=== PATIENT | female | born 1945 | race Caucasian/White ===

== ENCOUNTER → 2016-11-05 | Outpatient (REF) | payer MEDICARE, OTHER ==
[~2016-11-05] MED LIST: ALBU17IN INH; B COTAB8 PO; HYPROMELLOSE OU; LEVO88TA2 PO; LOMOTA PO; MUCI100L2 PO; MUCI600T34 PO; NEPH1CAP4 PO; NEUR100C OR; NEUR300C PO; OMEG100011 PO; POLYOPD OU; RENA800T OR; RENA800T7 PO; RENAGEL 800 MG OR; REST0.05 OU; SODIUM BICARBONATE OR; TETR250C3 PO; TYLE325T5 PO; VITACAP31 PO; [UNRECOGNIZED DRUG - CODE] IV; [UNRECOGNIZED DRUG - CODE] PO
[2016-11-05 21:05] LABS: IMMUNOGLOBULIN G 669 MG/DL (681-1648); IMMUNOGLOBULIN M 25.8 MG/DL (40-230); TOTAL PROTEIN 6.9 GM/DL (6.4-8.2)
[2016-11-07 14:00] LABS: ALBUMIN 4.28 GM/DL (3.29-5.55); ALBUMIN % 62.1 % (55.8-66.1); GAMMA GLOBULIN % 10.5 % (11.1-18.8)
[2016-11-08 00:06] LABS: BETA 2 MICROGLOBULIN 11.2 mg/L (0.6-2.4); FREE KAPPA LIGHT CHAINS SERUM 349.55 mg/L (3.30-19.40); FREE LAMBDA LIGHT CHAINS SERUM 51.8 mg/L (5.71-26.30); KAPPA/LAMBDA RATIO SERUM 6.75 (0.26-1.65)
== END ==
LOC: M LAB REF 16:54
PROVIDERS: ATTEND Internal Medicine Medical Oncology
DX: C90.01 Multiple myeloma in remission (principal)

== ENCOUNTER 2016-11-23 08:38 | Inpatient (IN) | payer MEDICARE, OTHER ==
[~2016-11-23] VITALS: Ht 162.6 cm; Wt 52.9 kg
[2016-11-23 10:36] LABS: BASO % 0.1 % (0.0-1.0); EOS # 0.1 K/mm3 (0.0-0.50); EOS % 1.9 % (0.0-3.0); LARGE UNSTAINED CELL # 0.1 K/mm3 (0.0-0.4); LARGE UNSTAINED CELL % 1.2 % (0.0-4.0); LYMPH # 0.4 K/mm3 (1.5-4.5); LYMPH % 8.7 % (24.0-44.0); MEAN CORPUSCULAR HEMOGLOBIN 35.1 pg (27.0-33.0); MEAN CORPUSCULAR HGB CONC 35.2 g/dl (32.0-36.5); MEAN CORPUSCULAR VOLUME 99.5 fl (80.0-96.0); MONO # 0.2 K/mm3 (0.0-0.8); MONO % 4.5 % (0.0-5.0); NEUTROPHILS # 3.4 K/mm3 (1.8-7.7); NEUTROPHILS % 83.7 % (36.0-66.0); PLATELET COUNT, AUTOMATED 140 k/mm3 (150-450); RED CELL DISTRIBUTION WIDTH 14.3 % (11.5-14.5); WHITE BLOOD COUNT 4.1 K/mm3 (4.0-10.0)
[2016-11-23 10:58] LABS: CALCIUM LEVEL 8.2 MG/DL (8.8-10.2); CREATININE FOR GFR 6.21 MG/DL (0.55-1.02); GLOMERULAR FILTRATION RATE 7.1 (>45); POTASSIUM SERUM 3.7 MEQ/L (3.5-5.1)
[2016-11-23] MEDS ORDERED: VITA200038 PO (12:38)
[2016-11-23] MEDS ORDERED: LEVO75TA4 PO (12:38)
[2016-11-23] MEDS ORDERED: KION15SU PO (12:38)
[2016-11-23] MEDS ORDERED: NORC5TAB PO (12:38)
[2016-11-23] MEDS ORDERED: RENV2TAB PO (12:38)
[2016-11-23] MEDS ORDERED: REST0.05 OU (12:38)
[2016-11-23] MEDS ORDERED: SOD POLYSTYRENE SULFONATE SUSP 15 GM/60 ML UD PO PRN (13:00)
[2016-11-23] MEDS ORDERED: ACETAMINOPHEN 325 MG TAB As Ordered ONE (13:39)
--- NOTE | 2016-11-23 13:43 | EDDOCDS ---
Nurse's Notes [facility] Name: Yoana Escobedo Age: 71 yrs Sex: Female : 1945 Arrival Date: 11/23/2016 Time: 08:38 Bed 7 Private MD: Diagnosis: End stage renal disease;Influenza due to other identified influenza virus;Weakness Presentation: 11/23 08:42 Presenting complaint: Patient states: weakness since Friday. skipped dialysis pml yesterday, wasn't feeling well - when pt called off of dialysis was told she should be seen in ED - pt refused. Suicide/Homicide risk assessment- the patient denies having any suicidal and/or homicidal ideations and does not present with any other emotional, behavioral or mental health complaints. Transition of care: patient was not received from another setting of care. 08:42 Acuity: LUIGI Level 3 pml 08:42 Method Of Arrival: Ambulance pml 08:49 Adult Sepsis Screening: The patient does not have new or worsening altered mentation. pml Patient's respiratory rate is less than 22. Systolic blood pressure is greater than 100. Patient has a qSOFA score of 0- Negative Sepsis Screen. 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 Triage Assessment: 08:51 General: Appears in no apparent distress, Behavior is appropriate for age, cooperative. pml Pain: Location: chest Pain currently is 5 out of 10 on a pain scale. The patient is triaged at the bedside. See Assessment in Nurses Notes section of ED record. Neurological: Level of Consciousness is awake, alert, Oriented to person, place, time. Cardiovascular: Capillary refill < 3 seconds Rhythm is sinus rhythm No ectopy. Respiratory: Airway is patent Respiratory effort is even, unlabored, Breath sounds are coarse Breath sounds with rhonchi in right posterior lower lobe Reports cough that is non-productive, hacking, persistent. GI: Abdomen is non- distended Ileostomy site is clean and dry. Ostomy appliance is intact. Derm: Skin is pink, warm & dry. Historical: - Allergies: Vancomycin; - Home Meds: 1. Renvela 800 mg oral tab 4 tabs 3 times per day 2. [place] 5-325 mg Oral tab 1 tab every 6 hours 3. levothyroxine 50 mcg Oral tab 1 tab once daily 4. Vitamin D3 2,000 unit oral tab daily ran out 5. Restasis 0.05 % ophthalmic dpet 1 drop 2 times per day - PMHx: Crohn's; ESRD; Hypothyroidism; Melanoma Rigth Arm; Multiple Myeloma; Rotator cuff injury; - PSHx: Colon Resection; Appendectomy; Ileostomy Construction; Dialysis Graft Construction, Arm; stem cell transplant; - Social history: Smoking status: Patient states former smoker of tobacco. No barriers to communication noted, The patient speaks fluent Maltese, Speaks appropriately for age. - Family history: Not pertinent. - : The pt / caregiver states he / she is not on anticoagulants. Home medication list is obtained from the patient. - Exposure Risk Screening:: None identified. Screenin:54 Screening information is obtained from the patient. Fall risk: No risks identified. pml Assistance ADL's: requires no assistance with activities of daily living. Abuse/DV Screen: The patient / caregiver reports he/she is: not in a situation that causes fear, pain or injury. Nutritional screening: No deficits noted. Advance Directives: Currently, there is no health care proxy. home support is adequate. Assessment: 10:29 General: Appears in no apparent distress, comfortable, Behavior is appropriate for age, pml cooperative. Pain: Location: chest Pain currently is 5 out of 10 on a pain scale. Neurological: Level of Consciousness is awake, alert, Oriented to person, place, time. Cardiovascular: Capillary refill < 3 seconds. Cardiovascular: Rhythm is sinus rhythm No ectopy. Respiratory: Airway is patent Respiratory effort is even, unlabored. Respiratory: Reports cough that is non-productive. GI: Abdomen is non- distended. Derm: Skin is pink, warm & dry. 11:46 Adult Sepsis Screening: The patient does not have new or worsening altered mentation. pml Patient's respiratory rate is less than 22. Systolic blood pressure is greater than 100. Patient has a qSOFA score of 0- Negative Sepsis Screen. General: resting on stretcher, eyes closed, resps easy and unlabored, skin p/w/d. sinus rhythm without ectopy. . 12:30 General: resting on stretcher resps easy and unlabored, skin p/w/d sinus rhythm on pml monitor without ectopy. voices no complaints. IVF infusing as ordered. 13:34 General: Appears in no apparent distress, comfortable, Behavior is appropriate for age, pml cooperative. Pain: Location: chest Pain currently is 5 out of 10 on a pain scale. Neurological: Level of Consciousness is awake, alert, Oriented to person, place, time. Cardiovascular: Capillary refill < 3 seconds. Respiratory: Airway is patent Respiratory effort is even, unlabored. GI: Abdomen is non- distended. Derm: Skin is pink, warm & dry. Vital Signs: 08:47 BP 130 / 61 (auto/); pml 08:49 Pulse 86 MON; Pulse Ox 98% ; pml 08:51 BP 130 / 61; Pulse 82; Resp 20; Temp 98.6(O); Pulse Ox 100% on R/A; Weight 53.98 kg pml (R); Height 5 ft. 4 in. (162.56 cm); Pain 5/10; 09:17 Pulse 76 MON; Pulse Ox 94% ; pml 09:17 BP 108 / 53 (auto/); pml 09:32 BP 104 / 55 (auto/); pml 09:33 Pulse 76 MON; Pulse Ox 96% ; pml 10:53 BP 112 / 54 Supine; Pulse 79; pml 10:53 BP 117 / 56 Sitting; Pulse 84; pml 10:53 BP 113 / 56 Standing; Pulse 89; pml 11:07 Pulse 76 MON; Pulse Ox 93% ; pml 11:07 BP 119 / 57 (auto/); pml 11:22 Pulse 86 MON; Pulse Ox 94% ; pml 11:22 BP 120 / 60 (auto/); pml 11:37 Pulse 78 MON; Pulse Ox 92% ; pml 11:37 BP 110 / 54 (auto/); pml 11:52 BP 113 / 56 (auto/); pml 11:53 Pulse 78 MON; Pulse Ox 92% ; pml 12:07 BP 123 / 58 (auto/); pml 12:08 Pulse 84 MON; Pulse Ox 94% ; pml 12:22 Pulse 80 MON; Pulse Ox 96% ; pml 12:22 BP 112 / 53 (auto/); pml 12:37 BP 129 / 62 (auto/); jo3 12:37 Pulse 80 MON; Pulse Ox 97% ; jo3 12:52 BP 121 / 56 (auto/); jo3 12:52 Pulse 76 MON; Pulse Ox 94% ; jo3 13:07 BP 132 / 61 (auto/); jo3 13:07 Pulse 80 MON; Pulse Ox 96% ; jo3 13:22 BP 121 / 58 (auto/); jo3 13:22 Pulse 82 MON; Pulse Ox 94% ; jo3 13:34 Temp 101.4; pml 08:51 Body Mass Index 20.43 (53.98 kg, 162.56 cm) pml Vitals: 08:51 Log In Time N/A - ambulance arrival. pml ED Course: 08:39 Patient visited by Nidia Orosco PCA. ar3 08:39 Patient moved to Waiting ar3 08:39 Patient moved to 7 ar3 08:44 Triage Initiated pml 08:50 Daja Rivers DO is PHCP. jo4 08:50 Jann Hanna MD is Attending Physician. jo4 08:54 Patient visited by Jesusita Wong RN. pml 09:45 Patient visited by Daja Rivers DO. jo4 09:45 Patient visited by Daja Rivers DO. jo4 10:22 [facility] Payment Agreement was scanned into [employer] and attached to record. lg 10:30 Patient visited by Jesusita Wong RN. pml 10:30 Patient visited by Jann Hanna MD. br1 10:33 EKG done. (by ED staff). Reviewed by Daja Rivers DO. nb2 10:34 Patient visited by Abeba Petit. nb2 10:37 Patient visited by Micaela Weathers PCA. rs6 10:54 The patient / caregiver is instructed regarding the plan of care and ED course. Patient pml has correct armband on for positive identification. Placed in gown. Bed in low position. Call light in reach. Side rails up X2. 10:54 Inserted peripheral IV: 20gauge IV in right hand and blood collected. Patient tolerated pml the procedure well. 10:55 Patient visited by Jesusita Wong RN. pml 10:55 -Influenza A&B Rapid Antigen - Nose Sent. pml 11:47 Patient visited by Jesusita Wong RN. pml 12:23 Rahel Vu is Hospitalizing Provider. jo4 12:31 Patient visited by Jesusita Wong RN. pml 13:29 Patient visited by Jackie Dorsey RN. jo3 13:34 No procedures done that require assistance. pml Administered Medications: 12:29 Drug: NS 0.9% 500 ml [sodium chloride 0.9 % injection solution] Route: IV; Rate: bolus; pml Site: right hand; 13:36 Follow up: IV Status: Completed infusion; IV Intake: 500ml pml 13:40 Drug: Acetaminophen 650 mg [acetaminophen 325 mg tablet (2 tabs)] Route: PO; pml Intake: 13:36 IV: 500.00ml; Total: 500.00ml. pml Order Results: Lab Order: TSH w/o Free T4; SPEC'M 11/23/16 10:27 Test: THYROID STIMULATING HORMONE; Value: 0.672; Range: 0.358-3.740; Units: uIU/ML; Status: F Lab Order: CBC with Diff; SPEC'M 11/23/16 10: Test: WHITE BLOOD COUNT; Value: 4.1; Range: 4.0-10.0; Units: K/mm3; Status: F Test: RED BLOOD COUNT; Value: 2.86; Range: 4.00-5.40; Abnormal: Below low normal; Units: M/mm3; Status: F Test: HEMOGLOBIN; Value: 10.0; Range: 12.0-16.0; Abnormal: Below low normal; Units: g/dl; Status: F Test: HEMATOCRIT; Value: 28.5; Range: 36.0-47.0; Abnormal: Below low normal; Units: %; Status: F Test: MEAN CORPUSCULAR VOLUME; Value: 99.5; Range: 80.0-96.0; Abnormal: Above high normal; Units: fl; Status: F Test: MEAN CORPUSCULAR HEMOGLOBIN; Value: 35.1; Range: 27.0-33.0; Abnormal: Above high normal; Units: pg; Status: F Test: MEAN CORPUSCULAR HGB CONC; Value: 35.2; Range: 32.0-36.5; Units: g/dl; Status: F Test: RED CELL DISTRIBUTION WIDTH; Value: 14.3; Range: 11.5-14.5; Units: %; Status: F Test: PLATELET COUNT, AUTOMATED; Value: 140; Range: 150-450; Abnormal: Below low normal; Units: k/mm3; Status: F Test: NEUTROPHILS %; Value: 83.7; Range: 36.0-66.0; Abnormal: Above high normal; Units: %; Status: F Test: LYMPH %; Value: 8.7; Range: 24.0-44.0; Abnormal: Below low normal; Units: %; Status: F Test: MONO %; Value: 4.5; Range: 0.0-5.0; Units: %; Status: F Test: EOS %; Value: 1.9; Range: 0.0-3.0; Units: %; Status: F Test: BASO %; Value: 0.1; Range: 0.0-1.0; Units: %; Status: F Test: LARGE UNSTAINED CELL %; Value: 1.2; Range: 0.0-4.0; Units: %; Status: F Test: NEUTROPHILS #; Value: 3.4; Range: 1.8-7.7; Units: K/mm3; Status: F Test: LYMPH #; Value: 0.4; Range: 1.5-4.5; Abnormal: Below low normal; Units: K/mm3; Status: F Test: MONO #; Value: 0.2; Range: 0.0-0.8; Units: K/mm3; Status: F Test: EOS #; Value: 0.1; Range: 0.0-0.50; Units: K/mm3; Status: F Test: BASO #; Value: 0.0; Range: 0.0-0.2; Units: K/mm3; Status: F Test: LARGE UNSTAINED CELL #; Value: 0.1; Range: 0.0-0.4; Units: K/mm3; Status: F Lab Order: [facility]; SPEC'M 11/23/16 10:27 Test: GLUCOSE, FASTING; Value: 97; Range: 80-110; Units: MG/DL; Status: F Test: BLOOD UREA NITROGEN; Value: 33; Range: 7-18; Abnormal: Above high normal; Units: MG/DL; Status: F Test: CREATININE FOR GFR; Value: 6.21; Range: 0.55-1.02; Abnormal: Above high normal; Units: MG/DL; Status: F Test: GLOMERULAR FILTRATION RATE; Value: 7.1; Range: >45; Abnormal: Below low normal; Status: F Test: SODIUM LEVEL; Value: 136; Range: 136-145; Units: MEQ/L; Status: F Test: POTASSIUM SERUM; Value: 3.7; Range: 3.5-5.1; Units: MEQ/L; Status: F Test: CHLORIDE LEVEL; Value: 94; Range: 98-107; Abnormal: Below low normal; Units: MEQ/L; Status: F Test: CARBON DIOXIDE LEVEL; Value: 28; Range: 21-32; Units: MEQ/L; Status: F Test: ANION GAP; Value: 14; Range: 8-16; Units: MEQ/L; Status: F Test: CALCIUM LEVEL; Value: 8.2; Range: 8.8-10.2; Abnormal: Below low normal; Units: MG/DL; Status: F Test Note: ; Units are mL/min/1.73 m2 Chronic Kidney Disease Staging per NKF: Stage I & II GFR >=60 Normal to Mildly Decreased Stage III GFR 30-59 Moderately Decreased Stage IV GFR 15-29 Severely Decreased Stage V GFR <15 Very Little GFR Left ESRD GFR <15 on PRN PHYSICAL THERAPIST Lab Order: Magnesium Level; SPEC'M 11/23/16 10:27 Test: MAGNESIUM LEVEL; Value: 2.0; Range: 1.8-2.4; Units: MG/DL; Status: F Lab Order: Cardiac Marker Panel; SPEC'M 11/23/16 10:27 Test: CPK CREATINE PHOSPHOKINASE; Value: 106; Range: 26-192; Units: U/L; Status: F Test: CK-MB VALUE MASS; Value: 1.0; Range: 0.0-3.6; Units: NG/ML; Status: F Test: MB/CK RELATIVE INDEX; Value: 0.94; Range: < OR =4; Status: F Test: TROPONIN I; Value: < 0.02; Range: < 0.10; Units: NG/ML; Status: F Test Note: ; DIAGNOSIS CRITERIA MMB ng/ml Relative Index (RI) NON-AMI < or = 5 N/A CRUZ ZONE > 5 < or = 4 AMI > 5 > 4 Lab Order: -Influenza A&B Rapid Antigen - Nose; SPEC'M 11/23/16 10:50 Test: INFLUENZA A RAPID SCR by ICA; Value: INFLUENZA A RESULTS NEGATIVE; Status: F Test: INFLUENZA A RAPID SCR by ICA; Value: Comments:; Status: F Test: INFLUENZA B RAPID SCR by ICA; Value: INFLUENZA B RESULTS POSITIVE; Abnormal: Abnormal; Status: F Test Note: ; The Influenza test is a direct rapid immunoassay for the qualitative detection of Influenza viral antigen. Cell culture (Viral Culture) testing should be considered to confirm NEGATIVE results and to assist in detecting other viruses that can provide similar clinical symptoms. Please contact the lab within 24 hours ([phone]) if confirmatory testing is desired. Outcome: 12:23 Decision to Hospitalize by Provider. jo4 13:34 Discharge Assessment: Patient awake, alert and oriented x 3. No cognitive and/or pml functional deficits noted. Patient verbalized understanding of disposition instructions. patient administered narcotics - no. The following High Risk Discharge criteria are identified: None. Admitted to Med/Surg accompanied by tech, via stretcher, on monitor, with chart. Condition: good Condition: stable. No special radiology studies were completed. Property :Personal belongings accompany Pt. 13:42 Patient left the ED. pml Signatures: Doni Pelaez Reg Reg lg Helmerci, Jennifer, RN RN jo3 Jann Hanna MD MD br1 Nidia Orosco, PUMP HOUSE OPERATOR PUMP HOUSE OPERATOR ar3 Jesusita Wong RN RN pml Micaela Weathers, PUMP HOUSE OPERATOR PUMP HOUSE OPERATOR rs6 Daja Rivers DO DO jo4 Abeba Petit2 MTDD
--- NOTE | 2016-11-23 13:43 | EDDOCDS ---
Physician Documentation [facility] Name: Yoana Escobedo Age: 71 yrs Sex: Female : 1945 Arrival Date: 11/23/2016 Time: 08:38 Bed 7 Private MD: Disposition: 11/23 13:04 I have independently interviewed and examined the patient, and I agree with the br1 investigation, diagnosis and treatment plan as documented by the Resident. Disposition: 11/23/16 12:23 Hospitalization ordered by Rahel Vu for Inpatient Admission. Preliminary diagnosis are End stage renal disease, Influenza due to other identified influenza virus, Weakness. - Bed requested for 5 Telles. - Status is Inpatient Admission. pml - Condition is Stable. - Problem is an ongoing problem. - Symptoms are unchanged. Historical: - Allergies: Vancomycin; - Home Meds: 1. Renvela 800 mg oral tab 4 tabs 3 times per day 2. [place] 5-325 mg Oral tab 1 tab every 6 hours 3. levothyroxine 50 mcg Oral tab 1 tab once daily 4. Vitamin D3 2,000 unit oral tab daily ran out 5. Restasis 0.05 % ophthalmic dpet 1 drop 2 times per day - PMHx: Crohn's; ESRD; Hypothyroidism; Melanoma Rigth Arm; Multiple Myeloma; Rotator cuff injury; - PSHx: Colon Resection; Appendectomy; Ileostomy Construction; Dialysis Graft Construction, Arm; stem cell transplant; - Social history: Smoking status: Patient states former smoker of tobacco. No barriers to communication noted, The patient speaks fluent Bolivian, Speaks appropriately for age. - Family history: Not pertinent. - : The pt / caregiver states he / she is not on anticoagulants. Home medication list is obtained from the patient. - Exposure Risk Screening:: None identified. Vital Signs: 08:47 BP 130 / 61 (auto/); pml 08:49 Pulse 86 MON; Pulse Ox 98% ; pml 08:51 BP 130 / 61; Pulse 82; Resp 20; Temp 98.6(O); Pulse Ox 100% on R/A; Weight 53.98 kg / pml 119.01 lbs (R); Height 5 ft. 4 in. (162.56 cm); Pain 5/10; 09:17 Pulse 76 MON; Pulse Ox 94% ; pml 09:17 BP 108 / 53 (auto/); pml 09:32 BP 104 / 55 (auto/); pml 09:33 Pulse 76 MON; Pulse Ox 96% ; pml 10:53 BP 112 / 54 Supine; Pulse 79; pml 10:53 BP 117 / 56 Sitting; Pulse 84; pml 10:53 BP 113 / 56 Standing; Pulse 89; pml 11:07 Pulse 76 MON; Pulse Ox 93% ; pml 11:07 BP 119 / 57 (auto/); pml 11:22 Pulse 86 MON; Pulse Ox 94% ; pml 11:22 BP 120 / 60 (auto/); pml 11:37 Pulse 78 MON; Pulse Ox 92% ; pml 11:37 BP 110 / 54 (auto/); pml 11:52 BP 113 / 56 (auto/); pml 11:53 Pulse 78 MON; Pulse Ox 92% ; pml 12:07 BP 123 / 58 (auto/); pml 12:08 Pulse 84 MON; Pulse Ox 94% ; pml 12:22 Pulse 80 MON; Pulse Ox 96% ; pml 12:22 BP 112 / 53 (auto/); pml 12:37 BP 129 / 62 (auto/); jo3 12:37 Pulse 80 MON; Pulse Ox 97% ; jo3 12:52 BP 121 / 56 (auto/); jo3 12:52 Pulse 76 MON; Pulse Ox 94% ; jo3 13:07 BP 132 / 61 (auto/); jo3 13:07 Pulse 80 MON; Pulse Ox 96% ; jo3 13:22 BP 121 / 58 (auto/); jo3 13:22 Pulse 82 MON; Pulse Ox 94% ; jo3 13:34 Temp 101.4; pml 08:51 Body Mass Index 20.43 (53.98 kg, 162.56 cm) pml MDM: 10:14 Orthostatic VS ordered. jo4 10:15 TSH w/o Free T4 Ordered. EDMS 10:15 CBC with Diff Ordered. EDMS 10:15 BMP Ordered. EDMS 10:15 Magnesium Level Ordered. EDMS 10:19 IV Saline Lock ordered. br1 10:19 Financial registration complete. lg 10:22 Cardiac Marker Panel Ordered. EDMS 10:22 Chest, 2 View (pa\E\lat) Ordered. EDMS 10:22 ECG WITH READING ER PHYS+CARDIAG ordered. EDMS 10:22 [facility] Payment Agreement was scanned into [employer] and attached to record. lg 10:32 UA Ordered. EDMS 10:32 Urine Culture Ordered. EDMS 10:33 Obtain sample by nasopharyngeal swab ordered. jo4 10:34 -Influenza A&B Rapid Antigen - Nose Ordered. EDMS 11:13 Cardiac Marker Panel Reviewed. jo4 11:13 CBC with Diff Reviewed. jo4 11:14 BMP Reviewed. jo4 11:14 TSH w/o Free T4 Reviewed. jo4 11:14 Magnesium Level Reviewed. jo4 11:15 -Influenza A&B Rapid Antigen - Nose Reviewed. jo4 12:01 BED REQUEST+ADM ordered. EDMS 12:22 NS 0.9% 500 ml IV at bolus once ordered. jo4 13:13 PHYSICAL THERAPY EVAL & TREAT ordered. EDMS 13:13 Admission / Observation Status ordered. EDMS 13:40 Acetaminophen Tablet 650 mg PO once ordered. pml Administered Medications: 12:29 Drug: NS 0.9% 500 ml [sodium chloride 0.9 % injection solution] Route: IV; Rate: bolus; pml Site: right hand; 13:36 Follow up: IV Status: Completed infusion; IV Intake: 500ml pml 13:40 Drug: Acetaminophen 650 mg [acetaminophen 325 mg tablet (2 tabs)] Route: PO; pml Signatures: Dispatcher [employer] EDMS Doni Pelaez, Reg Reg lg Jann Hanna MD MD br1 Jackie Peters RN RN jc4 Jesusita Wong RN RN pml Daja Rivers DO DO jo4 The chart was reviewed and I authenticate all verbal orders and agree with the evaluation and treatment provided.Attachments: 10:22 [facility] Payment Agreement lg MTDD
--- NOTE | 2016-11-23 14:50 | CR.PDOC ---
[facility] Consultation Consultation DATE OF ADMISSION: 11/23/2016 DATE OF CONSULTATION: 11/23/2016 REQUESTING PROVIDER: Dr. Rahel Vu REASON FOR CONSULTATION/CHIEF COMPLAINT: Management of end-stage renal disease on hemodialysis HISTORY OF PRESENT ILLNESS: Ms. Escobedo is a 71 year old female with past medical history significant for end-stage renal disease on hemodialysis Friday, Friday and Friday, multiple myeloma status post stem cell transplant , history of malignant melanoma removed from right arm, Crohn's disease status post colectomy and ileostomy, osteoarthritis, secondary hyperparathyroidism, anemia of chronic renal disease, chronic metabolic acidosis due to high output ileostomy, hypothyroidism, vitamin D deficiency who presents to the emergency department with complaints of weakness. Patient reports that her symptoms started this past Friday. She reports that she feels weak, tired and has decreased appetite. At home, she had a temperature of 102.3 which spontaneously resolved on its own without any medication. She also admits to dry cough and chest discomfort secondary to her cough. She reports decreased oral intake. She reports that 2 of her grandchildren were sick and she missed hemodialysis on Friday due to feeling ill. She reports that she got a flu shot and received a pneumonia shot just last week. Patient was found to have influenza and is being admitted into the hospital. Nephrology consult was requested secondary to patient needing maintenance hemodialysis. PAST MEDICAL HISTORY: 1. End-stage renal disease on hemodialysis Friday, Friday and Friday 2. History of multiple myeloma status post stem cell transplant, follows with Dr. Saab every 8 weeks 3. History of malignant melanoma, status post removal from right upper extremity 4. History of Crohn's disease status post colectomy and ileostomy 5. Secondary hyperparathyroidism 6. Anemia and chronic renal disease 7. History of osteoarthritis 8. History of chronic metabolic acidosis due to high output ileostomy 9. Hypothyroidism 10. Vitamin D deficiency PAST SURGICAL HISTORY: 1. Left upper extremity graft, in 2007 2. History of PermCath placement and removal 3. Ileostomy in 1980 4. Appendectomy 5. Stem cell transplant 6. Melanoma removal of right arm ALLERGIES: Vancomycin HOME MEDICATIONS: Please see below. SOCIAL HISTORY: She is a former smoker, quit in 1980. She denies any alcohol use or illicit drug use. She lives with her daughter and son-in-law. REVIEW OF SYSTEMS: CONSTITUTIONAL: Positive for fever, chills, weakness and fatigue. HEENT: No headache, lightheadedness, dizziness. No acute changes to vision or hearing. CARDIOVASCULAR: Admits to chest pressure with cough. No shortness of breath with exertion. No chronic lower extremity edema. No paroxysmal nocturnal dyspnea or orthopnea. RESPIRATORY: Positive for dry cough. No shortness of breath. No hemoptysis. GENITOURINARY: Admits to decreased urinary output. No dysuria or hematuria. MUSCULOSKELETAL: Has history of osteoarthritis and multiple myeloma. No acute unusual muscle or joint pains. GASTROINTESTINAL: No nausea, vomiting, diarrhea, abdominal pain. No hematochezia or melena. SKIN: No unusual rashes or skin lesions. NEUROLOGICAL: No syncope. Paresthesias. No history of CVA. ENDOCRINE: No history of diabetes or thyroid disorder. HEMATOLOGIC/LYMPHATIC: Excessive bruising or bleeding disorder. PHYSICAL EXAMINATION: VITAL SIGNS: Temperature 98.6, pulse 78, pressure 113/56, oxygen saturation 92% on room air, weight 53.98 KG, height 5 feet 4 inches GENERAL APPEARANCE: Alert and oriented 3. In no acute distress. HEENT: Normocephalic, atraumatic. Extraocular muscles are intact. Pupils are equally round and reactive to light. No scleral icterus. Dry mucosa. NECK: Supple. Trachea is midline. Mildly distended jugular veins. HEART: Normal S1, S2. Regular rate and rhythm. I did not appreciate a murmur. LUNGS: Positive for faint crackles. No wheezing appreciated. ABDOMEN: Soft, nontender, nondistended. Bowel sounds are present. She has an ileostomy in the right quadrant without any stool present in the bag. EXTREMITIES: No cyanosis or lower extremity edema. Positive pedal pulses bilaterally. NEUROLOGIC: No focal deficits. Cranial nerves II through XII are grossly intact. Motor and sensation intact. PSYCHIATRIC: Normal mood and affect. LABORATORY DATA: 11/23/16 10:27 Red Blood Count 2.86 L, Mean Corpuscular Volume 99.5 H, Mean Corpuscular Hemoglobin 35.1 H, Mean Corpuscular Hemoglobin Concent 35.2, Red Cell Distribution Width 14.3, Anion Gap 14, Carbon Dioxide Level 28, Calcium Level 8.2L, Creatine Kinase MB 1.0, Creatine Kinase MB Relative Index 0.94, Glomerular Filtration Rate 7.1L, Magnesium Level 2.0, Thyroid Stimulating Hormone (TSH) 0.672, Total Creatine Kinase 106, Troponin I < 0.02 MICROBIOLOGY: Influenza B positive. IMAGING: Chest x-ray done on 11/23 shows hyperinflation compatible with COPD, small amount of fibrotic scarring in right lower lobe, surgical clips in right axilla, left axillary intravascular stent, diffuse osteopenia with old compression fractures ASSESSMENT/PLAN: 1. End-stage renal disease on hemodialysis Friday, Friday and Friday. Patient missed her Friday session due to being ill. She will be dialyzed today. She usually receives maintenance dialysis without significant fluid removal. She will be given a 500ml bolus in the emergency department. We will give her another liter during dialysis. Electrolytes are stable and volume status will be monitored. 2. Influenza B. Supportive care, being managed by primary team. 3. Anemia and chronic renal failure. Hemoglobin is currently 10, which is right at target. 4. History of chronic metabolic acidosis due to high output ileostomy. Her bicarbonate is stable at this time. 5. Secondary hyperparathyroidism. Patient is on Renvela 3 times daily. 6. History of Crohn disease status post ileostomy. Output should be monitored as she appears dry. She will be given fluids. 7. History of multiple myeloma status post stem cell transplant. She follows with Dr. Saab about every 8 weeks. 8. Vitamin D deficiency. Patient is on vitamin supplementation. Thank you for the consultation and allowing us to participate in the care of Ms. Escobedo. We will continue to follow along with you. Allergies Coded Allergies: Vancomycin (Verified Allergy, Severe, RASH/ITCHING, 10/17/13) Home Medications Scheduled (Restasis) 0.05 % Emu 1 DROP OU BID (Reported) Cholecalciferol (Vitamin D-3) 2,000 Unit Tab 2,000 UNIT PO DAILY (Reported) Levothyroxine Sodium (Synthroid) 75 Mcg Tab 75 MCG PO DAILY (Reported) Sevelamer Carbonate (Renvela) 800 Mg Tab 4 TABS PO TID (Reported) Scheduled PRN Acetaminophen/Hydrocodone ([place] 5-325 mg) 1 Tab Tab 1 TAB PO Q6H PRN PRN PAIN ( Reported) Sodium Polystyrene Sulfonate (Kionex) 15 Gm/60 Ml Teena 15 GM PO ASDIRECTED PRN PRN HIGH POTASSIUM (Reported) GME ATTESTATION GME ATTESTATION My preceptor for this patient encounter was physically present in the building during the encounter and was fully available. As needed, all aspects of the patient interview, examination, medical decision making process, and medical care plan development were reviewed and approved by the preceptor. Preceptor is aware and concurs with the plan as stated in the body of this note and will attest to such by his/her cosignature. RENE HUDSON DO Nov 23, 2016 14:50
[2016-11-23] MEDS: NORCO, ANEXSIA 5/325MG TABLET (HYDROcodone/ACETAMINOPHEN) PO PRN (17:57)
[2016-11-23 18:00] VITALS: BP 121/59
[2016-11-23] MEDS ORDERED: (RENVELA) SEVELAMER **CARBONate** 800 MG TAB PO SCH (18:00)
[2016-11-23] MEDS: (RENVELA) SEVELAMER **CARBONate** 800 MG TAB PO SCH (18:31)
--- NOTE | 2016-11-23 19:31 | HPE ---
DATE OF ADMISSION: 11/23/2016 PRIMARY CARE PROVIDER: The patient goes to the [facility] ([place]). The patient also sees Dr. Mckenzie, Dr. Palacios, Dr. Granger and Dr. Licona. REASON FOR ADMISSION: Generalized weakness. HISTORY OF PRESENT ILLNESS: The patient is a 71-year-old female who presented to the emergency room complaining of weakness that started last Friday. She stated she was in bed all day on Friday, went to dialysis on Friday, came back, was still feeling generalized fatigue, went back to bed all of , and yesterday she missed her dialysis. She was instructed by the dialysis center to present to the emergency room. However, she did not wish to do so. This morning she woke up feeling weak still so she presented to the emergency room. In the emergency room, the patient was found to have positive influenza B test; however, since her symptoms started on Friday, she was not given Tamiflu at this time. Dr. Nelson was contacted from the emergency room, and he agreed to see the patient and dialyze her today. The patient was admitted under hospitalist service. She stated she has been having a dry cough and feeling generalized weakness. Denied any fevers or chills. Denied any nausea, vomiting or diarrhea. Denied any chest pain or shortness of breath. REVIEW OF SYSTEMS: [id number] review of systems obtained all of which was negative except for those mentioned above. PAST MEDICAL HISTORY: Significant for 1. Crohn's. 2. End-stage renal disease on hemodialysis. 3. Hypothyroidism. 4. Right melanoma in the right arm. 5. Multiple myeloma. 6. Rotator cuff injury. PAST SURGICAL HISTORY: Significant for 1. Colon resection. 2. Appendectomy. 3. Ileostomy bag. 4. Dialysis graft. 5. Stem cell transplant. SOCIAL HISTORY: The patient lives with her daughter. She used to smoke but quit 36 years ago and denies alcohol use. ALLERGIES: VANCOMYCIN - reaction itching and rash. HOME MEDICATIONS: - Renvela 800 mg three times a day - [place] 5/325 one tablet every six hours as needed for pain - levothyroxine 50 mcg by mouth daily - vitamin D 2000 units daily - Restasis one drop two times a day in each eye FAMILY HISTORY: Noncontributory. PHYSICAL FINDINGS: VITAL SIGNS: Blood pressure 130/61, pulse 86, respiratory rate 20, temperature 98.6, pulse oximetry 98% on room air. HEENT: Pupils equal, round, reactive to light and accommodation. NECK: Supple. No jugular venous distention (JVD). LUNGS: Clear to auscultation bilaterally. ABDOMEN: Soft, nontender, nondistended. CARDIAC: Regular rate and rhythm. ABDOMEN: Soft, nontender, nondistended. Ileostomy bag in place. No erythema or skin breakdown around the ileostomy site. EXTREMITIES: No clubbing, cyanosis or edema. NEUROLOGIC: Cranial nerves II-XII grossly intact. No focal deficits. LABORATORY FINDINGS: WBC 4.1, hemoglobin 10, hematocrit 28.8, platelet count 140. Sodium 136, potassium 3.4, chloride 94, BUN 33, creatinine 6.21, fasting glucose 97, calcium 8.2, magnesium 2. Troponin less than 0.02. TSH 0.672. IMAGING: Chest x-ray was done in the emergency room which showed hyperinflation compatible with COPD. Small amount of fibrotic scarring seen in the right lower lobe. Diffuse osteopenia, old compression fracture and prior kyphosis and history of multiple myeloma. ASSESSMENT AND PLAN: 1. Generalized fatigue, likely secondary to influenza. The patient is positive for flu B; is currently out of the treatments window for Tamiflu. We will continue to monitor. 2. History of end-stage renal disease. The patient missed dialysis yesterday. Her schedule is Friday, Friday, Friday. She went to dialysis on Friday but did not go on Friday. Dr. Nelson agreed to see the patient and will dialyze her today. 3. Positive influenza B 4. Hypothyroidism. Continue the patient's home medication. 5. History of multiple myeloma diagnosed in 2007. She underwent stem cell transplant and has been in remission ever since. 6. History of Crohn's disease. The patient follows up with Dr. Licona about once a year. She has an ileostomy bag with no dysfunction at this time. 7. History of rotator cuff injury, currently stable. 8. Deep venous thrombosis (DVT) prophylaxis; sequential compression devices (SCDs) while in bed.
[2016-11-23 22:00] VITALS: BP 110/64
--- NOTE | 2016-11-23 22:51 | REP ---
PA and lateral chest 11/23/2016 Indication: Cough Comparison: PA and lateral chest 08/16/2015 Findings: Cardiac silhouette is of normal size. Atherosclerotic changes are noted in the aortic arch. There is mild hyperinflation and flattening of diaphragms consistent with COPD. Nipple shadows are projected over lower lung george bilaterally. Multiple surgical clips are present within the right axilla. Axillary vascular stent is noted without change. There is diffuse osteopenia. Patient has had previous kyphoplasties at approximately T11, T12, L1 Impression: Hyperinflation compatible with COPD. Small amount of fibrotic scarring is seen within the right lower lobe. Surgical clips in right axilla. Left axillary intravascular stent Diffuse osteopenia with old compression fractures and prior kyphoplasties as above. The patient has history of multiple myeloma. Signed by Radha Fournier MD 11/23/2016 10:43 P
[2016-11-24] MEDS: LEVOTHYROXINE 0.075 MG TAB (75 MCG) PO SCH (05:40)
[2016-11-24 06:00] VITALS: BP 108/54
[2016-11-24] MEDS: ACETAMINOPHEN TAB 650MG DOSE (2X325MG) PO PRN ×2 (06:45→14:32)
[2016-11-24 06:52] LABS: BASO % 0.2 % (0.0-1.0); EOS % 0.6 % (0.0-3.0); LARGE UNSTAINED CELL # 0.1 K/mm3 (0.0-0.4); LARGE UNSTAINED CELL % 1.4 % (0.0-4.0); LYMPH # 0.6 K/mm3 (1.5-4.5); LYMPH % 13.3 % (24.0-44.0); MEAN CORPUSCULAR HEMOGLOBIN 34.8 pg (27.0-33.0); MEAN CORPUSCULAR HGB CONC 34.8 g/dl (32.0-36.5); MONO # 0.1 K/mm3 (0.0-0.8); MONO % 3.3 % (0.0-5.0); NEUTROPHILS # 3.4 K/mm3 (1.8-7.7); NEUTROPHILS % 81.2 % (36.0-66.0); PLATELET COUNT, AUTOMATED 124 k/mm3 (150-450); RED CELL DISTRIBUTION WIDTH 14.7 % (11.5-14.5); WHITE BLOOD COUNT 4.2 K/mm3 (4.0-10.0)
[2016-11-24 06:55] LABS: ALBUMIN 3.2 GM/DL (3.2-5.2); ALBUMIN/GLOBULIN RATIO 0.97 (1.00-1.93); BILIRUBIN,TOTAL 1.1 MG/DL (0.2-1.0); CALCIUM LEVEL 8.6 MG/DL (8.8-10.2); CREATININE FOR GFR 4.16 MG/DL (0.55-1.02); GLOMERULAR FILTRATION RATE 11.3 (>45); MAGNESIUM LEVEL 1.8 MG/DL (1.8-2.4); TOTAL PROTEIN 6.5 GM/DL (6.4-8.2)
[2016-11-24] MEDS ORDERED: OSELTAMIVIR 6 MG/ML 60ML SUSP PO SCH ×2 (07:30→09:15)
[2016-11-24] MEDS ORDERED: guaiFENesin SYRUP 200 MG/10 ML UDC PO PRN (08:00)
[2016-11-24] MEDS: guaiFENesin ER 600 MG TAB PO SCH ×2 (08:28→21:12)
[2016-11-24] MEDS: (RENVELA) SEVELAMER **CARBONate** 800 MG TAB PO SCH ×3 (08:28→18:04)
[2016-11-24] MEDS: AZITHROMYCIN INJ 500 MG, VIAL MATE ADAPTER 1 EACH in D5W 250 ML IV SCH (08:28)
[2016-11-24] MEDS: VITAMIN D 1,000 INTERNATIONAL UNITS TABLET PO SCH (08:28)
[2016-11-24] MEDS: HEPARIN SOD (PORCINE) 5000 UNITS/ML VIAL SQ SCH ×2 (08:29→21:12)
[2016-11-24] MEDS ORDERED: OSELTAMIVIR 6 MG/ML 60ML SUSP PO ONE (09:00)
[2016-11-24] MEDS: cefTRIAXone SOD 1 GM in D5W MINI-BAG PLUS 50 ML IV SCH (10:08)
--- NOTE | 2016-11-24 13:00 | ECGEPIP ---
Stationary ECG Study [facility] - ED Test Date: 2016-11-23 Pat Name: AD JOHNSTON Department: Room: - Gender: F Multigrapher: aldo : 1945 Requested By: EUGENIO ANDREW Order Number: [id number] Reading MD: Peyton Vickers Measurements Intervals [place] Rate: 72 P: 48 WA: 120 QRS: 63 QRSD: 89 T: 60 QT: 410 QTc: 451 Interpretive Statements SINUS RHYTHM NSTTW ABNORMALITY INCREASED RATE 06/24/16 Electronically Signed On 11-24-2016 13:00:21 EST by Peyton Vickers
--- NOTE | 2016-11-24 13:46 | IPN ---
DATE OF SERVICE: 11/24/2016 SUBJECTIVE: The patient was seen and examined at the bedside today in the morning. She continues to have a cough with some shortness of breath. She was just started on antibiotics this morning. The patient got the hemodialysis done yesterday; and because of her volume depletion and dehydration, because of sickness and history of high-output ileostomy, she was given 1 liter of intravenous (IV) fluid during the hemodialysis procedure. Hemodialysis just done for clearance. Last 24 hour urines were noted. The patient continues to have fever spikes at this time, as well. REVIEW OF SYSTEMS: The patient continues to complain of fever with chills and rigors. She continues to have cough with phlegm and some shortness of breath. She denies any chest pain. She denies any pain abdomen. She denies any ileostomy diarrhea. She does report some muscle aches and pains. The rest of review of systems is negative. OBJECTIVE: Vital signs: Temperature is 102.2 degree Fahrenheit, blood pressure is 108/54, pulse is 94, respiratory rate of 18, saturating 91% on room air. Intake and output: Urine output recorded as 150 mL yesterday, and her stool output was 300 mL today. Her weight in the bed scale is 54.8 kg. PHYSICAL EXAMINATION: General: The patient is awake, alert, oriented times three, lying in bed, in mild respiratory distress. Head and neck examination: Extraocular muscles intact. Pupils equally round and reactive to light. Mucous membranes are moist. Neck is supple. There is no jugular venous distention (JVD). Cardiovascular: S1, S2, regular rate. No murmur, rub, and gallop. Respiratory: The patient has mild inspiratory crackles at the bases. Otherwise, no significant rales or rhonchi. Bilateral equal air entry. Abdomen: Soft, positive bowel sounds, nontender. She has a right lower quadrant ileostomy and some liquid stools are present in the ileostomy at this time. Extremities: No clubbing or cyanosis. No edema of the bilateral lower extremities. Pulses are 2+. Central nervous system (NEW[employer]ENDOR): Power is 5/5 in all extremities at this time. There is no focal neurological deficit. Psychiatric: Normal mood and affect. LABORATORY REVIEW: CBC showed a WBC of 4.2, hemoglobin 9.4, platelets are 124. BMP showed a sodium of 136, potassium 4, chloride 97, bicarbonate 29, BUN 17, creatinine 4.1, albumin is 3.2. MICROBIOLOGY: Blood culture is pending. Urine culture is negative. Nasopharynx rapid flu test came back positive for influenza B. CURRENT MEDICATIONS: The patient's medications include: - intravenous (IV) azithromycin - IV Rocephin - Tylenol as needed - Mucinex as needed - heparin subcutaneous - levothyroxine 75 mcg by mouth daily - Tamiflu 30 mg by mouth once and then 30 mg by mouth with each dialysis - Renvela 3.2 grams by mouth with meals - vitamin D 2000 units by mouth daily ASSESSMENT: Ms. Escobedo is a 71-year-old female with past medical history of end-stage renal disease on hemodialysis every Friday, Friday, Friday, who was admitted yesterday because of pneumonia secondary to influenza B. Nephrology service following the patient for management of end-stage renal disease. PLAN: 1. Influenza B pneumonia. The patient is still having fever spikes and severe cough. She was started on Tamiflu 30 mg by mouth. One dose was given. She has also been empirically started on Rocephin and azithromycin for coverage of bacterial infection. Continue the current dose at this time. 2. End-stage renal disease, on hemodialysis. The patient's regular hemodialysis days are Friday, Friday, and Friday. She missed the Friday dialysis. She got her dialysis done yesterday. Next hemodialysis session will be tomorrow. 3. Anemia in end-stage renal disease. The patient's hemoglobin is 9.4 at this time. She will get a dose of Aranesp with hemodialysis tomorrow. 4. Chronic kidney disease, mineral bone disease. Continue current dose of Renvela three times a day with meals for hyperphosphatemia. 5. History of Crohn disease, status post ileostomy. The patient does not have any ileostomy diarrhea or higher output from the ileostomy at this time. She was dehydrated and volume depleted. She was given intravenous (IV) fluids hydration yesterday, and her stool output is normal at this time.
[2016-11-24 14:00] VITALS: BP 78/30
[2016-11-24 14:37] VITALS: BP 110/42
[2016-11-24] MEDS: [UNRECOGNIZED DRUG - REMARK] XX SCH (15:29)
--- NOTE | 2016-11-24 20:51 | IPN ---
DATE: 11/24/2016 Patient is seen and examined. Febrile overnight. Continues to have significant cough productive of phlegm, white and yellow, with fevers. Denies any chest pain, pressure, or discomfort. Denies any nausea or vomiting. VITAL SIGNS: Maximum temperature (T-max) 102.9, current temperature (T-current) 99.7, pulse 80, respirations 16, blood pressure 110/42, pulse oximetry 95% on room air. LABORATORY DATA: WBC 12.2, hemoglobin and hematocrit 9.4/26.9, platelets 124. Sodium 136, potassium 4, bicarbonate 29, chloride 97, BUN 17, creatinine 4.16. Influenza B positive. PHYSICAL EXAMINATION: GENERAL: Patient comfortable with cough productive of mucus, yellow and milky, in no acute distress. HEENT: Normocephalic, atraumatic. Pupils equal, round, and reactive. NECK: Supple. PULMONARY: Bilateral rhonchi. CARDIAC: Regular rate and rhythm. Normal S1, S2. ABDOMEN: Soft, nontender, nondistended. Ileostomy bag in place. No erythema or skin breakdown. EXTREMITIES: No edema bilateral lower extremities. ASSESSMENT AND PLAN: This is a 71-year-old female patient with underlying medical history of Crohn's disease, end-stage renal disease on hemodialysis, hypothyroidism, melanoma of right arm, multiple myeloma, rotator cuff injury, with colostomy, admitted for influenza with possible overlying superimposed community-acquired bacterial pneumonia. 1. Influenza with possible overlying superimposed community-acquired bacterial pneumonia. Tamiflu. Case discussed with Dr. Nelson, service advisor. Given patient's condition quite severe, will still treat with Tamiflu even though patient was outside the window. Empirically started Rocephin and azithromycin. Methicillin-resistant Staphylococcus aureus (MRSA) screening. Continue to follow C-reactive protein. 2. End-stage renal disease. Patient missed dialysis. Had dialysis on Friday. Will resume Friday, Friday, Friday dialysis schedule. Nephrology consulted. 3. Hypothyroidism. Continue home medication. 4. History of multiple myeloma 2007. As per patient, underwent stem cell transplant and has been in remission ever since. Will continue to follow. 5. Crohn's disease. Patient follows with Dr. Licona. Has an ileostomy bag with no dysfunction at this time. Outpatient followup. 6. History of rotator cuff injury. Currently stable. 7. Deep venous thrombosis (DVT) prophylaxis. Heparin subcutaneous. DISPOSITION PLANNING: Pending clinical improvement, physical therapy.
[2016-11-24] MEDS: NORCO, ANEXSIA 5/325MG TABLET (HYDROcodone/ACETAMINOPHEN) PO PRN (21:13)
[2016-11-24 22:00] VITALS: BP 104/52
[2016-11-25] MEDS: LEVOTHYROXINE 0.075 MG TAB (75 MCG) PO SCH (05:36)
[2016-11-25 06:00] VITALS: BP 92/48
[2016-11-25 06:43] LABS: BASO % 0.1 % (0.0-1.0); EOS % 0.9 % (0.0-3.0); LARGE UNSTAINED CELL # 0.1 K/mm3 (0.0-0.4); LARGE UNSTAINED CELL % 2.1 % (0.0-4.0); LYMPH % 20.5 % (24.0-44.0); MEAN CORPUSCULAR HEMOGLOBIN 34.8 pg (27.0-33.0); MEAN CORPUSCULAR HGB CONC 34.8 g/dl (32.0-36.5); MEAN CORPUSCULAR VOLUME 100.1 fl (80.0-96.0); MONO # 0.2 K/mm3 (0.0-0.8); MONO % 3.1 % (0.0-5.0); NEUTROPHILS # 3.6 K/mm3 (1.8-7.7); NEUTROPHILS % 73.3 % (36.0-66.0); PLATELET COUNT, AUTOMATED 136 k/mm3 (150-450); RED CELL DISTRIBUTION WIDTH 14.8 % (11.5-14.5); WHITE BLOOD COUNT 4.8 K/mm3 (4.0-10.0)
[2016-11-25 07:11] LABS: ALBUMIN 3.3 GM/DL (3.2-5.2); ALBUMIN/GLOBULIN RATIO 1.14 (1.00-1.93); BILIRUBIN,TOTAL 0.8 MG/DL (0.2-1.0); CALCIUM LEVEL 8.2 MG/DL (8.8-10.2); CREATININE FOR GFR 5.51 MG/DL (0.55-1.02); GLOMERULAR FILTRATION RATE 8.2 (>45); MAGNESIUM LEVEL 2.1 MG/DL (1.8-2.4); POTASSIUM SERUM 3.6 MEQ/L (3.5-5.1); TOTAL PROTEIN 6.2 GM/DL (6.4-8.2)
[2016-11-25] MEDS ORDERED: DARBEPOETIN 100 MCG/0.5 ML *DIALYSIS* SYRINGE (J0882) IV SCH (08:00)
[2016-11-25] MEDS: guaiFENesin ER 600 MG TAB PO SCH ×2 (08:09→20:15)
[2016-11-25] MEDS: (RENVELA) SEVELAMER **CARBONate** 800 MG TAB PO SCH ×3 (08:09→17:24)
[2016-11-25] MEDS: HEPARIN SOD (PORCINE) 5000 UNITS/ML VIAL SQ SCH ×2 (08:09→20:14)
[2016-11-25] MEDS: AZITHROMYCIN INJ 500 MG, VIAL MATE ADAPTER 1 EACH in D5W 250 ML IV SCH (08:09)
[2016-11-25] MEDS: cefTRIAXone SOD 1 GM in D5W MINI-BAG PLUS 50 ML IV SCH (08:10)
[2016-11-25] MEDS: TUSSICAPS ER 10/8MG CAPSULE PO SCH ×2 (08:10→20:15)
[2016-11-25] MEDS: VITAMIN D 1,000 INTERNATIONAL UNITS TABLET PO SCH (08:10)
[2016-11-25] MEDS ORDERED: HEPARIN 1,000 UNITS/ML 10ML VIAL (FOR RADIOLOGY& DIALYSIS ONLY) XX ONE (11:15)
--- NOTE | 2016-11-25 13:51 | IPN ---
DATE OF SERVICE: 11/25/2016 Mrs. Turner is seen this morning during hemodialysis. She was admitted with shortness of breath and cough and is currently being treated for influenza. She continues to have persistent cough and feels short of breath. She is also very weak and has not been eating well. She reports slight improvement in her appetite. She denies any vomiting or diarrhea. She has no fever or chills. On physical exam today, her temperature is 99.9 degrees Fahrenheit. Heart rate 70 per minute and respiratory rate 18 per minute. Blood pressure 92/48 mmHg and oxygen saturation 95%. She looks quite weak and exhausted. Head is atraumatic. Ears, nose and throat are unremarkable. Lungs have bilateral rhonchi. Heart sounds are regular. Abdomen soft and nontender and without palpable organomegaly. Bowel sounds are normal. Extremities have no cyanosis or clubbing. Skin has no rash or ulcers. Neurologically, she is awake, alert and oriented times three. She has no focal neurological deficit. Today's labs show WBC count 4.8, hemoglobin 10.0 and hematocrit 28.7. Platelets 136. Sodium is 135 and potassium 3.6. BUN 29 and creatinine 5.5. C-reactive protein is 7.0. Total protein 6.2 and albumin 3.3. Problems: 1. End-stage renal disease. Patient is currently being dialyzed. Her volume status is usually well compensated. Only minimal amount of fluid to be moved. Today, we are not removing any fluid due to hypotension. She is tolerating her dialysis treatment well. 2. Influenza with possible superimposed community-acquired pneumonia. Patient is currently being treated with Tamiflu and intravenous Rocephin. She has only low grade fever and we will continue to monitor her closely. 3. History of Crohn disease. Patient has an ileostomy and is functioning well. At present, she is at about her baseline. 4. History of multiple myeloma. Her multiple myeloma has been in remission. She is currently being monitored without any active treatment. 5. Hypothyroidism. The patient will continue with her chronic Synthroid replacement. 6. Anemia. Patient receives Aranesp 100 mcg once a week during dialysis. Her anemia is stable at present.
[2016-11-25 14:00] VITALS: BP 92/55
--- NOTE | 2016-11-25 14:43 | EDDOCDS ---
Nurse's Notes [facility] Name: Yoana Escobedo Age: 71 yrs Sex: Female : 1945 Arrival Date: 11/23/2016 Time: 08:38 Bed 7 Private MD: Diagnosis: End stage renal disease;Influenza due to other identified influenza virus;Weakness Presentation: 11/23 08:42 Presenting complaint: Patient states: weakness since Friday. skipped dialysis pml yesterday, wasn't feeling well - when pt called off of dialysis was told she should be seen in ED - pt refused. Suicide/Homicide risk assessment- the patient denies having any suicidal and/or homicidal ideations and does not present with any other emotional, behavioral or mental health complaints. Transition of care: patient was not received from another setting of care. 08:42 Acuity: LUIGI Level 3 pml 08:42 Method Of Arrival: Ambulance pml 08:49 Adult Sepsis Screening: The patient does not have new or worsening altered mentation. pml Patient's respiratory rate is less than 22. Systolic blood pressure is greater than 100. Patient has a qSOFA score of 0- Negative Sepsis Screen. Status: Patient is not a service advocate contact or dependent. Triage Assessment: 08:51 General: Appears in no apparent distress, Behavior is appropriate for age, cooperative. pml Pain: Location: chest Pain currently is 5 out of 10 on a pain scale. The patient is triaged at the bedside. See Assessment in Nurses Notes section of ED record. Neurological: Level of Consciousness is awake, alert, Oriented to person, place, time. Cardiovascular: Capillary refill < 3 seconds Rhythm is sinus rhythm No ectopy. Respiratory: Airway is patent Respiratory effort is even, unlabored, Breath sounds are coarse Breath sounds with rhonchi in right posterior lower lobe Reports cough that is non-productive, hacking, persistent. GI: Abdomen is non- distended Ileostomy site is clean and dry. Ostomy appliance is intact. Derm: Skin is pink, warm & dry. Historical: - Allergies: Vancomycin; - Home Meds: 1. Renvela 800 mg oral tab 4 tabs 3 times per day 2. [place] 5-325 mg Oral tab 1 tab every 6 hours 3. levothyroxine 50 mcg Oral tab 1 tab once daily 4. Vitamin D3 2,000 unit oral tab daily ran out 5. Restasis 0.05 % ophthalmic dpet 1 drop 2 times per day - PMHx: Crohn's; ESRD; Hypothyroidism; Melanoma Rigth Arm; Multiple Myeloma; Rotator cuff injury; - PSHx: Colon Resection; Appendectomy; Ileostomy Construction; Dialysis Graft Construction, Arm; stem cell transplant; - Social history: Smoking status: Patient states former smoker of tobacco. No barriers to communication noted, The patient speaks fluent [place] Citizen, Speaks appropriately for age. - Family history: Not pertinent. - : The pt / caregiver states he / she is not on anticoagulants. Home medication list is obtained from the patient. - Exposure Risk Screening:: None identified. Screenin:54 Screening information is obtained from the patient. Fall risk: No risks identified. pml Assistance ADL's: requires no assistance with activities of daily living. Abuse/DV Screen: The patient / caregiver reports he/she is: not in a situation that causes fear, pain or injury. Nutritional screening: No deficits noted. Advance Directives: Currently, there is no health care proxy. home support is adequate. Assessment: 10:29 General: Appears in no apparent distress, comfortable, Behavior is appropriate for age, pml cooperative. Pain: Location: chest Pain currently is 5 out of 10 on a pain scale. Neurological: Level of Consciousness is awake, alert, Oriented to person, place, time. Cardiovascular: Capillary refill < 3 seconds. Cardiovascular: Rhythm is sinus rhythm No ectopy. Respiratory: Airway is patent Respiratory effort is even, unlabored. Respiratory: Reports cough that is non-productive. GI: Abdomen is non- distended. Derm: Skin is pink, warm & dry. 11:46 Adult Sepsis Screening: The patient does not have new or worsening altered mentation. pml Patient's respiratory rate is less than 22. Systolic blood pressure is greater than 100. Patient has a qSOFA score of 0- Negative Sepsis Screen. General: resting on stretcher, eyes closed, resps easy and unlabored, skin p/w/d. sinus rhythm without ectopy. . 12:30 General: resting on stretcher resps easy and unlabored, skin p/w/d sinus rhythm on pml monitor without ectopy. voices no complaints. IVF infusing as ordered. 13:34 General: Appears in no apparent distress, comfortable, Behavior is appropriate for age, pml cooperative. Pain: Location: chest Pain currently is 5 out of 10 on a pain scale. Neurological: Level of Consciousness is awake, alert, Oriented to person, place, time. Cardiovascular: Capillary refill < 3 seconds. Respiratory: Airway is patent Respiratory effort is even, unlabored. GI: Abdomen is non- distended. Derm: Skin is pink, warm & dry. Vital Signs: 08:47 BP 130 / 61 (auto/); pml 08:49 Pulse 86 MON; Pulse Ox 98% ; pml 08:51 BP 130 / 61; Pulse 82; Resp 20; Temp 98.6(O); Pulse Ox 100% on R/A; Weight 53.98 kg pml (R); Height 5 ft. 4 in. (162.56 cm); Pain 5/10; 09:17 Pulse 76 MON; Pulse Ox 94% ; pml 09:17 BP 108 / 53 (auto/); pml 09:32 BP 104 / 55 (auto/); pml 09:33 Pulse 76 MON; Pulse Ox 96% ; pml 10:53 BP 112 / 54 Supine; Pulse 79; pml 10:53 BP 117 / 56 Sitting; Pulse 84; pml 10:53 BP 113 / 56 Standing; Pulse 89; pml 11:07 Pulse 76 MON; Pulse Ox 93% ; pml 11:07 BP 119 / 57 (auto/); pml 11:22 Pulse 86 MON; Pulse Ox 94% ; pml 11:22 BP 120 / 60 (auto/); pml 11:37 Pulse 78 MON; Pulse Ox 92% ; pml 11:37 BP 110 / 54 (auto/); pml 11:52 BP 113 / 56 (auto/); pml 11:53 Pulse 78 MON; Pulse Ox 92% ; pml 12:07 BP 123 / 58 (auto/); pml 12:08 Pulse 84 MON; Pulse Ox 94% ; pml 12:22 Pulse 80 MON; Pulse Ox 96% ; pml 12:22 BP 112 / 53 (auto/); pml 12:37 BP 129 / 62 (auto/); jo3 12:37 Pulse 80 MON; Pulse Ox 97% ; jo3 12:52 BP 121 / 56 (auto/); jo3 12:52 Pulse 76 MON; Pulse Ox 94% ; jo3 13:07 BP 132 / 61 (auto/); jo3 13:07 Pulse 80 MON; Pulse Ox 96% ; jo3 13:22 BP 121 / 58 (auto/); jo3 13:22 Pulse 82 MON; Pulse Ox 94% ; jo3 13:34 Temp 101.4; pml 08:51 Body Mass Index 20.43 (53.98 kg, 162.56 cm) pml Vitals: 08:51 Log In Time N/A - ambulance arrival. pml ED Course: 08:39 Patient visited by Nidia Orosco PCA. ar3 08:39 Patient moved to Waiting ar3 08:39 Patient moved to 7 ar3 08:44 Triage Initiated pml 08:50 Daja Rivers DO is PHCP. jo4 08:50 Jann Hanna MD is Attending Physician. jo4 08:54 Patient visited by Jesusita Wong RN. pml 09:45 Patient visited by Daja Rivers DO. jo4 09:45 Patient visited by Daja Rivers DO. jo4 10:22 [facility] [place] into [employer] and attached to record. lg 10:30 Patient visited by Jesusita Wong RN. pml 10:30 Patient visited by Jann Hanna MD. br1 10:33 EKG done. (by ED staff). Reviewed by Daja Rivers DO. nb2 10:34 Patient visited by Abeba Petit. nb2 10:37 Patient visited by Micaela Weathers PCA. rs6 10:54 The patient / caregiver is instructed regarding the plan of care and ED course. Patient pml has correct armband on for positive identification. Placed in gown. Bed in low position. Call light in reach. Side rails up X2. 10:54 Inserted peripheral IV: 20gauge IV in right hand and blood collected. Patient tolerated pml the procedure well. 10:55 Patient visited by Jesusita Wong RN. pml 10:55 -Influenza A&B Rapid Antigen - Nose Sent. pml 11:47 Patient visited by Jesusita Wong RN. pml 12:23 Rahel Vu is Hospitalizing Provider. jo4 12:31 Patient visited by Jesusita Wong,STACEY. pml 13:29 Patient visited by Jackie Dorsey RN. jo3 13:34 No procedures done that require assistance. pml 14:27 T-Sheet-- Draft Copy was scanned into [employer] and attached to record. gb 14:27 ECG/EKG was scanned into [employer] and attached to record. gb 14:27 Radiology Report was scanned into [employer] and attached to record. gb Administered Medications: 12:29 Drug: NS 0.9% 500 ml [sodium chloride 0.9 % injection solution] Route: IV; Rate: bolus; pml Site: right hand; 13:36 Follow up: IV Status: Completed infusion; IV Intake: 500ml pml 13:40 Drug: Acetaminophen 650 mg [acetaminophen 325 mg tablet (2 tabs)] Route: PO; pml Intake: 13:36 IV: 500.00ml; Total: 500.00ml. pml Order Results: Lab Order: TSH w/o Free T4; SPEC'M 11/23/16 10:27 Test: THYROID STIMULATING HORMONE; Value: 0.672; Range: 0.358-3.740; Units: uIU/ML; Status: F Lab Order: CBC with Diff; SPEC'M 11/23/16 10:27 Test: WHITE BLOOD COUNT; Value: 4.1; Range: 4.0-10.0; Units: K/mm3; Status: F Test: RED BLOOD COUNT; Value: 2.86; Range: 4.00-5.40; Abnormal: Below low normal; Units: M/mm3; Status: F Test: HEMOGLOBIN; Value: 10.0; Range: 12.0-16.0; Abnormal: Below low normal; Units: g/dl; Status: F Test: HEMATOCRIT; Value: 28.5; Range: 36.0-47.0; Abnormal: Below low normal; Units: %; Status: F Test: MEAN CORPUSCULAR VOLUME; Value: 99.5; Range: 80.0-96.0; Abnormal: Above high normal; Units: fl; Status: F Test: MEAN CORPUSCULAR HEMOGLOBIN; Value: 35.1; Range: 27.0-33.0; Abnormal: Above high normal; Units: pg; Status: F Test: MEAN CORPUSCULAR HGB CONC; Value: 35.2; Range: 32.0-36.5; Units: g/dl; Status: F Test: RED CELL DISTRIBUTION WIDTH; Value: 14.3; Range: 11.5-14.5; Units: %; Status: F Test: PLATELET COUNT, AUTOMATED; Value: 140; Range: 150-450; Abnormal: Below low normal; Units: k/mm3; Status: F Test: NEUTROPHILS %; Value: 83.7; Range: 36.0-66.0; Abnormal: Above high normal; Units: %; Status: F Test: LYMPH %; Value: 8.7; Range: 24.0-44.0; Abnormal: Below low normal; Units: %; Status: F Test: MONO %; Value: 4.5; Range: 0.0-5.0; Units: %; Status: F Test: EOS %; Value: 1.9; Range: 0.0-3.0; Units: %; Status: F Test: BASO %; Value: 0.1; Range: 0.0-1.0; Units: %; Status: F Test: LARGE UNSTAINED CELL %; Value: 1.2; Range: 0.0-4.0; Units: %; Status: F Test: NEUTROPHILS #; Value: 3.4; Range: 1.8-7.7; Units: K/mm3; Status: F Test: LYMPH #; Value: 0.4; Range: 1.5-4.5; Abnormal: Below low normal; Units: K/mm3; Status: F Test: MONO #; Value: 0.2; Range: 0.0-0.8; Units: K/mm3; Status: F Test: EOS #; Value: 0.1; Range: 0.0-0.50; Units: K/mm3; Status: F Test: BASO #; Value: 0.0; Range: 0.0-0.2; Units: K/mm3; Status: F Test: LARGE UNSTAINED CELL #; Value: 0.1; Range: 0.0-0.4; Units: K/mm3; Status: F Lab Order: [facility]; SPEC'M 11/23/16 10:27 Test: GLUCOSE, FASTING; Value: 97; Range: 80-110; Units: MG/DL; Status: F Test: BLOOD UREA NITROGEN; Value: 33; Range: 7-18; Abnormal: Above high normal; Units: MG/DL; Status: F Test: CREATININE FOR GFR; Value: 6.21; Range: 0.55-1.02; Abnormal: Above high normal; Units: MG/DL; Status: F Test: GLOMERULAR FILTRATION RATE; Value: 7.1; Range: >45; Abnormal: Below low normal; Status: F Test: SODIUM LEVEL; Value: 136; Range: 136-145; Units: MEQ/L; Status: F Test: POTASSIUM SERUM; Value: 3.7; Range: 3.5-5.1; Units: MEQ/L; Status: F Test: CHLORIDE LEVEL; Value: 94; Range: 98-107; Abnormal: Below low normal; Units: MEQ/L; Status: F Test: CARBON DIOXIDE LEVEL; Value: 28; Range: 21-32; Units: MEQ/L; Status: F Test: ANION GAP; Value: 14; Range: 8-16; Units: MEQ/L; Status: F Test: CALCIUM LEVEL; Value: 8.2; Range: 8.8-10.2; Abnormal: Below low normal; Units: MG/DL; Status: F Test Note: ; Units are mL/min/1.73 m2 Chronic Kidney Disease Staging per NKF: Stage I & II GFR >=60 Normal to Mildly Decreased Stage III GFR 30-59 Moderately Decreased Stage IV GFR 15-29 Severely Decreased Stage V GFR <15 Very Little GFR Left ESRD GFR <15 on GENERATOR REPAIRER Lab Order: Magnesium Level; SPEC'M 11/23/16 10:27 Test: MAGNESIUM LEVEL; Value: 2.0; Range: 1.8-2.4; Units: MG/DL; Status: F Lab Order: Cardiac Marker Panel; SPEC'M 11/23/16 10:27 Test: CPK CREATINE PHOSPHOKINASE; Value: 106; Range: 26-192; Units: U/L; Status: F Test: CK-MB VALUE MASS; Value: 1.0; Range: 0.0-3.6; Units: NG/ML; Status: F Test: MB/CK RELATIVE INDEX; Value: 0.94; Range: < OR =4; Status: F Test: TROPONIN I; Value: < 0.02; Range: < 0.10; Units: NG/ML; Status: F Test Note: ; DIAGNOSIS CRITERIA MMB ng/ml Relative Index (RI) NON-AMI < or = 5 N/A CRUZ ZONE > 5 < or = 4 AMI > 5 > 4 Lab Order: -Influenza A&B Rapid Antigen - Nose; SPEC'M 11/23/16 10:50 Test: INFLUENZA A RAPID SCR by ICA; Value: INFLUENZA A RESULTS NEGATIVE; Status: F Test: INFLUENZA A RAPID SCR by ICA; Value: Comments:; Status: F Test: INFLUENZA B RAPID SCR by ICA; Value: INFLUENZA B RESULTS POSITIVE; Abnormal: Abnormal; Status: F Test Note: ; The Influenza test is a direct rapid immunoassay for the qualitative detection of Influenza viral antigen. Cell culture (Viral Culture) testing should be considered to confirm NEGATIVE results and to assist in detecting other viruses that can provide similar clinical symptoms. Please contact the lab within 24 hours ([phone]) if confirmatory testing is desired. Outcome: 12:23 Decision to Hospitalize by Provider. jo4 13:34 Discharge Assessment: Patient awake, alert and oriented x 3. No cognitive and/or pml functional deficits noted. Patient verbalized understanding of disposition instructions. patient administered narcotics - no. The following High Risk Discharge criteria are identified: None. Admitted to Med/Surg accompanied by tech, via stretcher, on monitor, with chart. Condition: good Condition: stable. No special radiology studies were completed. Property :Personal belongings accompany Pt. 13:42 Patient left the ED. pml Signatures: Aditi Chang, Reg Reg gb Doni Pelaez, Reg Reg lg Jackie Dorsey RN RN jo3 Jann Hanna MD MD br1 Nidia Orosco, PROGRAM SERVICES ASSISTANT PROGRAM SERVICES ASSISTANT ar3 Jesusita Wong RN RN pml Schmitt, Rebecca, PROGRAM SERVICES ASSISTANT PROGRAM SERVICES ASSISTANT rs6 Daja Rivers DO DO jo4 Abeba Petit Chart Complete MTDD
--- NOTE | 2016-11-25 14:43 | EDDOCDS ---
Physician Documentation [facility] Name: Yoana Escobedo Age: 71 yrs Sex: Female : 1945 Arrival Date: 11/23/2016 Time: 08:38 Bed 7 Private MD: Disposition: 11/23 13:04 I have independently interviewed and examined the patient, and I agree with the br1 investigation, diagnosis and treatment plan as documented by the Resident. Disposition: 11/23/16 12:23 Hospitalization ordered by Rahel Vu for Inpatient Admission. Preliminary diagnosis are End stage renal disease, Influenza due to other identified influenza virus, Weakness. - Bed requested for 5 Telles. - Status is Inpatient Admission. pml - Condition is Stable. - Problem is an ongoing problem. - Symptoms are unchanged. Historical: - Allergies: Vancomycin; - Home Meds: 1. Renvela 800 mg oral tab 4 tabs 3 times per day 2. [place] 5-325 mg Oral tab 1 tab every 6 hours 3. levothyroxine 50 mcg Oral tab 1 tab once daily 4. Vitamin D3 2,000 unit oral tab daily ran out 5. Restasis 0.05 % ophthalmic dpet 1 drop 2 times per day - PMHx: Crohn's; ESRD; Hypothyroidism; Melanoma Rigth Arm; Multiple Myeloma; Rotator cuff injury; - PSHx: Colon Resection; Appendectomy; Ileostomy Construction; Dialysis Graft Construction, Arm; stem cell transplant; - Social history: Smoking status: Patient states former smoker of tobacco. No barriers to communication noted, The patient speaks fluent [place], Speaks appropriately for age. - Family history: Not pertinent. - : The pt / caregiver states he / she is not on anticoagulants. Home medication list is obtained from the patient. - Exposure Risk Screening:: None identified. Vital Signs: 08:47 BP 130 / 61 (auto/); pml 08:49 Pulse 86 MON; Pulse Ox 98% ; pml 08:51 BP 130 / 61; Pulse 82; Resp 20; Temp 98.6(O); Pulse Ox 100% on R/A; Weight 53.98 kg / pml 119.01 lbs (R); Height 5 ft. 4 in. (162.56 cm); Pain 5/10; 09:17 Pulse 76 MON; Pulse Ox 94% ; pml 09:17 BP 108 / 53 (auto/); pml 09:32 BP 104 / 55 (auto/); pml 09:33 Pulse 76 MON; Pulse Ox 96% ; pml 10:53 BP 112 / 54 Supine; Pulse 79; pml 10:53 BP 117 / 56 Sitting; Pulse 84; pml 10:53 BP 113 / 56 Standing; Pulse 89; pml 11:07 Pulse 76 MON; Pulse Ox 93% ; pml 11:07 BP 119 / 57 (auto/); pml 11:22 Pulse 86 MON; Pulse Ox 94% ; pml 11:22 BP 120 / 60 (auto/); pml 11:37 Pulse 78 MON; Pulse Ox 92% ; pml 11:37 BP 110 / 54 (auto/); pml 11:52 BP 113 / 56 (auto/); pml 11:53 Pulse 78 MON; Pulse Ox 92% ; pml 12:07 BP 123 / 58 (auto/); pml 12:08 Pulse 84 MON; Pulse Ox 94% ; pml 12:22 Pulse 80 MON; Pulse Ox 96% ; pml 12:22 BP 112 / 53 (auto/); pml 12:37 BP 129 / 62 (auto/); jo3 12:37 Pulse 80 MON; Pulse Ox 97% ; jo3 12:52 BP 121 / 56 (auto/); jo3 12:52 Pulse 76 MON; Pulse Ox 94% ; jo3 13:07 BP 132 / 61 (auto/); jo3 13:07 Pulse 80 MON; Pulse Ox 96% ; jo3 13:22 BP 121 / 58 (auto/); jo3 13:22 Pulse 82 MON; Pulse Ox 94% ; jo3 13:34 Temp 101.4; pml 08:51 Body Mass Index 20.43 (53.98 kg, 162.56 cm) pml MDM: 10:14 Orthostatic VS ordered. jo4 10:15 TSH w/o Free T4 Ordered. EDMS 10:15 CBC with Diff Ordered. EDMS 10:15 BMP Ordered. EDMS 10:15 Magnesium Level Ordered. EDMS 10:19 IV Saline Lock ordered. br1 10:19 Financial registration complete. lg 10:22 Cardiac Marker Panel Ordered. EDMS 10:22 Chest, 2 View (pa\E\lat) Ordered. EDMS 10:22 ECG WITH READING ER PHYS+CARDIAG ordered. EDMS 10:22 [facility] Payment Agreement was scanned into [employer] and attached to record. lg 10:32 UA Ordered. EDMS 10:32 Urine Culture Ordered. EDMS 10:33 Obtain sample by nasopharyngeal swab ordered. jo4 10:34 -Influenza A&B Rapid Antigen - Nose Ordered. EDMS 11:13 Cardiac Marker Panel Reviewed. jo4 11:13 CBC with Diff Reviewed. jo4 11:14 BMP Reviewed. jo4 11:14 TSH w/o Free T4 Reviewed. jo4 11:14 Magnesium Level Reviewed. jo4 11:15 -Influenza A&B Rapid Antigen - Nose Reviewed. jo4 12:01 BED REQUEST+ADM ordered. EDMS 12:22 NS 0.9% 500 ml IV at bolus once ordered. jo4 13:13 PHYSICAL THERAPY EVAL & TREAT ordered. EDMS 13:13 Admission / Observation Status ordered. EDMS 13:40 Acetaminophen Tablet 650 mg PO once ordered. pml 14:27 T-Sheet-- Draft Copy was scanned into [employer] and attached to record. gb 14:27 ECG/EKG was scanned into [employer] and attached to record. gb 14:27 Radiology Report was scanned into [employer] and attached to record. gb Administered Medications: 12:29 Drug: NS 0.9% 500 ml [sodium chloride 0.9 % injection solution] Route: IV; Rate: bolus; pml Site: right hand; 13:36 Follow up: IV Status: Completed infusion; IV Intake: 500ml pml 13:40 Drug: Acetaminophen 650 mg [acetaminophen 325 mg tablet (2 tabs)] Route: PO; pml Signatures: Dispatcher [employer] EDMS Aditi Chang, Reg Reg gb Doni Pelaez, Reg Reg lg Jann Hanna MD MD br1 Jackie Peters RN RN jc4 Jesusita Wong RN RN pml Daja Rivers DO DO jo4 The chart was reviewed and I authenticate all verbal orders and agree with the evaluation and treatment provided.Attachments: 10:22 [facility] [place] Payment Agreement lg 14:27 T-Sheet-- Draft Copy gb 14:27 ECG/EKG gb Chart Complete MTDD
--- NOTE | 2016-11-25 14:43 | EDDOCDS ---
Physician Documentation [facility] Name: Yoana Escobedo Age: 71 yrs Sex: Female : 1945 Arrival Date: 11/23/2016 Time: 08:38 Bed 7 Private MD: Disposition: 11/23 13:04 I have independently interviewed and examined the patient, and I agree with the br1 investigation, diagnosis and treatment plan as documented by the Resident. Disposition: 11/23/16 12:23 Hospitalization ordered by Rahel Vu for Inpatient Admission. Preliminary diagnosis are End stage renal disease, Influenza due to other identified influenza virus, Weakness. - Bed requested for 5 Telles. - Status is Inpatient Admission. pml - Condition is Stable. - Problem is an ongoing problem. - Symptoms are unchanged. Historical: - Allergies: Vancomycin; - Home Meds: 1. Renvela 800 mg oral tab 4 tabs 3 times per day 2. [place] 5-325 mg Oral tab 1 tab every 6 hours 3. levothyroxine 50 mcg Oral tab 1 tab once daily 4. Vitamin D3 2,000 unit oral tab daily ran out 5. Restasis 0.05 % ophthalmic dpet 1 drop 2 times per day - PMHx: Crohn's; ESRD; Hypothyroidism; Melanoma Rigth Arm; Multiple Myeloma; Rotator cuff injury; - PSHx: Colon Resection; Appendectomy; Ileostomy Construction; Dialysis Graft Construction, Arm; stem cell transplant; - Social history: Smoking status: Patient states former smoker of tobacco. No barriers to communication noted, The patient speaks fluent [place], Speaks appropriately for age. - Family history: Not pertinent. - : The pt / caregiver states he / she is not on anticoagulants. Home medication list is obtained from the patient. - Exposure Risk Screening:: None identified. Vital Signs: 08:47 BP 130 / 61 (auto/); pml 08:49 Pulse 86 MON; Pulse Ox 98% ; pml 08:51 BP 130 / 61; Pulse 82; Resp 20; Temp 98.6(O); Pulse Ox 100% on R/A; Weight 53.98 kg / pml 119.01 lbs (R); Height 5 ft. 4 in. (162.56 cm); Pain 5/10; 09:17 Pulse 76 MON; Pulse Ox 94% ; pml 09:17 BP 108 / 53 (auto/); pml 09:32 BP 104 / 55 (auto/); pml 09:33 Pulse 76 MON; Pulse Ox 96% ; pml 10:53 BP 112 / 54 Supine; Pulse 79; pml 10:53 BP 117 / 56 Sitting; Pulse 84; pml 10:53 BP 113 / 56 Standing; Pulse 89; pml 11:07 Pulse 76 MON; Pulse Ox 93% ; pml 11:07 BP 119 / 57 (auto/); pml 11:22 Pulse 86 MON; Pulse Ox 94% ; pml 11:22 BP 120 / 60 (auto/); pml 11:37 Pulse 78 MON; Pulse Ox 92% ; pml 11:37 BP 110 / 54 (auto/); pml 11:52 BP 113 / 56 (auto/); pml 11:53 Pulse 78 MON; Pulse Ox 92% ; pml 12:07 BP 123 / 58 (auto/); pml 12:08 Pulse 84 MON; Pulse Ox 94% ; pml 12:22 Pulse 80 MON; Pulse Ox 96% ; pml 12:22 BP 112 / 53 (auto/); pml 12:37 BP 129 / 62 (auto/); jo3 12:37 Pulse 80 MON; Pulse Ox 97% ; jo3 12:52 BP 121 / 56 (auto/); jo3 12:52 Pulse 76 MON; Pulse Ox 94% ; jo3 13:07 BP 132 / 61 (auto/); jo3 13:07 Pulse 80 MON; Pulse Ox 96% ; jo3 13:22 BP 121 / 58 (auto/); jo3 13:22 Pulse 82 MON; Pulse Ox 94% ; jo3 13:34 Temp 101.4; pml 08:51 Body Mass Index 20.43 (53.98 kg, 162.56 cm) pml MDM: 10:14 Orthostatic VS ordered. jo4 10:15 TSH w/o Free T4 Ordered. EDMS 10:15 CBC with Diff Ordered. EDMS 10:15 BMP Ordered. EDMS 10:15 Magnesium Level Ordered. EDMS 10:19 IV Saline Lock ordered. br1 10:19 Financial registration complete. lg 10:22 Cardiac Marker Panel Ordered. EDMS 10:22 Chest, 2 View (pa\E\lat) Ordered. EDMS 10:22 ECG WITH READING ER PHYS+CARDIAG ordered. EDMS 10:22 [facility] Payment Agreement was scanned into [employer] and attached to record. lg 10:32 UA Ordered. EDMS 10:32 Urine Culture Ordered. EDMS 10:33 Obtain sample by nasopharyngeal swab ordered. jo4 10:34 -Influenza A&B Rapid Antigen - Nose Ordered. EDMS 11:13 Cardiac Marker Panel Reviewed. jo4 11:13 CBC with Diff Reviewed. jo4 11:14 BMP Reviewed. jo4 11:14 TSH w/o Free T4 Reviewed. jo4 11:14 Magnesium Level Reviewed. jo4 11:15 -Influenza A&B Rapid Antigen - Nose Reviewed. jo4 12:01 BED REQUEST+ADM ordered. EDMS 12:22 NS 0.9% 500 ml IV at bolus once ordered. jo4 13:13 PHYSICAL THERAPY EVAL & TREAT ordered. EDMS 13:13 Admission / Observation Status ordered. EDMS 13:40 Acetaminophen Tablet 650 mg PO once ordered. pml 14:27 T-Sheet-- Draft Copy was scanned into [employer] and attached to record. gb 14:27 ECG/EKG was scanned into [employer] and attached to record. gb 14:27 Radiology Report was scanned into [employer] and attached to record. gb Administered Medications: 12:29 Drug: NS 0.9% 500 ml [sodium chloride 0.9 % injection solution] Route: IV; Rate: bolus; pml Site: right hand; 13:36 Follow up: IV Status: Completed infusion; IV Intake: 500ml pml 13:40 Drug: Acetaminophen 650 mg [acetaminophen 325 mg tablet (2 tabs)] Route: PO; pml Signatures: Dispatcher [employer] EDMS Aditi Chang, Reg Reg gb Doni Pelaez, Reg Reg lg Jann Hanna MD MD br1 Jackie Peters RN RN jc4 Jesusita Wong RN RN pml Daja Rivers DO DO jo4 The chart was reviewed and I authenticate all verbal orders and agree with the evaluation and treatment provided.Attachments: 10:22 [facility] [place] Payment Agreement lg 14:27 T-Sheet-- Draft Copy gb 14:27 ECG/EKG gb Chart Complete MTDD
--- NOTE | 2016-11-25 15:26 | IPN ---
DATE: 11/25/2016 Patient is seen and examined. Last fever was yesterday afternoon at 2:00 o'clock, 102.9. Overnight, maximum temperature (T-max) of 99.9. Continued to report significant cough, nonproductive. Denies any fevers or chills. Denies any chest pain, pressure or discomfort. Denies any chest pain but continues to feel very weak. VITAL SIGNS: Temperature 99.9, pulse 71, respirations 18, blood pressure 92/48, pulse oximetry 95% on room air. LABORATORY DATA: WBC 4.8, hemoglobin and hematocrit 10/28.7, platelets 136. Chemistry: Sodium 135, potassium 3.6, chloride 94, BUN 29, creatinine 5.51, bicarbonate 30. Influenza positive. PHYSICAL EXAMINATION: GENERAL: Patient with significant cough, in no acute distress. HEENT: Normocephalic, atraumatic. Pupils are equal, round, and reactive. NECK: Supple. PULMONARY: Bilateral rhonchi. No significant wheeze. CARDIAC: Regular rate and rhythm with normal S1, S2. ABDOMEN: Soft, nontender, nondistended. Ileostomy bag in place. No erythema or skin breakdown. EXTREMITIES: No edema of bilateral lower extremities. ASSESSMENT AND PLAN: This is a 71-year-old female patient with underlying medical history of Crohn's disease, end-stage renal disease on hemodialysis, hypothyroidism, melanoma of the right arm, multiple myeloma, rotator cuff injury, also has a colostomy secondary to Crohn's, admitted for influenza, possibly superimposed community-acquired bacterial pneumonia. 1. Influenza with possible superimposed community-acquired bacterial pneumonia. Tamiflu. Case discussed with Dr. Nelson, food mixer assembler. Patient is outside of the window, but given the patient's symptoms are still quite severe , we will still treat with Tamiflu. Empirically started Rocephin and azithromycin for superimposed infection. Followup methicillin-resistant Staphylococcus aureus (MRSA) screening. Continue to follow C-reactive protein. Antitussive medication. 2. End-stage renal disease. Patient missed dialysis and had dialysis Friday. We will resume Friday, Friday and Friday schedule. Nephrology consulted. 3. Hypothyroidism. Continue home medication. 4. History of multiple myeloma, diagnosed 2007. As per patient, underwent stem cell transplant and has been in remission ever since. We will continue to follow. 5. Crohn's disease. Patient follows with Dr. Licona, has an ileostomy bag with no dysfunction, outpatient followup. 6. History of rotator cuff injury, currently stable. 7. Deep venous thrombosis (DVT) prophylaxis. Heparin subcutaneous. 8. Hypothyroidism. Continue Synthroid. DISPOSITION PLANNING: Pending clinical improvement and physical therapy.
[2016-11-25] MEDS: [UNRECOGNIZED DRUG - REMARK] XX SCH (16:03)
[2016-11-25] MEDS: NORCO, ANEXSIA 5/325MG TABLET (HYDROcodone/ACETAMINOPHEN) PO PRN (20:15)
[2016-11-25 22:00] VITALS: BP 77/40
[2016-11-26 06:00] VITALS: BP 89/45
[2016-11-26] MEDS: LEVOTHYROXINE 0.075 MG TAB (75 MCG) PO SCH (06:20)
[2016-11-26 07:13] LABS: BASO % 0.2 % (0.0-1.0); EOS # 0.1 K/mm3 (0.0-0.50); EOS % 1.8 % (0.0-3.0); LARGE UNSTAINED CELL # 0.1 K/mm3 (0.0-0.4); LARGE UNSTAINED CELL % 2.7 % (0.0-4.0); LYMPH # 0.9 K/mm3 (1.5-4.5); LYMPH % 28.3 % (24.0-44.0); MEAN CORPUSCULAR HEMOGLOBIN 33.5 pg (27.0-33.0); MEAN CORPUSCULAR HGB CONC 33.7 g/dl (32.0-36.5); MEAN CORPUSCULAR VOLUME 99.3 fl (80.0-96.0); MONO # 0.2 K/mm3 (0.0-0.8); MONO % 7.2 % (0.0-5.0); NEUTROPHILS # 1.9 K/mm3 (1.8-7.7); NEUTROPHILS % 59.8 % (36.0-66.0); PLATELET COUNT, AUTOMATED 159 k/mm3 (150-450); RED CELL DISTRIBUTION WIDTH 14.6 % (11.5-14.5); WHITE BLOOD COUNT 3.2 K/mm3 (4.0-10.0)
[2016-11-26 07:38] LABS: ALBUMIN 3.3 GM/DL (3.2-5.2); ALBUMIN/GLOBULIN RATIO 0.92 (1.00-1.93); BILIRUBIN,TOTAL 0.7 MG/DL (0.2-1.0); CALCIUM LEVEL 8.9 MG/DL (8.8-10.2); CREATININE FOR GFR 4.1 MG/DL (0.55-1.02); GLOMERULAR FILTRATION RATE 11.5 (>45); MAGNESIUM LEVEL 2.1 MG/DL (1.8-2.4); POTASSIUM SERUM 3.9 MEQ/L (3.5-5.1); TOTAL PROTEIN 6.9 GM/DL (6.4-8.2)
[2016-11-26] MEDS: VITAMIN D 1,000 INTERNATIONAL UNITS TABLET PO SCH (08:03)
[2016-11-26] MEDS: (RENVELA) SEVELAMER **CARBONate** 800 MG TAB PO SCH ×3 (08:03→17:42)
[2016-11-26] MEDS: HEPARIN SOD (PORCINE) 5000 UNITS/ML VIAL SQ SCH ×2 (08:04→20:13)
[2016-11-26] MEDS: TUSSICAPS ER 10/8MG CAPSULE PO SCH ×2 (08:04→20:13)
[2016-11-26] MEDS: guaiFENesin ER 600 MG TAB PO SCH ×2 (08:04→20:13)
[2016-11-26] MEDS: cefTRIAXone SOD 1 GM in D5W MINI-BAG PLUS 50 ML IV SCH (08:05)
[2016-11-26] MEDS: AZITHROMYCIN INJ 500 MG, VIAL MATE ADAPTER 1 EACH in D5W 250 ML IV SCH (08:05)
--- NOTE | 2016-11-26 09:46 | IPNPDOC ---
Date/Time Seen The patient was seen on 11/26/16 at 09:36. Progress Note DATE OF ENCOUNTER: 11/26/2016 SUBJECTIVE: Ms. Escobedo was seen this morning at bedside. She reports that she got some medicine to help her sleep and that this was the first good night of rest in a week. She continues to have a dry cough, but reports that it is improved. Has intermittent SOB after stem cell transplant, which has been chronic. Weakness is getting better. She had dialysis yesterday which she tolerated without any symptoms. Review of systems negative for chest pain or pressure, nausea, vomiting, abdominal pain, diarrhea, headache, dizziness, fever, chills. She is afebrile. OBJECTIVE: Vital Signs Date Time Temp Pulse Resp B/P Pulse Ox O2 Delivery O2 Flow Rate FiO2 11/26/16 06:00 97.5 57 14 89/45 96 Room Air I&O- Last 24 Hours up to 6 AM 11/26/16 06:00 Intake Total 1140 ml Output Total 500 ml Balance 640 ml PHYSICAL EXAMINATION: GENERAL APPEARANCE: Alert and oriented 3. In no acute distress. HEENT: Normocephalic, atraumatic. Extraocular muscles are intact. Moist mucosa. NECK: Supple. Trachea is midline. Mildly distended jugular veins. HEART: Normal S1, S2. Regular rate and rhythm. LUNGS: Positive for rhonchi. No wheezing or rales appreciated. ABDOMEN: Soft, nontender, nondistended. Bowel sounds are present. She has an empty ileostomy bag in the right quadrant. EXTREMITIES: No cyanosis or lower extremity edema. Positive pedal pulses bilaterally. NEUROLOGIC: No focal deficits. LABORATORY DATA: 11/26/16 06:55 MICROBIOLOGY: Influenza B positive. Blood cultures show no growth thus far. IMAGING: Chest x-ray done on 11/23 shows hyperinflation compatible with COPD, small amount of fibrotic scarring in right lower lobe, surgical clips in right axilla, left axillary intravascular stent, diffuse osteopenia with old compression fractures ASSESSMENT/PLAN: 1. End-stage renal disease on hemodialysis Friday, Friday and Friday. She was dialyzed yesterday, 500ml was removed. Electrolytes and volume status are stable. Next session will be tomorrow 11/27. 2. Influenza B with superimposed bacterial pneumonia. She is on Tamiflu with HD , ceftriaxone and azithromycin. Being managed by primary team. 3. Anemia in chronic renal failure. Hemoglobin is currently stable. Received Aranesp as needed with HD. 4. Secondary hyperparathyroidism. Patient is on Renvela with meals. 5. History of Crohn disease status post ileostomy. Continue to monitor output. 6. History of multiple myeloma status post stem cell transplant, in remission. She follows with Dr. Saab. GME ATTESTATION GME ATTESTATION My preceptor for this patient encounter was physically present in the building during the encounter and was fully available. As needed, all aspects of the patient interview, examination, medical decision making process, and medical care plan development were reviewed and approved by the preceptor. Preceptor is aware and concurs with the plan as stated in the body of this note and will attest to such by his/her cosignature. RENE HUDSON DO Nov 26, 2016 09:46 RENE HUDSON DO Nov 26, 2016 09:46
[2016-11-26 14:00] VITALS: BP 110/58
[2016-11-26] MEDS: [UNRECOGNIZED DRUG - REMARK] XX SCH (14:49)
--- NOTE | 2016-11-26 18:06 | IPNPDOC ---
Assessment/Plan Date Seen The patient was seen on 11/26/16. Plan / VTE VTE Prophylaxis Ordered?: Yes Plan Plan Text 1. Influenza with possible superimposed community-acquired bacterial pneumonia. Continue on Tamiflu Continue Rocephin and azithromycin-we will switch this over to by mouth as tolerated Cultures unrevealing thus far Patient's respiratory status appears to be improving We will continue to monitor her 2. End-stage renal disease. On hemodialysis Friday, Friday and Friday schedule Nephrology on board 3. Hypothyroidism. Continue levothyroxine. 4. History of multiple myeloma, diagnosed 2007. As per patient, underwent stem cell transplant and has been in remission ever since. We will continue to follow. 5. Crohn's disease. Patient follows with Dr. Licona, has an ileostomy bag with no dysfunction, outpatient followup. 6. History of rotator cuff injury, currently stable. 7. Deep venous thrombosis (DVT) prophylaxis. Heparin subcutaneous. 8. Hypothyroidism. Continue Synthroid. DISPOSITION PLANNING: Pending clinical improvement Subjective Review of Systems CC/HPI The patient is a 71-year-old female admitted with a reason for visit of Generalized Weakness. General: Denies: Chills, Night Sweats Constitutional: Denies: Chills, Fever ENT: Denies: Ear Pain, Head Aches Skin: Denies: Lesions, Rash Pulmonary: Reports: Cough, Dyspnea Cardiovascular: Denies: Chest Pain, Palpitations Gastrointestinal: Denies: Abdominal Pain, Nausea, Vomiting Hematologic: Denies: Bleeding Excessively, Bruising Objective Physical Examination General Exam: Positive: Alert, Cooperative, No Acute Distress ENT Exam: Positive: Atraumatic, Mucous membr. moist/pink Neck Exam: Negative: JVD Chest Exam: Positive: Diminished Heart Exam: Positive: Normal S1, Normal S2, Rate Normal Abdomen Exam: Positive: Other ( ostomy out in the right lower quadrant), Soft, Negative: Tenderness Extremity Exam: Negative: Edema, Tenderness Vital Signs/I&O Vital Signs Date Time Temp Pulse Resp B/P Pulse Ox O2 Delivery O2 Flow Rate FiO2 11/26/16 17:31 Room Air 11/26/16 14:00 97.8 62 18 110/58 99 I&O- Last 24 Hours up to 6 AM 11/26/16 05:59 Intake Total 1260 ml Output Total 500 ml Balance 760 ml Laboratory Data Labs 24H Laboratory Tests 2 11/26/16 06:55: Blood Urea Nitrogen 26H, Creatinine 4.10H, Sodium Level 139, Potassium Level 3.9 , Chloride Level 97L, Carbon Dioxide Level 32, Calcium Level 8.9, Aspartate Amino Transf (AST/SGOT) 34, Alanine Aminotransferase (ALT/SGPT) 34, Alkaline Phosphatase 54, Total Bilirubin 0.7, Total Protein 6.9, Albumin 3.3, Albumin/ Globulin Ratio 0.92L, Anion Gap 10, White Blood Count 3.2L, Red Blood Count 3.07L, Hemoglobin 10.3L, Hematocrit 30.5L, Mean Corpuscular Volume 99.3H, Mean Corpuscular Hemoglobin 33.5H, Mean Corpuscular Hemoglobin Concent 33.7, Red Cell Distribution Width 14.6H, Platelet Count 159, Neutrophils (%) (Auto) 59.8, Lymphocytes (%) (Auto) 28.3, Monocytes (%) (Auto) 7.2H, Eosinophils (%) (Auto) 1.8, Basophils (%) (Auto) 0.2, Neutrophils # (Auto) 1.9, Lymphocytes # (Auto) 0.9L, Monocytes # (Auto) 0.2, Eosinophils # (Auto) 0.1, Basophils # (Auto) 0.0, C-Reactive Protein, Quantitative 3.28H, Glomerular Filtration Rate 11.5L, Large Unclassified Cells # 0.1, Large Unclassified Cells % 2.7, Magnesium Level 2.1 CBC/BMP Laboratory Tests 11/26/16 06:55 Calcium Level 8.9, Aspartate Amino Transf (AST/SGOT) 34, Alanine Aminotransferase (ALT/SGPT) 34, Alkaline Phosphatase 54, Total Bilirubin 0.7, Total Protein 6.9, Albumin 3.3, Red Blood Count 3.07 L, Mean Corpuscular Volume 99.3 H, Mean Corpuscular Hemoglobin 33.5 H, Mean Corpuscular Hemoglobin Concent 33.7, Red Cell Distribution Width 14.6 H, Neutrophils (%) (Auto) 59.8, Lymphocytes (%) (Auto) 28.3, Monocytes (%) (Auto) 7.2 H, Eosinophils (%) (Auto) 1.8, Basophils (%) (Auto) 0.2, Neutrophils # (Auto) 1.9, Lymphocytes # (Auto) 0.9 L, Monocytes # (Auto) 0.2, Eosinophils # (Auto) 0.1, Basophils # (Auto) 0.0 Microbiology Microbiology 11/23/16 Blood Culture - Preliminary, Resulted No Growth after 48 hours. All Specime... 11/23/16 Blood Culture - Preliminary, Resulted No Growth after 48 hours. All Specime... 11/23/16 Influenza Virus Type A Antigen - Final, Complete 11/23/16 Influenza Virus Type B Antigen - Final, Complete 11/23/16 Urine Culture - Final, Complete RUMA PELAYO MD Nov 26, 2016 18:06
[2016-11-26 22:00] VITALS: BP 114/57
[2016-11-27] MEDS: LEVOTHYROXINE 0.075 MG TAB (75 MCG) PO SCH (05:54)
[2016-11-27 06:00] VITALS: BP 100/51
[2016-11-27] MEDS: TUSSICAPS ER 10/8MG CAPSULE PO SCH (06:43)
[2016-11-27] MEDS: VITAMIN D 1,000 INTERNATIONAL UNITS TABLET PO SCH (06:44)
[2016-11-27] MEDS: guaiFENesin ER 600 MG TAB PO SCH (06:44)
[2016-11-27 07:20] LABS: BASO % 0.3 % (0.0-1.0); EOS # 0.1 K/mm3 (0.0-0.50); EOS % 3.1 % (0.0-3.0); LARGE UNSTAINED CELL # 0.1 K/mm3 (0.0-0.4); LARGE UNSTAINED CELL % 3.4 % (0.0-4.0); LYMPH # 1.3 K/mm3 (1.5-4.5); LYMPH % 40.4 % (24.0-44.0); MEAN CORPUSCULAR HEMOGLOBIN 34.1 pg (27.0-33.0); MEAN CORPUSCULAR HGB CONC 34.5 g/dl (32.0-36.5); MEAN CORPUSCULAR VOLUME 98.7 fl (80.0-96.0); MONO # 0.2 K/mm3 (0.0-0.8); MONO % 6.4 % (0.0-5.0); NEUTROPHILS # 1.5 K/mm3 (1.8-7.7); NEUTROPHILS % 46.3 % (36.0-66.0); PLATELET COUNT, AUTOMATED 141 k/mm3 (150-450); RED CELL DISTRIBUTION WIDTH 14.6 % (11.5-14.5); WHITE BLOOD COUNT 3.1 K/mm3 (4.0-10.0)
[2016-11-27] MEDS: cefTRIAXone SOD 1 GM in D5W MINI-BAG PLUS 50 ML IV SCH ×2 (07:38→07:58)
[2016-11-27] MEDS: HEPARIN SOD (PORCINE) 5000 UNITS/ML VIAL SQ SCH (07:38)
[2016-11-27] MEDS: (RENVELA) SEVELAMER **CARBONate** 800 MG TAB PO SCH (07:38)
[2016-11-27 07:45] LABS: ALBUMIN 3.1 GM/DL (3.2-5.2); ALBUMIN/GLOBULIN RATIO 0.91 (1.00-1.93); BILIRUBIN,TOTAL 0.6 MG/DL (0.2-1.0); CALCIUM LEVEL 8.5 MG/DL (8.8-10.2); CREATININE FOR GFR 5.05 MG/DL (0.55-1.02); MAGNESIUM LEVEL 1.9 MG/DL (1.8-2.4); POTASSIUM SERUM 3.9 MEQ/L (3.5-5.1); TOTAL PROTEIN 6.5 GM/DL (6.4-8.2)
[2016-11-27] MEDS ORDERED: DOXY-278 PO (07:59)
[2016-11-27] MEDS ORDERED: AZITHROMYCIN 250 MG TAB PO SCH (09:00)
--- NOTE | 2016-11-27 11:22 | IPNPDOC ---
Date/Time Seen The patient was seen on 11/27/16 at 11:13. Progress Note DATE OF ENCOUNTER: 11/27/2016 SUBJECTIVE: Ms. Escobedo was seen this morning at bedside. She reports that she had a good nights rest. Her nonproductive cough and weakness are improved. She has intermittent SOB after stem cell transplant, which has been chronic. No increased shortness of breath this morning. Weakness is getting better. She denies chest pain, nausea, vomiting, abdominal pain, diarrhea, headache, dizziness, fever, chills. She is afebrile. She is due for hemodialysis today and will be discharge to have outpatient hemodialysis. OBJECTIVE: Vital Signs Date Time Temp Pulse Resp B/P Pulse Ox O2 Delivery O2 Flow Rate FiO2 11/27/16 09:00 Room Air 11/27/16 06:00 97.8 51 17 100/51 95 I&O- Last 24 Hours up to 6 AM 11/27/16 06:00 Intake Total 1860 ml Balance 1860 ml GENERAL APPEARANCE: Alert and oriented 3. In no acute distress. HEENT: Normocephalic, atraumatic. Extraocular muscles are intact. Moist mucosa. NECK: Supple. Trachea is midline. Jugular veins are not elevated. HEART: Normal S1, S2. Regular rate and rhythm. LUNGS: Good air movement bilaterally. No wheezing or rales appreciated. ABDOMEN: Soft, nontender, nondistended. Bowel sounds are present. She has an ileostomy bag in the right quadrant. EXTREMITIES: No cyanosis or lower extremity edema. Positive pedal pulses bilaterally. NEUROLOGIC: No focal deficits. LABORATORY DATA: 11/27/16 06:40 Calcium Level 8.5 L, Aspartate Amino Transf (AST/SGOT) 26, Alanine Aminotransferase (ALT/SGPT) 31, Alkaline Phosphatase 51, Total Bilirubin 0.6, Total Protein 6.5, Albumin 3.1 L, Red Blood Count 2.91 L, Mean Corpuscular Volume 98.7 H, Mean Corpuscular Hemoglobin 34.1 H, Mean Corpuscular Hemoglobin Concentration 34.5, Red Cell Distribution Width 14.6 H ASSESSMENT/PLAN: 1. End-stage renal disease on hemodialysis Friday, Friday and Friday. She is feeling better and will be discharged today to have outpatient dialysis. Electrolytes and volume status are stable. 2. Influenza B with superimposed bacterial pneumonia, improved. She has received Tamiflu. She will likely be changed to oral antibiotics on discharge. Being managed by primary team. 3. Anemia in chronic renal failure. Hemoglobin is stable. She receives Aranesp as needed during dialysis. 4. Secondary hyperparathyroidism. Patient is on Renvela with meals. 5. History of Crohn disease status post ileostomy. Output has been stable. 6. History of multiple myeloma status post stem cell transplant, in remission. She follows with Dr. Saab. DISPOSITION: She is being discharged today per primary team and will have hemodialysis as outpatient. Continue normal schedule of maintenance dialysis. GME ATTESTATION GME ATTESTATION My preceptor for this patient encounter was physically present in the building during the encounter and was fully available. As needed, all aspects of the patient interview, examination, medical decision making process, and medical care plan development were reviewed and approved by the preceptor. Preceptor is aware and concurs with the plan as stated in the body of this note and will attest to such by his/her cosignature. RENE HUDSON DO Nov 27, 2016 11:22
--- NOTE | 2016-11-27 14:29 | DS.PDOC ---
Discharge Summary General Date of Admission Nov 23, 2016 at 12:48 Date of Discharge Nov 27, 2016 at 10:05 Specialist/Consultants Involve Dr. Mckenzie of nephrology Discharge Summary PROCEDURES PERFORMED DURING STAY: None. COMPLICATIONS/CHIEF COMPLAINT: Generalized Weakness ADMISSION DIAGNOSES: 1. . Viral upper respiratory infection 2. . 3. . DISCHARGE DIAGNOSES: 1. INFLUENZA,END STAGE RENAL DISEASE,WEAKNESS. 2. . 3. . HISTORY OF PRESENT ILLNESS: 71-year-old female with past medical history of Crohn's disease, end-stage renal disease on hemodialysis, hypothyroidism, and multiple myeloma presented to the ER with a chief complaint of generalized fatigue, muscle aches, pains, and subjective fevers/chills. The patient was found to be positive for influenza B test in the ER. The hospitalist service was called to admit the patient given her generalized weakness and her presentation. During the patient' s stay in hospital she was started on Tamiflu even though she was out of the 48 hour window. During the patient's stay in the hospital she received Tamiflu and supportive treatment supportive treatment. Nephrology was consulted and the patient did receive her dialysis while she was here. At this time, the patient states that she is feeling much better and is without any acute complaints. Physical therapy did see the patient and cleared the patient home for discharge. DISCHARGE MEDICATIONS: Please see below. ALLERGIES: Please see below. PHYSICAL EXAMINATION ON DISCHARGE: VITAL SIGNS: Please see below. General Exam: Positive: Alert, Cooperative, No Acute Distress ENT Exam: Positive: Atraumatic, Mucous membr. moist/pink Neck Exam: Negative: JVD Chest Exam: Positive: Diminished Heart Exam: Positive: Normal S1, Normal S2, Rate Normal Abdomen Exam: Positive: Other ( ostomy out in the right lower quadrant), Soft, Negative: Tenderness Extremity Exam: Negative: Edema, Tenderness LABORATORY DATA: Please see below. IMAGING: PA and lateral chest 11/23/2016 Indication: Cough Comparison: PA and lateral chest 08/16/2015 Findings: Cardiac silhouette is of normal size. Atherosclerotic changes are noted in the aortic arch. There is mild hyperinflation and flattening of diaphragms consistent with COPD. Nipple shadows are projected over lower lung george bilaterally. Multiple surgical clips are present within the right axilla. Axillary vascular stent is noted without change. There is diffuse osteopenia. Patient has had previous kyphoplasties at approximately T11, T12, L1 Impression: Hyperinflation compatible with COPD. Small amount of fibrotic scarring is seen within the right lower lobe. Surgical clips in right axilla. Left axillary intravascular stent Diffuse osteopenia with old compression fractures and prior kyphoplasties as above. The patient has history of multiple myeloma. VTE Prophylaxis ordered?: DISCHARGE CONDITION: Medically stable DISPOSITION: 01 Home, Self-Care ACTIVITY: As tolerated DIET: 2 g low sodium diet ITEMS TO FOLLOWUP ON OUTPATIENT: 1. . Follow-up with primary care physician within one to 2 weeks TIME SPENT ON DISCHARGE: Greater than 30 minutes. Vital Signs/I&Os Vital Signs Date Time Temp Pulse Resp B/P Pulse Ox O2 Delivery O2 Flow Rate FiO2 11/27/16 09:00 Room Air 11/27/16 06:00 97.8 51 17 100/51 95 I&O- Last 24 Hours up to 6 AM 11/27/16 06:00 Intake Total 1860 ml Balance 1860 ml Laboratory Data Labs 24H Laboratory Tests 2 11/27/16 06:40: Blood Urea Nitrogen 43#H, Creatinine 5.05H, Sodium Level 136, Potassium Level 3.9, Chloride Level 96L, Carbon Dioxide Level 31, Calcium Level 8.5L, Aspartate Amino Transf (AST/SGOT) 26, Alanine Aminotransferase (ALT/SGPT) 31, Alkaline Phosphatase 51, Total Bilirubin 0.6, Total Protein 6.5, Albumin 3.1L, Albumin/ Globulin Ratio 0.91L, Anion Gap 9, White Blood Count 3.1L, Red Blood Count 2.91L , Hemoglobin 9.9L, Hematocrit 28.7L, Mean Corpuscular Volume 98.7H, Mean Corpuscular Hemoglobin 34.1H, Mean Corpuscular Hemoglobin Concent 34.5, Red Cell Distribution Width 14.6H, Platelet Count 141L, Neutrophils (%) (Auto) 46.3 , Lymphocytes (%) (Auto) 40.4, Monocytes (%) (Auto) 6.4H, Eosinophils (%) (Auto ) 3.1H, Basophils (%) (Auto) 0.3, Neutrophils # (Auto) 1.5L, Lymphocytes # (Auto ) 1.3L, Monocytes # (Auto) 0.2, Eosinophils # (Auto) 0.1, Basophils # (Auto) 0.0 , C-Reactive Protein, Quantitative 1.54H, Glomerular Filtration Rate 9.0L, Large Unclassified Cells # 0.1, Large Unclassified Cells % 3.4, Magnesium Level 1.9 CBC/BMP Laboratory Tests 11/27/16 06:40 Calcium Level 8.5 L, Aspartate Amino Transf (AST/SGOT) 26, Alanine Aminotransferase (ALT/SGPT) 31, Alkaline Phosphatase 51, Total Bilirubin 0.6, Total Protein 6.5, Albumin 3.1 L, Red Blood Count 2.91 L, Mean Corpuscular Volume 98.7 H, Mean Corpuscular Hemoglobin 34.1 H, Mean Corpuscular Hemoglobin Concent 34.5, Red Cell Distribution Width 14.6 H, Neutrophils (%) (Auto) 46.3, Lymphocytes (%) (Auto) 40.4, Monocytes (%) (Auto) 6.4 H, Eosinophils (%) (Auto) 3.1 H, Basophils (%) (Auto) 0.3, Neutrophils # (Auto) 1.5 L, Lymphocytes # (Auto ) 1.3 L, Monocytes # (Auto) 0.2, Eosinophils # (Auto) 0.1, Basophils # (Auto) 0.0 Microbiology Microbiology 11/23/16 Blood Culture - Preliminary, Resulted No Growth after 72 hours. All specime... 11/23/16 Blood Culture - Preliminary, Resulted No Growth after 72 hours. All specime... 11/23/16 Influenza Virus Type A Antigen - Final, Complete 11/23/16 Influenza Virus Type B Antigen - Final, Complete 11/23/16 Urine Culture - Final, Complete Medications Scheduled (Restasis) 0.05 % Emu 1 DROP OU BID (Doxycycline) 100 Mg Cap 100 MG PO BID Cholecalciferol (Vitamin D-3) 2,000 Unit Tab 2,000 UNIT PO DAILY Levothyroxine Sodium (Synthroid) 75 Mcg Tab 75 MCG PO DAILY Sevelamer Carbonate (Renvela) 800 Mg Tab 3,200 MG PO TID Scheduled PRN Acetaminophen/Hydrocodone ([place] 5-325 mg) 1 Tab Tab 1 TAB PO Q6H PRN PRN PAIN Sodium Polystyrene Sulfonate (Kionex) 15 Gm/60 Ml Teena 15 GM PO ASDIRECTED PRN PRN HIGH POTASSIUM Allergies Coded Allergies: Vancomycin (Verified Allergy, Severe, RASH/ITCHING, 10/17/13) RUMA PELAYO MD Nov 27, 2016 14:29
== END 2016-11-27 10:05 | disposition home or self-care (01) | DRG 193 ==
LOC: M ED 08:38 → M ED INP 12:47 → M MS5PR 15:05
PROVIDERS: ADMIT Internal Medicine; ATTEND Hospitalist
PROC: 5A1D60Z (ICD-10-PCS; principal; 2016-11-23)
DX: J11.08 Influenza due to unidentified influenza virus with specified pneumonia (principal); N18.6 End stage renal disease; C90.01 Multiple myeloma in remission; Z94.84 Stem cells transplant status; K50.90 Crohn's disease, unspecified, without complications; J15.9 Unspecified bacterial pneumonia; E03.9 Hypothyroidism, unspecified; D63.1 Anemia in chronic kidney disease; E86.0 Dehydration; Z85.820 Personal history of malignant melanoma of skin; Z99.2 Dependence on renal dialysis; Z90.49 Acquired absence of other specified parts of digestive tract; Z93.2 Ileostomy status; Z87.891 Personal history of nicotine dependence; Z79.899 Other long term (current) drug therapy

== ENCOUNTER → 2017-01-02 | Outpatient (REF) | payer MEDICARE, OTHER ==
[~2017-01-02] MED LIST changes: +DOXY-278 PO; +KION15SU PO; +LEVO75TA4 PO; +NORC5TAB PO; +RENV2TAB PO; +VITA200038 PO
[2017-01-02 13:37] LABS: IMMUNOGLOBULIN G 738 MG/DL (681-1648); IMMUNOGLOBULIN M 22.8 MG/DL (40-230); TOTAL PROTEIN 6.6 GM/DL (6.4-8.2)
[2017-01-03 14:17] LABS: BETA 2 MICROGLOBULIN 11.6 mg/L (0.6-2.4)
[2017-01-04 00:15] LABS: FREE KAPPA LIGHT CHAINS SERUM 408.37 mg/L (3.30-19.40); FREE LAMBDA LIGHT CHAINS SERUM 55.13 mg/L (5.71-26.30); KAPPA/LAMBDA RATIO SERUM 7.41 (0.26-1.65)
[2017-01-06 12:32] LABS: ALBUMIN 4.09 GM/DL (3.29-5.55)
== END ==
LOC: M LAB REF 12:34
PROVIDERS: ATTEND Internal Medicine Medical Oncology
DX: C90.00 Multiple myeloma not having achieved remission (principal)

== ENCOUNTER → 2017-03-11 | Outpatient (REF) | payer MEDICARE, OTHER ==
[~2017-03-11] MED LIST changes: +NORC1TAB4 PO; -NORC5TAB PO
[2017-03-11 16:40] LABS: IMMUNOGLOBULIN G 681 MG/DL (681-1648); IMMUNOGLOBULIN M 22.2 MG/DL (40-230); TOTAL PROTEIN 6.5 GM/DL (6.4-8.2)
[2017-03-12 08:54] LABS: ALBUMIN % 61.3 % (55.8-66.1); GAMMA GLOBULIN % 10.6 % (11.1-18.8)
[2017-03-12 08:55] LABS: ALBUMIN 3.98 GM/DL (3.29-5.55)
[2017-03-15 00:06] LABS: FREE KAPPA LIGHT CHAINS SERUM 371.46 mg/L (3.30-19.40); FREE LAMBDA LIGHT CHAINS SERUM 46.43 mg/L (5.71-26.30)
== END ==
LOC: M LAB REF 12:55
PROVIDERS: ATTEND Internal Medicine Medical Oncology
DX: C90.01 Multiple myeloma in remission (principal)

== ENCOUNTER → 2017-03-26 | Outpatient (CLI) | payer MEDICARE, OTHER ==
--- NOTE | 2017-03-27 11:20 | REP ---
PET/CT: HISTORY: Rising paraprotein. Question recurrence multiple myeloma. COMPARISONS: Prior PET/CT is reportedly done in 2016 at another facility. This is not available. Comparison skeletal survey August 29, 2016. TECHNIQUE: 57 minutes following the intravenous injection of a 9.3 mCi dose of F-18 FDG, three-dimensional PET scintigraphy is acquired from the skull base to the proximal thighs. Triplanar noncontrast CT scanning is acquired through the same anatomic range for attenuation correction, and image registration with scan parameters optimized to minimize radiation exposure to the patient. PET scintigraphy and CT datasets were fused and displayed on a workstation with multiplanar and projection display capability. PET/CT FINDINGS: The patient is on hemodialysis and is status post colectomy and right lower quadrant ileostomy. There is no abnormal hypermetabolic uptake in the head and neck, thorax, abdomen or pelvis or proximal thighs. The patient is status post three-level vertebroplasty. No abnormal skeletal hypermetabolic uptake is seen. IMPRESSION: Negative PET scintigraphy. Signed by Dejon Daniel MD 03/27/2017 12:40 P
== END ==
LOC: M PLARAD 10:02
PROVIDERS: ATTEND Internal Medicine Medical Oncology
DX: C90.02 Multiple myeloma in relapse (principal); C79.89 Secondary malignant neoplasm of other specified sites
CPT/HCPCS: 78815; A9552

== ENCOUNTER → 2017-05-12 | Outpatient (REF) | payer MEDICARE, OTHER ==
[~2017-05-12] MED LIST changes: -MUCI600T34 PO; +MUCI600T37 PO; +RENA1TAB PO; -RENA800T7 PO; +TETR1CAP PO; -TETR250C3 PO
[2017-05-12 14:29] LABS: IMMUNOGLOBULIN G 716 MG/DL (681-1648); IMMUNOGLOBULIN M 23.4 MG/DL (40-230); TOTAL PROTEIN 7.3 GM/DL (6.4-8.2)
[2017-05-14 00:06] LABS: BETA 2 MICROGLOBULIN 5.2 mg/L (0.6-2.4); FREE KAPPA LIGHT CHAINS SERUM 265.6 mg/L (3.3-19.4); FREE LAMBDA LIGHT CHAINS SERUM 43.6 mg/L (5.7-26.3); KAPPA/LAMBDA RATIO SERUM 6.09 (0.26-1.65)
[2017-05-15 11:17] LABS: ALBUMIN % 61.8 % (55.8-66.1)
[2017-05-15 11:18] LABS: ALBUMIN 4.51 GM/DL (3.29-5.55); GAMMA GLOBULIN % 10.7 % (11.1-18.8)
== END ==
LOC: M LAB REF 13:31
PROVIDERS: ATTEND Internal Medicine Medical Oncology
DX: C90.00 Multiple myeloma not having achieved remission (principal)

== ENCOUNTER → 2017-07-08 | Outpatient (REF) | payer MEDICARE, OTHER ==
[2017-07-08 13:58] LABS: IMMUNOGLOBULIN G 687 MG/DL (681-1648); IMMUNOGLOBULIN M 21.3 MG/DL (40-230); TOTAL PROTEIN 6.8 GM/DL (6.4-8.2)
[2017-07-10 14:24] LABS: ALBUMIN 4.12 GM/DL (3.29-5.55); ALBUMIN % 60.6 % (55.8-66.1); GAMMA GLOBULIN % 10.1 % (11.1-18.8)
[2017-07-11 00:06] LABS: FREE KAPPA LIGHT CHAINS SERUM 351.1 mg/L (3.3-19.4); FREE LAMBDA LIGHT CHAINS SERUM 49.9 mg/L (5.7-26.3); KAPPA/LAMBDA RATIO SERUM 7.04 (0.26-1.65)
== END ==
LOC: M LAB REF 08:12
PROVIDERS: ATTEND Internal Medicine Medical Oncology
DX: C90.00 Multiple myeloma not having achieved remission (principal)

== ENCOUNTER → 2017-07-22 | Outpatient (CLI) | payer MEDICARE, OTHER ==
[~2017-07-22] MED LIST changes: +ISOVUE-300 61% 50ML VIAL (Q9967) As Ordered ONE; +MIDAZOLAM INJ 2 MG/2 ML VIAL (J2250) As Ordered ONE; +fentaNYL 100 MCG/2 ML INJECTION (J3010) As Ordered ONE
--- NOTE | 2017-08-13 13:02 | REPKIM ---
DATE OF PROCEDURE: 07/22/2017 PREPROCEDURE DIAGNOSES: End stage renal disease. Dysfunctional left brachial artery to axillary vein arterial venous graft. POSTPROCEDURE DIAGNOSES: End stage renal disease. Dysfunctional left brachial artery to axillary vein arterial venous graft. PROCEDURE: Left brachial artery axillary vein arterial venous graft fistulogram. Left innominate vein angioplasty with 12 x 8 balloon. Left subclavian vein angioplasty with 12 x 8 balloon. Retrograde left brachial artery angiogram. Left axillary vein angioplasty with 8 x 4 balloon. Left graft to axillary vein anastomosis angioplasty with 8 x 4 balloon. SURGEON: Dr. Scout Thomas. BEDSPREAD CUTTER: ANESTHESIA: Local with sedation with 1 mg of Versed, 50 mcg of Fentanyl and 2 mL of 2% lidocaine. ESTIMATED BLOOD LOSS: SEDATION TIME: 1425 p.m. to 1445 p.m. Sedation was administered by myself, the cardiopulmonary monitoring was performed by the nurse in the room. The procedure was performed under my direct supervision and direction and I was present for and directed the entire case. FLUORO TIME: 2.9 minutes. CONTRAST: 15 mL. HEPARIN: None. COMPLICATIONS: None. DRAINS: None. SPECIMENS: None. IMPLANTS: None. INDICATION: The patient is a 72-year-old female with end stage renal disease who underwent creation of a left brachial artery to axillary vein arteriovenous graft and now has pulsatility with excessive bleeding in the graft. Patient will undergo a fistulogram with possible angioplasty and/or stent. Risks, benefits and alternative treatment options were discussed with the patient. PROCEDURE: The patient was taken to the angiography suite and placed supine on the angiography room table and then prepped and draped in a standard surgical fashion. The left brachial artery to axillary vein arterial venous graft was cannulated with a micropuncture needle after anesthetizing the overlying skin with 1% lidocaine. The micropuncture wire was advanced through the micropuncture needle which was upsized to a micropuncture sheath. A fistulogram was performed through a micropuncture sheath showing an approximate 80% stenosis at the graft to axillary vein anastomosis, and at the junction of superior vena cava and innominate vein, there was an approximate 70% stenosis. The left innominate vein and superior vena cava were then angioplastied with a 12 x 8 balloon. The left axillary vein and graft were angioplastied with an 8 x 4 balloon. A completion fistulogram showed resolution of the stenoses with good flow through the graft. A retrograde brachial artery angiogram was performed showing no intervention required and the remainder of the graft to be patent to the brachial artery with no stenosis at the brachial artery anastomosis. Catheters and wires were removed. The sheath was removed and a #2-0 Prolene suture placed at the puncture site for hemostasis. Dressings were then applied. Patient tolerated the procedure well. All instrument, sponge and needle counts were correct at the end of the case. There were no complications. Dr. Thomas was present for and directed the entire case. Patient was transferred to the holding area and subsequently discharged once the #2-0 Prolene suture was removed and good hemostasis was noted. RADIOLOGICAL SUPERVISION INTERPRETATION: The fistulogram showed stenosis at the graft to axillary vein anastomosis as well as the innominate vein/superior vena cava junction. The innominate vein/superior vena cava junction was angioplastied with a 12 x 8 balloon. The axillary vein graft anastomosis was angioplastied with an 8 x 4 balloon. A completion fistulogram showed resolution of the stenoses. Retrograde brachial artery angiogram showed the graft to be widely patent with no intervention required. The fistula which was pulsatile prior to the intervention had a strong thrill palpable at the completion of the intervention.
== END | disposition home or self-care (01) ==
LOC: M IRPRO 12:14
PROVIDERS: ATTEND Surgery Vascular Surgery
DX: T82.590A Other mechanical complication of surgically created arteriovenous fistula, initial encounter (principal); N18.6 End stage renal disease; Z99.2 Dependence on renal dialysis
CPT/HCPCS: 36902; 36907; 99152; 99153; C1725; C1769; C1894; J2250; J3010; Q9967

== ENCOUNTER → 2017-07-25 | Outpatient (CLI) | payer MEDICARE, OTHER ==
[~2017-07-25] MED LIST changes: -ISOVUE-300 61% 50ML VIAL (Q9967) As Ordered ONE; -MIDAZOLAM INJ 2 MG/2 ML VIAL (J2250) As Ordered ONE; -fentaNYL 100 MCG/2 ML INJECTION (J3010) As Ordered ONE
--- NOTE | 2017-07-25 11:49 | REPMRS ---
Patient History The patient states she has not had a clinical breast exam in over a year. Patient is postmenopausal and has history of other cancer at age 64. No known family history of cancer. Taking unspecified hormones for 7 years. Digital Mammo Screening Bilat: July 25, 2017 - Exam #: [id number] Bilateral CC and MLO view(s) were taken. Technologist: Jackie Whitaker, Technologist Prior study comparison: 2016, digital bilateral screening mammo, performed at [facility]. FINDINGS: There are scattered fibroglandular densities. There has been no change in the appearance of the mammogram from the prior studies. There is a mild amount of residual fibroglandular tissue which is fairly symmetric. There is no interval development of dominant mass, architectural distortion, or clustered microcalcification suggestive of malignancy. ASSESSMENT: BI-RADS/ACR category 1 mammogram. Negative. Recommendation Routine screening mammogram in 1 year (for women over age 40). This mammogram was interpreted with the aid of an FDA-approved computer-aided dectection system. Electronically Signed By: Justin Ugalde MD 07/25/17 [id number]
== END ==
LOC: M RAD 10:42
PROVIDERS: ATTEND Registered Nurse
DX: Z12.31 Encounter for screening mammogram for malignant neoplasm of breast (principal); Z85.00 Personal history of malignant neoplasm of unspecified digestive organ

== ENCOUNTER → 2017-09-19 | Outpatient (CLI) | payer MEDICARE, OTHER ==
--- NOTE | 2017-09-19 11:31 | REP ---
Clinical: Shoulder pain. Post transplant. Technique: Axial and AP views of the right clavicle. Findings: Age-related osteopenia and degenerative changes are appreciated involving the clavicle and visualized right shoulder. These findings remain stable when compared to chest x-ray dated 11/23/2016. No obvious acute fracture / dislocation. No obvious osseous lesion. Sternoclavicular and acromioclavicular joints appear stable. Impression: Age-related osteopenia and degenerative changes. Findings are essentially unchanged when compared to x-ray dated 11/23/2016. No obvious focal clavicular abnormality identified. Signed by Celestino López MD 09/19/2017 11:24 A
== END ==
LOC: M RAD 11:10
PROVIDERS: ATTEND Internal Medicine Medical Oncology
DX: C90.01 Multiple myeloma in remission (principal); M85.80 Other specified disorders of bone density and structure, unspecified site

== ENCOUNTER → 2017-11-25 | Outpatient (CLI) | payer MEDICARE, OTHER ==
[~2017-11-25] MED LIST changes: -ALBU17IN INH; -B COTAB8 PO; -DOXY-278 PO; -HYPROMELLOSE OU; +ISOVUE-300 61% 50ML VIAL (Q9967) As Ordered; -KION15SU PO; -LEVO75TA4 PO; -LEVO88TA2 PO; -LOMOTA PO; +MIDAZOLAM INJ 2 MG/2 ML VIAL (J2250) As Ordered; -MUCI100L2 PO; -MUCI600T37 PO; -NEPH1CAP4 PO; -NEUR100C OR; -NEUR300C PO; -NORC1TAB4 PO; -OMEG100011 PO; -POLYOPD OU; -RENA1TAB PO; -RENA800T OR; -RENAGEL 800 MG OR; -RENV2TAB PO; -REST0.05 OU; -SODIUM BICARBONATE OR; -TETR1CAP PO; -TYLE325T5 PO; -VITA200038 PO; -VITACAP31 PO; -[UNRECOGNIZED DRUG - CODE] IV; -[UNRECOGNIZED DRUG - CODE] PO; +fentaNYL 100 MCG/2 ML INJECTION (J3010) As Ordered
== END | disposition home or self-care (01) ==
LOC: M IRPRO 06:56
DX: T82.858A Stenosis of other vascular prosthetic devices, implants and grafts, initial encounter (principal); T82.838A Hemorrhage due to vascular prosthetic devices, implants and grafts, initial encounter; N18.6 End stage renal disease; Z99.2 Dependence on renal dialysis
CPT/HCPCS: 36902

== ENCOUNTER → 2018-01-06 | Outpatient (REF) | payer MEDICARE, OTHER ==
[2018-01-06 14:12] LABS: TOTAL PROTEIN 6.7 GM/DL (6.4-8.2)
[2018-01-06 14:29] LABS: URINE TOTAL PROTEIN 170.7 MG/DL (0-12)
[2018-01-07 14:00] LABS: ALBUMIN % 62.7 % (55.8-66.1); ALPHA-1-GLOBULIN % 4.4 % (2.9-4.9); ALPHA-1-GLOBULINS 0.29 GM/DL (0.17-0.41); ALPHA-2-GLOBULINS % 11.5 % (7.1-11.8); BETA-1-GLOBULINS % 6.7 % (4.7-7.2); BETA-2-GLOBULINS % 4.7 % (3.2-6.5)
[2018-01-07 14:01] LABS: ALPHA-2-GLOBULINS 0.77 GM/DL (0.42-0.99); BETA-1-GLOBULINS 0.45 GM/DL (0.28-0.60); BETA-2-GLOBULINS 0.31 GM/DL (0.19-0.55); GAMMA GLOBULINS 0.67 GM/DL (0.65-1.58)
[2018-01-08 12:55] LABS: UPEP INTERPRETATION M-SPIKE IN BETA; URINE VOLUME RANDOM ML
[2018-01-09 00:06] LABS: FREE KAPPA LIGHT CHAINS SERUM 467.9 mg/L (3.3-19.4); FREE LAMBDA LIGHT CHAINS SERUM 45.5 mg/L (5.7-26.3); KAPPA/LAMBDA RATIO SERUM 10.28 (0.26-1.65)
[2018-01-09 00:06] LABS: BETA 2 MICROGLOBULIN 11.4 mg/L (0.6-2.4)
== END ==
LOC: M LAB REF 12:59
DX: C90.00 Multiple myeloma not having achieved remission (principal)
CPT/HCPCS: 84165

== ENCOUNTER → 2018-02-17 | Outpatient (CLI) | payer MEDICARE, OTHER | END | disposition home or self-care (01) | LOC: M IRPRO 10:34 | DX: T82.590A Other mechanical complication of surgically created arteriovenous fistula, initial encounter (principal); N18.6 End stage renal disease | CPT/HCPCS: 36901 ==

== ENCOUNTER → 2018-03-10 | Outpatient (REF) | payer MEDICARE, OTHER ==
[2018-03-10 14:12] LABS: TOTAL PROTEIN 7.5 GM/DL (6.4-8.2)
[2018-03-11 11:24] LABS: ALBUMIN 4.63 GM/DL (3.29-5.55); ALBUMIN % 61.7 % (55.8-66.1); ALPHA-1-GLOBULIN % 4.5 % (2.9-4.9); ALPHA-1-GLOBULINS 0.34 GM/DL (0.17-0.41); BETA-1-GLOBULINS 0.52 GM/DL (0.28-0.60); BETA-1-GLOBULINS % 6.9 % (4.7-7.2); BETA-2-GLOBULINS 0.37 GM/DL (0.19-0.55); BETA-2-GLOBULINS % 4.9 % (3.2-6.5); GAMMA GLOBULINS 0.75 GM/DL (0.65-1.58)
[2018-03-12 00:07] LABS: BETA 2 MICROGLOBULIN 13.3 mg/L (0.6-2.4)
[2018-03-12 00:07] LABS: FREE KAPPA LIGHT CHAINS SERUM 554.1 mg/L (3.3-19.4); FREE LAMBDA LIGHT CHAINS SERUM 45.9 mg/L (5.7-26.3); KAPPA/LAMBDA RATIO SERUM 12.07 (0.26-1.65)
== END ==
LOC: M LAB REF 13:09
DX: C90.00 Multiple myeloma not having achieved remission (principal)
CPT/HCPCS: 84165

== ENCOUNTER → 2018-03-17 | Outpatient (CLI) | payer MEDICARE, OTHER | LOC: M RAD 14:15 | DX: C90.01 Multiple myeloma in remission (principal) | CPT/HCPCS: 77075 ==

== ENCOUNTER → 2018-04-02 | Outpatient (REF) | payer MEDICARE, OTHER | LOC: M LAB REF 12:47 | DX: C90.01 Multiple myeloma in remission (principal) | CPT/HCPCS: 88300 ==

== ENCOUNTER → 2018-05-04 | Outpatient (CLI) | payer MEDICARE, OTHER ==
[2018-05-04 13:27] LABS: BASO % 0.3 % (0.0-1.0); EOS % 0.7 % (0.0-3.0); HEMATOCRIT 33.2 % (36.0-47.0); HEMOGLOBIN 11.3 g/dl (12.0-15.5); IMMATURE GRANULOCYTE % 0.3 % (0-3.0); LYMPH # 1.7 10^3/uL (1.5-4.5); LYMPH % 28.6 % (24.0-44.0); MEAN CORPUSCULAR HEMOGLOBIN 33.5 pg (27.0-33.0); MEAN CORPUSCULAR VOLUME 98.5 fl (80.0-96.0); MONO # 0.5 10^3/uL (0.0-0.8); MONO % 8.5 % (0.0-5.0); NEUTROPHILS # 3.5 10^3/uL (1.8-7.7); NEUTROPHILS % 61.6 % (36.0-66.0); PLATELET COUNT, AUTOMATED 218 10^3/uL (150-450); RED BLOOD COUNT 3.37 10^6/uL (4.00-5.40); RED CELL DISTRIBUTION WIDTH 13.1 % (11.5-14.5); WHITE BLOOD COUNT 5.8 10^3/uL (4.0-10.0)
[2018-05-04 14:13] LABS: ALKALINE PHOSPHATASE 78 U/L (45-117); ALT/SGPT 22 U/L (12-78); AST/SGOT 22 U/L (7-37); BILIRUBIN,TOTAL 1.8 MG/DL (0.2-1.0); BLOOD UREA NITROGEN 12 MG/DL (7-18); CARBON DIOXIDE LEVEL 35 MEQ/L (21-32); CHLORIDE LEVEL 98 MEQ/L (98-107); CREATININE FOR GFR 2.32 MG/DL (0.55-1.30); GLUCOSE, FASTING 92 MG/DL (70-100); IMMUNOGLOBULIN G 652 MG/DL (681-1648); POTASSIUM SERUM 3.7 MEQ/L (3.5-5.1); TOTAL PROTEIN 7.4 GM/DL (6.4-8.2)
[2018-05-06 00:09] LABS: FREE KAPPA LIGHT CHAINS SERUM 681.1 mg/L (3.3-19.4); FREE LAMBDA LIGHT CHAINS SERUM 41.6 mg/L (5.7-26.3); KAPPA/LAMBDA RATIO SERUM 16.37 (0.26-1.65)
[2018-05-07 11:51] LABS: ALBUMIN 4.52 GM/DL (3.29-5.55); ALBUMIN % 61.1 % (55.8-66.1); ALPHA-1-GLOBULIN % 4.9 % (2.9-4.9); ALPHA-1-GLOBULINS 0.36 GM/DL (0.17-0.41); ALPHA-2-GLOBULINS 0.93 GM/DL (0.42-0.99); ALPHA-2-GLOBULINS % 12.6 % (7.1-11.8); BETA-1-GLOBULINS 0.52 GM/DL (0.28-0.60); BETA-2-GLOBULINS 0.37 GM/DL (0.19-0.55); GAMMA GLOBULIN % 9.4 % (11.1-18.8)
[2018-05-07 21:18] LABS: ANION GAP 8 MEQ/L (8-16); SODIUM LEVEL 141 MEQ/L (136-145)
[2018-05-07 21:19] LABS: ALBUMIN 4.1 GM/DL (3.2-5.2); ALBUMIN/GLOBULIN RATIO 1.24 (1.00-1.93)
== END ==
LOC: M SMT 09:39
DX: C90.01 Multiple myeloma in remission (principal)
CPT/HCPCS: 84165

== ENCOUNTER → 2018-06-29 | Outpatient (REF) | payer MEDICARE, OTHER ==
[2018-06-29 19:34] LABS: IMMUNOGLOBULIN G 528 MG/DL (681-1648); IMMUNOGLOBULIN M 25.8 MG/DL (40-230); TOTAL PROTEIN 6.9 GM/DL (6.4-8.2)
[2018-06-30 11:20] LABS: ALBUMIN 4.13 GM/DL (3.29-5.55); ALBUMIN % 59.8 % (55.8-66.1); ALPHA-1-GLOBULIN % 5.8 % (2.9-4.9); ALPHA-1-GLOBULINS 0.44 GM/DL (0.17-0.41); ALPHA-2-GLOBULINS 0.96 GM/DL (0.42-0.99); ALPHA-2-GLOBULINS % 13.9 % (7.1-11.8); BETA-1-GLOBULINS 0.49 GM/DL (0.28-0.60); BETA-1-GLOBULINS % 7.1 % (4.7-7.2); BETA-2-GLOBULINS 0.33 GM/DL (0.19-0.55); BETA-2-GLOBULINS % 4.8 % (3.2-6.5); GAMMA GLOBULINS 0.59 GM/DL (0.65-1.58)
[2018-06-30 11:21] LABS: GAMMA GLOBULIN % 8.5 % (11.1-18.8)
[2018-07-02 00:10] LABS: FREE KAPPA LIGHT CHAINS SERUM 115.8 mg/L (3.3-19.4); FREE LAMBDA LIGHT CHAINS SERUM 53.2 mg/L (5.7-26.3); KAPPA/LAMBDA RATIO SERUM 2.18 (0.26-1.65)
== END ==
LOC: M LAB REF 18:03
DX: C90.01 Multiple myeloma in remission (principal)
CPT/HCPCS: 84165

== ENCOUNTER 2018-07-15 11:17 | Inpatient (IN) | payer MEDICARE, OTHER ==
[2018-07-15 12:37] LABS: EOS # 0.1 10^3/uL (0.0-0.50); EOS % 3.1 % (0.0-3.0); HEMATOCRIT 25.2 % (36.0-47.0); HEMOGLOBIN 8.6 g/dl (12.0-15.5); IMMATURE GRANULOCYTE % 0.7 % (0-3.0); LYMPH # 0.5 10^3/uL (1.5-4.5); LYMPH % 17.1 % (24.0-44.0); MEAN CORPUSCULAR HEMOGLOBIN 35.5 pg (27.0-33.0); MEAN CORPUSCULAR HGB CONC 34.1 g/dl (32.0-36.5); MEAN CORPUSCULAR VOLUME 104.1 fl (80.0-96.0); MONO # 0.3 10^3/uL (0.0-0.8); MONO % 10.6 % (0.0-5.0); NEUTROPHILS % 68.5 % (36.0-66.0); RED BLOOD COUNT 2.42 10^6/uL (4.00-5.40); RED CELL DISTRIBUTION WIDTH 15.9 % (11.5-14.5); WHITE BLOOD COUNT 2.9 10^3/uL (4.0-10.0)
[2018-07-15 13:45] LABS: ANION GAP 8 MEQ/L (8-16); BLOOD UREA NITROGEN 10 MG/DL (7-18); CALCIUM LEVEL 9.1 MG/DL (8.8-10.2); CARBON DIOXIDE LEVEL 37 MEQ/L (21-32); CHLORIDE LEVEL 96 MEQ/L (98-107); CK-MB VALUE MASS < 1.0 NG/ML (<3.6); CPK CREATINE PHOSPHOKINASE 43 U/L (26-192); CREATININE FOR GFR 2.92 MG/DL (0.55-1.30); GLOMERULAR FILTRATION RATE 16.9 (>39); GLUCOSE, FASTING 111 MG/DL (70-100); MB/CK RELATIVE INDEX 2.33 (< OR =4); NT-PRO BNP 740 PG/ML (<125); POTASSIUM SERUM 3.7 MEQ/L (3.5-5.1); SODIUM LEVEL 141 MEQ/L (136-145); TROPONIN I < 0.02 NG/ML (< 0.10)
[2018-07-15 13:51] LABS: ABG BASE EXCESS 11.7 (-2.0-2.0); ABG HCO3 31.6 MEQ/L (22.0-26.0); ABG O2 SATURATION 98.7 % (95.0-99.0); ABG PARTIAL PRESSURE CO2 25.4 mmHg (35.0-45.0); ABG PARTIAL PRESSURE O2 105.7 mmHg (75.0-100.0); ABG STANDARD HCO3 35.4 MEQ/L (22.0-26.0); ABG TOTAL CO2 32.4 MEQ/L (23.0-31.0)
[2018-07-15 13:55] LABS: ABG pH (ARTERIAL) 7.713 UNITS (7.350-7.450)
[2018-07-15 14:28] LABS: D-DIMER QUANT 2548.5 ng/ml (<500)
[2018-07-15] MEDS ORDERED: ISOVUE-370 76% 100ML VIAL (Q9967) As Ordered (15:11)
[2018-07-15 15:17] LABS: REASON FOR REVIEW PLATELET MORPHOLOGY; SLIDE REVIEW Report; SOURCE PERIPHERAL SMEAR
[2018-07-15] MEDS ORDERED: ACETAMINOPHEN TAB 650MG DOSE (2X325MG) PO (17:45)
[2018-07-15] MEDS ORDERED: SOD POLYSTYRENE SULFONATE SUSP 15 GM/60 ML UD PO (17:45)
[2018-07-15] MEDS ORDERED: ONDANSETRON 4 MG TAB (S0181) PO (17:45)
[2018-07-15 18:05] LABS: ABG BASE EXCESS 10.7 (-2.0-2.0); ABG HCO3 33.2 MEQ/L (22.0-26.0); ABG PARTIAL PRESSURE CO2 35.7 mmHg (35.0-45.0); ABG PARTIAL PRESSURE O2 84.4 mmHg (75.0-100.0); ABG STANDARD HCO3 34.4 MEQ/L (22.0-26.0); ABG TOTAL CO2 34.3 MEQ/L (23.0-31.0); ABG pH (ARTERIAL) 7.586 UNITS (7.350-7.450)
[2018-07-15 19:51] LABS: RETIC HEMOGLOBIN EQUIVALENT 38.9 pg (24-36); RETICULOCYTE # 43.9 10^9/L (17-77); RETICULOCYTE % 1.8 % (0.5-1.5)
[2018-07-15 19:53] LABS: LDH LACTATE DEHYDROGENASE 156 U/L (84-246)
[2018-07-15] MEDS ORDERED: GASTROGRAFIN SOLUTION 30ML PO (19:55)
[2018-07-15] MEDS: GASTROGRAFIN SOLUTION 30ML PO ×2 (21:29→21:30)
[2018-07-15 22:22] LABS: HEMATOCRIT 26.1 % (36.0-47.0); HEMOGLOBIN 8.7 g/dl (12.0-15.5); MEAN CORPUSCULAR HEMOGLOBIN 35.1 pg (27.0-33.0); MEAN CORPUSCULAR HGB CONC 33.3 g/dl (32.0-36.5); MEAN CORPUSCULAR VOLUME 105.2 fl (80.0-96.0); RED BLOOD COUNT 2.48 10^6/uL (4.00-5.40); RED CELL DISTRIBUTION WIDTH 16.1 % (11.5-14.5); WHITE BLOOD COUNT 3.3 10^3/uL (4.0-10.0)
[2018-07-15 23:03] LABS: IMMATURE PLATELET FRACTION % 17.1 % (0.0-9.6); PLATELET COUNT, AUTOMATED 76 10^3/uL (150-450)
[2018-07-15 23:10] LABS: IMMEDIATE SPIN CROSSMATCH 1 1
[2018-07-15] MEDS: NORCO, ANEXSIA 5/325MG TABLET (HYDROcodone/ACETAMINOPHEN) PO (23:43)
[2018-07-16 00:15] LABS: FERRITIN 3420 NG/ML (8-252); IRON (FE) 69 UG/DL (50-170); TOTAL IRON BINDING CAPACITY 277 UG/DL (250-450)
[2018-07-16 00:16] LABS: PERCENT SATURATION 24.9 % (13.2-45.0)
[2018-07-16 04:30] LABS: KETONE, URINE AUTO RFX NEGATIVE (NEGATIVE); LEUKOCYTE ESTERASE UR AUTO RFX TRACE (NEGATIVE); MUCUS, URINE RFX SMALL (NEGATIVE); NITRITE, URINE AUTO RFX NEGATIVE (NEGATIVE); RBC, URINE AUTO RFX 1 /HPF (0-3); SPECIFIC GRAVITY UR AUTO RFX 1.029 (1.002-1.035); SQUAM EPITHELIAL CELL UR AURFX 6 /HPF (0-6)
[2018-07-16 04:31] LABS: WBC, URINE AUTO RFX 16 /HPF (0-3)
[2018-07-16] MEDS: LEVOTHYROXINE 50MCG TABLET (0.05MG) PO (06:33)
[2018-07-16] MEDS: VITAMIN D 1,000 INTERNATIONAL UNITS TABLET PO (08:28)
[2018-07-16] MEDS: (RENVELA) SEVELAMER **CARBONate** 800 MG TAB PO ×4 (08:29→20:24)
[2018-07-16 08:36] LABS: BASO % 0.3 % (0.0-1.0); EOS # 0.6 10^3/uL (0.0-0.50); EOS % 18.8 % (0.0-3.0); HEMATOCRIT 27.7 % (36.0-47.0); HEMOGLOBIN 9.2 g/dl (12.0-15.5); IMMATURE GRANULOCYTE % 0.9 % (0-3.0); LYMPH # 0.9 10^3/uL (1.5-4.5); MEAN CORPUSCULAR HEMOGLOBIN 33.8 pg (27.0-33.0); MEAN CORPUSCULAR HGB CONC 33.2 g/dl (32.0-36.5); MEAN CORPUSCULAR VOLUME 101.8 fl (80.0-96.0); MONO # 0.2 10^3/uL (0.0-0.8); MONO % 6.9 % (0.0-5.0); NEUTROPHILS # 1.6 10^3/uL (1.8-7.7); NEUTROPHILS % 47.1 % (36.0-66.0); RED BLOOD COUNT 2.72 10^6/uL (4.00-5.40); RED CELL DISTRIBUTION WIDTH 17.8 % (11.5-14.5); WHITE BLOOD COUNT 3.4 10^3/uL (4.0-10.0)
[2018-07-16] MEDS ORDERED: ENOXAPARIN 30 MG/0.3 ML SYR (J1650) SC (09:00)
[2018-07-16 09:38] LABS: PLATELET COUNT, AUTOMATED 72 10^3/uL (150-450)
[2018-07-16 10:37] LABS: ALBUMIN 2.9 GM/DL (3.2-5.2); ALKALINE PHOSPHATASE 79 U/L (45-117); ALT/SGPT 29 U/L (12-78); ANION GAP 11 MEQ/L (8-16); AST/SGOT 18 U/L (7-37); BLOOD UREA NITROGEN 18 MG/DL (7-18); CALCIUM LEVEL 8.3 MG/DL (8.8-10.2); CARBON DIOXIDE LEVEL 33 MEQ/L (21-32); CHLORIDE LEVEL 90 MEQ/L (98-107); CREATININE FOR GFR 4.35 MG/DL (0.55-1.30); FREE THYROXINE INDEX 5.6 % (1.3-4.8); GLOMERULAR FILTRATION RATE 10.7 (>39); GLUCOSE, FASTING 76 MG/DL (70-100); POTASSIUM SERUM 3.6 MEQ/L (3.5-5.1); PREALBUMIN 27.3 MG/DL (20.0-40.0); SODIUM LEVEL 134 MEQ/L (136-145); T UPTAKE 38 % (30-39); THYROXINE (T4) 14.7 UG/DL (4.5-12.0); TOTAL PROTEIN 5.8 GM/DL (6.4-8.2)
[2018-07-16 14:03] LABS: IMMEDIATE SPIN CROSSMATCH 1 1
[2018-07-16 16:48] LABS: FOLATE 7.4 NG/ML (>5.4)
[2018-07-16 17:10] LABS: HEMATOCRIT 33.1 % (36.0-47.0); HEMOGLOBIN 11.5 g/dl (12.0-15.5); MEAN CORPUSCULAR HEMOGLOBIN 33.6 pg (27.0-33.0); MEAN CORPUSCULAR HGB CONC 34.7 g/dl (32.0-36.5); MEAN CORPUSCULAR VOLUME 96.8 fl (80.0-96.0); RED BLOOD COUNT 3.42 10^6/uL (4.00-5.40); RED CELL DISTRIBUTION WIDTH 18.3 % (11.5-14.5); WHITE BLOOD COUNT 3.9 10^3/uL (4.0-10.0)
[2018-07-16 17:13] LABS: PLATELET COUNT, AUTOMATED 69 10^3/uL (150-450)
[2018-07-17] MEDS: LEVOTHYROXINE 50MCG TABLET (0.05MG) PO (06:26)
[2018-07-17] MEDS: (RENVELA) SEVELAMER **CARBONate** 800 MG TAB PO (06:26)
[2018-07-17] MEDS: VITAMIN D 1,000 INTERNATIONAL UNITS TABLET PO (06:26)
[2018-07-17 08:06] LABS: HAPTOGLOBIN 271 mg/dL (34-200)
[2018-07-17] MEDS ORDERED: diphenhydrAMINE 25 MG CAP PO (09:00)
[2018-07-17 10:53] LABS: CORTISOL AM 21.7 UG/DL (4.3-22.4)
== END 2018-07-17 11:32 | disposition home or self-care (01) | DRG 811 ==
LOC: M ED 11:17 → M MSPAV 07-16 13:27 → M ED INP 19:35
PROC: 30233N1 Transfusion of Nonautologous Red Blood Cells into Peripheral Vein, Percutaneous Approach (ICD-10-PCS; principal; 2018-07-15)
DX: D64.81 Anemia due to antineoplastic chemotherapy (principal); N18.6 End stage renal disease; C90.00 Multiple myeloma not having achieved remission; E03.9 Hypothyroidism, unspecified; Z85.828 Personal history of other malignant neoplasm of skin; D63.1 Anemia in chronic kidney disease; D72.819 Decreased white blood cell count, unspecified; N25.0 Renal osteodystrophy; D61.818 Other pancytopenia; Z87.891 Personal history of nicotine dependence; Z90.49 Acquired absence of other specified parts of digestive tract; Z79.899 Other long term (current) drug therapy; Z88.1 Allergy status to other antibiotic agents; Z99.2 Dependence on renal dialysis; Z93.2 Ileostomy status

== ENCOUNTER → 2018-07-28 | Outpatient (CLI) | payer MEDICARE, OTHER | LOC: M RAD 09:14 | DX: Z12.31 Encounter for screening mammogram for malignant neoplasm of breast (principal); Z92.29 Personal history of other drug therapy ==

== ENCOUNTER → 2018-07-28 | Outpatient (CLI) | payer MEDICARE, OTHER ==
[~2018-07-28] MED LIST changes: -ISOVUE-300 61% 50ML VIAL (Q9967) As Ordered; +ISOVUE-370 76% 100ML VIAL (Q9967) As Ordered; -MIDAZOLAM INJ 2 MG/2 ML VIAL (J2250) As Ordered; -fentaNYL 100 MCG/2 ML INJECTION (J3010) As Ordered
== END ==
LOC: M RAD 16:50
DX: Z12.31 Encounter for screening mammogram for malignant neoplasm of breast (principal); C90.01 Multiple myeloma in remission; N28.1 Cyst of kidney, acquired; I70.0 Atherosclerosis of aorta; R06.02 Shortness of breath
CPT/HCPCS: Q9967

== ENCOUNTER → 2018-07-28 | Outpatient (REF) | payer MEDICARE, OTHER ==
[2018-07-28 19:43] LABS: IMMUNOGLOBULIN G 722 MG/DL (681-1648); IMMUNOGLOBULIN M 59 MG/DL (40-230); TOTAL PROTEIN 7.2 GM/DL (6.4-8.2)
[2018-07-30 11:20] LABS: ALBUMIN % 54.1 % (55.8-66.1); ALPHA-1-GLOBULIN % 6.7 % (2.9-4.9); ALPHA-1-GLOBULINS 0.48 GM/DL (0.17-0.41); ALPHA-2-GLOBULINS % 16.7 % (7.1-11.8); BETA-1-GLOBULINS 0.53 GM/DL (0.28-0.60); BETA-1-GLOBULINS % 7.3 % (4.7-7.2); BETA-2-GLOBULINS 0.38 GM/DL (0.19-0.55); BETA-2-GLOBULINS % 5.3 % (3.2-6.5); GAMMA GLOBULINS 0.71 GM/DL (0.65-1.58)
[2018-07-30 11:21] LABS: GAMMA GLOBULIN % 9.9 % (11.1-18.8)
[2018-07-31 00:06] LABS: KAPPA/LAMBDA RATIO SERUM 1.56 (0.26-1.65)
== END ==
LOC: M LAB REF 17:55
DX: C90.01 Multiple myeloma in remission (principal)

== ENCOUNTER → 2018-08-06 | Outpatient (CLI) | payer MEDICARE, OTHER ==
[~2018-08-06] MED LIST changes: +ISOVUE-300 61% 50ML VIAL (Q9967) As Ordered; -ISOVUE-370 76% 100ML VIAL (Q9967) As Ordered; +LIDOCAINE 2% MDV 20 ML VIAL As Ordered; +MIDAZOLAM INJ 2 MG/2 ML VIAL (J2250) As Ordered; +fentaNYL 100 MCG/2 ML INJECTION (J3010) As Ordered
== END | disposition home or self-care (01) ==
LOC: M IRPRO 06:19
DX: T82.868A Thrombosis due to vascular prosthetic devices, implants and grafts, initial encounter (principal); I87.1 Compression of vein; N18.6 End stage renal disease; Z99.2 Dependence on renal dialysis
CPT/HCPCS: 36905

== ENCOUNTER → 2018-08-14 | Outpatient (CLI) | payer MEDICARE, OTHER ==
[~2018-08-14] MED LIST changes: +ALTEPLASE 2 MG/2 ML VIAL (J2997 PER 1MG) As Ordered; +HEPARIN 1,000 UNITS/ML 10ML VIAL (FOR RADIOLOGY& DIALYSIS ONLY) As Ordered
== END | disposition home or self-care (01) ==
LOC: M IRPRO 08:28
DX: T82.868A Thrombosis due to vascular prosthetic devices, implants and grafts, initial encounter (principal); I87.1 Compression of vein; N18.6 End stage renal disease; Z99.2 Dependence on renal dialysis
CPT/HCPCS: 36905

== ENCOUNTER 2018-08-26 09:42 | Outpatient (RCR) | payer MEDICARE, OTHER | END 2018-09-02 | LOC: M PT 09:42 | DX: G72.0 Drug-induced myopathy (principal) | CPT/HCPCS: 97110 ==

== ENCOUNTER 2018-08-27 10:59 | Outpatient (CLI) | payer MEDICARE, OTHER ==
[2018-08-27 12:50] LABS: IMMEDIATE SPIN CROSSMATCH 1 2
[2018-08-27] MEDS ORDERED: ACETAMINOPHEN TAB 650MG DOSE (2X325MG) As Ordered ×2 (12:51)
[2018-08-27] MEDS ORDERED: diphenhydrAMINE 25 MG CAP As Ordered ×2 (12:52)
[2018-08-27] MEDS: diphenhydrAMINE 25 MG CAP PO ×2 (12:53)
[2018-08-27] MEDS: ACETAMINOPHEN TAB 650MG DOSE (2X325MG) PO ×2 (12:54)
== END 2018-08-27 17:00 | disposition home or self-care (01) ==
LOC: M INFU 10:59
DX: D64.9 Anemia, unspecified (principal); C90.00 Multiple myeloma not having achieved remission; G72.0 Drug-induced myopathy; N18.6 End stage renal disease; Z99.2 Dependence on renal dialysis; Z92.29 Personal history of other drug therapy; Z79.899 Other long term (current) drug therapy; Z88.0 Allergy status to penicillin
CPT/HCPCS: 36430

== ENCOUNTER → 2018-09-29 | Outpatient (CLI) | payer MEDICARE, OTHER ==
[~2018-09-29] MED LIST changes: -ALTEPLASE 2 MG/2 ML VIAL (J2997 PER 1MG) As Ordered; +E-Z-GAS II EFFERVESCENT PACKET (SODIUM BICARB./CITRIC ACID/SIMETHICONE) As Ordered; +E-Z-HD 98% w/w 340GM SUSP BTL As Ordered; +E-Z-PAQUE 96% w/w SUSP 176GM BTL As Ordered; -HEPARIN 1,000 UNITS/ML 10ML VIAL (FOR RADIOLOGY& DIALYSIS ONLY) As Ordered; -ISOVUE-300 61% 50ML VIAL (Q9967) As Ordered; -LIDOCAINE 2% MDV 20 ML VIAL As Ordered; -MIDAZOLAM INJ 2 MG/2 ML VIAL (J2250) As Ordered; -fentaNYL 100 MCG/2 ML INJECTION (J3010) As Ordered
== END ==
LOC: M RAD 09:22
DX: R13.10 Dysphagia, unspecified (principal); K21.9 Gastro-esophageal reflux disease without esophagitis
CPT/HCPCS: 74220

== ENCOUNTER 2018-09-30 15:19 | Outpatient (CLI) | payer MEDICARE, OTHER ==
[2018-09-30 17:37] LABS: IMMEDIATE SPIN CROSSMATCH 1 1
[2018-09-30] MEDS: ACETAMINOPHEN 325 MG TAB PO (17:37)
== END 2018-09-30 20:55 | disposition home or self-care (01) ==
LOC: M OPCLI5PR 15:19 → M MS5PR 15:33 → M OPCLI5PR 20:55
DX: N18.6 End stage renal disease (principal); D63.1 Anemia in chronic kidney disease; Z92.25 Personal history of immunosuppression therapy; Z88.1 Allergy status to other antibiotic agents
CPT/HCPCS: 36430

== ENCOUNTER → 2018-10-02 | Outpatient (RCR) | payer MEDICARE, OTHER ==
[~2018-10-02] MED LIST changes: +ACYC200C8 PO; +ALBU17IN INH; +B COTAB8 PO; +BENA25CA4 PO; +DEXA4TA PO; +DOXY-350 PO; -E-Z-GAS II EFFERVESCENT PACKET (SODIUM BICARB./CITRIC ACID/SIMETHICONE) As Ordered; -E-Z-HD 98% w/w 340GM SUSP BTL As Ordered; -E-Z-PAQUE 96% w/w SUSP 176GM BTL As Ordered; +HYPROMELLOSE OU; +KION15SU PO; +LEVO75TA4 PO; +LEVO88TA2 PO; +LOMOTA PO; +MIDO2.5T PO; +MUCI100L2 PO; +MUCI600T37 PO; +NEPH1CAP4 PO; +NEUR100C OR; +NEUR300C PO; +NORC1TAB4 PO; +OMEG100011 PO; +POLYOPD OU; +RENA1TAB PO; +RENA800T OR; +RENAGEL 800 MG OR; +RENV2TAB PO; +REST0.05 OU; +REVL5CAP2 PO; +SODIUM BICARBONATE OR; +TETR1CAP PO; +TYLE325T5 PO; +VITA200038 PO; +VITACAP31 PO; +ZOVI5OIN8 TOP; +[UNRECOGNIZED DRUG - CODE] IV; +[UNRECOGNIZED DRUG - CODE] PO; +[UNRECOGNIZED DRUG - CODE] PO; +[UNRECOGNIZED DRUG - CODE] PO
== END ==
LOC: M PT 09-03 13:13 → M ST 09-08 14:12 → M PT 09-17 07:09
PROVIDERS: ATTEND Internal Medicine Medical Oncology
DX: G72.0 Drug-induced myopathy (principal); R49.0 Dysphonia
CPT/HCPCS: 92507; 92524; 97110; 97116; G9171; G9172; G9173

== ENCOUNTER → 2018-10-09 | Outpatient (CLI) | payer MEDICARE, OTHER ==
[~2018-10-09] MED LIST changes: +ISOVUE-300 61% 50ML VIAL (Q9967) As Ordered ONE; +LIDOCAINE 2% MDV 20 ML VIAL As Ordered ONE; +MIDAZOLAM INJ 2 MG/2 ML VIAL (J2250) As Ordered ONE; +fentaNYL 100 MCG/2 ML INJECTION (J3010) As Ordered ONE
[2018-10-09 11:53] LABS: HEMATOCRIT 29.8 % (36.0-47.0); MEAN CORPUSCULAR HEMOGLOBIN 34.5 pg (27.0-33.0); MEAN CORPUSCULAR HGB CONC 33.6 g/dl (32.0-36.5); MEAN CORPUSCULAR VOLUME 102.8 fl (80.0-96.0); PLATELET COUNT, AUTOMATED 206 10^3/uL (150-450); WHITE BLOOD COUNT 6.2 10^3/uL (4.0-10.0)
--- NOTE | 2018-10-22 08:24 | REPIR ---
DATE OF PROCEDURE: 10/09/2018 ATTENDING SURGEON: Dr. Breonna Thomas CREDIT ADVISOR: Judith Ocasio and Anuradha Rivera PREOPERATIVE DIAGNOSIS: End-stage renal disease, dysfunctional left brachial artery to axillary arteriovenous graft thrombosis. POSTOPERATIVE DIAGNOSIS: End-stage renal disease, dysfunctional left brachial artery to axillary arteriovenous graft thrombosis. PROCEDURE: Left brachial artery axillary vein arteriovenous graft fistulogram, left innominate vein angioplasty with 12 x 8 balloon, left subclavian vein angioplasty with 12 x 8 balloon, left axillary vein angioplasty with 8 x 200 balloon, left subclavian vein angioplasty with 8 x 200 balloon, left brachial artery to axillary vein arteriovenous graft angioplasty with 8 x 200 balloon. INDICATION: The patient is a 73-year-old female with end-stage renal disease and a left brachial artery to axillary vein arteriovenous graft which has had multiple episodes of thrombosis in the past and has undergone thrombolysis as well as stenting. The patient will undergo a fistulogram with possible angioplasty stent and/or atherectomy. Risks, benefits and alternative treatment options were discussed with the patient. ANESTHESIA: Local with sedation with 2 mg Versed. 0 mcg of fentanyl and 2 mL of 2% lidocaine. FLUORO TIME: 1.3 minutes. CONTRAST: 4 mL. SEDATION TIME: 11:45 a.m. to 12:11 p.m. for a total 26 minute. Sedation was administered by myself through the access in the arteriovenous fistula. Cardiopulmonary monitoring was performed by the nurse in the room under my direct supervision. I was present for and directed the entire case. DESCRIPTION OF PROCEDURE: The patient was taken to the angiography suite, placed supine on the angiography table and the left upper extremity was prepped and draped in a standard surgical fashion. The fistula was cannulated and a sheath placed. A fistulogram showed stenosis in the axillary vein, subclavian and innominate vein. These were angioplastied with an 8 x 200 and 12 x 8 balloon with followup fistulogram showing no residual stenosis. The sheath was removed and a 2-0 Prolene suture placed at the puncture site for hemostasis. Dressings were then applied. The patient tolerated the procedure well. All instrument, sponge and needle counts were correct at the end the case. There were no complications. Dr. Thomas was present for and directed the entire case. The patient was transferred to the holding area and subsequently discharged in stable condition.
== END ==
LOC: M IRPRO 09:06
PROVIDERS: ATTEND Surgery Vascular Surgery
DX: T82.858A Stenosis of other vascular prosthetic devices, implants and grafts, initial encounter (principal); T82.868A Thrombosis due to vascular prosthetic devices, implants and grafts, initial encounter; N18.6 End stage renal disease; Z99.2 Dependence on renal dialysis
CPT/HCPCS: 36902; 36907; 85027; 99152; 99153; C1725; C1769; C1894; J2250; J3010; Q9967

== ENCOUNTER → 2018-10-14 | Outpatient (CLI) | payer MEDICARE, OTHER ==
[~2018-10-14] MED LIST changes: +ALTEPLASE 2 MG/2 ML VIAL (J2997 PER 1MG) As Ordered ONE; +HEPARIN SOD (PORCINE) 5000 UNITS/ML VIAL As Ordered ONE
--- NOTE | 2018-10-22 08:45 | REPIR ---
DATE OF PROCEDURE: 10/14/2018 ATTENDING PHYSICIAN: Dr. Breonna Thomas ROUTE SALES REPRESENTATIVE: Judith Ocasio and Nisha Givens PREOPERATIVE DIAGNOSIS: End-stage renal disease, thrombosed left brachial artery to axillary vein arteriovenous graft. POSTOPERATIVE DIAGNOSIS: End-stage renal disease, thrombosed left brachial artery to axillary vein arteriovenous graft. PROCEDURE: Insulation of thrombolytic with 6 mg of TPA and 5000 units heparin left brachial artery to axillary vein arteriovenous graft fistulogram and thrombectomy left axillary vein subclavian vein innominate vein angioplasty with 8 x 200 mm balloon, left subclavian vein innominate vein angioplasty with 12 x 8 balloon. INDICATION: The patient is a 73-year-old female with end-stage renal disease who dialyzes through a left brachial artery to axillary vein arteriovenous graft which has thrombosed. The patient undergo a fistulogram with thrombolysis. Risks, benefits, and alternative options were discussed with the patient. ANESTHESIA: Was 2 mg of Versed, 0 mcg of fentanyl and 2 mL of 2% lidocaine. FLUORO TIME: 3.7 minutes. CONTRAST: 2 mL of Isovue-300. SEDATION TIME: Was from 10:40 a.m. to 11:10 a.m. for a total of 30 minutes with the sedation being administered by myself through the access in the graft and the cardiopulmonary monitoring performed by the nurse the room, both under my direct supervision. I was present for and directed the entire case. PROCEDURE: The patient was taken to the angiography suite, placed supine on the angiography room table and then prepped and draped in a standard surgical fashion. The left brachial artery to axillary vein arteriovenous graft was cannulated, two sheaths were placed in crossing fashion, thrombolysis was then performed with 8 and 12 mm balloons. The left innominate vein and subclavian vein underwent angioplasty with a 12 x 8 balloon. The left graft axillary vein, subclavian vein and innominate vein underwent angioplasty with a 8 x 200 balloon. Completion fistulogram showed resolution of the stenosis and thrombosis with excellent flow through the graft which had a strong thrill. Sheaths were removed and 2-0 Prolene sutures placed at the puncture site for hemostasis. Dressings were then applied. The patient tolerated the procedure well. All instrument, sponge, and needle counts were correct at the end of the case. There were no complications. Dr. Thomas was present for and directed the entire case. The patient was transferred to the holding area and subsequent discharged in stable condition.
--- NOTE | 2018-10-22 09:18 | RO ---
DATE OF PROCEDURE: 10/16/2018 ATTENDING SURGEON: Dr. Breonna Thomas O AND M SUPERVISOR: None. PREOPERATIVE DIAGNOSES: End-stage renal disease, thrombosed left brachial artery to axillary vein arteriovenous graft. POSTOPERATIVE DIAGNOSES: End-stage renal disease, thrombosed left brachial artery to axillary vein arteriovenous graft. PROCEDURE: Left brachial artery to axillary vein arteriovenous graft, open thromboembolectomy with 4 and 5 mm Ladonna balloons. INDICATION: The patient is a 73-year-old female with multiple episodes of thrombosis of her left brachial artery to axillary arteriovenous graft with continued thrombosis and chronic thrombus noted on fistulogram. The patient will undergo an open thrombectomy with possible angioplasty, stent and/or atherectomy. Risks, benefits, alternative treatment options were discussed with the patient. ANESTHESIA: Local MAC. ESTIMATED BLOOD LOSS: 150 mL IV FLUIDS: 300 mL HEPARIN: None. COMPLICATIONS: None. DRAINS: None. SPECIMENS: None. IMPLANTS: None. PROCEDURE The patient was taken to the operating room, placed supine on the operating room table, left upper extremity was prepped and draped in a standard surgical fashion. An incision was made overlying the graft at the antecubital fossa after anesthetizing the overlying skin with 1% lidocaine mixed with 0.5% Marcaine. The incision was carried down to the graft, which was dissected free sharply and then encircled circumferentially with vessel loops. A small opening was made in the graft and mechanical thrombectomy of the graft was performed with 4 and 5-Telugu Ladonna with good inflow noted after a mechanical thrombectomy and good backbleeding noted, after which the arteriotomy in the graft was closed using #6-0 Prolene suture. There was a good thrill in the graft at the completion of the thrombectomy. Skin was closed using mara. Dressings were then applied. The patient tolerated the procedure well. All instrument, sponge, needle counts were correct at the end the case. There were no complications. Dr. Thomas was present for and directed the entire case. The patient was transferred to the recovery room awake, alert, extubated and in stable condition.
== END | disposition home or self-care (01) ==
LOC: M IRPRO 06:52
PROVIDERS: ATTEND Surgery Vascular Surgery
DX: T82.858A Stenosis of other vascular prosthetic devices, implants and grafts, initial encounter (principal); N18.6 End stage renal disease; Z99.2 Dependence on renal dialysis
CPT/HCPCS: 36905; 36907; 99152; 99153; C1725; C1769; C1894; J2250; J2997; J3010; Q9967

== ENCOUNTER 2018-10-16 20:15 | Inpatient (IN) | payer MEDICARE, OTHER ==
[2018-10-16] MEDS: ceFAZolin 2 GM/D5W 50 ML IV BAG (J0690 PER 500MG) As Ordered (16:10)
[2018-10-16] MEDS: BUPIVACAINE HCL 0.5% 10 ML VIAL As Ordered ×2 (16:40→16:44)
[2018-10-16] MEDS: HEPARIN SOD (PORCINE) 5000 UNITS/ML VIAL As Ordered (16:43)
[2018-10-16] MEDS: LIDOCAINE 1% MDV 20ML VIAL As Ordered (16:44)
[~2018-10-16 20:15] MED LIST changes: -ACYC200C8 PO; -ALBU17IN INH; +ALTEPLASE 2 MG/2 ML VIAL (J2997 PER 1MG) As Ordered; -ALTEPLASE 2 MG/2 ML VIAL (J2997 PER 1MG) As Ordered ONE; -B COTAB8 PO; -BENA25CA4 PO; -DEXA4TA PO; -DOXY-350 PO; +HEPARIN 1,000 UNITS/ML 10ML VIAL (FOR RADIOLOGY& DIALYSIS ONLY) As Ordered; +HEPARIN SOD (PORCINE) 5000 UNITS/ML VIAL As Ordered; -HEPARIN SOD (PORCINE) 5000 UNITS/ML VIAL As Ordered ONE; -HYPROMELLOSE OU; +ISOVUE-300 61% 50ML VIAL (Q9967) As Ordered; -ISOVUE-300 61% 50ML VIAL (Q9967) As Ordered ONE; -KION15SU PO; -LEVO75TA4 PO; -LEVO88TA2 PO; +LIDOCAINE 2% INJ 100 MG/5 ML SDV (FOR ANES.) As Ordered; +LIDOCAINE 2% MDV 20 ML VIAL As Ordered; -LIDOCAINE 2% MDV 20 ML VIAL As Ordered ONE; -LOMOTA PO; +LR 1,000 ML IV; +MIDAZOLAM INJ 2 MG/2 ML VIAL (J2250) As Ordered; -MIDAZOLAM INJ 2 MG/2 ML VIAL (J2250) As Ordered ONE; -MIDO2.5T PO; -MUCI100L2 PO; -MUCI600T37 PO; -NEPH1CAP4 PO; -NEUR100C OR; -NEUR300C PO; -NORC1TAB4 PO; -OMEG100011 PO; +ONDANSETRON 4MG/2ML VIAL (J2405) IV; +PERCOCET 5MG/325MG TAB PO; +PHENYLEPHRINE HCL INJ 10 MG in D5W 100 ML IV; +PHENYLephrine HCL 500 MCG/5 ML (100MCG/ML) SYRINGE (J2370) As Ordered; -POLYOPD OU; +PROPOFOL 200 MG/20 ML VIAL As Ordered; -RENA1TAB PO; -RENA800T OR; -RENAGEL 800 MG OR; -RENV2TAB PO; -REST0.05 OU; -REVL5CAP2 PO; -SODIUM BICARBONATE OR; -TETR1CAP PO; -TYLE325T5 PO; -VITA200038 PO; -VITACAP31 PO; -ZOVI5OIN8 TOP; -[UNRECOGNIZED DRUG - CODE] IV; -[UNRECOGNIZED DRUG - CODE] PO; -[UNRECOGNIZED DRUG - CODE] PO; -[UNRECOGNIZED DRUG - CODE] PO; +fentaNYL 100 MCG/2 ML INJECTION (J3010) As Ordered; -fentaNYL 100 MCG/2 ML INJECTION (J3010) As Ordered ONE
[2018-10-17] MEDS: LEVOTHYROXINE 50MCG TABLET (0.05MG) PO (06:00)
[2018-10-17 12:01] LABS: HEMATOCRIT 23.2 % (36.0-47.0); HEMOGLOBIN 8.2 g/dl (12.0-15.5); MEAN CORPUSCULAR HEMOGLOBIN 36.1 pg (27.0-33.0); MEAN CORPUSCULAR HGB CONC 35.3 g/dl (32.0-36.5); MEAN CORPUSCULAR VOLUME 102.2 fl (80.0-96.0); PLATELET COUNT, AUTOMATED 122 10^3/uL (150-450); RED BLOOD COUNT 2.27 10^6/uL (4.00-5.40); RED CELL DISTRIBUTION WIDTH 19.4 % (11.5-14.5); WHITE BLOOD COUNT 6.1 10^3/uL (4.0-10.0)
[2018-10-17 12:20] LABS: ANION GAP 13 MEQ/L (8-16); BLOOD UREA NITROGEN 47 MG/DL (7-18); CALCIUM LEVEL 8.5 MG/DL (8.8-10.2); CARBON DIOXIDE LEVEL 23 MEQ/L (21-32); CHLORIDE LEVEL 98 MEQ/L (98-107); CREATININE FOR GFR 6.42 MG/DL (0.55-1.30); GLOMERULAR FILTRATION RATE 6.8 (>39); GLUCOSE, FASTING 100 MG/DL (70-100); PHOSPHORUS LEVEL 3.3 MG/DL (2.5-4.9); POTASSIUM SERUM 3.9 MEQ/L (3.5-5.1); SODIUM LEVEL 134 MEQ/L (136-145)
[2018-10-17] MEDS ORDERED: HEPARIN 1,000 UNITS/ML 10ML VIAL (FOR RADIOLOGY& DIALYSIS ONLY) IV (13:15)
[2018-10-17 15:25] LABS: IMMEDIATE SPIN CROSSMATCH 1 2
[2018-10-18] MEDS: LEVOTHYROXINE 50MCG TABLET (0.05MG) PO (05:18)
== END 2018-10-18 18:32 | disposition home or self-care (01) | DRG 252 ==
LOC: M MSPAV 20:15
PROC: 05C83ZZ Extirpation of Matter from Left Axillary Vein, Percutaneous Approach (ICD-10-PCS; principal; 2018-10-16 14:00)
PROC: 05CF3ZZ Extirpation of Matter from Left Cephalic Vein, Percutaneous Approach (ICD-10-PCS; 2018-10-16 14:00)
PROC: 05CA3ZZ Extirpation of Matter from Left Brachial Vein, Percutaneous Approach (ICD-10-PCS; 2018-10-16 14:00)
PROC: 05CY3ZZ Extirpation of Matter from Upper Vein, Percutaneous Approach (ICD-10-PCS; 2018-10-16 14:00)
PROC: 3E03317 Introduction of Other Thrombolytic into Peripheral Vein, Percutaneous Approach (ICD-10-PCS; 2018-10-16 14:00)
PROC: 30233N1 Transfusion of Nonautologous Red Blood Cells into Peripheral Vein, Percutaneous Approach (ICD-10-PCS; 2018-10-16 16:01)
DX: T82.868A Thrombosis due to vascular prosthetic devices, implants and grafts, initial encounter (principal); N18.6 End stage renal disease; C90.00 Multiple myeloma not having achieved remission; Y83.1 Surgical operation with implant of artificial internal device as the cause of abnormal reaction of the patient, or of later complication, without mention of misadventure at the time of the procedure; Z90.49 Acquired absence of other specified parts of digestive tract; E03.9 Hypothyroidism, unspecified; D63.1 Anemia in chronic kidney disease; D64.81 Anemia due to antineoplastic chemotherapy; Z99.2 Dependence on renal dialysis; Z85.828 Personal history of other malignant neoplasm of skin; Z79.899 Other long term (current) drug therapy

== ENCOUNTER 2018-10-20 07:48 | Outpatient (RCR) | payer MEDICARE, OTHER ==
[~2018-10-20 07:48] MED LIST changes: +ALBU17IN INH; -ALTEPLASE 2 MG/2 ML VIAL (J2997 PER 1MG) As Ordered; +B COTAB8 PO; +BENA25CA4 PO; +DEXA4TA PO; +DOXY-350 PO; -HEPARIN 1,000 UNITS/ML 10ML VIAL (FOR RADIOLOGY& DIALYSIS ONLY) As Ordered; -HEPARIN SOD (PORCINE) 5000 UNITS/ML VIAL As Ordered; +HYPROMELLOSE OU; -ISOVUE-300 61% 50ML VIAL (Q9967) As Ordered; +KION15SU PO; +LEVO75TA4 PO; +LEVO88TA2 PO; -LIDOCAINE 2% INJ 100 MG/5 ML SDV (FOR ANES.) As Ordered; -LIDOCAINE 2% MDV 20 ML VIAL As Ordered; +LOMOTA PO; -LR 1,000 ML IV; -MIDAZOLAM INJ 2 MG/2 ML VIAL (J2250) As Ordered; +MUCI100L2 PO; +MUCI600T37 PO; +NEPH1CAP4 PO; +NEUR100C OR; +NEUR300C PO; +NORC1TAB4 PO; +OMEG100011 PO; -ONDANSETRON 4MG/2ML VIAL (J2405) IV; -PERCOCET 5MG/325MG TAB PO; -PHENYLEPHRINE HCL INJ 10 MG in D5W 100 ML IV; -PHENYLephrine HCL 500 MCG/5 ML (100MCG/ML) SYRINGE (J2370) As Ordered; +POLYOPD OU; -PROPOFOL 200 MG/20 ML VIAL As Ordered; +RENA1TAB PO; +RENA800T OR; +RENAGEL 800 MG OR; +RENV2TAB PO; +REST0.05 OU; +REVL5CAP2 PO; +SODIUM BICARBONATE OR; +TETR1CAP PO; +TYLE325T5 PO; +VITA200038 PO; +VITACAP31 PO; +[UNRECOGNIZED DRUG - CODE] IV; +[UNRECOGNIZED DRUG - CODE] PO; +[UNRECOGNIZED DRUG - CODE] PO; +[UNRECOGNIZED DRUG - CODE] PO; -fentaNYL 100 MCG/2 ML INJECTION (J3010) As Ordered
[2018-10-28] MEDS ORDERED: KION15SU PO (09:48)
[2018-10-28] MEDS ORDERED: [UNRECOGNIZED DRUG - CODE] PO (09:48)
[2018-11-04] MEDS ORDERED: MIDO2.5T PO (10:21)
[2018-11-04] MEDS ORDERED: ACYC200C8 PO (11:21)
[2018-11-04] MEDS ORDERED: ZOVI5OIN8 TOP (11:21)
== END 2018-11-02 ==
LOC: M PT 07:48
PROVIDERS: ATTEND Otolaryngology
DX: G72.0 Drug-induced myopathy (principal); R13.10 Dysphagia, unspecified
CPT/HCPCS: 92507; 97110; 97112; G8978; G8979; G9171; G9172

== ENCOUNTER 2018-10-22 09:48 | Inpatient (IN) | payer MEDICARE, OTHER ==
[~2018-10-22] VITALS: Ht 162.6 cm; Wt 47.7 kg
[2018-10-22] MEDS ORDERED: HEPARIN 1,000 UNITS/ML 10ML VIAL (FOR RADIOLOGY& DIALYSIS ONLY) As Ordered ONE (11:09)
[2018-10-22] MEDS ORDERED: LIDOCAINE 2% MDV 20 ML VIAL As Ordered ONE (11:09)
[2018-10-22] MEDS ORDERED: ACETAMINOPHEN TAB 650MG DOSE (2X325MG) PO PRN (13:45)
[2018-10-22] MEDS ORDERED: ONDANSETRON 4MG/2ML VIAL (J2405) IV PRN (13:45)
--- NOTE | 2018-10-22 14:06 | HPEPDOC ---
[facility] Medical History & Physical Date of Admission Oct 22, 2018 Attending Physician: KINDRA PALACIO MD History and Physical CHIEF COMPLAINT: Generalized mildly 1 day, missed hemodialysis 1 day. HISTORY OF PRESENT ILLNESS: Patient is 73-year-old woman with medical history significant for Crohn's disease with chronic urostomy multiple myeloma, currently on chemotherapy for multiple myeloma relapse end-stage kidney disease with treatment days, Mondays, Wednesdays and Fridays. Patient was recently evaluated for declot surgery of her access on Friday and was discharged on Friday. However, she is here again after having missed her dialysis scheduled for yesterday on account of failed AV graft. Patient complains of generalized weakness, which is of a days' duration. She is status post permacath placement done today with possibility of the review of her AV graft in about 2 weeks. She denies any nausea, vomiting, no chills, no fevers. She denies any chest pain or palpitations. No cough, no shortness of breath. She denies any change in her bowel or urinary habits. PAST MEDICAL HISTORY: As per [facility] PAST SURGICAL HISTORY: 1. AV fistula placement. 2. AV graft. 3. Permacath placement. SOCIAL HISTORY: Denies smoking, alcohol or use of illicit drugs. FAMILY HISTORY: Denies kidney disease in the family. No significant ischemic heart disease. ALLERGIES: Please see below. REVIEW OF SYSTEMS: 12 point review of systems negative other than that described in the body of HPI. HOME MEDICATIONS: Please see below. PHYSICAL EXAMINATION: VITAL SIGNS: Temperature 97.8, pulse 85, respiratory rate 22, blood pressure 132/78, pulse oximetry 97% on room air. GENERAL APPEARANCE: Elderly WOman, lying calmly in bed, not in any apparent distress. She is not pale, anicteric and afebrile HEENT: Atraumatic. Neck: Supple. LUNGS: Clear to auscultation bilaterally. CARDIOVASCULAR: S1 and 2 heard, no murmurs, rubs or gallops. ABDOMEN: Obese, soft, not tender, not distended. Bowel sounds normoactive, ileostomy bag in situ. MUSCULOSKELETAL: Apparently within normal limits EXTREMITIES: No pedal edema, 2+ bilateral pedal pulses noted. NEUROLOGICAL: Awake, alert, oriented 3. PSYCHIATRIC: Normal affect LABORATORY DATA: See below. IMAGING: MICROBIOLOGY: Please see below. ASSESSMENT: 73-year-old female with above-mentioned comorbid history comes in wi th 2 days' presentation of generalized weakness and with missed hemodialysis on account of failed AV graft. Patient had permacath placed today and will be getting dialysis today. She takes chemotherapy every Friday for multiple myeloma relapse. DIAGNOSES: 1. Generalized weakness 2. Missed hemodialysis . PLAN: 1. We'll admit to medical floors under care off. Dr. Palacio. 2. Renal consult placed to Dr. Mckenzie for dialysis today. 3. PT, OT. 4. Will resume outpatient medication as soon as reconciled. 5. BMP and CBC postdialysis. Follow blood culture. 6. DVT prophylaxis, TEDs. 7. Further management will be per patient's clinical course Home Medications Scheduled (Restasis) 0.05 % Emu, 1 DROP OU BID Cholecalciferol (Vitamin D-3) 2,000 Unit Tab, 2,000 UNIT PO DAILY Dexamethasone (Dexamethasone) 4 Mg Tab, 12 MG PO 1XWK TO TAKE THURSDAY 07/19 Diphenhydramine HCl (Benadryl Allergy) 25 Mg Cap, 25 MG PO ASDIRECTED TAKES PRIOR TO DIALYSIS M,W,F Ixazomib Citrate (Ninlaro) 3 Mg Cap, 3 MG PO Q7D SUNDAYS Lenalidomide (Revlimid) 5 Mg Cap, 5 MG PO DAILY Levothyroxine Sodium (Unithroid Direct) 50 Mcg Tab, 50 MCG PO DAILY Sevelamer Carbonate (Renvela) 800 Mg Tab, 1,600 MG PO WM Allergies Coded Allergies: Vancomycin (Verified Allergy, Severe, RASH/ITCHING, 10/17/13) UTE MENDOZA MD Oct 22, 2018 14:06
[2018-10-22 14:14] LABS: CALCIUM LEVEL 8.4 MG/DL (8.8-10.2); CREATININE FOR GFR 6.33 MG/DL (0.55-1.30); GLOMERULAR FILTRATION RATE 6.9 (>39); POTASSIUM SERUM 4.4 MEQ/L (3.5-5.1)
[2018-10-22 14:18] LABS: BASO % 0.2 % (0.0-1.0); HEMATOCRIT 34.9 % (36.0-47.0); HEMOGLOBIN 11.8 g/dl (12.0-15.5); LYMPH # 0.9 10^3/uL (1.5-4.5); LYMPH % 21.3 % (24.0-44.0); MEAN CORPUSCULAR HEMOGLOBIN 33.4 pg (27.0-33.0); MEAN CORPUSCULAR HGB CONC 33.8 g/dl (32.0-36.5); MEAN CORPUSCULAR VOLUME 98.9 fl (80.0-96.0); MONO # 0.6 10^3/uL (0.0-0.8); MONO % 15.3 % (0.0-5.0); NEUTROPHILS # 2.5 10^3/uL (1.8-7.7); NEUTROPHILS % 61.7 % (36.0-66.0); PLATELET COUNT, AUTOMATED 163 10^3/uL (150-450); RED BLOOD COUNT 3.53 10^6/uL (4.00-5.40)
[2018-10-22] MEDS: NORCO, ANEXSIA 5/325MG TABLET (HYDROcodone/ACETAMINOPHEN) PO PRN ×2 (14:49→21:34)
[2018-10-22 21:00] VITALS: BP 88/44
[2018-10-23 06:00] VITALS: BP 107/64
[2018-10-23] MEDS ORDERED: LEVOTHYROXINE 50MCG TABLET (0.05MG) PO SCH (06:00)
[2018-10-23 07:58] LABS: BASO % 0.2 % (0.0-1.0); EOS # 0.1 10^3/uL (0.0-0.50); EOS % 1.8 % (0.0-3.0); HEMATOCRIT 32.9 % (36.0-47.0); LYMPH # 0.6 10^3/uL (1.5-4.5); LYMPH % 10.5 % (24.0-44.0); MEAN CORPUSCULAR HEMOGLOBIN 34.1 pg (27.0-33.0); MEAN CORPUSCULAR HGB CONC 33.4 g/dl (32.0-36.5); MEAN CORPUSCULAR VOLUME 101.9 fl (80.0-96.0); MONO # 0.7 10^3/uL (0.0-0.8); MONO % 11.7 % (0.0-5.0); NEUTROPHILS # 4.6 10^3/uL (1.8-7.7); NEUTROPHILS % 75.3 % (36.0-66.0); PLATELET COUNT, AUTOMATED 109 10^3/uL (150-450); RED BLOOD COUNT 3.23 10^6/uL (4.00-5.40); WHITE BLOOD COUNT 6.1 10^3/uL (4.0-10.0)
[2018-10-23 08:40] LABS: ALBUMIN 3.2 GM/DL (3.2-5.2); CALCIUM LEVEL 9.1 MG/DL (8.8-10.2); CREATININE FOR GFR 4.79 MG/DL (0.55-1.30); GLOMERULAR FILTRATION RATE 9.5 (>39); MAGNESIUM LEVEL 2.1 MG/DL (1.8-2.4); POTASSIUM SERUM 5.1 MEQ/L (3.5-5.1); TOTAL PROTEIN 6.9 GM/DL (6.4-8.2)
--- NOTE | 2018-10-23 09:04 | IPNPDOC ---
Text Note Date of Service The patient was seen on 10/23/18. NOTE CHIEF COMPLAINT: Presented to [facility] [place] after she missed HD because of a clot in her L arm AVF. Subjective: Patient was examined at bedside. She had dialysis yesterday using her permacath and reports no complaints today. She denies any pain and had no events over night. She was afebrile overnight SOCIAL HISTORY: Denies smoking, alcohol or use of illicit drugs. PHYSICAL EXAMINATION: VITAL SIGNS: See below GENERAL APPEARANCE: Pleasant, no acute distress. HEENT: Neck is supple, No JVD, throat is moist LUNGS:CTAB, no wheezing, no rhonchi CARDIOVASCULAR: S1 and 2 heard, no murmurs, rubs or gallops. ABDOMEN: ileostomy bag in situ, soft, no organomegaly MUSCULOSKELETAL: Apparently within normal limits EXTREMITIES: No pedal edema, 2+ bilateral pedal pulses noted. AV fistula left arm NEUROLOGICAL: Awake and orientated MICROBIOLOGY: Please see below. ASSESSMENT: 73-year-old female admitted for 2 days of weakness, due to missed dialysis, because of a failed AV graft , resulting from a clot. Dr. Thomas placed permacath on day of admission and patient underwent dialysis. Her regular schedule is dialysis Friday, Friday and Friday. She takes chemotherapy every Friday for multiple myeloma relapse. PLAN: 1. End-stage kidney disease with treatment days, Mondays, Wednesdays and Friday: She missed her Friday dialysis due to a failed AV report. Dr. Thomas placed pe rmacath on and patient underwent dialysis. She'll resume her regular dialysis schedule Friday, and undergo dialysis on Friday due to the holidays before resuming her regular schedule of Friday, Friday and Friday. Nephrology has been consulted. PT and OT is also on board. BUN is currently 34, creatinine of 4.79, higher than her baseline 2. Multiple myeloma relapse. Patient receives chemotherapy every Friday. Multiple myeloma. Follows Dr. Jessy Saab as an outpatient. 3. Anemia. Secondary to chronic renal failure, secondary to multiple myeloma. Current hemoglobin hemo-crit are stable at 11 and 32.9 respectively. We'll continue to monitor 4. DVT prophylaxis, TEDs. VS,Fishbone, I+O VS, Fishbone, I+O Laboratory Tests 10/22/18 13:38 Red Blood Count 3.53 L, Mean Corpuscular Volume 98.9 H, Mean Corpuscular Hemoglobin 33.4 H, Mean Corpuscular Hemoglobin Concent 33.8, Red Cell Distribution Width 18.7 H, Neutrophils (%) (Auto) 61.7, Lymphocytes (%) (Auto) 21.3 L, Monocytes (%) (Auto) 15.3 H, Eosinophils (%) (Auto) 1.0, Basophils (%) (Auto) 0.2, Neutrophils # (Auto) 2.5, Lymphocytes # (Auto) 0.9 L, Monocytes # (Auto) 0.6, Eosinophils # (Auto) 0.0, Basophils # (Auto) 0.0, Calcium Level 8.4 L 10/23/18 07:33 Red Blood Count 3.23 L, Mean Corpuscular Volume 101.9 H, Mean Corpuscular Hemoglobin 34.1 H, Mean Corpuscular Hemoglobin Concent 33.4, Red Cell Distribution Width 19.4 H, Neutrophils (%) (Auto) 75.3 H, Lymphocytes (%) (Auto) 10.5 L, Monocytes (%) (Auto) 11.7 H, Eosinophils (%) (Auto) 1.8, Basophils (%) (Auto) 0.2, Neutrophils # (Auto) 4.6, Lymphocytes # (Auto) 0.6 L, Monocytes # (Auto) 0.7, Eosinophils # (Auto) 0.1, Basophils # (Auto) 0.0, Calcium Level 9.1, Aspartate Amino Transf (AST/SGOT) 18, Alanine Aminotransferase (ALT/SGPT) 14, Alkaline Phosphatase 78, Total Bilirubin 1.0, Total Protein 6.9, Albumin 3.2 Vital Signs Date Time Temp Pulse Resp B/P (MAP) Pulse Ox O2 Delivery O2 Flow Rate FiO2 10/23/18 06:00 98.0 76 18 107/64 (78) 95 I&O- Last 24 Hours up to 6 AM 10/23/18 05:59 Intake Total 360 ml Output Total 800 ml Balance -440 ml GME ATTESTATION GME ATTESTATION My faculty preceptor for this patient encounter was physically present during the encounter and was fully available. All aspects of the patient interview, examination, medical decision making process, and medical care plan development were reviewed and approved by the faculty preceptor. The faculty preceptor is aware and concurs with the plan as stated in the body of this note and will attest to such by his/her cosignature. LUANNE VALENZUELA DO Oct 23, 2018 09:04 KINDRA PALACIO MD Oct 23, 2018 11:50
[2018-10-23] MEDS ORDERED: NS 1,000 ML IV SCH (11:15)
--- NOTE | 2018-10-23 13:51 | DS.PDOC ---
Discharge Summary General Date of Admission Oct 22, 2018 at 13:52 Date of Discharge 10/23/2018 Primary Care Physician: Karina Kay MD Attending Physician: CARY DILLON MD Specialist/Consultants Involve: KB MCKENZIE DO Discharge Summary PROCEDURES PERFORMED DURING STAY: Dialysis Chief complaint: Missed HD on Friday after having dysfunction of her left arm AVF ADMITTING / DISCHARGE DIAGNOSES: Dysfunctional AV fistula Missed HD End-stage kidney disease Crohn's disease with ileostomy bag Anemia. Multiple myeloma COMPLICATIONS/CHIEF COMPLAINT: Weakness and tightness HISTORY OF PRESENT ILLNESS/ HOSPITAL COURSE: Patient is a 73-year-old female who was admitted after she missed dialysis because of dysfunction of her left arm AV fistula. It was found to be clotted. Dr. Thomas placed a PermCath on day of admission and patient underwent dialysis on same day. Patient's usual dialysis schedule is Friday, Friday and Friday. She missed Friday appointment due to the clot in her AV fistula, she subsequently received dialysis on . Following dialysis, patient reported that she feels fine. She had no acute comp laints. She was discharged in stable condition with instructions to have dialysis on Friday and return to her regular schedule for HD on Friday. She's been advised to follow-up with Dr. Thomas and Dr. Mckenzie (Nephrology). DISCHARGE MEDICATIONS: Please see below. ALLERGIES: Please see below. PHYSICAL EXAMINATION ON DISCHARGE: VITAL SIGNS: Please see below. VITAL SIGNS: See below GENERAL APPEARANCE: Pleasant, no acute distress. HEENT: Neck is supple, No JVD, throat is moist LUNGS:CTAB, no wheezing, no rhonchi CARDIOVASCULAR: S1 and 2 heard, no murmurs, rubs or gallops. ABDOMEN: ileostomy bag in situ, soft, no organomegaly MUSCULOSKELETAL: Apparently within normal limits EXTREMITIES: No pedal edema, 2+ bilateral pedal pulses noted. AV fistula left arm NEUROLOGICAL: Awake and orientated LABORATORY DATA: Please see below. IMAGING: PROGNOSIS: Stable ACTIVITY: As tolerated. DIET: Renal Diet DISCHARGE PLAN: Home DISPOSITION: , Self-Care. DISCHARGE INSTRUCTIONS: Follow-up Dr. Thomas and Dr. Mckenzie within 7 days Remain compliant with treatment plan and medications Return to the ER if you experience any problems. ITEMS TO FOLLOWUP ON ON OUTPATIENT: 1. Clot in her left arm AV fistula 2. Dialysis at regular schedule. DISCHARGE CONDITION: Stable. TIME SPENT ON DISCHARGE: Greater than 25 minutes. Vital Signs/I&Os Vital Signs Date Time Temp Pulse Resp B/P (MAP) Pulse Ox O2 Delivery O2 Flow Rate FiO2 10/23/18 06:00 98.0 76 18 107/64 (78) 95 I&O- Last 24 Hours up to 6 AM 10/23/18 06:00 Intake Total 510 ml Output Total 800 ml Balance -290 ml Laboratory Data Labs 24H Laboratory Tests 2 10/23/18 07:33: Immature Granulocyte % (Auto) 0.5, White Blood Count 6.1, Red Blood Count 3.23L, Hemoglobin 11.0L, Hematocrit 32.9L, Mean Corpuscular Volume 101.9H, Mean Corpuscular Hemoglobin 34.1H, Mean Corpuscular Hemoglobin Concent 33.4, Red Cell Distribution Width 19.4H, Platelet Count 109L, Neutrophils (%) (Auto) 75.3H, Lymphocytes (%) (Auto) 10.5L, Monocytes (%) (Auto) 11.7H, Eosinophils (%) (Auto) 1.8, Basophils (%) (Auto) 0.2, Neutrophils # (Auto) 4.6, Lymphocytes # (Auto) 0.6L, Monocytes # (Auto) 0.7, Eosinophils # (Auto) 0.1, Basophils # (Auto) 0.0, Nucleated Red Blood Cells % (auto) 0.0, Anion Gap 9, Glomerular Filtration Rate 9.5L, Blood Urea Nitrogen 34H, Creatinine 4.79H, Sodium Level 134L, Potassium Level 5.1, Chloride Level 99, Carbon Dioxide Level 26, Calcium Level 9.1, Aspartate Amino Transf (AST/SGOT) 18, Alanine Aminotransferase (ALT/SGPT) 14, Alkaline Phosphatase 78, Total Bilirubin 1.0, Total Protein 6.9, Albumin 3.2, Magnesium Level 2.1, Albumin/Globulin Ratio 0.86L CBC/BMP Laboratory Tests 10/23/18 07:33 Red Blood Count 3.23 L, Mean Corpuscular Volume 101.9 H, Mean Corpuscular Hemoglobin 34.1 H, Mean Corpuscular Hemoglobin Concent 33.4, Red Cell Distribution Width 19.4 H, Neutrophils (%) (Auto) 75.3 H, Lymphocytes (%) (Auto) 10.5 L, Monocytes (%) (Auto) 11.7 H, Eosinophils (%) (Auto) 1.8, Basophils (%) (Auto) 0.2, Neutrophils # (Auto) 4.6, Lymphocytes # (Auto) 0.6 L, Monocytes # (Auto) 0.7, Eosinophils # (Auto) 0.1, Basophils # (Auto) 0.0, Calcium Level 9.1, Aspartate Amino Transf (AST/SGOT) 18, Alanine Aminotransferase (ALT/SGPT) 14, Alkaline Phosphatase 78, Total Bilirubin 1.0, Total Protein 6.9, Albumin 3.2 Microbiology Microbiology 10/22/18 Blood Culture, Received Pending Discharge Medications Scheduled (Restasis) 0.05 % Emu, 1 DROP OU BID, (Reported) Cholecalciferol (Vitamin D-3) 2,000 Unit Tab, 2,000 UNIT PO DAILY, (Reported) Dexamethasone (Dexamethasone) 4 Mg Tab, 12 MG PO 1XWK, (Reported) TO TAKE THURSDAY 07/19 Diphenhydramine HCl (Benadryl Allergy) 25 Mg Cap, 25 MG PO ASDIRECTED, (Reported) TAKES PRIOR TO DIALYSIS M,W,F Ixazomib Citrate (Ninlaro) 3 Mg Cap, 3 MG PO Q7D, (Reported) SUNDAYS Lenalidomide (Revlimid) 5 Mg Cap, 5 MG PO DAILY, (Reported) Levothyroxine Sodium (Unithroid Direct) 50 Mcg Tab, 50 MCG PO DAILY, (Reported) Sevelamer Carbonate (Renvela) 800 Mg Tab, 1,600 MG PO WM, (Reported) Allergies Coded Allergies: Vancomycin (Verified Allergy, Severe, RASH/ITCHING, 10/17/13) GME ATTESTATION GME ATTESTATION My faculty preceptor for this patient encounter was physically present during the encounter and was fully available. All aspects of the patient interview, examination, medical decision making process, and medical care plan development were reviewed and approved by the faculty preceptor. The faculty preceptor is aware and concurs with the plan as stated in the body of this note and will attest to such by his/her cosignature. ATTENDING NOTE I, Cary Dillon, have both independently examined this patient as well as reviewed the documentation. I have discussed in detail with the resident the findings and plan of treatment as documented in the residents documentation. I will continue to follow the patient and offer further guidance to the patients care as necessary during this hospital stay. LAUNNE VALENZUELA DO Oct 23, 2018 13:51 CARY DILLON MD Oct 23, 2018 14:01
--- NOTE | 2018-10-23 14:01 | CR ---
DATE OF CONSULTATION: 10/22/2018 REQUESTING PHYSICIAN: Dr. Amaro REASON FOR CONSULTATION: Management of end stage renal disease on hemodialysis in this patient with a missed dialysis treatment. HISTORY OF PRESENT ILLNESS: Yoana is a 73-year-old female well known to me with a past medical history of end stage renal disease on hemodialysis every Friday, Friday and Friday via a left upper extremity AV graft, history of recurrent clotting of the AV graft, status post recent declot procedures by vascular surgery. Also history of multiple myeloma in the past with relapse of myeloma and currently undergoing chemotherapy and also has a history of Crohn's disease status post colectomy and ileostomy and other comorbid conditions mentioned below. The patient was last dialyzed on Friday. She could not have her dialysis treatment yesterday because of clotting of the AV graft. Subsequently she had a PermaCath placed this morning in interventional radiology and she is pending surgical revision of the graft by vascular surgery next week. The patient is seen in [facility] area and is significantly fatigued. Reports she missed dialysis treatment times one and nephrology evaluation is subsequently requested. She also has a history of recurrent anemia recently due to her chronic renal failure, her chemotherapy and her myeloma and she has been requiring frequent packed red blood cell transfusions. Most recently just had two units transfused within the past week. PAST MEDICAL HISTORY: 1. End stage renal disease on hemodialysis. 2. History of multiple myeloma in the past, presently with relapse and currently on chemotherapy. 3. Hypothyroidism. 4. Anemia of end stage renal disease, recently worsened likely due to myeloma and chemotherapy. 5. History of Crohn's disease. 6. Status post colectomy and ileostomy. PAST SURGICAL HISTORY: 1. Status post stem cell transplant in 2006 for multiple myeloma. 2. History of appendectomy in the past. 3. History of skin cancer removal. 4. Status post colectomy and ileostomy. 5. Status post left upper extremity AV graft. 6. Status post PermaCath. ALLERGIES: - VANCOMYCIN FAMILY HISTORY: No significant family history of end stage renal disease requiring dialysis. SOCIAL HISTORY: She lives at home. No smoking or illicit drug use or alcohol abuse. REVIEW OF SYSTEMS: Constitutional: She reports feeling fatigued and weak, but no fevers or chills. Eyes: Denies blurry vision or double vision. ENT: Denies dysphagia or odynophagia. Cardiovascular: Denies chest pain, palpitations. Has some soreness where the PermaCath was recently placed. Respiratory: Denies cough and denies shortness of breath. GI: Denies abdominal pain. She has an ileostomy. : She makes very small amount of urine. Denies any dysuria. Musculoskeletal: Denies any new myalgias or arthralgias. Hematologic: Reports relapse of multiple myeloma and undergoing chemotherapy and reports recurrent anemia requiring blood transfusions. Central Nervous System: Denies stroke or seizures. Psychiatric: Denies depression or anxiety. All other review of systems is negative. PHYSICAL EXAMINATION: Temperature 98.3, pulse 70, blood pressure 130/75, saturating 95% on room air, respiratory rate 18. Intake and Output: Not fully recorded. General: Patient seen in IR holding area. Appears fatigued, but in no acute distress. Easily arousable. Awake, alert, oriented times four, interactive. Extraocular muscles are intact. Tongue is dry. Neck shows recently placed right sided PermaCath. Cardiac: S1, S2. Regular rate and rhythm. Lungs show clear to auscultation bilaterally. No crackles or rales. Abdomen: Soft. Nontender. There is an ileostomy present. Extremities: Negative for clubbing, cyanosis or edema. The left upper extremity AV graft is nonfunctional. Neurologic: She is oriented, a baseline mentation. LABS: White count 4.0, hemoglobin 11.8, platelets 163. Sodium 137, potassium 4.4. INPATIENT MEDICATIONS: - Tylenol as needed - Synthroid 50 mcg by mouth daily - Zofran as needed PROBLEMS: 1. End stage renal disease on hemodialysis on Friday, Friday, Friday maintenance schedule with recent recurrent clotting of her AV graft. Status post multiple recent declot procedures with vascular surgery. She missed her Friday dialysis treatment. She now had a PermaCath placed this morning and she will need a surgical revision of her AV graft next week with vascular surgery. She will be dialyzed this afternoon. Her electrolytes are acceptable and she is usually dialyzed for clearance only. No change is being made to the chronic prescription. 2. Recurrent anemia. Patient has recently been requiring frequent packed red blood cell transfusions. Her anemia is felt to be multifactorial and secondary to chronic renal failure, relapse of myeloma and chemotherapy. CBC today shows acceptable hemoglobin and she was just recently transfused within the past week. 3. Relapse of myeloma. Patient follows with hematology as an outpatient and continues on oral chemotherapy. Given her nonspecific complaint of fatigue in an immunocompromised patient I see the primary team has sent blood cultures which are pending. There is otherwise no significant leukocytosis or fever spikes. Thank you for involving me in the care of Ms Fan. I will be happy to follow her along with you.
--- NOTE | 2018-10-24 11:57 | IPN ---
DATE: 10/23/2018 SUBJECTIVE: The patient seen and examined this morning at the bedside. She reports she feels much better, has been up and ambulating without any issues. Denies shortness of breath or dyspnea on exertion. Reports she had a good breakfast. No lightheadedness or dizziness. She is anxious to go home. She was dialyzed yesterday via the newly placed PermaCath without any issues reported. Temperature 98.0, pulse 76, respiratory rate 18, blood pressure 107/64, saturating 95% on room air. Intake yesterday was 640. Urine output was 560. Stool output was 650. Weight on the bed scale today is not recorded. GENERAL: The patient is seen lying in bed, awake, alert, smiling. in no distress. Extraocular muscles are intact. Tongue is moist. Neck is supple. Right IJ PermaCath with dressing. CARDIAC: S1, S2. Regular rate and rhythm. No rubs or murmurs. LUNGS: Clear to auscultation bilaterally. ABDOMEN: Soft and nontender. There is an ileostomy bag in place. MUSCULOSKELETAL: Moves all four extremities without any issues. EXTREMITIES: Negative for clubbing, cyanosis or edema. The left upper extremity graft is nonfunctional. NEUROLOGICAL: She is awake, alert, oriented times three. PSYCHIATRIC: Appropriate mood and affect. LABS Sodium 134, potassium 5.1, bicarbonate 26. Hemoglobin 11.0. INPATIENT MEDICATIONS Reviewed and no change from prior. PROBLEMS 1. End-stage renal disease, on hemodialysis on a Friday, Friday, Friday schedule. Patient missed dialysis on Friday due to clotting of the AV graft, which has been a recurrent issue. She is now being dialyzed by a newly placed PermaCath. She had a treatment yesterday. She will see Dr. Thomas next week for surgical revision of the AV graft. Her next dialysis will be Friday morning, 6:40 a.m. Thereafter, she will be dialyzed on Friday 6:40 a.m., and then she will be back on her usual Friday, Friday, Friday schedule. This is discussed with the patient and with the dialysis unit. Electrolytes and volume status are acceptable and PermaCath is in use. 2. Anemia. Recently recurrent symptomatic anemia requiring packed red blood cell transfusion. Hemoglobin is presently at goal and she was most recently transfused just within the past week. She will continue with erythropoietin stimulating agent with dialysis and continues on weekly hemoglobin and hematocrit monitoring. 3. Multiple myeloma with relapse. Patient follows closely with hematology, oncology as an outpatient and continues on her oral chemotherapy regimen which she takes on Sundays. 4. DISPOSITION: Patient is acceptable for discharge from nephrology point of view. Next dialysis treatment will be Friday morning 6:40 a.m. and then Friday morning 6:40 a.m. and thereafter she will be on her usual chronic schedule. Has been discussed with the patient.
[2018-11-04] MEDS ORDERED: MIDO2.5T PO (10:21)
[2018-11-04] MEDS ORDERED: ZOVI5OIN8 TOP (11:21)
[2018-11-04] MEDS ORDERED: ACYC200C8 PO (11:21)
--- NOTE | 2018-11-25 07:27 | REPIR ---
DATE OF PROCEDURE: 10/22/2018 PREOPERATIVE DIAGNOSIS: End-stage renal disease, thrombosed left brachial artery to axillary vein arteriovenous graft. POSTOPERATIVE DIAGNOSIS: End-stage renal disease, thrombosed left brachial artery to axillary vein arteriovenous graft. PROCEDURE PERFORMED: Ultrasound-guided right internal jugular vein cannulation. Fluoroscopic guided right internal jugular vein 19 cm tip-to-cuff tunneled central venous catheter with use of an [employer] [place] catheter. SURGEON: Dr. Breonna Thomas. VETERINARY MANAGER: Anuradha Nicole. ANESTHESIA: Local with 20 mL of 2% lidocaine. FLUORO TIME: 0.1 minutes. CONTRAST: None. COMPLICATIONS: None. DRAINS: None. SPECIMENS: None. IMPLANTS: Right internal jugular vein 19 cm tip-to-cuff tunneled central venous catheter placement. INDICATION: The patient is a 73-year-old female with end-stage renal disease who dialyzes through a left brachial artery to axillary vein arteriovenous graft, which has had recurrent thrombosis and will now require surgical revision due to multiple attempts to maintain patency with continued thrombosis of the graft. The patient will require a tunneled central venous catheter for hemodialysis access. Risks, benefits and alternative options were discussed with the patient. The procedure was described and explained to the patient in detail including drawing of pictures demonstrated procedure and the pertinent anatomy. Alternative options included but were not limited to no intervention. Risks included but were not limited to infection, bleeding, pneumothorax, hemothorax, possibly need for open surgical intervention, cerebrovascular accident, myocardial infarction, pulmonary embolus, deep venous thrombosis (DVT), loss of limb, loss of life, poor outcome and/or results. Benefits included but were not limited to access for continued renal replacement therapy via hemodialysis. The patient's questions were answered. The patient voices understanding and agreement with the risks, benefits and alternative options and consents to proceed with a tunneled central venous catheter placement for hemodialysis access. DESCRIPTION OF PROCEDURE: The patient was taken to the angiography suite, placed supine on the angiography room table and then prepped and draped in a standard surgical fashion. The ultrasound was used evaluate right internal jugular vein which was noted to be easily compressible, widely patent and free of thrombus. Ultrasound was used to guide cannulation of the right internal jugular vein with real-time concurrent visualization of the entry of the needle into the right internal jugular vein with a hard copy image preserved. The micropuncture wire was advanced through the micropuncture needle, which was upsized to a micropuncture sheath. A Bentson wire was advanced to the micropuncture sheath which was used to sequentially dilate the right internal jugular vein under fluoroscopic guidance and an introducer sheath was positioned. The catheter had been tunneled from a puncture wound in the right chest to the puncture wound at the right internal jugular vein entry site prior to dilating the right internal jugular vein after anesthetizing overlying skin with 2% lidocaine. Catheter was advanced through the introducer sheath which was peeled away and removed after the tip of the catheter was placed in the superior cava right atrial junction under fluoroscopic guidance. Both ports of the catheter were aspirated and noted to aspirate easily and then flushed with heparinized saline. The catheter was secured to the anterior chest wall using #2-0 Prolene suture. The puncture wound in the right neck was closed using #3-0 Monocryl inverted interrupted fashion. Steri-Strips and dressings were applied. The patient tolerated the procedure well. All instrument, sponge, needle counts were correct at the end the case. There were no complications. Dr. Thmoas was present for and directed the entire case. The patient was transferred to the holding area and then discharged in stable condition. The right internal jugular vein tunneled central venous catheter is stable for use for hemodialysis access. RADIOLOGY SUPERVISION INTERPRETATION: The ultrasound showed the right internal jugular vein to be widely patent, easily compressible and free of thrombus. Ultrasound was used to guide cannulation with real-time concurrent visualization of the entry needle into the right internal jugular vein with a hard copy image preserved. The right internal jugular vein was dilated under fluoroscopic guidance. The catheter placed under fluoroscopic guidance with the final fluoroscopic image showing the catheter to be in good position and good alignment of the tip in the superior vena cava right atrial junction with no pneumothorax or hemothorax noted. The catheter is stable for use for hemodialysis access.
== END 2018-10-23 12:37 | disposition home or self-care (01) | DRG 314 ==
LOC: M IRPRO 09:48 → M MSPAV 13:52
PROVIDERS: ADMIT Surgery Vascular Surgery; ATTEND Surgery Vascular Surgery
PROC: 02HV33Z Insertion of Infusion Device into Superior Vena Cava, Percutaneous Approach (ICD-10-PCS; principal; 2018-10-22)
PROC: 0JH63XZ Insertion of Tunneled Vascular Access Device into Chest Subcutaneous Tissue and Fascia, Percutaneous Approach (ICD-10-PCS; 2018-10-22)
PROC: 5A1D70Z Performance of Urinary Filtration, Intermittent, Less than 6 Hours Per Day (ICD-10-PCS; 2018-10-22)
DX: T82.838A Hemorrhage due to vascular prosthetic devices, implants and grafts, initial encounter (principal); N18.6 End stage renal disease; C90.02 Multiple myeloma in relapse; T82.898A Other specified complication of vascular prosthetic devices, implants and grafts, initial encounter; R53.1 Weakness; Z99.2 Dependence on renal dialysis; Z88.1 Allergy status to other antibiotic agents; Z79.899 Other long term (current) drug therapy; Z93.2 Ileostomy status; D63.1 Anemia in chronic kidney disease; D64.81 Anemia due to antineoplastic chemotherapy; Z90.49 Acquired absence of other specified parts of digestive tract; Z85.828 Personal history of other malignant neoplasm of skin; Y83.1 Surgical operation with implant of artificial internal device as the cause of abnormal reaction of the patient, or of later complication, without mention of misadventure at the time of the procedure

== ENCOUNTER 2018-10-28 06:19 | Observation (INO) | payer MEDICARE, OTHER ==
[2018-10-28 07:01] LABS: BASO % 0.2 % (0.0-1.0); EOS # 0.1 10^3/uL (0.0-0.50); EOS % 1.4 % (0.0-3.0); HEMATOCRIT 36.4 % (36.0-47.0); HEMOGLOBIN 12.2 g/dl (12.0-15.5); LYMPH # 0.9 10^3/uL (1.5-4.5); MEAN CORPUSCULAR HGB CONC 33.5 g/dl (32.0-36.5); MEAN CORPUSCULAR VOLUME 101.4 fl (80.0-96.0); MONO # 0.8 10^3/uL (0.0-0.8); MONO % 18.8 % (0.0-5.0); NEUTROPHILS # 2.6 10^3/uL (1.8-7.7); NEUTROPHILS % 58.9 % (36.0-66.0); PLATELET COUNT, AUTOMATED 158 10^3/uL (150-450); RED BLOOD COUNT 3.59 10^6/uL (4.00-5.40); WHITE BLOOD COUNT 4.4 10^3/uL (4.0-10.0)
[2018-10-28 07:02] LABS: VENOUS BASE EXCESS -2.5 (-2.0-2.0); VENOUS HCO3 22.3 MEQ/L (23.0-27.0); VENOUS O2 SATURATION 67.8 % (60.0-80.0); VENOUS PARTIAL PRESSURE CO2 38.5 mmHg (38.0-50.0); VENOUS PARTIAL PRESSURE O2 38.4 mmHg (30.0-50.0); VENOUS STANDARD HCO3 21.7 MEQ/L; VENOUS TOTAL CO2 23.4 MEQ/L (24.0-28.0)
[2018-10-28 07:10] LABS: BLOOD UREA NITROGEN 58 MG/DL (7-18); CALCIUM LEVEL 9.3 MG/DL (8.8-10.2); CARBON DIOXIDE LEVEL 23 MEQ/L (21-32); CHLORIDE LEVEL 97 MEQ/L (98-107); CREATININE FOR GFR 6.01 MG/DL (0.55-1.30); GLOMERULAR FILTRATION RATE 7.3 (>39); GLUCOSE, FASTING 104 MG/DL (70-100); POTASSIUM SERUM 4.2 MEQ/L (3.5-5.1); SODIUM LEVEL 135 MEQ/L (136-145)
[2018-10-28 07:15] LABS: INR 0.86; PROTHROMBIN TIME 11.8 SECONDS (12.1-14.4)
[2018-10-28 07:16] LABS: PARTIAL THROMBOPLASTIN TIME 27.4 SECONDS (25.4-37.6)
--- NOTE | 2018-10-28 07:38 | REP ---
Clinical: Dyspnea. Comparison: 07/15/2018. Findings: Mediastinum and cardiac silhouette are stable. Double-lumen dialysis catheter with tip in the SVC. Lung george demonstrate chronic interstitial changes and emphysematous disease. No focal consolidation, effusion, or pneumothorax. Right axillary node dissection. Impression: No acute cardiopulmonary process or focal consolidation. Electronically Signed by Celestino López MD 10/28/2018 07:29 A
[2018-10-28 08:06] LABS: ABG BASE EXCESS 1.5 (-2.0-2.0); ABG HCO3 24.7 MEQ/L (22.0-26.0); ABG PARTIAL PRESSURE CO2 34.4 mmHg (35.0-45.0); ABG STANDARD HCO3 25.7 MEQ/L (22.0-26.0); ABG TOTAL CO2 25.8 MEQ/L (23.0-31.0); ABG pH (ARTERIAL) 7.474 UNITS (7.350-7.450)
[2018-10-28 08:34] VITALS: O2SAT 84
[2018-10-28] MEDS ORDERED: ISOVUE-370 76% 100ML VIAL (Q9967) As Ordered ONE (08:38)
--- NOTE | 2018-10-28 09:05 | REP ---
Clinical: Hypoxia and tachypnea. Technique: Axial contrast enhanced images from the thoracic inlet to the upper abdomen using 100 ml Isovue 370 intravenous contrast material with coronal and sagittal re-formations. Findings: There is a minuscule right apical pneumothorax. Satisfactory enhancement of the pulmonary vasculature is achieved and no filling defects are identified to suggest pulmonary embolus. The lung george are clear and without acute consolidation, or effusion. Chronic age-related interstitial changes and mild bronchiectasis noted. Atherosclerotic changes to the thoracic aorta and coronary arteries noted without aortic aneurysm. No cardiomegaly or pericardial effusion. Double-lumen dialysis catheter extends into the SVC. Impression: Minuscule right apical pneumothorax. No evidence for pulmonary embolus. No acute pleuroparenchymal or mediastinal process. Electronically Signed by Celestino López MD 10/28/2018 08:56 A
[2018-10-28 09:07] LABS: CK-MB VALUE MASS < 1.0 NG/ML (<3.6); CPK CREATINE PHOSPHOKINASE 40 U/L (26-192); TROPONIN I < 0.02 NG/ML (< 0.10)
[2018-10-28] MEDS ORDERED: KION15SU PO (09:48)
[2018-10-28] MEDS ORDERED: [UNRECOGNIZED DRUG - CODE] PO (09:48)
[2018-10-28] MEDS ORDERED: diphenhydrAMINE 25 MG CAP PO PRN (12:15)
[2018-10-28] MEDS ORDERED: HEPARIN 1,000 UNITS/ML 10ML VIAL (FOR RADIOLOGY& DIALYSIS ONLY) XX ONE (13:45)
[2018-10-28] MEDS ORDERED: HEPARIN 1,000 UNITS/ML 10ML VIAL (FOR RADIOLOGY& DIALYSIS ONLY) IV ONE (13:45)
--- NOTE | 2018-10-28 14:26 | HPE ---
DATE OF ADMISSION: 10/28/2018 PRIMARY CARE PROVIDER: Isma Herrera MD HANDBAG DESIGNER: [facility]/Dr. Nelson. CHIEF COMPLAINT: Shortness of breath. HISTORY: Yoana Escobedo is a 73-year-old with end-stage renal disease on maintenance dialysis who had a PermCath placed recently. She has thrombosis of her AV graft, subsequently had a PermCath placed in interventional radiology, I believe on 10/22/2018. She says she has been short of breath since then. She is fine at rest but gets dyspnea with exertion. She came to the emergency room. Chest x-ray and CT scan showed minuscule pneumothorax on the right side. The hospitalists were called to admit. PAST MEDICAL HISTORY: Shows end-stage renal disease, history of multiple myeloma, on maintenance chemotherapy, hypothyroidism, end-stage renal disease leading to anemia, history of Crohn disease, history of colectomy and ileostomy. ALLERGIES: VANCOMYCIN. FAMILY HISTORY: Noncontributory. SOCIAL HISTORY: No smoking. MEDICATIONS: See list. REVIEW OF SYSTEMS: No fever or chills. No cough, hemoptysis, sputum production. No lower extremity edema. PHYSICAL EXAMINATION: Vital signs per flow sheet. She was seen while receiving her dialysis. Alert and conversant. No distress. Respirations were easy. HEENT: Unremarkable. No jugular venous distention (JVD). Lungs: Clear breath sounds to the apices. Heart: Regular rate and rhythm. Abdomen: Soft, nontender. Right upper chest PermCath. No peripheral edema. LABORATORIES: Were reviewed. Nothing remarkable. IMPRESSION: Dyspnea. It is unlikely this is a pneumothorax. It is very tiny. CT angiogram showed no pulmonary embolism. Her lactic acid level was elevated, as would be expected, in someone with end-stage renal disease who is waiting for dialysis. So, I am not sure what we gain from that. Arterial blood gas (ABG) looked unremarkable. She will be admitted to observation bed. She is receiving dialysis at this time. Dr. Thomas has agreed to see her, and I have ordered a repeat chest x-ray for tomorrow morning.
--- NOTE | 2018-10-28 14:57 | ECGEPIP ---
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
[2018-10-28 15:00] VITALS: BP 130/67
[2018-10-28] MEDS ORDERED: SLF 3 ML SYR IV PRN (15:00)
[2018-10-28] MEDS: (RENVELA) SEVELAMER **CARBONate** 800 MG TAB PO SCH (17:47)
--- NOTE | 2018-10-28 17:47 | CR ---
DATE OF CONSULTATION: 10/28/2018 REQUESTING PHYSICIAN: Dr. Guillermo in the emergency room. CONSULTING PHYSICIAN: Dr. Nelson. REASON FOR CONSULTATION: Management of end-stage renal disease on hemodialysis. CHIEF COMPLAINT: Patient presented to the hospital with progressive shortness of breath. HISTORY OF PRESENT ILLNESS: Yoana Escobedo is a 73-year-old female with a past medical history of end-stage renal disease on hemodialysis every Friday, Friday, Friday, history of multiple myeloma currently on chemotherapy. She recently clotted an atrioventricular (AV) fistula and got a PermCath placed about a week ago, and ever since she got the PermCath placed, she reports that she was short of breath. She presented to the outpatient dialysis center today morning with severe shortness of breath. Her pulse oximetry on room air was less than 85%. Apparently, there was no evidence of fluid overload, so dialysis staff sent her to the emergency room. When patient arrived in the emergency room, on walking without oxygen, she was desaturating in the low 80s. She got the CAT scan of the chest done with intravenous (IV) contrast to rule out pulmonary embolism; however, she was found to have a right-sided small pneumothorax. The patient is being admitted under the hospitalist service. Nephrology service was called for further help in the management of this patient with end-stage renal disease and arrangement of hemodialysis. I saw the patient today morning at the bedside in the emergency room. She was in mild respiratory distress, wearing nasal cannula. She denies any fevers or chills. She denies any cough or phlegm. PAST MEDICAL HISTORY: 1. End-stage renal disease on hemodialysis every Friday, Friday, Friday. 2. History of multiple myeloma, currently on chemotherapy, not having achieved remission. 3. Hypothyroidism. 4. 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 5. History of Crohn's disease status post colectomy. PAST SURGICAL HISTORY: 1. Status post colectomy and ileostomy in the past. 2. Status post atrioventricular (AV) fistula placement. 3. Status post right internal jugular (IJ) tunnel hemodialysis catheter placement. ALLERGIES: Patient is allergic to VANCOMYCIN. FAMILY HISTORY: No significant family history of end-stage renal disease requiring hemodialysis. SOCIAL HISTORY: Patient denies any illicit drug abuse, alcohol or smoking. REVIEW OF SYSTEMS: CONSTITUTIONAL: Patient reports weakness and fatigue. EYES: She denies any blurry vision, double vision. ENT: She denies any dysphagia, odynophagia, ear discharge. CARDIOVASCULAR: She denies any palpitations. She does report chest pressure. RESPIRATORY: She reports shortness of breath on mild exertion. GASTROINTESTINAL (GI): She denies any nausea or vomiting. She has right lower quadrant ileostomy. GENITOURINARY: She denies any dysuria, hematuria. MUSCULOSKELETAL: She denies any muscle aches or pains. SKIN: She denies any rashes or ulcers. HEMATOLOGICAL/ONCOLOGIC: She denies any easy bleeding or bruising. ENDOCRINE: She reports history of secondary hyperparathyroidism. All other review of systems are negative. PHYSICAL EXAMINATION: GENERAL: Patient is awake, alert, oriented times three, laying in bed, moderate respiratory distress. VITAL SIGNS: Temperature 98 degrees Fahrenheit, blood pressure 113/67, pulse 84, respiratory rate 20, saturating 99% on room air. HEAD AND NECK EXAMINATION: Extraocular muscles intact. Pupils equally round and reactive to light. Mucous membranes are moist. Positive conjunctival pallor. There is no jugular venous distention (JVD). CARDIOVASCULAR: Regular S1, S2. Tachycardia. No edema of the bilateral lower extremities. RESPIRATORY: Mildly decreased breath sounds at the bases. Otherwise no active rales or rhonchi. ABDOMEN: Soft. Positive bowel sounds. Nontender. Right lower quadrant ileostomy was noted. GENITOURINARY: Bladder was nonpalpable. No hernia noted. MUSCULOSKELETAL: No clubbing or cyanosis. Pulses are 2+. AV ACCESS: Patient has a right internal jugular (IJ) tunneled hemodialysis catheter. CENTRAL NERVOUS SYSTEM: No focal deficit. Power is 5/5 in all extremities. SKIN: No rashes or ulcers. LABORATORY REVIEW: Complete blood count (CBC) showed a WBC 4.4, hemoglobin 12.2, platelets 158. INR 0.86. Arterial blood gas (ABG) showed a pH of 7.47, pCO2 of 34, pO2 of 79, oxygen saturation 96%. Basic metabolic panel (BMP) showed sodium 135, potassium 4.2, chloride 97, bicarbonate 23, BUN 58, creatinine 6, lactic acid 3.7. Troponin less than 0.02. MICROBIOLOGY: Blood cultures are pending. IMAGING: A CT angiogram of the chest was done for shortness of breath, which showed a miniscule right apical pneumothorax. No evidence of pulmonary embolism. No acute pleural, parenchymal or mediastinal process. HOME MEDICATIONS: Patient's home medications include: - vitamin D 2000 units daily - dexamethasone 12 mg on chemotherapy days - Benadryl as needed - Ninlaro 3 mg chemotherapy regimen - levothyroxine 50 mcg daily - Renvela 1600 mg by mouth with meals - Revlimid has been stopped CURRENT INPATIENT MEDICATIONS: Patient's medications have all been reviewed by me. She was given one dose of dexamethasone. She is on: - levothyroxine 50 mcg by mouth daily - Renvela 1600 mg by mouth with meals - vitamin D 2000 units by mouth daily ASSESSMENT: A 73-year-old female with past medical history of end-stage renal disease on hemodialysis Friday, Friday, Friday, history of multiple myeloma currently undergoing chemotherapy, history of Crohn's disease status post colectomy and ileostomy, admitted this time with shortness of breath secondary to right-sided pneumothorax. PLAN: 1. End-stage renal disease on hemodialysis. Today is patient's regular day of dialysis. She missed outpatient dialysis because of shortness of breath. She will be dialyzed today inpatient. There is no evidence of fluid overload. She will be maintained during dialysis. 2. Shortness of breath secondary to right-sided pneumothorax and lactic acidosis. Lactic acid is mildly elevated. There is no signs of sepsis at this point. She will dialyzed. Continue the lactic acid monitoring for now. Patient does not get any fluid removal during dialysis. Her pneumothorax will be monitored for now because it is small in size. 3. Hypothyroidism. Continue current dose of levothyroxine 50 mcg by mouth daily. 4. Chronic kidney disease, mineral bone disease. Continue current dose of Renvela 1600 mg by mouth three times a day with meals. 5. 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 Hemoglobin is 12.2, which is optimal. No need of Aranesp administration at this point. 6. Multiple myeloma, not having achieved remission. Patient gets Ninlaro 3 mg on day 1, 8 and 15 of 22 day cycle and she takes dexamethasone 12 mg on 1, 8 and 15 and 22 of cycle. Continue current dose. The rest of the management is as per hematology/oncology. 7. Ileostomy status. Patient's volume status is optimal. She gets minimal ultrafiltration during hemodialysis. Volume status is optimal. Thank you for involving me in care of this patient. I shall be happy to follow the patient along with you. Plan of care was discussed with emergency room (ER) physician, Dr. Guillermo and emergency inpatient hemodialysis was arranged.
[2018-10-28 19:40] VITALS: BP 62/46
[2018-10-28 19:44] VITALS: BP 80/42
[2018-10-28] MEDS: SLF 3 ML SYR IV SCH (22:00)
[2018-10-29] VITALS: BP 84/56
[2018-10-29 04:00] VITALS: BP 88/50
[2018-10-29] MEDS: LEVOTHYROXINE 50MCG TABLET (0.05MG) PO SCH (05:46)
[2018-10-29] MEDS: SLF 3 ML SYR IV SCH ×3 (05:47→21:23)
[2018-10-29 05:57] LABS: HEMATOCRIT 32.2 % (36.0-47.0); HEMOGLOBIN 10.9 g/dl (12.0-15.5); MEAN CORPUSCULAR HEMOGLOBIN 33.9 pg (27.0-33.0); MEAN CORPUSCULAR HGB CONC 33.9 g/dl (32.0-36.5); PLATELET COUNT, AUTOMATED 134 10^3/uL (150-450); RED BLOOD COUNT 3.22 10^6/uL (4.00-5.40); WHITE BLOOD COUNT 2.9 10^3/uL (4.0-10.0)
[2018-10-29 06:27] LABS: ALBUMIN 3.1 GM/DL (3.2-5.2); CALCIUM LEVEL 8.5 MG/DL (8.8-10.2); CREATININE FOR GFR 4.21 MG/DL (0.55-1.30); GLOMERULAR FILTRATION RATE 11.1 (>39); PHOSPHORUS LEVEL 4.6 MG/DL (2.5-4.9); POTASSIUM SERUM 4.7 MEQ/L (3.5-5.1)
[2018-10-29 08:00] VITALS: BP 90/60
--- NOTE | 2018-10-29 08:32 | REP ---
Clinical: Pneumothorax. Technique: PA and lateral. Comparison: 10 28 18. Findings: The previously identified minuscule right apical pneumothorax appears to be decreased and near completely resolved. Double-lumen dialysis catheter with tip in the SVC. The cardiac silhouette is normal. Lung george demonstrate chronic interstitial changes. No effusion. Left axillary stent along with bilateral axillary node dissection noted. Skeletal structures demonstrate osteopenia and degenerative changes including thoracolumbar vertebral plasty. Impression: 1. Right pneumothorax is near completely resolved. 2. No new acute process identified. Electronically Signed by Celestino López MD 10/29/2018 08:24 A
[2018-10-29] MEDS: (RENVELA) SEVELAMER **CARBONate** 800 MG TAB PO SCH ×3 (08:54→18:36)
[2018-10-29] MEDS: VITAMIN D 1,000 INTERNATIONAL UNITS TABLET PO SCH (08:54)
--- NOTE | 2018-10-29 10:17 | IPN ---
DATE: 10/29/2018 Yoana was admitted with shortness of breath. She had a tiny pneumothorax which did not seem large enough to be causing any dyspnea and, in deed, this has resolved radiographically. She still feels dyspneic and weak as she was when she was admitted. She says that when she tried to get on the stretcher to have a chest x-ray done today, she felt very weak and shortness of breath and had to lie down. No chest pain. PHYSICAL EXAMINATION: Blood pressure has been low at 62/46, at one point 90/60 on another. GENERAL APPEARANCE: Frail elderly, lying in bed. HEENT: Unremarkable. LUNGS: Decreased breath sounds both bases. HEART: Regular rate and rhythm. ABDOMEN: Soft, nontender. There is no peripheral edema. IMPRESSION: 1. Shortness of breath. Etiology is unknown. I expect this is related to her lactic acidosis secondary to end-stage renal disease and missed dialysis sessions. However, this has not improved after her dialysis yesterday. Pneumothorax is not contributing to the shortness of breath; it was tiny to begin with and has since resolved and her symptoms are unchanged. 2. Hypothyroidism: Continue with levothyroxine 50 mcg daily. 3. Multiple myeloma: Getting chemotherapy including dexamethasone. 4. 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 Will follow this with daily lab testing. 5. Hypotension: She is on no antihypertensives. Volume status is determined through her dialysis sessions. The case will be discussed with her tire bagger, Dr. Leslie dobson.
[2018-10-29 12:00] VITALS: BP 92/52
[2018-10-29 16:50] VITALS: BP 114/70
[2018-10-29 22:00] VITALS: BP 100/60
[2018-10-30 06:00] VITALS: BP 91/58
[2018-10-30 06:09] LABS: HEMATOCRIT 34.2 % (36.0-47.0); HEMOGLOBIN 11.4 g/dl (12.0-15.5); MEAN CORPUSCULAR HEMOGLOBIN 33.7 pg (27.0-33.0); MEAN CORPUSCULAR HGB CONC 33.3 g/dl (32.0-36.5); MEAN CORPUSCULAR VOLUME 101.2 fl (80.0-96.0); PLATELET COUNT, AUTOMATED 154 10^3/uL (150-450); RED BLOOD COUNT 3.38 10^6/uL (4.00-5.40); WHITE BLOOD COUNT 4.3 10^3/uL (4.0-10.0)
[2018-10-30] MEDS: LEVOTHYROXINE 50MCG TABLET (0.05MG) PO SCH (06:26)
[2018-10-30] MEDS: VITAMIN D 1,000 INTERNATIONAL UNITS TABLET PO SCH (06:27)
[2018-10-30] MEDS: SLF 3 ML SYR IV SCH (06:27)
[2018-10-30 06:30] LABS: ALBUMIN 3.4 GM/DL (3.2-5.2); CALCIUM LEVEL 9.2 MG/DL (8.8-10.2); CREATININE FOR GFR 5.94 MG/DL (0.55-1.30); GLOMERULAR FILTRATION RATE 7.4 (>39); PHOSPHORUS LEVEL 5.8 MG/DL (2.5-4.9); POTASSIUM SERUM 4.6 MEQ/L (3.5-5.1)
[2018-10-30] MEDS: (RENVELA) SEVELAMER **CARBONate** 800 MG TAB PO SCH ×2 (07:51→12:36)
--- NOTE | 2018-10-30 12:49 | DSES ---
DATE OF ADMISSION: 10/28/2018 DATE OF DISCHARGE: 10/30/2018 PRINCIPAL DIAGNOSIS: Shortness of breath with small right pneumothorax. SECONDARY DIAGNOSES: Lactic acidosis. End-stage renal disease, on maintenance dialysis. Hypothyroidism. Multiple myeloma, receiving chemotherapy. 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 Hypotension. HISTORY: Yoana Escobedo was admitted for shortness of breath. Details are in history and physical from admission. HOSPITAL COURSE: Patient admitted to progressive care unit (PCU) bed. She had a tiny pneumothorax from recent placement of a PermaCath in interventional radiology done on 10/22/2018. This was not felt to be the cause of shortness of breath and, indeed, it resolved on followup radiographs with no change in her chronic mild shortness of breath. I think her shortness of breath is probably multifactorial, probably related to constitutional problems such as her age, end-stage renal disease, mild anemia, and the lactic acidosis. Patient was evaluated by Dr. Thomas; waiting for his notes, but we communicated and he agreed that the pneumothorax was tiny and unlikely to cause any symptoms. On day of discharge, she is resting comfortably, feels able to go home. Her blood pressure is around 90-100 systolic. Heart rate 75. She is afebrile. Lungs clear. Heart regular rhythm. Abdomen soft, nontender. PermaCath site looks good. No peripheral edema. Labs were reviewed today. Potassium was normal. Hemoglobin was 11.4. DISPOSITION: Is discharge home. She can followup with Dr. Herrera. Workup the history of shortness of breath, which again is chronic and mild. As an outpatient, she will take the same medicines she was taking prior to admission. - vitamin D 2000 units daily - dexamethasone 12 mg as directed related to dosing of her chemotherapy - Benadryl 25 mg three times a week - Ninlaro 3 mg as directed - levothyroxine 50 mcg daily - Renvela 1600 mg with meals - Kayexalate as needed for hyperkalemia Activity as tolerated. 2-gram sodium diet recommended. Followup with primary care provider in a week. Followup with dialysis per current schedule. Edited: [facility] 10/31/2018 [id number]
[2018-10-30] MEDS ORDERED: HEPARIN 1,000 UNITS/ML 10ML VIAL (FOR RADIOLOGY& DIALYSIS ONLY) IV ONE (13:30)
[2018-10-30] MEDS ORDERED: HEPARIN 1,000 UNITS/ML 10ML VIAL (FOR RADIOLOGY& DIALYSIS ONLY) XX ONE (13:30)
--- NOTE | 2018-10-30 15:24 | IPN ---
DATE OF SERVICE: 10/29/2018 SUBJECTIVE: Patient was seen and examined at the bedside today morning. She is afebrile, hemodynamically stable. Last 24 hour events were noted. Patient was having low blood pressures overnight, but patient reports that she is asymptomatic. She reports that usually her blood pressures run in 80s and 90s. She was dialyzed yesterday. She tolerated the hemodialysis procedure well. OBJECTIVE: VITAL SIGNS: Temperature is 97.3 degrees Fahrenheit. Blood pressure 90/60. Pulse is 86. Respiratory rate of 18. Saturating 97% on room air. INTAKE AND OUTPUT: Urine output recorded as 300 mL. Ultrafiltration with hemodialysis was 900 mL. Weight on the bed scale is 43 kg. PHYSICAL EXAM: GENERAL: Patient is awake, alert, oriented times three, laying in bed, no apparent distress. HEAD AND NECK EXAM: Extraocular muscles intact. Pupils equally round and reactive to light. Mucous membranes are moist. Neck is supple. There is no jugular venous distention (JVD). CARDIOVASCULAR: S1, S2. Regular rate. No edema of the bilateral lower extremities. RESPIRATORY: Chest is clear to auscultation bilaterally. Bilateral equal air entry. No rales or rhonchi. ABDOMEN: Soft. Positive bowel sounds. Nontender. No organomegaly. MUSCULOSKELETAL: No clubbing or cyanosis. Pulses are 2+. ARTERIOVENOUS (AV) ACCESS: Patient has a right internal jugular (IJ) tunneled hemodialysis catheter and left upper arm AV fistula. There is no thrill and bruit, and there are mara on the distal portion of the fistula. CENTRAL NERVOUS SYSTEM (HOST): No focal deficit. Power is 5/5 in all extremities. LAB REVIEW: CBC showed a WBC of 2.9, hemoglobin 10.9, platelets of 134. BMP showed sodium 132, potassium 4.7, chloride 98, bicarbonate 25, BUN 33, creatinine is 4.2, calcium 8.5, phosphorous 4.6, albumin is 3.1. MICROBIOLOGY: Blood cultures are negative so far. IMAGING: A repeat chest x-ray was done today, which showed right pneumothorax is near completely resolved. No acute process. CURRENT INPATIENT MEDICATIONS: Inpatient medications were all reviewed by me. She was given a dose of dexamethasone for tomorrow. No other change in her medications as compared with yesterday. ASSESSMENT AND PLAN: 1. End-stage renal disease on hemodialysis. Patient was dialyzed yesterday. She tolerated hemodialysis procedure well. Volume status is optimized. 2. Shortness of breath with right-sided pneumothorax. Her pneumothorax showed improvement on the repeat chest x-ray. Shortness of breath is improving. She is comfortable on the room air at this point. 3. Anemia secondary to end-stage renal disease. Hemoglobin is 10.9, which is optimal. Rest of the anemia management will be done as outpatient. 4. Multiple myeloma, not having achieved remission. Patient gets Ninlaro and dexamethasone. Continue current dose as per outpatient schedule. 5. Chronic kidney disease, mineral bone disease. Continue current dose of Renvela with meals. 6. Hypotension. Patient is chronically hypotensive. Her blood pressures stay in the 80s and 90s. She is asymptomatic. Minimal amount of ultrafiltration is done with hemodialysis.
--- NOTE | 2018-10-31 11:35 | IPN ---
DATE: 10/30/2018 SUBJECTIVE: The patient was seen and examined on the bedside this morning during hemodialysis procedure. The patient is tolerating her hemodialysis procedure well. She is afebrile and hemodynamically stable. OBJECTIVE: VITAL SIGNS: Temperature 97.1 degrees Fahrenheit. Blood pressure 91/58, pulse 75, respiratory rate of 18, saturating 96% on room air. Intake and output: Urine output is not recorded. Weight on the bed scale was 43 kg yesterday. PHYSICAL EXAMINATION: GENERAL: The patient is awake, alert, oriented times three. Lying in bed getting hemodialysis done. HEAD AND NECK: Extraocular muscles are intact. Pupils are equal, round and reactive to light. Mucous membranes are moist. Neck is supple. There is no jugular venous distention (JVD). CARDIOVASCULAR: S1, S2. Regular rate. No edema of the bilateral lower extremities. RESPIRATORY: Chest is clear to auscultation bilaterally. Bilateral equal air entry. No rales or rhonchi. ABDOMEN: Soft. Positive bowel sounds. Nontender. No organomegaly. MUSCULOSKELETAL: No clubbing or cyanosis. Pulses are 2+. AV ACCESS: The patient has a left upper arm AV graft, which has mara on it and is not working at this point. She has a right IJ tunneled hemodialysis catheter, which is being used for dialysis. CENTRAL NERVOUS SYSTEM (PRODUCT DEVELOPMENT DIRECTOR): No focal deficits. Power is 5/5 in all extremities. LABORATORY REVIEW: CBC showed a WBC 4.3, hemoglobin 11.4, platelets 154. BMP showed sodium 135, potassium 4.6, chloride 96, bicarbonate 24, BUN 56, creatinine 5.9, calcium is 9.2, phosphorous is 5.8. CURRENT INPATIENT MEDICATIONS: The patient's medications were all reviewed by me. There is no change in the medications today as compared to yesterday. ASSESSMENT AND PLAN: 1. End stage renal disease on hemodialysis. The patient is being dialyzed today according to regular schedule. She gets minimal ultrafiltration due to hemodialysis. 2. Shortness of breath and right sided pneumothorax. Her pneumothorax has resolved on both repeat x-rays. She reports her shortness of breath is significantly better. 3. Anemia secondary to end stage renal disease. Hemoglobin is optimal. The rest of the anemia management will be done as an outpatient. 4. Multiple myeloma. In remission. The patient will get home dose of chemotherapy and dexamethasone after discharge. 5. 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 Continue current dose of Renvela. DISPOSITION: The patient is stable and will be discharged over the next 24 hours. MTDD
[2018-11-04] MEDS ORDERED: MIDO2.5T PO (10:21)
[2018-11-04] MEDS ORDERED: ACYC200C8 PO (11:21)
[2018-11-04] MEDS ORDERED: ZOVI5OIN8 TOP (11:21)
== END 2018-10-30 14:47 | disposition home or self-care (01) ==
LOC: M ED 06:19 → M ED INP 12:13 → M PCU 15:00 → M MSPAV 10-29 16:43 → OBSVTOIN 10-30 09:52 → INTOOBSV 10-30 09:52
PROVIDERS: ADMIT Family Medicine; ATTEND Family Medicine
DX: R06.02 Shortness of breath (principal); J93.9 Pneumothorax, unspecified; E87.2 Acidosis; N18.6 End stage renal disease; E03.9 Hypothyroidism, unspecified; C90.00 Multiple myeloma not having achieved remission; D63.1 Anemia in chronic kidney disease; I95.9 Hypotension, unspecified; Z79.899 Other long term (current) drug therapy
CPT/HCPCS: 36415; 36600; 71045; 71046; 71275; 80048; 80069; 82550; 82553; 82803; 83605; 84484; 85025; 85027; 85610; 85730; 86850; 86900; 86901; 87040; 93005; 99285; G0257; G0378; Q9967

== ENCOUNTER 2018-11-10 12:08 | Day surgery (SDC) | payer MEDICARE, OTHER ==
[~2018-11-10] VITALS: Ht 162.6 cm; Wt 44.9 kg
[~2018-11-10 12:08] MED LIST changes: +ACYC200C8 PO; +MIDO2.5T PO; +ZOVI5OIN8 TOP
[2018-11-10] MEDS ORDERED: NS 1,000 ML IV ONE (12:30)
[2018-11-10] MEDS ORDERED: PROPOFOL 200 MG/20 ML VIAL As Ordered ONE ×2 (13:22→15:14)
[2018-11-10] MEDS ORDERED: MIDAZOLAM INJ 2 MG/2 ML VIAL (J2250) As Ordered ONE (13:22)
[2018-11-10] MEDS ORDERED: fentaNYL 100 MCG/2 ML INJECTION (J3010) As Ordered ONE (13:22)
[2018-11-10] MEDS ORDERED: LIDOCAINE 2% INJ 100 MG/5 ML SDV (FOR ANES.) As Ordered ONE ×2 (13:22→15:14)
[2018-11-10] MEDS ORDERED: CLINDAMYCIN 600 MG/50 ML PREMIX BAG As Ordered ONE (13:44)
[2018-11-10] MEDS ORDERED: LIDOCAINE 1% SDV INJ 30 ML VIAL As Ordered ONE (13:44)
[2018-11-10] MEDS ORDERED: BUPIVACAINE HCL 0.5% 30 ML VIAL As Ordered ONE (13:44)
[2018-11-10] MEDS ORDERED: HEPARIN SOD (PORCINE) 5000 UNITS/ML VIAL As Ordered ONE ×3 (13:44→15:33)
[2018-11-10] MEDS ORDERED: PHENYLephrine HCL 500 MCG/5 ML (100MCG/ML) SYRINGE (J2370) As Ordered ONE ×3 (14:26→15:56)
[2018-11-10] MEDS ORDERED: THROMBIN SOLN 20,000 UNITS KIT As Ordered ONE (14:52)
[2018-11-10] MEDS ORDERED: ePHEDrine SULFATE 25 MG/5 ML(5MG/ML) SYRINGE As Ordered ONE (14:55)
[2018-11-10] MEDS ORDERED: ISOVUE-300 61% 50ML VIAL (Q9967) As Ordered ONE (15:39)
[2018-11-10] MEDS ORDERED: PERCOCET 5MG/325MG TAB PO PRN (17:00)
[2018-11-10] MEDS ORDERED: fentaNYL 100 MCG/2 ML INJECTION (J3010) IV PRN (17:00)
[2018-11-10] MEDS ORDERED: LR 1,000 ML IV SCH (17:00)
[2018-11-10] MEDS ORDERED: ONDANSETRON 4MG/2ML VIAL (J2405) IV PRN (17:00)
[2018-11-10 17:10] VITALS: BP 93/52
--- NOTE | 2018-11-30 08:44 | RO ---
DATE OF PROCEDURE: 11/10/2018 ATTENDING SURGEON: Dr. Breonna Thomas LOPPER: Niraj Ireland PA-C PREOPERATIVE DIAGNOSES: End-stage renal disease status post placement of a right internal jugular vein tunneled central venous catheter for hemodialysis access. Thrombosed left brachial artery to axillary vein arteriovenous graft. POSTOPERATIVE DIAGNOSES: End-stage renal disease status post placement of a right internal jugular vein tunneled central venous catheter for hemodialysis access. Thrombosed left brachial artery to axillary vein arteriovenous graft. PROCEDURE: Open surgical thrombectomy of thrombosed left brachial artery to axillary vein arteriovenous graft, patch angioplasty of the left brachial artery to arteriovenous graft anastomosis with a XenoSure biologic patch, left axillary vein angioplasty with 10 x 80 mm balloon, left subclavian vein angioplasty with 12 x 80 mm balloon, left innominate vein angioplasty with 12 x 80 mm balloon. INDICATION: The patient is a 73-year-old female with end-stage renal disease, who dialyzes through a left brachial artery to axillary vein arteriovenous graft, which the patient has had for approximately 9 years. The patient has required stenting of the graft to axillary vein anastomosis as well as recurrent angioplasty of the stented region and the innominate subclavian vein junction to the recurrent stenosis. The patient has now undergone multiple interventions for thrombosis of the graft with thrombolysis and the patient has undergone open surgical intervention but continues to have thrombosis of the graft. The patient will undergo an extensive open surgical thrombectomy with possible angioplasty stenting and/or atherectomy in order to maintain patency of the left brachial artery to axillary vein arteriovenous graft. The procedure was described and explained to the patient in detail, including drawing of pictures demonstrating the procedure and the anatomy. Risks, benefits and alternative treatment options were discussed with the patient. Alternative options included but were not limited to no intervention. Benefits included but were not limited to scientology of patency to the arteriovenous graft, which would be usable for hemodialysis access and ability to remove the tunneled central venous catheter in the right internal jugular vein. Risks included but were not limited to infection, bleeding, possible need for further open surgical intervention, adverse reaction to the prepping and draping materials, adverse reaction to the IV contrast, adverse reaction to the anesthetic and/or local anesthetic, cerebrovascular accident, myocardial infarction, pulmonary embolus, loss of limb loss, loss of access, loss of life, poor outcome, poor results and poor satisfaction. The patient's questions were answered. The risks of not performing the procedure included but were not limited to continued use of the right internal jugular vein tunneled central venous catheter for access with need for creation of a new access elsewhere. The patient voices understanding and acceptance of these risks, benefits and alternative treatment options and consents to proceed. No guarantees or promises were made to the patient regarding the procedure results and/or outcome. ANESTHESIA. Local monitored anesthesia care (MAC). ESTIMATED BLOOD LOSS: 150 mL. IV FLUIDS: 700 mL. HEPARIN: 7000 units followed by an additional 3000 unit bolus. FLUOROSCOPY TIME: 5 minutes 15 seconds. CONTRAST 12 mL of Isovue-300 COMPLICATIONS: None. DRAINS: None. SPECIMENS: None. IMPLANTS: XenoSure biologic patch used to perform a patch angioplasty of the brachial artery to arteriovenous graft anastomosis. DESCRIPTION OF PROCEDURE: The patient was taken to the operating room, placed on the operating room table and the left upper extremity was prepped and draped in a standard surgical fashion. A time-out was conducted by myself and the team members in the room confirming the correct patient, procedure and laterality. The previous incision made to perform the open surgical thrombectomy was reopened after removal of the mara and elongated along the course of the graft in the upper arm. The graft was dissected free proximally and distally as well as the brachial artery being dissected proximal and distal. The graft and the brachial artery were encircled with vessel loops. The patient was given 7000 units of heparin, after which, the brachial artery was clamped proximal distal to the graft to brachial artery anastomosis and the graft was clamped in the upper arm. The graft was then opened with an 11-blade used to make a graftotomy and this was elongated with Corbin scissors down to the arterial to graft anastomosis and up through the aneurysmal areas of graft in the left upper arm. There was thrombus in the graft, which was removed. There was intimal hyperplasia at the graft to brachial artery anastomosis, which was removed, after which, the graft to brachial artery anastomosis underwent patch angioplasty with #6-0 Prolene suture and XenoSure biologic patch in a running continuous fashion. The brachial artery was retrograde and antegrade flushed. A clamp was placed on the graft just after the arterial to graft anastomosis and flow was reestablished through the brachial artery into the arm. The remainder of the graft underwent thrombectomy with removal of thrombus from the graft axillary vein, subclavian and innominate vein. There was suboptimal backbleeding noted through the graft. A venogram was then performed, which showed stenosis within the previously placed stent as well as in the subclavian vein, innominate vein junction. The graft to axillary vein was angioplastied with a 10 mm x 80 mm balloon. The subclavian vein and innominate vein were angioplastied with a 12 x 80 mm balloon. There was improved back bleeding noted after the angioplasty and no residual thrombus on followup fistulogram. The remainder of the graftotomy was closed using a XenoSure biologic patch and #6-0 Prolene suture in running continuous fashion. Prior to closing the graftotomy, the graft was flushed antegrade and retrograde, after which, the graft artery closure was completed and flow was reestablished through the graft into the central venous system. There was a thrill palpable in the graft at the completion of the repair. There was good flow noted in the brachial artery distal and proximal to the graft to brachial artery anastomosis, which underwent patch angioplasty. Hemostasis was then obtained, after which, the wound was closed using #2-0 Vicryl to approximate the deeper layers and mara to approximate the skin. There was a strong thrill palpable in the graft at the completion of the surgery. Dressings were applied. The patient tolerated procedure well. All instrument, sponge and needle counts were correct at the end the case. There were no complications. Dr. Thomas was present for directed the entire case. The patient was transferred to the recovery room. The procedure results and findings were discussed with the patient in the recovery room with all of her questions answered. RADIOLOGIC SUPERVISION INTERPRETATION: The graft underwent open surgical thrombectomy with poor backbleeding noted from the venous outflow tract and a fistulogram was performed showing stenosis within the previously graft stented portion of axillary vein and graft as well as at the subclavian vein, innominate vein junction. The graft and axillary vein underwent angioplasty with a 10 mm x 80 mm balloon. The left subclavian vein and innominate vein underwent angioplasty with a 12 mm x 80 mm balloon. A completion fistulogram showed resolution of the stenosis with excellent flow through the graft into the axillary vein, subclavian, innominate vein essentially with no residual stenosis remaining. CONCLUSION: The patient underwent successful patch angioplasty of the graft to brachial artery anastomosis, removal of the aneurysmal portion of graft with patch angioplasty of the graft and angioplasty of the graft to axillary vein anastomosis, which had previously been stented, as well as the innominate vein, subclavian vein junction due to recurrent stenosis. At the completion of the procedure, there was a strongly palpable thrill in the graft, which was noted to be widely patent. MTDD
== END 2018-11-10 17:39 | disposition home or self-care (01) ==
LOC: M SDC 12:08
PROVIDERS: ATTEND Surgery Vascular Surgery
DX: T82.868A Thrombosis due to vascular prosthetic devices, implants and grafts, initial encounter (principal); T82.858A Stenosis of other vascular prosthetic devices, implants and grafts, initial encounter; N18.6 End stage renal disease; Z99.2 Dependence on renal dialysis

== ENCOUNTER 2018-11-12 13:31 | Inpatient (IN) | payer MEDICARE, OTHER ==
[~2018-11-12] VITALS: Ht 162.6 cm; Wt 48.0 kg
[2018-11-12 14:06] LABS: BASO % 0.1 % (0.0-1.0); HEMATOCRIT 24.5 % (36.0-47.0); HEMOGLOBIN 8.3 g/dl (12.0-15.5); LYMPH # 1.2 10^3/uL (1.5-4.5); LYMPH % 5.3 % (24.0-44.0); MEAN CORPUSCULAR HEMOGLOBIN 34.2 pg (27.0-33.0); MEAN CORPUSCULAR HGB CONC 33.9 g/dl (32.0-36.5); MEAN CORPUSCULAR VOLUME 100.8 fl (80.0-96.0); MONO % 4.3 % (0.0-5.0); NEUTROPHILS # 20.9 10^3/uL (1.8-7.7); NEUTROPHILS % 88.9 % (36.0-66.0); PLATELET COUNT, AUTOMATED 146 10^3/uL (150-450); RED BLOOD COUNT 2.43 10^6/uL (4.00-5.40); WHITE BLOOD COUNT 23.5 10^3/uL (4.0-10.0)
[2018-11-12] MEDS ORDERED: NORC1TAB4 PO (14:13)
[2018-11-12 14:14] LABS: INR 0.95; PROTHROMBIN TIME 12.7 SECONDS (12.1-14.4)
[2018-11-12 14:33] LABS: ALBUMIN 3.1 GM/DL (3.2-5.2); ALT/SGPT 12 U/L (12-78); BILIRUBIN,DIRECT 0.3 MG/DL (0.0-0.2); BILIRUBIN,TOTAL 1.2 MG/DL (0.2-1.0); BLOOD UREA NITROGEN 63 MG/DL (7-18); CALCIUM LEVEL 8.9 MG/DL (8.8-10.2); CARBON DIOXIDE LEVEL 24 MEQ/L (21-32); CHLORIDE LEVEL 95 MEQ/L (98-107); CPK CREATINE PHOSPHOKINASE 138 U/L (26-192); CREATININE FOR GFR 8.08 MG/DL (0.55-1.30); GLOMERULAR FILTRATION RATE 5.2 (>39); GLUCOSE, FASTING 111 MG/DL (70-100); MB/CK RELATIVE INDEX 1.88 (< OR =4); NT-PRO BNP 763 PG/ML (<125); POTASSIUM SERUM 4.1 MEQ/L (3.5-5.1); SODIUM LEVEL 132 MEQ/L (136-145); TOTAL PROTEIN 6.6 GM/DL (6.4-8.2); TROPONIN I < 0.02 NG/ML (< 0.10)
--- NOTE | 2018-11-12 14:41 | REP ---
Chest two views HISTORY: Cough Comparison: 11/04/2018 The lungs are clear. The heart is normal in size. The pulmonary vasculature is normal in appearance. The patient is status post T11-L1 kyphoplasty. An [id number] catheter is present. IMPRESSION: No acute disease. Electronically Signed by Russell Dixon MD 11/12/2018 02:34 P
[2018-11-12] MEDS ORDERED: MIDODRINE 2.5 MG TAB PO ONE ×2 (15:30→19:30)
--- NOTE | 2018-11-12 15:40 | REP ---
Left upper extremity duplex arterial and venous ultrasound: History: Recent thrombectomy, longstanding left upper extremity fistula. Question venous thrombosis. Findings: A bandage is precluded scanning over the distal arm and antecubital fossa region from recent surgery. There is no evidence of venous thrombosis in the visualized upper extremity veins including internal jugular, subclavian, axillary, cephalic, basilic and mid and upper brachial veins. Flow is observed in the patient's fistula in the upper arm. Impression: No evidence of venous thrombosis. Patent fistula. Electronically Signed by Dejon Daniel MD 11/12/2018 03:32 P
[2018-11-12] MEDS ORDERED: KION15SU PO (16:45)
[2018-11-12] MEDS ORDERED: ENSULIQ10 PO (16:47)
[2018-11-12] MEDS ORDERED: TYLE1TAB5 PO (16:50)
[2018-11-12] MEDS ORDERED: APAP325T4 PO (16:50)
[2018-11-12] MEDS ORDERED: LR 1,000 ML IV SCH (17:17)
--- NOTE | 2018-11-12 17:26 | HPEPDOC ---
General Date of Admission Attending Physician: Scout Thomas MD Chief Complaint The patient is a 73-year-old female admitted with a reason for visit of Short Of Breath/Bleeding Fistula. Home Medications Scheduled (Restasis) 0.05 % Emu, 1 DROP OU BID, (Reported) (Ensure) 1 Liq Liq, 1 DOSE PO TID, (Reported) TAKES IN BETWEEN MEALS. Cholecalciferol (Vitamin D-3) 2,000 Unit Tab, 2,000 UNIT PO DAILY, (Reported) Dexamethasone (Dexamethasone) 4 Mg Tab, 12 MG PO ASDIRECTED, (Reported) TAKES ON DAYS 1,8,15,22 OF CYCLE. LAST DOSE WAS ON DAY 1 OF CYCLE. Diphenhydramine HCl (Benadryl Allergy) 25 Mg Cap, 25 MG PO 3XW, (Reported) TAKES PRIOR TO DIALYSIS M,W,F Ixazomib Citrate (Ninlaro) 3 Mg Cap, 3 MG PO ASDIRECTED, (Reported) TAKES ON DAY 1,8,15 OF 22 DAY CYCLE. LAST DOSE WAS DAY 1 OF CYCLE Levothyroxine Sodium (Unithroid Direct) 50 Mcg Tab, 50 MCG PO DAILY, (Reported) Midodrine (Midodrine HCl) 2.5 Mg Tab, 2.5 MG PO TID, (Reported) Sevelamer Carbonate (Renvela) 800 Mg Tab, 1,600 MG PO WM, (Reported) Sodium Polystyrene Sulfonate (Kionex) 15 Gm/60 Ml Teena, 60 ML PO ASDIRECTED, (Re ported) PATIENT ONLY TAKES IF DIRECTED BY DOCTOR. Scheduled PRN (Tylenol Pm Extra Strength 500-25 mg) 1 Tab Tab, 2 TAB PO QHS PRN for PAIN, (Reported) Acetaminophen (Apap) 325 Mg Tab, 650 MG PO Q6H PRN for PAIN, (Reported) Acetaminophen/Hydrocodone (Ephrata 5-325 mg) 1 Tab Tab, 2 TAB PO Q4H PRN for PAIN, (Reported) Allergies Coded Allergies: Vancomycin (Verified Allergy, Intermediate, RASH/ITCHING, 11/10/18) Vital Signs Vital Signs Date Time Temp Pulse Resp B/P (MAP) Pulse Ox O2 Delivery O2 Flow Rate FiO2 11/12/18 16:55 75 16 100 11/12/18 16:54 92/50 (64) 11/12/18 15:16 Room Air 11/12/18 14:11 15.0 11/12/18 13:46 96.2 Laboratory Data Labs 24H Laboratory Tests 2 11/12/18 13:49: Immature Granulocyte % (Auto) 1.4, White Blood Count 23.5H, Red Blood Count 2.43L, Hemoglobin 8.3L, Hematocrit 24.5L, Mean Corpuscular Volume 100.8H, Mean Corpuscular Hemoglobin 34.2H, Mean Corpuscular Hemoglobin Concent 33.9, Red Cell Distribution Width 18.9H, Platelet Count 146L, Neutrophils (%) (Auto) 88.9H, Lymphocytes (%) (Auto) 5.3L, Monocytes (%) (Auto) 4.3, Eosinophils (%) (Auto) 0.0, Basophils (%) (Auto) 0.1, Neutrophils # (Auto) 20.9H, Lymphocytes # (Auto) 1.2L, Monocytes # (Auto) 1.0H, Eosinophils # (Auto) 0.0, Basophils # (Auto) 0.0, Nucleated Red Blood Cells % (auto) 0.0, Prothrombin Time 12.7, Prothromb Time In ternational Ratio 0.95, Anion Gap 13, Glomerular Filtration Rate 5.2L, Calcium Level 8.9, Aspartate Amino Transf (AST/SGOT) 11, Alanine Aminotransferase (ALT/SGPT) 12, Alkaline Phosphatase 82, Total Bilirubin 1.2H, Direct Bilirubin 0.3H, Total Creatine Kinase 138, Creatine Kinase MB 3.0, Creatine Kinase MB Relative Index 1.88, Troponin I < 0.02, [id number] Natriuretic Peptide 763H, Total Protein 6.6, Albumin 3.1L, Albumin/Globulin Ratio 0.89L, Thyroid Stimulating Hormone (TSH) 2.530 CBC/BMP Laboratory Tests 11/12/18 13:49 Red Blood Count 2.43 L, Mean Corpuscular Volume 100.8 H, Mean Corpuscular Hemoglobin 34.2 H, Mean Corpuscular Hemoglobin Concent 33.9, Red Cell Dis tribution Width 18.9 H, Neutrophils (%) (Auto) 88.9 H, Lymphocytes (%) (Auto) 5.3 L, Monocytes (%) (Auto) 4.3, Eosinophils (%) (Auto) 0.0, Basophils (%) (Auto) 0.1, Neutrophils # (Auto) 20.9 H, Lymphocytes # (Auto) 1.2 L, Monocytes # (Auto) 1.0 H, Eosinophils # (Auto) 0.0, Basophils # (Auto) 0.0 JASON SUN PA-C Nov 12, 2018 17:26
[2018-11-12] MEDS ORDERED: ONDANSETRON 4MG/2ML VIAL (J2405) IV PRN (17:30)
--- NOTE | 2018-11-12 20:25 | HPEPDOC ---
[facility] Medical History & Physical Date of Admission Nov 12, 2018 Attending Physician: Scout Thomas MD History and Physical CHIEF COMPLAINT: SOB and Lt arm AV fistula bleed with hematoma HISTORY OF PRESENT ILLNESS: The patient is a 73-year-old female with end-stage renal disease who has had multiple episodes of thrombosis of her left brachial artery to axillary artery arteriovenous graft and has undergone thrombolysis. The patient has undergone repeat thrombosis and had thrombolysis recently. Two days ago on 11/10/18, patient underwent the Lt arm B-A graft thrombectomy and revision. She was discharged home on the same day of the surgery. Patient developed pain and bleed from the site of the AVF graft since yesterday. Her Lt upper arm was swollen. Thus, she missed the HD yesterday. Patient has baseline dyspnea since stem cell transplant 04/11. She was found to have minuscule Rt apical PTx on CTA 10/28/18. patient stated her SOB got worsened today, but denies chest pain. Patient was brought by EMS to ER for evaluation. Her vitals are stable except BP 80s/50s, Lab H&H 06/05/24.5, BUN 63, Cr 8.9, CXR with no acute disease, Venous Doppler US LUE with no evidence for DVT. Vascular surgery was consulted for evaluation. Patient was admitted to hospital for LUE hematoma evacuation. PAST MEDICAL HISTORY: Cancer - MELANOMA; MULTIPLE MYELOMA Thyroid Disease Kidney Disease Rt apical PTx 10/28/18 PAST SURGICAL HISTORY: Appendectomy, Ileostomy, Lt arm AV fistula creation, revision, thrombectomy Skin Graft - LEFT UPPER ARM Removal Of Melanoma Right Upper Arm, Stem Cell Transplant SOCIAL HISTORY: Tobacco use: Former smoker ETOH: Denies Illicit drug use: Denies FAMILY HISTORY: DM, HTN, CAD. ALLERGIES: Please see below. REVIEW OF SYSTEMS: 14 systems reviewed and were negative except those listed in HPI. HOME MEDICATIONS: Please see below. PHYSICAL EXAMINATION: VITAL SIGNS: Temperature, pulse 79, respiratory rate 18, blood pressure 85/51, pulse oximetry 99% on room air. GENERAL APPEARANCE: AAO x3, in mild distress with mild dyspnea HEENT: NCAD, TERRELL, EOMI CARDIOVASCULAR: RRR, No G/M/R, PP: 2+ b/l LUNGS: CTAB, no R/R/W ABDOMEN: BS nl, soft, NT/ND, no palpable mass EXTREMITIES: No C/C/E in BLE, LUE: recently revision of Lt AVF with a large hematoma and tenderness, distal radial pulse weak, ulnar pulse not palpable wit delayed cap refill, Lt fingers cold. no significant paresthesia NEUROLOGICAL: CN2-12, motor and sensation intact no focal deficits PSYCHIATRIC: Appropriate mood and affect LABORATORY DATA: See below. IMAGIN. CXR: No acute disease. 2. Venous Doppler LUE: No evidence of venous thrombosis. Patent fistula. MICROBIOLOGY: Please see below. ASSESSMENT: 1. LUE hematoma secondary to AVF revision, POD #2 s/p revision and thrombectomy of Lt AV fistula The patient is a 73-year-old female with ESRD on HD was admitted with a large hematoma of LUE AVF graft secondary to recent revision and thrombectomy of Lt B- A AVF graft 2 days ago. Pt has had multiple episodes of thrombosis of her left brachial artery to axillary artery arteriovenous graft. The patient has undergone repeat thrombosis and had thrombolysis recently. Patient missed the dialysis yesterday. She was brought ER with worsening dyspnea of unclear reason, likely multifactorial. CXR w/o finding of acute disease, Venous Doppler of LUE w/o evidence of DVT. Patient will require hematoma evacuation. 2. ESRD on HD via Permcath, missing HD yesterday 3. Dyspnea 4. Hypotension SBP 80s/50s PLAN: 1. LR 75 cc/hr x 1000 ml 2. Schedule LUE hematoma evacuation tomorrow. 3. NPO after midnight 4. Nephrology consult for HD Vital Signs Vital Signs Date Time Temp Pulse Resp B/P (MAP) Pulse Ox O2 Delivery O2 Flow Rate FiO2 11/12/18 18:55 79 16 99 11/12/18 18:45 85/51 (62) 11/12/18 15:16 Room Air 11/12/18 14:11 15.0 11/12/18 13:46 96.2 Laboratory Data Labs 24H Laboratory Tests 2 11/12/18 13:49: Immature Granulocyte % (Auto) 1.4, White Blood Count 23.5H, Red Blood Count 2.43L, Hemoglobin 8.3L, Hematocrit 24.5L, Mean Corpuscular Volume 100.8H, Mean Corpuscular Hemoglobin 34.2H, Mean Corpuscular Hemoglobin Concent 33.9, Red Cell Distribution Width 18.9H, Platelet Count 146L, Neutrophils (%) (Auto) 88.9H, Lymphocytes (%) (Auto) 5.3L, Monocytes (%) (Auto) 4.3, Eosinophils (%) (Auto) 0.0, Basophils (%) (Auto) 0.1, Neutrophils # (Auto) 20.9H, Lymphocytes # (Auto) 1.2L, Monocytes # (Auto) 1.0H, Eosinophils # (Auto) 0.0, Basophils # (Auto) 0.0, Nucleated Red Blood Cells % (auto) 0.0, Prothrombin Time 12.7, Prothromb Time International Ratio 0.95, Anion Gap 13, Glomerular Filtration Rate 5.2L, Calcium Level 8.9, Aspartate Amino Transf (AST/SGOT) 11, Alanine Aminotransferase (ALT/SGPT) 12, Alkaline Phosphatase 82, Total Bilirubin 1.2H, Direct Bilirubin 0.3H, Total Creatine Kinase 138, Creatine Kinase MB 3.0, Creatine Kinase MB Relative Index 1.88, Troponin I < 0.02, VY-Wob-Q-Type Natriuretic Peptide 763H, Total Protein 6.6, Albumin 3.1L, Albumin/Globulin Ratio 0.89L, Thyroid Stimulating Hormone (TSH) 2.530 CBC/BMP Laboratory Tests 11/12/18 13:49 Red Blood Count 2.43 L, Mean Corpuscular Volume 100.8 H, Mean Corpuscular Hemoglobin 34.2 H, Mean Corpuscular Hemoglobin Concent 33.9, Red Cell Distribution Width 18.9 H, Neutrophils (%) (Auto) 88.9 H, Lymphocytes (%) (Auto) 5.3 L, Monocytes (%) (Auto) 4.3, Eosinophils (%) (Auto) 0.0, Basophils (%) (Auto) 0.1, Neutrophils # (Auto) 20.9 H, Lymphocytes # (Auto) 1.2 L, Monocytes # (Auto) 1.0 H, Eosinophils # (Auto) 0.0, Basophils # (Auto) 0.0 Home Medications Scheduled (Restasis) 0.05 % Emu, 1 DROP OU BID (Ensure) 1 Liq Liq, 1 DOSE PO TID TAKES IN BETWEEN MEALS. Cholecalciferol (Vitamin D-3) 2,000 Unit Tab, 2,000 UNIT PO DAILY Dexamethasone (Dexamethasone) 4 Mg Tab, 12 MG PO ASDIRECTED TAKES ON DAYS 1,8,15,22 OF CYCLE. LAST DOSE WAS ON DAY 1 OF CYCLE. Diphenhydramine HCl (Benadryl Allergy) 25 Mg Cap, 25 MG PO 3XW TAKES PRIOR TO DIALYSIS M,W,F Ixazomib Citrate (Ninlaro) 3 Mg Cap, 3 MG PO ASDIRECTED TAKES ON DAY 1,8,15 OF 22 DAY CYCLE. LAST DOSE WAS DAY 1 OF CYCLE Levothyroxine Sodium (Unithroid Direct) 50 Mcg Tab, 50 MCG PO DAILY Midodrine (Midodrine HCl) 2.5 Mg Tab, 2.5 MG PO TID Sevelamer Carbonate (Renvela) 800 Mg Tab, 1,600 MG PO WM Sodium Polystyrene Sulfonate (Kionex) 15 Gm/60 Ml Teena, 60 ML PO ASDIRECTED PATIENT ONLY TAKES IF DIRECTED BY DOCTOR. Scheduled PRN (Tylenol Pm Extra Strength 500-25 mg) 1 Tab Tab, 2 TAB PO QHS PRN for PAIN Acetaminophen (Apap) 325 Mg Tab, 650 MG PO Q6H PRN for PAIN Acetaminophen/Hydrocodone (Titus 5-325 mg) 1 Tab Tab, 2 TAB PO Q4H PRN for PAIN Allergies Coded Allergies: Vancomycin (Verified Allergy, Intermediate, RASH/ITCHING, 11/10/18) JASON SUN PA-C Nov 12, 2018 20:08
[2018-11-12] MEDS: DOCUSATE SODIUM 100 MG CAP PO SCH (20:48)
[2018-11-12 22:00] VITALS: BP 96/52
[2018-11-12] MEDS: ACETAMINOPHEN TAB 650MG DOSE (2X325MG) PO PRN (22:06)
[2018-11-13] VITALS (9 sets, daily range): BP systolic 80–119; BP diastolic 40–55
[2018-11-13] MEDS: DOCUSATE SODIUM 100 MG CAP PO SCH ×2 (05:16→21:00)
[2018-11-13] MEDS: ACETAMINOPHEN TAB 650MG DOSE (2X325MG) PO PRN ×2 (05:17→13:57)
[2018-11-13] MEDS: diphenhydrAMINE 25 MG CAP PO SCH (09:00)
[2018-11-13] MEDS: VITAMIN D 1,000 INTERNATIONAL UNITS TABLET PO SCH (09:00)
[2018-11-13 09:10] LABS: BASO % 0.1 % (0.0-1.0); EOS # 0.1 10^3/uL (0.0-0.50); EOS % 0.4 % (0.0-3.0); HEMATOCRIT 21.9 % (36.0-47.0); HEMOGLOBIN 7.3 g/dl (12.0-15.5); LYMPH # 0.8 10^3/uL (1.5-4.5); LYMPH % 5.4 % (24.0-44.0); MEAN CORPUSCULAR HEMOGLOBIN 34.6 pg (27.0-33.0); MEAN CORPUSCULAR HGB CONC 33.3 g/dl (32.0-36.5); MEAN CORPUSCULAR VOLUME 103.8 fl (80.0-96.0); MONO # 0.6 10^3/uL (0.0-0.8); MONO % 4.1 % (0.0-5.0); NEUTROPHILS % 88.8 % (36.0-66.0); PLATELET COUNT, AUTOMATED 117 10^3/uL (150-450); RED BLOOD COUNT 2.11 10^6/uL (4.00-5.40); WHITE BLOOD COUNT 14.7 10^3/uL (4.0-10.0)
[2018-11-13 09:56] LABS: ALBUMIN 2.7 GM/DL (3.2-5.2); CALCIUM LEVEL 8.9 MG/DL (8.8-10.2); CREATININE FOR GFR 8.2 MG/DL (0.55-1.30); GLOMERULAR FILTRATION RATE 5.1 (>39); PERCENT SATURATION 15.4 % (13.2-45.0); PHOSPHORUS LEVEL 6.3 MG/DL (2.5-4.9); POTASSIUM SERUM 4.1 MEQ/L (3.5-5.1)
[2018-11-13] MEDS ORDERED: HEPARIN 1,000 UNITS/ML 10ML VIAL (FOR RADIOLOGY& DIALYSIS ONLY) XX ONE (11:00)
--- NOTE | 2018-11-13 11:29 | IPNPDOC ---
Subjective Date Seen The patient was seen on 11/13/18. Subjective Chief Complaint/HPI Pt was seen with Dr Thomas in Dialysis room. C/o constant numbness/tingling, coldness in Lt hand and distal forearm, Received PRBCs x2 for worsening H&H 7.3/21.9 vs 8.3/24.5 per HD RN. Objective Physical Examination General Exam: Positive: Alert, Mild Distress Eye Exam: Positive: PERRLA, Conjunctiva & lids normal, EOMI ENT Exam: Positive: Atraumatic Neck Exam: Positive: Supple, +2 carotid pulse wo bruit Chest Exam: Positive: Clear to auscultation, Normal air movement; Negative: Rales, Rhonchi, Wheezing, Diminished, Other Heart Exam: Positive: Rate Normal, Regular Rhythm, Normal S1, Normal S2; Negative: Gallops, Murmurs, Rubs, Other Abdomen Exam: Positive: Normal bowel sounds, Soft; Negative: Tenderness, Mass, Hernia, Other Extremity Exam: Positive: Tenderness (LUE upper arm); Negative: Clubbing, Cyanosis, Edema, Normal pulses (LUE: radial and ulnar barely palpable cap refill >5 sec), Swelling, Other Neuro Exam: Positive: Normal Speech, Strength at 5/5 X4 ext, Cranial Nerves 3- 12 NL Psych Exam: Positive: Mental status NL, Mood NL, Oriented x 3 Assessment /Plan Assessment 1. LUE hematoma s/p revision and thrombectomy of B-A AVF. 2. Acute blood loss on chronic anemia, H&H 7.3/21.9 vs 8.3/24.5 3. ESRD on HD, HD this am 4. Hypotension BP low 80s/40s Plan/VTE VTE Prophylaxis Ordered?: Yes Plan 1. Continue supportive management 2. Have HD now per nephrology 3. Keep NPO 4. Plan to AVF exploration and hematoma evacuation this afternoon. VS, I&O, 24H, Fishbone Vital Signs/I&O Vital Signs Date Time Temp Pulse Resp B/P (MAP) Pulse Ox O2 Delivery O2 Flow Rate FiO2 11/13/18 06:00 98.7 66 18 80/47 (58) 99 Room Air 11/12/18 14:11 15.0 I&O- Last 24 Hours up to 6 AM 11/13/18 05:59 Intake Total 0 ml Output Total 100 ml Balance -100 ml Laboratory Data 24H LABS Laboratory Tests 2 11/12/18 13:49: Immature Granulocyte % (Auto) 1.4, White Blood Count 23.5H, Red Blood Count 2.43L, Hemoglobin 8.3L, Hematocrit 24.5L, Mean Corpuscular Volume 100.8H, Mean Corpuscular Hemoglobin 34.2H, Mean Corpuscular Hemoglobin Concent 33.9, Red Cell Distribution Width 18.9H, Platelet Count 146L, Neutrophils (%) (Auto) 88.9H, Lymphocytes (%) (Auto) 5.3L, Monocytes (%) (Auto) 4.3, Eosinophils (%) (Auto) 0.0, Basophils (%) (Auto) 0.1, Neutrophils # (Auto) 20.9H, Lymphocytes # (Auto) 1.2L, Monocytes # (Auto) 1.0H, Eosinophils # (Auto) 0.0, Basophils # (Auto) 0.0, Nucleated Red Blood Cells % (auto) 0.0, Prothrombin Time 12.7, Prothromb Time International Ratio 0.95, Anion Gap 13, Glomerular Filtration Rate 5.2L, Calcium Level 8.9, Aspartate Amino Transf (AST/SGOT) 11, Alanine Aminotransferase (ALT/SGPT) 12, Alkaline Phosphatase 82, Total Bilirubin 1.2H, Direct Bilirubin 0.3H, Total Creatine Kinase 138, Creatine Kinase MB 3.0, Creatine Kinase MB Relative Index 1.88, Troponin I < 0.02, UE-Dty-V-Type Natriuretic Peptide 763H, Total Protein 6.6, Albumin 3.1L, Albumin/Globulin Ratio 0.89L, Thyroid Stimulating Hormone (TSH) 2.530 11/13/18 08:09: Immature Granulocyte % (Auto) 1.2, White Blood Count 14.7H, Red Blood Count 2.11L, Hemoglobin 7.3L, Hematocrit 21.9L, Mean Corpuscular Volume 103.8H, Mean Corpuscular Hemoglobin 34.6H, Mean Corpuscular Hemoglobin Concent 33.3, Red Cell Distribution Width 18.9H, Platelet Count 117L, Neutrophils (%) (Auto) 88.8H, Lymphocytes (%) (Auto) 5.4L, Monocytes (%) (Auto) 4.1, Eosinophils (%) (Auto) 0.4, Basophils (%) (Auto) 0.1, Neutrophils # (Auto) 13.0H, Lymphocytes # (Auto) 0.8L, Monocytes # (Auto) 0.6, Eosinophils # (Auto) 0.1, Basophils # (Auto) 0.0, Nucleated Red Blood Cells % (auto) 0.0, Anion Gap 12, Glomerular Filtration Rate 5.1L, Calcium Level 8.9, Albumin 2.7L, Blood Urea Nitrogen 72H, Creatinine 8.20*H, Sodium Level 131L, Potassium Level 4.1, Chloride Level 96L, Carbon Dioxide Level 23, Phosphorus Level 6.3H, Iron Level 38L, Total Iron Binding Capacity 246L, Transferrin % Saturation 15.4, Ferritin 3971H CBC/BMP Laboratory Tests 11/12/18 13:49 Red Blood Count 2.43 L, Mean Corpuscular Volume 100.8 H, Mean Corpuscular Hemoglobin 34.2 H, Mean Corpuscular Hemoglobin Concent 33.9, Red Cell Distribution Width 18.9 H, Neutrophils (%) (Auto) 88.9 H, Lymphocytes (%) (Auto) 5.3 L, Monocytes (%) (Auto) 4.3, Eosinophils (%) (Auto) 0.0, Basophils (%) (Auto) 0.1, Neutrophils # (Auto) 20.9 H, Lymphocytes # (Auto) 1.2 L, Monocytes # (Auto) 1.0 H, Eosinophils # (Auto) 0.0, Basophils # (Auto) 0.0 11/13/18 08:09 Red Blood Count 2.11 L, Mean Corpuscular Volume 103.8 H, Mean Corpuscular Hemoglobin 34.6 H, Mean Corpuscular Hemoglobin Concent 33.3, Red Cell Distribution Width 18.9 H, Neutrophils (%) (Auto) 88.8 H, Lymphocytes (%) (Auto) 5.4 L, Monocytes (%) (Auto) 4.1, Eosinophils (%) (Auto) 0.4, Basophils (%) (Au to) 0.1, Neutrophils # (Auto) 13.0 H, Lymphocytes # (Auto) 0.8 L, Monocytes # (Auto) 0.6, Eosinophils # (Auto) 0.1, Basophils # (Auto) 0.0, Anion Gap 12 JASON SUN PA-C Nov 13, 2018 11:29
[2018-11-13] MEDS ORDERED: ACETAMINOPHEN 325 MG TAB PO PRN (11:30)
[2018-11-13] MEDS: (RENVELA) SEVELAMER **CARBONate** 800 MG TAB PO SCH ×2 (12:30→18:00)
--- NOTE | 2018-11-13 13:52 | CR ---
DATE OF CONSULTATION: 11/13/2018 REQUESTING PHYSICIAN: Dr. Scout Thomas CONSULTING PHYSICIAN: Dr. Nelson REASON FOR CONSULTATION: Management of end stage renal disease and hemodialysis. CHIEF COMPLAINT: Pain and bleeding at the left upper arm AV fistula site. HISTORY OF PRESENT ILLNESS: Yoana Escobedo is a 73-year-old female with past medical history of end stage renal disease on hemodialysis every Friday, Friday, Friday. Multiple other comorbidities as mentioned below. She is having recurrent thrombosis of the left upper arm AV fistula. She currently has a right IJ tunneled hemodialysis catheter which is being used for dialysis. She got a thrombolysis of the left upper arm AV fistula done by vascular surgery on 11/10/2018. She was sent home after the outpatient procedure, however, because of severe pain and swelling and hematoma at the left upper arm AV fistula site she could not go for dialysis on Friday so she presented to the hospital yesterday with severe pain and shortness of breath. She was admitted under the vascular surgery. Nephrology service was called for further evaluation and management of end stage renal disease. I saw and evaluated the patient today morning. Her dialysis had already been arranged. She is being dialyzed at this point. She is still complaining of some shortness of breath. Her hemoglobin was noted to be less than 8. I have arranged two units of PRBC transfusion as well. The patient is nothing by mouth at this point. She is going to the OR in the evening for evacuation of the left arm hematoma. PAST MEDICAL HISTORY: 1. End stage renal disease on hemodialysis. 2. History of multiple myeloma. 3. Status post stem cell transplant in 2006, currently in relapse and getting chemotherapy. 4. Recurrent anemia requiring blood transfusion. 5. Hypothyroidism. 6. History of Crohn disease. 7. Status post colectomy and ileostomy. 8. Chronic hypotension. 9. Hypothyroidism. PAST SURGICAL HISTORY: 1. Status post stem cell transplant in 2006 for multiple myeloma. 2. Status post appendectomy. 3. History of skin cancer removal. 4. Status post colectomy and ileostomy. 5. Status post upper arm AV fistula graft and thrombectomy. 6. Status post PermaCath placement. ALLERGIES: - VANCOMYCIN FAMILY HISTORY: No significant family history of end stage renal disease requiring hemodialysis. SOCIAL HISTORY: She lives at home. She denies any illicit drug abuse, smoking or alcohol abuse. REVIEW OF SYSTEMS: Constitutional: The patient reports feeling weak and tired. Eyes: She denies any blurry vision or double vision. ENT: She denies any dysphagia, odynophagia, ear discharge. Cardiovascular: She denies any chest pain or palpitations. Respiratory: She does report shortness of breath. She denies any cough or phlegm. GI: She denies any nausea, vomiting or abdominal pain. She has history of ileostomy. Genitourinary: She denies any dysuria, hematuria. Musculoskeletal: She reports feeling weak and tired. Otherwise she denies any muscle aches and pains. Hematological: She is currently having a relapse of multiple myeloma requiring multiple transfusions. PROFESSOR OF BIBLICAL STUDIES: She denies any strokes or seizures. Psych: She denies any depression or anxiety. All other review of systems is negative. PHYSICAL EXAMINATION: General: The patient is awake, alert and oriented times three, laying in bed, getting hemodialysis done. Vital Signs: Temperature is 98.7 degrees Fahrenheit. Blood pressure 80/47. Pulse 66. Respiratory rate 18. Saturating 99% on room air. Intake and Output: Urine output recorded as only 50 mL. Head and Neck Exam: Extraocular muscles intact. Pupils equally round and reactive to light. Tongue and conjunctival pallor was noted. Neck: Supple. There is no jugular venous distention. She has a right IJ tunneled hemodialysis catheter. Cardiovascular: S1, S2, regular rate. No murmur, rub or gallop. Respiratory: Chest is clear to auscultation bilaterally. Bilateral equal air entry. No rales or rhonchi. Abdomen: Soft. Positive bowel sounds. Right lower quadrant ileostomy was noted. Genitourinary: Bladder is nonpalpable. Musculoskeletal: No clubbing or cyanosis. Pulses are 2+. No edema of the bilateral lower extremities. PROFESSOR OF BIBLICAL STUDIES: No focal deficit. Power is 5/5 in all extremities. Psych: Normal mood and affect. Skin: No rashes or ulcers. LAB REVIEW: CBC showed a WBC of 14.7, hemoglobin 7.3, platelets 117. BMP showed sodium 131, potassium 4.1, chloride 96, bicarbonate 23, BUN 72, creatinine 8.2, calcium 8.9, phosphorus 6.3, transferrin saturation 15.4, ferritin 3971, albumin 2.7. IMAGING: Vascular ultrasound of the left upper extremity was done which showed no evidence of venous thrombosis and a patent fistula. HOME MEDICATIONS: - Tylenol as needed - Charlotte 2 tablets every 4 hours as needed - Vitamin D 2000 units daily - dexamethasone 4 mg tablet on day 1, 8, 15 and 22 of cycle - Benadryl 25 mg three times a week before dialysis - Ensure one can by mouth three times a day - NINLARO 3 mg on day 1, 8, 15 and 22 of the cycle - levothyroxine 50 mcg by mouth daily - midodrine 2.5 mg by mouth three times a day - Renvela 1.6 grams by mouth with meals CURRENT INPATIENT MEDICATIONS: Patient's medications were all reviewed by me. Her home medications have been restarted. No other change in the medications today as compared with yesterday. ASSESSMENT: 73-year-old female with end stage renal disease on hemodialysis every Friday, Friday, Friday, multiple myeloma in relapse, admitted at this time with pain and hematoma at the left upper arm AV fistula site. PLAN: 1. End stage renal disease on hemodialysis. The patient's regular dialysis days are Friday, Friday and Friday. She missed her dialysis on Friday because of pain. She is being dialyzed today according to her regular schedule. 500 mL of fluid will be removed because patient is getting blood. 2. Anemia secondary to end stage renal disease and multiple myeloma. The patient's hemoglobin has dropped to 7.3. Part of it is secondary to hematoma at the fistula site. She is going to get 2 units of packed red blood cell (PRBC) transfusions. 3. Hematoma at the left upper arm AV fistula site. The patient just got the thrombolysis done two days ago. She is admitted under vascular surgery. She is going for the procedure after dialysis today. 4. Chronic kidney disease mineral bone disease. Continue home dose of Renvela 1.6 grams with meals after patient starts eating. 5. Multiple myeloma in relapse. Continue home dose of NINLARO and dexamethasone as per her schedule. She is due for her next dose on Friday. 6. Hypothyroidism. Continue home dose of levothyroxine 50 mcg by mouth daily. 7. Chronic hypotension. Continue current dose of midodrine 2.5 mg by mouth three times a day and we do not remove any fluid with dialysis. She is usually maintained during hemodialysis. 8. Protein calorie malnutrition. Her albumin is low. Patient gets Nepro cans three times a day. When she starts eating, I shall restart her on Nepro. Thank you for involving me in the care of this patient. I shall be happy to follow the patient along with you tomorrow morning.
[2018-11-13] MEDS: MIDODRINE 2.5 MG TAB PO SCH ×2 (13:53→22:32)
[2018-11-13] MEDS: LEVOTHYROXINE 50MCG TABLET (0.05MG) PO SCH (13:53)
--- NOTE | 2018-11-13 13:55 | ECGEPIP ---
Stationary ECG Study [facility] - ED Test Date: 2018-11-12 Pat Name: AD JOHNSTON Department: Room: - Gender: F Entry Manager: ct : 1945 Requested By: KYLE Aquino Order Number: [id number] Reading MD: Peyton Vickers Measurements Intervals [place] Rate: 84 P: 73 KS: 124 QRS: 72 QRSD: 91 T: 75 QT: 388 QTc: 460 Interpretive Statements SINUS RHYTHM MODERATE ST DEPRESSION DECREASED RATE 10/28/18 Electronically Signed On 11-13-2018 13:55:22 EST by Peyton Vickers
[2018-11-13] MEDS: PANTOPRAZOLE 40MG INJ (PROTONIX) (C9113) IV SCH (13:56)
[2018-11-13] MEDS ORDERED: BUPIVACAINE HCL 0.5% 30 ML VIAL As Ordered ONE (18:59)
[2018-11-13] MEDS ORDERED: LIDOCAINE 1% SDV INJ 30 ML VIAL As Ordered ONE (18:59)
[2018-11-13] MEDS ORDERED: NORCO, ANEXSIA 5/325MG TABLET (HYDROcodone/ACETAMINOPHEN) PO PRN (20:00)
[2018-11-13] MEDS ORDERED: NS 1,000 ML IV SCH (20:00)
[2018-11-13] MEDS ORDERED: ONDANSETRON 4MG/2ML VIAL (J2405) IV PRN (20:00)
[2018-11-13] MEDS ORDERED: NORCO, ANEXSIA 5/325MG TABLET (HYDROcodone/ACETAMINOPHEN) As Ordered ONE (20:09)
[2018-11-13] MEDS ORDERED: fentaNYL 100 MCG/2 ML INJECTION (J3010) As Ordered ONE ×2 (20:09→21:00)
[2018-11-13] MEDS ORDERED: ONDANSETRON 4MG/2ML VIAL (J2405) As Ordered ONE ×2 (20:09→21:00)
[2018-11-13] MEDS: fentaNYL 100 MCG/2 ML INJECTION (J3010) IV PRN ×3 (20:16→20:30)
[2018-11-13] MEDS ORDERED: LIDOCAINE 2% INJ 100 MG/5 ML SDV (FOR ANES.) As Ordered ONE (21:00)
[2018-11-13] MEDS ORDERED: PROPOFOL 200 MG/20 ML VIAL As Ordered ONE (21:00)
[2018-11-13] MEDS ORDERED: MIDAZOLAM INJ 2 MG/2 ML VIAL (J2250) As Ordered ONE (21:00)
[2018-11-13] MEDS ORDERED: NS 500 ML IV ONE (22:45)
[2018-11-14] VITALS (9 sets, daily range): BP systolic 78–115; BP diastolic 38–58
[2018-11-14] MEDS: LEVOTHYROXINE 50MCG TABLET (0.05MG) PO SCH (05:36)
[2018-11-14] MEDS: NORCO, ANEXSIA 5/325MG TABLET (HYDROcodone/ACETAMINOPHEN) PO PRN ×3 (05:36→19:17)
[2018-11-14] MEDS: (RENVELA) SEVELAMER **CARBONate** 800 MG TAB PO SCH ×3 (08:49→17:02)
[2018-11-14] MEDS: PANTOPRAZOLE 40MG INJ (PROTONIX) (C9113) IV SCH (08:49)
[2018-11-14] MEDS: DOCUSATE SODIUM 100 MG CAP PO SCH ×3 (08:49→19:17)
[2018-11-14] MEDS: MIDODRINE 2.5 MG TAB PO SCH ×3 (08:49→17:02)
[2018-11-14] MEDS: VITAMIN D 1,000 INTERNATIONAL UNITS TABLET PO SCH (08:49)
[2018-11-14 09:47] LABS: BASO % 0.2 % (0.0-1.0); EOS # 0.1 10^3/uL (0.0-0.50); EOS % 0.5 % (0.0-3.0); LYMPH # 0.6 10^3/uL (1.5-4.5); LYMPH % 5.3 % (24.0-44.0); MEAN CORPUSCULAR HEMOGLOBIN 33.9 pg (27.0-33.0); MEAN CORPUSCULAR HGB CONC 34.3 g/dl (32.0-36.5); MEAN CORPUSCULAR VOLUME 98.7 fl (80.0-96.0); MONO # 0.4 10^3/uL (0.0-0.8); MONO % 4.2 % (0.0-5.0); NEUTROPHILS # 9.2 10^3/uL (1.8-7.7); NEUTROPHILS % 88.8 % (36.0-66.0); RED BLOOD COUNT 3.04 10^6/uL (4.00-5.40); WHITE BLOOD COUNT 10.4 10^3/uL (4.0-10.0)
[2018-11-14 09:48] LABS: HEMOGLOBIN 10.3 g/dl (12.0-15.5); PLATELET COUNT, AUTOMATED 99 10^3/uL (150-450)
[2018-11-14 09:59] LABS: ALBUMIN 2.5 GM/DL (3.2-5.2); CALCIUM LEVEL 8.3 MG/DL (8.8-10.2); CREATININE FOR GFR 4.5 MG/DL (0.55-1.30); GLOMERULAR FILTRATION RATE 10.3 (>39); PHOSPHORUS LEVEL 4.2 MG/DL (2.5-4.9); POTASSIUM SERUM 3.6 MEQ/L (3.5-5.1)
--- NOTE | 2018-11-14 15:53 | IPN ---
DATE: 11/14/2018 SUBJECTIVE: Patient was seen and examined at the bedside today morning. She is afebrile, hemodynamically stable. She got the left upper arm arteriovenous (AV) fistula evacuation of the hematoma done yesterday. She tolerated the hemodialysis procedure well. She reports mild pain in the AV fistula site. Otherwise, she denies any active complaints. OBJECTIVE: VITAL SIGNS: Temperature 97.7 degrees Fahrenheit, blood pressure 78/38, pulse 65, respiratory rate 16, saturating 98% on room air. Intake and output: Ultrafiltration with hemodialysis was 500 mL, blood loss was also 500 mL. Weight in the bed scale is 51.2 kg. PHYSICAL EXAMINATION: GENERAL: Patient is awake, alert, oriented times three, laying in bed, no apparent distress. HEAD and NECK: Extraocular muscles intact. Pupils equally round and reactive to light. Mucous membranes are moist. Neck is supple. She has a right internal jugular (IJ) tunneled hemodialysis catheter. CARDIOVASCULAR: S1, S2, regular rate. No murmur, rub, or gallop. RESPIRATORY: Chest is clear to auscultation bilaterally. Bilateral equal air entry. No rales or rhonchi. ABDOMEN: Soft, positive bowel sounds. Right lower quadrant ileostomy was noted. MUSCULOSKELETAL: No clubbing or cyanosis. Left upper arm fistula site is covered with a dressing, however I can hear the bruit through the dressing. CENTRAL NERVOUS SYSTEM (PHLEBOTOMY MANAGER): No focal deficit. Power is 5/5 in all extremities. LABORATORY REVIEW: CBC showed WBC 10.4, hemoglobin 10.3, platelets 99. BMP showed sodium 134, potassium 3.6, chloride 97, bicarbonate 26, BUN 30, creatinine 4.5. CURRENT INPATIENT MEDICATIONS: Patient's medications were all reviewed by me. There is no change in the medications today as compared with yesterday. She was given normal saline bolus 500 mL overnight. ASSESSMENT AND PLAN: 1. End-stage renal disease on hemodialysis. Patient was dialyzed yesterday. She tolerated the hemodialysis procedure well. Next hemodialysis session will be on Friday. 2. Anemia secondary to end-stage renal disease, acute blood loss, and multiple myeloma. Hemoglobin is 10.3 which is optimal. Patient was given two units of packed red blood cell (PRBC) transfusion yesterday during hemodialysis. Continue to monitor for now. 3. Status post evacuation of hematoma at the left upper arm arteriovenous (AV) fistula site. It is covered with dressing and she has a drain at the surgical wound site as well. Rest of the management is as per surgical service. Pain is optimized. 4. Multiple myeloma in relapse. Continue current dose of dexamethasone and NINLARO as per schedule. She is due for dose tomorrow. 5. Chronic hypotension. Blood pressure is optimal. Continue current dose of midodrine 2.5 mg by mouth three times a day. 6. Protein calorie malnutrition. I am going to start the patient on Nepro one can three times a day.
[2018-11-15] MEDS: NORCO, ANEXSIA 5/325MG TABLET (HYDROcodone/ACETAMINOPHEN) PO PRN ×2 (05:37→20:41)
[2018-11-15] MEDS: LEVOTHYROXINE 50MCG TABLET (0.05MG) PO SCH (05:37)
[2018-11-15 06:00] VITALS: BP 119/55
[2018-11-15 07:30] VITALS: BP 124/62
[2018-11-15] MEDS: PANTOPRAZOLE 40MG INJ (PROTONIX) (C9113) IV SCH (08:27)
[2018-11-15] MEDS: VITAMIN D 1,000 INTERNATIONAL UNITS TABLET PO SCH (08:27)
[2018-11-15] MEDS: MIDODRINE 2.5 MG TAB PO SCH ×3 (08:27→17:12)
[2018-11-15] MEDS: (RENVELA) SEVELAMER **CARBONate** 800 MG TAB PO SCH ×3 (08:27→17:12)
[2018-11-15] MEDS: DOCUSATE SODIUM 100 MG CAP PO SCH ×2 (08:27→20:17)
[2018-11-15 14:00] VITALS: BP 104/55
[2018-11-15 18:00] VITALS: BP 133/63
[2018-11-15 22:00] VITALS: BP 99/54
[2018-11-16] VITALS (11 sets, daily range): BP systolic 85–123; BP diastolic 48–54
[2018-11-16] MEDS: PANTOPRAZOLE 40MG INJ (PROTONIX) (C9113) IV SCH (05:51)
[2018-11-16] MEDS: LEVOTHYROXINE 50MCG TABLET (0.05MG) PO SCH (05:52)
[2018-11-16] MEDS: MIDODRINE 2.5 MG TAB PO SCH ×3 (05:52→16:03)
[2018-11-16] MEDS: diphenhydrAMINE 25 MG CAP PO SCH (05:52)
[2018-11-16] MEDS: VITAMIN D 1,000 INTERNATIONAL UNITS TABLET PO SCH (05:52)
[2018-11-16] MEDS: (RENVELA) SEVELAMER **CARBONate** 800 MG TAB PO SCH ×3 (05:54→17:37)
[2018-11-16] MEDS: DOCUSATE SODIUM 100 MG CAP PO SCH ×2 (05:58→21:00)
[2018-11-16 06:17] LABS: BASO % 0.1 % (0.0-1.0); HEMATOCRIT 29.1 % (36.0-47.0); HEMOGLOBIN 9.9 g/dl (12.0-15.5); LYMPH # 0.5 10^3/uL (1.5-4.5); LYMPH % 4.5 % (24.0-44.0); MEAN CORPUSCULAR HEMOGLOBIN 33.2 pg (27.0-33.0); MEAN CORPUSCULAR VOLUME 97.7 fl (80.0-96.0); MONO # 0.4 10^3/uL (0.0-0.8); MONO % 3.2 % (0.0-5.0); NEUTROPHILS # 10.7 10^3/uL (1.8-7.7); NEUTROPHILS % 90.4 % (36.0-66.0); PLATELET COUNT, AUTOMATED 114 10^3/uL (150-450); RED BLOOD COUNT 2.98 10^6/uL (4.00-5.40); WHITE BLOOD COUNT 11.9 10^3/uL (4.0-10.0)
[2018-11-16 06:41] LABS: ALBUMIN 2.3 GM/DL (3.2-5.2); CREATININE FOR GFR 5.86 MG/DL (0.55-1.30); GLOMERULAR FILTRATION RATE 7.6 (>39); PHOSPHORUS LEVEL 4.7 MG/DL (2.5-4.9); POTASSIUM SERUM 4.6 MEQ/L (3.5-5.1)
--- NOTE | 2018-11-16 09:21 | IPN ---
DATE: 11/15/2018 SUBJECTIVE: Patient was seen and examined at the bedside this morning. Patient reports pain and swelling in the left elbow and left arm. Otherwise, shed denies any active complaints. She is hemodynamically stable and she denies any fevers or chills. OBJECTIVE: VITAL SIGNS: Temperature is 98.4 degrees Fahrenheit, blood pressure 124/62, pulse 75, respiratory rate of 16 saturating 98% in room air. Intake and output: Urine output is not recorded. Weight on the bed scale was 51.2 kg yesterday. PHYSICAL EXAMINATION: GENERAL: Patient is awake, alert, oriented times three laying in bed. Mild painful distress. HEAD/NECK EXAM: Extraocular muscles intact. Pupils equal and reactive to light. Mucous membranes are moist. Neck is supple. A right internal jugular (IJ) tunnel hemodialysis catheter was noted. CARDIOVASCULAR: S1, S2, regular rate. No murmur, rub or gallop. RESPIRATORY: Chest is clear to auscultation bilaterally. Bilaterally good air entry. No rales or rhonchi. ABDOMEN: Soft, positive bowel sounds. Right lower quadrant ileostomy was noted. MUSCULOSKELETAL: No clubbing or cyanosis. Left upper arm arteriovenous fistula site is covered with a dressing. Left forearm has swelling and tenderness and decrease range of motion at the left elbow. NOTE TAKER: No focal deficit. Power is 5/5 in all extremities. LAB REVIEW: CBC showed a WBC of 10.4, hemoglobin 10.3 from yesterday's labs. There is no BMP available today. CURRENT INPATIENT MEDICATIONS: Patient's medications are all reviewed by me. There is no change in the medications today as compared with yesterday. ASSESSMENT/PLAN: 1. End-stage renal disease on hemodialysis: Patient regular dialysis days are Friday, Friday and Fridays. She will be dialyzed tomorrow as per her regular schedule. 2. Anemia secondary to end-stage renal disease and blood loss and multiple myeloma. Hemoglobin 10.3, which is optimal. CBC will be checked tomorrow. If hemoglobin is 8 or below, then she will be given another unit of packed red blood cells transfusion (PRBC). 3. Multiple myeloma in relapse: Patient gets dexamethasone and NINLARO. She is going to get the dose today. The rest of the management as per hematology as outpatient. 4. Chronic hypotension: Blood pressure is optimal. Continue current dose of midodrine 2.5 mg by mouth three times a day. 5. Status pos evacuation of hematoma, left upper arm arteriovenous fistula site. Patient is complaining of pain the left elbow. She was advised to keep her elbow mobile. The rest of the management is per surgical service.
[2018-11-16] MEDS ORDERED: HEPARIN 1,000 UNITS/ML 10ML VIAL (FOR RADIOLOGY& DIALYSIS ONLY) XX ONE (11:00)
[2018-11-16] MEDS: PIPERACILLIN/TAZOBACTAM SOD 2.25 GM in D5W MINI-BAG PLUS 50 ML IV SCH (12:37)
--- NOTE | 2018-11-16 14:29 | IPN ---
DATE OF SERVICE: 11/16/2018 SUBJECTIVE: The patient was seen and examined at the bedside today morning. She is afebrile and hemodynamically stable. She is being dialyzed at this point and she is tolerating the hemodialysis procedure well. OBJECTIVE: Vital Signs: Temperature 96.5 degrees Fahrenheit. Blood pressure 133/51. Pulse 67. Respiratory rate 18. Saturating 97% on room air. Intake and Output: Urine output recorded as 200 mL. Weight on the bed scale is 49.1 kg. PHYSICAL EXAM: General: Patient is awake, alert and oriented times three, laying in bed getting hemodialysis done, in no apparent distress. Head and Neck Exam: Extraocular muscles intact. Pupils equally round and reactive to light. Mucous membranes are moist. Neck is supple. She has a right internal jugular (IJ) tunneled hemodialysis catheter which is being used for dialysis. Cardiovascular: S1 and S2. Regular rate. No murmur, rub or gallop. Respiratory: Chest is clear to auscultation bilaterally. Bilateral equal air entry. No rales or rhonchi. Abdomen: Soft. Positive bowel sounds. Right lower quadrant ileostomy was noted. Musculoskeletal: No clubbing or cyanosis. Left upper AV fistula site is covered with a dressing with 1+ edema of the left upper arm. Central Nervous System: No focal deficit. Power is 5/5 in all extremities. LAB REVIEW: CBC showed a WBC of 11.9, hemoglobin 9.9, and platelets are 114. BMP showed sodium 131, potassium 4.6, chloride 95, bicarbonate 22, BUN 49, creatinine 1.8, albumin 2.3. MICROBIOLOGY: Wound culture is growing Clostridium perfringens. CURRENT INPATIENT MEDICATIONS: Patient's medications were all reviewed by me. She is currently not on any antibiotics at this point. ASSESSMENT AND PLAN: 1. End stage renal disease on hemodialysis. Patient's regular dialysis days are Friday, Friday, Friday. She is being dialyzed according to her regular schedule. Ultrafiltration goal will be 1 liter as tolerated by blood pressure. 2. Anemia secondary to end stage renal disease, blood loss and multiple myeloma. I am going to start her on Aranesp 100 mcg daily. She was also given blood transfusion. Hemoglobin is optimal at this point. 3. Chronic hypotension. Continue current dose of midodrine 2.5 mg by mouth three times a day. 4. Left upper arm AV fistula hematoma and infection. Cultures are growing Clostridium perfringens, which is an anaerobic organism. I am going to start the patient on Zosyn. The rest of the management is as per vascular surgery. 5. Multiple myeloma in relapse. Continue home dose of NINLARO and dexamethasone. The rest of the management as per hematology/oncology as outpatient.
[2018-11-16] MEDS ORDERED: MIDAZOLAM INJ 2 MG/2 ML VIAL (J2250) As Ordered ONE (18:25)
[2018-11-16] MEDS ORDERED: fentaNYL 100 MCG/2 ML INJECTION (J3010) As Ordered ONE (18:25)
[2018-11-16] MEDS ORDERED: LIDOCAINE 2% INJ 100 MG/5 ML SDV (FOR ANES.) As Ordered ONE (18:26)
[2018-11-16] MEDS ORDERED: PROPOFOL 200 MG/20 ML VIAL As Ordered ONE (18:26)
[2018-11-16] MEDS ORDERED: ROCURONIUM BROMIDE 50 MG/5 ML VIAL As Ordered ONE (18:26)
[2018-11-16] MEDS ORDERED: SUCCINYLCHOLINE 100 MG/5 ML SYRINGE (J0330) As Ordered ONE (18:26)
[2018-11-16] MEDS ORDERED: PHENYLephrine HCL 500 MCG/5 ML (100MCG/ML) SYRINGE (J2370) As Ordered ONE (18:42)
[2018-11-16] MEDS ORDERED: ePHEDrine SULFATE 25 MG/5 ML(5MG/ML) SYRINGE As Ordered ONE (18:42)
--- NOTE | 2018-11-16 19:12 | IPNPDOC ---
Subjective Date Seen The patient was seen on 11/16/18. Subjective Chief Complaint/HPI C/o LUE swelling and numbness /tingling in Lt hand, Lt facial swelling this morning and was self limited. Objective Physical Examination General Exam: Positive: Alert, Mild Distress Eye Exam: Positive: PERRLA, Conjunctiva & lids normal, EOMI; Negative: Ptosis, Other Eye Symptoms ENT Exam: Positive: Atraumatic Neck Exam: Positive: Supple, +2 carotid pulse wo bruit Chest Exam: Positive: Clear to auscultation, Normal air movement; Negative: Rales, Rhonchi, Wheezing, Diminished, Other Heart Exam: Positive: Rate Normal, Regular Rhythm, Normal S1, Normal S2; Negative: Gallops, Murmurs, Rubs, Other Abdomen Exam: Positive: Normal bowel sounds, Soft; Negative: Tenderness, Mass, Hernia, Other Extremity Exam: Positive: Edema (2+ pitting edema in LUE below dressing. dressing seemed dry from appearance.), Normal pulses (LUE: radial and ulnar barely palpable cap refill >5 sec), Tenderness (LUE upper arm); Negative: Clubbing, Cyanosis, Swelling, Other Neuro Exam: Positive: Normal Speech, Strength at 5/5 X4 ext, Cranial Nerves 3- 12 NL Psych Exam: Positive: Mental status NL, Mood NL, Oriented x 3 Assessment /Plan Assessment 1. POD #3 s/p AVF hematoma evacuation and wound irrigation. Wound Cx positive for Clostridium Perfringens on Zosyn 2.25g IV q12 hrs 2. ESRD on HD. 3. Chronic anemia Plan/VTE VTE Prophylaxis Ordered?: Yes Plan Continue current management. Keep dressing in place, DO NOT change. Will check the wound with Dr Thomas this pm. VS, I&O, 24H, Braydenbone Vital Signs/I&O Vital Signs Date Time Temp Pulse Resp B/P (MAP) Pulse Ox O2 Delivery O2 Flow Rate FiO2 11/16/18 14:00 97.6 70 18 107/53 (71) 96 Room Air 11/12/18 14:11 15.0 I&O- Last 24 Hours up to 6 AM 11/16/18 05:59 Intake Total 1800 ml Output Total 1440 ml Balance 360 ml Laboratory Data 24H LABS Laboratory Tests 2 11/16/18 05:29: Immature Granulocyte % (Auto) 1.8, White Blood Count 11.9H, Red Blood Count 2.98L, Hemoglobin 9.9L, Hematocrit 29.1L, Mean Corpuscular Volume 97.7H, Mean Corpuscular Hemoglobin 33.2H, Mean Corpuscular Hemoglobin Concent 34.0, Red Cell Distribution Width 17.7H, Platelet Count 114L, Neutrophils (%) (Auto) 90.4H, Lymphocytes (%) (Auto) 4.5L, Monocytes (%) (Auto) 3.2, Eosinophils (%) (Auto) 0.0, Basophils (%) (Auto) 0.1, Neutrophils # (Auto) 10.7H, Lymphocytes # (Auto) 0.5L, Monocytes # (Auto) 0.4, Eosinophils # (Auto) 0.0, Basophils # (Auto) 0.0, Nucleated Red Blood Cells % (auto) 0.0, Blood Urea Nitrogen 49#H, Creatinine 5.86H, Sodium Level 131L, Potassium Level 4.6#, Chloride Level 95L, Carbon Dioxide Level 22, Anion Gap 14, Glomerular Filtration Rate 7.6L, Calcium Level 9.0, Phosphorus Level 4.7, Albumin 2.3L CBC/BMP Laboratory Tests 11/16/18 05:29 Red Blood Count 2.98 L, Mean Corpuscular Volume 97.7 H, Mean Corpuscular Hemoglobin 33.2 H, Mean Corpuscular Hemoglobin Concent 34.0, Red Cell Distribution Width 17.7 H, Neutrophils (%) (Auto) 90.4 H, Lymphocytes (%) (Auto) 4.5 L, Monocytes (%) (Auto) 3.2, Eosinophils (%) (Auto) 0.0, Basophils (%) (Auto) 0.1, Neutrophils # (Auto) 10.7 H, Lymphocytes # (Auto) 0.5 L, Monocytes # (Auto) 0.4, Eosinophils # (Auto) 0.0, Basophils # (Auto) 0.0, Anion Gap 14 Microbiology Microbiology 11/13/18 Gram Stain - Final, Complete 11/13/18 Wound Culture - Final, Complete 11/13/18 Anaerobic Culture - Final, Complete Clostridium Perfringens JASON SUN PA-C Nov 16, 2018 19:12
[2018-11-16] MEDS ORDERED: fentaNYL 100 MCG/2 ML INJECTION (J3010) IV PRN (19:30)
[2018-11-16] MEDS ORDERED: ONDANSETRON 4MG/2ML VIAL (J2405) IV PRN (19:30)
[2018-11-16] MEDS ORDERED: NS 1,000 ML IV SCH (19:30)
[2018-11-16] MEDS ORDERED: PHENYLephrine HCL 500 MCG/5 ML (100MCG/ML) SYRINGE (J2370) IV SCH (19:30)
[2018-11-16] MEDS: NORCO, ANEXSIA 5/325MG TABLET (HYDROcodone/ACETAMINOPHEN) PO PRN (22:04)
[2018-11-17] VITALS (10 sets, daily range): BP systolic 90–151; BP diastolic 43–69
[2018-11-17] MEDS: PIPERACILLIN/TAZOBACTAM SOD 2.25 GM in D5W MINI-BAG PLUS 50 ML IV SCH ×2 (00:17→13:09)
[2018-11-17] MEDS: LEVOTHYROXINE 50MCG TABLET (0.05MG) PO SCH (04:38)
[2018-11-17] MEDS: ACETAMINOPHEN TAB 650MG DOSE (2X325MG) PO PRN ×2 (04:39→20:10)
[2018-11-17] MEDS ORDERED: PHENYLEPHRINE INJ 10MG/ML VIAL (J2370) ONE (05:20)
[2018-11-17 06:35] LABS: HEMATOCRIT 26.5 % (36.0-47.0); MEAN CORPUSCULAR HEMOGLOBIN 32.5 pg (27.0-33.0); MEAN CORPUSCULAR VOLUME 95.7 fl (80.0-96.0); RED BLOOD COUNT 2.77 10^6/uL (4.00-5.40); WHITE BLOOD COUNT 8.5 10^3/uL (4.0-10.0)
[2018-11-17 06:41] LABS: PLATELET COUNT, AUTOMATED 80 10^3/uL (150-450)
[2018-11-17] MEDS: (RENVELA) SEVELAMER **CARBONate** 800 MG TAB PO SCH ×3 (08:11→17:49)
[2018-11-17] MEDS: PANTOPRAZOLE 40MG INJ (PROTONIX) (C9113) IV SCH (08:11)
[2018-11-17] MEDS: MIDODRINE 2.5 MG TAB PO SCH ×3 (08:12→15:19)
[2018-11-17] MEDS: DOCUSATE SODIUM 100 MG CAP PO SCH ×2 (08:12→20:10)
[2018-11-17] MEDS: VITAMIN D 1,000 INTERNATIONAL UNITS TABLET PO SCH (08:12)
[2018-11-17 09:27] LABS: ABG BASE EXCESS 0.3 (-2.0-2.0); ABG O2 SATURATION 99.1 % (95.0-99.0); ABG PARTIAL PRESSURE O2 136.4 mmHg (75.0-100.0); ABG STANDARD HCO3 24.8 MEQ/L (22.0-26.0); ABG TOTAL CO2 20.6 MEQ/L (23.0-31.0)
[2018-11-17 09:30] LABS: ABG pH (ARTERIAL) 7.626 UNITS (7.350-7.450)
[2018-11-17 09:31] LABS: ABG PARTIAL PRESSURE CO2 19.6 mmHg (35.0-45.0)
--- NOTE | 2018-11-17 09:36 | REP ---
Portable chest x-ray: Single view. History: Shortness of breath. Comparison chest x-ray November 12, 2018. Findings: There is a right-sided, tunneled central venous catheter. Right axillary clips are noted. There is a vascular graft visible in the left axilla and surgical skin mara are seen in the left lower forearm. The patient is status post vertebroplasty in the lower thoracic and upper lumbar spine. The lungs are well inflated and remain clear. Pleural angles are sharp. Heart size is normal. Impression: No acute cardiopulmonary disease. Electronically Signed by Dejon Daniel MD 11/17/2018 10:46 A
[2018-11-17] MEDS ORDERED: ALPRAZolam 0.25 MG TAB PO ONE (09:45)
[2018-11-17 10:05] LABS: HEMATOCRIT 30.1 % (36.0-47.0); HEMOGLOBIN 10.1 g/dl (12.0-15.5)
[2018-11-17 10:27] LABS: BLOOD UREA NITROGEN 38 MG/DL (7-18); CALCIUM LEVEL 8.3 MG/DL (8.8-10.2); CARBON DIOXIDE LEVEL 22 MEQ/L (21-32); CHLORIDE LEVEL 102 MEQ/L (98-107); CK-MB VALUE MASS < 1.0 NG/ML (<3.6); CPK CREATINE PHOSPHOKINASE 30 U/L (26-192); CREATININE FOR GFR 4.03 MG/DL (0.55-1.30); GLOMERULAR FILTRATION RATE 11.6 (>39); GLUCOSE, FASTING 102 MG/DL (70-100); MB/CK RELATIVE INDEX 3.33 (< OR =4); POTASSIUM SERUM 3.8 MEQ/L (3.5-5.1); SODIUM LEVEL 136 MEQ/L (136-145); TROPONIN I < 0.02 NG/ML (< 0.10)
[2018-11-17] MEDS ORDERED: NS 500 ML IV ONE (11:00)
[2018-11-17] MEDS ORDERED: ISOVUE-370 76% 100ML VIAL (Q9967) As Ordered ONE (11:18)
--- NOTE | 2018-11-17 12:06 | REP ---
CT CHEST WITH IV CONTRAST: HISTORY: Sudden shortness of breath. Comparison chest x-ray November 12, 2018. Comparison chest CT study October 28, 2018. CT CONTRAST DOSE: 75 mL of intravenous Isovue 370. CT FINDINGS: There is good opacification of the pulmonary arterial tree and there is no CT evidence of pulmonary embolism. Thoracic aorta enhances homogeneously without evidence of dissection. There is no evidence of aortic aneurysm. No hilar or mediastinal mass or adenopathy is observed. No adrenal lesion is seen. The patient's kidneys are markedly atrophic. No pleural effusion is seen. No pericardial effusion is noted. Lung window settings show no evidence of infiltrate. There is a very small sliver of pleural fluid bilaterally, left more so than right. No bony destructive lesion is seen. There is diffuse osteoporosis. The patient is status post vertebroplasty in the lower thoracic upper lumbar spine. Incidental note is made of what appears to be thrombotic occlusion of the subclavian vein on the right with collateral veins including intercostal collateral veins opacified by contrast injection. A tunneled catheter is seen in place via the right internal jugular vein. The SVC and internal jugular vein appear patent. 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 Right IJ tunnel catheter. SVC patent. No CT evidence of pulmonary embolus. No infiltrate is seen. Tiny bilateral pleural effusions. Electronically Signed by Dejon Daniel MD 11/17/2018 06:03 P
[2018-11-17] MEDS: LINEZOLID 600 MG in APPROPRIATE DILUENT 1 EA IV SCH ×2 (13:08→23:12)
--- NOTE | 2018-11-17 20:53 | IPNPDOC ---
Subjective Date Seen The patient was seen on 11/17/18. Subjective Chief Complaint/HPI C/o SOB, denies chest pain, fever, chills, LUE edema resolved after emergent AVF exploration for acute bleeding last night. Objective Physical Examination General Exam: Positive: Alert, Mild Distress Eye Exam: Positive: PERRLA, Conjunctiva & lids normal, EOMI ENT Exam: Positive: Atraumatic Neck Exam: Positive: Supple, +2 carotid pulse wo bruit Chest Exam: Positive: Clear to auscultation, Normal air movement; Negative: Rales, Rhonchi, Wheezing, Diminished, Other Heart Exam: Positive: Rate Normal, Regular Rhythm, Normal S1, Normal S2; Negative: Gallops, Murmurs, Rubs, Other Abdomen Exam: Positive: Normal bowel sounds, Soft; Negative: Tenderness, Mass, Hernia, Other Extremity Exam: Positive: Other (previous edema d/t pressure dressing resolved, no paresthesia, cap refill wnl.); Negative: Clubbing, Cyanosis Neuro Exam: Positive: Normal Speech, Strength at 5/5 X4 ext, Cranial Nerves 3- 12 NL Psych Exam: Positive: Mental status NL, Mood NL, Oriented x 3 Assessment /Plan Assessment 1. POD #1 s/p Lt AVF revision bleed /hematoma evacuation, graft angioplasty and wound irrigation. LUE edema resolved, distal pulse palpable PANTERA drain 30 cc serosanguineous since after surgery 2. 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 Right IJ tunnel catheter. SVC patent. No CT evidence of pulmonary embolus. No infiltrate is seen. 3. 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 4. ESRD on HD MWF 5. Acute on chronic anemia d/t ESRD, multiple myeloma Plan/VTE VTE Prophylaxis Ordered?: Yes Plan 1. Continue current management per medicine. 2. Continue Midodrine 2.5 mg tid for chronic hypotension per medicine 3. Continue Zosyn 2.25g IV q12 hrs per medicine. 4. Continue monitoring VS and SOB. 5. Keep LUE dressing unchanged. VS, I&O, 24H, Fishbone Vital Signs/I&O Vital Signs Date Time Temp Pulse Resp B/P (MAP) Pulse Ox O2 Delivery O2 Flow Rate FiO2 11/17/18 18:35 2.0 11/17/18 18:00 98.7 73 20 105/46 (65) 100 Nasal Cannula I&O- Last 24 Hours up to 6 AM 11/17/18 06:00 Intake Total 2777 ml Output Total 1665 ml Balance 1112 ml Laboratory Data 24H LABS Laboratory Tests 2 11/17/18 06:13: Nucleated Red Blood Cells % (auto) 0.0, Immature Platelet Fraction 5.5 11/17/18 09:08: Blood Gas Bicarbonate Standard 24.8, Arterial Blood pH 7.626*H, Arterial Blood Partial Pressure CO2 19.6*L, Arterial Blood Partial Pressure O2 136.4H, Arterial Blood Total CO2 20.6L, Arterial Blood HCO3 20.0L, Arterial Blood Base Excess 0.3, Arterial Blood Oxygen Saturation 99.1H 11/17/18 09:43: D-Dimer, Quantitative 2782.19H, Anion Gap 12, Glomerular Filtration Rate 11.6L, Lactic Acid Level 4.1*H, Blood Urea Nitrogen 38H, Creatinine 4.03H, Sodium Level 136, Potassium Level 3.8, Chloride Level 102, Carbon Dioxide Level 22, Calcium Level 8.3L, Total Creatine Kinase 30, Creatine Kinase MB < 1.0, Creatine Kinase MB Relative Index 3.33, Troponin I < 0.02 11/17/18 14:21: Lactic Acid Followup at 4 Hours 2.4*H CBC/BMP Laboratory Tests 11/17/18 06:13 Red Blood Count 2.77 L, Mean Corpuscular Volume 95.7, Mean Corpuscular Hemoglobin 32.5, Mean Corpuscular Hemoglobin Concent 34.0, Red Cell Distribution Width 18.3 H 11/17/18 09:43 Calcium Level 8.3 L, Total Creatine Kinase 30 11/17/18 09:49 Microbiology Microbiology 11/17/18 Blood Culture, Received Pending 11/17/18 Blood Culture, Received Pending 11/13/18 Gram Stain - Final, Complete 11/13/18 Wound Culture - Final, Complete 11/13/18 Anaerobic Culture - Final, Complete Clostridium Perfringens JASON SUN PA-C Nov 17, 2018 20:53
[2018-11-18] MEDS: PIPERACILLIN/TAZOBACTAM SOD 2.25 GM in D5W MINI-BAG PLUS 50 ML IV SCH ×2 (01:10→16:26)
[2018-11-18] MEDS: VITAMIN D 1,000 INTERNATIONAL UNITS TABLET PO SCH (05:49)
[2018-11-18] MEDS: PANTOPRAZOLE 40MG INJ (PROTONIX) (C9113) IV SCH (05:49)
[2018-11-18] MEDS: LEVOTHYROXINE 50MCG TABLET (0.05MG) PO SCH (05:49)
[2018-11-18] MEDS: MIDODRINE 2.5 MG TAB PO SCH ×3 (05:49→16:26)
[2018-11-18] MEDS: diphenhydrAMINE 25 MG CAP PO SCH (05:50)
[2018-11-18] MEDS: DOCUSATE SODIUM 100 MG CAP PO SCH ×2 (05:50→21:00)
[2018-11-18] MEDS: (RENVELA) SEVELAMER **CARBONate** 800 MG TAB PO SCH ×3 (05:50→17:42)
[2018-11-18 06:00] VITALS: BP 113/56
--- NOTE | 2018-11-18 08:27 | ECGEPIP ---
Stationary ECG Study [facility] Test Date: 2018-11-17 Pat Name: AD JOHNSTON Department: Room: [place] [address] Gender: F Clinical Coder: KEEGAN : 1945 Requested By: Scout Vera Order Number: [id number] Reading MD: Tony Fritz Measurements Intervals [place] Rate: 57 P: -82 [place]: 98 QRS: 79 QRSD: 83 T: 65 QT: 433 QTc: 422 Interpretive Statements JUNCTIONAL BRADYCARDIA Rhythm and rate change from tracing done 11-12-18 Electronically Signed On 11-18-2018 8:27:43 EST by Tony Fritz
[2018-11-18 08:55] LABS: HEMATOCRIT 26.4 % (36.0-47.0); HEMOGLOBIN 8.7 g/dl (12.0-15.5); MEAN CORPUSCULAR HEMOGLOBIN 32.5 pg (27.0-33.0); MEAN CORPUSCULAR VOLUME 98.5 fl (80.0-96.0); RED BLOOD COUNT 2.68 10^6/uL (4.00-5.40); WHITE BLOOD COUNT 7.9 10^3/uL (4.0-10.0)
[2018-11-18 08:56] LABS: PLATELET COUNT, AUTOMATED 97 10^3/uL (150-450)
[2018-11-18 09:25] LABS: ALBUMIN 2.1 GM/DL (3.2-5.2); CALCIUM LEVEL 8.6 MG/DL (8.8-10.2); CREATININE FOR GFR 2.82 MG/DL (0.55-1.30); GLOMERULAR FILTRATION RATE 17.6 (>39); PHOSPHORUS LEVEL 2.2 MG/DL (2.5-4.9); POTASSIUM SERUM 3.8 MEQ/L (3.5-5.1)
--- NOTE | 2018-11-18 10:16 | IPN ---
DATE: 11/17/2018 SUBJECTIVE: The patient was seen and examined at the bedside today morning. Last 24 hour events were noted. The patient reports that when her drain from the left arm was removed that she started profusely bleeding. She had to be taken emergently back to the operating room and surgical correction was done. She required 2 units of packed red blood cell transfusion. This morning, the patient was in respiratory distress. She was actually quite tachypenic. Stat ABG was done, which showed respiratory alkolosis, lactic acid level was done, which was 4. The patient was given 500 mL of normal saline bolus, and she was also started on Zyvox for gram positive coverage. Vascular surgery also ordered a CT angiogram of the chest as well. OBJECTIVE: Vital Signs: Temperature 96.9 degrees Fahrenheit. Blood pressure 96/43. Pulse 76. Respiratory rate 24. Saturating 100% on nasal cannula at 2 liters. Intake and Output: Urine output recorded as 200 mL. Ultrafiltration with hemodialysis was 1 liter. Weight on the bed scale is 48 kg. PHYSICAL EXAM: GENERAL: Patient is awake, alert and oriented times three, laying in bed, in no apparent distress at this point. Head and Neck Exam: Extraocular muscles intact. Pupils equally round and reactive to light. Mucous membranes are moist. Neck is supple. Right internal jugular (IJ) tunneled hemodialysis catheter. Cardiovascular: S1 and S2. Regular rate. No edema of the lower extremities. Respiratory: Chest is clear to auscultation bilaterally. Bilateral equal air entry. No rales or rhonchi. Abdomen: Soft. Positive bowel sounds. Right lower quadrant ileostomy was noted. Musculoskeletal: No clubbing or cyanosis. Left upper AV fistula site is covered with a dressing now, I can still hear the bruit through the dressing. Central Nervous System: No focal deficit. Power is 5/5 in all extremities. LAB REVIEW: CBC showed a WBC of 8.5, hemoglobin 9, and platelets are 80. D-dimer 2782. ABG done this morning showed a pH of 7.6, PCO2 of 19, PO2 of 136, bicarbonate is 20. BMP showed sodium 136, potassium 3.8, chloride 102, bicarbonate 22, BUN 38, creatinine 4.3. Initial lactic acid was 4.1. Repeat lactate was 2.4 after IV fluid hydration. MICROBIOLOGY: Stat blood cultures were sent today, results are pending. Imaging: CAT scan of the chest with IV contrast was done today and it showed thrombotic occlusion in the right subclavian vein. CURRENT INPATIENT MEDICATIONS: Patient's medications were all reviewed by me. She has been started on Zyvox 600 mg IV every 12 hours. She continues to be on IV Zosyn. No other change in the medications today as compared with yesterday. ASSESSMENT AND PLAN: 1. End stage renal disease on hemodialysis. Patient's regular dialysis days are Friday, Friday, Friday. She was dialyzed yesterday. Next hemodialysis session will be tomorrow. 2. Lactic acidosis, etiology is unclear. Possibility of sepsis from the left upper arm AV fistula site infection. She is already covered for gram negative. I have started her on Zyvox for gram positive coverage. Blood cultures were already sent. The patient was given 500 mL of normal saline bolus as well. 3. Anemia secondary to end stage renal disease, blood loss and multiple myeloma. The patient was given 2 units of packed red blood cell transfusion yesterday when she was taken to the operating room emergently. Hemoglobin is optimal at this point. 4. Left upper arm AV fistula infection and bleeding. Bleeding management is as per vascular surgery. She is currently on Zosyn for Clostridium perfringens in the wound culture. 5. Multiple myeloma in relapse. Continue current dose of NINLARO and dexamethasone.
[2018-11-18] MEDS ORDERED: LIDOCAINE 1% SDV 5 ML VIAL SQ ONE (12:00)
[2018-11-18] MEDS ORDERED: HEPARIN 1,000 UNITS/ML 10ML VIAL (FOR RADIOLOGY& DIALYSIS ONLY) XX ONE (12:00)
--- NOTE | 2018-11-18 13:09 | IPNPDOC ---
Text Note Date of Service The patient was seen on 11/18/18. NOTE C/o: SOB improved, no chest pain,arm pain. Lt arm AZAM band loosened by moving. PE: VSS, SBPs: 100s-110s Lungs: CTAB Heart: RRR, PP 2+ b/l Abd: BS nl, NT/ND Ext: no C/C/E, LUE: AZAM band loose, PANTERA drain in place with 25 cc serosanguineous fluid. Wound C/D/I, Lt arm swollen, nontender. proximal AVF with thrills and pulse, radial and ulnar pulse weak to palpate. A/p: 1. POD #2 S/p Lt AVF revision bleed /hematoma evacuation, graft angioplasty and wound irrigation. Continue IV Abx DC PANTERA drain Encourage arm exercise as tolerated tid. 2. Acute on chronic anemia, H&H 8.7/26.4 vs 10.1/30.1 per medicine 3. SOB of unclear cause, improved with IVF and vasopressor support per medicine. 4. ESRD on HD MWF per nephrology 5. 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 6. Multiple myeloma in relapse per oncology. VS,Fishbone, I+O VS, Fishbone, I+O Laboratory Tests 11/18/18 08:38 Red Blood Count 2.68 L, Mean Corpuscular Volume 98.5 H, Mean Corpuscular Hemoglobin 32.5, Mean Corpuscular Hemoglobin Concent 33.0, Red Cell Distribution Width 18.6 H, Anion Gap 9 Vital Signs Date Time Temp Pulse Resp B/P (MAP) Pulse Ox O2 Delivery O2 Flow Rate FiO2 11/18/18 06:00 97.1 69 18 113/56 (75) 99 Room Air 11/17/18 22:00 2.0 I&O- Last 24 Hours up to 6 AM 11/18/18 06:00 Intake Total 2200 ml Output Total 820 ml Balance 1380 ml JASON SUN PA-C Nov 18, 2018 13:09
[2018-11-18] MEDS: LINEZOLID 600 MG in APPROPRIATE DILUENT 1 EA IV SCH (13:14)
[2018-11-18 14:00] VITALS: BP 136/63
[2018-11-18] MEDS: NORCO, ANEXSIA 5/325MG TABLET (HYDROcodone/ACETAMINOPHEN) PO PRN (19:00)
[2018-11-18 22:00] VITALS: BP 114/56
[2018-11-19] MEDS: LINEZOLID 600 MG in APPROPRIATE DILUENT 1 EA IV SCH ×3 (00:27→22:58)
[2018-11-19] MEDS: PIPERACILLIN/TAZOBACTAM SOD 2.25 GM in D5W MINI-BAG PLUS 50 ML IV SCH ×2 (01:00→14:59)
[2018-11-19 02:00] VITALS: BP 99/50
[2018-11-19 03:00] VITALS: BP 112/53
[2018-11-19 06:00] VITALS: BP 131/60
[2018-11-19] MEDS: LEVOTHYROXINE 50MCG TABLET (0.05MG) PO SCH (06:45)
[2018-11-19] MEDS: DOCUSATE SODIUM 100 MG CAP PO SCH ×2 (08:27→20:22)
[2018-11-19] MEDS: PANTOPRAZOLE 40MG INJ (PROTONIX) (C9113) IV SCH (08:27)
[2018-11-19] MEDS: VITAMIN D 1,000 INTERNATIONAL UNITS TABLET PO SCH (08:27)
[2018-11-19] MEDS: MIDODRINE 2.5 MG TAB PO SCH ×3 (08:27→16:10)
[2018-11-19 08:51] LABS: HEMATOCRIT 30.9 % (36.0-47.0); HEMOGLOBIN 9.8 g/dl (12.0-15.5); MEAN CORPUSCULAR HEMOGLOBIN 32.5 pg (27.0-33.0); MEAN CORPUSCULAR HGB CONC 31.7 g/dl (32.0-36.5); MEAN CORPUSCULAR VOLUME 102.3 fl (80.0-96.0); PLATELET COUNT, AUTOMATED 108 10^3/uL (150-450); RED BLOOD COUNT 3.02 10^6/uL (4.00-5.40); WHITE BLOOD COUNT 9.7 10^3/uL (4.0-10.0)
[2018-11-19 09:10] LABS: CALCIUM LEVEL 8.9 MG/DL (8.8-10.2); CREATININE FOR GFR 3.58 MG/DL (0.55-1.30); GLOMERULAR FILTRATION RATE 13.4 (>39); POTASSIUM SERUM 4.2 MEQ/L (3.5-5.1)
--- NOTE | 2018-11-19 09:32 | IPN ---
DATE OF SERVICE: 11/18/2018 SUBJECTIVE: Patient was seen and examined at the bedside today morning during hemodialysis procedure. She is tolerating the hemodialysis procedure well. She reports that she is feeling better today as compared with yesterday. There is a drop in her hemoglobin today. Otherwise, she denies any active complaints. OBJECTIVE: Vital Signs: Temperature 97.1 degrees Fahrenheit. Blood pressure 113/56. Pulse 69. Respiratory rate 18. Saturating 99% on room air. Intake and Output: Urine output recorded as 300 mL. Weight on the bed scale is 48.8 kg. PHYSICAL EXAMINATION: General: The patient is awake, alert and oriented times three laying in bed getting hemodialysis done in no apparent distress. Head and Neck Exam: Extraocular muscles intact. Pupils equally round and reactive to light. There is positive conjunctival pallor. Mucous membranes are moist. Neck is supple. She has a right IJ tunneled hemodialysis catheter. Cardiovascular: S1, S2, regular rate. No edema of the bilateral lower extremities. Respiratory: Chest is clear to auscultation bilaterally. Bilateral equal air entry. No rales or rhonchi. Abdomen: Soft. Positive bowel sounds. Right lower quadrant ileostomy was noted. Musculoskeletal: No clubbing or cyanosis. Left upper arm AV fistula site is covered with a dressing. Central Nervous System: No focal deficit. Power is 5/5 in all extremities. LAB REVIEW: CBC showed a WBC of 7.9, hemoglobin 8.7, platelets 97. BMP showed sodium 140, potassium 3.8, chloride 110, bicarbonate 21, BUN 23, creatinine 2.8. Calcium 8.6. Phosphorus 2.2. MICROBIOLOGY: Blood cultures are negative so far. CURRENT INPATIENT MEDICATIONS: Patient's medications were all reviewed by me. She was started on Zyvox yesterday in addition to Zosyn. There is no other change in the medications today as compared with yesterday. ASSESSMENT AND PLAN: 1. End stage renal disease on hemodialysis. Patient is being dialyzed today according to her regular Friday, Friday, Friday schedule. No fluid removal during dialysis because she has an ileostomy. 2. Lactic acidosis. The patient was wallace cultured yesterday. Zyvox was added in addition to Zosyn. She was also given 500 mL of fluid. She is feeling better today. No fluid removal with dialysis today. Continue current antibiotics. She is clinically feeling better. 3. Anemia secondary to end stage renal disease and multiple myeloma and recent blood loss. Patient has received 3 units of packed red blood cell transfusion so far during this hospitalization. Hemoglobin is 8.7, which is still suboptimal. If hemoglobin drops to 8 or below, then she will be given packed red blood cell transfusion again. 4. Left upper arm AV fistula site bleeding and infection. It is being managed by vascular surgery. Continue Zosyn for Clostridium perfringens in the wound cultures. 5. Multiple myeloma in relapse. Continue current dose of NINLARO and dexamethasone. 6. Chronic kidney disease mineral bone disease. The patient is on Renvela for hyperphosphatemia, however, her phosphorus level today morning is low. I have stopped the Renvela at this point.
[2018-11-19] MEDS: ACETAMINOPHEN TAB 650MG DOSE (2X325MG) PO PRN (11:21)
[2018-11-19 14:00] VITALS: BP 113/56
--- NOTE | 2018-11-19 16:44 | IPNPDOC ---
Text Note Date of Service The patient was seen on 11/19/18. NOTE SUBJECTIVE: Patient was examined at bedside today. She had not acute complaints, she was afebrile over night. She stated that she feeling well today. OBJECTIVE: See Below PHYSICAL EXAMINATION: General: Alert, awake, pleasant, no acute distress Head and Neck Exam: Head is atraumatic, neck is supple, no JVD, no thyromegaly Cardiovascular: S1, S2, regular rate., No murmurs, rubs or gallops Respiratory: Chest is clear to auscultation bilaterally. Bilateral equal air entry. No rales or rhonchi. No use of accessory muscles Abdomen:Right lower quadrant ileostomy in placed Musculoskeletal: Left upper arm AV fistula in place, covered, no bleeding Central Nervous System: No focal deficit. Power is 5/5 in all extremities. LAB REVIEW: See below MICROBIOLOGY: Negative ASSESSMENT AND PLAN: 1. End stage renal disease on hemodialysis. Patient has dialysis regularly on Friday, Friday and Friday, she is scheduled for dialysis tomorrow. No fluid was removed and her last dialysis section. 2. Lactic acidosis. Currently on Zyvox and Zosyn. Blood cultures negative after 48 hours, WBC within normal range, patient feels fine. She was afebrile 3. Anemia secondary to end stage renal disease and multiple myeloma and recent blood loss. Current hemoglobin is 9.8, she is status post 3 Blood transfusions. She is stable for now. Continue monitor. Will consider transfusion if patient's hemoglobin drops to 8 4. Left upper arm AV fistula site bleeding and infection. Has had revision by vascular surgery. Continue antibiotic therapy. 5. Multiple myeloma in relapse. Continue current dose of NINLARO and dexamethasone. 6. Chronic kidney disease mineral bone disease. Low phosphorus levels, measured at 2.2 Continue to hold Renvela VS,Fishbone, I+O VS, Fishbone, I+O Laboratory Tests 11/19/18 08:39 Red Blood Count 3.02 L, Mean Corpuscular Volume 102.3 H, Mean Corpuscular Hemoglobin 32.5, Mean Corpuscular Hemoglobin Concent 31.7 L, Red Cell Distribution Width 18.4 H, Calcium Level 8.9 Vital Signs Date Time Temp Pulse Resp B/P (MAP) Pulse Ox O2 Delivery O2 Flow Rate FiO2 1/17/19 14:00 98.9 67 17 113/56 (75) 96 Room Air 11/18/18 20:15 2.0 I&O- Last 24 Hours up to 6 AM 11/19/18 05:59 Intake Total 1080 ml Output Total 1150 ml Balance -70 ml GME ATTESTATION GME ATTESTATION My faculty preceptor for this patient encounter was physically present during the encounter and was fully available. All aspects of the patient interview, examination, medical decision making process, and medical care plan development were reviewed and approved by the faculty preceptor. The faculty preceptor is aware and concurs with the plan as stated in the body of this note and will attest to such by his/her cosignature. LUANNE VALENZUELA DO Nov 19, 2018 16:44
[2018-11-19 22:00] VITALS: BP 111/53
[2018-11-19] MEDS: NORCO, ANEXSIA 5/325MG TABLET (HYDROcodone/ACETAMINOPHEN) PO PRN (22:52)
[2018-11-20] VITALS (10 sets, daily range): BP systolic 74–107; BP diastolic 41–58
[2018-11-20] MEDS: PIPERACILLIN/TAZOBACTAM SOD 2.25 GM in D5W MINI-BAG PLUS 50 ML IV SCH ×2 (01:21→14:34)
[2018-11-20] MEDS: DOCUSATE SODIUM 100 MG CAP PO SCH ×2 (05:42→21:00)
[2018-11-20] MEDS: MIDODRINE 2.5 MG TAB PO SCH ×2 (05:47→12:00)
[2018-11-20] MEDS: LEVOTHYROXINE 50MCG TABLET (0.05MG) PO SCH (05:47)
[2018-11-20] MEDS: VITAMIN D 1,000 INTERNATIONAL UNITS TABLET PO SCH (05:47)
[2018-11-20] MEDS: diphenhydrAMINE 25 MG CAP PO SCH (08:00)
[2018-11-20] MEDS: PANTOPRAZOLE 40MG INJ (PROTONIX) (C9113) IV SCH (08:01)
[2018-11-20 10:16] LABS: BASO % 0.2 % (0.0-1.0); EOS # 0.2 10^3/uL (0.0-0.50); EOS % 4.2 % (0.0-3.0); HEMOGLOBIN 8.5 g/dl (12.0-15.5); LYMPH # 0.8 10^3/uL (1.5-4.5); LYMPH % 13.6 % (24.0-44.0); MEAN CORPUSCULAR HEMOGLOBIN 32.6 pg (27.0-33.0); MEAN CORPUSCULAR HGB CONC 32.7 g/dl (32.0-36.5); MEAN CORPUSCULAR VOLUME 99.6 fl (80.0-96.0); MONO # 0.4 10^3/uL (0.0-0.8); MONO % 6.4 % (0.0-5.0); NEUTROPHILS # 3.9 10^3/uL (1.8-7.7); NEUTROPHILS % 71.6 % (36.0-66.0); PLATELET COUNT, AUTOMATED 123 10^3/uL (150-450); RED BLOOD COUNT 2.61 10^6/uL (4.00-5.40); WHITE BLOOD COUNT 5.5 10^3/uL (4.0-10.0)
[2018-11-20 10:39] LABS: ALBUMIN 2.1 GM/DL (3.2-5.2); CALCIUM LEVEL 8.2 MG/DL (8.8-10.2); CREATININE FOR GFR 4.57 MG/DL (0.55-1.30); GLOMERULAR FILTRATION RATE 10.1 (>39); PHOSPHORUS LEVEL 2.8 MG/DL (2.5-4.9)
[2018-11-20] MEDS ORDERED: LIDOCAINE 1% SDV INJ 30 ML VIAL As Ordered ONE (10:56)
[2018-11-20] MEDS ORDERED: BUPIVACAINE HCL 0.5% 30 ML VIAL As Ordered ONE (10:57)
--- NOTE | 2018-11-20 10:59 | IPNPDOC ---
Subjective Date Seen The patient was seen on 11/20/18. Subjective Chief Complaint/HPI C/o LUE and facial swelling and oozing from the fistula at 6:00am while lying in bed. Objective Physical Examination General Exam: Positive: Alert, Mild Distress Eye Exam: Positive: PERRLA, Conjunctiva & lids normal, EOMI ENT Exam: Positive: Atraumatic Neck Exam: Positive: Supple, +2 carotid pulse wo bruit Chest Exam: Positive: Clear to auscultation, Normal air movement; Negative: Rales, Rhonchi, Wheezing, Diminished, Other Heart Exam: Positive: Rate Normal, Regular Rhythm, Normal S1, Normal S2; Negative: Gallops, Murmurs, Rubs, Other Abdomen Exam: Positive: Normal bowel sounds, Soft; Negative: Tenderness, Mass, Hernia, Other Extremity Exam: Positive: Other (previous edema d/t pressure dressing resolved, no paresthesia, cap refill wnl.); Negative: Clubbing, Cyanosis Neuro Exam: Positive: Normal Speech, Strength at 5/5 X4 ext, Cranial Nerves 3- 12 NL Psych Exam: Positive: Mental status NL, Mood NL, Oriented x 3 Assessment /Plan Assessment 1. LUE AVG fistula infection and rebleed On IV Zosyn and Linezolid, afebrile, WBC 8.5 2. Acute on chronic anemia, H&H 8.5/26.0 vs 9.8/30.9 3.. ESRD on HD today 4. 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 5. Multiple myeloma in relapse per oncology. Plan/VTE VTE Prophylaxis Ordered?: Yes Plan 1. Continue current management 2. Plan for removal of LUE AVG fistula today 3. NPO (no breakfast) VS, I&O, 24H, Fishbone Vital Signs/I&O Vital Signs Date Time Temp Pulse Resp B/P (MAP) Pulse Ox O2 Delivery O2 Flow Rate FiO2 11/20/18 06:00 98.7 61 18 99/55 (70) 98 Room Air 11/18/18 20:15 2.0 I&O- Last 24 Hours up to 6 AM 11/20/18 06:00 Intake Total 2150 ml Output Total 950 ml Balance 1200 ml Laboratory Data 24H LABS Laboratory Tests 2 11/20/18 08:02: Immature Granulocyte % (Auto) 4.0H, White Blood Count 5.5, Red Blood Count 2.61L, Hemoglobin 8.5L, Hematocrit 26.0L, Mean Corpuscular Volume 99.6H, Mean Corpuscular Hemoglobin 32.6, Mean Corpuscular Hemoglobin Concent 32.7, Red Cell Distribution Width 18.1H, Platelet Count 123L, Neutrophils (%) (Auto) 71.6H, Lymphocytes (%) (Auto) 13.6L, Monocytes (%) (Auto) 6.4H, Eosinophils (%) (Auto) 4.2H, Basophils (%) (Auto) 0.2, Neutrophils # (Auto) 3.9, Lymphocytes # (Auto) 0.8L, Monocytes # (Auto) 0.4, Eosinophils # (Auto) 0.2, Basophils # (Auto) 0.0, Nucleated Red Blood Cells % (auto) 0.0, Blood Urea Nitrogen 29H, Creatinine 4.57H, Sodium Level 138, Potassium Level 4.0, Chloride Level 108H, Carbon Dioxide Level 18L, Anion Gap 12, Glomerular Filtration Rate 10.1L, Calcium Level 8.2L, Phosphorus Level 2.8#, Albumin 2.1L CBC/BMP Laboratory Tests 11/20/18 08:02 Red Blood Count 2.61 L, Mean Corpuscular Volume 99.6 H, Mean Corpuscular Hemoglo bin 32.6, Mean Corpuscular Hemoglobin Concent 32.7, Red Cell Distribution Width 18.1 H, Neutrophils (%) (Auto) 71.6 H, Lymphocytes (%) (Auto) 13.6 L, Monocytes (%) (Auto) 6.4 H, Eosinophils (%) (Auto) 4.2 H, Basophils (%) (Auto) 0.2, Neutrophils # (Auto) 3.9, Lymphocytes # (Auto) 0.8 L, Monocytes # (Auto) 0.4, Eosinophils # (Auto) 0.2, Basophils # (Auto) 0.0, Anion Gap 12 Microbiology Microbiology 11/17/18 Blood Culture - Preliminary, Resulted No Growth after 72 hours. All specime... 11/17/18 Blood Culture - Preliminary, Resulted No Growth after 72 hours. All specime... 11/13/18 Gram Stain - Final, Complete 11/13/18 Wound Culture - Final, Complete 11/13/18 Anaerobic Culture - Final, Complete Clostridium Perfringens JASON SUN PA-C Nov 20, 2018 10:59
[2018-11-20] MEDS ORDERED: HEPARIN 1,000 UNITS/ML 10ML VIAL (FOR RADIOLOGY& DIALYSIS ONLY) XX ONE (11:00)
[2018-11-20] MEDS ORDERED: fentaNYL 100 MCG/2 ML INJECTION (J3010) As Ordered ONE ×2 (12:45→17:31)
[2018-11-20] MEDS ORDERED: HEPARIN SOD (PORCINE) 5000 UNITS/ML VIAL As Ordered ONE (12:54)
[2018-11-20] MEDS ORDERED: fentaNYL 100 MCG/2 ML INJECTION (J3010) IV PRN (14:00)
[2018-11-20] MEDS ORDERED: NS 1,000 ML IV SCH (14:00)
[2018-11-20] MEDS ORDERED: ONDANSETRON 4MG/2ML VIAL (J2405) IV PRN (14:00)
[2018-11-20] MEDS ORDERED: ZOSYN 3.375 GM VIAL (J2543) As Ordered ONE (14:16)
[2018-11-20] MEDS ORDERED: ZOSYN 2.25 GM VIAL (J2543) As Ordered ONE (14:24)
[2018-11-20] MEDS ORDERED: MIDAZOLAM INJ 2 MG/2 ML VIAL (J2250) As Ordered ONE ×2 (14:41→17:31)
[2018-11-20] MEDS ORDERED: PROPOFOL 200 MG/20 ML VIAL As Ordered ONE ×2 (14:41→17:30)
[2018-11-20] MEDS ORDERED: LIDOCAINE 2% INJ 100 MG/5 ML SDV (FOR ANES.) As Ordered ONE ×2 (14:41→17:30)
[2018-11-20 16:45] LABS: HEMOGLOBIN 7.2 g/dl (12.0-15.5)
[2018-11-20] MEDS ORDERED: ONDANSETRON 4MG/2ML VIAL (J2405) As Ordered ONE (17:30)
[2018-11-20] MEDS ORDERED: dexameTHASONE 4 MG/ML 1ML VIAL (J1100) As Ordered ONE (17:30)
[2018-11-20] MEDS ORDERED: (RENVELA) SEVELAMER **CARBONate** 800 MG TAB PO SCH (18:00)
[2018-11-20] MEDS: NORCO, ANEXSIA 5/325MG TABLET (HYDROcodone/ACETAMINOPHEN) PO PRN (21:46)
[2018-11-20] MEDS: LINEZOLID 600 MG in APPROPRIATE DILUENT 1 EA IV SCH ×3 (23:42)
[2018-11-21] VITALS: BP 113/57
[2018-11-21] MEDS: PIPERACILLIN/TAZOBACTAM SOD 2.25 GM in D5W MINI-BAG PLUS 50 ML IV SCH ×2 (01:55→15:31)
[2018-11-21 04:00] VITALS: BP 116/55
[2018-11-21] MEDS: LEVOTHYROXINE 50MCG TABLET (0.05MG) PO SCH (06:19)
[2018-11-21] MEDS: LINEZOLID 600 MG in APPROPRIATE DILUENT 1 EA IV SCH ×4 (06:41→11:59)
[2018-11-21] MEDS: MIDODRINE 2.5 MG TAB PO SCH ×4 (06:44→15:34)
[2018-11-21 08:17] VITALS: BP 100/56
[2018-11-21] MEDS: (RENVELA) SEVELAMER **CARBONate** 800 MG TAB PO SCH ×3 (08:20→18:42)
[2018-11-21] MEDS: VITAMIN D 1,000 INTERNATIONAL UNITS TABLET PO SCH (08:21)
[2018-11-21] MEDS: DOCUSATE SODIUM 100 MG CAP PO SCH ×2 (08:21→21:00)
[2018-11-21] MEDS: PANTOPRAZOLE 40MG INJ (PROTONIX) (C9113) IV SCH (08:21)
[2018-11-21 09:12] LABS: BASO % 0.5 % (0.0-1.0); EOS # 0.1 10^3/uL (0.0-0.50); EOS % 0.9 % (0.0-3.0); HEMATOCRIT 33.4 % (36.0-47.0); LYMPH # 0.7 10^3/uL (1.5-4.5); LYMPH % 8.4 % (24.0-44.0); MEAN CORPUSCULAR HEMOGLOBIN 31.7 pg (27.0-33.0); MEAN CORPUSCULAR HGB CONC 33.5 g/dl (32.0-36.5); MEAN CORPUSCULAR VOLUME 94.6 fl (80.0-96.0); MONO # 0.3 10^3/uL (0.0-0.8); MONO % 3.7 % (0.0-5.0); NEUTROPHILS # 6.9 10^3/uL (1.8-7.7); NEUTROPHILS % 84.2 % (36.0-66.0); PLATELET COUNT, AUTOMATED 117 10^3/uL (150-450); RED BLOOD COUNT 3.53 10^6/uL (4.00-5.40); WHITE BLOOD COUNT 8.2 10^3/uL (4.0-10.0)
[2018-11-21 09:24] LABS: HEMOGLOBIN 11.2 g/dl (12.0-15.5)
[2018-11-21 09:31] LABS: CALCIUM LEVEL 7.9 MG/DL (8.8-10.2); CREATININE FOR GFR 3.54 MG/DL (0.55-1.30); GLOMERULAR FILTRATION RATE 13.5 (>39); POTASSIUM SERUM 4.8 MEQ/L (3.5-5.1)
--- NOTE | 2018-11-21 10:39 | IPN ---
DATE OF SERVICE: 11/20/2018 SUBJECTIVE: Patient was seen and examined at the bedside today morning during hemodialysis procedure. She is tolerating the hemodialysis procedure well. She told me that her left arm AV graft is not healing and there is a plan to have the graft removed by vascular surgery today after the hemodialysis procedure. She reports that the AV graft site is still having slow oozing of blood. OBJECTIVE: Vital Signs: Temperature 98.2 degrees Fahrenheit. Blood pressure 95/55. Pulse 84. Respiratory rate 18. Saturating 100% on nasal cannula at 2 liters. Intake and Output: Urine output recorded as 250 mL. Weight on the bed scale is 48.5 kg. PHYSICAL EXAMINATION: General: The patient is awake, alert and oriented times three laying in bed getting hemodialysis done. Head and Neck Exam: Extraocular muscles intact. Pupils equally round and reactive to light. Mucous membranes are moist. Neck is supple. She has a right IJ tunneled hemodialysis catheter. Cardiovascular: S1, S2, regular rate. No edema of the bilateral lower extremities. Respiratory: Chest is clear to auscultation bilaterally. Bilateral equal air entry. No rales or rhonchi. Abdomen: Soft. Positive bowel sounds. Right lower quadrant ileostomy. Musculoskeletal: No clubbing or cyanosis. Left upper arm AV graft site is covered with a dressing. Central Nervous System: No focal deficit. Power is 5/5 in all extremities. LAB REVIEW: CBC showed a WBC of 5.5, hemoglobin 8.5, platelets 123. BMP showed sodium 138, potassium 4, chloride 108, bicarbonate 18, BUN 29, creatinine 1.5. Calcium 8.2. Phosphorus 2.8. CURRENT INPATIENT MEDICATIONS: Patient's inpatient medications were all reviewed by me. She continues to be on IV Zyvox and Zosyn. There is no other change in the medications today as compared with yesterday. ASSESSMENT AND PLAN: 1. End stage renal disease on hemodialysis. Patient is being dialyzed today according to her Friday, Friday, Friday schedule. No fluid removal because of ileostomy. 2. Infected left upper arm AV graft. Patient is going to have the AV graft removed by vascular surgery in the afternoon. Continue current antibiotic Zosyn and Zyvox. 3. Anemia secondary to end stage renal disease and multiple myeloma. Hemoglobin is optimal. Transfuse as needed for hemoglobin below 8. 4. Multiple myeloma in relapse. Continue current dose of NINLARO and dexamethasone once a week on Friday. 5. Chronic kidney disease mineral bone disease. Her phosphorus levels are low. I have decreased the Renvela dose to 800 mg by mouth with meals three times a day.
[2018-11-21] MEDS: ACETAMINOPHEN TAB 650MG DOSE (2X325MG) PO PRN (11:59)
[2018-11-21 12:08] VITALS: BP 106/53
[2018-11-21 16:08] VITALS: BP 107/57
[2018-11-21 20:00] VITALS: BP 116/56
[2018-11-21] MEDS: NORCO, ANEXSIA 5/325MG TABLET (HYDROcodone/ACETAMINOPHEN) PO PRN (21:41)
[2018-11-22] VITALS (7 sets, daily range): BP systolic 103–137; BP diastolic 53–61
[2018-11-22] MEDS: LINEZOLID 600 MG in APPROPRIATE DILUENT 1 EA IV SCH ×2 (00:09→12:46)
[2018-11-22] MEDS: PIPERACILLIN/TAZOBACTAM SOD 2.25 GM in D5W MINI-BAG PLUS 50 ML IV SCH ×2 (01:51→14:57)
[2018-11-22] MEDS: LEVOTHYROXINE 50MCG TABLET (0.05MG) PO SCH (05:44)
[2018-11-22 06:09] LABS: BASO % 0.6 % (0.0-1.0); EOS # 0.2 10^3/uL (0.0-0.50); HEMATOCRIT 30.1 % (36.0-47.0); HEMOGLOBIN 9.9 g/dl (12.0-15.5); MEAN CORPUSCULAR HEMOGLOBIN 31.7 pg (27.0-33.0); MEAN CORPUSCULAR HGB CONC 32.9 g/dl (32.0-36.5); MEAN CORPUSCULAR VOLUME 96.5 fl (80.0-96.0); MONO # 0.4 10^3/uL (0.0-0.8); MONO % 8.1 % (0.0-5.0); NEUTROPHILS # 3.6 10^3/uL (1.8-7.7); NEUTROPHILS % 67.1 % (36.0-66.0); PLATELET COUNT, AUTOMATED 108 10^3/uL (150-450); RED BLOOD COUNT 3.12 10^6/uL (4.00-5.40); WHITE BLOOD COUNT 5.3 10^3/uL (4.0-10.0)
[2018-11-22 06:41] LABS: CALCIUM LEVEL 7.9 MG/DL (8.8-10.2); CREATININE FOR GFR 4.42 MG/DL (0.55-1.30); GLOMERULAR FILTRATION RATE 10.5 (>39); POTASSIUM SERUM 5.1 MEQ/L (3.5-5.1)
[2018-11-22] MEDS: (RENVELA) SEVELAMER **CARBONate** 800 MG TAB PO SCH ×4 (08:00→17:01)
[2018-11-22] MEDS: DOCUSATE SODIUM 100 MG CAP PO SCH ×2 (08:14→21:00)
[2018-11-22] MEDS: MIDODRINE 2.5 MG TAB PO SCH ×3 (08:14→17:01)
[2018-11-22] MEDS: VITAMIN D 1,000 INTERNATIONAL UNITS TABLET PO SCH (08:14)
[2018-11-22] MEDS: PANTOPRAZOLE 40MG INJ (PROTONIX) (C9113) IV SCH (08:15)
[2018-11-22] MEDS ORDERED: BUPIVACAINE/EPIN 0.25% 30 ML VIAL As Ordered ONE (09:29)
[2018-11-22] MEDS ORDERED: PROPOFOL 200 MG/20 ML VIAL As Ordered ONE (09:38)
[2018-11-22] MEDS ORDERED: MIDAZOLAM INJ 2 MG/2 ML VIAL (J2250) As Ordered ONE (09:38)
[2018-11-22] MEDS ORDERED: ONDANSETRON 4MG/2ML VIAL (J2405) As Ordered ONE (09:38)
[2018-11-22] MEDS ORDERED: fentaNYL 100 MCG/2 ML INJECTION (J3010) As Ordered ONE (09:38)
[2018-11-22] MEDS ORDERED: NS 1,000 ML IV SCH (10:00)
[2018-11-22] MEDS ORDERED: NORCO, ANEXSIA 5/325MG TABLET (HYDROcodone/ACETAMINOPHEN) PO PRN (10:00)
[2018-11-22] MEDS ORDERED: ONDANSETRON 4MG/2ML VIAL (J2405) IV PRN (10:00)
[2018-11-22] MEDS: NORCO, ANEXSIA 5/325MG TABLET (HYDROcodone/ACETAMINOPHEN) PO PRN ×2 (12:55→21:42)
--- NOTE | 2018-11-22 13:07 | IPN ---
DATE OF SERVICE: 11/21/2018 SUBJECTIVE: Patient was seen and examined at the bedside today morning. She reports that she got left upper arm AV graft excised yesterday. She bled during the procedure. She needed three units of packed red blood cell (PRBC) transfusion since after the procedure. She was dialyzed yesterday. She tolerated the hemodialysis procedure well. OBJECTIVE: Vital Signs: Temperature 98.9 degrees Fahrenheit. Blood pressure 106/53. Pulse 68. Respiratory rate 19. Saturating 98% on room air. Intake and Output: Fluid removed during hemodialysis was 500 mL yesterday. Weight on the bed scale is not available. 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 PHYSICAL EXAMINATION: General: The patient is awake, alert and oriented times three laying in bed in no apparent distress. Head and Neck Exam: Extraocular muscles intact. Pupils equally round and reactive to light. Mucous membranes are moist. Neck is supple. She has a right IJ tunneled hemodialysis catheter. Cardiovascular: S1, S2, regular rate. No edema of the bilateral lower extremities. Respiratory: Chest is clear to auscultation bilaterally. Bilateral equal air entry. No rales or rhonchi. Abdomen: Soft. Positive bowel sounds. Right lower quadrant ileostomy was noted. Musculoskeletal: No clubbing or cyanosis. Left upper arm AV graft excision site is covered with a dressing. Central Nervous System: No focal deficit. Power is 5/5 in all extremities. LAB REVIEW: CBC showed a WBC of 8.2, hemoglobin 11.2, platelets 117. BMP showed sodium 141, potassium 4.8, chloride 109, bicarbonate 16, BUN 23, creatinine 3.5. Calcium 7.9. CURRENT INPATIENT MEDICATIONS: Patient's inpatient medications were all reviewed by me. She continues to be on Zosyn and linezolid No other change in the medications today as compared with yesterday. ASSESSMENT AND PLAN: 1. End stage renal disease on hemodialysis. Patient gets dialysis Friday, Friday, Friday. She was dialyzed according to her regular schedule yesterday. Next hemodialysis session will be on 11/23/2018. 2. Infected left upper arm AV graft. Status post excision. AV graft was excised by vascular surgery yesterday. She continues to be on IV antibiotics. Duration of antibiotics is as per vascular surgery. 3. Anemia secondary to end stage renal disease, blood loss and multiple myeloma. Patient got 3 units of PRBC transfusion since yesterday. Hemoglobin is optimal. 4. Multiple myeloma in relapse. Continue current dose of dexamethasone and NINLARO as per outpatient regimen.
[2018-11-23] VITALS (7 sets, daily range): BP systolic 96–129; BP diastolic 53–75
[2018-11-23] MEDS: PIPERACILLIN/TAZOBACTAM SOD 2.25 GM in D5W MINI-BAG PLUS 50 ML IV SCH (00:46)
[2018-11-23] MEDS: LINEZOLID 600 MG in APPROPRIATE DILUENT 1 EA IV SCH ×2 (00:46→13:00)
[2018-11-23 05:41] LABS: BASO % 0.1 % (0.0-1.0); HEMATOCRIT 29.3 % (36.0-47.0); HEMOGLOBIN 9.8 g/dl (12.0-15.5); LYMPH # 0.7 10^3/uL (1.5-4.5); LYMPH % 7.7 % (24.0-44.0); MEAN CORPUSCULAR HEMOGLOBIN 31.9 pg (27.0-33.0); MEAN CORPUSCULAR HGB CONC 33.4 g/dl (32.0-36.5); MEAN CORPUSCULAR VOLUME 95.4 fl (80.0-96.0); MONO # 0.3 10^3/uL (0.0-0.8); MONO % 2.9 % (0.0-5.0); NEUTROPHILS # 7.5 10^3/uL (1.8-7.7); NEUTROPHILS % 88.2 % (36.0-66.0); PLATELET COUNT, AUTOMATED 139 10^3/uL (150-450); RED BLOOD COUNT 3.07 10^6/uL (4.00-5.40); WHITE BLOOD COUNT 8.6 10^3/uL (4.0-10.0)
[2018-11-23] MEDS: LEVOTHYROXINE 50MCG TABLET (0.05MG) PO SCH (05:41)
[2018-11-23 05:43] LABS: CALCIUM LEVEL 8.2 MG/DL (8.8-10.2); CREATININE FOR GFR 5.6 MG/DL (0.55-1.30); POTASSIUM SERUM 5.1 MEQ/L (3.5-5.1)
[2018-11-23] MEDS: (RENVELA) SEVELAMER **CARBONate** 800 MG TAB PO SCH ×3 (07:05→17:36)
[2018-11-23] MEDS: MIDODRINE 2.5 MG TAB PO SCH ×3 (07:06→17:36)
[2018-11-23] MEDS: VITAMIN D 1,000 INTERNATIONAL UNITS TABLET PO SCH (07:06)
[2018-11-23] MEDS: diphenhydrAMINE 25 MG CAP PO SCH (07:06)
[2018-11-23] MEDS: PANTOPRAZOLE 40MG INJ (PROTONIX) (C9113) IV SCH (07:07)
[2018-11-23] MEDS: DOCUSATE SODIUM 100 MG CAP PO SCH ×2 (07:13→21:00)
[2018-11-23] MEDS ORDERED: HEPARIN 1,000 UNITS/ML 10ML VIAL (FOR RADIOLOGY& DIALYSIS ONLY) XX ONE (12:30)
[2018-11-23] MEDS ORDERED: HEPARIN 1,000 UNITS/ML 10ML VIAL (FOR RADIOLOGY& DIALYSIS ONLY) IV ONE (12:30)
--- NOTE | 2018-11-23 17:00 | REP ---
Right upper extremity duplex venous ultrasound: History: Right upper extremity edema. Comparison CT study November 17, 2018. The patient has a tunneled central venous catheter via the right side. Sonographic findings: There is circumferential narrowing of the internal jugular vein which carries the patients tunneled catheter. There is swirling somewhat bidirectional flow above this in the internal jugular vein consistent with some narrowing of the internal jugular vein. No internal jugular venous thrombosis. There is echogenic material associated with a valve in the right subclavian vein with lack of compressibility. This is consistent with nonocclusive venous thrombosis. Sluggish flow is seen throughout the upper arm veins but no other evidence of venous thrombosis is seen in the brachial, basilic, or cephalic veins. Impression: Nonocclusive thrombus associated with a valve in the subclavian vein. The internal jugular vein narrows around the tunneled central venous catheter. No evidence of internal jugular vein thrombus. Generally slow flow in the right upper extremity veins. Electronically Signed by Dejon Daniel MD 11/23/2018 06:15 P
[2018-11-23] MEDS: ACETAMINOPHEN TAB 650MG DOSE (2X325MG) PO PRN (17:39)
--- NOTE | 2018-11-23 20:40 | IPN ---
DATE: 11/23/2018 SUBJECTIVE: Yoana is seen and examined this morning at the bedside receiving her maintenance dialysis treatment from her PermCath. She denies any acute overnight events or issues. She complains of bilaterally upper extremity swelling. VITAL SIGNS: Temperature 98.4, pulse 77, respiratory rate 18, blood pressure 96/57, saturating 97% on room air. Intake yesterday was 985. Ostomy output yesterday was not recorded. Dialysis today removed 500 mL. GENERAL: The patient is seen awake, alert, oriented, comfortable in no acute distress on dialysis receiving her maintenance treatment from the internal jugular PermCath. Extraocular muscles are intact. Tongue is moist. Neck is supple. The bilateral upper extremities are swollen. There is a wound VAC present on the left upper extremity surgical site. There is peripheral IV present in the right upper extremity. CARDIAC: S1, S2, regular rate and rhythm. LUNGS: Clear to auscultation bilaterally. No crackle, rale or wheeze. ABDOMEN: Soft, nontender. There is an ostomy present. EXTREMITIES: The lower extremities are negative for edema. NEUROLOGIC: She is oriented. No focal deficits. PSYCHIATRIC: Appropriate mood and affect. LABORATORY: White count 8.6, hemoglobin 9.8, sodium 134, potassium 5.1, bicarbonate 18. IMAGING: Venous Duplex of the upper extremities done November 23 shows a nonocclusive thrombus associated with the valve in the subclavian vein and this is likely secondary to the tunneled dialysis catheter. INPATIENT MEDICATIONS: She continues on Zyvox and Zosyn. The remainder of medications are unchanged from prior. PROBLEMS: 1. End-stage renal disease on hemodialysis on Friday, Friday, Friday maintenance schedule. The patient is dialyzed today with 500 mL of fluid removed. She usually has a minimal to no fluid removal. Her electrolytes are acceptable and no change is being made to her chronic dialysis prescription. 2. Right upper extremity swelling. It is likely secondary to the nonocclusive venous thrombosis associated with the tunneled PermCath. This has been previously discussed with vascular surgeon and anticoagulation is not felt to be necessary at this time. 3. Infected left upper arm arteriovenous graft status post excision, now with wound VAC. She continues on Zyvox and Zosyn. A repeat culture of the left arm graft shows a few Streptococcus mitis. She continues on Zosyn and Zyvox and duration will be as per vascular surgery. 4. Anemia secondary to end-stage renal disease, blood loss, multiple myeloma. Her hemoglobin is acceptable at this time at 9.8 and we will continue with complete blood count (CBC) monitoring and transfusion as needed. 5. Hypotension. Blood pressures are acceptable on midodrine and she tolerates her dialysis treatments without significant hypotension at hemodialysis.
--- NOTE | 2018-11-23 22:43 | IPN ---
DATE: 11/22/2018 SUBJECTIVE: Yoana is seen and examined this morning at the bedside. She denies any acute overnight events or issues. She felt better after she had the blood transfusion. Denies shortness of breath. Dr. Thomas put a wound VAC in her surgical site today. VITAL SIGNS: Temperature 97.8, pulse 65, respiratory rate 18, blood pressure 127/61, saturating 95% on room air. Intake yesterday was 1550, ostomy output was 1100. Weight on the bed scale today is 51.2 kg. General: The patient is seen lying in bed, awake, alert, oriented, pleasant, in no acute distress. Extraocular muscles are intact. Tongue is moist. Mucous membranes are moist. Neck is supple. She has a right internal jugular (IJ) tunneled hemodialysis catheter. Cardiac: S1, S2, regular rate. No edema of the lower extremities. Respiratory: Chest is clear to auscultation bilaterally. No rales or rhonchi. Abdomen is soft and nontender. There is a right lower quadrant ostomy. Musculoskeletal: The left upper arm arteriovenous (AV) graft excision site is noted to now have a wound VAC in place. There is some mild edema of both her arms. On the left, it is likely related to the surgical site and on the right, it is probably related to the peripheral IV. Neurologic: She is oriented. No focal deficit. Skin: Normal temperature and turgor. LABORATORY: White count 5.3, hemoglobin 9.9. Sodium 136, potassium 5.1, bicarbonate 18. INPATIENT MEDICATIONS: Patient continues on Zyvox and Zosyn. Her pain medications were adjusted per the primary team. Remainder of medications are unchanged from prior. PROBLEMS: 1. End-stage renal disease, on hemodialysis on Friday, Friday, Friday maintenance schedule. She will be dialyzed tomorrow. Her PermCath is in good use. Her electrolytes are acceptable. She has some mild edema of both arms, which was new and likely related to the surgical site on the left arm and related to the peripheral IV access in the right arm and non-occlusive thrombosis. 2. Infected left upper arm AV graft, status post excision, now with wound VAC. Continues on Zyvox and Zosyn. The most recent cultures from the surgical site are pending. Prior culture on 11/13/2018 grew Clostridium perfringens. Duration of antibiotics is deferred to vascular surgery. There is no fever and no leukocytosis. 3. Anemia secondary to end-stage renal disease, blood loss and multiple myeloma and chemotherapy. Continue with CBC monitoring, and I would transfuse for a hemoglobin less than 9, patient becomes symptomatic and short of breath with anemia. Presently, hemoglobin is acceptable. 4. Multiple myeloma with relapse. She continues on dexamethasone and Ninlaro as per outpatient regimen. MTDD
[2018-11-24] MEDS: LINEZOLID 600 MG in APPROPRIATE DILUENT 1 EA IV SCH (00:28)
[2018-11-24 04:00] VITALS: BP 103/56
[2018-11-24 05:56] LABS: BASO % 0.1 % (0.0-1.0); EOS # 0.1 10^3/uL (0.0-0.50); HEMATOCRIT 26.4 % (36.0-47.0); LYMPH # 0.9 10^3/uL (1.5-4.5); LYMPH % 13.3 % (24.0-44.0); MEAN CORPUSCULAR HEMOGLOBIN 31.8 pg (27.0-33.0); MEAN CORPUSCULAR HGB CONC 34.1 g/dl (32.0-36.5); MEAN CORPUSCULAR VOLUME 93.3 fl (80.0-96.0); MONO # 0.5 10^3/uL (0.0-0.8); MONO % 7.2 % (0.0-5.0); NEUTROPHILS # 5.4 10^3/uL (1.8-7.7); NEUTROPHILS % 77.3 % (36.0-66.0); PLATELET COUNT, AUTOMATED 143 10^3/uL (150-450); RED BLOOD COUNT 2.83 10^6/uL (4.00-5.40)
[2018-11-24 05:58] LABS: CALCIUM LEVEL 7.6 MG/DL (8.8-10.2); CREATININE FOR GFR 3.76 MG/DL (0.55-1.30); GLOMERULAR FILTRATION RATE 12.6 (>39); PHOSPHORUS LEVEL 2.3 MG/DL (2.5-4.9); POTASSIUM SERUM 4.1 MEQ/L (3.5-5.1)
[2018-11-24] MEDS: LEVOTHYROXINE 50MCG TABLET (0.05MG) PO SCH (06:15)
[2018-11-24 08:00] VITALS: BP 115/55
[2018-11-24] MEDS: ACETAMINOPHEN TAB 650MG DOSE (2X325MG) PO PRN (08:45)
[2018-11-24] MEDS: DOCUSATE SODIUM 100 MG CAP PO SCH ×2 (08:45→20:26)
[2018-11-24] MEDS: (RENVELA) SEVELAMER **CARBONate** 800 MG TAB PO SCH (08:45)
[2018-11-24] MEDS: MIDODRINE 2.5 MG TAB PO SCH ×3 (08:45→17:13)
[2018-11-24] MEDS: VITAMIN D 1,000 INTERNATIONAL UNITS TABLET PO SCH (08:45)
[2018-11-24] MEDS: PANTOPRAZOLE 40MG INJ (PROTONIX) (C9113) IV SCH (08:46)
[2018-11-24 12:00] VITALS: BP 108/54
--- NOTE | 2018-11-24 15:59 | IPNPDOC ---
Subjective Date Seen The patient was seen on 11/24/18. Subjective Chief Complaint/HPI C/o LUE edema mildly improved, no longer has SOB after blood transfusion. Objective Physical Examination General Exam: Positive: Alert, Mild Distress Eye Exam: Positive: PERRLA, Conjunctiva & lids normal, EOMI ENT Exam: Positive: Atraumatic Neck Exam: Positive: Supple, +2 carotid pulse wo bruit Chest Exam: Positive: Clear to auscultation, Normal air movement; Negative: Rales, Rhonchi, Wheezing, Diminished, Other Heart Exam: Positive: Rate Normal, Regular Rhythm, Normal S1, Normal S2; Negative: Gallops, Murmurs, Rubs, Other Abdomen Exam: Positive: Normal bowel sounds, Soft; Negative: Tenderness, Mass, Hernia, Other Extremity Exam: Positive: Edema (LUE prox forearm dependent edema. distal hand: warm, no numbness/tingling or coldness, caprefill <3 sec), Normal pulses (radial and ulnar pulse palpable.); Negative: Clubbing, Cyanosis Neuro Exam: Positive: Normal Speech, Strength at 5/5 X4 ext, Cranial Nerves 3- 12 NL Psych Exam: Positive: Mental status NL, Mood NL, Oriented x 3 Assessment /Plan Assessment 1. POD #4, s/p infected LUE AVG removal now with wound vac. On Zyvox and Zosyn. Wound vac with minimal serosanguineous drainage. A repeat Cx of the left arm with a few Strept mitis. 2. Acute on chronic anemia, H&H 9.0/26.4 vs 9.8/29.3 ASx and no longer has SOB after PRBCs transfusion 3.. ESRD on HD 4. 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 5. Multiple myeloma in relapse per oncology. Plan/VTE VTE Prophylaxis Ordered?: Yes Plan Continue current management Continue IV Abx Activity as tolerated PT Eval & Tx Plan to DC home with wound vac tomorrow VS, I&O, 24H, Fishbone Vital Signs/I&O Vital Signs Date Time Temp Pulse Resp B/P (MAP) Pulse Ox O2 Delivery O2 Flow Rate FiO2 11/24/18 12:00 97.9 62 17 108/54 (72) 96 Room Air 11/23/18 13:10 97 11/21/18 04:00 2.0 I&O- Last 24 Hours up to 6 AM0 11/24/18 06:00 Intake Total 1320 ml Output Total 1100 ml Balance 220 ml Laboratory Data 24H LABS Laboratory Tests 2 11/24/18 05:06: Immature Granulocyte % (Auto) 1.1, White Blood Count 7.0, Red Blood Count 2.83L, Hemoglobin 9.0L, Hematocrit 26.4L, Mean Corpuscular Volume 93.3, Mean Corpuscular Hemoglobin 31.8, Mean Corpuscular Hemoglobin Concent 34.1, Red Cell Distribution Width 15.1H, Platelet Count 143L, Neutrophils (%) (Auto) 77.3H, Lymphocytes (%) (Auto) 13.3L, Monocytes (%) (Auto) 7.2H, Eosinophils (%) (Auto) 1.0, Basophils (%) (Auto) 0.1, Neutrophils # (Auto) 5.4, Lymphocytes # (Auto) 0.9L, Monocytes # (Auto) 0.5, Eosinophils # (Auto) 0.1, Basophils # (Auto) 0.0, Nucleated Red Blood Cells % (auto) 0.0, Anion Gap 10, Glomerular Filtration Rate 12.6L, Blood Urea Nitrogen 27H, Creatinine 3.76H, Sodium Level 137, Potassium Level 4.1, Chloride Level 104, Carbon Dioxide Level 23, Calcium Level 7.6L, Phosphorus Level 2.3L CBC/BMP Laboratory Tests 11/24/18 05:06 Red Blood Count 2.83 L, Mean Corpuscular Volume 93.3, Mean Corpuscular Hemoglobin 31.8, Mean Corpuscular Hemoglobin Concent 34.1, Red Cell Distribution Width 15.1 H, Neutrophils (%) (Auto) 77.3 H, Lymphocytes (%) (Auto) 13.3 L, Monocytes (%) (Auto) 7.2 H, Eosinophils (%) (Auto) 1.0, Basophils (%) (Auto) 0.1, Neutrophils # (Auto) 5.4, Lymphocytes # (Auto) 0.9 L, Monocytes # (Auto) 0.5, Eosinophils # (Auto) 0.1, Basophils # (Auto) 0.0, Calcium Level 7.6 L Microbiology Microbiology 11/17/18 Blood Culture - Final, Complete NO GROWTH AFTER 5 DAYS 11/17/18 Blood Culture - Final, Complete NO GROWTH AFTER 5 DAYS 11/20/18 Anaerobic Culture, Received Pending 11/20/18 Gram Stain - Final, Complete 11/20/18 Wound Culture - Final, Complete Streptococcus Mitis 11/20/18 Anaerobic Culture, Received Pending 11/20/18 Gram Stain - Final, Complete 11/20/18 Wound Culture - Final, Complete JASON SUN PA-C Nov 24, 2018 15:59
[2018-11-24 16:00] VITALS: BP 99/50
[2018-11-24 20:00] VITALS: BP 102/53
[2018-11-24] MEDS: NORCO, ANEXSIA 5/325MG TABLET (HYDROcodone/ACETAMINOPHEN) PO PRN (20:26)
--- NOTE | 2018-11-24 21:21 | IPN ---
DATE: 11/24/2018 SUBJECTIVE: Yoana is seen and examined this morning at the bedside. She denies any acute overnight events. She continues to have bilateral swelling of the upper extremities. She reports she also saw Dr. Thomas yesterday who felt that the right upper extremity swelling is due to the nonocclusive thrombus associated with the PermCath. She has not gotten out of bed in the past couple of days and so I am requesting physical therapy. VITAL SIGNS: Temperature 97.9, pulse 62, respiratory rate 17, blood pressure 108/54, saturating 96% on room air. Intake yesterday was 1020. Dialysis yesterday removed 500. Weight on the bed scale today is 51.4 kg. General: The patient is seen lying in bed, very pleasant and smiling, elderly female, in no acute distress. Extraocular muscles are intact. Tongue is moist. Mucous membranes are moist. There is some facial swelling. The neck is supple. There is a right internal jugular (IJ) tunneled hemodialysis catheter. There is right upper extremity edema. There is left upper extremity edema. There is a wound VAC in place in the surgical site. Cardiac: S1, S2, regular rate. No edema of the lower extremities. Respiratory: Lungs are clear to auscultation bilaterally. No rales or rhonchi. Abdomen is soft and nontender. There is a right lower quadrant ostomy. Musculoskeletal: The left upper extremity arteriovenous (AV) graft excision site has a wound VAC in place, and there is edema present in the left arm. There is also edema present in the right arm. Neurologic: She is oriented. No focal deficit. Skin: Normal temperature and turgor. LABORATORY: White count 7.0, hemoglobin 9.0, platelets 143. Sodium 137, potassium 4.1, phosphorus 2.3. INPATIENT MEDICATIONS: She continues on Zyvox and Zosyn, and I stopped her sevelamer. Remainder of medications are unchanged from prior. PROBLEMS: 1. End-stage renal disease, on hemodialysis on a Friday, Friday, Friday maintenance schedule. Next dialysis is tomorrow. Electrolytes are acceptable. Given her upper extremity swelling, we are removing some fluid on dialysis, although usually she does not have fluid removed. 2. Right upper extremity swelling. It is secondary to the nonocclusive venous thrombosis associated with the tunneled PermCath. It has been evaluated by vascular surgery who recommends conservative management without anticoagulation. She also has left upper extremity swelling, which is related to the surgical site and graft excision, and she has a wound VAC in place. 3. Infected left upper arm AV graft, status post excision, now with wound VAC. Continued on Zyvox and Zosyn. Repeat cultures showed a few Streptococcus mitis. Previous culture had grown Clostridium perfringens. She continues on Zosyn and Zyvox and duration is deferred to the vascular surgery team. 4. Anemia secondary to end-stage renal disease, blood loss, multiple myeloma. Hemoglobin is acceptable at 9, and she can be transfused as needed. 5. Hypotension. Blood pressures are acceptable on midodrine three times a day, and she tolerates her dialysis treatments without significant hypotension of hemodialysis.
[2018-11-24 23:59] VITALS: BP 107/52
[2018-11-25 04:00] VITALS: BP 122/60
[2018-11-25 05:40] LABS: BASO % 0.2 % (0.0-1.0); EOS # 0.1 10^3/uL (0.0-0.50); EOS % 1.9 % (0.0-3.0); HEMATOCRIT 27.7 % (36.0-47.0); HEMOGLOBIN 9.1 g/dl (12.0-15.5); LYMPH # 0.5 10^3/uL (1.5-4.5); LYMPH % 9.4 % (24.0-44.0); MEAN CORPUSCULAR HEMOGLOBIN 31.6 pg (27.0-33.0); MEAN CORPUSCULAR HGB CONC 32.9 g/dl (32.0-36.5); MEAN CORPUSCULAR VOLUME 96.2 fl (80.0-96.0); MONO # 0.4 10^3/uL (0.0-0.8); MONO % 8.2 % (0.0-5.0); NEUTROPHILS # 4.2 10^3/uL (1.8-7.7); NEUTROPHILS % 79.2 % (36.0-66.0); PLATELET COUNT, AUTOMATED 141 10^3/uL (150-450); RED BLOOD COUNT 2.88 10^6/uL (4.00-5.40); WHITE BLOOD COUNT 5.3 10^3/uL (4.0-10.0)
[2018-11-25 06:04] LABS: CREATININE FOR GFR 5.05 MG/DL (0.55-1.30)
[2018-11-25 06:05] LABS: CALCIUM LEVEL 8.2 MG/DL (8.8-10.2); POTASSIUM SERUM 4.4 MEQ/L (3.5-5.1)
[2018-11-25] MEDS: LEVOTHYROXINE 50MCG TABLET (0.05MG) PO SCH (06:12)
[2018-11-25] MEDS: MIDODRINE 2.5 MG TAB PO SCH ×3 (06:12→16:55)
[2018-11-25] MEDS: DOCUSATE SODIUM 100 MG CAP PO SCH ×3 (06:13→20:57)
[2018-11-25] MEDS: VITAMIN D 1,000 INTERNATIONAL UNITS TABLET PO SCH (06:13)
[2018-11-25] MEDS: PANTOPRAZOLE 40MG INJ (PROTONIX) (C9113) IV SCH (06:13)
[2018-11-25 08:00] VITALS: BP 138/60
[2018-11-25 12:00] VITALS: BP 138/66
[2018-11-25] MEDS: diphenhydrAMINE 25 MG CAP PO SCH (12:16)
[2018-11-25 16:00] VITALS: BP 118/56
--- NOTE | 2018-11-25 16:17 | IPNPDOC ---
Text Note Date of Service The patient was seen on 11/25/18. NOTE C/o: doing well, LUE swelling has improved. No other c/o. PE: VSS afebrile LUngs: CTAB Heart: RRR, Ext: LUE: wound vac in place, upper arm edema has improved but forearm remain unchanged, radial and ulnar pulses palpable, cap refill <3 sec A/p: Continue current management Pt will have HD today Plan to DC home with wound vac tomorrow VS,Fishbone, I+O VS, Fishbone, I+O Laboratory Tests 11/25/18 05:17 Red Blood Count 2.88 L, Mean Corpuscular Volume 96.2 H, Mean Corpuscular Hemoglobin 31.6, Mean Corpuscular Hemoglobin Concent 32.9, Red Cell Distribution Width 15.0 H, Neutrophils (%) (Auto) 79.2 H, Lymphocytes (%) (Auto) 9.4 L, Monocytes (%) (Auto) 8.2 H, Eosinophils (%) (Auto) 1.9, Basophils (%) (Auto) 0.2, Neutrophils # (Auto) 4.2, Lymphocytes # (Auto) 0.5 L, Monocytes # (Auto) 0.4, Eosinophils # (Auto) 0.1, Basophils # (Auto) 0.0, Calcium Level 8.2 L Vital Signs Date Time Temp Pulse Resp B/P (MAP) Pulse Ox O2 Delivery O2 Flow Rate FiO2 11/25/18 12:00 98.6 70 18 138/66 (90) 95 Room Air 11/23/18 13:10 97 11/21/18 04:00 2.0 I&O- Last 24 Hours up to 6 AM 11/25/18 06:00 Intake Total 1300 ml Output Total 350 ml Balance 950 ml JASON SUN PA-C Nov 25, 2018 16:16
[2018-11-25 20:00] VITALS: BP 120/59
--- NOTE | 2018-11-25 20:05 | IPNPDOC ---
Text Note Date of Service The patient was seen on 11/25/18. NOTE SUBJECTIVE: Ms. Escobedo was examined at bedside. She was pleasant, alert, conv ersant. She had no acute events overnight. She continues to be afebrile. Denies chest pain, denies nausea, denied vomiting. Denies shortness of breath, or difficulty breathing. She was evaluated by physical therapy yesterday, and noticed patient had mild decrease in bilateral lower extremity strength with transfers and ambulation. Physical therapy will continue working patient. She is scheduled for dialysis today. Subjective: VITAL SIGNS: See below General: Elderly female, pleasant female, lying comfortably in bed. ENT: Neck is supple, throat is moist, No JVD, There is a right internal jugular (IJ) tunneled hemodialysis catheter. Extremities: There is bilateral upper extremity edema, There is left upper extremity edema. There is a wound VAC in place in the surgical site on left upper e xtremity. Cardiac: S1, S2, regular rate. No edema of the lower extremities. Respiratory: Lungs are clear to auscultation bilaterally. No rales or rhonchi. Abdomen is soft and nontender. There is a right lower quadrant ostomy. Neurologic: She is oriented. No focal deficit. Skin: Normal temperature and turgor. PROBLEMS: 1. End-stage renal disease, on hemodialysis on a Friday, Friday, Friday maintenance schedule. She will be dialyzed today as part of her regular schedule. Predialysis laboratory values showed acceptable range electrolytes. She is euvolemic. 2. Right upper extremity swelling, secondary to the nonocclusive venous thrombosis associated with the tunneled PermCath. Followed by Dr. Thomas, who recommends conservative management without anticoagulation. She also has left upper extremity swelling, which is related to the surgical site and graft excision, and she has a wound VAC in place. 3. Infected left upper arm AV graft, status post excision, now with wound VAC. Zyvox and Zosyn on board for infection control. Repeat cultures showed a few Streptococcus mitis. Previous culture had grown Clostridium perfringens. Will defer further management to vascular surgery 4. Anemia secondary to end-stage renal disease, blood loss, multiple myeloma. Hemoglobin is acceptable at 9.1 with a hematocrit of 27.7. Will continue to monitor 5. Hypotension. Blood pressures are acceptable on midodrine three times a day, and she tolerates her dialysis treatments without significant hypotension of hemodialysis. She will be discharge tomorrow, and will follow up with vascular surgery VSRoxy, I+O VSRoxy, I+O Laboratory Tests 11/25/18 05:17 Red Blood Count 2.88 L, Mean Corpuscular Volume 96.2 H, Mean Corpuscular Hemoglobin 31.6, Mean Corpuscular Hemoglobin Concent 32.9, Red Cell Distribution Width 15.0 H, Neutrophils (%) (Auto) 79.2 H, Lymphocytes (%) (Auto) 9.4 L, Monocytes (%) (Auto) 8.2 H, Eosinophils (%) (Auto) 1.9, Basophils (%) (Auto) 0.2, Neutrophils # (Auto) 4.2, Lymphocytes # (Auto) 0.5 L, Monocytes # (Auto) 0.4, Eosinophils # (Auto) 0.1, Basophils # (Auto) 0.0, Calcium Level 8.2 L Vital Signs Date Time Temp Pulse Resp B/P (MAP) Pulse Ox O2 Delivery O2 Flow Rate FiO2 11/25/18 16:00 18 11/25/18 16:00 99.7 72 118/56 (76) 97 Room Air 11/23/18 13:10 97 11/21/18 04:00 2.0 I&O- Last 24 Hours up to 6 AM 11/25/18 06:00 Intake Total 1375 ml Output Total 350 ml Balance 1025 ml GME ATTESTATION GME ATTESTATION My faculty preceptor for this patient encounter was physically present during the encounter and was fully available. All aspects of the patient interview, examination, medical decision making process, and medical care plan development were reviewed and approved by the faculty preceptor. The faculty preceptor is aware and concurs with the plan as stated in the body of this note and will attest to such by his/her cosignature. LUANNE VALENZUELA DO Nov 25, 2018 20:05
[2018-11-25] MEDS: NORCO, ANEXSIA 5/325MG TABLET (HYDROcodone/ACETAMINOPHEN) PO PRN (20:56)
[2018-11-26] VITALS (7 sets, daily range): BP systolic 105–142; BP diastolic 52–71
[2018-11-26 05:15] LABS: EOS # 0.1 10^3/uL (0.0-0.50); EOS % 1.7 % (0.0-3.0); HEMATOCRIT 26.5 % (36.0-47.0); HEMOGLOBIN 8.8 g/dl (12.0-15.5); LYMPH # 0.4 10^3/uL (1.5-4.5); LYMPH % 12.3 % (24.0-44.0); MEAN CORPUSCULAR HEMOGLOBIN 31.9 pg (27.0-33.0); MEAN CORPUSCULAR HGB CONC 33.2 g/dl (32.0-36.5); MONO # 0.4 10^3/uL (0.0-0.8); MONO % 11.6 % (0.0-5.0); NEUTROPHILS # 2.2 10^3/uL (1.8-7.7); NEUTROPHILS % 73.7 % (36.0-66.0); PLATELET COUNT, AUTOMATED 130 10^3/uL (150-450); RED BLOOD COUNT 2.76 10^6/uL (4.00-5.40)
[2018-11-26 05:31] LABS: CALCIUM LEVEL 8.1 MG/DL (8.8-10.2); CREATININE FOR GFR 3.36 MG/DL (0.55-1.30); GLOMERULAR FILTRATION RATE 14.4 (>39); POTASSIUM SERUM 3.9 MEQ/L (3.5-5.1)
[2018-11-26] MEDS: LEVOTHYROXINE 50MCG TABLET (0.05MG) PO SCH (05:49)
[2018-11-26] MEDS: MIDODRINE 2.5 MG TAB PO SCH ×3 (08:42→16:00)
[2018-11-26] MEDS: VITAMIN D 1,000 INTERNATIONAL UNITS TABLET PO SCH (08:42)
[2018-11-26] MEDS: PANTOPRAZOLE 40MG INJ (PROTONIX) (C9113) IV SCH (08:44)
[2018-11-26] MEDS: DOCUSATE SODIUM 100 MG CAP PO SCH ×2 (09:00→21:00)
--- NOTE | 2018-11-26 14:55 | IPNPDOC ---
Text Note Date of Service The patient was seen on 11/26/18. NOTE C/o: doing well, LUE swelling has improved a lot. No other c/o. PE: VSS afebrile Lungs: CTAB Heart: RRR, PP: 2+ b/l Ext: LUE: wound vac in place with minimal serosanguineous drain, edema has mostly resolved, No Sx/S infection, radial and ulnar pulses palpable, cap refill <3 sec A/p: Continue current management Wound vac dressing changed today Wound vac set up Will have HD tomorrow Plan to DC home with wound vac Friday VS,Fishbone, I+O VS, Fishbone, I+O Laboratory Tests 11/26/18 04:52 Red Blood Count 2.76 L, Mean Corpuscular Volume 96.0, Mean Corpuscular Hemoglobin 31.9, Mean Corpuscular Hemoglobin Concent 33.2, Red Cell Distribution Width 14.6 H, Neutrophils (%) (Auto) 73.7 H, Lymphocytes (%) (Auto) 12.3 L, Monocytes (%) (Auto) 11.6 H, Eosinophils (%) (Auto) 1.7, Basophils (%) (Auto) 0.0, Neutrophils # (Auto) 2.2, Lymphocytes # (Auto) 0.4 L, Monocytes # (Auto) 0.4, Eosinophils # (Auto) 0.1, Basophils # (Auto) 0.0, Calcium Level 8.1 L Vital Signs Date Time Temp Pulse Resp B/P (MAP) Pulse Ox O2 Delivery O2 Flow Rate FiO2 11/26/18 08:00 99.2 67 18 130/66 (87) 96 Room Air 11/23/18 13:10 97 11/21/18 04:00 2.0 I&O- Last 24 Hours up to 6 AM 11/26/18 06:00 Intake Total 685 ml Output Total 1200 ml Balance -515 ml JASON SUN PA-C Nov 26, 2018 14:55
--- NOTE | 2018-11-26 16:58 | IPNPDOC ---
Text Note Date of Service The patient was seen on 11/26/18. NOTE SUBJECTIVE: Ms. Escobedo was examined at bedside. She continues to be as pleasant as ever. She had not acute complains, she remains afebrile.She continues to work with physical therapy, without any excess difficulties. She had dialysis yesterday and Subjective: VITAL SIGNS: See below General: Elderly female, pleasant, conversant, lying comfortably in bed, no acute complaints ENT: Neck is supple, No JVD, There is a right internal jugular (IJ) tunneled hemodialysis catheter. Extremities: Improved bilateral upper extremity edema, no tenderness to palpation, There is a wound VAC in place in the surgical site on left upper extremity. Cardiac: S1, S2, regular rate. Respiratory: Lungs are clear to auscultation bilaterally. No rales or rhonchi. Abdomen is soft and nontender. There is a right lower quadrant ostomy. Neurologic: She is oriented. No focal deficit. Skin: Normal temperature and turgor. PROBLEMS: 1. End-stage renal disease, on hemodialysis on a Friday, Friday, Friday maintenance schedule. Laboratory values are within normal limits. We'll continue to monitor. 2. Right upper extremity swelling, secondary to the nonocclusive venous thrombosis associated with the tunneled PermCath. Followed by Dr. Thomas, who recommends conservative management without anticoagulation. She also has left upper extremity swelling, which is related to the surgical site and graft excision, and she has a wound VAC in place. 3. Infected left upper arm AV graft, status post excision, now with wound VAC. She has completed Zyvox and Zosyn. She will be switched to by mouth Augmentin today. We'll defer management of antibiotic therapy to vascular surgery team 4. Anemia secondary to end-stage renal disease, blood loss, multiple myeloma. Hemoglobin is acceptable at 8.8 with a hematocrit of 26.5. Will continue to monitor. Patient gets symptomatic with hemoglobin lower than 8, consider transfusion at hemoglobin of 8. 5. Hypotension. Blood pressures are acceptable on midodrine three times a day, and she tolerates her dialysis treatments without significant hypotension of hemodialysis. VS,Fishbone, I+O VS, Fishbone, I+O Laboratory Tests 11/26/18 04:52 Red Blood Count 2.76 L, Mean Corpuscular Volume 96.0, Mean Corpuscular Hemoglobin 31.9, Mean Corpuscular Hemoglobin Concent 33.2, Red Cell Distribution Width 14.6 H, Neutrophils (%) (Auto) 73.7 H, Lymphocytes (%) (Auto) 12.3 L, Monocytes (%) (Auto) 11.6 H, Eosinophils (%) (Auto) 1.7, Basophils (%) (Auto) 0.0, Neutrophils # (Auto) 2.2, Lymphocytes # (Auto) 0.4 L, Monocytes # (Auto) 0.4, Eosinophils # (Auto) 0.1, Basophils # (Auto) 0.0, Calcium Level 8.1 L Vital Signs Date Time Temp Pulse Resp B/P (MAP) Pulse Ox O2 Delivery O2 Flow Rate FiO2 11/26/18 12:00 98.9 64 20 142/65 (90) 96 Room Air 11/23/18 13:10 97 11/21/18 04:00 2.0 I&O- Last 24 Hours up to 6 AM 11/26/18 06:00 Intake Total 685 ml Output Total 1200 ml Balance -515 ml GME ATTESTATION GME ATTESTATION My faculty preceptor for this patient encounter was physically present during the encounter and was fully available. All aspects of the patient interview, examination, medical decision making process, and medical care plan development were reviewed and approved by the faculty preceptor. The faculty preceptor is aware and concurs with the plan as stated in the body of this note and will attest to such by his/her cosignature. LUANNE VALENZUELA DO Nov 26, 2018 16:58
[2018-11-26] MEDS: NORCO, ANEXSIA 5/325MG TABLET (HYDROcodone/ACETAMINOPHEN) PO PRN (23:50)
[2018-11-27 03:56] VITALS: BP 115/53
[2018-11-27] MEDS: VITAMIN D 1,000 INTERNATIONAL UNITS TABLET PO SCH (05:35)
[2018-11-27] MEDS: LEVOTHYROXINE 50MCG TABLET (0.05MG) PO SCH (05:35)
[2018-11-27] MEDS: DOCUSATE SODIUM 100 MG CAP PO SCH ×2 (05:37→20:01)
[2018-11-27 05:40] LABS: BASO % 0.3 % (0.0-1.0); EOS # 0.1 10^3/uL (0.0-0.50); EOS % 1.9 % (0.0-3.0); HEMATOCRIT 25.6 % (36.0-47.0); HEMOGLOBIN 8.6 g/dl (12.0-15.5); LYMPH # 0.5 10^3/uL (1.5-4.5); LYMPH % 16.7 % (24.0-44.0); MEAN CORPUSCULAR HEMOGLOBIN 32.5 pg (27.0-33.0); MEAN CORPUSCULAR HGB CONC 33.6 g/dl (32.0-36.5); MEAN CORPUSCULAR VOLUME 96.6 fl (80.0-96.0); MONO # 0.4 10^3/uL (0.0-0.8); MONO % 12.2 % (0.0-5.0); NEUTROPHILS # 2.1 10^3/uL (1.8-7.7); NEUTROPHILS % 68.6 % (36.0-66.0); PLATELET COUNT, AUTOMATED 128 10^3/uL (150-450); RED BLOOD COUNT 2.65 10^6/uL (4.00-5.40); WHITE BLOOD COUNT 3.1 10^3/uL (4.0-10.0)
[2018-11-27 06:03] LABS: CALCIUM LEVEL 8.3 MG/DL (8.8-10.2); CREATININE FOR GFR 4.77 MG/DL (0.55-1.30); GLOMERULAR FILTRATION RATE 9.6 (>39); POTASSIUM SERUM 4.1 MEQ/L (3.5-5.1)
[2018-11-27] MEDS: diphenhydrAMINE 25 MG CAP PO SCH (07:59)
[2018-11-27] MEDS: MIDODRINE 2.5 MG TAB PO SCH ×3 (08:00→16:00)
[2018-11-27 12:00] VITALS: BP 130/66
[2018-11-27] MEDS ORDERED: HEPARIN 1,000 UNITS/ML 10ML VIAL (FOR RADIOLOGY& DIALYSIS ONLY) XX ONE (12:15)
[2018-11-27] MEDS ORDERED: HEPARIN 1,000 UNITS/ML 10ML VIAL (FOR RADIOLOGY& DIALYSIS ONLY) IV ONE (12:15)
[2018-11-27] MEDS: PANTOPRAZOLE 40MG INJ (PROTONIX) (C9113) IV SCH (14:00)
--- NOTE | 2018-11-27 15:46 | IPNPDOC ---
Text Note Date of Service The patient was seen on 11/27/18. NOTE Pt has no c/o. Has tep 101 last night, 97.5 this morning. Attempted to change the wound vac dressing yesterday w/o success since the black foam adhered to the bottom of the wound. wound was dressed sterilely. PE: VSS afebrile Lungs: CTAB Heart: RRR Ext: LUE: forearm near elbow swollen, wound edge mildly erythematous. the black foam was treated with NS but still stuck to the bottom of the wound. Lab: Leukocytopenia 3.1, H&H 8.6/25.6 stable. A/p: New wound vac placed over the wound. Augmentin 875-125 mg 1 tab bid Stay in hospital for weekend. VS,Fishbone, I+O VS, Fishbone, I+O Laboratory Tests 11/27/18 04:52 Red Blood Count 2.65 L, Mean Corpuscular Volume 96.6 H, Mean Corpuscular Hemoglobin 32.5, Mean Corpuscular Hemoglobin Concent 33.6, Red Cell Distribution Width 14.6 H, Neutrophils (%) (Auto) 68.6 H, Lymphocytes (%) (Auto) 16.7 L, Monocytes (%) (Auto) 12.2 H, Eosinophils (%) (Auto) 1.9, Basophils (%) (Auto) 0.3, Neutrophils # (Auto) 2.1, Lymphocytes # (Auto) 0.5 L, Monocytes # (Auto) 0.4, Eosinophils # (Auto) 0.1, Basophils # (Auto) 0.0, Calcium Level 8.3 L Vital Signs Date Time Temp Pulse Resp B/P (MAP) Pulse Ox O2 Delivery O2 Flow Rate FiO2 11/27/18 12:00 98.8 71 18 130/66 (87) 97 Room Air 11/23/18 13:10 97 11/21/18 04:00 2.0 I&O- Last 24 Hours up to 6 AM 11/27/18 06:00 Intake Total 1080 ml Output Total 1875 ml Balance -795 ml JASON SUN PA-C Nov 27, 2018 15:46
[2018-11-27 16:15] VITALS: BP 138/70
[2018-11-27] MEDS: NORCO, ANEXSIA 5/325MG TABLET (HYDROcodone/ACETAMINOPHEN) PO PRN (19:22)
[2018-11-27 20:00] VITALS: BP 139/60
[2018-11-27] MEDS: AUGMENTIN 500 MG TAB PO SCH (20:00)
[2018-11-28] VITALS (7 sets, daily range): BP systolic 111–144; BP diastolic 55–80
[2018-11-28] MEDS: NORCO, ANEXSIA 5/325MG TABLET (HYDROcodone/ACETAMINOPHEN) PO PRN (00:16)
[2018-11-28] MEDS: LEVOTHYROXINE 50MCG TABLET (0.05MG) PO SCH (06:28)
[2018-11-28] MEDS: MIDODRINE 2.5 MG TAB PO SCH ×2 (08:00→12:00)
[2018-11-28] MEDS: PANTOPRAZOLE 40MG INJ (PROTONIX) (C9113) IV SCH (08:36)
[2018-11-28] MEDS: VITAMIN D 1,000 INTERNATIONAL UNITS TABLET PO SCH (08:37)
[2018-11-28] MEDS: DOCUSATE SODIUM 100 MG CAP PO SCH ×2 (08:37→20:32)
[2018-11-28] MEDS ORDERED: MIDAZOLAM INJ 2 MG/2 ML VIAL (J2250) As Ordered ONE (11:32)
[2018-11-28] MEDS ORDERED: PROPOFOL 200 MG/20 ML VIAL As Ordered ONE ×2 (11:33→13:24)
[2018-11-28] MEDS ORDERED: fentaNYL 100 MCG/2 ML INJECTION (J3010) As Ordered ONE (11:33)
[2018-11-28] MEDS ORDERED: LIDOCAINE 2% INJ 100 MG/5 ML SDV (FOR ANES.) As Ordered ONE (11:33)
--- NOTE | 2018-11-28 12:48 | IPN ---
DATE: 11/27/2018 SUBJECTIVE: Patient seen and examined this morning in hemodialysis, receiving her maintenance treatment, no acute issues or events reported. She is for probable discharge home tomorrow after her wound VAC has been removed. VITAL SIGNS: Temperature 99.1, pulse 79, respiratory rate 18, blood pressure 139/60, saturating 97% on room air. Intake today was 1420, dialysis today removed 1000. Stool and urine output was 1000, net negative 580 mL. Weight on the bed scale today is 48.2 kg. General: The patient is seen in the hemodialysis unit, awake, alert, oriented, comfortable, in no acute distress. Extraocular muscles are intact. Tongue is moist Neck is supple. The right internal jugular (IJ) tunneled hemodialysis catheter is in use. Extremities: The left upper extremity edema is improved. The wound VAC is partially removed. The right upper extremity remains swollen. There is some facial puffiness as well. Cardiac: S1, S2, regular rate. Lungs are clear to auscultation bilaterally. No crackles, rales, or rhonchi. Abdomen is soft and nontender. There is a right lower quadrant ostomy. The lower extremities have no edema. Neurologic: She is oriented. No focal deficit. LABORATORY: White count 3.1, hemoglobin 8.6. Sodium 139, potassium 4.1. INPATIENT MEDICATIONS: Primary team has switched her antibiotic to Augmentin. Remainder of medications are unchanged from prior. PROBLEMS: 1. End-stage renal disease, on hemodialysis on a Friday, Friday, Friday maintenance schedule. Usually she is dialyzed for clearance without ultrafiltration. However, given her upper extremity edema, we are removing one liter with dialysis today. Her PermCath is in good use. Her electrolytes are acceptable, and she is tolerating her treatment without issue. 2. Right upper extremity swelling secondary to nonocclusive venous thrombosis associated with a tunneled PermCath. Discussed with vascular surgery who recommended conservative management without anticoagulation. There is also left upper extremity swelling, which is improving and which is related to the surgical site and graft excision. 3. Infection of the left upper arm arteriovenous (AV) graft, status post excision with prior cultures growing Streptococcus mitis and Clostridium perfringens. She received a week of Zyvox and Zosyn and now this has been switched to Augmentin per the vascular team. 4. Anemia secondary to end-stage renal disease, blood loss, multiple myeloma. Hemoglobin is 8.6 today. The patient usually does become symptomatic when her hemoglobin is in the 8s or lower; hence, I am transfusing her one unit of packed red blood cells today. 5. Hypotension. Blood pressures are acceptable, and she continues on her usual midodrine.
[2018-11-28] MEDS ORDERED: ONDANSETRON 4MG/2ML VIAL (J2405) As Ordered ONE (13:23)
[2018-11-28] MEDS ORDERED: dexameTHASONE 4 MG/ML 1ML VIAL (J1100) As Ordered ONE (13:43)
[2018-11-28] MEDS ORDERED: NORCO, ANEXSIA 5/325MG TABLET (HYDROcodone/ACETAMINOPHEN) PO PRN (14:30)
[2018-11-28] MEDS ORDERED: ONDANSETRON 4MG/2ML VIAL (J2405) IV PRN (14:30)
[2018-11-28] MEDS: AUGMENTIN 500 MG TAB PO SCH (20:25)
--- NOTE | 2018-11-28 20:36 | IPN ---
DATE: 11/28/2018 Mrs. Turner is seen this morning on her bedside. She is nothing by mouth and is anticipating going to the operating room this morning for left arm wound exploration and possible removal of a wound vacuum-assisted closure (VAC) dressing. She has some edema on her right arm but denies any dyspnea or chest pain. She has no fever or chills. She was dialyzed yesterday, which she tolerated well. PHYSICAL EXAMINATION: Temperature 98.0 degrees Fahrenheit, heart rate 92 per minute, respiratory rate 17 per minute., blood pressure 142/60 mm of mercury, and oxygen saturation 96% on room air. Her head is atraumatic. Face is mildly edematous and neck veins are moderately elevated. She has no oral thrush or ulcers. Heart sounds are regular, and lungs sound clear to auscultation. Abdomen is soft and nontender. Bowel sounds are normal. Extremities have no cyanosis or clubbing. On the left arm she has wound VAC dressing. There is mild edema of the right upper extremity. There is no edema on the lower extremities. Neurologically she is awake, alert, and oriented times three. She did not have any new labs done today. PROBLEMS: 1. End-stage renal disease. The patient was dialyzed and will be scheduled for next hemodialysis on Friday. At this point, there is no emergent indication for dialysis today. Her electrolytes were normal yesterday. 2. Anemia, related to ongoing infection and end-stage renal disease. Her complete blood count (CBC) was done yesterday, and anemia was stable. If she stays in the hospital, then we will recheck her labs tomorrow. At this point, there is no emergent indication for transfusion today. She was given 1 unit of packed red blood cells (RBC) yesterday during dialysis with a total transfusion of 7 units during this admission. 3. Left arm wound with wound VAC dressing. The patient is scheduled for operating room today for removal of sponge from her arm and removal of the wound VAC dressing. 4. Multiple myeloma. She has been on chemotherapy for relapse of multiple myeloma, which is currently on hold due to ongoing infection. She is still receiving dexamethasone 12 mg on Sundays. 5. Chronic hypotension. Her blood pressure is much better and, in fact, somewhat on the high side. I am going to hold her midodrine. MTDD
[2018-11-29 00:06] VITALS: BP 111/61
[2018-11-29] MEDS: NORCO, ANEXSIA 5/325MG TABLET (HYDROcodone/ACETAMINOPHEN) PO PRN ×2 (00:06→20:38)
[2018-11-29 04:00] VITALS: BP 116/57
[2018-11-29 05:41] LABS: HEMATOCRIT 29.7 % (36.0-47.0); HEMOGLOBIN 9.8 g/dl (12.0-15.5); MEAN CORPUSCULAR HEMOGLOBIN 31.6 pg (27.0-33.0); MEAN CORPUSCULAR VOLUME 95.8 fl (80.0-96.0); PLATELET COUNT, AUTOMATED 131 10^3/uL (150-450); WHITE BLOOD COUNT 4.9 10^3/uL (4.0-10.0)
[2018-11-29] MEDS: LEVOTHYROXINE 50MCG TABLET (0.05MG) PO SCH (05:46)
[2018-11-29 06:01] LABS: ALBUMIN 2.6 GM/DL (3.2-5.2); CALCIUM LEVEL 8.5 MG/DL (8.8-10.2); CREATININE FOR GFR 4.76 MG/DL (0.55-1.30); GLOMERULAR FILTRATION RATE 9.6 (>39); PHOSPHORUS LEVEL 2.9 MG/DL (2.5-4.9); POTASSIUM SERUM 4.3 MEQ/L (3.5-5.1)
[2018-11-29 08:00] VITALS: BP 149/68
[2018-11-29] MEDS: PANTOPRAZOLE 40MG INJ (PROTONIX) (C9113) IV SCH (08:44)
[2018-11-29] MEDS: VITAMIN D 1,000 INTERNATIONAL UNITS TABLET PO SCH (08:45)
[2018-11-29] MEDS: DOCUSATE SODIUM 100 MG CAP PO SCH ×2 (08:45→20:38)
[2018-11-29 11:53] VITALS: BP 139/63
[2018-11-29 16:00] VITALS: BP 130/52
[2018-11-29 20:00] VITALS: BP 138/74
[2018-11-29] MEDS: AUGMENTIN 500 MG TAB PO SCH (20:37)
[2018-11-30] VITALS (7 sets, daily range): BP systolic 127–141; BP diastolic 62–77
[2018-11-30] MEDS: DOCUSATE SODIUM 100 MG CAP PO SCH ×2 (01:20→20:11)
--- NOTE | 2018-11-30 05:41 | IPN ---
DATE OF VISIT: 11/29/2018 HISTORY OF PRESENT ILLNESS: Ms. Escobedo is seen this morning on her bedside. She is in good spirits and feels well. She underwent surgery for her left arm wound yesterday and still has a wound vacuum assisted closure (VAC) dressing. She denies any fever, chills, nausea or vomiting. She has known history of end-stage renal disease and multiple myeloma. She was dialyzed on Friday and will be scheduled for next hemodialysis tomorrow. PHYSICAL EXAMINATION: VITAL SIGNS: Temperature 98.3 degrees Fahrenheit, heart rate 70 per minute and respiratory rate 18 per minute. Blood pressure 139/63 mmHg and oxygen saturation 98% on room air. HEAD: Her head is atraumatic. NECK: Neck is supple and jugular venous distention (JVD) is moderately elevated. HEART: Heart sounds are regular. LUNGS: Clear to auscultation. ABDOMEN: Soft and nontender and bowel sounds are normal. EXTREMITIES: No cyanosis or clubbing. Left arm wound is covered with wound vac dressing which is leaking from the proximal hand. NEUROLOGIC: She is awake, alert and oriented times three. LABORATORY VALUES: Today's labs show WBC count 4.9, hemoglobin 9.8 and hematocrit 29.7. Sodium 138, potassium 4.3, CO2 17, BUN 34 and creatinine 4.76. PROBLEMS: 1. End-stage renal disease. The patient is regularly dialyzed on Friday, Friday and Friday schedule. She was last dialyzed on Friday and we will plan to dialyze her again tomorrow. 2. Metabolic acidosis. She does have mild metabolic acidosis related to her end-stage renal disease and multiple myeloma. No urgent intervention is indicated at this point and we will anticipate improvement with her next hemodialysis tomorrow. Her renal profile will be checked anyway tomorrow morning. 3. Anemia. Her anemia is multifactorial in the setting of multiple myeloma, end-stage renal disease and ongoing infection in her left arm. She was transfused during last dialysis and anemia has improved. 4. Multiple myeloma. The patient has been on chemotherapy which is currently on hold due to acute medical problems. We will resume it once she is out of the hospital.
[2018-11-30] MEDS: VITAMIN D 1,000 INTERNATIONAL UNITS TABLET PO SCH (05:54)
[2018-11-30] MEDS: PANTOPRAZOLE 40MG INJ (PROTONIX) (C9113) IV SCH (05:54)
[2018-11-30] MEDS: LEVOTHYROXINE 50MCG TABLET (0.05MG) PO SCH (05:54)
[2018-11-30] MEDS: diphenhydrAMINE 25 MG CAP PO SCH (07:58)
[2018-11-30 10:39] LABS: HEMATOCRIT 29.6 % (36.0-47.0); HEMOGLOBIN 9.9 g/dl (12.0-15.5); MEAN CORPUSCULAR HEMOGLOBIN 32.8 pg (27.0-33.0); MEAN CORPUSCULAR HGB CONC 33.4 g/dl (32.0-36.5); PLATELET COUNT, AUTOMATED 144 10^3/uL (150-450); RED BLOOD COUNT 3.02 10^6/uL (4.00-5.40); WHITE BLOOD COUNT 7.3 10^3/uL (4.0-10.0)
[2018-11-30 10:42] LABS: ALBUMIN 2.7 GM/DL (3.2-5.2); CALCIUM LEVEL 8.7 MG/DL (8.8-10.2); CREATININE FOR GFR 5.44 MG/DL (0.55-1.30); GLOMERULAR FILTRATION RATE 8.2 (>39); PHOSPHORUS LEVEL 2.8 MG/DL (2.5-4.9); POTASSIUM SERUM 4.3 MEQ/L (3.5-5.1)
--- NOTE | 2018-11-30 11:25 | IPN ---
DATE: 11/30/2018 Ms. Escobedo is seen this morning during hemodialysis. She is feeling better and denies any dyspnea, chest pain, nausea or vomiting. Her blood pressure has been stable even though she is not receiving midodrine anymore. I felt that she was somewhat volume overloaded so we are trying to remove about 1.5 liters of fluid today. Her left arm wound has a wound Vac dressing since surgery over the weekend. On physical examination, temperature 97.5 degrees Fahrenheit, heart rate 64 per minute and respiratory rate 16 per minute. Blood pressure 140/65 mmHg and oxygen saturation 97% on room air. Her head is atraumatic. Neck is supple and jugular venous distention (JVD) is mildly elevated. We are trying to remove about 1.5 liters fluid. Lungs sounds are clear to auscultation. Heart sounds are regular. Abdomen: Soft and nontender. Extremities without any cyanosis or clubbing. Today's labs show WBC count 7.3, hemoglobin 9.9 and hematocrit to 29.6. Platelets 144. Sodium 138, potassium 4.3, CO2 16, BUN 49 and creatinine 5.44. PROBLEMS: 1. End-stage renal disease. The patient is being dialyzed and she is tolerating dialysis treatment very well. 2. Metabolic acidosis. Her acidosis is related to end-stage renal disease and multiple myeloma. It is likely to correct with dialysis today. Would recheck her chemistry tomorrow. 3. Anemia. She was transfused last week and anemia has been stable since then. No other intervention is indicated. 4. Multiple myeloma. Currently her chemotherapy is on hold. She will follow up with oncology as an outpatient after discharge. 5. Left arm wound following removal of infected graft. The patient has a wound Vac dressing and is likely to go home with it. She is currently afebrile and does not need any antibiotics.
[2018-11-30] MEDS ORDERED: HEPARIN 1,000 UNITS/ML 10ML VIAL (FOR RADIOLOGY& DIALYSIS ONLY) XX ONE (11:45)
[2018-11-30] MEDS ORDERED: HEPARIN 1,000 UNITS/ML 10ML VIAL (FOR RADIOLOGY& DIALYSIS ONLY) IV ONE (11:45)
[2018-11-30] MEDS: NORCO, ANEXSIA 5/325MG TABLET (HYDROcodone/ACETAMINOPHEN) PO PRN (19:06)
[2018-11-30] MEDS: AUGMENTIN 500 MG TAB PO SCH (20:11)
[2018-12-01 00:35] VITALS: BP 100/51
[2018-12-01 04:13] VITALS: BP 117/57
[2018-12-01] MEDS: LEVOTHYROXINE 50MCG TABLET (0.05MG) PO SCH (05:51)
[2018-12-01 08:00] VITALS: BP 123/66
[2018-12-01] MEDS: PANTOPRAZOLE 40MG INJ (PROTONIX) (C9113) IV SCH (08:38)
[2018-12-01] MEDS: VITAMIN D 1,000 INTERNATIONAL UNITS TABLET PO SCH (08:38)
[2018-12-01] MEDS: DOCUSATE SODIUM 100 MG CAP PO SCH (08:38)
--- NOTE | 2018-12-01 11:46 | IPNPDOC ---
Text Note Date of Service The patient was seen on 12/01/18. NOTE Ms. Escobedo was examined at bedside. She has no acute complaints. She was afebrile overnight. She denies chest pain, no vomiting, no SOB. She was pleasant and resting comfortably in bed. She had dialysis yesterday and 1.5 liter of fluid was removed. She tolerated the procedure without an adverse events. Subjective Vitals: See below Her head is atraumatic. Neck is supple, without JVD), no thyromegaly Lungs: Clear to auscultate, no wheezing or rhonchi Heart sounds are regular. no murmurs Abdomen: Soft and nontender. Extremities without any cyanosis or clubbing. Vac vacuum on left upper extrimety Labs No new labs today Yesterday Labs show WBC count 7.3, hemoglobin 9.9 and hematocrit to 29.6. Platelets 144. Sodium 138, potassium 4.3, CO2 16, BUN 49 and creatinine 5.44. PROBLEMS: 1. End-stage renal disease. Regular Dialysis on Friday, friday and friday 2. Metabolic acidosis. Secondary to end-stage renal disease and multiple myeloma. Managed with dialysis 3. Anemia. Status post blood transfusion on 11/27/18. Last measure hemoglobin was 9.9 and hematocrit is 29.6. 4. Multiple myeloma. Currently her chemotherapy is on hold. She will follow up with oncology as an outpatient after discharge. 5. Left arm wound, following removal of an infected graft. Currently has a wound Vac dressing and is likely to go home with it. She is currently afebrile, continues on amoxicillin. Managed by Dr. Thomas VSRoxy, I+O VSRoxy, I+O Vital Signs Date Time Temp Pulse Resp B/P (MAP) Pulse Ox O2 Delivery O2 Flow Rate FiO2 12/01/18 08:00 98.2 70 18 123/66 (85) 96 Room Air l I&O- Last 24 Hours up to 6 AM 12/01/18 06:00 Intake Total 1800 ml Output Total 2250 ml Balance -450 ml GME ATTESTATION GME ATTESTATION My faculty preceptor for this patient encounter was physically present during the encounter and was fully available. All aspects of the patient interview, examination, medical decision making process, and medical care plan development were reviewed and approved by the faculty preceptor. The faculty preceptor is aware and concurs with the plan as stated in the body of this note and will attest to such by his/her cosignature. LUANNE VALENZUELA DO Dec 01, 2018 11:46
[2018-12-01 12:00] VITALS: BP 130/56
[2018-12-01] MEDS ORDERED: AMOX500T2 PO (14:10)
--- NOTE | 2018-12-01 14:15 | DS.PDOC ---
Discharge Summary General Date of Admission Nov 12, 2018 at 17:17 Date of Discharge 12/01/2018 Discharge Summary PROCEDURES PERFORMED DURING STAY: Left upper arm AV graft revision and removal. ADMITTING DIAGNOSES: 1. Infected left upper arm AV graft, end-stage renal disease. DISCHARGE DIAGNOSES: 1. Infected left upper arm AV graft, end-stage renal disease. COMPLICATIONS/CHIEF COMPLAINT: Short Of Breath/Bleeding Fistula. HISTORY OF PRESENT ILLNESS: Patient is a 73-year-old female with end-stage renal disease with a thrombosed graft which required revision multiple times and subsequent removal due to infection. HOSPITAL COURSE: She was admitted and underwent revision of her graft and subsequent removal of the graft with multiple wound dressing changes and subsequent VAC placement. Patient is now stable and will be discharged home with a VAC dressing in place. DISCHARGE MEDICATIONS: Please see below. ALLERGIES: Please see below. PHYSICAL EXAMINATION ON DISCHARGE: VITAL SIGNS: Please see below. GENERAL: No apparent distress HEENT: Normal NECK: Supple with no carotid bruits CARDIOVASCULAR EXAMINATION: Regular rate and rhythm RESPIRATORY EXAMINATION: Clear to auscultation ABDOMINAL EXAMINATION: Soft nontender nondistended EXTREMITIES: Warm and well-perfused. Left upper extremity wound is clean with a VAC dressing in place. SKIN: Warm and well-perfused NEUROLOGICAL EXAMINATION: No focal deficits PSYCHIATRIC EXAMINATION: Normal LABORATORY DATA: Please see below. IMAGING: None PROGNOSIS: Good ACTIVITY: As tolerated. DIET: Renal diet DISCHARGE PLAN: Discharged to home with VAC dressing changes Friday and Friday. DISPOSITION: . DISCHARGE INSTRUCTIONS: 1. Follow-up in the office in 7-10 days.. ITEMS TO FOLLOWUP ON ON OUTPATIENT: 1. New creation of access for hemodialysis. DISCHARGE CONDITION: Stable. TIME SPENT ON DISCHARGE: Greater than 45 minutes. Vital Signs/I&Os Vital Signs Date Time Temp Pulse Resp B/P (MAP) Pulse Ox O2 Delivery O2 Flow Rate FiO2 12/01/18 12:00 97.8 70 18 130/56 (80) 98 Room Air I&O- Last 24 Hours up to 6 AM 12/01/18 06:00 Intake Total 1800 ml Output Total 2250 ml Balance -450 ml Discharge Medications Scheduled (Restasis) 0.05 % Emu, 1 DROP OU BID, (Reported) (Ensure) 1 Liq Liq, 1 DOSE PO TID, (Reported) TAKES IN BETWEEN MEALS. Amoxicillin/Clavulanate Potas (Amoxicillin/Clavulanate P 500-125 mg) 1 Tab Tab, 500 MG PO Q24H Cholecalciferol (Vitamin D-3) 2,000 Unit Tab, 2,000 UNIT PO DAILY, (Reported) Dexamethasone (Dexamethasone) 4 Mg Tab, 12 MG PO ASDIRECTED, (Reported) TAKES ON DAYS 1,8,15,22 OF CYCLE. LAST DOSE WAS ON DAY 1 OF CYCLE. Diphenhydramine HCl (Benadryl Allergy) 25 Mg Cap, 25 MG PO 3XW, (Reported) TAKES PRIOR TO DIALYSIS M,W,F Ixazomib Citrate (Ninlaro) 3 Mg Cap, 3 MG PO ASDIRECTED, (Reported) TAKES ON DAY 1,8,15 OF 22 DAY CYCLE. LAST DOSE WAS DAY 1 OF CYCLE Levothyroxine Sodium (Unithroid Direct) 50 Mcg Tab, 50 MCG PO DAILY, (Reported) Midodrine (Midodrine HCl) 2.5 Mg Tab, 2.5 MG PO TID, (Reported) Sevelamer Carbonate (Renvela) 800 Mg Tab, 1,600 MG PO WM, (Reported) Sodium Polystyrene Sulfonate (Kionex) 15 Gm/60 Ml Teena, 60 ML PO ASDIRECTED, (Reported) PATIENT ONLY TAKES IF DIRECTED BY DOCTOR. Scheduled PRN (Tylenol Pm Extra Strength 500-25 mg) 1 Tab Tab, 2 TAB PO QHS PRN for PAIN, (Reported) Acetaminophen (Apap) 325 Mg Tab, 650 MG PO Q6H PRN for PAIN, (Reported) Acetaminophen/Hydrocodone ([place] 5-325 mg) 1 Tab Tab, 2 TAB PO Q4H PRN for PAIN, (Reported) Allergies Coded Allergies: Vancomycin (Verified Allergy, Intermediate, RASH/ITCHING, 11/10/18) Scout Thomas MD Dec 01, 2018 14:15
--- NOTE | 2018-12-30 17:25 | RO ---
DATE OF PROCEDURE: 11/13/2018 PREOPERATIVE DIAGNOSIS: Left upper extremity hematoma end-stage renal disease. POSTOPERATIVE DIAGNOSIS: Left upper extremity hematoma end-stage renal disease. PROCEDURE: Evacuation of left upper extremity hematoma. INDICATION: The patient is a 73-year-old female who underwent revision of her left upper arm arteriovenous graft now has hematoma and pain and swelling in the left upper extremity. The patient will undergo evacuation of hematoma. Risks, benefits and alternative options were discussed with the patient. ANESTHESIA: Local MAC. ATTENDING SURGEON: Dr. Breonna Thomas GOVERNMENT DOCUMENTS LIBRARIAN: JOHN Boykin ESTIMATED BLOOD LOSS: 25 mL IV FLUIDS: 100 mL HEPARIN: None. COMPLICATIONS: None. DRAINS: None. SPECIMENS: None. IMPLANTS: None. PROCEDURE: The patient was taken to the operating room, placed supine on the operating room table and prepped and then prepped and draped in a standard surgical fashion. The mara were removed and the hematoma was evacuated. There was good flow in the graft and no signs of bleeding noted. The wound was closed again with mara after irrigation was performed. Dressings were applied. The patient tolerated the procedure well. All instrument, sponge and needle counts were correct at the end the case. There were no complications. Dr. Thomas was present for and directed the entire case. The patient was transferred to recovery room in stable condition.
--- NOTE | 2018-12-30 17:29 | RO ---
DATE OF PROCEDURE: 11/16/2018 PREOPERATIVE DIAGNOSIS: End-stage renal disease, left upper arm hematoma. POSTOPERATIVE DIAGNOSIS: End-stage renal disease, left upper arm hematoma. PROCEDURE: Left upper arm hematoma evacuation. INDICATION: The patient is a 73-year-old female with revision of her left brachial artery to axillary vein arteriovenous graft who now has developed recurrent hematoma. The patient will undergo evacuation of hematoma. Risks, benefits, alternative treatment options were discussed with the patient. ANESTHESIA: Local MAC. ATTENDING SURGEON: Dr. Breonna Thomas ESTIMATED BLOOD LOSS: Minimal. IV FLUIDS: 150 mL. HEPARIN: None. COMPLICATIONS: None. DRAINS: None. SPECIMENS: None. IMPLANTS: None. PROCEDURE: The patient was taken to the operating room, placed supine on the operating room table. The left upper extremity was prepped and draped in a standard surgical fashion. The sutures were removed and the hematoma evacuated with minimal hematoma. There was no obvious bleeding noted and no areas of breakdown of the graft noted. The wound was then closed using mara to approximate the skin. Dressings were applied. The patient tolerated the procedure well. All instrument, sponge and needle counts were correct at the end the case were no complications. Dr. Thomas was present for directed the entire case. The patient was transferred to the recovery room awake, alert, extubated and in stable condition.
--- NOTE | 2018-12-30 17:32 | RO ---
DATE OF PROCEDURE: 11/20/2018 ATTENDING SURGEON: Dr. Breonna Thomas FEED HANDLER: JOHN Lagunas PREOPERATIVE DIAGNOSES: End-stage renal disease, infected left upper extremity arteriovenous graft with bleeding. POSTOPERATIVE DIAGNOSES: End-stage renal disease, infected left upper extremity arteriovenous graft with bleeding. OPERATIVE PROCEDURE: Exploration of left upper extremity arteriovenous graft with removal of the graft, patch angioplasty with XenoSure biologic patch of the left brachial artery, removal of the arteriovenous graft. INDICATION: The patient is a 73-year-old female who underwent revision of her graft, but now has continued bleeding and infection of the graft and will require removal of the graft. Risks, benefits and alternative treatment options were discussed with the patient. ANESTHESIA: Local monitored anesthesia care (MAC) ESTIMATED BLOOD LOSS: 350 mL IV FLUIDS: 200 mL SPECIMEN: Tissue and graft for culture and sensitivity. COMPLICATIONS: None. DRAINS: None. IMPLANTS: None. DESCRIPTION OF PROCEDURE The patient was taken to the operating room, placed supine on the operating room table and then prepped and draped in a standard surgical fashion. The mara from the previous revision were removed and the graft was removed after the brachial artery was clamped proximally and distally. The arteriotomy in the brachial artery was closed using a XenoSure biologic patch. The graft was dissected as high into the upper arm as possible, into the area where the graft was well incorporated. The graft was transected and oversewn using a #3-0 Prolene suture and then the wound was packed with wet-to-dry dressing. All instrument, sponge and needle counts were correct at the end of the case. There were no complications. Dr. Thomas was present for and directed the entire case. The patient was transferred to the recovery room awake, alert, extubated and in stable condition.
--- NOTE | 2018-12-30 18:09 | RO ---
DATE OF PROCEDURE: 11/22/2018 ATTENDING SURGEON: Dr. Breonna Thomas PAID SEARCH ANALYST: None. PREOPERATIVE DIAGNOSES: End-stage renal disease, removal of left upper extremity arteriovenous graft. POSTOPERATIVE DIAGNOSES: End-stage renal disease, removal of left upper extremity arteriovenous graft. OPERATIVE PROCEDURE: Left upper extremity wound dressing change. INDICATION The patient is a 73-year-old female who underwent removal of an infected graft in the left upper extremity and packing of the wound and will now undergo a wound evaluation with changing of the dressing. Risks, benefits, and alternative treatment options were discussed with the patient. ANESTHESIA: Monitored anesthesia care (MAC). ESTIMATED BLOOD LOSS: 5 mL IV FLUIDS: 50 mL HEPARIN: None. COMPLICATIONS: None. DRAINS: None. SPECIMENS: None IMPLANTS: None. DESCRIPTION OF PROCEDURE The patient was taken to the operating room, placed supine on the operating room table. The left upper extremity was prepped and draped in a standard surgical fashion. The wound was opened and explored and the dressing removed and there was good healthy tissue with no active bleeding or infection noted. The wound was repacked with dressings applied. The patient tolerated the procedure well. All instrument, sponge and needle counts were correct at the end the case. There were no complications. Dr. Thomas was present for and directed the entire case. The patient was transferred to the recovery room awake, alert, extubated and in stable condition.
--- NOTE | 2018-12-30 18:22 | RO ---
DATE OF PROCEDURE: 11/20/2018 PREOPERATIVE DIAGNOSES: End-stage renal disease, dysfunctional and infected left upper extremity arteriovenous graft, left upper arm hematoma. POSTOPERATIVE DIAGNOSES: End-stage renal disease, dysfunctional and infected left upper extremity arteriovenous graft, left upper arm hematoma. PROCEDURE: Left upper extremity hematoma evacuation. INDICATION: The patient is a 73-year-old female with end-stage renal disease who dialyzes through a left brachial artery to axillary vein arteriovenous graft which has been removed. The patient now has hematoma in the left upper extremity will undergo evacuation of hematoma and evaluation of the left upper extremity wound. Risks, benefits and alternative treatment options have been discussed with the patient. ANESTHESIA: MAC. ATTENDING SURGEON: Dr. Breonna Tohmas CLOTHES SEPARATOR: JOHN Judge ESTIMATED BLOOD LOSS: 100 mL IV FLUIDS: 50 mL plus 1 unit of packed red blood cells COMPLICATIONS: None. DRAINS: None. SPECIMENS: None. IMPLANTS: None. PROCEDURE: The patient was taken to the operating room, placed supine on the operating room table. The left upper extremity wound was opened and the packing removed. There was no obvious signs of bleeding and only minimal hematoma was noted. The wound was repacked and dressings applied. The patient tolerated the procedure well. All instrument, sponge and needle counts were correct at the end of the case. There were no complications. Dr. Thomas was present for directed the entire case. The patient was transferred to the recovery room awake, alert, extubated and in stable condition.
--- NOTE | 2018-12-30 18:54 | RO ---
DATE OF PROCEDURE: 11/28/2018 ATTENDING SURGEON: Dr. Breonna Thomas OVEN ATTENDANT: None. PREOPERATIVE DIAGNOSES: End-stage renal disease, infected left upper arm arteriovenous graft, status post removal. POSTOPERATIVE DIAGNOSES: End-stage renal disease, infected left upper arm arteriovenous graft, status post removal. PROCEDURE: Left upper extremity wound dressing change with placement of a vacuum. INDICATION The patient is a 73-year-old female with left upper extremity wound that has required continuous evaluation and changing due to an infected left upper extremity graft. The patient will undergo evaluation with possible vac placement. Risks, benefits and alternative options were discussed with the patient. ANESTHESIA: Monitored anesthesia care (MAC). ESTIMATED BLOOD LOSS: 5 mL IV FLUIDS: 100 mL SPECIMEN: None. COMPLICATIONS: None. DRAINS: None. IMPLANTS: None. DESCRIPTION OF PROCEDURE The patient was taken to the operating room, placed supine on the operating room table and then prepped and draped in a standard surgical fashion. The left upper extremity was prepped and draped. The packing was removed and the wound was noted to be clean with no evidence of bleeding or hematoma. There was no signs of infection. A vac dressing was then placed in the wound. The patient tolerated the procedure well. All instrument, sponge and needle counts were correct at the end of the case. There were no complications. Dr. Thomas was present for and directed the entire case. The patient was transferred to the recovery room awake, alert, extubated and in stable condition.
== END 2018-12-01 16:54 | disposition home health service (06) | DRG 252 ==
LOC: M ED 13:31 → M ED INP 17:17 → M MS5PR 21:45 → M PCU 11-20 17:55
PROVIDERS: ADMIT Surgery Vascular Surgery; ATTEND Surgery Vascular Surgery
PROC: 03C80ZZ Extirpation of Matter from Left Brachial Artery, Open Approach (ICD-10-PCS; 2018-11-10)
PROC: 05763ZZ Dilation of Left Subclavian Vein, Percutaneous Approach (ICD-10-PCS; 2018-11-10)
PROC: 05743ZZ Dilation of Left Innominate Vein, Percutaneous Approach (ICD-10-PCS; 2018-11-10)
PROC: 05783ZZ Dilation of Left Axillary Vein, Percutaneous Approach (ICD-10-PCS; 2018-11-10)
PROC: 03U Upper Arteries, Supplement (ICD-10-PCS; 2018-11-10)
PROC: 03C80ZZ Extirpation of Matter from Left Brachial Artery, Open Approach (ICD-10-PCS; 2018-11-13)
PROC: 30233N1 Transfusion of Nonautologous Red Blood Cells into Peripheral Vein, Percutaneous Approach (ICD-10-PCS; principal; 2018-11-13 16:00)
PROC: 5A1D70Z Performance of Urinary Filtration, Intermittent, Less than 6 Hours Per Day (ICD-10-PCS; 2018-11-16)
PROC: 03C80ZZ Extirpation of Matter from Left Brachial Artery, Open Approach (ICD-10-PCS; 2018-11-16)
PROC: 05PY03Z Removal of Infusion Device from Upper Vein, Open Approach (ICD-10-PCS; 2018-11-20)
PROC: 03U Upper Arteries, Supplement (ICD-10-PCS; 2018-11-20)
PROC: 03JYXZZ Inspection of Upper Artery, External Approach (ICD-10-PCS; 2018-11-22)
PROC: 03W Upper Arteries, Revision (ICD-10-PCS; 2018-11-28)
DX: T82.838A Hemorrhage due to vascular prosthetic devices, implants and grafts, initial encounter (principal); N18.6 End stage renal disease; C90.02 Multiple myeloma in relapse; E46 Unspecified protein-calorie malnutrition; D62 Acute posthemorrhagic anemia; E87.2 Acidosis; E03.9 Hypothyroidism, unspecified; I95.89 Other hypotension; D63.1 Anemia in chronic kidney disease; T82.868A Thrombosis due to vascular prosthetic devices, implants and grafts, initial encounter; T82.7XXA Infection and inflammatory reaction due to other cardiac and vascular devices, implants and grafts, initial encounter; D63.0 Anemia in neoplastic disease; B96.7 Clostridium perfringens [C. perfringens] as the cause of diseases classified elsewhere; R09.02 Hypoxemia; E83.39 Other disorders of phosphorus metabolism; Z98.84 Bariatric surgery status; Z99.2 Dependence on renal dialysis; Z90.49 Acquired absence of other specified parts of digestive tract; Z93.2 Ileostomy status; Z85.828 Personal history of other malignant neoplasm of skin; Z88.1 Allergy status to other antibiotic agents; Z79.891 Long term (current) use of opiate analgesic; Z79.899 Other long term (current) drug therapy; Y83.1 Surgical operation with implant of artificial internal device as the cause of abnormal reaction of the patient, or of later complication, without mention of misadventure at the time of the procedure

== ENCOUNTER 2019-01-13 06:33 | Inpatient (IN) | payer MEDICARE, OTHER ==
[~2019-01-13] VITALS: Ht 162.6 cm; Wt 47.5 kg
[~2019-01-13 06:33] MED LIST changes: +AMOX500T2 PO; +APAP325T4 PO; +ENSULIQ10 PO; +TYLE1TAB5 PO
[2019-01-13 07:17] LABS: BASO % 0.4 % (0.0-1.0); EOS % 0.4 % (0.0-3.0); HEMATOCRIT 42.1 % (36.0-47.0); HEMOGLOBIN 14.2 g/dl (12.0-15.5); LYMPH # 1.2 10^3/uL (1.5-4.5); LYMPH % 16.8 % (24.0-44.0); MEAN CORPUSCULAR HEMOGLOBIN 34.4 pg (27.0-33.0); MEAN CORPUSCULAR HGB CONC 33.7 g/dl (32.0-36.5); MEAN CORPUSCULAR VOLUME 101.9 fl (80.0-96.0); MONO # 0.8 10^3/uL (0.0-0.8); MONO % 10.7 % (0.0-5.0); NEUTROPHILS # 4.9 10^3/uL (1.8-7.7); NEUTROPHILS % 70.1 % (36.0-66.0); PLATELET COUNT, AUTOMATED 153 10^3/uL (150-450); RED BLOOD COUNT 4.13 10^6/uL (4.00-5.40)
[2019-01-13 07:53] LABS: ALBUMIN 3.4 GM/DL (3.2-5.2); ALT/SGPT 27 U/L (12-78); BILIRUBIN,DIRECT 0.2 MG/DL (0.0-0.2); BILIRUBIN,TOTAL 1.4 MG/DL (0.2-1.0); BLOOD UREA NITROGEN 65 MG/DL (7-18); CALCIUM LEVEL 7.9 MG/DL (8.8-10.2); CARBON DIOXIDE LEVEL 18 MEQ/L (21-32); CHLORIDE LEVEL 106 MEQ/L (98-107); CREATININE FOR GFR 4.92 MG/DL (0.55-1.30); GLOMERULAR FILTRATION RATE 9.3 (>39); GLUCOSE, FASTING 93 MG/DL (70-100); LIPASE 1366 U/L (73-393); POTASSIUM SERUM 4.5 MEQ/L (3.5-5.1); SODIUM LEVEL 139 MEQ/L (136-145); TOTAL PROTEIN 6.5 GM/DL (6.4-8.2)
[2019-01-13] MEDS ORDERED: ISOVUE-370 76% 100ML VIAL (Q9967) As Ordered ONE (08:14)
--- NOTE | 2019-01-13 09:17 | REP ---
CT ABDOMEN PELVIS WITH IV CONTRAST ONLY: 01/13/2019 COMPARISON: CT abdomen 07/15/2018, CT chest 11/17/2018. CLINICAL HISTORY: Abdominal pain. Epigastric pain with elevated lipase. Evaluate for pancreatitis or other. TECHNIQUE: A bolus of 100 mL Isovue 370 scanning through the abdomen and pelvis with coronal and sagittal reconstructions. FINDINGS: CT Chest: Lung bases show some minor basilar fibrotic change without nodules, effusion or infiltrate. Heart not enlarged. No pericardial thickening or effusion. No definite hiatal hernia. Liver and spleen are not enlarged and show no focal lesions. There is no biliary dilatation. I see no hepatic mass. Gallbladder shows no calcified stone. No ascites in the upper abdomen. Pancreas shows pancreatic duct in the body and proximal tail up to 3.5 mm. No filling defect. The duct is seen all the way to the ampulla in the range of 2-3 mm. A 3 mm duct is visible on the CT in July, not much change. No mass, stone, peripancreatic fluid or adenopathy. I do not see inflammatory changes to suggest pancreatitis. Adrenal glands are symmetric and unchanged. Kidneys are severely atrophic but show symmetric enhancement. There are multiple cysts. No hydronephrosis. The right kidney is 6.8 cm and the left is 6.7 cm in length. No stone disease. The aorta is with atherosclerotic calcification but no aneurysm or dissection. No periaortic, mesenteric or retroperitoneal lymphadenopathy. There has been colonic resection with ileostomy right abdomen about the level of the iliac crest. This is unchanged. There are surgical clips in the right and left upper quadrants from bowel resection. Small bowel loops are not abnormally dilated. There are a few air-fluid levels and some bowel loops show slight wall thickening in this patient with a past history of Crohn disease. No ventral hernia. Multiple surgical clips in the presacral space from colectomy. No inguinal hernia or adenopathy. There is no ascites, perforation or free air. Kyphoplasty cement seen at T12-L2. Bones demineralized and degenerative disc changes facet arthropathy lower lumbar spine. No acute bony finding or interval change from July. The pelvis, hips, sacrum, SI joints show demineralization and mild degenerative change without fracture or destructive lesion. IMPRESSION: 1. There is no CT evidence of pancreatitis, peripancreatic abscess or pseudocyst. No mass or stone. The pancreatic duct is up to 3.5 mm that has been previously seen and similar to this, unchanged. 2. Prior colectomy and ileostomy is now in the right abdomen. No gross obstruction. Nonspecific gas pattern with a few air-fluid levels in small bowel loops and no abnormal dilatation. 3. Spleen, gallbladder and stomach unremarkable. 4. Severe renal atrophy, 6.8 cm right and 6.7 cm left kidney length. 5. Osteoporosis and degenerative changes in the spine. There is kyphoplasty cement at T12-L2. No new or acute compression fracture. Electronically Signed by Mack Barragan MD 01/13/2019 09:45 P
--- NOTE | 2019-01-13 09:21 | REP ---
CT of the chest with IV contrast, CT pulmonary angiography protocol: Comparison is 10/28/2018. There is a right IJ Iurwoh-[id number]-Dnuc catheter, as previously with the tip at the confluence of the superior vena cava and right atrium in satisfactory location. The intravenous contrast is injected into t right upper extremity veins. There is intraluminal thrombus occluding the proximal superior vena cava at its junction with the right subclavian vein. There is collateral flow in the right chest wall through intercostal and internal mammary veins. This is unchanged from the prior study. The pulmonary arteries are adequately opacified. There is no thrombus in the pulmonary trunk or central pulmonary arteries. There is no thrombus in the pulmonary lobe or segment branches. There are no infiltrates. No pleural effusions. There are no masses or nodules. There is no mediastinal, hilar or axillary lymph node enlargement. The thoracic aorta is unremarkable. Cardiac size is normal. There is no pericardial effusion. The visualized upper abdominal contents are unremarkable and unchanged except for probable bilateral renal cortical atrophy and only the upper poles of the kidneys are included. Multilevel vertebroplasties are again identified in the lower thoracic and upper lumbar spine. Impression: There are no pulmonary emboli. There is intraluminal thrombus occluding the proximal superior vena cava at its junction with the right subclavian vein with collateral venous flow in the right chest wall. There are also veins and in the internal mammary veins, unchanged from the prior study. 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 Electronically Signed by Justin Solorio MD 01/13/2019 09:12 A
[2019-01-13] MEDS ORDERED: ONDANSETRON 4MG/2ML VIAL (J2405) IV ONE (11:15)
[2019-01-13] MEDS ORDERED: fentaNYL 100 MCG/2 ML INJECTION (J3010) IV PRN (11:15)
[2019-01-13] MEDS: NS 1,000 ML IV SCH (12:20)
[2019-01-13] MEDS ORDERED: ACETAMINOPHEN TAB 650MG DOSE (2X325MG) PO PRN (12:30)
[2019-01-13 12:50] LABS: CPK CREATINE PHOSPHOKINASE 61 U/L (26-192); TROPONIN I < 0.02 NG/ML (< 0.10)
[2019-01-13] MEDS: PANTOPRAZOLE 40MG INJ (PROTONIX) (C9113) IV SCH (13:00)
[2019-01-13 13:29] LABS: INR 0.92; PARTIAL THROMBOPLASTIN TIME 25.3 SECONDS (25.4-37.6); PROTHROMBIN TIME 12.5 SECONDS (12.1-14.4)
[2019-01-13 15:58] LABS: CK-MB VALUE MASS < 1.0 NG/ML (<3.6); CPK CREATINE PHOSPHOKINASE 28 U/L (26-192); MB/CK RELATIVE INDEX 3.57 (< OR =4); TROPONIN I < 0.02 NG/ML (< 0.10)
--- NOTE | 2019-01-13 18:32 | HPEPDOC ---
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 She presented to the ER with complaints of abdominal pain over last 2 weeks. She noted that the pain was mostly in her upper abdomen. Patient denied any alleviating or aggravating factors. She denied any significant nausea or vomiting. Patient has an ileostomy present; has noted increased output from the ostomy site; requiring change approximately 10 times a day (typically only 4-5x on a usual day). Patient notes that she denies any chest pain. Has some shortness of breath, but notes that it didnt essentially unchanged. Denies cough, fevers. Has noted some chills. Patient makes urine and denies any discomfort with urination. Patient has been on chemotherapy since May 2018 for her multiple myeloma. Patient has noted a 10 pound weight loss in about 2-3 weeks. In the emergency room, patient was found to have an elevated lipase. Hospitalist service was called for further evaluation and treatment. Home Medications Scheduled (Restasis) 0.05 % Emu, 1 DROP OU BID, (Reported) (Ensure) 1 Liq Liq, 1 DOSE PO TID, (Reported) TAKES IN BETWEEN MEALS. Cholecalciferol (Vitamin D-3) 2,000 Unit Tab, 2,000 UNIT PO DAILY, (Reported) Dexamethasone (Dexamethasone) 4 Mg Tab, 12 MG PO QWEEK, (Reported) TAKES ON SUNDAYS Diphenhydramine HCl (Benadryl Allergy) 25 Mg Cap, 25 MG PO 3XW, (Reported) TAKES PRIOR TO DIALYSIS ,, Ixazomib Citrate (Ninlaro) 3 Mg Cap, 3 MG PO ASDIRECTED, (Reported) TAKES ON DAY 1,8,15 OF 22 DAY CYCLE. LAST DOSE WAS DAY 8 OF CYCLE Levothyroxine Sodium (Unithroid Direct) 50 Mcg Tab, 50 MCG PO DAILY, (Reported) Sodium Polystyrene Sulfonate (Kionex) 15 Gm/60 Ml Teena, 60 ML PO ASDIRECTED, (Re ported) PATIENT ONLY TAKES IF DIRECTED BY DOCTOR. Scheduled PRN (Tylenol Pm Extra Strength 500-25 mg) 1 Tab Tab, 2 TAB PO QHS PRN for PAIN, (Reported) Acetaminophen (Apap) 325 Mg Tab, 650 MG PO Q6H PRN for PAIN, (Reported) Acetaminophen/Hydrocodone ([place] 5-325 mg) 1 Tab Tab, 2 TAB PO Q4H PRN for PAIN, (Reported) Allergies Coded Allergies: Vancomycin (Verified Allergy, Intermediate, RASH/ITCHING, 11/10/18) Past Medical History Medical History Multiple myeloma ESRD on HD (MWF); history of graft clotting requiring Fistula removal (03/2019) and PermaCath placement - As a result of complications from multiple myeloma Crohns disease status post ileostomy with colectomy Anemia 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 Hearing loss OA Left flank post-herpetic neuralgia Surgical History Fistula placement November 2008 Melanoma resection at right arm (2010) with negative LN biopsy Ileostomy Appendectomy at the age of 15 Kyphoplasty of T11-L1 in 2009 for myeloma lytic lesions Family History - Mother with history of diabetes, heart disease and stroke - Father unknown - No history of malignancies Social History - Denies the use of alcohol or illicit drugs; patient quit smoking 1979 with smoker for a couple of years - Denies recent travel or sick contacts - Lives alone - 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; 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 Review of Systems Other systems 10 point review systems complete, all negative otherwise stated in HPI Vital Signs - Vitals: BP 108/59, HR 81, RR 18, Sat 96%RA, Temp 97.1F - General: Lying in bed, No acute distress, Speaking in full sentences, AAOx3 - HEENT: NC, AT, PERRLA, EOMI - CVS: RRR, +S1S2, - Murmurs / rubs / gallops - Lungs: Fair air entry bilaterally, Clear to auscultation, No wheezing / rales / rhonchi - Abdomen: Soft, Non-distended, tenderness appreciated at epigastrium, - Extremities: No lower extremity edema, No calf tenderness - Neuro: No focal motor or sensory defecit - Skin: No visible rashes , permacath in place at R chest wall Laboratory Data Labs 24H Laboratory Tests 2 01/13/19 07:02: Anion Gap 15, Glomerular Filtration Rate 9.3L, Calcium Level 7.9L, Aspartate Amino Transf (AST/SGOT) 26, Alanine Aminotransferase (ALT/SGPT) 27, Alkaline Phosphatase 75, Total Bilirubin 1.4H, Direct Bilirubin 0.2, Total Creatine Kinase 61, Creatine Kinase MB 1.0, Creatine Kinase MB Relative Index 1.80, Troponin I < 0.02, Total Protein 6.5, Albumin 3.4, Albumin/Globulin Ratio 1.10, Lipase 1366H 01/13/19 07:10: Immature Granulocyte % (Auto) 1.6, White Blood Count 7.0, Red Blood Count 4.13, Hemoglobin 14.2, Hematocrit 42.1, Mean Corpuscular Volume 101.9H, Mean Corpuscular Hemoglobin 34.4H, Mean Corpuscular Hemoglobin Concent 33.7, Red Cell Distribution Width 15.4H, Platelet Count 153, Neutrophils (%) (Auto) 70.1H, Lymphocytes (%) (Auto) 16.8L, Monocytes (%) (Auto) 10.7H, Eosinophils (%) (Auto) 0.4, Basophils (%) (Auto) 0.4, Neutrophils # (Auto) 4.9, Lymphocytes # (Auto) 1.2L, Monocytes # (Auto) 0.8, Eosinophils # (Auto) 0.0, Basophils # (Auto) 0.0, Nucleated Red Blood Cells % (auto) 0.0 01/13/19 08:23: Lactic Acid Level 1.9 01/13/19 13:00: Total Creatine Kinase 28, Creatine Kinase MB < 1.0, Creatine Kinase MB Relative Index 3.57, Troponin I < 0.02 01/13/19 13:06: Prothrombin Time 12.5, Prothromb Time International Ratio 0.92, Activated Partial Thromboplast Time 25.3L CBC/BMP Laboratory Tests 01/13/19 07:02 01/13/19 07:10 Red Blood Count 4.13, Mean Corpuscular Volume 101.9 H, Mean Corpuscular Hemogl obin 34.4 H, Mean Corpuscular Hemoglobin Concent 33.7, Red Cell Distribution Width 15.4 H, Neutrophils (%) (Auto) 70.1 H, Lymphocytes (%) (Auto) 16.8 L, Monocytes (%) (Auto) 10.7 H, Eosinophils (%) (Auto) 0.4, Basophils (%) (Auto) 0.4, Neutrophils # (Auto) 4.9, Lymphocytes # (Auto) 1.2 L, Monocytes # (Auto) 0.8, Eosinophils # (Auto) 0.0, Basophils # (Auto) 0.0 Microbiology Microbiology 01/13/19 Blood Culture, Received Pending 01/13/19 Blood Culture, Received Pending Plan / VTE VTE Prophylaxis Ordered?: Yes Plan Plan Abdominal pain - likely 2/2 acute pancreatitis - Presented to the ER with complaints of abdominal pain worsening over last 2 weeks - Physical with epigastric tenderness - Lab work with elevated lipase; no elevation in liver enzymes other than mild elevation of bilirubin - CT ab/pel 01/13: 1. There is no CT evidence of pancreatitis, peripancreatic abscess or pseudocyst. No mass or tone. The pancreatic duct is up to 3.5 mm that has been previously seen and similar to this, unchanged. 2. Prior colectomy and ileostomy is now in the right abdomen. No gross obstruction. Nonspecific gas pattern with a few air-fluid levels in small bowel loops and no abnormal dilatation. 3. Spleen, gallbladder and stomach unremarkable. 4. Severe renal atrophy, 6.8 cm right and 6.7 cm left kidney length. 5. Osteoporosis and degenerative changes in the spine. There is kyphoplasty cement at T12-L2. No new or acute compression fracture. - Will order ultrasound of right upper quadrant to evaluate for cholelithiasis - Discussed with nephrology about fluid management; will fluid hydration with restriction - Nephrology on consultation Questionable shortness of breath - Currently patient has no complaints of shortness of breath, chest pain or palpitations - Saturating well on room air - CTA chest 01/13: There are no pulmonary emboli. There is intraluminal thrombus occluding the proximal superior vena cava at its junction with the right subclavian vein with collateral venous flow in the right chest wall. There re also veins and in the internal mammary veins, unchanged from the prior study. 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 - Case has been discussed with Dr. Thomas (vascular surgery); will be on consultation; well start anticoagulation with heparin drip Multiple myeloma - Patient receives dexamethasone once a week - Receives chemotherapy, follows with Dr. 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
[2019-01-13 19:38] LABS: CK-MB VALUE MASS < 1.0 NG/ML (<3.6); CPK CREATINE PHOSPHOKINASE 35 U/L (26-192); MB/CK RELATIVE INDEX 2.86 (< OR =4); TROPONIN I < 0.02 NG/ML (< 0.10)
[2019-01-13 21:15] VITALS: BP 98/58
[2019-01-13] MEDS ORDERED: HEPARIN SOD (PORCINE) 5000 UNITS/ML VIAL IV ONE (21:45)
--- NOTE | 2019-01-13 22:03 | CR ---
DATE OF CONSULTATION: 01/13/2019 REFERRING PHYSICIAN: Cary Dillon MD REASON FOR CONSULTATION: To assist in the management of end-stage renal disease. HISTORY OF PRESENT ILLNESS Mrs. Escobedo is a 73-year-old very pleasant female with multiple chronic medical problems including end-stage renal disease, history of Crohn disease, history of multiple myeloma, history of peripheral neuropathy. She is currently undergoing chemotherapy for recurrent multiple myeloma and has been sick quite frequently with nausea and back pain. She felt abdominal pain for several days which she felt was related to something that she ate. However, when she presented for regular dialysis treatment this morning she was quite short of breath and reported worsening abdominal pain. Her oxygen saturation was in the 80s and the patient was sent to the emergency room for evaluation. Here lab work revealed acute pancreatitis with elevated serum lipase level. She is being admitted and is due for dialysis today. Nephrology consultation was requested and the patient is seen in the emergency room. PAST MEDICAL AND SURGICAL HISTORY Significant for 1. History of multiple myeloma, currently in relapse and being treated. 2. History of Crohn disease, status post ileostomy and colectomy. 3. History of peripheral neuropathy. 4. End-stage renal disease. 5. History of anemia. 6. History of osteoarthritis. 7. History of herpetic neuralgia after shingles. 8. History of hearing loss. 9. History of melanoma resection from her right arm. 10. 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 PAST SURGICAL HISTORY Significant for AV fistula creation, melanoma resection from right arm, ileostomy and colectomy, appendectomy, kyphoplasty. MEDICATIONS Outpatient medications include vitamin D 2000 units daily, dexamethasone 12 mg once a week, diphenhydramine three times a week before dialysis, levothyroxine 50 mcg daily, Velcade once a week, Tylenol as needed and [place] 1-2 tablets as needed for severe pain. ALLERGIES: She has allergy to VANCOMYCIN. PERSONAL AND SOCIAL HISTORY The patient does not smoke or drink. She lives alone. FAMILY HISTORY: Negative for end-stage renal disease. Her mother did have history of diabetes and heart problems. REVIEW OF SYSTEMS The patient is generally feeling very poorly. She denies any fever or chills. She has some hearing loss. Denies any sore throat, nosebleed or sinus problems. Cardiovascular system is significant for shortness of breath on exertion. She denies any chest pain. Respiratory system is negative for cough or hemoptysis. GI system is significant for abdominal pain without any vomiting or diarrhea. system is negative for dysuria or hematuria. Endocrine system is significant for hypothyroidism and no history of diabetes. Psychosocial system is negative for anxiety and depression. Neurological system is significant for peripheral neuropathy. There is no stroke or TIA history. Skin is negative for rash or ulcers. She does have a history of melanoma removal from her arm several years ago. Musculoskeletal system is significant for history of multiple myeloma. She also has history of osteoporosis. PHYSICAL EXAMINATION Temperature 98 degrees Fahrenheit, heart rate 92 per minute and respiratory rate 20 per minute. Blood pressure about 108/70 mmHg and oxygen saturation 97% on room air. Head: Is atraumatic. Neck is supple and without JVD or thyroid enlargement. She has no oral thrush or ulcers. Heart: Sounds are regular and lungs sound clear to auscultation. Abdomen is soft with epigastric tenderness and bowel sounds are normal. Extremities have no cyanosis or clubbing. Skin has no rash or ulcers. Neurologically she is awake, alert and oriented times three. No focal deficit noted. LABORATORY DATA WBC count 7.0, hemoglobin 14.2 and hematocrit 42.1. Platelets 153. Sodium 139, potassium 4.5, CO2 18, BUN 65 and creatinine 4.92. Glucose 93, lactic acid 1.9 and calcium 7.9. Lipase level is 1366 and rest of her chemistry including LFTs are all within normal range. She had a CT scan of abdomen and pelvis done in the emergency room which did not show any evidence for any fluid collection or peripancreatic abscess or pseudocyst. She has prior colectomy and ileostomy. Severe renal atrophia and osteoporosis was noted. She also had a CT angiogram done due to her hypoxemia and shortness of breath. She was noticed to have no pulmonary emboli. She has an intraluminal thrombus in the superior vena cava at the junction with right subclavian vein. She already has collateral veins in the right chest wall. PROBLEMS: 1. End-stage renal disease. The patient is due for dialysis today. She could not be dialyzed this morning as she was acutely ill and hypoxic. Now she seems to be doing better at rest. However, she does get very short of breath on any exertion. Her volume status seems stable clinically and radiologically. She never gains any weight due to her ileostomy. We will dialyze her but not try to remove any fluid. 2. Acute pancreatitis. The patient is still in significant pain. I would recommend to use analgesics as needed. I would recommend only gentle hydration due to risk of hypervolemia. She should kept n.p.o. for now other than meds and clear liquids. 3. Metabolic acidosis. She has mild metabolic acidosis which should be corrected with dialysis. 4. Multiple myeloma. She has recurrent multiple myeloma and has been on chemotherapy for several months. We can probably put it on hold at least temporarily until her condition improves. Thank you for involving me in the care of Mrs. Escobedo. I will follow her along with you. JUANA
[2019-01-13] MEDS: HEPARIN DRIP 25,000 UNITS in APPROPRIATE DILUENT 1 EA IV SCH (22:36)
[2019-01-13] MEDS: HEPARIN SOD (PORCINE) 5000 UNITS/ML VIAL IV PRN (22:37)
[2019-01-13] MEDS: NORCO, ANEXSIA 5/325MG TABLET (HYDROcodone/ACETAMINOPHEN) PO PRN (22:47)
[2019-01-13 23:59] VITALS: BP 82/81
[2019-01-14 04:00] VITALS: BP 96/59
[2019-01-14 05:21] LABS: BASO % 0.5 % (0.0-1.0); EOS % 0.7 % (0.0-3.0); HEMATOCRIT 37.2 % (36.0-47.0); HEMOGLOBIN 12.8 g/dl (12.0-15.5); LYMPH # 1.2 10^3/uL (1.5-4.5); LYMPH % 27.3 % (24.0-44.0); MEAN CORPUSCULAR HEMOGLOBIN 35.2 pg (27.0-33.0); MEAN CORPUSCULAR HGB CONC 34.4 g/dl (32.0-36.5); MEAN CORPUSCULAR VOLUME 102.2 fl (80.0-96.0); MONO # 0.7 10^3/uL (0.0-0.8); MONO % 15.3 % (0.0-5.0); NEUTROPHILS # 2.4 10^3/uL (1.8-7.7); NEUTROPHILS % 55.3 % (36.0-66.0); PLATELET COUNT, AUTOMATED 139 10^3/uL (150-450); RED BLOOD COUNT 3.64 10^6/uL (4.00-5.40); WHITE BLOOD COUNT 4.3 10^3/uL (4.0-10.0)
[2019-01-14 05:53] LABS: ALBUMIN 3.3 GM/DL (3.2-5.2); BILIRUBIN,TOTAL 1.6 MG/DL (0.2-1.0); CALCIUM LEVEL 8.7 MG/DL (8.8-10.2); CHOLESTEROL RISK RATIO 2.232 (<5); GLOMERULAR FILTRATION RATE 11.8 (>39); MAGNESIUM LEVEL 2.1 MG/DL (1.8-2.4); POTASSIUM SERUM 4.5 MEQ/L (3.5-5.1); TOTAL PROTEIN 6.4 GM/DL (6.4-8.2)
[2019-01-14] MEDS: NORCO, ANEXSIA 5/325MG TABLET (HYDROcodone/ACETAMINOPHEN) PO PRN ×2 (06:45→14:35)
[2019-01-14] MEDS: LEVOTHYROXINE 50MCG TABLET (0.05MG) PO SCH (06:45)
[2019-01-14 08:00] VITALS: BP 124/63
--- NOTE | 2019-01-14 08:25 | REP ---
RIGHT UPPER QUADRANT ULTRASOUND: 01/14/2019. COMPARISON: CT 01/13/2019 CLINICAL HISTORY: Evaluate for stone disease. FINDINGS: Sonographic evaluation of the right upper quadrant shows the liver homogeneous in echotexture without discrete hepatic mass, hepatic biliary dilatation nor perihepatic ascites. Gallbladder well filled measuring 8.5 x 3.5 x 3.8 cm. Normal wall thickness and no stone, sludge or pericholecystic fluid. No sonographic Adam sign is described. Common duct is 3.7 mm without dilatation or stone. Pancreas is grossly unremarkable and without stone or visible mass. Mildly prominent pancreatic duct on CT is not visualized on this ultrasound. No peripancreatic fluid or mass about the pancreatic head. The right kidney severely atrophic with increased cortical echogenicity and multiple small cortical cysts ranging from 3-7 mm. There is a maximum length 7.2 x 3 x 2.5 cm. IMPRESSION: 1. No evidence of cholelithiasis, intrahepatic biliary dilatation, perihepatic ascites or, type dilatation/stone. The common duct is 3.7 mm. 2. Liver homogeneous, pancreas visualized without gross abnormality, the mildly prominent pancreatic duct on CT cannot be defined on this study. 3. Severe renal atrophy with cortical thinning and increased echogenicity consistent with chronic medical renal disease. Multiple cortical cysts ranging three 7 mm. No hydronephrosis. Electronically Signed by Mack Barragan MD 01/14/2019 07:36 P
[2019-01-14] MEDS: VITAMIN D 1,000 INTERNATIONAL UNITS TABLET PO SCH (09:11)
--- NOTE | 2019-01-14 11:16 | IPNPDOC ---
Text Note Date of Service The patient was seen on 01/14/19. NOTE SUBJECTIVE: Patient was interviewed and examined today at bedside in the PCU. She continues to complain of epigastric abdominal pain that began 2 weeks prior and has steadily increased in severity. She is currently utilizing Olden and Tylenol PRN for pain with good relief. Prior to medication, she rated her epigastric pain as 8/10. She also reports a 3 day history of watery stools via her colostomy bag and nausea of [address] ordered yesterday did not indicate any acute GI pathology. U/S of right upper quadrant did not show any cholelithiasis or choledocholithiasis. In regards to her intraluminal thrombus in the proximal superior vena cava, Dr. Thomas (vascular surgery) has been consulted and will be seeing the patient today. She has been started on a heparin drip for anticoagulation. She denies having shortness of breath at this time. She also denies chest pain/pressure, palpitations, or cough. VITALS: Please see below EXAMINATION GENERAL: Patient is alert and oriented to person, place and time, sitting upright in her hostpital bed, able to participate in her care HEENT: Normocephalic, atraumatic, EOMI, PERRL NECK: No lymphadenopathy, No JVD appreciated HEART: Regular rate and rhythm, no murmurs appreciated LUNGS: Clear to auscultation bilaterally, no wheezing rales or rhonchi. ABD: Epigastric, RUQ, LUQ tenderness to palpation. MSK: Moves all extremities equal and bilaterally EXTREMITIES: Peripheral pulses 2+ bilaterally via radial palpation SKIN: No new/changing lesions PSYCH: Mood and affect are appropriate LABS: Please see below MICROBIOLOGY: Please see below IMAGING: Angio CT: There are no pulmonary emboli. There is intraluminal thrombus occluding the proximal superior vena cava at its junction with the right subclavian vein with collateral venous flow in the right chest wall. There are also veins and in the internal mammary veins, unchanged from the prior study. 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 Abd/Pel CT: There is no CT evidence of pancreatitis, peripancreatic abscess or pseudocyst. No mass or stone. The pancreatic duct is up to 3.5 mm that has been previously seen and similar to this, unchanged. Prior colectomy and ileostomy is now in the right abdomen. No gross obstruction. Nonspecific gas pattern with a few air fluid levels in small bowel loops and no abnormal dilatation. Spleen, gallbladder and stomach unremarkable. Severe renal atrophy, 6.8 cm right and 6.7 cm left kidney length. Osteoporosis and degenerative changes in the spine. There is kyphoplasty cement at T12-L2. No new or acute compression fracture. Abd US: No evidence of cholelithiasis, intrahepatic biliary dilatation, perihepatic ascites or, type dilatation/stone. The common duct is 3.7 mm. Liver homogeneous, pancreas visualized without gross abnormality, the mildly prominent pancreatic duct on CT cannot be defined on this study. Severe renal atrophy with cortical thinning and increased echogenicity consistent with chronic medical renal disease. Multiple cortical cysts ranging three 7 mm. No hydronephrosis. Assessment and Plan: Patient is a 73-year-old female with PMHx of Multiple myeloma, ESRD on HD ([facility]), Chrons disease (s/p ileostomy & colectomy), Anemia, 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, Hearing loss, OA, Left flank post-herpetic neur algia, presented to the ED complaining of SOB and epigastric abd pain. She was found to have an elevated lipase. CTA imaging identified an intraluminal thrombus occluding the proximal superior vena cava, followed by Dr. Thomas. Acute Pancreatitis: - Initial laboratory investigation demonstrated a lipase of 1366. This morning it was measured at 2439. - Blood cultures negative after 24 hours of growth. - CT Abd and RUQ US did not identify pancreatitis, pseudocysts or biliary stones. - Dialysis ([facility]), Nephrology consulted for fluid management and we appreciate their input. Shortness of breath: - Patient continues to deny symptoms of SOB. - Exam remains negative. - Imaging does not indicate respiratory pathology. - Continue to monitor Thrombus of proximal SVC - History of PermCath placement s/p 1 month ago - L arm fistula removal s/p 9 years after clotting - Dr. Thomas consulted and we appreciate his input - Anticoagulation with heparin drip continued ESRD on HD ([facility]) - Secondary to multiple myeloma complications - Nephrology on consultation Multiple Myeloma - followed by Dr. Jessy Saab - Dexamethasone weekly Anemia - Hemoglobin 12.8 down from 14.2 yesterday - Continue with gentle IV hydration Hypothyroidism - Continue with levothyroxine at patient's home dose OA - Continue home medications for pain control Left flank post-herpetic neuralgia Gastrointestinal prophylaxis - Continue on Protonix Hearing loss 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 DVT prophylaxis - On full anticoagulation with Heparin drip VS,Fishbone, I+O VS, Fishbone, I+O Laboratory Tests 01/14/19 04:53 Red Blood Count 3.64 L, Mean Corpuscular Volume 102.2 H, Mean Corpuscular Hemoglobin 35.2 H, Mean Corpuscular Hemoglobin Concent 34.4, Red Cell Distribution Width 15.6 H, Neutrophils (%) (Auto) 55.3, Lymphocytes (%) (Auto) 27.3, Monocytes (%) (Auto) 15.3 H, Eosinophils (%) (Auto) 0.7, Basophils (%) (Auto) 0.5, Neutrophils # (Auto) 2.4, Lymphocytes # (Auto) 1.2 L, Monocytes # (Auto) 0.7, Eosinophils # (Auto) 0.0, Basophils # (Auto) 0.0, Calcium Level 8.7 L, Aspartate Amino Transf (AST/SGOT) 19, Alanine Aminotransferase (ALT/SGPT) 21, Alkaline Phosphatase 69, Total Bilirubin 1.6 H, Triglycerides Level 114, LDL Cholesterol 83, Total Protein 6.4, Albumin 3.3 Vital Signs Date Time Temp Pulse Resp B/P (MAP) Pulse Ox O2 Delivery O2 Flow Rate FiO2 01/14/19 08:00 96.3 81 18 124/63 (83) 97 01/13/19 06:41 Room Air I&O- Last 24 Hours up to 6 AM 01/14/19 06:00 Intake Total 1511.3 ml Output Total 350 ml Balance 1161.3 ml GME ATTESTATION GME ATTESTATION My faculty preceptor for this patient encounter was physically present during the encounter and was fully available. All aspects of the patient interview, examination, medical decision making process, and medical care plan development were reviewed and approved by the faculty preceptor. The faculty preceptor is aware and concurs with the plan as stated in the body of this note and will attest to such by his/her cosignature. ATTENDING NOTE I, Cary Dillon, have both independently examined this patient as well as reviewed the documentation. I have discussed in detail with the resident the findings and plan of treatment as documented in the residents documentation. I will continue to follow the patient and offer further guidance to the patients care as necessary during this hospital stay. TAHIRA PETERSON DO Jan 14, 2019 11:16 CARY DILLON MD Jan 14, 2019 13:47
[2019-01-14 12:00] VITALS: BP 104/57
--- NOTE | 2019-01-14 12:28 | IPN ---
DATE OF VISIT: 01/14/2019 Mrs. Turner is seen this morning on her bedside. She is feeling better and reports improved abdominal pain. She has no dyspnea or chest pain. No fever or chills reported. She was dialyzed yesterday, which she tolerated reasonably well. On physical exam, temperature 96.3 degrees Fahrenheit, heart rate 80 per minute and respiratory rate 18 per minute. Blood pressure 124/63 mmHg and oxygen saturation 97%. Head is atraumatic. Neck is supple and without jugular venous distention (JVD) or thyroid enlargement. Oral mucosa is dry but without any thrush or ulcers. Heart sounds are regular and lungs clear to auscultation. Abdomen is soft with minimal epigastric area tenderness and bowel sounds are normal. Extremities have no cyanosis or clubbing. Today's labs show WBC count 4.3, hemoglobin 12.8 and hematocrit 37.2. Platelets 139. Sodium 136, potassium 4.5, CO2 27, BUN 36 and creatinine 4.0. Lipase level is 2439 today. PROBLEMS: 1. End-stage renal disease. Patient was dialyzed yesterday. I will schedule her next dialysis tomorrow. Her electrolytes are within normal range and volume status is well-compensated. 2. Acute pancreatitis. Her lipase level increased further today, though her symptoms have improved. She has been nothing by mouth. I feel that she can be okay for clear liquid diet. She remains on IV fluids at 60 per mL/h, which is appropriate. 3. Recurrent multiple myeloma. She has recurrence of multiple myeloma and has been on chemotherapy as outpatient. Her chemo is currently on hold in view of acute pancreatitis.
[2019-01-14] MEDS: NS 1,000 ML IV SCH ×2 (12:48→21:40)
[2019-01-14] MEDS: PANTOPRAZOLE 40MG INJ (PROTONIX) (C9113) IV SCH (12:48)
[2019-01-14] MEDS: HEPARIN SOD (PORCINE) 5000 UNITS/ML VIAL IV PRN (14:26)
[2019-01-14 16:00] VITALS: BP 104/59
[2019-01-14 20:00] VITALS: BP 113/66
[2019-01-14] MEDS ORDERED: diphenhydrAMINE 25 MG CAP PO PRN (20:15)
[2019-01-14 23:00] VITALS: BP 128/60
[2019-01-15 04:00] VITALS: BP 130/67
[2019-01-15] MEDS: HEPARIN DRIP 25,000 UNITS in APPROPRIATE DILUENT 1 EA IV SCH (04:43)
[2019-01-15 05:30] LABS: EOS # 0.1 10^3/uL (0.0-0.50); EOS % 2.6 % (0.0-3.0); HEMATOCRIT 29.6 % (36.0-47.0); LYMPH # 0.6 10^3/uL (1.5-4.5); LYMPH % 26.2 % (24.0-44.0); MEAN CORPUSCULAR HEMOGLOBIN 33.9 pg (27.0-33.0); MEAN CORPUSCULAR HGB CONC 33.1 g/dl (32.0-36.5); MEAN CORPUSCULAR VOLUME 102.4 fl (80.0-96.0); MONO # 0.4 10^3/uL (0.0-0.8); MONO % 15.9 % (0.0-5.0); NEUTROPHILS # 1.3 10^3/uL (1.8-7.7); NEUTROPHILS % 54.9 % (36.0-66.0); PLATELET COUNT, AUTOMATED 101 10^3/uL (150-450); RED BLOOD COUNT 2.89 10^6/uL (4.00-5.40); WHITE BLOOD COUNT 2.3 10^3/uL (4.0-10.0)
[2019-01-15 05:34] LABS: HEMOGLOBIN 9.8 g/dl (12.0-15.5)
[2019-01-15 06:00] LABS: ALBUMIN 2.7 GM/DL (3.2-5.2); BILIRUBIN,TOTAL 0.8 MG/DL (0.2-1.0); CALCIUM LEVEL 7.1 MG/DL (8.8-10.2); CREATININE FOR GFR 4.67 MG/DL (0.55-1.30); GLOMERULAR FILTRATION RATE 9.8 (>39); POTASSIUM SERUM 3.9 MEQ/L (3.5-5.1)
[2019-01-15] MEDS: LEVOTHYROXINE 50MCG TABLET (0.05MG) PO SCH (06:23)
[2019-01-15] MEDS: VITAMIN D 1,000 INTERNATIONAL UNITS TABLET PO SCH (06:24)
[2019-01-15 08:08] LABS: BASO % 0.5 % (0.0-1.0); EOS % 1.5 % (0.0-3.0); HEMATOCRIT 29.7 % (36.0-47.0); LYMPH # 0.6 10^3/uL (1.5-4.5); LYMPH % 29.4 % (24.0-44.0); MEAN CORPUSCULAR HEMOGLOBIN 34.5 pg (27.0-33.0); MEAN CORPUSCULAR HGB CONC 33.7 g/dl (32.0-36.5); MEAN CORPUSCULAR VOLUME 102.4 fl (80.0-96.0); MONO # 0.2 10^3/uL (0.0-0.8); MONO % 10.3 % (0.0-5.0); NEUTROPHILS # 1.2 10^3/uL (1.8-7.7); NEUTROPHILS % 57.3 % (36.0-66.0)
[2019-01-15 09:00] LABS: PLATELET COUNT, AUTOMATED 96 10^3/uL (150-450)
[2019-01-15] MEDS ORDERED: HEPARIN 1,000 UNITS/ML 10ML VIAL (FOR RADIOLOGY& DIALYSIS ONLY) XX ONE (10:30)
[2019-01-15] MEDS ORDERED: HEPARIN 1,000 UNITS/ML 10ML VIAL (FOR RADIOLOGY& DIALYSIS ONLY) IV ONE (10:30)
[2019-01-15 11:00] VITALS: BP 109/55
[2019-01-15 12:14] LABS: HEMATOCRIT 31.3 % (36.0-47.0); HEMOGLOBIN 10.5 g/dl (12.0-15.5)
--- NOTE | 2019-01-15 12:40 | IPN ---
DATE: 01/15/2019 Mrs. Escobedo is seen this morning on her bedside. She is feeling much better and her abdominal pain has improved. She denies any nausea, vomiting, dyspnea or chest pain. She does get short of breath on exertion. However, at rest, she has no problems. She is tolerating liquid diet. PHYSICAL EXAMINATION: Temperature 98.1 degrees Fahrenheit, heart rate 77 per minute and respiratory rate 18 per minute. Blood pressure 130/67 mmHg and oxygen saturation 98% on room air. Head is atraumatic. Neck is supple and without jugular venous distention (JVD) or thyroid enlargement. Heart sounds are regular. Lungs clear to auscultation. Abdomen soft and nontender and bowel sounds are normal. Extremities have no cyanosis or clubbing. Today's labs show WBC count 2.3, hemoglobin 9.8 and hematocrit 29.6. Platelets 101. Sodium 138, potassium 3.9, CO2 21, BUN 39 and creatinine 4.67. AST went up to 88, ALT also 88 and alkaline phosphatase 75. PROBLEMS: 1. Acute pancreatitis. The patient is clinically feeling better. Her abdominal pain has improved and lipase has not been repeated today. Her transaminases did go up. She is tolerating liquid diet. 2. End-stage renal disease. The patient is being dialyzed and she is tolerating her dialysis treatment very well. 3. Pancytopenia. The patient has developed pancytopenia with worsening glucose cytopenia and thrombocytopenia. She is not on any new medications and will need to be watched closely. IV fluid has already been stopped.
[2019-01-15] MEDS: PANTOPRAZOLE 40MG INJ (PROTONIX) (C9113) IV SCH (13:45)
--- NOTE | 2019-01-15 14:29 | IPNPDOC ---
Text Note Date of Service The patient was seen on 01/15/19. 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 She presented to the ER with complaints of abdominal pain over last 2 weeks. In the ER, patient was found to have an elevated lipase and hospitalist service was called for further evaluation and treatment of acute pancreatitis. Imaging in the ER also revealed that the patient had thrombus in the superior vena cava. Dr. Thomas and Dr. Mckenzie were called on consultation. Patient was seen and examined at the bedside. Currently patient notes that her abdominal pain has resolved. She denies any nausea or vomiting. Denies any abdominal pain, constipation, diarrhea. Denies chest pain, shortness of breath or palpitations. Objective: Vitals (See below) General: Lying in bed, no acute distress, comfortable, AAOx3 HEENT: NC, AT CVS: RRR, +S1S2, + R IJ PermaCath Lungs: Fair air entry b/l, -w/r/r Abdomen: Soft, ND, NT Extremities: - Edema, - Calf tenderness Assessment and plan: s/p Abdominal pain - likely 2/2 acute pancreatitis - Presented to the ER with complaints of abdominal pain worsening over last 2 weeks - Physical with epigastric tenderness - Lab work with elevated lipase; no elevation in liver enzymes other than mild elevation of bilirubin - CT ab/pel 01/13: 1. There is no CT evidence of pancreatitis, peripancreatic abscess or pseudocyst. No mass or tone. The pancreatic duct is up to 3.5 mm that has been previously seen and similar to this, unchanged. 2. Prior colectomy and ileostomy is now in the right abdomen. No gross obstruction. Nonspecific gas pattern with a few air-fluid levels in small bowel loops and no abnormal dilatation. 3. Spleen, gallbladder and stomach unremarkable. 4. Severe renal atrophy, 6.8 cm right and 6.7 cm left kidney length. 5. Osteoporosis and degenerative changes in the spine. There is kyphoplasty cement at T12-L2. No new or acute compression fracture. - US Abdomen 01/13: 1. No evidence of cholelithiasis, intrahepatic biliary dilatation, perihepatic ascites or, type dilatation/stone. The common duct is 3.7 mm. 2. Liver homogeneous, pancreas visualized without gross abnormality, the mildly prominent pancreatic duct on CT cannot be defined on this study. 3. Severe renal atrophy with cortical thinning and increased echogenicity consistent with chronic medical renal disease. Multiple cortical cysts ranging three 7 mm. No hydronephrosis. - s/p IV fluids - Diet has been fully advanced SVC Thrombus - Currently patient has no complaints of shortness of breath, chest pain or palpitations - Saturating well on room air - CTA chest 01/13: There are no pulmonary emboli. There is intraluminal thrombus occluding the proximal superior vena cava at its junction with the right subclavian vein with collateral venous flow in the right chest wall. There re also veins and in the internal mammary veins, unchanged from the prior study. 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 - Case has been discussed with Dr. Thomas (vascular surgery); on consultation; will c/w Heparin drip - Bridge to Coumadin; will start with 5mg dose tonight Multiple myeloma - Patient receives dexamethasone once a week - Receives chemotherapy, follows with Dr. 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 Hypothyroidism - Continue with levothyroxine Hearing loss OA - Continue with pain control as per outpatient regimen Left flank post-herpetic neuralgia GI prophylaxis - c/w Protonix DVT prophylaxis - On full anticoagulation with Heparin drip - Bridge to Warfarin VS,Fishbone, I+O VS, Fishbone, I+O Laboratory Tests 01/15/19 04:25 Red Blood Count 2.89 L, Mean Corpuscular Volume 102.4 H, Mean Corpuscular Hemoglobin 33.9 H, Mean Corpuscular Hemoglobin Concent 33.1, Red Cell Distribution Width 15.1 H, Neutrophils (%) (Auto) 54.9, Lymphocytes (%) (Auto) 26.2, Monocytes (%) (Auto) 15.9 H, Eosinophils (%) (Auto) 2.6, Basophils (%) (Auto) 0.0, Neutrophils # (Auto) 1.3 L, Lymphocytes # (Auto) 0.6 L, Monocytes # (Auto) 0.4, Eosinophils # (Auto) 0.1, Basophils # (Auto) 0.0, Calcium Level 7.1 #L, Aspartate Amino Transf (AST/SGOT) 88 H, Alanine Aminotransferase (ALT/SGPT) 88 H, Alkaline Phosphatase 75, Total Bilirubin 0.8, Total Protein 5.0 #L, Albumin 2.7 L 01/15/19 07:48 Red Blood Count 2.90 L, Mean Corpuscular Volume 102.4 H, Mean Corpuscular Hemoglobin 34.5 H, Mean Corpuscular Hemoglobin Concent 33.7, Red Cell Distribution Width 15.1 H, Neutrophils (%) (Auto) 57.3, Lymphocytes (%) (Auto) 29.4, Monocytes (%) (Auto) 10.3 H, Eosinophils (%) (Auto) 1.5, Basophils (%) (Auto) 0.5, Neutrophils # (Auto) 1.2 L, Lymphocytes # (Auto) 0.6 L, Monocytes # (Auto) 0.2, Eosinophils # (Auto) 0.0, Basophils # (Auto) 0.0 01/15/19 11:53 Vital Signs Date Time Temp Pulse Resp B/P (MAP) Pulse Ox O2 Delivery O2 Flow Rate FiO2 01/15/19 11:00 97.5 76 18 109/55 (73) 97 01/13/19 06:41 Room Air I&O- Last 24 Hours up to 6 AM 01/15/19 05:59 Intake Total 2455 ml Output Total 475 ml Balance 1980 ml KINDRA PALACIO MD Jan 15, 2019 14:29
[2019-01-15 16:00] VITALS: BP 95/54
[2019-01-15 18:19] LABS: HEMATOCRIT 31.8 % (36.0-47.0); HEMOGLOBIN 10.8 g/dl (12.0-15.5)
[2019-01-15 18:46] LABS: INR 0.97
[2019-01-15] MEDS: WARFARIN SOD 5 MG TAB PO SCH (19:17)
[2019-01-15 20:00] VITALS: BP 104/58
[2019-01-15] MEDS ORDERED: SLF 3 ML SYR IV PRN (21:15)
[2019-01-15] MEDS: SLF 3 ML SYR IV SCH (22:00)
[2019-01-16] VITALS: BP 105/66
[2019-01-16 04:00] VITALS: BP 105/69
[2019-01-16 05:27] LABS: BASO % 0.4 % (0.0-1.0); EOS % 1.5 % (0.0-3.0); HEMATOCRIT 30.9 % (36.0-47.0); HEMOGLOBIN 10.3 g/dl (12.0-15.5); LYMPH # 0.7 10^3/uL (1.5-4.5); LYMPH % 25.6 % (24.0-44.0); MEAN CORPUSCULAR HEMOGLOBIN 33.9 pg (27.0-33.0); MEAN CORPUSCULAR HGB CONC 33.3 g/dl (32.0-36.5); MEAN CORPUSCULAR VOLUME 101.6 fl (80.0-96.0); MONO # 0.5 10^3/uL (0.0-0.8); MONO % 17.4 % (0.0-5.0); NEUTROPHILS # 1.5 10^3/uL (1.8-7.7); NEUTROPHILS % 54.4 % (36.0-66.0); RED BLOOD COUNT 3.04 10^6/uL (4.00-5.40); WHITE BLOOD COUNT 2.7 10^3/uL (4.0-10.0)
[2019-01-16 05:38] LABS: PLATELET COUNT, AUTOMATED 97 10^3/uL (150-450)
[2019-01-16 05:40] LABS: INR 0.92; PROTHROMBIN TIME 12.5 SECONDS (12.1-14.4)
[2019-01-16 05:59] LABS: BILIRUBIN,TOTAL 0.5 MG/DL (0.2-1.0); CALCIUM LEVEL 8.2 MG/DL (8.8-10.2); CREATININE FOR GFR 3.86 MG/DL (0.55-1.30); GLOMERULAR FILTRATION RATE 12.2 (>39); MAGNESIUM LEVEL 1.8 MG/DL (1.8-2.4); POTASSIUM SERUM 4.1 MEQ/L (3.5-5.1); TOTAL PROTEIN 5.9 GM/DL (6.4-8.2)
[2019-01-16] MEDS: LEVOTHYROXINE 50MCG TABLET (0.05MG) PO SCH (06:13)
[2019-01-16] MEDS: SLF 3 ML SYR IV SCH ×3 (06:13→21:19)
[2019-01-16 08:00] VITALS: BP 121/69
[2019-01-16] MEDS: VITAMIN D 1,000 INTERNATIONAL UNITS TABLET PO SCH (08:23)
[2019-01-16] MEDS: ENOXAPARIN 40 MG/0.4 ML SYRINGE (J1650) SC SCH (09:35)
--- NOTE | 2019-01-16 10:19 | IPNPDOC ---
Text Note Date of Service The patient was seen on 01/16/19. 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 She presented to the ER with complaints of abdominal pain over last 2 weeks. In the ER, patient was found to have an elevated lipase and hospitalist service was called for further evaluation and treatment of acute pancreatitis. Imaging in the ER also revealed that the patient had thrombus in the superior vena cava. Dr. Thomas and Dr. Mckenzie were called on consultation. Patient was interviewed and examined at bedside in the PCU. She appears in good spirits, denies any abdominal pain or discomfort since mid-morning of 01/14. No chest pain/discomfort, palpitations or difficulty breathing, cough or wheezing. No nausea or vomiting. Her ostomy output volume has normalized. She continues to have a small amount of urine production, which is normal for her. Patient is scheduled to have her chemotherapy medications tomorrow. Her daughter will be bringing in her medication today so that she may take them tomorrow and remain on schedule. OBJECTIVE: VITALS: (See below) GENERAL: Alert and oriented, in hospital gown, seated upright in bed, able to participate in her own care HEENT: Normocephalic, atraumatic HEART: Regular rate and rythmn, normal S1 and S2 CHEST: R IJ PermaCath LUNGS: Clear to auscultation bilaterally, no wheezing, rales or rhonchi. ABDOMEN: Soft, nontender to palpation, ostomy bag noted, no erythema, moderate output EXTREMITIES: No swelling in lower legs, radial and PT pulses 2+ and equal bilat erally Labs: Please see below Imaging: Chest CT (01/13): There are no pulmonary emboli. There is intraluminal thrombus occluding the proximal superior vena cava at its junction with the right subcl estefany vein with collateral venous flow in the right chest wall. There re also veins and in the internal mammary veins, unchanged from the prior study. 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 Abd/Pelvis CT (01/13): 1. No evidence of pancreatitis, peripancreatic abscess or pseudocyst. No mass or tone. The pancreatic duct is up to 3.5 mm that has been previously seen and similar to this, unchanged. Prior colectomy and ileostomy is now in the right abdomen. No gross obstruction. Nonspecific gas pattern with a few air-fluid levels in small bowel loops and no abnormal dilatation. Spleen, gallbladder and stomach unremarkable.Severe renal atrophy, 6.8 cm right and 6.7 cm left kidney length. Osteoporosis and degenerative changes in the spine. There is kyphoplasty cement at T12-L2. No new or acute compression fracture. Abd US (01/13): No evidence of cholelithiasis, intrahepatic biliary dilatation, perihepatic ascites or, type dilatation/stone. The common duct is 3.7 mm. 2. Liver homogeneous, pancreas visualized without gross abnormality, the mildly prominent pancreatic duct on CT cannot be defined on this study. 3. Severe renal atrophy with cortical thinning and increased echogenicity consistent with chronic medical renal disease. Multiple cortical cysts ranging three 7 mm. No hydronephrosis. Microbio: 1. Blood cultures negative after 72 hours 2. Stool Occult pending Assessment and plan: 1. S/P Abdominal pain - likely 2/2 acute pancreatitis - Presented to the ER with complaints of abdominal pain worsening over last 2 weeks - Epigastric tenderness on initial examination, No tenderness on today's exam. - Lab work with elevated lipase; no elevation in liver enzymes other than mild elevation of bilirubin - s/p IV fluids - Diet has been fully advanced 2. SVC Thrombus - Currently patient has no complaints of shortness of breath, chest pain or palpitations - Saturating well on room air - INR subtherapeutic; will continue with bridge; will provide renally dosed therapeutic Lovenox until target INR of 2-3 achieved - CTA chest 01/13: - Case has been discussed with Dr. Thomas (vascular surgery); Started on 5mg Coumadin last evening 3. Multiple myeloma - Patient receives dexamethasone once a week - Receives chemotherapy, follows with Dr. Jessy Saab - Patient's daughter will be bringing in her chemotherapy medication today - Scheduled to take medication tomorrow (01/17/19). 4. 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 Crohns disease status post ileostomy with colectomy 6. Anemia - Hemoglobin appears to be stable around 09/01 - D/C IV fluids 7. 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 Hypothyroidism - Continue with levothyroxine 9. GI prophylaxis - c/w Protonix 10. OA - Continue with pain control as per outpatient regimen 11. Left flank post-herpetic neuralgia 12. Hearing loss DVT prophylaxis - Lovenox 40mg (renally adjusted therapeutic dose) and Sequentials VS,Fishbone, I+O VS, Fishbone, I+O Laboratory Tests 01/15/19 11:53 01/15/19 17:53 01/16/19 01:00 01/16/19 05:03 Red Blood Count 3.04 L, Mean Corpuscular Volume 101.6 H, Mean Corpuscular Hemoglobin 33.9 H, Mean Corpuscular Hemoglobin Concent 33.3, Red Cell Distribution Width 15.1 H, Neutrophils (%) (Auto) 54.4, Lymphocytes (%) (Auto) 25.6, Monocytes (%) (Auto) 17.4 H, Eosinophils (%) (Auto) 1.5, Basophils (%) (Auto) 0.4, Neutrophils # (Auto) 1.5 L, Lymphocytes # (Auto) 0.7 L, Monocytes # (Auto) 0.5, Eosinophils # (Auto) 0.0, Basophils # (Auto) 0.0, Calcium Level 8.2 #L, Aspartate Amino Transf (AST/SGOT) 40 H, Alanine Aminotransferase (ALT/SGPT) 63, Alkaline Phosphatase 71, Total Bilirubin 0.5, Total Protein 5.9 L, Albumin 3.0 L Vital Signs Date Time Temp Pulse Resp B/P (MAP) Pulse Ox O2 Delivery O2 Flow Rate FiO2 01/16/19 08:00 98.1 72 16 121/69 (86) 98 01/13/19 06:41 Room Air I&O- Last 24 Hours up to 6 AM 01/16/19 06:00 Intake Total 960 ml Output Total 1400 ml Balance -440 ml GME ATTESTATION GME ATTESTATION My faculty preceptor for this patient encounter was physically present during the encounter and was fully available. All aspects of the patient interview, examination, medical decision making process, and medical care plan development were reviewed and approved by the faculty preceptor. The faculty preceptor is aware and concurs with the plan as stated in the body of this note and will attest to such by his/her cosignature. ATTENDING NOTE I, Cary Dillon, have both independently examined this patient as well as reviewed the documentation. I have discussed in detail with the resident the findings and plan of treatment as documented in the residents documentation. I will continue to follow the patient and offer further guidance to the patients care as necessary during this hospital stay. TAHIRA PETERSON DO Jan 16, 2019 10:19 CARY DILLON MD Jan 16, 2019 16:25
[2019-01-16 12:00] VITALS: BP 99/59
[2019-01-16] MEDS: PANTOPRAZOLE 40MG INJ (PROTONIX) (C9113) IV SCH (13:15)
[2019-01-16 16:00] VITALS: BP 101/60
[2019-01-16] MEDS: WARFARIN SOD 5 MG TAB PO SCH (17:07)
[2019-01-16 20:00] VITALS: BP 102/59
[2019-01-17] VITALS (7 sets, daily range): BP systolic 117–144; BP diastolic 61–76
[2019-01-17 05:36] LABS: BASO % 0.4 % (0.0-1.0); EOS % 1.6 % (0.0-3.0); HEMATOCRIT 29.4 % (36.0-47.0); LYMPH # 0.7 10^3/uL (1.5-4.5); MEAN CORPUSCULAR HEMOGLOBIN 34.6 pg (27.0-33.0); MEAN CORPUSCULAR VOLUME 101.7 fl (80.0-96.0); MONO # 0.4 10^3/uL (0.0-0.8); NEUTROPHILS # 1.3 10^3/uL (1.8-7.7); NEUTROPHILS % 52.2 % (36.0-66.0); RED BLOOD COUNT 2.89 10^6/uL (4.00-5.40); WHITE BLOOD COUNT 2.5 10^3/uL (4.0-10.0)
[2019-01-17 05:40] LABS: PLATELET COUNT, AUTOMATED 94 10^3/uL (150-450)
[2019-01-17 05:45] LABS: PROTHROMBIN TIME 13.3 SECONDS (12.1-14.4)
[2019-01-17 05:56] LABS: ALBUMIN 2.8 GM/DL (3.2-5.2); BILIRUBIN,TOTAL 0.4 MG/DL (0.2-1.0); CALCIUM LEVEL 7.9 MG/DL (8.8-10.2); CREATININE FOR GFR 4.73 MG/DL (0.55-1.30); GLOMERULAR FILTRATION RATE 9.7 (>39); MAGNESIUM LEVEL 1.8 MG/DL (1.8-2.4); POTASSIUM SERUM 4.2 MEQ/L (3.5-5.1); TOTAL PROTEIN 5.5 GM/DL (6.4-8.2)
[2019-01-17] MEDS: SLF 3 ML SYR IV SCH (06:07)
[2019-01-17] MEDS: LEVOTHYROXINE 50MCG TABLET (0.05MG) PO SCH (06:07)
[2019-01-17] MEDS: ENOXAPARIN 40 MG/0.4 ML SYRINGE (J1650) SC SCH (08:14)
[2019-01-17] MEDS: VITAMIN D 1,000 INTERNATIONAL UNITS TABLET PO SCH (08:14)
[2019-01-17] MEDS: PANTOPRAZOLE 40MG TAB (PROTONIX) PO SCH (08:14)
--- NOTE | 2019-01-17 13:47 | IPN ---
DATE OF SERVICE: 01/16/2019 SUBJECTIVE: The patient was seen and examined at the bedside today morning. She is afebrile, hemodynamically stable. She was dialyzed yesterday. 500 mL of fluid was removed. She denies any active complaints at this point. OBJECTIVE: Vital signs: Temperature is 97.8 degrees Fahrenheit, blood pressure 99/59, pulse is 69, respiratory rate of 18, saturating 98% on room air. Intake and output: Urine output is not recorded. Ultrafiltration with hemodialysis was 500 mL, 750 mL so far today since overnight. Weight in the bed scale is 47 kg. PHYSICAL EXAMINATION: General: The patient is awake, alert, oriented times three, lying in bed, no apparent distress. Head and neck examination: Extraocular muscles intact. Pupils equally round and reactive to light. Mucous membranes are moist. Neck is supple. There is no jugular venous distention (JVD). Cardiovascular: S1, S2, regular rate. No murmur, rub, and gallop. Respiratory: Chest is clear to auscultation bilaterally. Bilateral equal air entry. No rales or rhonchi. Abdomen: Is soft. Positive bowel sounds. Nontender. Musculoskeletal: No clubbing or cyanosis. Pulses are 2+. Central nervous system ([employer]): No focal deficit. Power is 5/5 in all extremities. LABORATORY REVIEW: Complete blood count (CBC) showed a WBC of 2.7, hemoglobin 10.3, platelets are 97. Basic metabolic profile (BMP) showed sodium 139, potassium 4.1, chloride 107, bicarbonate 24, BUN 29, creatinine is 3.8. CURRENT INPATIENT MEDICATIONS: The patient's medications were all reviewed by me. Intravenous (IV) Protonix has been stopped. The patient has been started on daily Protonix starting from tomorrow. No other change in the medications today as compared with yesterday. ASSESSMENT AND PLAN: 1. End-stage renal disease, on hemodialysis. The patient was dialyzed yesterday. She tolerated the hemodialysis procedure well. 2. Acute pancreatitis. She is clinically better. Her abdominal pain is better. She is tolerating the oral diet now. 3. Pancytopenia. The patient's white cell count and platelets are improving. Hemoglobin is stable at 10.3. 4. SVC thrombosis. The patient is currently on Coumadin. International normalized ratio (INR) is subtherapeutic. Management is as per primary team. 5. Multiple myeloma. The patient can get chemotherapy as outpatient. Hemoglobin is within the acceptable limit.
--- NOTE | 2019-01-17 14:07 | IPNPDOC ---
Text Note Date of Service The patient was seen on 01/17/19. 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 She presented to the ER with complaints of abdominal pain over last 2 weeks. In the ER, patient was found to have an elevated lipase and hospitalist service was called for further evaluation and treatment of acute pancreatitis. Imaging in the ER also revealed that the patient had thrombus in the superior vena cava. Dr. Thomas and Dr. Mckenzie were called on consultation. Patient was seen and examined at the bedside. Patient has no new complaints this morning. Advised her that her INR still not therapeutic. She denies any chest pain, shortness of breath or palpitations. Has not experienced abdominal pain, nausea, vomiting, diarrhea, constipation. Objective: Vitals (See below) General: Lying in bed, no acute distress, comfortable, AAOx3 HEENT: NC, AT CVS: RRR, +S1S2, + R IJ PermaCath Lungs: Fair air entry b/l, auscultation is without rhonchi, rales or wheezing Abdomen: Remains soft without distention or tenderness Extremities: No evidence of lower extremity edema, - Calf tenderness Assessment and plan: s/p Abdominal pain - likely 2/2 acute pancreatitis - Clinically has had full resolution of abdominal pain - Lab work with elevated lipase; no elevation in liver enzymes other than mild elevation of bilirubin - CT ab/pel 01/13: 1. There is no CT evidence of pancreatitis, peripancreatic abscess or pseudocyst. No mass or tone. The pancreatic duct is up to 3.5 mm that has been previously seen and similar to this, unchanged. 2. Prior colect nereida and ileostomy is now in the right abdomen. No gross obstruction. Nonspecific gas pattern with a few air-fluid levels in small bowel loops and no abnormal dilatation. 3. Spleen, gallbladder and stomach unremarkable. 4. Severe renal atrophy, 6.8 cm right and 6.7 cm left kidney length. 5. Ost eoporosis and degenerative changes in the spine. There is kyphoplasty cement at T12-L2. No new or acute compression fracture. - US Abdomen 01/13: 1. No evidence of cholelithiasis, intrahepatic biliary dilatation, perihepatic ascites or, type dilatation/stone. The common duct is 3.7 mm. 2. Liver homogeneous, pancreas visualized without gross abnormality, the mildly prominent pancreatic duct on CT cannot be defined on this study. 3. Severe renal atrophy with cortical thinning and increased echogenicity consistent with chronic medical renal disease. Multiple cortical cysts ranging three 7 mm. No hydronephrosis. - s/p IV fluids - Diet has been fully advanced SVC Thrombus - Currently patient has no complaints of shortness of breath, chest pain or palpitations - Saturating well on room air - INR remains sub-therapeutic - CTA chest 01/13: There are no pulmonary emboli. There is intraluminal thrombus occluding the proximal superior vena cava at its junction with the right subclavian vein with collateral venous flow in the right chest wall. There re also veins and in the internal mammary veins, unchanged from the prior study. 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 - Case has been discussed with Dr. Thomas (vascular surgery); on consultation; - Will continue with Lovenox therapeutic dosing and bridged with warfarin; will give 10 mg dose tonight - If patient's INR fails to become therapeutic by tomorrow, will discharge with Lovenox and Coumadin Multiple myeloma - Patient receives dexamethasone once a week - Receives chemotherapy, follows with Dr. 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 Hypothyroidism - Continue with levothyroxine Hearing loss OA - Continue with pain control as per outpatient regimen Left flank post-herpetic neuralgia GI prophylaxis - c/w Protonix DVT prophylaxis - On full anticoagulation with Heparin drip - Bridge to Warfarin VS,Fishbone, I+O VS, Fishbone, I+O Laboratory Tests 01/17/19 04:56 Red Blood Count 2.89 L, Mean Corpuscular Volume 101.7 H, Mean Corpuscular Hemogl obin 34.6 H, Mean Corpuscular Hemoglobin Concent 34.0, Red Cell Distribution Width 15.0 H, Neutrophils (%) (Auto) 52.2, Lymphocytes (%) (Auto) 30.0, Monocytes (%) (Auto) 15.0 H, Eosinophils (%) (Auto) 1.6, Basophils (%) (Auto) 0.4, Neutrophils # (Auto) 1.3 L, Lymphocytes # (Auto) 0.7 L, Monocytes # (Auto) 0.4, Eosinophils # (Auto) 0.0, Basophils # (Auto) 0.0, Calcium Level 7.9 L, Aspartate Amino Transf (AST/SGOT) 28, Alanine Aminotransferase (ALT/SGPT) 42, Alkaline Phosphatase 65, Total Bilirubin 0.4, Total Protein 5.5 L, Albumin 2.8 L Vital Signs Date Time Temp Pulse Resp B/P (MAP) Pulse Ox O2 Delivery O2 Flow Rate FiO2 01/17/19 12:00 98.3 76 18 124/67 (86) 98 01/13/19 06:41 Room Air I&O- Last 24 Hours up to 6 AM 01/17/19 06:00 Intake Total 520 ml Output Total 750 ml Balance -230 ml KINDRA PALACIO MD Jan 17, 2019 14:07
[2019-01-17] MEDS ORDERED: WARFARIN SOD 5 MG TAB PO ONE (17:00)
[2019-01-17] MEDS: WARFARIN SOD 5 MG TAB PO SCH (17:03)
[2019-01-18 04:00] VITALS: BP 144/73
[2019-01-18 05:14] LABS: BASO % 0.1 % (0.0-1.0); HEMATOCRIT 31.6 % (36.0-47.0); HEMOGLOBIN 10.6 g/dl (12.0-15.5); LYMPH % 9.4 % (24.0-44.0); MEAN CORPUSCULAR HEMOGLOBIN 34.5 pg (27.0-33.0); MEAN CORPUSCULAR HGB CONC 33.5 g/dl (32.0-36.5); MEAN CORPUSCULAR VOLUME 102.9 fl (80.0-96.0); MONO # 0.7 10^3/uL (0.0-0.8); MONO % 6.6 % (0.0-5.0); NEUTROPHILS % 83.5 % (36.0-66.0); PLATELET COUNT, AUTOMATED 116 10^3/uL (150-450); RED BLOOD COUNT 3.07 10^6/uL (4.00-5.40); WHITE BLOOD COUNT 10.7 10^3/uL (4.0-10.0)
[2019-01-18 05:26] LABS: INR 1.18; PROTHROMBIN TIME 15.2 SECONDS (12.1-14.4)
[2019-01-18 05:38] LABS: BILIRUBIN,TOTAL 0.4 MG/DL (0.2-1.0); CALCIUM LEVEL 8.7 MG/DL (8.8-10.2); CREATININE FOR GFR 5.48 MG/DL (0.55-1.30); GLOMERULAR FILTRATION RATE 8.2 (>39); MAGNESIUM LEVEL 1.9 MG/DL (1.8-2.4); POTASSIUM SERUM 4.5 MEQ/L (3.5-5.1); TOTAL PROTEIN 5.9 GM/DL (6.4-8.2)
[2019-01-18] MEDS: LEVOTHYROXINE 50MCG TABLET (0.05MG) PO SCH (06:41)
[2019-01-18 07:00] VITALS: BP 133/69
[2019-01-18] MEDS: VITAMIN D 1,000 INTERNATIONAL UNITS TABLET PO SCH (08:21)
[2019-01-18] MEDS: PANTOPRAZOLE 40MG TAB (PROTONIX) PO SCH (08:21)
[2019-01-18] MEDS: ENOXAPARIN 40 MG/0.4 ML SYRINGE (J1650) SC SCH (08:22)
[2019-01-18] MEDS ORDERED: OMEP40CA2 PO (09:47)
[2019-01-18] MEDS ORDERED: LOVE1INJ SC (09:47)
[2019-01-18] MEDS ORDERED: COUM1TAB17 PO (09:47)
--- NOTE | 2019-01-18 10:18 | IPN ---
DATE OF SERVICE: 01/17/2019 SUBJECTIVE: The patient was seen and examined at the bedside today morning. She is afebrile and hemodynamically stable. Her INR is still subtherapeutic. Otherwise she denies any active complaints at this point. OBJECTIVE: Vital Signs: Temperature 98.3 degrees Fahrenheit. Blood pressure 124/67. Pulse 76. Respiratory rate 18. Saturating 98% on room air. Intake and Output: Stool output recorded as 300 mL. There is no urine output recorded. Weight on the bed scale is 44.8 kg. PHYSICAL EXAMINATION: General: The patient is awake, alert, and oriented times three laying in bed in no apparent distress. Head and Neck Exam: Extraocular muscles intact. Pupils equally round and reactive to light. Mucous membranes are moist. Neck is supple. There is no jugular venous distention (JVD. Cardiovascular: S1 and S2, regular rate. No murmur, rub or gallop. No edema of the bilateral lower extremities. Respiratory: Chest is clear to auscultation bilaterally. Bilateral equal air entry. No rales or rhonchi. Abdomen soft. Positive bowel sounds. Nontender. No organomegaly. Musculoskeletal: No clubbing or cyanosis. Pulses are 2+. Central Nervous System: No focal deficit. Power is 5/5 in all extremities. LAB REVIEW: CBC showed a WBC of 2.5, hemoglobin 10, platelets 94. BMP showed sodium 139, potassium 4.2, chloride 109, bicarbonate 21, BUN 41, creatinine 4.7. INR is 1. CURRENT INPATIENT MEDICATIONS: Patient's medications were all reviewed by me. She is on Coumadin 5 mg starting from tonight which has been increased from 3 mg. No other change in medications today as compared with yesterday. ASSESSMENT AND PLAN: 1. End stage renal disease on hemodialysis. The patient's regular dialysis days are Friday, Friday, Friday. If patient is here by tomorrow, she will be dialyzed according to her regular schedule. 2. Pancytopenia. The patient is getting outpatient chemotherapy for multiple myeloma. Hemoglobin level is acceptable at this time. 3. Multiple myeloma. She is currently in relapse at this time and getting outpatient chemotherapy. She is scheduled to see hematology next week. 4. SVC thrombosis. INR is still subtherapeutic. Coumadin dose has been increased to 5 mg daily.
--- NOTE | 2019-01-18 13:50 | IPN ---
DATE OF SERVICE: 01/18/2019 SUBJECTIVE: The patient was seen and examined at the bedside today morning. She is afebrile and hemodynamically stable. She reports that she was seen by vascular surgery today and she needs to follow up with them as an outpatient. She is otherwise stable. She is going to go home on Coumadin. The dose will be monitored at the dialysis center. She denies any active complaints at this point. OBJECTIVE: Vital Signs: Temperature 97.7 degrees Fahrenheit. Blood pressure 133/69. Pulse 74. Respiratory rate 17. Saturating 97% on room air. Intake and Output: There is no urine output recorded. Stool output is 550 mL. Weight on the bed scale is 47.5 kg. PHYSICAL EXAMINATION: General: Patient is awake, alert and oriented times three sitting up in the bed in no apparent distress. Head and Neck Exam: Extraocular muscles intact. Pupils equally round and reactive to light. Mucous membranes are moist. Neck is supple. There is no jugular venous distention (JVD). Cardiovascular: S1 and S2. Regular rate. No murmur, rub or gallop. Respiratory: Chest is clear to auscultation bilaterally. Bilateral equal air entry. No rales or rhonchi. Abdomen: Soft. Positive bowel sounds. Nontender. Musculoskeletal: No clubbing or cyanosis. Pulses are 2+. Central Nervous System: No focal deficit. Power is 5/5 in all extremities. LAB REVIEW: CBC showed a WBC of 10.7, hemoglobin 10.6, platelets 116. BMP showed sodium 140, potassium 4.5, chloride 110, bicarbonate 20, BUN 56, creatinine 5.4. CURRENT INPATIENT MEDICATIONS: The patient's medications were all reviewed by me. Coumadin dose has been increased to 5 mg daily. No other change in the medications today as compared with yesterday. ASSESSMENT AND PLAN: 1. End stage renal disease on hemodialysis. The patient's regular dialysis days are Friday, Friday, Friday. She will be discharged today and she will be dialyzed today in the afternoon as an outpatient. 2. Multiple myeloma. The patient is going to see hematology as outpatient. She is currently on chemotherapy. 3. SVC thrombosis. INR is still subtherapeutic. Coumadin dose will be adjusted as outpatient at dialysis center. 4. Disposition. It is okay to discharge the patient from a nephrology standpoint. She has a 1:00 p.m. dialysis spot in the outpatient clinic.
--- NOTE | 2019-01-18 16:47 | DS.PDOC ---
Discharge Summary General Date of Admission Jan 13, 2019 at 13:33 Date of Discharge Jan 18, 2019 Attending Physician: KINDRA PALACIO MD Specialist/Consultants Involve Vascular Surgery, Nephrology Discharge Summary ADMITTING DIAGNOSES: 1. Acute pancreatitis 2. Proximal superior vena cava thrombus 3. Multiple myeloma 4. End-stage renal disease 5. Anemia 6. Crohn's disease s/p ileostomy with colectomy DISCHARGE DIAGNOSES: 1. Proximal superior vena cava thrombus 2. Multiple myeloma 3. End-stage renal disease 4. Anemia 5. 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 She presented to the ER with complaints of abdominal pain over last 2 weeks. She noted that the pain was mostly in her upper abdomen. Patient denied any alleviating or aggravating factors. She denied any significant nausea or vomiting. Patient has an ileostomy present; has noted increased output from the ostomy site; requiring change approximately 10 times a day (typically only 4-5x on a usual day). Patient notes that she denies any chest pain. Has some shortness of breath. Denies cough, fevers. Noted some chills. Patient makes urine and denies any discomfort with urination.Patient has been on chemotherapy since May 2018 for her multiple myeloma. Patient noted a 10 pound weight loss in about 2-3 weeks. In the emergency room, patient found to have an elevated lipase. Hospitalist service was called for further evaluation and treatment. HOSPITAL COURSE: Patient was admitted to the floor. Lavation's and a lipase are suspected to indicate acute pancreatitis. Other causes of abdominal pain were ruled out with an abdominal/pelvis CT and follow-up right upper quadrant ultrasound. Patient's pancreatitis was treated with IV fluids. Her diet was slowly advanced as tole rated. Given that the patient is on hemodialysis (MWF) secondary to her multiple myeloma, nephrology was consulted and their input greatly appreciated. During the patient's pancreatitis workup a proximal superior's vena cable thrombus was noted incidentally on imaging. It was believe this is secondary to the patient's relatively recent PermCath placement Vascular surgery was consulted and the patient was started on a heparin drip. The patient was bridged with warfarin and continued on Lovenox. Her INRs were followed. Patient was discharged home today and continued on 5 mg of warfarin. Patient will be scheduled for her hemodialysis later this afternoon. She has an appointment scheduled with Dr. Thomas (vascular surgery) on . Patient's INR will be assessed on a regular hemodialysis days. DISCHARGE MEDICATIONS: Please see below. ALLERGIES: Please see below. PHYSICAL EXAMINATION ON DISCHARGE: VITAL SIGNS: Please see below. GENERAL: Patient is awake, alert, oriented and in no acute distress. She is sitting upright in bed, anxious regarding her discharge. HEENT: Normocephalic, atraumatic, EOMI, PERRLA NECK: Supple, no lymphadenopathy, no tracheal deviation CARDIOVASCULAR EXAMINATION: Regular rate and rhythm, normal S1 and S2, no murmurs gallops or rubs RESPIRATORY EXAMINATION: Clear to auscultation bilaterally with good air movement ABDOMINAL EXAMINATION: Soft, nontender, no masses or hepatosplenomegaly appreciated EXTREMITIES: No lower extremity swelling or calf tenderness SKIN: No new or changing lesions NEUROLOGICAL EXAMINATION: No focal neurologic deficits PSYCHIATRIC EXAMINATION: Mood and affect are appropriate LABORATORY DATA: Please see below. IMAGING: Angio CT: There are no pulmonary emboli. There is intraluminal thrombus occluding the proximal superior vena cava at its junction with the right subclavian vein with collateral venous flow in the right chest wall. There are also veins and in the internal mammary veins, unchanged from the prior study. 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 Abd/Pel CT: There is no CT evidence of pancreatitis, peripancreatic abscess or pseudocyst. No mass or stone. The pancreatic duct is up to 3.5 mm that has been previously seen and similar to this, unchanged. Prior colectomy and ileostomy is now in the right abdomen. No gross obstruction. Nonspecific gas pattern with a few air fluid levels in small bowel loops and no abnormal dilatation. Spleen, gallbladder and stomach unremarkable. Severe renal atrophy, 6.8 cm right and 6.7 cm left kidney length. Osteoporosis and degenerative changes in the spine. There is kyphoplasty cement at T12-L2. No new or acute compression fracture. Abd US: No evidence of cholelithiasis, intrahepatic biliary dilatation, pe rihepatic ascites or, type dilatation/stone. The common duct is 3.7 mm. Liver homogeneous, pancreas visualized without gross abnormality, the mildly prominent pancreatic duct on CT cannot be defined on this study. Severe renal atrophy with cortical thinning and increased echogenicity consistent with chronic medical renal disease. Multiple cortical cysts ranging three 7 mm. No hydronephrosis. ACTIVITY: As tolerated DIET: As tolerated DISPOSITION: Home, Self-Care. DISCHARGE INSTRUCTIONS: 1. Continue with 5 mg of Coumadin Daily, dosage to be adjusted at outpatient dialysis center 2. HD this afternoon at 1300 as an outpatient, continue regular MWF schedule thereafter 3. Follow-up appointment with Dr. Thomas on 01/21/19 DISCHARGE CONDITION: Stable TIME SPENT ON DISCHARGE: Greater than 25 minutes. Vital Signs/I&Os Vital Signs Date Time Temp Pulse Resp B/P (MAP) Pulse Ox O2 Delivery O2 Flow Rate FiO2 01/18/19 07:00 97.7 74 17 133/69 (90) 97 01/13/19 06:41 Room Air I&O- Last 24 Hours up to 6 AM 01/18/19 06:00 Intake Total 2400 ml Output Total 1150 ml Balance 1250 ml Laboratory Data Labs 24H Laboratory Tests 2 01/18/19 04:57: Immature Granulocyte % (Auto) 0.4, White Blood Count 10.7H, Red Blood Count 3.07L, Hemoglobin 10.6L, Hematocrit 31.6L, Mean Corpuscular Volume 102.9H, Mean Corpuscular Hemoglobin 34.5H, Mean Corpuscular Hemoglobin Concent 33.5, Red Cell Distribution Width 15.3H, Platelet Count 116L, Neutrophils (%) (Auto) 83.5H, Lymphocytes (%) (Auto) 9.4L, Monocytes (%) (Auto) 6.6H, Eosinophils (%) (Auto) 0.0, Basophils (%) (Auto) 0.1, Neutrophils # (Auto) 9.0H, Lymphocytes # (Auto) 1.0L, Monocytes # (Auto) 0.7, Eosinophils # (Auto) 0.0, Basophils # (Auto) 0.0, Nucleated Red Blood Cells % (auto) 0.0, Prothrombin Time 15.2H, Prothromb Time International Ratio 1.18, Anion Gap 10, Glomerular Filtration Rate 8.2L, Blood Urea Nitrogen 56H, Creatinine 5.48H, Sodium Level 140, Potassium Level 4.5, Chloride Level 110H, Carbon Dioxide Level 20L, Calcium Level 8.7L, Aspartate Amino Transf (AST/SGOT) 20, Alanine Aminotransferase (ALT/SGPT) 43, Alkaline Phosphatase 70, Total Bilirubin 0.4, Total Protein 5.9L, Albumin 3.0L, Magnesium Level 1.9, Albumin/Globulin Ratio 1.03 CBC/BMP Laboratory Tests 01/18/19 04:57 Red Blood Count 3.07 L, Mean Corpuscular Volume 102.9 H, Mean Corpuscular Hem oglobin 34.5 H, Mean Corpuscular Hemoglobin Concent 33.5, Red Cell Distribution Width 15.3 H, Neutrophils (%) (Auto) 83.5 H, Lymphocytes (%) (Auto) 9.4 L, Monocytes (%) (Auto) 6.6 H, Eosinophils (%) (Auto) 0.0, Basophils (%) (Auto) 0.1, Neutrophils # (Auto) 9.0 H, Lymphocytes # (Auto) 1.0 L, Monocytes # (Auto) 0.7, Eosinophils # (Auto) 0.0, Basophils # (Auto) 0.0, Calcium Level 8.7 L, Aspartate Amino Transf (AST/SGOT) 20, Alanine Aminotransferase (ALT/SGPT) 43, Alkaline Phosphatase 70, Total Bilirubin 0.4, Total Protein 5.9 L, Albumin 3.0 L Microbiology Microbiology 01/13/19 Blood Culture - Final, Complete NO GROWTH AFTER 5 DAYS 01/13/19 Blood Culture - Final, Complete NO GROWTH AFTER 5 DAYS Discharge Medications Scheduled (Restasis) 0.05 % Emu, 1 DROP OU BID, (Reported) (Ensure) 1 Liq Liq, 1 DOSE PO TID, (Reported) TAKES IN BETWEEN MEALS. Cholecalciferol (Vitamin D-3) 2,000 Unit Tab, 2,000 UNIT PO DAILY, (Reported) Dexamethasone (Dexamethasone) 4 Mg Tab, 12 MG PO QWEEK, (Reported) TAKES ON SUNDAYS Diphenhydramine HCl (Benadryl Allergy) 25 Mg Cap, 25 MG PO 3XW, (Reported) TAKES PRIOR TO DIALYSIS M,W,F Enoxaparin Sodium (Lovenox) 40 Mg/0.4 Ml Inj, 40 MG SC Q24H 1 month supply with needles Ixazomib Citrate (Ninlaro) 3 Mg Cap, 3 MG PO ASDIRECTED, (Reported) TAKES ON DAY 1,8,15 OF 22 DAY CYCLE. LAST DOSE WAS DAY 8 OF CYCLE Levothyroxine Sodium (Unithroid Direct) 50 Mcg Tab, 50 MCG PO DAILY, (Reported) Omeprazole (Omeprazole) 40 Mg Cap, 1 CAP PO DAILY Sodium Polystyrene Sulfonate (Kionex) 15 Gm/60 Ml Teena, 60 ML PO ASDIRECTED, (Reported) PATIENT ONLY TAKES IF DIRECTED BY DOCTOR. Warfarin Sod (Coumadin) 5 Mg Tab, 5 MG PO DAILY@17 Scheduled PRN (Tylenol Pm Extra Strength 500-25 mg) 1 Tab Tab, 2 TAB PO QHS PRN for PAIN, (Reported) Acetaminophen (Apap) 325 Mg Tab, 650 MG PO Q6H PRN for PAIN, (Reported) Acetaminophen/Hydrocodone ([place] 5-325 mg) 1 Tab Tab, 2 TAB PO Q4H PRN for PAIN, (Reported) Allergies Coded Allergies: Vancomycin (Verified Allergy, Intermediate, RASH/ITCHING, 11/10/18) GME ATTESTATION GME ATTESTATION My faculty preceptor for this patient encounter was physically present during the encounter and was fully available. All aspects of the patient interview, examination, medical decision making process, and medical care plan development were reviewed and approved by the faculty preceptor. The faculty preceptor is aware and concurs with the plan as stated in the body of this note and will attest to such by his/her cosignature. TAHIRA PETERSON DO Jan 18, 2019 16:47
== END 2019-01-18 11:30 | disposition home or self-care (01) | DRG 438 ==
LOC: M ED 06:33 → M ED INP 13:33 → M PCU 21:05
PROVIDERS: ADMIT Internal Medicine; ATTEND Internal Medicine
PROC: 5A1D70Z Performance of Urinary Filtration, Intermittent, Less than 6 Hours Per Day (ICD-10-PCS; principal; 2019-01-13)
DX: K85.90 Acute pancreatitis without necrosis or infection, unspecified (principal); N18.6 End stage renal disease; B02.29 Other postherpetic nervous system involvement; C90.02 Multiple myeloma in relapse; E87.2 Acidosis; I82.210 Acute embolism and thrombosis of superior vena cava; D61.818 Other pancytopenia; D64.9 Anemia, unspecified; G62.0 Drug-induced polyneuropathy; H91.90 Unspecified hearing loss, unspecified ear; T45.1X5A Adverse effect of antineoplastic and immunosuppressive drugs, initial encounter; Z99.2 Dependence on renal dialysis; Z93.2 Ileostomy status; Z90.49 Acquired absence of other specified parts of digestive tract; Z79.899 Other long term (current) drug therapy; Z88.1 Allergy status to other antibiotic agents; Z85.820 Personal history of malignant melanoma of skin; Z87.891 Personal history of nicotine dependence

== ENCOUNTER → 2019-01-21 | Outpatient (CLI) | payer MEDICARE, OTHER ==
[~2019-01-21] MED LIST changes: +COUM1TAB17 PO; +ENSULIQ9 PO; +ISOVUE-300 61% 50ML VIAL (Q9967) As Ordered ONE; +LEVO50TA45 PO; +LIDOCAINE 2% MDV 20 ML VIAL As Ordered ONE; +LOVE1INJ SC; -NORC1TAB4 PO; +NORC1TAB7 PO; +OMEP40CA2 PO; +WARF-21 PO; +WARF-23 PO
[2019-01-21 10:50] LABS: INR 1.66; PROTHROMBIN TIME 19.9 SECONDS (12.1-14.4)
--- NOTE | 2019-02-03 11:59 | REPIR ---
DATE OF PROCEDURE: 01/21/2019 ATTENDING SURGEON: Dr. Breonna Thomas CARDIOVASCULAR SURGICAL TECH: Judith Ocasio and Anuradha Hart PREOPERATIVE DIAGNOSES: End-stage renal disease. Superior vena cava thrombus. Poor venous access for arteriovenous fistula creation. POSTOPERATIVE DIAGNOSES End-stage renal disease. Superior vena cava thrombus. Poor venous access for arteriovenous fistula creation. PROCEDURE: Right upper extremity venogram. Left upper extremity venogram. INDICATION: Patient is a 73-year-old female with end-stage renal disease who needs access for long-term hemodialysis access and will undergo a venogram to evaluate for AV fistula, possible AV graft creation. Risks, benefits and alternative treatment options were discussed with the patient. ANESTHESIA: None. ESTIMATED BLOOD LOSS: Minimal. FLUORO TIME: 0.8 minutes. CONTRAST: 35 mL. HEPARIN: None. COMPLICATIONS: None. DRAINS: None. SPECIMENS: None. IMPLANTS: None. PROCEDURE: Patient was taken to the angiography suite, placed supine on the angiography room table and then IVs were started in both upper extremities after which bilateral upper extremity venogram was performed. The IVs were then removed and dressings were applied. The patient tolerated the procedure well. All instrument, sponge and needle counts were correct at the end the case. There were no complications. Dr. Thomas was present for directed the entire case. The patient was transferred to the holding area and subsequently discharged in stable condition. RADIOLOGIC SUPERVISION INTERPRETATION: The right upper extremity venogram showed the cephalic and basilic veins to be patent with good flow into the central venous system. The left upper extremity venogram showed the cephalic and basilic veins be patent with good flow into the central venous system.
== END | disposition home or self-care (01) ==
LOC: M IRPRO 07:42
PROVIDERS: ATTEND Surgery Vascular Surgery
DX: N18.6 End stage renal disease (principal); I82.210 Acute embolism and thrombosis of superior vena cava

== ENCOUNTER → 2019-01-25 | Outpatient (CLI) | payer MEDICARE, OTHER ==
[~2019-01-25] MED LIST changes: -ENSULIQ9 PO; -ISOVUE-300 61% 50ML VIAL (Q9967) As Ordered ONE; -LEVO50TA45 PO; -LIDOCAINE 2% MDV 20 ML VIAL As Ordered ONE; +NORC1TAB4 PO; -NORC1TAB7 PO; -WARF-21 PO; -WARF-23 PO
[2019-01-25 13:53] LABS: INR 3.15
== END ==
LOC: M SMT 10:10
PROVIDERS: ATTEND Surgery Vascular Surgery
DX: Z79.01 Long term (current) use of anticoagulants (principal)

== ENCOUNTER → 2019-02-01 | Outpatient (CLI) | payer MEDICARE, OTHER ==
[~2019-02-01] MED LIST changes: +WARF-21 PO
[2019-02-01 13:16] LABS: INR 4.37; PROTHROMBIN TIME 42.9 SECONDS (12.1-14.4)
== END ==
LOC: M SMT 09:59
PROVIDERS: ATTEND Surgery Vascular Surgery
DX: T82.868A Thrombosis due to vascular prosthetic devices, implants and grafts, initial encounter (principal); Z79.01 Long term (current) use of anticoagulants

== ENCOUNTER → 2019-02-05 | Outpatient (REF) | payer MEDICARE, OTHER ==
[~2019-02-05] MED LIST changes: -NORC1TAB4 PO; +NORC1TAB7 PO
[2019-02-05 11:37] LABS: APPEARANCE, URINE HAZY (CLEAR); BACTERIA, URINE AUTO 1+ (NEGATIVE); BILIRUBIN, URINE AUTO NEGATIVE (NEGATIVE); BLOOD, URINE BLOOD NEGATIVE (NEGATIVE); COLOR, URINE YELLOW (YELLOW); GLUCOSE, URINE (UA) AUTO 1+ mg/dL (NEGATIVE); KETONE, URINE AUTO NEGATIVE (NEGATIVE); LEUKOCYTE ESTERASE, URINE AUTO 2+ (NEGATIVE); NITRITE, URINE AUTO NEGATIVE (NEGATIVE); PROTEIN, URINE AUTO 2+ mg/dL (NEGATIVE); RBC, URINE AUTO 1 /HPF (0-3); SPECIFIC GRAVITY URINE AUTO 1.014 (1.002-1.035); SQUAMOUS EPITHELIAL CELL UR AU 1 /HPF (0-6); UROBILINOGEN, URINE AUTO 0.2 mg/dL (0.0-2.0); WBC, URINE AUTO 91 /HPF (0-3)
== END ==
LOC: M LAB REF 11:16
PROVIDERS: ATTEND Internal Medicine Nephrology
DX: N39.0 Urinary tract infection, site not specified (principal)

== ENCOUNTER → 2019-02-08 | Outpatient (CLI) | payer MEDICARE, OTHER ==
[~2019-02-08] MED LIST changes: +ENSULIQ9 PO; +LEVO50TA45 PO; +WARF-23 PO
[2019-02-08 13:56] LABS: INR 4.57; PROTHROMBIN TIME 44.4 SECONDS (12.1-14.4)
== END ==
LOC: M SMT 10:14
PROVIDERS: ATTEND Surgery Vascular Surgery
DX: T82.868A Thrombosis due to vascular prosthetic devices, implants and grafts, initial encounter (principal)

== ENCOUNTER → 2019-02-15 | Outpatient (CLI) | payer MEDICARE, OTHER ==
[2019-02-15 13:44] LABS: PROTHROMBIN TIME 54.3 SECONDS (12.1-14.4)
[2019-02-15 14:42] LABS: INR 5.89
== END ==
LOC: M SMT 09:46
PROVIDERS: ATTEND Surgery Vascular Surgery
DX: T82.868A Thrombosis due to vascular prosthetic devices, implants and grafts, initial encounter (principal)

== ENCOUNTER → 2019-02-22 | Outpatient (CLI) | payer MEDICARE, OTHER ==
[2019-02-22 13:55] LABS: INR 1.5; PROTHROMBIN TIME 18.4 SECONDS (12.1-14.4)
== END ==
LOC: M SMT 09:35
PROVIDERS: ATTEND Surgery Vascular Surgery
DX: T82.868A Thrombosis due to vascular prosthetic devices, implants and grafts, initial encounter (principal)

== ENCOUNTER → 2019-03-01 | Outpatient (CLI) | payer MEDICARE, OTHER ==
[2019-03-01 13:20] LABS: INR 1.95; PROTHROMBIN TIME 22.6 SECONDS (12.1-14.4)
== END ==
LOC: M SMT 09:48
PROVIDERS: ATTEND Surgery Vascular Surgery
DX: T82.868A Thrombosis due to vascular prosthetic devices, implants and grafts, initial encounter (principal); Z79.01 Long term (current) use of anticoagulants

== ENCOUNTER → 2019-03-09 | Outpatient (CLI) | payer MEDICARE, OTHER ==
[2019-03-09 12:41] LABS: INR 2.13; PROTHROMBIN TIME 24.2 SECONDS (12.1-14.4)
== END ==
LOC: M SMT 10:18
PROVIDERS: ATTEND Surgery Vascular Surgery
DX: T82.868A Thrombosis due to vascular prosthetic devices, implants and grafts, initial encounter (principal); Z79.01 Long term (current) use of anticoagulants

== ENCOUNTER → 2019-03-11 | Outpatient (CLI) | payer MEDICARE, OTHER ==
--- NOTE | 2019-03-11 12:26 | REP ---
MRCP: MRCP is accomplished utilizing multiple heavily T2-weighted sequences in the axial and coronal planes. MIP reconstruction images are performed. Comparison is made with prior ultrasound and CT 02/15/2019. Gallbladder is mildly distended with no definite filling defect or wall edema. There is no intrahepatic or extrahepatic biliary dilatation. The common bile duct measure 4 mm maximally with no evidence of choledocholithiasis. There is no pancreatic duct dilatation. The main pancreatic duct drains directly into the duodenum via the minor patella consistent with pancreas divisum. Kidneys are atrophic and contain multiple cysts without hydronephrosis. I see no adenopathy or free fluid in the visualized abdomen. No other significant findings are seen. IMPRESSION: No evidence of cholelithiasis or choledocholithiasis. No biliary dilatation. 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 Renal atrophy bilaterally with multiple renal cysts. Electronically Signed by Justin Ugalde MD 03/11/2019 04:21 P
== END ==
LOC: M RAD 09:07
PROVIDERS: ATTEND Internal Medicine Gastroenterology
DX: Q45.3 Other congenital malformations of pancreas and pancreatic duct (principal); Q61.02 Congenital multiple renal cysts

== ENCOUNTER 2019-03-12 09:00 | Emergency (ER) | payer MEDICARE, OTHER ==
[~2019-03-12] VITALS: Ht 162.6 cm; Wt 47.3 kg
[2019-03-12 10:34] LABS: EOS % 0.5 % (0.0-3.0); HEMATOCRIT 32.6 % (36.0-47.0); HEMOGLOBIN 11.1 g/dl (12.0-15.5); LYMPH # 0.8 10^3/uL (1.5-4.5); LYMPH % 21.3 % (24.0-44.0); MEAN CORPUSCULAR HEMOGLOBIN 35.5 pg (27.0-33.0); MEAN CORPUSCULAR VOLUME 104.2 fl (80.0-96.0); MONO # 0.4 10^3/uL (0.0-0.8); MONO % 10.4 % (0.0-5.0); NEUTROPHILS # 2.5 10^3/uL (1.8-7.7); NEUTROPHILS % 67.3 % (36.0-66.0); PLATELET COUNT, AUTOMATED 161 10^3/uL (150-450); RED BLOOD COUNT 3.13 10^6/uL (4.00-5.40); WHITE BLOOD COUNT 3.8 10^3/uL (4.0-10.0)
[2019-03-12 10:43] LABS: INR 1.61; PROTHROMBIN TIME 19.4 SECONDS (12.1-14.4)
[2019-03-12 11:20] LABS: ALBUMIN 3.7 GM/DL (3.2-5.2); BILIRUBIN,DIRECT 0.3 MG/DL (0.0-0.2); BILIRUBIN,TOTAL 1.6 MG/DL (0.2-1.0); CALCIUM LEVEL 8.9 MG/DL (8.8-10.2); CREATININE FOR GFR 3.18 MG/DL (0.55-1.30); GLOMERULAR FILTRATION RATE 15.3 (>39); POTASSIUM SERUM 3.8 MEQ/L (3.5-5.1); TOTAL PROTEIN 6.4 GM/DL (6.4-8.2)
[2019-03-12 12:30] VITALS: BP 92/51
--- NOTE | 2019-03-12 19:21 | ECGEPIP ---
Stationary ECG Study [facility] - ED Test Date: 2019-03-12 Pat Name: AD JOHNSTON Department: Room: - Gender: F Director Of Business Applications: : 1945 Requested By: Peyton Vickers Order Number: [id number] Reading MD: Kings Guillermo Measurements Intervals [place] Rate: 72 P: 74 ND: 122 QRS: 60 QRSD: 89 T: 76 QT: 421 QTc: 461 Interpretive Statements SINUS RHYTHM RHYTHM CHANGE COMPARED TO 11/17/18 Electronically Signed On 03-12-2019 19:21:03 EDT by Kings Guillermo
== END 2019-03-12 13:34 | disposition home or self-care (01) ==
LOC: M ED 09:00 → EDBD 09:00 → M ED 13:34
DX: I95.3 Hypotension of hemodialysis (principal); N18.9 Chronic kidney disease, unspecified; Z99.2 Dependence on renal dialysis; C90.00 Multiple myeloma not having achieved remission; K50.00 Crohn's disease of small intestine without complications; K86.1 Other chronic pancreatitis; Z86.14 Personal history of Methicillin resistant Staphylococcus aureus infection; Z88.1 Allergy status to other antibiotic agents; Z79.01 Long term (current) use of anticoagulants; Z79.83 Long term (current) use of bisphosphonates; Z79.899 Other long term (current) drug therapy; Z94.84 Stem cells transplant status

== ENCOUNTER → 2019-03-22 | Outpatient (CLI) | payer MEDICARE, OTHER ==
[2019-03-22 10:50] LABS: INR 1.67
== END ==
LOC: M SMT 09:25
PROVIDERS: ATTEND Surgery Vascular Surgery
DX: T82.868A Thrombosis due to vascular prosthetic devices, implants and grafts, initial encounter (principal)

== ENCOUNTER → 2019-03-22 | Outpatient (CLI) | payer MEDICARE, OTHER ==
[~2019-03-22] MED LIST changes: +ASPI81CH33 PO; +FISH1000 PO; +LOVE0.4I2 SC
--- NOTE | 2019-04-02 15:53 | REP ---
BILATERAL RIBS, PA CHEST, FIVE VIEWS: HISTORY: Bilateral rib pain. COMPARISON: 11/17/2018. The lungs are hyperinflated. The lungs are clear. The heart is normal in size. The pulmonary vasculature is normal in appearance. The bony structure is intact. The patient is status post T12-L2 kyphoplasty. A catheter is present in the superior vena cava. A stent is present in the left axilla. IMPRESSION: No acute disease. Electronically Signed by Russell Dixon MD 03/22/2019 01:39 P
== END ==
LOC: M RAD 11:40
PROVIDERS: ATTEND Internal Medicine Medical Oncology
DX: R07.81 Pleurodynia (principal); T82.868A Thrombosis due to vascular prosthetic devices, implants and grafts, initial encounter

== ENCOUNTER 2019-03-26 07:35 | Inpatient (IN) | payer MEDICARE, OTHER ==
[~2019-03-26] VITALS: Ht 162.6 cm; Wt 48.8 kg
[~2019-03-26 07:35] MED LIST changes: -ASPI81CH33 PO; -FISH1000 PO; -LOVE0.4I2 SC
--- NOTE | 2019-03-26 08:12 | REP ---
Clinical: Acute cerebrovascular accident. Comparison: 06/24/2016 . Findings: Age-related atrophy and microvascular ischemic changes are appreciated. The ventricles and sulci are symmetric. Ugalde-white differentiation is maintained. There is no evidence for acute intracranial hemorrhage, mass/mass effect, pathology or infarction. No extra-axial fluid collection. Calvarium is intact. Paranasal sinuses and mastoid air cells are clear. Impression: Age related atrophy and microvascular ischemic changes. No acute intracranial hemorrhage, infarction, or mass/mass effect. Electronically Signed by Celestino López MD 03/26/2019 08:03 A
[2019-03-26 08:34] LABS: BASO % 0.2 % (0.0-1.0); HEMATOCRIT 29.4 % (36.0-47.0); HEMOGLOBIN 10.2 g/dl (12.0-15.5); LYMPH # 0.7 10^3/uL (1.5-4.5); LYMPH % 17.5 % (24.0-44.0); MEAN CORPUSCULAR HEMOGLOBIN 37.1 pg (27.0-33.0); MEAN CORPUSCULAR HGB CONC 34.7 g/dl (32.0-36.5); MEAN CORPUSCULAR VOLUME 106.9 fl (80.0-96.0); MONO # 0.4 10^3/uL (0.0-0.8); MONO % 9.8 % (0.0-5.0); PLATELET COUNT, AUTOMATED 137 10^3/uL (150-450); RED BLOOD COUNT 2.75 10^6/uL (4.00-5.40); WHITE BLOOD COUNT 4.2 10^3/uL (4.0-10.0)
--- NOTE | 2019-03-26 08:51 | REP ---
Clinical: Altered mental status. Comparison: 11/17/2018. Findings: The mediastinum and cardiac silhouette are stable and within normal limits for portable technique. Double lumen dialysis catheter with tip in the SVC. The lung george demonstrate chronic interstitial changes without acute consolidation, effusion, or pneumothorax. Skeletal structures are intact. Right axillary node dissection and left axillary stent. Evidence of prior vertebroplasty. Impression: No acute cardiopulmonary process appreciated. Electronically Signed by Celestino López MD 03/26/2019 08:42 A
[2019-03-26 09:00] LABS: BLOOD UREA NITROGEN 32 MG/DL (7-18); CALCIUM LEVEL 8.9 MG/DL (8.8-10.2); CARBON DIOXIDE LEVEL 26 MEQ/L (21-32); CHLORIDE LEVEL 104 MEQ/L (98-107); CK-MB VALUE MASS < 1.0 NG/ML (<3.6); CPK CREATINE PHOSPHOKINASE 44 U/L (26-192); CREATININE FOR GFR 3.68 MG/DL (0.55-1.30); GLOMERULAR FILTRATION RATE 12.9 (>39); GLUCOSE, FASTING 91 MG/DL (70-100); MB/CK RELATIVE INDEX 2.27 (< OR =4); POTASSIUM SERUM 3.9 MEQ/L (3.5-5.1); SODIUM LEVEL 140 MEQ/L (136-145); TROPONIN I < 0.02 NG/ML (< 0.10)
[2019-03-26] MEDS ORDERED: LOVE0.4I2 SC (09:02)
[2019-03-26] MEDS ORDERED: FISH1000 PO (09:02)
--- NOTE | 2019-03-26 11:33 | HPEPDOC ---
[facility] Medical History & Physical Date of Admission March 26, 2019 Date of Service: March 26, 2019 Attending Physician: YAMILA ARECHIGA MD History and Physical CHIEF COMPLAINT: L. sided weakness/Hypotension HISTORY OF PRESENT ILLNESS: Leti is a 73-year-old female past medical history of ESRD on HD, MM s/p stem cell transplant on treatment with Dr. Saab, Upper chest DVT? on Lovenox recently switched from Warfarin, Crohn's disease with prison ileostomy, Pancreatitis and hx skin melanoma/BCC s/p removal brought in from HD for reportedly hypotension and AMS. Patient noted to be have speech difficulty along with L. sided weakness, supposedly was altered but appeared completely alert and oriented in ER on my assessment. Symptoms started this morning apparently acutely. In ER, CT scan showed no acute pathology but INR was noted to be 3.8. ER physician had discussed with [facility] who does not recommend giving tPA given contraindications of elevated INR as well as rapid improvement in sym ptoms. She currently does not speak well but denies any complaints apart from weakness. Of note patient had been on warfarin and just switched to Lovenox last night after getting the first dose for possible procedure for her pancreatitis in [place]. PAST MEDICAL HISTORY: Refer to [facility] PAST SURGICAL HISTORY: ileostomy for Crohn's Appendectoomy Stem cell transplant hx melanoma and BCC SOCIAL HISTORY: Denies tobacco, alcohol or illicit drug use. FAMILY HISTORY: Mother CAD and DM Father Emphysema ALLERGIES: Please see below. REVIEW OF SYSTEMS: 10 point review of system negative except as stated in HPI HOME MEDICATIONS: Please see below. PHYSICAL EXAMINATION: General: No acute distress, Alert Eyes: Normal sclera, EOMI, TERRELL HENT: Atraumatic, neck supple, moist mucous membranes Cardiovascular: Normal rate, normal rhythm. No murmurs appreciated. Pulmonary: Clear to auscultation b/l, no wheezing GI: Soft, nontender, nondistended Skin: Warm and dry Neuro: Slight L. sided facial droop. Dysarthria+. L. sided weakness 2/5 in both upper and lower extremities. 5/5 in R. upper extremities. Psych: oriented x 3 LABORATORY DATA: See below. IMAGING: CT head- Impression: Age related atrophy and microvascular ischemic changes. No acute intracranial hemorrhage, infarction, or mass/mass effect. CXR- Impression: No acute cardiopulmonary process appreciated. MICROBIOLOGY: Please see below. ASSESSMENT AND PLAN: 1. Suspected CVA - L. sided deficit with dysarthria. - mental status back at baseline but weakness persistent. - Not a candidate for tPA given INR of 3.8 on presentation in addition to rapidly improving symptoms, discussed in ER with [facility]. - c/w neuro checks on floor. - PT/OT, speech evaluation or bedside swallow. - ASA, statin. - ECHO. - f/u MRI brain, MRA brain and carotids. 2. ESRD on HD - MWF, in the midst of getting HD today, unsure if completed. - Monitor electrolytes. - Nephrology consult. 3. MM - c/w treatment with Onc once stable. 4. DVT of upper chest? - Reportedly had clot where previous PICC was. - Normally on Warfarin but switched to Lovenox before this admission. - Hold AC for now given INR 3.8. - Monitor INR and resume Lovenox once subtherapeutic. 5. Crohn's disease - Appear stable. - Ileostomy in place. DVT ppx: SCD. Resume Lovenox once INR subtherapeutic. Code status: DNR Vital Signs Vital Signs Date Time Temp Pulse Resp B/P (MAP) Pulse Ox O2 Delivery O2 Flow Rate FiO2 03/26/19 09:05 72 99 03/26/19 09:00 16 125/68 (87) Room Air 03/26/19 08:10 96.5 Laboratory Data Labs 24H Laboratory Tests 2 03/26/19 07:40: Immature Granulocyte % (Auto) 0.5, White Blood Count 4.2, Red Blood Count 2.75L, Hemoglobin 10.2L, Hematocrit 29.4L, Mean Corpuscular Volume 106.9H, Mean Corpuscular Hemoglobin 37.1H, Mean Corpuscular Hemoglobin Concent 34.7, Red Cell Distribution Width 14.6H, Platelet Count 137L, Neutrophils (%) (Auto) 71.0H, Lymphocytes (%) (Auto) 17.5L, Monocytes (%) (Auto) 9.8H, Eosinophils (%) (Auto) 1.0, Basophils (%) (Auto) 0.2, Neutrophils # (Auto) 3.0, Lymphocytes # (Auto) 0.7L, Monocytes # (Auto) 0.4, Eosinophils # (Auto) 0.0, Basophils # (Auto) 0.0, Nucleated Red Blood Cells % (auto) 0.0, Anion Gap 10, Glomerular Filtration Rate 12.9L, Blood Urea Nitrogen 32H, Creatinine 3.68H, Sodium Level 140, Potassium Level 3.9, Chloride Level 104, Carbon Dioxide Level 26, Calcium Level 8.9, Total Creatine Kinase 44, Creatine Kinase MB < 1.0, Creatine Kinase MB Relative Index 2.27, Troponin I < 0.02 03/26/19 07:43: Bedside Glucose (Misc Panel) 90 03/26/19 08:03: Bedside Prothrombin Time INR 3.8, Prothrombin Time (MISC) 43.2H CBC/BMP Laboratory Tests 03/26/19 07:40 Red Blood Count 2.75 L, Mean Corpuscular Volume 106.9 H, Mean Corpuscular Hemoglobin 37.1 H, Mean Corpuscular Hemoglobin Concent 34.7, Red Cell Distribution Width 14.6 H, Neutrophils (%) (Auto) 71.0 H, Lymphocytes (%) (Auto) 17.5 L, Monocytes (%) (Auto) 9.8 H, Eosinophils (%) (Auto) 1.0, Basophils (%) (Auto) 0.2, Neutrophils # (Auto) 3.0, Lymphocytes # (Auto) 0.7 L, Monocytes # (Auto) 0.4, Eosinophils # (Auto) 0.0, Basophils # (Auto) 0.0, Calcium Level 8.9, Total Creatine Kinase 44 Home Medications Scheduled Cholecalciferol (Vitamin D3) (Vitamin D3) 2,000 Unit Tab, 2,000 UNIT PO DAILY Cyclosporine (Restasis) 0.05 % Emu, 1 DROP OU BID Dexamethasone (Dexamethasone) 4 Mg Tab, 12 MG PO ASDIRECTED TAKES DAYS 1,8,15,22 - LAST DOSE WAS DAY 22 OF CYCLE Diphenhydramine HCl (Benadryl) 25 Mg Cap, 25 MG PO 3XW TAKES PRIOR TO DIALYSIS M,W,F Enoxaparin Sodium (Lovenox) 60 Mg/0.6 Ml Syringe, 50 MG SC Q12H Ixazomib Citrate (Ninlaro) 3 Mg Cap, 3 MG PO ASDIRECTED TAKES ON DAY 1,8,15 OF 22 DAY CYCLE. LAST DOSE WAS DAY 15 OF CYCLE. DUE TO START DAY ONE ON 03/28/19 Lactose-Reduced Food (Ensure Plus) 237 Ml Liquid, 1 LIQ PO QHS Levothyroxine Sodium (Levoxyl) 50 Mcg Tablet, 50 MCG PO DAILY [place]-3 Fatty Acids/Fish Oil (Fish Oil 1,000 mg Capsule) 1 Each Capsule, 1,000 MG PO DAILY Sevelamer Carbonate (Renvela) 800 Mg Tab, 800 MG PO WM Allergies Coded Allergies: vancomycin (Verified Allergy, Intermediate, RASH/ITCHING, 03/26/19) A-FIB/CHADSVASC A-FIB History Current/History of A-Fib/PAF?: No YAMILA ARECHIGA MD March 26, 2019 11:33
[2019-03-26] MEDS ORDERED: NS 1,000 ML IV SCH (12:00)
--- NOTE | 2019-03-26 14:28 | REP ---
MRA BRAIN WITHOUT CONTRAST: HISTORY: Aphagia. 3D TOF MR angiography was performed at the level of the ak chin of [place]. There is no aneurysm or arteriovenous malformation. Mild atherosclerotic disease involves the cavernous internal carotid arteries. There is origin of the left posterior cerebral artery. Major intracranial vessels are patent. The left vertebral artery is dominant. IMPRESSION: 1. There is no aneurysm or arteriovenous malformation. 2. Atherosclerotic disease as described above. Electronically Signed by Russell Dixon MD 03/26/2019 02:46 P
--- NOTE | 2019-03-26 14:48 | REP ---
MRA CAROTIDS WITHOUT CONTRAST: HISTORY: Aphasia. Unenhanced 2D and 3D [id number] MR angiography were performed at the level of the carotid bifurcations. The distal common carotid arteries and origins of the external and internal carotid arteries are normal. The vertebral arteries are patent. The left vertebral artery is dominant. There are no atherosclerotic lesions. IMPRESSION: Normal MRA carotids. Electronically Signed by Russell Dixon MD 03/26/2019 02:50 P
--- NOTE | 2019-03-26 14:50 | REP ---
MR BRAIN WITHOUT CONTRAST: HISTORY: Aphagia. COMPARISON: CT 03/26/2019. Areas of increased signal intensity on T2-weighted images are present in the periventricular and subcortical white matter. This represents small vessel ischemic disease. There is no intraparenchymal hemorrhage, infarct, mass or midline shift. The ventricular system is normal in appearance. The cortical sulci are dilated consistent with minimal volume loss. There is no extracerebral collection. Minimal mucosal thickening is present in the mastoid air cells. The visualized sinuses are clear. IMPRESSION: 1. Small vessel ischemic disease. 2. Minimal volume loss. Electronically Signed by Russell Dixon MD 03/26/2019 02:50 P
[2019-03-26 16:00] VITALS: BP 114/56
--- NOTE | 2019-03-26 16:02 | NUR ---
Recommend pureed solids, thin liquids, medications whole in puree assist please. Compensatory strategies: upright, small bite/sip, alternate bite/sip, multiple effortful swallows. Dysphagia tx. Requesting MD referral for speech/language evaluation. Addendum: 03/26/[address] [facility] Amended: Links added.
--- NOTE | 2019-03-26 18:41 | CR ---
DATE OF CONSULTATION: 03/26/2019 REQUESTING PHYSICIAN: Dr. Pascual Melvin REASON FOR CONSULTATION: Management of end-stage renal disease on hemodialysis. HISTORY OF PRESENT ILLNESS: Yoana Escobedo is well known to me. She is a 73-year-old female with a past medical history of end-stage renal disease, on hemodialysis on a Friday, Friday, Friday schedule, history of multiple myeloma, status post stem cell transplant with relapse, currently on chemotherapy, history of Crohn's disease with ostomy, recent bouts of pancreatitis and other comorbid conditions mentioned below. 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 Apparently this was switched to Lovenox subcu by her vascular surgeon yesterday for a possible procedure planned in [place] related to her recent bouts of pancreatitis. The patient states she was in her usual state of health until this morning when she woke up with a "worst headache" and complained of terrible pressure in the head. She went to her hemodialysis treatment and after about 45 minutes of dialysis, she was noted to have dysarthria and left-sided weakness. Her treatment was subsequently terminated early, and the patient was sent to the emergency room. In the emergency room (ER), she had a CT scan that did not show any acute bleed and labs showed an elevated INR, and the patient is being admitted for further workup of the acute neurologic symptoms. Nephrology consultation was requested for management of her chronic renal failure. 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 History of recurrent clotting of arteriovenous (AV) graft and infection, status post removal of graft. PAST SURGICAL HISTORY: Ileostomy, appendectomy, stem cell transplant, history of melanoma and basal cell carcinoma, history of PermaCath placement, history of fistula/graft. SOCIAL HISTORY: Denies tobacco, alcohol or illicit drug use. FAMILY HISTORY: Emphysema for her father, coronary artery disease for her mother. ALLERGIES: VANCOMYCIN. REVIEW OF SYSTEMS: Constitutional: She feels weak and tired. Eyes: She denies visual changes or blurring. ENT: She denies tinnitus or odynophagia. Cardiac: She denies chest pain or palpitations. Respiratory: She denies cough or hemoptysis. Gastrointestinal: She has an ostomy. She denies nausea, vomiting. Genitourinary: Negative for dysuria or hematuria, though so she does have a history of urinary tract infections (UTIs). Musculoskeletal: Significant for left-sided weakness and history of osteoarthritis. She denies leg edema. Neurologic: Significant for complaint of headache, expressive aphasia and left-sided weakness. There is no history of seizure. Endocrine: Positive for secondary hyperparathyroidism and hypothyroidism. Hematologic: Positive for anticoagulation and anemia, and history of blood transfusions. Skin: Negative for any new rashes or ulcers. Remainder of review of systems is negative, as per history of the present illness. HOME MEDICATIONS: Include vitamin D, dexamethasone, levothyroxine, Renvela, Coumadin - recently switched to Lovenox, and Revlimid. PHYSICAL EXAMINATION: Vital signs: Temperature 96.5, pulse 74, respiratory rate 16, blood pressure 125/68, saturating 99% on room air. General: The patient is seen in the emergency room lying on the stretcher. Family members are present at the bedside. She is awake and alert, makes eye contact. Anicteric sclerae. Extraocular muscles are intact. Tongue is moist. Neck is supple. Jugular veins are not elevated. Cardiac: S1, S2, regular rate and rhythm. No edema in the extremities. Palpable radial pulse. Lungs are clear to auscultation bilaterally. No crackles, rales or wheeze. Abdomen is soft and nontender. There is a functional ostomy present. Skin is warm and dry. Normal temperature and turgor. Neurologic: There is dysarthria and left-sided weakness in the arm and leg, but she is oriented times three and able to slowly provide history. LABORATORY DATA: White count 4.2, hemoglobin 10.2, sodium 140, potassium 3.9, glucose 91. Troponin is negative. Platelet is 137. INR is 3.8. Head CT showed age-related atrophy and microvascular ischemic changes. No acute findings. Brain MRI showed small vessel ischemic disease. INPATIENT MEDICATIONS: The patient is receiving normal saline at 75 mL an hour, which I am decreasing. PROBLEMS: 1. End-stage renal disease, on hemodialysis on Friday, Friday, Friday schedule. Today's dialysis was terminated after about 45 minutes due to the patient having onset of left-sided weakness and dysarthria. When I saw the patient at the bedside in the emergency room, both the left-sided weakness and the dysarthria persists. CT scan of the brain and MRI, MRA are noted with no acute findings. Primary team has discussed with [facility], and the patient is being admitted for further evaluation. 2. End-stage renal disease, on hemodialysis on Friday, Friday, Friday schedule. Only received 45 minutes of her treatment this morning, which was subsequently terminated due to the acute neurologic issue. She will be evaluated for hemodialysis over the weekend. Her electrolytes and volume status are acceptable. I see she has a diet order in place, so I am cutting down her IV fluids. 3. Thrombus at the junction of the superior vena cava and subclavian vein. Prior CT angiography January 2019 noted. The patient was being anticoagulated as per vascular surgery, was on Coumdin. This was recently switched to Lovenox. All anticoagulation is presently held given the supratherapeutic international normalized ratio (INR). Thank you for involving me in the care of Ms Escobedo. I will be happy to follow her along with you.
[2019-03-26 20:00] VITALS: BP 102/59
--- NOTE | 2019-03-26 20:50 | ECGEPIP ---
[facility] - ED Test Date: 2019-03-26 Pat Name: AD JOHNSTON Department: Room: - Gender: Female Manager Surgical: : 1945 Requested By: Peyton Vickers Order Number: [id number] Reading MD: Peyton Vickers Measurements Intervals [place] Rate: 77 P: 67 [place]: 125 QRS: 56 QRSD: 83 T: 74 QT: 402 QTc: 457 Interpretive Statements SINUS RHYTHM SIMILAR 03/12/19 Electronically Signed on 03-26-2019 20:50:22 EDT by Peyton Vickers
[2019-03-27] VITALS (8 sets, daily range): BP systolic 93–121; BP diastolic 43–56
[2019-03-27 05:20] LABS: HEMATOCRIT 29.2 % (36.0-47.0); HEMOGLOBIN 9.8 g/dl (12.0-15.5); MEAN CORPUSCULAR HEMOGLOBIN 35.8 pg (27.0-33.0); MEAN CORPUSCULAR HGB CONC 33.6 g/dl (32.0-36.5); MEAN CORPUSCULAR VOLUME 106.6 fl (80.0-96.0); PLATELET COUNT, AUTOMATED 135 10^3/uL (150-450); RED BLOOD COUNT 2.74 10^6/uL (4.00-5.40)
[2019-03-27 05:27] LABS: CALCIUM LEVEL 8.5 MG/DL (8.8-10.2); CREATININE FOR GFR 4.76 MG/DL (0.55-1.30); GLOMERULAR FILTRATION RATE 9.6 (>39); POTASSIUM SERUM 4.1 MEQ/L (3.5-5.1)
[2019-03-27] MEDS: (RENVELA) SEVELAMER **CARBONate** 800 MG TAB PO SCH ×3 (08:00→18:13)
[2019-03-27 08:22] LABS: INR 1.36
[2019-03-27] MEDS: VITAMIN D 1,000 INTERNATIONAL UNITS TABLET PO SCH (12:37)
[2019-03-27] MEDS: LEVOTHYROXINE 50MCG TABLET (0.05MG) PO SCH (12:37)
[2019-03-27] MEDS ORDERED: HEPARIN 1,000 UNITS/ML 10ML VIAL (FOR RADIOLOGY& DIALYSIS ONLY) XX ONE (13:00)
[2019-03-27] MEDS ORDERED: HEPARIN 1,000 UNITS/ML 10ML VIAL (FOR RADIOLOGY& DIALYSIS ONLY) IV ONE (13:00)
--- NOTE | 2019-03-27 13:40 | ECHO ---
DATE OF PROCEDURE: 03/26/2019 REFERRING PHYSICIAN: Dr. Pascual Melvin REASON FOR ECHOCARDIOGRAM: Cerebrovascular accident (CVA). 2D MEASUREMENTS: IVS: 0.9 cm LV 3.3 cm LVPW 0.9 cm LA 2.5 cm Aorta 2.9 cm IVC 1.8 cm DOPPLER MEASUREMENT: Mitral E 0.91, mitral A 0.85 with a ratio of greater than 1.0 Maximum tricuspid valve velocity 2.0 m/s. Peak velocity across the aortic valve 1.0 m/s Peak velocity across the LVOT 0.8 m/s 2D COMMENTS: 1. Normal left ventricular size, wall thickness, and normal global left ventricular systolic function. The estimated left ventricular systolic ejection fraction is 60-65%. 2. Normal left atrium. Normal right atrium and left ventricle. 3. The atrial septum appeared to be normal without evidence of defect or shunt. 4. Normal aortic root. 5. A small pericardial effusion was noted, no evidence of cardiac tamponade. 6. Minimally calcified aortic valve with normal leaflet excursion. Mildly calcified mitral annulus with normal anterior mitral valve leaflet motion. Normal tricuspid valve. The pulmonic valve and proximal pulmonary artery branches were not well visualized. 7. The inferior vena cava was normal in size, central venous pressure is most likely normal. DOPPLER: It detects trace aortic radiation, mild mitral regurgitation, trace tricuspid regurgitation. The calculated pulmonary artery systolic pressure was normal. Abnormal relaxation pattern was noted across the mitral valve annulus consistent with a pseudopneomo pattern, left ventricular end-diastolic pressure might be elevated. IMPRESSION: 1. Normal global left ventricular systolic function. There is some features of left ventricular diastolic dysfunction as mentioned above. 2. Aortic valve sclerosis with trace aortic radiation but no aortic stenosis. 3. Mitral annulus calcification with mild mitral regurgitation. 4. Trace tricuspid radiation with a normal calculated pulmonary artery systolic pressure. 5. Small pericardial effusion was noted, no evidence of cardiac tamponade. [facility]
--- NOTE | 2019-03-27 17:01 | IPN ---
DATE: 03/27/2019 SUBJECTIVE: The patient was seen and examined at the bedside today morning during hemodialysis. She is tolerating the hemodialysis procedure well. No fluid removal is being done because of her recent stroke and low blood pressures. The patient is still having expressive aphasia; otherwise, she denies any active complaints. OBJECTIVE: Vital signs: Temperature is 99 degrees Fahrenheit, blood pressure 109/56, pulse is 67, respiratory of 18, saturating 98% on room air. Intake and output: Urine output recorded is 500 mL. Weight in the bed scale is 49.5 kg. PHYSICAL EXAMINATION: GENERAL: The patient is awake, alert, oriented times three, lying in bed getting hemodialysis done. HEAD AND NECK: Extraocular muscles intact. Pupils equally round and reactive to light. Mucous membranes are moist. Neck is supple. There is no jugular venous distention (JVD). She has a right internal jugular (IJ) tunneled hemodialysis catheter, which is being used for dialysis. CARDIOVASCULAR: S1, S2, regular rate. No edema of the bilateral lower extremities. RESPIRATORY: Chest is clear to auscultation bilaterally. Bilateral equal air entry. No rales or rhonchi. ABDOMEN: Soft. Positive bowel sounds. She has a right lower quadrant ileostomy. MUSCULOSKELETAL: No clubbing or cyanosis. Pulses are 2+. CENTRAL NERVOUS SYSTEM: The patient has an expressive aphasia; otherwise, she is moving all extremities. LABORATORY REVIEW: CBC showed WBC of 3, hemoglobin 9.8, platelets of 135. BMP showed sodium 136, potassium 4.1, chloride 103, bicarbonate 25, BUN 39, creatinine is 4.7, calcium 8.5. IMAGING: An MRI of the brain was done yesterday, which showed small-vessel ischemic changes and minimal volume loss. CURRENT INPATIENT MEDICATIONS: The patient's medications were all reviewed by me. Intravenous (IV) fluids were stopped. She is on levothyroxine 50 mcg by mouth daily, and she continues to be on Renvela 800 mg by mouth with meals and vitamin D 2000 units by mouth daily. No other change in the medications today. ASSESSMENT AND PLAN: 1. End-stage renal disease, on hemodialysis. The patient is being dialyzed today. She is tolerating the hemodialysis procedure well. Her regular dialysis days are Friday, Friday, Friday. No fluid removal is being done because of her neurological symptoms. 2. Expressive aphasia. The patient's anticoagulation is on hold. She was on Lovenox as outpatient. MRI was done, which did not show any acute pathology. Rest of the management is as per primary team and neurology. 3. Thrombus at the junction of superior vena cava (SVC) and subclavian vein. The patient is not on any anticoagulation at this point. She was not given tPA because of INR of 3.8 on arrival. The patient was already discussed with the [facility] ([facility]) neurology. 4. Multiple myeloma, not having achieved remission. The patient gets the chemotherapy as outpatient. 5. Anemia and end-stage renal disease. Hemoglobin is 9.8. I would start the patient on Aranesp with dialysis from next hemodialysis session.
--- NOTE | 2019-03-27 17:03 | IPNPDOC ---
Date Seen The patient was seen on 03/27/19. Progress Note SUBJECTIVE: Patient appeared much better today. States that her symptoms had improved significantly as far as strength in her left extremities. She still stutters significantly but otherwise appear more energetic. No acute events reported overnight. OBJECTIVE PHYSICAL EXAMINATION: VITAL SIGNS: Please see below. General: No acute distress, Alert Eyes: Normal sclera, EOMI, TERRELL HENT: Atraumatic, neck supple, moist mucous membranes Cardiovascular: Normal rate, normal rhythm. No murmurs appreciated. Pulmonary: Clear to auscultation b/l, no wheezing GI: Soft, nontender, nondistended Skin: Warm and dry Neuro: Slight L. sided facial droop. Dysarthria+. L. sided weakness 4/5 in both upper and lower extremities. 5/5 in R. upper extremities. Psych: oriented x 3 LABORATORY DATA, IMAGING STUDIES, MICROBIOLOGY: Please see below. ASSESSMENT AND PLAN: 1. TIA - L. sided deficit with dysarthria. - mental status back at baseline but weakness persistent. - Not a candidate for tPA given INR of 3.8 on presentation in addition to rapidly improving symptoms, discussed in ER with [facility] neurology. - c/w neuro checks on floor. - PT/OT, speech therapy and assessment. - Not on ASA or Statin as patient on HD. - ECHO noted. EF 60-65%, no ASD. - MRI brain, MRA brain and carotids showed no acute pathology. 2. ESRD on HD - MWF - Monitor electrolytes. - Nephrology following. 3. MM - c/w treatment with Onc once stable. 4. Thrombus at junction of SVC and Subclavian vein - Normally on Warfarin but switched to Lovenox before this admission for a procedure. - Lovenox resumed, renally dosed. 5. Crohn's disease - Appear stable. - Ileostomy in place. DVT ppx: SCD. Resume Lovenox once INR subtherapeutic. Code status: DNR Dispo: Home vs. Rehab/[facility]. for PT and CM clearance. VS, I&O, 24H, Fishbone Vital Signs/I&O Vital Signs Date Time Temp Pulse Resp B/P (MAP) Pulse Ox O2 Delivery O2 Flow Rate FiO2 03/27/19 16:14 96/50 (65) 03/27/19 15:45 99.1 79 18 98 03/26/19 16:00 2.0 03/26/19 11:30 Room Air I&O- Last 24 Hours up to 6 AM 03/27/19 06:00 Intake Total 1000 ml Output Total 650 ml Balance 350 ml Laboratory Data 24H LABS Laboratory Tests 2 03/27/19 04:48: Nucleated Red Blood Cells % (auto) 0.0, Anion Gap 8, Glomerular Filtration Rate 9.6L, Blood Urea Nitrogen 39H, Creatinine 4.76H, Sodium Level 136, Potassium Level 4.1, Chloride Level 103, Carbon Dioxide Level 25, Calcium Level 8.5L 03/27/19 07:57: Prothrombin Time 17.0H, Prothromb Time International Ratio 1.36 CBC/BMP Laboratory Tests 03/27/19 04:48 Red Blood Count 2.74 L, Mean Corpuscular Volume 106.6 H, Mean Corpuscular Hemoglobin 35.8 H, Mean Corpuscular Hemoglobin Concent 33.6, Red Cell Distribution Width 14.3, Calcium Level 8.5 L YAMILA ARECHIGA MD March 27, 2019 17:03
[2019-03-27] MEDS: ENOXAPARIN 60 MG/0.6 ML SYR (J1650) SC SCH (18:14)
[2019-03-28 04:00] VITALS: BP 109/57
[2019-03-28 05:52] LABS: HEMATOCRIT 28.9 % (36.0-47.0); HEMOGLOBIN 9.5 g/dl (12.0-15.5); MEAN CORPUSCULAR HEMOGLOBIN 34.5 pg (27.0-33.0); MEAN CORPUSCULAR HGB CONC 32.9 g/dl (32.0-36.5); MEAN CORPUSCULAR VOLUME 105.1 fl (80.0-96.0); PLATELET COUNT, AUTOMATED 144 10^3/uL (150-450); RED BLOOD COUNT 2.75 10^6/uL (4.00-5.40); WHITE BLOOD COUNT 2.9 10^3/uL (4.0-10.0)
[2019-03-28 06:09] LABS: INR 1.06; PROTHROMBIN TIME 13.9 SECONDS (12.1-14.4)
[2019-03-28 06:10] LABS: CALCIUM LEVEL 8.3 MG/DL (8.8-10.2); CREATININE FOR GFR 3.55 MG/DL (0.55-1.30); GLOMERULAR FILTRATION RATE 13.5 (>39); POTASSIUM SERUM 4.2 MEQ/L (3.5-5.1)
[2019-03-28] MEDS: LEVOTHYROXINE 50MCG TABLET (0.05MG) PO SCH (06:32)
[2019-03-28 07:46] VITALS: BP 106/59
[2019-03-28] MEDS: VITAMIN D 1,000 INTERNATIONAL UNITS TABLET PO SCH (08:31)
[2019-03-28] MEDS: (RENVELA) SEVELAMER **CARBONate** 800 MG TAB PO SCH ×3 (08:31→17:33)
[2019-03-28 11:39] VITALS: BP 104/53
--- NOTE | 2019-03-28 11:39 | IPNPDOC ---
Date Seen The patient was seen on 03/28/19. Progress Note SUBJECTIVE: Patient continues to rapidly improve in strength and speech. L. sided 4/5 today throughout. Speech is more comprehensible and faster. Denies any complaints. OBJECTIVE PHYSICAL EXAMINATION: VITAL SIGNS: Please see below. General: No acute distress, Alert Eyes: Normal sclera, EOMI, TERRELL HENT: Atraumatic, neck supple, moist mucous membranes Cardiovascular: Normal rate, normal rhythm. No murmurs appreciated. Pulmonary: Clear to auscultation b/l, no wheezing GI: Soft, nontender, nondistended Skin: Warm and dry Neuro: Slight L. sided facial droop. Dysarthria+ improving. L. sided weakness 4/5 in both upper and lower extremities. 5/5 in R. upper extremities. Psych: oriented x 3 LABORATORY DATA, IMAGING STUDIES, MICROBIOLOGY: Please see below. ASSESSMENT AND PLAN: 1. TIA - L. sided deficit with dysarthria. - mental status back at baseline but weakness persistent. - Not a candidate for tPA given INR of 3.8 on presentation in addition to rapidl y improving symptoms, discussed in ER with [facility]. - c/w neuro checks on floor. - PT/OT, speech therapy and assessment. - Not on ASA or Statin as patient on HD. - ECHO noted. EF 60-65%, no ASD. - MRI brain, MRA brain and carotids showed no acute pathology. 2. ESRD on HD - MWF - Monitor electrolytes. - Nephrology following. 3. MM - c/w treatment with Onc once stable. - Is on Ixazomib with Dexamethasone weekly, every friday. Except for one friday each month she only takes dexamethasone. - c/w dex for now. Instructed to hold Ixazomib temporarily but patient will likely be home next time the next dose is due anyway. - She took the doses on her own 03/28/19. 4. Thrombus at junction of SVC and Subclavian vein - Normally on Warfarin but switched to Lovenox before this admission for a procedure. - Lovenox resumed, renally dosed. 5. Crohn's disease - Appear stable. - Ileostomy in place. DVT ppx: SCD. Resume Lovenox once INR subtherapeutic. Code status: DNR Dispo: Home vs. Rehab/[facility]. for PT and CM clearance. VS, I&O, 24H, Fishbone Vital Signs/I&O Vital Signs Date Time Temp Pulse Resp B/P (MAP) Pulse Ox O2 Delivery O2 Flow Rate FiO2 03/28/19 07:46 98.1 66 18 106/59 (75) 98 03/26/19 16:00 2.0 03/26/19 11:30 Room Air I&O- Last 24 Hours up to 6 AM 03/28/19 06:00 Intake Total 360 ml Output Total 1300 ml Balance -940 ml Laboratory Data 24H LABS Laboratory Tests 2 03/28/19 05:34: Nucleated Red Blood Cells % (auto) 0.0, Prothrombin Time 13.9, Prothromb Time International Ratio 1.06, Anion Gap 7L, Glomerular Filtration Rate 13.5L, Blood Urea Nitrogen 22H, Creatinine 3.55H, Sodium Level 139, Potassium Level 4.2, Chloride Level 106, Carbon Dioxide Level 26, Calcium Level 8.3L, Cholesterol L evel 199 CBC/BMP Laboratory Tests 03/28/19 05:34 Red Blood Count 2.75 L, Mean Corpuscular Volume 105.1 H, Mean Corpuscular Hemoglobin 34.5 H, Mean Corpuscular Hemoglobin Concent 32.9, Red Cell Distribution Width 14.3, Calcium Level 8.3 L YAMILA ARECHIGA MD March 28, 2019 11:39
[2019-03-28 16:00] VITALS: BP 108/55
[2019-03-28] MEDS: ENOXAPARIN 60 MG/0.6 ML SYR (J1650) SC SCH (17:35)
[2019-03-28 20:00] VITALS: BP 111/55
[2019-03-28 23:59] VITALS: BP 119/58
[2019-03-29] VITALS (7 sets, daily range): BP systolic 86–127; BP diastolic 50–62
--- NOTE | 2019-03-29 02:42 | IPN ---
DATE OF SERVICE: 03/28/2019 SUBJECTIVE: The patient was seen and examined at the bedside today morning. She was dialyzed yesterday. She tolerated the hemodialysis procedure well. Dialysis was done for clearance only. No fluid was removed. Patient's expressive aphasia is significantly better. She is able to speak more words and speak in full sentences now. She was getting ready to do her physical therapy when I saw her today morning. OBJECTIVE: VITAL SIGNS: Temperature is 99 degrees Fahrenheit, blood pressure 104/53, pulse is 85, respiratory rate of 18, saturating 98% on room air. INTAKE AND OUTPUT: In the ostomy drain it is 700 mL. Hemodialysis was done for clearance. There is no fluid removed. Weight in the bed scale is 49.2 kg. PHYSICAL EXAMINATION: GENERAL: The patient is awake, alert, oriented x3, sitting up in the sofa in no apparent distress. HEAD AND NECK EXAM: Extraocular muscles intact. Pupils equally round and reactive to light. Mucous membranes are moist. Neck is supple. There is no jugular venous distention (JVD). CARDIOVASCULAR: S1, S2, regular rate. No edema of the bilateral lower extremities. She has a right internal jugular (IJ) tunneled hemodialysis catheter. RESPIRATORY: Chest is clear to auscultation bilaterally. Bilateral equal air entry. No rales or rhonchi. ABDOMEN: Soft. Positive bowel sounds. Right lower quadrant ileostomy bag was noted. MUSCULOSKELETAL: No clubbing or cyanosis. Pulses are 2+. CENTRAL NERVOUS SYSTEM (CUSTOMER SERVICE CORRESPONDENCE CLERK): Expressive aphasia is significantly better today. She is able to talk in full sentences. Power is 5/5 in all extremities. LABORATORY REVIEW: Complete blood count (CBC) showed a white blood cell (WBC) of 2.9, hemoglobin 9.5, platelets are 144. Basic metabolic panel (BMP) showed sodium 139, potassium 4.2, chloride 106, bicarbonate 26, BUN 22, creatinine is 3.5. CURRENT INPATIENT MEDICATIONS: The patient's medications were all reviewed by me. There is no change in the medication today as compared with yesterday. - Lovenox - She has been restarted on Lovenox 50 mg subcutaneous daily. - Decadron - She also got her weekly dose of Decadron 12.5 mg by mouth for multiple myeloma. ASSESSMENT/PLAN: 1. End-stage renal disease on hemodialysis. The patient was dialyzed yesterday according to her schedule. Her next hemodialysis will be next week according to her regular schedule Friday, Friday, Friday. 2. Expressive aphasia. The patient's symptoms are better now. Her anticoagulation has been restarted. 3. Deep vein thrombosis at the junction of the superior vena cava and the subclavian vein. The patient is currently on Lovenox 50 mg subcutaneous daily. 4. Multiple myeloma not having achieved remission. The patient had chemotherapy as outpatient. She got her Decadron dose today according to her schedule. 5. Anemia in end-stage renal disease. The patient is getting Aranesp over here. The rest of the anemia management will be done as outpatient.
[2019-03-29] MEDS: LEVOTHYROXINE 50MCG TABLET (0.05MG) PO SCH (05:56)
[2019-03-29 05:58] LABS: HEMATOCRIT 28.6 % (36.0-47.0); HEMOGLOBIN 9.4 g/dl (12.0-15.5); MEAN CORPUSCULAR HEMOGLOBIN 34.4 pg (27.0-33.0); MEAN CORPUSCULAR HGB CONC 32.9 g/dl (32.0-36.5); MEAN CORPUSCULAR VOLUME 104.8 fl (80.0-96.0); PLATELET COUNT, AUTOMATED 154 10^3/uL (150-450); RED BLOOD COUNT 2.73 10^6/uL (4.00-5.40); WHITE BLOOD COUNT 8.4 10^3/uL (4.0-10.0)
[2019-03-29 06:08] LABS: INR 0.92; PROTHROMBIN TIME 12.5 SECONDS (12.1-14.4)
[2019-03-29 06:30] LABS: CALCIUM LEVEL 8.5 MG/DL (8.8-10.2); CREATININE FOR GFR 4.81 MG/DL (0.55-1.30); GLOMERULAR FILTRATION RATE 9.5 (>39); POTASSIUM SERUM 4.6 MEQ/L (3.5-5.1)
[2019-03-29] MEDS: VITAMIN D 1,000 INTERNATIONAL UNITS TABLET PO SCH (07:27)
[2019-03-29] MEDS: (RENVELA) SEVELAMER **CARBONate** 800 MG TAB PO SCH ×3 (07:28→17:23)
[2019-03-29] MEDS ORDERED: DARBEPOETIN 100 MCG/0.5 ML *DIALYSIS* SYRINGE (J0882) IV SCH (08:00)
--- NOTE | 2019-03-29 10:04 | IPNPDOC ---
Date Seen The patient was seen on 03/29/19. Progress Note SUBJECTIVE: Patient continues to make progress in both speech and L sided strength. Patient reported R. arm soreness when she woke up this morning and unable to hold up her arm. Tender to palpation over the lateral aspect, thought that she slept on it. Strength however is not compromised 5/5 both upper and lower R. sided extremities. OBJECTIVE PHYSICAL EXAMINATION: VITAL SIGNS: Please see below. General: No acute distress, Alert Eyes: Normal sclera, EOMI, TERRELL HENT: Atraumatic, neck supple, moist mucous membranes Cardiovascular: Normal rate, normal rhythm. No murmurs appreciated. Pulmonary: Clear to auscultation b/l, no wheezing GI: Soft, nontender, nondistended Skin: Warm and dry Neuro: Slight L. sided facial droop. Dysarthria+ improving. L. sided weakness 4/5 in both upper and lower extremities. 5/5 in R. upper extremities. Psych: oriented x 3 LABORATORY DATA, IMAGING STUDIES, MICROBIOLOGY: Please see below. ASSESSMENT AND PLAN: 1. TIA - L. sided deficit with dysarthria. - mental status back at baseline but weakness persistent. - Not a candidate for tPA given INR of 3.8 on presentation in addition to rapidly improving symptoms, discussed in ER with [facility]. - c/w neuro checks on floor. - PT/OT, speech therapy and assessment. - Not on ASA or Statin as patient on HD. - ECHO noted. EF 60-65%, no ASD. - MRI brain, MRA brain and carotids showed no acute pathology. 2. ESRD on HD - MWF - Monitor electrolytes. - Nephrology following. 3. MM - c/w treatment with Onc once stable. - Is on Ixazomib with Dexamethasone weekly, every friday. Except for one friday each month she only takes dexamethasone. - c/w dex for now. Instructed to hold Ixazomib at this time. - She took the doses on her own 03/28/19. 4. Thrombus at junction of SVC and Subclavian vein - Normally on Warfarin but switched to Lovenox before this admission for a procedure. - Lovenox resumed, renally dosed. 5. Crohn's disease - Appear stable. - Ileostomy in place. DVT ppx: SCD. Lovenox. Code status: DNR Dispo: Home once PT and CM cleared. VS, I&O, 24H, Fishbone Vital Signs/I&O Vital Signs Date Time Temp Pulse Resp B/P (MAP) Pulse Ox O2 Delivery O2 Flow Rate FiO2 03/29/19 07:35 97.8 71 18 106/57 (73) 98 03/26/19 16:00 2.0 03/26/19 11:30 Room Air I&O- Last 24 Hours up to 6 AM 03/29/19 05:59 Intake Total 840 ml Output Total 1350 ml Balance -510 ml Laboratory Data 24H LABS Laboratory Tests 2 03/29/19 05:47: Nucleated Red Blood Cells % (auto) 0.0, Prothrombin Time 12.5, Prothromb Time International Ratio 0.92, Anion Gap 9, Glomerular Filtration Rate 9.5L, Blood Ur ea Nitrogen 42#H, Creatinine 4.81H, Sodium Level 136, Potassium Level 4.6, Chloride Level 104, Carbon Dioxide Level 23, Calcium Level 8.5L CBC/BMP Laboratory Tests 03/29/19 05:47 Red Blood Count 2.73 L, Mean Corpuscular Volume 104.8 H, Mean Corpuscular Hemoglobin 34.4 H, Mean Corpuscular Hemoglobin Concent 32.9, Red Cell Distribution Width 14.0, Calcium Level 8.5 L YAMILA ARECHIGA MD March 29, 2019 10:04
[2019-03-29] MEDS ORDERED: HEPARIN 1,000 UNITS/ML 10ML VIAL (FOR RADIOLOGY& DIALYSIS ONLY) XX ONE (11:30)
[2019-03-29] MEDS ORDERED: HEPARIN 1,000 UNITS/ML 10ML VIAL (FOR RADIOLOGY& DIALYSIS ONLY) IV ONE (11:30)
--- NOTE | 2019-03-29 17:00 | IPN ---
DATE: 03/29/2019 SUBJECTIVE: Patient was seen and examined at the bedside today morning during hemodialysis procedure. She is tolerating the hemodialysis procedure well. She reports that her speech is getting better. She was cleared by physical therapy. OBJECTIVE: VITAL SIGNS: Temperature is 98.8 degrees Fahrenheit, blood pressure 104/55, pulse is 73, respiratory of 18, saturating 97% on room air. INTAKE AND OUTPUT: Urine output recorded is zero. Weight in the bed scale is 50.9 kg. PHYSICAL EXAMINATION: GENERAL: The patient is awake, alert, oriented times three, laying in bed getting hemodialysis done. HEAD AND NECK EXAM: Extraocular muscles intact. Pupils equally round and reactive to light. Mucous membranes are moist. Neck is supple. There is no jugular venous distention (JVD). CARDIOVASCULAR: S1, S2. Regular rate. No edema of the bilateral lower extremities. She has a right internal jugular (IJ) tunneled dialysis catheter. RESPIRATORY: Chest is clear to auscultation bilaterally. Bilateral equal air entry. No rales or rhonchi. ABDOMEN: Soft. Positive bowel sounds. Right lower quadrant ileostomy bag was noted. MUSCULOSKELETAL: No clubbing or cyanosis. Pulses are 2+. CENTRAL NERVOUS SYSTEM (PURCHASING OFFICER): No focal deficit. Expressive aphasia is significantly better. Power is 5/5 in all extremities. LABORATORY REVIEW: Complete blood count (CBC) showed WBC of 8.4, hemoglobin 9.4, platelets of 154. Basic metabolic panel (BMP) showed sodium of 136, potassium 4.6, chloride 104, bicarbonate 23, BUN 42, creatinine is 4.8. CURRENT INPATIENT MEDICATIONS: Patient's medications were all reviewed by me. There is no change in the medications today as compared with yesterday. ASSESSMENT AND PLAN: 1. End-stage renal disease on hemodialysis. Patient is being dialyzed according to her Friday, Friday, Friday schedule. Ultrafiltration goal will be around 500 mL as tolerated by her blood pressure. 2. Expressive aphasia. Patient's symptoms are better. She is already anticoagulated with Lovenox. 3. Deep venous thrombosis (DVT) of the junction of superior vena cava and subclavian vein. Continue Lovenox 50 mg subcutaneous daily. 4. Multiple myeloma. Patient got chemotherapy as outpatient. She is getting weekly Decadron, which she received yesterday. 5. Anemia in end-stage renal disease. Patient will get a dose of Aranesp and the rest of the management will be done as outpatient.
[2019-03-29] MEDS: ENOXAPARIN 60 MG/0.6 ML SYR (J1650) SC SCH (17:24)
[2019-03-30] MEDS ORDERED: SODIUM CHLORIDE 0.9% 1000ML IV ONE (00:30)
[2019-03-30 04:00] VITALS: BP 104/58
[2019-03-30 05:32] LABS: INR 0.93; PROTHROMBIN TIME 12.6 SECONDS (12.1-14.4)
[2019-03-30 05:46] LABS: BILIRUBIN,TOTAL 1.2 MG/DL (0.2-1.0); CALCIUM LEVEL 7.9 MG/DL (8.8-10.2); CREATININE FOR GFR 3.67 MG/DL (0.55-1.30); POTASSIUM SERUM 4.6 MEQ/L (3.5-5.1); TOTAL PROTEIN 6.1 GM/DL (6.4-8.2)
[2019-03-30] MEDS: LEVOTHYROXINE 50MCG TABLET (0.05MG) PO SCH (06:29)
[2019-03-30 08:00] VITALS: BP 107/59
[2019-03-30] MEDS: (RENVELA) SEVELAMER **CARBONate** 800 MG TAB PO SCH ×4 (08:31→13:17)
[2019-03-30] MEDS: VITAMIN D 1,000 INTERNATIONAL UNITS TABLET PO SCH (08:32)
--- NOTE | 2019-03-30 11:42 | NUR ---
Recommend upgrade to level 2 solids, continue thin liquids. Recommend referral for outpatient dysphagia therapy services. Addendum: 03/30/19 at 1144 by JENNI BAIN [facility] Amended: Links added.
--- NOTE | 2019-03-30 11:48 | NUR ---
Pt w/ mild motor speech planning deficit characterized by sound substitutions in multisyllabic words of increasing length, decreased speed of SMR's, sound substitutions and poor sequencing w/ SMR's, poor breath support w/ decreased MDP (10 seconds), hoarse vocal quality, and characteristics of stuttering including sound blocks, prolongations, and repetitions. Although she reports a family hx of developmental stuttering, this is new for her w/ diagnosis of TIA. Recommending continued ST services for motor speech planning in the outpatient setting. Addendum: 03/30/19 at 1153 by JENNI BAIN [facility] Amended: Links added.
--- NOTE | 2019-03-30 11:56 | IPN ---
DATE OF SERVICE: 03/30/2019 SUBJECTIVE: Patient was seen and examined at the bedside today, morning. She is afebrile, hemodynamically stable. She reports that she was cleared by physical therapy. She is getting ready to be discharged today. She was dialyzed yesterday. She tolerated the hemodialysis procedure well. She reports that her blood pressure was low last night, so she was given an IV fluid bolus. OBJECTIVE: Vital signs: Temperature is 98.5 degrees Fahrenheit. Blood pressure 107/59, pulse is 71, respiratory rate of 20, saturating 98% on room air. Intake and output: There is no urine output recorded. Ultrafiltration with hemodialysis was 500 mL yesterday. Weight in the bed scale is 48.8 kg. PHYSICAL EXAMINATION: General: Patient is awake, alert, oriented times three, sitting up in the sofa, in no apparent distress. Head and neck exam: Extraocular muscles intact. Pupils equally round and reactive to light. Mucous membranes are moist. Neck is supple. There is no jugular venous distention (JVD). Cardiovascular: S1, S2, regular rate. No edema of the bilateral lower extremities. Right internal jugular (IJ) tunneled hemodialysis catheter. Respiratory: Chest is clear to auscultation bilaterally. Bilateral equal air entry. No rales or rhonchi. Abdomen is soft, Positive bowel sounds. Right lower quadrant ileostomy Musculoskeletal: No clubbing or cyanosis. Pulses are 2+. Central nervous system (TOP HAT BODY MAKER). No focal deficit. Power is 5/5 in all extremities. Mild expressive ectasia, which is improving clinically. LAB REVIEW: Complete blood count (CBC) showed a hemoglobin of 9.4 yesterday and basic metabolic panel (BMP) today morning showed sodium 139, potassium 4.6, chloride 105, bicarbonate 25, BUN 34, creatinine 3.6, albumin 3. CURRENT INPATIENT MEDICATIONS: Patient's medications were all reviewed by me. She was given 1 liter normal saline bolus last night. No other change in the medications today as compared with yesterday. ASSESSMENT AND PLAN: 1. End-stage renal disease on hemodialysis. Patient was dialyzed yesterday according to Friday, Friday, Friday schedule. She only got 500 mL fluid removed but her blood pressure dropped. Further dialysis will be without any ultrafiltration 2. Deep venous thrombosis (DVT) of her superior vena cava and subclavian vein junction. Continue Lovenox 50 mg subcu daily. 3. Anemia in end-stage renal disease. Patient is getting Aranesp and iron. Rest of the anemia management will be done as outpatient once she is discharged from the hospital. 4. Multiple myeloma. Patient is getting chemotherapy as per Hematology/Oncology recommendations. DISPOSITION: It is okay to discharge the patient from nephrology standpoint. She will be followed up by nephrology as outpatient at dialysis center.
[2019-03-30 12:00] VITALS: BP 101/57
[2019-03-30] MEDS ORDERED: ASPI81CH33 PO (13:08)
--- NOTE | 2019-03-30 14:41 | DS.PDOC ---
Discharge Summary General Date of Admission March 26, 2019 at 10:31 Date of Discharge 03/30/19 Attending Physician: YAMILA ARECHIGA MD Discharge Summary PROCEDURES PERFORMED DURING STAY: [None]. ADMITTING DIAGNOSES: 1. Suspected CVA 2. ESRD on HD 3. Multiple Myeloma 4. DVT SVC junction 5. Crohn's disease DISCHARGE DIAGNOSES: 1. Suspected CVA 2. ESRD on HD 3. Multiple Myeloma 4. DVT SVC junction 5. Crohn's disease COMPLICATIONS/CHIEF COMPLAINT: Cva,Elevated Inr,Hypotension. HISTORY OF PRESENT ILLNESS: Patient "is a 73-year-old female past medical history of ESRD on HD, MM s/p stem cell transplant on treatment with Dr. Saab, Upper chest DVT? on Lovenox recently switched from Warfarin, Crohn's disease with exterminator helper termite ileostomy, Pancreatitis and hx skin melanoma/BCC s/p removal brought in from HD for reportedly hypotension and AMS. Patient noted to be have speech difficulty along with L. sided weakness, supposedly was altered but appeared completely alert and oriented in ER on my assessment. Symptoms started this morning apparently acutely. In ER, CT scan showed no acute pathology but INR was noted to be 3.8. ER physician had discussed with [facility] neurology who does not recommend giving tPA given contraindications of elevated INR as well as rapid improvement in symptoms. She currently does not speak well but denies any complaints apart from weakness. Of note patient had been on warfarin and just switched to Lovenox last night after getting the first dose for possible procedure for her pancreatitis in [place]." HOSPITAL COURSE: Patient was admitted for CVA workup. F/u MRI brain and MRA brain and carotids were negative for any acute pathology. Symptoms quickly improve in both strength as well as her speech. She continued to get HD with nephrology while in patient and made significant progress quickly. She is a strong and very amicable patient. She has been cleared by PT. Will discharge her for f/u with PCP and get outpatient Physical therapy in addition to Speech Therapy. ASA is added to her home regimen. DISCHARGE MEDICATIONS: Please see below. ALLERGIES: Please see below. PHYSICAL EXAMINATION ON DISCHARGE: VITAL SIGNS: Please see below. General: No acute distress, Alert Eyes: Normal sclera, EOMI, TERRELL HENT: Atraumatic, neck supple, moist mucous membranes Cardiovascular: Normal rate, normal rhythm. No murmurs appreciated. Pulmonary: Clear to auscultation b/l, no wheezing GI: Soft, nontender, nondistended Skin: Warm and dry Neuro: Slight L. sided facial droop. Dysarthria+ improving. L. sided weakness 4/5 in both upper and lower extremities. 5/5 in R. upper extremities. Psych: oriented x 3 LABORATORY DATA: Please see below. IMAGING: Carotid MRA- Normal MRA Carotids MRA Brain w/o contrast- IMPRESSION: 1. There is no aneurysm or arteriovenous malformation. 2. Atherosclerotic disease as described above. MR Brain- IMPRESSION: 1. Small vessel ischemic disease. 2. Minimal volume loss. CT head- Impression: Age related atrophy and microvascular ischemic changes. No acute intracranial hemorrhage, infarction, or mass/mass effect. CXR- Impression: No acute cardiopulmonary process appreciated. ACTIVITY: [As tolerated]. DIET: Pureed diet DISCHARGE PLAN: Start taking ASA daily. f/u with PCP and nephrology within 1 week. c/w PT and Speech therapy. DISPOSITION: Home. DISCHARGE INSTRUCTIONS: Start taking ASA daily. f/u with PCP and nephrology within 1 week. c/w PT and Speech therapy. ITEMS TO FOLLOWUP ON ON OUTPATIENT: None DISCHARGE CONDITION: [Stable]. TIME SPENT ON DISCHARGE: 32 minutes. Vital Signs/I&Os Vital Signs Date Time Temp Pulse Resp B/P (MAP) Pulse Ox O2 Delivery O2 Flow Rate FiO2 03/30/19 12:00 98.0 85 18 101/57 (72) 100 03/26/19 16:00 2.0 03/26/19 11:30 Room Air I&O- Last 24 Hours up to 6 AM 03/30/19 05:59 Intake Total 1720 ml Output Total 950 ml Balance 770 ml Laboratory Data Labs 24H Laboratory Tests 2 03/30/19 04:44: Prothrombin Time 12.6, Prothromb Time International Ratio 0.93, Anion Gap 9, Glomerular Filtration Rate 13.0L, Blood Urea Nitrogen 34H, Creatinine 3.67H, Sodium Level 139, Potassium Level 4.6, Chloride Level 105, Carbon Dioxide Level 25, Calcium Level 7.9L, Aspartate Amino Transf (AST/SGOT) 21, Alanine Aminotransferase (ALT/SGPT) 27, Alkaline Phosphatase 55, Total Bilirubin 1.2H, Total Protein 6.1L, Albumin 3.0L, Albumin/Globulin Ratio 0.97L CBC/BMP Laboratory Tests 03/30/19 04:44 Calcium Level 7.9 L, Aspartate Amino Transf (AST/SGOT) 21, Alanine Aminotransferase (ALT/SGPT) 27, Alkaline Phosphatase 55, Total Bilirubin 1.2 H, Total Protein 6.1 L, Albumin 3.0 L Discharge Medications Scheduled Aspirin (Aspirin) 81 Mg Tab.chew, 81 MG PO DAILY for pain Cholecalciferol (Vitamin D3) (Vitamin D3) 2,000 Unit Tab, 2,000 UNIT PO DAILY, (Reported) Cyclosporine (Restasis) 0.05 % Emu, 1 DROP OU BID, (Reported) Dexamethasone (Dexamethasone) 4 Mg Tab, 12 MG PO ASDIRECTED, (Reported) TAKES DAYS 1,8,15,22 - LAST DOSE WAS DAY 22 OF CYCLE Diphenhydramine HCl (Benadryl) 25 Mg Cap, 25 MG PO 3XW, (Reported) TAKES PRIOR TO DIALYSIS M,W,F Enoxaparin Sodium (Lovenox) 60 Mg/0.6 Ml Syringe, 50 MG SC Q12H, (Reported) Ixazomib Citrate (Ninlaro) 3 Mg Cap, 3 MG PO ASDIRECTED, (Reported) TAKES ON DAY 1,8,15 OF 22 DAY CYCLE. LAST DOSE WAS DAY 15 OF CYCLE. DUE TO START DAY ONE ON 03/28/19 Lactose-Reduced Food (Ensure Plus) 237 Ml Liquid, 1 LIQ PO QHS, (Reported) Levothyroxine Sodium (Levoxyl) 50 Mcg Tablet, 50 MCG PO DAILY, (Reported) [place]-3 Fatty Acids/Fish Oil (Fish Oil 1,000 mg Capsule) 1 Each Capsule, 1,000 MG PO DAILY, (Reported) Sevelamer Carbonate (Renvela) 800 Mg Tab, 800 MG PO WM, (Reported) Allergies Coded Allergies: vancomycin (Verified Allergy, Intermediate, RASH/ITCHING, 03/26/19) YAMILA ARECHIGA MD March 30, 2019 14:41
== END 2019-03-30 14:57 | disposition home or self-care (01) | DRG 64 ==
LOC: EDBD 07:35 → M ED 07:35 → M ED INP 10:31 → M PCU 15:33
PROVIDERS: ADMIT Student in an Organized Health Care Education/Training Program; ATTEND Student in an Organized Health Care Education/Training Program
PROC: 5A1D70Z Performance of Urinary Filtration, Intermittent, Less than 6 Hours Per Day (ICD-10-PCS; principal; 2019-03-27)
DX: I63.9 Cerebral infarction, unspecified (principal); N18.6 End stage renal disease; C90.00 Multiple myeloma not having achieved remission; K50.90 Crohn's disease, unspecified, without complications; Z94.84 Stem cells transplant status; N25.81 Secondary hyperparathyroidism of renal origin; R47.01 Aphasia; D63.1 Anemia in chronic kidney disease; R29.810 Facial weakness; Z66 Do not resuscitate; Z93.2 Ileostomy status; Z99.2 Dependence on renal dialysis; Z85.820 Personal history of malignant melanoma of skin; Z85.828 Personal history of other malignant neoplasm of skin; Z79.899 Other long term (current) drug therapy; Z88.1 Allergy status to other antibiotic agents

== ENCOUNTER → 2019-04-05 | Outpatient (CLI) | payer MEDICARE, OTHER ==
[~2019-04-05] MED LIST changes: +ASPI81CH33 PO; +FISH1000 PO; +LOVE0.4I2 SC
== END ==
LOC: M SMT 09:33
PROVIDERS: ATTEND Surgery Vascular Surgery
DX: T82.868A Thrombosis due to vascular prosthetic devices, implants and grafts, initial encounter (principal); Z79.01 Long term (current) use of anticoagulants; Y82.8 Other medical devices associated with adverse incidents

== ENCOUNTER → 2019-04-08 | Outpatient (CLI) | payer MEDICARE, OTHER ==
[~2019-04-08] MED LIST changes: +OXYCO5TA PO
--- NOTE | 2019-04-08 14:10 | REP ---
REASON: History of stenosis. There is echogenic material seen along the carotid arterial causey some of which casts an acoustic shadow consistent with calcific deposition. RIGHT LEFT CCA systolic 122.0 cm/s 119.0 cm/s CCA diastolic 26.0 cm/s 29.0 cm/s ICA systolic 102.3 cm/s 111.7 cm/s ICA diastolic 32.9 cm/s 33.7 cm/s ICA/CCA ratio 0.84 0.96 Analysis of the spectral tracing shows no evidence of significant spectral broadening. There is antegrade flow seen in both vertebral arteries. IMPRESSION: There is less than 50% stenosis of the internal carotid artery bilaterally. This is according to the NASCET consensus criteria. Electronically Signed by Carmine Vaughn DO 04/08/2019 03:36 P
== END ==
LOC: M RAD 10:33
PROVIDERS: ATTEND Surgery Vascular Surgery
DX: I65.23 Occlusion and stenosis of bilateral carotid arteries (principal)

== ENCOUNTER 2019-04-09 02:08 | Inpatient (IN) | payer MEDICARE, OTHER ==
[~2019-04-09] VITALS: Ht 162.6 cm; Wt 49.1 kg
[~2019-04-09 02:08] MED LIST changes: -OXYCO5TA PO
[2019-04-09 02:58] LABS: HEMATOCRIT 29.7 % (36.0-47.0); LYMPH # 0.5 10^3/uL (1.5-4.5); LYMPH % 10.6 % (24.0-44.0); MEAN CORPUSCULAR HEMOGLOBIN 36.9 pg (27.0-33.0); MEAN CORPUSCULAR HGB CONC 33.7 g/dl (32.0-36.5); MEAN CORPUSCULAR VOLUME 109.6 fl (80.0-96.0); MONO # 0.3 10^3/uL (0.0-0.8); MONO % 5.3 % (0.0-5.0); NEUTROPHILS # 3.9 10^3/uL (1.8-7.7); NEUTROPHILS % 83.7 % (36.0-66.0); PLATELET COUNT, AUTOMATED 249 10^3/uL (150-450); RED BLOOD COUNT 2.71 10^6/uL (4.00-5.40); WHITE BLOOD COUNT 4.7 10^3/uL (4.0-10.0)
[2019-04-09 03:26] LABS: CALCIUM LEVEL 8.9 MG/DL (8.8-10.2); CREATININE FOR GFR 6.15 MG/DL (0.55-1.30); GLOMERULAR FILTRATION RATE 7.2 (>39); POTASSIUM SERUM 4.8 MEQ/L (3.5-5.1)
[2019-04-09] MEDS ORDERED: MORPHINE 4 MG/ML 1ML VIAL/SYRINGE (J2270) IV ONE ×2 (04:30→06:30)
--- NOTE | 2019-04-09 07:01 | REPVR ---
EXAM: US Duplex Left Lower Extremity Veins, Limited EXAM DATE/TIME: 04/09/2019 5:38 AM CLINICAL HISTORY: 73 years old, female; Pain; Leg, upper; Left; Additional info: Leg pain R/O dvt TECHNIQUE: Imaging protocol: Real-time Duplex ultrasound of the Left Lower Extremity with 2-D alexander scale, color Doppler flow and spectral waveform analysis. Limited exam focused on the left lower extremity veins. COMPARISON: US Duplex, Ext,LOWER veins,unilat 03/05/2014 2:20 PM FINDINGS: Left deep veins: The common femoral, femoral, proximal profunda femoral and popliteal veins are patent without thrombus. Normal Doppler waveforms. Normal compressibility and/or augmentation response. Left superficial veins: Saphenofemoral junction is patent without thrombus. Soft tissues: In the left buttocks region, area of pain, 7.5 x 4.0 cm fluid collection identified. No blood flow within this collection. Findings could represent an abscess versus organized hematoma. Please correlate with clinical evaluation. IMPRESSION: No evidence of deep venous thrombosis in the left common femoral to left popliteal veins. In the left buttocks region, area of pain, 7.5 x 4.0 cm fluid collection identified. No blood flow within this collection. Findings could represent an abscess versus organized hematoma. Please correlate with clinical evaluation. Electronically signed by: Celestino Barker On 04/09/2019 07:01:22 AM
[2019-04-09] MEDS ORDERED: WARF-21 PO (08:04)
[2019-04-09] MEDS ORDERED: WARF-23 PO (08:04)
--- NOTE | 2019-04-09 08:36 | HPEPDOC ---
General Date of Admission 04/09/19 Date of Service: Apr 09, 2019 Primary Care Physician: FEROZ FUNES MD [facility] Other Providers Dr Thomas (vasc), Dr Granger (onc), Dr Mckenzie (nephro), Dr Owen (Ortho) Attending Physician: SERGEY WATKINS DO Chief Complaint The patient is a 73-year-old female admitted with a reason for visit of Buttock Pain. Source: Patient Exam Limitations: No limitations Timing/Duration: Day(s) (started yesterday morning 04/08/19), Changing over time Severity: Severe Associated Symptoms: Other (pain with sitting, increasing size, no releif with bengay, ice, heat) History of Present Illness 73 yo female with ESRD, clot in dialysis port, on chronic warfarin/lovenox presented with left buttock pain and swelling. She states started yesterday AM suddenly and increasing in size. no relief with ice, heat or bengay. no recent trauma or falls. No fever, no changes in urination or bowel function (has ileostomy), no skin redness. no drainage at area. moderate relief with morphine given in ED. Saw ortho, Dr Owen, yesterday for cortisone injection in right rotator cuff but didn't mention left buttock pain. States yesterday AM warfarin dose was adjusted because of low INR. States is on lovenox 50mg BID and Warfarin 7.5mg ,,,Sat and 5.0 mg ,, Sun. Home Medications Scheduled Cholecalciferol (Vitamin D3) (Vitamin D3) 2,000 Unit Tab, 2,000 UNIT PO DAILY, (Reported) Cyclosporine (Restasis) 0.05 % Emu, 1 DROP OU BID, (Reported) Dexamethasone (Dexamethasone) 4 Mg Tab, 12 MG PO ASDIRECTED, (Reported) TAKES DAYS 1,8,15, - LAST DOSE WAS DAY 1 OF CYCLE Diphenhydramine HCl (Benadryl) 25 Mg Cap, 25 MG PO 3XW, (Reported) TAKES PRIOR TO DIALYSIS ,W, Enoxaparin Sodium (Lovenox) 60 Mg/0.6 Ml Syringe, 50 MG SC Q12H, (Reported) Ixazomib Citrate (Ninlaro) 3 Mg Cap, 3 MG PO ASDIRECTED, (Reported) TAKES ON DAY 1,8,15 OF 22 DAY CYCLE. LAST DOSE WAS DAY 1 OF CYCLE Lactose-Reduced Food (Ensure Plus) 237 Ml Liquid, 1 LIQ PO QHS, (Reported) Levothyroxine Sodium (Levoxyl) 50 Mcg Tablet, 50 MCG PO DAILY, (Reported) [place]-3 Fatty Acids/Fish Oil (Fish Oil 1,000 mg Capsule) 1 Each Capsule, 1,000 MG PO DAILY, (Reported) Sevelamer Carbonate (Renvela) 800 Mg Tab, 800 MG PO WM, (Reported) Warfarin Sodium (Warfarin Sodium) 5 Mg Tablet, 5 MG PO 3XW, (Reported) QPM: SUN, TUES, THURS Warfarin Sodium (Warfarin Sodium) 7.5 Mg Tablet, 7.5 MG PO 4XWK, (Reported) QPM: MON, WED, FRI, SAT Allergies Coded Allergies: vancomycin (Verified Allergy, Intermediate, RASH/ITCHING, 03/26/19) Past Medical History Medical History rotator cuff syndrome (right) ESRD on dialysis Multiple Myeloma Crohn disease with current ileostomy Hypothyroid Right arm melanoma (removed 2009) dry eyes clot in dialysis port Surgical History kyphoplasty 2010 left arm fistula (non functioning) right chest port for dialysis S/P APPY Stem cell transplant 2008 colon and rectal resection right arm melanoma removal 2009 Family History Significant Family History: Other father health history unknown; mother from bleeding stomach ulcer Social History * Smoker: former Smoker (quit 1980) Alcohol: Denies Drugs: denies A-FIB/CHADSVASC A-FIB History Current/History of A-Fib/PAF?: No Review of Systems Other systems 10 systems reviewed and negative except as per HPI Physical Examination General Exam: Positive: Alert, Cooperative, Moderate Distress Eye Exam: Positive: PERRLA, EOMI ENT Exam: Positive: Atraumatic, Mucous membr. moist/pink Neck Exam: Positive: Supple, +2 carotid pulse wo bruit Chest Exam: Positive: Clear to auscultation, Normal air movement; Negative: Rales, Rhonchi, Wheezing Heart Exam: Positive: Rate Normal, Regular Rhythm Telemetry: Positive: Sinus Abdomen Exam: Positive: Normal bowel sounds, Soft (NT ND; ileostomy functioning) Extremity Exam: Positive: Normal pulses, Other (Left buttock with large tender hematoma); Negative: Clubbing, Cyanosis, Edema Skin Exam: Positive: Nl turgor and temperature, Other skin issue (no erythema to left buttock; small bruises to left lower abdomen from lovenox injection) Neuro Exam: Positive: Normal Speech, Normal Tone, Sensation Intact Psych Exam: Positive: Mental status NL, Mood NL, Oriented x 3 Vital Signs Vital Signs Date Time Temp Pulse Resp B/P (MAP) Pulse Ox O2 Delivery O2 Flow Rate FiO2 04/09/19 06:47 18 04/09/19 06:15 97.6 81 156/69 (98) 98 Room Air Laboratory Data Labs 24H Laboratory Tests 2 04/09/19 02:52: Immature Granulocyte % (Auto) 0.4, White Blood Count 4.7, Red Blood Count 2.71L, Hemoglobin 10.0L, Hematocrit 29.7L, Mean Corpuscular Volume 109.6H, Mean Corpuscular Hemoglobin 36.9H, Mean Corpuscular Hemoglobin Concent 33.7, Red Cell Distribution Width 15.9H, Platelet Count 249, Neutrophils (%) (Auto) 83.7H, Lymphocytes (%) (Auto) 10.6L, Monocytes (%) (Auto) 5.3H, Eosinophils (%) (Auto) 0.0, Basophils (%) (Auto) 0.0, Neutrophils # (Auto) 3.9, Lymphocytes # (Auto) 0.5L, Monocytes # (Auto) 0.3, Eosinophils # (Auto) 0.0, Basophils # (Auto) 0.0, Nucleated Red Blood Cells % (auto) 0.0, Anion Gap 13, Glomerular Filtration Rate 7.2L, Blood Urea Nitrogen 45H, Creatinine 6.15H, Sodium Level 138, Potassium Level 4.8, Chloride Level 99, Carbon Dioxide Level 26, Calcium Level 8.9 CBC/BMP Laboratory Tests 04/09/19 02:52 Red Blood Count 2.71 L, Mean Corpuscular Volume 109.6 H, Mean Corpuscular Hemoglobin 36.9 H, Mean Corpuscular Hemoglobin Concent 33.7, Red Cell Distribution Width 15.9 H, Neutrophils (%) (Auto) 83.7 H, Lymphocytes (%) (Auto) 10.6 L, Monocytes (%) (Auto) 5.3 H, Eosinophils (%) (Auto) 0.0, Basophils (%) (Auto) 0.0, Neutrophils # (Auto) 3.9, Lymphocytes # (Auto) 0.5 L, Monocytes # (Auto) 0.3, Eosinophils # (Auto) 0.0, Basophils # (Auto) 0.0, Calcium Level 8.9 Assessment/Plan Observation status 1) left buttock hematoma seen on US. will check CT without contrast for better definition Dr Thomas consulted H/H q6 hours x3 (hemoglobin at baseline currently) oxycodone for pain control 2) ESRD - on dialysis - due today - consult nephrology 3) clot in dialysis port per patient - on warfarin/enoxaprin. INR subtherapeutic. continue current warfarin and lovenox dose. Dr Thomas consulted 4) Multiple myeloma - next chemotherapeutic drug dosing due on Friday per pateint. 5) hypothyroid - continue present dose CODE STATUS: DNR Surrogate decision maker on MOLST: Ivan Burrell Plan / VTE VTE Prophylaxis Ordered?: No SERGEY WATKINS DO Apr 09, 2019 08:36
[2019-04-09] MEDS ORDERED: MAALOX 30 ML SUSP *UDC PO PRN (08:45)
[2019-04-09] MEDS ORDERED: ACETAMINOPHEN TAB 650MG DOSE (2X325MG) PO PRN (08:45)
[2019-04-09] MEDS ORDERED: MOM 30ML SUSPENSION UDC PO PRN (08:45)
[2019-04-09] MEDS: DOCUSATE SODIUM 100 MG CAP PO SCH ×2 (09:00→20:43)
--- NOTE | 2019-04-09 09:29 | REP ---
PELVIS AND LEFT HIP: AP view of the pelvis and AP and frog leg views of the left hip are performed. There is no acute fracture or dislocation. There is mild degenerative change at both hip joints, with mild joint space narrowing and subchondral sclerosis and spurring. There is mild narrowing and sclerosis at the sacroiliac joints. Multiple clips are seen throughout the pelvis. IMPRESSION: No acute fracture or dislocation. Electronically Signed by Justin Ugalde MD 04/12/2019 05:02 P
[2019-04-09] MEDS ORDERED: ENOXAPARIN 60 MG/0.6 ML SYR (J1650) SC SCH ×2 (10:00→17:00)
[2019-04-09] MEDS: LEVOTHYROXINE 50MCG TABLET (0.05MG) PO SCH (10:21)
[2019-04-09] MEDS: VITAMIN D 1,000 INTERNATIONAL UNITS TABLET PO SCH (10:21)
--- NOTE | 2019-04-09 10:42 | REP ---
CT PELVIS WITH NO IV CONTRAST: CT pelvis performed without IV contrast. Sagittal and coronal reconstruction images are performed. There is a left gluteal hematoma just deep to the gluteus arvin muscle with the epicenter at the trochanteric level of the proximal left femur. The hematoma measures 7.9 x 4.2 x 6.4 cm. No significant osseous abnormality is seen. Multiple metallic clips are seen throughout the pelvis. An ostomy is again seen in the right lower quadrant. Pelvic structures are grossly unchanged compared to the prior CT of 02/15/2019. Electronically Signed by Justin Ugalde MD 04/13/2019 09:41 A
--- NOTE | 2019-04-09 11:01 | CR.PDOC ---
General Date of Consultation: Apr 09, [address] Thomas REASON FOR CONSULTATION: hematoma HPI: 73 yo female with ESRD, clot in dialysis port, on chronic warfarin. Recently on Lovenox related to subtherapeutic INR. Pt presented with left buttock pain and swelling. She states started 04/08/19 suddenly and increasing in size. no relief with ice, heat or bengay. no recent trauma or falls. No fever, no changes in urination or bowel function (has ileostomy), no skin redness. no drainage at area. Saw ortho, Dr Owen, yesterday for cortisone injection in right rotator cuff but didn't mention left buttock pain. Warfarin dose was adjusted related to INR 04/05/19 1.5. Continues on lovenox 50mg BID related to subtherapeutic INR. Current Warfarin dose 7.5mg ,,,Sat and 5.0 mg ,, Sun. Denies any fevers, chills, Headache, Chest Pain, Shortness of breath, cough, palpitations, abdominal pain, N/V/D or changes in bowel or bladder habits. Medical History DVT SVC junction. On chronic Coumadin. recently admitted [facility] with possible CVA. ESRD on dialysis as per Nephrology Multiple Myeloma Crohn disease with current ileostomy Hypothyroid Right arm melanoma (removed 2009) dry eyes rotator cuff syndrome (right) Surgical History kyphoplasty 2010 left arm fistula (non functioning) right chest port for dialysis Appendectomy Stem cell transplant 2008 colon and rectal resection right arm melanoma removal 2009 Family History father unknown mother from bleeding stomach ulcer Social History former Smoker (quit 1980) Alcohol: Denies Drugs: denies ROS: As noted in HPI, otherwise 11pt ROS of systems reviewed and unremarkable. PE: GEN: 73yoF, appears stated age. Well-nourished, well developed. No acute distress. Alert and oriented x 3. Pleasant, interactive. HEENT: Normocephalic, atraumatic. Pupils are equal, round, and reactive to light. Extraocular movements are intact. No nystagmus appreciated. Sclera are nonicteric. Conjunctiva without injection. Nose midline. No facial asymmetry. Moist mucous membranes. Neck supple, trachea midline. CHEST: Regular rate and rhythm, +S1, +S2 LUNGS: Clear to auscultation bilaterally. No wheezes, rales, or rhonchi. Breathing appears symmetric and easy. ABD: Round, soft, non-tender, non-distended. +Bowel sounds throughout. No rebound or guarding. EXT: Pulses 2+ bilaterally dorsalis pedis and radial. No lower extremity edema appreciated. SKIN: [place], dry, warm. Capillary refill <2sec. No rashes. There is a firm area noted left buttock area which is TTP, no erythema, fluctuance, warmth noted. NEURO: Alert and oriented x 3. Cranial nerves III-XII are intact. No focal deficits appreciated. Carotid US There is less than 50% stenosis of the internal carotid artery bilaterally. This is according to the NASCET consensus criteria. Electronically Signed by Carmine Vaughn DO 04/08/2019 03:36 P US LLE IMPRESSION: No evidence of deep venous thrombosis in the left common femoral to left popliteal veins. In the left buttocks region, area of pain, 7.5 x 4.0 cm fluid collection identified. No blood flow within this collection. Findings could represent an abscess versus organized hematoma. Please correlate with clinical evaluation. Electronically signed by: Celestino Barker On 04/09/2019 07:01:22 AM Lt Hip AP view of the pelvis and AP and frog leg views of the left hip are performed. There is no acute fracture or dislocation. There is mild degenerative change at both hip joints, with mild joint space narrowing and subchondral sclerosis and spurring. There is mild narrowing and sclerosis at the sacroiliac joints. Multiple clips are seen throughout the pelvis. IMPRESSION: No acute fracture or dislocation. Unreviewed DD: Justin Ugalde MD, MD 04/09/[address] hip Pending. A&P: 1. Possible Hematoma Lt buttock. US left buttocks region, area of pain, 7.5 x 4.0 cm fluid collection. Findings could represent an abscess versus organized hematoma. CT Left hip pending. Pt is afebrile. VSS. WBC 4.7. Hgb 10.0. Appears to be at baseline 9-10. Monitor. Pt is reviewed and discussed with Dr Thomas Conservative management recommended at this time. 2. DVT SVC junction. Pt is on chronic Coumadin AC. INR at PCP office 04/05/19 was 1.5. Pt has recently been on Lovenox SQ until INR is therapeutic. Continue with Lovenox 50mg Q24hrs (renally dosed). INR this AM 1.8. D/C Lovenox when INR therapeutic. DVT prophylaxis. Pt is on Coumadin/Lovenox. Thank you for your consultation. We will continue to follow along with you. Vital Signs/I&O Vital Signs Date Time Temp Pulse Resp B/P (MAP) Pulse Ox O2 Delivery O2 Flow Rate FiO2 04/09/19 06:47 18 04/09/19 06:15 97.6 81 156/69 (98) 98 Room Air Laboratory Data Labs 24H Laboratory Tests 2 04/09/19 02:52: Immature Granulocyte % (Auto) 0.4, White Blood Count 4.7, Red Blood Count 2.71L, Hemoglobin 10.0L, Hematocrit 29.7L, Mean Corpuscular Volume 109.6H, Mean Corpuscular Hemoglobin 36.9H, Mean Corpuscular Hemoglobin Concent 33.7, Red Cell Distribution Width 15.9H, Platelet Count 249, Neutrophils (%) (Auto) 83.7H, Lymphocytes (%) (Auto) 10.6L, Monocytes (%) (Auto) 5.3H, Eosinophils (%) (Auto) 0.0, Basophils (%) (Auto) 0.0, Neutrophils # (Auto) 3.9, Lymphocytes # (Auto) 0.5L, Monocytes # (Auto) 0.3, Eosinophils # (Auto) 0.0, Basophils # (Auto) 0.0, Nucleated Red Blood Cells % (auto) 0.0, Anion Gap 13, Glomerular Filtration Rate 7.2L, Blood Urea Nitrogen 45H, Creatinine 6.15H, Sodium Level 138, Potassium Level 4.8, Chloride Level 99, Carbon Dioxide Level 26, Calcium Level 8.9 04/09/19 08:56: Bedside Prothrombin Time INR 1.8, Prothrombin Time (MISC) 21.4H CBC/BMP Laboratory Tests 04/09/19 02:52 Red Blood Count 2.71 L, Mean Corpuscular Volume 109.6 H, Mean Corpuscular Hemoglobin 36.9 H, Mean Corpuscular Hemoglobin Concent 33.7, Red Cell Distribution Width 15.9 H, Neutrophils (%) (Auto) 83.7 H, Lymphocytes (%) (Auto) 10.6 L, Monocytes (%) (Auto) 5.3 H, Eosinophils (%) (Auto) 0.0, Basophils (%) (Auto) 0.0, Neutrophils # (Auto) 3.9, Lymphocytes # (Auto) 0.5 L, Monocytes # (Auto) 0.3, Eosinophils # (Auto) 0.0, Basophils # (Auto) 0.0, Calcium Level 8.9 Allergies Coded Allergies: vancomycin (Verified Allergy, Intermediate, RASH/ITCHING, 03/26/19) Home Medications Scheduled Cholecalciferol (Vitamin D3) (Vitamin D3) 2,000 Unit Tab, 2,000 UNIT PO DAILY, (Reported) Cyclosporine (Restasis) 0.05 % Emu, 1 DROP OU BID, (Reported) Dexamethasone (Dexamethasone) 4 Mg Tab, 12 MG PO ASDIRECTED, (Reported) TAKES DAYS 1,8,15,22 - LAST DOSE WAS DAY 1 OF CYCLE Diphenhydramine HCl (Benadryl) 25 Mg Cap, 25 MG PO 3XW, (Reported) TAKES PRIOR TO DIALYSIS M,W,F Enoxaparin Sodium (Lovenox) 60 Mg/0.6 Ml Syringe, 50 MG SC Q12H, (Reported) Ixazomib Citrate (Ninlaro) 3 Mg Cap, 3 MG PO ASDIRECTED, (Reported) TAKES ON DAY 1,8,15 OF 22 DAY CYCLE. LAST DOSE WAS DAY 1 OF CYCLE Lactose-Reduced Food (Ensure Plus) 237 Ml Liquid, 1 LIQ PO QHS, (Reported) Levothyroxine Sodium (Levoxyl) 50 Mcg Tablet, 50 MCG PO DAILY, (Reported) [place]-3 Fatty Acids/Fish Oil (Fish Oil 1,000 mg Capsule) 1 Each Capsule, 1,000 MG PO DAILY, (Reported) Sevelamer Carbonate (Renvela) 800 Mg Tab, 800 MG PO WM, (Reported) Warfarin Sodium (Warfarin Sodium) 5 Mg Tablet, 5 MG PO 3XW, (Reported) QPM: SUN, TUES, THURS Warfarin Sodium (Warfarin Sodium) 7.5 Mg Tablet, 7.5 MG PO 4XWK, (Reported) QPM: MON, WED, FRI, SAT Amanda Loya Apr 09, 2019 11:01
[2019-04-09 12:38] LABS: HEMATOCRIT 28.4 % (36.0-47.0); HEMOGLOBIN 9.5 g/dl (12.0-15.5)
[2019-04-09 12:39] LABS: INR 2.03; PROTHROMBIN TIME 23.3 SECONDS (12.1-14.4)
[2019-04-09] MEDS ORDERED: HEPARIN 1,000 UNITS/ML 10ML VIAL (FOR RADIOLOGY& DIALYSIS ONLY) XX ONE (12:45)
[2019-04-09] MEDS: oxyCODONE 5MG TAB PO PRN ×3 (13:21→23:55)
[2019-04-09] MEDS: (RENVELA) SEVELAMER **CARBONate** 800 MG TAB PO SCH ×2 (15:37→17:24)
[2019-04-09 16:30] VITALS: BP 96/55
[2019-04-09] MEDS: WARFARIN SOD 7.5 MG TAB PO SCH (17:24)
[2019-04-09 18:40] LABS: HEMATOCRIT 26.7 % (36.0-47.0); HEMOGLOBIN 8.6 g/dl (12.0-15.5)
[2019-04-09 22:00] VITALS: BP 82/42
[2019-04-10] VITALS (8 sets, daily range): BP systolic 70–107; BP diastolic 36–54
[2019-04-10 00:17] LABS: HEMATOCRIT 26.4 % (36.0-47.0); HEMOGLOBIN 8.5 g/dl (12.0-15.5)
[2019-04-10] MEDS: LEVOTHYROXINE 50MCG TABLET (0.05MG) PO SCH (05:24)
[2019-04-10] MEDS: oxyCODONE 5MG TAB PO PRN ×4 (05:25→20:15)
[2019-04-10 06:52] LABS: HEMATOCRIT 26.9 % (36.0-47.0); HEMOGLOBIN 8.6 g/dl (12.0-15.5); MEAN CORPUSCULAR HEMOGLOBIN 36.3 pg (27.0-33.0); MEAN CORPUSCULAR VOLUME 113.5 fl (80.0-96.0); PLATELET COUNT, AUTOMATED 248 10^3/uL (150-450); RED BLOOD COUNT 2.37 10^6/uL (4.00-5.40); WHITE BLOOD COUNT 10.4 10^3/uL (4.0-10.0)
[2019-04-10 07:07] LABS: CALCIUM LEVEL 8.7 MG/DL (8.8-10.2); CREATININE FOR GFR 4.66 MG/DL (0.55-1.30); GLOMERULAR FILTRATION RATE 9.9 (>39); POTASSIUM SERUM 4.3 MEQ/L (3.5-5.1)
[2019-04-10 07:44] LABS: INR 2.37; PROTHROMBIN TIME 26.4 SECONDS (12.1-14.4)
[2019-04-10] MEDS: (RENVELA) SEVELAMER **CARBONate** 800 MG TAB PO SCH ×3 (08:00→18:31)
[2019-04-10] MEDS ORDERED: NS 500 ML IV ONE (08:45)
[2019-04-10] MEDS: DOCUSATE SODIUM 100 MG CAP PO SCH ×2 (09:00→20:14)
[2019-04-10] MEDS: VITAMIN D 1,000 INTERNATIONAL UNITS TABLET PO SCH (09:25)
--- NOTE | 2019-04-10 12:38 | IPNPDOC ---
Text Note Date of Service The patient was seen on 04/10/19. NOTE S: patient being seen for left gluteal hematoma. She is now therapeutic 2 days on lovenox/warfarin. still with increased gluteal pain on left. no fever. no dizziness O: Vitals as below General: mild to moderate distress with movement -laying on right side Skin: left hip and buttock with black/blue hematoma, no increase in size HRRR LCTA Labs reviewed as below with drop in hgb. discussed with nephrology and transfuse. A/P: 1) left buttock hematoma - confirmed by CT Dr Thomas consulted - supportive care 2) anemia due to bleed/hematoma: transfuse 1 unit PRBC. repeat in AM. oxycodone for pain control 3) ESRD - on dialysis - performed yesterday - nephrology consulted 4) DVT/clot in dialysis port - on warfarin/enoxaprin. INR therapuetic yesterday and today. Will d/c lovenox and continue with warfarin. . 5) Multiple myeloma - next chemotherapeutic drug dosing due on Friday per pateint. 6) hypothyroid - continue present dose VS,Fishbone, I+O VS, Fishbone, I+O Laboratory Tests 04/09/19 18:04 04/10/19 00:01 04/10/19 06:29 Red Blood Count 2.37 L, Mean Corpuscular Volume 113.5 H, Mean Corpuscular Hemoglobin 36.3 H, Mean Corpuscular Hemoglobin Concent 32.0, Red Cell Distribution Width 16.1 H, Calcium Level 8.7 L Vital Signs Date Time Temp Pulse Resp B/P (MAP) Pulse Ox O2 Delivery O2 Flow Rate FiO2 04/10/19 10:20 16 04/10/19 06:00 98.6 83 102/49 (66) 98 04/09/19 06:15 Room Air I&O- Last 24 Hours up to 6 AM 04/10/19 06:00 Intake Total 310 ml Output Total 800 ml Balance -490 ml SERGEY WATKINS DO Apr 10, 2019 12:38
[2019-04-10 13:23] LABS: HEMATOCRIT 24.4 % (36.0-47.0); HEMOGLOBIN 7.9 g/dl (12.0-15.5)
[2019-04-10] MEDS ORDERED: diphenhydrAMINE 25 MG CAP PO ONE (15:45)
[2019-04-10] MEDS ORDERED: ACETAMINOPHEN TAB 650MG DOSE (2X325MG) PO ONE (16:00)
[2019-04-10] MEDS ORDERED: NS 1,000 ML IV ONE (16:00)
--- NOTE | 2019-04-10 16:06 | IPN ---
DATE: 04/10/2019 Mrs. Turner is seen this morning on her bedside. She has complained of cramps in her hands and is currently in tears due to severe cramps in her left hand. She denies any nausea, vomiting, dyspnea or chest pain. She has no fever or chills. She does have pain in her left buttock where she has a large hematoma. PHYSICAL EXAMINATION: Temperature 98.2 degrees Fahrenheit, heart rate 82 per minute and respiratory rate 16 per minute. Blood pressure 103/51 mmHg and oxygen saturation 97% on room air. Head is atraumatic. Neck is supple and without jugular venous distention (JVD) or thyroid enlargement. Perma-Cath is present on her right upper chest without any signs of infection. Heart sounds are regular. Lungs are clear to auscultation. Abdomen is soft and nontender and colostomy is functioning. Extremities have no cyanosis or clubbing. She has a severe cramp of her left hand. She has no peripheral edema. Neurologically, she is awake, alert and oriented times three. LABORATORY DATA: Today's laboratories show WBC count 10.4, hemoglobin 8.6 and hematocrit 26.9. Platelets 248. Sodium 138, potassium 4.3, CO2 of 25, BUN 36 and creatinine 4.66. Calcium level is 8.7. PROBLEMS: 1. End-stage renal disease. The patient was dialyzed yesterday and her next dialysis will be scheduled for Friday. Electrolytes are within normal range. 2. Severe muscle cramps. She has a history of severe muscle cramps with dehydration. She does have a high output ostomy and is always at risk for dehydration. I am going to give her a normal saline bolus of 500 mL and that is likely to relieve her cramps. 3. Anemia. She has acute blood loss anemia with large hematoma on her buttock. She did have a drop in her hemoglobin from 9.5 yesterday down to 8.5 and 8.6 range. I would suggest to transfuse her at least one unit of packed red blood cell (RBC) before considering to discharge her. Her complete blood count (CBC) should be repeated again tomorrow morning. 4. Anticoagulation for central venous thrombus. The patient has been anticoagulated and now her international normalized ratio (INR) is 2.37. Her Lovenox has already been stopped. Her anticoagulation will be monitored as an outpatient. DISPOSITION: The patient can be discharged home from a renal standpoint within the next 24 hours once her hematocrit improves and stabilizes.
[2019-04-10] MEDS: WARFARIN SOD 7.5 MG TAB PO SCH (16:21)
--- NOTE | 2019-04-10 16:21 | CR ---
DATE OF CONSULTATION: 04/09/2019 CONSULTATION REPORT FOR: Dr. Peyton Bills. REASON FOR CONSULTATION: Management of end-stage renal disease on hemodialysis. CHIEF COMPLAINT: Left buttock pain. HISTORY OF PRESENT ILLNESS: Yoana Escobedo is well known to me. She is a 73-year-old female with a past medical history of end-stage renal disease on hemodialysis on a Friday, Friday, Friday schedule, history of multiple myeloma with relapse on chemotherapy and a history of Crohn's disease with ileostomy, anemia, secondary hyperparathyroidism, hypothyroidism, and other comorbid conditions mentioned below. The patient has been on anticoagulation recently for a thrombus at the superior vena cava (SVC) junction. She came to the emergency room (ER) today with complaint of acute onset of left buttock pain. She was found to have a hematoma present therein and she was admitted for pain management and nephrology consultation was requested for help in the management of her hemodialysis treatment. PAST MEDICAL HISTORY: 1. End-stage renal disease on hemodialysis. 2. 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 3. Recent transient ischemic attack (TIA). 4. Multiple myeloma. 5. Crohn's diseases with ileostomy. 6. Hypothyroidism. 7. History of melanoma. 8. Hypothyroidism. 9. Secondary hyperparathyroidism of renal origin. 10. Anemia of chronic renal failure. PAST SURGICAL HISTORY: 1. Kyphoplasty. 2. History of fistula. 3. History of Perma-Cath/ 4. Appendectomy. 5. Stem cell transplant. 6. Colon and rectal resection. 7. Ileostomy. 8. Removal of right arm melanoma. FAMILY HISTORY: Gastrointestinal (GI) ulcers for mother. SOCIAL HISTORY: Ex-smoker. No alcohol or drug use. HOME MEDICATIONS: Vitamin D3, Lovenox, Coumadin, Ninlaro, levothyroxine, omega 3 fatty acids, sevelamer. ALLERGIES: VANCOMYCIN. REVIEW OF SYSTEMS: CONSTITUTIONAL: She denies fevers or chills. EYES: She denies visual changes or tearing. EARS, NOSE AND THROAT (ENT): She denies rhinorrhea or tinnitus. CARDIAC: She denies chest pain or palpitations. RESPIRATORY: She denies shortness of breath or hemoptysis. GASTROINTESTINAL: She has ileostomy and history of Crohn's. ENDOCRINE: She reports secondary hyperparathyroidism of renal origin. She denies diabetes. HEMATOLOGIC: She has a history of multiple myeloma and stem cell transplant. She is receiving chemotherapy. She has a history of anemia. MUSCULOSKELETAL: She reports acute onset left buttock pain. She denies any new myalgias. NEUROLOGIC: She had a recent transient ischemic attack (TIA). She denies seizures. SKIN: She denies any new rashes or ulcers. Remainder of review of systems is negative or as per history of present illness (HPI). PHYSICAL EXAMINATION: VITAL SIGNS: Temperature 97.6, pulse 81, respiratory rate 18, blood pressure 156/69, saturating 98% on room air. GENERAL: The patient is seen in the hemodialysis unit receiving her treatment, elderly and thin female, pleasant, smiling, oriented times three, and in no acute distress. Extraocular muscles are intact. Tongue is moist. NECK: Supple. Perma-Cath is presently in use. CARDIAC: S1, S2, regular rate and rhythm. LUNGS: Clear to auscultation bilaterally. No crackle, rale or wheeze. ABDOMEN: Soft and nontender. There are bowel sounds. There is a functioning ileostomy. EXTREMITIES: Negative for any clubbing, cyanosis or edema. Her left buttock is not examined. NEUROLOGIC: She is oriented times three. No focal deficits. PSYCHIATRIC: Appropriate mood and effect. SKIN: Normal temperature and turgor. LABORATORY DATA: White count 4.7, hemoglobin 10.0. Sodium 138, potassium 4.88, bicarbonate 26. IMAGING STUDIES: CT pelvis 04/09/2019: Left gluteal hematoma 7.9 cm x 6.4 cm. INPATIENT MEDICATIONS: - Tylenol as needed - docusate 100 mg by mouth twice a day - Coumadin 7.5 mg by mouth Friday, Friday, Friday, Friday and 5 mg by mouth Friday, Friday, - vitamin D 2000 units by mouth daily - Renvela 800 mg by mouth with meals - oxycodone as needed - Lovenox 15 mg subcutaneous once daily PROBLEMS: 1. End-stage renal disease on hemodialysis on Friday, Friday, Friday schedule. The patient is being dialyzed today as per her maintenance schedule. Her Perma-Cath is in good use. Her electrolytes and volume status are acceptable and she will have minimal fluid removed with dialysis which is her usual normal and she will receive heparin-free dialysis in view of systemic anticoagulation. 2. Left buttock hematoma. Pain management is as per primary team. Surgery is seeing her and have recommended conservative medical management. She will continue on hemoglobin monitoring. 3. Anticoagulation. The patient is being anticoagulated because of a deep vein thrombosis (DVT) at the junction of the superior vena cava. Her international normalized ratio (INR) subtherapeutic. She is on Coumadin. She is receiving Lovenox once daily and this should be discontinued as soon as her INR approaches 2. Thank you for involving me in the care of Ms. Escobedo. I will be happy to follow her along with you.
[2019-04-10] MEDS: NS 1,000 ML IV SCH ×2 (18:31→18:57)
[2019-04-11] MEDS: oxyCODONE 5MG TAB PO PRN ×3 (01:05→11:30)
[2019-04-11 06:00] LABS: HEMATOCRIT 25.9 % (36.0-47.0); HEMOGLOBIN 8.5 g/dl (12.0-15.5); MEAN CORPUSCULAR HEMOGLOBIN 35.3 pg (27.0-33.0); MEAN CORPUSCULAR HGB CONC 32.8 g/dl (32.0-36.5); MEAN CORPUSCULAR VOLUME 107.5 fl (80.0-96.0); PLATELET COUNT, AUTOMATED 165 10^3/uL (150-450); RED BLOOD COUNT 2.41 10^6/uL (4.00-5.40); WHITE BLOOD COUNT 5.8 10^3/uL (4.0-10.0)
[2019-04-11] MEDS: LEVOTHYROXINE 50MCG TABLET (0.05MG) PO SCH (06:11)
[2019-04-11 06:13] LABS: INR 2.72; PROTHROMBIN TIME 29.4 SECONDS (12.1-14.4)
[2019-04-11 06:32] VITALS: BP 110/52
[2019-04-11] MEDS: DOCUSATE SODIUM 100 MG CAP PO SCH ×2 (07:53→19:39)
[2019-04-11] MEDS: VITAMIN D 1,000 INTERNATIONAL UNITS TABLET PO SCH (07:53)
[2019-04-11] MEDS: (RENVELA) SEVELAMER **CARBONate** 800 MG TAB PO SCH ×3 (07:54→17:13)
[2019-04-11 10:42] VITALS: BP 99/48
[2019-04-11] MEDS ORDERED: NS 1,000 ML IV SCH (11:15)
[2019-04-11] MEDS ORDERED: diphenhydrAMINE 25 MG CAP PO ONE (11:15)
[2019-04-11] MEDS ORDERED: ACETAMINOPHEN TAB 650MG DOSE (2X325MG) PO ONE (11:15)
--- NOTE | 2019-04-11 11:47 | IPNPDOC ---
Text Note Date of Service The patient was seen on 04/11/19. NOTE S: patient state pain is bearable with oxycodone, however, she is unable to sit or climb stairs because of large buttock hematoma. Patient states will not be able to sit in car to go to outpatient dialysis and will not be able to sit in dialysis chair because of large hematoma. no N, no V, no CP, no SOB O:Vitals as below General: mild distress, AAOx3 HRRR LCTA Musculoskeletal 9cm ecchymotic hematoma - not increased in size from admission A/P: 1) left buttock hematoma - confirmed by CT Dr Thomas consulted - supportive care ice, pain control, PT consulted 2) anemia due to bleed/hematoma: transfuse 1 unit PRBC on 04/10/19 Will transfuse 2 unit pRBC today; repeat CBC 1 hour post transfusion patient states in past when starting chemo had to transfuse 2 unit to get from 8 to 10. 3) ESRD - on dialysis - nephrology consulted 4) DVT/clot in dialysis port - on warfarin- therapeutic; monitor daily to avoid toxicity (high decision making for drug monitoring) 5) Multiple myeloma - next chemotherapeutic drug dosing due on Wednesday 04/11 and 04/18. patient brought med from home (dexamethasone 12mg with meal, wait 2 hour then take Ninlaro 3mg 6) hypothyroid - continue present dose Change from obs to inpatient. consult ARU, PT/OT VS,Braydenbone, I+O VS, Fishbone, I+O Laboratory Tests 04/10/19 12:54 04/11/19 05:33 Red Blood Count 2.41 L, Mean Corpuscular Volume 107.5 H, Mean Corpuscular Hemoglobin 35.3 H, Mean Corpuscular Hemoglobin Concent 32.8, Red Cell Distribution Width 17.0 H Vital Signs Date Time Temp Pulse Resp B/P (MAP) Pulse Ox O2 Delivery O2 Flow Rate FiO2 04/11/19 06:42 15 04/11/19 06:32 98.4 71 110/52 (71) 96 04/09/19 06:15 Room Air I&O- Last 24 Hours up to 6 AM 04/11/19 06:00 Intake Total 1280 ml Output Total 350 ml Balance 930 ml SERGEY WATKINS DO Apr 11, 2019 11:22
[2019-04-11 12:07] VITALS: BP 113/54
[2019-04-11 14:00] VITALS: BP 104/51
[2019-04-11] MEDS ORDERED: WARFARIN SOD 5 MG TAB PO SCH (17:00)
[2019-04-11 19:30] LABS: HEMATOCRIT 31.3 % (36.0-47.0); HEMOGLOBIN 10.8 g/dl (12.0-15.5); MEAN CORPUSCULAR HEMOGLOBIN 35.4 pg (27.0-33.0); MEAN CORPUSCULAR HGB CONC 34.5 g/dl (32.0-36.5); MEAN CORPUSCULAR VOLUME 102.6 fl (80.0-96.0); PLATELET COUNT, AUTOMATED 167 10^3/uL (150-450); RED BLOOD COUNT 3.05 10^6/uL (4.00-5.40); WHITE BLOOD COUNT 5.9 10^3/uL (4.0-10.0)
[2019-04-11] MEDS ORDERED: NINLARO PO SCH (20:00)
[2019-04-11 22:00] VITALS: BP 134/76
[2019-04-12] MEDS: oxyCODONE 5MG TAB PO PRN ×3 (01:11→13:46)
[2019-04-12 02:00] VITALS: BP 106/50
[2019-04-12] MEDS: (RENVELA) SEVELAMER **CARBONate** 800 MG TAB PO SCH ×3 (05:50→17:08)
[2019-04-12] MEDS: LEVOTHYROXINE 50MCG TABLET (0.05MG) PO SCH (05:51)
[2019-04-12] MEDS: VITAMIN D 1,000 INTERNATIONAL UNITS TABLET PO SCH (05:51)
[2019-04-12 05:59] VITALS: BP 88/62
[2019-04-12 06:17] LABS: HEMATOCRIT 31.9 % (36.0-47.0); HEMOGLOBIN 10.8 g/dl (12.0-15.5); MEAN CORPUSCULAR HEMOGLOBIN 33.3 pg (27.0-33.0); MEAN CORPUSCULAR HGB CONC 33.9 g/dl (32.0-36.5); MEAN CORPUSCULAR VOLUME 98.5 fl (80.0-96.0); PLATELET COUNT, AUTOMATED 171 10^3/uL (150-450); RED BLOOD COUNT 3.24 10^6/uL (4.00-5.40); WHITE BLOOD COUNT 5.2 10^3/uL (4.0-10.0)
[2019-04-12 06:25] LABS: INR 2.54; PROTHROMBIN TIME 27.9 SECONDS (12.1-14.4)
[2019-04-12 06:48] LABS: CALCIUM LEVEL 8.1 MG/DL (8.8-10.2); CREATININE FOR GFR 5.92 MG/DL (0.55-1.30); GLOMERULAR FILTRATION RATE 7.5 (>39); POTASSIUM SERUM 4.7 MEQ/L (3.5-5.1)
--- NOTE | 2019-04-12 07:47 | IPNPDOC ---
Text Note Date of Service The patient was seen on 04/12/19. NOTE 73 yo ESRD on dialysis with recent DVT/clot in dialysis port on warfarin/lovenox bridge when she developed atraumatic left gluteal hematoma, non surgical and requiring 3 unit pRBC. S: patient states feels better but still with weakness when walking due to gluteal hematoma O: vitals as below HRRR LCTA Musculoskeletal: gluteal hematoma - stable A/P: 73 yo ESRD on dialysis with recent DVT/clot in dialysis port on warfarin/lovenox bridge when she developed atraumatic left gluteal hematoma, non surgical and requiring 3 unit pRBC. 1) left buttock hematoma - confirmed by CT Dr Thomas consulted - supportive care ice, pain control, PT consulted 2) anemia due to bleed/hematoma: transfuse 1 unit PRBC on 04/10/19 transfuse 2 unit pRBC on 04/11/19 3) ESRD - on dialysis - nephrology consulted 4) DVT/clot in dialysis port - on warfarin- therapeutic; monitor daily to avoid toxicity (high decision making for drug monitoring) 5) Multiple myeloma - chemotherapeutic drug dosing due on Wednesday 04/18. patient brought med from home (dexamethasone 12mg with meal, wait 2 hour then take Ninlaro 3mg) 6) hypothyroid - continue present dose ARU consult pending for discharge VS,Roxy, I+O VS, [place], I+O Laboratory Tests 04/11/19 19:12 Red Blood Count 3.05 L, Mean Corpuscular Volume 102.6 H, Mean Corpuscular Hemoglobin 35.4 H, Mean Corpuscular Hemoglobin Concent 34.5, Red Cell Distribution Width 18.5 H 04/12/19 05:57 Red Blood Count 3.24 L, Mean Corpuscular Volume 98.5 H, Mean Corpuscular Hemoglobin 33.3 H, Mean Corpuscular Hemoglobin Concent 33.9, Red Cell Distribution Width 18.2 H, Calcium Level 8.1 L Vital Signs Date Time Temp Pulse Resp B/P (MAP) Pulse Ox O2 Delivery O2 Flow Rate FiO2 04/12/19 06:22 16 04/12/19 05:59 98.8 72 88/62 (71) 96 04/09/19 06:15 Room Air I&O- Last 24 Hours up to 6 AM 04/12/19 05:59 Intake Total 1465 ml Output Total 1975 ml Balance -510 ml SERGEY WATKINS DO Apr 12, 2019 07:47
[2019-04-12] MEDS: DOCUSATE SODIUM 100 MG CAP PO SCH (09:00)
--- NOTE | 2019-04-12 09:27 | IPN ---
DATE OF VISIT: 04/11/2019 Mrs. Escobedo is seen this morning on her bedside. She continues to have pain in her left buttock area where she has a large hematoma. She has difficulty getting up and walking. She also finds difficulty sitting in the chair. She is currently receiving blood transfusion. She denies any nausea, vomiting, dyspnea or chest pain. Her muscle cramps have resolved since she was given normal saline bolus yesterday. On physical exam, temperature 98.6 degrees Fahrenheit, heart rate 80 per minute and respiratory rate 16 per minute. Blood pressure 99/48 mmHg and oxygen saturation 95% on room air. Head is atraumatic. Neck is supple and without jugular venous distention (JVD) or thyroid enlargement. She has no oral thrush or ulcers. Right internal jugular vein Perm-A-Cath is in place without any signs of infection. Heart sounds are regular and lungs sound clear to auscultation. Abdomen is soft and nontender and without palpable organomegaly. Her colostomy is functioning. Extremities have no cyanosis or clubbing. Large hematoma on the left buttock area is essentially unchanged. Neurologically, she is awake, alert and oriented times three. Today's labs show WBC count 5.8, hemoglobin 8.5 and hematocrit 25.9. Platelets 165. She did not have any chemistry today. PROBLEMS: 1. End stage renal disease. Patient is regularly dialyzed on Friday, Friday and Friday schedule. He is going to be dialyzed tomorrow morning. There is no emergent need for dialysis today. 2. Muscle cramps. She had muscle cramps yesterday probably due to dehydration. She has a high output ostomy and we usually maintain her weight during dialysis. She was given normal saline bolus 500 mL yesterday which did help to resolve her muscle cramps and she is feeling much better today. 3. Acute blood loss anemia related to left buttock area large hematoma where she has lost blood. She is receiving packed RBCs right now and her anemia has already improved compared to yesterday with one urine given yesterday. 4. Pain and difficulty ambulating. Patient finds significant pain when she tries to ambulate or sit. She is likely to require rehabilitation for a few days prior to discharge. She will not be able to climb stairs or ride in the vehicle for dialysis treatment as outpatient. 5. SVC thrombus and anticoagulation. Her INR is now 2.72. Will need to monitor and probably adjust her Coumadin dose. Her INR is still increasing and we may have to cut down the dose of her Coumadin.
[2019-04-12] MEDS ORDERED: HEPARIN 1,000 UNITS/ML 10ML VIAL (FOR RADIOLOGY& DIALYSIS ONLY) XX ONE (10:30)
--- NOTE | 2019-04-12 10:51 | IPN ---
DATE: 04/12/2019 Mrs. Escobedo is seen this morning during hemodialysis. She had two more units of packed RBCs transfused yesterday and she is feeling much better. She denies any more cramps, dyspnea or chest pain. She does have pain in her left buttock and leg when she walks. She reports that she did sit up for an hour. She denies any nausea, vomiting, dyspnea or chest pain. On physical examination, temperature is 98.8 degrees Fahrenheit, heart rate 72 per minute and respiratory rate 16 per minute. Blood pressure about 100/60 mmHg and oxygen saturation 96% on room air. Head is atraumatic. Neck is supple and without jugular venous distention (JVD) or thyroid enlargement. Heart sounds are regular and lungs clear to auscultation. Abdomen: Soft and nontender. Her colostomy is functioning. Bowel sounds are normal. Extremities have no cyanosis or clubbing. Neurologically, she is awake, alert and oriented times three. She has a Perma-Cath in right upper chest without any signs of infection or bleeding. Today's labs show WBC count 5.2, hemoglobin 10.8 and hematocrit 31.9. Platelets 171. Sodium 139, potassium 4.7, CO2 22, BUN 63 and creatinine 5.92. Calcium level is 8.1. PROBLEMS: 1. End-stage renal disease. The patient is being dialyzed today and she is tolerating dialysis treatment well. We will not remove any fluid as her volume status is usually well compensated because of high output ostomy. Her electrolytes are within normal range. 2. Anemia. She had blood loss anemia due to left buttock area hematoma. Her anemia has now improved after transfusion of 3 units of packed RBCs. I do not feel that she has any active bleeding at this point and we will continue to watch her. 3. Left buttock area hematoma and pain. She is still unable to ambulate. She will need acute rehabilitation. At this point, she has difficulty even getting out of bed. 4. Multiple myeloma. She does have history of multiple myeloma for which she has been on chemo previously. Chemo is on hold currently due to acute problems. She is receiving dexamethasone 12 mg daily for now. 5. 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 She has been on Coumadin and her INR is 2.54 today which is appropriate. Will continue with the same. MTDD
[2019-04-12 14:00] VITALS: BP 91/53
[2019-04-12] MEDS ORDERED: OXYCO5TA PO (15:02)
--- NOTE | 2019-04-12 15:19 | IPNPDOC ---
Date Seen The patient was seen on 04/12/19. Progress Note Vascular Surgery Dr Thomas HPI: 73 yo female with ESRD, clot in dialysis port, on chronic warfarin, admitted with hematoma Left buttock. Denies any fevers, chills, Headache, Chest Pain, Shortness of breath, cough, palpitations, abdominal pain, N/V/D or changes in bowel or bladder habits. Medical History DVT SVC junction. On chronic Coumadin. recently admitted [facility] with possible CVA. ESRD on dialysis as per Nephrology Multiple Myeloma Crohn disease with current ileostomy Hypothyroid Right arm melanoma (removed 2009) dry eyes rotator cuff syndrome (right) Surgical History kyphoplasty 2010 left arm fistula (non functioning) right chest port for dialysis Appendectomy Stem cell transplant 2008 colon and rectal resection right arm melanoma removal 2009 PE: GEN: 73yoF, appears stated age. Alert and oriented x 3. Pleasant, interactive. HEENT: Normocephalic, atraumatic. Sclera are nonicteric. Conjunctiva without injection. Moist mucous membranes. CHEST: Regular rate and rhythm, +S1, +S2 LUNGS: Clear to auscultation bilaterally. No wheezes, rales, or rhonchi. ABD: Round, soft, non-tender, non-distended. +Bowel sounds throughout. EXT: No lower extremity edema appreciated. SKIN: White, dry, warm. Capillary refill <2sec. No rashes. lLeft buttock area ecchymosis, mild TTP, no erythema, fluctuance, warmth noted. NEURO: Alert and oriented x 3. Cranial nerves III-XII are intact. No focal deficits appreciated. Carotid US There is less than 50% stenosis of the internal carotid artery bilaterally. This is according to the NASCET consensus criteria. Electronically Signed by Carmine Vaughn DO 04/08/2019 03:36 P US LLE IMPRESSION: No evidence of deep venous thrombosis in the left common femoral to left popliteal veins. In the left buttocks region, area of pain, 7.5 x 4.0 cm fluid collection identified. No blood flow within this collection. Findings could represent an abscess versus organized hematoma. Please correlate with clinical evaluation. Electronically signed by: Celestino Barker On 04/09/2019 07:01:22 AM Lt Hip AP view of the pelvis and AP and frog leg views of the left hip are performed. There is no acute fracture or dislocation. There is mild degenerative change at both hip joints, with mild joint space narrowing and subchondral sclerosis and spurring. There is mild narrowing and sclerosis at the sacroiliac joints. Multiple clips are seen throughout the pelvis. IMPRESSION: No acute fracture or dislocation. Unreviewed DD: Justin Ugalde MD, MD 04/09/[address] pelvis performed without IV contrast. Sagittal and coronal reconstruction images are performed. There is a left gluteal hematoma just deep to the glutitis arvin muscle with the epicenter at the trochanteric level of the proximal left femur. The hematoma measures 7.9 x 4.2 x 6.4 cm. No significant osseous abnormality is seen. Multiple metallic clips are seen throughout the pelvis. An ostomy is again seen in the right lower quadrant. Pelvic structures are grossly unchanged compared to the prior CT of 02/15/2019. A&P: 1. Possible Hematoma Lt buttock. Pt is reviewed and discussed with Dr Thomas Conservative management recommended at this time. 2. DVT SVC junction. Pt is on chronic Coumadin AC. INR 2.54. DVT prophylaxis. Pt is on Coumadin. Thank you for your consultation. We will continue to follow along with you. VS, I&O, 24H, Fishbone Vital Signs/I&O Vital Signs Date Time Temp Pulse Resp B/P (MAP) Pulse Ox O2 Delivery O2 Flow Rate FiO2 04/12/19 14:16 16 04/12/19 05:59 98.8 72 88/62 (71) 96 04/09/19 06:15 Room Air I&O- Last 24 Hours up to 6 AM 04/12/19 06:00 Intake Total 925 ml Output Total 2275 ml Balance -1350 ml Laboratory Data 24H LABS Laboratory Tests 2 04/11/19 19:12: Nucleated Red Blood Cells % (auto) 0.0 04/12/19 05:57: Nucleated Red Blood Cells % (auto) 0.0, Prothrombin Time 27.9H, Prothromb Time International Ratio 2.54, Anion Gap 12, Glomerular Filtration Rate 7.5L, Blood Urea Nitrogen 63#H, Creatinine 5.92H, Sodium Level 139, Potassium Level 4.7, Chloride Level 105, Carbon Dioxide Level 22, Calcium Level 8.1L CBC/BMP Laboratory Tests 04/11/19 19:12 Red Blood Count 3.05 L, Mean Corpuscular Volume 102.6 H, Mean Corpuscular Hemoglobin 35.4 H, Mean Corpuscular Hemoglobin Concent 34.5, Red Cell Distribution Width 18.5 H 04/12/19 05:57 Red Blood Count 3.24 L, Mean Corpuscular Volume 98.5 H, Mean Corpuscular Hemoglobin 33.3 H, Mean Corpuscular Hemoglobin Concent 33.9, Red Cell Distribution Width 18.2 H, Calcium Level 8.1 L Amanda Loya Apr 12, 2019 15:19
[2019-04-12] MEDS: WARFARIN SOD 7.5 MG TAB PO SCH (17:08)
--- NOTE | 2019-04-12 18:04 | DS.PDOC ---
Discharge Summary General Date of Admission Apr 11, 2019 at 11:15 Date of Discharge 04/12/19 Primary Care Physician: FEROZ FUNES MD [facility] Attending Physician: SERGEY WATKINS DO Specialist/Consultants Involve: KB PHAM DO Specialist/Consultants Involve Dr Thomas Discharge Summary PROCEDURES PERFORMED DURING STAY: -transfuse 1 unit PRBC on 04/10/19 -transfuse 2 unit pRBC on 04/11/19 -Dialysis 04/12/19 ADMITTING DIAGNOSES: 1) left buttock hematoma 2) ESRD - on dialysis - due today - consult nephrology 3) clot in dialysis port 4) Multiple myeloma 5) hypothyroid DISCHARGE DIAGNOSES: 1) left buttock hematoma 2) anemia due to bleed/hematoma: 3) ESRD - on dialysis 4) DVT/clot in dialysis port 5) Multiple myeloma 6) hypothyroid COMPLICATIONS/CHIEF COMPLAINT: Acute Buttock Pain. HISTORY OF PRESENT ILLNESS: 73 yo ESRD on dialysis with recent DVT/clot in dialysis port on warfarin/lovenox bridge when she developed atraumatic, non surg ical left gluteal hematoma. see H&P for details HOSPITAL COURSE: Patient placed under observation, symptomatic care with ice, heat, pain medication provided. Serial H/H followed and patient required total 3 unit pRBC transfused. Her INR were monitored, warfarin adjusted and lovenox stopped. CT Scan confirmed left gluteal hematoma and surgery consulted - stated non surgical intervention. Patient had difficulty sitting in chair and walking because of hematoma and pain. She is being transferred to ARU for further treatment. Patient received dialysis during hospitalization. She did receive her friday dose of chemotherapeutic oral drug and this will need to be repeated in 1 week. DISCHARGE MEDICATIONS: Please see below. ALLERGIES: Please see below. PHYSICAL EXAMINATION ON DISCHARGE: VITAL SIGNS: Please see below. General: pleasant, NAD, AAOx3 HRRR no murmur LCTA no W/R/R Ext: no ankle edema Musculoskeletal: left gluteal hematoma approx 9 cm and stable/improving LABORATORY DATA: Please see below. PROGNOSIS:Good ACTIVITY: as tolerated DIET: as tolerated DISPOSITION: Discharge to ARU DISCHARGE INSTRUCTIONS: 1. monitor INR for therapeutic levels of warfarin 2. monitor H/H for further anemia (goal of Hgb with ESRD = 10) 3. dialysis M,W,F 4. chemotherapeutic drug on Friday04/18/19:dexamethasone 12mg with dinner meal, wait 2 hour then take Ninlaro 3mg . DISCHARGE CONDITION: stable TIME SPENT ON DISCHARGE: 35 minutes. Vital Signs/I&Os Vital Signs Date Time Temp Pulse Resp B/P (MAP) Pulse Ox O2 Delivery O2 Flow Rate FiO2 04/12/19 14:16 16 04/12/19 05:59 98.8 72 88/62 (71) 96 04/09/19 06:15 Room Air I&O- Last 24 Hours up to 6 AM 04/12/19 06:00 Intake Total 925 ml Output Total 2275 ml Balance -1350 ml Laboratory Data Labs 24H Laboratory Tests 2 04/11/19 19:12: Nucleated Red Blood Cells % (auto) 0.0 04/12/19 05:57: Nucleated Red Blood Cells % (auto) 0.0, Prothrombin Time 27.9H, Prothromb Time International Ratio 2.54, Anion Gap 12, Glomerular Filtration Rate 7.5L, Blood Urea Nitrogen 63#H, Creatinine 5.92H, Sodium Level 139, Potassium Level 4.7, Chloride Level 105, Carbon Dioxide Level 22, Calcium Level 8.1L CBC/BMP Laboratory Tests 04/11/19 19:12 Red Blood Count 3.05 L, Mean Corpuscular Volume 102.6 H, Mean Corpuscular Hemoglobin 35.4 H, Mean Corpuscular Hemoglobin Concent 34.5, Red Cell Distribution Width 18.5 H 04/12/19 05:57 Red Blood Count 3.24 L, Mean Corpuscular Volume 98.5 H, Mean Corpuscular Hemoglobin 33.3 H, Mean Corpuscular Hemoglobin Concent 33.9, Red Cell Distribution Width 18.2 H, Calcium Level 8.1 L Discharge Medications Scheduled Cholecalciferol (Vitamin D3) (Vitamin D3) 2,000 Unit Tab, 2,000 UNIT PO DAILY, (Reported) Cyclosporine (Restasis) 0.05 % Emu, 1 DROP OU BID, (Reported) Dexamethasone (Dexamethasone) 4 Mg Tab, 12 MG PO ASDIRECTED, (Reported) TAKES DAYS 1,8,15, - LAST DOSE WAS DAY 1 OF CYCLE Diphenhydramine HCl (Benadryl) 25 Mg Cap, 25 MG PO 3XW, (Reported) TAKES PRIOR TO DIALYSIS M,W,F Ixazomib Citrate (Ninlaro) 3 Mg Cap, 3 MG PO ASDIRECTED, (Reported) TAKES ON DAY 1,8,15 OF 22 DAY CYCLE. LAST DOSE WAS DAY 1 OF CYCLE Lactose-Reduced Food (Ensure Plus) 237 Ml Liquid, 1 LIQ PO QHS, (Reported) Levothyroxine Sodium (Levoxyl) 50 Mcg Tablet, 50 MCG PO DAILY, (Reported) [place]-3 Fatty Acids/Fish Oil (Fish Oil 1,000 mg Capsule) 1 Each Capsule, 1,000 MG PO DAILY, (Reported) Sevelamer Carbonate (Renvela) 800 Mg Tab, 800 MG PO WM, (Reported) Warfarin Sodium (Warfarin Sodium) 5 Mg Tablet, 5 MG PO 3XW, (Reported) QPM: SUN, TU, THURS Warfarin Sodium (Warfarin Sodium) 7.5 Mg Tablet, 7.5 MG PO 4XWK, (Reported) QPM: MON, WED, FRI, SAT Scheduled PRN Oxycodone HCl (Oxycodone HCl) 5 Mg Tablet, 5 MG PO Q4HP PRN for PAIN Allergies Coded Allergies: vancomycin (Verified Allergy, Intermediate, RASH/ITCHING, 03/26/19) SERGEY WATKINS DO Apr 12, 2019 15:04
== END 2019-04-12 17:25 | DRG 555 ==
LOC: M ED 02:08 → M ED INP 08:31 → M MS5PR 11:55 → OBSVTOIN 04-11 11:15
PROVIDERS: ADMIT Family Medicine; ATTEND Family Medicine
PROC: 30233N1 Transfusion of Nonautologous Red Blood Cells into Peripheral Vein, Percutaneous Approach (ICD-10-PCS; 2019-04-11)
PROC: 5A1D70Z Performance of Urinary Filtration, Intermittent, Less than 6 Hours Per Day (ICD-10-PCS; principal; 2019-04-12)
DX: M79.81 Nontraumatic hematoma of soft tissue (principal); N18.6 End stage renal disease; C90.00 Multiple myeloma not having achieved remission; K50.90 Crohn's disease, unspecified, without complications; D62 Acute posthemorrhagic anemia; N25.81 Secondary hyperparathyroidism of renal origin; Z94.84 Stem cells transplant status; E03.9 Hypothyroidism, unspecified; H04.123 Dry eye syndrome of bilateral lacrimal glands; M75.101 Unspecified rotator cuff tear or rupture of right shoulder, not specified as traumatic; Z93.2 Ileostomy status; Z99.2 Dependence on renal dialysis; Z85.820 Personal history of malignant melanoma of skin; Z87.891 Personal history of nicotine dependence; Z79.01 Long term (current) use of anticoagulants; Z79.899 Other long term (current) drug therapy; I65.23 Occlusion and stenosis of bilateral carotid arteries; Z86.718 Personal history of other venous thrombosis and embolism; Z86.73 Personal history of transient ischemic attack (TIA), and cerebral infarction without residual deficits; D63.1 Anemia in chronic kidney disease; Z90.49 Acquired absence of other specified parts of digestive tract; R25.2 Cramp and spasm; E86.0 Dehydration

== ENCOUNTER 2019-04-12 16:10 | Inpatient (IN) | payer MEDICARE, OTHER ==
[~2019-04-12] VITALS: Ht 162.6 cm; Wt 49.1 kg
[~2019-04-12 16:10] MED LIST changes: +OXYCO5TA PO
--- NOTE | 2019-04-12 17:24 | HPEPDOC ---
Microwave Supervisor Note DATE OF ADMISSION: SOURCE OF ADMISSION INFORMATION: [facility] records and patient CHIEF COMPLAINT: left buttock hematoma with foot drop HISTORY OF PRESENT ILLNESS: 73F pmh ESRD on HD, on Coumadin for a SVC thrombus, Crohns with ileostomy, and multiple myeloma who presented to [facility] on 04/09/19 complaining of left buttock pain and difficulty ambulating. US revealed, In the left buttocks region, area of pain, 7.5 x 4.0 cm fluid collection identified. No blood flow within this collection. Findings could represent an abscess versus organized hematoma. Hip and pelvis imaging was negative for fracture. She was found to be anemic and required multiple blood transfusions. Vascular surgery was consulted who recommended conservative management. She had high volume output from her ostomy requiring IVF. She was evaluated by therapy and found to be well below her prior level of function only able to ambulate 5 feet and needing considerable assistance with dressing due to fatigue and buttock pain. She was deemed medically appropriate for discharge o ARU on 04/12/19 with goals to improve her endurance and return to being able to comfortably ambulate household distances at a modified independent level. REVIEW OF SYSTEMS: The following is a completed review of systems and has been reviewed. Review of systems otherwise unremarkable. PAIN: Patient self reports left buttock pain EYES: Negative for recent vision changes EARS, NOSE, & THROAT: reports mild dysphagia with solids, no throat pain CARDIOVASCULAR: denies chest pain or palpitations PULMONARY: Negative. chronic shortness of breath on exertion GASTROINTESTINAL: +ileostomy GENITOURINARY: Negative for dysuria MUSCULOSKELETAL: left leg weakness and foot drop NEUROLOGICAL:no tremor, +peripheral neuropathy HEMATOLOGICAL:+multiple myeloma and anemia SKIN: no rashes PSYCHIATRIC: Unremarkable All other review of systems found to be negative. PAST MEDICAL HISTORY: SVC thrombus on coumain, ESRD, multiple myeloma, Crohn's disease with ileostomy, hypothyroid, melanoma PAST SURGICAL HISTORY: right chest port (HD), appendectomy, stem cell transplant, colon-rectal resection, melanoma removal ALLERGIES: Please see below. MEDICATIONS: Please see below. SOCIAL HISTORY: DIET: renal PHYSICAL EXAMINATION: VITAL SIGNS: Please see below. GENERAL: Pleasant and cooperative. No acute distress. HEENT: PERRL. Extraocular movements intact. Clear conjunctiva CARDIOVASCULAR: Regular rate and rhythm. No murmurs, rubs, or gallops LUNGS: Clear to auscultation bilaterally. No wheezes. No rhonchi ABDOMEN: Soft, nontender, nondistended. Positive bowel sounds. Normal active bowel sounds, +ileostomy NEUROLOGICAL: Alert and oriented times three. Cranial nerves II through XII grossly intact. Sensation grossly intact in all 4 limbs except mildly diminished bilateral feet EXTREMITIES: 5\5 strength bilateral upper extremities. 5\5 strength right lower extremity. 4/5 left hip flexion and knee extension (pain limited), 3+/5 ankle DF and EHL, 4/5 ankle PF SKIN: left buttock with swelling and ecchymosis IMAGING: Imaging documentation personally reviewed by record FUNCTIONAL STATUS: Premorbid: Modified Independent with all activities of daily life as well as mobility with RW On Admission: Able to ambulate 5 feet with RW contact guard, Mod-assist for lower body dressing, CG-stand-by assist for functional transfers GOALS: Mod-I with RW household distances, stairs, Mod-I for bathing, toileting, dressing, fall recovery, medical optimization, pain management, caregiver training, assess for DMEs ASSESSMENT:73-year-old F with past medical history of who presents status post left gluteal hematoma with inability to walk PLAN: 1. Rehab: PT, OT, and [facility]ER for self-reported dysphagia, goal is to strengthen left leg especially ankle dorsiflexors, improve dynamic balance and work on safety performing ADLs 2. Neuro: left buttock hematoma causing left ankle foot drop likely due to irritation/compression of the sciatic nerve, consider bracing and will refer to outpatient neuro for possible NCS/EMG -avoid deliriogenic meds 3. Cardiac/Vascular: patient with SVC thrombus, was on Lovenox and coumadin at home, now just on coumadin, will consult medicine to follow and manage INR -will need outpatient f/u with Dr. Thomas 4. 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 Heme/Onc: will monitor patient's Hgb/Hct in setting of buttock hematoma, s/p multiple blood transfusions on inpatient stay, due for chemotherapy Friday, will coordinate with Dr. Granger 6. GI: Protonix for ppx and, ileostomy care per patient for pmh Crohn's 7. : monitor PVRs, patient reports oliguria 8. Renal: ESRD on HD, HD , will consult Dr. Mckenzie 9. DNR 10. Dispo: TBD POST ADMISSION PHYSICIAN EVALUATION: Medical and functional status: Description of medical status, medical assessment: As above. Rehabilitation diagnosis and current and prior cold morbid medical conditions as above. Risk of complications and plans to mitigate them as above. Description of functional status current status is as above. Prior status as above. Status compared to preadmission: There are no clinically significant differences between the patient's current status and the information described on the preadmission screening document. Treatment plan anticipated: Treatment plan is as described above. Required disciplines including physical therapy, occupational therapy, others as noted above. Intensity of services: 3 hours a day, 6 days a week. Special considerations: There are no specific special or safety considerations that would likely preclude immediate implementation of an intensive rehabilitation program or subsequently influence the plan of care ATTESTATION: Considering all the information above, it is my best judgment that this patient requires intensive rehabilitation therapy as described above and an inpatient hospital environment due to the complexity of nursing, medical, and rehabilitation needs required by the patient. Furthermore, this patient can reasonably be expected to participate in an benefit from an inpatient hugo abilitation stay with an interdisciplinary team approach to the delivery of rehabilitation care under the direction and supervision of rehabilitation physician. PROGNOSIS: Excellent ESTIMATED LENGTH OF STAY:10-12 days. PROJECTED DISCHARGE DESTINATION: Home with family support and any durable medical equipment required to increase functional safety and mobility TIME SPENT COUNSELING AND COORDINATING INITIAL CARE: Greater than 70 minutes. Vital Signs Vital Signs Date Time Temp Pulse Resp B/P (MAP) Pulse Ox O2 Delivery O2 Flow Rate FiO2 04/12/19 17:30 98.0 76 17 123/61 (81) 94 Home Medications Scheduled Cholecalciferol (Vitamin D3) (Vitamin D3) 2,000 Unit Tab, 2,000 UNIT PO DAILY, (Reported) Cyclosporine (Restasis) 0.05 % Emu, 1 DROP OU BID, (Reported) Dexamethasone (Dexamethasone) 4 Mg Tab, 12 MG PO ASDIRECTED, (Reported) TAKES DAYS 1,8,15,22 - LAST DOSE WAS DAY 1 OF CYCLE Diphenhydramine HCl (Benadryl) 25 Mg Cap, 25 MG PO 3XW, (Reported) TAKES PRIOR TO DIALYSIS M,W,F Ixazomib Citrate (Ninlaro) 3 Mg Cap, 3 MG PO ASDIRECTED, (Reported) TAKES ON DAY 1,8,15 OF 22 DAY CYCLE. LAST DOSE WAS DAY 1 OF CYCLE Lactose-Reduced Food (Ensure Plus) 237 Ml Liquid, 1 LIQ PO QHS, (Reported) Levothyroxine Sodium (Levoxyl) 50 Mcg Tablet, 50 MCG PO DAILY, (Reported) [place]-3 Fatty Acids/Fish Oil (Fish Oil 1,000 mg Capsule) 1 Each Capsule, 1,000 MG PO DAILY, (Reported) Sevelamer Carbonate (Renvela) 800 Mg Tab, 800 MG PO WM, (Reported) Warfarin Sodium (Warfarin Sodium) 5 Mg Tablet, 5 MG PO 3XW, (Reported) QPM: SUN, TUES, THURS Warfarin Sodium (Warfarin Sodium) 7.5 Mg Tablet, 7.5 MG PO 4XWK, (Reported) QPM: MON, WED, FRI, SAT Scheduled PRN Oxycodone HCl (Oxycodone HCl) 5 Mg Tablet, 5 MG PO Q4HP PRN for PAIN Allergies Coded Allergies: vancomycin (Verified Allergy, Intermediate, RASH/ITCHING, 03/26/19) A-FIB/CHADSVASC A-FIB History Current/History of A-Fib/PAF?: No MICKI LIEBERMAN MD Apr 12, 2019 17:23
[2019-04-12 17:30] VITALS: BP 123/61
[2019-04-12] MEDS ORDERED: oxyCODONE 5MG TAB PO PRN (17:30)
[2019-04-12 20:00] VITALS: BP 102/54
[2019-04-12] MEDS ORDERED: ENTER DRUG NAME HERE (PATIENT'S OWN MED) OU SCH (21:00)
[2019-04-12] MEDS: ACETAMINOPHEN TAB 650MG DOSE (2X325MG) PO PRN (22:37)
[2019-04-13] MEDS: ACETAMINOPHEN TAB 650MG DOSE (2X325MG) PO PRN ×3 (02:55→21:36)
[2019-04-13 05:26] VITALS: BP 136/66
[2019-04-13] MEDS: LEVOTHYROXINE 50MCG TABLET (0.05MG) PO SCH (06:01)
[2019-04-13 07:06] LABS: EOS % 0.3 % (0.0-3.0); HEMATOCRIT 32.2 % (36.0-47.0); HEMOGLOBIN 10.5 g/dl (12.0-15.5); LYMPH # 0.7 10^3/uL (1.5-4.5); LYMPH % 11.9 % (24.0-44.0); MEAN CORPUSCULAR HEMOGLOBIN 33.4 pg (27.0-33.0); MEAN CORPUSCULAR HGB CONC 32.6 g/dl (32.0-36.5); MEAN CORPUSCULAR VOLUME 102.5 fl (80.0-96.0); MONO # 0.5 10^3/uL (0.0-0.8); MONO % 9.2 % (0.0-5.0); NEUTROPHILS # 4.5 10^3/uL (1.8-7.7); NEUTROPHILS % 78.1 % (36.0-66.0); PLATELET COUNT, AUTOMATED 147 10^3/uL (150-450); RED BLOOD COUNT 3.14 10^6/uL (4.00-5.40); WHITE BLOOD COUNT 5.7 10^3/uL (4.0-10.0)
[2019-04-13 07:20] LABS: INR 3.23; PROTHROMBIN TIME 33.7 SECONDS (12.1-14.4)
[2019-04-13 07:37] LABS: ALBUMIN 2.7 GM/DL (3.2-5.2); BILIRUBIN,TOTAL 1.5 MG/DL (0.2-1.0); CALCIUM LEVEL 8.4 MG/DL (8.8-10.2); CREATININE FOR GFR 3.9 MG/DL (0.55-1.30); GLOMERULAR FILTRATION RATE 12.1 (>39); POTASSIUM SERUM 3.9 MEQ/L (3.5-5.1); TOTAL PROTEIN 5.8 GM/DL (6.4-8.2)
[2019-04-13] MEDS: VITAMIN D 1,000 INTERNATIONAL UNITS TABLET PO SCH (08:43)
[2019-04-13] MEDS: OMEGA-3 1000MG CAPSULE PO SCH (08:43)
[2019-04-13] MEDS: PANTOPRAZOLE 40MG TAB (PROTONIX) PO SCH (08:43)
[2019-04-13] MEDS: (RENVELA) SEVELAMER **CARBONate** 800 MG TAB PO SCH ×3 (08:43→17:47)
--- NOTE | 2019-04-13 11:25 | IPNPDOC ---
Subjective Date Seen The patient was seen on 04/13/19. Subjective Chief Complaint/HPI As per patient, swelling and hematoma is resolving. No new complaints General: Denies: ROS Unobtainable, Chills, Night Sweats, Fatigue, Malaise, Normal Appetite, Other Symptoms Constitutional: Denies: Chills, Fever, Malaise, Night Sweats, Weakness, Fatigue, Weight Loss, Lethargy, Other ENT: Denies: Head Aches, Ear Pain, Dysphagia, Sinus Congestion, Post Nasal Drip, Sore Throat, Epistaxis, Other Symptoms Skin: Denies: Rash, Lesions, Jaundice, Bruising, Itching, Dry, Breakdown, Nail Changes, Other Pulmonary: Denies: Dyspnea, Cough, Pleuritic Chest Pain, Other Symptoms Cardiovascular: Denies: Chest Pain, Palpitations, Orthopnea, Paroxysmal Noc. Dyspnea, Edema, Lt Headedness, Other Symptoms Gastrointestinal: Denies: Nausea, Vomiting, Abdominal Pain, Diarrhea, Constipation, Melena, Hematochezia, Other Symptoms Musculoskeletal: Denies: Neck Pain, Back Pain, Shoulder Pain, Arm Pain, Hand Pain, Leg Pain, Foot Pain, Joint Pain, Muscle Pain, Spasms, Other Symptoms Psych: Denies: Mood Normal, Anxiety, Depression, Memory Issues, Thoughts of Se lf Harm, Anger, Thoughts of Harming Other, Other Psych Objective Physical Examination General Exam: Positive: Alert, Cooperative Eye Exam: Positive: PERRLA, Conjunctiva & lids normal ENT Exam: Positive: Atraumatic, Mucous membr. moist/pink Neck Exam: Positive: Supple Chest Exam: Positive: Clear to auscultation, Normal air movement Heart Exam: Positive: Rate Normal, Normal S1, Normal S2 Abdomen Exam: Positive: Normal bowel sounds Extremity Exam: Positive: Normal pulses Skin Exam: Positive: Nl turgor and temperature Neuro Exam: Positive: Normal Gait, Normal Speech Psych Exam: Positive: Mental status NL Assessment /Plan Problems (1) Gluteal pain Status: Acute Problem Text: Secondary to large left gluteal hematoma occurred during warfar in. Lovenox transition Patient seen by surgery, but no surgical intervention recommended Patient is receiving physical therapy in acute rehabilitation unit Pain management as per orders End-stage renal disease on dialysis Also on warfarin for DVT and dialysis port Monitor, chloride Plan/VTE VTE Prophylaxis Ordered?: Yes VS, I&O, 24H, Fishbone Vital Signs/I&O Vital Signs Date Time Temp Pulse Resp B/P (MAP) Pulse Ox O2 Delivery O2 Flow Rate FiO2 04/13/19 05:26 97.9 63 18 136/66 (89) 96 I&O- Last 24 Hours up to 6 AM 04/13/19 06:00 Intake Total 600 ml Output Total 300 ml Balance 300 ml Laboratory Data 24H LABS Laboratory Tests 2 04/13/19 06:54: Immature Granulocyte % (Auto) 0.5, White Blood Count 5.7, Red Blood Count 3.14L, Hemoglobin 10.5L, Hematocrit 32.2L, Mean Corpuscular Volume 102.5H, Mean Corpuscular Hemoglobin 33.4H, Mean Corpuscular Hemoglobin Concent 32.6, Red Cell Distribution Width 18.3H, Platelet Count 147L, Neutrophils (%) (Auto) 78.1H, Lymphocytes (%) (Auto) 11.9L, Monocytes (%) (Auto) 9.2H, Eosinophils (%) (Auto) 0.3, Basophils (%) (Auto) 0.0, Neutrophils # (Auto) 4.5, Lymphocytes # (Auto) 0.7L, Monocytes # (Auto) 0.5, Eosinophils # (Auto) 0.0, Basophils # (Auto) 0.0, Nucleated Red Blood Cells % (auto) 0.0, Prothrombin Time 33.7H, Prothromb Time International Ratio 3.23, Anion Gap 9, Glomerular Filtration Rate 12.1L, Blood Urea Nitrogen 42H, Creatinine 3.90H, Sodium Level 140, Potassium Level 3.9, Chloride Level 107, Carbon Dioxide Level 24, Calcium Level 8.4L, Aspartate Amino Transf (AST/SGOT) 28, Alanine Aminotransferase (ALT/SGPT) 27, Alkaline Phospha tase 52, Total Bilirubin 1.5H, Total Protein 5.8L, Albumin 2.7L, Albumin/Globulin Ratio 0.87L CBC/BMP Laboratory Tests 04/13/19 06:54 Red Blood Count 3.14 L, Mean Corpuscular Volume 102.5 H, Mean Corpuscular Hemoglobin 33.4 H, Mean Corpuscular Hemoglobin Concent 32.6, Red Cell Distribution Width 18.3 H, Neutrophils (%) (Auto) 78.1 H, Lymphocytes (%) (Auto) 11.9 L, Monocytes (%) (Auto) 9.2 H, Eosinophils (%) (Auto) 0.3, Basophils (%) (Auto) 0.0, Neutrophils # (Auto) 4.5, Lymphocytes # (Auto) 0.7 L, Monocytes # (Auto) 0.5, Eosinophils # (Auto) 0.0, Basophils # (Auto) 0.0, Calcium Level 8.4 L, Aspartate Amino Transf (AST/SGOT) 28, Alanine Aminotransferase (ALT/SGPT) 27, Alkaline Phosphatase 52, Total Bilirubin 1.5 H, Total Protein 5.8 L, Albumin 2.7 L FLORENCIA EUCEDA MD Apr 13, 2019 11:25
[2019-04-13 12:37] LABS: INR 3.3; PROTHROMBIN TIME 34.3 SECONDS (12.1-14.4)
[2019-04-13 14:00] VITALS: BP 110/52
[2019-04-13] MEDS ORDERED: IPRATROPIUM 0.5MG/ALBUTEROL 2.5MG INH SOL UD 3ML (DUONEB)(J7620) NEB SCH (14:00)
--- NOTE | 2019-04-13 15:05 | IPNPDOC ---
PM&R Progress Note DATE OF SERVICE: Apr 13, 2019 Quilting Supervisor Progress Note Subjective: Patient reports she feels her left ankle strength is improving and she would like to be on a regular diet. She believes the Duoneb treatments make her exer tional dyspnea worse. REVIEW OF SYSTEMS: The following is a completed review of systems and has been reviewed. Review of systems otherwise unremarkable. PAIN: Patient self reports left buttock pain EYES: Negative for recent vision changes EARS, NOSE, & THROAT: reports mild dysphagia with solids, no throat pain CARDIOVASCULAR: denies chest pain or palpitations PULMONARY: Negative. chronic shortness of breath on exertion GASTROINTESTINAL: +ileostomy GENITOURINARY: Negative for dysuria MUSCULOSKELETAL: left leg weakness and foot drop NEUROLOGICAL:no tremor, +peripheral neuropathy HEMATOLOGICAL:+multiple myeloma and anemia SKIN: no rashes PSYCHIATRIC: Unremarkable All other review of systems found to be negative. PHYSICAL EXAMINATION: VITAL SIGNS: Please see below. GENERAL: Pleasant and cooperative. No acute distress. HEENT: PERRL. Extraocular movements intact. Clear conjunctiva CARDIOVASCULAR: Regular rate and rhythm. No murmurs, rubs, or gallops LUNGS: Clear to auscultation bilaterally. No wheezes. No rhonchi ABDOMEN: Soft, nontender, nondistended. Positive bowel sounds. Normal active bowel sounds, +ileostomy NEUROLOGICAL: Alert and oriented times three. Cranial nerves II through XII grossly intact. Sensation grossly intact in all 4 limbs except mildly diminished bilateral feet EXTREMITIES: 5\5 strength bilateral upper extremities. 5\5 strength right lower extremity. 4/5 left hip flexion and knee extension (pain limited), 4/5 ankle DF and EHL, 5/5 ankle PF SKIN: left buttock with swelling and ecchymosis, medial left thigh with ecchymosis ASSESSMENT:73-year-old F with past medical history of who presents status post left gluteal hematoma with inability to walk PLAN: 1. Rehab: PT, OT, and INSTRUMENT SPECIALIST for self-reported dysphagia, goal is to strengthen left leg especially ankle dorsiflexors, improve dynamic balance and work on safety performing ADLs -ambulating well in PT with RW 2. Neuro: left buttock hematoma causing left ankle foot drop likely due to irritation/compression of the sciatic nerve, consider bracing and will refer to outpatient neuro for possible NCS/EMG -avoid deliriogenic meds 3. Cardiac/Vascular: patient with SVC thrombus, was on Lovenox and Coumadin at home, now just on Coumadin, will consult medicine to follow and manage INR -will need outpatient f/u with Dr. Thomas 4. 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 Heme/Onc: will monitor patient's Hgb/Hct in setting of buttock hematoma, s/p multiple blood transfusions on inpatient stay, due for chemotherapy Friday, will coordinate with Dr. Granger 6. GI: Protonix for ppx and, ileostomy care per patient for pmh Crohn's 7. : monitor PVRs, patient reports oliguria 8. Renal: ESRD on HD, HD , Dr. Mckenzie consulted, recs appreciated 9. DNR 10. Dispo: 04/20/19 to home, progressing towards goals Allergies Coded Allergies: vancomycin (Verified Allergy, Intermediate, RASH/ITCHING, 03/26/19) Vital Signs Vital Signs Date Time Temp Pulse Resp B/P (MAP) Pulse Ox O2 Delivery O2 Flow Rate FiO2 04/13/19 05:26 97.9 63 18 136/66 (89) 96 Laboratory Data CBC/BMP Laboratory Tests 04/13/19 06:54 Red Blood Count 3.14 L, Mean Corpuscular Volume 102.5 H, Mean Corpuscular Hemoglobin 33.4 H, Mean Corpuscular Hemoglobin Concent 32.6, Red Cell Distribution Width 18.3 H, Neutrophils (%) (Auto) 78.1 H, Lymphocytes (%) (Auto) 11.9 L, Monocytes (%) (Auto) 9.2 H, Eosinophils (%) (Auto) 0.3, Basophils (%) (Auto) 0.0, Neutrophils # (Auto) 4.5, Lymphocytes # (Auto) 0.7 L, Monocytes # (Auto) 0.5, Eosinophils # (Auto) 0.0, Basophils # (Auto) 0.0, Calcium Level 8.4 L, Aspartate Amino Transf (AST/SGOT) 28, Alanine Aminotransferase (ALT/SGPT) 27, Alkaline Phosphatase 52, Total Bilirubin 1.5 H, Total Protein 5.8 L, Albumin 2.7 L Labs 24H Laboratory Tests 2 04/13/19 06:54: Immature Granulocyte % (Auto) 0.5, White Blood Count 5.7, Red Blood Count 3.14L, Hemoglobin 10.5L, Hematocrit 32.2L, Mean Corpuscular Volume 102.5H, Mean Corpuscular Hemoglobin 33.4H, Mean Corpuscular Hemoglobin Concent 32.6, Red Cell Distribution Width 18.3H, Platelet Count 147L, Neutrophils (%) (Auto) 78.1H, Lymphocytes (%) (Auto) 11.9L, Monocytes (%) (Auto) 9.2H, Eosinophils (%) (Auto) 0.3, Basophils (%) (Auto) 0.0, Neutrophils # (Auto) 4.5, Lymphocytes # (Auto) 0.7L, Monocytes # (Auto) 0.5, Eosinophils # (Auto) 0.0, Basophils # (Auto) 0.0, Nucleated Red Blood Cells % (auto) 0.0, Prothrombin Time 33.7H, Prothromb Time International Ratio 3.23, Anion Gap 9, Glomerular Filtration Rate 12.1L, Blood Urea Nitrogen 42H, Creatinine 3.90H, Sodium Level 140, Potassium Level 3.9, Chloride Level 107, Carbon Dioxide Level 24, Calcium Level 8.4L, Aspartate Amino Transf (AST/SGOT) 28, Alanine Aminotransferase (ALT/SGPT) 27, Alkaline Phosphatase 52, Total Bilirubin 1.5H, Total Protein 5.8L, Albumin 2.7L, Albumin/Globulin Ratio 0.87L 04/13/19 12:14: Prothrombin Time 34.3H, Prothromb Time International Ratio 3.30 Current Medications Current Medications Current Medications Acetaminophen (Tylenol Tab) 650 mg Q4HP PRN PO MILD PAIN (PS 1-4) Last admi nistered on 04/13/19 13:03; Start 04/12/19 at 17:30 Albuterol/ Ipratropium (Duoneb (Ipr 0.5mg/Alb 2.5mg)) 3 ml RTID NEB Last administered on 04/13/19 13:45; Start 04/13/19 at 14:00 Fish Oil ([place]-3 (1000mg)) 1 cap DAILY PO Last administered on 04/13/19 08:43; Start 04/13/19 at 09:00 Fluticasone Propionate (Flonase 0.05% Nasal [place]) 1 spray BID NARES ; Start 04/13/19 at 09:00 Levothyroxine Sodium (Synthroid) 50 mcg DAILY@06 PO Last administered on 04/13/19at 06:01; Start 04/13/19 at 06:00 Miscellaneous (Unresolved Patient Own Med Order) SEE LABEL COMMENTS DAILY XX ; Start 04/12/19 at 09:00 Miscellaneous (Unresolved Patient Own Med Order) SEE LABEL COMMENTS DAILY XX ; Start 04/12/19 at 09:00 Oxycodone HCl (Roxicodone, Oxyir) 5 mg Q4HP PRN PO PAIN; Start 04/12/19 at 17:30 Pantoprazole Sodium (Protonix) 40 mg DAILY PO Last administered on 04/13/19at 08:43; Start 04/13/19 at 09:00 Patient Own Medication (Patient'S Own Med) restasis/ cyclosporine 0.05% OU BID BID OU ; Start 04/12/19 at 21:00; Status UNV Sevelamer Carbonate (Renvela) 800 mg WM PO Last administered on 04/13/19at 13: 02; Start 04/13/19 at 08:00 Vitamin D (Vitamin D) 2,000 units DAILY PO Last administered on 04/13/19at 08:43; Start 04/13/19 at 09:00 Warfarin Sodium (Coumadin) 5 mg SuTuTh@1700 PO ; Start 04/13/19 at 17:00; Status Future hold Warfarin Sodium (Coumadin) 7.5 mg MoWeFrSa@1700 PO ; Start 04/14/19 at 17:00 MICKI LIEBERMAN MD Apr 13, 2019 15:05
[2019-04-13] MEDS ORDERED: WARFARIN SOD 5 MG TAB PO SCH (17:00)
[2019-04-13 20:00] VITALS: BP 104/62
[2019-04-13] MEDS: IPRATROPIUM HFA INHALER 12.9 GRAMS (ATROVENT HFA) INH SCH (20:18)
[2019-04-13] MEDS: FLUTICASONE PROP 0.05% NASAL SPRAY 16 GM (FLONASE) NARES SCH ×2 (21:35→21:43)
--- NOTE | 2019-04-13 21:37 | IPN ---
DATE: 04/13/2019 Mrs. Escobedo is seen this morning on her bedside in acute rehab floor. She is sitting in the chair at the time of my visit. She reports that she had a shower and feels really good today. She is in good spirits and has started to walk in the hallway with the help of a walker and physical therapist. She denies any dyspnea, chest pain, nausea or vomiting. PHYSICAL EXAMINATION: Temperature 97.9 degrees Fahrenheit, heart rate 64 per minute and respiratory rate 18 per minute. Blood pressure 136/66 mmHg and oxygen saturation 96%. Head is atraumatic. Neck is supple and without jugular venous distention (JVD) or thyroid enlargement. Heart sounds regular and lungs clear to auscultation. Abdomen: Soft and nontender. Bowel sounds are normal and colostomy is functioning. Extremities: Without any cyanosis or clubbing. Neurologically she is awake, alert and oriented times three. Today's labs show WBC count 5.7, hemoglobin 10.5 and hematocrit 32.2. INR is 3.23 from this morning. Chemistry showed sodium 140, potassium 3.9, CO2 of 24, BUN 42 and creatinine 3.90. Total protein 5.8 and albumin 2.7. PROBLEMS: 1. End-stage renal disease. The patient is regularly dialyzed on Friday, Friday and Friday schedule. She was dialyzed yesterday and will be scheduled for next dialysis tomorrow. 2. Anemia. Her anemia is stable since she was transfused. She did have large hematoma on her left buttock with acute blood loss. Since transfusion, she has been doing well. 3. Multiple myeloma. She is stable at present and continues with her chronic therapy. 4. Left buttock hematoma and difficulty with ambulation. The patient had a large hematoma on her left buttock; however, she is now able to sit with some discomfort and has started to ambulate with the help of physical therapist.
[2019-04-14] MEDS: ACETAMINOPHEN TAB 650MG DOSE (2X325MG) PO PRN ×3 (04:14→20:24)
[2019-04-14 05:42] LABS: BASO % 0.2 % (0.0-1.0); EOS # 0.1 10^3/uL (0.0-0.50); EOS % 1.6 % (0.0-3.0); HEMATOCRIT 32.7 % (36.0-47.0); HEMOGLOBIN 10.8 g/dl (12.0-15.5); LYMPH # 0.5 10^3/uL (1.5-4.5); LYMPH % 12.2 % (24.0-44.0); MEAN CORPUSCULAR HEMOGLOBIN 34.5 pg (27.0-33.0); MEAN CORPUSCULAR VOLUME 104.5 fl (80.0-96.0); MONO # 0.4 10^3/uL (0.0-0.8); MONO % 9.9 % (0.0-5.0); NEUTROPHILS # 3.3 10^3/uL (1.8-7.7); NEUTROPHILS % 75.4 % (36.0-66.0); PLATELET COUNT, AUTOMATED 142 10^3/uL (150-450); RED BLOOD COUNT 3.13 10^6/uL (4.00-5.40); WHITE BLOOD COUNT 4.3 10^3/uL (4.0-10.0)
[2019-04-14 05:53] LABS: INR 3.28; PROTHROMBIN TIME 34.1 SECONDS (12.1-14.4)
[2019-04-14 06:00] VITALS: BP 113/56
[2019-04-14 06:08] LABS: CREATININE FOR GFR 4.5 MG/DL (0.55-1.30); GLOMERULAR FILTRATION RATE 10.3 (>39); POTASSIUM SERUM 4.2 MEQ/L (3.5-5.1)
[2019-04-14] MEDS: LEVOTHYROXINE 50MCG TABLET (0.05MG) PO SCH (06:21)
[2019-04-14] MEDS: (RENVELA) SEVELAMER **CARBONate** 800 MG TAB PO SCH ×3 (08:00→18:21)
[2019-04-14] MEDS: IPRATROPIUM HFA INHALER 12.9 GRAMS (ATROVENT HFA) INH SCH ×2 (08:03→20:13)
[2019-04-14] MEDS: OMEGA-3 1000MG CAPSULE PO SCH (08:57)
[2019-04-14] MEDS: PANTOPRAZOLE 40MG TAB (PROTONIX) PO SCH (08:57)
[2019-04-14] MEDS: VITAMIN D 1,000 INTERNATIONAL UNITS TABLET PO SCH (08:57)
[2019-04-14] MEDS: FLUTICASONE PROP 0.05% NASAL SPRAY 16 GM (FLONASE) NARES SCH ×2 (08:58→20:12)
--- NOTE | 2019-04-14 10:36 | NUR ---
Recommend continue regular solids, thin liquids. No s/sx aspiration noted on exam. Pt tolerates regular solids & thin liquids w/ no oropharyngeal phase dysphagia noted. Pt c/o intermittent globus sensation during meals for the past 2 years. Recommend esophagram barium swallow to assess for possible reflux. F/u dysphagia tx x1 for behavioral GERD management strategies. Addendum: 04/14/[address] [facility] Amended: Links added.
--- NOTE | 2019-04-14 10:41 | NUR ---
Pt scores wnl on cognitive assessment. on MMSE & informal assessments are accurate. Pt denies difficulties w/ memory, attn, word-finding or other cognitive functions. Cognitive tx is not recommended at this time. Addendum: 04/14/19 at [address] [facility] Amended: Links added.
--- NOTE | 2019-04-14 11:25 | IPNPDOC ---
PM&R Progress Note DATE OF SERVICE: Apr 14, 2019 Clam Digger Progress Note Subjective: Patient seen in room today after speech therapy stating she feels even stronger and that she is open to trying an antacid for her occasional feeling of globus. REVIEW OF SYSTEMS: The following is a completed review of systems and has been reviewed. Review of systems otherwise unremarkable. PAIN: Patient self reports left buttock pain EYES: Negative for recent vision changes EARS, NOSE, & THROAT: reports mild dysphagia with solids, no throat pain CARDIOVASCULAR: denies chest pain or palpitations PULMONARY: Negative. chronic shortness of breath on exertion GASTROINTESTINAL: +ileostomy GENITOURINARY: Negative for dysuria MUSCULOSKELETAL: left leg weakness and foot drop NEUROLOGICAL:no tremor, +peripheral neuropathy HEMATOLOGICAL:+multiple myeloma and anemia SKIN: no rashes PSYCHIATRIC: Unremarkable All other review of systems found to be negative. PHYSICAL EXAMINATION: VITAL SIGNS: Please see below. GENERAL: Pleasant and cooperative. No acute distress. HEENT: PERRL. Extraocular movements intact. Clear conjunctiva CARDIOVASCULAR: Regular rate and rhythm. No murmurs, rubs, or gallops LUNGS: Clear to auscultation bilaterally. No wheezes. No rhonchi ABDOMEN: Soft, nontender, nondistended. Positive bowel sounds. Normal active bowel sounds, +ileostomy NEUROLOGICAL: Alert and oriented times three. Cranial nerves II through XII grossly intact. Sensation grossly intact in all 4 limbs except mildly diminished bilateral feet EXTREMITIES: 5\5 strength bilateral upper extremities. 5\5 strength right lower extremity. 4/5 left hip flexion and knee extension (pain limited), 4/5 ankle DF and EHL, 5/5 ankle PF SKIN: left buttock with swelling and ecchymosis, medial left thigh with ecchymosis ASSESSMENT:73-year-old F with past medical history of who presents status post left gluteal hematoma with inability to walk PLAN: 1. Rehab: PT, OT, and RAILROAD COOK for self-reported dysphagia, goal is to strengthen left leg especially ankle dorsiflexors, improve dynamic balance and work on safety performing ADLs -ambulating well in PT with RW 2. Neuro: left buttock hematoma causing left ankle foot drop likely due to irritation/compression of the sciatic nerve, consider bracing and will refer to outpatient neuro for possible NCS/EMG -avoid deliriogenic meds 3. Cardiac/Vascular: patient with SVC thrombus, was on Lovenox and Coumadin at home, now just on Coumadin, will consult medicine to follow and manage INR -will need outpatient f/u with Dr. Thomas 4. 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 Heme/Onc: will monitor patient's Hgb/Hct in setting of buttock hematoma, s/p multiple blood transfusions on inpatient stay, due for chemotherapy Friday, will coordinate with Dr. Granger 6. GI: Protonix for ppx and, ileostomy care per patient for pmh Crohn's 7. : monitor PVRs, patient reports oliguria 8. Renal: ESRD on HD, HD , Dr. Mckenzie consulted, recs appreciated 9. DNR 10. Dispo: 04/20/19 to home, progressing towards goals Allergies Coded Allergies: vancomycin (Verified Allergy, Intermediate, RASH/ITCHING, 03/26/19) Vital Signs Vital Signs Date Time Temp Pulse Resp B/P (MAP) Pulse Ox O2 Delivery O2 Flow Rate FiO2 04/14/19 06:00 98.3 61 18 113/56 (75) 98 Laboratory Data CBC/BMP Laboratory Tests 04/14/19 05:32 Red Blood Count 3.13 L, Mean Corpuscular Volume 104.5 H, Mean Corpuscular Hemoglobin 34.5 H, Mean Corpuscular Hemoglobin Concent 33.0, Red Cell Distribution Width 17.5 H, Neutrophils (%) (Auto) 75.4 H, Lymphocytes (%) (Auto) 12.2 L, Monocytes (%) (Auto) 9.9 H, Eosinophils (%) (Auto) 1.6, Basophils (%) (Auto) 0.2, Neutrophils # (Auto) 3.3, Lymphocytes # (Auto) 0.5 L, Monocytes # (Auto) 0.4, Eosinophils # (Auto) 0.1, Basophils # (Auto) 0.0, Calcium Level 8.0 L Labs 24H Laboratory Tests 2 04/13/19 12:14: Prothrombin Time 34.3H, Prothromb Time International Ratio 3.30 04/14/19 05:32: Prothrombin Time 34.1H, Prothromb Time International Ratio 3.28, Immature Granulocyte % (Auto) 0.7, White Blood Count 4.3, Red Blood Count 3.13L, Hemoglobin 10.8L, Hematocrit 32.7L, Mean Corpuscular Volume 104.5H, Mean Corpuscular Hemoglobin 34.5H, Mean Corpuscular Hemoglobin Concent 33.0, Red Cell Distribution Width 17.5H, Platelet Count 142L, Neutrophils (%) (Auto) 75.4H, Lymphocytes (%) (Auto) 12.2L, Monocytes (%) (Auto) 9.9H, Eosinophils (%) (Auto) 1.6, Basophils (%) (Auto) 0.2, Neutrophils # (Auto) 3.3, Lymphocytes # (Auto) 0.5L, Monocytes # (Auto) 0.4, Eosinophils # (Auto) 0.1, Basophils # (Auto) 0.0, Nucleated Red Blood Cells % (auto) 0.0, Anion Gap 8, Glomerular Filtration Rate 10.3L, Blood Urea Nitrogen 54H, Creatinine 4.50H, Sodium Level 141, Potassium Level 4.2, Chloride Level 109H, Carbon Dioxide Level 24, Calcium Level 8.0L Current Medications Current Medications Current Medications Acetaminophen (Tylenol Tab) 650 mg Q4HP PRN PO MILD PAIN (PS 1-4) Last administered on 04/14/19 08:59; Start 04/12/19 at 17:30 Albuterol/ Ipratropium (Duoneb (Ipr 0.5mg/Alb 2.5mg)) 3 ml RTID NEB Last administered on 04/13/19 13:45; Start 04/13/19 at 14:00; Stop 04/13/19 at 18:46; Status DC Fish Oil ([place]-3 (1000mg)) 1 cap DAILY PO Last administered on 04/14/19 08:57; Start 04/13/19 at 09:00 Fluticasone Propionate (Flonase 0.05% Nasal [place]) 1 spray BID NARES Last administered on 04/14/19 08:58; Start 04/13/19 at 09:00 Ipratropium [place] (Atrovent Hfa) 2 puff BID INH Last administered on 04/14/19 08:03; Start 04/13/19 at 21:00 Levothyroxine Sodium (Synthroid) 50 mcg DAILY@06 PO Last administered on 6/12/19at 06:21; Start 04/13/19 at 06:00 Miscellaneous (Unresolved Patient Own Med Order) SEE LABEL COMMENTS DAILY XX ; Start 04/12/19 at 09:00; Stop 04/14/19 at 10:07; Status DC Miscellaneous (Unresolved Patient Own Med Order) SEE LABEL COMMENTS DAILY XX ; Start 04/12/19 at 09:00; Stop 04/14/19 at 10:07; Status DC Oxycodone HCl (Roxicodone, Oxyir) 5 mg Q4HP PRN PO PAIN; Start 04/12/19 at 17:30 Pantoprazole Sodium (Protonix) 40 mg DAILY PO Last administered on 04/14/19at 08:57; Start 04/13/19 at 09:00 Pantoprazole Sodium (Protonix) 40 mg DAILY PO ; Start 04/15/19 at 09:00; Stop 04/15/19 at 09:00; Status DC Patient Own Medication (Patient'S Own Med) restasis/ cyclosporine 0.05% OU BID BID OU ; Start 04/12/19 at 21:00; Stop 04/13/19 at 15:06; Status DC Sevelamer Carbonate (Renvela) 800 mg WM PO Last administered on 04/13/19at 17:47; Start 04/13/19 at 08:00 Vitamin D (Vitamin D) 2,000 units DAILY PO Last administered on 04/14/19at 08:57; Start 04/13/19 at 09:00 Warfarin Sodium (Coumadin) 5 mg SuTuTh@1700 PO ; Start 04/13/19 at 17:00; Status Future hold Warfarin Sodium (Coumadin) 7.5 mg MoWeFrSa@1700 PO ; Start 04/14/19 at 17:00; Status Future hold MICKI LIEBERMAN MD Apr 14, 2019 11:25
[2019-04-14] MEDS: SUCRALFATE 1 GM TAB PO SCH ×2 (12:12→18:21)
--- NOTE | 2019-04-14 12:40 | IPN ---
DATE OF VISIT: 04/14/2019 Mrs. Turner is seen this morning on her bedside. She is participating with speech therapy at this present time. She has been doing physical therapy on acute rehabilitation floor and had started ambulating. She was dialyzed on Friday and is due for dialysis again this afternoon. The patient denies any dyspnea, chest pain, nausea, or vomiting. On physical examination, temperature 98.3 degrees Fahrenheit, heart rate 62 per minute, respiratory rate 18 per minute. Blood pressure 103/56 mmHg and oxygen saturation 98%. Head is atraumatic. Neck is supple and without jugular venous distention (JVD) or thyroid enlargement. Heart sounds are regular and lungs clear to auscultation. Abdomen: Soft and nontender. Bowel sounds are present. Her colostomy is functioning. Extremities have no cyanosis or clubbing. Her left buttock hematoma is decreasing in size. She has significant ecchymosis on her thigh and buttock area. Neurologically, she is awake, alert, and at her baseline mentation. Today's laboratories show WBC count 4.3, hemoglobin 10.8, and hematocrit 32.7. Sodium 141, potassium 4.2, BUN 54, and creatinine 4.5. PROBLEMS: 1. End-stage renal disease. The patient is due for dialysis and will be dialyzed this afternoon. Her volume status has been well compensated, and electrolytes are within normal range. 2. Anemia. She had acute blood loss anemia, which improved following transfusion of 3 units of packed red blood cells (RBCs). At this point, will continue to monitor, and no further intervention is indicated. 3. Hypotension. Her blood pressure is chronically low, and she is not on any medications. We do not remove any fluid with dialysis. 4. Left buttock hematoma. Her hematoma is gradually spreading, and size is decreasing. Her pain has improved, and she has started to ambulate. 5. Multiple myeloma. The patient remains on her chronic therapy and tolerating it well.
[2019-04-14] MEDS ORDERED: WARFARIN SOD 7.5 MG TAB PO SCH (17:00)
[2019-04-14 18:00] VITALS: BP 140/72
[2019-04-14 20:00] VITALS: BP 109/53
[2019-04-15 06:00] VITALS: BP 123/84
[2019-04-15] MEDS: LEVOTHYROXINE 50MCG TABLET (0.05MG) PO SCH (06:22)
[2019-04-15 06:36] LABS: INR 1.65; PROTHROMBIN TIME 19.8 SECONDS (12.1-14.4)
[2019-04-15] MEDS: SUCRALFATE 1 GM TAB PO SCH ×2 (08:00→12:20)
[2019-04-15] MEDS: (RENVELA) SEVELAMER **CARBONate** 800 MG TAB PO SCH ×3 (08:00→17:35)
[2019-04-15] MEDS: IPRATROPIUM HFA INHALER 12.9 GRAMS (ATROVENT HFA) INH SCH ×2 (08:07→19:48)
[2019-04-15] MEDS: FLUTICASONE PROP 0.05% NASAL SPRAY 16 GM (FLONASE) NARES SCH ×2 (09:00→21:00)
[2019-04-15] MEDS ORDERED: PANTOPRAZOLE 40MG TAB (PROTONIX) PO SCH (09:00)
[2019-04-15] MEDS: PANTOPRAZOLE 40MG TAB (PROTONIX) PO SCH (09:00)
[2019-04-15] MEDS: VITAMIN D 1,000 INTERNATIONAL UNITS TABLET PO SCH (09:03)
[2019-04-15] MEDS: OMEGA-3 1000MG CAPSULE PO SCH (09:03)
--- NOTE | 2019-04-15 10:09 | IPNPDOC ---
PM&R Progress Note DATE OF SERVICE: Apr 15, 2019 [employer] Progress Note Subjective: Patient seen in her room concerned about abdominal bruising, states she did not recall bumping into anything. REVIEW OF SYSTEMS: The following is a completed review of systems and has been reviewed. Review of systems otherwise unremarkable. PAIN: Patient self reports left buttock pain EYES: Negative for recent vision changes EARS, NOSE, & THROAT: reports mild dysphagia with solids, no throat pain CARDIOVASCULAR: denies chest pain or palpitations PULMONARY: Negative. chronic shortness of breath on exertion GASTROINTESTINAL: +ileostomy GENITOURINARY: Negative for dysuria MUSCULOSKELETAL: left leg weakness and foot drop NEUROLOGICAL:no tremor, +peripheral neuropathy HEMATOLOGICAL:+multiple myeloma and anemia SKIN: no rashes, scattered ecchymosis, eft leg and bilateral truncal ecchymosis PSYCHIATRIC: Unremarkable All other review of systems found to be negative. PHYSICAL EXAMINATION: VITAL SIGNS: Please see below. GENERAL: Pleasant and cooperative. No acute distress. HEENT: PERRL. Extraocular movements intact. Clear conjunctiva CARDIOVASCULAR: Regular rate and rhythm. No murmurs, rubs, or gallops LUNGS: Clear to auscultation bilaterally. No wheezes. No rhonchi ABDOMEN: Soft, nontender, nondistended. Positive bowel sounds. Normal active bowel sounds, +ileostomy NEUROLOGICAL: Alert and oriented times three. Cranial nerves II through XII grossly intact. Sensation grossly intact in all 4 limbs except mildly diminished bilateral feet EXTREMITIES: 5\5 strength bilateral upper extremities. 5\5 strength right lower extremity. 4/5 left hip flexion and knee extension (pain limited), 5-/5 ankle DF and EHL, 5/5 ankle PF SKIN: left buttock with swelling and ecchymosis, medial left thigh with ecchymosis, bilateral truncal ecchymosis ASSESSMENT:73-year-old F with past medical history of who presents status post left gluteal hematoma with inability to walk PLAN: 1. Rehab: PT, OT, and KAIAWHINA for self-reported dysphagia, goal is to strengthen left leg especially ankle dorsiflexors, improve dynamic balance and work on safety performing ADLs -ambulating well in PT with RW 2. Neuro: left buttock hematoma causing left ankle foot drop likely due to irritation/compression of the sciatic nerve, consider bracing and will refer to outpatient neuro for possible NCS/EMG- clinically improving -avoid deliriogenic meds 3. Cardiac/Vascular: patient with SVC thrombus, was on Lovenox and Coumadin at home, now just on Coumadin, will consult medicine to follow and manage INR -will need outpatient f/u with Dr. Thomas 4. 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 Heme/Onc: will monitor patient's Hgb/Hct in setting of buttock hematoma, s/p multiple blood transfusions on inpatient stay, due for chemotherapy Friday, will coordinate with Dr. Granger -ecchymosis likely dependent from buttock hematoma and patient with borderline low-normal platelet count on Coumadin more susceptible to bruising hgb stable, will monitor 6. GI: Protonix for ppx and, ileostomy care per patient for pmh Crohn's, patient declining sucralfate 7. : monitor PVRs, patient reports oliguria 8. Renal: ESRD on HD, HD , Dr. Mckenzie consulted, recs appreciated 9. DNR 10. Dispo: 04/18/19 to home, progressing quickly towards goals Allergies Coded Allergies: vancomycin (Verified Allergy, Intermediate, RASH/ITCHING, 03/26/19) Vital Signs Vital Signs Date Time Temp Pulse Resp B/P (MAP) Pulse Ox O2 Delivery O2 Flow Rate FiO2 04/15/19 06:00 97.8 60 18 123/84 (97) 97 Laboratory Data Labs 24H Laboratory Tests 2 04/15/19 05:59: Prothrombin Time 19.8H, Prothromb Time International Ratio 1.65 Current Medications Current Medications Current Medications Acetaminophen (Tylenol Tab) 650 mg Q4HP PRN PO MILD PAIN (PS 1-4) Last administered on 04/14/19at 20:24; Start 04/12/19 at 17:30 Albuterol/ Ipratropium (Duoneb (Ipr 0.5mg/Alb 2.5mg)) 3 ml RTID NEB Last administered on 04/13/19at 13:45; Start 04/13/19 at 14:00; Stop 04/13/19 at 18:46; Status DC Fish Oil ([place]-3 (1000mg)) 1 cap DAILY PO Last administered on 04/15/19at 09:03; Start 04/13/19 at 09:00 Fluticasone Propionate (Flonase 0.05% Nasal [place]) 1 spray BID NARES Last administered on 04/14/19at 20:12; Start 04/13/19 at 09:00 Ipratropium [place] (Atrovent Hfa) 2 puff BID INH Last administered on 04/14/19at 20:13; Start 04/13/19 at 21:00 Levothyroxine Sodium (Synthroid) 50 mcg DAILY@06 PO Last administered on 04/15/19at 06:22; Start 04/13/19 at 06:00 Miscellaneous (Unresolved Patient Own Med Order) SEE LABEL COMMENTS DAILY XX ; Start 04/12/19 at 09:00; Stop 04/14/19 at 10:07; Status DC Miscellaneous (Unresolved Patient Own Med Order) SEE LABEL COMMENTS DAILY XX ; Start 04/12/19 at 09:00; Stop 04/14/19 at 10:07; Status DC Oxycodone HCl (Roxicodone, Oxyir) 5 mg Q4HP PRN PO PAIN; Start 04/12/19 at 17:30 Pantoprazole Sodium (Protonix) 40 mg DAILY PO Last administered on 04/14/19at 08:57; Start 04/13/19 at 09:00 Pantoprazole Sodium (Protonix) 40 mg DAILY PO ; Start 04/15/19 at 09:00; Stop 04/15/19 at 09:00; Status DC Patient Own Medication (Patient'S Own Med) restasis/ cyclosporine 0.05% OU BID BID OU ; Start 04/12/19 at 21:00; Stop 04/13/19 at 15:06; Status DC Sevelamer Carbonate (Renvela) 800 mg WM PO Last administered on 04/14/19at 18:21; Start 04/13/19 at 08:00 Sucralfate (Carafate) 1 gm WM PO Last administered on 04/14/19at 18:21; Start 04/14/19 at 12:30 Vitamin D (Vitamin D) 2,000 units DAILY PO Last administered on 04/15/19at 09:03; Start 04/13/19 at 09:00 Warfarin Sodium (Coumadin) 5 mg SuTuTh@1700 PO ; Start 04/13/19 at 17:00; Status Future hold Warfarin Sodium (Coumadin) 7.5 mg MoWeFrSa@1700 PO ; Start 04/14/19 at 17:00; Status Future hold MICKI LIEBERMAN MD Apr 15, 2019 10:09
[2019-04-15 14:00] VITALS: BP 120/58
--- NOTE | 2019-04-15 16:45 | IPNPDOC ---
Subjective Date Seen The patient was seen on 04/15/19. Subjective Chief Complaint/HPI 73-year-old female, past medical history significant for ESRD on hemodialysis, SVC, trunk abuse, diagnosed November 2018 on anticoagulation therapy, Crohns disease with ileostomy, multiple myeloma, presenting to the hospital on account of left buttock pain and found to have left buttock. hematoma. Due to significant pain and difficulty with ambulation she was discharged to inpatient rehabilitation unit for closer monitoring, mobilization and strengthening. Events since last encounter Denies pain or discomfort. Reports generalized worsening bruising to right trunk. Denies contusion Objective Physical Examination General Exam: Positive: Alert, Cooperative, No Acute Distress Eye Exam: Positive: PERRLA, Conjunctiva & lids normal, EOMI ENT Exam: Positive: Atraumatic, Mucous membr. moist/pink Neck Exam: Positive: Supple Chest Exam: Positive: Clear to auscultation, Normal air movement Heart Exam: Positive: Rate Normal, Regular Rhythm, Normal S1, Normal S2 Abdomen Exam: Positive: Normal bowel sounds Extremity Exam: Positive: Normal pulses Skin Exam: Positive: Nl turgor and temperature, Other skin issue (the prescription ecchymosis to right trunk) Neuro Exam: Positive: Normal Gait, Normal Speech, Strength at 5/5 X4 ext Psych Exam: Positive: Mental status NL Assessment /Plan Assessment Left buttock hematoma -Likely due to supratherapeutic INR SVC thrombus -Continue Coumadin with target range of 2-3 ESRD -On hemodialysis Friday, Friday, Friday -Nephrology on board, managing, Multiple myeloma. -Followed by hematology oncology, currently on chemotherapy. DVT prophylaxis -Fully anticoagulated Plan/VTE VTE Prophylaxis Ordered?: Yes VS, I&O, 24H, [facility] Vital Signs/I&O Vital Signs Date Time Temp Pulse Resp B/P (MAP) Pulse Ox O2 Delivery O2 Flow Rate FiO2 04/15/19 14:00 97.4 74 18 120/58 (78) 97 I&O- Last 24 Hours up to 6 AM 04/15/19 05:59 Intake Total 1500 ml Output Total 1000 ml Balance 500 ml Laboratory Data 24H LABS Laboratory Tests 2 04/15/19 05:59: Prothrombin Time 19.8H, Prothromb Time International Ratio 1.65 FREDY LOCKWOODP Apr 15, 2019 16:45
[2019-04-15 20:00] VITALS: BP 138/78
[2019-04-15] MEDS: GASTROGRAFIN SOLUTION 30ML PO SCH ×2 (21:07→21:38)
[2019-04-15] MEDS: ACETAMINOPHEN TAB 650MG DOSE (2X325MG) PO PRN (22:43)
--- NOTE | 2019-04-15 23:19 | REPVR ---
EXAM: CT Abdomen and Pelvis Without Contrast EXAM DATE/TIME: 04/15/2019 10:33 PM CLINICAL HISTORY: 73 years old, female; Signs and symptoms; Other: Ileostomy issues; Prior surgery; Surgery date: 6+ months; Additional info: No output from ileostomy, R/O obstruction TECHNIQUE: Imaging protocol: Axial computed tomography images of the abdomen and pelvis without contrast. Coronal and sagittal reformatted images were created and reviewed. Radiation optimization: All CT scans at this facility use at least one of these dose optimization techniques: automated exposure control; mA and/or kV adjustment per patient size (includes targeted exams where dose is matched to clinical indication); or iterative reconstruction. COMPARISON: No relevant prior studies available. FINDINGS: Lungs: Slight bibasilar interstitial prominence. Pleural space: Trace bilateral pleural effusions. ABDOMEN: Liver: Normal. No mass. Gallbladder and bile ducts: Normal. No calcified stones. No ductal dilation. Pancreas: Normal. No ductal dilation. Spleen: Normal. No splenomegaly. Adrenals: Normal. No mass. Kidneys and ureters: Bilateral renal atrophy. There is a left renal cyst measuring up to 2.1 cm. Stomach and bowel: Scattered surgical clips and colonic gas consistent with colectomy. Borderline to mild distention of small bowel segments which extend to the cutaneous opening of the ileostomy site in the anterior right pelvis. There is some telescoping of the distal ileum into an ostomy hernia. The distal small bowel segments demonstrates stool like material. Appendix: The appendix is absent. PELVIS: Bladder: Unremarkable as visualized. Reproductive: Status post hysterectomy. ABDOMEN and PELVIS: Intraperitoneal space: Trace fluid about the abdomen and pelvis. Bones/joints: Slight compression of T12-L2 with prior vertebroplasty. Soft tissues: Unremarkable. Vasculature: There is mild calcification of the abdominal aorta with extension into the iliac arteries. Lymph nodes: Normal. No enlarged lymph nodes. IMPRESSION: 1. Status post colectomy with right anterior pelvic ileostomy. There is a mild ostomy hernia with some extension of distal small bowel into the subcutaneous tissues. 2. Borderline to mild small bowel distention to the cutaneous ostomy opening with some stool like material within the lumen of the preceding small bowel. 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 3. Trace bilateral pleural effusions and trace peritoneal ascites. 4. Bilateral renal atrophy. 5. Status post hysterectomy. Electronically signed by: Michael Garcia On 04/15/2019 23:19:42 PM
[2019-04-15] MEDS ORDERED: NS 1,000 ML IV SCH (23:20)
[2019-04-15] MEDS ORDERED: ONDANSETRON 4MG/2ML VIAL (J2405) IV PRN (23:30)
--- NOTE | 2019-04-16 00:13 | IPNPDOC ---
Date Seen 66 F female, history of colectomy and ostomy, admitted for hematoma in buttock. Nurse called and states patient has abdominal pain and no output from her ostomy bag I saw her and examined her personally she had stat abdominal CT which showed possible bowel obstruction. I discussed the case with Dr Kuo who is telephone information clerk for surgery. Dr Kuo thought it is mybe ileus recommended NPO, NG tube sunction, pain control and gentle hydrate her; Dr Kuo will consult her AM. VS, I&O, 24H, Fishbone Vital Signs/I&O Vital Signs Date Time Temp Pulse Resp B/P (MAP) Pulse Ox O2 Delivery O2 Flow Rate FiO2 04/15/19 14:00 97.4 74 18 120/58 (78) 97 I&O- Last 24 Hours up to 6 AM 04/16/19 06:00 Intake Total 920 ml Balance 920 ml Laboratory Data 24H LABS Laboratory Tests 2 04/15/19 05:59: Prothrombin Time 19.8H, Prothromb Time International Ratio 1.65 LEXII PEREZ MD Apr 16, 2019 00:13
[2019-04-16] MEDS: HYDROMORPHONE HCL 0.5 MG/ 0.5 ML SYRINGE (J1170 PER 1) IV PRN ×2 (02:08→07:43)
[2019-04-16 05:00] VITALS: BP 122/58
[2019-04-16] MEDS: LEVOTHYROXINE 50MCG TABLET (0.05MG) PO SCH (06:00)
[2019-04-16 06:20] LABS: INR 1.16
[2019-04-16] MEDS: (RENVELA) SEVELAMER **CARBONate** 800 MG TAB PO SCH ×2 (08:00→10:49)
[2019-04-16] MEDS: OMEGA-3 1000MG CAPSULE PO SCH (09:00)
[2019-04-16] MEDS: IPRATROPIUM HFA INHALER 12.9 GRAMS (ATROVENT HFA) INH SCH (09:00)
[2019-04-16] MEDS: PANTOPRAZOLE 40MG TAB (PROTONIX) PO SCH (09:00)
[2019-04-16] MEDS: VITAMIN D 1,000 INTERNATIONAL UNITS TABLET PO SCH (09:00)
[2019-04-16] MEDS: FLUTICASONE PROP 0.05% NASAL SPRAY 16 GM (FLONASE) NARES SCH (09:00)
[2019-04-16 10:30] VITALS: BP 128/69
[2019-04-16] MEDS ORDERED: HEPARIN 1,000 UNITS/ML 10ML VIAL (FOR RADIOLOGY& DIALYSIS ONLY) XX ONE (11:15)
[2019-04-16 11:31] LABS: HEMATOCRIT 31.1 % (36.0-47.0); HEMOGLOBIN 9.9 g/dl (12.0-15.5); MEAN CORPUSCULAR HEMOGLOBIN 33.9 pg (27.0-33.0); MEAN CORPUSCULAR HGB CONC 31.8 g/dl (32.0-36.5); MEAN CORPUSCULAR VOLUME 106.5 fl (80.0-96.0); PLATELET COUNT, AUTOMATED 153 10^3/uL (150-450); RED BLOOD COUNT 2.92 10^6/uL (4.00-5.40); WHITE BLOOD COUNT 6.7 10^3/uL (4.0-10.0)
[2019-04-16 11:51] LABS: ALBUMIN 2.4 GM/DL (3.2-5.2); CALCIUM LEVEL 7.5 MG/DL (8.8-10.2); CREATININE FOR GFR 3.66 MG/DL (0.55-1.30); PHOSPHORUS LEVEL 3.3 MG/DL (2.5-4.9); POTASSIUM SERUM 4.3 MEQ/L (3.5-5.1)
[2019-04-16] MEDS ORDERED: ENOXAPARIN 40 MG/0.4 ML SYRINGE (J1650) SC SCH (13:00)
--- NOTE | 2019-04-16 13:50 | IPN ---
DATE OF VISIT: 04/16/2019 Ms. Escobedo is seen this morning on her bedside. She developed abdominal distention yesterday and no output from her colostomy. She was seen by surgery and felt to have small bowel obstruction. She currently has a nasogastric tube in place which is hooked to suction. She feels that her abdominal bloating is improving and she already has some output from her colostomy. She denies any dyspnea or chest pain. She is receiving IV fluid at 50 mL per hour. On physical examination, temperature 97.8 degrees Fahrenheit, heart rate 78 per minute and respiratory rate 18 per minute. Blood pressure 128/69 mmHg and oxygen saturation 94% on room air. Head is atraumatic. Neck is supple and without jugular venous distention (JVD) or thyroid enlargement. Heart sounds regular and lungs clear to auscultation. Abdomen is soft on the left side. She has some tenderness around her colostomy along with some fullness. She probably has some dilated bowel loops. Minimal output in the colostomy bag noted. Extremities have no cyanosis or clubbing. Neurologically she is at her baseline mentation. On review of labs, WBC count is 6.7, hemoglobin 9.9 and hematocrit 31.1. Platelets 153. Sodium 142, potassium 4.3, CO2 26, BUN 45 and creatinine 3.66. PROBLEMS: 1. End-stage renal disease. The patient is regularly dialyzed on Friday, Friday and Friday schedule. She can be dialyzed this afternoon or she can also wait until tomorrow due to her ongoing GI problems. We will see how she feels about dialysis. There is no emergent need for dialysis today and she can wait without any problem until tomorrow. 2. Small bowel obstruction. The patient currently has a nasogastric tube in place which is hooked to suction. She is n.p.o. and receiving IV fluid 50 mL per hour which is appropriate. 3. Anemia. Her anemia is stable and we will continue to monitor without any intervention. 4. Left buttock hematoma and SVC thrombus. The patient has been anticoagulated and her hematoma is improving. She continues with rehab.
[2019-04-16 14:00] VITALS: BP 125/59
[2019-04-16] MEDS ORDERED: ENOXAPARIN 60 MG/0.6 ML SYR (J1650) SC SCH (14:00)
[2019-04-18] MEDS ORDERED: NINLARO PO ONE (20:00)
--- NOTE | 2019-04-27 08:38 | PMRDS ---
DATE OF ADMISSION: 04/12/2019 DATE OF DISCHARGE: 04/16/2019 CHIEF COMPLAINT/DISCHARGE DIAGNOSIS: Left buttock hematoma with foot drop. HISTORY OF PRESENT ILLNESS: 73-year-old female with a past medical history of end-stage renal disease on dialysis, Coumadin for SVC thormbus, Crohn's with ileostomy and multiple myeloma who presented to [facility] on 04/09/2019 complaining of left buttock pain and difficulty ambulating. Ultrasound revealed "in the left buttocks region area of pain, 7.5 x 4.0 cm fluid collection identified. No blood flow within this collection. Findings could represent an abscess versus organized hematoma". Imaging was negative for fracture. She was found to be anemic and required multiple blood transfusions. Vascular surgery was consulted who recommended conservative management. She had high volume output from her ostomy requiring IVS. She was evaluated by therapy and found to be well below her prior level function only to ambulate 5 feet and needing considerable assistance with dressing due to fatigue and buttock pain. She was deemed medically appropriate for discharge to ARU on 04/12/2019 with goals to improve her endurance and returns being able to comfortably ambulate household distances on a modified independent level. PAST MEDICAL HISTORY: As per history of present illness. HOSPITAL COURSE: The patient was admitted and enrolled in a comprehensive physical therapy (PT), occupational therapy (OT), speech language pathology program. She received 24-hour nursing supervision and weekly team meetings were held to discuss her progress. The patient has also reported dysphagia when it came to eating solids. She was evaluated by speech language pathology and found to have no deficits. Her left buttock pain gradually improved and she was found to have irritation or compression of the sciatic nerve resulting in partial foot drop on the left side. She was maintained on Coumadin for her SVC thrombus and her chronic exertional dyspnea was treated with breathing treatments after a period of time patient declined. On 04/16/2019 the patient reported no output from her ostomy and was found to have abdominal pain and distension and she was transferred off the unit for possible surgical intervention. Thank you for this referral.
== END 2019-04-16 15:10 | disposition short-term general hospital (02) | DRG 564 ==
LOC: M PM&R 17:20
PROVIDERS: ADMIT Physical Medicine & Rehabilitation; ATTEND Physical Medicine & Rehabilitation
PROC: 5A1D70Z Performance of Urinary Filtration, Intermittent, Less than 6 Hours Per Day (ICD-10-PCS; principal; 2019-04-14)
DX: M21.372 Foot drop, left foot (principal); N18.6 End stage renal disease; C90.00 Multiple myeloma not having achieved remission; K50.90 Crohn's disease, unspecified, without complications; Z94.84 Stem cells transplant status; D68.32 Hemorrhagic disorder due to extrinsic circulating anticoagulants; K56.7 Ileus, unspecified; K94.09 Other complications of colostomy; R53.83 Other fatigue; M79.81 Nontraumatic hematoma of soft tissue; E03.9 Hypothyroidism, unspecified; R13.10 Dysphagia, unspecified; G62.9 Polyneuropathy, unspecified; R14.0 Abdominal distension (gaseous); R06.09 Other forms of dyspnea; Z66 Do not resuscitate; I95.89 Other hypotension; R26.2 Difficulty in walking, not elsewhere classified; Z99.2 Dependence on renal dialysis; Z79.01 Long term (current) use of anticoagulants; Z86.718 Personal history of other venous thrombosis and embolism; Z85.820 Personal history of malignant melanoma of skin; Z90.49 Acquired absence of other specified parts of digestive tract; Z79.899 Other long term (current) drug therapy; Z88.1 Allergy status to other antibiotic agents

== ENCOUNTER 2019-04-16 12:38 | Inpatient (IN) | payer MEDICARE, OTHER ==
--- NOTE | 2019-04-16 14:18 | HPEPDOC ---
[facility] Medical History & Physical Date of Admission Apr 16, 2019 Date of Service: Apr 16, 2019 Primary Care Physician: FEROZ FUNES MD [facility] History and Physical CHIEF COMPLAINT: nausea, vomiting, abdominal pain and distention x 1 day. HISTORY OF PRESENTING ILLNESS: 73-year-old DNR female with a past medical history of end-stage renal disease, on hemodialysis on a Friday, Friday, Friday schedule, multiple myeloma, status post stem cell transplant with relapse, currently on chemotherapy, history of Crohn's disease with ostomy, pancreatitis, suspected CVA in 03/2019 with left sided weakness and expressive aphasia which resolved, melanoma and basal cell carcinoma follows with Dr. 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 While at ARU, pt ate an apple at 6am yesterday, "didn't come through, until 9:30 pm " last night, with increasing crampy epigastric and right lower quadrant abdominal pain and distention, nausea and vomiting clear emesis, requiring NG tube placement. Pain was 10/10 and was not relieved by changing positions, but slightly improved by pain meds and NG tube suctioning. 04/15/19 CT abd/pelvis showed. Status post colectomy with right anterior pelvic ileostomy. There is a mild ostomy hernia with some extension of distal small bowel into the subcutaneous tissues. Borderline to mild small bowel distention to the cutaneous ostomy opening with some stool like material within the lumen of the preceding small bowel. 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 Trace bilateral pleural effusions and trace peritoneal ascites. Bilateral renal atrophy. Status post hysterectomy. Pt has not passed flatus. Surgery was consulted,Dr. Chamorro, who recommended conservative management for now. Pt denies any fever, chills, or recurrent vomiting since last night. Hospitalist was asked to admit. Nephrology consulted for fluid management. 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 History of recurrent clotting of arteriovenous (AV) graft and infection, status post removal of graft. right pneumothorax PAST SURGICAL HISTORY: Ileostomy, appendectomy, stem cell transplant, melanoma and basal cell carcinoma resection PermaCath placement, fistula/graft. CURRENT MEDICATIONS: PLS SEE BELOW SOCIAL HISTORY: DNR, DNI Denies current tobacco use, quit in 1980, previously smoked 1ppd , no alcohol or illicit drug use. 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 REVIEW OF SYSTEMS: Constitutional: She feels weak and tired. Eyes: She denies visual changes or blurring. ENT: She denies tinnitus or odynophagia. Cardiac: She denies chest pain or palpitations. Respiratory: She denies cough or hemoptysis. Gastrointestinal: She has an ostomy. crampy epigastric and right lower quadrant abdominal pain and distention, nausea and vomiting clear emesis, requiring NG tube placement. Pain was 10/10 and was not relieved by changing positions, but slightly improved by pain meds and NG tube suctioning. Genitourinary: Negative for dysuria or hematuria, though so she does have a history of urinary tract infections (UTIs).multiple myeloma esrd on hd mwf Musculoskeletal: Significant for left-sided weakness and history of osteoarthritis. She denies leg edema. Neurologic: Significant for complaint of headache, history of suspected cva with expressive aphasia and left-sided weakness 03/2019. There is no history of seizure. Endocrine: Positive for secondary hyperparathyroidism and hypothyroidism. Hematologic: Positive for anticoagulation and anemia, and history of blood, left buttock hematoma transfusions.svc thrombus Skin: Negative for any new rashes or ulcers. Remainder of review of systems is negative, as per history of the present illness. PHYSICAL EXAMINATION: Vital signs:pls see below General: NG tube with dark bilious drainage. She is awake and alert x 3 able to provide the history. Anicteric sclerae. Extraocular muscles are intact. Tongue is moist. no use of respiratory muscles no jaundice. Neck is supple. Jugular veins are not elevated. Cardiac: S1, S2, regular rate and rhythm. No edema in the extremities. Palpable radial pulse. Lungs are clear to auscultation bilaterally. No crackles, rales or wheeze. Abdomen is soft slightly distended in the right lower quadrant with some tenderness along the epigastric and RLQ area. There is a functional ostomy present. Skin is warm and dry. Normal temperature and turgor.well healed left upper arm AV graft scar left buttock with swelling and ecchymosis, medial left thigh with ecchymosis Neurologic:AAOx3 answering questions appropriately, speech is fluent, face symmetric, no pronator drift, tongue midline, 5/5/ motor b/l UE> no sensory disturbance 4/5 left hip flexion and knee extension (pain limited), 4/5 ankle DF and EHL, 5/5 ankle PF LABORATORY DATA, IMAGING STUDIES, MICRIOBIOLOGY: reviewed, pls see below ASSESSMENT AND PLAN: 73-year-old DNR female with a past medical history of end-stage renal disease, on hemodialysis on a Friday, Friday, Friday schedule, multiple myeloma, status post stem cell transplant with relapse, currently on chemot herapy, history of Crohn's disease with ostomy, pancreatitis, suspected CVA in 03/2019 with left sided weakness and expressive aphasia which resolved, melanoma and basal cell carcinoma follows with Dr. 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 While at ARU, pt ate an apple at 6am yesterday, "didn't come through, until 9:30 pm " last night, with increasing crampy epigastric and right lower quadrant abdominal pain and distention, nausea and vomiting clear emesis, requiring NG tube placement. Pain was 10/10 and was not relieved by changing positions, but slightly improved by pain meds and NG tube suctioning. 04/15/19 CT abd/pelvis showed. Status post colectomy with right anterior pelvic ileostomy. There is a mild ostomy hernia with some extension of distal small bowel into the subcutaneous tissues. Borderline to mild small bowel distention to the cutaneous ostomy opening with some stool like material within the lumen of the preceding small bowel. 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 Trace bilateral pleural effusions and trace peritoneal ascites. Bilateral renal atrophy. Status post hysterectomy. Pt has not passed flatus. Surgery was consulted,Dr. Chamorro, who recommended conservative management for now. Pt denies any fever, chills, or recurrent vomiting since last night. Hospitalist was asked to admit. Nephrology consulted for fluid management. Small Bowel Obstruction -pt was discharged from the acute rehab unit, and admitted to PCU with telemetry -she has been kept npo, with nasogastric tube to low intermittent suction, ivfluids per nephrology to be kept at 50-60ml/hr due to risk of volume overload -General Surgery, Dr. Chamorro, has recommended conservative management for now. 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 Jessy Saab edoncology - on hemodialysis on Friday, Friday, Friday managed by nephrology -renally dosed medications Thrombus at the junction of the superior vena cava and subclavian vein. Prior CT angiography January 2019 noted. --held coumadin in case of surgical intervention for SBO - kept on renally dosed lovenox for her SVC thrombus multiple myeloma status post transplant with current relapse, on chemotherapy, -follows with Dr. Jessy Saab, medical oncology as outpt Crohn's disease,status post ostomy, -fluid management per nephrology recent pancreatitis 01/2019 -referred by Dr. Licona to [facility] for ERCP, but needed interruption of chronic anticoagulation with warfarin prior to proceeding. -pt was found to have subtherapeutic INR, and was placed on bridge therapy lovenox and coumadin by Vascular surgery Dr. adams when the patient was admitted to ARU for a left Buttock Hematoma. history of skin melanoma, -followed by Dr. Saab secondary hyperparathyroidism of renal origin -managed by Nephrology anemia related to chronic renal failure and myeloma, -no acute indication for RBC transfusion hypothyroidism. 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 -well healed on exam, no signs of infection DVT prophylaxis: on lovenox renally dosed for SVC thrombus Diet: NPO due to SBO Code status: DNR Home Medications Scheduled Cholecalciferol (Vitamin D3) (Vitamin D3) 2,000 Unit Tab, 2,000 UNIT PO DAILY Cyclosporine (Restasis) 0.05 % Emu, 1 DROP OU BID Dexamethasone (Dexamethasone) 4 Mg Tab, 12 MG PO ASDIRECTED TAKES DAYS 1,8,15,22 - LAST DOSE WAS DAY 1 OF CYCLE Diphenhydramine HCl (Benadryl) 25 Mg Cap, 25 MG PO 3XW TAKES PRIOR TO DIALYSIS M,W,F Ixazomib Citrate (Ninlaro) 3 Mg Cap, 3 MG PO ASDIRECTED TAKES ON DAY 1,8,15 OF 22 DAY CYCLE. LAST DOSE WAS DAY 1 OF CYCLE Lactose-Reduced Food (Ensure Plus) 237 Ml Liquid, 1 LIQ PO QHS Levothyroxine Sodium (Levoxyl) 50 Mcg Tablet, 50 MCG PO DAILY [place]-3 Fatty Acids/Fish Oil (Fish Oil 1,000 mg Capsule) 1 Each Capsule, 1,000 MG PO DAILY Sevelamer Carbonate (Renvela) 800 Mg Tab, 800 MG PO WM Warfarin Sodium (Warfarin Sodium) 5 Mg Tablet, 5 MG PO 3XW QPM: SUN, TUES, THURS Warfarin Sodium (Warfarin Sodium) 7.5 Mg Tablet, 7.5 MG PO 4XWK QPM: MON, WED, FRI, SAT Scheduled PRN Oxycodone HCl (Oxycodone HCl) 5 Mg Tablet, 5 MG PO Q4HP PRN for PAIN Allergies Coded Allergies: vancomycin (Verified Allergy, Intermediate, RASH/ITCHING, 03/26/19) A-FIB/CHADSVASC A-FIB History Current/History of A-Fib/PAF?: No Current PO Anticoag Therapy: AMERICA Ash MD Apr 16, 2019 13:35
[2019-04-16] MEDS ORDERED: HYDROMORPHONE HCL 0.5 MG/ 0.5 ML SYRINGE (J1170 PER 1) IV PRN (14:30)
[2019-04-16 15:14] VITALS: BP 141/63
[2019-04-16 15:51] LABS: BASO % 0.1 % (0.0-1.0); EOS % 0.6 % (0.0-3.0); HEMATOCRIT 33.2 % (36.0-47.0); HEMOGLOBIN 10.8 g/dl (12.0-15.5); LYMPH # 0.5 10^3/uL (1.5-4.5); LYMPH % 7.4 % (24.0-44.0); MEAN CORPUSCULAR HEMOGLOBIN 34.5 pg (27.0-33.0); MEAN CORPUSCULAR HGB CONC 32.5 g/dl (32.0-36.5); MEAN CORPUSCULAR VOLUME 106.1 fl (80.0-96.0); MONO # 0.4 10^3/uL (0.0-0.8); NEUTROPHILS % 85.5 % (36.0-66.0); PLATELET COUNT, AUTOMATED 167 10^3/uL (150-450); RED BLOOD COUNT 3.13 10^6/uL (4.00-5.40)
[2019-04-16 15:52] LABS: IONIZED CALCIUM 4.1 MG/DL (4.5-5.3)
[2019-04-16] MEDS: D5W/0.45% SODIUM CHLORIDE 1,000 ML IV SCH (15:52)
[2019-04-16 16:01] LABS: INR 1.29; PROTHROMBIN TIME 16.3 SECONDS (12.1-14.4)
[2019-04-16 16:02] LABS: PARTIAL THROMBOPLASTIN TIME 33.5 SECONDS (25.4-37.6)
[2019-04-16 16:11] LABS: ERYTHROCYTE SEDIMENTATION RATE 51 mm/hr (0-30)
--- NOTE | 2019-04-16 16:14 | CR ---
DATE OF CONSULTATION: 04/16/2019 BRIEF HISTORY OF PRESENT ILLNESS: The patient is a 73-year-old female with a previous total colectomy for Crohn's disease in the remote past and essentially has been seeing Dr. Licona for her Crohn's disease, but has not required any medications per se, has not had any Crohn's exacerbation for a very long time. And essentially is now presenting with a hospitalization in the rehab unit that she has just about completed, and this was her last day of the rehabilitation segment, but started not having any significant ostomy output for over 24 hours and then developed some crampy abdominal pain and distension. When she developed this distension and pain, she developed some nausea, vomiting last night, had a nasogastric (NG) tube placed and a CT scan was performed. The CT scan revealed evidence of dilated small bowel throughout. There was a question of a stenosis at the ostomy "skin level" but otherwise no other significant abnormality was appreciated, and the bowel was distended throughout suggesting much more of an ileus pattern than a true obstruction. But in any case, the patient presents for continued treatment, and I was asked for my surgical recommendations. Her past medical history is significant for a history of renal failure with dialysis, history of multiple myeloma, history of Crohn's disease, pancreatitis, CVA, melanoma, basal cell cancer, chronic anticoagulation for an occluded superior vena cava, foot drop, status post total colectomy with ileostomy, history of a parastomal hernia, history of hyperparathyroidism, history of anemia, history of hypothyroidism, history of recurrent arteriovenous (AV) fistula of clots, thrombosis and infections, history of stem-cell implant. PHYSICAL EXAM: Reveals a frail 73-year-old who looks stated age. HEENT is unremarkable. Lungs are clear anteriorly. Heart is regular with multiple irregular beats. Abdomen is softly distended throughout but with some mild tenderness in the periostomy area, but this does easily reduce, otherwise really no guarding, no rebound, no peritoneal signs are appreciated. I did probe the ostomy, and I was able to get my fifth finger down that without significant difficulty. There was some minimal spasm but obviously no true obstruction. IMPRESSION AND PLAN: The patient has evidence of possible ileus/small bowel obstruction, partial obstruction given that her ostomy is still putting out. At this point, I do feel that given her high NG tube output, I would recommend that she continue with this overnight. However, tomorrow it may be reasonable to clamp the tube and check residuals every 4 hours depending on her ostomy output. From a parastomal hernia repair, she has had this quite awhile, and it really has been relatively asymptomatic. If she does not resolve her obstructive-looking pattern, this would be the most likely area to pursue and to proceed with operative intervention for. This possibly could be done through a spinal anesthetic instead of general given her high morbidity and comorbidities and medical issues. Otherwise, at this point, I do feel nonoperative treatment is reasonable at this time and will need to see how she does over the weekend. Dr. Marmolejo will be covering me for the weekend.
[2019-04-16 16:23] LABS: CK-MB VALUE MASS 1.3 NG/ML (<3.6); CPK CREATINE PHOSPHOKINASE 157 U/L (26-192); MB/CK RELATIVE INDEX 0.83 (< OR =4); TROPONIN I < 0.02 NG/ML (< 0.10)
[2019-04-16 16:55] LABS: ALBUMIN 2.7 GM/DL (3.2-5.2); C REACTIVE PROTEIN QUANTITATIV 2.48 MG/DL (0.00-0.30); CALCIUM LEVEL 8.2 MG/DL (8.8-10.2); CREATININE FOR GFR 4.19 MG/DL (0.55-1.30); GLOMERULAR FILTRATION RATE 11.1 (>39); MAGNESIUM LEVEL 2.1 MG/DL (1.8-2.4); POTASSIUM SERUM 4.4 MEQ/L (3.5-5.1); TOTAL PROTEIN 5.7 GM/DL (6.4-8.2)
--- NOTE | 2019-04-16 16:58 | REP ---
Acute abdominal series: Three views. History: Small bowel obstruction. Comparison is made with images from CT study April 15, 2019. The patient is status post colectomy. Findings: Upright chest radiograph shows no evidence of infiltrate or free subdiaphragmatic air. A right-sided tunnel catheter is seen terminating in the expected location of the superior vena cava. There are surgical clips in right axilla. There are clips and a vascular stent in the left axillary soft tissues. A nasogastric tube is seen entering the left upper quadrant of the abdomen the lungs are clear. Heart is not enlarged. Supine and erect views of the abdomen demonstrate that the patient is status post vertebroplasty at T12, L1, and L2. There are scattered surgical clips in the upper abdomen and pelvis. The bowel gas pattern is significantly improved and essentially normal. Psoas margins and flank stripes are intact. No free air is seen. Impression: Bowel gas pattern improved. NG tube in the left upper quadrant. Electronically Signed by Dejon Daniel MD 04/19/2019 08:28 A
[2019-04-16 18:51] VITALS: O2SAT 95
[2019-04-16 22:00] VITALS: BP 126/64
[2019-04-17 06:00] VITALS: BP 132/70
[2019-04-17 07:03] LABS: BASO % 0.2 % (0.0-1.0); EOS # 0.1 10^3/uL (0.0-0.50); EOS % 1.2 % (0.0-3.0); HEMATOCRIT 31.9 % (36.0-47.0); HEMOGLOBIN 10.4 g/dl (12.0-15.5); LYMPH # 0.6 10^3/uL (1.5-4.5); LYMPH % 12.1 % (24.0-44.0); MEAN CORPUSCULAR HEMOGLOBIN 34.6 pg (27.0-33.0); MEAN CORPUSCULAR HGB CONC 32.6 g/dl (32.0-36.5); MONO # 0.4 10^3/uL (0.0-0.8); MONO % 7.5 % (0.0-5.0); NEUTROPHILS # 3.9 10^3/uL (1.8-7.7); NEUTROPHILS % 78.2 % (36.0-66.0); PLATELET COUNT, AUTOMATED 165 10^3/uL (150-450); RED BLOOD COUNT 3.01 10^6/uL (4.00-5.40); WHITE BLOOD COUNT 4.9 10^3/uL (4.0-10.0)
[2019-04-17 07:26] LABS: CALCIUM LEVEL 8.5 MG/DL (8.8-10.2); CREATININE FOR GFR 4.75 MG/DL (0.55-1.30); FREE THYROXINE INDEX 3.2 % (1.3-4.8); GLOMERULAR FILTRATION RATE 9.6 (>39); MAGNESIUM LEVEL 2.1 MG/DL (1.8-2.4); POTASSIUM SERUM 4.1 MEQ/L (3.5-5.1); THYROID STIMULATING HORMONE 5.25 uIU/ML (0.358-3.740); THYROXINE (T4) 9.5 UG/DL (4.5-12.0)
[2019-04-17] MEDS: D5W/0.45% SODIUM CHLORIDE 1,000 ML IV SCH (07:43)
[2019-04-17] MEDS ORDERED: LEVOTHYROXINE 100 MCG (0.1MG) VIAL IV SCH (09:00)
--- NOTE | 2019-04-17 09:39 | REP ---
KUB ABDOMEN AND PELVIS: KUB film of abdomen and pelvis is performed. Bowel gas pattern has not significantly changed. Air is seen in two slightly prominent small bowel loops which are only minimally dilated, in the left upper quadrant. Nasogastric tube is seen with the sideport at the level of the left hemidiaphragm. Multiple metallic clips are seen throughout the abdomen and pelvis. There is evidence of kyphoplasty at T12-L2. IMPRESSION: No significant change. Electronically Signed by Justin Ugalde MD 04/17/2019 07:19 P
--- NOTE | 2019-04-17 09:40 | IPNPDOC ---
Date Seen The patient was seen on 04/17/19. Progress Note SUBJECTIVE: c/o sore throat from NG tube. not passing flatus. Some improvement overnight with NG tube. KUB: improved bowel gas pattern. She feels weak and tired. Still c/o crampy epigastric and right lower quadrant abdominal pain 4/10 but slightly improved by pain meds and NG tube to low int ermittent suctioning.denies dysuria or hematuria and distention. denies any nausea and vomiting. OBJECTIVE: PHYSICAL EXAMINATION: Vital signs:pls see below General: NG tube with dark bilious drainage. She is awake and alert x 3 able to provide the history. Anicteric sclerae. Extraocular muscles are intact. Tongue is moist. no use of respiratory muscles no jaundice. Neck is supple. Jugular veins are not elevated. Cardiac: S1, S2, regular rate and rhythm. No edema in the extremities. Palpable radial pulse. Lungs are clear to auscultation bilaterally. No crackles, rales or wheeze. Abdomen is soft slightly distended in the right lower quadrant with some tenderness along the epigastric and RLQ area. There is a functional ostomy present. Skin is warm and dry. Normal temperature and turgor.well healed left upper arm AV graft scar left buttock with swelling and ecchymosis, medial left thigh with ecchymosis Neurologic:AAOx3 answering questions appropriately, speech is fluent, face symmetric, no pronator drift, tongue midline, 5/5/ motor b/l UE> no sensory disturbance 4/5 left hip flexion and knee extension (pain limited), 4/5 ankle DF and EHL, 5/5 ankle PF LABORATORY DATA, IMAGING STUDIES, MICRIOBIOLOGY: reviewed, pls see below ASSESSMENT AND PLAN: 73-year-old DNR female with a past medical history of end-stage renal disease, on hemodialysis on a Friday, Friday, Friday schedule, multiple myeloma, status post stem cell transplant with relapse, currently on chemotherapy, history of Crohn's disease with ostomy, pancreatitis, suspected CVA in 03/2019 with left sided weakness and expressive aphasia which resolved, melanoma and basal cell carcinoma follows with Dr. 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 While at ARU, pt ate an apple at 6am yesterday, "didn't come through, until 9:30 pm " last night, with increasing crampy epigastric and right lower quadrant abdominal pain and distention, nausea and vomiting clear emesis, requiring NG tube placement. Pain was 10/10 and was not relieved by changing positions, but slightly improved by pain meds and NG tube suctioning. 04/15/19 CT abd/pelvis showed. Status post colectomy with right anterior pelvic ileostomy. There is a mild ostomy hernia with some extension of distal small bowel into the subcutaneous tissues. Borderline to mild small mireille l distention to the cutaneous ostomy opening with some stool like material within the lumen of the preceding small bowel. 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 Trace bilateral pleural effusions and trace peritoneal ascites. Bilateral renal atrophy. Status post hysterectomy. Pt has not passed flatus. Surgery was consulted,Dr. Chamorro, who recommended conservative management for now. Pt denies any fever, chills, or recurrent vomiting since last night. Hospitalist was asked to admit. Nephrology consulted for fluid management. Small Bowel Obstruction -pt was discharged from the acute rehab unit, and admitted to PCU with telemetry -she has been kept npo, with nasogastric tube to low intermittent suction, ivfluids per nephrology to be kept at 50-60ml/hr due to risk of volume overload -General Surgery, Dr. Chamorro, has recommended conservative management for now. 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 Jessy Saab medoncology - on hemodialysis on Friday, Friday, Friday managed by nephrology -renally dosed medications Thrombus at the junction of the superior vena cava and subclavian vein. Prior CT angiography January 2019 noted. --held coumadin in case of surgical intervention for SBO - kept on renally dosed lovenox for her SVC thrombus multiple myeloma status post transplant with current relapse, on chemotherapy, -follows with Dr. Jessy Saab, medical oncology as outpt Crohn's disease,status post ostomy, -fluid management per nephrology recent pancreatitis 01/2019 -referred by Dr. Licona to [facility] for ERCP, but needed interruption of chronic anticoagulation with warfarin prior to proceeding. -pt was found to have subtherapeutic INR, and was placed on bridge therapy lovenox and coumadin by Vascular surgery Dr. adams when the patient was admitted to ARU for a left Buttock Hematoma. history of skin melanoma, -followed by Dr. Saab secondary hyperparathyroidism of renal origin -managed by Nephrology anemia related to chronic renal failure and myeloma, -no acute indication for RBC transfusion hypothyroidism. 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 -well healed on exam, no signs of infection sore throat due to ng tube prn chloraseptic spray DVT prophylaxis: on lovenox renally dosed for SVC thrombus Diet: NPO due to SBO Code status: DNR VS, I&O, 24H, Fishbone Vital Signs/I&O Vital Signs Date Time Temp Pulse Resp B/P (MAP) Pulse Ox O2 Delivery O2 Flow Rate FiO2 04/17/19 06:00 98.1 73 20 132/70 (90) 95 04/16/19 18:51 Room Air I&O- Last 24 Hours up to 6 AM 04/17/19 06:00 Intake Total 450 ml Output Total 1100 ml Balance -650 ml Laboratory Data 24H LABS Laboratory Tests 2 04/16/19 15:39: Immature Granulocyte % (Auto) 0.4, White Blood Count 7.0, Red Blood Count 3.13L, Hemoglobin 10.8L, Hematocrit 33.2L, Mean Corpuscular Volume 106.1H, Mean Corpuscular Hemoglobin 34.5H, Mean Corpuscular Hemoglobin Concent 32.5, Red Cell Distribution Width 16.6H, Platelet Count 167, Neutrophils (%) (Auto) 85.5H, Ly mphocytes (%) (Auto) 7.4L, Monocytes (%) (Auto) 6.0H, Eosinophils (%) (Auto) 0.6, Basophils (%) (Auto) 0.1, Neutrophils # (Auto) 6.0, Lymphocytes # (Auto) 0.5L, Monocytes # (Auto) 0.4, Eosinophils # (Auto) 0.0, Basophils # (Auto) 0.0, Nucleated Red Blood Cells % (auto) 0.0, Erythrocyte Sedimentation Rate 51H, Prothrombin Time 16.3H, Prothromb Time International Ratio 1.29, Activated Partial Thromboplast Time 33.5, Anion Gap 5L, Glomerular Filtration Rate 11.1L, Lactic Acid Level 1.1, Blood Urea Nitrogen 49H, Creatinine 4.19H, Sodium Level 140, Potassium Level 4.4, Chloride Level 109H, Carbon Dioxide Level 26, Calcium Level 8.2L, Aspartate Amino Transf (AST/SGOT) 24, Alanine Aminotransferase (ALT/SGPT) 19, Alkaline Phosphatase 63, Total Bilirubin 3.0H, Total Protein 5.7L, Albumin 2.7L, Whole Blood Ionized Calcium 4.1L, Magnesium Level 2.1, Total Creatine Kinase 157, Creatine Kinase MB 1.3, Creatine Kinase MB Relative Index 0.83, Troponin I < 0.02, C-Reactive Protein, Quantitative 2.48H, Albumin/Globulin Ratio 0.90L, Thyroid Stimulating Hormone (TSH) 5.210H 04/17/19 06:15: Immature Granulocyte % (Auto) 0.8, White Blood Count 4.9, Red Blood Count 3.01L, Hemoglobin 10.4L, Hematocrit 31.9L, Mean Corpuscular Volume 106.0H, Mean Corpuscular Hemoglobin 34.6H, Mean Corpuscular Hemoglobin Concent 32.6, Red Cell Distribution Width 16.3H, Platelet Count 165, Neutrophils (%) (Auto) 78.2H, Lymphocytes (%) (Auto) 12.1L, Monocytes (%) (Auto) 7.5H, Eosinophils (%) (Auto) 1.2, Basophils (%) (Auto) 0.2, Neutrophils # (Auto) 3.9, Lymphocytes # (Auto) 0.6L, Monocytes # (Auto) 0.4, Eosinophils # (Auto) 0.1, Basophils # (Auto) 0.0, Nucleated Red Blood Cells % (auto) 0.0, Anion Gap 8, Glomerular Filtration Rate 9.6L, Blood Urea Nitrogen 51H, Creatinine 4.75H, Sodium Level 139, Potassium Level 4.1, Chloride Level 107, Carbon Dioxide Level 24, Calcium Level 8.5L, Magnesium Level 2.1, Thyroid Stimulating Hormone (TSH) 5.250H, Free Thyroxine Index 3.2, Thyroxine (T4) 9.5, Triiodothyronine (T3) Uptake 34 CBC/BMP Laboratory Tests 04/16/19 15:39 Red Blood Count 3.13 L, Mean Corpuscular Volume 106.1 H, Mean Corpuscular Hemoglobin 34.5 H, Mean Corpuscular Hemoglobin Concent 32.5, Red Cell Distribution Width 16.6 H, Neutrophils (%) (Auto) 85.5 H, Lymphocytes (%) (Auto) 7.4 L, Monocytes (%) (Auto) 6.0 H, Eosinophils (%) (Auto) 0.6, Basophils (%) (Auto) 0.1, Neutrophils # (Auto) 6.0, Lymphocytes # (Auto) 0.5 L, Monocytes # (Auto) 0.4, Eosinophils # (Auto) 0.0, Basophils # (Auto) 0.0, Calcium Level 8.2 L, Aspartate Amino Transf (AST/SGOT) 24, Alanine Aminotransferase (ALT/SGPT) 19, Alkaline Phosphatase 63, Total Bilirubin 3.0 H, Total Protein 5.7 L, Albumin 2.7 L 04/17/19 06:15 Red Blood Count 3.01 L, Mean Corpuscular Volume 106.0 H, Mean Corpuscular Hemoglobin 34.6 H, Mean Corpuscular Hemoglobin Concent 32.6, Red Cell Distribution Width 16.3 H, Neutrophils (%) (Auto) 78.2 H, Lymphocytes (%) (Auto) 12.1 L, Monocytes (%) (Auto) 7.5 H, Eosinophils (%) (Auto) 1.2, Basophils (%) (Auto) 0.2, Neutrophils # (Auto) 3.9, Lymphocytes # (Auto) 0.6 L, Monocytes # (Auto) 0.4, Eosinophils # (Auto) 0.1, Basophils # (Auto) 0.0, Calcium Level 8.5 L AMERICA RAMÍREZ MD Apr 17, 2019 07:47
[2019-04-17] MEDS ORDERED: CHLORASEPTIC SPRAY MT PRN (09:45)
[2019-04-17 14:00] VITALS: BP 134/67
[2019-04-17] MEDS: ENOXAPARIN 60 MG/0.6 ML SYR (J1650) SC SCH (15:27)
[2019-04-17 22:00] VITALS: BP 122/59
[2019-04-17 23:02] VITALS: O2SAT 96
[2019-04-18 06:00] VITALS: BP 133/72
[2019-04-18 06:09] LABS: BASO % 0.4 % (0.0-1.0); EOS # 0.1 10^3/uL (0.0-0.50); EOS % 0.9 % (0.0-3.0); HEMATOCRIT 31.3 % (36.0-47.0); HEMOGLOBIN 10.1 g/dl (12.0-15.5); LYMPH # 0.7 10^3/uL (1.5-4.5); LYMPH % 12.8 % (24.0-44.0); MEAN CORPUSCULAR HGB CONC 32.3 g/dl (32.0-36.5); MEAN CORPUSCULAR VOLUME 105.4 fl (80.0-96.0); MONO # 0.5 10^3/uL (0.0-0.8); MONO % 8.9 % (0.0-5.0); NEUTROPHILS % 76.2 % (36.0-66.0); PLATELET COUNT, AUTOMATED 164 10^3/uL (150-450); RED BLOOD COUNT 2.97 10^6/uL (4.00-5.40); WHITE BLOOD COUNT 5.3 10^3/uL (4.0-10.0)
[2019-04-18 06:30] LABS: CALCIUM LEVEL 8.9 MG/DL (8.8-10.2); CREATININE FOR GFR 3.78 MG/DL (0.55-1.30); GLOMERULAR FILTRATION RATE 12.5 (>39); MAGNESIUM LEVEL 2.2 MG/DL (1.8-2.4); POTASSIUM SERUM 4.3 MEQ/L (3.5-5.1)
[2019-04-18] MEDS: D5W/0.45% SODIUM CHLORIDE 1,000 ML IV SCH (07:45)
[2019-04-18] MEDS: LEVOTHYROXINE 50MCG TABLET (0.05MG) PO SCH (08:47)
[2019-04-18] MEDS ORDERED: LEVOTHYROXINE 100 MCG (0.1MG) VIAL IV SCH (09:00)
--- NOTE | 2019-04-18 10:17 | IPNPDOC ---
Date Seen The patient was seen on 04/18/19. Progress Note SUBJECTIVE: s/p dialysis 04/17/19Friday. pt lost her iv site on 04/17/19, and ivfluids were held. Surgery advanced pt to a po diet this morning, and no need for line placement. pt has no c/o nausea, vomiting, but still w slight abd discomfort before she passes flatus, no significant abdominal distention. no fever or chills. OBJECTIVE: PHYSICAL EXAMINATION: Vital signs:pls see below General: NG tube with dark bilious drainage. She is awake and alert x 3 able to provide the history. Anicteric sclerae. Extraocular muscles are intact. Tongue is moist. no use of respiratory muscles no jaundice. Neck is supple. Jugular veins are not elevated. Cardiac: S1, S2, regular rate and rhythm. No edema in the extremities. Palpable radial pulse. Lungs are clear to auscultation bilaterally. No crackles, rales or wheeze. Abdomen is soft slightly distended in the right lower quadrant with some tenderness along the epigastric and RLQ area. There is a functional ostomy present. Skin is warm and dry. Normal temperature and turgor.well healed left upper arm AV graft scar left buttock with swelling and ecchymosis, medial left thigh with ecchymosis Neurologic:AAOx3 answering questions appropriately, speech is fluent, face symmetric, no pronator drift, tongue midline, 5/5/ motor b/l UE> no sensory disturbance 4/5 left hip flexion and knee extension (pain limited), 4/5 ankle DF and EHL, 5/5 ankle PF LABORATORY DATA, IMAGING STUDIES, MICRIOBIOLOGY: reviewed, pls see below ASSESSMENT AND PLAN: 73-year-old DNR female with a past medical history of end-stage renal disease, on hemodialysis on a Friday, Friday, Friday schedule, multiple myeloma, status post stem cell transplant with relapse, currently on chemotherapy, history of Crohn's disease with ostomy, pancreatitis, suspected CVA in 03/2019 with left sided weakness and expressive aphasia which resolved, melanoma and basal cell carcinoma follows with Dr. 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 While at ARU, pt ate an apple at 6am yesterday, "didn't come through, until 9:30 pm " last night, with increasing crampy epigastric and right lower quadrant abdominal pain and distention, nausea and vomiting clear emesis, requiring NG tube placement. Pain was 10/10 and was not relieved by changing positions, but slightly improved by pain meds and NG tube suctioning. 04/15/19 CT abd/pelvis showed. Status post colectomy with right anterior pelvic ileostomy. There is a mild ostomy hernia with some extension of distal small bowel into the subcutaneous tissues. Borderline to mild small bowel distention to the cutaneous ostomy opening with some stool like material within the lumen of the preceding small bowel. 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 Trace bilateral pleural effusions and trace peritoneal ascites. Bilateral renal atrophy. Status post hysterectomy. Pt has not passed flatus. Surgery was consulted,Dr. hCamorro, who recommended conservative management for now. Pt denies any fever, chills, or recurrent vomiting since last night. Hospitalist was asked to admit. Nephrology consulted for fluid management. Small Bowel Obstruction -pt was discharged from the acute rehab unit, and admitted to PCU with telemetry -s/p npo, with nasogastric tube to low intermittent suction, ivfluids per nephrology kept at 50-60ml/hr due to risk of volume overload -General Surgery, Dr. Chamorro, has recommended conservative management for now. -held coumadin, and kept on renally dosed lovenox for her SVC thrombus -pt lost her iv site on 04/17/19, and ivfluids were held. Surgery advanced pt to a po diet this morning, and no need for line placement. pt has no c/o nausea, vomiting, but still w slight abd discomfort before she passes flatus, no significant abdominal distention. no fever or chills. No iv access 04/17/19 -pt lost her iv site on 04/17/19, and ivfluids were held. Surgery advanced pt to a po diet this morning, and no need for line placement. pt has no c/o nausea, vomiting, but still w slight abd discomfort before she passes flatus, no significant abdominal distention. no fever or chills. End-stage renal disease -with history of multiple myeloma with recurrence , follows with Dr. Jessy Saab medoncology - on hemodialysis on Friday, Friday, Friday managed by nephrology -renally dosed medications Thrombus at the junction of the superior vena cava and subclavian vein. Prior CT angiography January 2019 noted. --held coumadin in case of surgical intervention for SBO - kept on renally dosed lovenox for her SVC thrombus multiple myeloma status post transplant with current relapse, on chemotherapy, -follows with Dr. Jessy Saab, medical oncology as outpt -resume chemo meds Crohn's disease,status post ostomy, -fluid management per nephrology recent pancreatitis 01/2019 -referred by Dr. Licona to [facility] for ERCP, but needed interruption of chronic anticoagulation with warfarin prior to proceeding. -pt was found to have subtherapeutic INR, and was placed on bridge therapy lovenox and coumadin by Vascular surgery Dr. adams when the patient was admitted to ARU for a left Buttock Hematoma. history of skin melanoma, -followed by Dr. Saab secondary hyperparathyroidism of renal origin -managed by Nephrology anemia related to chronic renal failure and myeloma, -no acute indication for RBC transfusion hypothyroidism. 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 -well healed on exam, no signs of infection sore throat due to ng tube prn chloraseptic spray DVT prophylaxis: on lovenox renally dosed for SVC thrombus Diet: advanced to po diet by surgery Code status: DNR VS, I&O, 24H, Roxy Vital Signs/I&O Vital Signs Date Time Temp Pulse Resp B/P (MAP) Pulse Ox O2 Delivery O2 Flow Rate FiO2 04/17/19 23:02 96 Room Air 04/17/19 22:00 98.6 74 21 122/59 (80) I&O- Last 24 Hours up to 6 AM 04/18/19 06:00 Intake Total 350 ml Output Total 2050 ml Balance -1700 ml Laboratory Data 24H LABS Laboratory Tests 2 04/18/19 05:51: Immature Granulocyte % (Auto) 0.8, White Blood Count 5.3, Red Blood Count 2.97L, Hemoglobin 10.1L, Hematocrit 31.3L, Mean Corpuscular Volume 105.4H, Mean Corpuscular Hemoglobin 34.0H, Mean Corpuscular Hemoglobin Concent 32.3, Red Cell Distribution Width 15.7H, Platelet Count 164, Neutrophils (%) (Auto) 76.2H, Lymphocytes (%) (Auto) 12.8L, Monocytes (%) (Auto) 8.9H, Eosinophils (%) (Auto) 0.9, Basophils (%) (Auto) 0.4, Neutrophils # (Auto) 4.0, Lymphocytes # (Auto) 0.7L, Monocytes # (Auto) 0.5, Eosinophils # (Auto) 0.1, Basophils # (Auto) 0.0, Nucleated Red Blood Cells % (auto) 0.0, Anion Gap 12, Glomerular Filtration Rate 12.5L, Blood Urea Nitrogen 38H, Creatinine 3.78H, Sodium Level 141, Potassium Level 4.3, Chloride Level 106, Carbon Dioxide Level 23, Calcium Level 8.9, Magnesium Level 2.2 CBC/BMP Laboratory Tests 04/18/19 05:51 Red Blood Count 2.97 L, Mean Corpuscular Volume 105.4 H, Mean Corpuscular Hemoglobin 34.0 H, Mean Corpuscular Hemoglobin Concent 32.3, Red Cell Distribution Width 15.7 H, Neutrophils (%) (Auto) 76.2 H, Lymphocytes (%) (Auto) 12.8 L, Monocytes (%) (Auto) 8.9 H, Eosinophils (%) (Auto) 0.9, Basophils (%) ( Auto) 0.4, Neutrophils # (Auto) 4.0, Lymphocytes # (Auto) 0.7 L, Monocytes # (Auto) 0.5, Eosinophils # (Auto) 0.1, Basophils # (Auto) 0.0, Calcium Level 8.9 AMERICA RAMÍREZ MD Apr 18, 2019 06:40
[2019-04-18 14:00] VITALS: BP 105/57
[2019-04-18] MEDS: ENOXAPARIN 60 MG/0.6 ML SYR (J1650) SC SCH (14:46)
--- NOTE | 2019-04-18 17:56 | IPN ---
DATE: 04/17/2019 SUBJECTIVE: Patient was seen and examined at the bedside today morning during hemodialysis today. She is tolerating the hemodialysis procedure well. She reports that the ileostomy output is slightly improving. She continues to be on gentle intravenous (IV) fluid hydration. She reports trace facial edema and she w3ants some fluid removed during dialysis today. OBJECTIVE: VITAL SIGNS: Temperature is 98.1 degrees Fahrenheit, blood pressure 132/70, pulse is 73, respiratory rate of 20, saturating 95% on room air. INTAKE AND OUTPUT: Urine output recorded is 200 mL yesterday, 1150 mL so far today since overnight. Weight in the bed scale is not available. PHYSICAL EXAMINATION GENERAL: Patient is patient is awake, alert, oriented times three, laying in bed getting hemodialysis done, in no apparent distress. HEAD AND NECK EXAM: Extraocular muscles intact. Patient has an nasogastric tube (NGT), which is attached to suction. Mucous membranes are moist. Neck is supple. There is no jugular venous distention (JVD). CARDIOVASCULAR: S1, S2. Regular rate. Trace edema of the bilateral lower extremities. RESPIRATORY: Chest is clear to auscultation bilaterally. Bilateral equal air entry. No rales or rhonchi. ABDOMEN: Soft. Positive bowel sounds. Right lower quadrant ileostomy with small amount of liquid stools in the bag. MUSCULOSKELETAL: No clubbing or cyanosis. Pulses are 2+. CENTRAL NERVOUS SYSTEM (PARKING LOT MANAGER): No focal deficit. Power is 5/5 in all extremities. LABORATORY REVIEW: Complete blood count (CBC) showed a WBC 4.9, hemoglobin 10.4, platelets of 165. Basic metabolic panel (BMP) showed sodium 139, potassium 4.1, chloride 107, bicarbonate 24, BUN 51, creatinine is 4.7. IMAGING STUDIES: An x-ray of the abdomen was done today morning which showed no significant improvement in bowel pattern. CURRENT INPATIENT MEDICATIONS: The patient's medications were all reviewed by me. Patient has been started on higher dose of levothyroxine 37.5 mcg IV daily. She continues to be on subcutaneous Levaquin. She is on gentle IV fluid hydration D5 half-normal saline at 50 mL an hour. ASSESSMENT/PLAN: 1. End-stage renal disease on hemodialysis. Patient is being dialyzed according to her schedule. Because of IV fluid hydration, I would remove 500 mL of fluid during dialysis today. 2. Anemia in end-stage renal disease. Hemoglobin is 10.4, which is optimal. No need of Aranesp administration at this point. 3. Hypothyroidism. TSH levels are still slightly high. Levothyroxine dose has been increased. She is currently getting IV levothyroxine because she is nothing by mouth. 4. Small-bowel obstruction. Patient is nothing by mouth. Nasogastric tube attached to suctioning. She continues to be on IV fluid. Surgical service is also already on board. 5. Thrombose at the junction of the superior vena cava and subclavian vein. Coumadin is on hold. Patient is currently getting Lovenox. 6. Multiple myeloma not having achieved remission. Patient gets chemotherapy as outpatient. She is usually due for her dexamethasone on Sundays.
[2019-04-18] MEDS ORDERED: NINLARO PO ONE (20:00)
[2019-04-18 22:00] VITALS: BP 111/52
[2019-04-19] MEDS: LEVOTHYROXINE 50MCG TABLET (0.05MG) PO SCH (05:35)
[2019-04-19 06:00] VITALS: BP 114/57
[2019-04-19 06:03] LABS: HEMOGLOBIN 11.3 g/dl (12.0-15.5); LYMPH # 0.6 10^3/uL (1.5-4.5); LYMPH % 15.5 % (24.0-44.0); MEAN CORPUSCULAR HEMOGLOBIN 34.5 pg (27.0-33.0); MEAN CORPUSCULAR HGB CONC 33.2 g/dl (32.0-36.5); MEAN CORPUSCULAR VOLUME 103.7 fl (80.0-96.0); MONO # 0.1 10^3/uL (0.0-0.8); MONO % 1.4 % (0.0-5.0); NEUTROPHILS # 2.9 10^3/uL (1.8-7.7); NEUTROPHILS % 82.5 % (36.0-66.0); PLATELET COUNT, AUTOMATED 184 10^3/uL (150-450); RED BLOOD COUNT 3.28 10^6/uL (4.00-5.40); WHITE BLOOD COUNT 3.6 10^3/uL (4.0-10.0)
[2019-04-19 06:29] LABS: CALCIUM LEVEL 8.9 MG/DL (8.8-10.2); CREATININE FOR GFR 4.71 MG/DL (0.55-1.30); GLOMERULAR FILTRATION RATE 9.7 (>39); MAGNESIUM LEVEL 2.2 MG/DL (1.8-2.4); POTASSIUM SERUM 4.5 MEQ/L (3.5-5.1)
--- NOTE | 2019-04-19 06:34 | IPN ---
DATE: 04/17/2019 HISTORY: The patient is a 73-year-old woman who was seen in consultation by Dr. Chamorro yesterday. She has a history of a previous total proctocolectomy with ileostomy greater than 30 years ago. She was admitted recently with a hematoma of the buttock and then transferred to the acute rehabilitation unit for strengthening. She developed some abdominal pain with a suggestion of a bowel obstruction on or about the evening of the and a nasogastric tube was placed. She was moved back to an acute floor for management and Dr. Chamorro saw her yesterday. She has her ileostomy in the right lower quadrant. She reports that she has now been having some gas as well as some liquid stool from her ostomy today. Her NG tube has not had much out and she has generally been feeling pretty good, though she occasionally gets some abdominal cramping. Vital signs show that she has been afebrile with stable vitals over the last 24 hours. Her pulse is in the 70s. Intake and output show that yesterday she had 450 mL recorded in, which was IV fluid. She had 200 of urine output yesterday. Today she had 500 mL out with hemodialysis and has 1100 of urine recorded. She has 200 of stool recorded as well as some output from her NG tube. PHYSICAL EXAMINATION: The patient is alert and appears fairly comfortable. Skin is warm and dry. Heart exam shows a regular rhythm. Her hemodialysis access is in the right upper chest. The abdomen is flat. She has an ileostomy appliance in the right lower quadrant. There is some slight prominence around her ileostomy. She has bowel sounds present. The abdomen is soft and without any significant tenderness except directly at the ostomy. LABORATORY STUDIES: Today showed a white count of 5, hemoglobin of 10, hematocrit of 32 and a platelet count of 165,000. Differential count shows 78% neutrophils, 12% lymphocytes and 8% monocytes. Chemistry profile showed a sodium of 139, potassium 4.1, chloride 107, CO2 of 24, BUN of 51, creatinine 4.75 and a glucose of 88. IMPRESSION: The patient is now having some bowel function with flatus and some liquid stool from her ileostomy. The abdomen is soft and without significant tenderness. Her NG tube has very little out. PLAN: I will clamp the patient's NG tube overnight. I advised her that if she develops nausea or vomiting or increasing abdominal pain that she should have the nurse reconnect the NG to low intermittent suction. If she tolerates the tube clamped well overnight then we will remove it in the morning and start her on some food.
--- NOTE | 2019-04-19 08:42 | IPNPDOC ---
Date Seen The patient was seen on 04/19/19. Progress Note SUBJECTIVE: Per RN no issues overnight. pt denies nausea, vomiting, but still w slight abd discomfort 2/10 pain scale before she passes flatus, no significant abdominal distention. no fever or chills. pt lost her iv site on 04/17/19, and ivfluids were held. Surgery advanced pt to a po diet 04/18/19, and no need for line placement. Tolerating her diet well. Passed HSE, with recommendations for home care at hospital discharge. Since she is receiving dialysis today, ok to [facility] with home care tomorrow. OBJECTIVE: PHYSICAL EXAMINATION: Vital signs:pls see below General: NG tube with dark bilious drainage. She is awake and alert x 3 able to provide the history. Anicteric sclerae. Extraocular muscles are intact. Tongue is moist. no use of respiratory muscles no jaundice. Neck is supple. Jugular veins are not elevated. Cardiac: S1, S2, regular rate and rhythm. No edema in the extremities. Palpable radial pulse. Lungs are clear to auscultation bilaterally. No crackles, rales or wheeze. Abdomen is soft right lower quadrant with some tenderness along the epigastric and RLQ area. There is a functional ostomy present. Skin is warm and dry. Normal temperature and turgor.well healed left upper arm AV graft scar left buttock with swelling and ecchymosis, medial left thigh with ecchymosis Neurologic:AAOx3 answering questions appropriately, speech is fluent, face symmetric, no pronator drift, tongue midline, 5/5/ motor b/l UE> no sensory disturbance 4/5 left hip flexion and knee extension (pain limited), 4/5 ankle DF and EHL, 5/5 ankle PF LABORATORY DATA, IMAGING STUDIES, MICRIOBIOLOGY: reviewed, pls see below ASSESSMENT AND PLAN: 73-year-old DNR female with a past medical history of end-stage renal disease, on hemodialysis on a Friday, Friday, Friday schedule, multiple myeloma, status post stem cell transplant with relapse, currently on chemothera py, history of Crohn's disease with ostomy, pancreatitis, suspected CVA in 03/2019 with left sided weakness and expressive aphasia which resolved, melanoma and basal cell carcinoma follows with Dr. 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 While at ARU, pt ate an apple at 6am yesterday, "didn't come through, until 9:30 pm " last night, with increasing crampy epigastric and right lower quadrant abdominal pain and distention, nausea and vomiting clear emesis, requiring NG tube placement. Pain was 10/10 and was not relieved by changing positions, but slightly improved by pain meds and NG tube suctioning. 04/15/19 CT abd/pelvis showed. Status post colectomy with right anterior pelvic ileostomy. There is a mild ostomy hernia with some extension of distal small bowel into the subcutaneous tissues. Borderline to mild small bowel distention to the cutaneous ostomy opening with some stool like material within the lumen of the preceding small bowel. 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 Trace bilateral pleural effusions and trace peritoneal ascites. Bilateral renal atrophy. Status post hysterectomy. Pt has not passed flatus. Surgery was consulted,Dr. Chamorro, who recommended conservative management for now. Pt denies any fever, chills, or recurrent vomiting since last night. Hospitalist was asked to admit. Nephrology consulted for fluid management. Small Bowel Obstruction -pt was discharged from the acute rehab unit, and admitted to PCU with telemetry -s/p npo, with nasogastric tube to low intermittent suction, ivfluids per nephrology kept at 50-60ml/hr due to risk of volume overload -General Surgery, Dr. Chamorro, has recommended conservative management for now. -held coumadin, and kept on renally dosed lovenox for her SVC thrombus -pt lost her iv site on 04/17/19, and ivfluids were held. Surgery advanced pt to a po diet this morning, and no need for line placement. pt has no c/o nausea, vomiting, but still w slight abd discomfort before she passes flatus, no significant abdominal distention. no fever or chills. No iv access 04/17/19 -pt lost her iv site on 04/17/19, and ivfluids were held. Surgery advanced pt to a po diet this morning, and no need for line placement. pt has no c/o nausea, vomiting, but still w slight abd discomfort before she passes flatus, no signif icant abdominal distention. no fever or chills. End-stage renal disease -with history of multiple myeloma with recurrence , follows with Dr. Jessy Saab medoncology - on hemodialysis on Friday, Friday, Friday managed by nephrology -renally dosed medications Thrombus at the junction of the superior vena cava and subclavian vein. Prior CT angiography January 2019 noted. --held coumadin in case of surgical intervention for SBO - kept on renally dosed lovenox for her SVC thrombus multiple myeloma status post transplant with current relapse, on chemotherapy, -follows with Dr. Jessy Saab, medical oncology as outpt -resume chemo meds Crohn's disease,status post ostomy, -fluid management per nephrology recent pancreatitis 01/2019 -referred by Dr. Licona to [facility] for ERCP, but needed interruption of chronic anticoagulation with warfarin prior to proceeding. -pt was found to have subtherapeutic INR, and was placed on bridge therapy lovenox and coumadin by Vascular surgery Dr. adams when the patient was admitted to ARU for a left Buttock Hematoma. history of skin melanoma, -followed by Dr. Saab secondary hyperparathyroidism of renal origin -managed by Nephrology anemia related to chronic renal failure and myeloma, -no acute indication for RBC transfusion hypothyroidism. 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 -well healed on exam, no signs of infection sore throat due to ng tube prn chloraseptic spray DVT prophylaxis: on lovenox renally dosed for SVC thrombus Diet: advanced to po diet by surgery Code status: DNR disposition: dc plans Friday if no issues overnight. passed HSE. VS, I&O, 24H, Fishbone Vital Signs/I&O Vital Signs Date Time Temp Pulse Resp B/P (MAP) Pulse Ox O2 Delivery O2 Flow Rate FiO2 04/19/19 06:00 97.5 68 20 114/57 (76) 97 04/17/19 23:02 Room Air I&O- Last 24 Hours up to 6 AM 04/19/19 06:00 Intake Total 2490 ml Output Total 2150 ml Balance 340 ml Laboratory Data 24H LABS Laboratory Tests 2 04/19/19 05:44: Immature Granulocyte % (Auto) 0.6, White Blood Count 3.6L, Red Blood Count 3.28L, Hemoglobin 11.3L, Hematocrit 34.0L, Mean Corpuscular Volume 103.7H, Mean Corpuscular Hemoglobin 34.5H, Mean Corpuscular Hemoglobin Concent 33.2, Red Cell Distribution Width 15.4H, Platelet Count 184, Neutrophils (%) (Auto) 82.5H, Lymphocytes (%) (Auto) 15.5L, Monocytes (%) (Auto) 1.4, Eosinophils (%) (Auto) 0.0, Basophils (%) (Auto) 0.0, Neutrophils # (Auto) 2.9, Lymphocytes # (Auto) 0.6L, Monocytes # (Auto) 0.1, Eosinophils # (Auto) 0.0, Basophils # (Auto) 0.0, Nucleated Red Blood Cells % (auto) 0.0, Anion Gap 8, Glomerular Filtration Rate 9.7L, Blood Urea Nitrogen 52H, Creatinine 4.71H, Sodium Level 138, Potassium Level 4.5, Chloride Level 109H, Carbon Dioxide Level 21, Calcium Level 8.9, Magnesium Level 2.2 CBC/BMP Laboratory Tests 04/19/19 05:44 Red Blood Count 3.28 L, Mean Corpuscular Volume 103.7 H, Mean Corpuscular Hemoglobin 34.5 H, Mean Corpuscular Hemoglobin Concent 33.2, Red Cell Distribution Width 15.4 H, Neutrophils (%) (Auto) 82.5 H, Lymphocytes (%) (Auto) 15.5 L, Monocytes (%) (Auto) 1.4, Eosinophils (%) (Auto) 0.0, Basophils (%) (Auto) 0.0, Neutrophils # (Auto) 2.9, Lymphocytes # (Auto) 0.6 L, Monocytes # (Auto) 0.1, Eosinophils # (Auto) 0.0, Basophils # (Auto) 0.0, Calcium Level 8.9 AMERICA RAMÍREZ MD Apr 19, 2019 08:42
--- NOTE | 2019-04-19 10:03 | IPN ---
DATE OF SERVICE: 04/18/2019 HISTORY: The patient was transferred from the acute rehabilitation unit to inpatient status with evidence of a bowel obstruction 2 days ago. Her nasogastric (NG) tube was clamped overnight, and she continued to have output from her ileostomy including air with no increase in her abdominal pain. I ordered removal of the NG tube this morning, and she was started on some clear liquids. Vital signs show that she has been afebrile. Her pulse is in the 70s to low 80s. Her blood pressure is good. Intake and output shows that the yesterday she had an excellent urine output with 1300 out. She has had 350 of stool recorded out of the ileostomy this morning. Physical examination shows that she is lying quietly on the hospital bed looking quite comfortable. The abdomen is flat and soft. She does have some bowel sounds present. Laboratory studies show that her white count is 5 with a hemoglobin of 10, hematocrit of 31, and a platelet count of 164,000. Her differential count shows 76 neutrophils, 13 lymphocytes, and 9 monocytes. Chemistries show normal electrolytes with a BUN of 38, creatinine 3.8, and a glucose of 64. IMPRESSION: The patient is so far tolerating her clear liquids without any difficulty. Her ileostomy function appears to have returned normally. PLAN: The patient will be allowed to advance her diet when she has tolerated adequate clear liquids. She is interested in resuming her chemotherapy, which is taken orally, and I see no reason this could not proceed, and I note that Dr. Reagan has already ordered the medications.
[2019-04-19] MEDS ORDERED: HEPARIN 1,000 UNITS/ML 10ML VIAL (FOR RADIOLOGY& DIALYSIS ONLY) XX ONE (10:15)
--- NOTE | 2019-04-19 10:48 | IPN ---
DATE OF SERVICE: 04/18/2019 SUBJECTIVE: The patient was seen and examined at the bedside. She is afebrile, hemodynamically stable. She was dialyzed yesterday and 500 mL of fluid was removed. The patient is feeling much better. Her NG tube was removed today. IV fluids are on hold. She reported that she tolerated a clear liquid diet and she has ordered a regular lunch. Ileostomy output is improving now. OBJECTIVE: Vital Signs: Temperature is 98.7 degrees Fahrenheit, blood pressure 105/57, pulse is 81, respiratory rate of 18, saturating 96% on room air. Intake and Output: Urine output recorded as 525 mL. Stool output from ileostomy is 1175 mL so far. Weight in the bed scale is 48.4 kg. PHYSICAL EXAMINATION: General: The patient is awake, alert, oriented times three, laying in bed, in no apparent distress. Head and Neck Exam: Extraocular muscles intact. Pupils equally round and reactive to light. Mucous membranes are moist. Neck is supple. There is no jugular venous distention (JVD). Cardiovascular: S1 and S2, regular rate. No edema of the bilateral lower extremities. Respiratory: Chest is clear to auscultation bilaterally. Bilateral equal air entry. No rales or rhonchi. Abdomen: Soft. Positive bowel sounds. Right lower quadrant ileostomy with the liquid stools in the bag. Musculoskeletal: No clubbing or cyanosis. Pulses are 2+. PROJECT HIRE: No focal deficit. Power is 5/5 in all extremities. LAB REVIEW: CBC showed a WBC of 5.3, hemoglobin 10.1, platelets of 164. BMP showed sodium 141, potassium 4.3, chloride 106, bicarb 23, BUN 38, creatinine 3.7, calcium 8.9, and magnesium is 2.2. CURRENT INPATIENT MEDICATIONS: The patient's medications were all reviewed by me. IV fluids have been stopped now. The patient is going to get a dose of dexamethasone today as per her weekly chemo regimen. The patient is also going to get NINLARO 3 mg capsule today as per her schedule. No other change in the medications today as compared with yesterday. ASSESSMENT/PLAN: 1. End-stage renal disease on hemodialysis. The patient was dialyzed yesterday according to her schedule, next hemodialysis will be on Friday. 2. Anemia in end-stage renal disease. Hemoglobin is 10.1,which is optimal. She is not receiving Aranesp at this point. 3. Small bowel obstruction. The patient's NG tube has been removed. She is tolerating the liquid and diet is being advanced by surgical service. 4. Thrombose at the junction of superior vena cava and subclavian vein. The patient is currently on Lovenox. 5. Multiple myeloma, not having achieved remission. The patient is going to get her dose of dexamethasone and NINLARO today according to her schedule.
[2019-04-19] MEDS: ENOXAPARIN 60 MG/0.6 ML SYR (J1650) SC SCH (12:44)
[2019-04-19] MEDS: (RENVELA) SEVELAMER **CARBONate** 800 MG TAB PO SCH ×2 (12:44→18:09)
[2019-04-19 14:00] VITALS: BP 115/54
[2019-04-19] MEDS ORDERED: WARFARIN SOD 5 MG TAB PO ONE (17:00)
--- NOTE | 2019-04-19 21:32 | IPN ---
DATE: 04/19/2019 SUBJECTIVE: The patient was seen and examined at the bedside today, morning, during hemodialysis. She is tolerating the hemodialysis procedure well. She denies any active complaints at this point. OBJECTIVE: VITAL SIGNS: Temperature is 97.5 degrees Fahrenheit, blood pressure 114/57, pulse is 68, respiratory rate of 20, saturating 97% on room air. INTAKE/OUTPUT: Urine output recorded as 675 mL yesterday, 250 mL so far today. Weight on the bed scale is 47.5 kg. PHYSICAL EXAMINATION: GENERAL: The patient is awake, alert, oriented times three, laying in bed, getting hemodialysis done, in no apparent distress. HEAD AND NECK EXAM: Extraocular muscles intact. Pupils equally round and reactive to light. Mucous membranes are moist. Neck is supple. There is no jugular venous distention (JVD). CARDIOVASCULAR: S1, S2, regular rate. No edema of the bilateral lower extremities. RESPIRATORY: Chest is clear to auscultation bilaterally. Bilateral equal air entry. No rales or rhonchi. ABDOMEN: Abdomen is soft. Positive bowel sounds. Right lower quadrant ileostomy. MUSCULOSKELETAL: No clubbing or cyanosis. Pulses are 2+. CENTRAL NERVOUS SYSTEM (ROAD CLEANER): No focal deficit. Power is 5/5 in all extremities. LAB REVIEW: CBC showed a WBC of 3.6, hemoglobin 11.3, platelets are 184. BMP showed sodium 138, potassium 4.5, chloride 109, bicarbonate 21, BUN 52, creatinine is 4.7. CURRENT INPATIENT MEDICATIONS: The patient's medications were all reviewed by me. Patient got a dose of NINLARO and dexamethasone yesterday. ASSESSMENT AND PLAN: 1. End-stage renal disease, on hemodialysis. Patient is being dialyzed today according to her schedule. About 500 mL of fluid will be removed because she has ileostomy status and ileostomy is putting out more fluid now. 2. Small bowel obstruction. Obstruction is relieved now. Patient is tolerating a regular diet. Nasogastric tube was removed yesterday. 3. Anemia in end-stage renal disease. Hemoglobin is 11.3. Patient does not need any Aranesp at this point. 4. Multiple myeloma, not having achieved remission. The patient got a dose of dexamethasone and NINLARO yesterday. The rest of the management is as outpatient. 5. Thrombosis at superior junction of superior vena cava and subclavian vein. The patient is currently on Lovenox.
[2019-04-19 22:00] VITALS: BP 101/52
[2019-04-20] MEDS: LEVOTHYROXINE 50MCG TABLET (0.05MG) PO SCH (05:58)
[2019-04-20 06:00] VITALS: BP 127/70
[2019-04-20 06:21] LABS: BASO % 0.2 % (0.0-1.0); EOS # 0.1 10^3/uL (0.0-0.50); EOS % 0.8 % (0.0-3.0); HEMATOCRIT 34.4 % (36.0-47.0); HEMOGLOBIN 11.4 g/dl (12.0-15.5); LYMPH # 0.8 10^3/uL (1.5-4.5); LYMPH % 11.8 % (24.0-44.0); MEAN CORPUSCULAR HEMOGLOBIN 33.2 pg (27.0-33.0); MEAN CORPUSCULAR HGB CONC 33.1 g/dl (32.0-36.5); MEAN CORPUSCULAR VOLUME 100.3 fl (80.0-96.0); MONO # 0.6 10^3/uL (0.0-0.8); MONO % 9.1 % (0.0-5.0); NEUTROPHILS # 5.1 10^3/uL (1.8-7.7); NEUTROPHILS % 77.3 % (36.0-66.0); PLATELET COUNT, AUTOMATED 190 10^3/uL (150-450); RED BLOOD COUNT 3.43 10^6/uL (4.00-5.40); WHITE BLOOD COUNT 6.6 10^3/uL (4.0-10.0)
[2019-04-20 06:27] LABS: INR 1.23; PROTHROMBIN TIME 15.6 SECONDS (12.1-14.4)
[2019-04-20 06:39] LABS: CALCIUM LEVEL 9.3 MG/DL (8.8-10.2); CREATININE FOR GFR 3.59 MG/DL (0.55-1.30); GLOMERULAR FILTRATION RATE 13.3 (>39); MAGNESIUM LEVEL 2.1 MG/DL (1.8-2.4); POTASSIUM SERUM 3.8 MEQ/L (3.5-5.1)
[2019-04-20] MEDS: (RENVELA) SEVELAMER **CARBONate** 800 MG TAB PO SCH ×2 (08:10→12:25)
[2019-04-20] MEDS: ENOXAPARIN 60 MG/0.6 ML SYR (J1650) SC SCH (12:26)
[2019-04-20] MEDS ORDERED: LOVE0.4I2 SC (13:08)
--- NOTE | 2019-04-20 19:21 | DS.PDOC ---
Discharge Summary General Date of Admission Apr 16, 2019 at 15:14 Date of Discharge 04/20/2019 Discharge Summary HPI: 73-year-old DNR female with a past medical history of end-stage renal disease, on hemodialysis on a Friday, Friday, Friday schedule, multiple myeloma, status post stem cell transplant with relapse, currently on chemotherapy, history of Crohn's disease with ostomy, pancreatitis, suspected CVA in 03/2019 with left sided weakness and expressive aphasia which resolved, melanoma and basal cell carcinoma follows with Dr. 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 While at ARU, pt ate an apple at 6am yesterday, "didn't come through, until 9:30 pm " last night, with increasing crampy epigastric and right lower quadrant abdominal pain and distention, nausea and vomiting clear emesis, requiring NG tube placement. Pain was 10/10 and was not relieved by changing positions, but slightly improved by pain meds and NG tube suctioning. 04/15/19 CT abd/pelvis showed. Status post colectomy with right anterior pelvic ileostomy. There is a mild ostomy hernia with some extension of distal small bowel into the subcutaneous tissues. Borderline to mild small bowel distention to the cutaneous ostomy opening with some stool like material within the lumen of the preceding small bowel. 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 Trace bilateral pleural effusions and trace peritoneal ascites. Bilateral renal atrophy. Status post hysterectomy. Pt has not passed flatus. Surgery was consulted,Dr. Chamorro, who recommended conservative management for now. Pt denies any fever, chills, or recurrent vomit ing since last night. Hospitalist was asked to admit. Nephrology consulted for fluid management. Hospital course For small Bowel Obstruction, pt was discharged from the acute rehab unit, and admitted to PCU with telemetry. s/p npo, with nasogastric tube to low intermittent suction, ivfluids per nephrology kept at 50-60ml/hr due to risk of volume overload. General Surgery, Dr. Chamorro, has recommended conservative management. Held coumadin, and kept on renally dosed lovenox for her SVC thrombus. Later, coumadin home dose was started, and lovenox was continued with a goal of INR 2-3. SBO has resolved on conservative measurement. For End-stage renal disease, with history of multiple myeloma with recurrence, follows with Dr. Jessy Saab medoncologdorian. She is on hemodialysis on Friday, Friday, Friday managed by nephrology. Renally dosed medications. For Thrombus at the junction of the superior vena cava and subclavian vein. Prior CT angiography January 2019 noted. Coumadin was held in case of surgical intervention for SBO, but resumed with bridging lovenox. The patient will continue home dose coumadin and continue lovenox. She will have lab check INR per primary care, and follow. The patient is medically stable to be discharged. She will continue lovenox and coumadin at the same time and check INR on Friday. Vital Signs/I&Os Vital Signs Date Time Temp Pulse Resp B/P (MAP) Pulse Ox O2 Delivery O2 Flow Rate FiO2 04/20/19 06:00 97.5 69 18 127/70 (89) 96 04/17/19 23:02 Room Air I&O- Last 24 Hours up to 6 AM 04/20/19 06:00 Intake Total 1380 ml Output Total 2075 ml Balance -695 ml Laboratory Data Labs 24H Laboratory Tests 2 04/20/19 05:47: Immature Granulocyte % (Auto) 0.8, White Blood Count 6.6, Red Blood Count 3.43L, Hemoglobin 11.4L, Hematocrit 34.4L, Mean Corpuscular Volume 100.3H, Mean Corpuscular Hemoglobin 33.2H, Mean Corpuscular Hemoglobin Concent 33.1, Red Cell Distribution Width 15.2H, Platelet Count 190, Neutrophils (%) (Auto) 77.3H, Lymphocytes (%) (Auto) 11.8L, Monocytes (%) (Auto) 9.1H, Eosinophils (%) (Auto) 0.8, Basophils (%) (Auto) 0.2, Neutrophils # (Auto) 5.1, Lymphocytes # (Auto) 0.8L, Monocytes # (Auto) 0.6, Eosinophils # (Auto) 0.1, Basophils # (Auto) 0.0, Nucleated Red Blood Cells % (auto) 0.0, Prothrombin Time 15.6H, Prothromb Time International Ratio 1.23, Anion Gap 7L, Glomerular Filtration Rate 13.3L, Blood Urea Nitrogen 37H, Creatinine 3.59H, Sodium Level 138, Potassium Level 3.8, Chloride Level 105, Carbon Dioxide Level 26, Calcium Level 9.3, Magnesium Level 2.1 CBC/BMP Laboratory Tests 04/20/19 05:47 Red Blood Count 3.43 L, Mean Corpuscular Volume 100.3 H, Mean Corpuscular Hemoglobin 33.2 H, Mean Corpuscular Hemoglobin Concent 33.1, Red Cell Distri bution Width 15.2 H, Neutrophils (%) (Auto) 77.3 H, Lymphocytes (%) (Auto) 11.8 L, Monocytes (%) (Auto) 9.1 H, Eosinophils (%) (Auto) 0.8, Basophils (%) (Auto) 0.2, Neutrophils # (Auto) 5.1, Lymphocytes # (Auto) 0.8 L, Monocytes # (Auto) 0.6, Eosinophils # (Auto) 0.1, Basophils # (Auto) 0.0, Calcium Level 9.3 Discharge Medications Scheduled Cholecalciferol (Vitamin D3) (Vitamin D3) 2,000 Unit Tab, 2,000 UNIT PO DAILY, (Reported) Cyclosporine (Restasis) 0.05 % Emu, 1 DROP OU BID, (Reported) Dexamethasone (Dexamethasone) 4 Mg Tab, 12 MG PO ASDIRECTED, (Reported) TAKES DAYS 1,8,15,22 - LAST DOSE WAS DAY 1 OF CYCLE Diphenhydramine HCl (Benadryl) 25 Mg Cap, 25 MG PO 3XW, (Reported) TAKES PRIOR TO DIALYSIS M,W,F Enoxaparin Sodium (Lovenox) 60 Mg/0.6 Ml Syringe, 50 MG SC Q24H take until instructed to stop by your doctor following INr (coumadin level) Ixazomib Citrate (Ninlaro) 3 Mg Cap, 3 MG PO ASDIRECTED, (Reported) TAKES ON DAY 1,8,15 OF 22 DAY CYCLE. LAST DOSE WAS DAY 1 OF CYCLE Lactose-Reduced Food (Ensure Plus) 237 Ml Liquid, 1 LIQ PO QHS, (Reported) Levothyroxine Sodium (Levoxyl) 50 Mcg Tablet, 50 MCG PO DAILY, (Reported) Shirley-3 Fatty Acids/Fish Oil (Fish Oil 1,000 mg Capsule) 1 Each Capsule, 1,000 MG PO DAILY, (Reported) Sevelamer Carbonate (Renvela) 800 Mg Tab, 800 MG PO WM, (Reported) Warfarin Sodium (Warfarin Sodium) 5 Mg Tablet, 5 MG PO 3XW, (Reported) QPM: SUN, TUES, THURS Warfarin Sodium (Warfarin Sodium) 7.5 Mg Tablet, 7.5 MG PO 4XWK, (Reported) QPM: MON, WED, FRI, SAT Scheduled PRN Oxycodone HCl (Oxycodone HCl) 5 Mg Tablet, 5 MG PO Q4HP PRN for PAIN Allergies Coded Allergies: vancomycin (Verified Allergy, Intermediate, RASH/ITCHING, 03/26/19) MELISSA BREWSTER MD Apr 20, 2019 19:21
--- NOTE | 2019-04-20 21:02 | IPN ---
DATE: 04/20/2019 SUBJECTIVE: The patient was seen and examined the bedside today morning. She is afebrile, hemodynamically stable. She was dialyzed yesterday. She tolerated the hemodialysis procedure. There was 500 mL of fluid removed. She is feeling much better. She reports that she is getting ready to be discharged home today. OBJECTIVE: Vital signs: Temperature is 97.5 degrees Fahrenheit, blood pressure 127/70, pulse is 69, respiratory rate of 18, saturating 96% on room air. Intake and output: Urine output recorded was 600 mL yesterday. There was 500 mL of fluid removed with dialysis yesterday. Weight in the bed scale was 47.5 kg yesterday. PHYSICAL EXAMINATION: GENERAL: The patient is awake, alert, oriented times three, lying in bed in no apparent distress. HEAD AND NECK: Extraocular muscles intact. Pupils equally round and reactive to light. Mucous membranes are moist. Neck is supple. There is no jugular venous distention (JVD). CARDIOVASCULAR: S1, S2, regular rate. No edema of the bilateral lower extremities. RESPIRATORY: Chest is clear to auscultation bilaterally. Bilateral equal air entry. No rales or rhonchi. ABDOMEN: Soft. Positive bowel sounds. Right lower quadrant ileostomy. CENTRAL NERVOUS SYSTEM: No focal deficit. Power is 5/5 in all extremities. LABORATORY REVIEW: CBC showed a WBC 6.6, hemoglobin 11.4. BMP showed sodium 138, potassium 3.8, chloride 105, bicarbonate 26, BUN 37, creatinine 3.5. CURRENT INPATIENT MEDICATIONS: The patient's medications were all reviewed by me. No change in the medications today as compared with yesterday. ASSESSMENT AND PLAN: 1. End-stage renal disease, on hemodialysis. The patient was dialyzed yesterday. Next hemodialysis session will be tomorrow as outpatient. 2. Multiple myeloma, not having achieved remission. The patient gets Ninlaro and dexamethasone once a week. Rest of the management is as per outpatient. 3. Thrombosis at the junction of her superior vena cava and subclavian vein. The patient is being discharged on Lovenox. She will followup with vascular as outpatient. 4. Chronic kidney disease, mineral bone disease. Continue home dose of Renvela 800 mg by mouth three times a day DISPOSITION: It is okay to discharge the patient from nephrology standpoint. She will be followed up tomorrow at dialysis center.
== END 2019-04-20 13:45 | disposition home or self-care (01) | DRG 388 ==
LOC: M MSPAV 15:14
PROVIDERS: ADMIT General Practice; ATTEND Internal Medicine
PROC: 5A1D70Z Performance of Urinary Filtration, Intermittent, Less than 6 Hours Per Day (ICD-10-PCS; principal; 2019-04-17)
DX: K56.600 Partial intestinal obstruction, unspecified as to cause (principal); N18.6 End stage renal disease; C90.02 Multiple myeloma in relapse; I82.210 Acute embolism and thrombosis of superior vena cava; N25.81 Secondary hyperparathyroidism of renal origin; K43.5 Parastomal hernia without obstruction or gangrene; D63.1 Anemia in chronic kidney disease; E03.9 Hypothyroidism, unspecified; Z99.2 Dependence on renal dialysis; Z66 Do not resuscitate; Z98.84 Bariatric surgery status; Z85.828 Personal history of other malignant neoplasm of skin; Z85.820 Personal history of malignant melanoma of skin; Z79.01 Long term (current) use of anticoagulants; Z93.2 Ileostomy status; Z87.891 Personal history of nicotine dependence; Z79.899 Other long term (current) drug therapy

== ENCOUNTER → 2019-04-23 | Outpatient (CLI) | payer MEDICARE, OTHER ==
[2019-04-23 13:56] LABS: INR 2.04; PROTHROMBIN TIME 22.8 SECONDS (11.8-14.0)
== END ==
LOC: M SMT 09:25
PROVIDERS: ATTEND Physician Assistant
DX: T82.868A Thrombosis due to vascular prosthetic devices, implants and grafts, initial encounter (principal); Z79.01 Long term (current) use of anticoagulants

== ENCOUNTER → 2019-04-29 | Outpatient (CLI) | payer MEDICARE, OTHER ==
[~2019-04-29] MED LIST changes: +MACR100C43 PO; +PERC5TAB12 PO; +ZOFR4TAB16 PO
[2019-04-29 10:16] LABS: HEMATOCRIT 37.8 % (36.0-47.0); HEMOGLOBIN 12.9 g/dl (12.0-15.5); MEAN CORPUSCULAR HEMOGLOBIN 34.6 pg (27.0-33.0); MEAN CORPUSCULAR HGB CONC 34.1 g/dl (32.0-36.5); MEAN CORPUSCULAR VOLUME 101.3 fl (80.0-96.0); PLATELET COUNT, AUTOMATED 270 10^3/uL (150-450); RED BLOOD COUNT 3.73 10^6/uL (4.00-5.40); WHITE BLOOD COUNT 7.6 10^3/uL (4.0-10.0)
== END ==
LOC: M LAB 09:28
PROVIDERS: ATTEND Internal Medicine Gastroenterology
DX: R58 Hemorrhage, not elsewhere classified (principal)

== ENCOUNTER → 2019-04-30 | Outpatient (CLI) | payer MEDICARE, OTHER ==
[2019-04-30 13:42] LABS: PROTHROMBIN TIME 46.9 SECONDS (11.8-14.0)
[2019-04-30 13:46] LABS: INR 5.02
== END ==
LOC: M SMT 09:26
PROVIDERS: ATTEND Physician Assistant
DX: T82.868A Thrombosis due to vascular prosthetic devices, implants and grafts, initial encounter (principal); Z79.01 Long term (current) use of anticoagulants

== ENCOUNTER → 2019-05-07 | Outpatient (CLI) | payer MEDICARE, OTHER ==
[2019-05-07 12:34] LABS: INR 2.46; PROTHROMBIN TIME 26.5 SECONDS (11.8-14.0)
== END ==
LOC: M SMT 09:24
PROVIDERS: ATTEND Physician Assistant
DX: T82.868A Thrombosis due to vascular prosthetic devices, implants and grafts, initial encounter (principal)

== ENCOUNTER → 2019-05-17 | Outpatient (CLI) | payer MEDICARE, OTHER ==
[2019-05-17 18:15] LABS: INR 1.53; PROTHROMBIN TIME 18.1 SECONDS (11.8-14.0)
== END ==
LOC: M SMT 13:36
PROVIDERS: ATTEND Physician Assistant
DX: T82.868A Thrombosis due to vascular prosthetic devices, implants and grafts, initial encounter (principal); Y92.9 Unspecified place or not applicable; Y93.9 Activity, unspecified; Z79.01 Long term (current) use of anticoagulants

== ENCOUNTER → 2019-05-20 | Outpatient (REF) | payer MEDICARE, OTHER | LOC: M LAB REF 10:42 | PROVIDERS: ATTEND Internal Medicine Gastroenterology | DX: K86.1 Other chronic pancreatitis (principal) ==

== ENCOUNTER → 2019-05-31 | Outpatient (CLI) | payer MEDICARE, OTHER ==
[2019-05-31 13:37] LABS: PROTHROMBIN TIME 31.1 SECONDS (11.8-14.0)
== END ==
LOC: M SMT 09:08
PROVIDERS: ATTEND Surgery Vascular Surgery
DX: T82.868A Thrombosis due to vascular prosthetic devices, implants and grafts, initial encounter (principal); Z79.01 Long term (current) use of anticoagulants

== ENCOUNTER → 2019-06-07 | Outpatient (CLI) | payer MEDICARE, OTHER ==
[2019-06-07 10:36] LABS: INR 2.12; PROTHROMBIN TIME 23.5 SECONDS (11.8-14.0)
== END ==
LOC: M SMT 09:01
PROVIDERS: ATTEND Surgery Vascular Surgery
DX: T82.868A Thrombosis due to vascular prosthetic devices, implants and grafts, initial encounter (principal); Z79.01 Long term (current) use of anticoagulants

== ENCOUNTER 2019-06-08 10:08 | Emergency (ER) | payer MEDICARE, OTHER ==
[~2019-06-08] VITALS: Ht 162.6 cm; Wt 47.3 kg
[~2019-06-08 10:08] MED LIST changes: -OMEP40CA2 PO; +OMEP40CA97 PO
[2019-06-08 11:00] LABS: BASO % 0.3 % (0.0-1.0); EOS % 0.4 % (0.0-3.0); HEMATOCRIT 33.8 % (36.0-47.0); HEMOGLOBIN 11.4 g/dl (12.0-15.5); LYMPH # 0.6 10^3/uL (1.5-4.5); LYMPH % 8.3 % (24.0-44.0); MEAN CORPUSCULAR HEMOGLOBIN 35.5 pg (27.0-33.0); MEAN CORPUSCULAR HGB CONC 33.7 g/dl (32.0-36.5); MEAN CORPUSCULAR VOLUME 105.3 fl (80.0-96.0); MONO # 0.6 10^3/uL (0.0-0.8); NEUTROPHILS # 5.7 10^3/uL (1.8-7.7); NEUTROPHILS % 80.9 % (36.0-66.0); PLATELET COUNT, AUTOMATED 180 10^3/uL (150-450); RED BLOOD COUNT 3.21 10^6/uL (4.00-5.40)
--- NOTE | 2019-06-08 11:01 | REP ---
CHEST, TWO VIEWS: HISTORY: Cough. COMPARISON: 05/11/2019. The lungs are hyperinflated. A small ill defined parenchymal density is present in the left lower lobe. The right lung is clear. The heart is normal in size. The pulmonary vasculature is normal in appearance. An Awwqac-X-Xbcl catheter is present. A stent is present in the left axilla. Surgical clips are present in the right axilla. IMPRESSION: No acute disease. There is a small ill defined parenchymal density in the left lower lobe. CT chest may be helpful for further evaluation. Electronically Signed by Russell Dixon MD 06/08/2019 11:26 A
[2019-06-08 11:04] LABS: VENOUS O2 SATURATION 63.5 % (60.0-80.0); VENOUS PARTIAL PRESSURE O2 33.2 mmHg (30.0-50.0); VENOUS PH 7.385 UNITS (7.330-7.430); VENOUS TOTAL CO2 25.2 MEQ/L (24.0-28.0)
[2019-06-08 11:22] LABS: INR 1.9; PROTHROMBIN TIME 21.6 SECONDS (11.8-14.0)
[2019-06-08 11:39] LABS: ALBUMIN 3.6 GM/DL (3.2-5.2); ALT/SGPT 36 U/L (12-78); BILIRUBIN,DIRECT 0.2 MG/DL (0.0-0.2); BILIRUBIN,TOTAL 0.8 MG/DL (0.2-1.0); BLOOD UREA NITROGEN 35 MG/DL (7-18); CALCIUM LEVEL 9.4 MG/DL (8.8-10.2); CARBON DIOXIDE LEVEL 24 MEQ/L (21-32); CHLORIDE LEVEL 104 MEQ/L (98-107); CK-MB VALUE MASS 1.1 NG/ML (<3.6); CPK CREATINE PHOSPHOKINASE 41 U/L (26-192); GLUCOSE, FASTING 98 MG/DL (70-100); MB/CK RELATIVE INDEX 2.68 (< OR =4); NT-PRO BNP 605 PG/ML (<125); SODIUM LEVEL 139 MEQ/L (136-145); TOTAL PROTEIN 6.6 GM/DL (6.4-8.2); TROPONIN I < 0.02 NG/ML (< 0.10)
--- NOTE | 2019-06-08 13:26 | REP ---
REASON FOR EXAM: Dyspnea. Prior plain film examination 06/08/2019 showed a left lower lobe opacity. All prior CT examinations of the chest have been reviewed, the latest of which is dated 01/13/2019. There is no evidence of mediastinal or hilar adenopathy. There are no pleural or pericardial effusions. The imaged upper abdomen is unchanged from the abdominal and pelvic CT of 04/15/2019. The imaged osseous structures show multilevel previous vertebroplasty with bony demineralization and chronic degenerative changes. There is a Mediport in place the tip of which is in the superior vena cava status quo. Evaluation of the lung george shows cylindrical bronchiectasis status quo. There are no new abnormal nodules, masses, or opacities. IMPRESSION: There is cylindrical bronchiectasis status quo from 01/13/2019. There are no abnormal nodules or masses. Findings as described above. Electronically Signed by Carmine Vaughn DO 06/08/2019 04:13 P
[2019-06-08 14:40] VITALS: BP 96/59
--- NOTE | 2019-06-08 19:52 | ECGEPIP ---
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
[2019-07-20] MEDS ORDERED: CREO3600 PO (09:45)
[2019-07-28] MEDS ORDERED: ACET-840 PO (14:39)
[2019-08-12] MEDS ORDERED: ONDA8TAB10 PO (16:38)
[2019-08-19] MEDS ORDERED: ACYC1CAP20 PO (10:15)
[2019-08-26] MEDS ORDERED: COUM1TAB17 PO (08:47)
[2019-09-07] MEDS ORDERED: HYDR-3713 PO (09:23)
[2019-10-06] MEDS ORDERED: LEVO750T13 PO (08:40)
== END 2019-06-08 14:43 | disposition home or self-care (01) ==
LOC: M ED 10:08
DX: R06.00 Dyspnea, unspecified (principal); G89.29 Other chronic pain; R10.9 Unspecified abdominal pain; N18.6 End stage renal disease; Z99.2 Dependence on renal dialysis; C90.00 Multiple myeloma not having achieved remission; K50.90 Crohn's disease, unspecified, without complications; E07.9 Disorder of thyroid, unspecified; Z86.73 Personal history of transient ischemic attack (TIA), and cerebral infarction without residual deficits; Z88.1 Allergy status to other antibiotic agents; Z87.891 Personal history of nicotine dependence; Z79.899 Other long term (current) drug therapy; Z79.890 Hormone replacement therapy; Z79.01 Long term (current) use of anticoagulants
CPT/HCPCS: 36415; 71046; 71250; 80048; 80076; 82550; 82553; 82803; 83880; 84443; 84484; 85025; 85610; 87040; 93005; 93041; 99285; G0463

== ENCOUNTER → 2019-06-14 | Outpatient (CLI) | payer MEDICARE, OTHER ==
[~2019-06-14] MED LIST changes: +ACET-840 PO; +ACYC1CAP20 PO; +COUM7.5T PO; +CREO3600 PO; +D 202000 PO; +ENOX60IN3 SC; +HYDR-3713 PO; +LEVA750T7 PO; +LEVO750T13 PO; +ONDA8TAB10 PO; +PROV108A INH; +RANI15TA PO; +VITA500038 PO
[2019-06-14 18:57] LABS: INR 1.69; PROTHROMBIN TIME 19.6 SECONDS (11.8-14.0)
== END ==
LOC: M SMT 13:26
PROVIDERS: ATTEND Surgery Vascular Surgery
DX: T82.868A Thrombosis due to vascular prosthetic devices, implants and grafts, initial encounter (principal); Z79.01 Long term (current) use of anticoagulants

== ENCOUNTER → 2019-06-21 | Outpatient (CLI) | payer MEDICARE, OTHER ==
[~2019-06-21] MED LIST changes: -ACET-840 PO; -ACYC1CAP20 PO; -COUM7.5T PO; -CREO3600 PO; -D 202000 PO; -ENOX60IN3 SC; -HYDR-3713 PO; -LEVA750T7 PO; -LEVO750T13 PO; +OMEP40CA2 PO; -OMEP40CA97 PO; -ONDA8TAB10 PO; -PROV108A INH; -RANI15TA PO; -VITA500038 PO
[2019-06-21 13:59] LABS: INR 2.17
== END ==
LOC: M SMT 09:11
PROVIDERS: ATTEND Physician Assistant
DX: Z79.01 Long term (current) use of anticoagulants (principal); T82.868A Thrombosis due to vascular prosthetic devices, implants and grafts, initial encounter

== ENCOUNTER → 2019-06-26 | Outpatient (CLI) | payer MEDICARE, OTHER ==
--- NOTE | 2019-06-26 09:37 | REPVR ---
EXAM: MR Thoracic Spine Without Contrast EXAM DATE/TIME: 06/26/2019 8:58 AM CLINICAL HISTORY: 73 years old, female; Other: Pain HX of multiple myeloma TECHNIQUE: Imaging protocol: Multiplanar magnetic resonance images of the thoracic spine without intravenous contrast. COMPARISON: SR - CT Chest without contrast 06/08/2019 12:18:37 PM FINDINGS: Note assuming 7 cervical vertebral bodies and 12 thoracic vertebral bodies, there appear to be 4 lumbar-type vertebral bodies. There is mild height loss of the T11, T12 and L1 vertebral bodies, all with prior kyphoplasty. There is also mild chronic appearing anterior compression of the T4 vertebral body. Vertebral body heights are otherwise intact. The upper thoracic kyphosis is mildly exaggerated. Alignment is otherwise maintained. The spinal cord appears normal in signal. There are varying degrees of disc desiccation indicating intervertebral disc degeneration. No focal osseous lesion is evident. The visualized mediastinal structures appear unremarkable. A 1.5 cm high T2 signal lesion in the right upper quadrant, partially imaged, corresponds to a renal cyst on the CT. The visualized abdominal structures appear otherwise unremarkable. C6-7: Partially included on the sagittal sequences only, there appears to be a disc osteophyte complex with at least mild right and moderate left neural foraminal narrowing. C7-T1: Small osteophytic ridge leading to very mild bilateral neural foraminal narrowing without significant spinal stenosis. T1-2: Small osteophytic ridge combining with facet arthrosis to lead to very mild left neural foraminal narrowing without significant spinal stenosis. T2-3: Very small broad-based left paracentral protrusion without significant neural foraminal narrowing or spinal stenosis. T3-4: Very small focal right paracentral protrusion without significant neural foraminal narrowing or spinal stenosis. T4-5: Minimal bulge without significant neural foraminal narrowing or spinal stenosis. T5-6: No significant disc displacement. T6-7: Minimal bulge without significant neural foraminal narrowing or spinal stenosis. T7-8: Minimal bulge without significant neural foraminal narrowing or spinal stenosis. T8-9: Minimal bulge without significant neural foraminal narrowing or spinal stenosis. T9-10: Small osteophytic ridge leading to very mild right neural foraminal narrowing without significant spinal stenosis. T10-11: Disc osteophyte complex combining with facet arthrosis to lead to very mild right and mild to moderate left neural foraminal narrowing without significant spinal stenosis. T11-12: Disc osteophyte complex combining with facet arthrosis to lead to very mild right and mild left neural foraminal narrowing without significant spinal stenosis. T12-L1: Disc osteophyte complex combining with facet arthrosis to lead to mild bilateral neural foraminal narrowing without significant spinal stenosis. T12-L1: Included on the sagittal sequences only, there appears to be a disc osteophyte complex leading to mild to moderate right and mild left neural foraminal narrowing. If surgery is considered, recommend level confirmation. IMPRESSION: 1. Multilevel disc desiccation indicating intervertebral disk degeneration with disc displacements as described. 2. Mild chronic loss of the T4, T11, T12 and L1 vertebral bodies, with prior kyphoplasty at T11, T12 and L1. 3. No focal osseous lesion evident. Electronically signed by: Ramiro Robison On 06/26/2019 09:37:24 AM
== END ==
LOC: M RAD 08:06
PROVIDERS: ATTEND Internal Medicine Medical Oncology
DX: M51.35 Other intervertebral disc degeneration, thoracolumbar region (principal)

== ENCOUNTER → 2019-06-28 | Outpatient (CLI) | payer MEDICARE, OTHER ==
[2019-06-28 11:06] LABS: INR 2.94; PROTHROMBIN TIME 30.6 SECONDS (11.8-14.0)
== END ==
LOC: M SMT 09:21
PROVIDERS: ATTEND Physician Assistant
DX: T82.868A Thrombosis due to vascular prosthetic devices, implants and grafts, initial encounter (principal); Z79.01 Long term (current) use of anticoagulants

== ENCOUNTER → 2019-07-06 | Outpatient (CLI) | payer MEDICARE, OTHER ==
[2019-07-06 14:24] LABS: INR 1.32; PROTHROMBIN TIME 16.1 SECONDS (11.8-14.0)
== END ==
LOC: M SMT 09:03
PROVIDERS: ATTEND Physician Assistant
DX: T82.868A Thrombosis due to vascular prosthetic devices, implants and grafts, initial encounter (principal); Z79.01 Long term (current) use of anticoagulants; Y83.1 Surgical operation with implant of artificial internal device as the cause of abnormal reaction of the patient, or of later complication, without mention of misadventure at the time of the procedure

== ENCOUNTER → 2019-07-12 | Outpatient (CLI) | payer MEDICARE, OTHER ==
[~2019-07-12] MED LIST changes: +CREO3600 PO; +VITA500038 PO
[2019-07-12 14:19] LABS: INR 1.55; PROTHROMBIN TIME 18.3 SECONDS (11.8-14.0)
== END ==
LOC: M SMT 09:26
PROVIDERS: ATTEND Physician Assistant
DX: T82.868A Thrombosis due to vascular prosthetic devices, implants and grafts, initial encounter (principal); Z79.01 Long term (current) use of anticoagulants

== ENCOUNTER → 2019-07-19 | Outpatient (CLI) | payer MEDICARE, OTHER ==
[~2019-07-19] MED LIST changes: +ACET-840 PO; +ACYC1CAP20 PO; +COUM7.5T PO; +D 202000 PO; +ENOX60IN3 SC; +HYDR-3713 PO; +LEVA750T7 PO; +LEVO750T13 PO; -OMEP40CA2 PO; +OMEP40CA97 PO; +ONDA8TAB10 PO; +PROV108A INH; +RANI15TA PO
[2019-07-19 11:37] LABS: INR 2.63
== END ==
LOC: M SMT 09:03
PROVIDERS: ATTEND Physician Assistant
DX: T82.868A Thrombosis due to vascular prosthetic devices, implants and grafts, initial encounter (principal); Z79.01 Long term (current) use of anticoagulants

== ENCOUNTER 2019-07-20 10:28 | Observation (INO) | payer MEDICARE, OTHER ==
[~2019-07-20] VITALS: Ht 162.6 cm; Wt 48.8 kg
[~2019-07-20 10:28] MED LIST changes: -ACET-840 PO; -ACYC1CAP20 PO; -COUM7.5T PO; -D 202000 PO; -ENOX60IN3 SC; -HYDR-3713 PO; -LEVA750T7 PO; -LEVO750T13 PO; +OMEP40CA2 PO; -OMEP40CA97 PO; -ONDA8TAB10 PO; -PROV108A INH; -RANI15TA PO; -VITA500038 PO
[2019-07-20] MEDS ORDERED: NS 1,000 ML IV SCH (10:48)
[2019-07-20] MEDS ORDERED: NALOXONE INJ 2 MG/2 ML SYRINGE (J2310) As Ordered ONE (11:33)
[2019-07-20 11:41] LABS: BASO % 0.2 % (0.0-1.0); EOS % 0.1 % (0.0-3.0); HEMOGLOBIN 12.8 g/dl (12.0-15.5); LYMPH # 0.8 10^3/uL (1.5-5.0); LYMPH % 8.4 % (24.0-44.0); MEAN CORPUSCULAR HEMOGLOBIN 36.2 pg (27.0-33.0); MEAN CORPUSCULAR HGB CONC 33.7 g/dl (32.0-36.5); MEAN CORPUSCULAR VOLUME 107.3 fl (80.0-96.0); MONO # 0.6 10^3/uL (0.0-0.8); NEUTROPHILS # 7.6 10^3/uL (1.5-8.5); NEUTROPHILS % 83.9 % (36.0-66.0); PLATELET COUNT, AUTOMATED 272 10^3/uL (150-450); RED BLOOD COUNT 3.54 10^6/uL (4.00-5.40)
[2019-07-20 11:52] LABS: INR 2.82; PROTHROMBIN TIME 29.6 SECONDS (11.8-14.0)
[2019-07-20 12:11] LABS: ALT/SGPT 36 U/L (12-78); BILIRUBIN,DIRECT 0.2 MG/DL (0.0-0.2); BILIRUBIN,TOTAL 0.8 MG/DL (0.2-1.0); CPK CREATINE PHOSPHOKINASE 65 U/L (26-192); LIPASE 835 U/L (73-393); MB/CK RELATIVE INDEX 1.54 (< OR =4); TOTAL PROTEIN 7.1 GM/DL (6.4-8.2); TROPONIN I < 0.02 NG/ML (< 0.10)
--- NOTE | 2019-07-20 12:32 | ECGEPIP ---
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
[2019-07-20] MEDS: MORPHINE 2 MG/ML 1ML SYRINGE (J2270) IV PRN ×2 (13:12→16:39)
[2019-07-20] MEDS ORDERED: ONDANSETRON 4MG/2ML VIAL (J2405) IV ONE (13:15)
[2019-07-20] MEDS ORDERED: VITA500038 PO (14:00)
[2019-07-20] MEDS ORDERED: ONDANSETRON 4MG/2ML VIAL (J2405) IV PRN (14:00)
[2019-07-20] MEDS ORDERED: LEVO50TA45 PO (14:00)
[2019-07-20] MEDS ORDERED: HEPARIN SOD (PORCINE) 5000 UNITS/ML VIAL SC SCH (14:00)
[2019-07-20] MEDS ORDERED: WARF-23 PO ×2 (14:00)
[2019-07-20] MEDS ORDERED: FISH1000 PO (14:00)
[2019-07-20] MEDS ORDERED: BENA25CA4 PO (14:00)
[2019-07-20] MEDS ORDERED: RENV2TAB PO (14:00)
[2019-07-20] MEDS ORDERED: REST0.05 OU (14:00)
--- NOTE | 2019-07-20 14:41 | HPEPDOC ---
General Date of Admission 07/20/19 Date of Service: Jul 20, 2019 Primary Care Physician: FEROZ FUNES MD [facility] Attending Physician: FLORENCIA EUCEDA MD Chief Complaint The patient is a 74-year-old female admitted with a reason for visit of General Illness. 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 Patient compla ining of abdominal pain since last evening, which is epigastric and location, nonradiating, persistent colicky in nature, associated with nausea not resolving with any food or medication and not exacerbated by food or medication, no fever, shortness of breath or chest pain Home Medications Scheduled Cholecalciferol (Vitamin D3) (Vitamin D3) 5,000 Unit Tablet, 5,000 UNIT PO QHS, (Reported) Cyclosporine (Restasis) 0.05% Droperette, 1 DROP OU BID, (Reported) Dexamethasone (Dexamethasone) 4 Mg Tab, 12 MG PO ASDIRECTED TAKES DAYS 1,8,15,22 - LAST DOSE WAS DAY 1 OF CYCLE Diphenhydramine HCl (Benadryl) 25 Mg Capsule, 25 MG PO 2XW, (Reported) TAKE PRIOR TO DIALYSIS ON ,, Ixazomib Citrate (Ninlaro) 3 Mg Cap, 3 MG PO ASDIRECTED TAKES ON DAY 1,8,15 OF 22 DAY CYCLE. LAST DOSE WAS DAY 1 OF CYCLE Levothyroxine Sodium (Levoxyl) 50 Mcg Tablet, 50 MCG PO DAILY, (Reported) Lipase/Protease/Amylase (Creon Dr 36,000 Units Capsule) 1 Each Capsule.dr, 2 CAP PO WM, (Reported) [place]-3 Fatty Acids/Fish Oil (Fish Oil 1,000 mg Capsule) 1 Each Capsule, 1,000 MG PO QHS, (Reported) Sevelamer Carbonate (Renvela) 800 Mg Tablet, 800 MG PO WM, (Reported) Warfarin Sodium (Warfarin Sodium) 5 Mg Tablet, 7.5 MG PO 4XWK, (Reported) QPM: MON, WED, FRI, SAT Warfarin Sodium (Warfarin Sodium) 5 Mg Tablet, 5 MG PO 3XW, (Reported) QPM: TUES, THURS, SUN Allergies Coded Allergies: vancomycin (Verified Allergy, Intermediate, RASH/ITCHING, 03/26/19) Past Medical History Medical History End-stage renal disease on dialysis, multiple myeloma thrombus. 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 Crohn's disease, pancreatitis, melanoma hyperparathyroidism, basal cell carcinoma. Anemia secondary to chronic renal failure, history of recurrent clotting of AV graft and infection status post removal of graft right pneumothorax Surgical History Ileostomy, appendectomy, stem cell transplant, melanoma and basal cell carcinoma resection. Permacath placement and fistula/graft Family History Significant Family History: Other (father had emphysema and mother had CAD, diabetes and CVA) Social History * Smoker: Denies Alcohol: Denies Drugs: denies A-FIB/CHADSVASC A-FIB History Current/History of A-Fib/PAF?: No Current PO Anticoag Therapy: Yes Review of Systems Constitutional: Denies: Chills, Fever, Malaise, Night Sweats, Weakness, Fatigue, Weight Loss, Lethargy, Other Eyes: Denies: Pain, Vision change, Conjunctivae inflammation, Eyelid inflammation, Redness, Other ENT: Denies: Head Aches, Ear Pain, Dysphagia, Sinus Congestion, Post Nasal Drip, Sore Throat, Epistaxis, Other Symptoms Skin: Denies: Rash, Lesions, Jaundice, Bruising, Itching, Dry, Breakdown, Nail Changes, Other Pulmonary: Denies: Dyspnea, Cough, Pleuritic Chest Pain, Other Symptoms Cardiovascular: Denies: Chest Pain, Palpitations, Orthopnea, Paroxysmal Noc. Dyspnea, Edema, Lt Headedness, Other Symptoms Gastrointestinal: Reports: Abdominal Pain Genitourinary: Denies: Dysuria, Frequency, Incontinence, Hematuria, Retention, Other Symptoms Hematologic: Denies: Bruising, Bleeding Excessively, Petecchia, Purpura, Enlarged Lymph Nodes, Other Hematologic Endocrine: Denies: Polydipsia, Polyphagia, Polyuria, Heat Intolerance, Cold Intolerance, Other Endocrine Sx Musculoskeletal: Denies: Neck Pain, Back Pain, Shoulder Pain, Arm Pain, Hand Pain, Leg Pain, Foot Pain, Joint Pain, Muscle Pain, Spasms, Other Symptoms Neurological: Denies: Weakness, Numbness, Incoordination, Change in speech, Confusion, Seizures, Other Symptoms Psych: Denies: Mood Normal, Anxiety, Depression, Memory Issues, Thoughts of Self Harm, Anger, Thoughts of Harming Other, Other Psych Physical Examination General Exam: Positive: Alert Eye Exam: Positive: PERRLA, Conjunctiva & lids normal ENT Exam: Positive: Atraumatic Neck Exam: Positive: Supple Chest Exam: Positive: Clear to auscultation, Normal air movement Heart Exam: Positive: Rate Normal, Normal S1 Abdomen Exam: Positive: Normal bowel sounds, Soft Extremity Exam: Positive: Normal pulses Skin Exam: Positive: Nl turgor and temperature Neuro Exam: Positive: Strength at 5/5 X4 ext, Sensation Intact Psych Exam: Positive: Mental status NL, Mood NL Vital Signs Vital Signs Date Time Temp Pulse Resp B/P (MAP) Pulse Ox O2 Delivery O2 Flow Rate FiO2 07/20/19 13:55 18 07/20/19 13:30 74 88/51 (63) 97 Room Air 07/20/19 10:37 97.7 Laboratory Data Labs 24H Laboratory Tests 2 07/20/19 11:22: Immature Granulocyte % (Auto) 0.4, White Blood Count 9.0, Red Blood Count 3.54L, Hemoglobin 12.8, Hematocrit 38.0, Mean Corpuscular Volume 107.3H, Mean Corpuscular Hemoglobin 36.2H, Mean Corpuscular Hemoglobin Concent 33.7, Red Cell Distribution Width 15.6H, Platelet Count 272, Neutrophils (%) (Auto) 83.9H, Lymphocytes (%) (Auto) 8.4L, Monocytes (%) (Auto) 7.0H, Eosinophils (%) (Auto) 0.1, Basophils (%) (Auto) 0.2, Neutrophils # (Auto) 7.6, Lymphocytes # (Auto) 0.8L, Monocytes # (Auto) 0.6, Eosinophils # (Auto) 0.0, Basophils # (Auto) 0.0, Nucleated Red Blood Cells % (auto) 0.0, Prothrombin Time 29.6H, Prothromb Time International Ratio 2.82, Lactic Acid Level 3.2*H, Aspartate Amino Transf (AST/SGOT) 31, Alanine Aminotransferase (ALT/SGPT) 36, Alkaline Phosphatase 76, Total Bilirubin 0.8, Direct Bilirubin 0.2, Total Creatine Kinase 65, Creatine Kinase MB 1.0, Creatine Kinase MB Relative Index 1.54, Troponin I < 0.02, Total Protein 7.1, Albumin 4.0, Albumin/Globulin Ratio 1.29, Lipase 835H 07/20/19 11:27: POC Glucose (Misc Panel) 88, POC Sodium (Misc Panel) 132L, POC Potassium (Misc Panel) 4.4, POC Chloride (Misc Panel) 97L, POC Total CO2 (Misc Panel) 25.0, POC Blood Urea Nitrogen (Misc Panel 47H, POC Ionized Calcium (Misc Panel) 4.2L, POC Creatinine (Misc Panel) 6.8H, POC Hematocrit (Misc Panel) 37.0L CBC/BMP Laboratory Tests 07/20/19 11:22 Red Blood Count 3.54 L, Mean Corpuscular Volume 107.3 H, Mean Corpuscular Hemoglobin 36.2 H, Mean Corpuscular Hemoglobin Concent 33.7, Red Cell Distribution Width 15.6 H, Neutrophils (%) (Auto) 83.9 H, Lymphocytes (%) (Auto) 8.4 L, Monocytes (%) (Auto) 7.0 H, Eosinophils (%) (Auto) 0.1, Basophils (%) (Auto) 0.2, Neutrophils # (Auto) 7.6, Lymphocytes # (Auto) 0.8 L, Monocytes # (Auto) 0.6, Eosinophils # (Auto) 0.0, Basophils # (Auto) 0.0 Microbiology Microbiology 07/20/19 Blood Culture, Received Pending 07/20/19 Blood Culture, Received Pending 07/20/19 Gastrointestinal Tract Panel (PCR) - Final, Complete Problems (1) Acute pancreatitis Status: Acute Problem Text: DC IV fluids secondary to patient on hemodialysis Clear liquid diet Morphine sulfate 2 mg IV every 3 hours when necessary for pain Zofran 4 mg IV every 4 hours when necessary for pain Repeat lipase in a.m. 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 Granger. Once she is discharged (5) ESRD (end stage renal disease) on dialysis Status: Chronic Problem Text: End-stage renal disease on hemodialysis Friday, Friday, Friday Will request nephrology consultation for hemodialysis to be continued Further recommendations as per nephrology Plan / VTE VTE Prophylaxis Ordered?: Yes FLORENCIA EUCEDA MD Jul 20, 2019 14:41
[2019-07-20 17:00] VITALS: BP 109/58
[2019-07-20] MEDS ORDERED: WARFARIN SOD 5 MG TAB PO SCH (17:00)
[2019-07-20] MEDS: PANTOPRAZOLE 40MG INJ (PROTONIX) (C9113) IV SCH (17:51)
[2019-07-20] MEDS: ACETAMINOPHEN TAB 650MG DOSE (2X325MG) PO PRN (21:13)
[2019-07-21 05:33] VITALS: BP 109/58
[2019-07-21] MEDS: LEVOTHYROXINE 50MCG TABLET (0.05MG) PO SCH (05:33)
[2019-07-21] MEDS: ACETAMINOPHEN TAB 650MG DOSE (2X325MG) PO PRN ×4 (05:33→21:45)
[2019-07-21 06:51] LABS: HEMATOCRIT 34.3 % (36.0-47.0); HEMOGLOBIN 11.4 g/dl (12.0-15.5); MEAN CORPUSCULAR HEMOGLOBIN 35.4 pg (27.0-33.0); MEAN CORPUSCULAR HGB CONC 33.2 g/dl (32.0-36.5); MEAN CORPUSCULAR VOLUME 106.5 fl (80.0-96.0); PLATELET COUNT, AUTOMATED 237 10^3/uL (150-450); RED BLOOD COUNT 3.22 10^6/uL (4.00-5.40); WHITE BLOOD COUNT 4.8 10^3/uL (4.0-10.0)
[2019-07-21 07:02] LABS: INR 3.31; PROTHROMBIN TIME 33.6 SECONDS (11.8-14.0)
[2019-07-21 07:12] LABS: ALBUMIN 3.2 GM/DL (3.2-5.2); BILIRUBIN,TOTAL 0.9 MG/DL (0.2-1.0); CALCIUM LEVEL 8.9 MG/DL (8.8-10.2); CREATININE FOR GFR 6.98 MG/DL (0.55-1.30); GLOMERULAR FILTRATION RATE 6.2 (>39); POTASSIUM SERUM 4.5 MEQ/L (3.5-5.1); TOTAL PROTEIN 6.2 GM/DL (6.4-8.2)
[2019-07-21] MEDS: PANTOPRAZOLE 40MG INJ (PROTONIX) (C9113) IV SCH (08:21)
[2019-07-21] MEDS: MORPHINE 4 MG/ML 1ML VIAL/SYRINGE (J2270) IV PRN (08:23)
[2019-07-21] MEDS ORDERED: diphenhydrAMINE 25 MG CAP PO SCH (09:00)
--- NOTE | 2019-07-21 11:01 | IPNPDOC ---
Subjective Date Seen The patient was seen on 07/21/19. Subjective Chief Complaint/HPI Patient is still in some abdominal pain, with some nausea but no vomiting General: Denies: ROS Unobtainable, Chills, Night Sweats, Fatigue, Malaise, Normal Appetite, Other Symptoms Constitutional: Denies: Chills, Fever, Malaise, Night Sweats, Weakness, Fatigue, Weight Loss, Lethargy, Other Skin: Denies: Rash, Lesions, Jaundice, Bruising, Itching, Dry, Breakdown, Nail Changes, Other Pulmonary: Denies: Dyspnea, Cough, Pleuritic Chest Pain, Other Symptoms Cardiovascular: Denies: Chest Pain, Palpitations, Orthopnea, Paroxysmal Noc. D yspnea, Edema, Lt Headedness, Other Symptoms Gastrointestinal: Reports: Nausea, Abdominal Pain; Denies: Vomiting, Diarrhea, Constipation, Melena, Hematochezia, Other Symptoms Musculoskeletal: Denies: Neck Pain, Back Pain, Shoulder Pain, Arm Pain, Hand Pa in, Leg Pain, Foot Pain, Joint Pain, Muscle Pain, Spasms, Other Symptoms Neurological: Denies: Weakness, Numbness, Incoordination, Change in speech, Confusion, Seizures, Other Symptoms Objective Physical Examination ENT Exam: Positive: Atraumatic Neck Exam: Positive: Supple Chest Exam: Positive: Clear to auscultation, Normal air movement Heart Exam: Positive: Rate Normal, Normal S1 Abdomen Exam: Positive: Normal bowel sounds, Soft Extremity Exam: Positive: Normal pulses Skin Exam: Positive: Nl turgor and temperature Neuro Exam: Positive: Strength at 5/5 X4 ext, Sensation Intact Psych Exam: Positive: Mental status NL, Mood NL Assessment /Plan Problems (1) Acute pancreatitis Status: Acute Problem Text: DC IV fluids secondary to patient on hemodialysis Clear liquid diet Morphine sulfate 2 mg IV every 3 hours when necessary for pain Zofran 4 mg IV every 4 hours when necessary for pain Lipase is still elevated. We will continue monitoring and repeat lipase in a.m. VT prophylaxis, patient is already on Coumadin with therapeutic INR Activity as tolerated (2) Lactic acidosis Status: Resolved Problem Text: Most likely secondary to acute pancreatitis as well as history of end-stage renal disease on hemodialysis Lactic acidosis is resolved with serum lactic acid level of 1.4. 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 Granger. Once she is discharged (5) ESRD (end stage renal disease) on dialysis Status: Chronic Problem Text: End-stage renal disease on hemodialysis Friday, Friday, Friday Will request nephrology consultation for hemodialysis to be continued Further recommendations as per nephrology Plan/VTE VTE Prophylaxis Ordered?: Yes VS, I&O, 24H, Fishbone Vital Signs/I&O Vital Signs Date Time Temp Pulse Resp B/P (MAP) Pulse Ox O2 Delivery O2 Flow Rate FiO2 07/21/19 08:23 18 07/21/19 05:33 97.7 68 109/58 (75) 97 07/20/19 16:30 Room Air I&O- Last 24 Hours up to 6 AM 07/21/19 06:00 Intake Total 900 ml Output Total 225 ml Balance 675 ml Laboratory Data 24H LABS Laboratory Tests 2 07/20/19 11:22: Immature Granulocyte % (Auto) 0.4, White Blood Count 9.0, Red Blood Count 3.54L, Hemoglobin 12.8, Hematocrit 38.0, Mean Corpuscular Volume 107.3H, Mean Corpuscular Hemoglobin 36.2H, Mean Corpuscular Hemoglobin Concent 33.7, Red Cell Distribution Width 15.6H, Platelet Count 272, Neutrophils (%) (Auto) 83.9H, Lymphocytes (%) (Auto) 8.4L, Monocytes (%) (Auto) 7.0H, Eosinophils (%) (Auto) 0.1, Basophils (%) (Auto) 0.2, Neutrophils # (Auto) 7.6, Lymphocytes # (Auto) 0.8L, Monocytes # (Auto) 0.6, Eosinophils # (Auto) 0.0, Basophils # (Auto) 0.0, Nucleated Red Blood Cells % (auto) 0.0, Prothrombin Time 29.6H, Prothromb Time International Ratio 2.82, Lactic Acid Level 3.2*H, Aspartate Amino Transf (AST/SGOT) 31, Alanine Aminotransferase (ALT/SGPT) 36, Alkaline Phosphatase 76, Total Bilirubin 0.8, Direct Bilirubin 0.2, Total Creatine Kinase 65, Creatine Kinase MB 1.0, Creatine Kinase MB Relative Index 1.54, Troponin I < 0.02, Total Protein 7.1, Albumin 4.0, Albumin/Globulin Ratio 1.29, Lipase 835H 07/20/19 11:27: POC Glucose (Misc Panel) 88, POC Sodium (Misc Panel) 132L, POC Potassium (Misc Panel) 4.4, POC Chloride (Misc Panel) 97L, POC Total CO2 (Misc Panel) 25.0, POC Blood Urea Nitrogen (Misc Panel 47H, POC Ionized Calcium (Misc Panel) 4.2L, POC Creatinine (Misc Panel) 6.8H, POC Hematocrit (Misc Panel) 37.0L 07/20/19 15:53: Lactic Acid Followup at 4 Hours 2.1*H 07/21/19 06:33: Nucleated Red Blood Cells % (auto) 0.0, Prothrombin Time 33.6H, Prothromb Time International Ratio 3.31, Lactic Acid Level 1.4, Aspartate Amino Transf (AST/SGOT) 22, Alanine Aminotransferase (ALT/SGPT) 26, Alkaline Phosphatase 67, Total Bilirubin 0.9, Total Protein 6.2L, Albumin 3.2, Albumin/Globulin Ratio 1.07, Lipase 829H, Anion Gap 11, Glomerular Filtration Rate 6.2L, Blood Urea Nitrogen 49H, Creatinine 6.98H, Sodium Level 132L, Potassium Level 4.5, Chloride Level 98, Carbon Dioxide Level 23, Calcium Level 8.9, Magnesium Level 2.0 CBC/BMP Laboratory Tests 07/20/19 11:22 Red Blood Count 3.54 L, Mean Corpuscular Volume 107.3 H, Mean Corpuscular Hemoglobin 36.2 H, Mean Corpuscular Hemoglobin Concent 33.7, Red Cell Distribution Width 15.6 H, Neutrophils (%) (Auto) 83.9 H, Lymphocytes (%) (Auto) 8.4 L, Monocytes (%) (Auto) 7.0 H, Eosinophils (%) (Auto) 0.1, Basophils (%) (Auto) 0.2, Neutrophils # (Auto) 7.6, Lymphocytes # (Auto) 0.8 L, Monocytes # (Auto) 0.6, Eosinophils # (Auto) 0.0, Basophils # (Auto) 0.0 07/21/19 06:33 Red Blood Count 3.22 L, Mean Corpuscular Volume 106.5 H, Mean Corpuscular Hemoglobin 35.4 H, Mean Corpuscular Hemoglobin Concent 33.2, Red Cell Distribution Width 15.7 H, Calcium Level 8.9, Aspartate Amino Transf (AST/SGOT) 22, Alanine Aminotransferase (ALT/SGPT) 26, Alkaline Phosphatase 67, Total Bilirubin 0.9, Total Protein 6.2 L, Albumin 3.2 Microbiology Microbiology 07/20/19 Blood Culture, Received Pending 07/20/19 Blood Culture, Received Pending 07/20/19 Gastrointestinal Tract Panel (PCR) - Final, Complete FLORENCIA EUCEDA MD Jul 21, 2019 11:01
[2019-07-21] MEDS ORDERED: HEPARIN 1,000 UNITS/ML 10ML VIAL (FOR RADIOLOGY& DIALYSIS ONLY) IV ONE (12:00)
[2019-07-21] MEDS ORDERED: HEPARIN 1,000 UNITS/ML 10ML VIAL (FOR RADIOLOGY& DIALYSIS ONLY) XX ONE (12:00)
[2019-07-21] MEDS: CREON-24 CAPSULE PO SCH ×2 (13:02→17:25)
[2019-07-21 14:00] VITALS: BP 86/48
[2019-07-21] MEDS ORDERED: WARFARIN SOD 7.5 MG TAB PO SCH (17:00)
--- NOTE | 2019-07-21 18:39 | CR ---
DATE OF CONSULTATION: 07/20/2019 REQUESTING PHYSICIAN: Dr. Chintan Patten CONSULTING PHYSICIAN: Dr. Nelson REASON FOR CONSULTATION: Management of end-stage renal disease, on hemodialysis. CHIEF COMPLAINT: The patient presented to the hospital yesterday with abdominal pain and nausea. HISTORY OF PRESENT ILLNESS: Maggie Escobedo is a 74-year-old female with past medical history of end-stage renal disease, on hemodialysis every Friday, Friday, Friday, history of multiple myeloma, in relapse, currently undergoing chemotherapy, history of Crohn's disease and ileostomy status, multiple other comorbidities as mentioned below. She presented to the hospital yesterday with epigastric pain, which was almost a 9/10 in intensity, constant, associated with nausea, decreased appetite. Pain was radiating to the back. Nothing was helping. She presented to the emergency room, and further evaluation, including CT scan and lipase level, showed that the patient had acute pancreatitis. She was admitted under the hospitalist service. She was started on intravenous (IV) fluids because her lactate level was high on admission, and after IV fluid hydration her lactate levels got better. Today is the patient's regular day of dialysis. Nephrology service consult was requested for help in management of end-stage renal disease and arrangement of hemodialysis. I saw and evaluated the patient today morning during hemodialysis. I had already arranged her hemodialysis, and she was tolerating the hemodialysis procedure well. She reported her pain in abdomen is getting better today as compared with yesterday. She is getting IV pain medications, and she is tolerating the liquid diet now. PAST MEDICAL HISTORY: 1. End-stage renal disease, on hemodialysis every Friday, Friday, Friday. 2. History of multiple myeloma, in relapse, currently on chemotherapy. 3. 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 4. Crohn's disease. 5. History of pancreatitis in the past. 6. History of malignant melanoma. 7. Secondary hyperparathyroidism. 8. 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 9. History of stem cell transplant in the past because of multiple myeloma. PAST SURGICAL HISTORY: 1. Status post colectomy and ileostomy for Crohn's disease. 2. Status post appendectomy. 3. History of melanoma and basal cell carcinoma resections from the skin. 4. Status post right IJ tunneled hemodialysis catheter placement. 5. Status post resection of the AV graft in the left upper arm. ALLERGIES: She is allergic to VANCOMYCIN. FAMILY HISTORY: No significant family history of end-stage renal disease requiring hemodialysis. SOCIAL HISTORY: She lives at home. Denies any smoking, illicit drug abuse, or alcohol abuse. REVIEW OF SYSTEMS: CONSTITUTIONAL: She denies any fevers or chills. EYES: She denies any blurry vision or double vision. ENT: She denies any dysphagia, odynophagia, ear discharge. CARDIOVASCULAR: She denies any chest pain or palpitation. RESPIRATORY: She denies any cough or shortness of breath. GASTROINTESTINAL: She reports abdominal pain, which is getting better. She denies any diarrhea. GENITOURINARY: She denies any dysuria or hematuria. MUSCULOSKELETAL: She denies any easy bleeding or bruising. HEMATOLOGIC/ONCOLOGIC: She reports multiple myeloma, currently undergoing chemotherapy. ENDOCRINE: She reports secondary hyperparathyroidism. SKIN: She denies any rashes or ulcers. CENTRAL NERVOUS SYSTEM: She denies any strokes, seizures, or confusion. PSYCHIATRIC: She denies any depression or anxiety at this time. All other review of systems is negative. PHYSICAL EXAMINATION: GENERAL: The patient is awake, alert, oriented times three, lying in bed. VITAL SIGNS: Temperature is 97.7 degrees Fahrenheit, blood pressure 109/58, pulse is 68, respiratory rate of 18, saturating 97% on room air. HEAD AND NECK: Extraocular muscles intact. Pupils equally round and reactive to light. Mucous membranes are moist. Neck is supple. There is no jugular venous distention (JVD). She is a right internal jugular (IJ) tunneled hemodialysis catheter. CARDIOVASCULAR: S1, S2, regular rate. No edema of the bilateral lower extremities. RESPIRATORY: Chest is clear to auscultation bilaterally. Bilateral equal air entry. No rales or rhonchi. ABDOMEN: Soft. Positive bowel sounds. Ileostomy was noted. MUSCULOSKELETAL: No clubbing or cyanosis. Pulses are 2+. She has a left upper arm scar from the previous AV graft. CENTRAL NERVOUS SYSTEM: No focal deficit. Power is 5/5 in all extremities. PSYCHIATRIC: Normal mood and affect. LABORATORY REVIEW: CBC showed WBC of 4.8, hemoglobin 11.4, platelets of 237. INR is 3.3. BMP showed sodium 132, potassium 4.5, chloride 98, bicarbonate 23, BUN 49, creatinine is 6.9, lactic acid was 3.2 on arrival; it is 1.4 right now. Calcium 8.9. Lipase level was 835 yesterday, 829 today. Microbiology: Blood cultures are pending. Gastrointestinal (GI) panel is negative. CURRENT INPATIENT MEDICATIONS: The patient's medications were all reviewed by me. She was getting IV fluids last night, which have been stopped now. She is on Tylenol as needed, Benadryl as needed, levothyroxine 50 mcg by mouth daily, morphine 2 mg IV every 3 hours as needed for pain, Zofran as needed, pancreatic enzymes 24,000 units with each meal, Protonix 20 mg IV daily, warfarin 7.5 mg by mouth Friday, Friday, Friday and 5 mg on Friday, , Friday. ASSESSMENT: A 74-year-old female with history of end-stage renal disease, on hemodialysis, multiple myeloma, in relapse, Ileostomy status, history of pancreatitis in the past, admitted at this time with acute pancreatitis. PLAN: 1. End-stage renal disease, on hemodialysis. Today is the patient's regular day of dialysis. She is getting dialysis according to her regular regimen. No ultrafiltration will be done because of acute pancreatitis and ileostomy status. 2. Multiple myeloma, relapse. The patient gets and Ninlaro and dexamethasone on the weekends. She can resume the chemotherapy once she is discharged from the hospital. 3. Acute pancreatitis. The patient got IV fluids yesterday. She is tolerating the liquid diet. Pain is being optimized with morphine. Advance diet as tolerated. 4. Hypothyroidism. Continue home dose of levothyroxine 50 mcg by mouth daily. 5. Chronic kidney disease, mineral bone disease. Patient takes Renvela 800 mg by mouth tablets with meals. Continue to hold the Renvela for now while she is nauseated and has pain in abdomen. 6. Thrombosis at the junction of subclavian vein and superior vena cava. The patient continues to be on Coumadin. INR is supratherapeutic. Adjustment of dose is as per primary team. 7. Anemia and end-stage renal disease. Hemoglobin is 11.4, which is optimal. No need of Aranesp at this time. Thank you for involving me in the care of this patient. I shall be happy to follow the patient along with you tomorrow morning.
[2019-07-21 21:26] VITALS: BP 82/58
[2019-07-22] MEDS: MORPHINE 4 MG/ML 1ML VIAL/SYRINGE (J2270) IV PRN (01:33)
[2019-07-22] MEDS: LEVOTHYROXINE 50MCG TABLET (0.05MG) PO SCH (06:43)
[2019-07-22] MEDS: ACETAMINOPHEN TAB 650MG DOSE (2X325MG) PO PRN (06:44)
[2019-07-22 07:05] VITALS: BP 94/41
[2019-07-22 07:17] LABS: BASO % 0.2 % (0.0-1.0); EOS # 0.1 10^3/uL (0.0-0.5); EOS % 0.8 % (0.0-3.0); HEMATOCRIT 35.2 % (36.0-47.0); HEMOGLOBIN 11.5 g/dl (12.0-15.5); LYMPH % 15.4 % (24.0-44.0); MEAN CORPUSCULAR HEMOGLOBIN 36.1 pg (27.0-33.0); MEAN CORPUSCULAR HGB CONC 32.7 g/dl (32.0-36.5); MEAN CORPUSCULAR VOLUME 110.3 fl (80.0-96.0); MONO # 0.4 10^3/uL (0.0-0.8); MONO % 6.5 % (0.0-5.0); NEUTROPHILS # 5.1 10^3/uL (1.5-8.5); NEUTROPHILS % 76.5 % (36.0-66.0); PLATELET COUNT, AUTOMATED 269 10^3/uL (150-450); RED BLOOD COUNT 3.19 10^6/uL (4.00-5.40); WHITE BLOOD COUNT 6.6 10^3/uL (4.0-10.0)
[2019-07-22 07:27] LABS: INR 4.15; PROTHROMBIN TIME 40.2 SECONDS (11.8-14.0)
[2019-07-22 07:49] LABS: ALBUMIN 3.2 GM/DL (3.2-5.2); BILIRUBIN,TOTAL 0.9 MG/DL (0.2-1.0); CALCIUM LEVEL 8.5 MG/DL (8.8-10.2); CREATININE FOR GFR 4.92 MG/DL (0.55-1.30); GLOMERULAR FILTRATION RATE 9.2 (>39); POTASSIUM SERUM 3.9 MEQ/L (3.5-5.1); TOTAL PROTEIN 6.3 GM/DL (6.4-8.2)
[2019-07-22] MEDS: CREON-24 CAPSULE PO SCH (08:06)
[2019-07-22] MEDS: PANTOPRAZOLE 40MG INJ (PROTONIX) (C9113) IV SCH (08:06)
--- NOTE | 2019-07-22 13:18 | DS.PDOC ---
Discharge Summary General Date of Admission Jul 20, 2019 at 10:29 Date of Discharge 07/22/19 Attending Physician: FLORENCIA EUCEDA MD Discharge Summary PROCEDURES PERFORMED DURING STAY: None. ADMITTING DIAGNOSES: 1. Acute pancreatitis. DISCHARGE DIAGNOSES: 1. Acute pancreatitis, lactic acidosis, end-stage renal disease on dialysis, multiple myeloma, Crohn's disease]. COMPLICATIONS/CHIEF COMPLAINT: Abdominal Pain Pancreatitis. 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 Patient complaining of abdominal pain since last evening, which is epigastric and location, nonradiating, persistent colicky in nature, associated with nausea not resolving with any food or medication and not exacerbated by food or medication, no fever, shortness of breath or chest pain. HOSPITAL COURSE: Initially patient was admitted, was given some IV fluids with which were later DC'd as patient is a dialysis patient and wanted to avoid fluid overload. Patient was started on clear liquid diets bowel rest was initiated. Patient received morphine 2 mg IV every 3 hours and Zofran 4 mg IV every 4 hours for pain and nausea, vomiting Progressively patient felt better and just started tolerating oral feeding. Yesterday, patient lipase today is essentially within normal limits. Patient is asymptomatic. No abdominal pain, nausea, vomiting, eating her food without any problems and she can be discharged home and follow with her PCP and nephrology in one week. Patient did receive her dialysis while she was admitted as inpatient . DISCHARGE MEDICATIONS: Please see below. ALLERGIES: Please see below. PHYSICAL EXAMINATION ON DISCHARGE: VITAL SIGNS: Please see below. GENERAL: Within normal limits HEENT: PERRLA, extraocular muscles intact NECK: Supple CARDIOVASCULAR EXAMINATION: S1, S2, regular RESPIRATORY EXAMINATION: Clear to A&P ABDOMINAL EXAMINATION: , Soft, nontender, bowel sounds present EXTREMITIES: No clubbing, cyanosis, edema SKIN: Normal NEUROLOGICAL EXAMINATION: . No focal motor sensory deficit PSYCHIATRIC EXAMINATION: No depression, anxiety LABORATORY DATA: Please see below. IMAGING: None PROGNOSIS: Good ACTIVITY: As tolerated. DIET: As tolerated DISCHARGE PLAN: Follow with PCP and nephrology in one week DISPOSITION: 01 Home, Self-Care. DISCHARGE INSTRUCTIONS: 1. . As per discharge instructions ITEMS TO FOLLOWUP ON ON OUTPATIENT: 1. . Follow with PCP and nephrology in one week DISCHARGE CONDITION: Stable. TIME SPENT ON DISCHARGE: 36 minutes. Vital Signs/I&Os Vital Signs Date Time Temp Pulse Resp B/P (MAP) Pulse Ox O2 Delivery O2 Flow Rate FiO2 07/22/19 07:05 97.5 94 18 94/41 (58) 96 07/20/19 16:30 Room Air I&O- Last 24 Hours up to 6 AM 07/22/19 06:00 Intake Total 2100 ml Output Total 1250 ml Balance 850 ml Laboratory Data Labs 24H Laboratory Tests 2 07/22/19 06:34: Immature Granulocyte % (Auto) 0.6, White Blood Count 6.6, Red Blood Count 3.19L, Hemoglobin 11.5L, Hematocrit 35.2L, Mean Corpuscular Volume 110.3H, Mean Corpuscular Hemoglobin 36.1H, Mean Corpuscular Hemoglobin Concent 32.7, Red Cell Distribution Width 15.5H, Platelet Count 269, Neutrophils (%) (Auto) 76.5H, Lymphocytes (%) (Auto) 15.4L, Monocytes (%) (Auto) 6.5H, Eosinophils (%) (Auto) 0.8, Basophils (%) (Auto) 0.2, Neutrophils # (Auto) 5.1, Lymphocytes # (Auto) 1.0L, Monocytes # (Auto) 0.4, Eosinophils # (Auto) 0.1, Basophils # (Auto) 0.0, Nucleated Red Blood Cells % (auto) 0.0, Prothrombin Time 40.2H, Prothromb Time International Ratio 4.15, Anion Gap 11, Glomerular Filtration Rate 9.2L, Blood Urea Nitrogen 26H, Creatinine 4.92H, Sodium Level 134L, Potassium Level 3.9, Chloride Level 99, Carbon Dioxide Level 24, Calcium Level 8.5L, Aspartate Amino Transf (AST/SGOT) 301H, Alanine Aminotransferase (ALT/SGPT) 119H, Alkaline Phosphatase 82, Total Bilirubin 0.9, Total Protein 6.3L, Albumin 3.2, Albumin/Globulin Ratio 1.03, Lipase 378 CBC/BMP Laboratory Tests 07/22/19 06:34 Red Blood Count 3.19 L, Mean Corpuscular Volume 110.3 H, Mean Corpuscular Hem oglobin 36.1 H, Mean Corpuscular Hemoglobin Concent 32.7, Red Cell Distribution Width 15.5 H, Neutrophils (%) (Auto) 76.5 H, Lymphocytes (%) (Auto) 15.4 L, Monocytes (%) (Auto) 6.5 H, Eosinophils (%) (Auto) 0.8, Basophils (%) (Auto) 0.2, Neutrophils # (Auto) 5.1, Lymphocytes # (Auto) 1.0 L, Monocytes # (Auto) 0.4, Eosinophils # (Auto) 0.1, Basophils # (Auto) 0.0, Calcium Level 8.5 L, Aspartate Amino Transf (AST/SGOT) 301 H, Alanine Aminotransferase (ALT/SGPT) 119 H, Alkaline Phosphatase 82, Total Bilirubin 0.9, Total Protein 6.3 L, Albumin 3.2 Microbiology Microbiology 07/20/19 Blood Culture - Preliminary, Resulted No Growth after 48 hours. All Specime... 07/20/19 Blood Culture - Preliminary, Resulted No Growth after 48 hours. All Specime... 07/20/19 Gastrointestinal Tract Panel (PCR) - Final, Complete Discharge Medications Scheduled Cholecalciferol (Vitamin D3) (Vitamin D3) 5,000 Unit Tablet, 5,000 UNIT PO QHS, (Reported) Cyclosporine (Restasis) 0.05% Droperette, 1 DROP OU BID, (Reported) Dexamethasone (Dexamethasone) 4 Mg Tab, 12 MG PO ASDIRECTED TAKES DAYS 1,8,15,22 - LAST DOSE WAS DAY 1 OF CYCLE Diphenhydramine HCl (Benadryl) 25 Mg Capsule, 25 MG PO 2XW, (Reported) TAKE PRIOR TO DIALYSIS ON M,W,F Ixazomib Citrate (Ninlaro) 3 Mg Cap, 3 MG PO ASDIRECTED TAKES ON DAY 1,8,15 OF 22 DAY CYCLE. LAST DOSE WAS DAY 1 OF CYCLE Levothyroxine Sodium (Levoxyl) 50 Mcg Tablet, 50 MCG PO DAILY, (Reported) Lipase/Protease/Amylase (Creon Dr 36,000 Units Capsule) 1 Each Capsule.dr, 2 CAP PO WM, (Reported) Clare-3 Fatty Acids/Fish Oil (Fish Oil 1,000 mg Capsule) 1 Each Capsule, 1,000 MG PO QHS, (Reported) Sevelamer Carbonate (Renvela) 800 Mg Tablet, 800 MG PO WM, (Reported) Warfarin Sodium (Warfarin Sodium) 5 Mg Tablet, 7.5 MG PO 4XWK, (Reported) QPM: MON, WED, FRI, SAT Warfarin Sodium (Warfarin Sodium) 5 Mg Tablet, 5 MG PO 3XW, (Reported) QPM: TUES, THURS, SUN Allergies Coded Allergies: vancomycin (Verified Allergy, Intermediate, RASH/ITCHING, 03/26/19) FLORENCIA EUCEDA MD Jul 22, 2019 13:18
[2019-08-12] MEDS ORDERED: ONDA8TAB7 PO (16:38)
== END 2019-07-22 08:50 | disposition home or self-care (01) ==
LOC: M ED 10:28 → M ED INP 10:29 → M MS5PR 16:50
PROVIDERS: ADMIT Internal Medicine; ATTEND Internal Medicine
DX: K85.90 Acute pancreatitis without necrosis or infection, unspecified (principal); E87.2 Acidosis; N18.6 End stage renal disease; Z79.899 Other long term (current) drug therapy; C90.02 Multiple myeloma in relapse; K50.90 Crohn's disease, unspecified, without complications; E21.3 Hyperparathyroidism, unspecified; D63.1 Anemia in chronic kidney disease; I82.210 Acute embolism and thrombosis of superior vena cava; Z79.01 Long term (current) use of anticoagulants; Z86.73 Personal history of transient ischemic attack (TIA), and cerebral infarction without residual deficits; Z99.2 Dependence on renal dialysis
CPT/HCPCS: 36415; 80047; 80053; 82550; 82553; 83605; 83615; 83690; 83735; 83883; 84165; 84484; 85025; 85027; 85610; 87040; 87507; 93005; 93041; 96374; 96375; 96376; 99285; C9113; G0257; G0378; G0463; J2270

== ENCOUNTER → 2019-07-26 | Outpatient (CLI) | payer MEDICARE, OTHER ==
[~2019-07-26] MED LIST changes: +ACET-840; +VITA500038 PO
[2019-07-26 13:45] LABS: INR 3.52; PROTHROMBIN TIME 35.3 SECONDS (11.8-14.0)
== END ==
LOC: M SMT 09:20
PROVIDERS: ATTEND Physician Assistant
DX: T82.868A Thrombosis due to vascular prosthetic devices, implants and grafts, initial encounter (principal); Z79.01 Long term (current) use of anticoagulants

== ENCOUNTER 2019-07-28 14:16 | Emergency (ER) | payer MEDICARE, OTHER ==
[~2019-07-28] VITALS: Ht 162.6 cm; Wt 46.3 kg
[~2019-07-28 14:16] MED LIST changes: -ACET-840
[2019-07-28] MEDS ORDERED: COUM1TAB17 PO (14:39)
[2019-07-28] MEDS ORDERED: ACET-840 (14:39)
[2019-07-28] MEDS ORDERED: IPRATROPIUM 0.5MG/ALBUTEROL 2.5MG INH SOL UD 3ML (DUONEB)(J7620) NEB ONE (14:45)
[2019-07-28 15:16] LABS: ABG BASE EXCESS 5.2 (-2.0-2.0); ABG HCO3 27.8 MEQ/L (22.0-26.0); ABG O2 SATURATION 96.4 % (95.0-99.0); ABG PARTIAL PRESSURE CO2 34.2 mmHg (35.0-45.0); ABG PARTIAL PRESSURE O2 78.7 mmHg (75.0-100.0); ABG STANDARD HCO3 29.1 MEQ/L (22.0-26.0); ABG TOTAL CO2 28.9 MEQ/L (23.0-31.0); ABG pH (ARTERIAL) 7.528 UNITS (7.350-7.450)
[2019-07-28 15:18] LABS: BASO % 0.1 % (0.0-1.0); EOS % 0.3 % (0.0-3.0); HEMATOCRIT 37.1 % (36.0-47.0); HEMOGLOBIN 12.6 g/dl (12.0-15.5); LYMPH # 0.7 10^3/uL (1.5-5.0); LYMPH % 9.6 % (24.0-44.0); MEAN CORPUSCULAR HEMOGLOBIN 36.4 pg (27.0-33.0); MEAN CORPUSCULAR VOLUME 107.2 fl (80.0-96.0); MONO # 0.8 10^3/uL (0.0-0.8); MONO % 11.5 % (0.0-5.0); NEUTROPHILS # 5.7 10^3/uL (1.5-8.5); NEUTROPHILS % 78.1 % (36.0-66.0); PLATELET COUNT, AUTOMATED 229 10^3/uL (150-450); RED BLOOD COUNT 3.46 10^6/uL (4.00-5.40); WHITE BLOOD COUNT 7.3 10^3/uL (4.0-10.0)
[2019-07-28 15:25] LABS: INFLUENZA A AMPLIFICATION NEGATIVE (NEGATIVE); INFLUENZA B AMPLIFICATION NEGATIVE (NEGATIVE)
[2019-07-28] MEDS ORDERED: ISOVUE-370 76% 100ML VIAL (Q9967) As Ordered ONE (15:31)
[2019-07-28 15:42] LABS: ALBUMIN 3.4 GM/DL (3.2-5.2); BILIRUBIN,DIRECT 0.2 MG/DL (0.0-0.2); BILIRUBIN,TOTAL 1.5 MG/DL (0.2-1.0); CALCIUM LEVEL 9.1 MG/DL (8.8-10.2); CREATININE FOR GFR 4.52 MG/DL (0.55-1.30); GLOMERULAR FILTRATION RATE 10.2 (>39); POTASSIUM SERUM 4.4 MEQ/L (3.5-5.1)
--- NOTE | 2019-07-28 16:25 | REP ---
CT ANGIOGRAM CHEST: TECHNIQUE: Axial contrast enhanced images from the thoracic inlet to the upper abdomen using 100 mL Isovue 370 intravenous contrast material with multiplanar reformations. There is no CT evidence of pulmonary embolism. There is atherosclerotic calcification of the thoracic aorta without aneurysm. The heart is normal in size. There is no pleural or pericardial effusion. There is no mediastinal, hilar or chest wall lymphadenopathy. No infiltrates are seen. Multiple collateral venous structures are seen in the right chest wall. In the visualized upper abdomen, small kidneys are seen with small cysts. IMPRESSION: No CT evidence of pulmonary embolism or aortic dissection. No acute infiltrate or pleural effusion. Electronically Signed by Justin Ugalde MD 07/29/2019 09:00 A
[2019-07-28 16:45] VITALS: BP 100/57
--- NOTE | 2019-07-28 20:47 | ECGEPIP ---
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
[2019-08-12] MEDS ORDERED: ONDA8TAB7 PO (16:38)
== END 2019-07-28 17:08 | disposition home or self-care (01) ==
LOC: M ED 14:16
DX: R06.02 Shortness of breath (principal); C90.00 Multiple myeloma not having achieved remission; Z79.899 Other long term (current) drug therapy; Z88.1 Allergy status to other antibiotic agents; M51.34 Other intervertebral disc degeneration, thoracic region; M85.88 Other specified disorders of bone density and structure, other site; R06.00 Dyspnea, unspecified; Z87.891 Personal history of nicotine dependence
CPT/HCPCS: 36415; 71046; 71275; 80048; 80076; 82803; 83880; 85025; 87040; 87502; 93005; 93041; 94640; 99285; Q9967

== ENCOUNTER → 2019-07-28 | Outpatient (CLI) | payer MEDICARE, OTHER ==
--- NOTE | 2019-07-28 10:22 | REP ---
CHEST X-RAY: Two views. HISTORY: Dyspnea. COMPARISON CHEST X-RAY: June 08, 2019. FINDINGS: A right sided tunneled central venous catheter is noted in place with its tip in the expected location of the superior vena cava. There is a vascular stent in the left axillary soft tissues and there are surgical clips in the right axillary soft tissues. The patient is status post vertebroplasty in the lower thoracic and upper lumbar spine segments at three adjacent levels at the bottom of the imaging field of view. Thoracic vertebral body heights are otherwise preserved. There is degenerative disc disease in the thoracic spine. The aorta is slightly calcific. There is diffuse osteopenia. The heart is not enlarged. Lung george are clear. Pleural angles are sharp. IMPRESSION: No active disease. Central venous line and postsurgical changes as above. Electronically Signed by Dejon Daniel MD 07/28/2019 11:13 A
== END ==
LOC: M SMT 09:50
PROVIDERS: ATTEND Nurse Practitioner Family
DX: M51.34 Other intervertebral disc degeneration, thoracic region (principal); M85.88 Other specified disorders of bone density and structure, other site; R06.00 Dyspnea, unspecified

== ENCOUNTER → 2019-08-02 | Outpatient (CLI) | payer MEDICARE, OTHER ==
[~2019-08-02] MED LIST changes: +ACET-840
[2019-08-02 11:30] LABS: INR 2.29
== END ==
LOC: M SMT 08:51
PROVIDERS: ATTEND Physician Assistant
DX: T82.868A Thrombosis due to vascular prosthetic devices, implants and grafts, initial encounter (principal)

== ENCOUNTER 2019-08-07 21:38 | Emergency (ER) | payer MEDICARE, OTHER ==
[~2019-08-07] VITALS: Ht 162.6 cm; Wt 46.8 kg
[2019-08-07] MEDS ORDERED: ENOX60IN3 SC (21:55)
--- NOTE | 2019-08-07 23:15 | REPVR ---
PROCEDURE INFORMATION: Exam: US Left Non-Vascular Joint or Other Extremity Structure, Limited Upper Extremity Exam date and time: 08/07/2019 10:22 PM Clinical history: 74 years old, female; Pain; Upper arm; Left; Prior surgery; Surgery date: 1-6 months; Surgery type: Patient had graft in arm removed medial to area scanned; Additional info: Left upper arm swelling TECHNIQUE: Imaging protocol: Left US Non-Vascular Joint or Other Extremity Structure. Limited exam of the upper extremity. COMPARISON: No relevant prior studies available. FINDINGS: Soft tissues: Ultrasound of the palpable abnormality in the left upper extremity was performed. A heterogeneously hypoechoic fluid collection with a layering fluid level measuring 2.2 x 0.8 x 0.4 cm was seen at the area of concern. No internal Doppler flow. IMPRESSION: Small heterogeneous fluid collection with layering fluid gradients within the palpable area of concern in the left upper extremity. Findings most suggestive of a small hematoma although sterility is not definitive on ultrasound and a small abscess is not excluded. Electronically signed by: Vincent Zhang On 08/07/2019 23:15:26 PM
[2019-08-07 23:19] LABS: HEMATOCRIT 33.6 % (36.0-47.0); HEMOGLOBIN 11.4 g/dl (12.0-15.5); MEAN CORPUSCULAR HEMOGLOBIN 36.8 pg (27.0-33.0); MEAN CORPUSCULAR HGB CONC 33.9 g/dl (32.0-36.5); MEAN CORPUSCULAR VOLUME 108.4 fl (80.0-96.0); PLATELET COUNT, AUTOMATED 147 10^3/uL (150-450); WHITE BLOOD COUNT 3.9 10^3/uL (4.0-10.0)
[2019-08-07 23:29] LABS: INR 1.4; PROTHROMBIN TIME 16.9 SECONDS (11.8-14.0)
[2019-08-07 23:30] LABS: PARTIAL THROMBOPLASTIN TIME 44.3 SECONDS (25.0-38.4)
[2019-08-08 00:32] LABS: CALCIUM LEVEL 8.2 MG/DL (8.8-10.2); CREATININE FOR GFR 6.42 MG/DL (0.55-1.30); GLOMERULAR FILTRATION RATE 6.8 (>39); POTASSIUM SERUM 3.8 MEQ/L (3.5-5.1)
[2019-08-08 01:11] VITALS: BP 99/60
[2019-08-12] MEDS ORDERED: ONDA8TAB7 PO (16:38)
[2019-08-19] MEDS ORDERED: ACYC1CAP20 PO (10:15)
== END 2019-08-08 01:13 | disposition home or self-care (01) ==
LOC: M ED 21:38
DX: M79.81 Nontraumatic hematoma of soft tissue (principal); M79.602 Pain in left arm; Z86.73 Personal history of transient ischemic attack (TIA), and cerebral infarction without residual deficits; N18.6 End stage renal disease; K50.90 Crohn's disease, unspecified, without complications; C90.00 Multiple myeloma not having achieved remission; Z99.2 Dependence on renal dialysis; Z94.84 Stem cells transplant status; Z88.1 Allergy status to other antibiotic agents

== ENCOUNTER → 2019-08-09 | Outpatient (CLI) | payer MEDICARE, OTHER ==
[~2019-08-09] MED LIST changes: +ENOX60IN3 SC; +ISOVUE-300 61% 50ML VIAL (Q9967) As Ordered ONE; +LIDOCAINE 1% MDV 20ML VIAL As Ordered ONE; +MIDAZOLAM INJ 2 MG/2 ML VIAL (J2250) As Ordered ONE; +ONDA8TAB7 PO; +ceFAZolin 1GM INJ (J0690 PER 500MG) As Ordered ONE; +diphenhydrAMINE INJ 50MG/ML VIAL (J1200) As Ordered ONE; +fentaNYL 100 MCG/2 ML INJECTION (J3010) As Ordered ONE
[2019-08-09 10:19] LABS: INR 1.04; PROTHROMBIN TIME 13.4 SECONDS (11.8-14.0)
--- NOTE | 2019-08-09 10:39 | IRHP ---
[facility] IR Pre-Procedure H & P General Date of Service: Aug 09, 2019 Procedure: Same Day Surgery Interval History and Physical I have seen the patient and reviewed last H & P performed within 30 days. There is no significant interval change. History of Present Illness Chief Complaint The patient is a 74-year-old female admitted with a reason for visit of CHEMO. PRE-PROCEDURE DIAGNOSIS: multiple myeloma HEART: normal rate. LUNGS: normal breathing at rest. ASA Classification ASA Classification: III-Severe systemic dis. Mallampati Score: I NPO: Yes Problems with prior sedation: No Obstructive Sleep Apnea: No Plan moderate sedation Allergies Coded Allergies: vancomycin (Verified Allergy, Intermediate, RASH/ITCHING, 03/26/19) Home Medications Scheduled Cholecalciferol (Vitamin D3) (Vitamin D3), 5,000 UNIT PO QHS, (Reported) Cyclosporine (Restasis), 1 DROP OU BID, (Reported) Dexamethasone (Dexamethasone), 12 MG PO ASDIRECTED Diphenhydramine HCl (Benadryl), 25 MG PO 2XW, (Reported) Enoxaparin Sodium (Enoxaparin Sodium), 50 MG SC BID, (Reported) Ixazomib Citrate (Ninlaro), 3 MG PO ASDIRECTED Levothyroxine Sodium (Levoxyl), 50 MCG PO DAILY, (Reported) Lipase/Protease/Amylase (Creon Dr 36,000 Units Capsule), 2 CAP PO WM, (Reported) Benton-3 Fatty Acids/Fish Oil (Fish Oil 1,000 mg Capsule), 1,000 MG PO QHS, (Reported) Sevelamer Carbonate (Renvela), 800 MG PO WM, (Reported) Miscellaneous Medications Acetaminophen (Acetaminophen), (Reported) Discontinued Medications Warfarin Sodium (Coumadin), 1 TAB PO DAILY, (Reported) Discontinued Reason: Pt states not taking VS, I&O, 24H, Fishbone Vital Signs/I&O Vital Signs Date Time Temp Pulse Resp B/P (MAP) Pulse Ox O2 Delivery O2 Flow Rate FiO2 08/09/19 10:10 97.9 80 18 94 Laboratory Data 24H LABS Laboratory Tests 2 08/09/19 09:45: Prothrombin Time 13.4, Prothromb Time International Ratio 1.04 KAREN BROWN MD Aug 09, 2019 10:39
--- NOTE | 2019-08-09 13:16 | POST-OPPD ---
Postoperative Procedure Note Date Of Procedure: Aug 09, 2019 Time Of Procedure: 12:54 PREOPERATIVE DIAGNOSIS: multiple myeloma POSTOPERATIVE DIAGNOSIS: multiple myeloma FINDINGS: occluded SVC. right femoral early placed for chemotherapy PROCEDURE: right femoral early placed for chemotherapy. ready to use SURGEON: kushal ANESTHESIA: mod sed ESTIMATED BLOOD LOSS: < 5 ml COMPLICATIONS: none POSTOPERATIVE CONDITION: stable KAREN BROWN MD Aug 09, 2019 13:15
[2019-08-09 14:39] VITALS: BP 107/57
--- NOTE | 2019-08-09 14:59 | REP ---
IR Gresham catheter insertion under fluoroscopy and ultrasound guidance. IR left internal jugular vein access under ultrasound guidance. IR brachiocephalic venogram. IR Ultrasound of the left neck. IR ultrasound right groin. IR moderate sedation. Clinical information: Multiple myeloma. Needs port for chemotherapy. Physician: Dr. Brush. Procedure: The patient was advised of the benefits, risks and alternatives of the procedure and informed consent was obtained. The time-out was performed with verification of the patient's name, MRN, site of procedure and type of procedure to be performed. The patient was positioned in the supine position on the angiographic table. The site was prepped and draped in the usual sterile fashion. Moderate sedation was performed by the physician including the presence of an independent trained observer that assisted in monitoring the patient's level of consciousness and physiologic status. Following the administration of Versed and Fentanyl, the physician spent 60 minutes of continuous face to face time with the patient. Ultrasound of the left neck reveals a patent and compressible left internal jugular vein. A marble worker radiograph reveals a right sided PermCath, tip at the cavoatrial junction. The neck and anterior chest wall were anesthetized with lidocaine. The left internal jugular vein was accessed using a micro introducer needle under ultrasound guidance, via a lateral approach. The 018 cope wire was advanced into the brachiocephalic vein under fluoroscopy guidance but would not advance further. The needle was removed and a micro introducer sheath was placed. A glide wire was advanced through the micro sheath in order to try to get down to the SVC but failed. Therefore the micro sheath was removed over the wire and a 6-Ghanaian short vascular sheath was advanced over the wire. A venogram was performed from the left brachiocephalic vein and this demonstrates complete occlusion of the superior vena cava and filling of collaterals and the azygos system. A 4-Ghanaian glide cath in conjunction with a Glidewire was inserted through the vascular sheath in an attempt to recanalize the superior vena cava but this was not possible. Therefore, the decision was made to place a right thigh Gresham catheter for chemotherapy. Ultrasound of the right thigh reveals a patent and compressible right femoral vein. A marble worker radiograph reveals surgical clips in the pelvis. The right femoral vein was accessed under ultrasound guidance using a micropuncture kit. An 018 wire was advanced into the inferior vena cava. The needle was removed over the wire and exchanged for a micro sheath. An 035 wire was advanced through the micro sheath into the inferior vena cava and right heart. Incision at the femoral vein access site and right thigh were made using a scalpel. A dual-lumen Rgesham catheter was inserted through the subcutaneous tissues of the right thigh with a tunneling device. The micro introducer sheath was removed and femoral vein puncture site was upsized with dilator. A peel-away sheath was placed over the wire and into the inferior vena cava. The wire and stiffener were removed. The catheter was passed through the femoral vein via the sheath. The peel-away sheath was then removed. The catheter tip was positioned in the inferior vena cava . The puncture site was closed. The catheter was secured in place using 2-0 Prolene. Both sites were cleansed and sterile dressing was applied. At the conclusion of the procedure, the ports of the catheter aspirate and flush freely. The patient tolerated the procedure well and was returned to [facility] in stable condition. EBL: Less than 5 ml. Complications: None. Conclusion: 1. Left internal jugular vein access and brachiocephalic venogram demonstrates complete occlusion of the superior vena cava and filling of collaterals and drainage via the azygos system. 2. Successful placement of right thigh Gresham catheter for chemotherapy. The catheter is ready for immediate use. Thank you this referral. Electronically Signed by Malorie Brush MD 08/09/2019 02:56 P
== END ==
LOC: M IRPRO 09:11
PROVIDERS: ATTEND Internal Medicine Medical Oncology
DX: C90.00 Multiple myeloma not having achieved remission (principal); I82.221 Chronic embolism and thrombosis of inferior vena cava; Z88.1 Allergy status to other antibiotic agents; Z79.899 Other long term (current) drug therapy
CPT/HCPCS: 36011; 36558; 75827; 85610; 99152; 99153; C1750; C1769; C1887; C1894; J0690; J1200; J2250; J3010; Q9967

== ENCOUNTER → 2019-08-16 | Outpatient (CLI) | payer MEDICARE, OTHER ==
[~2019-08-16] MED LIST changes: +ACYC1CAP20 PO; -ISOVUE-300 61% 50ML VIAL (Q9967) As Ordered ONE; -LIDOCAINE 1% MDV 20ML VIAL As Ordered ONE; -MIDAZOLAM INJ 2 MG/2 ML VIAL (J2250) As Ordered ONE; -OMEP40CA2 PO; +OMEP40CA97 PO; -ceFAZolin 1GM INJ (J0690 PER 500MG) As Ordered ONE; -diphenhydrAMINE INJ 50MG/ML VIAL (J1200) As Ordered ONE; -fentaNYL 100 MCG/2 ML INJECTION (J3010) As Ordered ONE
[2019-08-16 11:04] LABS: INR 1.2; PROTHROMBIN TIME 14.9 SECONDS (11.8-14.0)
== END ==
LOC: M SMT 09:09
PROVIDERS: ATTEND Family Medicine
DX: Z79.01 Long term (current) use of anticoagulants (principal)

== ENCOUNTER → 2019-08-20 | Outpatient (CLI) | payer MEDICARE, OTHER ==
--- NOTE | 2019-08-20 14:02 | REP ---
REASON: History of multiple myeloma. Multiple abnormal lucencies are seen throughout the right and left humerus with multiple abnormal lucencies seen involving all of the imaged right and left shoulder girdle, including ribs. There is no acute fracture. IMPRESSION: Lytic lesions, consistent with the patient's known multiple myeloma. Electronically Signed by Carmine Vaughn DO 08/20/2019 04:17 P
--- NOTE | 2019-08-20 14:18 | REP ---
REASON: Multiple myeloma. The glenohumeral and acromioclavicular relationships are within limits bilaterally. Multiple abnormal lucencies are seen throughout all components of the shoulder girdle bilaterally with evidence of tiny lucencies seen involving the imaged ribs bilaterally. There is no evidence of an acute fracture, dislocation, or subluxation. IMPRESSION: Lytic lesions consistent with the patient's known multiple myeloma. Electronically Signed by Carmine Vaughn DO 08/20/2019 04:17 P
== END ==
LOC: M RAD 09:45
PROVIDERS: ATTEND Internal Medicine Medical Oncology
DX: C90.01 Multiple myeloma in remission (principal)

== ENCOUNTER → 2019-08-23 | Outpatient (CLI) | payer MEDICARE, OTHER ==
[2019-08-23 14:23] LABS: INR 2.66; PROTHROMBIN TIME 28.2 SECONDS (11.8-14.0)
== END ==
LOC: M SMT 09:12
PROVIDERS: ATTEND Family Medicine
DX: Z79.01 Long term (current) use of anticoagulants (principal)

== ENCOUNTER → 2019-08-30 | Outpatient (CLI) | payer OTHER ==
[~2019-08-30] MED LIST changes: +HYDR-3713 PO
[2019-08-30 13:55] LABS: INR 2.89; PROTHROMBIN TIME 30.1 SECONDS (11.8-14.0)
== END ==
LOC: M SMT 09:11
PROVIDERS: ATTEND Family Medicine
DX: Z79.01 Long term (current) use of anticoagulants (principal)

== ENCOUNTER → 2019-08-31 | Outpatient (CLI) | payer OTHER ==
--- NOTE | 2019-08-31 11:30 | REP ---
BILATERAL MAMMOGRAM WITH 3D TOMOSYNTHESIS: No family history of breast cancer. Tyrer-zi lifetime risk of breast cancer 2.9%. Comparison 04/27/2018 as well as other prior exams. Patient has a right chest dialysis port and is very tender on that side. She could not tolerate right MLO mammogram today. Right CC was performed, in addition to left MLO and CC views with 3D tomosynthesis. Comparison made with prior studies, most recent of which is 07/28/2018. Breast parenchyma is mildly dense and unchanged. No mass or clustered microcalcifications are seen bilaterally. IMPRESSION: BIRADS 0: BI-RADS/ACR category 0 mammogram, Incomplete: Need additional imaging evaluation and/or prior mammograms for comparison. Right MLO view refused by the patient due to right chest tenderness. Other views show no evidence of a mass or clustered microcalcifications. When the patient's symptoms resolve and she can tolerate right breast compression, I would recommend the patient return so that the right MLO image may be obtained. This mammogram was interpreted with the aid of an FDA-approved computer-aided detection system. The patient states she has not had a clinical breast exam in over a year. The patient letter being requested is M0. Electronically Signed by Justin Ugalde MD 08/31/2019 02:02 P
== END ==
LOC: M RAD 09:57
PROVIDERS: ATTEND Nurse Practitioner Family
DX: R92.2 Inconclusive mammogram (principal)

== ENCOUNTER → 2019-09-06 | Outpatient (CLI) | payer OTHER ==
[2019-09-06 12:13] LABS: INR 1.41
== END ==
LOC: M SMT 09:16
PROVIDERS: ATTEND Family Medicine
DX: Z79.01 Long term (current) use of anticoagulants (principal)

== ENCOUNTER → 2019-09-07 | Outpatient (CLI) | payer OTHER ==
--- NOTE | 2019-09-07 11:15 | RADONC ---
RADIATION ONCOLOGY NEW PATIENT CONSULTATION DATE: 09/07/2019 CHART IDENTIFICATION NUMBER: [id number] DIAGNOSIS: The patient has a diagnosis of IgA kappa multiple myeloma in relapse following a prolonged remission after an autotransplant in 2006. The new relapse was noted in May of 2018 with a new 17P deletion. She now has progressed through ixazomib based treatment and is starting daratumumab. She is referred for evaluation of palliative radiation therapy because of painful disease in her humerus and upper humerus/distal clavicular area. STAGE: Progression. ICD-10 CODE: C90.02 ECOG PERFORMANCE STATUS: 0-1. HISTORY OF THE PRESENT ILLNESS: The patient is a 72-year-old female, who developed rib pain in 2005 (the patient claims that it was in November of 2008 however). She was diagnosed however with an IgA kappa multiple myeloma and underwent an autotransplant in 2006. She did well and did not relapse until May of 2018 with a rising free kappa and a new 17P deletion of the bone marrow biopsy. She has had multiple medical issues including pancreatitis, hematoma, TIA, and complications of dialysis due to vascular access. The patient claims that she had a graft in her left forearm area, which has recently clotted and is going to be reconstructed in the future. Nonetheless, the patient is doing relatively well at the current time and most recently has been placed on daratumumab/dexamethasone on 08/12/2019. Her dexamethasone dose is 12 mg weekly. The patient is also on montelukast, methylprednisone, prior to each daratumumab treatment. She has most recently noted pain in the right humerus but also significant pain, which she actually feels is the most severe in the left very proximal humerus versus the distal clavicle. The x-rays have revealed multiple lytic lesions consistent with myeloma. They are actually noted within each humerus. According to the patient, she is scheduled for graft reconstruction secondary to clot formation involving the left arm and will be seeing the interventional radiologist in the future. There appear to be some clots present in that area and ecchymoses secondary to perhaps palpation. She is in relatively good health otherwise and has been referred for evaluation of palliative local regional radiotherapy to the humerus (right). However, the proximal humorous according to the patient is the area in which she feels the most pain and the most limitation of movement. PAST MEDICAL HEALTH: 2006 she was diagnosed as having an IgA kappa A multiple myeloma with normal cytogenetics and she underwent induction therapy with bortezomib/thalidomide [id number]. 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 She was MARJORIE until 2018 when 3-5% myeloma cells were present on the bone marrow biopsy with a new 17P deletion and the lytic lesions present in the skeletal system. She began ixazomib/lenalidomide/dexamethasone with frequent holds in her therapy secondary to anemia from 07/30/2019 and this was stopped secondary to progressive disease with a rising free kappa light chain and light chain ratio. In addition, she has end-stage renal disease and is on hemodialysis, chronic intermittent pancreatitis, TIAs, suspected coronary artery disease, chronic intermittent shortness of breath since her stem cell transplant. 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 She had a right arm melanoma, which was resected in 2010, chronic peripheral neuropathy in her lower extremities, hearing loss (she wears bilateral hearing aids) and left nayeli flank postherpetic neuralgia. She also has had vascular access complications leading to closure of a left AV fistula requiring a new AV fistula in the right chest. She has vascular access via the right thigh since 2019. MARITAL HISTORY: She is and has been twice and has given two live births. She has a male and female child. She worked in the [employer] and then in [employer] after her . Since this time, she has been on disability secondary to her multiple diseases. Family history of cancer denied. SOCIAL HISTORY: She was a smoker for approximately 1 year one pack per day. Drinking history is denied. ALLERGIES: VANCOMYCIN. MEDICATIONS: - hydrocodone 1 or 2 tablets as needed for pain - warfarin 5 mg 1 tablet daily - dexamethasone 3 mg 3 tablets each 4 mg per week - Restasis drops in each eye every 12 hours - vitamin D3 - Benadryl prior to dialysis - levothyroxine 50 mg 1 hour before meals - Renvela 800 mg 1 tablet before meal SYSTEM REVIEW: Respiratory: The patient has difficulty breathing since her bone marrow transplant with occasional coughing, dyspnea with exertion. Denies hemoptysis, hiccups, pleuritic chest pain, but does note some wheezing. Psychiatric: Denies delusions, hallucinations, mood changes, depression, euphoria or mood swings. Neurologic: Denies disorientation, dizziness, changes in gait, headaches, insomnia, memory loss, neuropathy, motor changes, paralysis, seizure activity, sensory problems or stroke. Neck: Denies masses, muscle weakness, pain, difficulty with range of motion or swelling. Musculoskeletal: She has a history of arthritis and bone pain in both humeri. The left is greater than the right and located in the most proximal portion of the humerus. She also has joint pain, most prominent on the left but also present in the right. She has muscle weakness in the lower extremities bilaterally and decreased range of motion in the left upper extremity. Integumentary: Denies alopecia, blisters, bruising, dry skin, facial burning, nail issues, photosensitivity, pruritus, rashes or urticaria. Hematologic: She has history of multiple myeloma and she does have easy bruising. Genitourinary: The patient is on dialysis secondary to her multiple myeloma presumed. Gastrointestinal: She has Crohn disease and has had a bowel resection. Eyes: She denies blurred vision, double vision, lacrimation, night blindness, photophobia. ENT: Denies ear pain, epistaxis, esophagitis. She does have bilateral hearing loss. Denies mouth dryness, oral bleeding, otitis, sinusitis, sputum production, stomatitis, alteration of taste or tinnitus. Endocrine: Denies diabetes, hot flashes, menstrual irregularities (the patient is postmenopausal). Constitutional: She does have some loss of appetite, fatigue. Denies fevers. She does note some lethargy. Denies malaise, night sweats, rigors, chills or weight change. Cardiovascular: She probably has coronary artery disease but denies arrhythmias, occasional minor chest pain. She does have some dyspnea. Denies edema, orthopnea or palpitations. Breasts: Denies breast masses, nipple discharge, nipple inversion or pain. Allergy: Denies allergies with the exception of vancomycin. Vital signs: O2 saturation 96% on room air, diastolic 63, systolic 109, respiration 18, pulse 89, temperature 98.4, weight 107.8, height 64 inches. HEENT: The patient has bilateral hearing aids secondary to difficulty with hearing. EOMs intact. PERRLA. Fundi benign. Lymphatics: No palpable peripheral lymphadenopathy is appreciated. Lungs are clear bilaterally. Heart: Regular without murmurs. Abdomen: Without evidence of hepatomegaly, masses, deep abdominal tenderness. Extremities: She has a former graft noted in the left biceps area, which is clotted in two places with lumps palpable in the veins. There are also ecchymoses around this area. She has a port in the right chest region, which she has used for hemodialysis, and then she has a port in the right thigh with two access areas, which is used for chemotherapy. Neurologic examination: She has some peripheral neuropathy most prominent in the lower extremities. IMPRESSION: Multiple myeloma, IgA kappa multiple myeloma with first relapse treated after a prolonged remission following an autotransplant in 2006. The patient also has been treated with ixazomib/lenalidomide/dexamethasone with frequent holds secondary to intolerance and anemia continued through 07/30/2019. She is now, because of progressive disease, being treated with daratumumab/dexamethasone and appears to be tolerating that therapy pretty well. She does have disease involvement throughout the skeletal system, which manifests itself with pain involving the right humerus and proximal left humerus versus distal left clavicle. PLAN OF RADIOTHERAPY: Palliative local regional radiotherapy to the two areas of the humeri, which are quite symptomatic to her. We may have to reserve radiation portals involving the left upper extremity secondary to graft placement in that location. Prior to treatment delivery localization will be accomplished upon our CT simulator and treatment portals defined by the use of multiple leaf collimators. A 3-D conformal radiotherapy technique will be applied for treatment delivery. The indications, possible side effects as well as alternatives to radiotherapy have been explained to the patient in detail. She understands and is willing to proceed as outlined. Thank you for allowing us the opportunity of participation in the management of this very rebeka patient most sincerely. JUANA
== END ==
LOC: M ONCR 07:59
PROVIDERS: ATTEND Radiology Radiation Oncology
DX: C90.00 Multiple myeloma not having achieved remission (principal)

== ENCOUNTER → 2019-09-15 | Outpatient (CLI) | payer MEDICARE, OTHER ==
[2019-09-15 14:28] LABS: INR 2.73; PROTHROMBIN TIME 28.8 SECONDS (11.8-14.0)
== END ==
LOC: M SMT 09:23
PROVIDERS: ATTEND Family Medicine
DX: Z79.01 Long term (current) use of anticoagulants (principal)

== ENCOUNTER 2019-09-20 13:57 | Inpatient (IN) | payer MEDICARE, OTHER ==
[~2019-09-20] VITALS: Ht 162.6 cm; Wt 49.2 kg
[~2019-09-20 13:57] MED LIST changes: -RANI15TA PO
[2019-09-20 14:50] LABS: VENOUS BASE EXCESS 4.1 (-2.0-2.0); VENOUS HCO3 27.8 MEQ/L (23.0-27.0); VENOUS PARTIAL PRESSURE CO2 38.5 mmHg (38.0-50.0); VENOUS PH 7.477 UNITS (7.330-7.430); VENOUS STANDARD HCO3 27.3 MEQ/L
[2019-09-20 14:59] LABS: BASO % 0.1 % (0.0-1.0); HEMATOCRIT 33.7 % (36.0-47.0); HEMOGLOBIN 11.5 g/dl (12.0-15.5); LYMPH # 0.7 10^3/uL (1.5-5.0); LYMPH % 9.5 % (24.0-44.0); MEAN CORPUSCULAR HEMOGLOBIN 35.4 pg (27.0-33.0); MEAN CORPUSCULAR HGB CONC 34.1 g/dl (32.0-36.5); MEAN CORPUSCULAR VOLUME 103.7 fl (80.0-96.0); MONO # 0.5 10^3/uL (0.0-0.8); MONO % 7.1 % (0.0-5.0); NEUTROPHILS # 5.8 10^3/uL (1.5-8.5); PLATELET COUNT, AUTOMATED 235 10^3/uL (150-450); RED BLOOD COUNT 3.25 10^6/uL (4.00-5.40)
[2019-09-20 15:10] LABS: INR 2.97; PROTHROMBIN TIME 30.8 SECONDS (11.8-14.0)
--- NOTE | 2019-09-20 15:22 | REP ---
Single view chest: 09/20/2019. Indication: Dyspnea. Comparison: 07/28/2019. Findings: The lungs are clear. There is no pleural effusion or pneumothorax. Right-sided tunneled catheter is noted centrally. The cardiac and mediastinal silhouettes are unremarkable. Bilateral axillary and thoracolumbar postoperative sequelae are present. Impression: Clear lungs. Electronically Signed by Johann Montoya DO 09/20/2019 03:13 P
[2019-09-20 15:29] LABS: ALBUMIN 3.5 GM/DL (3.2-5.2); ALT/SGPT 30 U/L (12-78); BILIRUBIN,DIRECT 0.1 MG/DL (0.0-0.2); BILIRUBIN,TOTAL 0.9 MG/DL (0.2-1.0); BLOOD UREA NITROGEN 32 MG/DL (7-18); CARBON DIOXIDE LEVEL 30 MEQ/L (21-32); CHLORIDE LEVEL 98 MEQ/L (98-107); CK-MB VALUE MASS 1.2 NG/ML (<3.6); CPK CREATINE PHOSPHOKINASE 63 U/L (26-192); GLOMERULAR FILTRATION RATE 12.1 (>39); GLUCOSE, FASTING 104 MG/DL (70-100); NT-PRO BNP 525 PG/ML (<125); POTASSIUM SERUM 4.3 MEQ/L (3.5-5.1); SODIUM LEVEL 140 MEQ/L (136-145); TOTAL PROTEIN 6.6 GM/DL (6.4-8.2); TROPONIN I < 0.02 NG/ML (< 0.10)
[2019-09-20] MEDS: WARFARIN SOD 7.5 MG TAB PO SCH (17:00)
--- NOTE | 2019-09-20 18:22 | REP ---
CT chest with without IV contrast: History: Shortness of breath. The patient gives a history of multiple myeloma. Comparison is made with today's chest x-ray. Comparison chest CT study July 28, 2019. Findings: Digital preliminary cover making machine operator radiograph demonstrates a right-sided central venous tunnel catheter in the expected location of the superior vena cava. There are right axillary surgical clips. The lungs are somewhat hyperinflated. On CT images: The central line is seen in the superior vena cava. There is another venous line ascending from the inferior vena cava through the intrahepatic segment and terminating at the junction of the IVC and the right atrium. No hilar or mediastinal mass or adenopathy is observed. There is no evidence of pleural or pericardial effusion. No infiltrate is seen in the lung george. No pulmonary mass or significant nodule is appreciated. Bone window settings show no bony destructive lesion. The patient is status post vertebroplasty at three adjacent lower thoracic upper lumbar levels. No focal lytic lesion is seen. Impression: Internal jugular central venous tunnel catheter. There is a venous catheter in the inferior vena cava terminating at its junction with the right atrium. The lungs are hyperinflated but clear. Otherwise no acute disease. Electronically Signed by Dejon Daniel MD 09/21/2019 08:21 A
[2019-09-20] MEDS ORDERED: CREO3600 PO (18:26)
[2019-09-20] MEDS ORDERED: WARF-21 PO (18:26)
[2019-09-20] MEDS ORDERED: RANI15TA PO (18:27)
--- NOTE | 2019-09-20 18:45 | ECGEPIP ---
[facility] - ED Test Date: 2019-09-20 Pat Name: AD JOHNSTON Department: Room: - Gender: Female Parer: JEANE : 1945 Requested By: AZEB Ravi Order Number: [id number] Reading MD: Peyton Vickers Measurements Intervals [place] Rate: 86 P: 77 DE: 117 QRS: 71 QRSD: 73 T: 78 QT: 381 QTc: 457 Interpretive Statements SINUS RHYTHM WITH SHORT DE INTERVAL NSTTW abnormalities DECREASED RATE 07/28/19 Electronically Signed on 09-20-2019 18:45:35 EST by Peyton Vickers
--- NOTE | 2019-09-20 19:10 | HPEPDOC ---
[facility] Medical History & Physical Date of Admission Sep 20, 2019 Date of Service: Sep 20, 2019 Primary Care Physician: FEROZ FUNES MD [facility] Attending Physician: MARKO DOE MD History and Physical TIME OF SERVICE: 7:58 PM CHIEF COMPLAINT: Shortness of breath HISTORY OF PRESENT ILLNESS: This is a 74-year-old female who presents with complaints of worsening of her chronic shortness of breath. She noticed acute worsening last night while trying to walk to the bathroom because she stop rest and catch her breath prior to completing the trip. Later during the day while trying to walk towards her walker she fell down onto her knees. Symptoms associated with the episodes of dyspnea include chills, chest pressure, and lightheadedness. She denied having dizziness, coughing, nausea, vomiting, diarrhea, fevers, chills, or headache. Today she was unable to receive radiation because of the shortness of breath. REVIEW OF SYSTEMS: 12 point review of systems negative except as listed in HPI PAST MEDICAL/ SURGICAL HISTORY: IgG kappa Multiple myeloma initially diagnosed in 2008 with a relapse in 2018. Status post hematopoietic stem cell transplant in 2008, currently receiving chemotherapy every and radiation. Peripheral neuropathy affecting the lower extremities ESRD (MWF). Status post left AV fistula placement which developed clots and was subsequently removed. 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 Postherpetic neuralgia affecting the left flank. Crohn's disease status post colectomy and ostomy TIA. Hypothyroidism Status post appendectomy. Status post resection of basal cell carcinoma. Status post resection of right arm melanoma SOCIAL HISTORY: She quit smoking the 80s. She was in the [employer] FAMILY HISTORY: CAD Diabetes ALLERGIES: Please see below. HOME MEDICATIONS: Please see below. PHYSICAL EXAMINATION: VITAL SIGNS: Please see below. GENERAL APPEARANCE: Slim built, well-developed, not in apparent distress HEENT: Normocephalic, atraumatic, mucous membranes moist and pink CARDIOVASCULAR:, Regular rate and rhythm. No murmurs, rubs or gallops LUNGS: Clear to auscultation bilaterally on room air ABDOMEN: Soft and nontender on palpation MUSCULOSKELETAL: She has a dialysis catheter at the right upper chest and a port at the right lower leg for chemotherapy. Her AV fistula at the left upper arm has been removed, but she has some hardware still present at the left upper arm. She does not have lower extremity edema. She does not have lower extremity edema INTEGUMENT: She is not pale or jaundice. Her skin is not flushed NEUROLOGICAL: Cranial nerves II to 12 are grossly intact. Speech is not dysarthric PSYCHIATRIC: Alert and oriented to person, place and time, able to understand and follow commands LABORATORY DATA: See below. IMAGING: Chest x-ray unremarkable CT of the chest without contrast " Impression: Internal jugular central venous tunnel catheter. There is a venous catheter in the inferior vena cava te rminating at its junction with the right atrium. The lungs are hyperinflated but clear. Otherwise no acute disease" MICROBIOLOGY: Please see below. ASSESSMENT: Ms. Turner is a 74-year-old female with a PMH of multiple myeloma, ESRD, hypothyroidism, superior vena cava thrombus, Crohn's disease, and TIA who will be admitted for evaluation of dyspnea who's causes is to be determined. PLAN: 1. Dyspnea differential diagnosis includes: CHF vs COPD vs restrictive lung dx vs OK vs valvular obstruction, vs arrhythmia vs hypercapnia O2 sats within normal limits on room air but per ER provider the patient became short of breath with exertion Chest imaging, respiratory panel and troponin are unrevealing BNP is elevated Plan: admit to medical floor/ follow-up ABG, serial trops, echocardiogram, FEV1 PFTs & home O2 qualifying test 2. IgA [place] MM Plan: f/u w Oncologist & radiologist as scheduled 3. ESRD, Had dialysis today. Plan: Follow-up with dialysis unit likely on Fri / continue with sevelamer 4. 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 5. Hypothyroidism Plan: Continue with levothyroxine 6. Low BMI BMI 18.5kg/m2 Plan: Regular diet because she has lost a lot of weight recently DVT prophylaxis not needed as the patient is chronically on warfarin. Disposition: Likely home after more than 2 midnight stay Vital Signs Vital Signs Date Time Temp Pulse Resp B/P (MAP) Pulse Ox O2 Delivery O2 Flow Rate FiO2 09/20/19 18:45 92 18 100 09/20/19 18:00 98/55 (69) 09/20/19 15:14 Room Air 09/20/19 13:58 98.0 Laboratory Data Labs 24H Laboratory Tests 2 09/20/19 14:34: Immature Granulocyte % (Auto) 0.3, Neutrophils (%) (Auto) 83.0H, Lymphocytes (%) (Auto) 9.5L, Monocytes (%) (Auto) 7.1H, Eosinophils (%) (Auto) 0.0, Basophils (%) (Auto) 0.1, Neutrophils # (Auto) 5.8, Lymphocytes # (Auto) 0.7L, Monocytes # (Auto) 0.5, Eosinophils # (Auto) 0.0, Basophils # (Auto) 0.0, Nucleated Red Blood Cells % (auto) 0.0, Prothrombin Time 30.8H, Prothromb Time International Ratio 2.97, Blood Gas Bicarbonate Standard 27.3, Venous Blood pH 7.477H, Venous Blood Partial Pressure CO2 38.5, Venous Blood Partial Pressure O2 32.0, Venous Blood Total Carbon Dioxide 29.0H, Venous Blood HCO3 27.8H, Venous Blood Oxygen Saturation 60.0, Venous Blood Base Excess 4.1H, Anion Gap 12, Glomerular Filtration Rate 12.1L, Lactic Acid Level 2.8*H, Calcium Level 9.0, Total Bilirubin 0.9, Direct Bilirubin 0.1, Aspartate Amino Transf (AST/SGOT) 20, Alanine Aminotransferase (ALT/SGPT) 30, Alkaline Phosphatase 87, Total Creatine Kinase 63, Creatine Kinase MB 1.2, Creatine Kinase MB Relative Index 1.90, Troponin I < 0.02, RK-Gxl-G-Type Natriuretic Peptide 525H, Total Protein 6.6, Albumin 3.5, Albumin/Globulin Ratio 1.13, Thyroid Stimulating Hormone (TSH) 5.590H 09/20/19 19:00: CBC/BMP Laboratory Tests 09/20/19 14:34 Microbiology Microbiology 09/20/19 Blood Culture, Received Pending 09/20/19 Respiratory Virus Panel (PCR) (AIDEE) - Final, Complete 09/20/19 Blood Culture, Received Pending Home Medications Scheduled Cholecalciferol (Vitamin D3) (Vitamin D3) 5,000 Unit Tablet, 5,000 UNIT PO QHS Cyclosporine (Restasis) 0.05% Droperette, 1 DROP OU BID Dexamethasone (Dexamethasone) 4 Mg Tab, 12 MG PO ASDIRECTED TAKES DAYS 1,8,15,22 - LAST DOSE WAS DAY 1 OF CYCLE Diphenhydramine HCl (Benadryl) 25 Mg Capsule, 25 MG PO 3XW TAKE PRIOR TO DIALYSIS ON ,W,F Levothyroxine Sodium (Levoxyl) 50 Mcg Tablet, 50 MCG PO DAILY Lipase/Protease/Amylase (Creon Dr 36,000 Units Capsule) 1 Each Capsule.dr, 2 CAP PO WM [place]-3 Fatty Acids/Fish Oil (Fish Oil 1,000 mg Capsule) 1 Each Capsule, 1,000 MG PO QHS Ranitidine Hcl (Ranitidine HCl) 150 Mg Tablet, 2 TAB PO BID ON CHEMO DAYS (FRIDAY) Sevelamer Carbonate (Renvela) 800 Mg Tablet, 800 MG PO WM Warfarin Sodium (Coumadin) 5 Mg Tablet, 5 MG PO 2XW FRIDAY, FRIDAY Warfarin Sodium (Warfarin Sodium) 7.5 Mg Tablet, 7.5 MG PO 5XW FRIDAY, FRIDAY, FRIDAY, FRIDAY, FRIDAY Scheduled PRN Acetaminophen (Acetaminophen) 500 Mg Tablet, 500 MG PO Q4H PRN for PAIN / FEVER Ondansetron HCl (Ondansetron HCl) 8 Mg Tablet, 8 MG PO Q6H PRN for NAUSEA OR VOMITING TAKE ONE TABLET EVERY 6 HOURS NEEDED FOR NAUSEA. Allergies Coded Allergies: vancomycin (Verified Allergy, Intermediate, RASH/ITCHING, 03/26/19) A-FIB/CHADSVASC A-FIB History Current/History of A-Fib/PAF?: No Current PO Anticoag Therapy: MARKO Jackson MD Sep 20, 2019 19:10
[2019-09-20] MEDS ORDERED: ONDANSETRON 4 MG TAB (S0181) PO PRN (21:45)
[2019-09-20 22:00] VITALS: BP 115/88
[2019-09-21 04:16] LABS: HEMATOCRIT 31.7 % (36.0-47.0); HEMOGLOBIN 10.6 g/dl (12.0-15.5); MEAN CORPUSCULAR HEMOGLOBIN 34.6 pg (27.0-33.0); MEAN CORPUSCULAR HGB CONC 33.4 g/dl (32.0-36.5); MEAN CORPUSCULAR VOLUME 103.6 fl (80.0-96.0); PLATELET COUNT, AUTOMATED 208 10^3/uL (150-450); RED BLOOD COUNT 3.06 10^6/uL (4.00-5.40)
[2019-09-21 04:48] LABS: BLOOD UREA NITROGEN 44 MG/DL (7-18); CALCIUM LEVEL 8.5 MG/DL (8.8-10.2); CARBON DIOXIDE LEVEL 27 MEQ/L (21-32); CHLORIDE LEVEL 98 MEQ/L (98-107); CREATININE FOR GFR 5.04 MG/DL (0.55-1.30); GLUCOSE, FASTING 101 MG/DL (70-100); POTASSIUM SERUM 4.3 MEQ/L (3.5-5.1); SODIUM LEVEL 138 MEQ/L (136-145); TROPONIN I < 0.02 NG/ML (< 0.10)
[2019-09-21 06:00] VITALS: BP 104/68
[2019-09-21] MEDS: LEVOTHYROXINE 50MCG TABLET (0.05MG) PO SCH (06:25)
[2019-09-21] MEDS: (RENVELA) SEVELAMER **CARBONate** 800 MG TAB PO SCH ×3 (08:14→17:47)
[2019-09-21] MEDS ORDERED: FAMOTIDINE 20 MG TAB PO SCH (09:00)
[2019-09-21 10:25] VITALS: BP 104/52
[2019-09-21 14:00] VITALS: BP 102/53
[2019-09-21] MEDS: ACETAMINOPHEN 500 MG TAB PO PRN (14:23)
[2019-09-21] MEDS ORDERED: WARFARIN SOD 5 MG TAB PO SCH (17:00)
[2019-09-21 22:00] VITALS: BP 101/54
[2019-09-22] MEDS: LEVOTHYROXINE 50MCG TABLET (0.05MG) PO SCH (05:34)
[2019-09-22 06:00] VITALS: BP 106/56
[2019-09-22] MEDS: (RENVELA) SEVELAMER **CARBONate** 800 MG TAB PO SCH ×3 (06:51→17:54)
--- NOTE | 2019-09-22 07:30 | ECHO ---
DATE OF PROCEDURE: 09/20/2019 REFERRING PHYSICIAN: Radha Garcia. INDICATIONS: Dyspnea. HEIGHT: 163 cm WEIGHT: 49 kg. DIMENSIONS: IVS: 1.0 LV: 3.5 LVPW: 1.9 LA: 2.0 Aorta 2.9 IVC: 0.6 Kanika E wave velocity 61, A-wave 82 E prime septal 5.6 E prime lateral 7.4 FINDINGS: The study is of fair technical quality with somewhat limited visualization. The patient is in sinus rhythm. Normal LV size and low normal ejection fraction. There appears to be subtle septal wall abnormality. I estimate overall EF around 50-55%. Right ventricle appears normal. Both atria appear normal. There are minimal degenerative abnormalities of aortic and mitral valve with some thickening of leaflets but preserved mobility. Tricuspid valve appears normal. Pulmonic valve was not seen. No pericardial effusion is present. Inferior vena cava is relatively small caliber. Aortic root is normal. Aortic arch was not seen. Abdominal aorta appears normal. Doppler interrogation reveals no significant aortic valvular disease. There is trace mitral and trace tricuspid insufficiency. Calculated pulmonary artery pressure is within normal limits. Mitral inflow pattern and tissue Doppler imaging of mitral annulus reveal grade 1 diastolic dysfunction. CONCLUSIONS: 1. Study is of fair technical quality. 2. Normal LV size with low normal LV systolic function and grade 1 diastolic dysfunction, questionable subtle septal wall motion abnormality. 3. No significant valvular disease. 4. Normal central venous pressure and normal pulmonary artery pressure. COMMENT: SBE prophylaxis is not recommended. The study is not supportive of diagnosis of acute congestive heart failure.
[2019-09-22 09:25] LABS: HEMATOCRIT 35.8 % (36.0-47.0); HEMOGLOBIN 11.8 g/dl (12.0-15.5); MEAN CORPUSCULAR HEMOGLOBIN 35.3 pg (27.0-33.0); MEAN CORPUSCULAR VOLUME 107.2 fl (80.0-96.0); PLATELET COUNT, AUTOMATED 236 10^3/uL (150-450); RED BLOOD COUNT 3.34 10^6/uL (4.00-5.40); WHITE BLOOD COUNT 5.7 10^3/uL (4.0-10.0)
[2019-09-22 09:50] VITALS: BP 76/44
[2019-09-22 09:52] LABS: ALBUMIN 3.4 GM/DL (3.2-5.2); CALCIUM LEVEL 8.9 MG/DL (8.8-10.2); CREATININE FOR GFR 6.27 MG/DL (0.55-1.30); PHOSPHORUS LEVEL 4.6 MG/DL (2.5-4.9); POTASSIUM SERUM 4.1 MEQ/L (3.5-5.1)
[2019-09-22 10:43] VITALS: BP 76/44
[2019-09-22 11:24] VITALS: BP 76/44
[2019-09-22 11:26] VITALS: BP 76/44
[2019-09-22 13:40] VITALS: BP 106/58
[2019-09-22] MEDS: ACETAMINOPHEN 500 MG TAB PO PRN (16:47)
[2019-09-22] MEDS: WARFARIN SOD 7.5 MG TAB PO SCH (17:54)
[2019-09-22] MEDS ORDERED: CREON-24 CAPSULE PO SCH (18:00)
--- NOTE | 2019-09-22 20:41 | CR ---
DATE OF CONSULTATION: 09/22/2019 REFERRING PHYSICIAN: Nadege Orona MD REASON FOR CONSULTATION: To assist in the management of end-stage renal disease. HISTORY OF PRESENT ILLNESS Mrs. Escobedo is a 74-year-old very pleasant lady with multiple chronic medical problems including relapse of multiple myeloma following stem-cell transplant in 2008, history of end-stage renal disease requiring maintenance hemodialysis and associated problems, history of ileostomy following a total colectomy for Crohn disease and history of recurrent shortness of breath. She was admitted to [facility] on Friday following dialysis when she went for her radiation therapy. She was so short of breath that her radiation therapy was cancelled and she was sent to the emergency room. Imaging was negative and she never any history of volume overload due to her high output ostomy. In any event, she was admitted and is due for dialysis today. I was not called for a consult until today. PAST MEDICAL AND SURGICAL HISTORY Significant for 1. History of melanoma resection from her extremity. 2. History of IgG kappa multiple myeloma diagnosed in 2008, status post stem cell transplant and now with recurrence and relapse requiring chemotherapy and radiation. 3. History of peripheral neuropathy. 4. History of end-stage renal disease requiring maintenance hemodialysis. 5. History of secondary hyperparathyroidism. 6. Anemia. 7. History of post herpetic neuralgia. 8. History of Crohn disease, status post colectomy and ileostomy. 9. History of hypothyroidism. 10. History of transient ischemic attack (TIA). 11. History of clotting and bleeding from her AV fistula requiring ligation and removal, status post appendectomy, status post basal cell carcinoma removal/ 12. Status post right arm melanoma removal. PERSONAL AND SOCIAL HISTORY The patient lives by herself. She quit smoking in the 80s. There is no history of alcohol or drug use. FAMILY HISTORY: Negative and unremarkable. No family history for end-stage renal disease. REVIEW OF SYSTEMS The patient denies any fever or chills. She has been short of breath for last few months. She gets episodes where she cannot even catch her breath. She has had extensive workup previously including CT angiogram, CT scans and x-rays. She never has any history of volume overload due to her ileostomy with high output. She has mild hearing deficit now but denies any sore throat or nosebleed. Cardiovascular system is negative for chest pain or leg edema. She does have shortness of breath on minimal exertion. Respiratory system negative for cough or hemoptysis. GI system is significant for prior history of colostomy and ileostomy. She denies any vomiting or abdominal pain. system is significant for end-stage renal disease. Psychosocial system is negative for depression or anxiety. Neurological system is significant for prior TIA but denies any loss of consciousness or dizziness. She has severe peripheral neuropathy. Hematological system is significant for anemia and multiple myeloma. PHYSICAL EXAMINATION The patient is sitting in the chair at the time of my visit. She is at her baseline mentation and without any acute distress. Temperature 97.6 degrees Fahrenheit, heart rate 76 per minute and respiratory rate 18 per minute. Blood pressure 76/44 mmHg, which is usual for her. Oxygen saturation is 97% on room air. Head is atraumatic. Neck is supple and JVD not abnormally elevated. She has a Perma-Cath in her right upper chest. There is no oral thrush or ulcers. Nose and throat are unremarkable. Heart exam reveals regular S1 and S2. There is no gallop or murmur. Lungs: Clear to auscultation bilaterally. Abdomen: Soft and nontender and ileostomy is functioning. Extremities: Without any cyanosis or clubbing. Neurologically she is awake, alert and oriented times three. LABS: Today's labs show WBC count 5.7, hemoglobin 11.8 and hematocrit 35.8. Platelets 236. Sodium 136, potassium 4.1, CO2 25, BUN 64 and creatinine 6.27. Calcium is 8.9 and phosphorus 4.6. MEDICATIONS: Her medications in the hospital include Tylenol as needed, Benadryl 25 mg as needed, levothyroxine 25 mcg daily, Zofran 8 mg as needed for nausea, pancreatic enzymes 3 capsules with meals, Renvela 800 mg with meals, Coumadin 5 mg on Friday and while 7.5 mg daily the rest of the week. ALLERGIES: She has allergy to VANCOMYCIN. PROBLEMS: 1. End-stage renal disease. The patient was last dialyzed on Friday and she is due for dialysis today. We will schedule her for dialysis this afternoon. Electrolytes are all stable. 2. Shortness of breath. Etiology remains uncertain. All her workup has been negative, which has included a CT angiogram recently and imaging during this admission also did not reveal any evidence for volume overload or infection. Her chest CT scan was also done during this emergency room visit and did not show any acute infiltrate or effusion. The dialysis catheter is in place and PICC line in her inferior vena cava through her femoral vein. 3. Anemia. Her anemia is very mild and stable and does not need any intervention. 4. Multiple myeloma with relapse. The patient is currently receiving chemo and radiation. 5. Hypothyroidism. She has been stable on chronic dose of her levothyroxine. Thank you for involving me in the care of Mrs. Escobedo. Nephrology service will follow her along with you.
--- NOTE | 2019-09-23 15:28 | IPNPDOC ---
Text Note Date of Service The patient was seen on 09/21/19. NOTE SUBJECTIVE: Continu;es to have SOB on minor exertion. No other complaints. Due to RT today. PHYSICAL EXAMINATION: VITAL SIGNS: Please see below. GENERAL APPEARANCE: Slim built, well-developed, not in apparent distress HEENT: Normocephalic, atraumatic, mucous membranes moist and pink CARDIOVASCULAR:, Regular rate and rhythm. No murmurs, rubs or gallops LUNGS: Clear to auscultation bilaterally on room air ABDOMEN: Soft and nontender on palpation MUSCULOSKELETAL: She has a dialysis catheter at the right upper chest and a port at the right lower leg for chemotherapy. Her AV fistula at the left upper arm has been removed, but she has some hardware still present at the left upper arm. She does not have lower extremity edema. She does not have lower extremity edema INTEGUMENT: She is not pale or jaundice. Her skin is not flushed NEUROLOGICAL: Cranial nerves II to 12 are grossly intact. Speech is not dysarthric PSYCHIATRIC: Alert and oriented to person, place and time, able to understand and follow commands Labs and Radiology : Reviewed as below Assessment and plan: 74-year-old female with PMHx of IgA Multiple myeloma with relapse with mets to both the humerus getting RT, ESRD on HD (MWF), Crohns disease (s/p ileostomy & colectomy), Anemia, 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, Hearing loss, OA, Left flank post-herpetic neuralgia presented to the ED with progressive SOB SOB CHF vs COPD vs restrictive lung dx O2 sats within normal limits on room air but per ER provider the patient became short of breath with exertion Chest imaging, respiratory panel and troponin are unrevealing echo reviewed form may , diastolic dysfunction, normal EF. echo ordered. IgA kappa Multiple myeloma initially diagnosed in 2008 with a relapse in 2018 with mets to right and left humerus . Status post hematopoietic stem cell transplant in 2008, currently receiving chemotherapy every and radiation therapy for bone mets. Peripheral neuropathy affecting the lower extremities ESRD (MWF). left AV fistula developed clots and infection and was subsequently removed. 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 on coumadin INR therapeutic. Postherpetic neuralgia affecting the left flank. Crohn's disease status post colectomy and ostomy TIA. Hypothyroidism cotninue home meds. Hyperinflation in CT chest. will need PFT as outpatint for evaluation for obstructive lung disease. Vertebroplasty of thoracic vertebra. history of skin melanoma and basal cell cancer -followed by Dr. Sykes secondary hyperparathyroidism of renal origin -managed by Nephrology anemia related to chronic renal failure and myeloma, -no acute indication for RBC transfusion DVT prophylaxis on coumadin. VS,Fishbone, I+O VS, Fishbone, I+O Laboratory Tests 09/20/19 14:34 09/21/19 03:52 Vital Signs Date Time Temp Pulse Resp B/P (MAP) Pulse Ox O2 Delivery O2 Flow Rate FiO2 09/21/19 06:00 97.9 83 16 104/68 (80) 97 09/20/19 22:00 Room Air I&O- Last 24 Hours up to 6 AM 09/21/19 06:00 Intake Total 600 ml Balance 600 ml KUSHAL DENG MD Sep 21, 2019 11:06
--- NOTE | 2019-09-23 15:39 | DS.PDOC ---
Discharge Summary General Date of Admission Sep 20, 2019 at 19:09 Date of Discharge 09/22/19 Discharge Summary PROCEDURES PERFORMED DURING STAY: [None]. DISCHARGE DIAGNOSES: SOB etiology remains undetermined. SECONDARY DIAGNOSIS: IgA [place] Multiple myeloma with relapse with mets to both the humerus getting RT, H/O stem cell transplant for MM, ESRD on HD (MWF), Crohns disease (s/p ileostomy & colectomy), Chronic Anemia, 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, Hearing loss, OA, Left flank post-herpetic neuralgia , h/o TIA, secondary hyper parathyroidism, SVC thrombosis, Skin cancer, hypothyroid, h/o vertebroplasty COMPLICATIONS/CHIEF COMPLAINT: Dyspena, Unspecified. HISTORY OF PRESENT ILLNESS: See history and physical HOSPITAL COURSE: 74-year-old female with PMHx of IgA Multiple myeloma with relapse with mets to both the humerus getting RT, ESRD on HD (MWF), Crohns disease (s/p ileostomy & colectomy), Anemia, 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, Hearing loss, OA, Left flank post-herpetic neuralgia presented to the ED with progressive SOB SOB etiology remains undetermined. O2 sats within normal limits on room air but per ER provider the patient became short of breath with exertion Chest imaging, respiratory panel and troponin are unrevealing, CT angio recently negative, No signs of fluid overload, or infection or pneumonia or heart failure. echo this admission showed grade 1 diastolic dys and EF of 50% to 55%. No pulmonary hypertension. CT chest hyperinflation will need work up for obstructive lung disease. IgA kappa Multiple myeloma initially diagnosed in 2008 with a relapse in 2018 with mets to right and left humerus . Status post hematopoietic stem cell transplant in 2008, currently receiving chemotherapy every and radiation therapy for bone mets. Peripheral neuropathy affecting the lower extremities ESRD (MWF). left AV fistula developed clots and infection and was subsequently removed. 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 on coumadin INR therapeutic. Postherpetic neuralgia affecting the left flank. Crohn's disease status post colectomy and ostomy TIA. Hypothyroidism cotninue home meds. Hyperinflation in CT chest. will need PFT as outpatient for evaluation for obstructive lung disease. Vertebroplasty of thoracic vertebra. history of skin melanoma and basal cell cancer -followed by Dr. Sykes secondary hyperparathyroidism of renal origin -managed by Nephrology anemia related to chronic renal failure and myeloma, -no acute indication for RBC transfusion DISCHARGE MEDICATIONS: Please see below. ALLERGIES: Please see below. PHYSICAL EXAMINATION ON DISCHARGE: VITAL SIGNS: Please see below. GENERAL APPEARANCE: Slim built, well-developed, not in apparent distress HEENT: Normocephalic, atraumatic, mucous membranes moist and pink CARDIOVASCULAR:, Regular rate and rhythm. No murmurs, rubs or gallops LUNGS: Clear to auscultation bilaterally on room air ABDOMEN: Soft and nontender on palpation MUSCULOSKELETAL: She has a dialysis catheter at the right upper chest and a port at the right lower leg for chemotherapy. Her AV fistula at the left upper arm has been removed, but she has some hardware still present at the left upper arm. She does not have lower extremity edema. She does not have lower extremity edema INTEGUMENT: She is not pale or jaundice. Her skin is not flushed NEUROLOGICAL: Cranial nerves II to 12 are grossly intact. Speech is not dysarthric PSYCHIATRIC: Alert and oriented to person, place and time, able to understand and follow commands LABORATORY DATA: Please see below. ACTIVITY: [As tolerated]. DIET: As tolerated DISPOSITION: 01 Home, Self-Care. DISCHARGE INSTRUCTIONS: Follow up with oncology follow up at radiation oncology DISCHARGE CONDITION: [Stable]. TIME SPENT ON DISCHARGE: 35 minutes. Vital Signs/I&Os Vital Signs Date Time Temp Pulse Resp B/P (MAP) Pulse Ox O2 Delivery O2 Flow Rate FiO2 09/22/19 13:40 97.7 80 14 106/58 (74) 97 Room Air I&O- Last 24 Hours up to 6 AM 09/23/19 06:00 Intake Total 480 ml Output Total 300 ml Balance 180 ml Laboratory Data CBC/BMP Item Value Date Time White Blood Count 5.7 10^3/uL 09/22/19911 Red Blood Count 3.34 10^6/uL L 09/22/19911 Hemoglobin 11.8 g/dl L 09/22/19911 Hematocrit 35.8 % L 09/22/19911 Mean Corpuscular Volume 107.2 fl H 09/22/19911 Mean Corpuscular Hemoglobin 35.3 pg H 09/22/19911 Mean Corpuscular Hemoglobin Concent 33.0 g/dl 09/22/19 0912 Red Cell Distribution Width 14.8 % H 09/22/19 09 Platelet Count 236 10^3/uL 09/22/19 09 Sodium Level 137 MEQ/L 09/22/19 0912 Potassium Level 4.1 MEQ/L 09/22/19 09 Chloride Level 100 MEQ/L 09/22/19 0912 Carbon Dioxide Level 25 MEQ/L 09/22/19 09 Anion Gap 12 MEQ/L 09/22/19 09 Blood Urea Nitrogen 64 MG/DL H 09/22/19 0912 Creatinine 6.27 MG/DL H 09/22/19 0912 Glomerular Filtration Rate 7.0 L 09/22/19 0912 Fasting Glucose 83 MG/DL 09/22/19 0912 Calcium Level 8.9 MG/DL 09/22/19 0912 Phosphorus Level 4.6 MG/DL 09/22/19 0912 Albumin 3.4 GM/DL 09/22/19 09 Microbiology Microbiology 09/20/19 Blood Culture - Preliminary, Resulted No Growth after 72 hours. All specime... 09/20/19 Respiratory Virus Panel (PCR) ([facility]) - Final, Complete 09/20/19 Blood Culture - Preliminary, Resulted No Growth after 72 hours. All specime... Discharge Medications Scheduled Cholecalciferol (Vitamin D3) (Vitamin D3) 5,000 Unit Tablet, 5,000 UNIT PO QHS, (Reported) Cyclosporine (Restasis) 0.05% Droperette, 1 DROP OU BID, (Reported) Dexamethasone (Dexamethasone) 4 Mg Tab, 12 MG PO ASDIRECTED TAKES DAYS 1,8,15, - LAST DOSE WAS DAY 1 OF CYCLE Diphenhydramine HCl (Benadryl) 25 Mg Capsule, 25 MG PO 3XW, (Reported) TAKE PRIOR TO DIALYSIS ON M,W,F Levothyroxine Sodium (Levoxyl) 50 Mcg Tablet, 50 MCG PO DAILY, (Reported) Lipase/Protease/Amylase (Creon Dr 36,000 Units Capsule) 1 Each Capsule.dr, 2 CAP PO WM, (Reported) [place]-3 Fatty Acids/Fish Oil (Fish Oil 1,000 mg Capsule) 1 Each Capsule, 1,000 MG PO QHS, (Reported) Ranitidine Hcl (Ranitidine HCl) 150 Mg Tablet, 2 TAB PO BID, (Reported) ON CHEMO DAYS (FRIDAY) Sevelamer Carbonate (Renvela) 800 Mg Tablet, 800 MG PO WM, (Reported) Warfarin Sodium (Coumadin) 5 Mg Tablet, 5 MG PO 2XW, (Reported) FRIDAY, FRIDAY Warfarin Sodium (Warfarin Sodium) 7.5 Mg Tablet, 7.5 MG PO 5XW, (Reported) FRIDAY, FRIDAY, FRIDAY, FRIDAY, FRIDAY Scheduled PRN Acetaminophen (Acetaminophen) 500 Mg Tablet, 500 MG PO Q4H PRN for PAIN / FEVER, (Reported) Ondansetron HCl (Ondansetron HCl) 8 Mg Tablet, 8 MG PO Q6H PRN for NAUSEA OR VOMITING TAKE ONE TABLET EVERY 6 HOURS NEEDED FOR NAUSEA. Allergies Coded Allergies: vancomycin (Verified Allergy, Intermediate, RASH/ITCHING, 03/26/19) KUSHAL DENG MD Sep 23, 2019 15:39
[2019-09-24] MEDS ORDERED: diphenhydrAMINE 25 MG CAP PO SCH (08:00)
== END 2019-09-22 18:16 | disposition home or self-care (01) | DRG 204 ==
LOC: M ED 13:57 → M ED INP 19:09 → M MSPAV 21:56
PROVIDERS: ADMIT Internal Medicine; ATTEND Internal Medicine Nephrology
DX: R06.02 Shortness of breath (principal); N18.6 End stage renal disease; C79.51 Secondary malignant neoplasm of bone; Z94.84 Stem cells transplant status; C90.00 Multiple myeloma not having achieved remission; N25.81 Secondary hyperparathyroidism of renal origin; B02.29 Other postherpetic nervous system involvement; Z68.1 Body mass index [BMI] 19.9 or less, adult; G62.9 Polyneuropathy, unspecified; Z79.01 Long term (current) use of anticoagulants; M19.90 Unspecified osteoarthritis, unspecified site; Z86.73 Personal history of transient ischemic attack (TIA), and cerebral infarction without residual deficits; E03.9 Hypothyroidism, unspecified; D63.1 Anemia in chronic kidney disease; Z85.828 Personal history of other malignant neoplasm of skin; Z79.899 Other long term (current) drug therapy; Z88.1 Allergy status to other antibiotic agents; Z93.2 Ileostomy status; K52.9 Noninfective gastroenteritis and colitis, unspecified

== ENCOUNTER → 2019-09-20 | Outpatient (CLI) | payer MEDICARE, OTHER ==
[~2019-09-20] MED LIST changes: -ACET-840; +ACET-840 PO; +RANI15TA PO
[2019-09-20 14:07] LABS: INR 3.61
== END ==
LOC: M SMT 09:11
PROVIDERS: ATTEND Family Medicine
DX: Z79.01 Long term (current) use of anticoagulants (principal)

== ENCOUNTER 2019-09-27 13:15 | Outpatient (RCR) | payer MEDICARE, OTHER ==
--- NOTE | 2019-09-11 06:34 | RADONC ---
RADIATION ONCOLOGY SIMULATION NOTE DATE: 09/10/2019 CHART NUMBER: [id number] DIAGNOSIS: The patient is a diagnosis of IgA kappa multiple myeloma in relapse following a prolonged remission and now with evidence of painful metastatic disease in her right humerus and even more severe in the left very proximal portion of the humerus versus distal clavicular area. SIMULATION NOTE: The patient was brought into the simulation room and placed in a supine position and an immobilization device was constructed to secure the patient and provide stability in order to achieve accurate day-to-day treatments. She tolerated the immobilization device which positioned the patient properly very well and she had no significant untoward events during that procedure. Thereafter [address] images were captured throughout the involved area for future contouring. The entire simulation process was tolerated quite well with no untoward side effects or events. I was there during the entire simulation process. We will now after appropriate contouring of the areas to be treated as well as the areas to be avoided the patient will have a treatment plan formulated and treatments will begin thereafter.
--- NOTE | 2019-09-21 11:08 | RADONC ---
RADIATION ONCOLOGY PROGRESS NOTE DATE OF SERVICE: 09/20/2019 CHART NUMBER: [id number] Ms. Turner is thus far at a dose of 600 cGy to both her right and left humeral george. The patient presented today for her third fraction of radiation but reported that she was extremely short of breath. She could not walk and reported that she was unable to make it to a chair this morning. We cancelled today's treatment and sent the patient to our emergency department for evaluation. The patient reports that she has been like that since her bone marrow transplant and these episodes would come and go. Her blood oxygen levels appeared to be above 96%. Once again, with improvement, we plan on be reinitiating treatment tomorrow.
[~2019-09-27 13:15] MED LIST changes: +RANI15TA PO
--- NOTE | 2019-09-29 09:13 | RADONC ---
RADIATION ONCOLOGY TREATMENT NOTE DATE OF SERVICE: 09/27/2019 CHART NUMBER: [id number] DIAGNOSIS: Multiple myeloma. ECOG PERFORMANCE STATUS: 0. TREATMENT SUMMARY: Ms. Escobedo is a delightful 72-year-old white female with the diagnosis of multiple myeloma who presented to us for consideration of palliative radiation therapy to both her right and left humerus and shoulder george. We treated the patient to both her right and left humeral george for a dose of 2100 cGy each delivered in 7 fractions of 300 cGy over 11 elapsed days from 09/16/2019 through 09/27/2019. The patient's right and left humeral george were treated on a linear accelerator utilizing a 6 MV photon beam via anterior posterior parallel opposed george. Ms. Escobedo tolerated her treatments quite well and was able complete therapy as prescribed. I have scheduled the patient to see me again in 1 month for further followup. She will also continue to be followed by her other physicians as well. Thank you for allowing us to participate in the care of this very pleasant woman. If I can be of any further assistance, please free to contact me anytime. As always, warm regards, Justin Jewell MD
== END 2019-10-02 ==
LOC: M ONCR 13:15
PROVIDERS: ATTEND Radiology Radiation Oncology
DX: C90.02 Multiple myeloma in relapse (principal)

== ENCOUNTER → 2019-09-29 | Outpatient (CLI) | payer MEDICARE, OTHER ==
[~2019-09-29] MED LIST changes: +COUM7.5T PO; +D 202000 PO; +LEVA750T7 PO; +LEVO750T13 PO; +PROV108A INH
== END ==
LOC: M IRPRO 07:58
PROVIDERS: ATTEND Radiology Diagnostic Radiology
DX: T82.898A Other specified complication of vascular prosthetic devices, implants and grafts, initial encounter (principal); X58.XXXA Exposure to other specified factors, initial encounter

== ENCOUNTER → 2019-10-04 | Outpatient (CLI) | payer MEDICARE, OTHER ==
[~2019-10-04] MED LIST changes: -COUM7.5T PO; -D 202000 PO; -LEVA750T7 PO; -PROV108A INH
[2019-10-04 13:50] LABS: INR 3.69; PROTHROMBIN TIME 36.7 SECONDS (11.8-14.0)
== END ==
LOC: M PLALAB 09:17
PROVIDERS: ATTEND Family Medicine
DX: Z51.81 Encounter for therapeutic drug level monitoring (principal); Z79.01 Long term (current) use of anticoagulants

== ENCOUNTER → 2019-10-08 | Outpatient (CLI) | payer MEDICARE, OTHER ==
--- NOTE | 2019-10-08 15:20 | REP ---
ULTRASOUND LEFT UPPER ARM SOFT TISSUES: Real-time sonographic evaluation of the left upper arm soft tissues performed. Reportedly, there is bruising in the mid aspect of the left upper arm. In the soft tissues, a thrombosed arteriovenous fistula is seen. According to the patient, this is chronic. Otherwise, no significant fluid collection or hematoma is seen in this region. Mild superficial soft tissue edema is present. There is no significant fluid collection. Electronically Signed by Justin Ugalde MD 10/08/2019 03:57 P
== END ==
LOC: M RAD 14:10
PROVIDERS: ATTEND Internal Medicine Medical Oncology
DX: R31.9 Hematuria, unspecified (principal); M79.601 Pain in right arm

== ENCOUNTER → 2019-10-11 | Outpatient (CLI) | payer MEDICARE, OTHER ==
[2019-10-11 14:25] LABS: INR 2.51
== END ==
LOC: M PLALAB 09:21
PROVIDERS: ATTEND Family Medicine
DX: Z79.01 Long term (current) use of anticoagulants (principal)

== ENCOUNTER 2019-10-13 09:28 | Observation (INO) | payer MEDICARE, OTHER ==
[~2019-10-13] VITALS: Ht 162.6 cm; Wt 53.3 kg
[2019-10-13 10:30] LABS: HEMATOCRIT 31.1 % (36.0-47.0); HEMOGLOBIN 10.3 g/dl (12.0-15.5); LYMPH # 0.6 10^3/uL (1.5-5.0); MEAN CORPUSCULAR HEMOGLOBIN 34.6 pg (27.0-33.0); MEAN CORPUSCULAR HGB CONC 33.1 g/dl (32.0-36.5); MEAN CORPUSCULAR VOLUME 104.4 fl (80.0-96.0); MONO # 0.4 10^3/uL (0.0-0.8); NEUTROPHILS # 7.2 10^3/uL (1.5-8.5); NEUTROPHILS % 87.5 % (36.0-66.0); PLATELET COUNT, AUTOMATED 196 10^3/uL (150-450); RED BLOOD COUNT 2.98 10^6/uL (4.00-5.40); WHITE BLOOD COUNT 8.2 10^3/uL (4.0-10.0)
[2019-10-13] MEDS ORDERED: SODIUM CHLORIDE 0.9% INJ 10 ML SYR IV PRN (10:30)
[2019-10-13] MEDS ORDERED: ALBUTEROL SULFATE 2.5 MG/0.5 ML INH NEB SOLN INH ONE (10:30)
--- NOTE | 2019-10-13 10:48 | REP ---
PORTABLE CHEST X-RAY: Two views. HISTORY: Chest pain. COMPARISON STUDY: September 20, 2019. FINDINGS: Monitoring electrodes are seen. The lungs are hyperinflated but free of infiltrate. Interstitial markings are mildly prominent as before. Heart is not enlarged. Oxygen delivery tubing is seen. There are surgical clips in the right axilla and left axilla. In the left axillary soft tissues, there is also a vascular stent. A central venous tunnel catheter is noted in the mediastinum via the right internal jugular vein region. There is a venous catheter in the inferior vena cava as well with its tip projecting in the region of the right atrium. This is unchanged. The patient is status post lower thoracic and upper lumbar vertebroplasty. There is diffuse osteoporosis. IMPRESSION: Hyperinflation. Mild diffuse interstitial fibrosis pattern. No acute infiltrate. Central venous catheter is noted in the superior and inferior vena cava. Electronically Signed by Dejon Daniel MD 10/13/2019 05:38 P
[2019-10-13 10:55] LABS: INR 3.28; PROTHROMBIN TIME 33.4 SECONDS (11.8-14.0)
[2019-10-13] MEDS: NS 1,000 ML IV SCH ×2 (11:12→20:43)
[2019-10-13] MEDS ORDERED: D 202000 PO (11:19)
[2019-10-13] MEDS ORDERED: COUM1TAB17 PO (11:19)
[2019-10-13] MEDS ORDERED: HYDR-3713 PO (11:19)
[2019-10-13] MEDS ORDERED: COUM7.5T PO (11:19)
[2019-10-13 11:25] LABS: BLOOD UREA NITROGEN 24 MG/DL (7-18); CALCIUM LEVEL 9.3 MG/DL (8.8-10.2); CARBON DIOXIDE LEVEL 31 MEQ/L (21-32); CHLORIDE LEVEL 99 MEQ/L (98-107); CK-MB VALUE MASS < 1.0 NG/ML (<3.6); CPK CREATINE PHOSPHOKINASE 73 U/L (26-192); CREATININE FOR GFR 3.61 MG/DL (0.55-1.30); GLOMERULAR FILTRATION RATE 13.2 (>39); GLUCOSE, FASTING 99 MG/DL (70-100); MB/CK RELATIVE INDEX 1.37 (< OR =4); NT-PRO BNP 620 PG/ML (<125); POTASSIUM SERUM 3.8 MEQ/L (3.5-5.1); SODIUM LEVEL 140 MEQ/L (136-145); TROPONIN I < 0.02 NG/ML (< 0.10)
[2019-10-13] MEDS ORDERED: CREO3600 PO (13:46)
[2019-10-13] MEDS: IPRATROPIUM 0.5MG/ALBUTEROL 2.5MG INH SOL UD 3ML (DUONEB)(J7620) NEB SCH ×2 (14:00→20:16)
[2019-10-13] MEDS ORDERED: NORCO, ANEXSIA 5/325MG TABLET (HYDROcodone/ACETAMINOPHEN) PO PRN (14:45)
[2019-10-13] MEDS ORDERED: guaiFENesin DM LIQ 10ML UD PO PRN (14:45)
[2019-10-13] MEDS ORDERED: ONDANSETRON 4 MG TAB (S0181) PO PRN (14:45)
[2019-10-13] MEDS ORDERED: ACETAMINOPHEN TAB 650MG DOSE (2X325MG) PO PRN (14:45)
[2019-10-13] MEDS ORDERED: IPRATROPIUM 0.5MG/ALBUTEROL 2.5MG INH SOL UD 3ML (DUONEB)(J7620) NEB PRN (14:45)
--- NOTE | 2019-10-13 15:03 | HPEPDOC ---
General Date of Admission 10/13/19 Date of Service: Oct 13, 2019 Attending Physician: FLORENCIA EUCEDA MD Chief Complaint The patient is a 74-year-old female admitted with a reason for visit of Difficu lty Breathing. 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 There for neuropathy, secondary hyperparathyroidism, end-stage renal disease on hemodialysis, anemia. Postoperative neuralgia Crohn's disease, TIA, hypothyroidism, went to dialysis today, she complained of right-sided chest pain along with shortness of breath. She had recently finished a course of Levaquin for URI. Patient finished her dialysis and was referred to emergency room for further workup. According to patient, chest pain is sharp, intermittent, nonradiating, worsening with inspiration and coughing, not relieved with any meds. Associated with shortness of breath since this morning. No fever, no nausea, vomiting, diarrhea, delusion altered mental status, etc. Home Medications Scheduled Cholecalciferol (Vitamin D3) (Vitamin D3) 2,000 Unit Tablet, 2,000 UNIT PO DAILY, (Reported) Cyclosporine (Restasis) 0.05% Droperette, 1 DROP OU BID, (Reported) Dexamethasone (Dexamethasone) 4 Mg Tab, 12 MG PO ASDIRECTED TAKES DAYS 1,8,15,22 - LAST DOSE WAS DAY 1 OF CYCLE Diphenhydramine HCl (Benadryl) 25 Mg Capsule, 25 MG PO 3XW, (Reported) TAKE PRIOR TO DIALYSIS ON M,W,F Levothyroxine Sodium (Levoxyl) 50 Mcg Tablet, 50 MCG PO DAILY, (Reported) Lipase/Protease/Amylase (Pratibha Pandey 36,000 Units Capsule) 1 Each Capsule.dr, 2 CAP PO WM, (Reported) Lipase/Protease/Amylase (Pratibha Pandey 36,000 Units Capsule) 1 Each Capsule.dr, 1 CAP PO ASDIRECTED, (Reported) WITH SNACKS [place]-3 Fatty Acids/Fish Oil (Fish Oil 1,000 mg Capsule) 1 Each Capsule, 1,000 MG PO QHS, (Reported) Sevelamer Carbonate (Renvela) 800 Mg Tablet, 800 MG PO WM, (Reported) Warfarin Sodium (Coumadin) 5 Mg Tablet, 5 MG PO 3XW, (Reported) MON/WED/FRI AT 1500 Warfarin Sodium (Coumadin) 7.5 Mg Tablet, 7.5 MG PO 4XWK, (Reported) E//SAT/SUN AT 1500 Scheduled PRN Hydrocodone/Acetaminophen (Hydrocodone-Acetamin 5-325 mg) 1 Each Tablet, 1 TAB PO Q6H PRN for PAIN, (Reported) Ondansetron HCl (Ondansetron HCl) 8 Mg Tablet, 8 MG PO Q6H PRN for NAUSEA OR VOMITING TAKE ONE TABLET EVERY 6 HOURS NEEDED FOR NAUSEA. Allergies Coded Allergies: vancomycin (Verified Allergy, Intermediate, RASH/ITCHING, 03/26/19) Past Medical History Medical History Multiple myeloma, hemopoietic stem cell transplant, peripheral neuropathy, end- stage renal disease on dialysis, hyperparathyroidism, anemia, thrombosis, postherpetic neuralgia, Crohn's disease, TIA, hypothyroidism Surgical History Resection, basal cell carcinoma, resection right arm melanoma, status post colectomy and O's ostomy, status post left AV fistula which developed clot and was subsequently removed Family History Significant Family History: Other (. CAD and diabetes) Social History * Smoker: former Smoker Alcohol: Denies Drugs: denies A-FIB/CHADSVASC A-FIB History Current/History of A-Fib/PAF?: No Review of Systems Constitutional: Denies: Chills, Fever, Malaise, Night Sweats, Weakness, Fatigue, Weight Loss, Lethargy, Other Eyes: Denies: Pain, Vision change, Conjunctivae inflammation, Eyelid inflammation, Redness, Other ENT: Denies: Head Aches, Ear Pain, Dysphagia, Sinus Congestion, Post Nasal Drip, Sore Throat, Epistaxis, Other Symptoms Skin: Denies: Rash, Lesions, Jaundice, Bruising, Itching, Dry, Breakdown, Nail Changes, Other Pulmonary: Reports: Dyspnea; Denies: Cough, Pleuritic Chest Pain, Other Symptoms Cardiovascular: Reports: Chest Pain (, right-sided chest pain) Gastrointestinal: Denies: Nausea, Vomiting, Abdominal Pain, Diarrhea, Constipation, Melena, Hematochezia, Other Symptoms Genitourinary: Denies: Dysuria, Frequency, Incontinence, Hematuria, Retention, Other Symptoms Hematologic: Denies: Bruising, Bleeding Excessively, Petecchia, Purpura, Enlarged Lymph Nodes, Other Hematologic Endocrine: Denies: Polydipsia, Polyphagia, Polyuria, Heat Intolerance, Cold Intolerance, Other Endocrine Sx Musculoskeletal: Denies: Neck Pain, Back Pain, Shoulder Pain, Arm Pain, Hand Pain, Leg Pain, Foot Pain, Joint Pain, Muscle Pain, Spasms, Other Symptoms Neurological: Denies: Weakness, Numbness, Incoordination, Change in speech, Confusion, Seizures, Other Symptoms Psych: Denies: Mood Normal, Anxiety, Depression, Memory Issues, Thoughts of Self Harm, Anger, Thoughts of Harming Other, Other Psych Physical Examination General Exam: Positive: Alert, Cooperative Eye Exam: Positive: PERRLA, Conjunctiva & lids normal ENT Exam: Positive: Atraumatic, Mucous membr. moist/pink Neck Exam: Positive: Supple Chest Exam: Positive: Other (. Bilateral week. He is wheezing and rhonchi is audible on both sides of the lungs) Heart Exam: Positive: Rate Normal, Normal S1, Normal S2 Abdomen Exam: Positive: Normal bowel sounds, Soft, Tenderness Extremity Exam: Positive: Normal pulses Skin Exam: Positive: Nl turgor and temperature Neuro Exam: Positive: Strength at 5/5 X4 ext, Normal Tone, Cranial Nerves 3-12 NL Psych Exam: Positive: Anxiety, Oriented x 3 Vital Signs Vital Signs Date Time Temp Pulse Resp B/P (MAP) Pulse Ox O2 Delivery O2 Flow Rate FiO2 10/13/19 13:31 84 98 10/13/19 13:30 107/59 (75) 10/13/19 12:46 18 Room Air 10/13/19 09:44 98.8 Laboratory Data Labs 24H Laboratory Tests 2 10/13/19 10:12: Immature Granulocyte % (Auto) 0.5, Neutrophils (%) (Auto) 87.5H, Lymphocytes (%) (Auto) 7.0L, Monocytes (%) (Auto) 5.0, Eosinophils (%) (Auto) 0.0, Basophils (%) (Auto) 0.0, Neutrophils # (Auto) 7.2, Lymphocytes # (Auto) 0.6L, Monocytes # (Auto) 0.4, Eosinophils # (Auto) 0.0, Basophils # (Auto) 0.0, Nucleated Red Blood Cells % (auto) 0.0, Prothrombin Time 33.4H, Prothromb Time International Ratio 3.28, Anion Gap 10, Glomerular Filtration Rate 13.2L, Lactic Acid Level 1.7, Calcium Level 9.3, Total Creatine Kinase 73, Creatine Kinase MB < 1.0, Creatine Kinase MB Relative Index 1.37, Troponin I < 0.02, FB-Apl-J-Type Natriuretic Peptide 620H CBC/BMP Laboratory Tests 10/13/19 10:12 Microbiology Microbiology 10/13/19 Respiratory Virus Panel (PCR) (AIDEE) - Final, Complete Parainfluenza 1 (Piv1) 10/13/19 Blood Culture, Received Pending 10/13/19 Blood Culture, Received Pending Problems (1) Parainfluenza virus bronchitis Status: Acute Problem Text: 74 years old white female, ex-smoker with past medical history of multiple medical problems including multiple myeloma have antibiotics Cell transplant on chemotherapy, peripheral neuropathy affecting lower extremities, end-stage renal disease on hemodialysis 3 times a week is status post left AV fistula placement, which was subsequently removed secondary to clots. 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 Crohn's disease status post c olectomy and ostomy TIA, hypothyroidism, status post appendectomy, status post resection of basal cell carcinoma, status post right arm melanoma resection was transferred from a hemodialysis unit when patient complained of right-sided chest pain and shortness of breath after getting the dialysis. Patient had a chest x-ray done which showed mild diffuse interstitial fibrosis but no infiltrate, Lactic acid 1.7. BNP 620, BUN 24, creatinine 3.61. CBC is within normal range. On examination, patient is a bilateral wheezing and scattered rhonchi and basal crackles. Patient is being admitted with parainfluenza virus induced viral bronchitis with bronchospasm. Admit patient to MedSurg floor DuoNeb every 6 hours and every 2 hours when necessary Continue home dexamethasone Probably doesn't DM when necessary Conservative medical management No evidence of any acute bacterial infection. 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 INR is 3.2H, we will restart Coumadin from tomorrow with a skip the dose today Plan / VTE VTE Prophylaxis Ordered?: Yes FLORENCIA EUCEDA MD Oct 13, 2019 15:03
[2019-10-13] MEDS: (RENVELA) SEVELAMER **CARBONate** 800 MG TAB PO SCH (17:52)
[2019-10-13 20:54] VITALS: BP 112/61
[2019-10-14] MEDS ORDERED: SODIUM CHLORIDE 0.9% INJ 10 ML SYR IV PRN (02:15)
[2019-10-14] MEDS: IPRATROPIUM 0.5MG/ALBUTEROL 2.5MG INH SOL UD 3ML (DUONEB)(J7620) NEB SCH ×5 (02:49→23:27)
[2019-10-14 05:13] VITALS: BP 104/57
[2019-10-14] MEDS: LEVOTHYROXINE 50MCG TABLET (0.05MG) PO SCH (05:13)
[2019-10-14] MEDS: NS 1,000 ML IV SCH (05:13)
[2019-10-14 06:26] LABS: HEMATOCRIT 24.8 % (36.0-47.0); MEAN CORPUSCULAR HEMOGLOBIN 34.6 pg (27.0-33.0); MEAN CORPUSCULAR HGB CONC 32.7 g/dl (32.0-36.5); PLATELET COUNT, AUTOMATED 146 10^3/uL (150-450); RED BLOOD COUNT 2.34 10^6/uL (4.00-5.40); WHITE BLOOD COUNT 6.2 10^3/uL (4.0-10.0)
[2019-10-14 06:31] LABS: HEMOGLOBIN 8.1 g/dl (12.0-15.5)
[2019-10-14 06:47] LABS: INR 3.99
[2019-10-14 06:49] LABS: ALBUMIN 2.6 GM/DL (3.2-5.2); BILIRUBIN,TOTAL 0.7 MG/DL (0.2-1.0); CALCIUM LEVEL 7.7 MG/DL (8.8-10.2); CREATININE FOR GFR 5.01 MG/DL (0.55-1.30); POTASSIUM SERUM 3.5 MEQ/L (3.5-5.1)
--- NOTE | 2019-10-14 07:04 | CR ---
DATE OF CONSULTATION: 10/13/2019 CONSULTATION FOR: Dr. Chintan Patten REASON FOR CONSULTATION: To assist in the management of end-stage renal disease and shortness of breath. HISTORY OF PRESENT ILLNESS: Mrs. Turner is a 74-year-old female who has multiple chronic medical problems including a history of multiple myeloma which was in remission for awhile. However, she had a relapse and is currently receiving chemotherapy. She also has end-stage renal disease requiring maintenance hemodialysis. Since she started chemo for her multiple myeloma, she has had several problems and has been quite short of breath. She has known history of Crohn disease, status post colectomy and ileostomy, hypothyroidism, and a prior history of transient ischemic attack (TIA). She came for her regular dialysis treatment today and did not feel well even after dialysis. She was quite short of breath. She could hardly walk a few steps. She was sent to the emergency room due to possibility of pneumonia with her severe immunocompromised status and is admitted with acute bronchitis and shortness of breath. Nephrology consultation was requested as the patient is in need for maintenance hemodialysis. She did complete her dialysis treatment today. PAST MEDICAL AND SURGICAL HISTORY (Significant for): 1. History of melanoma removal from her extremity. 2. History of recurrent multiple myeloma. 3. History of severe peripheral neuropathy. 4. History of Crohn disease. 5. History of hypothyroidism. 6. End-stage renal disease. 7. Secondary hyperparathyroidism. 8. Anemia. 9. Prior history of TIA. MEDICATIONS: Her home medications include vitamin D 2000 units daily, cyclosporin eye drops 0.05% both eyes b.i.d., dexamethasone 12 mg on day 1, 8, 15 and 22 of each cycle, Benadryl 25 mg three times a week before dialysis, levothyroxine 50 mcg daily, Creon 1 capsule b.i.d., Coumadin 7.5 mg four times a week and 5 mg three times a week, Renvela 800 mg with meals, omega 3 fatty acids 1 capsule at bedtime. She also takes hydrocodone 5 mg every 6 hours as needed for pain and Zofran as needed for nausea. ALLERGIES: She has allergy to VANCOMYCIN. PERSONAL AND SOCIAL HISTORY: The patient does not smoke or drink. She lives with her family. FAMILY HISTORY: Negative and unremarkable. REVIEW OF SYSTEMS: She has no fever or chills. She is just quite short of breath and also has cough. Nose and throat are unremarkable. She denies any headache. Cardiovascular system negative for leg edema or chest pain. Respiratory system per history of present illness. GI system is significant for prior colectomy and ileostomy. She denies any vomiting or abdominal pain. system is negative for dysuria or hematuria. Endocrine system is significant for hypothyroidism and secondary hyperparathyroidism. Neurological system significant for prior TIA and severe peripheral neuropathy. Musculoskeletal system is significant for difficulty in ambulation, hip pain and back pain. Hematological system is significant for multiple myeloma and anemia. PHYSICAL EXAMINATION: Temperature 97.7 degrees Fahrenheit, heart rate 78 per minute and respiratory rate 20 per minute. Blood pressure 104/55 mmHg and oxygen saturation 97% on 2 liters oxygen. Head is atraumatic. Neck is supple and without jugular venous distention (JVD) or thyroid enlargement. Hemodialysis Perma-Cath is present on right upper chest without any signs of infection. Heart sounds are regular and lungs have scattered rhonchi. Abdomen: Soft and nontender and ileostomy is functioning. Extremities: Without any cyanosis or clubbing. Left arm old surgical scars from her AV fistula surgery are well healed. Neurologically, she is awake, alert and at her baseline mentation. LABORATORY DATA: WBC count 8.2, hemoglobin 10.3, hematocrit 31, platelets 196. Sodium 140, potassium 3.8, CO2 31, BUN 24 and creatinine 3.61. A pro-BNP level is 620 and troponin is less than 0.02. INR 3.28. Chest x-ray done in the emergency room showed mild and diffuse interstitial fibrosis and no acute infiltrate. Dialysis catheter noticed in superior vena cava (SVC). PROBLEMS: 1. End-stage renal disease. The patient is regularly dialyzed on Friday, Friday and Friday schedule. She did complete her dialysis treatment today prior to admission. We will plan to dialyze her again on Friday. There is no emergent indication for dialysis today. 2. Shortness of breath most likely related to pulmonary fibrosis and ongoing chemo. She does not have any evidence of volume overload. 3. Anemia related to end-stage renal disease and multiple myeloma with chemo. Her anemia is stable at present and does not need any urgent intervention. 4. Chronic back pain. 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 She remains on hydrocodone as needed. She is not a suitable candidate for nonsteroidal anti-inflammatory drug (NSAID). Thank you for involving me in the care of Mrs. Escobedo. I will follow her along with you. JUANA
[2019-10-14] MEDS: (RENVELA) SEVELAMER **CARBONate** 800 MG TAB PO SCH ×3 (09:10→16:52)
[2019-10-14] MEDS: VITAMIN D 1,000 INTERNATIONAL UNITS TABLET PO SCH (09:10)
[2019-10-14] MEDS: SODIUM CHLORIDE 0.9% INJ 10 ML SYR IV SCH (09:11)
--- NOTE | 2019-10-14 11:19 | IPNPDOC ---
Subjective Date Seen The patient was seen on 10/14/19. Subjective Chief Complaint/HPI Patient feeling slightly better but still has a lot of cough General: Denies: ROS Unobtainable, Chills, Night Sweats, Fatigue, Malaise, Normal Appetite, Other Symptoms Constitutional: Denies: Chills, Fever, Malaise, Night Sweats, Weakness, Fatigue, Weight Loss, Lethargy, Other Eyes: Denies: Pain, Vision change, Conjunctivae inflammation, Eyelid inflammation, Redness, Other ENT: Denies: Head Aches, Ear Pain, Dysphagia, Sinus Congestion, Post Nasal Drip, Sore Throat, Epistaxis, Other Symptoms Pulmonary: Reports: Cough; Denies: Dyspnea, Pleuritic Chest Pain, Other Symptoms Cardiovascular: Denies: Chest Pain, Palpitations, Orthopnea, Paroxysmal Noc. Dyspnea, Edema, Lt Headedness, Other Symptoms Gastrointestinal: Denies: Nausea, Vomiting, Abdominal Pain, Diarrhea, Constipation, Melena, Hematochezia, Other Symptoms Musculoskeletal: Denies: Neck Pain, Back Pain, Shoulder Pain, Arm Pain, Hand Pain, Leg Pain, Foot Pain, Joint Pain, Muscle Pain, Spasms, Other Symptoms Neurological: Denies: Weakness, Numbness, Incoordination, Change in speech, Confusion, Seizures, Other Symptoms Objective Physical Examination General Exam: Positive: Alert, Cooperative Eye Exam: Positive: PERRLA, Conjunctiva & lids normal ENT Exam: Positive: Atraumatic, Mucous membr. moist/pink Neck Exam: Positive: Supple Chest Exam: Positive: Other (. Bilateral week. He is wheezing and rhonchi is audible on both sides of the lungs) Heart Exam: Positive: Rate Normal, Normal S1, Normal S2 Abdomen Exam: Positive: Normal bowel sounds, Soft, Tenderness Extremity Exam: Positive: Normal pulses Skin Exam: Positive: Nl turgor and temperature Neuro Exam: Positive: Strength at 5/5 X4 ext, Normal Tone, Cranial Nerves 3-12 NL Psych Exam: Positive: Anxiety, Oriented x 3 Assessment /Plan Problems (1) Parainfluenza virus bronchitis Status: Acute Problem Text: Continue DuoNeb Oxygen support Improving is status And is awaiting medical management (2) Pulmonary interstitial fibrosis Status: Chronic Problem Text: Continue home meds (3) Multiple myeloma, failed remission Status: Chronic Problem Text: Continue home meds (4) 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 Problem Text: Continue anticoagulation with Coumadin All INR (5) ESRD (end stage renal disease) Status: Chronic Problem Text: Nephrology consult appreciated HDS per nephrology (6) Bronchitis with bronchospasm Status: Acute Problem Text: Improving status Continue conservative medical management Plan/VTE VTE Prophylaxis Ordered?: Yes VS, I&O, 24H, Fishbone Vital Signs/I&O Vital Signs Date Time Temp Pulse Resp B/P (MAP) Pulse Ox O2 Delivery O2 Flow Rate FiO2 10/14/19 09:30 2.0 10/14/19 05:13 97.7 79 20 104/57 (73) 98 Room Air I&O- Last 24 Hours up to 6 AM 10/14/19 06:00 Intake Total 2952 ml Output Total 725 ml Balance 2227 ml Laboratory Data 24H LABS Laboratory Tests 2 10/14/19 05:57: Nucleated Red Blood Cells % (auto) 0.0, Prothrombin Time 39.0H, Prothromb Time International Ratio 3.99, Anion Gap 9, Glomerular Filtration Rate 9.0L, Calcium Level 7.7#L, Total Bilirubin 0.7, Aspartate Amino Transf (AST/SGOT) 15, Alanine Aminotransferase (ALT/SGPT) 20, Alkaline Phosphatase 64, Total Protein 6.0L, Albumin 2.6L, Albumin/Globulin Ratio 0.76L CBC/BMP Laboratory Tests 10/14/19 05:57 Microbiology Microbiology 10/13/19 Respiratory Virus Panel (PCR) (AIDEE) - Final, Complete Parainfluenza 1 (Piv1) 10/13/19 Blood Culture - Preliminary, Resulted No growth after 24 hours . All specim... 10/13/19 Blood Culture - Preliminary, Resulted No growth after 24 hours . All specim... FLORENCIA EUCEDA MD Oct 14, 2019 11:19
[2019-10-14] MEDS: guaiFENesin DM LIQ 10ML UD PO SCH ×3 (12:28→21:26)
[2019-10-14 14:00] VITALS: BP 114/80
--- NOTE | 2019-10-14 14:21 | IPN ---
DATE: 10/14/2019 Mrs. Turner is seen this morning on her bedside. Her sister and son-in-law are visiting. The patient is feeling better, however, still has cough and shortness of breath when she ambulates. She denies any nausea or vomiting. She has no fever or chills. On physical examination, temperature 97.6 degrees Fahrenheit, heart rate 80 per minute and respiratory rate 20 per minute. Blood pressure 104/57 mmHg and oxygen saturation 98% on 2 liters oxygen. Head is atraumatic. Neck is supple and without jugular venous distention (JVD) or thyroid enlargement. Hemodialysis catheter is intact on right upper chest. Heart sounds are regular and lungs with scattered rhonchi bilaterally. Abdomen: Soft and nontender and colostomy is functioning. Extremities: Without any cyanosis or clubbing. Neurologically, she is awake, alert and oriented times three. Today's labs show WBC count 6.2, hemoglobin 8.1 and hematocrit 24.8. Platelets 146. Sodium 138, potassium 3.5, CO2 26, BUN 32 and creatinine 5.01. Total protein 6.0 and albumin 2.6. PROBLEMS: 1. End-stage renal disease. The patient was dialyzed yesterday and will be scheduled for next hemodialysis tomorrow. At present, there is no emergent indication for dialysis today. 2. Cough and shortness of breath. She probably has pulmonary fibrosis and bronchitis. She is being treated as a bronchitis with antibiotics and nebulizers. I will also give her cough syrup three times a day to see if that will help with her cough. 3. Anemia. Her anemia did get worse without any evidence of blood loss. We will check her CBC again tomorrow and consider transfusing her 1 unit during dialysis if needed.
[2019-10-14] MEDS ORDERED: WARFARIN SOD 5 MG TAB PO SCH (17:00)
[2019-10-14] MEDS ORDERED: WARFARIN SOD 7.5 MG TAB PO SCH (17:00)
--- NOTE | 2019-10-14 17:45 | ECGEPIP ---
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
[2019-10-14 20:41] VITALS: BP 103/48
[2019-10-15 05:08] VITALS: BP 119/55
[2019-10-15 06:19] LABS: BASO % 0.2 % (0.0-1.0); EOS % 0.3 % (0.0-3.0); HEMATOCRIT 24.2 % (36.0-47.0); HEMOGLOBIN 7.9 g/dl (12.0-15.5); LYMPH # 0.4 10^3/uL (1.5-5.0); LYMPH % 6.1 % (24.0-44.0); MEAN CORPUSCULAR HEMOGLOBIN 34.6 pg (27.0-33.0); MEAN CORPUSCULAR HGB CONC 32.6 g/dl (32.0-36.5); MEAN CORPUSCULAR VOLUME 106.1 fl (80.0-96.0); MONO # 0.4 10^3/uL (0.0-0.8); MONO % 5.5 % (0.0-5.0); NEUTROPHILS # 5.6 10^3/uL (1.5-8.5); NEUTROPHILS % 87.1 % (36.0-66.0); PLATELET COUNT, AUTOMATED 153 10^3/uL (150-450); RED BLOOD COUNT 2.28 10^6/uL (4.00-5.40); WHITE BLOOD COUNT 6.4 10^3/uL (4.0-10.0)
[2019-10-15] MEDS: guaiFENesin DM LIQ 10ML UD PO SCH ×3 (06:20→21:00)
[2019-10-15] MEDS: VITAMIN D 1,000 INTERNATIONAL UNITS TABLET PO SCH (06:20)
[2019-10-15] MEDS: (RENVELA) SEVELAMER **CARBONate** 800 MG TAB PO SCH ×3 (06:21→17:16)
[2019-10-15] MEDS: LEVOTHYROXINE 50MCG TABLET (0.05MG) PO SCH (06:21)
[2019-10-15] MEDS: SODIUM CHLORIDE 0.9% INJ 10 ML SYR IV SCH (06:22)
[2019-10-15 06:30] LABS: INR 3.47; PROTHROMBIN TIME 34.9 SECONDS (11.8-14.0)
[2019-10-15 06:43] LABS: ALBUMIN 2.5 GM/DL (3.2-5.2); BILIRUBIN,TOTAL 0.7 MG/DL (0.2-1.0); CREATININE FOR GFR 5.78 MG/DL (0.55-1.30); GLOMERULAR FILTRATION RATE 7.7 (>39); POTASSIUM SERUM 3.4 MEQ/L (3.5-5.1); TOTAL PROTEIN 6.1 GM/DL (6.4-8.2)
[2019-10-15] MEDS: IPRATROPIUM 0.5MG/ALBUTEROL 2.5MG INH SOL UD 3ML (DUONEB)(J7620) NEB SCH ×3 (07:46→20:00)
[2019-10-15] MEDS ORDERED: diphenhydrAMINE 25 MG CAP PO SCH (08:00)
[2019-10-15] MEDS ORDERED: POTASSIUM CHLORIDE 10 MEQ SR TABLET PO ONE (11:15)
--- NOTE | 2019-10-15 11:56 | IPNPDOC ---
Subjective Date Seen The patient was seen on 10/15/19. Subjective Chief Complaint/HPI Tania is comfortable offers no new complaints. Scheduled for HD today General: Denies: ROS Unobtainable, Chills, Night Sweats, Fatigue, Malaise, Normal Appetite, Other Symptoms Skin: Denies: Rash, Lesions, Jaundice, Bruising, Itching, Dry, Breakdown, Nail Changes, Other Pulmonary: Denies: Dyspnea, Cough, Pleuritic Chest Pain, Other Symptoms Cardiovascular: Denies: Chest Pain, Palpitations, Orthopnea, Paroxysmal Noc. Dyspnea, Edema, Lt Headedness, Other Symptoms Gastrointestinal: Denies: Nausea, Vomiting, Abdominal Pain, Diarrhea, Constipation, Melena, Hematochezia, Other Symptoms Musculoskeletal: Denies: Neck Pain, Back Pain, Shoulder Pain, Arm Pain, Hand Pain, Leg Pain, Foot Pain, Joint Pain, Muscle Pain, Spasms, Other Symptoms Neurological: Denies: Weakness, Numbness, Incoordination, Change in speech, Confusion, Seizures, Other Symptoms Objective Physical Examination General Exam: Positive: Alert, Cooperative Eye Exam: Positive: PERRLA, Conjunctiva & lids normal ENT Exam: Positive: Atraumatic, Mucous membr. moist/pink Neck Exam: Positive: Supple Chest Exam: Positive: Other (. Bilateral week. He is wheezing and rhonchi is audible on both sides of the lungs) Heart Exam: Positive: Rate Normal, Normal S1, Normal S2 Abdomen Exam: Positive: Normal bowel sounds, Soft, Tenderness Extremity Exam: Positive: Normal pulses Skin Exam: Positive: Nl turgor and temperature Neuro Exam: Positive: Strength at 5/5 X4 ext, Normal Tone, Cranial Nerves 3-12 NL Psych Exam: Positive: Anxiety, Oriented x 3 Assessment /Plan Problems (1) Parainfluenza virus bronchitis Status: Acute Problem Text: Continue DuoNeb Oxygen support Patient's clinical status is improving Most likely will be discharged tomorrow if she continues her progress (2) Pulmonary interstitial fibrosis Status: Chronic Problem Text: Continue home meds (3) Multiple myeloma, failed remission Status: Chronic Problem Text: Continue home meds (4) 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 Problem Text: Continue anticoagulation with Coumadin All INR (5) ESRD (end stage renal disease) Status: Chronic Problem Text: Nephrology consult appreciated HDS per nephrology (6) Bronchitis with bronchospasm Status: Acute Problem Text: Improving status Continue conservative medical management Plan/VTE VTE Prophylaxis Ordered?: Yes VS, I&O, 24H, Fishbone Vital Signs/I&O Vital Signs Date Time Temp Pulse Resp B/P (MAP) Pulse Ox O2 Delivery O2 Flow Rate FiO2 10/15/19 05:08 98.6 76 17 119/55 (76) 99 Room Air 10/14/19 09:30 2.0 I&O- Last 24 Hours up to 6 AM 10/15/19 06:00 Intake Total 2480 ml Output Total 1200 ml Balance 1280 ml Laboratory Data 24H LABS Laboratory Tests 2 10/15/19 05:42: Immature Granulocyte % (Auto) 0.8, Neutrophils (%) (Auto) 87.1H, Lymphocytes (%) (Auto) 6.1L, Monocytes (%) (Auto) 5.5H, Eosinophils (%) (Auto) 0.3, Basophils (%) (Auto) 0.2, Neutrophils # (Auto) 5.6, Lymphocytes # (Auto) 0.4L, Monocytes # (Auto) 0.4, Eosinophils # (Auto) 0.0, Basophils # (Auto) 0.0, Nucleated Red Blo od Cells % (auto) 0.0, Prothrombin Time 34.9H, Prothromb Time International Ratio 3.47, Anion Gap 10, Glomerular Filtration Rate 7.7L, Calcium Level 8.0L, Total Bilirubin 0.7, Aspartate Amino Transf (AST/SGOT) 16, Alanine Aminotransferase (ALT/SGPT) 19, Alkaline Phosphatase 64, Total Protein 6.1L, A lbumin 2.5L, Albumin/Globulin Ratio 0.69L CBC/BMP Laboratory Tests 10/15/19 05:42 Microbiology Microbiology 10/13/19 Respiratory Virus Panel (PCR) (AIDEE) - Final, Complete Parainfluenza 1 (Piv1) 10/13/19 Blood Culture - Preliminary, Resulted No Growth after 48 hours. All Specime... 10/13/19 Blood Culture - Preliminary, Resulted No Growth after 48 hours. All Specime... FLORENCIA EUCEDA MD Oct 15, 2019 11:56
--- NOTE | 2019-10-15 12:18 | IPN ---
DATE OF VISIT: 10/15/2019 Mrs. Turner is seen this morning on her bedside during hemodialysis. She has worsening cough and shortness of breath. She was admitted on Friday after dialysis due to shortness of breath and cough. No infiltrate was noticed on her chest CT scan. She is being treated for possible bronchitis. Her cough seems to be worsening and she is more short of breath as she was given some IV fluids on admission day. She denies any nausea or vomiting and her colostomy is functioning. On physical examination, temperature 98.6 degrees Fahrenheit, heart rate 76 per minute and respiratory rate 20 per minute. Blood pressure 109/55 mmHg and oxygen saturation 99% on room air. She has persistent cough and not feeling comfortable during dialysis. Her head is atraumatic. Neck is supple and jugular venous distention (JVD) mildly elevated. Heart sounds are regular and lungs have bilateral rhonchi. Abdomen: Soft and nontender. Bowel sounds are present. Extremities have no cyanosis or clubbing. Neurologically, she is awake, alert and oriented times three. Her respiratory culture came back positive for parainfluenza. Her WBC count is 6.7, hemoglobin 7.9 and hematocrit 24.2. Platelets 153. Sodium 137, potassium 3.4, CO2 24, BUN 38 and creatinine 5.78. Total protein 6.1 and albumin 2.5. PROBLEMS: 1. End-stage renal disease. The patient is due for dialysis and being dialyzed today. She will complete her treatment. 2. Cough and shortness of breath, most likely this is related to parainfluenza. She is also somewhat volume overloaded as she was given IV fluid on day of admission. We are trying to remove about 1.8 liters of fluid today and we will see how she tolerates. 2. Hypokalemia related to poor oral intake. We will give her potassium chloride 20 mEq one dose today. Electrolytes will be checked again tomorrow morning. 3. Anemia. Her anemia did get worse without any active bleeding. This is most likely related to her multiple myeloma chemotherapy and end-stage renal disease. We will monitor her closely and transfuse her if needed.
[2019-10-15] MEDS ORDERED: HEPARIN 1,000 UNITS/ML 10ML VIAL (FOR RADIOLOGY& DIALYSIS ONLY) IV ONE (12:45)
[2019-10-15] MEDS ORDERED: HEPARIN 1,000 UNITS/ML 10ML VIAL (FOR RADIOLOGY& DIALYSIS ONLY) XX ONE (12:45)
[2019-10-15 14:14] VITALS: BP 94/54
[2019-10-15] MEDS ORDERED: WARFARIN SOD 5 MG TAB PO SCH (17:00)
[2019-10-15 22:00] VITALS: BP 94/52
[2019-10-16] MEDS: IPRATROPIUM 0.5MG/ALBUTEROL 2.5MG INH SOL UD 3ML (DUONEB)(J7620) NEB SCH ×2 (02:00→08:10)
[2019-10-16] MEDS: LEVOTHYROXINE 50MCG TABLET (0.05MG) PO SCH (05:33)
[2019-10-16 06:00] VITALS: BP 114/56
[2019-10-16 07:06] LABS: BASO % 0.2 % (0.0-1.0); EOS % 0.7 % (0.0-3.0); HEMATOCRIT 26.2 % (36.0-47.0); HEMOGLOBIN 8.3 g/dl (12.0-15.5); LYMPH # 0.4 10^3/uL (1.5-5.0); LYMPH % 7.7 % (24.0-44.0); MEAN CORPUSCULAR HGB CONC 31.7 g/dl (32.0-36.5); MEAN CORPUSCULAR VOLUME 107.4 fl (80.0-96.0); MONO # 0.4 10^3/uL (0.0-0.8); MONO % 6.4 % (0.0-5.0); NEUTROPHILS # 4.6 10^3/uL (1.5-8.5); NEUTROPHILS % 83.9 % (36.0-66.0); PLATELET COUNT, AUTOMATED 178 10^3/uL (150-450); RED BLOOD COUNT 2.44 10^6/uL (4.00-5.40); WHITE BLOOD COUNT 5.5 10^3/uL (4.0-10.0)
[2019-10-16 07:20] LABS: PROTHROMBIN TIME 22.4 SECONDS (11.8-14.0)
[2019-10-16 07:44] LABS: ALBUMIN 2.5 GM/DL (3.2-5.2); BILIRUBIN,TOTAL 1.5 MG/DL (0.2-1.0); CREATININE FOR GFR 4.39 MG/DL (0.55-1.30); GLOMERULAR FILTRATION RATE 10.5 (>39); POTASSIUM SERUM 3.9 MEQ/L (3.5-5.1); TOTAL PROTEIN 6.1 GM/DL (6.4-8.2)
[2019-10-16] MEDS: (RENVELA) SEVELAMER **CARBONate** 800 MG TAB PO SCH (08:00)
[2019-10-16] MEDS: guaiFENesin DM LIQ 10ML UD PO SCH (09:00)
[2019-10-16] MEDS: SODIUM CHLORIDE 0.9% INJ 10 ML SYR IV SCH (09:36)
[2019-10-16] MEDS: VITAMIN D 1,000 INTERNATIONAL UNITS TABLET PO SCH (09:36)
[2019-10-16] MEDS ORDERED: PROV108A INH (10:11)
--- NOTE | 2019-10-16 12:42 | DS.PDOC ---
Discharge Summary General Date of Admission Oct 13, 2019 at 09:29 Date of Discharge 10/13/19 Discharge Summary PROCEDURES PERFORMED DURING STAY: None. ADMITTING DIAGNOSES: 1. Acute bronchitis with bronchospasm. DISCHARGE DIAGNOSES: 1. Acute viral bronchitis with bronchospasm, multiple myeloma, peripheral neuropathy, secondary hyperparathyroidism, end-stage renal disease on hemodialysis, anemia of chronic disease and iron deficiency anemia, hypothyroidism. COMPLICATIONS/CHIEF COMPLAINT: Bronchitis With Bronchospasm. HISTORY OF PRESENT ILLNESS: This is 74 years old female with past medical history of IgG multiple myeloma. Peripheral neuropathy , secondary hyperparathyroidism, end-stage renal disease on hemodialysis, anemia. Postoperative neuralgia Crohn's disease, TIA, hypothyroidism, went to dialysis today, she complained of right-sided chest pain along with shortness of breath. She had recently finished a course of Levaquin for URI. Patient finished her dialysis and was referred to emergency room for further workup. According to patient, chest pain is sharp, intermittent, nonradiating, worsening with inspiration and coughing, not relieved with any meds. Associated with shortness of breath since this morning. No fever, no nausea, vomiting, diarrhea, delusion altered mental status, etc.. HOSPITAL COURSE: 74 years old white female, ex-smoker with past medical history of multiple medical problems including multiple myeloma have antibiotics Cell transplant on chemotherapy, peripheral neuropathy affecting lower extremities, end-stage renal disease on hemodialysis 3 times a week is status post left AV fistula placement, which was subsequently removed secondary to clots. 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 Crohn's disease status post colectomy and ostomy TIA, hypothyroidism, status post appendectomy, status post resection of basal cell carcinoma, status post right arm melanoma resection was transferred from a hemodialysis unit when patient complained of right-sided chest pain and shortness of breath after getting the dialysis. Patient had a chest x-ray done which showed mild diffuse interstitial fibrosis but no infiltrate, Lactic acid 1.7. BNP 620, BUN 24, creatinine 3.61. CBC is within normal range. On examination, patient is a bilateral wheezing and scattered rhonchi and basal crackles. Patient is being admitted with parainfluenza virus induced viral bronchitis with bronchospasm. Patient was initially admitted to [facility] and is started on DuoNeb every 6 hours and every 2 hours when necessary Dexamethasone was continued and conservative medical management was continued She was seen by Dr. Mckenzie from nephrology and received her scheduled dialysis as well Patient is to do is asymptomatic, comfortable discuss with Dr. Mckenzie patient can be discharged home. Her CBC, CMP essentially within normal range and her INR is also 2.0 and will continue the home dose of Coumadin and follow with Dr. Mckenzie as per schedule. . DISCHARGE MEDICATIONS: Please see below. ALLERGIES: Please see below. PHYSICAL EXAMINATION ON DISCHARGE: VITAL SIGNS: Please see below. GENERAL: Within normal limits HEENT: PERRLA. Extraocular muscles intact NECK: Supple CARDIOVASCULAR EXAMINATION: S1, S2, regular RESPIRATORY EXAMINATION: Clear to A&P ABDOMINAL EXAMINATION: , Soft, nontender, bowel sounds present EXTREMITIES: No clubbing, cyanosis, edema SKIN: Within normal limits NEUROLOGICAL EXAMINATION: . No focal motor sensory deficit PSYCHIATRIC EXAMINATION: Normal LABORATORY DATA: Please see below. IMAGING: Rest x-ray:Hyperinflation. Mild diffuse interstitial fibrosis pattern. No acute infiltrate. Central venous catheter is noted in the superior and inferior vena cava PROGNOSIS: Good ACTIVITY: As tolerated. DIET: As tolerated DISCHARGE PLAN: Follow with Dr. Mckenzie as a scheduled DISPOSITION: 01 Home, Self-Care. DISCHARGE INSTRUCTIONS: 1. As per discharge instructions. ITEMS TO FOLLOWUP ON ON OUTPATIENT: 1. Follow with Dr. Mckenzie as per schedule. DISCHARGE CONDITION: Stable. TIME SPENT ON DISCHARGE: 46 minutes. Vital Signs/I&Os Vital Signs Date Time Temp Pulse Resp B/P (MAP) Pulse Ox O2 Delivery O2 Flow Rate FiO2 10/16/19 06:00 98.2 80 18 114/56 (75) 96 Room Air 10/14/19 09:30 2.0 I&O- Last 24 Hours up to 6 AM 10/16/19 06:00 Intake Total 1010 ml Output Total 1300 ml Balance -290 ml Laboratory Data Labs 24H Laboratory Tests 2 10/16/19 06:46: Immature Granulocyte % (Auto) 1.1, Neutrophils (%) (Auto) 83.9H, Lymphocytes (%) (Auto) 7.7L, Monocytes (%) (Auto) 6.4H, Eosinophils (%) (Auto) 0.7, Basophils (%) (Auto) 0.2, Neutrophils # (Auto) 4.6, Lymphocytes # (Auto) 0.4L, Monocytes # (Auto) 0.4, Eosinophils # (Auto) 0.0, Basophils # (Auto) 0.0, Nucleated Red Blood Cells % (auto) 0.0, Prothrombin Time 22.4H, Prothromb Time International Ratio 2.00, Anion Gap 11, Glomerular Filtration Rate 10.5L, Calcium Level 9.0, Total Bilirubin 1.5#H, Aspartate Amino Transf (AST/SGOT) 16, Alanine Aminotransferase (ALT/SGPT) 15, Alkaline Phosphatase 63, Total Protein 6.1L, Albumin 2.5L, Albumin/Globulin Ratio 0.69L CBC/BMP Laboratory Tests 10/16/19 06:46 Microbiology Microbiology 10/13/19 Respiratory Virus Panel (PCR) (AIDEE) - Final, Complete Parainfluenza 1 (Piv1) 10/13/19 Blood Culture - Preliminary, Resulted No Growth after 72 hours. All specime... 10/13/19 Blood Culture - Preliminary, Resulted No Growth after 72 hours. All specime... Discharge Medications Scheduled Albuterol Sulfate (Proventil Hfa) 6.7 Gm Hfa.aer.ad, 2 PUFF INH Q4H for wheezing Cholecalciferol (Vitamin D3) (Vitamin D3) 2,000 Unit Tablet, 2,000 UNIT PO DAILY, (Reported) Cyclosporine (Restasis) 0.05% Droperette, 1 DROP OU BID, (Reported) Dexamethasone (Dexamethasone) 4 Mg Tab, 12 MG PO ASDIRECTED TAKES DAYS 1,8,15,22 - LAST DOSE WAS DAY 1 OF CYCLE Diphenhydramine HCl (Benadryl) 25 Mg Capsule, 25 MG PO 3XW, (Reported) TAKE PRIOR TO DIALYSIS ON M,W,F Levothyroxine Sodium (Levoxyl) 50 Mcg Tablet, 50 MCG PO DAILY, (Reported) Lipase/Protease/Amylase (Mate[place] Dr 36,000 Units Capsule) 1 Each Capsule.dr, 2 CAP PO WM, (Reported) Lipase/Protease/Amylase (Pratibha Dr 36,000 Units Capsule) 1 Each Capsule.dr, 1 CAP PO ASDIRECTED, (Reported) WITH SNACKS [place]-3 Fatty Acids/Fish Oil (Fish Oil 1,000 mg Capsule) 1 Each Capsule, 1,000 MG PO QHS, (Reported) Sevelamer Carbonate (Renvela) 800 Mg Tablet, 800 MG PO WM, (Reported) Warfarin Sodium (Coumadin) 5 Mg Tablet, 5 MG PO 3XW, (Reported) MON/WED/FRI AT 1500 Warfarin Sodium (Coumadin) 7.5 Mg Tablet, 7.5 MG PO 4XWK, (Reported) TUE/THURS/SAT/SUN AT 1500 Scheduled PRN Hydrocodone/Acetaminophen (Hydrocodone-Acetamin 5-325 mg) 1 Each Tablet, 1 TAB PO Q6H PRN for PAIN, (Reported) Ondansetron HCl (Ondansetron HCl) 8 Mg Tablet, 8 MG PO Q6H PRN for NAUSEA OR VOMITING TAKE ONE TABLET EVERY 6 HOURS NEEDED FOR NAUSEA. Allergies Coded Allergies: vancomycin (Verified Allergy, Intermediate, RASH/ITCHING, 03/26/19) FLORENCIA EUCEDA MD Oct 16, 2019 12:42
--- NOTE | 2019-10-16 13:07 | IPN ---
DATE: 10/16/2019 SUBJECTIVE: Patient is a 74-year-old female who was seen laying in her bed in the gym on [address]. Patient says she is feeling much better and is asking if she is able to go home. Patient says she does not have shortness of breath at rest but does get shortness of breath and coughing spells when she is active. Patient received hemodialysis yesterday, where 1300 mL of fluid was removed and patient is feeling much better. PHYSICAL EXAMINATION: Vitals: Temperature 98.2, pulse 80, respiratory rate 18, blood pressure 114/56, pulse oximetry 96% on room air. General: Patient is an alert and oriented female who is laying in her hospital bed. Patient was in no acute distress. HEENT was Normocephalic, atraumatic, with anicteric sclerae. Neck was supple with no jugular venous distention (JVD). Cardiovascular was regular rate and rhythm with no murmurs. Lungs were clear to auscultation bilaterally. Abdomen was soft and nontender. Extremities showed no cyanosis. LABORATORY: White blood cells 5.5, hemoglobin 8.3, hematocrit 26.2, platelet count 178. Sodium 135, potassium 3.9, chloride 100, carbon dioxide 24, BUN 24, creatinine 4.39, glucose 104, calcium 9.0, total bilirubin 1.5, AST 16, ALT 15, alkaline phosphatase 63, total protein 6.1, albumin 2.5. ASSESSMENT AND PLAN: 1. End-stage renal disease. Patient received dialysis yesterday, and she regularly receives dialysis on a Friday, Friday, Friday schedule. 2. Cough, shortness of breath. Most likely this is related to parainfluenza virus. She was somewhat volume overloaded. She was given IV fluids on the day of admission. Patient had 1.3 liters of fluid removed yesterday, and she is tolerating it well. 3. Hypokalemia secondary to poor oral intake. She was given potassium chloride and her potassium is normal today. 4. Anemia. Her anemia is getting slightly better today. DISPOSITION: Patient is doing well and can be discharged home today. [facility]
== END 2019-10-16 11:50 | disposition home or self-care (01) ==
LOC: M ED 09:28 → M ED INP 09:29 → M MS5PR 15:35
PROVIDERS: ADMIT Internal Medicine; ATTEND Internal Medicine
DX: J20.8 Acute bronchitis due to other specified organisms (principal); J12.2 Parainfluenza virus pneumonia; E87.6 Hypokalemia; D63.1 Anemia in chronic kidney disease; C90.00 Multiple myeloma not having achieved remission; G62.9 Polyneuropathy, unspecified; N25.81 Secondary hyperparathyroidism of renal origin; N18.6 End stage renal disease; Z99.2 Dependence on renal dialysis; D50.9 Iron deficiency anemia, unspecified; B02.29 Other postherpetic nervous system involvement; E03.9 Hypothyroidism, unspecified; K50.90 Crohn's disease, unspecified, without complications; J84.10 Pulmonary fibrosis, unspecified; R07.9 Chest pain, unspecified; R06.02 Shortness of breath; Z86.73 Personal history of transient ischemic attack (TIA), and cerebral infarction without residual deficits; Z87.891 Personal history of nicotine dependence; Z79.899 Other long term (current) drug therapy; Z79.01 Long term (current) use of anticoagulants; Z88.1 Allergy status to other antibiotic agents; Z86.718 Personal history of other venous thrombosis and embolism
CPT/HCPCS: 36415; 71045; 80048; 80053; 82550; 82553; 83605; 83880; 84484; 85025; 85027; 85610; 87040; 87486; 87581; 87633; 87798; 93005; 93041; 94640; 94760; 96360; 96361; 99285; G0257; G0378

== ENCOUNTER → 2019-10-18 | Outpatient (CLI) | payer MEDICARE, OTHER ==
[~2019-10-18] MED LIST changes: +COUM7.5T PO; +D 202000 PO; +PROV108A INH
[2019-10-18 13:54] LABS: INR 1.28; PROTHROMBIN TIME 15.7 SECONDS (11.8-14.0)
== END ==
LOC: M PLALAB 09:29
PROVIDERS: ATTEND Family Medicine
DX: Z79.01 Long term (current) use of anticoagulants (principal)

== ENCOUNTER 2019-10-21 10:12 | Inpatient (IN) | payer MEDICARE, OTHER ==
[~2019-10-21] VITALS: Ht 162.6 cm; Wt 53.2 kg
[2019-10-21] MEDS ORDERED: ALBUTEROL SULFATE 2.5 MG/0.5 ML INH NEB SOLN INH ONE (10:45)
[2019-10-21] MEDS ORDERED: IPRATROPIUM 0.5MG/ALBUTEROL 2.5MG INH SOL UD 3ML (DUONEB)(J7620) NEB ONE (10:45)
[2019-10-21] MEDS ORDERED: dexameTHASONE 20 MG/5 ML VIAL (J1100) IV ONE (10:45)
[2019-10-21 11:16] LABS: VENOUS BASE EXCESS 5.3 (-2.0-2.0); VENOUS HCO3 28.4 MEQ/L (23.0-27.0); VENOUS O2 SATURATION 79.3 % (60.0-80.0); VENOUS PARTIAL PRESSURE CO2 35.8 mmHg (38.0-50.0); VENOUS PH 7.517 UNITS (7.330-7.430); VENOUS STANDARD HCO3 28.9 MEQ/L; VENOUS TOTAL CO2 29.5 MEQ/L (24.0-28.0)
[2019-10-21 11:19] LABS: BASO % 0.1 % (0.0-1.0); EOS % 0.3 % (0.0-3.0); HEMATOCRIT 28.2 % (36.0-47.0); HEMOGLOBIN 9.1 g/dl (12.0-15.5); LYMPH # 0.6 10^3/uL (1.5-5.0); MEAN CORPUSCULAR HEMOGLOBIN 34.5 pg (27.0-33.0); MEAN CORPUSCULAR HGB CONC 32.3 g/dl (32.0-36.5); MEAN CORPUSCULAR VOLUME 106.8 fl (80.0-96.0); MONO # 0.5 10^3/uL (0.0-0.8); MONO % 4.1 % (0.0-5.0); NEUTROPHILS # 11.5 10^3/uL (1.5-8.5); PLATELET COUNT, AUTOMATED 238 10^3/uL (150-450); RED BLOOD COUNT 2.64 10^6/uL (4.00-5.40); WHITE BLOOD COUNT 12.8 10^3/uL (4.0-10.0)
[2019-10-21] MEDS: SODIUM CHLORIDE 0.9% INJ 10 ML SYR IV PRN (11:23)
--- NOTE | 2019-10-21 11:29 | REP ---
CHEST, SINGLE VIEW: Single view of the chest is performed and compared to a prior study of 10/13/2019. There is mild bilateral interstitial fibrotic change which is stable. There is no acute infiltrate. Left costophrenic angle is not visualized. Heart is normal in size. There is a calcification of the thoracic aorta. The mediastinal silhouette is unchanged. Right central venous catheter is again noted. Tip is in the superior vena cava. Metallic clips are seen in the bilateral axillary regions. There is a stent in the left axillary region. IMPRESSION: Stable exam. No acute infiltrate. Electronically Signed by Justin Ugalde MD 10/21/2019 01:45 P
[2019-10-21 11:30] LABS: INR 2.17
[2019-10-21 12:11] LABS: ALT/SGPT 16 U/L (12-78); BILIRUBIN,DIRECT 0.2 MG/DL (0.0-0.2); BILIRUBIN,TOTAL 0.9 MG/DL (0.2-1.0); BLOOD UREA NITROGEN 40 MG/DL (7-18); CALCIUM LEVEL 8.9 MG/DL (8.8-10.2); CARBON DIOXIDE LEVEL 30 MEQ/L (21-32); CHLORIDE LEVEL 98 MEQ/L (98-107); CK-MB VALUE MASS < 1.0 NG/ML (<3.6); CPK CREATINE PHOSPHOKINASE 49 U/L (26-192); CREATININE FOR GFR 6.47 MG/DL (0.55-1.30); GLOMERULAR FILTRATION RATE 6.7 (>39); GLUCOSE, FASTING 138 MG/DL (70-100); MB/CK RELATIVE INDEX 2.04 (< OR =4); NT-PRO BNP 807 PG/ML (<125); POTASSIUM SERUM 3.7 MEQ/L (3.5-5.1); SODIUM LEVEL 138 MEQ/L (136-145); THYROXINE (T4) 12.7 UG/DL (4.5-12.0); TOTAL PROTEIN 6.9 GM/DL (6.4-8.2); TROPONIN I < 0.02 NG/ML (< 0.10)
[2019-10-21] MEDS ORDERED: NS 500 ML IV ONE (12:30)
[2019-10-21] MEDS ORDERED: PROV108A INH (13:13)
--- NOTE | 2019-10-21 14:30 | REP ---
CT CHEST WITHOUT IV CONTRAST: CT chest performed without IV contrast and compared to prior study of 09/20/2019. There is minimal scattered fibrotic change in the lungs. There is acute interstitial infiltrate inferiorly and posteriorly in the right lower lobe. No other acute abnormalities are seen. Heart is normal in size. There is no pleural or pericardial effusion. No axillary or mediastinal adenopathy is seen. There is again a right central venous catheter unchanged in position. There is a catheter in the inferior vena cava terminating just above the level of the diaphragms, unchanged. There is mild calcification of the thoracic aorta with no aneurysm. There are degenerative changes of the spine. There is evidence of prior vertebroplasty of T11, T12, and L1. There is bilateral renal atrophy with small cysts of the kidneys. IMPRESSION: Minimal scattered fibrotic changes in the lungs. There is mild acute interstitial infiltrate in the right lower lobe. Electronically Signed by Justin Ugalde MD 10/21/2019 05:14 P
[2019-10-21] MEDS ORDERED: NORCO, ANEXSIA 5/325MG TABLET (HYDROcodone/ACETAMINOPHEN) PO PRN (15:00)
[2019-10-21] MEDS ORDERED: ONDANSETRON 4 MG TAB (S0181) PO PRN (15:00)
[2019-10-21 15:30] VITALS: BP 90/50
--- NOTE | 2019-10-21 17:12 | HPEPDOC ---
[facility] Medical History & Physical Date of Admission Oct 21, 2019 Date of Service: Oct 21, 2019 Attending Physician: DEVIN PEREZ MD History and Physical CHIEF COMPLAINT: SOB HISTORY OF PRESENT ILLNESS: 74 y.o female w/ PMH of Multiple Myeloma, Crohn's disease s/p Colectomy & ileostomy, hypothyroidism, TIA & ESRD on HD MWF presents from home with worsening dyspnea. She was recently admitted for viral URI, discharged on 10/16, reports worsening of dyspnea & hypoxemia since discharge. She went to HD yesterday, was noted to be hypoxemic & home O2 was arranged for the patient, which she received last night. She remained on O2 overnight, reports persistent worsening of dyspnea, especially with exertion so she decided to return to the hospital. She denies any associated symptoms, including fever, joint pain, worsening cough or change in sputum production. She also denies any CP, nausea, vomiting, abdominal pain or diarrhea. She has no additional complaints at this time. She was found to have elevated lactate & soft BP, received 500 ml bolus in the ED. She underwent HD yesterday which was cut short due to her dyspnea & hypoxemia, only tolerated ~2 hours. 10 point review of system is negative except for above. PAST MEDICAL HISTORY: 1. Multiple Myeloma 2. Crohn's disease 3. Hypothyroidism 4. TIA 5. ESRD PAST SURGICAL HISTORY: 1. Colectomy 2. Permacath 3. AV fistula SOCIAL HISTORY: never smoker denies alcohol use denies drug use FAMILY HISTORY: Mother had heart disease ALLERGIES: Please see below. HOME MEDICATIONS: Please see below. PHYSICAL EXAMINATION: VITAL SIGNS: See below GENERAL APPEARANCE: No distress HEENT: Normocephalic, atraumatic, moist mucus membranes CARDIOVASCULAR: S1, S2 LUNGS: basilar rhonchi ABDOMEN: soft, non-tender, non-distended, ileostomy w/ stool noted EXTREMITIES: ROM intact NEUROLOGICAL: no focal deficits PSYCHIATRIC: calm & cooperative LABORATORY DATA: See below. IMAGING: CT chest with mild acute interstitial infiltrate in RLL MICROBIOLOGY: Please see below. ASSESSMENT: 74 y.o female w/ PMH of Multiple Myeloma (on chemotherapy), ESRD on HD MWF, Crohn's disease s/p colectomy & ileostomy, Hypothyroidism & TIA returns with worsening dyspnea & hypoxemia after recent admission for viral URI. PLAN: 1. Dyspnea & hypoxemia - likely viral URI but given patient's immunosuppression & worsening of symptoms along with development of acute RLL interstitial infiltrate, will start Zyvox/Cefepime empirically, Procal & blood cultures pending, will discontinue antibiotics if low suspicion for superimposed bacterial infection, repeat res piratory viral panel is positive for Parainfluenza, which is the likely cause of patient's symptoms. Supplemental oxygen to maintain O2 sats 88-92%. 2. Multiple Myeloma - relapsed in 2018, currently on 3rd line treatment, will follow outpatient for further management. 3. ESRD - HD MWF, last HD yesterday (tolerated ~2 hours), appears volume depleted due to poor oral intake over the past 48 hours, received 500 ml NS in the ED, will monitor w/o further IV fluids for now. Nephrology consulted for further HD, continue Renvela. 4. DVT - continue coumadin, INR therapeutic, trend daily. 5. Hypothyroidism - continue Levothyroxine 6. Crohn's disease - s/p colectomy & ileostomy, stable. DVT Prophylaxis - Coumadin GI Prophylaxis - none Vital Signs Vital Signs Date Time Temp Pulse Resp B/P (MAP) Pulse Ox O2 Delivery O2 Flow Rate FiO2 10/21/19 14:45 99.2 79 20 112/54 (73) 99 Nasal Cannula 2.0 Laboratory Data Labs 24H Laboratory Tests 2 10/21/19 10:55: Immature Granulocyte % (Auto) 0.5, Neutrophils (%) (Auto) 90.0H, Lymphocytes (%) (Auto) 5.0L, Monocytes (%) (Auto) 4.1, Eosinophils (%) (Auto) 0.3, Basophils (%) (Auto) 0.1, Neutrophils # (Auto) 11.5H, Lymphocytes # (Auto) 0.6L, Monocytes # (Auto) 0.5, Eosinophils # (Auto) 0.0, Basophils # (Auto) 0.0, Nucleated Red Blood Cells % (auto) 0.0, Prothrombin Time 24.0H, Prothromb Time International Ratio 2.17, Blood Gas Bicarbonate Standard 28.9, Venous Blood pH 7.517H, Venous Blood Partial Pressure CO2 35.8L, Venous Blood Partial Pressure O2 41.0, Venous Blood Total Carbon Dioxide 29.5H, Venous Blood HCO3 28.4H, Venous Blood Oxygen Saturation 79.3, Venous Blood Base Excess 5.3H, Anion Gap 10, Glomerular Filtration Rate 6.7L, Lactic Acid Level 3.7*H, Calcium Level 8.9, Total Bilirubin 0.9, Direct Bilirubin 0.2, Aspartate Amino Transf (AST/SGOT) 14, Alanine Aminotransferase (ALT/SGPT) 16, Alkaline Phosphatase 81, Total Creatine Kinase 49, Creatine Kinase MB < 1.0, Creatine Kinase MB Relative Index 2.04, Troponin I < 0.02, DT-Ikj-F-Type Natriuretic Peptide 807H, Total Protein 6.9, Albumin 3.0L, Albumin/Globulin Ratio 0.77L, Thyroid Stimulating Hormone (TSH) 2.090, Thyroxine (T4) 12.7H 10/21/19 15:24: Lactic Acid Followup at 4 Hours 2.4*H CBC/BMP Laboratory Tests 10/21/19 10:55 Microbiology Microbiology 10/21/19 Respiratory Virus Panel (PCR) (AIDEE) - Final, Complete Parainfluenza 1 (Piv1) 10/21/19 Blood Culture, Received Pending 10/21/19 Blood Culture, Received Pending Home Medications Scheduled Cholecalciferol (Vitamin D3) (Vitamin D3) 2,000 Unit Tablet, 2,000 UNIT PO DAILY Cyclosporine (Restasis) 0.05% Droperette, 1 DROP OU BID Dexamethasone (Dexamethasone) 4 Mg Tab, 12 MG PO ASDIRECTED TAKES DAYS 1,8,15,22 - LAST DOSE WAS DAY 1 OF CYCLE Diphenhydramine HCl (Benadryl) 25 Mg Capsule, 25 MG PO 3XW TAKE PRIOR TO DIALYSIS ON M,W,F Levothyroxine Sodium (Levoxyl) 50 Mcg Tablet, 50 MCG PO DAILY Lipase/Protease/Amylase (Pratibha Pandey 36,000 Units Capsule) 1 Each Capsule., 2 CAP PO WM Lipase/Protease/Amylase (Pratibha Pandey 36,000 Units Capsule) 1 Each Capsule.dr, 1 CAP PO ASDIRECTED WITH SNACKS [place]-3 Fatty Acids/Fish Oil (Fish Oil 1,000 mg Capsule) 1 Each Capsule, 1,000 MG PO QHS Sevelamer Carbonate (Renvela) 800 Mg Tablet, 800 MG PO WM Warfarin Sodium (Coumadin) 5 Mg Tablet, 5 MG PO 2XW MON, WED Warfarin Sodium (Coumadin) 7.5 Mg Tablet, 7.5 MG PO 5XW SUN, TUES, THURS, SAT, SUN Scheduled PRN Albuterol Sulfate (Proventil Hfa) 6.7 Gm Hfa.aer.ad, 2 PUFF INH QID PRN for SHORTNESS OF BREATH Hydrocodone/Acetaminophen (Hydrocodone-Acetamin 5-325 mg) 1 Each Tablet, 1 TAB PO Q6H PRN for PAIN Ondansetron HCl (Ondansetron HCl) 8 Mg Tablet, 8 MG PO Q6H PRN for NAUSEA OR VOMITING TAKE ONE TABLET EVERY 6 HOURS NEEDED FOR NAUSEA. Allergies Coded Allergies: vancomycin (Verified Allergy, Intermediate, RASH/ITCHING, 03/26/19) A-FIB/CHADSVASC A-FIB History Current/History of A-Fib/PAF?: No DEVIN PEREZ MD Oct 21, 2019 17:12
[2019-10-21] MEDS ORDERED: CEFEPIME HCL 1 GM in D5W MINI-BAG PLUS 50 ML IV ONE (17:15)
[2019-10-21] MEDS: (RENVELA) SEVELAMER **CARBONate** 800 MG TAB PO SCH (17:25)
[2019-10-21] MEDS: WARFARIN SOD 7.5 MG TAB PO SCH (17:25)
[2019-10-21] MEDS ORDERED: NS 250 ML IV ONE (18:00)
[2019-10-21] MEDS: LINEZOLID 600MG TABLET (ZYVOX) PO SCH (20:40)
[2019-10-21 20:49] VITALS: BP 86/48
[2019-10-21] MEDS ORDERED: HYDROCORTISONE 100 MG/2 ML VIAL (J1720 PER 1) IV ONE (21:45)
[2019-10-21] MEDS ORDERED: SODIUM CHLORIDE 0.9% 1000ML IV ONE (21:45)
[2019-10-22 01:01] VITALS: BP 102/56
[2019-10-22] MEDS: LEVOTHYROXINE 50MCG TABLET (0.05MG) PO SCH (05:33)
[2019-10-22 05:42] VITALS: BP 108/59
[2019-10-22 06:40] LABS: HEMATOCRIT 25.8 % (36.0-47.0); HEMOGLOBIN 8.2 g/dl (12.0-15.5); MEAN CORPUSCULAR HEMOGLOBIN 33.9 pg (27.0-33.0); MEAN CORPUSCULAR HGB CONC 31.8 g/dl (32.0-36.5); MEAN CORPUSCULAR VOLUME 106.6 fl (80.0-96.0); PLATELET COUNT, AUTOMATED 220 10^3/uL (150-450); RED BLOOD COUNT 2.42 10^6/uL (4.00-5.40); WHITE BLOOD COUNT 10.6 10^3/uL (4.0-10.0)
[2019-10-22 06:49] LABS: INR 3.03; PROTHROMBIN TIME 31.3 SECONDS (11.8-14.0)
[2019-10-22] MEDS: (RENVELA) SEVELAMER **CARBONate** 800 MG TAB PO SCH ×3 (06:53→17:53)
[2019-10-22 07:11] LABS: ALBUMIN 2.7 GM/DL (3.2-5.2); BILIRUBIN,TOTAL 0.5 MG/DL (0.2-1.0); CALCIUM LEVEL 8.6 MG/DL (8.8-10.2); CREATININE FOR GFR 6.98 MG/DL (0.55-1.30); GLOMERULAR FILTRATION RATE 6.2 (>39); POTASSIUM SERUM 4.1 MEQ/L (3.5-5.1); TOTAL PROTEIN 6.5 GM/DL (6.4-8.2)
[2019-10-22] MEDS: LINEZOLID 600MG TABLET (ZYVOX) PO SCH ×2 (08:39→20:14)
[2019-10-22] MEDS: diphenhydrAMINE 25 MG CAP PO PRN (11:18)
--- NOTE | 2019-10-22 12:19 | CR ---
DATE OF CONSULTATION: 10/22/2019 REQUESTING PHYSICIAN: Dr. Iwona Love CONSULTING PHYSICIAN: Dr. Nelson REASON FOR CONSULTATION: Management of end-stage renal disease on hemodialysis. CHIEF COMPLAINT: Patient presented to the hospital yesterday with shortness of breath. HISTORY OF PRESENT ILLNESS: Yoana Escobedo is a 74-year-old female with past medical history of end-stage renal disease on hemodialysis every Friday/Friday/Friday, history of multiple myeloma currently in relapse, Crohn disease, hypothyroidism, multiple other comorbidities as mentioned below. She presented to the hospital yesterday with worsening dyspnea. She recently had a viral upper respiratory tract infection and she was discharged from the hospital about 6 days ago. Her symptoms got worse, so she was admitted yesterday under the hospitalist service. She was dialyzed as per her regular schedule on Friday, but she reports that even dialysis did not help with her shortness of breath. Nephrology service was called for further help in the management of end-stage renal disease and management of her hemodialysis. I saw and evaluated the patient today morning at the bedside during hemodialysis. I had already arranged her dialysis to be done today morning. Patient denies any active complaints. She is anemic today, and I have arranged 1 unit of packed red blood cells (PRBC) transfusion to be given with dialysis as well. PAST MEDICAL HISTORY: Past medical history of end-stage renal disease on hemodialysis every Friday/ Friday/Friday, multiple myeloma currently getting chemotherapy, Crohn disease, history of colectomy, ileostomy status, hypothyroidism, history of transient ischemic attacks (TIAs) in the past. PAST SURGICAL HISTORY: Status post colectomy in the past, status post tunneled dialysis catheter, status post arteriovenous (AV) fistula placement in the past. ALLERGIES: She is allergic to VANCOMYCIN. FAMILY HISTORY: No significant family history of end-stage renal disease requiring hemodialysis. SOCIAL HISTORY: She denies any smoking, illicit drug abuse or alcohol abuse. REVIEW OF SYSTEMS: Constitutional: She denies any fevers or chills. Eyes: She denies any blurry vision, double vision. ENT: She denies any dysphagia, odynophagia. Cardiovascular: She denies any chest pain or palpitation. Respiratory: She reports shortness of breath. Gastrointestinal (GI): She denies any nausea or vomiting. Genitourinary: She denies any dysuria or hematuria. Musculoskeletal: She denies any muscle aches and pains. Central nervous system (MANAGER FOREIGN): She denies any weakness. Skin: She denies any rashes or ulcers. Hematology/Oncology. She reports history of multiple myeloma. Otherwise, she denies any easy bleeding or bruising. All other review of systems is negative. PHYSICAL EXAMINATION General: The patient is awake, alert, oriented times three, laying in bed, in no apparent distress. Head and Neck Exam: Extraocular muscles intact. Pupils equally round and reactive to light. Mucous membranes are moist. Neck is supple. There is no jugular venous distention (JVD). She has a right internal jugular (IJ) tunneled hemodialysis catheter, which is being used for dialysis. Cardiovascular: S1, S2, regular rate. No edema of the bilateral lower extremities. Respiratory: Chest is clear to auscultation bilaterally at the upper lung zones, mild expiratory rhonchi at the bases on deep inspiration and expiration. Abdomen: Soft. Positive bowel sounds. Musculoskeletal: No clubbing or cyanosis. Pulses are 2+. MANAGER FOREIGN: No focal deficit. Power is 5/5 in all extremities. LAB REVIEW: CBC showed WBC 10.6, hemoglobin 8.2, platelets 220. INR is 3. ABG showed a pH of 7.5 yesterday. BMP showed sodium 136, potassium 4.1, chloride 96, bicarbonate 26, BUN 49, creatinine is 6.9. Lactic acid was 2.4. Calcium 8.6. Magnesium is 2. Albumin 2.7. MICROBIOLOGY: Parainfluenza 1 is positive in respiratory viral panel. CT scan of the chest was done yesterday, which showed minimally scattered fibrotic changes in the lungs, mild acute interstitial infiltrates in the right lower lobe. CURRENT INPATIENT MEDICATIONS: The patient's medications include: - cefepime 1 gram initially and then 0.5 grams IV daily - She was given normal saline bolus yesterday. - She is on Benadryl as needed before dialysis. - hydrocortisone 1 injection 25 mg was given yesterday - levothyroxine 50 mcg by mouth daily - Zyvox 600 mg by mouth twice a day - Zofran as needed - Renvela 800 mg by mouth with meals - warfarin 7.5 mg by mouth four times a week and 5 mg by mouth twice a week ASSESSMENT AND PLAN: 1. End-stage renal disease. Patient is dialysis dependent Friday/Friday/Friday. She is being dialyzed according to her regular schedule. Minimal fluid is removed because of ileostomy status. 2. Dyspnea and hypoxemia. Patient has a parainfluenza type 1 infection. Currently on IV cefepime and Zyvox to cover for suppurative bacterial infection. Continue the nebulizations and supplemental oxygen. 3. Multiple myeloma. Currently in relapse. Patient is on third line chemotherapy. She follows up with Hem/Onc as outpatient. 4. 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 Patient is going to get 1 unit of PRBC transfusion today. 5. Lactic acidosis. It is secondary to combination of respiratory infection and dehydration. She is empirically being covered with antibiotics and was given IV fluids. 6. Chronic kidney disease, mineral bone disease. Continue current dose of Renvela 810 mg by mouth with meals. Thank you for involving me in the care of this patient. I shall be happy to follow the patient along with you tomorrow morning.
[2019-10-22 14:00] VITALS: BP 84/30
[2019-10-22] MEDS ORDERED: HEPARIN 1,000 UNITS/ML 10ML VIAL (FOR RADIOLOGY& DIALYSIS ONLY) XX ONE (15:15)
[2019-10-22] MEDS ORDERED: NS 250 ML IV ONE (16:15)
[2019-10-22] MEDS: CEFEPIME HCL 0.5 GM in D5W 50 ML IV SCH (17:53)
[2019-10-22] MEDS: WARFARIN SOD 7.5 MG TAB PO SCH (17:53)
[2019-10-22] MEDS ORDERED: CEFEPIME HCL 0.5 GM in D5W 50 ML IV SCH (18:00)
[2019-10-22 18:37] VITALS: BP 90/52
[2019-10-22 19:58] VITALS: BP 88/46
--- NOTE | 2019-10-22 20:30 | IPNPDOC ---
Date Seen The patient was seen on 10/22/19. Progress Note HISTORY OF PRESENT ILLNESS: 74 y.o female w/ PMH of Multiple Myeloma, Crohn's disease s/p Colectomy & ileostomy, hypothyroidism, TIA & ESRD on HD MWF presents from home with worsening dyspnea. She was recently admitted for viral URI, discharged on 10/16, reports worsening of dyspnea & hypoxemia since discharge. She went to HD yesterday, was noted to be hypoxemic & home O2 was arranged for the patient, which she received last night. She remained on O2 overnight, reports persistent worsening of dyspnea, especially with exertion so she decided to return to the hospital. She denies any associated symptoms, including fever, joint pain, worsening cough or change in sputum production. She also denies any CP, nausea, vomiting, abdominal pain or diarrhea. She has no additional complaints at this time. She was found to have elevated lactate & soft BP, received 500 ml bolus in the ED. She underwent HD yesterday which was cut short due to her dyspnea & hypoxemia, only tolerated ~2 hours. 10/22/2019 Patient seen during dialysis, continues to have cough and dyspnea, no new complaints. She denies any chest pain, nausea, vomiting, abdominal pain or diarrhea. 10 point review of system is negative except for above. PHYSICAL EXAMINATION: VITAL SIGNS: See below GENERAL APPEARANCE: No distress HEENT: Normocephalic, atraumatic, moist mucus membranes CARDIOVASCULAR: S1, S2 LUNGS: basilar rhonchi ABDOMEN: soft, non-tender, non-distended, ileostomy w/ stool noted EXTREMITIES: ROM intact NEUROLOGICAL: no focal deficits PSYCHIATRIC: calm & cooperative LABORATORY DATA: See below. IMAGING: CT chest with mild acute interstitial infiltrate in RLL MICROBIOLOGY: Please see below. ASSESSMENT: 74 y.o female w/ PMH of Multiple Myeloma (on chemotherapy), ESRD on HD MWF, Crohn's disease s/p colectomy & ileostomy, Hypothyroidism & TIA returns with worsening dyspnea & hypoxemia after recent admission for viral URI. PLAN: 1. Viral respiratory tract infection with possible superimposed bacterial pneumonia - Pro calcitonin elevated to 0.86, patient significantly immunosuppressed due to chemotherapy and ESRD/hemodialysis, continue Zyvox/Cefepime empirically, blood cultures pending, respiratory viral panel is positive for Parainfluenza, supplemental oxygen to maintain O2 sats 88-92% on continue physical therapy. 2. Multiple Myeloma - relapsed in 2018, currently on 3rd line treatment, will follow outpatient for further management. 3. ESRD - HD MWF, received 1 unit of packed red blood cells today, continue Renvela, nephrology following. 4. DVT - On Coumadin, INR therapeutic, check daily. 5. Hypothyroidism - continue Levothyroxine 6. Crohn's disease - s/p colectomy & ileostomy, stable. DVT Prophylaxis -supratherapeutic INR GI Prophylaxis - none VS, I&O, 24H, Fishbone Vital Signs/I&O Vital Signs Date Time Temp Pulse Resp B/P (MAP) Pulse Ox O2 Delivery O2 Flow Rate FiO2 10/22/19 19:59 2.5 10/22/19 19:58 88/46 (60) 10/22/19 14:00 97.9 81 18 100 Nasal Cannula I&O- Last 24 Hours up to 6 AM 10/22/19 06:00 Intake Total 1330 ml Output Total 0 ml Balance 1330 ml Laboratory Data 24H LABS Laboratory Tests 2 10/22/19 06:25: Nucleated Red Blood Cells % (auto) 0.0 10/22/19 06:26: Prothrombin Time 31.3H, Prothromb Time International Ratio 3.03, Anion Gap 14, Glomerular Filtration Rate 6.2L, Calcium Level 8.6L, Magnesium Level 2.0, Total Bilirubin 0.5, Aspartate Amino Transf (AST/SGOT) 13, Alanine Aminotransferase (ALT/SGPT) 14, Alkaline Phosphatase 73, Total Protein 6.5, Albumin 2.7L, Albumin/Globulin Ratio 0.71L CBC/BMP Laboratory Tests 10/22/19 06:25 10/22/19 06:26 Microbiology Microbiology 10/21/19 Respiratory Virus Panel (PCR) ([facility]) - Final, Complete Parainfluenza 1 (Piv1) 10/21/19 Blood Culture - Preliminary, Resulted No growth after 24 hours . All specim... 10/21/19 Blood Culture - Preliminary, Resulted No growth after 24 hours . All specim... DEVIN PEREZ MD Oct 22, 2019 20:30
[2019-10-22 22:00] VITALS: BP 88/46
--- NOTE | 2019-10-22 22:15 | ECGEPIP ---
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
[2019-10-23] VITALS (13 sets, daily range): BP systolic 91–109; BP diastolic 43–58
[2019-10-23] MEDS: SODIUM CHLORIDE 0.9% INJ 10 ML SYR IV PRN (04:03)
[2019-10-23] MEDS: LEVOTHYROXINE 50MCG TABLET (0.05MG) PO SCH (05:25)
[2019-10-23 05:56] LABS: HEMATOCRIT 28.5 % (36.0-47.0); HEMOGLOBIN 9.5 g/dl (12.0-15.5); MEAN CORPUSCULAR HEMOGLOBIN 33.6 pg (27.0-33.0); MEAN CORPUSCULAR HGB CONC 33.3 g/dl (32.0-36.5); MEAN CORPUSCULAR VOLUME 100.7 fl (80.0-96.0); PLATELET COUNT, AUTOMATED 179 10^3/uL (150-450); RED BLOOD COUNT 2.83 10^6/uL (4.00-5.40); WHITE BLOOD COUNT 7.5 10^3/uL (4.0-10.0)
[2019-10-23 06:07] LABS: INR 3.87; PROTHROMBIN TIME 38.1 SECONDS (11.8-14.0)
[2019-10-23 06:29] LABS: CALCIUM LEVEL 8.2 MG/DL (8.8-10.2); CREATININE FOR GFR 4.08 MG/DL (0.55-1.30); GLOMERULAR FILTRATION RATE 11.5 (>39); MAGNESIUM LEVEL 1.8 MG/DL (1.8-2.4); PHOSPHORUS LEVEL 2.9 MG/DL (2.5-4.9); POTASSIUM SERUM 4.4 MEQ/L (3.5-5.1)
[2019-10-23] MEDS: (RENVELA) SEVELAMER **CARBONate** 800 MG TAB PO SCH ×3 (08:00→17:08)
[2019-10-23] MEDS: LINEZOLID 600MG TABLET (ZYVOX) PO SCH ×2 (08:22→19:52)
[2019-10-23] MEDS: CEFEPIME HCL 0.5 GM in D5W 50 ML IV SCH (17:08)
--- NOTE | 2019-10-23 19:19 | IPNPDOC ---
Date Seen The patient was seen on 10/23/19. Progress Note HISTORY OF PRESENT ILLNESS: 74 y.o female w/ PMH of Multiple Myeloma, Crohn's disease s/p Colectomy & ileostomy, hypothyroidism, TIA & ESRD on HD MWF presents from home with worsening dyspnea. She was recently admitted for viral URI, discharged on 10/16, reports worsening of dyspnea & hypoxemia since discharge. She went to HD yesterday, was noted to be hypoxemic & home O2 was arranged for the patient, which she received last night. She remained on O2 overnight, reports persistent worsening of dyspnea, especially with exertion so she decided to return to the hospital. She denies any associated symptoms, including fever, joint pain, worsening cough or change in sputum production. She also denies any CP, nausea, vomiting, abdominal pain or diarrhea. She has no additional complaints at this time. She was found to have elevated lactate & soft BP, received 500 ml bolus in the ED. She underwent HD yesterday which was cut short due to her dyspnea & hypoxemia, only tolerated ~2 hours. 10/22/2019 Patient seen during dialysis, continues to have cough and dyspnea, no new complaints. She denies any chest pain, nausea, vomiting, abdominal pain or diarrhea. 10/23/19 Patient comfortable in chair, mild improvement in CARRIZALES, slight improvement in physical activity today, no new complaints. 10 point review of system is negative except for above. PHYSICAL EXAMINATION: VITAL SIGNS: See below GENERAL APPEARANCE: No distress HEENT: Normocephalic, atraumatic, moist mucus membranes CARDIOVASCULAR: S1, S2 LUNGS: basilar rhonchi ABDOMEN: soft, non-tender, non-distended, ileostomy w/ stool noted EXTREMITIES: ROM intact NEUROLOGICAL: no focal deficits PSYCHIATRIC: calm & cooperative LABORATORY DATA: See below. IMAGING: CT chest with mild acute interstitial infiltrate in RLL MICROBIOLOGY: Please see below. ASSESSMENT: 74 y.o female w/ PMH of Multiple Myeloma (on chemotherapy), ESRD on HD MWF, Crohn's disease s/p colectomy & ileostomy, Hypothyroidism & TIA returns with worsening dyspnea & hypoxemia after recent admission for viral URI. PLAN: 1. Viral respiratory tract infection with possible superimposed bacterial pneumonia - Pro calcitonin elevated to 0.86, patient significantly immunosuppressed due to chemotherapy and ESRD/hemodialysis, continue Zyvox/Cefepime, blood cultures negative to date, respiratory viral panel is positive for Parainfluenza, supplemental oxygen to maintain O2 sats 88-92%, continue physical therapy. 2. Multiple Myeloma - relapsed in 2018, currently on 3rd line treatment, will follow outpatient for further management. 3. ESRD - HD MWF, received 1 unit of packed red blood cells yesterday, continue Renvela, nephrology following. 4. DVT - On Coumadin, INR supratherapeutic, hold coumadin for today, daily INR checks. 5. Hypothyroidism - continue Levothyroxine 6. Crohn's disease - s/p colectomy & ileostomy, stable. DVT Prophylaxis -supratherapeutic INR GI Prophylaxis - none VS, I&O, 24H, Fishbone Vital Signs/I&O Vital Signs Date Time Temp Pulse Resp B/P (MAP) Pulse Ox O2 Delivery O2 Flow Rate FiO2 10/23/19 14:00 98.3 80 20 102/58 (73) 97 Nasal Cannula 2.5 I&O- Last 24 Hours up to 6 AM 10/23/19 06:00 Intake Total 2120 ml Output Total 400 ml Balance 1720 ml Laboratory Data 24H LABS Laboratory Tests 2 10/23/19 05:44: Nucleated Red Blood Cells % (auto) 0.0, Prothrombin Time 38.1H, Prothromb Time International Ratio 3.87, Anion Gap 11, Glomerular Filtration Rate 11.5L, Calcium Level 8.2L, Phosphorus Level 2.9, Magnesium Level 1.8 CBC/BMP Laboratory Tests 10/23/19 05:44 Microbiology Microbiology 10/21/19 Respiratory Virus Panel (PCR) ([facility]) - Final, Complete Parainfluenza 1 (Piv1) 10/21/19 Blood Culture - Preliminary, Resulted No Growth after 48 hours. All Specime... 10/21/19 Blood Culture - Preliminary, Resulted No Growth after 48 hours. All Specime... DEVIN PEREZ MD Oct 23, 2019 19:19
[2019-10-23] MEDS: rOPINIRole 0.25 MG TAB(REQUIP) PO SCH (21:49)
[2019-10-24] MEDS: LEVOTHYROXINE 50MCG TABLET (0.05MG) PO SCH (05:22)
[2019-10-24] MEDS: LINEZOLID 600MG TABLET (ZYVOX) PO SCH ×2 (05:22→21:13)
[2019-10-24] MEDS: SODIUM CHLORIDE 0.9% INJ 10 ML SYR IV SCH ×2 (05:23→17:11)
[2019-10-24 05:48] VITALS: BP 110/58
[2019-10-24 06:03] LABS: HEMATOCRIT 30.4 % (36.0-47.0); MEAN CORPUSCULAR HEMOGLOBIN 33.3 pg (27.0-33.0); MEAN CORPUSCULAR HGB CONC 32.9 g/dl (32.0-36.5); MEAN CORPUSCULAR VOLUME 101.3 fl (80.0-96.0); PLATELET COUNT, AUTOMATED 193 10^3/uL (150-450); WHITE BLOOD COUNT 4.3 10^3/uL (4.0-10.0)
[2019-10-24 06:18] LABS: INR 3.43; PROTHROMBIN TIME 34.6 SECONDS (11.8-14.0)
[2019-10-24 06:32] LABS: CALCIUM LEVEL 8.8 MG/DL (8.8-10.2); CREATININE FOR GFR 5.41 MG/DL (0.55-1.30); GLOMERULAR FILTRATION RATE 8.3 (>39)
[2019-10-24] MEDS: (RENVELA) SEVELAMER **CARBONate** 800 MG TAB PO SCH ×3 (07:09→17:11)
[2019-10-24] MEDS: diphenhydrAMINE 25 MG CAP PO PRN (07:48)
[2019-10-24] MEDS ORDERED: CEFEPIME HCL 0.5 GM in D5W 50 ML IV ONE (09:00)
--- NOTE | 2019-10-24 09:13 | IPN ---
DATE OF SERVICE: 10/23/2019 SUBJECTIVE: The patient was seen and examined at the bedside today morning. She is afebrile and hemodynamically stable. She denies any active complaints at this time. OBJECTIVE: Vital Signs: Temperature is 98.3 degrees Fahrenheit, blood pressure 102/58, pulse is 80, respiratory rate of 20, saturating 97% on nasal cannula 2.5 liters. Intake and output: There is no urine output recorded. Weight in the bed scale is 54.4 kg. PHYSICAL EXAMINATION: General: The patient is awake, alert, oriented time three, laying in bed in no apparent distress. Head and Neck Exam: Extraocular muscles intact. Pupils equally round and reactive to light. Mucous membranes are moist. Neck is supple. There is no jugular venous distention (JVD). Cardiovascular: S1, S2. Regular rate. No edema of the bilateral lower extremities. Respiratory: Chest is clear to auscultation bilaterally. Bilateral equal air entry. No rales or rhonchi. Abdomen: Soft. Positive bowel sounds. Nontender. No organomegaly. Musculoskeletal: No clubbing or cyanosis. Pulses are 2+. MUD GRINDER: No focal deficit. Power is 5/5 in all extremities. Psych: Normal mood and affect. LAB REVIEW: CBC showed a WBC 7.5, hemoglobin 9.5, platelets of 179. BMP showed a sodium of 136, potassium 4.4, chloride 102, bicarb 23, BUN 29, creatinine 4, calcium 8.2phosphorus 2.9, and magnesium 1.8. CURRENT INPATIENT MEDICATIONS: The patient's medications were all reviewed by me. There is no change in the medications today as compared with yesterday. ASSESSMENT: 1. End-stage renal disease on hemodialysis. The patient's regular dialysis days are Friday, Friday, Friday. The patient was dialyzed yesterday. She tolerated the hemodialysis procedure well. Next hemodialysis will be on Friday. 2. Dyspnea and hypoxemia. The patient is feeling better. Clinically, she was comfortable in room air when I saw her in the morning. 3. Multiple myeloma. She gets chemotherapy as outpatient. Anemia was worse. She was given 1 unit of packed red blood cell (PRBC) transfusion. 4. Chronic kidney disease mineral bone disease. Continue current dose of Renvela.
[2019-10-24] MEDS ORDERED: HEPARIN 1,000 UNITS/ML 10ML VIAL (FOR RADIOLOGY& DIALYSIS ONLY) IV ONE (11:15)
[2019-10-24 14:00] VITALS: BP 94/48
[2019-10-24] MEDS: CEFEPIME HCL 0.5 GM in D5W 50 ML IV SCH (17:11)
[2019-10-24] MEDS: SODIUM CHLORIDE 0.9% INJ 10 ML SYR IV PRN (17:11)
[2019-10-24] MEDS: rOPINIRole 0.25 MG TAB(REQUIP) PO SCH (21:13)
[2019-10-24 22:00] VITALS: BP 79/47
--- NOTE | 2019-10-24 23:44 | IPNPDOC ---
Date Seen The patient was seen on 10/24/19. Progress Note HISTORY OF PRESENT ILLNESS: 74 y.o female w/ PMH of Multiple Myeloma, Crohn's disease s/p Colectomy & ileostomy, hypothyroidism, TIA & ESRD on HD MWF presents from home with worsening dyspnea. She was recently admitted for viral URI, discharged on 10/16, reports worsening of dyspnea & hypoxemia since discharge. She went to HD yesterday, was noted to be hypoxemic & home O2 was arranged for the patient, which she received last night. She remained on O2 overnight, reports persistent worsening of dyspnea, especially with exertion so she decided to return to the hospital. She denies any associated symptoms, including fever, joint pain, worsening cough or change in sputum production. She also denies any CP, nausea, vomiting, abdominal pain or diarrhea. She has no additional complaints at this time. She was found to have elevated lactate & soft BP, received 500 ml bolus in the ED. She underwent HD yesterday which was cut short due to her dyspnea & hypoxemia, only tolerated ~2 hours. 10/22/2019 Patient seen during dialysis, continues to have cough and dyspnea, no new complaints. She denies any chest pain, nausea, vomiting, abdominal pain or diarrhea. 10/23/19 Patient comfortable in chair, mild improvement in CARRIZALES, slight improvement in physical activity today, no new complaints. 10/24/19 Patient seen during dialysis, comfortable, slight improvement in cough and dyspnea at rest, continues to have significant dyspnea on exertion, slight improvement in physical activity. 10 point review of system is negative except for above. PHYSICAL EXAMINATION: VITAL SIGNS: See below GENERAL APPEARANCE: No distress HEENT: Normocephalic, atraumatic, moist mucus membranes CARDIOVASCULAR: S1, S2 LUNGS: basilar rhonchi ABDOMEN: soft, non-tender, non-distended, ileostomy w/ stool noted EXTREMITIES: ROM intact NEUROLOGICAL: no focal deficits PSYCHIATRIC: calm & cooperative LABORATORY DATA: See below. IMAGING: CT chest with mild acute interstitial infiltrate in RLL MICROBIOLOGY: Please see below. ASSESSMENT: 74 y.o female w/ PMH of Multiple Myeloma (on chemotherapy), ESRD on HD MWF, Crohn's disease s/p colectomy & ileostomy, Hypothyroidism & TIA returns with worsening dyspnea & hypoxemia after recent admission for viral URI. PLAN: 1. Viral respiratory tract infection with possible superimposed bacterial pneumonia - Pro calcitonin elevated to 0.86, patient significantly immunosuppressed due to chemotherapy and ESRD/hemodialysis, continue Zyvox/Cefepime, blood cultures negative, respiratory viral panel is positive for Parainfluenza, supplemental oxygen to maintain O2 sats 88-92%, continue physical therapy, will downgrade antibiotics and discharged home if cleared by physical therapy tomorrow. 2. Multiple Myeloma - relapsed in 2018, currently on 3rd line treatment, will follow outpatient for further management. 3. ESRD - HD MWF, received 1 unit of packed red blood cells yesterday, continue Renvela, nephrology following. 4. DVT - On Coumadin, INR supratherapeutic, hold coumadin for today, daily INR checks. 5. Hypothyroidism - continue Levothyroxine 6. Crohn's disease - s/p colectomy & ileostomy, stable. DVT Prophylaxis -supratherapeutic INR GI Prophylaxis - none VS, I&O, 24H, Fishbone Vital Signs/I&O Vital Signs Date Time Temp Pulse Resp B/P (MAP) Pulse Ox O2 Delivery O2 Flow Rate FiO2 10/24/19 22:00 98.1 77 18 79/47 (58) 97 Room Air 10/24/19 07:30 2.5 I&O- Last 24 Hours up to 6 AM 10/24/19 06:00 Intake Total 1350 ml Output Total 1375 ml Balance -25 ml Laboratory Data 24H LABS Laboratory Tests 2 10/24/19 05:54: Nucleated Red Blood Cells % (auto) 0.0, Prothrombin Time 34.6H, Prothromb Time International Ratio 3.43, Anion Gap 11, Glomerular Filtration Rate 8.3L, Calcium Level 8.8 CBC/BMP Laboratory Tests 10/24/19 05:54 Microbiology Microbiology 10/21/19 Respiratory Virus Panel (PCR) ([facility]) - Final, Complete Parainfluenza 1 (Piv1) 10/21/19 Blood Culture - Preliminary, Resulted No Growth after 72 hours. All specime... 10/21/19 Blood Culture - Preliminary, Resulted No Growth after 72 hours. All specime... DEVIN PEREZ MD Oct 24, 2019 23:44
[2019-10-25] MEDS: LEVOTHYROXINE 50MCG TABLET (0.05MG) PO SCH (05:45)
[2019-10-25] MEDS: SODIUM CHLORIDE 0.9% INJ 10 ML SYR IV SCH (05:46)
[2019-10-25 05:54] LABS: HEMATOCRIT 28.9 % (36.0-47.0); HEMOGLOBIN 9.7 g/dl (12.0-15.5); MEAN CORPUSCULAR HEMOGLOBIN 33.6 pg (27.0-33.0); MEAN CORPUSCULAR HGB CONC 33.6 g/dl (32.0-36.5); PLATELET COUNT, AUTOMATED 199 10^3/uL (150-450); RED BLOOD COUNT 2.89 10^6/uL (4.00-5.40); WHITE BLOOD COUNT 5.6 10^3/uL (4.0-10.0)
[2019-10-25 06:00] VITALS: BP 120/68
[2019-10-25 06:08] LABS: INR 3.38; PROTHROMBIN TIME 34.1 SECONDS (11.8-14.0)
[2019-10-25 06:20] LABS: CALCIUM LEVEL 8.2 MG/DL (8.8-10.2); CREATININE FOR GFR 4.04 MG/DL (0.55-1.30); GLOMERULAR FILTRATION RATE 11.6 (>39); POTASSIUM SERUM 3.7 MEQ/L (3.5-5.1)
[2019-10-25] MEDS: (RENVELA) SEVELAMER **CARBONate** 800 MG TAB PO SCH ×2 (07:12→11:56)
[2019-10-25] MEDS: LINEZOLID 600MG TABLET (ZYVOX) PO SCH (08:03)
[2019-10-25] MEDS ORDERED: LEVA750T7 PO (10:48)
[2019-10-25] MEDS ORDERED: CEFEPIME HCL 0.5 GM in D5W 50 ML IV ONE (12:00)
[2019-10-25] MEDS: SODIUM CHLORIDE 0.9% INJ 10 ML SYR IV PRN (12:34)
[2019-10-25] MEDS ORDERED: WARFARIN SOD 5 MG TAB PO SCH (17:00)
--- NOTE | 2019-10-25 22:29 | DS.PDOC ---
Discharge Summary General Date of Admission Oct 21, 2019 at 13:35 Date of Discharge 10/25/19 Attending Physician: DEVIN PEREZ MD Discharge Summary PROCEDURES PERFORMED DURING STAY: None ADMITTING DIAGNOSES: 1. Viral URI, superimposed bacterial Pneumonia DISCHARGE DIAGNOSES: 1. Viral URI, superimposed bacterial Pneumonia COMPLICATIONS/CHIEF COMPLAINT: Bronchitis W/Bronchospasm,Esrd,Hpoxia,Multiple Mye. HISTORY OF PRESENT ILLNESS: 74 y.o female w/ PMH of MM, ESRD on HD was recently admitted for viral URI, continued having persistent symptoms after discharge and was readmitted for possible superimposed bacterial pneumonia. She was treated w/ Zyvox/Cefepime for presumed superimposed bacterial pneumonia on the underlying viral infection (Respiratory viral panel positive for Parainfluenza). She has improved clinically, blood cultures negative and blood work has also remained appropriate. She was evaluated and cleared by PT for discharge home. She is clinically and hemodynamically stable for discharge home with outpatient follow up. HOSPITAL COURSE: As above DISCHARGE MEDICATIONS: Please see below. ALLERGIES: Please see below. PHYSICAL EXAMINATION: VITAL SIGNS: See below GENERAL APPEARANCE: No distress HEENT: Normocephalic, atraumatic, moist mucus membranes CARDIOVASCULAR: S1, S2 LUNGS: basilar rhonchi ABDOMEN: soft, non-tender, non-distended, ileostomy w/ stool noted EXTREMITIES: ROM intact NEUROLOGICAL: no focal deficits PSYCHIATRIC: calm & cooperative LABORATORY DATA: Please see below. PROGNOSIS: Fair ACTIVITY: As tolerated DIET: Dash DISCHARGE PLAN: f/u with PCP, [facility] [employer] Designer & Oncologist in 1-2 weeks DISPOSITION: 01 Home, Self-Care. DISCHARGE INSTRUCTIONS: 1. As above DISCHARGE CONDITION: Stable TIME SPENT ON DISCHARGE: Greater than 25 minutes. Vital Signs/I&Os Vital Signs Date Time Temp Pulse Resp B/P (MAP) Pulse Ox O2 Delivery O2 Flow Rate FiO2 10/25/19 08:33 18 Room Air 10/25/19 06:00 98.3 68 120/68 (85) 18 10/24/19 07:30 2.5 I&O- Last 24 Hours up to 6 AM 10/25/19 06:00 Intake Total 2470 ml Output Total 500 ml Balance 1970 ml Laboratory Data Labs 24H Laboratory Tests 2 10/25/19 05:26: Nucleated Red Blood Cells % (auto) 0.0, Prothrombin Time 34.1H, Prothromb Time International Ratio 3.38, Anion Gap 12, Glomerular Filtration Rate 11.6L, Calcium Level 8.2L CBC/BMP Laboratory Tests 10/25/19 05:26 Microbiology Microbiology 10/21/19 Respiratory Virus Panel (PCR) (AIDEE) - Final, Complete Parainfluenza 1 (Piv1) 10/21/19 Blood Culture - Preliminary, Resulted No Growth after 72 hours. All specime... 10/21/19 Blood Culture - Preliminary, Resulted No Growth after 72 hours. All specime... Discharge Medications Scheduled Cholecalciferol (Vitamin D3) (Vitamin D3) 2,000 Unit Tablet, 2,000 UNIT PO DAILY, (Reported) Cyclosporine (Restasis) 0.05% Droperette, 1 DROP OU BID, (Reported) Dexamethasone (Dexamethasone) 4 Mg Tab, 12 MG PO ASDIRECTED TAKES DAYS 1,8,15, - LAST DOSE WAS DAY 1 OF CYCLE Diphenhydramine HCl (Benadryl) 25 Mg Capsule, 25 MG PO 3XW, (Reported) TAKE PRIOR TO DIALYSIS ON ,, Levofloxacin (Levaquin) 750 Mg Tablet, 1 TAB PO ONCE Take on 10/26 Levothyroxine Sodium (Levoxyl) 50 Mcg Tablet, 50 MCG PO DAILY, (Reported) Lipase/Protease/Amylase (Pratibha Pandey 36,000 Units Capsule) 1 Each Capsule.dr, 2 CAP PO WM, (Reported) Lipase/Protease/Amylase (Mateoon Dr 36,000 Units Capsule) 1 Each Capsule.dr, 1 CAP PO ASDIRECTED, (Reported) WITH SNACKS [place]-3 Fatty Acids/Fish Oil (Fish Oil 1,000 mg Capsule) 1 Each Capsule, 1,000 MG PO QHS, (Reported) Sevelamer Carbonate (Renvela) 800 Mg Tablet, 800 MG PO WM, (Reported) Warfarin Sodium (Coumadin) 5 Mg Tablet, 5 MG PO 2XW, (Reported) FRI, FRI Warfarin Sodium (Coumadin) 7.5 Mg Tablet, 7.5 MG PO 5XW, (Reported) SUN, TUES, THURS, SAT, SUN Scheduled PRN Albuterol Sulfate (Proventil Hfa) 6.7 Gm Hfa.aer.ad, 2 PUFF INH QID PRN for SHORTNESS OF BREATH, (Reported) Hydrocodone/Acetaminophen (Hydrocodone-Acetamin 5-325 mg) 1 Each Tablet, 1 TAB PO Q6H PRN for PAIN, (Reported) Ondansetron HCl (Ondansetron HCl) 8 Mg Tablet, 8 MG PO Q6H PRN for NAUSEA OR VOMITING TAKE ONE TABLET EVERY 6 HOURS NEEDED FOR NAUSEA. Allergies Coded Allergies: vancomycin (Verified Allergy, Intermediate, RASH/ITCHING, 03/26/19) DEVIN PEREZ MD Oct 25, 2019 22:29
--- NOTE | 2019-10-26 10:04 | IPN ---
DATE: 10/24/2019 SUBJECTIVE: The patient was seen and examined at the bedside today morning during hemodialysis procedure. She is tolerating the hemodialysis procedure well. She denies any active complaints. She is afebrile and hemodynamically stable. OBJECTIVE: VITAL SIGNS: Temperature is 98 degrees Fahrenheit, blood pressure 110/58, pulse is 64, respiratory rate of 16, saturating 100% on room air. INTAKE AND OUTPUT: Urine output recorded is 800 mL, weight in the bed scale was 54.4 kg yesterday. PHYSICAL EXAMINATION: GENERAL: The patient is awake, alert, oriented times three, laying in bed, in no apparent distress. HEAD AND NECK: Extraocular muscles intact. Pupils equally round and reactive to light. Mucous membranes are moist. Neck is supple. There is no jugular venous distention (JVD). CARDIOVASCULAR: S1, S2, regular rate. No edema of the bilateral lower extremities. RESPIRATORY: Chest is clear to auscultation bilaterally. Bilateral equal air entry. No rales or rhonchi. ABDOMEN: Soft, positive bowel sounds. Right lower quadrant ileostomy was noted. MUSCULOSKELETAL: No clubbing or cyanosis. Pulses are 2+. CENTRAL NERVOUS SYSTEM (PROTOTYPE MACHINIST): No focal deficit. Power is 5/5 in all extremities. LABORATORY REVIEW: CBC showed a WBC of 4.3, hemoglobin 10, platelets are 193. BMP showed sodium 135, potassium 5, chloride 105, bicarbonate 19, BUN 44, creatinine is 5.4. CURRENT INPATIENT MEDICATIONS: The patient's medications were all reviewed by me. There is no change in the medications today as compared with yesterday. She continues to be on IV antibiotics. ASSESSMENT AND PLAN: 1. End-stage renal disease. The patient is hemodialysis dependent. Regular dialysis days are Friday, Friday, Friday. Because of the holiday schedule, Friday, Friday, Friday patients are being done on Friday. She is tolerating her hemodialysis today. 2. Multiple myeloma, currently in relapse. The patient is currently on third-line chemotherapy. She follows up with hematology/oncology as outpatient. 3. Dyspnea and hypoxemia. The patient is currently on antibiotics, steroids, and breathing is significantly better. Volume status is optimized.
--- NOTE | 2019-10-26 12:11 | IPN ---
DATE: 10/25/2019 SUBJECTIVE: Yoana is seen, examined this morning at the bedside. She reports no new complaints or issues reports that her dyspnea on exertion has been improved ever since she received to the blood transfusion. She is on room air and discharge pending. Her next dialysis will be tomorrow as an outpatient. Vital signs: Temperature 98.3, pulse 68, respiratory rate 18, blood pressure 120/68, saturating 97% on room air. Intake yesterday was 2320 dialysis yesterday removed 500 urine output 800, weight in the bed scale today is 53.2 kg. General: The patient is seen awake, alert, oriented, comfortable, interactive. No acute distress. Extraocular muscles are intact. Oral mucosa is moist. Thin female in no distress. Cardiac S1, S2 regular rate. No edema in the lower extremities. Neck is supple. There is no jugular venous distension. Chest clear to auscultation bilaterally. No rale or rhonchi. Abdomen is soft and nontender. There is an ostomy. Musculoskeletal: No edema, clubbing or cyanosis. Neurologic: No focal deficits. Power is 5/5 in all extremities. Psychiatric normal mood and effect. He more than Skin: Normal turgor and turgor and temperature. LABS: Hemoglobin 9.7, platelet 199, INR 3.3, sodium 141, potassium 3.7. INPATIENT MEDICATIONS: Inpatient medications reviewed by myself and no change from prior. PROBLEMS: 1. End-stage renal disease on hemodialysis on a Friday, Friday, Friday schedule. This week dialysis at [facility] are adjusted to account for the holiday. The patient will be dialyzed on October 26 as an outpatient. Her volume status and electrolytes are acceptable. 2. Multiple myeloma of relapse and recurrent. Follows up with hematology for third line treatment and her myeloma has been complicated by recurrent anemia as well. 3. 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 She received a 1 unit packed red blood cell on this admission. Hemoglobin has come up a 9.7 and she continues on erythropoietin after the hemodialysis unit. 4. History of DVT INR is supratherapeutic today Coumadin is held INR is monitored in the outpatient setting. 5. Chronic kidney disease mineral bone osteodystrophy. Her phosphorus levels have been acceptable on current dose of Renvela.
== END 2019-10-25 12:57 | disposition home or self-care (01) | DRG 193 ==
LOC: M ED 10:12 → M ED INP 13:35 → M MS5PR 15:05
PROVIDERS: ADMIT Internal Medicine; ATTEND Internal Medicine
DX: J12.2 Parainfluenza virus pneumonia (principal); N18.6 End stage renal disease; C90.02 Multiple myeloma in relapse; E87.2 Acidosis; Z79.899 Other long term (current) drug therapy; Z88.1 Allergy status to other antibiotic agents; E03.9 Hypothyroidism, unspecified; Z86.73 Personal history of transient ischemic attack (TIA), and cerebral infarction without residual deficits; D63.1 Anemia in chronic kidney disease; D64.81 Anemia due to antineoplastic chemotherapy; Z86.718 Personal history of other venous thrombosis and embolism; N18.9 Chronic kidney disease, unspecified

== ENCOUNTER → 2019-10-26 | Outpatient (CLI) | payer MEDICARE, OTHER ==
[~2019-10-26] MED LIST changes: +LEVA750T7 PO
[2019-10-26 14:20] LABS: INR 2.37; PROTHROMBIN TIME 25.7 SECONDS (11.8-14.0)
== END ==
LOC: M PLALAB 09:14
PROVIDERS: ATTEND Family Medicine
DX: Z51.81 Encounter for therapeutic drug level monitoring (principal); Z79.01 Long term (current) use of anticoagulants

== ENCOUNTER → 2019-11-04 | Outpatient (CLI) | payer MEDICARE, OTHER ==
[2019-11-04 14:23] LABS: INR 2.66; PROTHROMBIN TIME 28.2 SECONDS (11.8-14.0)
== END ==
LOC: M PLALAB 10:30
PROVIDERS: ATTEND Family Medicine
DX: Z79.01 Long term (current) use of anticoagulants (principal)

== ENCOUNTER → 2019-11-10 | Outpatient (CLI) | payer MEDICARE, OTHER ==
--- NOTE | 2019-11-12 06:49 | RADONC ---
RADIATION ONCOLOGY FOLLOWUP NOTE DATE: 11/10/2019 CHART NUMBER: [id number] DIAGNOSIS: Multiple myeloma. ECOG PERFORMANCE STATUS: 0 FOLLOWUP NOTE: Ms. Turner is a 74-year-old white female with the diagnosis of multiple myeloma who is presenting to us today for routine followup visit 1 month post completion of palliative radiation therapy to her bilateral humeral regions. The patient presents today reporting that her right humerus is free of pain, but she continues to have pain in her left shoulder area and humeral region. She also is reporting some bruising over her left arm. In addition, she is complaining of pain over her coccyx and sacral region, which she says developed after a coughing episode. REVIEW OF SYSTEMS: The patient's review of systems is positive for sacral pain as well as continued residual left humeral pain, but is otherwise noncontributory. She denies nausea, vomiting, fevers, chills, night sweats, diplopia, headaches, anxiety or depression, anorexia, weight loss, visual disturbances, chest pain, urinary or bowel difficulties, bone pain, or neurological problems. PHYSICAL EXAMINATION: The patient is an elderly frail white female in no acute distress. HEENT: Exam is normocephalic, atraumatic. Extraocular movements are intact. There is no palpable cervical, supraclavicular, infraclavicular or axillary lymphadenopathy present. Lungs: Clear to auscultation and percussion. Heart has regular rate and rhythm. Examination of the patient's right skin and humerus reveals no evidence of radiation skin change. Her left arm shows multiple bruises present not consistent with radiation change at all, but with some type of light trauma. The remainder of her physical examination is within normal limits. ASSESSMENT: I had a lengthy discussion with this patient. She is scheduled see her medical oncologist next week to discuss her systemic therapy. I made clear to her that we can of course treat any bone for pain control and with multiple myeloma usually we are quite successful. In addition, the doses are quite low and I would expect minimal difficulties with tolerance. I prefer not to treat large areas of bone marrow however since this may compromise her ability to tolerate her systemic treatments which is her primary treatment modality. In light of this, I will defer to the medical oncologist and the patient. She will be seeing Dr. Saab next week and discuss this with her. If Dr. Saab wishes us to consider radiation to the sacrum, we would be more than glad to do so and can initiate treatment without delay. The patient has been instructed to contact our office following her visit with Dr. Saab and therefore has not been given a followup here except on a p.r.n. basis. The patient has my cell phone number and office number if we could be of any assistance to her in the meantime. cc: MD Jessy Prather MD
== END ==
LOC: M ONCR 12:54
PROVIDERS: ATTEND Radiology Radiation Oncology
DX: C90.02 Multiple myeloma in relapse (principal)

== ENCOUNTER → 2019-11-12 | Outpatient (CLI) | payer MEDICARE, OTHER ==
[2019-11-12 10:53] LABS: INR 4.28; PROTHROMBIN TIME 41.2 SECONDS (11.8-14.0)
== END ==
LOC: M PLALAB 09:30
PROVIDERS: ATTEND Family Medicine
DX: Z79.01 Long term (current) use of anticoagulants (principal)

== ENCOUNTER → 2019-11-17 | Outpatient (CLI) | payer MEDICARE, OTHER ==
[~2019-11-17] MED LIST changes: +ONDA8TAB10 PO; -ONDA8TAB7 PO
[2019-11-17 13:49] LABS: INR 4.53; PROTHROMBIN TIME 43.2 SECONDS (11.8-14.0)
== END ==
LOC: M PLALAB 09:28
PROVIDERS: ATTEND Family Medicine
DX: Z79.01 Long term (current) use of anticoagulants (principal)

== ENCOUNTER → 2019-11-22 | Outpatient (CLI) | payer MEDICARE, OTHER ==
[~2019-11-22] MED LIST changes: +ANTI2TAB16 PO; +DOXY100T PO; +HYDR-4513 PO; +LEVA1TAB2 PO; +VITA1CHW7 PO; +VITA50005 PO
--- NOTE | 2019-11-22 11:13 | REP ---
Bilateral upper extremity arterial and venous Doppler ultrasound: History: End-stage renal disease. Vein mapping study. Findings: Noninvolved functioning left axillary fistula graft seen. There is no evidence of venous thrombosis. Biphasic arterial wave forms are noted throughout both upper extremities. No evidence of significant stenosis or occlusion. Right upper extremity vein diameter chart: Upper humerus basilic 3.5 mm, cephalic 1.4 mm Lower humerus basilic 2.3 mm, cephalic 1.5 mm Upper forearm basilic 0.9 mm, cephalic 1.1 mm Lower forearm basilic not seen, cephalic 0.8 mm Median cubital 1.1 mm Left upper extremity vein diameter chart: Upper humerus basilic 4.0 mm, cephalic 1.5 mm Lower humerus basilic 2.4 mm, cephalic 0.7 mm The upper forearm basilic 1.0 mm, cephalic 1.0 mm Lower forearm basilic 0.3 mm, cephalic 0.4 mm Median cubital not seen. Right upper extremity arterial Doppler velocity and size diameter chart: Axillary artery 82 cm/S, 5.4 mm Brachial artery 75 cm/S, 4.1 mm Radial artery 53 cm/S, 1.1 mm Ulnar artery 27 cm/S, 1.5 mm Left upper extremity arterial Doppler velocity and size diameter chart: Axillary artery 17 2 cm/S, 5.4 mm Brachial artery 57 cm/S, 5.2 mm Radial artery 66 cm/S, 1.2 mm Ulnar artery 50 cm/S, 1.3 mm Electronically Signed by Dejon Daniel MD 11/22/2019 11:04 A
== END ==
LOC: M RAD 08:44
PROVIDERS: ATTEND Physician Assistant
DX: Z01.818 Encounter for other preprocedural examination (principal); N18.6 End stage renal disease; Z79.01 Long term (current) use of anticoagulants

== ENCOUNTER → 2019-11-22 | Outpatient (CLI) | payer MEDICARE, OTHER ==
[~2019-11-22] MED LIST changes: -ANTI2TAB16 PO; -DOXY100T PO; -HYDR-4513 PO; -LEVA1TAB2 PO; -VITA1CHW7 PO; -VITA50005 PO
[2019-11-22 14:30] LABS: INR 1.84
== END ==
LOC: M PLALAB 11:48
PROVIDERS: ATTEND Family Medicine
DX: Z79.01 Long term (current) use of anticoagulants (principal)

== ENCOUNTER 2019-11-25 07:50 | Inpatient (IN) | payer MEDICARE, OTHER ==
[~2019-11-25] VITALS: Ht 162.6 cm; Wt 47.6 kg
--- NOTE | 2019-11-25 08:47 | REP ---
Portable chest, 08:27 a.m., single AP view with the patient sitting: Comparison is 10/21/2019. Lung george are clear. Cardiac size is normal. The jennifer, mediastinum, skeletal structures are. There are no acute cardiopulmonary findings. There is a right IJ dual lumen central venous catheter with the tips in the superior vena cava, unchanged. There are surgical clips in the right axilla, unchanged. Impression: No acute cardiopulmonary findings. Electronically Signed by Justin Solorio MD 11/25/2019 08:39 A
[2019-11-25] MEDS: SODIUM CHLORIDE 0.9% INJ 10 ML SYR IV PRN (08:48)
[2019-11-25 08:54] LABS: ABG BASE EXCESS -0.1 (-2.0-2.0); ABG HCO3 21.1 MEQ/L (22.0-26.0); ABG O2 SATURATION 98.9 % (95.0-99.0); ABG PARTIAL PRESSURE CO2 24.7 mmHg (35.0-45.0); ABG PARTIAL PRESSURE O2 121.6 mmHg (75.0-100.0); ABG STANDARD HCO3 24.4 MEQ/L (22.0-26.0); ABG TOTAL CO2 21.8 MEQ/L (23.0-31.0); ABG pH (ARTERIAL) 7.549 UNITS (7.350-7.450)
[2019-11-25 09:03] LABS: BASO % 0.1 % (0.0-1.0); EOS % 0.3 % (0.0-3.0); HEMATOCRIT 31.9 % (36.0-47.0); HEMOGLOBIN 10.5 g/dl (12.0-15.5); LYMPH # 0.7 10^3/uL (1.5-5.0); LYMPH % 9.2 % (24.0-44.0); MEAN CORPUSCULAR HEMOGLOBIN 33.3 pg (27.0-33.0); MEAN CORPUSCULAR HGB CONC 32.9 g/dl (32.0-36.5); MEAN CORPUSCULAR VOLUME 101.3 fl (80.0-96.0); MONO # 0.4 10^3/uL (0.0-0.8); MONO % 5.9 % (0.0-5.0); NEUTROPHILS # 6.1 10^3/uL (1.5-8.5); NEUTROPHILS % 84.1 % (36.0-66.0); PLATELET COUNT, AUTOMATED 281 10^3/uL (150-450); RED BLOOD COUNT 3.15 10^6/uL (4.00-5.40); WHITE BLOOD COUNT 7.3 10^3/uL (4.0-10.0)
[2019-11-25 09:34] LABS: BLOOD UREA NITROGEN 37 MG/DL (7-18); CALCIUM LEVEL 8.7 MG/DL (8.8-10.2); CARBON DIOXIDE LEVEL 26 MEQ/L (21-32); CHLORIDE LEVEL 102 MEQ/L (98-107); CK-MB VALUE MASS < 1.0 NG/ML (<3.6); CPK CREATINE PHOSPHOKINASE 29 U/L (26-192); CREATININE FOR GFR 5.43 MG/DL (0.55-1.30); GLOMERULAR FILTRATION RATE 8.2 (>39); GLUCOSE, FASTING 115 MG/DL (70-100); MB/CK RELATIVE INDEX 3.45 (< OR =4); POTASSIUM SERUM 4.6 MEQ/L (3.5-5.1); SODIUM LEVEL 138 MEQ/L (136-145); TROPONIN I < 0.02 NG/ML (< 0.10)
[2019-11-25 11:08] VITALS: O2SAT 81
[2019-11-25] MEDS ORDERED: ISOVUE-370 76% 100ML VIAL (Q9967) As Ordered ONE (12:32)
--- NOTE | 2019-11-25 13:27 | REP ---
CT of the chest with IV contrast, pulmonary artery angiography protocol: Comparison is 10/21/2019. The patient is hypoxic and has additional clinical history of multiple myeloma. There are no emboli in the pulmonary trunk or central pulmonary arteries. There are no emboli in the pulmonary lobe or segment branches. There are no infiltrates. There are no pleural effusions. There are no lung masses or nodules. There is no mediastinal, hilar or axillary lymph node enlargement. The thoracic aorta is unremarkable except for calcified atheroma. The cardiac size is normal. There is no pericardial effusion. There is demineralization. There are grade 1 vertebral body compression deformities with vertebraplasties at the T12, L1 and L2 vertebral bodies. This is unchanged. There is a right IJ central venous catheter with the tip in the superior vena cava. The contrast injection is into the right upper extremity. There is reflux of the contrast into the right axillary and brachial veins, right internal mammary vein and right intercostal veins. There is collateral flow from the right intercostal veins to the azygos vein. These findings suggest stenosis and possible occlusion of the superior vena . Impression: There are no pulmonary emboli. There are no infiltrates or effusions. There are no masses, nodules or adenopathy. Reflux and collateralization of the intravenous contrast suggestive of stenosis and possibly occlusion of the superior vena cava. There is a right IJ central venous catheter. Demineralization. Compression deformities of the D 12, L1 and L to vertebral bodies with vertebroplasties. Electronically Signed by Justin Solorio MD 11/25/2019 01:19 P
[2019-11-25] MEDS ORDERED: NS 500 ML IV ONE ×2 (15:15→18:45)
[2019-11-25] MEDS ORDERED: VITA50005 PO (15:49)
[2019-11-25] MEDS ORDERED: ONDANSETRON 4 MG TAB (S0181) PO PRN (17:45)
[2019-11-25] MEDS ORDERED: POLYVINYL ALCOHOL OPHTH SOLN 15 ML(LIQUITEARS) OU PRN (18:00)
[2019-11-25] MEDS ORDERED: SODIUM CHLORIDE NASAL 0.65% SPRAY BTL (OCEAN) PRN (18:00)
--- NOTE | 2019-11-25 18:26 | CR.PDOC ---
General Date of Consultation: Nov 25, 2019 Consultation CHIEF COMPLAINT: Fatigue and shortness of breath HISTORY OF PRESENT ILLNESS: This is a very pleasant 74-year-old patient known to the vascular service secondary to end-stage renal disease requiring access for hemodialysis. She was seen in October with a failed left upper extremity bra chial axillary graft placed by Dr. Thomas, and a functioning right IJ PermCath which she had been using for dialysis for a year. At that time, we recommended a vein mapping to see if she had any options for autologous fistula or graft placement possibly in the contralateral arm. Her vein mapping suggests no option for autologous fistula creation, but she does have an option for a right brachial axillary Artegraft placement. 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 She also has significant collaterals noted on CT of the chest, which could also provide enough extra outflow to make the graft successful. The alternative is to continue dialyzing with a PermCath, but with the central veins stenosis I am not sure how successful this will be for long-term access. Once her new accesses placed, we could also consider a fistulogram through the graft with central venogram and potential intervention to see if angioplasty might improve flow through the central veins if needed. There is no urgency at this time to place a new access, and we would like to follow up with Dr Granger and see what her prognosis is, and let her recover from this episode of hypoxia. We will see her outpatient and discuss. ALLERGIES: Please see below. HOME MEDICATIONS: Please see below. PAST MEDICAL HISTORY: Multiple myeloma, h/o melanoma, thyroid disease, kidney disease, arthritis PAST SURGICAL HISTORY: Appendectomy, Ileostomy, STSG LUE, Removal of melanoma, Stem Cell Transplant FAMILY HISTORY: No bleeding or clotting disorders. Diabetes, Heart Disease, Hypertension. SH: . Former smoker. Denies tob/ETOH/illicit drug use. REVIEW OF SYSTEMS: CONSTITUTIONAL: +fatigue, malaise HEENT: denies vision changes. CARDIOVASCULAR: denies CP. RESPIRATORY: +SOB. GENITOURINARY: denies dysuria. MUSCULOSKELETAL: denies claudication. GASTROINTESTINAL: denies n/v/d/c SKIN: +h/o skin cancer NEUROLOGICAL: +TSANG, denies sz or CVA PSYCHIATRIC: denies anxiety/depression ENDOCRINE: denies DM, +thyroid disease HEMATOLOGIC/IMMUNOLOGIC: +multiple myeloma PHYSICAL EXAMINATION: VITAL SIGNS: Please see below. Const: Medically stable. NAD Head/Face: NC. ENMT:TMI. vision stable. Neck: Supple, no carotid bruits present Resp: No wheezing. Clear to auscultation bilaterally. diminished breath sounds bibasilar. CV: RRR Abdomen: Soft, NT, ND, +BS Lymph: No palpable or visible regional lymphadenopathy. Musculo: Gait steady. Healed surgical scars left upper extremity. Ecchymosis of left upper extremity resolved. PermCath right chest. Skin: No rashes or lesions Neuro: Alert and oriented x3, moves all extremities equally, no focal neurologic deficits noted. Psych: Pleasant and cooperative LABORATORY DATA: Please see below. ASSESSMENT/PLAN: Very pleasant 74-year-old female with end-stage renal disease on hemodialysis and failure of multiple left upper extremity accesses. 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 1. Plan for right brachial axillary Artegraft placement. We'll consider attempting intervention to improve flow through the central veins after graft placement, using it as a conduit for central venogram, if needed to improve outflow. This will be done electively outpatient after discussing with Dr Granger re: prognosis and best timing for procedure. We appreciate the opportunity to participate in the care of this patient. Vital Signs/I&O Vital Signs Date Time Temp Pulse Resp B/P (MAP) Pulse Ox O2 Delivery O2 Flow Rate FiO2 11/25/19 17:15 88 89/57 (68) 99 Nasal Cannula 2.0 11/25/19 14:15 20 11/25/19 08:01 97.4 Laboratory Data Labs 24H Laboratory Tests 2 11/25/19 08:19: Immature Granulocyte % (Auto) 0.4, Neutrophils (%) (Auto) 84.1H, Lymphocytes (%) (Auto) 9.2L, Monocytes (%) (Auto) 5.9H, Eosinophils (%) (Auto) 0.3, Basophils (%) (Auto) 0.1, Neutrophils # (Auto) 6.1, Lymphocytes # (Auto) 0.7L, Monocytes # (Auto) 0.4, Eosinophils # (Auto) 0.0, Basophils # (Auto) 0.0, Nucleated Red Blood Cells % (auto) 0.0, Anion Gap 10, Glomerular Filtration Rate 8.2L, Lactic Acid Level 2.3*H, Calcium Level 8.7L, Total Creatine Kinase 29, Creatine Kinase MB < 1.0, Creatine Kinase MB Relative Index 3.45, Troponin I < 0.02, Thyroid Stimulating Hormone (TSH) 2.740 11/25/19 08:35: Blood Gas Bicarbonate Standard 24.4, Arterial Blood pH 7.549H, Arterial Blood Partial Pressure CO2 24.7L, Arterial Blood Partial Pressure O2 121.6H, Arterial Blood Total CO2 21.8L, Arterial Blood HCO3 21.1L, Arterial Blood Base Excess - 0.1, Arterial Blood Oxygen Saturation 98.9 11/25/19 13:04: Lactic Acid Followup at 4 Hours 1.7 CBC/BMP Laboratory Tests 11/25/19 08:19 Microbiology Microbiology 11/25/19 Blood Culture, Received Pending 11/25/19 Respiratory Virus Panel (PCR) (AIDEE) - Final, Complete 11/25/19 Blood Culture, Received Pending Allergies Coded Allergies: vancomycin (Verified Allergy, Intermediate, RASH/ITCHING, 03/26/19) Home Medications Scheduled Cholecalciferol (Vitamin D3) (Vitamin D3) 2,000 Unit Tablet, 2,000 UNIT PO DAILY, (Reported) Cyclosporine (Restasis) 0.05% Droperette, 1 DROP OU BID, (Reported) Dexamethasone (Dexamethasone) 4 Mg Tab, 12 MG PO ASDIRECTED for 28 Days, #12 TAKES DAYS 1,8,15,22 - LAST DOSE WAS DAY 1 OF CYCLE Diphenhydramine HCl (Benadryl) 25 Mg Capsule, 25 MG PO 3XW, (Reported) TAKE PRIOR TO DIALYSIS ON ,, Ergocalciferol (Vitamin D2) (Vitamin D2) 50,000 Units Cap, 50,000 UNITS PO QWEEK, (Reported) FRIDAYS Levothyroxine Sodium (Levoxyl) 50 Mcg Tablet, 50 MCG PO DAILY, (Reported) Lipase/Protease/Amylase (Pratibha Pandey 36,000 Units Capsule) 1 Each Capsule.dr, 2 CAP PO WM, (Reported) Lipase/Protease/Amylase (Pratibha Pandey 36,000 Units Capsule) 1 Each Capsule.dr, 1 CAP PO ASDIRECTED, (Reported) WITH SNACKS [place]-3 Fatty Acids/Fish Oil (Fish Oil 1,000 mg Capsule) 1 Each Capsule, 1,000 MG PO DAILY, (Reported) Sevelamer Carbonate (Renvela) 800 Mg Tablet, 800 MG PO WM, (Reported) Warfarin Sodium (Coumadin) 7.5 Mg Tablet, 5 MG PO QPM, (Reported) NEXT LABS TO BE DRAWN ON 11/29/19 Scheduled PRN Hydrocodone/Acetaminophen (Hydrocodone-Acetamin 5-325 mg) 1 Each Tablet, 1 TAB PO Q6H PRN for PAIN, (Reported) Ondansetron HCl (Ondansetron HCl) 8 Mg Tablet, 8 MG PO Q6H PRN for NAUSEA OR VOMITING, #30 TAKE ONE TABLET EVERY 6 HOURS NEEDED FOR NAUSEA. MAXIMILIANO BARRERA MD Nov 25, 2019 18:26
[2019-11-25] MEDS ORDERED: CREON-12 CAPSULE PO PRN (18:45)
[2019-11-25 19:13] LABS: INR 3.05; PROTHROMBIN TIME 31.5 SECONDS (11.8-14.0)
--- NOTE | 2019-11-25 19:14 | HPE ---
DATE OF ADMISSION: 11/25/2019 CHIEF COMPLAINT: Shortness of breath. HISTORY OF PRESENT ILLNESS: 74-year-old female with history of multiple myeloma, IgG kappa diagnosed 2008, status post stem cell transplant, now with recurrence and relapse, on chemotherapy and chronic prednisone. Receiving radiation. 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 The patient underwent hemodialysis per her usual schedule, Friday, Friday, Friday yesterday and felt very drained and tired. She finished at 9:30 p.m. and slept until 6:30 a.m. this morning. She woke up in the middle of the night feeling shortness of breath and dizzy when she went to the bathroom using her walker, despite 2-1/2 liters of chronic home oxygen, patient still felt dyspneic and had to sit down for a few minutes to catch her breath. She otherwise denies any chest pain, pressure, tightness, lightheadedness. She did complain of some dizziness which abated after sitting down. No fever, chills or cough. She had had a recent sick contact with her granddaughter who has nausea, vomiting and diarrhea and stomach pain. She has not exhibited any diarrhea, nausea or vomiting. She did note a little bit of epistaxis which abated on its own which is usual for her when her nose gets dry. She otherwise denies any chills, upper or lower extremity weakness. She has had no dysuria, urgency or frequency. In the ER when standing, patient was found to be hypoxic, dropping into 84% on 2 liters nasal cannula. Pressure is chronically low with mean arterial pressure about 65 to 70 and systolic pressure of 84 to 91. She was afebrile. Hospitalist was asked to admit. CT chest had no acute findings. No pulmonary embolism, infiltrate, effusions or lung masses. She has chronic SVC occlusion which per Dr. Granger is often seen due to scarring from previous vascular access attempts. Per Dr. Jessy Saab, despite being due for chemotherapy tomorrow, Friday, patient should be continued on dexamethasone and chemotherapy can be rescheduled. Patient says that she had pulmonary function tests done by Dr. Obregon years ago and did not feel that she had any lung disease and was not placed on any inhalers or any followup needed. She says that her daughter was arranging for a pulmonary reevaluation in [place]. PAST MEDICAL HISTORY: AV fistula, clotting and bleeding requiring ligation, removal. Appendectomy. Basal cell carcinoma removal. Right arm melanoma removal. Melanoma resection from her extremity. IgG kappa multiple myeloma diagnosed 2008, status post stem cell transplant, now with recurrence and relapse requiring chemotherapy and radiation. Peripheral neuropathy. End-stage renal disease, on maintenance dialysis. Secondary hyperparathyroidism. Anemia of chronic disease due to renal failure. Postherpetic neuralgia. Crohn disease, status post colectomy and ileostomy. History of hypothyroidism. Transient ischemic attack. ALLERGIES: VANCOMYCIN. FAMILY HISTORY: Patient lives at home, quit smoking in the 80s. Denies alcohol or any recreational drug use. PAST SURGICAL HISTORY: Colectomy. PermaCath. AV fistula. Vertebroplasty lumbar spine. FAMILY HISTORY: Mother had heart disease. HOME MEDICATIONS: - dexamethasone 12 mg as directed - hydrocodone acetaminophen 1 tablet every 6 as needed - Synthroid 50 mcg daily - Zofran 8 mg every 6 as needed - sevelamer 100 with meals - warfarin 7.5 tablet, 5 mg every p.m. - vitamin D 2000 units daily - Restasis 1 drop OU twice a day - Creon 1 capsule as directed, 2 capsules with meals - omega 3 fish oil 1 gram daily REVIEW OF SYSTEMS: Per HPI. 12-point system otherwise negative. PHYSICAL EXAMINATION: Temperature 97.4, pulse 88, respiratory rate 20, blood pressure 89/57, 99% on 2 liters nasal cannula. GENERAL: Awake, alert, oriented to person, place and times. Answering questions appropriately. No use of respiratory accessory muscles. No cyanosis, no tracheal deviation. Patient is able to speak in full sentences. Whispering, but no conversational dyspnea. No jugular venous distention (JVD). No thyromegaly or cervical lymphadenopathy. LUNGS: Air entry is equal bilaterally. Clear to auscultation. HEART: S1, S2, sinus rhythm. ABDOMEN: Soft, nontender, nondistended. Positive bowel sounds. Colectomy. EXTREMITIES: No cyanosis or clubbing. LABORATORY DATA: White count 7.3, hemoglobin 10, hematocrit 31, platelet count 281. Sodium 138, potassium 4.6, chloride 102, bicarbonate 26, BUN 37, creatinine 5.43. Glucose of 115. Lactic acid of 2.3, B lactic acid is 1.7. Calcium 8.7. Troponin less than 0.02. TSH of 2.740. Respiratory panel is negative. Two sets of blood cultures obtained. CT chest shows no pulmonary emboli, infiltrate or effusion. No mass, nodule or adenopathy. Reflux, collateralization of IV contrast suggests stenosis, possible occlusion of the superior vena cava. There is a right IJ central venous catheter. Demineralization, compression deformities of L1 vertebral bodies with vertebroplasties. ASSESSMENT AND PLAN: This is a 74-year-old female with history of multiple myeloma, Crohn's disease, hyperthyroidism, TIA, end-stage renal disease on maintenance dialysis with SVC occlusion, colectomy presents to the emergency room with 2 day history of worsening shortness of breath which started after hemodialysis. CT chest shows no pulmonary edema, infiltrates, afebrile. Hypoxic to 88% when she tries to ambulate. ACUTE ISSUES: 1. Acute on chronic hypoxic respiratory failure, on chronic 2 liters of oxygen. Titrate oxygen to greater than 90%. Patient currently has no acute infiltrate, pulmonary edema. No empiric antibiotics. Will check a total blood gas, cycle cardiac markers and 2D echocardiogram to rule out pulmonary hypertension. No wheezing on examination. No prior history of any smoking in the past. Clinically appears to be euvolemic. 2. End-stage renal disease, on maintenance dialysis. Clinically appears to be euvolemic. 3. End-stage renal disease, on maintenance dialysis. Dr. Nelson has been consulted. Strict Intake and output (I and O), renal diet. 4. Multiple melanoma with relapse and recurrence requiring chemotherapy and radiation per Dr. Jessy Saab, oncologist. Patient may be continued on her dexamethasone which she has taken for several years. Her chemotherapy can be postponed while she is admitted to the hospital. The goal for her is to keep the myeloma quiet without expectation for cure. 5. Secondary hyperparathyroidism. Resume home medications. 6. Anemia of chronic disease due to myeloma and renal failure. Hemoglobin and hematocrit appears to be stable. No indication for RBC transfusion. 7. History of Crohn disease, status post colectomy and ileostomy. Appears to be stable. No changes in output according to the patient. Monitor for electrolyte changes. 8. Hyperthyroidism. Resume on her home dose Synthroid. 9. History TIA. On chronic warfarin. 10. History of blood clots. On chronic warfarin. Check daily INR. MTDD
[2019-11-25 20:04] LABS: CK-MB VALUE MASS < 1.0 NG/ML (<3.6); CPK CREATINE PHOSPHOKINASE 29 U/L (26-192); MB/CK RELATIVE INDEX 3.45 (< OR =4); TROPONIN I < 0.02 NG/ML (< 0.10)
[2019-11-25 23:52] VITALS: BP 112/56
[2019-11-26 01:12] LABS: CK-MB VALUE MASS < 1.0 NG/ML (<3.6); CPK CREATINE PHOSPHOKINASE 34 U/L (26-192); MB/CK RELATIVE INDEX 2.94 (< OR =4); TROPONIN I < 0.02 NG/ML (< 0.10)
[2019-11-26 04:00] VITALS: BP 85/52
[2019-11-26] MEDS: LEVOTHYROXINE 50MCG TABLET (0.05MG) PO SCH (05:39)
[2019-11-26 05:44] LABS: CK-MB VALUE MASS < 1.0 NG/ML (<3.6); CPK CREATINE PHOSPHOKINASE 33 U/L (26-192); MB/CK RELATIVE INDEX 3.03 (< OR =4); TROPONIN I < 0.02 NG/ML (< 0.10)
[2019-11-26 08:00] VITALS: BP 80/47
[2019-11-26] MEDS: (RENVELA) SEVELAMER **CARBONate** 800 MG TAB PO SCH ×3 (08:00→18:23)
[2019-11-26] MEDS: CREON-24 CAPSULE PO SCH ×3 (08:00→18:23)
[2019-11-26] MEDS: VITAMIN D 1,000 INTERNATIONAL UNITS TABLET PO SCH (08:14)
[2019-11-26] MEDS ORDERED: NS 500 ML IV ONE ×2 (09:15→16:00)
[2019-11-26 09:40] LABS: BASO % 0.1 % (0.0-1.0); EOS # 0.2 10^3/uL (0.0-0.5); EOS % 2.1 % (0.0-3.0); HEMATOCRIT 32.9 % (36.0-47.0); HEMOGLOBIN 10.6 g/dl (12.0-15.5); LYMPH % 13.2 % (24.0-44.0); MEAN CORPUSCULAR HEMOGLOBIN 32.7 pg (27.0-33.0); MEAN CORPUSCULAR HGB CONC 32.2 g/dl (32.0-36.5); MEAN CORPUSCULAR VOLUME 101.5 fl (80.0-96.0); MONO # 0.6 10^3/uL (0.0-0.8); MONO % 7.7 % (0.0-5.0); NEUTROPHILS # 5.5 10^3/uL (1.5-8.5); NEUTROPHILS % 76.5 % (36.0-66.0); PLATELET COUNT, AUTOMATED 277 10^3/uL (150-450); RED BLOOD COUNT 3.24 10^6/uL (4.00-5.40); WHITE BLOOD COUNT 7.2 10^3/uL (4.0-10.0)
[2019-11-26 09:56] LABS: ERYTHROCYTE SEDIMENTATION RATE 77 mm/hr (0-30)
--- NOTE | 2019-11-26 10:02 | REP ---
Chest x-ray: Two views. History: Shortness of breath. Javed chest x-ray: November 25, 2019. Findings: A central venous tunnel catheter is noted in place with its tip in the expected location of the superior vena cava. There is a catheter overlying the right heart consistent with a inferior vena cava catheter perhaps a femoral vein aligned. Nipple silhouettes project at the bases. There is a vascular stent in the left axillary soft tissues and there are clips in the right axillary soft tissues. Advanced diffuse osteoporosis is noted and there are vertebroplasty densities in three adjacent lower thoracic vertebrae. There is no evidence of infiltrate. Pleural angles are sharp. Pulmonary vasculature is not increased. Impression: No active cardiopulmonary disease. Electronically Signed by Dejon Daniel MD 11/26/2019 09:54 A
[2019-11-26 10:11] LABS: BLOOD UREA NITROGEN 46 MG/DL (7-18); C REACTIVE PROTEIN QUANTITATIV 1.24 MG/DL (0.00-0.30); CALCIUM LEVEL 8.3 MG/DL (8.8-10.2); CARBON DIOXIDE LEVEL 24 MEQ/L (21-32); CHLORIDE LEVEL 98 MEQ/L (98-107); CREATININE FOR GFR 7.47 MG/DL (0.55-1.30); GLOMERULAR FILTRATION RATE 5.7 (>39); GLUCOSE, FASTING 107 MG/DL (70-100); NT-PRO BNP 1053 PG/ML (<125); POTASSIUM SERUM 4.1 MEQ/L (3.5-5.1); SODIUM LEVEL 133 MEQ/L (136-145)
[2019-11-26] MEDS: SODIUM CHLORIDE 0.9% INJ 10 ML SYR IV PRN (10:46)
[2019-11-26 12:00] VITALS: BP 87/55
[2019-11-26 12:11] LABS: MONO REFLEX EBV COMP NEGATIVE (NEGATIVE)
[2019-11-26 16:00] VITALS: BP 72/42
--- NOTE | 2019-11-26 16:21 | IPNPDOC ---
Date Seen The patient was seen on 11/26/19. Progress Note SUBJECTIVE: Patient is a -year-old [RACE] [GENDER] with OBJECTIVE PHYSICAL EXAMINATION: VITAL SIGNS: Please see below. GENERAL: HEENT: CARDIOVASCULAR: . RESPIRATORY: . ABDOMINAL: EXTREMITIES: NEUROLOGICAL: PSYCHOLOGICAL: LABORATORY DATA, IMAGING STUDIES, MICROBIOLOGY: Please see below. Echocardiogram: . DVT prophylaxis ordered?: ASSESSMENT AND PLAN: This is a -year-old [RACE] [GENDER] with . PROBLEMS: 1. : . 2. : . 3. : . DISPOSITION: . VS, I&O, 24H, Fishbone Vital Signs/I&O severe protein calorie malnutrition in the setting of recurrent multiple myeloma and esrd. Vital Signs Date Time Temp Pulse Resp B/P (MAP) Pulse Ox O2 Delivery O2 Flow Rate FiO2 11/26/19 12:00 2.0 11/26/19 08:00 98.2 86 18 80/47 (58) 97 Room Air I&O- Last 24 Hours up to 6 AM 11/26/19 06:00 Intake Total 500 ml Output Total 375 ml Balance 125 ml Laboratory Data 24H LABS Laboratory Tests 2 11/25/19 18:24: Erythrocyte Sedimentation Rate 83H, Prothrombin Time 31.5H, Prothromb Time International Ratio 3.05, Lactic Acid Level 1.6, Total Creatine Kinase 29, Creatine Kinase MB < 1.0, Creatine Kinase MB Relative Index 3.45, Troponin I < 0.02, C-Reactive Protein, Quantitative 1.87H 11/26/19 00:15: Total Creatine Kinase 34, Creatine Kinase MB < 1.0, Creatine Kinase MB Relative Index 2.94, Troponin I < 0.02 11/26/19 04:52: Total Creatine Kinase 33, Creatine Kinase MB < 1.0, Creatine Kinase MB Relative Index 3.03, Troponin I < 0.02 11/26/19 09:23: Erythrocyte Sedimentation Rate 77H, Lactic Acid Level 2.5*H, C-Reactive Protein, Quantitative 1.24H, Immature Granulocyte % (Auto) 0.4, Neutrophils (%) (Auto) 76.5H, Lymphocytes (%) (Auto) 13.2L, Monocytes (%) (Auto) 7.7H, Eosinophils (%) (Auto) 2.1, Basophils (%) (Auto) 0.1, Neutrophils # (Auto) 5.5, Lymphocytes # (Auto) 1.0L, Monocytes # (Auto) 0.6, Eosinophils # (Auto) 0.2, Basophils # (Auto) 0.0, Nucleated Red Blood Cells % (auto) 0.0, Anion Gap 11, Glomerular Filtration Rate 5.7L, Calcium Level 8.3L, HS-Tsm-E-Type Natriuretic Peptide 1053H, Monoscreen NEGATIVE 11/26/19 14:02: Lactic Acid Followup at 4 Hours 2.6*H CBC/BMP Laboratory Tests 11/26/19 09:23 Microbiology Microbiology 11/25/19 Blood Culture - Preliminary, Resulted No growth after 24 hours . All specim... 11/25/19 Respiratory Virus Panel (PCR) ([facility]) - Final, Complete 11/25/19 Blood Culture - Preliminary, Resulted No growth after 24 hours . All specim... AMERICA RAMÍREZ MD Nov 26, 2019 16:21
[2019-11-26] MEDS: NS 1,000 ML IV SCH (16:50)
[2019-11-26 16:57] VITALS: BP 108/55
[2019-11-26] MEDS: WARFARIN SOD 5 MG TAB PO SCH (17:21)
[2019-11-26 20:00] VITALS: BP 84/51
--- NOTE | 2019-11-26 20:13 | ECGEPIP ---
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
--- NOTE | 2019-11-26 20:58 | IPN ---
DATE: 11/26/2019 Overnight, the patient remained afebrile. She continues to complain of shortness of breath but CT of the chest showed no edema, infiltrate, pleural effusion, or pulmonary embolism. She has no cough. No nausea or vomiting. No epigastric pain. Complains of feeling thirsty this morning. She remains hypotensive with no other source of infection. She is responding to IV fluids with systolic pressure increasing from 76 systolic to 112 systolic with intravenous fluids. The patient's urine output was 375 overnight and after midnight it was 2.1 liters. The patient otherwise denies any dysuria, urgency, frequency, fever, chills, or flank pain. No other issues per nursing overnight. The family reports that the patient has been exposed to her great grandson who was recently diagnosed with mononucleosis. PHYSICAL EXAMINATION: VITAL SIGNS: Temperature 98.2, pulse 86, respiratory rate 18, blood pressure 80/47, 97% on room air. GENERAL: The patient is awake, alert, oriented to person, place and time. Answering questions appropriately. Anicteric sclerae. No jaundice. Able to speak in full sentences. No conversational dyspnea. No jugular venous distention (JVD), thyromegaly or cervical lymphadenopathy. Dry mucous membranes. LUNGS: Clear to auscultation. No wheezing, rales or rhonchi. Air entry is equal bilaterally. No use of respiratory accessory muscles. Able to speak in full sentences. HEART: S1, S2. Sinus rhythm. ABDOMEN: Soft, nontender, nondistended. Positive bowel sounds. EXTREMITIES: No cyanosis, clubbing or any pitting edema. LABORATORY DATA: White count 7.2, hemoglobin 10, hematocrit 32, platelet count 277, 76% neutrophils, sed rate is 77. Sodium 133, potassium 4.1, chloride 98, bicarbonate 24, BUN 46, creatinine 7.47, glucose 107, lactic acid 2.6, calcium 8.3, C-reactive protein 1.24, BNP is 1053, procalcitonin is pending. Blood culture with no growth. Respiratory panel is negative. IMAGING STUDIES: CT of the abdomen and pelvis with no pulmonary emboli and no infiltrates or effusion. No masses, nodules or adenopathy. Reflux in collateralization of the intravenous contrast suggestive of stenosis and possibly occlusion of the superior vena cava. There is a right IJ central venous catheter. Demineralization, compression deformities of the T12-L1 vertebral bodies with vertebroplasties. ASSESSMENT AND PLAN: This is a 74-year-old female with a history of multiple myeloma diagnosed in 2008, IgG kappa, status post stem cell transplant and now with recurrent relapse on chemotherapy, chronic prednisone, receiving radiation, peripheral neuropathy, end stage renal disease on maintenance dialysis on a Friday, Friday and Friday schedule, secondary hyperparathyroidism, Crohn's disease, status post colectomy, ileostomy, TIA, history of clots on chronic warfarin, who presented to the emergency room with a 2 day history of worsening shortness of breath after hemodialysis on Friday. The patient felt drained and tired with increased sleepiness. Despite 2.5 liters of chronic home oxygen, the patient felt hypoxic. She was recently exposed to her grandchild who has mononucleosis. THe patient was found to be 84% on 2 liters nasal cannula. In the emergency room, hospitalist was asked to admit, the patient was found to have a systolic pressure of [address] of the chest showed no acute findings. The hospitalist was called to admit for further evaluation of the patient's dyspnea. Per the patient, she has had prior pulmonary function tests done by Dr. Obregon in the past, which were negative, did not feel that she had any lung disease. Per her oncologist Dr. Jessy Saab, patient's symptoms are entirely unrelated to her multiple myeloma relapse or chemotherapy, but generally has poor prognosis due to recurrence with no intent for cure but only for palliative treatments. The patient has the following issues: 1. Acute on chronic hypoxic respiratory failure on chronic 2 liters of oxygen. The patient currently is saturating well. CT of the chest showed no pulmonary embolism, edema, infiltrate or pleural effusion. She is clinically dry and currently receiving intravenous fluids. Respiratory panel, blood cultures are all negative. We will check urinalysis. No empiric antibiotic at this time as there appears to be no source of infection at this time. 2. End stage renal disease on maintenance dialysis on Friday, Friday and Friday. Defer to nephrology for any dialysis needs. At this time, she appears to be hypovolemic due to decrease in oral intake. Therefore, we will continue with gentle hydration. 3. Multiple myeloma with relapse and recurrence. Requiring chemotherapy and radiation. The patient has poor overall prognosis with no plans of recovery. She is currently undergoing palliative treatment, but will keep her myeloma quiet without any expectation of curing it. 4. Secondary hyperparathyroidism. Resume her home medications. 5. Anemia of chronic disease due to myeloma and renal failure. Hemoglobin and hematocrit appear to be stable and not contributing to her symptoms of dyspnea. 6. Hypothyroidism. Continue on her home dose of Synthroid. 7. History of transient ischemic attack and chronic blood clots. On chronic warfarin, which is therapeutic. 8. History of superior vena cava scarring due to multiple vascular accesses. Defer to Dr. Granger for access. [facility]
[2019-11-26] MEDS ORDERED: HYDROCORTISONE 100 MG/2 ML VIAL (J1720 PER 1) IV ONE (22:00)
--- NOTE | 2019-11-26 22:44 | CR ---
DATE OF CONSULTATION: 11/26/2019 REQUESTING PHYSICIAN: Dr. Romi Reagan CONSULTING PHYSICIAN: Dr. J Carlos Nelson REASON FOR CONSULTATION: Management of end-stage renal disease and hemodialysis. CHIEF COMPLAINT: The patient was sent to the emergency room yesterday because of progressive shortness of breath and low blood pressures. HISTORY OF PRESENT ILLNESS: Yoana Escobedo is a 74-year-old female with past medical history of end-stage renal disease, on hemodialysis every Friday, Friday, Friday. History of multiple myeloma, failed stem cell transplant. The patient is currently in relapse, currently getting chemotherapy and recently received radiation therapy in the left shoulder as well. Multiple other comorbidities as mentioned below. Her last hemodialysis was done last Friday. The patient is due for her chemotherapy; however, she is so weak and tired with low blood pressures, she has progressive shortness of breath. She presented to the emergency room. In the emergency room (ER), when she walks around, her oxygen saturation dropped to 84%. She was admitted under the hospitalist service last night. Nephrology service was called for further help in the management of end-stage renal disease. I saw and evaluated the patient today morning at the bedside. She had lactic acidosis on admission. The patient was hypotensive in the morning. She was given 500 mL of normal saline bolus when I saw her. Although today is the patient's regular dialysis day, because of her low blood pressures dialysis has been postponed today. PAST MEDICAL HISTORY: Past medical history of end-stage renal disease, on hemodialysis, history of multiple myeloma, history of stem cell transplant in the past, which has failed and now she is currently in relapse of multiple myeloma, peripheral neuropathy, secondary hyperparathyroidism, anemia in end-stage renal disease and secondary to malignancy, Crohn's disease, status post colectomy and ileostomy status, hypothyroidism, transient ischemic attacks (TIAs) in the past. PAST SURGICAL HISTORY: Status post colectomy, status post Perma-Cath placement, history of arteriovenous (AV) fistula placement, which has failed now, vertebroplasty. ALLERGIES: The patient is allergic to VANCOMYCIN. FAMILY HISTORY: No significant family history of end-stage renal disease requiring hemodialysis. SOCIAL HISTORY: The patient lives at home. She denies any smoking, illicit drug abuse or alcohol abuse. REVIEW OF SYSTEMS: Constitutional: Patient reports feeling very weak and tired. Eyes: She denies any blurry vision, double vision. Ears, Nose, and Throat (ENT): She denies any dysphagia, odynophagia. Cardiovascular: She denies any chest pain or palpitations. Respiratory: She does report progressive shortness of breath. Gastrointestinal (GI): She denies any nausea or vomiting. Genitourinary: She reports decreased urine output. Musculoskeletal: She reports muscle weakness. [employer] MECH[employer]IC: She reports a history of TIAs in the past. Skin: She denies any rashes or ulcers. Psychiatric: She denies any depression or anxiety. Hematology/Oncology: She reports multiple myeloma and relapse. All other review of systems is negative. PHYSICAL EXAMINATION: General: The patient is awake, alert, oriented times three, weak and cachectic, laying in bed. Vital signs: Temperature is 98.3 degrees Fahrenheit, blood pressure was 80/47 in the morning, pulse is 86, respiratory rate of 18, saturating 97% on room air. Head and neck exam: Extraocular muscles intact. Pupils equally round and reactive to light. Mucous membranes are moist. Neck is supple. There is no jugular venous distention (JVD). She has a right interna jugular (IJ) tunneled hemodialysis catheter. Cardiovascular: S1, S2, regular rate. No edema of the bilateral lower extremities. Respiratory: Chest is clear to auscultation bilaterally. Bilateral equal air entry. No rales or rhonchi. Abdomen: Soft, positive bowel sounds. Right lower quadrant ileostomy was noted. Musculoskeletal: No clubbing or cyanosis. The patient has a port in the right groin, which is being used for IV fluid. [employer]: No focal deficit. Power is 5/5 in bilateral upper extremities. Skin: No rashes or ulcers, but she does have decreased skin turgor. LAB REVIEW: CBC showed a WBC of 7.2, hemoglobin 10.6, platelets are 277, INR is 3. Urinalysis done showed it was cloudy with 3+ leukocyte esterase. BMP showed sodium 133, potassium 4.1, chloride 98, bicarbonate 24, BUN 46, creatinine 7.4, calcium 8.3, C-reactive protein is 1.24. Microbiology: Blood cultures are negative so far. Respiratory viral panel is negative. IMAGING: A CT angiogram of the chest was done, which was negative for pulmonary embolism (PE). A chest x-ray was done today morning, which showed no cardiopulmonary process. CURRENT INPATIENT MEDICATIONS: The patient's medications were all reviewed by myself. She was given normal saline boluses and then she was started on normal saline at 75 mL an hour. She is also on dexamethasone 12 mg by mouth every 7 days. She is on levothyroxine 50 mcg by mouth daily, Zofran as needed, pancreatic enzymes 24,000 units with each meal, Renvela 800 mg by mouth with meals, vitamin D 2000 units by mouth daily and warfarin 5 mg by mouth every evening ASSESSMENT: 74-year-old female with end-stage renal disease, on hemodialysis every Friday, Friday, Friday, history of multiple myeloma in relapse, admitted at this time with hypotension, lactic acidosis, progressive shortness of breath. PLAN: 1. Hypotension and lactic acidosis. The patient was getting IV fluid bolus when I saw her. Cultures are still pending. X-ray did not show any infiltrate. She has a history of steroid use every weekend. I am going to give her a stress dose of hydrocortisone 100 mg IV tonight. 2. End-stage renal disease, on hemodialysis. The patient's regular dialysis days are Friday, Friday, Friday. Because of hypotension, dialysis has been postponed until tomorrow when she is clinically feeling better. 3. Multiple myeloma in relapse. The patient cannot get chemotherapy at this time because of her clinical condition. She recently got radiation therapy to the left shoulder. Hematology/Oncology wants to keep her on steroids. The patient will get her steroid dose over the weekend. 4. 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 Hemoglobin level is within the acceptable range. She will be given Aranesp as needed during dialysis. 5. Chronic superior vena cava (SVC) occlusion. The patient is currently on warfarin. She is not a surgical candidate at this time for arteriovenous (AV) fistula placement because of her clinical condition. 6. Chronic kidney disease mineral bone disease. Continue current dose of Renvela 800 mg by mouth with meals. 7. Hypothyroidism. Continue current dose of levothyroxine 50 mcg by mouth daily. Thank you for involving me in the care of this patient. I shall be happy to follow the patient along with you tomorrow morning.
[2019-11-27] VITALS: BP 91/58
[2019-11-27 04:00] VITALS: BP 95/52
[2019-11-27] MEDS: NS 1,000 ML IV SCH (05:06)
[2019-11-27 05:19] LABS: BASO % 0.2 % (0.0-1.0); EOS % 0.3 % (0.0-3.0); HEMATOCRIT 31.2 % (36.0-47.0); LYMPH # 0.8 10^3/uL (1.5-5.0); MEAN CORPUSCULAR HEMOGLOBIN 32.7 pg (27.0-33.0); MEAN CORPUSCULAR HGB CONC 32.1 g/dl (32.0-36.5); MONO # 0.2 10^3/uL (0.0-0.8); NEUTROPHILS # 5.4 10^3/uL (1.5-8.5); PLATELET COUNT, AUTOMATED 262 10^3/uL (150-450); RED BLOOD COUNT 3.06 10^6/uL (4.00-5.40); WHITE BLOOD COUNT 6.4 10^3/uL (4.0-10.0)
[2019-11-27 05:35] LABS: INR 3.7; PROTHROMBIN TIME 36.7 SECONDS (11.8-14.0)
[2019-11-27 05:59] LABS: CALCIUM LEVEL 7.5 MG/DL (8.8-10.2); CREATININE FOR GFR 8.24 MG/DL (0.55-1.30); GLOMERULAR FILTRATION RATE 5.1 (>39); POTASSIUM SERUM 4.1 MEQ/L (3.5-5.1)
[2019-11-27] MEDS: LEVOTHYROXINE 50MCG TABLET (0.05MG) PO SCH (06:09)
[2019-11-27 07:34] VITALS: BP 100/56
[2019-11-27] MEDS: cefTRIAXone SOD 1 GM in D5W MINI-BAG PLUS 50 ML IV SCH (07:46)
[2019-11-27] MEDS: VITAMIN D 1,000 INTERNATIONAL UNITS TABLET PO SCH (07:46)
[2019-11-27] MEDS: (RENVELA) SEVELAMER **CARBONate** 800 MG TAB PO SCH ×3 (07:47→17:40)
[2019-11-27] MEDS: CREON-24 CAPSULE PO SCH ×3 (07:47→17:41)
--- NOTE | 2019-11-27 08:15 | ECHO ---
DATE OF PROCEDURE: 11/26/2019 REFERRING PHYSICIAN: Dr. Romi Reagan. PATIENT LOCATION: Room 3219 REASON FOR STUDY: Shortness of breath. 2D MEASUREMENT: LVS - 0.8 cm LV - 3.1 cm LVPW - 0.9 cm LA - 1.8 cm Aorta - 2.6 cm Aortic root - 2.6 cm Ascending aorta - 2.8 cm IVC - 1.1 cm DOPPLER MEASUREMENTS: Peak velocity across the aortic valve - 0.88 m/s Peak velocity across the LVOT - 0.76 m/s Mitral E - 0.59, mitral A - 0.68 with a ratio of - 0.9 Maximum tricuspid valve velocity - 2.1 m/s 2D COMMENTS: 1. Normal left ventricular size, wall thickness but with a mildly depressed global left ventricular systolic function. The anteroseptum appeared to be mildly hypokinetic. The estimated ventricular systolic ejection fraction is 45%. 2. Normal left atrium. Normal right atrium and right ventricle. 3. The atrial septum appeared to be normal without evidence of defect or shunt. 4. Normal aortic root. 5. No pericardial effusion seen. 6. Mildly calcified aortic valve with normal leaflet excursion. Mildly calcified mitral annulus with normal anterior mitral valve leaflet motion. Normal tricuspid valve and pulmonic valve. The proximal pulmonary artery branches were not well visualized. 7. The inferior vena cava was normal in size at 1.1 cm. Central venous pressure is most likely normal. Doppler: No significant valvular abnormalities detected but trace to mild tricuspid regurgitation as well as trace pulmonic regurgitation. The calculated pulmonary artery systolic pressure was normal, less than 30 mmHg. Abnormal relaxation pattern was noted across the mitral valve leaflets as well as the mitral valve annulus consistent with features of grade 1 left ventricular diastolic dysfunction. IMPRESSION: 1. Mild global left ventricular systolic dysfunction with regional wall motion abnormalities. This was compared with prior echocardiogram on 03/26/2019 and it seems that left ventricular systolic function is now lower. 2. Aortic valve sclerosis without stenosis or aortic radiation. 3. Isolated mitral annulus calcification. No evidence of mitral regurgitation or mitral stenosis. 4. Trace to mild tricuspid radiation with a normal calculated pulmonary artery systolic pressure. 5. Trace pulmonic regurgitation.
--- NOTE | 2019-11-27 08:40 | REP ---
AP PORTABLE CHEST: 11/27/2019. COMPARISON: Chest x-ray 11/26/2019, portable chest 11/25/2019, CT angio 11/25/2019. CLINICAL HISTORY: Dyspnea. FINDINGS: Indwelling right jugular dialysis catheter with tip in SVC. Axillary surgical clips on the right and clips in the right upper arm region. Vascular stent in the left axillary region. There is a catheter overlying the IVC. This extends to the atrium. The lung george are well inflated. There is no effusion or infiltrate. Some underlying interstitial fibrotic changes are noted. No effusion, lateral pleural thickening apical scarring or pneumothorax. No dense consolidation, atelectasis or mass. The heart is not enlarged. The aorta is tortuous but unchanged and normal for age. Airway intact. The bones are demineralized. Scattered lucencies in the shaft of the humerus on each side consistent with a known myeloma. IMPRESSION: 1. The lines and tubes as described, are stable. 2. Some postsurgical changes in the axilla. 3. Lung george well inflated and clear. Heart, mediastinal and hilar contours normal. Electronically Signed by Mack Barragan MD 11/27/2019 07:50 P
[2019-11-27] MEDS: HYDROCORTISONE 10 MG TAB PO SCH ×2 (12:45→20:04)
--- NOTE | 2019-11-27 12:53 | IPNPDOC ---
Date Seen The patient was seen on 11/27/19. Progress Note Patient seen and examined, and family is at the bedside today. We had another long talk about options for dialysis access, and the limitations of all of her options. Unfortunately, the patient is in an extremely challenging vascular access situation. She initially went for access placement for her chemotherapy for multiple myeloma, and they were unable to give her a jugular access from the left and she ended up with a right femoral access. Obviously this is not ideal, but this is the type of end-stage vascular access we are dealing with, and it was the best option available. Regarding a new access in her left upper extremity, I'm not sure that she has enough outflow to maintain patency of a brachial axillary graft. Her previous graft likely failed due to outflow limitations. On the right upper extremity, she has a huge incision over the shoulder from cancer surgery, and also had lymph nodes removed from the right axilla. This makes a right brachial axillary graft also a bit of a challenge and possibly unsuccessful. 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 We could also possibly try to angioplasty through her jugular access by exchanging the catheter for sheath, but without removing the PermCath, the vein will just restenosed down over the catheter. Unfortunately, after a year with a PermCath in place, the central veins stenosis is likely going to be resistant to angioplasty and may be permanent. She does still have some flow through the central veins, but not much. I'm just not sure if he either upper extremity is suitable for new graft placement. We had a long talk about this today, and I feel the best option is still for us to discuss her long-term prognosis with Dr. Granger, and ferny lightly for now. She says she is feeling better, definitely less short of breath, and less fatigued. She said when she came in the hospital she was severely dehydrated due to her ileostomy, but she thinks that is also improved. We will plan to see her outpatient clinic and discuss options further. I did impress upon her today that I would continue to try to come up with a good option for her but it may be to the point where we need to send her to see her cues for options if she truly wants an alternative to the PermCath. She is agreeable to our plan and we will have further conversations in clinic. VS, I&O, 24H, Fishbone Vital Signs/I&O Vital Signs Date Time Temp Pulse Resp B/P (MAP) Pulse Ox O2 Delivery O2 Flow Rate FiO2 11/27/19 07:34 97.6 82 18 100/56 (71) 99 Room Air 11/26/19 12:00 2.0 I&O- Last 24 Hours up to 6 AM 11/27/19 06:00 Intake Total 2415 ml Output Total 3750 ml Balance -1335 ml Laboratory Data 24H LABS Laboratory Tests 2 11/26/19 14:02: Lactic Acid Followup at 4 Hours 2.6*H 11/26/19 17:07: Urine Color YELLOW, Urine Appearance CLOUDYH, Urine pH 6.0, Urine Specific Hancock 1.039, Urine Protein 1+H, Urine Glucose (UA) NEGATIVE, Urine Ketones NEGATIVE, Urine Blood 1+H, Urine Nitrite NEGATIVE, Urine Bilirubin NEGATIVE, Urine Urobilinogen 0.2, Urine Leukocyte Esterase 3+H, Urine WBC (Auto) 50H, Urine RBC (Auto) 10H, Urine Hyaline Casts (Auto) 0, Urine Bacteria (Auto) 1+H, Urine Squamous Epithelial Cells 27, Urine Renal Epithelial Cells 1, Urine Sperm (Auto) 11/27/19 05:08: Immature Granulocyte % (Auto) 0.5, Neutrophils (%) (Auto) 83.0H, Lymphocytes (%) (Auto) 13.0L, Monocytes (%) (Auto) 3.0, Eosinophils (%) (Auto) 0.3, Basophils (%) (Auto) 0.2, Neutrophils # (Auto) 5.4, Lymphocytes # (Auto) 0.8L, Monocytes # (Auto) 0.2, Eosinophils # (Auto) 0.0, Basophils # (Auto) 0.0, Nucleated Red Blood Cells % (auto) 0.0, Prothrombin Time 36.7H, Prothromb Time International Ratio 3.70, Anion Gap 12, Glomerular Filtration Rate 5.1L, Calcium Level 7.5L CBC/BMP Laboratory Tests 11/27/19 05:08 Microbiology Microbiology 11/26/19 Urine Culture, Received Pending 11/25/19 Blood Culture - Preliminary, Resulted No Growth after 48 hours. All Specime... 11/25/19 Respiratory Virus Panel (PCR) ([facility]) - Final, Complete 11/25/19 Blood Culture - Preliminary, Resulted No Growth after 48 hours. All Specime... MAXIMILIANO BARRERA MD Nov 27, 2019 12:53
[2019-11-27] MEDS ORDERED: HEPARIN 1,000 UNITS/ML 10ML VIAL (FOR RADIOLOGY& DIALYSIS ONLY)(J1644-10) IV ONE (13:45)
[2019-11-27] MEDS ORDERED: HEPARIN 1,000 UNITS/ML 10ML VIAL (FOR RADIOLOGY& DIALYSIS ONLY)(J1644-10) XX ONE (13:45)
[2019-11-27] MEDS: NORCO, ANEXSIA 5/325MG TABLET (HYDROcodone/ACETAMINOPHEN) PO PRN (16:09)
--- NOTE | 2019-11-27 19:44 | IPN ---
DATE: 11/27/2019 Patient is afebrile. No chills. Has a slight cough. No sputum production. No shortness of breath. Complains of generalized fatigue as she ambulates around the room and outside. Patient says that she has a very concentrated urine this morning despite drinking liquids. Appetite is still not back to baseline. She did tolerate her oatmeal this morning. Temperature 97.6, pulse 82, respiratory rate 18, blood pressure 100/56, 99% on room air. GENERAL: Patient is cachectic appearing. Bitemporal wasting. Able to speak in full sentences. No conversational dyspnea. No use of respiratory accessory muscles. Trachea is midline. Dry mucous membranes. No jugular venous distention (JVD) or thyromegaly. LUNGS: Clear to auscultation. No wheezes, rales, or rhonchi. HEART: S1, S2, sinus rhythm. ABDOMEN: Soft, nontender, nondistended. Ileostomy. EXTREMITIES: No cyanosis, clubbing, or pitting edema. Urine culture is pending. Respiratory syncytial virus (RSV) is negative. ASSESSMENT AND PLAN: This is a 74-year-old female with history of multiple myeloma diagnosed in 2008, IgG kappa, status post stem cell transplant, now with recurrence and relapse, on palliative chemotherapy, chronic prednisone. Received radiation. Peripheral neuropathy, end-stage renal disease, on maintenance dialysis Friday, Friday, Friday, Crohn's disease with ileostomy, transient ischemic attacks (TIAs), three clots, on chronic warfarin, presents with 2-day history of worsening shortness of breath after dialysis on Friday and feeling fatigued and drained out. She was found to be 84% on 2 liters nasal cannula. She was admitted for further evaluation. CT chest had no pulmonary embolism (PE), pulmonary edema, or pleural effusion. No consolidation. IMPRESSION: 1. Acute on chronic hypoxic respiratory failure, on chronic 2 liters of oxygen, currently saturating well. No acute findings on CT chest. Without any pulmonary embolism, edema, consolidation, or infiltrates. Respiratory panel is negative. Blood culture is negative. 2. Urinary tract infection (UTI). Currently on intravenous (IV) ceftriaxone renally dosed. End-stage renal disease. 3. On maintenance hemodialysis. Dr. Nelson, nephrology, has been consulted for dialysis needs. 4. Poor vascular access with chronic superior vena cava scarring due to multiple attempts for vascular access in the past. Dr. Granger, vascular surgery, has been consulted. 5. Secondary hyperparathyroidism. Resumed home medications. 6. Anemia of chronic disease due to multiple myeloma and renal failure. Hemoglobin and hematocrit appear to be stable, not contributing to her dyspnea. 7. Hypothyroidism, on Synthroid. 8. History of TIA and chronic blood clots, on chronic warfarin, which is therapeutic. MTDD
[2019-11-27] MEDS ORDERED: DARBEPOETIN 100 MCG/0.5 ML *DIALYSIS* SYRINGE (J0882) IV SCH (19:45)
[2019-11-27 22:00] VITALS: BP 80/54
[2019-11-27 23:41] VITALS: BP 76/48
[2019-11-28 02:21] VITALS: BP 74/47
[2019-11-28 06:00] VITALS: BP 78/46
[2019-11-28] MEDS: LEVOTHYROXINE 50MCG TABLET (0.05MG) PO SCH (06:10)
[2019-11-28 06:59] LABS: BASO % 0.3 % (0.0-1.0); EOS # 0.1 10^3/uL (0.0-0.5); EOS % 0.9 % (0.0-3.0); HEMATOCRIT 35.1 % (36.0-47.0); HEMOGLOBIN 11.4 g/dl (12.0-15.5); LYMPH # 1.8 10^3/uL (1.5-5.0); LYMPH % 22.5 % (24.0-44.0); MEAN CORPUSCULAR HEMOGLOBIN 32.6 pg (27.0-33.0); MEAN CORPUSCULAR HGB CONC 32.5 g/dl (32.0-36.5); MEAN CORPUSCULAR VOLUME 100.3 fl (80.0-96.0); MONO # 0.9 10^3/uL (0.0-0.8); MONO % 11.2 % (0.0-5.0); NEUTROPHILS # 5.1 10^3/uL (1.5-8.5); NEUTROPHILS % 64.6 % (36.0-66.0); PLATELET COUNT, AUTOMATED 316 10^3/uL (150-450); WHITE BLOOD COUNT 7.9 10^3/uL (4.0-10.0)
[2019-11-28 07:22] LABS: CALCIUM LEVEL 9.6 MG/DL (8.8-10.2); CREATININE FOR GFR 6.32 MG/DL (0.55-1.30); GLOMERULAR FILTRATION RATE 6.9 (>39); POTASSIUM SERUM 4.1 MEQ/L (3.5-5.1)
[2019-11-28] MEDS: cefTRIAXone SOD 1 GM in D5W MINI-BAG PLUS 50 ML IV SCH (07:57)
[2019-11-28] MEDS: HYDROCORTISONE 10 MG TAB PO SCH ×2 (07:58→20:12)
[2019-11-28] MEDS: VITAMIN D 1,000 INTERNATIONAL UNITS TABLET PO SCH (07:58)
[2019-11-28] MEDS: (RENVELA) SEVELAMER **CARBONate** 800 MG TAB PO SCH ×3 (07:58→17:50)
[2019-11-28] MEDS: NORCO, ANEXSIA 5/325MG TABLET (HYDROcodone/ACETAMINOPHEN) PO PRN ×2 (07:59→20:12)
[2019-11-28] MEDS: CREON-24 CAPSULE PO SCH ×3 (07:59→17:50)
[2019-11-28] MEDS ORDERED: NS 500 ML IV ONE ×2 (08:30→12:00)
[2019-11-28] MEDS ORDERED: HYDROMORPHONE HCL 0.5 MG/ 0.5 ML SYRINGE (J1170 PER 1) IV PRN (08:45)
[2019-11-28] MEDS ORDERED: NS 500 ML IV PRN (09:00)
[2019-11-28] MEDS ORDERED: HYDROmorphone 2 MG TAB PO ONE (09:00)
[2019-11-28 09:43] VITALS: BP 105/74
[2019-11-28] MEDS ORDERED: METOCLOPRAMIDE INJ 10MG/2ML VIAL (J2765) IV ONE (10:00)
[2019-11-28] MEDS ORDERED: FIORICET TAB PO ONE (11:00)
[2019-11-28 11:35] LABS: INR 4.86; PROTHROMBIN TIME 45.7 SECONDS (11.8-14.0)
--- NOTE | 2019-11-28 11:44 | IPN ---
DATE OF SERVICE: 11/27/2019 SUBJECTIVE: Patient was seen and examined at the bedside today morning. She is afebrile. She was given a dose of hydrocortisone IV because of persistent hypotension. Blood pressures are still soft today. She is going to have her hemodialysis today in the afternoon. She reports a mild persistent shortness of breath but it is better today as compared with yesterday. OBJECTIVE: Vital Signs: Temperature is 97.6 degrees Fahrenheit, blood pressure 100/56, pulse is 82, respiratory rate of 18, saturating 99% on room air. Intake and Output: Urine output recorded is 500 mL. Ostomy output is 2.8 liters. Weight in the bed scale is stable at 46.5 kg. PHYSICAL EXAM: General: Patient is awake, alert, oriented times three, laying in bed, in no apparent distress. Head and Neck Exam: Extraocular muscles intact. Pupils equally round and reactive to light. Mucous membranes are moist. Neck is supple. There is no jugular venous distention (JVD). Cardiovascular: S1, S2, regular rate. No edema of the bilateral lower extremities. Respiratory: Chest is clear to auscultation bilaterally. Bilateral equal air entry. No rales or rhonchi. Abdomen: Soft. Positive bowel sounds. Right lower quadrant ileostomy was noted. Musculoskeletal: No clubbing or cyanosis. Pulses are 2+. Central Nervous System (KEYPUNCHER): No focal deficit. Power is 5/5 in all extremities. LAB REVIEW: CBC showed WBC 6.4, hemoglobin is 10, platelets are 262. BMP showed sodium of 133, potassium 4.1, chloride 101, bicarbonate 20, BUN 51, creatinine 8.2, calcium 7.5. MICROBIOLOGY: Cultures are all negative. IMAGING: A repeat chest x-ray was done today, which showed lung george were inflated and clear. CURRENT INPATIENT MEDICATIONS: Patient's medications were all reviewed by myself. He is currently on IV Rocephin. She is supposed to get Decadron tomorrow. She was given one dose of IV hydrocortisone yesterday and she has been started on hydrocortisone 10 mg by mouth twice a day. No other change in the medications today as compared with yesterday. ASSESSMENT AND PLAN: 1. End-stage renal disease. Regular dialysis days are Friday, Friday, Friday. She missed her dialysis yesterday because of hypotension. She will be dialyzed today in the afternoon. No fluid will be removed. 2. Hypotension and lactic acidosis. It is secondary to a combination of persistent high output from the ileostomy, decreased oral intake and possibility of adrenal insufficiency secondary to chronic use of steroids for multiple myeloma. She was given stress dose of hydrocortisone yesterday. She has been started on hydrocortisone 10 mg by mouth twice a day. Patient will be given IV fluids during dialysis as needed. 3. Multiple myeloma in the labs. Patient could not get the chemotherapy done. She is currently on once a week steroid. Rest of the management is as per Hem/Onc as outpatient. 4. 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 Hemoglobin level is acceptable. Patient is being started on Aranesp. MTDD
[2019-11-28] MEDS ORDERED: NS 1,000 ML IV SCH ×2 (13:30→13:45)
[2019-11-28 14:17] LABS: PHOSPHORUS LEVEL 4.7 MG/DL (2.5-4.9)
[2019-11-28] MEDS: WARFARIN SOD 5 MG TAB PO SCH (17:00)
[2019-11-28 22:00] VITALS: BP 82/46
[2019-11-29] VITALS (9 sets, daily range): BP systolic 61–113; BP diastolic 36–89
[2019-11-29] MEDS: VITAMIN D 1,000 INTERNATIONAL UNITS TABLET PO SCH (05:16)
[2019-11-29] MEDS: HYDROCORTISONE 10 MG TAB PO SCH ×2 (05:16→21:28)
[2019-11-29] MEDS: CREON-24 CAPSULE PO SCH ×3 (05:16→17:30)
[2019-11-29] MEDS: (RENVELA) SEVELAMER **CARBONate** 800 MG TAB PO SCH ×3 (05:16→17:30)
[2019-11-29] MEDS: LEVOTHYROXINE 50MCG TABLET (0.05MG) PO SCH (05:16)
[2019-11-29] MEDS: NORCO, ANEXSIA 5/325MG TABLET (HYDROcodone/ACETAMINOPHEN) PO PRN ×3 (05:18→21:28)
[2019-11-29 06:34] LABS: BASO % 0.1 % (0.0-1.0); EOS % 0.1 % (0.0-3.0); HEMATOCRIT 32.9 % (36.0-47.0); HEMOGLOBIN 10.5 g/dl (12.0-15.5); LYMPH # 1.5 10^3/uL (1.5-5.0); LYMPH % 21.9 % (24.0-44.0); MEAN CORPUSCULAR HGB CONC 31.9 g/dl (32.0-36.5); MEAN CORPUSCULAR VOLUME 100.3 fl (80.0-96.0); MONO # 0.6 10^3/uL (0.0-0.8); MONO % 9.1 % (0.0-5.0); NEUTROPHILS # 4.6 10^3/uL (1.5-8.5); NEUTROPHILS % 67.9 % (36.0-66.0); PLATELET COUNT, AUTOMATED 259 10^3/uL (150-450); RED BLOOD COUNT 3.28 10^6/uL (4.00-5.40); WHITE BLOOD COUNT 6.8 10^3/uL (4.0-10.0)
[2019-11-29 06:48] LABS: CALCIUM LEVEL 7.8 MG/DL (8.8-10.2); CREATININE FOR GFR 7.89 MG/DL (0.55-1.30); GLOMERULAR FILTRATION RATE 5.4 (>39); POTASSIUM SERUM 3.8 MEQ/L (3.5-5.1)
[2019-11-29 06:52] LABS: PROTHROMBIN TIME 47.2 SECONDS (11.8-14.0)
[2019-11-29 07:01] LABS: INR 5.06
[2019-11-29] MEDS: WARFARIN SOD 5 MG TAB PO SCH (07:09)
--- NOTE | 2019-11-29 07:18 | REP ---
CT ABDOMEN PELVIS WITHOUT CONTRAST: 11/28/2019. COMPARISON: 02/15/2019 CLINICAL HISTORY: Abdominal pain, dehydration, increased ileostomy output. History of myeloma. Dialysis. Colectomy for Crohn's, remote. Melanoma. FINDINGS: The lung bases are clear without infiltrate, effusion, nodule or mass. Heart not enlarged and no pericardial thickening or effusion. I see no hiatal hernia. Tiny fluid in the stomach. There is no hepatosplenomegaly, focal hepatic mass or intrahepatic biliary dilatation. There is a catheter in the IVC just below the right atrium. This extends all the way to the right femoral vein. The gallbladder shows vicarious excretion of IV contrast and is opacified. No calcified stones identified. Pancreas shows no mass, ductal dilatation or adjacent inflammatory change/adenopathy. No fluid collections. Adrenal glands are normal. The kidneys show profound atrophy. No hydronephrosis. There are a few exophytic cysts, left more than right. No gross solid mass. No hydronephrosis or hydroureter. Diffuse atherosclerotic calcifications in the aorta and iliac vessels without aneurysm. No periaortic, retroperitoneal or intra-abdominal pathologic sized lymphadenopathy. No ascites or focal splenic lesion. There are surgical clips consistent with colectomy and an ileostomy in the right mid abdomen unchanged. Small bowel loops are not abnormally dilated. Fluid filled loops and a few scattered air bubbles within without signs of obstruction or abnormal dilatation. Lung window review of all CT slices abdomen and pelvis shows no perforation or free air. I see no fluid in the peroneal gutters or in the mesentery. No ventral midline or umbilical hernia. The bone windows show kyphoplasty cement at T12 through L2 and have minor superior endplate depressions of those three vertebral bodies as well as L4 but all unchanged. No new compression deformity or destructive lesion. Posterior elements in the lumbar spine grossly intact. The visualized lower ribs without acute finding. Bones are demineralized overall with thin cortex. CT PELVIS: Sacral ala and foramina symmetric and demineralized. Lucencies scattered in the bilateral iliac bones, acetabuli and the inferior pubic ramus, unchanged. The hips show degenerative changes both joints with rim osteophytes in the acetabulum and slight joint space narrowing. No AVN or acute fracture. The bladder is collapsed and I cannot discern mass or wall thickening. Trace contrast seen within it. Extensive spray artifact from the numerous metal clips from colectomy in the presacral region in the pelvis. This is unchanged. Small bowel loops in the pelvis fluid-filled not abnormally dilated. No pelvic free air. No ventral or inguinal hernia nor pathologic inguinal adenopathy. IMPRESSION: 1. Status post colectomy with ileostomy with the ostomy intact in the right mid abdomen and the small bowel loops showing no dilatation. They are fluid-filled with scattered air. 2. No ascites, perforation or free air. No visible abscess. 3. Vicarious contrast excretion into the bile noted along with trace contrast in the bladder. 4. Kyphoplasty cement at T12 through L2 and with superior endplate depressions of those three levels and L4 noted, but unchanged since February 2019. Chronic changes consistent with myeloma. 5. Indwelling catheter via the right femoral vein extending to the IVC. 6. Profound bilateral renal cortical atrophy with cortical cysts. Solid organs in the upper abdomen with other significant finding. Electronically Signed by Mack Barragan MD 11/29/2019 09:02 A
[2019-11-29] MEDS: cefTRIAXone SOD 1 GM in D5W MINI-BAG PLUS 50 ML IV SCH (08:18)
[2019-11-29] MEDS ORDERED: HEPARIN 1,000 UNITS/ML 10ML VIAL (FOR RADIOLOGY& DIALYSIS ONLY)(J1644-10) XX ONE (12:00)
--- NOTE | 2019-11-29 19:18 | IPN ---
DATE: 11/28/2019 This morning patient complained of bilateral hand crampiness which was severe 10/10 pain, no radiation. She also complains of epigastric pain across the abdomen and periumbilical abdominal pain. Has slight increased output through her colostomy bag. Afebrile, no chills overnight. Persistently hypertensive. Currently on hydrocortisone due to possible adrenal insufficiency. Still on IV ceftriaxone for presumed urinary tract infection. Urine culture is pending. Temperature 98.3, pulse 86, respiratory rate 18, blood pressure 78/46, 93% on room air. GENERALLY: Patient is awake, alert, oriented times three. Anicteric sclerae. No jaundice. No use of respiratory accessory muscles. No jugular venous distention (JVD), no thyromegaly. Dry mucous membranes. LUNGS: Diminished, but clear to auscultation. No wheezing, rales, or rhonchi. HEART: S1, S2, sinus rhythm. ABDOMEN: Soft, nontender, nondistended. EXTREMITIES: No cyanosis, clubbing, or pitting edema. White count 7.9, hemoglobin 11, hematocrit 35, platelet count 316, sodium 134, potassium 4, chloride 95, bicarbonate 30, BUN 29, creatinine 6.32, glucose of 97. Two sets of blood cultures negative. Respiratory panel negative. Urine culture is pending. CT angio of the chest: No pulmonary emboli. No infiltrate or effusion. No mass, nodule, or adenopathy. Occlusion of superior vena cava. Right internal jugular (IJ) central venous catheter. Demineralization. Compression deformities L1-L2 with vertebroplasty. ASSESSMENT AND PLAN: This is a 74-year-old female with a history of end-stage renal disease, multiple myeloma diagnosed 2008 on palliative chemotherapy due to recurrence, on chronic prednisone, received radiation, transient ischemic attack (TIA) on chronic warfarin, presents with 2 day history of worsening shortness of breath after dialysis on Friday and feeling fatigued and drained out, saturation of 84% on 2 liters nasal cannula, CT chest shows no pulmonary embolism (PE), effusion, edema, interstitial infiltrate, or consolidation, she had an abnormal urinalysis and was started on IV ceftriaxone, and persistent hypotension. IMPRESSION: 1. Possible adrenal insufficiency with persistent hypotension and patient on chronic prednisone. Currently on hydrocortisone twice a day. IV fluids have been given. Appears to be hypovolemic due to increased output through her colostomy bag. 2. Hypovolemia secondary to increased output through her ostomy bag. Check gastrointestinal (GI) panel. Rule out acute infectious etiology for persistent diarrhea. Continue with IV fluid hydration for now. 3. Urinary tract infection (UTI). On IV ceftriaxone. 4. End-stage renal disease. On maintenance dialysis. Defer to Dr. Mckenzie for dialysis needs. 5. Cramping. Most likely due to electrolyte abnormalities. Check magnesium, potassium, and calcium and optimize. 6. Possible peripheral neuropathy. 7. Poor IV access. Vascular surgery has been consulted. JUANA
--- NOTE | 2019-11-29 21:19 | IPN ---
DATE: 11/28/2019 Yoana is seen and examined this morning at the bedside. She reports weakness. Her blood pressures were soft. She received one liter of intravenous (IV) fluid bolus. She reports very significant output from her right-sided ileostomy drain, reports that nursing staff emptied the bag multiple times over night. She was hemodialyzed yesterday with no fluid removed. Vital signs: Temperature 98.3, pulse 86, respiratory rate 18, blood pressure 105/74, saturating 93% on room air. Intake yesterday was 2 liters, output was 4.7 liters, net negative 2.7 liters. Weight in the bed scale today is 42.5. General: The patient is seen lying in bed, elderly female, appears weak and frail but in no acute distress. The extraocular muscles are intact. Pupils are round and reactive to light. The mucous membranes are moist. The neck is supple. There is no jugular venous distension. There is a Perma-Cath present in the right chest wall. Heart sounds are regular, S1, S2. There is absolutely no edema in the lower extremities or in the dependent area. Lungs are clear to auscultation bilaterally. No rale or rhonchi. Abdomen is soft. There is a right lower quadrant ileostomy. The right thigh shows a central line. Musculoskeletal: There is significant muscle wasting. There is no clubbing or cyanosis. Neurologic: She is oriented times three, interactive, conversational and appropriate. Skin: There is some pallor. Skin is warm. LABS: White count 7.9, hemoglobin 11.4, platelets 316, sodium 134, potassium 4.1, phosphorus 4.7. GI PCR pending. CT abdomen and pelvis pending. INPATIENT MEDICATIONS: She continues on IV ceftriaxone. She received one liter of normal saline this morning. I started her on normal saline at 50 mL an hour. Her pain medication was adjusted by the primary team. She was started on Dilaudid as needed. Remainder of medications are unchanged from prior. PROBLEMS: 1. End-stage renal disease, on hemodialysis. Regular dialysis days are Friday, Friday and Friday. She missed Friday's treatment because of hypotension. She was dialyzed subsequently on Friday for clearance only with no fluid removed. Her electrolytes are acceptable. Perma-Cath is in good use. Next dialysis will likely be on Friday. 2. Anemia secondary to end-stage renal disease/multiple myeloma/chemotherapy. Hemoglobin level is acceptable. She continues on Aranesp with dialysis. 3. Hypotension/lactic acidosis and increased ileostomy output. The patient reports nursing staff had to empty her ostomy bag several times over night and that she has been having increased ostomy output. She is net negative 2.7 liters. She was given 1 liter normal saline bolus. I am putting her on normal saline 50 mL an hour. We are not removing fluid with dialysis. I have also requested a gastrointestinal panel. There is a possibility of adrenal insufficiency secondary to chronic use of steroids for her multiple myeloma, and she was also started on low dose hydrocortisone 10 mg twice daily. I have requested CT of the abdomen and pelvis as well. 4. Secondary hyperparathyroidism. Phosphorus level was checked today and acceptable. No changes are being made. 5. History of thrombosis, on chronic Coumadin. International normalized ratio (INR) is supratherapeutic and Coumadin has been held.
[2019-11-30] VITALS (7 sets, daily range): BP systolic 67–110; BP diastolic 42–58
[2019-11-30 00:06] LABS: EBV AB TO NUCLEAR ANTIGEN <18.0 U/mL (0.0-17.9); EBV VIRAL CAPSID AG IgG 30.5 U/mL (0.0-17.9); EBV VIRAL CAPSID AG IgM <36.0 U/mL (0.0-35.9)
[2019-11-30] MEDS: LEVOTHYROXINE 50MCG TABLET (0.05MG) PO SCH (05:51)
[2019-11-30] MEDS: NORCO, ANEXSIA 5/325MG TABLET (HYDROcodone/ACETAMINOPHEN) PO PRN ×2 (05:52→19:41)
[2019-11-30 06:32] LABS: BASO % 0.4 % (0.0-1.0); EOS # 0.1 10^3/uL (0.0-0.5); EOS % 0.7 % (0.0-3.0); HEMATOCRIT 34.6 % (36.0-47.0); HEMOGLOBIN 11.3 g/dl (12.0-15.5); LYMPH # 1.6 10^3/uL (1.5-5.0); LYMPH % 21.4 % (24.0-44.0); MEAN CORPUSCULAR HEMOGLOBIN 32.8 pg (27.0-33.0); MEAN CORPUSCULAR HGB CONC 32.7 g/dl (32.0-36.5); MEAN CORPUSCULAR VOLUME 100.6 fl (80.0-96.0); MONO # 0.7 10^3/uL (0.0-0.8); MONO % 8.8 % (0.0-5.0); NEUTROPHILS # 5.1 10^3/uL (1.5-8.5); NEUTROPHILS % 67.5 % (36.0-66.0); PLATELET COUNT, AUTOMATED 292 10^3/uL (150-450); RED BLOOD COUNT 3.44 10^6/uL (4.00-5.40); WHITE BLOOD COUNT 7.5 10^3/uL (4.0-10.0)
[2019-11-30 06:49] LABS: INR 4.17; PROTHROMBIN TIME 40.5 SECONDS (11.8-14.0)
[2019-11-30 06:58] LABS: CALCIUM LEVEL 9.7 MG/DL (8.8-10.2); CREATININE FOR GFR 5.47 MG/DL (0.55-1.30); GLOMERULAR FILTRATION RATE 8.2 (>39); POTASSIUM SERUM 3.4 MEQ/L (3.5-5.1)
[2019-11-30] MEDS ORDERED: DICYCLOMINE 10 MG CAP PO PRN (07:45)
[2019-11-30] MEDS ORDERED: POTASSIUM CHLORIDE 10 MEQ SR TABLET PO ONE (08:00)
[2019-11-30] MEDS: CREON-24 CAPSULE PO SCH ×3 (08:04→18:17)
[2019-11-30] MEDS: VITAMIN D 1,000 INTERNATIONAL UNITS TABLET PO SCH (08:04)
[2019-11-30] MEDS: (RENVELA) SEVELAMER **CARBONate** 800 MG TAB PO SCH ×3 (08:05→18:17)
[2019-11-30] MEDS: HYDROCORTISONE 10 MG TAB PO SCH (08:05)
--- NOTE | 2019-11-30 09:09 | IPN ---
DATE OF SERVICE: 11/29/2019 The patient has had decreased output through her colostomy bag. She is continued on IV fluids. No complaints of shortness of breath (SOB), chest pain. She said that she is able to urinate this morning, ambulating well. No abdominal pain, nausea or vomiting, fever or chills. Gastrointestinal (GI) panel grew adenovirus. CT of the abdomen is unremarkable. No abscess formation or colonic wall thickening. She complains of bilateral hand pain on and off, but improved today. She received Dilaudid yesterday, allowed her to sleep, and had significant improvement in the pain. She says the left shoulder hurts more than the right. Per Dr. Jewell this is expected for the next six months due to cancer and recent radiation. Temperature 97.9, pulse 71, respiratory rate 18, blood pressure 82/46, 97% on 1 liter nasal cannula. Generally, patient is awake, alert, oriented times three, answering questions appropriately. Lungs are clear to auscultation. No wheezes, rales or rhonchi. Heart S1, S2, sinus rhythm. No murmurs, rubs or gallops. Abdomen soft, nontender, nondistended. Ileostomy bag with output. Extremities no cyanosis, clubbing or pitting edema. LABORATORY DATA: Imaging studies and microbiology have been reviewed. ASSESSMENT/PLAN: This is a 74-year-old female with a history of multiple myeloma diagnosed in 2008, was in remission but now recurred, undergoing palliative chemotherapy on chronic prednisone. Received radiation. She has a history of end stage renal disease on maintenance dialysis Friday, Friday, and Friday, peripheral neuropathy, Crohn's disease with ileostomy, transient ischemic attack (TIA), three clots on chronic warfarin, presented to the ER due to a history of worsening shortness of breath (SOB) and weakness after dialysis on Friday and feeling fatigued and drained out. She was found to be 84% on 2 liters nasal cannula, admitted for further evaluation. CT chest had no PE, edema, effusion or consolidation. She was found to have abnormal urinalysis, was treated for a UTI. IMPRESSION: 1. Urinary tract infection (UTI) on three days of IV ceftriaxone to be completed today. 2. Adenovirus with increase in colostomy output and persistent hypotension. Patient is on IV fluids, responding well. She has received multiple boluses and currently on increased dose of hydrocortisone for possible adrenal insufficiency. 3. Possible adrenal insufficiency on chronic steroids for multiple myeloma with persistent hypotension due to hypovolemia from increase output through her ileostomy bag. The patient is currently on intravenous fluids. IV ceftriaxone given for UTI. 4. Hypovolemia with subsequent hypotension secondary to increasing output through the ileostomy bag, currently on IV fluids. Mentation is at baseline. The patient has no confusion. 5. End stage renal disease on maintenance hemodialysis managed by Dr. Mckenzie. 6. Poor vascular access with chronic superior vena cava scarring due to multiple attempts for vascular access in the past. Per Dr. Granger will attempt to find access for dialysis. 7. Secondary hyperparathyroidism. Resumed on home medications. 8. History of multiple clots on chronic warfarin. Held due to elevated INR. 9. Supratherapeutic INR. Warfarin held. Goal INR is 2-3 . 10. Hypothyroidism. On Synthroid. 11. Anemia of chronic disease due to multiple myeloma and renal failure. No acute indication for RBC transfusion. 12. History of TIA. Warfarin held due to elevated INR. DISPOSITION: Await clinical improvement. [facility]
[2019-11-30 09:18] LABS: MAGNESIUM LEVEL 2.4 MG/DL (1.8-2.4)
[2019-11-30] MEDS ORDERED: NS 500 ML IV ONE ×2 (09:30→19:00)
[2019-11-30] MEDS ORDERED: NS 1,000 ML IV SCH (09:30)
[2019-11-30] MEDS ORDERED: NS 1,000 ML IV ONE (10:45)
--- NOTE | 2019-11-30 10:54 | IPN ---
DATE OF SERVICE: 11/29/2019 SUBJECTIVE: Yoana was seen and examined this morning walking around the unit and then later at the bedside and in the hemodialysis unit. She reports she felt a little bit stronger today. She continues to have significant output from the ileostomy, 4.4 liters in the past 24 hours. She received intravenous (IV) fluids yesterday. Her GI PCR was positive for adenovirus. She reports her abdominal cramping is subsided. International normalized ratio (INR) remains supratherapeutic. Temperature 97.9, pulse 71, respiratory rate 18, blood pressure 82/46, saturating 97% on 1 liter nasal cannula. Intake yesterday was 1960, stool output was 4400, net negative 2440. Weight in the bed scale today is 43.2 keg. General: The patient is seen walking around the unit and then later lying in bed. Elderly female. Very frail and thin. Is smiling. In no apparent distress. Extraocular muscles are intact. Pupils are equally round and reactive to light. Mucous membranes are moist. Neck is supple. There is no jugular venous distention. Cardiac: S1, S2, regular rate. Absolutely no edema in the legs nor in the dependent areas. There is a PermCath on the right side with a clean and dry dressing. Lungs are clear to auscultation bilaterally. No rales or rhonchus. Abdomen is soft. There are hyperactive bowel sounds. There is a right lower quadrant ileostomy. Musculoskeletal: No clubbing, cyanosis, or edema. There is a central line present in the right thigh. Neurologic: She is oriented times three, interactive, and conversational. Extremities: There is significant muscle wasting. Skin: Normal temperature and turgor. LABORATORIES: White count 6.8, hemoglobin 10.5, platelet 259. Sodium 130, potassium 3.8, bicarbonate 21. GI PCR positive for adenovirus. Urine culture positive for Enterococcus faecalis. INPATIENT MEDICATIONS: She received normal saline overnight. Her hydromorphone was adjusted by the primary team. Her Coumadin was held. The remainder of medications are unchanged from prior. PROBLEMS: 1. End-stage renal disease. On hemodialysis on a Friday, Friday, Friday schedule. She is having significant output from the ileostomy. I have been giving her IV fluids over the past couple days. She will be dialyzed today with no fluid removal. We will give her albumin with dialysis for hemodynamic support, and she will also receive saline with dialysis if needed. 2. Persistent hypotension. It is secondary to combination persistent high output from ileostomy, decreased oral intake, and possible adrenal insufficiency secondary to chronic use of steroids for multiple myeloma. She is on twice-daily hydrocortisone now. She has also been receiving IV fluids, and we will give her albumin with hemodialysis for hemodynamic support. 3. Anemia related to chronic renal failure and multiple myeloma. Hemoglobin is at target, and she continues on Aranesp. 4. High-output ileostomy. GI PCR was positive for adenovirus. She continues on supportive care and IV fluids as needed. 5. Supratherapeutic international normalized ratio. Her Coumadin remains on hold. INR was 5.0. She is not receiving heparin with dialysis.
[2019-11-30] MEDS ORDERED: SODIUM CHLORIDE 0.9% 1000ML IV ONE (11:00)
[2019-11-30] MEDS ORDERED: HYDROCORTISONE 100 MG/2 ML VIAL (J1720 PER 1) IV ONE (11:00)
[2019-11-30] MEDS: NS 1,000 ML IV SCH ×3 (12:15→19:40)
--- NOTE | 2019-11-30 16:48 | IPNPDOC ---
Subjective Date Seen The patient was seen on 11/30/19. Subjective Chief Complaint/HPI Ms. Escobedo is a 74 year old female admitted with UTI, adenovirus and chronic hypotension. Pt is seen laying in bed today. She feels much better now than she did this morning. nursing had reported that pt was hypotensive, asymptomatic with SBP 67. Pt has received a bolus of fluid and now NS at 125mls/hr. Pt also reported that she had muscle cramps in her hands and arms - these resolved very quickly after she started IVF. General: Denies: Chills, Night Sweats, Fatigue, Malaise Constitutional: Denies: Chills, Fever, Night Sweats Eyes: Denies: Pain ENT: Denies: Head Aches Skin: Denies: Rash Pulmonary: Denies: Dyspnea, Cough Cardiovascular: Reports: Orthopnea, Lt Headedness; Denies: Chest Pain, Palpitations, Paroxysmal Noc. Dyspnea, Edema Gastrointestinal: Denies: Nausea, Vomiting, Abdominal Pain, Diarrhea, Constipation Genitourinary: Denies: Dysuria, Retention Hematologic: Reports: Bleeding Excessively; Denies: Bruising Musculoskeletal: Denies: Neck Pain, Back Pain, Joint Pain, Muscle Pain, Spasms Neurological: Denies: Weakness, Numbness, Change in speech, Confusion Psych: Reports: Mood Normal; Denies: Depression, Memory Issues Objective Physical Examination General Exam: Positive: Alert, Cooperative, No Acute Distress Eye Exam: Positive: Conjunctiva & lids normal; Negative: Sclera icteric ENT Exam: Positive: Atraumatic, Mucous membr. moist/pink, Pharynx Normal Neck Exam: Positive: Supple; Negative: JVD, thyromegaly Chest Exam: Positive: Clear to auscultation, Normal air movement Heart Exam: Positive: Rate Normal, Regular Rhythm, Normal S1, Normal S2, Other (Distant HS); Negative: Gallops, Rubs Telemetry: Positive: No significant arrhythmia Abdomen Exam: Positive: Normal bowel sounds, Soft Extremity Exam: Positive: Normal pulses; Negative: Clubbing, Cyanosis, Edema Skin Exam: Positive: Nl turgor and temperature Neuro Exam: Positive: Normal Speech Psych Exam: Positive: Mood NL Assessment /Plan Assessment This is a 74-year-old female with a history of multiple myeloma diagnosed in 2008, was in remission but now recurred, undergoing palliative chemotherapy on chronic prednisone. Received radiation. She has a history of end stage renal disease on maintenance dialysis Friday, Friday, and Friday, peripheral neuropathy, Crohn's disease with ileostomy, transient ischemic attack (TIA), three clots on chronic warfarin, presented to the ER due to a history of worsening shortness of breath (SOB) and weakness after dialysis on Friday and feeling fatigued and drained out. She was found to be 84% on 2 liters nasal cannula, admitted for further evaluation. CT chest had no PE, edema, effusion or consolidation. She was found to have abnormal urinalysis, was treated for a UTI. Urinary tract infection - treated to completion with Rocephin - suggest follow-up UA x 3d post abx completion Adenovirus with increase in colostomy output - Patient is on IV fluids, responding well - She has received multiple boluses and currently on increased dose of hydrocortisone for possible adrenal insufficiency - possibly not absorbing steroid RE: persistent hypotension Chronic Hypotension - asymptomatic - responded well to IVF bolus - continue NS resuscitation Hyperkalemia - pt muscle cramps resolved with IVF - re-check BMP @5p Lactic Acidosis - 2/2 dehydration - resolving with IV fluids - re-check q4 hrs until resolved Possible adrenal insufficiency - chronic steroids for multiple myeloma with persistent hypotension due to hypovolemia from increase output through her ileostomy bag - continue IV fluid hydration 4. Hypovolemia with subsequent hypotension secondary to increasing output through the ileostomy bag - currently on IV fluids - reportedly at baseline mentation End stage renal disease on HD - continued management per Dr. Mckenzie Poor vascular access with chronic superior vena cava scarring due to multiple attempts for vascular access in the past - Per Dr. Granger will attempt to find access for dialysis. Secondary hyperparathyroidism - continue home medications History of multiple clots on chronic warfarin - Warfarin on hold as INR supratherapeutic - recheck INR daily and resume when appropriate Anemia of chronic disease - no indication for transfusion - continue serial CBCs History of TIA - on chronic Warfarin; on hold as INR supratherapeutic - no vitamin K, allow to taper off Plan/VTE VTE Prophylaxis Ordered?: Yes (Warfarin ) VS, I&O, 24H, Fishbone Vital Signs/I&O Vital Signs Date Time Temp Pulse Resp B/P (MAP) Pulse Ox O2 Delivery O2 Flow Rate FiO2 11/30/19 14:30 83/50 (61) 11/30/19 14:00 97.0 78 20 96 Nasal Cannula 2.0 I&O- Last 24 Hours up to 6 AM 11/30/19 06:00 Intake Total 1990.0 ml Output Total 3600 ml Balance -1610.0 ml Laboratory Data 24H LABS Laboratory Tests 2 11/30/19 06:18: Immature Granulocyte % (Auto) 1.2, Neutrophils (%) (Auto) 67.5H, Lymphocytes (%) (Auto) 21.4L, Monocytes (%) (Auto) 8.8H, Eosinophils (%) (Auto) 0.7, Basophils (%) (Auto) 0.4, Neutrophils # (Auto) 5.1, Lymphocytes # (Auto) 1.6, Monocytes # (Auto) 0.7, Eosinophils # (Auto) 0.1, Basophils # (Auto) 0.0, Nucleated Red Blood Cells % (auto) 0.0, Prothrombin Time 40.5H, Prothromb Time International Ratio 4.17, Anion Gap 13, Glomerular Filtration Rate 8.2L, Calcium Level 9.7#, Magnesium Level 2.4 11/30/19 09:42: Lactic Acid Level 6.3*H 11/30/19 13:46: Lactic Acid Level 3.9*H CBC/BMP Laboratory Tests 11/30/19 06:18 Microbiology Microbiology 11/30/19 Blood Culture, Received Pending 11/28/19 Gastrointestinal Tract Panel (PCR) - Final, Complete Adenovirus F 40/41 11/26/19 Urine Culture - Final, Complete Enterococcus Faecalis 11/25/19 Blood Culture - Final, Complete NO GROWTH AFTER 5 DAYS 11/25/19 Respiratory Virus Panel (PCR) (AIDEE) - Final, Complete 11/25/19 Blood Culture - Final, Complete NO GROWTH AFTER 5 DAYS Attending Note Attending Note I have reviewed the documentation and assessed the patient independently. I have made necessary revisions as needed. I agree with the findings, assessment and plan stated above. - This morning patient reported that she was experiencing arm cramping - Patient was hypotensive and found to have a lactic acid of 6.9 - Started on IV fluid hydration - Lactic acid has improved - Will adjust hydrocortisone to IV route - Will transfer to PCU for continue monitoring EDWIN GARCIA PA-C Nov 30, 2019 16:48 KINDRA PALACIO MD Nov 30, 2019 17:04
--- NOTE | 2019-11-30 18:08 | IPN ---
DATE: 11/30/2019 SUBJECTIVE: I was called in regards to the patient's persistent hypotension this morning and I spoke to the primary team regarding bolus of intravenous (IV) fluids, standing IV fluids, lactic acid, blood cultures, and switching her oral steroids to IV. Yoana complains of chills, cramping arm pain and dyspnea with mild exertion. Her blood pressures were as low as 67/42 this morning. After 1.5 liters of normal saline, her blood pressures improved to 95/52. Lactic acid was elevated at 6.3 and repeat lactic acid level is pending. She was dialyzed yesterday with no fluid removed. She remains afebrile and continues to have marked output from her ostomy. Temperature 97.6, pulse 71, respiratory rate 15-20, blood pressure 95/52, saturating 97% on room air. Intake yesterday was 1970, ostomy output was 3.5 liters, net negative 1600. Weight in the bed scale today is 43.3. GENERAL: Patient is seen lying in bed, elderly and very frail female in no apparent distress, not having any chills or rigors. Extraocular muscles are intact. Ears, nose and throat are unremarkable. There is a tunneled catheter present in the right chest wall. Heart sounds are regular, S1-S2. There is absolutely no edema in the legs nor in the dependent area. Lungs show symmetric air entry. No crackle or rhonchus. Abdomen is soft and nontender. There are hyperactive bowel sounds. There is an ostomy on the right with significant liquid output. Extremities show ligated old arteriovenous access in the left arm and muscle wasting in the legs that is prominent, and no edema, clubbing or cyanosis. NEUROLOGIC: She is oriented times three, at baseline mentation. No focal deficits. Skin is warm and dry to touch. LABORATORY DATA: White count 7.5, hemoglobin 11.3, platelets 292. Sodium 132, potassium 3.4, bicarbonate 22 lactic acid 6.3, magnesium 2.4. Blood cultures are pending. INPATIENT MEDICATIONS: She received normal saline bolus and is on normal saline at 150 mL an hour. Her hydrocortisone was switched to IV formulation 50 mg every 8 hours. She received a dose of potassium chloride 20 mEq by mouth times one. Remainder of medications are unchanged from prior. PROBLEMS: 1. End-stage renal disease. Dialyzed on a Friday, Friday, Friday schedule. She is having high output stool volume from the ileostomy. She has been receiving IV fluids since the weekend. We do not remove any fluid with hemodialysis. She has been receiving albumin with dialysis for hemodynamic support. If her blood pressures remain soft, she may need continuous renal replacement therapy (CRRT), although I would like to avoid this, if possible. 2. Persistent and worsening hypotension, probably related to the high output ileostomy. She had about almost 4 liters out in the past 24 hours and 4.5 liters the day before. There is also possible adrenal insufficiency secondary to use of chronic steroids for multiple myeloma. We have switched her oral hydrocortisone to stress dose IV formulation now. She received normal saline bolus and is on normal saline at 150 mL an hour. Lactic acid was elevated at 6.3. Gastrointestinal (GI) polymerase chain reaction (PCR) was positive for adenovirus. Blood cultures are sent and pending. Repeat lactic acid is pending. She has been transferred to progressive care unit (PCU). 3. Anemia related to chronic renal failure and multiple myeloma. Hemoglobin is at target. She continues on Aranesp. 4. High output ileostomy. GI PCR positive for adenovirus. Continues with supportive care with IV fluids and now also receiving stress dose steroids. 5. Supratherapeutic INR. Coumadin remains on hold and INR is slowly improving. She is not receiving heparin with dialysis. 6. Hypokalemia. It is due to electrolyte losses through the high output ostomy and she has received oral supplementation.
[2019-11-30 18:45] LABS: CALCIUM LEVEL 8.9 MG/DL (8.8-10.2); CREATININE FOR GFR 6.28 MG/DL (0.55-1.30); POTASSIUM SERUM 3.5 MEQ/L (3.5-5.1)
[2019-11-30] MEDS: HYDROCORTISONE 100 MG/2 ML VIAL (J1720 PER 1) IV SCH (19:41)
[2019-12-01] VITALS: BP 107/57
[2019-12-01 04:00] VITALS: BP 115/56
[2019-12-01] MEDS: HYDROCORTISONE 100 MG/2 ML VIAL (J1720 PER 1) IV SCH ×3 (04:11→20:22)
[2019-12-01] MEDS: LEVOTHYROXINE 50MCG TABLET (0.05MG) PO SCH (05:48)
[2019-12-01] MEDS: (RENVELA) SEVELAMER **CARBONate** 800 MG TAB PO SCH ×3 (05:48→18:03)
[2019-12-01] MEDS: CREON-24 CAPSULE PO SCH ×3 (05:48→18:03)
[2019-12-01] MEDS: VITAMIN D 1,000 INTERNATIONAL UNITS TABLET PO SCH (05:49)
[2019-12-01 06:04] LABS: BASO % 0.2 % (0.0-1.0); HEMATOCRIT 29.9 % (36.0-47.0); LYMPH # 0.7 10^3/uL (1.5-5.0); MEAN CORPUSCULAR HEMOGLOBIN 32.3 pg (27.0-33.0); MEAN CORPUSCULAR HGB CONC 30.8 g/dl (32.0-36.5); MEAN CORPUSCULAR VOLUME 104.9 fl (80.0-96.0); MONO # 0.3 10^3/uL (0.0-0.8); MONO % 5.8 % (0.0-5.0); NEUTROPHILS # 4.8 10^3/uL (1.5-8.5); NEUTROPHILS % 81.1 % (36.0-66.0); PLATELET COUNT, AUTOMATED 219 10^3/uL (150-450); RED BLOOD COUNT 2.85 10^6/uL (4.00-5.40); WHITE BLOOD COUNT 5.9 10^3/uL (4.0-10.0)
[2019-12-01 06:09] LABS: INR 3.35; PROTHROMBIN TIME 33.9 SECONDS (11.8-14.0)
[2019-12-01 06:11] LABS: CALCIUM LEVEL 8.1 MG/DL (8.8-10.2); CREATININE FOR GFR 6.4 MG/DL (0.55-1.30); GLOMERULAR FILTRATION RATE 6.8 (>39); POTASSIUM SERUM 3.4 MEQ/L (3.5-5.1)
[2019-12-01 06:13] LABS: HEMOGLOBIN 9.2 g/dl (12.0-15.5)
[2019-12-01 08:00] VITALS: BP 91/54
[2019-12-01] MEDS: NS 1,000 ML IV SCH ×2 (10:27→19:56)
[2019-12-01 12:00] VITALS: BP 131/62
--- NOTE | 2019-12-01 12:43 | IPNPDOC ---
Text Note Date of Service The patient was seen on 12/01/19. NOTE Chief Complaint/HPI Ms. Escobedo is a 74 year old female admitted with UTI, adenovirus and chronic hypotension. Pt is seen sitting up in bed today in PCU; she had been transferr ed d/t hypotension and lactic acidosis yesterday. Her general appearance is largely improved vs yesterday and pt reported she feels much better and that switching to IV 'medicine' (i.e. hydrocortisone) really helped. Pt reported that yesterday morning she had felt like giving up; today she 'feels just great!' Drainage from ileostomy has reduced significantly overnight. Pt stated she would feel ready to go home tomorrow or after. She has HH 3 days per week who take her for walks with her zimmerframe and her daughter visits on the other days. She believes that will be all the help she needs on d/c. Per nursing: pt has cleared OT. Physical Examination General Exam: Positive: Alert, Cooperative, No Acute Distress Eye Exam: Positive: Conjunctiva & lids normal; Negative: Sclera icteric ENT Exam: Positive: Atraumatic, Mucous membr. moist/pink, Pharynx Normal Neck Exam: Positive: Supple; Negative: JVD, thyromegaly Chest Exam: Positive: Clear to auscultation, Normal air movement Heart Exam: Positive: Rate Normal, Regular Rhythm, Normal S1, Normal S2, Other (Distant HS); Negative: Gallops, Rubs Telemetry: Positive: No significant arrhythmia Abdomen Exam: Positive: Normal bowel sounds, Soft Extremity Exam: Positive: Normal pulses; Negative: Clubbing, Cyanosis, Edema Skin Exam: Positive: Nl turgor and temperature Neuro Exam: Positive: Normal Speech Psych Exam: Positive: Mood NL Assessment This is a 74-year-old female with a history of multiple myeloma diagnosed in 2008, was in remission but now recurred, undergoing palliative chemotherapy on chronic prednisone. Received radiation. She has a history of end stage renal disease on maintenance dialysis Friday, Friday, and Friday, peripheral neuropathy, Crohn's disease with ileostomy, transient ischemic attack (TIA), three clots on chronic warfarin, presented to the ER due to a history of worsening shortness of breath (SOB) and weakness after dialysis on Friday and feeling fatigued and drained out. She was found to be 84% on 2 liters nasal cannula, admitted for further evaluation. CT chest had no PE, edema, effusion or consolidation. She was found to have abnormal urinalysis, was treated for a UTI. Urinary tract infection - treated to completion with Rocephin - suggest follow-up UA x 3d post abx completion Adenovirus with increase in colostomy output - Patient is on IV fluids, responding well - She has received multiple boluses and currently on IV hydrocortisone for possible adrenal insufficiency Chronic Hypotension - improved - responded well to IVF bolus - continue NS resuscitation Hyperkalemia - resolved with fluid hydration Lactic Acidosis - resolved with fluid hydration Possible adrenal insufficiency - chronic steroids for multiple myeloma with persistent hypotension due to hypovolemia from increase output through her ileostomy bag - continue IV fluid hydration - now on IV hydrocortisone - ostomy output decreased significantly 4. Hypovolemia with subsequent hypotension secondary to increasing output through the ileostomy bag - improving with IV fluids - reportedly at baseline mentation End stage renal disease on HD - continued management per Dr. Mckenzie - HD today Poor vascular access with chronic superior vena cava scarring due to multiple attempts for vascular access in the past - Per Dr. Granger will attempt to find access for dialysis. Secondary hyperparathyroidism - continue home medications History of multiple clots on chronic warfarin - Warfarin on hold as INR supratherapeutic - recheck INR daily and resume when appropriate Anemia of chronic disease - no indication for transfusion - continue serial CBCs History of TIA - on chronic Warfarin; on hold as INR supratherapeutic - no vitamin K, allow to taper off Dispo: per nephrology recs VS,Roxy, I+O VS, Roxy, I+O Laboratory Tests 11/30/19 17:49 12/01/19 05:43 Vital Signs Date Time Temp Pulse Resp B/P (MAP) Pulse Ox O2 Delivery O2 Flow Rate FiO2 12/01/19 08:00 97.5 95 18 91/54 (66) 94 Room Air 12/01/19 00:00 0.0 I&O- Last 24 Hours up to 6 AM 12/01/19 06:00 Intake Total 2745 ml Output Total 4735 ml Balance -1990 ml Attending Note Attending Note I have reviewed the documentation and assessed the patient independently. I have made necessary revisions as needed. I agree with the findings, assessment and plan stated above. - Patient reported that she is doing significantly better this morning; she attests that the output from her ostomy has improved - Physical was unrevealing - no signs of fluid overload; is currently hemodynamically stable - Lab work has revealed normalization of her lactic acid - Will continue with IV fluid hydration - Continue with PT / OT EDWIN GARCIA PA-C Dec 01, 2019 12:43 KINDRA PALACIO MD Dec 01, 2019 16:29
[2019-12-01] MEDS ORDERED: HEPARIN 1,000 UNITS/ML 10ML VIAL (FOR RADIOLOGY& DIALYSIS ONLY)(J1644-10) XX ONE (14:15)
[2019-12-01 17:00] VITALS: BP 111/56
--- NOTE | 2019-12-01 18:57 | IPN ---
DATE: 12/01/2019 SUBJECTIVE: Yoana is seen and examined this morning at the bedside. She reports she has gotten out of bed and walked around the unit. She feels stronger today. She reports ever since she has been on intravenous (IV) steroids her left shoulder pain has also resolved. Her blood pressures are improved. She has received aggressive IV fluids to keep up with her high-output ileostomy. Her lactic acidosis has resolved. She is due for hemodialysis this afternoon with no fluid removal planned. Vital signs: Temperature 97.3, pulse 73, respiratory rate 18, blood pressure 131/62, saturating 100% on room air. Review of intake and output yesterday shows intake of 3.1 liters and ostomy output a 4.7 liters. Net negative 1.7 liters. Weight in the bed scale today is 44.3 kg. General: The patient is seen lying in bed. Frail elderly female in no apparent distress. Extraocular muscles are intact. Ears, nose, and throat are unremarkable. There is a tunneled dialysis catheter present in the right chest wall. Heart sounds are regular, S1, S2. There is absolutely no edema in the legs nor in the dependent area. Lungs show symmetric air entry. Clear to auscultation. No crackle or rale. Abdomen is soft and nontender. There are bowel sounds. There is an ostomy on the right, which seems to have less output today. Extremities show ligated old arteriovenous access in the left arm and muscle wasting in the legs that is prominent. There is no edema, clubbing, or cyanosis. Neurologic: She is oriented times three at baseline mentation. No focal deficit. Skin is warm and dry to touch. LABORATORY DATA: Sodium 135, potassium 3.4, bicarbonate 19. Lactic acid improved from 6.3, down to 1.9. Hemoglobin 9.2. Blood cultures are pending. INPATIENT MEDICATIONS: Reviewed by myself. Normal saline is being cut down to 50 mL an hour. She continues on IV steroids and was started on Bentyl as needed. Remainder of medications is unchanged from prior study. PROBLEMS: 1. End-stage renal disease, on hemodialysis on a Friday, Friday, Friday schedule. The patient never has fluid removed with dialysis because of her significant ostomy losses that are chronic; however, over the past 4 days she has been having very high-output stool volume from the ostomy and has been receiving IV fluid. She will be dialyzed this afternoon again without any fluid removal. Her lactic acidosis has resolved. Her electrolytes are fairly acceptable. There is mild metabolic acidosis, likely secondary to bicarbonate losses from the ostomy. 2. Hypotension, likely related to high-output ostomy. She has had 4 liters out each day for the past 3 days, and there is also likelihood of adrenal insufficiency secondary to chronic steroids for multiple myeloma. She is presently receiving stress-dosed steroids. Her blood pressures have improved. I am cutting her normal saline down to 50 mL an hour. Her lactic acidosis has resolved. Continue with supportive care for Adenovirus. Blood cultures are still pending. 3. Anemia related to chronic renal failure and multiple myeloma. She continues on Aranesp. There is no need for packed red blood cells (PRBC) transfusion at present. 4. Supratherapeutic INR. Her Coumadin remains on hold. Her INR is improving. She is not receiving heparin with dialysis. 5. Hypokalemia. It is due to electrolyte losses through the high-output ostomy, and she is going to receive an elevated potassium dialysate bath.
[2019-12-01 20:00] VITALS: BP 90/53
[2019-12-02] VITALS: BP 90/42
[2019-12-02 04:00] VITALS: BP 113/58
[2019-12-02] MEDS: LEVOTHYROXINE 50MCG TABLET (0.05MG) PO SCH (04:22)
[2019-12-02] MEDS: HYDROCORTISONE 100 MG/2 ML VIAL (J1720 PER 1) IV SCH ×2 (04:22→15:17)
[2019-12-02 04:44] LABS: BASO % 0.2 % (0.0-1.0); HEMATOCRIT 26.1 % (36.0-47.0); HEMOGLOBIN 8.3 g/dl (12.0-15.5); MEAN CORPUSCULAR HEMOGLOBIN 32.3 pg (27.0-33.0); MEAN CORPUSCULAR HGB CONC 31.8 g/dl (32.0-36.5); MEAN CORPUSCULAR VOLUME 101.6 fl (80.0-96.0); MONO # 0.4 10^3/uL (0.0-0.8); MONO % 6.6 % (0.0-5.0); NEUTROPHILS # 4.9 10^3/uL (1.5-8.5); NEUTROPHILS % 76.5 % (36.0-66.0); PLATELET COUNT, AUTOMATED 186 10^3/uL (150-450); RED BLOOD COUNT 2.57 10^6/uL (4.00-5.40); WHITE BLOOD COUNT 6.4 10^3/uL (4.0-10.0)
[2019-12-02 04:56] LABS: INR 2.62; PROTHROMBIN TIME 27.9 SECONDS (11.8-14.0)
[2019-12-02 05:39] LABS: CALCIUM LEVEL 8.3 MG/DL (8.8-10.2); CREATININE FOR GFR 4.31 MG/DL (0.55-1.30); GLOMERULAR FILTRATION RATE 10.7 (>39); POTASSIUM SERUM 3.7 MEQ/L (3.5-5.1)
[2019-12-02 08:00] VITALS: BP 110/60
[2019-12-02] MEDS: CREON-24 CAPSULE PO SCH ×3 (08:00→17:24)
[2019-12-02] MEDS: (RENVELA) SEVELAMER **CARBONate** 800 MG TAB PO SCH ×3 (08:00→17:24)
[2019-12-02] MEDS ORDERED: LOPERAMIDE 2 MG CAPLET PO PRN (08:15)
[2019-12-02] MEDS: VITAMIN D 1,000 INTERNATIONAL UNITS TABLET PO SCH (08:20)
[2019-12-02 10:59] LABS: PERCENT SATURATION 59.2 % (13.2-45.0)
[2019-12-02 12:00] VITALS: BP 106/70
--- NOTE | 2019-12-02 12:19 | IPNPDOC ---
Text Note Date of Service The patient was seen on 12/02/19. NOTE Chief Complaint/HPI Ms. Escobedo is a 74 year old female admitted with UTI, adenovirus and chronic hypotension. Pt is seen sitting up in bed today in PCU; she had been transferre d d/t hypotension and lactic acidosis yesterday. Her general appearance is largely improved vs yesterday and pt reported she feels much better and that switching to IV 'medicine' (i.e. hydrocortisone) really helped. Pt reported that yesterday morning she had felt like giving up; today she 'feels just great!' Drainage from ileostomy has reduced significantly overnight. Pt stated she would feel ready to go home tomorrow or after. She has HH 3 days per week who take her for walks with her zimmerframe and her daughter visits on the other days. She believes that will be all the help she needs on d/c. Per nursing: pt has cleared OT. Physical Examination General Exam: Positive: Alert, Cooperative, No Acute Distress Eye Exam: Positive: Conjunctiva & lids normal; Negative: Sclera icteric ENT Exam: Positive: Atraumatic, Mucous membr. moist/pink, Pharynx Normal Neck Exam: Positive: Supple; Negative: JVD, thyromegaly Chest Exam: Positive: Clear to auscultation, Normal air movement Heart Exam: Positive: Rate Normal, Regular Rhythm, Normal S1, Normal S2, Other (Distant HS); Negative: Gallops, Rubs Telemetry: Positive: No significant arrhythmia Abdomen Exam: Positive: Normal bowel sounds, Soft Extremity Exam: Positive: Normal pulses; Negative: Clubbing, Cyanosis, Edema Skin Exam: Positive: Nl turgor and temperature Neuro Exam: Positive: Normal Speech Psych Exam: Positive: Mood NL Assessment This is a 74-year-old female with a history of multiple myeloma diagnosed in 2008, was in remission but now recurred, undergoing palliative chemotherapy on chronic prednisone. Received radiation. She has a history of end stage renal disease on maintenance dialysis Friday, Friday, and Friday, peripheral neuropathy, Crohn's disease with ileostomy, transient ischemic attack (TIA), three clots on chronic warfarin, presented to the ER due to a history of worsening shortness of breath (SOB) and weakness after dialysis on Friday and feeling fatigued and drained out. She was found to be 84% on 2 liters nasal cannula, admitted for further evaluation. CT chest had no PE, edema, effusion or consolidation. She was found to have abnormal urinalysis, was treated for a UTI. Adenovirus with increase in colostomy output - Patient is on IV fluids, responding well - Continued supportive care Chronic Hypotension - likely 2/2 high ostomy output, possible adrenal insufficiency and viral infection - now improved - responded well to IVF boluses and IV hydrocortisone - steroid dose adjusted from q8hr to q12hr Electrolyte abnormalities - continued management per Dr. Mckenzie Possible adrenal insufficiency - chronic steroids for multiple myeloma with persistent hypotension due to hypovolemia from increase output through her ileostomy bag - IV fluid at 50MLS/HR - IV hydrocortisone from 8hr to q12hr - ostomy output decreased significantly past 24hrs - Loperamide started RE: diarrhea 4. Hypovolemia with subsequent hypotension secondary to increasing output through the ileostomy bag - improving with IV fluids; IVF reduced to 50MLS/HR - reportedly at baseline mentation End stage renal disease on HD - continued management per Dr. Mckenzie Poor vascular access with chronic superior vena cava scarring due to multiple attempts for vascular access in the past - Per Dr. Granger will attempt to find access for dialysis. Secondary hyperparathyroidism - continue home medications History of multiple clots on chronic warfarin - Warfarin on hold as INR supratherapeutic - recheck INR daily and resume when appropriate Anemia of chronic disease - no indication for transfusion - continue serial CBCs History of TIA - on chronic Warfarin; on hold as INR supratherapeutic - no vitamin K, allow to taper off Urinary tract infection - treated to completion with Rocephin - suggest follow-up UA x 3d post abx completion Dispo: per nephrology recs VS,Roxy, I+O VS, Roxy, I+O Laboratory Tests 12/02/19 04:25 Vital Signs Date Time Temp Pulse Resp B/P (MAP) Pulse Ox O2 Delivery O2 Flow Rate FiO2 12/02/19 08:00 97.2 66 18 110/60 (77) 100 Room Air 12/01/19 00:00 0.0 I&O- Last 24 Hours up to 6 AM 12/02/19 06:00 Intake Total 2500 ml Output Total 2875 ml Balance -375 ml Attending Note Attending Note I have reviewed the documentation and assessed the patient independently. I have made necessary revisions as needed. I agree with the findings, assessment and plan stated above. EDWIN GARCIA PA-C Dec 02, 2019 12:19 KINDRA PALACIO MD Dec 03, 2019 13:06
[2019-12-02] MEDS: NS 1,000 ML IV SCH (15:17)
[2019-12-02 16:00] VITALS: BP 110/62
--- NOTE | 2019-12-02 17:53 | IPN ---
DATE: 12/02/2019 SUBJECTIVE: Yoana is seen and examined this morning at the bedside. She reports she is feeling better. Her ostomy output is now pasty and no longer liquid. Her IV steroids frequency was dropped to every 12 hours. Her international normalized ratio (INR) is therapeutic today. Her hemoglobin has drifted down to 8.3. She was dialyzed yesterday without any fluid removal and without any issues. Her blood pressures remain satisfactory. Temperature 97.2, pulse 66, respiratory rate 18, blood pressure 110/60, saturating 100% on room air. Review of intake and output yesterday shows ostomy output of 2.4 liters and intake of 2.5 liters. Weight in the bed scale today is 45.8 kg. GENERAL: The patient is seen awake, alert, oriented, in no apparent distress, frail female, somewhat pale-appearing. Extraocular muscles are intact. Ears, nose and throat are unremarkable. There is a tunneled hemodialysis catheter present in the right chest wall. Heart sounds are regular, S1, S2. There is absolutely no edema in the legs nor in the dependent area. Lungs show symmetric air entry, clear to auscultation. No crackle or rale. Abdomen is soft and nontender. There are bowel sounds. The ostomy on the right has pasty stool now. Extremities show ligated old arteriovenous access in the left arm and muscle wasting that is prominent in the legs. There is no edema, clubbing or cyanosis. NEUROLOGIC: She is oriented times three, at baseline mentation. No focal deficit. Skin is warm and dry to touch. LABORATORY DATA: White count 6.4, hemoglobin 8.3, platelets 186. Sodium 138, potassium 3.7, transferrin saturation of 60%. INPATIENT MEDICATIONS: Her hydrocortisone was decreased to 50 mg IV every 12 hours. She continues on normal saline at 50 mL an hour. Her remainder of medications are unchanged from prior. PROBLEMS: 1. End-stage renal disease, on hemodialysis on a Friday, Friday, Friday schedule. She will be dialyzed again tomorrow. She never has fluid removed with dialysis because of her ostomy-related fluid losses. I would plan to transfuse blood with her hemodialysis treatment tomorrow if her hemoglobin remains less than 9. 2. Hypotension, likely related to high output ostomy. Gastrointestinal (GI) polymerase chain reaction (PCR) was positive for Adenovirus. Now, her ostomy output is finally starting to decrease. She only had 2.5 liters out in the past 24 hours as compared to around four liters daily the past few days. Her stress dose steroids are being decreased in frequency. I would continue normal saline at 50 mL an hour for now. Her blood pressures are nicely improved. The lactic acidosis has resolved. 3. Anemia related to chronic renal failure and multiple myeloma. The patient usually gets symptomatic when her hemoglobin drops to less than 9. I would likely transfuse packed red blood cells during her dialysis treatment tomorrow. She continues on Aranesp. Her iron panel shows no iron deficiency. 4. History of deep vein thrombosis (DVT). Her international normalized ratio (INR) is therapeutic today.
[2019-12-02 20:00] VITALS: BP 110/58
[2019-12-03] VITALS (8 sets, daily range): BP systolic 103–134; BP diastolic 55–63
[2019-12-03] MEDS: HYDROCORTISONE 100 MG/2 ML VIAL (J1720 PER 1) IV SCH (03:45)
[2019-12-03 04:05] LABS: BASO % 0.3 % (0.0-1.0); EOS % 0.4 % (0.0-3.0); HEMATOCRIT 25.9 % (36.0-47.0); HEMOGLOBIN 8.1 g/dl (12.0-15.5); LYMPH % 12.9 % (24.0-44.0); MEAN CORPUSCULAR HEMOGLOBIN 33.1 pg (27.0-33.0); MEAN CORPUSCULAR HGB CONC 31.3 g/dl (32.0-36.5); MEAN CORPUSCULAR VOLUME 105.7 fl (80.0-96.0); MONO # 0.6 10^3/uL (0.0-0.8); MONO % 7.2 % (0.0-5.0); NEUTROPHILS # 5.9 10^3/uL (1.5-8.5); PLATELET COUNT, AUTOMATED 182 10^3/uL (150-450); RED BLOOD COUNT 2.45 10^6/uL (4.00-5.40); WHITE BLOOD COUNT 7.8 10^3/uL (4.0-10.0)
[2019-12-03 04:22] LABS: INR 1.32; PROTHROMBIN TIME 16.1 SECONDS (11.8-14.0)
[2019-12-03 04:30] LABS: CALCIUM LEVEL 7.7 MG/DL (8.8-10.2); CREATININE FOR GFR 5.17 MG/DL (0.55-1.30); GLOMERULAR FILTRATION RATE 8.7 (>39); POTASSIUM SERUM 3.9 MEQ/L (3.5-5.1)
[2019-12-03] MEDS: LEVOTHYROXINE 50MCG TABLET (0.05MG) PO SCH (05:45)
[2019-12-03] MEDS: CREON-24 CAPSULE PO SCH ×3 (07:34→18:02)
[2019-12-03] MEDS: VITAMIN D 1,000 INTERNATIONAL UNITS TABLET PO SCH (07:35)
[2019-12-03] MEDS: (RENVELA) SEVELAMER **CARBONate** 800 MG TAB PO SCH ×3 (07:35→18:02)
[2019-12-03] MEDS ORDERED: HEPARIN 1,000 UNITS/ML 10ML VIAL (FOR RADIOLOGY& DIALYSIS ONLY)(J1644-10) XX ONE (13:00)
--- NOTE | 2019-12-03 13:52 | IPNPDOC ---
Text Note Date of Service The patient was seen on 12/03/19. NOTE NOTE Chief Complaint/HPI Ms. Escobedo is a 74 year old female admitted with UTI, adenovirus and chronic hypotension. Pt is seen resting in HD this morning. She reported she continues to do well, just a little tired this morning. She is receiving 1 unit PRBCs with dialysis. She is happy the output from her ostomy is less each day; she reported she is urinating now after several days of oliguria. Per nursing: pt has cleared OT. Physical Examination General Exam: Positive: Sleepy, NAD Eye Exam: Positive: Conjunctiva & lids normal; Negative: Sclera icteric ENT Exam: Positive: Atraumatic, Mucous membr. moist/pink, Pharynx Normal Neck Exam: Positive: Supple; Negative: JVD, thyromegaly Chest Exam: Positive: Clear to auscultation, Normal air movement Heart Exam: Positive: Rate Normal, Regular Rhythm, Normal S1, Normal S2, Other (Distant HS); Negative: Gallops, Rubs Telemetry: Positive: No significant arrhythmia Abdomen Exam: Positive: Normal bowel sounds, Soft Extremity Exam: Positive: Normal pulses; Negative: Clubbing, Cyanosis, Edema Skin Exam: Positive: Nl turgor and temperature Neuro Exam: Positive: Normal Speech Psych Exam: Positive: Mood NL Assessment This is a 74-year-old female with a history of multiple myeloma diagnosed in , was in remission but now recurred, undergoing palliative chemotherapy on chronic prednisone. Received radiation. She has a history of end stage renal disease on maintenance dialysis Friday, Friday, and Friday, peripheral neuropathy, Crohn's disease with ileostomy, transient ischemic attack (TIA), three clots on chronic warfarin, presented to the ER due to a history of worsening shortness of breath (SOB) and weakness after dialysis on Friday and feeling fatigued and drained out. She was found to be 84% on 2 liters nasal cannula, admitted for further evaluation. CT chest had no PE, edema, effusion or consolidation. She was found to have abnormal urinalysis, was treated for a UTI. Adenovirus with increase in colostomy output - improving. output 1500mL last 24hrs from as high as 4750mL - Continued supportive care Chronic Hypotension - likely 2/2 high ostomy output, possible adrenal insufficiency and viral infection - improving - responded well to IVF boluses and IV hydrocortisone - discussed with nephrology - wean off hydrocortisone, now 10mg BID PO Electrolyte abnormalities - continued management per Dr. Mckenzie Possible adrenal insufficiency - chronic steroids for multiple myeloma with persistent hypotension due to hypovolemia from increase output through her ileostomy bag - now PO. IVF d/c - PO Hydrocortisone, monitor pt BP response - ostomy output decreased significantly past 24hrs - Loperamide prn started RE: diarrhea Hypovolemia with subsequent hypotension secondary to increasing output through the ileostomy bag - resolved: ostomy output significantly reduced, now urinating - reportedly at baseline mentation End stage renal disease on HD - continued management per Dr. Mckenzie Poor vascular access with chronic superior vena cava scarring due to multiple attempts for vascular access in the past - Per Dr. Granger will attempt to find access for dialysis. Secondary hyperparathyroidism - continue home medications History of multiple clots on chronic warfarin 7.5mg qday - resume PO Warfarin @ 5mg qday as pt recently supratherapeutic - recheck INR daily and adjust dose as appropriate Anemia of chronic disease - no indication for transfusion - continue serial CBCs History of TIA - resume warfarin as above Severe malnutrition - complicating care - suggest optimization per outpt nutrition counseling Urinary tract infection - treated to completion with Rocephin - suggest follow-up UA x 3d post abx completion Dispo: Discussed with Dr. Mckenzie changes noted above. If tolerating PO next 24hrs, may d/c tomorrow. VS,Fishbone, I+O VS, Fishbone, I+O Laboratory Tests 12/03/19 03:50 Vital Signs Date Time Temp Pulse Resp B/P (MAP) Pulse Ox O2 Delivery O2 Flow Rate FiO2 12/03/19 12:20 97.4 65 16 119/63 Room Air 12/03/19 08:00 98 12/01/19 00:00 0.0 I&O- Last 24 Hours up to 6 AM 12/03/19 06:00 Intake Total 2400 ml Output Total 2450 ml Balance -50 ml Attending Note Attending Note I have reviewed the documentation and assessed the patient independently. I have made necessary revisions as needed. I agree with the findings, assessment and p carlos stated above. - Patient was seen and examined at the bedside. She had indicated that the output from her ostomy has improved significantly - She remains hemodynamically stable and afebrile and physical does not reveal any abdominal tenderness - Will discontinue IV fluid hydration and continue with loperamide to help with her ostomy output - Patient is scheduled to receive 1 unit PRBC transfusion with dialysis today - She has cleared physical therapy - Patient is anticipated for discharge tomorrow morning EDWIN GARCIA PA-C Dec 03, 2019 13:52 KINDRA PALACIO MD Dec 03, 2019 16:08
[2019-12-03] MEDS ORDERED: WARFARIN SOD 5 MG TAB PO SCH (17:00)
--- NOTE | 2019-12-03 17:40 | IPN ---
DATE: 12/03/2019 ANGELICA Lees is seen in the hemodialysis unit receiving a treatment. Her INR is subtherapeutic today. Her hemoglobin down trended to 8.1. She is receiving 1 unit with dialysis. She reports she feels very well. Denies any shortness of breath. Reports improving appetite and decreasing ostomy output and inquires regarding discharge plans. Temperature 97.4, pulse 65, respiratory rate 16, blood pressure 119/63, saturating 98% on room air. Intake yesterday was 2.1 liters. Ostomy output was 1500. Urine output was 300, net positive 300, weight in the bed scale today is 47.7 kg. General: The patient is seen in the dialysis unit receiving her treatment awake, alert, oriented, interactive, conversational. No apparent distress. Extraocular muscles are intact. There is conjunctival pallor. Ears, nose and throat are unremarkable. Tunneled hemodialysis catheter in the right chest wall is in use. Heart sounds are regular, S1, S2. There is absolutely no edema in the legs nor in the dependent area. Lungs show symmetric air entry, clear to auscultation. No crackle or rale. Abdomen is soft and nontender. There is a patent ostomy on the right. Extremities show ligated old arteriovenous access in the left arm and muscle wasting in the legs. There is no edema, clubbing or cyanosis. Skin: Normal turgor and temperature. Neurologic: Oriented times three, interactive. At baseline mentation. LABS: Hemoglobin 8.1, INR 1.3, bicarbonate 18, T sat 60%. INPATIENT MEDICATIONS Her normal saline is discontinued. Her IV hydrocortisone was discontinued and switched to hydrocortisone 10 mg by mouth every 12 hourly. Coumadin was resumed. Remainder medications are unchanged from prior. PROBLEMS: 1. End-stage renal disease on hemodialysis on a Friday, Friday, Friday schedule. She is dialyzed today without any fluid removal. She received 1 unit packed red blood cell with her dialysis treatment. Her electrolytes and volume status are acceptable. Her IV fluids have been discontinued. 2. Hypotension, likely related to high output ostomy which is now improving nicely. GI PCR was positive for odenovirus. She only had 1.5 liters ostomy output in the past 24 hours. She is starting to make urine again. Her stress dose steroids have been weaned down and switched now to oral formulation. Her blood pressures are acceptable. Lactic acidosis has resolved and her blood pressures have stabilized. I would like to see how she does on oral steroid for 24 hours prior to discharge. 3. Anemia related to chronic renal failure and multiple myeloma. She gets symptomatic when hemoglobin drops to less than 9, hemoglobin is down to 8.1 today. We are transfusing 1 unit packed red blood cell with her treatment today. She continues on Aranesp. Her T sat was elevated at 60%. 4. History of deep venous thrombosis (DVT). Her INR is subtherapeutic. Primary team has resumed her on Coumadin. 5. Disposition: Patient will probably be suitable for discharge over the weekend. Would like to see how she does on oral steroids for 24 hours.
[2019-12-04] VITALS: BP 105/58
[2019-12-04 04:00] VITALS: BP 110/58
[2019-12-04] MEDS ORDERED: HYDROCORTISONE 10 MG TAB PO SCH (06:00)
[2019-12-04 07:31] LABS: BASO % 0.4 % (0.0-1.0); EOS # 0.1 10^3/uL (0.0-0.5); EOS % 0.9 % (0.0-3.0); HEMATOCRIT 32.6 % (36.0-47.0); HEMOGLOBIN 10.4 g/dl (12.0-15.5); LYMPH % 14.4 % (24.0-44.0); MEAN CORPUSCULAR HEMOGLOBIN 31.7 pg (27.0-33.0); MEAN CORPUSCULAR HGB CONC 31.9 g/dl (32.0-36.5); MEAN CORPUSCULAR VOLUME 99.4 fl (80.0-96.0); MONO # 0.6 10^3/uL (0.0-0.8); MONO % 8.3 % (0.0-5.0); NEUTROPHILS % 73.5 % (36.0-66.0); PLATELET COUNT, AUTOMATED 150 10^3/uL (150-450); RED BLOOD COUNT 3.28 10^6/uL (4.00-5.40); WHITE BLOOD COUNT 6.7 10^3/uL (4.0-10.0)
[2019-12-04] MEDS: LEVOTHYROXINE 50MCG TABLET (0.05MG) PO SCH (07:33)
[2019-12-04] MEDS: (RENVELA) SEVELAMER **CARBONate** 800 MG TAB PO SCH (07:33)
[2019-12-04] MEDS: CREON-24 CAPSULE PO SCH (07:33)
[2019-12-04 07:42] LABS: INR 1.13; PROTHROMBIN TIME 14.2 SECONDS (11.8-14.0)
[2019-12-04 07:54] LABS: CALCIUM LEVEL 8.2 MG/DL (8.8-10.2); CREATININE FOR GFR 3.52 MG/DL (0.55-1.30); GLOMERULAR FILTRATION RATE 13.6 (>39); MAGNESIUM LEVEL 1.6 MG/DL (1.8-2.4); POTASSIUM SERUM 3.3 MEQ/L (3.5-5.1)
[2019-12-04 08:00] VITALS: BP 113/64
[2019-12-04] MEDS: VITAMIN D 1,000 INTERNATIONAL UNITS TABLET PO SCH (09:00)
[2019-12-04] MEDS ORDERED: ANTI2TAB16 PO (09:53)
[2019-12-04] MEDS ORDERED: POTASSIUM CHLORIDE 10 MEQ SR TABLET PO ONE (11:00)
[2019-12-04] MEDS ORDERED: HYDR-4513 PO (11:02)
--- NOTE | 2019-12-04 11:05 | DS.PDOC ---
Discharge Summary General Date of Admission Nov 25, 2019 at 17:08 Date of Discharge 12/04/2019 Discharge Summary PROCEDURES PERFORMED DURING STAY: [None]. ADMITTING DIAGNOSES / DISCHARGE DIAGNOSES: Adenovirus with increase in colostomy output Chronic Hypotension Electrolyte abnormalities Possible adrenal insufficiency Hypovolemia with subsequent hypotension secondary to increasing output through the ileostomy bag End stage renal disease on HD Poor vascular access with chronic superior vena cava scarring due to multiple attempts for vascular access in the past Secondary hyperparathyroidism History of multiple clots on chronic warfarin Anemia of chronic disease History of TIA Severe malnutrition Urinary tract infection DVT prophylaxis COMPLICATIONS/CHIEF COMPLAINT: Shortness of breath HISTORY OF PRESENT ILLNESS: This is a 74-year-old female with a history of multiple myeloma diagnosed in 2008, was in remission but now recurred, undergoing palliative chemotherapy on chronic prednisone. Received radiation. She has a history of end stage renal disease on maintenance dialysis Friday, Friday, and Friday, peripheral neuropathy, Crohn's disease with ileostomy, transient ischemic attack (TIA), three clots on chronic warfarin, presented to the ER due to a history of worsening shortness of breath (SOB) and weakness after dialysis on Friday and feeling fatigued and drained out. She was found to be 84% on 2 liters nasal cannula, admitted for further evaluation. CT chest had no PE, edema, effusion or consolidation. She was found to have abnormal urinalysis and was treated for a UTI and supportive care for diarrhea. HOSPITAL COURSE: Adenovirus with increase in colostomy output - Ileostomy output improved significantly; tolerating oral intake - c/w Loperamide PRN Chronic Hypotension - likely 2/2 high ostomy output, possible adrenal insufficiency and viral infection - improving - responded well to IVF boluses and IV hydrocortisone - discussed with nephrology - wean off hydrocortisone, now 10mg BID PO Electrolyte abnormalities - Hypokalemia; will supplement Possible adrenal insufficiency - chronic steroids for multiple myeloma with persistent hypotension due to hypovolemia from increase output through her ileostomy bag - now PO. IVF d/c - c/w PO Hydrocortisone; return to home dose - will have outpatient follow up with PCP s/p Hypovolemia with subsequent hypotension secondary to increasing output through the ileostomy s/p bag - Improved output - c/w Loperamide PRN End stage renal disease on HD - continued management per Dr. Mckenzie Poor vascular access with chronic superior vena cava scarring due to multiple attempts for vascular access in the past - Follows with Dr. Granger; will have outpatient follow up Secondary hyperparathyroidism - continue home medications History of multiple clots on chronic warfarin 7.5mg qday - INR subtherapeutic; s/p supra-therapeutic - c/w Coumadin 7.5 mg po daily as outpatient - Provided script for INR check on 12/06/2019 Anemia of chronic disease - no indication for transfusion - continue serial CBCs History of TIA - c/w Warfarin - Provided script for INR check on 12/06/2019 Severe malnutrition - complicating care - suggest optimization per outpt nutrition counseling s/p Urinary tract infection - s/p Rocephin DVT prophylaxis - c/w Heparin DISCHARGE MEDICATIONS: Please see below. ALLERGIES: Please see below. PHYSICAL EXAMINATION ON DISCHARGE: Vitals (See below) General: Lying in bed, no acute distress, comfortable, AAOx3 HEENT: NC, AT CVS: +S1S2 Lungs: Fair air entry b/l, no appreciable wheezing / rhonchi / rales Abdomen: Soft, ND, NT, +Ileostomy Extremities: - Edema, - Calf tenderness LABORATORY DATA: Please see below. IMAGING: CTA 11/25: There are no pulmonary emboli. There are no infiltrates or effusions. There are no masses, nodules or adenopathy. Reflux and collateralization of the intravenous contrast suggestive of stenosis and possibly occlusion of the superior vena cava. There is a right IJ central venous catheter. Deminerali zation. Compression deformities of the D 12, L1 and L to vertebral bodies with vertebroplasties. CT abdomen / pelvis 11/28: 1. Status post colectomy with ileostomy with the ostomy intact in the right mid abdomen and the small bowel loops showing no dilatation. They are fluid-filled with scattered air. 2. No ascites, perforation or free air. No visible abscess. 3. Vicarious contrast excretion into the bile noted along with trace contrast in the bladder. 4. Kyphoplasty cement at T12 through L2 and with superior endplate depressions of those three levels and L4 noted, but unchanged since February 2019. Chronic changes consistent with myeloma. 5. Indwelling catheter via the right femoral vein extending to the IVC. 6. Profound bilateral renal cortical atrophy with cortical cysts. Solid organs in the upper abdomen with other significant finding. ACTIVITY: [As tolerated]. DISCHARGE PLAN: Follow up with Dr. Breonna Herrera, Dr. Mckenzie and Dr. Granger within 7 days Remain compliant with treatment plan and medications Return to the ER if you experience any problems DISPOSITION: Home DISCHARGE CONDITION: [Stable]. TIME SPENT ON DISCHARGE: 35 Minutes Vital Signs/I&Os Vital Signs Date Time Temp Pulse Resp B/P (MAP) Pulse Ox O2 Delivery O2 Flow Rate FiO2 12/04/19 08:00 98.1 65 18 113/64 (80) 98 Room Air 12/01/19 00:00 0.0 I&O- Last 24 Hours up to 6 AM 12/04/19 06:00 Intake Total 880 ml Output Total 1550 ml Balance -670 ml Laboratory Data Labs 24H Laboratory Tests 2 12/04/19 07:05: Immature Granulocyte % (Auto) 2.5, Neutrophils (%) (Auto) 73.5H, Lymphocytes (%) (Auto) 14.4L, Monocytes (%) (Auto) 8.3H, Eosinophils (%) (Auto) 0.9, Basophils (%) (Auto) 0.4, Neutrophils # (Auto) 5.0, Lymphocytes # (Auto) 1.0L, Monocytes # (Auto) 0.6, Eosinophils # (Auto) 0.1, Basophils # (Auto) 0.0, Nucleated Red Blood Cells % (auto) 1.5H, Prothrombin Time 14.2H, Prothromb Time International Ratio 1.13, Anion Gap 8, Glomerular Filtration Rate 13.6L, Calcium Level 8.2L, Magnesium Level 1.6L CBC/BMP Laboratory Tests 12/04/19 07:05 Microbiology Microbiology 11/30/19 Blood Culture - Preliminary, Resulted No Growth after 72 hours. All specime... 11/28/19 Gastrointestinal Tract Panel (PCR) - Final, Complete Adenovirus F 40/41 11/26/19 Urine Culture - Final, Complete Enterococcus Faecalis 11/25/19 Blood Culture - Final, Complete NO GROWTH AFTER 5 DAYS 11/25/19 Respiratory Virus Panel (PCR) (AIDEE) - Final, Complete 11/25/19 Blood Culture - Final, Complete NO GROWTH AFTER 5 DAYS Discharge Medications Scheduled Cholecalciferol (Vitamin D3) (Vitamin D3) 2,000 Unit Tablet, 2,000 UNIT PO DAILY, (Reported) Cyclosporine (Restasis) 0.05% Droperette, 1 DROP OU BID, (Reported) Dexamethasone (Dexamethasone) 4 Mg Tab, 12 MG PO ASDIRECTED TAKES DAYS 1,8,15,22 - LAST DOSE WAS DAY 1 OF CYCLE Diphenhydramine HCl (Benadryl) 25 Mg Capsule, 25 MG PO 3XW, (Reported) TAKE PRIOR TO DIALYSIS ON ,, Ergocalciferol (Vitamin D2) (Vitamin D2) 50,000 Units Cap, 50,000 UNITS PO QWEEK, (Reported) FRIDAYS Levothyroxine Sodium (Levoxyl) 50 Mcg Tablet, 50 MCG PO DAILY, (Reported) Lipase/Protease/Amylase (Creon Dr 36,000 Units Capsule) 1 Each Capsule.dr, 2 CAP PO WM, (Reported) Lipase/Protease/Amylase (Creon Dr 36,000 Units Capsule) 1 Each Capsule.dr, 1 CAP PO ASDIRECTED, (Reported) WITH SNACKS Robert Lee-3 Fatty Acids/Fish Oil (Fish Oil 1,000 mg Capsule) 1 Each Capsule, 1,000 MG PO DAILY, (Reported) Sevelamer Carbonate (Renvela) 800 Mg Tablet, 800 MG PO WM, (Reported) Warfarin Sodium (Coumadin) 7.5 Mg Tablet, 5 MG PO QPM, (Reported) NEXT LABS TO BE DRAWN ON 11/29/19 Scheduled PRN Hydrocodone/Acetaminophen (Hydrocodone-Acetamin 5-325 mg) 1 Each Tablet, 1 TAB PO Q6H PRN for PAIN, (Reported) Loperamide HCl (Anti-Diarrheal) 2 Mg Tablet, 2 MG PO ASDIRECTED PRN for DIARRHEA Ondansetron HCl (Ondansetron HCl) 8 Mg Tablet, 8 MG PO Q6H PRN for NAUSEA OR VOMITING TAKE ONE TABLET EVERY 6 HOURS NEEDED FOR NAUSEA. Allergies Coded Allergies: vancomycin (Verified Allergy, Intermediate, RASH/ITCHING, 03/26/19) KINDRA PALACIO MD Dec 04, 2019 11:05
== END 2019-12-04 11:58 | disposition home or self-care (01) | DRG 189 ==
LOC: M ED 07:50 → M ED INP 17:08 → ENRESERVTM 23:19 → ENRESERVDT 23:19 → M PCU 23:50 → M MS5PR 11-27 12:33 → M PCU 11-30 11:11
PROVIDERS: ADMIT General Practice; ATTEND Internal Medicine
PROC: 5A1D70Z Performance of Urinary Filtration, Intermittent, Less than 6 Hours Per Day (ICD-10-PCS; principal; 2019-11-27)
PROC: 30233N1 Transfusion of Nonautologous Red Blood Cells into Peripheral Vein, Percutaneous Approach (ICD-10-PCS; 2019-12-03)
DX: J96.21 Acute and chronic respiratory failure with hypoxia (principal); N18.6 End stage renal disease; E43 Unspecified severe protein-calorie malnutrition; C90.02 Multiple myeloma in relapse; N25.81 Secondary hyperparathyroidism of renal origin; B02.29 Other postherpetic nervous system involvement; N39.0 Urinary tract infection, site not specified; E87.2 Acidosis; E27.3 Drug-induced adrenocortical insufficiency; B97.0 Adenovirus as the cause of diseases classified elsewhere; G62.9 Polyneuropathy, unspecified; D64.81 Anemia due to antineoplastic chemotherapy; I95.89 Other hypotension; B95.2 Enterococcus as the cause of diseases classified elsewhere; D63.0 Anemia in neoplastic disease; D63.1 Anemia in chronic kidney disease; E03.9 Hypothyroidism, unspecified; Z90.49 Acquired absence of other specified parts of digestive tract; Z86.73 Personal history of transient ischemic attack (TIA), and cerebral infarction without residual deficits; Z79.01 Long term (current) use of anticoagulants; Z99.81 Dependence on supplemental oxygen; Z95.828 Presence of other vascular implants and grafts; Z95.820 Peripheral vascular angioplasty status with implants and grafts; Z98.84 Bariatric surgery status; Z99.2 Dependence on renal dialysis; Z93.2 Ileostomy status; Z87.891 Personal history of nicotine dependence; Z79.899 Other long term (current) drug therapy; Z86.718 Personal history of other venous thrombosis and embolism; Z88.1 Allergy status to other antibiotic agents; Z79.52 Long term (current) use of systemic steroids

== ENCOUNTER → 2019-12-08 | Outpatient (CLI) | payer MEDICARE, OTHER ==
[~2019-12-08] MED LIST changes: +ANTI2TAB16 PO; +HYDR-4513 PO; +VITA50005 PO
[2019-12-08 12:57] LABS: INR 1.61; PROTHROMBIN TIME 18.9 SECONDS (11.8-14.0)
== END ==
LOC: M PLALAB 09:36
PROVIDERS: ATTEND Family Medicine
DX: Z79.01 Long term (current) use of anticoagulants (principal)

== ENCOUNTER → 2019-12-13 | Outpatient (CLI) | payer MEDICARE, OTHER ==
--- NOTE | 2019-12-13 10:13 | REP ---
Clinical: Pain. Technique: Internal rotation, external rotation, and Y view of the left shoulder. Findings: Age-related osteopenia and arthritic changes include cortical irregularity and subtle spurring at the acromioclavicular joint. The subacromial space is within normal limits. There is blunting to the calcified glenoid rim. No periarticular calcifications or loose bodies identified. Axillary stent graft noted. Impression: Age-related osteopenia and mild arthritic changes. Electronically Signed by Celestino López MD 12/13/2019 10:05 A
== END ==
LOC: M RAD 09:20
PROVIDERS: ATTEND Internal Medicine Medical Oncology
DX: C90.00 Multiple myeloma not having achieved remission (principal)

== ENCOUNTER → 2019-12-15 | Outpatient (CLI) | payer MEDICARE, OTHER ==
[2019-12-15 13:12] LABS: INR 1.5; PROTHROMBIN TIME 17.8 SECONDS (11.8-14.0)
== END ==
LOC: M PLALAB 09:37
PROVIDERS: ATTEND Family Medicine
DX: Z79.01 Long term (current) use of anticoagulants (principal)

== ENCOUNTER 2019-12-21 13:17 | Inpatient (IN) | payer MEDICARE, OTHER ==
[~2019-12-21] VITALS: Ht 160 cm; Wt 47.8 kg
[2019-12-21 14:26] LABS: BASO % 0.1 % (0.0-1.0); EOS % 0.3 % (0.0-3.0); HEMATOCRIT 42.6 % (36.0-47.0); LYMPH # 0.7 10^3/uL (1.5-5.0); MEAN CORPUSCULAR HGB CONC 32.9 g/dl (32.0-36.5); MEAN CORPUSCULAR VOLUME 103.4 fl (80.0-96.0); MONO # 0.5 10^3/uL (0.0-0.8); MONO % 6.9 % (0.0-5.0); NEUTROPHILS # 6.5 10^3/uL (1.5-8.5); NEUTROPHILS % 83.3 % (36.0-66.0); PLATELET COUNT, AUTOMATED 207 10^3/uL (150-450); RED BLOOD COUNT 4.12 10^6/uL (4.00-5.40); WHITE BLOOD COUNT 7.8 10^3/uL (4.0-10.0)
[2019-12-21 14:54] LABS: ALBUMIN 3.7 GM/DL (3.2-5.2); BILIRUBIN,DIRECT 0.3 MG/DL (0.0-0.2); BILIRUBIN,TOTAL 1.3 MG/DL (0.2-1.0); CALCIUM LEVEL 8.4 MG/DL (8.8-10.2); CREATININE FOR GFR 5.88 MG/DL (0.55-1.30); GLOMERULAR FILTRATION RATE 7.5 (>39); POTASSIUM SERUM 3.7 MEQ/L (3.5-5.1); TOTAL PROTEIN 6.9 GM/DL (6.4-8.2)
[2019-12-21] MEDS ORDERED: NS 500 ML IV ONE (15:30)
[2019-12-21] MEDS ORDERED: LINEZOLID 600 MG in IV 1 EA IV ONE (15:30)
[2019-12-21] MEDS ORDERED: WARF-23 PO ×2 (17:12)
[2019-12-21] MEDS ORDERED: VITA1CHW7 PO (17:12)
[2019-12-21] MEDS ORDERED: PERCOCET 5MG/325MG TAB PO ONE (18:00)
[2019-12-21] MEDS ORDERED: PIPERACILLIN/TAZOBACTAM SOD 3.375 GM in D5W MINI-BAG PLUS 50 ML IV SCH (21:00)
[2019-12-21] MEDS ORDERED: NS 1,000 ML IV ONE (21:15)
[2019-12-21] MEDS ORDERED: NORCO, ANEXSIA 5/325MG TABLET (HYDROcodone/ACETAMINOPHEN) PO PRN (21:15)
[2019-12-21 22:04] LABS: INR 3.03; PROTHROMBIN TIME 31.3 SECONDS (11.8-14.0)
[2019-12-21] MEDS: PIPERACILLIN/TAZOBACTAM SOD 2.25 GM in D5W MINI-BAG PLUS 50 ML IV SCH (22:07)
--- NOTE | 2019-12-21 22:23 | HPE ---
DATE OF ADMISSION: 12/21/2019 CHIEF COMPLAINT: Right thigh pain, swelling, redness, and "hard to walk" because of the soreness. 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 Patient changed it last night and put Neosporin around the entry site, with significant pain described as soreness, 9/10, worse when she moves it and when she ambulates with some relief after taking one hydrocodone last night from August 2019 prescription of hydrocodone. Patient presents for further evaluation. Was found to have cellulitis and possible abscess formation due to Gresham catheter placement. According to the patient, this was being used for chemotherapy and was placed by Dr. Brush, interventional radiology in August 2019. Patient is due to have another chemotherapy on . She is followed by Dr. Granger, who would like to finish up with her chemotherapy prior to putting a permanent access for her dialysis. Patient also complains of pain in her tailbone, describes it as being sore, unable to pull herself up from sitting in bed and standing up. Otherwise, she denies any radicular symptoms, denies any paresthesias down the leg or any weakness bilateral lower extremities, urine or bowel incontinence. In the emergency room (ER) she was found to be hypotensive, pressure of 91/52, down to 78/51, status post one liter of normal saline. Was given Zyvox 600 mg intravenously. Patient's blood pressure came up to 105 systolic at the time of admission. 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 PAST SURGICAL HISTORY: AV fistula with removal due to clotting and bleeding requiring ligation, appendectomy, basal cell carcinoma removal, right arm melanoma resection from her extremity, vertebroplasty of the lumbar spine, AV fistula, Permacath, colectomy, and a right thigh Gresham catheter placement by Dr. Brush. ALLERGIES: VANCOMYCIN - red man syndrome. HOME MEDICATIONS: - dexamethasone 12 mg as directed every Friday - hydrocodone/acetaminophen one tablet every 6 hours as needed - Synthroid 50 mcg daily - Zofran 8 mg every 6 hours as needed - sevelamer 100 mg with meals - warfarin 7.5 mg tablet, 5 mg tablet alternatively, managed by her primary care physician - vitamin D 2000 units daily - Restasis one drop both eyes twice a day - Creon one capsule as directed, two capsules with meals - omega 3 fish oil 1 gram daily SOCIAL HISTORY: Denies recreational drug use, alcohol. Lives at home. Quit smoking in the . FAMILY HISTORY: Noncontributory due to age. REVIEW OF SYSTEMS: 12 point system otherwise negative. Per history of present illness (HPI) for positive findings. PHYSICAL EXAMINATION: Temperature 97.7, pulse 74, respiratory rate 17, blood pressure 105/50 at the bedside, in the ER presented with pressure of 77/44, 95% on room air. Generally: Patient is cachectic appearing, older than her stated age, no pallor, no icterus, no jaundice. Awake, alert oriented, answering questions appropriately. Tongue is midline. Neck is supple, full range of motion. No cervical lymphadenopathy or thyromegaly. No use of respiratory accessory muscles, able to speak in full sentences. No conversational dyspnea. No jugular venous distention (JVD). Lungs: Clear to auscultation bilaterally. Air entry is equal. Heart: S1, S2, sinus rhythm. No murmurs, rubs, or gallops. Abdomen: Soft, nontender, nondistended. Positive bowel sounds. No rebound, guarding. Colectomy ileostomy noted. Extremities: No cyanosis, clubbing, or pitting edema. Right medial thigh has a Gresham catheter with significant erythema, redness, no fluctuance. No vertebral tenderness in the lumbosacral spine. White count 7.8, hemoglobin 14, hematocrit 42, platelet count 207, 83% neutrophils, sodium 135, potassium 3.7, chloride 92, bicarbonate 31, BUN 52, creatinine 5.88, glucose 81, lactic acid 4.4, repeat lactic acid 1.8, calcium 8.4, total bilirubin 1.3, direct bilirubin 0.3, AST 20, ALT 28, alkaline phosphatase 123, total protein 6.9, albumin 3.7. Microbiology: Blood cultures, right leg wound culture pending. ASSESSMENT AND PLAN: 74-year-old female with history of multiple myeloma on chemotherapy, end-stage renal disease on maintenance dialysis presents to the emergency room with 2 day history of redness, soreness, and swelling of the right thigh at the Gresham catheter site. Patient was found to have underlying cellulitis most likely secondary to line infection. IMPRESSION: 1. Right medial thigh cellulitis secondary to Gresham catheter placement placed by Dr. Brush August 2019. Patient had been given intravenous Zyvox to be dosed renally by pharmacy. Due to patient complaints of some purulence patient was also given gram-negative coverage, Zosyn, which is renally dosed. Dr. Brush is unavailable. Morning Attending physician to consult vascular surgery in the morning by the morning attending regarding discontinuation of the Gresham catheter which is being used for chemotherapy. 2. Multiple myeloma. Currently on chemotherapy managed by Dr. Jessy Saab via the right medial thigh Gresham catheter placed by Dr. Brush August 2019. This will need to be discontinued due to cellulitis and possible abscess formation. Wound cultures have been sent, as well as blood cultures. Currently on intravenous antibiotics. Gresham catheter to be removed by vascular surgery or general surgery in the morning. 3. End-stage renal disease on maintenance dialysis. Nephrology has been consulted for dialysis needs. 4. History of Crohn's disease status post colectomy with ileostomy. No acute issues. 5. History of transient ischemic attack (TIA) and clots. On chronic warfarin. We will need to hold the patient's warfarin if new line is placed. 6. Deep venous thrombosis (DVT) prophylaxis. On chronic warfarin. MTDD
[2019-12-21 22:31] LABS: APPEARANCE, URINE CLOUDY (CLEAR); BACTERIA, URINE AUTO NEGATIVE (NEGATIVE); BILIRUBIN, URINE AUTO NEGATIVE (NEGATIVE); BLOOD, URINE BLOOD 1+ (NEGATIVE); COLOR, URINE YELLOW (YELLOW); GLUCOSE, URINE (UA) AUTO NEGATIVE (NEGATIVE); KETONE, URINE AUTO NEGATIVE (NEGATIVE); LEUKOCYTE ESTERASE, URINE AUTO 3+ (NEGATIVE); MUCUS, URINE SMALL (NEGATIVE); NITRITE, URINE AUTO NEGATIVE (NEGATIVE); PROTEIN, URINE AUTO 2+ mg/dL (NEGATIVE); RBC, URINE AUTO 8 /HPF (0-3); SPECIFIC GRAVITY URINE AUTO 1.013 (1.002-1.035); SQUAMOUS EPITHELIAL CELL UR AU 15 /HPF (0-6); TRANSITIONAL EPITHELIAL AUTO 5 /HPF; UROBILINOGEN, URINE AUTO 0.2 mg/dL (0.0-2.0); WBC, URINE AUTO 144 /HPF (0-3)
[2019-12-21 23:10] VITALS: BP 98/46
[2019-12-21] MEDS ORDERED: WARFARIN SOD 7.5 MG TAB PO ONE (23:30)
--- NOTE | 2019-12-21 23:37 | REPVR ---
PROCEDURE INFORMATION: Exam: US Right Non-Vascular Joint or Other Extremity Structure, Limited Lower Extremity Exam date and time: 12/21/2019 11:09 PM Age: 74 years old Clinical indication: Cellulitis; Upper leg; Right; Prior surgery; Surgery date: 1-6 months; Surgery type: Gresham catheter placed in aug 2019; Additional info: Right thigh cellulitis R/O abscess TECHNIQUE: Imaging protocol: Right US Non-Vascular Joint or Other Extremity Structure. Limited exam of the lower extremity. COMPARISON: US EXTREMITY NON VASCUL LIMITED 10/08/2019 2:39 PM FINDINGS: Soft tissues: Slight subcutaneous edema is noted about the area. Vasculature: There is a catheter noted within a superficial vein of the right anterior thigh. No drainable fluid collection is noted in the surrounding soft tissues. IMPRESSION: Catheter noted within the superficial vein of the anterior right thigh with slight subcutaneous edema. No drainable fluid collection is seen. Electronically signed by: Michael Garcia On 12/21/2019 23:36:44 PM
[2019-12-21] MEDS: NORCO, ANEXSIA 5/325MG TABLET (HYDROcodone/ACETAMINOPHEN) PO PRN (23:51)
[2019-12-22] MEDS: PIPERACILLIN/TAZOBACTAM SOD 2.25 GM in D5W MINI-BAG PLUS 50 ML IV SCH ×2 (04:13→13:31)
[2019-12-22 05:59] LABS: BASO % 0.2 % (0.0-1.0); EOS % 0.9 % (0.0-3.0); HEMATOCRIT 36.3 % (36.0-47.0); LYMPH # 0.4 10^3/uL (1.5-5.0); LYMPH % 9.7 % (24.0-44.0); MEAN CORPUSCULAR HEMOGLOBIN 33.8 pg (27.0-33.0); MEAN CORPUSCULAR HGB CONC 32.5 g/dl (32.0-36.5); MONO # 0.3 10^3/uL (0.0-0.8); MONO % 7.2 % (0.0-5.0); NEUTROPHILS # 3.5 10^3/uL (1.5-8.5); NEUTROPHILS % 81.5 % (36.0-66.0); PLATELET COUNT, AUTOMATED 150 10^3/uL (150-450); RED BLOOD COUNT 3.49 10^6/uL (4.00-5.40); WHITE BLOOD COUNT 4.3 10^3/uL (4.0-10.0)
[2019-12-22 06:00] VITALS: BP 101/55
[2019-12-22 06:04] LABS: HEMOGLOBIN 11.8 g/dl (12.0-15.5); INR 3.12; PROTHROMBIN TIME 32.1 SECONDS (11.8-14.0)
[2019-12-22] MEDS: LEVOTHYROXINE 50MCG TABLET (0.05MG) PO SCH (06:08)
[2019-12-22 06:24] LABS: CALCIUM LEVEL 7.9 MG/DL (8.8-10.2); CREATININE FOR GFR 6.4 MG/DL (0.55-1.30); GLOMERULAR FILTRATION RATE 6.8 (>39); POTASSIUM SERUM 3.5 MEQ/L (3.5-5.1)
[2019-12-22] MEDS ORDERED: CREON-12 CAPSULE PO PRN (08:00)
[2019-12-22] MEDS: (RENVELA) SEVELAMER **CARBONate** 800 MG TAB PO SCH ×3 (08:00→18:54)
[2019-12-22] MEDS: CREON-24 CAPSULE PO SCH ×3 (08:17→18:54)
[2019-12-22] MEDS: OMEGA-3 1000MG CAPSULE PO SCH (08:17)
[2019-12-22] MEDS: VITAMIN D 1,000 INTERNATIONAL UNITS TABLET PO SCH (08:17)
[2019-12-22] MEDS: POLYVINYL ALCOHOL OPHTH SOLN 15 ML(LIQUITEARS) OU SCH ×2 (08:17→21:13)
[2019-12-22] MEDS: LINEZOLID 600 MG in IV 1 EA IV SCH ×2 (08:18→19:27)
--- NOTE | 2019-12-22 09:48 | REP ---
Clinical: Pain. Technique: AP, lateral, bilateral oblique and coned-down views of the lumbosacral spine. Findings: Osteopenia and advanced multilevel degenerative changes are appreciated. Evidence for prior vertebroplasty at T12 - L2 with associated mild chronic compression deformities. Lordosis is maintained. No acute fracture / compression injury or subluxation. Impression: Osteopenia and advanced multilevel degenerative spondylosis. Electronically Signed by Celestino López MD 12/22/2019 07:45 A
--- NOTE | 2019-12-22 11:43 | IPNPDOC ---
Subjective Date Seen The patient was seen on 12/22/19. Subjective Chief Complaint/HPI Ms. Escobedo is a 74 year old female who was admitted with a diagnosis of Cellulitis of the L thigh with infected Gresham catheter. Pt reported that she feels a lot better this morning. She stated she only has mild to moderate pain over the R thigh when she walks (using her Zimmerframe); Pt denied any new onset fever or chills. General: Reports: Normal Appetite; Denies: Chills, Night Sweats, Fatigue, Malaise Constitutional: Denies: Chills, Fever, Night Sweats Eyes: Denies: Pain ENT: Denies: Head Aches Skin: Denies: Rash, Lesions Pulmonary: Denies: Dyspnea, Cough Cardiovascular: Denies: Chest Pain, Palpitations, Orthopnea, Paroxysmal Noc. Dyspnea, Lt Headedness Gastrointestinal: Denies: Nausea, Vomiting, Abdominal Pain, Diarrhea, Constipation Genitourinary: Reports: Frequency Hematologic: Denies: Bruising Musculoskeletal: Reports: Leg Pain (R leg with ambulation ); Denies: Neck Pain, Back Pain, Joint Pain, Muscle Pain, Spasms Neurological: Denies: Weakness, Numbness, Change in speech, Confusion Psych: Reports: Mood Normal Objective Physical Examination General Exam: Positive: Alert, No Acute Distress Eye Exam: Positive: Conjunctiva & lids normal; Negative: Sclera icteric ENT Exam: Positive: Atraumatic, Mucous membr. moist/pink, Pharynx Normal Neck Exam: Positive: Supple; Negative: thyromegaly Chest Exam: Positive: Clear to auscultation, Normal air movement Heart Exam: Positive: Rate Normal, Regular Rhythm, Other (distant HS ); Negative: Gallops, Rubs Telemetry: Positive: No significant arrhythmia Abdomen Exam: Positive: Normal bowel sounds, Soft; Negative: Tenderness Extremity Exam: Negative: Clubbing, Cyanosis, Edema Skin Exam: Positive: Nl turgor and temperature, Other skin issue (area of cellulitis marked by staff- are of erythema has improved significantly ) Neuro Exam: Positive: Normal Speech, Cranial Nerves 3-12 NL Psych Exam: Positive: Mood NL Assessment /Plan Assessment Pt is a 74 year old female who was admitted to the hospital with a diagnosis of cellulitis of the R thigh at the site of her Gresham catheter. Pt presented to the ED following 2 days of pain, swelling, redness and purulent drainage from the site of her Gresham catheter. Pt denied any fever or chills. Her catheter was previously functioning without issues, pt stated she had no problems with it until 2/3 days ago when her symptoms started. She currently receives immunotherapy (Daratumumab/Deca on a 28 day cycle) for her Multiple Myeloma via the Gresham in her R thigh; next treatment due 12/23/19. The Gresham cath was placed by Dr. Brush in 2019; Dr. Granger follows the pt for possible perma. cath in the future. In the ED, pt was hypotensive at 78/51 with some recovery after IV saline bolus to 91/52. Pt started on Zyvox and Zosyn and admitted. 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 EXTREMITY NON VASCUL LIMITED RIGHT IMPRESSION: Catheter noted within the superficial vein of the anterior right thigh with slight subcutaneous edema. No drainable fluid collection is seen. Cellulitis, right thigh - Gresham cath likely source of infection; no abscess per [facility] - Consulted with Dr. Granger for removal of the line; line removed and tip cultured - Area of demarcation has improved overnight, pt hemodynamically stable - Blood culture x 3, urine culture - pending - wound culture - Staph. aureus & Gram -ve rods (prelim.) - Continue current antibiotics, elevate extremity - MRSA screen pending Multiple Myeloma - Consulted with Dr. Jessy Saab - continue with deca as Rx., hold immunotherapy while on abx. - will discuss the limited port access options with Dr. Granger - Discussion: as vascular access option are extremely limited for this patient, she will likely need to receive her immunotherapy via rajwinder-cath; there is some concern for infection of the rajwinder-cath subsequent to her Gresham cath being infected. Cath cultures pending as noted above. ESRD - nephrology on board - continued management/maintenance HD per - scheduled for HD today Chronic hypotension, likely due to adrenal insufficiency - not currently being treated with Hydrocortisone; pt filled Rx for 15 day supply on d/c which is now completed - resume once infection resolved; med will need to be continued outpt Crohn's disease status post colectomy with ileostomy - no acute issues Chronic Coumadin therapy due to history of multiple clots - Warfarin currently on hold as INR supra-therapeutic - resume 12/22/19 (previous dosage) based on INR Hypothyroidism - continue Synthroid Anemia of chronic disease - H&H stable - continue serial CBCs Plan/VTE VTE Prophylaxis Ordered?: Yes (Chronic Warfarin ) VS, I&O, 24H, Fishbone Vital Signs/I&O Vital Signs Date Time Temp Pulse Resp B/P (MAP) Pulse Ox O2 Delivery O2 Flow Rate FiO2 12/22/19 06:00 96.1 66 18 101/55 (70) 100 Room Air I&O- Last 24 Hours up to 6 AM 12/22/19 06:00 Intake Total 2050 ml Output Total 500 ml Balance 1550 ml Laboratory Data 24H LABS Laboratory Tests 2 12/21/19 14:11: Immature Granulocyte % (Auto) 0.4, Neutrophils (%) (Auto) 83.3H, Lymphocytes (%) (Auto) 9.0L, Monocytes (%) (Auto) 6.9H, Eosinophils (%) (Auto) 0.3, Basophils (%) (Auto) 0.1, Neutrophils # (Auto) 6.5, Lymphocytes # (Auto) 0.7L, Monocytes # (Auto) 0.5, Eosinophils # (Auto) 0.0, Basophils # (Auto) 0.0, Nucleated Red Blood Cells % (auto) 0.0, Anion Gap 12, Glomerular Filtration Rate 7.5L, Lactic Acid Level 4.4*H, Calcium Level 8.4L, Total Bilirubin 1.3H, Direct Bilirubin 0.3H, Aspartate Amino Transf (AST/SGOT) 20, Alanine Aminotransferase (ALT/SGPT) 28, Alkaline Phosphatase 123H, Total Protein 6.9, Albumin 3.7, Albumin/Globulin Ratio 1.16 12/21/19 19:14: Lactic Acid Followup at 4 Hours 1.8 12/21/19 20:52: Urine Color YELLOW, Urine Appearance CLOUDYH, Urine pH 8.0, Urine Specific Prentiss 1.013, Urine Protein 2+H, Urine Glucose (Auto)(UA) NEGATIVE, Urine Ketones (Auto) NEGATIVE, Urine Blood 1+H, Urine Nitrite NEGATIVE, Urine Chace irubin NEGATIVE, Urine Urobilinogen 0.2, Urine Leukocyte Esterase (Auto) 3+H, Urine WBC (Auto) 144H, Urine RBC (Auto) 8H, Urine Hyaline Casts (Auto) 0, Urine Bacteria (Auto) NEGATIVE, Urine Squamous Epithelial Cells 15, Urine Transitional Epithelial Cells 5, Urine Mucus (Auto) SMALL, Urine Sperm (Auto) 12/21/19 21:51: Prothrombin Time 31.3H, Prothromb Time International Ratio 3.03 12/22/19 05:26: Immature Granulocyte % (Auto) 0.5, Neutrophils (%) (Auto) 81.5H, Lymphocytes (%) (Auto) 9.7L, Monocytes (%) (Auto) 7.2H, Eosinophils (%) (Auto) 0.9, Basophils (%) (Auto) 0.2, Neutrophils # (Auto) 3.5, Lymphocytes # (Auto) 0.4L, Monocytes # (Auto) 0.3, Eosinophils # (Auto) 0.0, Basophils # (Auto) 0.0, Nucleated Red Blood Cells % (auto) 0.0, Prothrombin Time 32.1H, Prothromb Time International Ratio 3.12, Anion Gap 8, Glomerular Filtration Rate 6.8L, Calcium Level 7.9L CBC/BMP Laboratory Tests 12/21/19 14:11 12/22/19 05:26 Microbiology Microbiology 12/21/19 Urine Culture, Received Pending 12/21/19 Blood Culture, Received Pending 12/21/19 Blood Culture, Received Pending 12/21/19 Gram Stain - Final, Resulted 12/21/19 Wound Culture, Resulted Pending 12/21/19 Blood Culture, Received Pending EDWIN GARCIA PA-C Dec 22, 2019 11:43 FELIX SAMPSON DO Dec 22, 2019 19:26
--- NOTE | 2019-12-22 12:54 | ROOPDOC ---
[facility] Report Of Operation Report of Operation DATE OF PROCEDURE: 12/22/19 PREPROCEDURE DIAGNOSES: Infected right femoral dual-lumen tunnel catheter POSTPROCEDURE DIAGNOSES: Same PROCEDURE: Removal right femoral dual-lumen tunnel catheter SURGEON: Maximiliano Granger MD ANESTHESIA: Local anesthesia 5 mL 1% lidocaine with epinephrine INDICATION FOR PROCEDURE: This is a very pleasant 74-year-old patient with end- stage renal disease currently dialyzing with a right IJ PermCath, and currently receiving chemotherapy through a right femoral dual-lumen tunnel catheter. Risks benefits and alternatives to removal of the infected catheter were explained to the patient and she is agreeable to proceed. Informed consent was obtained. REPORT OF OPERATION: The patient's right thigh including the catheter were prepped and draped in a sterile fashion. A timeout was performed. Local analgesia was administered to the skin and subcutaneous tissue around the exit site of the catheter and the cuff. Blunt dissection was used to loosen the cuff from the subcutaneous tissue. Pressure was held over the femoral vein access s ite and the catheter was removed. The catheter was inspected, and was completely removed including the cuff, no portion was left behind. We did send the tip of the catheter for cultures. Next, after 15 minutes of pressure, sterile dressings were applied and the patient was then returned to her room in stable condition. There were no complications. Estimated blood loss was 5 mL. The patient tolerated the procedure well. ESTIMATED BLOOD LOSS: Approximately 5 mL. COMPLICATIONS: None: PLAN: At this point, due to central vein stenosis and limited options for IV access, I think our best option is for the patient to receive both her dialysis in chemotherapy through her right IJ PermCath. I have discussed this with Dr. Granger and Dr. Mckenzie, and both are agreeable due to the limited options for this patient. It certainly is high risk to use her PermCath for anything other than dialysis, and a very careful sterile technique will have to be done for every chemotherapy access. Unfortunately, the patient is a poor candidate for a line holiday because we may not be able to get another access for her. Femoral vein access is not ideal for long-term access due to a higher risk of infection and vein thrombosis. However, at some point, this may be her only option. Due to rebekah tral vein thrombosis, she is a poor candidate for AV access in her upper extremities as well. Hopefully, with removal of the catheter, we have prevented the patient from becoming bacteremic and with IV antibiotics she will be able to maintain her right IJ PermCath. We will see how she does over the rest of her hospitalization. MAXIMILIANO GRANGER MD Dec 22, 2019 12:53
[2019-12-22] MEDS: diphenhydrAMINE 25 MG CAP PO SCH (13:27)
[2019-12-22 14:00] VITALS: BP 104/56
[2019-12-22] MEDS: NORCO, ANEXSIA 5/325MG TABLET (HYDROcodone/ACETAMINOPHEN) PO PRN (14:16)
[2019-12-22] MEDS ORDERED: WARFARIN SOD 5 MG TAB PO SCH (17:00)
--- NOTE | 2019-12-22 18:24 | CR ---
DATE OF CONSULTATION: 12/22/2019 REQUESTING PHYSICIAN: Dr. Reagan CONSULTING PHYSICIAN: Dr. Mckenzie REASON FOR CONSULTATION: Management of end-stage renal disease on hemodialysis. HISTORY OF PRESENT ILLNESS: Yoana Escobedo is very well-known to me. She is a 74-year-old female with a past medical history of end-stage renal disease on maintenance hemodialysis on Friday, Friday, Friday schedule via a tunneled right internal jugular (IJ) Perma-Cath, also history of multiple myeloma, IgG kappa diagnosed in 2008, status post stem cell transplant with recurrence on chronic chemotherapy managed by hematology/oncology, Crohn's disease status post colectomy and ileostomy, history of transient ischemic attack (TIA), history of clots on chronic Coumadin anticoagulation. The patient has paucity of available sites for access and is not considered to be a candidate for arteriovenous (AV) fistula or AV graft creation. She has a Gresham catheter in the right thigh, through which she receives her chemotherapy. She presented to the emergency room with complaint of tenderness and erythema and swelling at site of the right thigh Gresham catheter without any associated fevers, chills or rigors, and she was admitted for cellulitis and possible abscess at the Gresham catheter. She is scheduled for removal of the catheter with vascular surgery this afternoon. She reports her last dialysis treatment was on Friday and she is due for dialysis today. She has been started on broad-spectrum antibiotics and cultures are pending. Laboratory studies were significant for lactic acidosis that improved with IV fluid. PAST MEDICAL HISTORY: 1. End-stage renal disease on hemodialysis. 2. History of multiple myeloma. 3. History of stem cell transplant in the past which has failed with current relapse of multiple myeloma. 4. Peripheral neuropathy. 5. Secondary hyperparathyroidism. 6. Anemia of chronic renal failure/malignancy. 7. Crohn's disease status post colectomy and ileostomy status. 8. Hypothyroidism. 9. Transient ischemic attacks (TIAs). 10. Thrombosis and chronic anticoagulation. PAST SURGICAL HISTORY: 1. Status post colectomy. 2. Status post Perma-Cath placement. 3. History of arteriovenous (AV) fistula and resection. 4. Vertebroplasty. 5. Gresham catheter. ALLERGIES: VANCOMYCIN. FAMILY HISTORY: No significant family history of end-stage renal disease requiring hemodialysis. SOCIAL HISTORY: She lives at home. Denies smoking, drugs or alcohol. REVIEW OF SYSTEMS: CONSTITUTIONAL: She denies fevers or chills. EYES: Denies visual changes or tearing. EARS, NOSE AND THROAT (ENT): Denies dysphagia or odynophagia. CARDIAC: Denies chest pain, palpitations, or swelling. RESPIRATORY: She reports no cough or dyspnea with exertion. GASTROINTESTINAL: She reports normal ostomy output. Denies nausea or vomiting. GENITOURINARY: She still makes urine. She denies dysuria. MUSCULOSKELETAL: She denies any acute myalgias or arthralgias. She reports swelling and erythema at the site of right thigh Gresham catheter. NEUROLOGIC: She has a history of transient ischemic attacks (TIAs) in the past. She denies seizure or syncope. SKIN: As mentioned in the history of present illness (HPI), cellulitis of the right thigh associated with catheter. PSYCHIATRIC: She denies depression or anxiety. HEMATOLOGY/ONCOLOGY: She reports chronic anticoagulant use, anemia, multiple myeloma and relapse. All other review of systems is negative or as per HPI. HOME MEDICATIONS: - vitamin D3 2000 units by mouth daily - dexamethasone as directed - Benadryl predialysis three times a week - levothyroxine 50 mcg by mouth daily - Creon two capsules by mouth with meal and one capsule with snacks - Renvela 800 mg by mouth with meal - Coumadin as directed VITAL SIGNS: Temperature 96.1, pulse 66, respiratory rate 18, blood pressure 101/55, saturating 100% on room air. Intake yesterday was 1850, weight in the bed scale was 46.2 kg. GENERAL: The patient is seen awake, alert and oriented in no apparent distress, smiling and in good spirits. Extraocular muscles are intact. Tongue is moist. Neck is supple. Tunneled dialysis catheter present in right chest wall. Heart sounds are regular, S1, S2. There is no edema. Lungs are clear to auscultation bilaterally. No crackle, rale or rhonchus. The tunneled dialysis catheter in the right chest wall has no signs of infection. There is a dressing that is clean, dry and intact. Abdomen is soft and nontender. There is an ostomy present with a small amount of pasty stool. Extremities show muscle wasting. There is a Gresham catheter on the right thigh with an area of erythema and swelling. No nayeli purulent discharge noted. There is otherwise no clubbing, edema or cyanosis. The demarcated area of erythema has decreased appreciably. SKIN: Normal temperature and turgor. NEUROLOGIC: Oriented times three, interactive, at baseline mentation. LABORATORY DATA: Sodium 134, potassium 3.5, bicarbonate 28, BUN 52, glucose 81. White count 4.3, hemoglobin 11.8. Wound culture grew gram-positive cocci in clusters. Blood cultures are pending. Catheter tip culture is pending. Ultrasound of the right thigh did not reveal any drainable fluid collection. INPATIENT MEDICATIONS: - Zyvox 600 mg IV every 12 hours - She received 1.5 liters of normal saline. - Zosyn 2.25 grams IV every eight hours - Tylenol as needed - Synthroid 50 mcg by mouth daily - oxycodone one tablet by mouth times one - pancreatic enzymes - Renvela 800 mg by mouth with meal - Coumadin 7.5 mg by mouth times one PROBLEMS: 1. End-stage renal disease on hemodialysis on a Friday, Friday, Friday schedule. The patient dialyzes via Perma-Cath. Given the Gresham catheter cellulitis and infection, I am concerned that her dialysis catheter may be compromised as well. I have discussed the same with vascular surgery. Dr. Granger informs me that the patient has no further options for dialysis access and if her dialysis Perma-Cath is removed, it is possible that she may not be able to have a new dialysis access placed. At the present time, we are awaiting blood cultures. Hopefully, she will not need a line holiday due to the above-mentioned access issues. I would plan to dialyze her this afternoon as per her maintenance schedule without any fluid removal. 2. Right thigh cellulitis associated with Gresham catheter. She is receiving renally dosed broad-spectrum antibiotics. Gresham catheter is being discontinued by vascular surgery. Cultures including catheter tip and blood culture are pending. Because of her lack of available access sites and high risk for recurrent infection with catheters in the thigh, she is likely going to need to use her dialysis catheter for future chemotherapy. 3. Hypotension. Blood pressures have improved with 1.5 liters of IV fluid. Lactic acidosis has resolved. We do not remove fluid with her hemodialysis treatments. I have to clarify with Yoana whether she is taking daily hydrocortisone or not. On her last admission, she was discharged on daily hydrocortisone as she was felt to have chronic adrenal insufficiency. 4. History of clots. The patient is maintained on Coumadin anticoagulation. International normalized ratio (INR) is slightly supratherapeutic. Coumadin to be managed by primary team. 5. Anemia of chronic renal failure and related to active malignancy. Hemoglobin is acceptable. She will continue on Aranesp as indicated. 6. Multiple myeloma with relapse. Gresham catheter was being used for chemotherapy. It is being removed because of cellulitis. She is high risk for recurrent infections with access in the thigh. I discussed with vascular surgery. Most likely, her present hemodialysis catheter may need to be used for concurrent chemotherapy administration. Thank you for involving me in the care of Ms. Escobedo. I will be happy to follow her along with you.
[2019-12-22] MEDS ORDERED: POTASSIUM CHLORIDE 10 MEQ SR TABLET PO ONE (20:00)
[2019-12-22 22:00] VITALS: BP 98/46
[2019-12-23] MEDS: LEVOTHYROXINE 50MCG TABLET (0.05MG) PO SCH (05:23)
[2019-12-23 06:00] VITALS: BP 96/45
[2019-12-23 06:17] LABS: BASO % 0.2 % (0.0-1.0); EOS % 0.5 % (0.0-3.0); HEMATOCRIT 36.5 % (36.0-47.0); HEMOGLOBIN 11.5 g/dl (12.0-15.5); LYMPH # 0.6 10^3/uL (1.5-5.0); LYMPH % 13.4 % (24.0-44.0); MEAN CORPUSCULAR HEMOGLOBIN 33.2 pg (27.0-33.0); MEAN CORPUSCULAR HGB CONC 31.5 g/dl (32.0-36.5); MEAN CORPUSCULAR VOLUME 105.5 fl (80.0-96.0); MONO # 0.4 10^3/uL (0.0-0.8); MONO % 8.5 % (0.0-5.0); NEUTROPHILS # 3.3 10^3/uL (1.5-8.5); NEUTROPHILS % 76.7 % (36.0-66.0); PLATELET COUNT, AUTOMATED 174 10^3/uL (150-450); RED BLOOD COUNT 3.46 10^6/uL (4.00-5.40); WHITE BLOOD COUNT 4.3 10^3/uL (4.0-10.0)
[2019-12-23 06:27] LABS: INR 3.16; PROTHROMBIN TIME 32.4 SECONDS (11.8-14.0)
[2019-12-23] MEDS: (RENVELA) SEVELAMER **CARBONate** 800 MG TAB PO SCH ×3 (08:08→17:08)
[2019-12-23] MEDS: OMEGA-3 1000MG CAPSULE PO SCH (08:08)
[2019-12-23] MEDS: VITAMIN D 1,000 INTERNATIONAL UNITS TABLET PO SCH (08:08)
[2019-12-23] MEDS: POLYVINYL ALCOHOL OPHTH SOLN 15 ML(LIQUITEARS) OU SCH ×2 (08:08→20:58)
[2019-12-23] MEDS: LINEZOLID 600 MG in IV 1 EA IV SCH (08:08)
[2019-12-23] MEDS: CREON-24 CAPSULE PO SCH ×3 (08:08→17:08)
--- NOTE | 2019-12-23 11:36 | IPNPDOC ---
Text Note Date of Service The patient was seen on 12/23/19. NOTE Subjective Chief Complaint/HPI Ms. Escobedo is a 74 year old female who was admitted with a diagnosis of Cellulitis of the L thigh with infected Gresham catheter. Pt continues to feel improved. She reported the pain in her thigh is almost gone, very little pain in the R thigh when walking with her walker. No further issues reported. Objective Physical Examination General Exam: Positive: Alert, No Acute Distress Eye Exam: Positive: Conjunctiva & lids normal; Negative: Sclera icteric ENT Exam: Positive: Atraumatic, Mucous membr. moist/pink, Pharynx Normal Neck Exam: Positive: Supple; Negative: thyromegaly Chest Exam: Positive: Clear to auscultation, Normal air movement Heart Exam: Positive: Rate Normal, Regular Rhythm, Other (distant HS ); Negative: Gallops, Rubs Telemetry: Positive: No significant arrhythmia Abdomen Exam: Positive: Normal bowel sounds, Soft; Negative: Tenderness Extremity Exam: Negative: Clubbing, Cyanosis, Edema Skin Exam: Positive: Nl turgor and temperature, Other skin issue (very little redness around prev cath site; TTP at 1o'clock ) Neuro Exam: Positive: Normal Speech, Cranial Nerves 3-12 NL Psych Exam: Positive: Mood NL Assessment /Plan Assessment Pt is a 74 year old female who was admitted to the hospital with a diagnosis of cellulitis of the R thigh at the site of her Gresham catheter. Pt presented to the ED following 2 days of pain, swelling, redness and purulent drainage from the site of her Gresham catheter. Pt denied any fever or chills. Her catheter was previously functioning without issues, pt stated she had no problems with it until 2/3 days ago when her symptoms started. She currently receives immunotherapy (Daratumumab/Deca on a 28 day cycle) for her Multiple Myeloma via the Gresham in her R thigh; next treatment due 12/23/19. The Gresham cath was placed by Dr. Brush in 2019; Dr. Granger follows the pt for possible perma. cath in the future. In the ED, pt was hypotensive at 78/51 with some recovery after IV saline bolus to 91/52. Pt started on Zyvox and Zosyn and admitted. 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 EXTREMITY NON VASCUL LIMITED RIGHT IMPRESSION: Catheter noted within the superficial vein of the anterior right thigh with slight subcutaneous edema. No drainable fluid collection is seen. Cellulitis, right thigh - Gresham cath likely source of infection; no abscess per [facility] - Consulted with Dr. Granger for removal of the line; line removed and tip cultured - Area of demarcation continues to improve, pain has almost resolved, pt hemodynamically stable - Blood culture x 3, urine culture - pending - MRSA screen - negative - wound culture - Staph. aureus and Pseudomonas aeruginosa; Gresham catheter culture - Staph aureus (prelim) - Continue current antibiotics, elevate extremity Multiple Myeloma - Consulted with Dr. Jessy Saab - continue with deca as Rx., hold immunotherapy while on abx. - limited port access options per Dr. Granger - Discussion: as vascular access option are extremely limited for this patient, she will likely need to receive her immunotherapy via rajwinder-cath; there is some concern for infection of the rajwinder-cath subsequent to her Gresham cath being infected. Cath cultures +ve for Staph. aureus ESRD - nephrology on board - continued management/maintenance HD per - scheduled for HD today Chronic hypotension, likely due to adrenal insufficiency - not currently being treated with Hydrocortisone; pt filled Rx for 15 day supply on d/c and completed the course - pt has not been to see her PCP since previous d/c. We have discussed f/u with them for continuation of her hydrocortisone on d/c. Crohn's disease status post colectomy with ileostomy - no acute issues Chronic Coumadin therapy due to history of multiple clots - Warfarin currently on hold as INR supra-therapeutic - resume 12/24/19 (previous dosage) based on INR Hypothyroidism - continue Synthroid Anemia of chronic disease - H&H stable - continue serial CBCs Plan/VTE VTE Prophylaxis Ordered?: Yes (Chronic Warfarin ) Patient is much better today, cellulitis markedly improved. Wound culture was positive for MRSA negative staph areas and Pseudomonas aeruginosa. Tip of the catheter positive Staphylococcus Aureus I will change antibiotics to doxycycline by mouth and levofloxacin. Anticipated discharge in 24 hours [facility], have independently examined this patient and performed my own physical exam, as well as reviewed the documentation. I have discussed in detail with the nurse practitioner the findings and plan of treatment as documented by the nurse practitioner . I will continue to follow the patient during this hospital stay. VS,Fishbone, I+O VS, Fishbone, I+O Laboratory Tests 12/23/19 05:23 Vital Signs Date Time Temp Pulse Resp B/P (MAP) Pulse Ox O2 Delivery O2 Flow Rate FiO2 12/23/19 06:00 98.0 73 18 96/45 (62) 97 Room Air I&O- Last 24 Hours up to 6 AM 12/23/19 06:00 Intake Total 1060 ml Output Total 200 ml Balance 860 ml EDWIN GARCIA PA-C Dec 23, 2019 11:36 FELIX SAMPSON DO Dec 23, 2019 19:11
[2019-12-23 14:00] VITALS: BP 118/50
[2019-12-23] MEDS: NORCO, ANEXSIA 5/325MG TABLET (HYDROcodone/ACETAMINOPHEN) PO PRN (14:21)
[2019-12-23] MEDS ORDERED: WARFARIN SOD 7.5 MG TAB PO SCH ×2 (17:00)
--- NOTE | 2019-12-23 19:19 | IPN ---
DATE: 12/23/2019 SUBJECTIVE: The patient is seen and examined laying in bed this morning. She was very pleasant, calm and in no acute distress. She had no complaints. She says that the site of the infection of her right thigh catheter has improved and is going down. She is eager to know the results of her cultures and she is concerned about holding her Coumadin today, as her INR was supratherapeutic. Otherwise, no changes overnight and she is not having any issues this morning. OBJECTIVE: VITAL SIGNS: Temperature 97.9, pulse of 70, respiratory rate of 18, blood pressure 118/50, with a mean arterial pressure (MAP) of 72. Her blood pressures have been ranging in systolic anywhere between 70s to 90s/40s to 50s in the past 24 hours. Pulse oximetry: She is 100% on room air. INPUT AND OUTPUT: She has a total of a net positive balance of 960 mL. She is making urine, but it is not recorded, and she did have 200 mL taken off yesterday with dialysis. PHYSICAL EXAMINATION: GENERAL: She is laying in bed. She is calm, cooperative, very pleasant, no acute distress. HEAD: Normocephalic, atraumatic. HEENT: Pupils equally round and reactive to light. Extraocular movements are intact. Neck is supple. No thyromegaly and no lymphadenopathy. CHEST: She has even chest rise. LUNGS: She is clear to auscultation bilaterally with no adventitious breath sounds appreciated. HEART SOUNDS: Regular S1, S2. Regular rate and rhythm with no murmurs, rubs or gallops heard. ABDOMEN: Soft and nontender. She has an ostomy present, with a small amount of stool in her ostomy bag. Bowel sounds are positive. No masses or organomegaly. EXTREMITIES: Show muscle wasting. There is a Gresham catheter in the right thigh with a small area of erythema and swelling. The previous area of erythema and swelling has been traced and now it is much smaller. Otherwise, no clubbing, cyanosis or edema. SKIN: Normal temperature and turgor. No new rashes. NEUROLOGIC: Cranial nerves II-XII are intact. PSYCHIATRIC: She is awake, alert and oriented times three. LYMPHATICS: She has no enlarged lymph nodes in the posterior, auricular, cervical or femoral chain. LABORATORY DATA: Today: Her complete blood count (CBC) demonstrated a white blood cell count 4.3, hemoglobin 11.5, hematocrit of 36.5 and a platelet count of 174. Chemistries 12/22/2019: She has a sodium of 134, potassium of 3.5, a chloride of 98, a BUN of 52, and a creatinine of 6.5 from 5.88 yesterday. There was no metabolic panel done today. Her last known lactic acid was on 12/21/2019 at 2:11 p.m. and was found to be 4.4. A followup four hour lactic acid was found to be 1.8. This morning, her PT was found to be 32.4 and her INR was 3.16. MICROBIOLOGY: Her catheter tip from the Gresham catheter resulted in a growth of Staphylococcus aureus. Her urine culture was negative. Her blood culture was preliminarily negative after 24 hours. Her blood culture from her report was preliminarily negative after 48 hours. The wound culture from her right leg grew Staphylococcus aureus and Pseudomonas aeruginosa and her first venous blood culture was negative for growth. She did not have any new imaging done. PROBLEMS: 1. End-stage renal disease on hemodialysis Friday, Friday, Friday. The patient dialyzes via PermaCath. She did get dialysis yesterday and will go again tomorrow, Friday, for her next dialysis treatment, The Gresham catheter that was removed grew Staphylococcus aureus and thankfully, there have been no positive blood cultures to date that would be concerning, as her PermaCath would have to be possibly removed if she had positive bacteremia. As stated before Dr. Granger was consulted and she informed us that there are no further options for dialysis access if her PermaCath is removed and she will not be able to have a new dialysis access placed. So, we will continue to await blood cultures and, hopefully, they will be negative and the patient can resume dialysis as needed for her maintenance schedule. For the time being, we are going to dialyze her tomorrow per her schedule without any fluid removal, 2. Right thigh cellulitis associated with her Gresham catheter. As stated before, the catheter tip culture grew Staphylococcus aureus. Continue Zyvox for empiric treatment at this time. 3. Hypotension. Blood pressures have improved with 1.5 liters of intravenous (IV) fluid. The patient has come up considerably in her blood pressure throughout the day and now her blood pressure is suitable. I will be testing her a.m. cortisol, as she may have some adrenal insufficiency, which would explain why she has been on hydrocortisone and why her blood pressures have been low. 4. Concern for adrenal insufficiency. As stated before, the patient has been on a course of hydrocortisone written to her by her primary care provider (PCP). She only took about 10-15 days of this medication and has not yet had it filled. Again, I will be checking her a.m. cortisol to check this level tomorrow morning. 5. History of clots. The patient is maintained on Coumadin anticoagulation. The primary team is managing this. She currently has a supratherapeutic INR. Will defer this to the primary team. 6. Anemia of chronic renal failure related to active malignancy. Hemoglobin is acceptable at this time. Continue on Aranesp. 7. Multiple myeloma with relapse. To my knowledge, oncology has been consulted and her Gresham catheter had been used for chemotherapy. What will likely happen in the case that the patient does not have bacteremia, she will have to use her dialysis catheter for both chemotherapy and dialysis. We will continue to follow in the care of Mrs. Escobedo. Please contact the nephrology team with any questions. JUANA
[2019-12-23] MEDS ORDERED: LevoFLOXacin 750 MG TABLET PO ONE (20:00)
[2019-12-23] MEDS: DOXYCYCLINE HYCLATE 100 MG TAB PO SCH (20:57)
[2019-12-23 22:00] VITALS: BP 92/44
[2019-12-24 06:00] VITALS: BP 109/48
[2019-12-24] MEDS: CREON-24 CAPSULE PO SCH ×2 (06:41→12:26)
[2019-12-24] MEDS: LEVOTHYROXINE 50MCG TABLET (0.05MG) PO SCH (06:41)
[2019-12-24] MEDS: (RENVELA) SEVELAMER **CARBONate** 800 MG TAB PO SCH ×2 (06:42→12:26)
[2019-12-24] MEDS: OMEGA-3 1000MG CAPSULE PO SCH (06:42)
[2019-12-24] MEDS: VITAMIN D 1,000 INTERNATIONAL UNITS TABLET PO SCH (06:42)
[2019-12-24] MEDS: DOXYCYCLINE HYCLATE 100 MG TAB PO SCH (06:42)
[2019-12-24] MEDS: POLYVINYL ALCOHOL OPHTH SOLN 15 ML(LIQUITEARS) OU SCH (06:42)
[2019-12-24 07:25] LABS: EOS % 0.5 % (0.0-3.0); HEMATOCRIT 35.3 % (36.0-47.0); HEMOGLOBIN 11.2 g/dl (12.0-15.5); LYMPH # 0.6 10^3/uL (1.5-5.0); LYMPH % 16.2 % (24.0-44.0); MEAN CORPUSCULAR HEMOGLOBIN 33.2 pg (27.0-33.0); MEAN CORPUSCULAR HGB CONC 31.7 g/dl (32.0-36.5); MEAN CORPUSCULAR VOLUME 104.7 fl (80.0-96.0); MONO # 0.4 10^3/uL (0.0-0.8); MONO % 9.5 % (0.0-5.0); NEUTROPHILS # 2.8 10^3/uL (1.5-8.5); NEUTROPHILS % 73.3 % (36.0-66.0); PLATELET COUNT, AUTOMATED 171 10^3/uL (150-450); RED BLOOD COUNT 3.37 10^6/uL (4.00-5.40); WHITE BLOOD COUNT 3.8 10^3/uL (4.0-10.0)
[2019-12-24 07:35] LABS: INR 2.72; PROTHROMBIN TIME 28.7 SECONDS (11.8-14.0)
[2019-12-24 08:04] LABS: CALCIUM LEVEL 8.6 MG/DL (8.8-10.2); CREATININE FOR GFR 5.94 MG/DL (0.55-1.30); GLOMERULAR FILTRATION RATE 7.4 (>39); POTASSIUM SERUM 4.4 MEQ/L (3.5-5.1)
[2019-12-24] MEDS: diphenhydrAMINE 25 MG CAP PO SCH (12:00)
[2019-12-24] MEDS ORDERED: LEVA1TAB2 PO (12:56)
[2019-12-24] MEDS ORDERED: DOXY100T PO (12:56)
[2019-12-24] MEDS ORDERED: HYDR-4513 PO (13:02)
--- NOTE | 2019-12-24 13:30 | DS.PDOC ---
Discharge Summary General Date of Admission Dec 21, 2019 at 19:51 Date of Discharge 12/24/2019 Discharge Summary PROCEDURES PERFORMED DURING STAY: [None]. ADMITTING DIAGNOSES: 1. Cellulitis 2. Multiple Myeloma 3. ESRD 4. Crohn's disease 5. Ileostomy status 6. History of TIA DISCHARGE DIAGNOSES: 1. Cellulitis 2. Multiple Myeloma 3. ESRD 4. Crohn's disease 5. Ileostomy status 6. History of TIA 7. Chronic Hypotension 8. Chronic Coumadin therapy 9. Hypothyroidism 10. Anemia of Chronic Disease COMPLICATIONS/CHIEF COMPLAINT: Local Infection D/T Gresham Catheter. HISTORY OF PRESENT ILLNESS: "This is a 74-year-old female with history of multiple myeloma IgG [place] diagnosed 2009 status post stem cell transplant, on chronic chemotherapy and chronic prednisone, followed by Dr. 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 Patient changed it last night and put Neosporin around the entry site, with significant pain described as soreness, 9/10, worse when she moves it and when she ambulates with some relief after taking one hydrocodone last night from August 2019 prescription of hydrocodo ne. Patient presents for further evaluation. Was found to have cellulitis and possible abscess formation due to Gresham catheter placement. According to the patient, this was being used for chemotherapy and was placed by Dr. Brush, interventional radiology in August 2019. Patient is due to have another chemotherapy on . She is followed by Dr. Granger, who would like to finish up with her chemotherapy prior to putting a permanent access for her dialysis. Patient also complains of pain in her tailbone, describes it as being sore, unable to pull herself up from sitting in bed and standing up. Otherwise, she denies any radicular symptoms, denies any paresthesias down the leg or any weakness bilateral lower extremities, urine or bowel incontinence. In the emergency room (ER) she was found to be hypotensive, pressure of 91/52, down to 78/51, status post one liter of normal saline. Was given Zyvox 600 mg intravenously. Patient's blood pressure came up to 105 systolic at the time of admission." HOSPITAL COURSE: Pt was admitted as noted above. Blood cultures x 3, wound culture and stain, urine culture obtained and pt started on Zosyn, Zyvox and IV fluids. Overnight, pt remained hemodynamically stable, she improved clinically and noted improvement in the redness around her thigh. Dr. Mckenzie (nephrology), Dr. Granger (vascular surgeon) and Dr. rGanger (oncology) consulted. Dr. Granger removed the Gresham Catheter and sent for C&S due to fears that the patient's rajwinder-cath (for HD) may also have seeded an infection. Dr. Granger recommended continuing Decadron, continuing immunotherapy once patient had recovered from current infection. Dr. Mckenzie managed HD. Currently, the vascular access for Ms. Escobedo is very limited; the current thought is that if she does not have a bacteremia, she could receive her Daratumumab via her rajwinder- cath. Pt reported that Dr. Granger will assess her outpt for a more viable option for vascular access. Pt was treated for 48 hours with Zosyn and Zyvox; then switched to PO Doxycycline 12/23/19 with Levaquin added 12/24/19 based on culture results. Cultures - Gresham Cath = Staph aureus; wound - Staph aureus and Pseudomonas; urine culture - negative. Blood cultures x 3 - no growth @ 48 hours. Pt reported that her symptoms of pain, redness and wound d/c had resolved. She was medically optimized and d/c home with the instructions noted below. DISCHARGE MEDICATIONS: Please see below. ALLERGIES: Please see below. PHYSICAL EXAMINATION ON DISCHARGE: VITAL SIGNS: Please see below. General Exam: Positive: Alert, No Acute Distress Eye Exam: Positive: Conjunctiva & lids normal; Negative: Sclera icteric ENT Exam: Positive: Atraumatic, Mucous membr. moist/pink, Pharynx Normal Neck Exam: Positive: Supple; Negative: thyromegaly Chest Exam: Positive: Clear to auscultation, Normal air movement Heart Exam: Positive: Rate Normal, Regular Rhythm, Other (distant HS ); Negative: Gallops, Rubs Telemetry: Positive: No significant arrhythmia Abdomen Exam: Positive: Normal bowel sounds, Soft; Negative: Tenderness Extremity Exam: Negative: Clubbing, Cyanosis, Edema Skin Exam: Positive: Nl turgor and temperature, Other skin issue (inflammation around wound has resolved; wound healing appropriately, no TTP) Neuro Exam: Positive: Normal Speech, Cranial Nerves 3-12 NL Psych Exam: Positive: Mood NL LABORATORY DATA: Please see below. IMAGING: EXTREMITY NON VASCUL LIMITED RIGHT IMPRESSION: Catheter noted within the superficial vein of the anterior right thigh with slight subcutaneous edema. No drainable fluid collection is seen. Spine. Lumbosacral, complete Impression: Osteopenia and advanced multilevel degenerative spondylosis. ACTIVITY: [As tolerated]. DIET: Regular DISCHARGE PLAN: Discharge home; current home support are daughter and helper (3XW). Prescribed Doxycycline and Levaquin - resume Warfarin with pre-scheduled Fri and Fri INR checks by PCP; adjustments prn. Decadron due on Friday; BP soft but improved today. Resume Hydrocortisone 10mg BID after abx therapy complete due to interactions with Warfarin. Your HCP may adjust this outpt based on the clinical picture. DISPOSITION: d/c home DISCHARGE INSTRUCTIONS: 1. see above ITEMS TO FOLLOWUP ON ON OUTPATIENT: Follow Up Appt: Javier 12/31 @ 9:30([phone])[place] 01/05 @ 10:45 ([phone]) Referrals: Dr. Mckenzie per Dialysis; Activity: As Tolerated Diet: As Tolerated Other Instruction: Continue Decadron as directed. Resume Hydrocortisone. INR need to be monitored closely on d/c (RE: antibiotics) and warfarin adjusted prn; coordinate with nephrology or PCP. DISCHARGE CONDITION: [Stable]. TIME SPENT ON DISCHARGE: 35 minutes Vital Signs/I&Os Vital Signs Date Time Temp Pulse Resp B/P (MAP) Pulse Ox O2 Delivery O2 Flow Rate FiO2 12/24/19 06:00 98.2 65 16 109/48 (68) 99 Room Air I&O- Last 24 Hours up to 6 AM 12/24/19 05:59 Intake Total 1560 ml Balance 1560 ml Laboratory Data Labs 24H Laboratory Tests 2 12/24/19 07:02: Immature Granulocyte % (Auto) 0.5, Neutrophils (%) (Auto) 73.3H, Lymphocytes (%) (Auto) 16.2L, Monocytes (%) (Auto) 9.5H, Eosinophils (%) (Auto) 0.5, Basophils (%) (Auto) 0.0, Neutrophils # (Auto) 2.8, Lymphocytes # (Auto) 0.6L, Monocytes # (Auto) 0.4, Eosinophils # (Auto) 0.0, Basophils # (Auto) 0.0, Nucleated Red Blood Cells % (auto) 0.0, Prothrombin Time 28.7H, Prothromb Time International Ratio 2.72, Anion Gap 8, Glomerular Filtration Rate 7.4L, Calcium Level 8.6L, Cortisol AM Sample 15.1 CBC/BMP Laboratory Tests 12/24/19 07:02 Microbiology Microbiology 12/22/19 Catheter Tip Culture - Final, Complete Staphylococcus Aureus 12/21/19 Urine Culture - Final, Complete 12/21/19 Blood Culture - Preliminary, Resulted No Growth after 48 hours. All Specime... 12/21/19 Blood Culture - Preliminary, Resulted No Growth after 48 hours. All Specime... 12/21/19 Gram Stain - Final, Complete 12/21/19 Wound Culture - Final, Complete Staphylococcus Aureus Pseudomonas Aeruginosa 12/21/19 Blood Culture - Preliminary, Resulted No Growth after 48 hours. All Specime... Discharge Medications Scheduled Cholecalciferol (Vitamin D3) (Vitamin D3) 2,000 Unit Tab.chew, 2,000 UNIT PO DAILY, (Reported) Cyclosporine (Restasis) 0.05% Droperette, 1 DROP OU BID, (Reported) Dexamethasone (Dexamethasone) 4 Mg Tab, 12 MG PO ASDIRECTED TAKES DAYS 1,8,15,22 - LAST DOSE WAS DAY 1 OF CYCLE Diphenhydramine HCl (Benadryl) 25 Mg Capsule, 25 MG PO 3XW, (Reported) TAKE PRIOR TO DIALYSIS ON ,, Doxycycline Hyclate (Doxycycline Hyclate) 100 Mg Tablet, 100 MG PO BID Hydrocortisone (Hydrocortisone) 10 Mg Tablet, 10 MG PO BID Start this medication when you have finished your antibiotics unless advised by your doctor to start sooner. Levofloxacin (Levaquin) 500 Mg Tablet, 500 MG PO Q48H Levothyroxine Sodium (Levoxyl) 50 Mcg Tablet, 50 MCG PO DAILY, (Reported) Lipase/Protease/Amylase (Creon Dr 36,000 Units Capsule) 1 Each Capsule.dr, 2 CAP PO WM, (Reported) Lipase/Protease/Amylase (Pratibha Pandey 36,000 Units Capsule) 1 Each Capsule.dr, 1 CAP PO ASDIRECTED, (Reported) WITH SNACKS Isabella-3 Fatty Acids/Fish Oil (Fish Oil 1,000 mg Capsule) 1 Each Capsule, 1,000 MG PO DAILY, (Reported) Sevelamer Carbonate (Renvela) 800 Mg Tablet, 800 MG PO WM, (Reported) Warfarin Sodium (Warfarin Sodium) 5 Mg Tablet, 5 MG PO 4XWK, (Reported) QPM: M,W,F,SUN Warfarin Sodium (Warfarin Sodium) 5 Mg Tablet, 7.5 MG PO 3XW, (Reported) QPM: T, TH, SA Scheduled PRN Hydrocodone/Acetaminophen (Hydrocodone-Acetamin 5-325 mg) 1 Each Tablet, 1 TAB PO Q6H PRN for PAIN, (Reported) Allergies Coded Allergies: vancomycin (Verified Allergy, Intermediate, RASH/ITCHING, 03/26/19) EDWIN GARCIA PA-C Dec 24, 2019 13:30
[2019-12-24 14:00] VITALS: BP 108/49
[2019-12-24] MEDS ORDERED: WARFARIN SOD 5 MG TAB PO SCH (17:00)
--- NOTE | 2019-12-24 19:31 | IPN ---
DATE: 12/24/2019 SUBJECTIVE: Yoana is seen and examined this morning at the bedside. She is discharge pending to complete a course of antibiotics as an outpatient. Her hemodialysis schedule is Friday, Friday, Friday, but today's dialysis treatment has been rescheduled to tomorrow, Friday12/25/2019. She offers no complaints. INR is therapeutic today. VITAL SIGNS: Temperature 98.2, pulse 65, respiratory rate 16, blood pressure 109/48, saturating 99% on room air. Intake yesterday was 1560. Weight in the bed scale today is 47.8 kg. GENERAL: The patient is seen awake, alert, oriented, comfortable, in no apparent distress. Extraocular muscles are intact. Tongue is moist. Neck is supple. There is a tunneled hemodialysis catheter with dressing in the right chest wall. Heart sounds are regular. S1-S2. There is absolutely no edema in the dependent areas nor in the peripheries. Lungs are clear to auscultation bilaterally. No crackle, rale or rhonchus. Abdomen is soft and nontender. There is an ostomy present in the right side with some pasty stool. Extremities: There is significant muscle wasting. The Gresham catheter on the right side was removed. The demarcated area of erythema is almost resolved. There is no clubbing, cyanosis or edema. SKIN: Normal temperature and turgor. NEUROLOGIC: Oriented times three, interactive and conversational. LABORATORY DATA: INR 2.7. Hemoglobin 11.2, white count 3.8. Sodium 136, potassium 4.4. MICROBIOLOGY: Catheter tip culture grew Staphylococcus aureus. Wound culture also grew Staphylococcus aureus and Pseudomonas. Blood cultures have been negative. INPATIENT MEDICATIONS: Reviewed by myself. Her intravenous (IV) Zyvox was stopped and she was switched to doxycycline 100 mg by mouth twice a day. and Levaquin 500 mg by mouth every 48 hours. Remainder of medications are unchanged from prior. PROBLEMS: 1. End-stage renal disease on hemodialysis on a Friday, Friday, Friday schedule. The patient is well dialyzed. Electrolytes and volume status are acceptable. She will miss today's hemodialysis treatment, but it has been rescheduled to be done outpatient 12/25/2019, and after that she will resume her usual Friday, Friday, Friday schedule. Patient is aware of the same. Blood cultures have been negative and, as previously discussed, there is no plan for a line holiday at present because of high likelihood of inability to obtain a new dialysis access. 2. Right thigh cellulitis associated with Gresham catheter status post catheter removal. There is marked improvement clinically. The erythema has resolved. She is transitioned from IV to oral antibiotics. Wound culture and catheter tip culture are noted. Blood cultures have been negative. 3. Hypotension. Blood pressures have improved after IV fluids and are stable. Her a.m. cortisol level was acceptable as well. I am not continuing her on daily hydrocortisone. She reports she stopped taking it in the outpatient setting and did not have the prescription and renewed. 4. History of clots. Maintained on Coumadin anticoagulation. INR is therapeutic. 5. Anemia of chronic renal failure and malignancy. Hemoglobin is acceptable. She continues on Aranesp and it will be managed in the outpatient hemodialysis unit. 6. Multiple myeloma with relapse. Gresham catheter was being used for chemotherapy. It was removed because of cellulitis. She is high risk for recurrent infections with access in the thigh. If we are unable to get a new port for chemotherapy, most likely her hemodialysis catheter will need to be used for concurrent chemotherapy administration. She will follow up with vascular surgery in regards to access. DISPOSITION: The patient is stable for discharge from nephrology point of view with followup in the hemodialysis unit on 12/25/2019.
[2019-12-25] MEDS ORDERED: LevoFLOXacin 500 MG TABLET PO SCH (20:00)
== END 2019-12-24 14:35 | disposition home or self-care (01) | DRG 314 ==
LOC: M ED 13:17 → M ED INP 19:51 → ENRESERV 21:45 → M MSPAV 23:10
PROVIDERS: ADMIT General Practice; ATTEND Internal Medicine
PROC: 5A1D70Z Performance of Urinary Filtration, Intermittent, Less than 6 Hours Per Day (ICD-10-PCS; 2019-12-22)
PROC: 06PY33Z Removal of Infusion Device from Lower Vein, Percutaneous Approach (ICD-10-PCS; principal; 2019-12-22 11:33)
DX: T82.7XXA Infection and inflammatory reaction due to other cardiac and vascular devices, implants and grafts, initial encounter (principal); N18.6 End stage renal disease; K50.90 Crohn's disease, unspecified, without complications; L03.115 Cellulitis of right lower limb; C90.02 Multiple myeloma in relapse; E27.40 Unspecified adrenocortical insufficiency; N25.81 Secondary hyperparathyroidism of renal origin; Z94.84 Stem cells transplant status; Z79.01 Long term (current) use of anticoagulants; Z99.2 Dependence on renal dialysis; Z93.2 Ileostomy status; Z86.73 Personal history of transient ischemic attack (TIA), and cerebral infarction without residual deficits; Z79.899 Other long term (current) drug therapy; I95.89 Other hypotension; D63.1 Anemia in chronic kidney disease; D63.0 Anemia in neoplastic disease; E03.9 Hypothyroidism, unspecified; Z88.8 Allergy status to other drugs, medicaments and biological substances

== ENCOUNTER → 2019-12-27 | Outpatient (CLI) | payer MEDICARE, OTHER ==
[~2019-12-27] MED LIST changes: +DOXY100T PO; +LEVA1TAB2 PO; +VITA1CHW7 PO
[2019-12-27 12:24] LABS: INR 2.78; PROTHROMBIN TIME 29.2 SECONDS (11.8-14.0)
== END ==
LOC: M PLALAB 09:17
PROVIDERS: ATTEND Family Medicine
DX: Z79.01 Long term (current) use of anticoagulants (principal)

== ENCOUNTER 2019-12-31 13:00 | Outpatient (RCR) | payer MEDICARE, OTHER | END 2020-01-01 | LOC: M PT 13:00 | PROVIDERS: ATTEND Internal Medicine Medical Oncology | DX: Z51.89 Encounter for other specified aftercare (principal); M25.512 Pain in left shoulder ==

== ENCOUNTER → 2020-01-05 | Outpatient (CLI) | payer MEDICARE, OTHER ==
[2020-01-05 12:26] LABS: INR 2.28; PROTHROMBIN TIME 24.9 SECONDS (11.8-14.0)
== END ==
LOC: M PLALAB 09:35
PROVIDERS: ATTEND Family Medicine
DX: Z79.01 Long term (current) use of anticoagulants (principal)

== ENCOUNTER → 2020-01-19 | Outpatient (CLI) | payer MEDICARE, OTHER ==
[2020-01-19 13:56] LABS: INR 1.47; PROTHROMBIN TIME 17.6 SECONDS (11.8-14.0)
== END ==
LOC: M PLALAB 09:29
PROVIDERS: ATTEND Family Medicine
DX: Z79.01 Long term (current) use of anticoagulants (principal)

== ENCOUNTER → 2020-01-24 | Outpatient (CLI) | payer MEDICARE, OTHER ==
[2020-01-24 11:53] LABS: INR 2.73; PROTHROMBIN TIME 28.8 SECONDS (11.8-14.0)
== END ==
LOC: M PLALAB 09:13
PROVIDERS: ATTEND Family Medicine
DX: Z79.01 Long term (current) use of anticoagulants (principal)

== ENCOUNTER 2020-01-28 13:00 | Outpatient (RCR) | payer MEDICARE, OTHER | END 2020-02-01 | LOC: M PT 13:00 | PROVIDERS: ATTEND Internal Medicine Medical Oncology | DX: Z51.89 Encounter for other specified aftercare (principal); M25.512 Pain in left shoulder ==

== ENCOUNTER → 2020-01-31 | Outpatient (CLI) | payer MEDICARE, OTHER ==
[2020-01-31 11:13] LABS: INR 1.76; PROTHROMBIN TIME 20.3 SECONDS (11.8-14.0)
== END ==
LOC: M PLALAB 09:17
PROVIDERS: ATTEND Family Medicine
DX: Z79.01 Long term (current) use of anticoagulants (principal)

== ENCOUNTER 2020-02-07 07:01 | Day surgery (SDC) | payer MEDICARE, OTHER ==
[~2020-02-07] VITALS: Ht 162.6 cm; Wt 50.3 kg
[~2020-02-07 07:01] MED LIST changes: +NS 1,000 ML IV ONE; +ceFAZolin SOD 2 GM in IV 1 EA IV ONE
[2020-02-07 08:07] LABS: INR 0.92; PROTHROMBIN TIME 12.1 SECONDS (11.8-14.0)
[2020-02-07] MEDS ORDERED: LIDOCAINE 1% MDV INJ 50 ML VIAL As Ordered ONE (11:31)
[2020-02-07] MEDS ORDERED: HEPARIN SOD (PORCINE) 5000 UNITS/ML VIAL (J1644 PER 1000UNITS) As Ordered ONE ×2 (11:31→12:23)
[2020-02-07] MEDS ORDERED: ePHEDrine SULFATE 25 MG/5 ML(5MG/ML) SYRINGE As Ordered ONE (12:21)
[2020-02-07] MEDS ORDERED: PHENYLephrine HCL 500 MCG/5 ML (100MCG/ML) SYRINGE (J2370) As Ordered ONE ×3 (12:21→13:14)
[2020-02-07] MEDS ORDERED: dexameTHASONE 4 MG/ML 1ML VIAL (J1100 PER 1MG) As Ordered ONE (12:21)
[2020-02-07] MEDS ORDERED: ONDANSETRON 4MG/2ML VIAL (J2405) As Ordered ONE (12:21)
[2020-02-07] MEDS ORDERED: propofoL 200 MG/20 ML VIAL As Ordered ONE (12:24)
[2020-02-07] MEDS ORDERED: fentaNYL 100 MCG/2 ML INJECTION (J3010) As Ordered ONE ×2 (12:24→14:09)
[2020-02-07] MEDS ORDERED: LIDOCAINE 2% INJ 100 MG/5 ML SDV (FOR ANES.) As Ordered ONE (12:24)
[2020-02-07] MEDS ORDERED: MIDAZOLAM INJ 2 MG/2 ML VIAL (J2250) As Ordered ONE (12:24)
[2020-02-07] MEDS ORDERED: ACETAMINOPHEN 1000MG 100ML IV BTL (OFIRMEV) (J0131 PER 10MG) As Ordered ONE (12:54)
[2020-02-07] MEDS ORDERED: OXYC1TAB23 PO (14:43)
--- NOTE | 2020-02-07 14:45 | ROOPDOC ---
[facility] Report Of Operation Report of Operation DATE OF PROCEDURE: 02/07/20 PREPROCEDURE DIAGNOSES: End stage renal disease on hemodialysis. POSTPROCEDURE DIAGNOSES: Same. PROCEDURE: Right brachial artery to axillary vein artegraft placement SURGEON: Maximiliano Granger MD ANESTHESIA: LMA and local. INDICATION FOR PROCEDURE: This is a very pleasant 74-year-old patient's with end-stage renal disease on hemodialysis currently using a right IJ PermCath. At this point, the patient is such a difficult AV access patient, and she is using her right IJ PermCath for both chemotherapy and also for dialysis. This is certainly not ideal, I would like her to have a separate AV access for dialysis. She does not have an option for autologous access, and she has a failed left brachial axillary access with scarring of the axillary vein making this less than ideal for AV access placement. On the right, she's had a huge soft tissue resection over the upper bicep and lower shoulder from melanoma, and ideally we would like to avoid this area as well, but at this point, it is been long enough and I think it suitable to place a graft from the right brachial artery to the right axillary vein. Risks benefits and alternatives were explained and she was agreeable to proceed. Informed consent was obtained. REPORT OF OPERATION: The patient was brought to the operating room in stable condition and placed supine on the OR table. Anesthesia and antibiotics were administered without consultation. Her right upper extremity and axilla were prepped and draped in a sterile fashion. A timeout was performed. Ioban was placed over the exposed skin prior to making surgical incisions. Local anesthesia was admitted to skin and subcutaneous tissue over the brachial artery just proximal to the antecubital crease and a longitudinal incision was made over the brachial artery pulse and carried down to the subcutaneous tissue with Bovie cautery. Sharp dissection was used to open the brachial artery sheath and the artery was skeletonized proximally and distally. A small branch was clipped and Vesseloops were placed proximally and distally. We then palpated the axillary artery pulse in the axilla made an incision over this artery after anesthetizing with local anesthesia. This was carried down to the subcutaneous tissues Bovie cautery. Upon encountering the axillary vein, it was skeletonized proximally and distally and Vesseloops were placed distally and a bulldog clamp was selected to clip proximally. A tunneler was used to create a tunnel from the brachial artery incision to the axillary vein incision. The Artegraft was appropriate prepared and flushed, and then marked to keep orientation. We then beveled one end to a 5 mm diameter opening and the cut edge was oversewn with 6- 0 Prolene suture. We then tunneled the graft with a tunneler, with a 5 mm tapered and towards the arterial side. The tunneler was then removed. We did arterial anastomosis first. Vesseloops were secured on the brachial artery and a 5 mm arteriotomy was made and the Artegraft was anastomosed in end-to-side fashion with 6-0 Prolene suture. Before the final sutures are placed, the clamp was placed on the graft and the inflow and outflow artery were flushed and the anastomosis was irrigated with heparinized saline. We then placed the final sutures and flow was restored to the hand. Good hemostasis was noted. The clamp was left on the graft to prevent the graft from clotting wall doing the venous anastomosis. We irrigated the graft with heparinized saline. We then beveled the end of the graft for a long beveled to make a long venous graft anastomosis to improve her outflow. The bulldog clamp was placed proximally on the vein and the Vesseloops were secured distally and along venotomy was made and the graft was anastomosis in end-to-side fashion with running 6-0 Prolene suture. Before the final sutures are placed, we flushed the inflow and outflow of the graft and also flushed blood through from the arterial side. We irrigated with heparinized saline and place her final sutures and then flow was restored through the veins and the graft. Doppler confirm good flow through the graft with no signs of outflow obstruction. There is also good flow in the brachial artery distal to the anastomosis. There was a palpable radial pulse and a biphasic signal over the palmar arch with flow fully open through the graft. We irrigated both incisions with copious amounts of saline. Local anesthesia was administered around the nerves that were carefully preserved during dissection of the axi llary vein, and we then carefully close the deep tissues avoiding the nervous structures in the axilla. We closed the fashion 2 layers with running 4-0 Prolene suture. We closed the dermal layer with interrupted 4-0 Vicryl sutures. We close the skin with a running subcuticular Monocryl suture. At the brachial artery incision, after copious irrigation, we close the deep tissue with running 4-0 Vicryl suture. We closed the deep dermal layer with a running 4-0 Vicryl suture. We close the skin with a running 4-0 subcuticular Monocryl suture. Both incisions were clean and dried Mastisol and Steri-Strips replace the length of the incisions they were covered with dry gauze and Tegaderms and the patient was allowed to awaken from anesthesia was taken to recovery in stable condition. She tolerated the procedure and anesthesia well and there were no complications. ESTIMATED BLOOD LOSS: Approximately 35 mL. COMPLICATIONS: None. PLAN: Our plan is to see the patient back in a week to check her incisions and check her graft flow. We would like her to be able to use her graft as soon as possible, but needs to heal in well and her incisions need to heal also. She can resume her home diet medications including her Coumadin. We appreciate the opportunity to participate in the care of this patient. MAXIMILIANO GRANGER MD Feb 07, 2020 14:45
[2020-02-07] MEDS ORDERED: ONDANSETRON 4MG/2ML VIAL (J2405) IV PRN (15:00)
[2020-02-07] MEDS ORDERED: oxyCODONE 5MG TAB PO PRN (15:00)
[2020-02-07] MEDS ORDERED: NS 1,000 ML IV SCH (15:00)
[2020-02-07 15:50] VITALS: BP 112/61
== END 2020-02-07 16:02 | disposition home or self-care (01) ==
LOC: M SDC 07:01
PROVIDERS: ATTEND Surgery Vascular Surgery
DX: N18.6 End stage renal disease (principal); E03.9 Hypothyroidism, unspecified; I73.9 Peripheral vascular disease, unspecified; K50.90 Crohn's disease, unspecified, without complications; K86.1 Other chronic pancreatitis; D64.9 Anemia, unspecified; C90.00 Multiple myeloma not having achieved remission; G62.9 Polyneuropathy, unspecified; M12.9 Arthropathy, unspecified; M54.5 Low back pain; M81.0 Age-related osteoporosis without current pathological fracture; Z79.899 Other long term (current) drug therapy; Z79.01 Long term (current) use of anticoagulants; Z79.52 Long term (current) use of systemic steroids; Z86.73 Personal history of transient ischemic attack (TIA), and cerebral infarction without residual deficits; Z88.1 Allergy status to other antibiotic agents; Z85.828 Personal history of other malignant neoplasm of skin; Z86.14 Personal history of Methicillin resistant Staphylococcus aureus infection; Z87.81 Personal history of (healed) traumatic fracture; Z87.891 Personal history of nicotine dependence; Z92.21 Personal history of antineoplastic chemotherapy; Z92.3 Personal history of irradiation; Z93.2 Ileostomy status; Z99.2 Dependence on renal dialysis
CPT/HCPCS: 36415; 36830; 84132; 85610; C1768; J0131; J0690; J1100; J1644; J2250; J2370; J2405; J3010

== ENCOUNTER 2020-02-09 16:44 | Emergency (ER) | payer MEDICARE, OTHER ==
[~2020-02-09] VITALS: Ht 162.6 cm; Wt 51.8 kg
[~2020-02-09 16:44] MED LIST changes: -NS 1,000 ML IV ONE; +OXYC1TAB23 PO; -ceFAZolin SOD 2 GM in IV 1 EA IV ONE
[2020-02-09 17:53] LABS: BASO % 0.2 % (0.0-1.0); HEMATOCRIT 29.2 % (36.0-47.0); HEMOGLOBIN 9.7 g/dl (12.0-15.5); LYMPH # 1.5 10^3/uL (1.5-5.0); LYMPH % 23.4 % (24.0-44.0); MEAN CORPUSCULAR HEMOGLOBIN 34.2 pg (27.0-33.0); MEAN CORPUSCULAR HGB CONC 33.2 g/dl (32.0-36.5); MEAN CORPUSCULAR VOLUME 102.8 fl (80.0-96.0); MONO # 0.7 10^3/uL (0.0-0.8); MONO % 10.1 % (0.0-5.0); NEUTROPHILS # 4.3 10^3/uL (1.5-8.5); NEUTROPHILS % 65.5 % (36.0-66.0); PLATELET COUNT, AUTOMATED 192 10^3/uL (150-450); RED BLOOD COUNT 2.84 10^6/uL (4.00-5.40); WHITE BLOOD COUNT 6.5 10^3/uL (4.0-10.0)
[2020-02-09 18:01] LABS: ALBUMIN 3.2 GM/DL (3.2-5.2); ALT/SGPT 13 U/L (12-78); BILIRUBIN,DIRECT 0.2 MG/DL (0.0-0.2); BILIRUBIN,TOTAL 0.9 MG/DL (0.2-1.0); BLOOD UREA NITROGEN 29 MG/DL (7-18); CALCIUM LEVEL 8.7 MG/DL (8.8-10.2); CARBON DIOXIDE LEVEL 29 MEQ/L (21-32); CHLORIDE LEVEL 101 MEQ/L (98-107); CK-MB VALUE MASS < 1.0 NG/ML (<3.6); CPK CREATINE PHOSPHOKINASE 46 U/L (26-192); CREATININE FOR GFR 3.16 MG/DL (0.55-1.30); GLOMERULAR FILTRATION RATE 15.4 (>39); GLUCOSE, FASTING 89 MG/DL (70-100); LIPASE 367 U/L (73-393); MB/CK RELATIVE INDEX 2.17 (< OR =4); NT-PRO BNP 1353 PG/ML (<125); SODIUM LEVEL 139 MEQ/L (136-145); TOTAL PROTEIN 6.1 GM/DL (6.4-8.2); TROPONIN I < 0.02 NG/ML (< 0.10)
--- NOTE | 2020-02-09 18:24 | REP ---
CHEST, SINGLE VIEW: COMPARISON: 11/27/2019 Interstitial prominence is chronic and unchanged. No new infiltrate is seen. Heart is not enlarged. There is calcification of the thoracic aorta. Mediastinal silhouette is unchanged. Metallic clips are seen in the right axilla. There is a right central venous catheter unchanged. IMPRESSION: Stable chronic findings without acute infiltrate. Electronically Signed by Justin Ugalde MD 02/10/2020 11:54 A
[2020-02-09 18:50] LABS: PROTHROMBIN TIME 12.9 SECONDS (11.8-14.0)
[2020-02-09 18:51] LABS: PARTIAL THROMBOPLASTIN TIME 26.3 SECONDS (25.0-38.4)
[2020-02-09] MEDS ORDERED: ISOVUE-370 76% 100ML VIAL (Q9967) As Ordered ONE (18:55)
[2020-02-09] MEDS ORDERED: PERCOCET 5MG/325MG TAB PO ONE (19:00)
--- NOTE | 2020-02-09 19:27 | ECGEPIP ---
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
--- NOTE | 2020-02-09 19:45 | REPVR ---
PROCEDURE INFORMATION: Exam: CT Angiography Chest With Contrast Exam date and time: 02/09/2020 7:18 PM Age: 74 years old Clinical indication: Chest pain; Additional info: Shortness of breath TECHNIQUE: Imaging protocol: Computed tomographic angiography of the chest with intravenous contrast. 3D rendering: MIP and/or 3D reconstructed images were created by the technologist. Radiation optimization: All CT scans at this facility use at least one of these dose optimization techniques: automated exposure control; mA and/or kV adjustment per patient size (includes targeted exams where dose is matched to clinical indication); or iterative reconstruction. Contrast material: ISOVUE 370; Contrast volume: 75 ml; Contrast route: IV; COMPARISON: CT ANGIO CHEST 11/25/2019 12:32 PM FINDINGS: Tubes, catheters and devices: Double-lumen central venous catheter is again noted. Pulmonary arteries: No pulmonary emboli. Aorta: There is no aneurysmal dilatation of the thoracic aorta or dissection. Calcified atheromatous plaques apparent.. Other veins: Multiple air bubbles are seen in the right axilla which could potentially be intravenous-suggest clinical correlation. Lungs: No lung consolidation. Pleural space: No pleural effusion. Heart: No cardiomegaly or pericardial effusion. Kidneys and ureters: No significant findings in the upper abdomen other than renal atrophy. Lymph nodes: No mediastinal or hilar lymphadenopathy. Bones/joints: Vertebroplasties are seen at the thoracolumbar junction and stable wedge compression fracture in the upper thoracic spine. Mottled appearance of the bone marrow consistent with patient's history of multiple myeloma. Soft tissues: Unremarkable. Other findings: Multiple surgical clips are seen in the abdomen and right axilla. IMPRESSION: No evidence of pulmonary emboli, pneumonia or congestive heart failure. Electronically signed by: Romi Clarke On 02/09/2020 19:45:20 PM
[2020-02-09 20:22] VITALS: BP 126/59
== END 2020-02-09 20:19 | disposition home or self-care (01) ==
LOC: EDBD 16:44 → M ED 17:44
DX: F41.0 Panic disorder [episodic paroxysmal anxiety] (principal); N28.9 Disorder of kidney and ureter, unspecified; C90.00 Multiple myeloma not having achieved remission; Z99.2 Dependence on renal dialysis; Z88.1 Allergy status to other antibiotic agents; Z79.899 Other long term (current) drug therapy; Z79.01 Long term (current) use of anticoagulants
CPT/HCPCS: 36415; 71045; 71275; 80048; 80076; 82550; 82553; 83690; 83880; 84484; 85025; 85610; 85730; 87040; 93005; 93041; 94760; 99285; Q9967

== ENCOUNTER → 2020-02-11 | Outpatient (CLI) | payer MEDICARE, OTHER | LOC: M PLALAB 09:33 | PROVIDERS: ATTEND Family Medicine | DX: Z53.9 Procedure and treatment not carried out, unspecified reason (principal); Z79.01 Long term (current) use of anticoagulants ==

== ENCOUNTER → 2020-02-17 | Outpatient (CLI) | payer MEDICARE, OTHER ==
[~2020-02-17] MED LIST changes: +VITA200012 PO
[2020-02-17 11:33] LABS: INR 1.54; PROTHROMBIN TIME 18.2 SECONDS (11.8-14.0)
== END ==
LOC: M PLALAB 02-16 09:10
PROVIDERS: ATTEND Family Medicine
DX: Z53.9 Procedure and treatment not carried out, unspecified reason (principal); Z79.01 Long term (current) use of anticoagulants

== ENCOUNTER → 2020-02-23 | Outpatient (CLI) | payer MEDICARE, OTHER ==
[~2020-02-23] MED LIST changes: -VITA200012 PO
[2020-02-23 11:54] LABS: INR 2.59; PROTHROMBIN TIME 27.6 SECONDS (11.8-14.0)
== END ==
LOC: M PLALAB 09:17
PROVIDERS: ATTEND Family Medicine
DX: Z79.01 Long term (current) use of anticoagulants (principal)

== ENCOUNTER → 2020-03-01 | Outpatient (CLI) | payer MEDICARE, OTHER ==
[~2020-03-01] MED LIST changes: +VITA200012 PO
[2020-03-01 10:53] LABS: INR 1.94; PROTHROMBIN TIME 21.9 SECONDS (11.8-14.0)
== END ==
LOC: M PLALAB 09:12
PROVIDERS: ATTEND Family Medicine
DX: Z51.81 Encounter for therapeutic drug level monitoring (principal); Z79.01 Long term (current) use of anticoagulants

== ENCOUNTER 2020-03-03 13:12 | Observation (INO) | payer MEDICARE, OTHER ==
[~2020-03-03] VITALS: Ht 162.6 cm; Wt 50.5 kg
[~2020-03-03 13:12] MED LIST changes: -VITA200012 PO
[2020-03-03] MEDS ORDERED: PERCOCET 5MG/325MG TAB PO ONE (13:45)
[2020-03-03 14:23] LABS: HEMATOCRIT 28.1 % (36.0-47.0); HEMOGLOBIN 9.1 g/dl (12.0-15.5); LYMPH # 0.4 10^3/uL (1.5-5.0); LYMPH % 6.5 % (24.0-44.0); MEAN CORPUSCULAR HGB CONC 32.4 g/dl (32.0-36.5); MEAN CORPUSCULAR VOLUME 108.1 fl (80.0-96.0); MONO # 0.1 10^3/uL (0.0-0.8); MONO % 1.4 % (0.0-5.0); NEUTROPHILS # 5.1 10^3/uL (1.5-8.5); NEUTROPHILS % 91.7 % (36.0-66.0); PLATELET COUNT, AUTOMATED 214 10^3/uL (150-450); WHITE BLOOD COUNT 5.6 10^3/uL (4.0-10.0)
[2020-03-03 14:34] LABS: INR 2.46; PROTHROMBIN TIME 26.5 SECONDS (11.8-14.0)
--- NOTE | 2020-03-03 14:38 | REP ---
REASON FOR EXAM: Dyspnea and cough. COMPARISON: 02/09/2020 The double lumen central venous catheter is unchanged. The technique utilized in obtaining the radiograph has magnified the cardiac silhouette and accentuated the interstitial markings. Cardiomediastinal silhouette is unchanged. The lung george are unchanged. No acute patchy parenchymal opacities or pleural effusions have developed. There is no change in the osseous structures. IMPRESSION: No significant change from the prior exam. Stable-appearing chronic changes. It should be stated that the costophrenic angles have not been included on this radiograph and followup to include the costophrenic angles is recommended if clinically relevant. Electronically Signed by Carmine Vaughn DO 03/03/2020 04:11 P
[2020-03-03] MEDS ORDERED: DEXA4TA PO ×2 (14:43→16:56)
[2020-03-03] MEDS ORDERED: SODIUM CHLORIDE 0.9% INJ 10 ML SYR IV PRN (14:45)
[2020-03-03 15:05] LABS: ALBUMIN 2.9 GM/DL (3.2-5.2); ALT/SGPT 18 U/L (12-78); BILIRUBIN,DIRECT 0.1 MG/DL (0.0-0.2); BILIRUBIN,TOTAL 0.7 MG/DL (0.2-1.0); BLOOD UREA NITROGEN 53 MG/DL (7-18); CALCIUM LEVEL 8.2 MG/DL (8.8-10.2); CARBON DIOXIDE LEVEL 22 MEQ/L (21-32); CHLORIDE LEVEL 105 MEQ/L (98-107); CK-MB VALUE MASS 1.1 NG/ML (<3.6); CPK CREATINE PHOSPHOKINASE 48 U/L (26-192); CREATININE FOR GFR 6.46 MG/DL (0.55-1.30); GLOMERULAR FILTRATION RATE 6.7 (>39); GLUCOSE, FASTING 125 MG/DL (70-100); MB/CK RELATIVE INDEX 2.29 (< OR =4); NT-PRO BNP 822 PG/ML (<125); POTASSIUM SERUM 4.6 MEQ/L (3.5-5.1); SODIUM LEVEL 138 MEQ/L (136-145); TROPONIN I < 0.02 NG/ML (< 0.10)
[2020-03-03] MEDS ORDERED: cefTRIAXone SOD 1 GM in D5W MINI-BAG PLUS 50 ML IV ONE ×2 (16:15→18:15)
[2020-03-03] MEDS ORDERED: VITA200012 PO (16:56)
[2020-03-03] MEDS ORDERED: ACETAMINOPHEN TAB 650MG DOSE (2X325MG) PO PRN (17:45)
[2020-03-03] MEDS ORDERED: CREON-24 CAPSULE PO PRN (18:00)
[2020-03-03] MEDS ORDERED: CREON-12 CAPSULE PO PRN (18:15)
[2020-03-03] MEDS: WARFARIN SOD 5 MG TAB PO SCH (18:47)
--- NOTE | 2020-03-03 19:07 | HPEPDOC ---
[facility] Medical History & Physical Date of Admission March 03, 2020 Date of Service: March 03, 2020 Attending Physician: JIMMY VARELA MD History and Physical CHIEF COMPLAINT: SOB History of Presenting illness: 74-year-old W with a history of IgG kappa Multiple myeloma initially diagnosed in 2008 with a relapse in 2018, s/p hematopoietic stem cell transplant in 2008, currently on 3rd line daratumumab + dexamethasone, history of myeloma kidney now ESRD on HD MWF, with HD on Sat when she has immunotherapy, Crohn's disease s/p total colectomy w/ ileostomy, TIA, thromboses on chronic warfarin, and chronic anemia and chronic intermittent shortness of breath, unexplained by EF on or echocardiogram, followed by Dr. Scott in cardiology and by Dr. Mckenzie in nephrology, that has previously improved with pRBC transfusion who presented to the ED with worsening shortness of breath for which her oncologist Dr. Jessy Saab recommended admission recommending 1u of pRBCs and evaluation for possible infection and antibiotics. She otherwise reports no fever, chills, cough, chest pain, abdominal pain, poor PO, diarrhea, constipation, dizziness, contact with many people or LE edema or orthopnea. In the ED, she was hemodynamically stable and afebrile, and breathing comfortably on 2L (at home is on 2.5L). Work up was notable for WBC 5.6, Hgb 9.1, Bun 53, Cr 6.46, lactate 3.2, proBNP 822 and +UA with an active sediment, while CXR was grossly wnl. She is now being admitted to medicine with plan for 1u pRBC and treatment of a UTI, as well evaluation by PT for safe home discharge as she lives alone. PAST MEDICAL HISTORY: -IgG kappa Multiple myeloma initially diagnosed in 2008 with a relapse in 2018. Status post hematopoietic stem cell transplant in 2008, currently receiving daratumumab -Peripheral neuropathy affecting the lower extremities -ESRD (MWF) and Sat when she receives onc treatments -Vascular access complications status post closed left AV fistula, right AV fistula placement, bruising at left fistula, right leg permacath dialysis access infection and removal currently with a R chest port that is in use for both HD and oncology treatments -She has a new right arm AV graft that has not yet matured for use, managed by Dr. 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 -Postherpetic neuralgia affecting the left flank. -Crohn's disease status post colectomy and ostomy -TIA. -Hypothyroidism PAST SURGICAL HISTORY: -Status post colectomy. -Various vascular procedures as described above -Vertebroplasty. -Status post appendectomy. -Status post resection of basal cell carcinoma. -Status post resection of right arm melanoma SOCIAL HISTORY: She quit smoking the 80s. She was in the [place] Lives alone Daughter lives a few blocks away Walks mostly with a cane but does have a walker FAMILY HISTORY: CAD Diabetes ALLERGIES: Please see below. Vancomycin REVIEW OF SYSTEMS: 12 point ROS was completed and was as noted in HPI, or otherwise negative. HOME MEDICATIONS: Please see below. PHYSICAL EXAMINATION: VITAL SIGNS: Please see below. GENERAL APPEARANCE: Elderly lady in NAD HEENT: Mildly plethoric face, no flushing of erythema. Normocephalic, atr aumatic, mucous membranes moist, no evidence mucositis CARDIOVASCULAR:, RRR. No murmurs, rubs or gallops LUNGS: Clear to auscultation bilaterally, breathing comfortably on 2L ABDOMEN: Normoactive sounds, soft , NTND ACCESS: Dialysis catheter at the right upper chest, with a c/d/i dressing with no surrounding erythema or drainage. Nontender to touch. has palpable thrill in R AV fistula and has some hardware still present at the left upper arm. EXTREMITIES: No have lower extremity edema, WWP INTEGUMENT: No flushing, rashes, petechiae or pallor NEUROLOGICAL: Cranial nerves II to 12 are grossly intact. Speech is not dysarthric PSYCHIATRIC: Alert and oriented to person, place and time, able to understand and follow commands LABORATORY DATA: See below. as summarized above IMAGING: No significant change from the prior exam. Stable-appearing chronic changes. It should be stated that the costophrenic angles have not been included on this radiograph and followup to include the costophrenic angles is recommended if clinically relevant. MICROBIOLOGY: Please see below. ASSESSMENT: 74-year-old W with recurrent multiple myeloma on daratumumab/dex, ESRD on HD, hypothyroidism, superior vena cava thrombus, Crohn's disease and chronic intermittent dyspnea who will be admitted for evaluation of dyspnea and treatment of a UTI. PLAN: 1. Dyspnea -Prior TTE was wnl and unable to explain the dyspnea symptoms. EKS was non ischemic, trop negative, proBNP not impressive and exam euvolemic. Unlikely to be cardiac -Per Dr. Saab, will give 1u pRBCs and monitor for improvement of possible symp tomatic anemia -Has a remote smoking history without a diagnosis of COPD, but on home O2, on chronic steroids --> will continue the steroids at home dose -CXR without evidence of an acute process including a PNA -Hypoxemia is at baseline, will monitor symptoms -PT/OT evaluation 2. UTI: +UA, lactate of 3.2 -empiric ceftriaxone -follow up urine culture -blood cultures 3. IgA [place] MM -f/u w Oncology as scheduled -continue home dexamethasone 4. ESRD on HD -consult nephrology 5. 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 6. Hypothyroidism -Continue with levothyroxine 7. Crohn's with history of colectomy with an ileostomy -continue home supplements and creon DVT prophylaxis not needed as the patient is chronically on warfarin. Diet: regular Disposition: Likely home in less than 2 midnights. medsurg with PT/OT eval Vital Signs Vital Signs Date Time Temp Pulse Resp B/P (MAP) Pulse Ox O2 Delivery O2 Flow Rate FiO2 03/03/20 17:16 146/67 (93) 03/03/20 17:15 74 22 99 Nasal Cannula 2.0 03/03/20 15:12 97.6 Laboratory Data Labs 24H Laboratory Tests 2 03/03/20 14:05: Immature Granulocyte % (Auto) 0.4, Neutrophils (%) (Auto) 91.7H, Lymphocytes (%) (Auto) 6.5L, Monocytes (%) (Auto) 1.4, Eosinophils (%) (Auto) 0.0, Basophils (%) (Auto) 0.0, Neutrophils # (Auto) 5.1, Lymphocytes # (Auto) 0.4L, Monocytes # (Auto) 0.1, Eosinophils # (Auto) 0.0, Basophils # (Auto) 0.0, Nucleated Red Blood Cells % (auto) 0.0, Prothrombin Time 26.5H, Prothromb Time International Ratio 2.46, Anion Gap 11, Glomerular Filtration Rate 6.7L, Lactic Acid Level 3.2*H, Calcium Level 8.2L, Total Bilirubin 0.7, Direct Bilirubin 0.1, Aspartate Amino Transf (AST/SGOT) 11, Alanine Aminotransferase (ALT/SGPT) 18, Alkaline Ph osphatase 81, Total Creatine Kinase 48, Creatine Kinase MB 1.1, Creatine Kinase MB Relative Index 2.29, Troponin I < 0.02, RT-Uyk-Q-Type Natriuretic Peptide 822H, Total Protein 6.0L, Albumin 2.9L, Albumin/Globulin Ratio 0.94L, Thyroid Stimulating Hormone (TSH) 3.520 03/03/20 14:22: POC pH (Misc Panel) 7.440, POC Base Excess (Misc Panel) -4.0L, POC Saturated Percent O2 (Misc) 99H, POC pO2 (Misc Panel) 131.0H, POC pCO2 (Misc Panel) 29.8L, POC HCO3 (Misc Panel) 20.2L, POC Total CO2 (Misc Panel) 21.0L 03/03/20 15:42: Urine Color YELLOW, Urine Appearance HAZY, Urine pH 8.0, Urine Specific [place] 1.014, Urine Protein 2+H, Urine Glucose (UA) 1+H, Urine Ketones NEGATIVE, Urine Blood NEGATIVE, Urine Nitrite NEGATIVE, Urine Bilirubin NEGATIVE, Urine Urobilinogen 0.2, Urine Leukocyte Esterase 2+H, Urine WBC (Auto) 24H, Urine RBC (Auto) 1, Urine Hyaline Casts (Auto) 0, Urine Bacteria (Auto) 1+H, Urine Squamous Epithelial Cells 6, Urine Transitional Epithelial Cells <1, Urine Sperm (Auto) CBC/BMP Laboratory Tests 03/03/20 14:05 Microbiology Microbiology 03/03/20 Urine Culture, Received Pending 03/03/20 Blood Culture, Received Pending 03/03/20 Blood Culture, Received Pending Home Medications Scheduled Cholecalciferol (Vitamin D3) (D3-2000) 50 Mcg Capsule, 2,000 UNITS PO DAILY Cyclosporine (Restasis) 0.05% Droperette, 1 DROP OU BID Dexamethasone (Dexamethasone) 4 Mg Tablet, 12 MG PO ASDIRECTED TAKES ON SUNDAYS, ALTERNATING BETWEEN 12 MG AND 4 MG. Dexamethasone (Dexamethasone) 4 Mg Tablet, 4 MG PO ASDIRECTED TAKES ON SUNDAYS, ALTERNATING BETWEEN 12 MG AND 4 MG Levothyroxine Sodium (Levoxyl) 50 Mcg Tablet, 50 MCG PO DAILY Lipase/Protease/Amylase (Pratibha Pandey 36,000 Units Capsule) 1 Each Capsule., 2 CAP PO WM Lipase/Protease/Amylase (Pratibha Pandey 36,000 Units Capsule) 1 Each Capsule., 1 CAP PO ASDIRECTED WITH SNACKS [place]-3 Fatty Acids/Fish Oil (Fish Oil 1,000 mg Capsule) 1 Each Capsule, 1,000 MG PO DAILY Warfarin Sodium (Warfarin Sodium) 5 Mg Tablet, 5 MG PO QPM Allergies Coded Allergies: vancomycin (Verified Allergy, Intermediate, RASH/ITCHING, 01/24/20) A-FIB/CHADSVASC A-FIB History Current/History of A-Fib/PAF?: No Current PO Anticoag Therapy: Yes JIMMY VARELA MD March 03, 2020 19:01
[2020-03-03] MEDS: POLYVINYL ALCOHOL OPHTH SOLN 15 ML(LIQUITEARS) OU SCH (21:00)
[2020-03-03] MEDS ORDERED: ENTER DRUG NAME HERE (PATIENT'S OWN MED) OU SCH (21:00)
[2020-03-03 22:00] VITALS: BP 189/83
[2020-03-03] MEDS: CREON-24 CAPSULE PO SCH (22:12)
--- NOTE | 2020-03-03 22:54 | ECGEPIP ---
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
[2020-03-03 23:10] VITALS: BP 137/67
[2020-03-03 23:25] VITALS: BP 139/68
[2020-03-04 00:10] VITALS: BP 152/82
[2020-03-04 01:12] VITALS: BP 152/80
[2020-03-04] MEDS: LEVOTHYROXINE 50MCG TABLET (0.05MG) PO SCH (05:53)
[2020-03-04 06:00] VITALS: BP 171/95
[2020-03-04 07:09] LABS: ALBUMIN 3.1 GM/DL (3.2-5.2); BILIRUBIN,TOTAL 0.9 MG/DL (0.2-1.0); CALCIUM LEVEL 8.6 MG/DL (8.8-10.2); CREATININE FOR GFR 6.76 MG/DL (0.55-1.30); GLOMERULAR FILTRATION RATE 6.4 (>39); MAGNESIUM LEVEL 1.8 MG/DL (1.8-2.4); POTASSIUM SERUM 4.9 MEQ/L (3.5-5.1); TOTAL PROTEIN 5.9 GM/DL (6.4-8.2)
[2020-03-04] MEDS: OMEGA-3 1000MG CAPSULE PO SCH (07:31)
[2020-03-04] MEDS: VITAMIN D 1,000 INTERNATIONAL UNITS TABLET PO SCH (07:31)
[2020-03-04] MEDS: CREON-24 CAPSULE PO SCH ×3 (07:31→17:40)
[2020-03-04] MEDS: POLYVINYL ALCOHOL OPHTH SOLN 15 ML(LIQUITEARS) OU SCH ×2 (07:32→19:56)
[2020-03-04] MEDS: SODIUM CHLORIDE 0.9% INJ 10 ML SYR IV SCH (08:05)
[2020-03-04] MEDS: CEPHALEXIN 500 MG CAP PO SCH ×2 (12:38→19:55)
[2020-03-04 14:00] VITALS: BP 127/56
--- NOTE | 2020-03-04 16:30 | CR ---
DATE OF CONSULTATION: 03/04/2020 REQUESTING PHYSICIAN: Dr. Tena Perales CONSULTING PHYSICIAN: Dr. Nelson REASON FOR CONSULTATION: Management of end-stage renal disease and dialysis. CHIEF COMPLAINT: The patient presented to the hospital with shortness of breath. HISTORY OF PRESENT ILLNESS: Yoana Escobedo is a 74-year-old female with past medical history of end-stage renal disease, on hemodialysis every Friday, Friday, Friday, and sometimes she has Friday, Friday, Friday when she is getting chemotherapy. She has history of IgG kappa multiple myeloma, currently in relapse since 2018. She is on third-line daratumumab and dexamethasone therapy. Multiple other comorbidities as mentioned below. She presented to the hospital yesterday with progressive shortness of breath. She was admitted under the hospitalist service, and this shortness of breath is usual for her whenever she is anemic, or if she gets more fluid removed during dialysis she gets short of breath. The patient was given packed red blood cells (PRBC) transfusion overnight. She reports that she is feeling better today. Nephrology service was called for help in the management of end-stage renal disease. I saw and evaluated the patient today morning at the bedside during hemodialysis. I had already arranged her hemodialysis, and she is tolerating the dialysis procedure well, and she reports that her shortness of breath is getting better. PAST MEDICAL HISTORY: 1. End-stage renal disease, on hemodialysis every Friday, Friday, Friday or Friday, Friday, Friday, depending upon her chemotherapy regimen. 2. History of IgG kappa multiple myeloma, diagnosed is 2008, status post hemopoietic stem cell transplant in 2008. She had a relapse in 2018. Currently getting daratumumab and dexamethasone, which is a third-line therapy. 3. She has peripheral neuropathy. 4. Secondary hyperparathyroidism. 5. Recurrent anemia. 6. 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 7. Crohn's disease status post colectomy and ileostomy status. 8. Transient ischemic attacks (TIAs). 9. Hypothyroidism. PAST SURGICAL HISTORY: 1. Status post colectomy. 2. Status post right internal jugular (IJ) tunneled hemodialysis catheter. 3. Status post right upper arm arteriovenous (AV) graft placement. 4. Status post vertebroplasty. 5. History of appendectomy in the past history. 6. History of resection of basal cell carcinoma and right arm melanoma. ALLERGIES: The patient is allergic to VANCOMYCIN. FAMILY HISTORY: No significant family history of end-stage renal disease requiring hemodialysis. SOCIAL HISTORY: The patient lives alone. She walks without help of a cane. She denies any illicit drug abuse. She quit smoking in the . REVIEW OF SYSTEMS: CONSTITUTIONAL: She denies any fevers or chills. EYES: She denies any blurry vision, double vision. ENT: She denies any dysphagia, odynophagia. CARDIOVASCULAR: She denies any chest pain or palpitation. RESPIRATORY: She reports shortness of breath, which is improving. GASTROINTESTINAL: She denies any nausea or vomiting. GENITOURINARY: She denies any dysuria or hematuria. MUSCULOSKELETAL: Denies any muscle aches and pains. SKIN: She denies any rashes or ulcers. HEMATOLOGY/ONCOLOGY: She reports of multiple myeloma, currently undergoing chemotherapy. CENTRAL NERVOUS SYSTEM: She denies any strokes or seizures. PSYCHIATRIC: She denies any depression or anxiety. All other review of systems is negative. PHYSICAL EXAMINATION: GENERAL: The patient is awake, alert, oriented times three, lying in bed getting hemodialysis done. VITAL SIGNS: Temperature is 98.4 degrees Fahrenheit, blood pressure 171/95, pulse 79, respiratory of 18, saturating 100% on nasal cannula at 2 liters. HEAD AND NECK: Extraocular is intact. Pupils equally round and reactive to light. Mucous membranes are moist. Neck is supple. There is no jugular venous distention (JVD). CARDIOVASCULAR: S1, S2, regular rate. No edema of the bilateral lower extremities. RESPIRATORY: Chest is clear to auscultation bilaterally. Bilateral equal air entry. No rales or rhonchi. She has a right IJ tunneled dialysis catheter, which is being used for dialysis. CARDIOVASCULAR: S1, S2, regular rate. No edema of the bilateral lower extremities. ABDOMEN: Soft. Positive bowel sounds. Nontender. No organomegaly. Right lower quadrant ileostomy was noted. MUSCULOSKELETAL: No clubbing or cyanosis. Pulses are 2+. CENTRAL NERVOUS SYSTEM: No focal deficit. Power is 5/5 in all extremities. SKIN: No rashes or ulcers. LABORATORY REVIEW: CBC showed WBC 5.6, hemoglobin 9.1, platelets are 214. INR is 2.4. Urinalysis showed 2+ protein 2+ leukocyte esterase, WBC were 24. BMP showed sodium 134, potassium 4.9, chloride 101, bicarbonate 23, BUN 68, creatinine is 6.7. Lactic acid initially was 3.4, which got better to 2. Magnesium is 1.8, albumin is 3.1. Microbiology: Blood cultures are pending. Urine cultures are pending. IMAGING STUDIES: A chest x-ray was done on arrival, which showed no significant change from the prior exam. CURRENT INPATIENT MEDICATIONS: The patient's medications were all reviewed by myself. She got one dose of IV ceftriaxone yesterday. She is on Tylenol, artificial tears. She has been started on Keflex 500 mg by mouth twice a day. She is on dexamethasone 4 mg by mouth every 14 days and 12 mg by mouth every 14 days. She is on heparin subcutaneous, levothyroxine 50 mcg by mouth daily, omega-3 capsules, Percocet one tablet as needed. She is getting pancreatic enzymes with meals, vitamin D 2000 units by mouth daily, and warfarin 5 mg by mouth daily. ASSESSMENT: A 74-year-old female with past medical history of multiple myeloma in relapse, end-stage renal disease on hemodialysis every Friday, Friday, Friday, hypothyroidism, Crohn disease, ileostomy status. PLAN: 1. End-stage renal disease. The patient last dialysis was on Friday. She is being dialyzed today. Ultrafiltration goal is around 700 mL as tolerated by her blood pressure. Next dialysis will be as per her regular schedule outpatient on Friday. 2. Dyspnea. It is a chronic issue. The patient usually gets dyspnea whenever she is anemic or she gets extra fluid removed during dialysis. She usually responds well to IV fluids and PRBC transfusion. She was given 1 unit of blood yesterday. She is feeling better. 3. Multiple myeloma, currently in relapse. Patient is getting the chemotherapy as outpatient. Management is as per hematology/oncology. 4. Urinary tract infection. The patient has elevated WBC and leukocyte esterase. She is currently empirically covered with one dose of ceftriaxone, and currently she is getting Keflex. Cultures are pending. 5. Crohn disease, ileostomy status. The patient is getting Creon supplement. Continue current dose. 6. Anemia and end-stage renal disease. Hemoglobin is 9.1. She is status post 1 unit of PRBC transfusion. Rest of the anemia management will be done as per outpatient. Transfuse as needed for hemoglobin 8 or below. Thank you for involving me in the care of this patient. I shall be happy to follow the patient along with you tomorrow morning if she stays in the hospital.
[2020-03-04] MEDS: WARFARIN SOD 5 MG TAB PO SCH (17:39)
--- NOTE | 2020-03-04 17:40 | IPNPDOC ---
Text Note Date of Service The patient was seen on 03/04/20. NOTE PHYSICAL EXAMINATION: VITAL SIGNS: Please see below. GENERAL APPEARANCE: Elderly lady in NAD HEENT: Plethoric face, no flushing of erythema. Normocephalic, atraumatic, mucous membranes moist, no evidence mucositis CARDIOVASCULAR:, RRR. No murmurs, rubs or gallops LUNGS: Clear to auscultation bilaterally, breathing comfortably on 2L ABDOMEN: Normoactive sounds, soft , NTND ACCESS: Dialysis catheter at the right upper chest, with a c/d/i dressing with no surrounding erythema or drainage. Nontender to touch. has palpable thrill in R AV fistula and has some hardware still present at the left upper arm. EXTREMITIES: No have lower extremity edema, WWP INTEGUMENT: No flushing, rashes, petechiae or pallor NEUROLOGICAL: Cranial nerves II to 12 are grossly intact. Speech is not dysarthric PSYCHIATRIC: Alert and oriented to person, place and time, able to understand and follow commands LABORATORY DATA: See below. as summarized above IMAGING: No significant change from the prior exam. Stable-appearing chronic changes. It should be stated that the costophrenic angles have not been included on this radiograph and followup to include the costophrenic angles is recommended if clinically relevant. MICROBIOLOGY: Please see below. ASSESSMENT: 74-year-old W with recurrent multiple myeloma on daratumumab/dex, ESRD on HD, hypothyroidism, superior vena cava thrombus, Crohn's disease and chronic intermittent dyspnea who will be admitted for evaluation of dyspnea and t reatment of a UTI. PLAN: 1. Dyspnea -Prior TTE was wnl and unable to explain the dyspnea symptoms. EKS was non ischemic, trop negative, proBNP not impressive and exam euvolemic. Unlikely to be cardiac -Per Dr. Saab' recommendation s/p 1u pRBCs with improvement in her dyspnea -Has a remote smoking history without a diagnosis of COPD, but on home O2, on chronic steroids -CXR without evidence of an acute process including a PNA -Hypoxemia is at baseline, will monitor symptoms -PT/OT evaluation 2. UTI: +UA, lactate of 3.2 -switched from ceftriaxone to keflex -follow up urine culture -blood cultures NGTD 3. 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 ESRD on HD -consulted nephrology, had HD today 5. 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 plethora 2/2 long standing steroid from cushingoid appearance --> will start with doppler neck US. She is therapeutic on warfarin, this would suggest treatment failure 7. Hypothyroidism -Continue with levothyroxine 8. Crohn's with history of colectomy with an ileostomy -continue home supplements and creon DVT prophylaxis not needed as the patient is chronically on warfarin. Diet: regular Disposition: Likely home in less than 2 midnights. medsurg with PT/OT eval VS,Roxy, I+O VS, Roxy, I+O Laboratory Tests 03/04/20 06:20 Vital Signs Date Time Temp Pulse Resp B/P (MAP) Pulse Ox O2 Delivery O2 Flow Rate FiO2 03/04/20 14:00 98.2 77 19 127/56 (79) 100 Room Air 03/04/20 08:00 3.0 I&O- Last 24 Hours up to 6 AM 03/04/20 06:00 Intake Total 450 ml Balance 450 ml JIMMY VARELA MD March 04, 2020 17:40
[2020-03-04] MEDS ORDERED: cefTRIAXone SOD 2 GM in D5W MINI-BAG PLUS 50 ML IV SCH (18:00)
--- NOTE | 2020-03-04 21:55 | REPVR ---
PROCEDURE INFORMATION: Exam: US Duplex Upper Extremity Veins Exam date and time: 03/04/2020 9:31 PM Age: 74 years old Clinical indication: Pain; Arm, upper; Bilateral; Prior surgery; Surgery date: <1 month; Surgery type: RT creation of fistula; Additional info: HX of thrombosis at jxn of svn and subclavian w/ plethora TECHNIQUE: Imaging protocol: Real-time Duplex ultrasound of the Upper Extremities with 2-D alexander scale, color Doppler flow and spectral waveform analysis with image documentation. Complete exam focused on the bilateral upper extremity veins. COMPARISON: No relevant prior studies available. FINDINGS: Right deep veins: The right jugular vein demonstrates normal color flow and Doppler waveform tracings. The right subclavian vein demonstrates no flow. A right axillary arterial venous fistula is noted. Left deep veins: The left jugular , subclavian and axillary veins demonstrate normal Doppler waveform tracings and normal color flow. Left superficial veins: There is a thrombosed left axillary fistula. Soft tissues: Unremarkable. IMPRESSION: 1. Occluded right subclavian vein. 2. Patent right axillary arterial venous fistula. 3. Thrombosed left axillary fistula. 4. Patent left jugular, subclavian and axillary veins. Electronically signed by: Michael Garcia On 03/04/2020 21:54:48 PM
[2020-03-04 22:00] VITALS: BP 135/66
[2020-03-05] MEDS: LEVOTHYROXINE 50MCG TABLET (0.05MG) PO SCH (05:50)
[2020-03-05 06:00] VITALS: BP 134/66
[2020-03-05 06:42] LABS: HEMATOCRIT 33.4 % (36.0-47.0); HEMOGLOBIN 10.8 g/dl (12.0-15.5); MEAN CORPUSCULAR HEMOGLOBIN 33.6 pg (27.0-33.0); MEAN CORPUSCULAR HGB CONC 32.3 g/dl (32.0-36.5); PLATELET COUNT, AUTOMATED 195 10^3/uL (150-450); RED BLOOD COUNT 3.21 10^6/uL (4.00-5.40)
[2020-03-05 07:05] LABS: CALCIUM LEVEL 8.4 MG/DL (8.8-10.2); CREATININE FOR GFR 4.58 MG/DL (0.55-1.30); POTASSIUM SERUM 4.7 MEQ/L (3.5-5.1)
[2020-03-05] MEDS: SODIUM CHLORIDE 0.9% INJ 10 ML SYR IV SCH (08:16)
[2020-03-05] MEDS: POLYVINYL ALCOHOL OPHTH SOLN 15 ML(LIQUITEARS) OU SCH (08:30)
[2020-03-05] MEDS: CEPHALEXIN 500 MG CAP PO SCH (08:30)
[2020-03-05] MEDS: VITAMIN D 1,000 INTERNATIONAL UNITS TABLET PO SCH (08:30)
[2020-03-05] MEDS: OMEGA-3 1000MG CAPSULE PO SCH (08:30)
[2020-03-05] MEDS: CREON-24 CAPSULE PO SCH ×3 (08:30→14:27)
--- NOTE | 2020-03-05 12:03 | IPNPDOC ---
Text Note Date of Service The patient was seen on 03/05/20. NOTE Subjective: -Feels well no complaints PHYSICAL EXAMINATION: VITAL SIGNS: Please see below. GENERAL APPEARANCE: Elderly lady in NAD HEENT: Plethoric face, no flushing of erythema. Normocephalic, atraumatic, MMM CARDIOVASCULAR:, RRR. No murmurs, rubs or gallops LUNGS: Clear to auscultation bilaterally, breathing comfortably on 2L ABDOMEN: Normoactive sounds, soft , NTND ACCESS: Dialysis catheter at the right upper chest, with a c/d/i dressing with no surrounding erythema or drainage. Nontender to touch. has palpable thrill in R AV fistula EXTREMITIES: No have lower extremity edema, WWP INTEGUMENT: No flushing, rashes, petechiae or pallor NEUROLOGICAL: Cranial nerves II to 12 are grossly intact. Speech is not dysarthric PSYCHIATRIC: Alert and oriented to person, place and time, able to understand and follow commands LABs: reviewed WBC 7 Hgb 10.1 K4.7 IMAGING: CXR: No significant change from the prior exam. Stable-appearing chronic changes. It should be stated that the costophrenic angles have not been included on this radiograph and followup to include the costophrenic angles is recommended if clinically relevant. US Duplex Upper Extremity Veins: Right deep veins: The right jugular vein demonstrates normal color flow and Doppler waveform tracings. The right subclavian vein demonstrates no flow. A right axillary arterial venous fistula is noted. Left deep veins: The left jugular , subclavian and axillary veins demonstrate normal Doppler waveform tracings and normal color flow. Left superficial veins: There is a thrombosed left axillary fistula. Soft tissues: Unremarkable. IMPRESSION: 1. Occluded right subclavian vein. 2. Patent right axillary arterial venous fistula. 3. Thrombosed left axillary fistula. 4. Patent left jugular, subclavian and axillary veins. MICROBIOLOGY: Please see below. ASSESSMENT: 74-year-old W with recurrent multiple myeloma on daratumumab/dex, ESRD on HD, hypothyroidism, superior vena cava thrombus, Crohn's disease and chronic intermittent dyspnea who is admitted for evaluation of dyspnea and treatment of a UTI. PLAN: 1. Dyspnea -Prior TTE was wnl and unable to explain the dyspnea symptoms. EKS was non ischemic, trop negative, proBNP not impressive and exam euvolemic. Unlikely to be cardiac -Per Dr. Saba' recommendation s/p 1u pRBCs with improvement in her dyspnea -Has a remote smoking history without a diagnosis of COPD, but on home O2, on chronic steroids -CXR without evidence of an acute process including a PNA -Hypoxemia is at baseline, will monitor symptoms -PT/OT evaluation -US venous doppler US with occluded right subclavian 2. UTI: +UA, lactate of 3.2 -Discontinue keflex, UCx was ultimately read as negative -blood cultures NGTD 3. IgA [place] MM -f/u w Oncology as scheduled -continue home dexamethasone -Will call Dr. Saab about facial plethora and history of UE thromboses to understand chronicity of events 4. ESRD on HD -consulted nephrology, had HD today 5. 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 plethora 2/2 long standing steroid from cushingoid appearance -->s/p doppler neck US with RUE occluded subclavian. Therapeutic on warfarin, will speak with Dr. Saab to understand the chronicity of events. 7. Hypothyroidism -Continue with levothyroxine 8. Crohn's with history of colectomy with an ileostomy -continue home supplements and creon DVT prophylaxis not needed as the patient is chronically on warfarin. Diet: regular Disposition: medsurg with PT/OT eval VS,Fishbone, I+O VS, Fishbone, I+O Laboratory Tests 03/05/20 06:12 Vital Signs Date Time Temp Pulse Resp B/P (MAP) Pulse Ox O2 Delivery O2 Flow Rate FiO2 03/05/20 06:00 99.0 79 19 134/66 (88) 100 Room Air 03/04/20 21:00 3.0 I&O- Last 24 Hours up to 6 AM 03/05/20 06:00 Intake Total 1320 ml Output Total 700 ml Balance 620 ml JIMMY VARELA MD March 05, 2020 08:11
[2020-03-05 14:00] VITALS: BP 132/68
--- NOTE | 2020-03-05 15:45 | DS.PDOC ---
Discharge Summary General Date of Admission March 03, 2020 at 13:13 Date of Discharge 03/05/2020 Attending Physician: JIMMY VARELA MD Discharge Summary PROCEDURES PERFORMED DURING STAY: None ADMITTING DIAGNOSES: 1. Dyspnea DISCHARGE DIAGNOSES: 1. Dyspnea presumably symptomatic chronic anemia 2. Lactic acidosis 3. UTI 4. IgG kappa Multiple myeloma initially diagnosed in 2008 with a relapse in 2018. Status post hematopoietic stem cell transplant in 2008, currently on camilla tumumab 5. Peripheral neuropathy affecting the lower extremities 6. ESRD on HD(MWF) and Sat when she receives onc treatments 7. Vascular access complications status post closed left AV fistula, right AV fistula placement, bruising at left fistula, right leg permacath dialysis access infection and removal currently with a R chest port that is in use for both HD and oncology treatments, with new right arm AV graft that has not yet matured for use, managed by Dr. Granger 8. Secondary hyperparathyroidism 9. Chronic anemia secondary to ESRD multiple myeloma 10. 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 Postherpetic neuralgia affecting the left flank. 12. Crohn's disease status post colectomy and ostomy 13. Hypothyroidism COMPLICATIONS/CHIEF COMPLAINT: Anemia Lactic Acidosis Sob Uti. HISTORY OF PRESENT ILLNESS: 74-year-old W with a history of IgG kappa Multiple myeloma initially diagnosed in 2008 with a relapse in 2017, s/p hematopoietic stem cell transplant in 2008, currently on 3rd line daratumumab + dexamethasone, history of myeloma kidney now ESRD on HD MWF, with HD on Sat when she has onc therapy, Crohn's disease s/p total colectomy w/ ileostomy, TIA, thromboses on chronic warfarin, chronic anemia and chronic intermittent shortness of breath, unexplained by EF on or echocardiogram, followed by Dr. Scott in cardiology and by Dr. Mckenzie in nephrology, that has previously improved with pRBC transfusion who presented to the ED with worsening shortness of breath for which her oncologist Dr. Jessy Saab recommended admission recommending 1u of pRBCs and evaluation for possible infection and antibiotics. She otherwise reported no fever, chills, cough, chest pain, abdominal pain, poor PO, diarrhea, constipation, dizziness, contact with many people or LE edema or orthopnea. HOSPITAL COURSE: In the ED, she was hemodynamically stable and afebrile, and breathing comfortably on 2L (at home is on 2.5L). Work up was notable for WBC 5.6, Hgb 9.1, Bun 53, Cr 6.46, lactate 3.2, proBNP 822 and +UA with an active sediment, while CXR was grossly wnl. She was admitted to medicine and transfused 1u pRBC with improvement in dyspnea and empirically treated for a UTI with eventual discontinuation of antibiotics are urine culture was negative. She was evaluated by nephrology and had HD. Ms. 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 I discussed with her that it is likely a combination of upper extremitiy vascular stenosis given her history of clots vs. cushingoid appearance from steroid therapy. She had a duplex upper extremity venous US that showed an occluded R subclavian vein with a patent right axillary arterial venous fistula. I discussed this finding with Dr. 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 He recommended that I could discharge her home to follow up with Dr. Granger in the outpatient setting. She passed her home safety evaluation for safe discharge home as she lives alone. She is now being discharged home with close follow up with Elkin Ramirez, Magaly and her PCP. DISCHARGE MEDICATIONS: Please see below. ALLERGIES: Please see below. PHYSICAL EXAMINATION ON DISCHARGE: VITAL SIGNS: Please see below. VITAL SIGNS: Please see below. GENERAL APPEARANCE: Elderly lady in NAD HEENT: Plethoric face, no flushing of erythema. Normocephalic, atraumatic, mucous membranes moist, no evidence mucositis CARDIOVASCULAR:, RRR. No murmurs, rubs or gallops LUNGS: Clear to auscultation bilaterally, breathing comfortably on 2L ABDOMEN: Normoactive sounds, soft , NTND ACCESS: Dialysis catheter at the right upper chest, with a c/d/i dressing with no surrounding erythema or drainage. Nontender to touch. has palpable thrill in R AV fistula EXTREMITIES: No lower extremity edema, WWP INTEGUMENT: No flushing, rashes, petechiae or pallor NEUROLOGICAL: Cranial nerves II to 12 are grossly intact. Speech is not dysarthric, gait is stable with walker as she walked to the bathroom PSYCHIATRIC: Alert and oriented to person, place and time, able to understand and follow commands LABORATORY DATA: See below. as summarized above IMAGING: CXR: No significant change from the prior exam. Stable-appearing chronic changes. It should be stated that the costophrenic angles have not been included on this radiograph and followup to include the costophrenic angles is recommended if clinically relevant. US Duplex Upper Extremity Veins FINDINGS: Right deep veins: The right jugular vein demonstrates normal color flow and Doppler waveform tracings. The right subclavian vein demonstrates no flow. A right axillary arterial venous fistula is noted. Left deep veins: The left jugular , subclavian and axillary veins demonstrate normal Doppler waveform tracings and normal color flow. Left superficial veins: There is a thrombosed left axillary fistula. Soft tissues: Unremarkable. IMPRESSION: 1. Occluded right subclavian vein. 2. Patent right axillary arterial venous fistula. 3. Thrombosed left axillary fistula. PROGNOSIS: Good ACTIVITY: As tolerated DIET: Regular DISCHARGE PLAN: Home with 6days of keflex and close hematology follow up with Magaly Tillman as well as PCP follow up DISPOSITION: Home DISCHARGE INSTRUCTIONS: 1. Please complete the keflex prescribed for a UTI, and follow up with Dr. Perea ITEMS TO FOLLOWUP ON ON OUTPATIENT: 1. Multiple myeloma 2. Vascular access 3. ESRD DISCHARGE CONDITION: Stable TIME SPENT ON DISCHARGE: 43 minutes. Vital Signs/I&Os Vital Signs Date Time Temp Pulse Resp B/P (MAP) Pulse Ox O2 Delivery O2 Flow Rate FiO2 03/04/20 06:00 98.4 79 18 171/95 (120) 100 Nasal Cannula 2.0 I&O- Last 24 Hours up to 6 AM 03/04/20 06:00 Intake Total 450 ml Balance 450 ml Laboratory Data Labs 24H Laboratory Tests 2 03/03/20 14:05: Immature Granulocyte % (Auto) 0.4, Neutrophils (%) (Auto) 91.7H, Lymphocytes (%) (Auto) 6.5L, Monocytes (%) (Auto) 1.4, Eosinophils (%) (Auto) 0.0, Basophils (%) (Auto) 0.0, Neutrophils # (Auto) 5.1, Lymphocytes # (Auto) 0.4L, Monocytes # (Auto) 0.1, Eosinophils # (Auto) 0.0, Basophils # (Auto) 0.0, Nucleated Red Blood Cells % (auto) 0.0, Prothrombin Time 26.5H, Prothromb Time International Ratio 2.46, Anion Gap 11, Glomerular Filtration Rate 6.7L, Lactic Acid Level 3.2*H, Calcium Level 8.2L, Total Bilirubin 0.7, Direct Bilirubin 0.1, Aspartate Amino Transf (AST/SGOT) 11, Alanine Aminotransferase (ALT/SGPT) 18, Alkaline Phosphatase 81, Total Creatine Kinase 48, Creatine Kinase MB 1.1, Creatine Kinase MB Relative Index 2.29, Troponin I < 0.02, XR-Mms-K-Type Natriuretic Peptide 822H, Total Protein 6.0L, Albumin 2.9L, Albumin/Globulin Ratio 0.94L, Thyroid Stimulating Hormone (TSH) 3.520 03/03/20 14:22: POC pH (Misc Panel) 7.440, POC Base Excess (Misc Panel) -4.0L, POC Saturated Percent O2 (Misc) 99H, POC pO2 (Misc Panel) 131.0H, POC pCO2 (Misc Panel) 29.8L, POC HCO3 (Misc Panel) 20.2L, POC Total CO2 (Misc Panel) 21.0L 03/03/20 15:42: Urine Color YELLOW, Urine Appearance HAZY, Urine pH 8.0, Urine Specific [place] 1.014, Urine Protein 2+H, Urine Glucose (UA) 1+H, Urine Ketones NEGATIVE, Urine Blood NEGATIVE, Urine Nitrite NEGATIVE, Urine Bilirubin NEGATIVE, Urine Urobilinogen 0.2, Urine Leukocyte Esterase 2+H, Urine WBC (Auto) 24H, Urine RBC (Auto) 1, Urine Hyaline Casts (Auto) 0, Urine Bacteria (Auto) 1+H, Urine Squamous Epithelial Cells 6, Urine Transitional Epithelial Cells <1, Urine Sperm (Auto) 03/03/20 18:56: Lactic Acid Followup at 4 Hours 3.0*H 03/04/20 06:20: Anion Gap 10, Glomerular Filtration Rate 6.4L, Lactic Acid Level 2.0, Calcium Level 8.6L, Magnesium Level 1.8, Total Bilirubin 0.9, Aspartate Amino Transf (AST/SGOT) 14, Alanine Aminotransferase (ALT/SGPT) 19, Alkaline Phosphatase 81, Total Protein 5.9L, Albumin 3.1L, Albumin/Globulin Ratio 1.11 CBC/BMP Laboratory Tests 03/03/20 14:05 5/2/20 06:20 Microbiology Microbiology 03/03/20 Urine Culture, Received Pending 03/03/20 Blood Culture, Received Pending 03/03/20 Blood Culture, Received Pending Discharge Medications Scheduled Cholecalciferol (Vitamin D3) (D3-2000) 50 Mcg Capsule, 2,000 UNITS PO DAILY, (Reported) Cyclosporine (Restasis) 0.05% Drope[place], 1 DROP OU BID, (Reported) Dexamethasone (Dexamethasone) 4 Mg Tablet, 12 MG PO ASDIRECTED, (Reported) TAKES ON SUNDAYS, ALTERNATING BETWEEN 12 MG AND 4 MG. Dexamethasone (Dexamethasone) 4 Mg Tablet, 4 MG PO ASDIRECTED, (Reported) TAKES ON SUNDAYS, ALTERNATING BETWEEN 12 MG AND 4 MG Levothyroxine Sodium (Levoxyl) 50 Mcg Tablet, 50 MCG PO DAILY, (Reported) Lipase/Protease/Amylase (Creon Dr 36,000 Units Capsule) 1 Each Capsule.dr, 2 CAP PO WM, (Reported) Lipase/Protease/Amylase (Creon Dr 36,000 Units Capsule) 1 Each Capsule.dr, 1 CAP PO ASDIRECTED, (Reported) WITH SNACKS [place]-3 Fatty Acids/Fish Oil (Fish Oil 1,000 mg Capsule) 1 Each Capsule, 1,000 MG PO DAILY, (Reported) Warfarin Sodium (Warfarin Sodium) 5 Mg Tablet, 5 MG PO QPM, (Reported) Allergies Coded Allergies: vancomycin (Verified Allergy, Intermediate, RASH/ITCHING, 01/24/20) JIMMY VARELA MD March 04, 2020 08:03
--- NOTE | 2020-03-06 15:27 | IPN ---
DATE OF SERVICE: 03/05/2020 SUBJECTIVE: The patient was seen and examined at the bedside today morning. She is hemodynamically stable. She reports her shortness of breath is significantly better. She was dialyzed yesterday. She tolerated the hemodialysis procedure well. She reports facial swelling. Otherwise, she denies any active complaints. OBJECTIVE: Vital Signs: Temperature is 99 degrees Fahrenheit, blood pressure 134/66, pulse is 79, respiratory rare of 19, saturating 100% on room air. Intake/Output. There is no urine output recorded. She has had five voids since overnight. Ultrafiltration with hemodialysis was 700 mL. Weight in the bed scale is not available. PHYSICAL EXAMINATION: General: The patient is awake, alert, oriented times three, laying in bed in no apparent distress. Head/Neck Exam: Extraocular muscles intact. The patient has mild facial edema. Neck is supple and neck veins are slightly engorged. She has a right internal jugular (IJ) tunneled hemodialysis catheter. Cardiovascular: S1, S2, regular rate. No edema of the bilateral lower extremities. Respiratory: Chest is clear to auscultation bilaterally. Bilateral equal air entry. No rales or rhonchi. Abdomen: Soft. Positive bowel sounds. Nontender. No organomegaly. Musculoskeletal: No clubbing or cyanosis. She has a right upper arm arteriovenous (AV) graft with thrill and bruit. Central Nervous System (MEASURING MACHINE TENDER) : No focal deficit. Power is 5/5 in all extremities. LAB REVIEW: CBC showed WBC of 7, hemoglobin 10.8, platelets of 195. BMP showed sodium 138, potassium 4.75, chloride 105, bicarbonate 24, BUN 43, creatinine 4.5, calcium 8.4. IMAGING: Doppler of the upper extremity veins was done, which showed occluded right subclavian vein, patent right axillary and arteriovenous fistula, thrombosed left axillary fistula and there were patent left jugular, subclavian and axillary veins. CURRENT INPATIENT MEDICATIONS: The patient's medications were all reviewed by me. Keflex and ceftriaxone have been stopped. No other change in the medications today as compared with yesterday. ASSESSMENT/PLAN: 1. End-stage renal disease. The patient's regular dialysis days are Friday, Friday, Friday and sometimes Friday, Friday, Friday depending upon her chemo. She was dialyzed yesterday. She tolerated the hemodialysis procedure well. Next hemodialysis will be done tomorrow morning as outpatient. 2. IgG kappa multiple myeloma currently in relapse. The patient is getting daratumumab and dexamethasone chemotherapy. Management is as per Hematology/Oncology. The only access available for chemo is right IJ tunneled hemodialysis catheter, which will not be removed even if we start using right upper arm AV graft because of the patient's vasculopathy and superior vena cava thrombosis. 3. Dyspnea. The patient's dyspnea has resolved. She got 1 unit of packed red blood cells (PRBC) transfusion when she was dialyzed. She denies any shortness of breath. 4. Superior vena cava thrombosis. The patient has known thrombosis of superior vena cava (SVC) based upon the fluoroscopy that was done in 2019. She has a right subclavian vein thrombosis as well on the latest Doppler. Continue current anticoagulation. No intervention is possible at this time because the SVC thrombosis cannulation was tried on previous fluoroscopy and it was not successful. Continue to use right IJ tunneled hemodialysis catheter for dialysis and for chemotherapy at the same time. 5. Crohn disease in ileostomy status. Continue Creon, minimal fluid removal during dialysis because of high output from ileostomy. 6. Anemia in end-stage renal disease. The patient is status post PRBC transfusion. Hemoglobin is stable. DISPOSITION: It is okay to discharge the patient from nephrology standpoint. She will be followed up as outpatient in dialysis center.
== END 2020-03-05 15:57 | disposition home or self-care (01) ==
LOC: M ED 13:12 → M ED INP 13:13 → ENRESERV 18:07 → M MSPAV 19:04
PROVIDERS: ADMIT Internal Medicine; ATTEND Internal Medicine
DX: R06.00 Dyspnea, unspecified (principal); E87.2 Acidosis; D53.9 Nutritional anemia, unspecified; N39.0 Urinary tract infection, site not specified; C90.02 Multiple myeloma in relapse; Z94.84 Stem cells transplant status; G62.9 Polyneuropathy, unspecified; N18.6 End stage renal disease; Z99.2 Dependence on renal dialysis; Z95.828 Presence of other vascular implants and grafts; N25.81 Secondary hyperparathyroidism of renal origin; D63.1 Anemia in chronic kidney disease; K50.90 Crohn's disease, unspecified, without complications; Z90.49 Acquired absence of other specified parts of digestive tract; Z93.2 Ileostomy status; B02.29 Other postherpetic nervous system involvement; Z86.73 Personal history of transient ischemic attack (TIA), and cerebral infarction without residual deficits; R06.02 Shortness of breath; I82.729 Chronic embolism and thrombosis of deep veins of unspecified upper extremity; I82.B11 Acute embolism and thrombosis of right subclavian vein; I82.210 Acute embolism and thrombosis of superior vena cava; T82.868A Thrombosis due to vascular prosthetic devices, implants and grafts, initial encounter; Y82.8 Other medical devices associated with adverse incidents; R23.2 Flushing; E03.9 Hypothyroidism, unspecified; Z79.899 Other long term (current) drug therapy; Z79.01 Long term (current) use of anticoagulants; Z79.52 Long term (current) use of systemic steroids; Z88.1 Allergy status to other antibiotic agents; Z87.891 Personal history of nicotine dependence
CPT/HCPCS: 36415; 36430; 36600; 71045; 80048; 80053; 81001; 82550; 82553; 82784; 82803; 83605; 83735; 83880; 83883; 84443; 84484; 85025; 85027; 85610; 86850; 86870; 86900; 86901; 86920; 87040; 87086; 93005; 93041; 93976; 96365; 96372; 96376; 97161; 99285; G0257; G0378; G0463; J0696; J1200; J1642; J2060; J2930; J9145; P9016

== ENCOUNTER → 2020-03-08 | Outpatient (CLI) | payer MEDICARE, OTHER ==
[~2020-03-08] MED LIST changes: +HYDR-4468 PO; -HYDR-4513 PO; +VITA200012 PO
[2020-03-08 10:36] LABS: INR 1.98; PROTHROMBIN TIME 22.3 SECONDS (11.8-14.0)
== END ==
LOC: M PLALAB 09:33
PROVIDERS: ATTEND Family Medicine
DX: Z79.01 Long term (current) use of anticoagulants (principal)

== ENCOUNTER → 2020-03-15 | Outpatient (CLI) | payer MEDICARE, OTHER ==
[2020-03-15 13:23] LABS: INR 1.39; PROTHROMBIN TIME 16.8 SECONDS (11.8-14.0)
== END ==
LOC: M PLALAB 10:11
PROVIDERS: ATTEND Family Medicine
DX: Z79.01 Long term (current) use of anticoagulants (principal)

== ENCOUNTER → 2020-03-29 | Outpatient (CLI) | payer MEDICARE, OTHER ==
[2020-03-29 10:48] LABS: INR 2.8; PROTHROMBIN TIME 29.4 SECONDS (11.8-14.0)
== END ==
LOC: M PLALAB 09:26
PROVIDERS: ATTEND Family Medicine
DX: Z51.81 Encounter for therapeutic drug level monitoring (principal); Z79.01 Long term (current) use of anticoagulants

== ENCOUNTER → 2020-04-04 | Outpatient (CLI) | payer MEDICARE, OTHER ==
[~2020-04-04] MED LIST changes: +ISOVUE-300 61% 50ML VIAL As Ordered ONE; +LIDOCAINE 1% MDV 20ML VIAL As Ordered ONE; +MIDAZOLAM INJ 2MG/2ML VIAL (J2250 PER 1MG) As Ordered ONE; +fentaNYL 100 MCG/2 ML INJECTION (J3010) As Ordered ONE
[2020-04-04 14:10] LABS: INR 2.22; PROTHROMBIN TIME 24.4 SECONDS (11.8-14.0)
--- NOTE | 2020-04-04 15:57 | ROOPDOC ---
[facility] Report Of Operation Report of Operation DATE OF PROCEDURE: 04/04/20 PREPROCEDURE DIAGNOSES: End-stage renal disease with long-standing PermCath use for dialysis and chemotherapy, now with SVC occlusion POSTPROCEDURE DIAGNOSES: Same. PROCEDURE: 1. Ultrasound-guided access right brachial axillary AV graft 2. Right upper extremity fistulogram and central venogram 3. Attempt to cross chronic total occlusion superior vena cava, aborted 4. Angioplasty AV graft venous anastomosis with 7 x 40 and 8 x 40 Vilonia balloons 5. Completion venogram SURGEON: Maximiliano Granger MD ANESTHESIA: Local anesthesia with 2 mL lidocaine. Moderate intravenous conscious sedation was administered by Dr. Granger. The patient was independently monitored by a registered nurse aside to the Department of radiology using automated blood pressure, EKG, and pulse oximetry. The detailed sedation record is permanently stored in the hospital information system. The following is a brief sedation record: Start time 15:02, stop time 15:38, Versed 1 mg IV, fentanyl 50 g IV. INDICATION FOR PROCEDURE: This is a very pleasant 74-year-old patient with multiple failed upper extremity dialysis access disease, long-standing history of Port-A-Cath and permacath for chemotherapy and dialysis respectively, now currently dialyzing and receiving chemotherapy through a single right IJ PermCat h. The patient has known SVC occlusion due to long-standing history of intravenous catheters and ports. Today we bring the patient in to see if we can possibly cross and angioplasty the SVC to provide better outflow for her AV graft. She still has quite a bit of swelling in her right upper extremity, and I believe this is largely due to her outflow being only through collaterals. Some of her right upper extremity swelling may also be due to her history of skin cancer with wide local excision on the right shoulder and lymph node dissection from the right axilla. She has a very complicated history. Risks benefits and alternatives to a right upper extremity fistulogram venogram and possible intervention were explained to the patient and she is agreeable to proceed. Informed consent was obtained. INTERPRETATION: 1. The AV anastomosis of the graft to the brachial artery was examined with ultrasound and found to be widely patent with no stenoses. 2. The flow through the graft is brisk in the right upper extremity, but there is a 60% narrowing at the venous anastomosis, with good outflow through the subclavian vein. There are large collaterals on the chest that are draining the right upper extremity system, but no flow is noted through the superior vena cava back to the heart. 3. Aggressive attempts were made to cross the occlusion and the superior vena cava for over 20 minutes, but unfortunately we were unsuccessful. Final imaging does not show any extravasation. Attempts were aborted. 4. After angioplasty of the venous anastomosis from the graft to the axillary vein, there was a widely patent outflow with no significant residual stenosis. T here is an excellent thrill in the graft. The graft was marked on skin. REPORT OF OPERATION: The patient was brought to the angiographic suite in stable condition. Her right upper extremity was prepped and draped in a sterile fashion. A timeout was performed. Local anesthesia was administered to the skin and subcutaneous tissue over the right brachial axillary graft near the arterial anastomosis. Ultrasound was used to examine the arterial anastomosis and it was noted to be widely patent on ultrasound. We then accessed the graft under ultrasound guidance and a wire was passed through this access under fluoroscopic guidance and the needle was exchanged for a 4 Dutch sheath and flushed with saline. We then advanced a Glidewire into the central system. A fistulogram and central venogram was performed. Please see interpretation above. We attempted to navigate the wire into the SVC, but this was extremely challenging. We utilized a glide cath and for about 20 minutes we attempted to navigate along the PermCath through the superior vena cava to the right atrium. Unfortunately, despite our best efforts, we were not able to cross the occlusion. No extravasation was noted on completion venogram. This was then aborted. We exchanged the sheath for a 5 Dutch sheath and a 7 x 40 Vilonia balloon was used angioplasty the venous anastomosis for three-minute inflations. Following this, there is still some residual stenosis and we upsized to an 8 x 40 Vilonia balloon after exchanging for 6 Dutch sheath and flushing the sheath with saline. Following the second angioplasty, there was no significant residual stenosis and the outflow was widely patent. There was an excellent thrill and the graft despite her outflow being reliant on collateral circulation only. Hopefully that will be enough outflow through her collaterals to allow good clearances for dialysis. This concluded the procedure. Local anesthesia was administered around the sheath and a [id number] Prolene suture was placed and secured as the sheath was removed. Pressure was held for 3 minutes for good hemostasis and sterile dressings were applied. The suture will be removed prior to discharge. Patient was taken to recovery in stable condition. She tolerated the procedure and the sedation well. ESTIMATED BLOOD LOSS: Approximately 5 mL. COMPLICATIONS: None. PLAN: Okay to resume home diet medications. Okay to use AV graft for dialysis. It has been marked on skin for the dialysis nurses. Despite not being able to open up in-line flow through the SVC back to the heart, we are hopeful there is an of collateral circulation to allow for adequate dialysis clearances. If not, a last resort would be to remove the permacath over the wire, and use that wire access to try to place an angioplasty balloon across the SVC and dilate it up. We would then need to replace a PermCath through a new tunnel. Within over the wire angioplasty and catheter exchange, the patient would be at risk for infection, which for someone in her fragile state could be life-threatening. If we decide to pursue this, we will have a lengthy discussion about the risks and potential benefits. Unfortunately, with long-standing PermCath and port use, the patient's SVC occlusion may be challenging to maintain patency. For now, we will see how she does with her AV graft. We appreciate the opportunity to participate in the care of this patient. MAXIMILIANO GRANGER MD Apr 04, 2020 15:57
[2020-04-04 16:30] VITALS: BP 110/52
== END ==
LOC: M IRPRO 13:10
PROVIDERS: ATTEND Surgery Vascular Surgery
DX: I82.210 Acute embolism and thrombosis of superior vena cava (principal); N18.6 End stage renal disease; Z85.828 Personal history of other malignant neoplasm of skin
CPT/HCPCS: 36902; 85610; 99152; 99153; C1725; C1769; C1887; C1894; J1644; J2250; J3010; Q9967

== ENCOUNTER → 2020-04-07 | Outpatient (CLI) | payer MEDICARE, OTHER ==
[~2020-04-07] MED LIST changes: -COUM7.5T PO; +COUM7.5T6 PO; -ISOVUE-300 61% 50ML VIAL As Ordered ONE; -LIDOCAINE 1% MDV 20ML VIAL As Ordered ONE; -MIDAZOLAM INJ 2MG/2ML VIAL (J2250 PER 1MG) As Ordered ONE; -fentaNYL 100 MCG/2 ML INJECTION (J3010) As Ordered ONE
[2020-04-07 13:58] LABS: INR 1.37; PROTHROMBIN TIME 16.6 SECONDS (11.8-14.0)
== END ==
LOC: M PLALAB 10:22
PROVIDERS: ATTEND Family Medicine
DX: Z51.81 Encounter for therapeutic drug level monitoring (principal); Z79.01 Long term (current) use of anticoagulants

== ENCOUNTER 2020-04-11 09:29 | Emergency (ER) | payer MEDICARE, OTHER ==
[2020-04-11] MEDS ORDERED: RENV2TAB PO (10:01)
[2020-04-11 10:21] LABS: BASO % 0.1 % (0.0-1.0); EOS % 0.1 % (0.0-3.0); HEMATOCRIT 30.5 % (36.0-47.0); LYMPH # 1.1 10^3/uL (1.5-5.0); LYMPH % 13.5 % (24.0-44.0); MEAN CORPUSCULAR HEMOGLOBIN 34.2 pg (27.0-33.0); MEAN CORPUSCULAR HGB CONC 32.8 g/dl (32.0-36.5); MEAN CORPUSCULAR VOLUME 104.5 fl (80.0-96.0); MONO # 0.6 10^3/uL (0.0-0.8); MONO % 7.5 % (0.0-5.0); NEUTROPHILS # 6.2 10^3/uL (1.5-8.5); NEUTROPHILS % 78.3 % (36.0-66.0); PLATELET COUNT, AUTOMATED 193 10^3/uL (150-450); RED BLOOD COUNT 2.92 10^6/uL (4.00-5.40)
[2020-04-11 10:33] LABS: INR 2.02; PROTHROMBIN TIME 22.7 SECONDS (11.8-14.0)
[2020-04-11 11:00] LABS: CK-MB VALUE MASS < 1.0 NG/ML (<3.6); CPK CREATINE PHOSPHOKINASE 91 U/L (26-192); TROPONIN I < 0.02 NG/ML (< 0.10)
--- NOTE | 2020-04-11 11:10 | REP ---
CHEST, SINGLE VIEW: Single view of the chest is performed. There is no acute infiltrate. The heart is normal in size. There is mild calcification and tortuosity of the thoracic aorta. Right central venous catheter is seen with the tip in the superior vena cava. Metallic clips are seen in the right axillary region. There is evidence of prior kyphoscoliosis of the lower thoracic spine. IMPRESSION: No acute infiltrate. Electronically Signed by Justin Ugalde MD 04/12/2020 10:19 P
[2020-04-11 11:28] VITALS: O2SAT 94
[2020-04-11 14:55] LABS: CK-MB VALUE MASS < 1.0 NG/ML (<3.6); CPK CREATINE PHOSPHOKINASE 57 U/L (26-192); MB/CK RELATIVE INDEX 1.75 (< OR =4); TROPONIN I < 0.02 NG/ML (< 0.10)
[2020-04-11 15:47] VITALS: BP 118/58
--- NOTE | 2020-04-11 20:14 | ECGEPIP ---
[facility] - ED Test Date: 2020-04-11 Pat Name: AD JOHNSTON Department: Room: - Gender: Female Inventory Manager: mehul : 1945 Requested By: Kings Mosher Order Number: [id number] Reading MD: Peyton Vickers Measurements Intervals [place] Rate: 80 P: TX: 0 QRS: 57 QRSD: 83 T: 68 QT: 386 QTc: 446 Interpretive Statements SUPRAVENTRICULAR RHYTHM LOW QRS VOLTAGE IN PRECORDIAL LEADS SIMILAR 03/03/20 Electronically Signed on 04-11-2020 20:14:33 EDT by Peyton Vickers
--- NOTE | 2020-04-11 20:16 | ECGEPIP ---
[facility] - ED Test Date: 2020-04-11 Pat Name: AD JOHNSTON Department: Room: - Gender: Female Police Liaison Officer: [email or web address] : 1945 Requested By: Kings Mosher Order Number: [id number] Reading MD: Peyton Vickers Measurements Intervals [place] Rate: 71 P: 71 TN: 120 QRS: 65 QRSD: 86 T: 69 QT: 409 QTc: 445 Interpretive Statements SINUS RHYTHM LOW VOLTAGE LIMB SIMILAR 04/11/20 Electronically Signed on 04-11-2020 20:16:34 EDT by Peyton Vickers
== END 2020-04-11 15:50 | disposition home or self-care (01) ==
LOC: M ED 09:29 → EDBD 09:29 → M ED 15:50
DX: R06.00 Dyspnea, unspecified (principal); C90.00 Multiple myeloma not having achieved remission; E07.9 Disorder of thyroid, unspecified; K50.90 Crohn's disease, unspecified, without complications; N17.9 Acute kidney failure, unspecified; Z99.2 Dependence on renal dialysis; Z99.81 Dependence on supplemental oxygen; Z86.73 Personal history of transient ischemic attack (TIA), and cerebral infarction without residual deficits; Z86.718 Personal history of other venous thrombosis and embolism; Z88.1 Allergy status to other antibiotic agents; Z79.899 Other long term (current) drug therapy; Z79.01 Long term (current) use of anticoagulants

== ENCOUNTER → 2020-04-19 | Outpatient (CLI) | payer MEDICARE, OTHER ==
[~2020-04-19] MED LIST changes: +ASPI81TA86 PO; +ATOR1TAB19 PO; +D 50CAP2 PO; +IXAZ3CAP PO; +LIDO1PAD TOP; +LIDO5DIS41 TOP; +SODI15SS PO; +TRAM50TA2 PO; -[UNRECOGNIZED DRUG - CODE] PO
[2020-04-19 12:54] LABS: INR 2.31; PROTHROMBIN TIME 25.2 SECONDS (11.8-14.0)
== END ==
LOC: M PLALAB 09:16
PROVIDERS: ATTEND Family Medicine
DX: Z51.81 Encounter for therapeutic drug level monitoring (principal); Z79.01 Long term (current) use of anticoagulants

== ENCOUNTER → 2020-04-26 | Outpatient (CLI) | payer MEDICARE, OTHER ==
[~2020-04-26] MED LIST changes: -IXAZ3CAP PO; -SODI15SS PO; +[UNRECOGNIZED DRUG - CODE] PO
[2020-04-26 13:55] LABS: INR 2.8; PROTHROMBIN TIME 29.4 SECONDS (11.8-14.0)
== END ==
LOC: M PLALAB 09:11
PROVIDERS: ATTEND Family Medicine
DX: Z51.81 Encounter for therapeutic drug level monitoring (principal); Z79.01 Long term (current) use of anticoagulants

== ENCOUNTER → 2020-05-03 | Outpatient (CLI) | payer MEDICARE, OTHER ==
[~2020-05-03] MED LIST changes: -ASPI81TA86 PO; -ATOR1TAB19 PO; -D 50CAP2 PO; -LIDO1PAD TOP; -LIDO5DIS41 TOP; -TRAM50TA2 PO
[2020-05-03 12:30] LABS: INR 2.34; PROTHROMBIN TIME 25.5 SECONDS (11.8-14.0)
== END ==
LOC: M PLALAB 09:39
PROVIDERS: ATTEND Family Medicine
DX: Z79.01 Long term (current) use of anticoagulants (principal)

== ENCOUNTER → 2020-05-10 | Outpatient (CLI) | payer MEDICARE, OTHER ==
[~2020-05-10] MED LIST changes: +ASPI81TA86 PO; +ATOR1TAB19 PO; +D 50CAP2 PO; +LIDO1PAD TOP; +LIDO5DIS41 TOP; +TRAM50TA2 PO
[2020-05-10 11:45] LABS: INR 2.28; PROTHROMBIN TIME 24.9 SECONDS (11.8-14.0)
== END ==
LOC: M PLALAB 09:15
PROVIDERS: ATTEND Family Medicine
DX: Z79.01 Long term (current) use of anticoagulants (principal)

== ENCOUNTER → 2020-05-17 | Outpatient (CLI) | payer MEDICARE, OTHER ==
[2020-05-17 10:38] LABS: INR 2.65; PROTHROMBIN TIME 28.1 SECONDS (11.8-14.0)
== END ==
LOC: M PLALAB 09:35
PROVIDERS: ATTEND Family Medicine
DX: Z79.01 Long term (current) use of anticoagulants (principal)

== ENCOUNTER → 2020-05-24 | Outpatient (CLI) | payer MEDICARE, OTHER ==
[2020-05-24 13:20] LABS: INR 2.93; PROTHROMBIN TIME 30.5 SECONDS (11.8-14.0)
== END ==
LOC: M PLALAB 09:17
PROVIDERS: ATTEND Family Medicine
DX: Z79.01 Long term (current) use of anticoagulants (principal)

== ENCOUNTER → 2020-05-31 | Outpatient (REF) | payer MEDICARE, OTHER ==
[2020-06-26 11:35] LABS: INR 3.81; PROTHROMBIN TIME 38.4 SECONDS (11.8-14.0)
== END ==
LOC: M LAB REF 14:25
PROVIDERS: ATTEND Family Medicine
DX: Z51.81 Encounter for therapeutic drug level monitoring (principal); Z79.01 Long term (current) use of anticoagulants

== ENCOUNTER → 2020-06-09 | Outpatient (REF) | payer MEDICARE, OTHER ==
[2020-07-08 03:09] LABS: INR 3.4; PROTHROMBIN TIME 35.2 SECONDS (11.8-14.0)
== END ==
LOC: M PLALAB 08:03
PROVIDERS: ATTEND Family Medicine
DX: Z79.01 Long term (current) use of anticoagulants (principal)

== ENCOUNTER → 2020-06-14 | Outpatient (REF) | payer MEDICARE, OTHER ==
[2020-07-15 10:35] LABS: INR 3.06; PROTHROMBIN TIME 32.3 SECONDS (11.8-14.0)
== END ==
LOC: M PLALAB 16:22
PROVIDERS: ATTEND Family Medicine
DX: Z79.01 Long term (current) use of anticoagulants (principal)

== ENCOUNTER 2020-06-16 09:06 | Emergency (ER) | payer MEDICARE, OTHER ==
[~2020-06-16 09:06] MED LIST changes: -ASPI81TA86 PO; -ATOR1TAB19 PO; -D 50CAP2 PO; -LIDO1PAD TOP; -LIDO5DIS41 TOP; -TRAM50TA2 PO
[2020-06-16] MEDS ORDERED: NORCO, ANEXSIA 5/325MG TABLET (HYDROcodone/ACETAMINOPHEN) As Ordered ONE (09:29)
[2020-06-18] MEDS ORDERED: NALOXONE 2MG/2ML SYRINGE (J2310 PER 1MG) As Ordered ONE (04:41)
[2020-06-18] MEDS ORDERED: MECLIZINE 25 MG TABLET As Ordered ONE (06:03)
--- NOTE | 2020-07-19 14:17 | ECGEPIP ---
SINUS RHYTHM WITH SHORT AK INTERVAL MODERATE ST DEPRESSION ABNORMAL ECG SEE SCANNED DOWNTIME REPORT MTDD
--- NOTE | 2020-07-19 14:18 | ECGEPIP ---
SUPRAVENTRICULAR RHYTHM ATYPICAL ECG SEE SCANNED DOWNTIME REPORT MTDD
[2020-07-19] MEDS ORDERED: ATOR1TAB19 PO (15:37)
[2020-07-31 10:55] LABS: BASO % 0.3 % (0.0-1.0); EOS % 0.3 % (0.0-3.0); HEMATOCRIT 30.9 % (36.0-47.0); HEMOGLOBIN 10.3 g/dl (12.0-15.5); LYMPH # 2.5 10^3/uL (1.5-5.0); LYMPH % 32.7 % (24.0-44.0); MEAN CORPUSCULAR HEMOGLOBIN 33.6 pg (27.0-33.0); MEAN CORPUSCULAR HGB CONC 33.3 g/dl (32.0-36.5); MEAN CORPUSCULAR VOLUME 100.7 fl (80.0-96.0); MONO # 0.7 10^3/uL (0.0-0.8); MONO % 8.7 % (0.0-5.0); NEUTROPHILS # 4.4 10^3/uL (1.5-8.5); NEUTROPHILS % 57.9 % (36.0-66.0); PLATELET COUNT, AUTOMATED 202 10^3/uL (150-450); RED BLOOD COUNT 3.07 10^6/uL (4.00-5.40); WHITE BLOOD COUNT 7.6 10^3/uL (4.0-10.0)
[2020-07-31 13:39] LABS: INR 3.47; PROTHROMBIN TIME 35.7 SECONDS (12.5-14.3)
[2020-09-08 13:03] LABS: BLOOD UREA NITROGEN 12 MG/DL (7-18); CALCIUM LEVEL 9.8 MG/DL (8.8-10.2); CARBON DIOXIDE LEVEL 32 MEQ/L (21-32); CHLORIDE LEVEL 101 MEQ/L (98-107); CK-MB VALUE MASS < 1.0 NG/ML (<3.6); CPK CREATINE PHOSPHOKINASE 57 U/L (26-192); GLOMERULAR FILTRATION RATE 21.1 (>39); GLUCOSE, FASTING 96 MG/DL (70-100); MB/CK RELATIVE INDEX 1.75 (< OR =4); POTASSIUM SERUM 3.6 MEQ/L (3.5-5.1); SODIUM LEVEL 141 MEQ/L (136-145); TROPONIN I < 0.02 NG/ML (< 0.10)
== END 2020-06-16 13:40 | disposition home or self-care (01) ==
LOC: M ED 09:06
DX: R07.89 Other chest pain (principal); C90.00 Multiple myeloma not having achieved remission; N18.6 End stage renal disease; Z99.2 Dependence on renal dialysis; K50.90 Crohn's disease, unspecified, without complications; K86.1 Other chronic pancreatitis; E78.00 Pure hypercholesterolemia, unspecified; Z86.718 Personal history of other venous thrombosis and embolism; Z88.1 Allergy status to other antibiotic agents; Z79.899 Other long term (current) drug therapy; Z79.01 Long term (current) use of anticoagulants

== ENCOUNTER 2020-06-18 04:30 | Inpatient (IN) | payer MEDICARE, OTHER ==
[~2020-06-18] VITALS: Ht 162.6 cm; Wt 55.1 kg
[~2020-06-18 04:30] MED LIST changes: +NORCO, ANEXSIA 5/325MG TABLET (HYDROcodone/ACETAMINOPHEN) ONE
[2020-06-18] MEDS ORDERED: NALOXONE 2MG/2ML SYRINGE (J2310 PER 1MG) ONE (04:41)
[2020-06-18] MEDS ORDERED: MECLIZINE 25 MG TABLET ONE (06:03)
[2020-06-18] MEDS ORDERED: VITAMIN D 1,000 INTERNATIONAL UNITS TABLET As Ordered ONE (15:38)
[2020-06-18] MEDS ORDERED: LIDOCAINE 5% (LIDODERM) PATCH As Ordered ONE ×2 (15:38→15:39)
[2020-06-18] MEDS ORDERED: HEPARIN SOD (PORCINE) 5000UNITS/ML 1ML VIAL/SYRINGE As Ordered ONE (15:38)
[2020-06-18] MEDS ORDERED: (RENVELA) SEVELAMER **CARBONate** 800 MG TAB As Ordered ONE (18:38)
[2020-06-18] MEDS ORDERED: WARFARIN SOD 5MG TAB As Ordered ONE (18:38)
[2020-06-18] MEDS ORDERED: ACETAMINOPHEN 500 MG TAB As Ordered ONE (20:38)
[2020-06-18] MEDS ORDERED: rOPINIRole 0.25 MG TAB(REQUIP) ONE (21:00)
[2020-06-18] MEDS ORDERED: CREON-12 CAPSULE ONE (21:00)
[2020-06-19] MEDS ORDERED: LEVOTHYROXINE 50MCG TABLET (0.05MG) As Ordered ONE (05:21)
[2020-06-19] MEDS ORDERED: DARBEPOETIN 100 MCG/0.5 ML *DIALYSIS* SYRINGE (J0882) ONE (09:00)
[2020-06-19] MEDS ORDERED: DOCUSATE SODIUM 100 MG CAP As Ordered ONE (12:23)
[2020-06-19] MEDS ORDERED: (RENVELA) SEVELAMER **CARBONate** 800 MG TAB As Ordered ONE ×2 (12:24→17:39)
[2020-06-19] MEDS ORDERED: LIDOCAINE 5% (LIDODERM) PATCH As Ordered ONE (12:24)
[2020-06-19] MEDS ORDERED: CREON-12 CAPSULE ONE (13:00)
[2020-06-19] MEDS ORDERED: ACETAMINOPHEN 500 MG TAB As Ordered ONE ×2 (15:46→21:28)
[2020-06-19] MEDS ORDERED: WARFARIN SOD 5MG TAB As Ordered ONE (17:40)
[2020-06-20] MEDS ORDERED: LEVOTHYROXINE 50MCG TABLET (0.05MG) As Ordered ONE (05:10)
[2020-06-20] MEDS ORDERED: LIDOCAINE 5% (LIDODERM) PATCH As Ordered ONE (09:03)
[2020-06-20] MEDS ORDERED: (RENVELA) SEVELAMER **CARBONate** 800 MG TAB As Ordered ONE ×3 (09:03→16:10)
[2020-06-20] MEDS ORDERED: ACETAMINOPHEN 500 MG TAB As Ordered ONE (12:16)
[2020-06-20] MEDS ORDERED: WARFARIN SOD 5MG TAB As Ordered ONE (16:10)
[2020-06-20] MEDS ORDERED: BISACODYL 5 MG TAB PO PRN (18:30)
[2020-06-20] MEDS ORDERED: DARBEPOETIN 100 MCG/0.5 ML *DIALYSIS* SYRINGE (J0882) IV SCH (18:30)
[2020-06-20] MEDS ORDERED: NALOXONE INJ 0.4MG/1ML VIAL (J2310 PER 1MG) IM PRN (19:00)
[2020-06-20] MEDS ORDERED: ONDANSETRON 4 MG TAB PO PRN (19:00)
[2020-06-20] MEDS ORDERED: ACETAMINOPHEN 500 MG TAB PO PRN (19:00)
[2020-06-20] MEDS ORDERED: SLF 3 ML SYR IV PRN (19:00)
[2020-06-20 20:00] VITALS: BP 122/56
[2020-06-20] MEDS: DOCUSATE SODIUM 100 MG CAP PO SCH (20:32)
[2020-06-20] MEDS: SLF 3 ML SYR IV SCH (20:32)
[2020-06-20 21:37] LABS: INR 3.13; PROTHROMBIN TIME 32.9 SECONDS (11.8-14.0)
[2020-06-20 21:50] LABS: HEMATOCRIT 32.9 % (36.0-47.0); HEMOGLOBIN 10.8 g/dl (12.0-15.5); MEAN CORPUSCULAR HEMOGLOBIN 33.3 pg (27.0-33.0); MEAN CORPUSCULAR HGB CONC 32.8 g/dl (32.0-36.5); MEAN CORPUSCULAR VOLUME 101.5 fl (80.0-96.0); PLATELET COUNT, AUTOMATED 209 10^3/uL (150-450); RED BLOOD COUNT 3.24 10^6/uL (4.00-5.40); WHITE BLOOD COUNT 5.5 10^3/uL (4.0-10.0)
[2020-06-21] VITALS: BP 119/56
[2020-06-21 04:00] VITALS: BP 136/64
[2020-06-21] MEDS: LEVOTHYROXINE 50MCG TABLET (0.05MG) PO SCH (05:16)
[2020-06-21] MEDS: SLF 3 ML SYR IV SCH ×3 (05:17→22:00)
[2020-06-21 06:56] LABS: HEMATOCRIT 31.8 % (36.0-47.0); HEMOGLOBIN 10.1 g/dl (12.0-15.5); MEAN CORPUSCULAR HEMOGLOBIN 32.8 pg (27.0-33.0); MEAN CORPUSCULAR HGB CONC 31.8 g/dl (32.0-36.5); MEAN CORPUSCULAR VOLUME 103.2 fl (80.0-96.0); PLATELET COUNT, AUTOMATED 163 10^3/uL (150-450); RED BLOOD COUNT 3.08 10^6/uL (4.00-5.40); WHITE BLOOD COUNT 4.7 10^3/uL (4.0-10.0)
[2020-06-21 07:03] LABS: INR 3.77; PROTHROMBIN TIME 38.1 SECONDS (11.8-14.0)
[2020-06-21 07:23] LABS: ALBUMIN 3.3 GM/DL (3.2-5.2); CREATININE FOR GFR 5.76 MG/DL (0.55-1.30); GLOMERULAR FILTRATION RATE 7.7 (>39); PHOSPHORUS LEVEL 4.8 MG/DL (2.5-4.9); POTASSIUM SERUM 4.3 MEQ/L (3.5-5.1)
[2020-06-21] MEDS: DOCUSATE SODIUM 100 MG CAP PO SCH ×2 (07:32→20:44)
[2020-06-21 07:42] VITALS: BP 134/63
[2020-06-21] MEDS: CREON-12 CAPSULE PO SCH ×3 (07:42→20:45)
[2020-06-21] MEDS: (RENVELA) SEVELAMER **CARBONate** 800 MG TAB PO SCH ×3 (07:42→20:45)
[2020-06-21] MEDS: CREON-24 CAPSULE PO SCH ×3 (07:42→20:44)
[2020-06-21] MEDS ORDERED: D 50CAP2 PO (08:49)
[2020-06-21] MEDS ORDERED: SLF 3 ML SYR IV PRN (11:30)
[2020-06-21 12:00] VITALS: BP 158/70
[2020-06-21] MEDS: LIDOCAINE 5% (LIDODERM) PATCH TD SCH (12:14)
[2020-06-21] MEDS ORDERED: ALPRAZolam 0.25 MG TAB PO PRN (13:00)
[2020-06-21] MEDS ORDERED: SLF 3 ML SYR IV SCH (14:00)
[2020-06-21 15:47] VITALS: BP 108/52
--- NOTE | 2020-06-21 15:58 | IPNPDOC ---
Subjective Date Seen The patient was seen on 06/21/20. Subjective Chief Complaint/HPI Hospital course: Ms. Escobedo is a 74 year old woman, with known history of multiple myeloma s/p stem cell transplant on 2008, chronic pancreatitis, no known alcohol use, on creon; CKD on ESR TTS, Multiple myeloma had been on remission until 2018, when she had recurrence and started back on chemo as per patient. She was referred h ere when she had change in mental state, and concern about opioid intoxication, given narcan on arrival to ED, and mental status improved. I took over her care yesterday, she has no recurrence of confusion. She mentioned she does take hydrocodone daily for pain control, no overdose, she did not take more pills than normal. Since admission, her pain had been controlled with tylenol and lidocaine - at least when i saw her yesterday. Subjective: complaining of more neck and bilateral shoulder pain, that tylenol and lidocaine patch has not been helpful now. She was not able to sleep much.S No headche. No numbness. She had dialysis and just feels quite tired. Objective Physical Examination General Exam: Positive: Alert, No Acute Distress Eye Exam: Positive: PERRLA, Conjunctiva & lids normal, EOMI; Negative: Sclera icteric ENT Exam: Positive: Atraumatic, Mucous membr. moist/pink, Pharynx Normal Neck Exam: Positive: Supple; Negative: JVD, thyromegaly Chest Exam: Positive: Clear to auscultation, Normal air movement Heart Exam: Positive: Rate Normal, Regular Rhythm, Normal S1, Normal S2; Negative: Murmurs, Rubs Telemetry: Positive: No significant arrhythmia Abdomen Exam: Positive: Normal bowel sounds, Soft; Negative: Tenderness, Hepatospenomegaly Female Exam: Positive: Nl Ext Genitalia; Negative: Lesions, Discharge, Odor, Tenderness Extremity Exam: Positive: Normal pulses; Negative: Clubbing, Cyanosis, Edema Skin Exam: Positive: Nl turgor and temperature; Negative: Rash, Breakdown Neuro Exam: Positive: Normal Gait, Normal Speech, Cranial Nerves 3-12 NL, Reflexes 2+ Psych Exam: Positive: Mental status NL, Mood NL, Oriented x 3 Other physical findings Physical exam: General: awake, alert, oriented x 3 not in acute respiratory distress, appears as stated age, HEENT: anicteric sclerae, no nasal discharges, no throat exudates, no oral lesions, PERRL, EOM intact, NECK: supple, no cervical tenderness, no bruit noted, no rigidity noted CHEST: clear breath sounds, equal chest expansion, no rales or wheezing CVS; s1 and s2 distinct, no murmurs audible note, no rubs, or thrills, ABDOMEN: soft, positive normoactive bowel sounds, no tenderness, no rigidity , no guarding noted EXTREMETIES: Limited ROm on both shoulders,, no leg edema, no joint swelling, no calf tendernesss, no atrophy -- noted tenderness on trapezius muscle, posterior cervical spine and bilateral should jamie joint, no erythema noted, 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 Acute metabolic encephalopathy due to opioid intoxication, resolved 2. Acute pain on neck and bilateral shoulders 3. Multiple myeloma, recurrent, s/p stem cell transplant on 1999 4. ESRD on dialysis 5. chronic pancreatitis PLANS; * Patient is supposed to follow up with her oncologist today. Planned for MRi shoulder. her pain had been worsened since I last saw her yesterday. * Thus will go ahead and obtain MRI brain, neck,and bilateral shoulders. She has limited ROM on both shoulders. * Add tramadol for pain control as tylenol and lidocaine has not been able to control her pain * PT and OT consult might benefit from subacute rehab. * discussed with patient, she voiced understanding. * FULL CODE Plan/VTE VTE Prophylaxis Ordered?: Yes VS, I&O, 24H, [facility] Vital Signs/I&O Vital Signs Date Time Temp Pulse Resp B/P (MAP) Pulse Ox O2 Delivery O2 Flow Rate FiO2 06/21/20 12:00 97.8 76 18 158/70 (99) 97 Nasal Cannula 2.0 I&O- Last 24 Hours up to 6 AM 06/21/20 06:00 Output Total 100 ml Balance -100 ml Laboratory Data 24H LABS Laboratory Tests 2 06/21/20 06:12: Nucleated Red Blood Cells % (auto) 0.0, Prothrombin Time 38.1H, Prothromb Time International Ratio 3.77, Anion Gap 13, Glomerular Filtration Rate 7.7L, Calcium Level 9.0, Phosphorus Level 4.8, Albumin 3.3 CBC/BMP Laboratory Tests 06/21/20 06:12 ESTEBAN DONATO MD Jun 21, 2020 15:58
[2020-06-21] MEDS ORDERED: WARFARIN SOD 5MG TAB PO SCH (17:00)
[2020-06-21 18:19] LABS: APPEARANCE, URINE MANUAL CLOUDY (CLEAR); COLOR, URINE MANUAL YELLOW (YELLOW)
[2020-06-21 18:20] LABS: BILIRUBIN, URINE MANUAL NEGATIVE (NEGATIVE); BLOOD URINE MANUAL TRACE (NEGATIVE); GLUCOSE, URINE (UA) MANUAL TRACE(50 MG/DL) mg/dL (NEGATIVE); KETONE, URINE MANUAL NEGATIVE (NEGATIVE); LEUKOCYTE ESTERASE, URINE MAN POSITIVE (NEGATIVE); NITRITE, URINE MANUAL NEGATIVE (NEGATIVE); PH,URINE MAN 6.5 UNITS (5.0 - 7.0); PROTEIN, URINE MANUAL 2+ mg/dL (NEGATIVE); SPECIFIC GRAVITY,URINE MANUAL 1.017 (1.002-1.035); UROBILINOGEN, URINE MANUAL NORMAL (NORMAL)
[2020-06-21 18:46] LABS: BACTERIA, URINE LARGE AMOUNT; SQUAMOUS EPITHELIAL CELL URINE LARGE AMOUNT /hpf (SMALL AMT); WBC, URINE TNTC /hpf (0-3); YEAST, URINE MOD AMOUNT
[2020-06-21 18:47] LABS: HYALINE CAST, URINE NONE SEEN /lpf (0-1)
--- NOTE | 2020-06-21 19:43 | REPVR ---
PROCEDURE INFORMATION: Exam: MR Cervical Spine Without Contrast Exam date and time: 06/21/2020 7:22 PM Age: 74 years old Clinical indication: Other: Bilateral shoulders; Patient HX: Bilateral shoulder pain, HX multiple myloma, unable to give contrast due to low gfr; Additional info: Weakness bilateral upper ext, mylemoa TECHNIQUE: Imaging protocol: Multiplanar magnetic resonance images of the cervical spine without contrast. COMPARISON: MRA CAROTID WITHOUT CONTRAST 03/26/2019 1:02 PM FINDINGS: There is motion artifact particularly on the sagittal STIR images. Nonspecific straightening. Mild retrolisthesis of C3 on C4 and C5 on C6. Vertebral body heights are preserved. Multilevel disc desiccation and disc space narrowing. There is degenerative endplate signal. No evidence of discitis/osteomyelitis. No definite abnormal cord signal. No epidural fluid collection. C2-C3: Mild disc osteophyte complex without significant central or foraminal stenosis. C3-C4: [id number] disc osteophyte complex with bilateral uncinate spurring. There is mild central canal stenosis, [id number] right foraminal stenosis and moderate to severe left foraminal stenosis. C4-C5: Mild disc osteophyte complex without significant central or foraminal stenosis. C5-C6: Moderate disc osteophyte complex with bilateral uncinate spurring. There is moderate central canal stenosis and moderate to severe bilateral foraminal stenosis. C6-C7: Mild disc osteophyte complex with bilateral uncinate spurring. No significant central canal stenosis. There is ihxy-[id number] bilateral foraminal stenosis. C7-T1: Minimal disc osteophyte complex with bilateral uncinate spurring. No significant central canal stenosis. There is mild bilateral foraminal stenosis. IMPRESSION: 1. Degenerative findings as above greatest at C5-C6 where there is moderate central canal stenosis. 2. Suboptimal evaluation of the cervical cord, no gross abnormal cord signal. Electronically signed by: Wiliam Riggins On 06/21/2020 19:43:25 PM
--- NOTE | 2020-06-21 19:45 | REPVR ---
PROCEDURE INFORMATION: Exam: MR Head Without Contrast Exam date and time: 06/21/2020 6:25 PM Age: 74 years old Clinical indication: Patient HX: Bilateral shoulder pain, HX multiple myloma, unable to give contrast due to low gfr; Additional info: Myeloma patient, right hand weakness TECHNIQUE: Imaging protocol: MR of the head without contrast. COMPARISON: MRI-Brain without Contrast 03/26/2019 1:02 PM FINDINGS: Major vascular flow voids at the skull base are preserved. No extra-axial fluid collection. No hydrocephalus. No midline shift or intracranial mass effect. Nonspecific white matter gliosis, probable chronic microvascular ischemia. No cerebral edema. No diffusion restriction. Minimal paranasal sinus disease. Small bilateral mastoid effusions. IMPRESSION: No acute intracranial abnormality. Electronically signed by: Wiliam Riggins On 06/21/2020 19:45:39 PM
[2020-06-21 20:00] VITALS: BP 121/56
--- NOTE | 2020-06-21 20:46 | REPVR ---
PROCEDURE INFORMATION: Exam: MR Left Upper Extremity Joint Without Contrast; Shoulder Exam date and time: 06/21/2020 7:40 PM Age: 74 years old Clinical indication: Patient HX: Bilateral shoulder pain, HX multiple myeloma, unable to give contrast at this time due to low gfr; Additional info: Myeloma patient, right hand weakness TECHNIQUE: Imaging protocol: MR of the Left upper extremity without contrast. Exam focused on the shoulder. COMPARISON: CR Shoulder, complete 12/13/2019 9:36 AM FINDINGS: There are full-thickness tears of the supraspinatus and infraspinatus tendons, which are retracted to the glenohumeral joint line. There is a moderate amount of edema in the muscle bellies. There is mild subscapularis tendinopathy. There is mild tendinopathy of the intra-articular biceps tendon, which is normally located within the bicipital groove. There is a moderate amount of loculated fluid in the biceps tendon sheath. The biceps anchor is intact. There is mild glenohumeral osteoarthrosis. Evaluation of the labrum is suboptimal without intra-articular contrast. Circumferential labral changes are likely degenerative in nature. There is a moderate to large Hill-Sachs lesion in the humeral head. Bone marrow signal is otherwise normal. There is no or dislocation. Alignment is anatomic. There are mild degenerative changes of the acromioclavicular joint. There is a moderate glenohumeral joint effusion. IMPRESSION: 1. Full-thickness, retracted tears of the supraspinatus and infraspinatus tendons, as described above. 2. Moderate to large Hill-Sachs lesion in the humeral head. 3. Mild biceps tenosynovitis. 4. Moderate effusion. Electronically signed by: Ramiro Sharpe On 06/21/2020 20:46:31 PM
[2020-06-21] MEDS: traMADol 50 MG TAB PO PRN (20:51)
--- NOTE | 2020-06-21 20:56 | REPVR ---
PROCEDURE INFORMATION: Exam: MR Right Upper Extremity Joint Without Contrast; Shoulder Exam date and time: 06/21/2020 7:23 PM Age: 74 years old Clinical indication: Right; Patient HX: Bilateral shoulder pain, HX multiple myeloma, unable to give contrast at this time due to low gfr; Additional info: Myeloma patient, right hand weakness TECHNIQUE: Imaging protocol: MR of the Right upper extremity without contrast. Exam focused on the shoulder. COMPARISON: MRI-Shoulder W/O CONTRAST RIGHT 06/28/2016 4:59 PM FINDINGS: There are full-thickness tears of the supraspinatus and infraspinatus tendons, which are retracted to the glenohumeral joint line. There is a moderate amount of edema in the muscle bellies. There is severe tendinopathy and partial-thickness bursal and articular surface tearing and delamination along the distal subscapularis tendon. There is high-grade, partial-thickness tearing of the intra-articular biceps tendon, which is partially medially subluxed from the bicipital groove. The biceps anchor is poorly seen. There is mild glenohumeral osteoarthrosis. Evaluation of the labrum is suboptimal without intra-articular contrast. Circumferential labral changes are likely chronic/degenerative in nature. There is a 1 x 0.9 cm lesion in the distal clavicle, which is predominantly hyperintense on the fluid sensitive sequences and hypointense on the T1 weighted sequences. Bone marrow signal is otherwise normal. There is no evidence of acute fracture or dislocation. Alignment is anatomic. There are mild degenerative changes of the acromioclavicular joint. There is a large, complex glenohumeral joint effusion. IMPRESSION: 1. Full-thickness, retracted tears of the supraspinatus and infraspinatus tendons, as described above. 2. Severe tendinopathy and partial-thickness bursal and articular surface tearing and delamination along the distal subscapularis tendon. 3. High-grade, partial-thickness tearing of the intra-articular biceps tendon, which is partially medially subluxed from the bicipital groove. 4. Large, complex glenohumeral joint effusion. 5. Nonspecific lesion in the distal clavicle, as described above, possibly related to the patient's myeloma. 6. Additional findings, as above. Electronically signed by: Ramiro Sharpe On 06/21/2020 20:56:08 PM
[2020-06-22] VITALS: BP 105/49
[2020-06-22 04:00] VITALS: BP 133/64
[2020-06-22 04:48] LABS: HEMATOCRIT 33.1 % (36.0-47.0); HEMOGLOBIN 10.8 g/dl (12.0-15.5); MEAN CORPUSCULAR HEMOGLOBIN 33.2 pg (27.0-33.0); MEAN CORPUSCULAR HGB CONC 32.6 g/dl (32.0-36.5); MEAN CORPUSCULAR VOLUME 101.8 fl (80.0-96.0); PLATELET COUNT, AUTOMATED 189 10^3/uL (150-450); RED BLOOD COUNT 3.25 10^6/uL (4.00-5.40); WHITE BLOOD COUNT 4.9 10^3/uL (4.0-10.0)
[2020-06-22 04:57] LABS: INR 2.71; PROTHROMBIN TIME 29.4 SECONDS (11.8-14.0)
[2020-06-22] MEDS: LEVOTHYROXINE 50MCG TABLET (0.05MG) PO SCH (05:00)
[2020-06-22 05:11] LABS: ALBUMIN 3.5 GM/DL (3.2-5.2); BILIRUBIN,TOTAL 0.7 MG/DL (0.2-1.0); CALCIUM LEVEL 9.5 MG/DL (8.8-10.2); CREATININE FOR GFR 4.15 MG/DL (0.55-1.30); GLOMERULAR FILTRATION RATE 11.2 (>39); POTASSIUM SERUM 3.6 MEQ/L (3.5-5.1); TOTAL PROTEIN 6.7 GM/DL (6.4-8.2)
[2020-06-22] MEDS: SLF 3 ML SYR IV SCH ×3 (05:32→20:17)
[2020-06-22 08:00] VITALS: BP 105/53
[2020-06-22] MEDS: CREON-12 CAPSULE PO SCH ×3 (08:11→17:48)
[2020-06-22] MEDS: (RENVELA) SEVELAMER **CARBONate** 800 MG TAB PO SCH ×3 (08:12→17:48)
[2020-06-22] MEDS: CREON-24 CAPSULE PO SCH ×3 (08:12→17:48)
[2020-06-22] MEDS: LIDOCAINE 5% (LIDODERM) PATCH TD SCH (08:13)
[2020-06-22] MEDS: DOCUSATE SODIUM 100 MG CAP PO SCH ×2 (08:13→20:15)
[2020-06-22 09:25] LABS: INR 3.4; PROTHROMBIN TIME 35.1 SECONDS (11.8-14.0)
[2020-06-22 09:39] LABS: BASO % 0.2 % (0.0-1.0); EOS % 0.8 % (0.0-3.0); HEMATOCRIT 30.1 % (36.0-47.0); HEMOGLOBIN 9.9 g/dl (12.0-15.5); LYMPH # 1.7 10^3/uL (1.5-5.0); LYMPH % 35.7 % (24.0-44.0); MEAN CORPUSCULAR HEMOGLOBIN 33.3 pg (27.0-33.0); MEAN CORPUSCULAR HGB CONC 32.9 g/dl (32.0-36.5); MEAN CORPUSCULAR VOLUME 101.3 fl (80.0-96.0); MONO # 0.5 10^3/uL (0.0-0.8); MONO % 10.6 % (0.0-5.0); NEUTROPHILS # 2.5 10^3/uL (1.5-8.5); NEUTROPHILS % 52.5 % (36.0-66.0); PLATELET COUNT, AUTOMATED 167 10^3/uL (150-450); RED BLOOD COUNT 2.97 10^6/uL (4.00-5.40); WHITE BLOOD COUNT 4.8 10^3/uL (4.0-10.0)
[2020-06-22 11:31] VITALS: BP 111/63
--- NOTE | 2020-06-22 14:35 | IPNPDOC ---
Subjective Date Seen The patient was seen on 06/22/20. Subjective Chief Complaint/HPI bilateral shoulder pain has improved Events since last encounter patient seen this noon, bilateral shoulder pain has improved since tramadol has been started. She was finally able to sleep right. she appears well this morning. She still has limited ROm on both shoulder and punch box tender to touch, no erythema,. no vomiting. mobility is limited overall due to this shoulder pain. Initially, history I got was she had history of shoulder pain since february, but she now mentioned that she had shoulder pain bilaterally since september last year. She mentioned she was diagnosed with bone lesions from myeloma and even had radiation. She denies any recent trauma. As far as she can remember her pain has been since september gardually worsening, and noted that her limited ROm on both shoulders was a few months ago. Objective Physical Examination General Exam: Positive: Alert, No Acute Distress Eye Exam: Positive: PERRLA, Conjunctiva & lids normal, EOMI; Negative: Sclera icteric ENT Exam: Positive: Atraumatic, Mucous membr. moist/pink, Pharynx Normal Neck Exam: Positive: Supple; Negative: JVD, thyromegaly Chest Exam: Positive: Clear to auscultation, Normal air movement Heart Exam: Positive: Rate Normal, Regular Rhythm, Normal S1, Normal S2; Negative: Murmurs, Rubs Telemetry: Positive: No significant arrhythmia Abdomen Exam: Positive: Normal bowel sounds, Soft; Negative: Tenderness, Hepatospenomegaly Female Exam: Positive: Nl Ext Genitalia; Negative: Lesions, Discharge, Odor, Tenderness Extremity Exam: Positive: Normal pulses; Negative: Clubbing, Cyanosis, Edema Skin Exam: Positive: Nl turgor and temperature; Negative: Rash, Breakdown Neuro Exam: Positive: Normal Gait, Normal Speech, Cranial Nerves 3-12 NL, Reflexes 2+ Psych Exam: Positive: Mental status NL, Mood NL, Oriented x 3 Other physical findings General: awake, alert, oriented x 3 not in acute respiratory distress, appears as stated age, HEENT: anicteric sclerae, no nasal discharges, no throat exudates, no oral lesions, PERRL, EOM intact, NECK: supple, no cervical tenderness, no bruit noted, no rigidity noted CHEST: clear breath sounds, equal chest expansion, no rales or wheezing CVS; s1 and s2 distinct, no murmurs audible note, no rubs, or thrills, ABDOMEN: soft, positive normoactive bowel sounds, no tenderness, no rigidity , no guarding noted EXTREMETIES: Limited ROM on both shoulders,, no leg edema, no joint swelling, no calf tendernesss, no atrophy -- noted tenderness on trapezius muscle, posterior cervical spine and bilateral should jamie joint, no erythema noted, 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 Full-thickness, retracted tears of the supraspinatus and infraspinatus tendons, as described above. 2. Severe tendinopathy and partial-thickness bursal and articular surface tearing and delamination along the distal subscapularis tendon. 3. High-grade, partial-thickness tearing of the intra-articular biceps tendon, which is partially medially subluxed from the bicipital groove. 4. Large, complex glenohumeral joint effusion. 5. Nonspecific lesion in the distal clavicle, as described above, possibly related to the patient's myeloma. 6. Additional findings, as above. left shoulder IMPRESSION: 1. Full-thickness, retracted tears of the supraspinatus and infraspinatus tendons, as described above. 2. Moderate to large Hill-Sachs lesion in the humeral head. 3. Mild biceps tenosynovitis. 4. Moderate effusion. Cervical spine: No lytic lesions, noted moderate to severe neuraminal stenosis. C5 c6 Assessment /Plan Assessment ASSESSMENT: 1. Acute metabolic encephalopathy due to opioid intoxication, resolved 2. Acute pain on neck and bilateral shoulders 3. Multiple myeloma, recurrent, s/p stem cell transplant on 1999 4. ESRD on dialysis 5. chronic pancreatitis PLANS: MRI report on both shoulders noted. Will consult Ortho, if surgery is recommended, called answering service, left message. her pain has been better controlled with tramadol, which will continue. her shoulder pain seems to be chronic, with an acute worsening of pain yesterday, but so far improved now since tramadol has been started. PT and OT evaluated her, she lives with daughter, and likely will have help at home. high risk for falls due to limited ROm on both shoulders Moderate risk Plan/VTE VTE Prophylaxis Ordered?: Yes VS, I&O, 24H, Fishbone Vital Signs/I&O Vital Signs Date Time Temp Pulse Resp B/P (MAP) Pulse Ox O2 Delivery O2 Flow Rate FiO2 06/22/20 12:00 3.0 06/22/20 11:31 97.8 75 18 111/63 (79) 98 Nasal Cannula I&O- Last 24 Hours up to 6 AM 06/22/20 06:00 Intake Total 1020 ml Output Total 1480 ml Balance -460 ml Laboratory Data 24H LABS Laboratory Tests 2 06/21/20 16:45: Bedside Urine Color (LAB) YELLOW, Bedside Urine Appearance (LAB) CLOUDYH, Bedside Urine pH (LAB) 6.5, Bedside Urine Specific [place] (LAB 1.017, Bedside Urine Protein (LAB) 2+H, Bedside Urine Glucose (UA) TRACE(50 MG/DL), Bedside Urine Ketones (LAB) NEGATIVE, Bedside Urine Blood TRACEH, Bedside Urine Nitrite (LAB) NEGATIVE, Bedside Urine Bilirubin (LAB) NEGATIVE, Bedside Urine Urobilinogen (LAB) NORMAL, Bedside Urine Leukocyte Esterase (L POSITIVEH, Urine Sediment Examination PERFORMED, Urine RBC 1-3, Urine WBC TNTCH, Urine Squamous Epithelial Cells LARGE AMOUNTH, Urine Bacteria LARGE AMOUNTH, Urine Hyaline Casts NONE SEEN, Urine Yeast MOD AMOUNTH 06/22/20 04:28: Nucleated Red Blood Cells % (auto) 0.0, Prothrombin Time 29.4H, Prothromb Time International Ratio 2.71, Anion Gap 6L, Glomerular Filtration Rate 11.2L, Calcium Level 9.5, Total Bilirubin 0.7, Aspartate Amino Transf (AST/SGOT) 18, Alanine Aminotransferase (ALT/SGPT) 23, Alkaline Phosphatase 78, Total Protein 6 .7, Albumin 3.5, Albumin/Globulin Ratio 1.1L CBC/BMP Laboratory Tests 06/22/20 04:28 ESTEBAN DONATO MD Jun 22, 2020 14:30
[2020-06-22] MEDS: traMADol 50 MG TAB PO PRN (15:31)
[2020-06-22 15:54] VITALS: BP 97/54
[2020-06-22 18:55] LABS: INR 2.29; PROTHROMBIN TIME 25.7 SECONDS (11.8-14.0)
[2020-06-22 19:28] LABS: HEMATOCRIT 33.4 % (36.0-47.0); HEMOGLOBIN 10.8 g/dl (12.0-15.5); MEAN CORPUSCULAR HEMOGLOBIN 32.9 pg (27.0-33.0); MEAN CORPUSCULAR HGB CONC 32.3 g/dl (32.0-36.5); MEAN CORPUSCULAR VOLUME 101.8 fl (80.0-96.0); PLATELET COUNT, AUTOMATED 213 10^3/uL (150-450); RED BLOOD COUNT 3.28 10^6/uL (4.00-5.40); WHITE BLOOD COUNT 5.7 10^3/uL (4.0-10.0)
[2020-06-22 19:30] LABS: ALBUMIN 3.5 GM/DL (3.2-5.2); ALT/SGPT 24 U/L (12-78); BILIRUBIN,TOTAL 0.8 MG/DL (0.2-1.0); BLOOD UREA NITROGEN 30 MG/DL (7-18); C REACTIVE PROTEIN QUANTITATIV < 0.30 MG/DL (0.00-0.30); CALCIUM LEVEL 9.1 MG/DL (8.8-10.2); CARBON DIOXIDE LEVEL 26 MEQ/L (21-32); CHLORIDE LEVEL 99 MEQ/L (98-107); CREATININE FOR GFR 5.41 MG/DL (0.55-1.30); GLOMERULAR FILTRATION RATE 8.3 (>39); GLUCOSE, FASTING 102 MG/DL (70-100); POTASSIUM SERUM 4.4 MEQ/L (3.5-5.1); SODIUM LEVEL 132 MEQ/L (136-145); TOTAL PROTEIN 6.3 GM/DL (6.4-8.2)
[2020-06-22 20:00] VITALS: BP 122/58
[2020-06-22 20:47] LABS: ERYTHROCYTE SEDIMENTATION RATE 41 mm/hr (0-30)
[2020-06-23] VITALS: BP 115/56
[2020-06-23] MEDS: traMADol 50 MG TAB PO PRN ×2 (00:04→13:54)
[2020-06-23 04:00] VITALS: BP 104/52
[2020-06-23] MEDS: LEVOTHYROXINE 50MCG TABLET (0.05MG) PO SCH (05:11)
[2020-06-23] MEDS: SLF 3 ML SYR IV SCH ×3 (05:12→21:51)
[2020-06-23] MEDS: CREON-12 CAPSULE PO SCH ×3 (07:39→17:25)
[2020-06-23] MEDS: CREON-24 CAPSULE PO SCH ×3 (07:39→17:25)
[2020-06-23] MEDS: (RENVELA) SEVELAMER **CARBONate** 800 MG TAB PO SCH ×3 (07:40→17:25)
[2020-06-23 08:00] VITALS: BP 136/66
[2020-06-23] MEDS: DOCUSATE SODIUM 100 MG CAP PO SCH ×2 (08:32→21:00)
[2020-06-23] MEDS: LIDOCAINE 5% (LIDODERM) PATCH TD SCH (08:32)
[2020-06-23 12:00] VITALS: BP 122/57
[2020-06-23 16:00] VITALS: BP 110/56
--- NOTE | 2020-06-23 18:44 | IPNPDOC ---
Text Note Date of Service The patient was seen on 06/23/20. NOTE seen patient this afternoon. Working with OT. patient just had dialysis, and had been feeling quite weak. Her shoulder pain is still there, but much improved with tramadol. I called Dr. Daniel (IR) this morning regarding scheduling patient for IR drain of both join effusion, we discussed about the INR 2.29, preferred for INR <2 prior to procedure. Noted ESR mildly elevated and CRP not elevated. No fever. No chills. Pain has been present since last year. Vital Sign - Last 24 Hours 06/22/20 06/22/20 06/23/20 06/23/20 20:00 20:00 00:00 00:00 Temp 96.9 97.4 Pulse 73 67 Resp 18 16 B/P (MAP) 122/58 (79) 115/56 (75) Pulse Ox 98 99 O2 Delivery Nasal Cannula Nasal Cannula O2 Flow Rate 3.0 3.0 3.0 3.0 06/23/20 06/23/20 06/23/20 06/23/20 00:04 00:34 04:00 04:00 Temp 97.2 Pulse 66 Resp 18 18 18 B/P (MAP) 104/52 (69) Pulse Ox 99 O2 Delivery Nasal Cannula O2 Flow Rate 3.0 3.0 06/23/20 06/23/20 06/23/20 06/23/20 08:00 08:00 12:00 12:15 Temp 97.7 97.8 Pulse 71 71 Resp 18 16 B/P (MAP) 136/66 (89) 122/57 (78) Pulse Ox 100 100 O2 Delivery Nasal Cannula Nasal Cannula O2 Flow Rate 3.0 3.0 3.0 3.0 06/23/20 06/23/20 06/23/20 06/23/20 13:54 14:24 16:00 16:00 Temp 97.8 Pulse 74 Resp 18 18 18 B/P (MAP) 110/56 (74) Pulse Ox 100 O2 Delivery Nasal Cannula O2 Flow Rate 3.0 3.0 General: awake, alert, oriented x 3 not in acute respiratory distress, appears as stated age, HEENT: anicteric sclerae, no nasal discharges, no throat exudates, no oral lesions, PERRL, EOM intact, NECK: supple, no cervical tenderness, no bruit noted, no rigidity noted CHEST: clear breath sounds, equal chest expansion, no rales or wheezing CVS; s1 and s2 distinct, no murmurs audible note, no rubs, or thrills, ABDOMEN: soft, positive normoactive bowel sounds, no tenderness, no rigidity , no guarding noted EXTREMETIES: Limited ROM on both shoulders,, no leg edema, no joint swelling, no calf tendernesss, no atrophy -- noted tenderness on trapezius muscle, posterior cervical spine and bilateral should jamie joint, no erythema noted, 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 Full-thickness, retracted tears of the supraspinatus and infraspinatus tendons, as described above. 2. Severe tendinopathy and partial-thickness bursal and articular surface tearing and delamination along the distal subscapularis tendon. 3. High-grade, partial-thickness tearing of the intra-articular biceps tendon, which is partially medially subluxed from the bicipital groove. 4. Large, complex glenohumeral joint effusion. 5. Nonspecific lesion in the distal clavicle, as described above, possibly related to the patient's myeloma. 6. Additional findings, as above. left shoulder IMPRESSION: 1. Full-thickness, retracted tears of the supraspinatus and infraspinatus tendons, as described above. 2. Moderate to large Hill-Sachs lesion in the humeral head. 3. Mild biceps tenosynovitis. 4. Moderate effusion. Cervical spine: No lytic lesions, noted moderate to severe neuraminal stenosis. C5 c6 Assessment /Plan Assessment ASSESSMENT: 1. Acute metabolic encephalopathy due to opioid intoxication, resolved 2. Acute pain on neck and bilateral shoulders secondary to supraspinatus tears, and joint effussion 3. Multiple myeloma, recurrent, s/p stem cell transplant on 1999 4. ESRD on dialysis 5. chronic pancreatitis PLANS: * updated by ortho team, that no need for urgent IR, as inflammatory markers are not present, thus suspicion for septic arthritis is low, and recommend outpatient follow up as outpatient. * I was notified that patient will be seen today by orthopedic surgeon to de termine treatment course. Will wait for their further recommendation, given patient's pain and limited mobility, if IR draining of fluid might symptomatically improve patient's pain? * continue with tramadol for pain control which has been helpful for patient. * If no inpatient ortho management, will plan for discharge once seen by ortho. * discussed with patient. VS,Fishbone, I+O VS, Fishbone, I+O Vital Signs Date Time Temp Pulse Resp B/P (MAP) Pulse Ox O2 Delivery O2 Flow Rate FiO2 06/23/20 16:00 3.0 06/23/20 16:00 97.8 74 18 110/56 (74) 100 Nasal Cannula I&O- Last 24 Hours up to 6 AM 06/23/20 06:00 Intake Total 480 ml Output Total 0 ml Balance 480 ml ESTEBAN DONATO MD Jun 23, 2020 18:44
[2020-06-23 20:00] VITALS: BP 108/50
[2020-06-24] VITALS: BP 129/60
[2020-06-24] MEDS: traMADol 50 MG TAB PO PRN (00:55)
[2020-06-24 04:00] VITALS: BP 129/60
[2020-06-24] MEDS: LEVOTHYROXINE 50MCG TABLET (0.05MG) PO SCH (06:13)
[2020-06-24] MEDS: SLF 3 ML SYR IV SCH (06:13)
[2020-06-24 08:00] VITALS: BP 134/64
[2020-06-24] MEDS: CREON-24 CAPSULE PO SCH (08:03)
[2020-06-24] MEDS: (RENVELA) SEVELAMER **CARBONate** 800 MG TAB PO SCH (08:03)
[2020-06-24] MEDS: CREON-12 CAPSULE PO SCH (08:03)
[2020-06-24] MEDS: DOCUSATE SODIUM 100 MG CAP PO SCH (08:03)
[2020-06-24] MEDS: LIDOCAINE 5% (LIDODERM) PATCH TD SCH (08:04)
[2020-06-24] MEDS ORDERED: TRAM50TA2 PO (08:58)
--- NOTE | 2020-06-24 09:15 | DS.PDOC ---
Discharge Summary General Date of Admission Jun 18, 2020 at 05:30 Date of Discharge June Discharge Summary PROCEDURES PERFORMED DURING STAY: dialysis (maintenance ADMITTING DIAGNOSES: confusion DISCHARGE DIAGNOSES: 1. Acute metabolic encephalopathy due to opioid intoxication, resolved 2. Acute on chronic pain on neck and bilateral shoulders secondary to supraspinatus tears, and joint effusion 3. Multiple myeloma, recurrent, s/p stem cell transplant on 1999,and currently on chemo 4. ESRD on dialysis 5. chronic pancreatitis COMPLICATIONS/CHIEF COMPLAINT: Dizziness. HISTORY OF PRESENT ILLNESS: confusion HOSPITAL COURSE: Ms. Escobedo is a 74 year old woman with known multiple myeloma, chronic pancreatitis, ESRD on dialysis, presented to hospital due to confusion. Patient given narcan in ED and improved. CT head showed no acute findings. Patient did not take multiple doses of hydrocodone. What she remembers is taking a dose of hydrocodone at night. She has been taking this pill for awhile for her chronic shoulder pain. During course of hospital stay, she was doing well with pain control with lidocaine patch and tylenol alone, however, heladioe having worsening neck and shoulder pain, initially history was pain starting february, with limited ROM, but it appears she has been having shoulder pain since September 2019, and had been seen by ortho, she has history of radiation on both shoulders, due to myeloma. She has history of stem cell transplant, but had recurrence of myeloma last year, and currently follow up by oncology for chemo. Due to worsening shoulder pains, MRI neck and shoulder was done, she has limited ROM on both shoulder, MRI brain showed no metastatic lesions. Shoulder joints bilaterally showed large effusions and supraspinatus tears, ortho consulted, no surgical intervention, no inflammatory markes noted, thus septic joint unlikely. Patient advised to follow up with ortho outpatient, no IR drainage indicated at present as per ortho. Patient's pain was now controlled by tramadol, in the past 3 days, and had tolerated it well, without confusion. Patient today, doing well, not in any distress. Doing well, pain controlled. Patient stable for discharge. DISCHARGE MEDICATIONS: Please see below. ALLERGIES: Please see below. Physical exam : Vital Sign - Last 24 Hours 06/23/20 06/23/20 06/23/20 06/23/20 12:00 12:15 13:54 14:24 Temp 97.8 Pulse 71 Resp 16 18 18 B/P (MAP) 122/57 (78) Pulse Ox 100 O2 Delivery Nasal Cannula O2 Flow Rate 3.0 3.0 06/23/20 06/23/20 06/23/20 06/23/20 16:00 16:00 20:00 20:00 Temp 97.8 98.4 Pulse 74 79 Resp 18 16 B/P (MAP) 110/56 (74) 108/50 (69) Pulse Ox 100 99 O2 Delivery Nasal Cannula Nasal Cannula O2 Flow Rate 3.0 3.0 3.0 3.0 06/24/20 06/24/20 06/24/20 06/24/20 00:00 00:00 00:55 01:25 Temp 98.3 Pulse 74 65 Resp 16 17 18 B/P (MAP) 129/60 (83) Pulse Ox 99 99 O2 Delivery Nasal Cannula Nasal Cannula Nasal Cannula O2 Flow Rate 3.0 3.0 3.0 3.0 06/24/20 06/24/20 06/24/20 04:00 04:00 08:00 Temp 97.5 97.9 Pulse 65 65 Resp 16 18 B/P (MAP) 129/60 (83) 134/64 (87) Pulse Ox 100 99 O2 Delivery Nasal Cannula Nasal Cannula O2 Flow Rate 3.0 3.0 3.0 elderly woman, not in any distress\ Clear breath sounds, no rales or wheezing. S1 and s2 distinct, no murmurs noted Right sided port, clean, no discharges, or erythema, no leg edema noted. Imaging: MRI brain, shoulder,neck PROGNOSIS: Good ACTIVITY: as tolerated, take tramadol prior to any activity to prevent severe pain, use sparingly DIET: renal diet DISCHARGE PLAN: discharge to home DISPOSITION: .HOME with home health PT, DISCHARGE INSTRUCTIONS: 1. new prescription: Tramadol and Lidocaine patch 2. Resume home meds. ITEMS TO FOLLOWUP ON ON OUTPATIENT: 1. ortho 1-2 weeks 2. regular ff-up with your oncologist DISCHARGE CONDITION: [Stable TIME SPENT ON DISCHARGE: 35 minutes - discussion with patient about her hospital course and her new medications. Vital Signs/I&Os Vital Signs Date Time Temp Pulse Resp B/P (MAP) Pulse Ox O2 Delivery O2 Flow Rate FiO2 06/24/20 08:00 97.9 65 18 134/64 (87) 99 Nasal Cannula 3.0 I&O- Last 24 Hours up to 6 AM 06/24/20 06:00 Intake Total 540 ml Output Total 1000 ml Balance -460 ml Discharge Medications Scheduled Cholecalciferol (Vitamin D3) (Vitamin D3) 125 Mcg Capsule, 5,000 UNITS PO DAILY, (Reported) Cyclosporine (Restasis) 0.05% Droperette, 1 DROP OU BID, (Reported) Dexamethasone (Dexamethasone) 4 Mg Tablet, 12 MG PO ASDIRECTED, (Reported) TAKE BEFORE CHEMO Levothyroxine Sodium (Levoxyl) 50 Mcg Tablet, 50 MCG PO DAILY, (Reported) Lipase/Protease/Amylase (Creon Dr 36,000 Units Capsule) 1 Each Capsule.dr, 2 CAP PO WM, (Reported) Sevelamer Carbonate (Renvela) 800 Mg Tablet, 800 MG PO WM, (Reported) Warfarin Sodium (Warfarin Sodium) 5 Mg Tablet, 5 MG PO QPM, (Reported) Scheduled PRN Tramadol HCl (Tramadol HCl) 50 Mg Tablet, 50 MG PO Q12HP PRN for MODERATE PAIN (PS 5-7) Allergies Coded Allergies: vancomycin (Verified Allergy, Intermediate, RASH/ITCHING, 01/24/20) ESTEBAN DONATO MD Jun 24, 2020 09:15
[2020-06-24] MEDS ORDERED: LIDO5DIS41 TOP (10:44)
[2020-06-24 23:08] LABS: ALBUMIN 3.7 GM/DL (3.2-5.2); CALCIUM LEVEL 9.4 MG/DL (8.8-10.2); CREATININE FOR GFR 4.31 MG/DL (0.55-1.30); GLOMERULAR FILTRATION RATE 10.7 (>39); PHOSPHORUS LEVEL 3.6 MG/DL (2.5-4.9); POTASSIUM SERUM 4.2 MEQ/L (3.5-5.1)
--- NOTE | 2020-07-04 10:40 | CR ---
DATE: 06/22/2020 REASON FOR CONSULTATION: Bilateral shoulder effusions. HISTORY OF PRESENT ILLNESS: Yoana is a 74-year-old female who was diagnosed with multiple myeloma last year and sees both radiation and hematology oncology here at [facility]. She completed radiation to bilateral shoulders in September 2019 and that had improved some of her pain. Of note, her multiple myeloma was first detected by one of the orthopedic PA's on an x-ray in the office. So the patient is currently undergoing chemotherapy and due to worsening shoulder pain, MRIs were ordered and these reveal bilateral shoulder joint effusions and bilateral rotator cuff tears. She has been admitted to the hospitalist service and orthopedic input has been requested today. Patient reports her pain as well-controlled with rest and with any movement, it becomes sharp and stabbing pain, and it can get up to 7 out of 10 on the pain scale. It is improved with Lidocaine patches. Overall, discussing her symptoms it does not sound like there has been any new injury or any rapid deterioration of her pain, but it is basically a steady bilateral shoulder pain that is becoming intolerable. For the patients past medical history, past surgical history, medications, allergies, social history, and review of systems, please see the hospitalist H&P which is reviewed. PHYSICAL EXAMINATION: GENERAL: Reveals an elderly female in no distress. She is alert and oriented x3. NEUROLOGIC: Appropriate mood and affect. She is pleasant to talk to. CARDIOVASCULAR: 2+ radial pulses. PULMONARY: Nonlabored breathing. ABDOMEN: Nondistended. MUSCULOSKELETAL: Skin on the shoulders is intact. There is a port for chemotherapy and she has Lidocaine patches and those were left over the anterior aspect of the shoulder. There is mild warmth bilaterally, but no erythema. There is [id number] swelling consistent with MRI reports of effusion, but clinically no massive effusion. The patient has a smooth range of motion arc from her abdomen to neutral external rotation, but any external rotation beyond neutral causes severe shoulder pain. She has about 60 degrees of active and passive forward flexion then has significant pain. She has tenderness to palpation at the tuberosity. DIAGNOSTIC STUDIES: MRI report states there are bilateral shoulder joint effusions and rotator cuff tears. Images are not available. ASSESSMENT AND PLAN: Yoana has bilateral rotator cuff tears and effusions with some arthritis. She has multiple myeloma in her shoulders status post radiation. She is currently getting chemotherapy. At this point, the first job is to rule out infection of her shoulders. We need an ESR and CRP. If they are completely normal, then she could get bilateral cortisone shots on an outpatient basis only if her oncologist says that the risk of the injection is minimally. Essentially being on chemotherapy would increase her risk for a shoulder joint infection with a cortisone shot, but that may be a low and acceptable risk, it all depends on the cattle farmer/oncologist. If the ESR and CRP are elevated at all, she would need bilateral IR-guided aspirations of her shoulders sent for cell count, crystals, gram stain, culture and sensitivity to determine if there is an infection. As long as those came back negative, then again she could get an outpatient cortisone shot if her oncologist deems it low risk. So these recommendations were explained multiple times to the patient and she expresses understanding. The recommendations have been relayed to the orthopedic nurse practitioner who will coordinate with the hospitalist. hothouse worker orthopedic doctor should be contacted with the results of the ESR and CRP and if she proceeds with the IR aspirations the results of those as well. JUANA
--- NOTE | 2020-07-04 10:50 | IPN ---
DATE: 06/23/2020 A followup note from Dr. Baltazar's note from 06/22/2020. This is a 74-year-old female patient with bilateral shoulder effusion, which is also on cervical films as well. Images are consistent with large effusions in both shoulders as well as degenerative changes of the cervical spine. Her C- reactive protein was less than 0.3. Her erythrocyte sedimentation rate (ESR) was 41. A repeat C-reactive protein again was 0.3. White count is 5.7. MRI of her cervical spine notable for multilevel degenerative changes with moderate stenosis at 5-6 with a central disc at that level but no cord signal changes. I examined the patient in the room today. She is due to be discharged soon. She denies any new injuries. We had discussed that if her C-reactive protein and sedimentation rate were not elevated, that she might be a candidate for outpatient steroid injections. She thinks that might be an option for her down the road. No real change in her history. Exam today reveals an elderly female patient in a hospital stretcher. There was irritability of shoulder range of motion bilaterally. She could give the thumbs up sign. Winter's is negative. Spurling's is negative on exam. No tenderness around the cervical spine. There is an effusion noted about both shoulders without gross signs of infection. IMPRESSION: End-stage degenerative changes of both shoulders with underlying effusions as well as cervical and degenerative disc disease with cervical spinal stenosis, and plan is no surgical indications for her ongoing symptoms. She can be seen on a outpatient basis. At that point, she could under subacromial injections at the office. We would need approval from her oncologist to do those injections. That is something we can do as an outpatient, so she is seeing her oncologist on Friday. If they give her the approval for steroid injections, she can come into the office and have those done in both shoulders, for cervical spine she might be a candidate for interventional treatments, though her cervical spine is not giving her too much trouble. It is mainly her shoulders, thus probably treat her as an outpatient. From an orthopedic standpoint, she is okay for discharge to home. She can work on gentle range of motion. No restriction son her weightbearing in the upper extremities. If further question arise, please feel free to re-consult. Otherwise, we will see her on an outpatient basis. JUANA
[2020-07-19] MEDS ORDERED: ATOR1TAB19 PO (15:37)
--- NOTE | 2020-07-21 15:35 | ECGEPIP ---
SINUS RHYTHM INTERPRETATION BASED ON A DEFAULT AGE OF [address] & T CHANGES - SUBTLE ST DEPRESSION NONSPECIFIC VS ISCHEMIA CLINICAL CORRELATION NO PRIOR DUE TO DOWNTIME SEE SCANNED DOWNTIME REPORT MTDD
[2020-07-31 10:12] LABS: INR 3.1; PROTHROMBIN TIME 32.7 SECONDS (12.5-14.3)
[2020-07-31 20:06] LABS: HEMATOCRIT 34.8 % (36.0-47.0); HEMOGLOBIN 11.2 g/dl (12.0-15.5); MEAN CORPUSCULAR HGB CONC 32.2 g/dl (32.0-36.5); MEAN CORPUSCULAR VOLUME 102.7 fl (80.0-96.0); PLATELET COUNT, AUTOMATED 189 10^3/uL (150-450); RED BLOOD COUNT 3.39 10^6/uL (4.00-5.40); WHITE BLOOD COUNT 7.1 10^3/uL (4.0-10.0)
--- NOTE | 2020-08-11 11:48 | IPN ---
DATE: 06/21/2020 SUBJECTIVE: Patient was seen and examined at the bedside today morning during hemodialysis. She is tolerating the hemodialysis procedure well. She denies any active complaints apart from feeling weak, and she is getting physical therapy at this time, and probably she will be transferred to rehabilitation. OBJECTIVE: Vital signs: Temperature is 97.6 degrees Fahrenheit, blood pressure 134/63, pulse is 73, respiratory rate of 18, saturating 100% on nasal cannula at 2 liters. Intake and output: Urine output recorded is only 100 mL. Weight in the bed scale 55.4 kg. PHYSICAL EXAMINATION: GENERAL: Patient is awake and alert, oriented times three, lying in bed getting hemodialysis done. HEAD AND NECK: Extraocular muscles intact. Pupils equally round and reactive to light. Mucous membranes are moist. Neck is supple. There is no jugular venous distention (JVD). She has a right internal jugular (IJ) tunneled hemodialysis catheter, which is being used for dialysis. CARDIOVASCULAR: S1, S2, regular rate. No edema of the bilateral lower extremities. RESPIRATORY: Chest is clear to auscultation bilaterally. Bilateral equal air entry. No rales or rhonchi. ABDOMEN: Soft. Positive bowel sounds. She has right lower quadrant ileostomy. MUSCULOSKELETAL: No clubbing or cyanosis. Pulses are 2+. She has a right upper arm arteriovenous (AV) fistula with thrill and bruit. CENTRAL NERVOUS SYSTEM: No focal deficit. Power is 5/5 in all extremities. LABORATORY REVIEW: CBC showed a WBC of 4.7, hemoglobin 10.1, platelets are 163. BMP showed sodium 138, potassium 4.3, chloride 103, bicarbonate 22, BUN 43, creatinine is 5.7. CURRENT INPATIENT MEDICATIONS: Patient's medications were all reviewed by myself. There is no significant change in the medications today as compared with yesterday. ASSESSMENT AND PLAN: 1. End stage renal disease. Patient is being dialyzed accord fig to her Friday, Friday, Friday schedule today. Next hemodialysis will be on Friday. Minimal fluid removal with dialysis. 2. Anemia, end stage renal disease, and multiple myeloma. Continue current dose of Aranesp. Hemoglobin level is stable. 3. Multiple myeloma in relapse. Her chemotherapy as outpatient is on hold. 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 She is pending new imaging before the chemotherapy can be restarted, and she has history of a failed stem cell transplant. 4. 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 Continue current dose of Renvela 800 mg by mouth with meals. 5. 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 She has an indwelling right internal jugular (IJ) tunneled hemodialysis catheter and a maturing right upper arm AV fistula. Dialysis catheter should not be removed, even if the fistula is used, because if she needs chemotherapy, dialysis is the only access that she has. We would not be able to put any more catheters because of SVC thrombosis. 6. Hypothyroidism. Continue current dose of levothyroxine. DISPOSITION: Patient is okay to be discharged to rehabilitation or to home from nephrology standpoint after dialysis today. MTDD
--- NOTE | 2020-08-11 11:49 | IPN ---
"DATE: 06/22/2020 SUBJECTIVE: Patient was seen and examined at the bedside today morning. She was dialyzed yesterday. She tolerated the hemodialysis procedure well. 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 She got MRIs done yesterday including MRI of the brain, MRI of the cervical spine, MRI of the back and MRI of both shoulders for multiple myeloma and history of plasmacytoma. OBJECTIVE: Vital signs: Temperature 97 degrees Fahrenheit, blood pressure 105/53, pulse 77, respiratory rate of 18, saturating 100% on nasal cannula at 3 liters. Intake and output: Urine output recorded yesterday as 130 mL Ultrafiltration with hemodialysis was 1 liter. Weight in the bed scale 56.5 kg, which is stable. PHYSICAL EXAMINATION: GENERAL: Patient is awake, alert and oriented x3, lying in bed in no apparent distress. HEAD & NECK: Extraocular muscles intact. Pupils equally round and reactive to light. Patient has facial swelling because of SVC thrombosis. Neck is supple. She has a right |IJ tunneled hemodialysis catheter. CARDIOVASCULAR: S1, S2, regular rate. No edema of the bilateral lower extremities. RESPIRATORY: Chest is clear to auscultation bilaterally. Bilateral equal air entry. No rales or rhonchi. ABDOMEN: Soft. Positive bowel sounds. Right lower quadrant ileostomy is noted. MUSCULOSKELETAL: No clubbing or cyanosis. Pulses are 2+. CENTRAL NERVOUS SYSTEM: No focal deficit. Power is 5/5 in all extremities, AV access, she has a right upper arm AV fistula with thrill and bruit. LABORATORY REVIEW: CBC showed WBC 4.9, hemoglobin 10.8, platelet count 199,000. BMP showed sodium 135, potassium 3.6, chloride 100, bicarb 29, BUN 20, creatinine 4.1. IMAGING STUDIES: An MRI of the right shoulder was done, which showed tears of the supraspinatus and infraspinatus tendons, a large complex glenohumeral joint effusion, a nonspecific lesion in the distal clavicles, possibly related to patient's myeloma. An MRI of the brain was also done yesterday, which showed no acute intracranial abnormality. MRI of the shoulders was also done; on the left side it showed moderate to large Hill-Sachs lesion in the humeral head. An MRI of the cervical spine was done, it showed degenerative findings greatest at the C5 to C6 level. CURRENT INPATIENT MEDICATIONS: The patients medications were all reviewed by myself. There is no significant change in the medications today as compared with yesterday. ASSESSMENT & PLAN: 1. End-stage renal disease on hemodialysis: The patient's regular dialysis days are Mondays, Wednesdays and Fridays. He was dialyzed yesterday. His next hemodialysis will be done tomorrow morning. 2. Multiple myeloma and relapse: MRIs were noted as mentioned above. Decision to restart chemo is as per HEM/ONC as an outpatient. 3. Anemia and end-stage renal disease in the setting of multiple myeloma: Patient is currently on Aranesp. Hemoglobin level is optimal. 4. Hypothyroidism: Continue current dose of Levothyroxine 50 mcg p.o. daily. 5. Chronic kidney disease/mineral bone disease: Continue current dose of Renvela 800 mg p.o. with meals. 6. SVC thrombosis: Continue Warfarin at this time. MTDD"
--- NOTE | 2020-08-11 11:50 | IPN ---
DATE: 06/23/2020 SUBJECTIVE: Patient was seen and examined at the bedside today morning during hemodialysis procedure. She is tolerating the hemodialysis procedure well. She reports that she is gaining strength with physical therapy and she might get discharged with home physical therapy instead of going to rehab. OBJECTIVE: Vital signs: Temperature is 97.7 degrees Fahrenheit, blood pressure 136/66, pulse is 71, respiratory rate of 18, saturating 100% on nasal cannula at 3 liters. Intake and output: There is no urine output recorded. Weight in the bed scale is 57 kg. CONTINUATION PHYSICAL EXAMINATION: GENERAL: Patient is awake, alert and oriented x3, lying in bed, in no apparent distress. HEAD & NECK: Pupils equally round and reactive to light. She has facial edema. Neck veins are engorged. She has a right IJ tunneled hemodialysis catheter. CARDIOVASCULAR: S1, S2, regular rate. No edema of the bilateral lower extremities. RESPIRATORY: Chest is clear to auscultation bilaterally. Bilateral equal air entry. No rales or rhonchi. She is wearing nasal cannula. ABDOMEN: Soft. Positive bowel sounds. She has right lower quadrant ileostomy. MUSCULOSKELETAL: No clubbing or cyanosis. Pulses are 2+. She has a right upper arm AV fistula. CENTRAL NERVOUS SYSTEM: No focal deficit. Power is 5/5 in all extremities. LABORATORY REVIEW: CBC showed WBC 5.7, hemoglobin 10.8 from yesterday. BMP done yesterday showed sodium 132, potassium 4.4, creatinine 5.4. CURRENT INPATIENT MEDICATIONS: Patients medications were all reviewed by myself. There is no change in the medications today as compared with yesterday. ASSESSMENT & PLAN: 1. End-stage renal disease: Patient is getting her regular hemodialysis every Friday, Friday and Friday. She is tolerating the hemodialysis procedure well today. Ultrafiltration goal is only 1 liter today. 2. Metabolic encephalopathy: It has resolved. It was secondary to use of opioids at home. 3. Multiple myeloma in relapse: Patient got MRIs done. She reported that she is going to have drainage of her bilateral shoulder effusions done by interventional radiology. The rest of the chemo plan is as per hematology/oncology. 4. Anemia and end-stage renal disease secondary to multiple myeloma: She is currently on Aranesp. Hemoglobin level is stable. 5. Chronic pancreatic insufficiency: Continue current dose of Creon. 6. Chronic kidney disease and mineral bone disease: Continue current dose of Renvela 800 mg p.o. with meals. MTDD
[2020-08-23 16:32] LABS: VENOUS O2 SATURATION 99.2 % (60.0-80.0); VENOUS PARTIAL PRESSURE CO2 34.7 mmHg (38.0-50.0); VENOUS PARTIAL PRESSURE O2 159.5 mmHg (30.0-50.0); VENOUS PH 7.509 UNITS (7.330-7.430); VENOUS SITE NOT GIVEN; VENOUS STANDARD HCO3 28.1 MEQ/L; VENOUS TOTAL CO2 28.1 MEQ/L (24.0-28.0)
[2020-09-03 10:53] LABS: ALBUMIN 3.8 GM/DL (3.2-5.2); ALT/SGPT 24 U/L (12-78); AMPHETAMINES LEVEL URINE NEGATIVE (NEGATIVE); BARBITURATES URINE NEGATIVE (NEGATIVE); BENZODIAZEPINES URINE NEGATIVE (NEGATIVE); BILIRUBIN,DIRECT 0.2 MG/DL (0.0-0.2); BILIRUBIN,TOTAL 1.2 MG/DL (0.2-1.0); CANNABINOIDS URINE NEGATIVE (NEGATIVE); COCAINE METABOLITE URINE NEGATIVE (NEGATIVE); METHADONE URINE NEGATIVE (NEGATIVE); OPIATES URINE POSITIVE (NEGATIVE); PHENCYCLIDINE URINE NEGATIVE (NEGATIVE); TOTAL PROTEIN 6.5 GM/DL (6.4-8.2)
[2020-09-10 13:02] LABS: CALCIUM LEVEL 8.7 MG/DL (8.8-10.2); CREATININE FOR GFR 7.18 MG/DL (0.55-1.30); GLOMERULAR FILTRATION RATE 5.9 (>39); POTASSIUM SERUM 4.1 MEQ/L (3.5-5.1)
== END 2020-06-24 10:49 | disposition home health service (06) | DRG 917 ==
LOC: M ED 04:30 → M PCU 05:30
PROVIDERS: ADMIT Internal Medicine; ATTEND Internal Medicine
PROC: 5A1D70Z Performance of Urinary Filtration, Intermittent, Less than 6 Hours Per Day (ICD-10-PCS; principal; 2020-06-21)
DX: T40.2X1A Poisoning by other opioids, accidental (unintentional), initial encounter (principal); G92 Toxic encephalopathy; N18.6 End stage renal disease; C90.02 Multiple myeloma in relapse; Z94.84 Stem cells transplant status; K86.1 Other chronic pancreatitis; Z66 Do not resuscitate; Z93.2 Ileostomy status; M25.411 Effusion, right shoulder; S46.911A Strain of unspecified muscle, fascia and tendon at shoulder and upper arm level, right arm, initial encounter; S46.912A Strain of unspecified muscle, fascia and tendon at shoulder and upper arm level, left arm, initial encounter; M25.412 Effusion, left shoulder; R26.81 Unsteadiness on feet; M48.02 Spinal stenosis, cervical region; E03.9 Hypothyroidism, unspecified; D63.1 Anemia in chronic kidney disease; Z79.01 Long term (current) use of anticoagulants; Z79.899 Other long term (current) drug therapy; Z79.891 Long term (current) use of opiate analgesic; Z88.1 Allergy status to other antibiotic agents; Z86.718 Personal history of other venous thrombosis and embolism; Z99.2 Dependence on renal dialysis; Z86.73 Personal history of transient ischemic attack (TIA), and cerebral infarction without residual deficits; X58.XXXA Exposure to other specified factors, initial encounter; Y92.9 Unspecified place or not applicable; M75.31 Calcific tendinitis of right shoulder; M75.32 Calcific tendinitis of left shoulder

== ENCOUNTER → 2020-06-28 | Outpatient (CLI) | payer MEDICARE, OTHER ==
[~2020-06-28] MED LIST changes: +ASPI81TA86 PO; +ATOR1TAB19 PO; +D 50CAP2 PO; +LIDO1PAD TOP; +LIDO5DIS41 TOP; -NORCO, ANEXSIA 5/325MG TABLET (HYDROcodone/ACETAMINOPHEN) ONE; +TRAM50TA2 PO
[2020-06-28 12:50] LABS: INR 1.55; PROTHROMBIN TIME 18.9 SECONDS (11.8-14.0)
== END ==
LOC: M PLALAB 09:28
PROVIDERS: ATTEND Family Medicine
DX: Z51.81 Encounter for therapeutic drug level monitoring (principal); Z79.01 Long term (current) use of anticoagulants

== ENCOUNTER → 2020-07-05 | Outpatient (CLI) | payer MEDICARE, OTHER ==
[2020-07-05 15:16] LABS: INR 2.49; PROTHROMBIN TIME 27.5 SECONDS (11.8-14.0)
== END ==
LOC: M PLALAB 09:16
PROVIDERS: ATTEND Family Medicine
DX: Z79.01 Long term (current) use of anticoagulants (principal)

== ENCOUNTER → 2020-07-12 | Outpatient (CLI) | payer MEDICARE, OTHER ==
[2020-07-12 15:30] LABS: INR 3.78; PROTHROMBIN TIME 38.2 SECONDS (11.8-14.0)
== END ==
LOC: M PLALAB 09:25
PROVIDERS: ATTEND Family Medicine
DX: Z79.01 Long term (current) use of anticoagulants (principal)

== ENCOUNTER → 2020-07-21 | Outpatient (CLI) | payer MEDICARE, OTHER ==
[2020-07-21 12:21] LABS: INR 4.24; PROTHROMBIN TIME 41.8 SECONDS (12.5-14.3)
== END ==
LOC: M PLALAB 09:24
PROVIDERS: ATTEND Family Medicine
DX: Z79.01 Long term (current) use of anticoagulants (principal)

== ENCOUNTER 2020-07-31 08:32 | Emergency (ER) | payer MEDICARE, OTHER ==
[~2020-07-31] VITALS: Ht 162.6 cm; Wt 56.1 kg
[~2020-07-31 08:32] MED LIST changes: -ASPI81TA86 PO; -LIDO1PAD TOP
[2020-07-31] MEDS ORDERED: MORPHINE 2 MG/ML 1ML VIAL (J2270) IV PRN (09:00)
[2020-07-31] MEDS ORDERED: ONDANSETRON 4MG/2ML VIAL IV ONE (09:00)
[2020-07-31 09:51] LABS: BASO % 0.2 % (0.0-1.0); EOS # 0.1 10^3/uL (0.0-0.5); EOS % 0.9 % (0.0-3.0); HEMATOCRIT 29.7 % (36.0-47.0); HEMOGLOBIN 9.7 g/dl (12.0-15.5); LYMPH # 1.1 10^3/uL (1.5-5.0); LYMPH % 19.7 % (24.0-44.0); MEAN CORPUSCULAR HEMOGLOBIN 32.8 pg (27.0-33.0); MEAN CORPUSCULAR HGB CONC 32.7 g/dl (32.0-36.5); MEAN CORPUSCULAR VOLUME 100.3 fl (80.0-96.0); MONO # 0.6 10^3/uL (0.0-0.8); MONO % 9.8 % (0.0-5.0); NEUTROPHILS # 3.9 10^3/uL (1.5-8.5); NEUTROPHILS % 68.9 % (36.0-66.0); PLATELET COUNT, AUTOMATED 145 10^3/uL (150-450); RED BLOOD COUNT 2.96 10^6/uL (4.00-5.40); WHITE BLOOD COUNT 5.6 10^3/uL (4.0-10.0)
[2020-07-31 10:31] LABS: ALBUMIN 3.2 GM/DL (3.2-5.2); BILIRUBIN,DIRECT 0.3 MG/DL (0.0-0.2); BILIRUBIN,TOTAL 1.2 MG/DL (0.2-1.0); CALCIUM LEVEL 9.5 MG/DL (8.8-10.2); CREATININE FOR GFR 3.82 MG/DL (0.55-1.30); GLOMERULAR FILTRATION RATE 12.3 (>39); POTASSIUM SERUM 3.7 MEQ/L (3.5-5.1); TOTAL PROTEIN 5.5 GM/DL (6.4-8.2)
[2020-07-31] MEDS ORDERED: HYDR-3713 PO ×2 (10:31)
[2020-07-31] MEDS ORDERED: WARF-23 PO (10:31)
[2020-07-31] MEDS ORDERED: ACYC1CAP20 PO (10:31)
[2020-07-31] MEDS ORDERED: ASPI81TA86 PO (10:31)
[2020-07-31] MEDS ORDERED: WARF-21 PO (10:31)
--- NOTE | 2020-07-31 12:12 | REPVR ---
PROCEDURE INFORMATION: Exam: US Abdomen, Limited; Right Upper Quadrant Exam date and time: 07/31/2020 11:37 AM Age: 75 years old Clinical indication: Abdominal pain; Acute; Additional info: Right upper quadrant pain TECHNIQUE: Imaging protocol: US abdomen. Real time ultrasound with image documentation. Limited exam focused on the right upper quadrant. COMPARISON: 1. LIVER US 02/15/2019 8:[address] ABD PELVIS W/O CONTRAST 11/28/2019 1:39:56 PM FINDINGS: Liver: The liver has mild diffuse heterogeneous echotexture. No focal hepatic mass is identified. Gallbladder: No abnormal gallbladder wall thickening. No gallstones. No pericholecystic fluid. Common bile duct: Common bile duct diameter = 0.42 cm. No intrahepatic or extrahepatic bile duct dilation is imaged. Pancreas: The pancreas is incompletely visualized. The visualized portions of the pancreas are unremarkable. Right kidney: Diffuse right renal parenchymal atrophy. Right kidney length = 7.6 cm. No right hydronephrosis. Right kidney upper pole 1.9 cm anechoic circumscribed simple-appearing cyst. IMPRESSION: 1. Mild diffuse heterogeneous hepatic echotexture is nonspecific but may indicate diffuse hepatocellular disease. Clinical correlation is needed. 2. Right renal atrophy. Right renal simple-appearing cyst. COMMENTS: Consistent with the [employer]'s Incidental Findings Committee white paper (J Am Rohit Radiol 2018): Any incidental renal lesion less than 1 cm or classified as too small to characterize, or any incidental cystic renal lesion characterized as simple-appearing, is likely benign. No follow-up imaging is recommended for these lesions per consensus recommendations based on imaging criteria. Electronically signed by: Elvis Leung On 07/31/2020 12:12:01 PM
[2020-07-31] MEDS: GASTROGRAFIN SOLUTION 30ML PO SCH ×2 (13:38→13:39)
[2020-07-31] MEDS ORDERED: ISOVUE-370 76% 100ML VIAL As Ordered ONE (14:37)
--- NOTE | 2020-07-31 15:48 | REPVR ---
PROCEDURE INFORMATION: Exam: CT Abdomen And Pelvis With Contrast Exam date and time: 07/31/2020 2:49 PM Age: 75 years old Clinical indication: Abdominal pain; Additional info: Right abdominal pain, ulcerative colitis with ostomy, multiple myeloma, end-stage renal disease on hemodialysis. TECHNIQUE: Imaging protocol: Computed tomography of the abdomen and pelvis with intravenous contrast. Coronal and sagittal reformats were created and reviewed. Radiation optimization: All CT scans at this facility use at least one of these dose optimization techniques: automated exposure control; mA and/or kV adjustment per patient size (includes targeted exams where dose is matched to clinical indication); or iterative reconstruction. Contrast material: ISOVUE 370; Contrast volume: 100 ml; Contrast route: INTRAVENOUS (IV); COMPARISON: 1. CT ABD PELVIS W/O CONTRAST 11/28/2019 1:39 PM 2. GALLBLADDER US 07/31/2020 11:21:55 AM FINDINGS: Lungs: Bilateral mild dependent atelectasis. Liver: Liver is unremarkable. Gallbladder and bile ducts: The gallbladder is unremarkable. No intrahepatic or extrahepatic bile duct dilation. Pancreas: Pancreas is unremarkable. Spleen: Spleen is unremarkable. Adrenals: Adrenal glands are unremarkable. Kidneys and ureters: Bilateral renal atrophy. Bilateral renal circumscribed hypoattenuating lesions consistent with simple appearing cysts. Multiple additional small bilateral hypoattenuating renal lesions are too small to characterize, probably cysts. No hydronephrosis of either kidney. No abnormal ureteral dilation. Stomach and bowel: Status post proctectomy. Status post colectomy. An enterostomy is present at the right anterior abdominal wall. The stomach is decompressed; this limits evaluation of its wall thickness. No evidence of bowel obstruction. Oral contrast has progressed into the ostomy bag. Numerous diverticula of bowel loops within the left abdomen and pelvis are redemonstrated. While no definitive bowel inflammation is identified, there are some small bowel loops present within the bilateral pelvis that are incompletely distended and mild diffuse wall thickening of these bowel loops is not excludable. Appendix: The appendix is not identified. Intraperitoneal space: Numerous abdominal and pelvic surgical clips. No free intraperitoneal fluid. No pneumoperitoneum. Vasculature: Widespread atherosclerotic calcifications. No abdominal aortic aneurysm. Moderate narrowing of the celiac artery origin (luminal stenosis of approximately the 50%) is redemonstrated; this may be secondary to compression by the crossing median arcuate ligament. Lymph nodes: No enlarged lymph nodes. Urinary bladder: Urinary bladder is unremarkable. Reproductive: The uterus appears present, however it is not well visualized due to artifact from adjacent metallic surgical clips. No adnexal mass is identified. Bones/joints: The bones are diffusely demineralized. T12, L1, and L2 vertebral body old compression fractures with indwelling vertebroplasty cement redemonstrated. L4 vertebral body old compression fracture with mild loss of height redemonstrated. Multilevel degenerative spine disease. Soft tissues: Numerous dilated collateral vessels present within the left chest wall and the anterior abdominal wall. Bilateral fat containing inguinal hernias. The bilateral upper extremities are partially imaged. There is infiltration of the subcutaneous fat at the dependent portions of the bilateral upper extremities possibly representing dependent edema or cellulitis. Mild infiltration of the subcutaneous fat of the dependent imaged thoracic and abdominal body wall and bilateral buttocks suggestive of dependent edema or cellulitis. IMPRESSION: 1. While no definitive bowel inflammation is identified, mild enteritis of decompressed small bowel loops present within the abdomen and pelvis is not entirely excluded as described. No evidence of bowel obstruction. 2. Findings suggestive of dependent body wall edema and/or cellulitis involving the upper extremities and abdomen/pelvis body wall. 3. Please see the body of the report for other findings as described. COMMENTS: Consistent with the [employer]'s Incidental Findings Committee white paper (J Am Rohit Radiol 2018): Any incidental renal lesion less than 1 cm or classified as too small to characterize, or any incidental cystic renal lesion characterized as simple-appearing, is likely benign. No follow-up imaging is recommended for these lesions per consensus recommendations based on imaging criteria. Electronically signed by: Elvis Leung On 07/31/2020 15:48:06 PM
[2020-07-31 16:45] VITALS: BP 118/68
--- NOTE | 2020-08-02 23:27 | ED PDOC ---
Post-Departure Follow-Up dr nguyễn faxed formal rpeort of gb us for Candelaria Mckeon MD Aug 02, 2020 23:27
== END 2020-07-31 17:01 | disposition home or self-care (01) ==
LOC: M ED 08:32 → EDBD 08:32 → M ED 17:01
DX: R10.9 Unspecified abdominal pain (principal); C90.00 Multiple myeloma not having achieved remission; N18.6 End stage renal disease; Z99.2 Dependence on renal dialysis; K76.89 Other specified diseases of liver; K63.89 Other specified diseases of intestine; R60.9 Edema, unspecified; Z88.1 Allergy status to other antibiotic agents; Z79.899 Other long term (current) drug therapy
CPT/HCPCS: 74177; 76705; 80048; 80076; 83605; 83690; 85025; 87040; 93041; 96374; 96375; 99285; J2270; J2405; Q9963; Q9967

== ENCOUNTER → 2020-08-02 | Outpatient (CLI) | payer MEDICARE, OTHER ==
[~2020-08-02] MED LIST changes: +ASPI81TA86 PO; +LIDO1PAD TOP
[2020-08-02 11:34] LABS: INR 1.65; PROTHROMBIN TIME 19.9 SECONDS (12.5-14.3)
== END ==
LOC: M PLALAB 09:22
PROVIDERS: ATTEND Family Medicine
DX: Z79.01 Long term (current) use of anticoagulants (principal)

== ENCOUNTER → 2020-08-18 | Outpatient (CLI) | payer MEDICARE, OTHER ==
[2020-08-18 10:28] LABS: INR 1.67; PROTHROMBIN TIME 20.1 SECONDS (12.5-14.3)
== END ==
LOC: M PLALAB 09:07
PROVIDERS: ATTEND Family Medicine
DX: Z51.81 Encounter for therapeutic drug level monitoring (principal); Z79.01 Long term (current) use of anticoagulants

== ENCOUNTER 2020-08-28 09:52 | Inpatient (IN) | payer MEDICARE, OTHER ==
[~2020-08-28] VITALS: Ht 162.6 cm; Wt 53.1 kg
[~2020-08-28 09:52] MED LIST changes: -LIDO1PAD TOP
[2020-08-28 10:53] LABS: BASO % 0.2 % (0.0-1.0); EOS % 0.5 % (0.0-3.0); HEMATOCRIT 27.3 % (36.0-47.0); HEMOGLOBIN 8.8 g/dl (12.0-15.5); LYMPH # 0.9 10^3/uL (1.5-5.0); LYMPH % 21.6 % (24.0-44.0); MEAN CORPUSCULAR HEMOGLOBIN 32.5 pg (27.0-33.0); MEAN CORPUSCULAR HGB CONC 32.2 g/dl (32.0-36.5); MEAN CORPUSCULAR VOLUME 100.7 fl (80.0-96.0); MONO # 0.5 10^3/uL (0.0-0.8); MONO % 10.6 % (0.0-5.0); NEUTROPHILS # 2.8 10^3/uL (1.5-8.5); NEUTROPHILS % 66.9 % (36.0-66.0); PLATELET COUNT, AUTOMATED 168 10^3/uL (150-450); RED BLOOD COUNT 2.71 10^6/uL (4.00-5.40); WHITE BLOOD COUNT 4.3 10^3/uL (4.0-10.0)
--- NOTE | 2020-08-28 11:09 | REP ---
INDICATION: Syncope/near-syncope. COMPARISON: 06/16/2020. TECHNIQUE: SINGLE PORTABLE AP VIEW OF THE CHEST WAS PERFORMED. FINDINGS: THERE IS NO ACUTE INFILTRATE OR PULMONARY EDEMA. LUNGS demonstrate mild stable bibasilar fibrotic change.. HEART IS NOT SIGNIFICANTLY ENLARGED. MEDIASTINAL SILHOUETTE IS UNREMARKABLE except for mild calcification of the thoracic aorta.. THE VISUALIZED OSSEOUS STRUCTURES ARE INTACT. Metallic clips are seen in both axillary regions, as well as a stent in the left axilla. Right central venous catheter is again noted with the tip in the superior vena cava. IMPRESSION: NO ACUTE PULMONARY DISEASE. <Electronically signed by Justin Ugalde > 08/28/20 1830
[2020-08-28 11:34] LABS: FREE T4 1.64 NG/DL (0.76-1.46); MAGNESIUM LEVEL 1.8 MG/DL (1.8-2.4); THYROID STIMULATING HORMONE 2.11 uIU/ML (0.358-3.740)
[2020-08-28] MEDS ORDERED: ACETAMINOPHEN 500 MG TAB PO ONE (12:00)
[2020-08-28] MEDS ORDERED: NS 1,000 ML IV SCH (12:00)
[2020-08-28] MEDS ORDERED: NS 500 ML IV ONE (12:00)
[2020-08-28] MEDS ORDERED: LEVO75TA4 PO (12:44)
[2020-08-28] MEDS ORDERED: TRAM50TA2 PO (12:44)
[2020-08-28] MEDS ORDERED: LIDO1PAD TOP (12:44)
--- NOTE | 2020-08-28 12:55 | HPEPDOC ---
[facility] Medical History & Physical Date of Admission Aug 28, 2020 Date of Service: Aug 28, 2020 Attending Physician: Naila Baca MD History and Physical CHIEF COMPLAINT: Loss of consciousness HISTORY OF PRESENT ILLNESS: Patient is a 75-year-old female with past mental history of end-stage renal disease on hemodialysis, chronic anemia, Crohn's disease status post colectomy and ostomy placement, hypothyroidism, multiple myeloma status post an stem cell transplant, secondary hyperparathyroidism who presented to [facility] ER after having syncopal episode witnessed in dialysis. The patient does not remove fluid during any hemodialysis sessions because she has an ostomy which has a history of havin g significant output. Hemodialysis essentially filtering for her. Her session her blood pressure Dropping into the 70s systolic. The patient became symptomatic with lightheadedness and dizziness. She was given 500 mL of normal saline during her dialysis session per nephrology. When her blood pressure was checked when she stood up the patient began having lightheadedness, dizziness and she syncopized witnessed by the otr owner operator. She had loss of consciousness for less than 1 minute and when she awoke she was complaining of chills and riders. The patient states that over the past several days she has noticed increased ostomy output, sometimes having to change her back multiple times throughout the evening which is different for her. She denies fevers, chills, nausea, vomiting. She has baseline shortness of breath but denies chest pain, recent illnesses, diet changes, abdominal pain. The emergency room her vital signs showed blood pressure [id number], other VS stable. CXR wnl. All labs were unremarkable outside of chronic anemia. Patient was given another 500 mL bolus and started on 75 cc/hr of NS continous per nephrology. Patient was very lightheaded when attempted to even sit up in bed with orthostatics +. Patient was admitted for syncope likely 2/2 to orthostatic hypotension 2/2 to high ostomy output. REVIEW OF SYSTEMS: Neg except for what is never mentioned above PAST MEDICAL HISTORY: Basal cell carcinoma Right arm melanoma Melanoma IgG kappa multiple myeloma diagnosed 2008, status post stem cell transplant, with recurrence and relapse requiring chemotherapy and radiation. Peripheral neuropathy End-stage renal disease, on maintenance dialysis . Secondary hyperparathyroidism. Anemia of chronic disease due to renal failure. Postherpetic neuralgia. Crohn disease, status post colectomy and ileostomy. Hypothyroidism. Transient ischemic attack. PAST SURGICAL HISTORY: Colectomy with ostomy placement PermaCath Vertebroplasty lumbar spine. AV fistula, clotting and bleeding requiring ligation, removal. Appendectomy Right arm melanoma removal. Basal cell carcinoma removal. Melanoma resection from her extremity Stem cell transplant FAMILY HISTORY: Patient lives at home, quit smoking in the 80s. Denies alcohol or any recreational drug use. PCP Dr. Herrera, nephrology-Dr. Mckenzie, Gi-Dr. Licona, Heme/onc- Dr. Woodward FAMILY HISTORY: Mother- DM, HTN, CAD. at 87 y/o Father- Unknown to patient Sister- DM. alive Brother- CVA, DM. alive ALLERGIES: Please see below. HOME MEDICATIONS: Please see below. PHYSICAL EXAMINATION: VS: Please see below CONSTITUTIONAL: No acute distress, resting comfortably, AAO x 3 EYES: PERRLA, EOM intact HENT, MOUTH: Normocephalic, atraumatic, moist mucous membranes NECK: SUPPLE, no JVD, no lymphadenopathy, no carotid bruit CV: Regular rate and rhythm, S1S2 normal, no murmurs/rubs/gallops CHEST: right chest catheter RESPIRATORY: Clear to auscultation bilaterally, no rales/rhonchi/wheezes GI: Right lower quadrant ostomy bag, full but secure in place. BS positive in 4 quadrants, soft, nontender, nondistended, no rebound or guarding, no organomegaly : Deferred MUSCULOSKELETAL: Normal ROM. No cyanosis, clubbing, swelling, joint deformity, extremity edema INTEGUMENTARY: Intact, no rashes, no lesions, no erythema NEUROLOGIC: Cranial Nerves II-XII are intact, no focal deficits PSYCHIATRIC: Mood and affect are normal LABORATORY DATA: Please see below IMAGING: CXR: no acute cardiopulmonary abnormalities ASSESSMENT: 75-year-old female with past mental history of end-stage renal disease on hemodialysis, chronic anemia, Crohn's disease status post colectomy and ostomy placement, hypothyroidism, multiple myeloma status post an stem cell transplant, secondary hyperparathyroidism admitted for syncope likely 2/2 to orthostatic hypotension 2/2 to high ostomy output. PLAN: Syncope likely 2/2 to orthostatic hypotension -BP systolics in 70's at HD, slightly improved with two individual 500 mL boluses, continuous fluids -Associated with lightheadedness, weakness -F/u on further causes of high output below -C/w IVFs, telemetry, orthostatics bid, will need PT/OT when BP improves. High ostomy output, r/o infectious cause -Hx of colectomy and ostomy placement 2/2 to Crohn's disease -F/u GI panel -C/w IVFs, close monitoring of ostomy o/p to determine if we need to incr. flui ds further ESRD on HD (TThSat) -Fluid is not removed on her sessions due to ostomy having high output frequently -Nephrology is consulted to follow IgG kappa multiple myeloma -Diagnosed 2008, status post stem cell transplant, with recurrence and relapse -Currently gets chemotherapy monthly, last dose 08/24/20 -Follows with [facility], Dr. Woodward Crohn's disease s/p colectomy and ostomy placement -F/u with GI as o/p Hypothyroidism -Levothyroxine Anemia of chronic disease likely 2/2 to ESRD -Hgb 8.8, baseline 9-10. has received 1+ liter fluid today so possibly lower than normal due to dilution DVT Px -heparin DISPOSITION: Admitted under inpatient status to PCU. Nephrology consulted. PT needed prior to discharge. Plan is discharge home when medically improved. Vital Signs Vital Signs Date Time Temp Pulse Resp B/P (MAP) Pulse Ox O2 Delivery O2 Flow Rate FiO2 08/28/20 11:50 72 18 91/55 (67) 100 Room Air 08/28/20 10:09 97.6 Laboratory Data Labs 24H Laboratory Tests 2 08/28/20 10:38: Immature Granulocyte % (Auto) 0.2, Neutrophils (%) (Auto) 66.9H, Lymphocytes (%) (Auto) 21.6L, Monocytes (%) (Auto) 10.6H, Eosinophils (%) (Auto) 0.5, Basophils (%) (Auto) 0.2, Neutrophils # (Auto) 2.8, Lymphocytes # (Auto) 0.9L, Monocytes # (Auto) 0.5, Eosinophils # (Auto) 0.0, Basophils # (Auto) 0.0, Nucleated Red Blood Cells % (auto) 0.0, Magnesium Level 1.8, Thyroid Stimulating Hormone (TSH) 2.110, Free Thyroxine 1.64H 08/28/20 10:40: POC Lactate (Misc Panel) 1.07 08/28/20 10:43: Bedside Glucose (Misc Panel) 83 08/28/20 10:44: POC Glucose (Misc Panel) 89, POC Sodium (Misc Panel) 139, POC Potassium (Misc Panel) 3.5, POC Chloride (Misc Panel) 96L, POC Total CO2 (Misc Panel) 30.0H, POC Blood Urea Nitrogen (Misc Panel 11, POC Ionized Calcium (Misc Panel) 4.5, POC Creatinine (Misc Panel) 3.1H, POC Hematocrit (Misc Panel) 26.0L 08/28/20 10:45: POC Troponin I (Misc) 0.00 CBC/BMP Laboratory Tests 08/28/20 10:38 Home Medications Scheduled Acyclovir (Acyclovir) 200 Mg Capsule, 200 MG PO BID Atorvastatin Calcium (Atorvastatin Calcium) 10 Mg Tablet, 10 MG PO DAILY Cholecalciferol (Vitamin D3) (Vitamin D3) 125 Mcg Capsule, 5,000 UNITS PO DAILY Cyclosporine (Restasis) 0.05% Droperette, 1 DROP OU BID Dexamethasone (Dexamethasone) 4 Mg Tablet, 12 MG PO ASDIRECTED TAKE BEFORE CHEMO Levothyroxine Sodium (Levothyroxine Sodium) 75 Mcg Tablet, 75 MCG PO DAILY Lidocaine (Lidocaine) 5% Adh..patch, 1 PATCH TOP QHS APPLIES TO RIGHT SHOULDER Lipase/Protease/Amylase (Creon Dr 36,000 Units Capsule) 1 Each Capsule.dr, 2 CAP PO WM Sevelamer Carbonate (Renvela) 800 Mg Tablet, 800 MG PO WM Warfarin Sodium (Warfarin Sodium) 5 Mg Tablet, 5 MG PO DAILY Scheduled PRN Tramadol HCl (Tramadol HCl) 50 Mg Tablet, 50 MG PO Q12H PRN for PAIN Allergies Coded Allergies: vancomycin (Verified Allergy, Intermediate, RASH/ITCHING, 01/24/20) A-FIB/CHADSVASC A-FIB History Current/History of A-Fib/PAF?: No Current PO Anticoag Therapy: No Age/Risk Factor Scoring CHADSVASC: CHADSVASC Response (Comments) Value Age Risk Factor Age 65-74 years old 1 Gender Risk Factor Female 1 Hx of CHF No 0 Hx of HTN No 0 Hx of Stroke/TIA/or VTE No 0 Hx of Diabetes No 0 Hx of Vascular Disease No 0 Total 2 Treatment Treatment ordered: Other Other anticoagulant ordered: heparin Naila Baca MD Aug 28, 2020 12:55
[2020-08-28] MEDS: NS 1,000 ML IV SCH (13:13)
[2020-08-28] MEDS ORDERED: traMADol 50 MG TAB PO PRN (13:30)
[2020-08-28 16:20] VITALS: BP 113/51
[2020-08-28 16:32] LABS: INR 1.28; PROTHROMBIN TIME 16.3 SECONDS (12.5-14.3)
[2020-08-28 16:33] LABS: PARTIAL THROMBOPLASTIN TIME 38.7 SECONDS (24.2-38.5)
[2020-08-28] MEDS: (RENVELA) SEVELAMER **CARBONate** 800 MG TAB PO SCH (17:48)
[2020-08-28] MEDS: CREON-12 CAPSULE PO SCH (17:49)
[2020-08-28 20:00] VITALS: BP 133/60
[2020-08-28] MEDS ORDERED: LIDOCAINE 5% (LIDODERM) PATCH TOP SCH (21:00)
[2020-08-28] MEDS: ACYCLOVIR 200 MG CAPSULE PO SCH ×2 (21:00→22:17)
[2020-08-29] VITALS: BP 149/69
[2020-08-29 04:00] VITALS: BP 128/57
[2020-08-29] MEDS ORDERED: LEVOTHYROXINE 75MCG TABLET (0.075MG) PO SCH (06:00)
[2020-08-29] MEDS: NS 1,000 ML IV SCH (06:01)
[2020-08-29 06:32] LABS: HEMOGLOBIN 9.1 g/dl (12.0-15.5); MEAN CORPUSCULAR HEMOGLOBIN 33.8 pg (27.0-33.0); MEAN CORPUSCULAR HGB CONC 32.5 g/dl (32.0-36.5); MEAN CORPUSCULAR VOLUME 104.1 fl (80.0-96.0); PLATELET COUNT, AUTOMATED 158 10^3/uL (150-450); RED BLOOD COUNT 2.69 10^6/uL (4.00-5.40); WHITE BLOOD COUNT 4.4 10^3/uL (4.0-10.0)
[2020-08-29 06:53] LABS: ALBUMIN 3.3 GM/DL (3.2-5.2); BILIRUBIN,TOTAL 0.8 MG/DL (0.2-1.0); CREATININE FOR GFR 4.89 MG/DL (0.55-1.30); GLOMERULAR FILTRATION RATE 9.3 (>39); POTASSIUM SERUM 4.4 MEQ/L (3.5-5.1); TOTAL PROTEIN 5.4 GM/DL (6.4-8.2)
[2020-08-29] MEDS: CREON-12 CAPSULE PO SCH ×2 (07:55→12:25)
[2020-08-29] MEDS: (RENVELA) SEVELAMER **CARBONate** 800 MG TAB PO SCH ×2 (07:55→12:25)
[2020-08-29] MEDS: ACYCLOVIR 200 MG CAPSULE PO SCH (07:55)
[2020-08-29 08:00] VITALS: BP 123/70
[2020-08-29] MEDS ORDERED: ATORVASTATIN 10 MG TAB PO SCH (09:00)
--- NOTE | 2020-08-29 09:17 | ECGEPIP ---
[facility] - ED Test Date: 2020-08-28 Pat Name: AD JOHNSTON Department: Room: - Gender: Female Consulting Engineer: myron gupta : 1945 Requested By: AUBREY CARMICHAEL Order Number: [id number] Reading MD: Peyton Vickers Measurements Intervals Lucinda Rate: 69 P: 68 PA: 123 QRS: 56 QRSD: 84 T: 59 QT: 424 QTc: 456 Interpretive Statements SINUS RHYTHM SIMILAR 04/11/20 Electronically Signed on 08-29-2020 9:16:43 EDT by Peyton Vickers
[2020-08-29] MEDS ORDERED: WARFARIN SOD 5MG TAB PO SCH (17:00)
--- NOTE | 2020-08-29 17:04 | DS.PDOC ---
Discharge Summary General Date of Admission Aug 28, 2020 at 12:20 Date of Discharge 08/29/20 Discharge Summary PROCEDURES PERFORMED DURING STAY: [None]. ADMITTING DIAGNOSES: Syncope orthostatic hypotension High ostomy output ESRD multiple myeloma Hypothyroidism Crohn's disease Anemia of chronic disease DISCHARGE DIAGNOSES: Syncope orthostatic hypotension High ostomy output ESRD multiple myeloma Hypothyroidism Crohn's disease Anemia of chronic disease COMPLICATIONS/CHIEF COMPLAINT: Orthostatic Hypotension,Syncope. HISTORY OF PRESENT ILLNESS:75-year-old female with past mental history of end- stage renal disease on hemodialysis, chronic anemia, Crohn's disease status post colectomy and ostomy placement, hypothyroidism, multiple myeloma status post an stem cell transplant, secondary hyperparathyroidism admitted for syncope likely 2/2 to orthostatic hypotension 2/2 to high ostomy output. HOSPITAL COURSE: During hospital stay following issue addressed Syncope likely 2/2 to orthostatic hypotension -BP systolics in 70's at HD, slightly improved with two individual 500 mL boluses, continuous fluids -Associated with lightheadedness, weakness -F/u on further causes of high output below -C/w IVFs, telemetry, orthostatics bid, will need PT/OT when BP improves. High ostomy output, r/o infectious cause -Hx of colectomy and ostomy placement 2/2 to Crohn's disease GI panel negative -C/w IVFs, close monitoring of ostomy o/p to determine if we need to incr. fluids further ESRD on HD (TThSat) -Fluid is not removed on her sessions due to ostomy having high output frequentl y IgG kappa multiple myeloma -Diagnosed 2008, status post stem cell transplant, with recurrence and relapse -Currently gets chemotherapy monthly, last dose 08/24/20 -Follows with [facility], Dr. Woodward Crohn's disease s/p colectomy and ostomy placement -F/u with GI as o/p Hypothyroidism -Levothyroxine Anemia of chronic disease likely 2/2 to ESRD -Hgb 8.8, baseline 9-10. has received 1+ liter fluid today so possibly lower than normal due to dilution DVT Px -heparin DISCHARGE MEDICATIONS: Please see below. ALLERGIES: Please see below. PHYSICAL EXAMINATION ON DISCHARGE: VITAL SIGNS: Please see below. CONSTITUTIONAL: No acute distress, resting comfortably, AAO x 3 EYES: PERRLA, EOM intact HENT, MOUTH: Normocephalic, atraumatic, moist mucous membranes NECK: SUPPLE, no JVD, no lymphadenopathy, no carotid bruit CV: Regular rate and rhythm, S1S2 normal, no murmurs/rubs/gallops CHEST: right chest catheter RESPIRATORY: Clear to auscultation bilaterally, no rales/rhonchi/wheezes GI: Right lower quadrant ostomy bag, full but secure in place. BS positive in 4 quadrants, soft, nontender, nondistended, no rebound or guarding, no organomegaly : Deferred MUSCULOSKELETAL: Normal ROM. No cyanosis, clubbing, swelling, joint deformity, extremity edema INTEGUMENTARY: Intact, no rashes, no lesions, no erythema NEUROLOGIC: Cranial Nerves II-XII are intact, no focal deficits PSYCHIATRIC: Mood and affect are normal LABORATORY DATA: Please see below. IMAGING: INDICATION: Syncope/near-syncope. COMPARISON: 06/16/2020. TECHNIQUE: SINGLE PORTABLE AP VIEW OF THE CHEST WAS PERFORMED. FINDINGS: THERE IS NO ACUTE INFILTRATE OR PULMONARY EDEMA. LUNGS demonstrate mild stable bibasilar fibrotic change.. HEART IS NOT SIGNIFICANTLY ENLARGED. MEDIASTINAL SILHOUETTE IS UNREMARKABLE except for mild calcification of the thoracic aorta.. THE VISUALIZED OSSEOUS STRUCTURES ARE INTACT. Metallic clips are seen in both axillary regions, as well as a stent in the left axilla. Right central venous catheter is again noted with the tip in the superior vena cava. IMPRESSION: NO ACUTE PULMONARY DISEASE. <Electronically signed by Justin Ugalde > 08/28/20 1105 DD: Justin Ugalde MD, MD 08/28/20 1103 DT: MAKENZIE 08/28/20 110 DS: SHWETHA 08/28/20 1103 08/28/20 1103 PROGNOSIS: Fair ACTIVITY: [As tolerated]. DIET: Cardiac DISPOSITION: 01 Home, Self-Care. ITEMS TO FOLLOWUP ON ON OUTPATIENT: Follow-up with nocturnist physician in the outpatient settings and PCP DISCHARGE CONDITION: [Stable]. TIME SPENT ON DISCHARGE: Greater than 30 minutes. Vital Signs/I&Os Vital Signs Date Time Temp Pulse Resp B/P (MAP) Pulse Ox O2 Delivery O2 Flow Rate FiO2 08/29/20 08:00 97.7 69 18 123/70 (87) 100 Nasal Cannula 2.0 I&O- Last 24 Hours up to 6 AM 08/29/20 06:00 Intake Total 1160 ml Output Total 1075 ml Balance 85 ml Laboratory Data Labs 24H Laboratory Tests 2 08/29/20 05:54: Nucleated Red Blood Cells % (auto) 0.0, Anion Gap 7L, Glomerular Filtration Rate 9.3L, Calcium Level 9.0, Total Bilirubin 0.8, Aspartate Amino Transf (AST/SGOT) 16, Alanine Aminotransferase (ALT/SGPT) 19, Alkaline Phosphatase 56, Total Protein 5.4L, Albumin 3.3, Albumin/Globulin Ratio 1.6 CBC/BMP Laboratory Tests 08/29/20 05:54 Discharge Medications Scheduled Acyclovir (Acyclovir) 200 Mg Capsule, 200 MG PO BID, (Reported) Atorvastatin Calcium (Atorvastatin Calcium) 10 Mg Tablet, 10 MG PO DAILY, (Reported) Cholecalciferol (Vitamin D3) (Vitamin D3) 125 Mcg Capsule, 5,000 UNITS PO DAILY, (Reported) Cyclosporine (Restasis) 0.05% Droperette, 1 DROP OU BID, (Reported) Dexamethasone (Dexamethasone) 4 Mg Tablet, 12 MG PO ASDIRECTED, (Reported) TAKE BEFORE CHEMO Levothyroxine Sodium (Levothyroxine Sodium) 75 Mcg Tablet, 75 MCG PO DAILY, (Reported) Lidocaine (Lidocaine) 5% Adh..patch, 1 PATCH TOP QHS, (Reported) APPLIES TO RIGHT SHOULDER Lipase/Protease/Amylase (Creon Dr 36,000 Units Capsule) 1 Each Capsule.dr, 2 CAP PO WM, (Reported) Sevelamer Carbonate (Renvela) 800 Mg Tablet, 800 MG PO WM, (Reported) Warfarin Sodium (Warfarin Sodium) 5 Mg Tablet, 5 MG PO DAILY, (Reported) Scheduled PRN Tramadol HCl (Tramadol HCl) 50 Mg Tablet, 50 MG PO Q12H PRN for PAIN, (Reported) Allergies Coded Allergies: vancomycin (Verified Allergy, Intermediate, RASH/ITCHING, 01/24/20) FELIX SAMPSON DO Aug 29, 2020 17:04
--- NOTE | 2020-08-30 09:33 | IPN ---
DATE: 08/29/2020 SUBJECTIVE: Yoana was seen and examined this morning at the bedside. She feels much better over the past 24 hours. She has continued on IV fluids overnight and has received about a 1.5 liter of IV fluids total. Her blood pressures have come up nicely and she tells me that her ostomy output has also decreased and there is no longer high output. Her gastrointestinal PCR is still pending. She is tolerating an oral diet. She wants to go home. PHYSICAL EXAMINATION: VITAL SIGNS: Temperature 97.7, pulse 69, respiratory rate 18, blood pressure is 123/70, saturating 100% on 2 liters nasal cannula. Intake yesterday was 1 liter and stool output was 850 mL, intake so far today is 500 mL. Weight on the bed scale 53.1 kg. GENERAL: The patient is seen sitting up in bed, awake, alert, bright, seems much more vibrant today as compared to yesterday. HEENT: Extraocular muscles are intact. Tongue is moist. NECK: Supple. Jugular veins are not elevated. A tunneled dialysis catheter is present on the right chest wall. HEART: Heart sounds are regular, S1 and S2, absolutely no edema in the extremities. LUNGS: Clear to auscultation bilaterally. No crackles or rales. She is comfortable on room air. ABDOMEN: Soft and nontender. Ostomy is present in the right lower quadrant with some stool in the bag. SKIN: Normal temperature and turgor. EXTREMITIES: Negative for clubbing, cyanosis or edema. NEUROLOGIC: Oriented x3, interactive, at baseline mentation. LABORATORY DATA: Sodium 140, potassium 4.4, bicarbonate 30, calcium 9.0, hemoglobin 9.1. INPATIENT MEDICATIONS: She was resumed on coumadin 5 mg daily and Creon with meals and Lipitor 10 mg p.o. daily and I cut the rate of IV fluids down overnight to normal saline at 30 mL/hr. PROBLEMS: 1. Status post orthostatic hypotension. The patient has received IV fluids overnight. I decreased the normal saline down to 30 mL/hr. Her blood pressure has improved nicely. Her ostomy output has slowed down and is now more likely the usual output. She is tolerating oral intake. Her blood pressures have improved back to baseline. She has not had any recurring orthostatic symptoms, she wants to go home. I advised her to keep up with electrolyte and fluid intake at home. Her GI PCR is still pending. 2. Endstage renal disease on hemodialysis on Friday, Friday and Friday schedule. Patient will be dialyzed on Friday in the outpatient setting as per her chronic prescription, she does not have fluid removal with dialysis typically and is dialyzed for clearance. 3. Anemia related chronic renal failure, hemoglobin is suboptimal at 9.1 and she will continue with Aranesp in the outpatient setting. MTDD
--- NOTE | 2020-08-30 11:22 | CR ---
DATE OF CONSULTATION: 08/28/2020 REQUESTING PHYSICIAN: Dr. Naila Baca CONSULTING PHYSICIAN: Sandra Mckenzie DO REASON FOR CONSULTATION: Management of end-stage renal disease on hemodialysis presently admitted with hypotension. HISTORY OF PRESENT ILLNESS: Yoana Escobedo is well known to me. She is a 74-year-old female with a past medical history of end-stage renal disease on hemodialysis on a Friday/Friday/Friday schedule, Crohn's disease, status post colectomy and ostomy placement; hypothyroidism; multiple myeloma, status post stem cell transplant with recurrence and relapse requiring chemotherapy; secondary hyperparathyroidism of renal origin, recurrent anemia related to hematologic disorder and chronic renal failure and other comorbid conditions mentioned below. Patient was brought by EMS to [facility] emergency room today because of hypotension which persisted during her hemodialysis treatment on Friday morning despite receiving 500 mL of normal saline with the dialysis treatment and having no fluid removed with dialysis. Despite receiving IV fluids during her treatment, the patient had low blood pressures throughout her treatment and at the end of her treatment when she attempted to stand, she had a syncopal episode and was subsequently sent to the emergency room. Patient notes that over the weekend she has had significant increase in her ostomy output and has had to change the bag more often than usual. She reports she took Imodium but the ostomy output did not decrease and she could not keep up with oral intake. In the emergency room, she was found to be orthostatic and I was contacted for management of fluid administration in this end-stage kidney failure patient. She was seen and examined in the emergency room and she complains of lightheadedness and dizziness, and dyspnea. She is ordered for further IV fluids. PAST MEDICAL HISTORY: * End-stage renal disease on hemodialysis on Friday/Friday/Friday schedule. * Multiple myeloma diagnosed in 2008, status post stem cell transplant with recurrence and relapse requiring chemotherapy and radiation. * Basal cell carcinoma. * Melanoma. * Peripheral neuropathy. * Secondary hyperparathyroidism. * Anemia related to chronic renal failure along with hematologic disorder. * Post-herpetic neuralgia. * Crohn's disease, status post colostomy and ileostomy. * Hypothyroidism. * History of transient ischemic attacks. * History of arteriovenous (AV) fistula clotting. PAST SURGICAL HISTORY: * Colectomy with ostomy placement. * Permacath. * Vertebroplasty of the lumbar spine. * AV fistula clotting requiring ligation and removal. * Appendectomy. * Right arm melanoma removal. * Basal cell carcinoma removal. * Stem cell transplant. FAMILY HISTORY: Lives at home. Mother with coronary artery disease, diabetes, hypertension. Sister with diabetes. Brother with diabetes. SOCIAL HISTORY: She is an ex-smoker. Denies alcohol or drug use. ALLERGIES: VANCOMYCIN. HOME MEDICATIONS: - Acyclovir 200 mg p.o. twice a day - Lipitor 10 mg p.o. daily - Vitamin D3, 5000 units p.o. daily - Dexamethasone 12 mg p.o. as directed before chemotherapy - Levothyroxine 75 mcg p.o. daily - Creon 36,000 unit capsule two caps p.o. with meal - Renvela 800 mg p.o. with meal - Coumadin 5 mg p.o. daily - Tramadol p.r.n. REVIEW OF SYSTEMS: CONSTITUTIONAL: Denies fevers, chills; reports fatigue. EARS, NOSE AND THROAT: Denies dental issues, rhinorrhea or odynophagia. CARDIAC: Denies leg swell; denies palpitations. RESPIRATORY: Reports stable dyspnea with exertion; denies cough. GASTROINTESTINAL: Reports high output ostomy; denies vomiting. GENITOURINARY: Denies dysuria or hematuria. ENDOCRINE: Denies diabetes; reports hypothyroidism. MUSCULOSKELETAL: Denies leg swelling or acute myalgias or arthralgias. NEUROLOGIC: Reports dizziness, lightheadedness and recent syncopal episode. PSYCHIATRIC: Denies depression or anxiety. SKIN: Denies any new rashes or ulcers. HEMATOLOGIC: Reports multiple myeloma, chemotherapy and chronic anemia. Remainder of review of systems is negative or as mentioned in history of present illness (HPI). PHYSICAL EXAMINATION: VITAL SIGNS: Temperature 97.6, pulse 81, respiratory rate 20, blood pressure 112/54, saturating 95-100% on room air. GENERAL: The patient is seen in the emergency room; looks fatigued and ill appearing. HEENT: Extraocular muscle are intact. The mucosa is dry. NECK: Supple. Jugular veins are not elevated. HEART: Sounds are regular; S1 and S2. There is absolutely no edema in the extremities. LUNGS: Clear to auscultation bilaterally. She seems comfortable on room air. There is no accessory muscle use or tachypnea. ABDOMEN: Soft and there is a right lower quadrant ostomy bag that is full with liquid stool. DIALYSIS ACCESS: There is a catheter in the right chest. MUSCULOSKELETAL: There is no edema, clubbing or cyanosis. SKIN: No rashes or ulcers, or erythema. NEUROLOGIC: Oriented x3, interactive and conversational. PSYCHIATRIC: Appropriate mood and affect. LABORATORY DATA: White count 4.3, hemoglobin 8.8, platelets 168. Magnesium 1.8. TSH 2.1. IMAGING DATA: Chest x-ray, August 28: No pleural effusion or infiltrate. INPATIENT MEDICATIONS: I asked the emergency room to give 500 mL normal saline bolus and to continue the patient on normal saline at 75 mL/hr. She is also on: - Acyclovir 200 mg p.o. twice a day - Levothyroxine 75 mcg p.o. daily - Renvela 800 mg p.o. with meal - Tramadol p.r.n. PROBLEMS: 1. Syncope and orthostatic hypotension. It is due to high output ostomy. Patient reports increased ostomy output over the weekend. She had no fluid removal with dialysis today. Rather, we gave her 500 mL of normal saline with dialysis but her hypotension did not improve and she syncopized at the end of the treatment. She received another 500 mL of normal saline at the ER and I requested that she be started on normal saline at 75 mL/hr and we will monitor her ostomy output and keep up with the IV fluids to replace fluid loss by the ostomy. Her blood pressures are improving with the IV fluids. 2. High-output ostomy, suspect gastroenteritis. GI panel is sent and pending and she is receiving IV fluids, and we will keep up with her losses. 3. End-stage renal disease on dialysis on Friday/Friday/Friday schedule. Patient will be dialyzed on Friday as per her maintenance schedule. 4. Anemia related to chronic renal failure. We will continue the patient on Aranesp for goal hemoglobin 10-11. Thank you for involving me in the care of Ms. Escobedo. I will be happy to follow her along with you. JUANA
== END 2020-08-29 15:27 | disposition home or self-care (01) | DRG 393 ==
LOC: M ED 09:52 → M ED INP 12:20 → ENRESERV 13:01 → M PCU 16:11
PROVIDERS: ADMIT Internal Medicine; ATTEND Internal Medicine
DX: K94.19 Other complications of enterostomy (principal); N18.6 End stage renal disease; K50.90 Crohn's disease, unspecified, without complications; C90.02 Multiple myeloma in relapse; Z94.84 Stem cells transplant status; N25.81 Secondary hyperparathyroidism of renal origin; B02.29 Other postherpetic nervous system involvement; K52.9 Noninfective gastroenteritis and colitis, unspecified; I95.1 Orthostatic hypotension; D63.1 Anemia in chronic kidney disease; E03.9 Hypothyroidism, unspecified; Z99.2 Dependence on renal dialysis; Z90.49 Acquired absence of other specified parts of digestive tract; Z85.828 Personal history of other malignant neoplasm of skin; Z85.820 Personal history of malignant melanoma of skin; G62.9 Polyneuropathy, unspecified; Z86.73 Personal history of transient ischemic attack (TIA), and cerebral infarction without residual deficits; Z87.891 Personal history of nicotine dependence; Z79.01 Long term (current) use of anticoagulants; Z79.899 Other long term (current) drug therapy; Z88.1 Allergy status to other antibiotic agents

== ENCOUNTER → 2020-09-06 | Outpatient (CLI) | payer MEDICARE, OTHER ==
[~2020-09-06] MED LIST changes: +LIDO1PAD TOP
[2020-09-06 14:12] LABS: INR 1.38; PROTHROMBIN TIME 17.3 SECONDS (12.5-14.3)
== END ==
LOC: M PLALAB 09:25
PROVIDERS: ATTEND Family Medicine
DX: Z79.01 Long term (current) use of anticoagulants (principal)

== ENCOUNTER → 2020-09-13 | Outpatient (CLI) | payer MEDICARE, OTHER ==
[2020-09-13 11:15] LABS: INR 1.91; PROTHROMBIN TIME 22.3 SECONDS (12.5-14.3)
== END ==
LOC: M PLALAB 09:13
PROVIDERS: ATTEND Family Medicine
DX: Z79.01 Long term (current) use of anticoagulants (principal)

== ENCOUNTER → 2020-09-19 | Outpatient (REF) | payer MEDICARE, OTHER | LOC: M LAB REF 16:50 | PROVIDERS: ATTEND Internal Medicine Nephrology | DX: N39.0 Urinary tract infection, site not specified (principal) ==

== ENCOUNTER 2020-10-16 08:59 | Inpatient (IN) | payer MEDICARE, OTHER ==
[~2020-10-16] VITALS: Ht 162.6 cm; Wt 47.9 kg
[2020-10-16] VITALS (10 sets, daily range): BP systolic 99–156; BP diastolic 28–88
--- NOTE | 2020-10-16 09:25 | REP ---
INDICATION: TIA/CVA. COMPARISON: Comparison brain MRI study June 21, 2020.. TECHNIQUE: Helical scanning is acquired. 5 mm axial images were reformatted. Coronal MPR images were generated. FINDINGS: Bone window settings demonstrate an intact bony calvarium. There is no evidence of skull fracture or incidental bony calvarial lesion. The visualized paranasal sinuses appear clear. No intraorbital abnormality is seen. On soft tissue window setting images; the lateral, third, and fourth ventricles are normal in size and position. Ugalde-white differentiation pattern is normal above and below the tentorium. There are is no evidence of intracranial hemorrhage. No mass, edema, infarction, or midline shift is seen. No extra-axial fluid collection is appreciated. Patient is edentulous. There is mild vascular calcification in the distal internal carotid arteries. Some punctate calcification is noted in the basal ganglia. This is normal variant. There are mild small vessel changes. IMPRESSION: Mild small vessel changes and some vascular calcification. No acute intracranial abnormality.. <Electronically signed by Venancio Daniel > 10/16/20 [id number]
[2020-10-16] MEDS ORDERED: ISOVUE-370 76% 100ML VIAL As Ordered ONE (09:49)
--- NOTE | 2020-10-16 09:53 | REP ---
INDICATION: CVA. COMPARISON: Comparison chest x-ray August 28, 2020. TECHNIQUE: Portable upright AP chest radiograph. FINDINGS: The lungs are well inflated and free of infiltrate. Pleural angles are sharp. Heart size is normal. Pulmonary vasculature is not increased. Monitoring electrodes are seen. There is a tunnel catheter on the right with its tip in the expected location of the superior vena cava. There is a vascular stent projecting in the left axillary soft tissues and there are surgical clips in the right axillary soft tissues. The patient is status post lower thoracic spine level vertebroplasty. IMPRESSION: No active disease. <Electronically signed by Venancio Daniel > 10/16/20 [id number]
[2020-10-16 10:03] LABS: BASO % 0.2 % (0.0-1.0); EOS % 0.8 % (0.0-3.0); HEMATOCRIT 31.8 % (36.0-47.0); HEMOGLOBIN 10.5 g/dl (12.0-15.5); LYMPH # 1.9 10^3/uL (1.5-5.0); LYMPH % 35.9 % (24.0-44.0); MEAN CORPUSCULAR HEMOGLOBIN 33.7 pg (27.0-33.0); MEAN CORPUSCULAR VOLUME 101.9 fl (80.0-96.0); MONO # 0.6 10^3/uL (0.0-0.8); MONO % 10.9 % (0.0-5.0); NEUTROPHILS # 2.8 10^3/uL (1.5-8.5); PLATELET COUNT, AUTOMATED 177 10^3/uL (150-450); RED BLOOD COUNT 3.12 10^6/uL (4.00-5.40); WHITE BLOOD COUNT 5.3 10^3/uL (4.0-10.0)
[2020-10-16 10:14] LABS: INR 1.53; PROTHROMBIN TIME 18.7 SECONDS (12.5-14.3)
[2020-10-16 10:15] LABS: PARTIAL THROMBOPLASTIN TIME 67.1 SECONDS (24.2-38.5)
[2020-10-16 10:20] LABS: BLOOD UREA NITROGEN 13 MG/DL (7-18); CALCIUM LEVEL 8.9 MG/DL (8.8-10.2); CARBON DIOXIDE LEVEL 32 MEQ/L (21-32); CHLORIDE LEVEL 98 MEQ/L (98-107); CK-MB VALUE MASS < 1.0 NG/ML (<3.6); CPK CREATINE PHOSPHOKINASE 60 U/L (26-192); CREATININE FOR GFR 2.89 MG/DL (0.55-1.30); GLUCOSE, FASTING 82 MG/DL (70-100); MB/CK RELATIVE INDEX 1.67 (< OR =4); POTASSIUM SERUM 2.9 MEQ/L (3.5-5.1); SODIUM LEVEL 140 MEQ/L (136-145); TROPONIN I < 0.02 NG/ML (< 0.10)
--- NOTE | 2020-10-16 10:24 | REP ---
INDICATION: CVA. COMPARISON: None. TECHNIQUE: CT contrast dose: 100 ml of intravenous Isovue 370. CT technique: Helical scanning is acquired. 2 mm axial images are reformatted. Maximal intensity projection and multiplanar re-formation images are generated along with 3-D surface rendered color imaging which is viewed rotationally. FINDINGS: The distal vertebral on the right is small compared to the left but both vertebral is are patent. Basilar artery is widely patent. Posterior cerebral and superior cerebellar vessels are patent. The left posterior cerebral takes a persistent origin from the anterior circulation which is a normal variant. Distal internal carotid arteries are intact. Anterior and middle cerebral arteries have a normal appearance. No evidence of alonzo aneurysm, vessel cut off, or arteriovenous malformation. Internal cerebral vein and dural sinuses are patent. IMPRESSION: Unremarkable CT angiography of the brain. <Electronically signed by Venancio Daniel > 10/16/20 [id number]
--- NOTE | 2020-10-16 10:26 | REP ---
INDICATION: CVA COMPARISON: None. TECHNIQUE: Contrast enhancement dose is 100 mL of intravenous Isovue 370. Helical scanning is acquired. 2 mm axial images are re-formatted. Coronal and sagittal MPR images are generated. Coronal and sagittal MIP and oblique MPR images are generated. 3D surface rendered images are generated and viewed rotationally. FINDINGS: There is mild vascular calcification in the aortic arch. No aneurysm or dissection is visible. Great vessel origins show calcification but no stenosis or occlusion. There is vascular calcification at the origin of a small right vertebral artery. Vertebrals are patent in the cervical segments left dominant. There is no significant finding in the common carotid arteries on either side. There mild vascular calcification of the carotid bifurcations bilaterally. No stenosis is seen in either proximal internal carotid. Cervical segments of the internal carotid arteries are unremarkable. IMPRESSION: Mild carotid bifurcation plaquing. No high-grade stenosis seen on either side. Left dominant vertebral artery. No vertebral stenosis or occlusion. <Electronically signed by Venancio Daniel > 10/16/20 [id number]
[2020-10-16] MEDS ORDERED: VITA200012 PO (12:00)
[2020-10-16] MEDS ORDERED: CREO3600 PO (12:00)
[2020-10-16] MEDS ORDERED: SODI15SS PO (12:00)
[2020-10-16] MEDS ORDERED: FISH1000 PO (12:00)
[2020-10-16 12:20] LABS: RSV AMPLIFICATION NEGATIVE (NEGATIVE)
[2020-10-16] MEDS: CREON-24 CAPSULE PO SCH ×2 (12:30→21:56)
[2020-10-16] MEDS: (RENVELA) SEVELAMER **CARBONate** 800 MG TAB PO SCH ×3 (12:30→18:27)
[2020-10-16] MEDS ORDERED: SOD POLYSTYRENE SULFONATE SUSP 15 GM/60 ML UD PO PRN (13:00)
[2020-10-16] MEDS ORDERED: ACETAMINOPHEN TAB 650MG DOSE (2X325MG) PO PRN (13:00)
[2020-10-16] MEDS ORDERED: traMADol 50 MG TAB PO PRN (13:00)
[2020-10-16] MEDS ORDERED: LORazepam 2 MG/ML VIAL IV STA (13:53)
--- NOTE | 2020-10-16 15:30 | REPVR ---
PROCEDURE INFORMATION: Exam: MR Head Without Contrast Exam date and time: 10/16/2020 3:03 PM Age: 75 years old Clinical indication: Other: R/O CVA with aphasia and R sided deficits TECHNIQUE: Imaging protocol: MR of the head without contrast. COMPARISON: 1. MRI-Brain without Contrast 06/21/2020 6:[address] ANGIO HEAD 10/16/2020 9:48:00 AM 3. ME - CT Head without contrast 10/16/2020 9:00:32 AM FINDINGS: Brain: There are chronic subdural hematomas around both cerebral hemispheres, most pronounced along the convexities. These measure approximately 6 mm on the right and 5 mm on the left. These are new since the MRI on 06/21/2020. No mass effect or midline shift is present. There is no restricted diffusion to suggest acute infarction. Scattered increased T2 and FLAIR signal within the periventricular and subcortical white matter is present. This is nonspecific but likely related to chronic microangiopathic ischemic change. Cerebral ventricles: No hydrocephalus. Bones/joints: Unremarkable. Paranasal sinuses: There is mild mucosal thickening in the maxillary and ethmoid sinuses. Mastoid air cells: Fluid is present in the bilateral mastoid air cells. Orbits: Unremarkable. Soft tissues: Unremarkable. IMPRESSION: Small chronic subdural hematomas around both cerebral convexities. Electronically signed by: Sly Garcia On 10/16/2020 15:30:04 PM
--- NOTE | 2020-10-16 15:33 | REPVR ---
PROCEDURE INFORMATION: Exam: MR Angiogram Head Without Contrast, Arteries Exam date and time: 10/16/2020 3:03 PM Age: 75 years old Clinical indication: Speech disturbance; Aphasia; Additional info: R/O CVA with aphasia and R sided deficits TECHNIQUE: Imaging protocol: MR angiogram head without contrast. Exam focused on the arteries. COMPARISON: 1. MRA BRAIN W/O CONTRAST 03/26/2019 1:[address] ANGIO HEAD 10/16/2020 9:48:00 AM FINDINGS: Limitations: The study is mildly limited due to patient motion artifact. ANTERIOR CIRCULATION: Right internal carotid artery: Intracranial segment is patent with no significant stenosis. No aneurysm. Right middle cerebral artery: No occlusion or significant stenosis. No aneurysm. Right anterior cerebral artery: No occlusion or significant stenosis. No aneurysm. Left internal carotid artery: Intracranial segment is patent with no significant stenosis. No aneurysm. Left middle cerebral artery: No occlusion or significant stenosis. No aneurysm. Left anterior cerebral artery: No occlusion or significant stenosis. No aneurysm. 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 Left vertebral artery: No occlusion or significant stenosis. No aneurysm. Basilar artery: No occlusion or significant stenosis. No aneurysm. Right posterior cerebral artery: No occlusion or significant stenosis. No aneurysm. Left posterior cerebral artery: There is persistent origin of the left posterior cerebral artery. IMPRESSION: No acute abnormality. Electronically signed by: Sly Garcia On 10/16/2020 15:33:07 PM
[2020-10-16] MEDS ORDERED: WARFARIN SOD 5MG TAB PO SCH (17:00)
--- NOTE | 2020-10-16 17:20 | HPEPDOC ---
General Date of Admission Oct 16, 2020 at 12:52 Date of Service: Oct 16, 2020 Attending Physician: JIMMY VARELA MD Chief Complaint The patient is a 75-year-old female admitted with a reason for visit of Cerebral Vascular Accident. Source: Patient, Family, RN/MD Exam Limitations: Garbled speech History of Present Illness CHIEF COMPLAINT: Slumping to the right and acute aphasia at HD HISTORY OF PRESENT ILLNESS: 75-year-old W with medical history of end-stage renal disease on hemodialysis, chronic anemia, Crohn's disease status post colectomy and ostomy placement, hypothyroidism, multiple myeloma status post an stem cell transplant with recurrence and relapse metastatic disease on palliative chemo, secondary hyperparathyroidism and history of UE DVT on warfarin who presented to [facility] ER after having an brief unresponsive episode and was noted to have slumping to the right with R sided weakness and acute aphasia witnessed in dialysis, almost at the end of her session. At that time her BP was checked and was wnl with SBP 116. EMS was called and on arrival SBP was 125, she was awake but still slumping to the right and now having garbled speech. She denies fevers, chills, nausea, vomiting. She has baseline shortness of breath but denies chest pain, recent illnesses, diet changes, abdominal pain. The emergency room her vital signs showed blood pressure 132/60, other VS stable. CXR wnl and noncon head CT was initially read as without acute pathology noted. She was admitted to medicine for CVA investigations. WBC was 5.3, Hgb 10.5 c/w recent baseline, platelets 177, Na 140, K 2.9 (repleted), BUN 13, Cr 2.89 with INR of 1.53, negative troponin, stable non ischemic EKG, negative covid-19 testing and CXR was wnl without any noted acute pathology. REVIEW OF SYSTEMS: 10 point ROS was negative except for what is never mentioned above. +acute garbled speech, +RUE weakness, +RLE weakness. PAST MEDICAL HISTORY: Basal cell carcinoma Right arm melanoma Melanoma IgG kappa multiple myeloma diagnosed 2008, status post stem cell transplant, with recurrence and relapse requiring chemotherapy and radiation. Peripheral neuropathy End-stage renal disease, on maintenance dialysis . Secondary hyperparathyroidism. Anemia of chronic disease due to renal failure. Postherpetic neuralgia. Crohn disease, status post colectomy and ileostomy. Hypothyroidism. History of tansient ischemic attack. PAST SURGICAL HISTORY: Colectomy with ostomy placement PermaCath Vertebroplasty lumbar spine. AV fistula, clotting and bleeding requiring ligation, removal. Appendectomy Right arm melanoma removal. Basal cell carcinoma removal. Melanoma resection from her extremity Stem cell transplant FAMILY HISTORY: Patient lives at home with her daughter, in a separate one-floor apartment attached to the house, quit smoking in the 80s. Denies alcohol or any recreational drug use. PCP Dr. Herrera, nephrology-Dr. Mckenzie, Gi-Dr. Licona, Heme/onc- Dr. Woodward. FAMILY HISTORY: Mother- DM, HTN, CAD. at 87 y/o Father- Unknown to patient Sister- DM. alive Brother- CVA, DM. alive ALLERGIES: Please see below. HOME MEDICATIONS: Please see below. PHYSICAL EXAMINATION: VS: Please see below CONSTITUTIONAL: No acute distress, AAO x 3, working very hard to explain herself but completely oriented and speech is improving. EYES: PERRLA, EOM intact, anicteric HENT, MOUTH: Normocephalic, atraumatic, moist mucous membranes NECK: SUPPLE, no JVD, no lymphadenopathy, no carotid bruit CV: Regular rate and rhythm, S1S2 normal, no murmurs/rubs/gallops CHEST: right chest catheter RESPIRATORY: Clear to auscultation bilaterally, no rales/rhonchi/wheezes, breathing comfortably on room air GI: Right lower quadrant ostomy bag, secure in place. BS positive in 4 quadrants, soft, nontender, nondistended, no rebound or guarding, no organomegaly INTEGUMENTARY: Intact, no rashes, no lesions, no erythema NEUROLOGIC: RUE with 1/5 strength, RLE with 2/5 strength, LUE with 4/5 strength, LLE with 4/5 strength, no apparent facial droop, CN3-23 intact, speech is garbled at this time, struggles to make words but sometimes is successful, she does gesture to complete her thoughts, successfully. AOx3 PSYCHIATRIC: AOx3 LABORATORY DATA: reviewed above Please see below IMAGING: CXR: no acute cardiopulmonary abnormalities Noncontrast head CT: Bone window settings demonstrate an intact bony calvarium. There is no evidence of skull fracture or incidental bony calvarial lesion. The visualized paranasal sinuses appear clear. No intraorbital abnormality is seen. On soft tissue window setting images; the lateral, third, and fourth ventricles are normal in size and posi tion. Ugalde-white differentiation pattern is normal above and below the tentorium. There are is no evidence of intracranial hemorrhage. No mass, edema, infarction, or midline shift is seen. No extra-axial fluid collection is appreciated. Patient is edentulous. There is mild vascular calcification in the distal internal carotid arteries. Some punctate calcification is noted in the basal ganglia. This is normal variant. There are mild small vessel changes. IMPRESSION: Mild small vessel changes and some vascular calcification. No acute intracranial abnormality.. CTA neck: FINDINGS: There is mild vascular calcification in the aortic arch. No aneurysm or dissection is visible. Great vessel origins show calcification but no stenosis or occlusion. There is vascular calcification at the origin of a small right vertebral artery. Vertebrals are patent in the cervical segments left dominant. There is no significant finding in the common carotid arteries on either side. There mild vascular calcification of the carotid bifurcations bilaterally. No stenosis is seen in either proximal internal carotid. Cervical segments of the internal carotid arteries are unremarkable. IMPRESSION: Mild carotid bifurcation plaquing. No high-grade stenosis seen on either side. Left dominant vertebral artery. No vertebral stenosis or occlusion. CTA brain: The distal vertebral on the right is small compared to the left but both vertebral is are patent. Basilar artery is widely patent. Posterior cerebral and superior cerebellar vessels are patent. The left posterior cerebral takes a persistent origin from the anterior circulation which is a normal variant. Distal internal carotid arteries are intact. Anterior and middle cerebral arteries have a normal appearance. No evidence of alonzo aneurysm, vessel cut off, or arteriovenous malformation. Internal cerebral vein and dural sinuses are patent. IMPRESSION: Unremarkable CT angiography of the brain. MRA brain: ANTERIOR CIRCULATION: Right internal carotid artery: Intracranial segment is patent with no significant stenosis. No aneurysm. Right middle cerebral artery: No occlusion or significant stenosis. No aneurysm. Right anterior cerebral artery: No occlusion or significant stenosis. No aneurysm. Left internal carotid artery: Intracranial segment is patent with no significant stenosis. No aneurysm. Left middle cerebral artery: No occlusion or significant stenosis. No aneurysm. Left anterior cerebral artery: No occlusion or significant stenosis. No aneurysm. 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 Left vertebral artery: No occlusion or significant stenosis. No aneurysm. Basilar artery: No occlusion or significant stenosis. No aneurysm. Right posterior cerebral artery: No occlusion or significant stenosis. No aneurysm. Left posterior cerebral artery: There is persistent origin of the left posterior cerebral artery. IMPRESSION: No acute abnormality. 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 These measure approximately 6 mm on the right and 5 mm on the left. These are new since the MRI on 06/21/2020. No mass effect or midline shift is present. There is no restricted diffusion to suggest acute infarction. Scattered increased T2 and FLAIR signal within the periventricular and subcortical white matter is present. This is nonspecific but likely related to chronic microangiopathic ischemic change. Cerebral ventricles: No hydrocephalus. Bones/joints: Unremarkable. Paranasal sinuses: There is mild mucosal thickening in the maxillary and ethmoid sinuses. Mastoid air cells: Fluid is present in the bilateral mastoid air cells. Orbits: Unremarkable. Soft tissues: Unremarkable. IMPRESSION: Small chronic subdural hematomas around both cerebral convexities. ASSESSMENT: 75-year-old W with medical history of end-stage renal disease on hemodialysis, chronic anemia, Crohn's disease status post colectomy and ostomy placement, h ypothyroidism, multiple myeloma status post an stem cell transplant with persistent metastatic disease on palliative chemo, secondary hyperparathyroidism and history of UE DVT on warfarin who presented to [facility] ER after having an brief unresponsive episode and was noted to have slumping to the right with R sided weakness and acute aphasia witnessed in dialysis, now admitted for CVA workup and now found to have chronic subdural hematomas with some mild mass effect without midline shift, and no evidence of acute infarct. Given the chronic subdural bleeding with present hematomas on a patient on anticoagulation for her VTEs, neurology recommended transfer to [facility] for further evaluation. PLAN: Likely TIA: with R sided deficits and slowly recovering aphasia -head imaging showing no acute infarct, with chronic subdural hematomas -will plan to transfer to [facility] at this time ESRD on HD (TThSat) -Nephrology was consulted at admission IgG kappa multiple myeloma -Diagnosed 2008, status post stem cell transplant, with recurrence and relapse -Currently gets palliative chemotherapy monthly -Follows with [facility], Dr. Woodward Crohn's disease s/p colectomy and ostomy placement -Follows with GI in the outpatient setting Hypothyroidism -Continue levothyroxine Anemia of chronic disease likely 2/2 to ESRD -At recent baseline 9-10. DVT Px -Holding warfarin in the setting of chronic subdural hematomas DISPOSITION: Planning to transfer her to [facility]. Home Medications Scheduled Atorvastatin Calcium (Atorvastatin Calcium) 10 Mg Tablet, 10 MG PO DAILY, (Reported) Cholecalciferol (Vitamin D3) (D3-2000) 50 Mcg Capsule, 2,000 UNITS PO DAILY, (Reported) Cyclosporine (Restasis) 0.05% Droperette, 1 DROP OU BID, (Reported) Dexamethasone (Dexamethasone) 4 Mg Tablet, 4 MG PO ASDIRECTED, (Reported) TAKE BEFORE CHEMO ON THE Friday OF EACH MONTH Levothyroxine Sodium (Levothyroxine Sodium) 75 Mcg Tablet, 75 MCG PO QAM, (Reported) Lidocaine (Lidocaine) 5% Adh..patch, 1 PATCH TOP QHS, (Reported) APPLIES TO RIGHT SHOULDER Lipase/Protease/Amylase (Pratibha Pandey 36,000 Units Capsule) 1 Each Capsule.dr, 2 CAP PO WM, (Reported) Lipase/Protease/Amylase (Pratibha Pandey 36,000 Units Capsule) 1 Each Capsule.dr, 1 CAP PO ASDIRECTED, (Reported) TAKES WITH SNACKS [place]-3 Fatty Acids/Fish Oil (Fish Oil 1,000 mg Capsule) 1 Each Capsule, 1,000 MG PO DAILY, (Reported) Sevelamer Carbonate (Renvela) 800 Mg Tablet, 1,600 MG PO WM, (Reported) Warfarin Sodium (Warfarin Sodium) 5 Mg Tablet, 5 MG PO QPM, (Reported) TAKES AT 1600 Scheduled PRN Sodium Polystyrene Sulfonate (Sps 15 gm/60 ml Suspension) 15 Gm/60 Ml Oral.susp, 15 GM PO ASDIRECTED PRN for DIALYSIS, (Reported) Tramadol HCl (Tramadol HCl) 50 Mg Tablet, 50 MG PO Q12H PRN for PAIN, (Reported) Allergies Coded Allergies: vancomycin (Verified Allergy, Intermediate, RASH/ITCHING, 01/24/20) A-FIB/CHADSVASC A-FIB History Current/History of A-Fib/PAF?: No Current PO Anticoag Therapy: No Age/Risk Factor Scoring CHADSVASC: CHADSVASC Response (Comments) Value Age Risk Factor Age 65-74 years old 1 Gender Risk Factor Female 1 Hx of CHF No 0 Hx of HTN Yes 1 Hx of Stroke/TIA/or VTE Yes 2 Hx of Diabetes No 0 Hx of Vascular Disease No 0 Total 5 Treatment Reason Anticoagulant not given: Current bleeding JIMMY VARELA MD Oct 16, 2020 17:20
--- NOTE | 2020-10-16 18:17 | REP ---
INDICATION: r/o carotid etiiology with aphasia and R sided deficits COMPARISON: Comparison is made with today's CT angiography of the neck.. TECHNIQUE: Real-time ultrasound evaluation and duplex Doppler interrogation of the extracranial carotid vasculature is performed. FINDINGS: Antegrade flow is observed in both vertebral arteries. Right carotid: The right common carotid artery shows diffuse intimal thickening but is otherwise unremarkable. There ismild mixed plaquing in the right carotid bulb and proximal ICA on two-dimensional scanning. Color flow and spectral Doppler interrogation are unremarkable on the right. Velocity chart right carotid: Right CCA PSV: 113 cm/S Right ICA PSV: 101 cm/S Right ICA EDV: 27 cm/S Right ECA PSV: 87 cm/S Right ICA/CCA ratio: 0.9 Left carotid: The left common carotid artery shows diffuse intimal thickening but is otherwise unremarkable. There is mild mixed plaquing in the left carotid bulb and proximal ICA on two-dimensional scanning. Color flow and spectral Doppler interrogation are unremarkable on the left. Velocity chart left carotid: Left CCA PSV: 130 cm/S Left ICA PSV: 110 cm/S Left ICA EDV: 27 cm/S Left ECA PSV: 87 cm/S Left ICA/CCA ratio: 0.8 IMPRESSION: Less than 50% category narrowing in the right internal carotid artery by Doppler velocity criteria. Less than 50% category narrowing in the left ICA by Doppler velocity criteria. <Electronically signed by Venancio Daniel > 10/16/20 [id number]
[2020-10-16] MEDS: ATORVASTATIN 10 MG TAB PO SCH (18:26)
[2020-10-16] MEDS: VITAMIN D 1,000 INTERNATIONAL UNITS TABLET PO SCH (18:26)
[2020-10-16] MEDS: LIDOCAINE 5% (LIDODERM) PATCH TOP SCH (21:43)
[2020-10-16] MEDS: ENOXAPARIN 40MG/0.4ML SYRINGE (J1650 PER 10MG) SC SCH (21:43)
[2020-10-16] MEDS: OMEGA-3 1000MG CAPSULE PO SCH (21:44)
[2020-10-16] MEDS: WARFARIN SOD 5MG TAB PO SCH (21:56)
[2020-10-17] VITALS (7 sets, daily range): BP systolic 106–126; BP diastolic 52–61
[2020-10-17] MEDS ORDERED: POTASSIUM CHLORIDE 10 MEQ SR TABLET PO ONE (02:00)
[2020-10-17 05:00] LABS: HEMATOCRIT 30.2 % (36.0-47.0); HEMOGLOBIN 9.6 g/dl (12.0-15.5); MEAN CORPUSCULAR HEMOGLOBIN 33.2 pg (27.0-33.0); MEAN CORPUSCULAR HGB CONC 31.8 g/dl (32.0-36.5); MEAN CORPUSCULAR VOLUME 104.5 fl (80.0-96.0); PLATELET COUNT, AUTOMATED 161 10^3/uL (150-450); RED BLOOD COUNT 2.89 10^6/uL (4.00-5.40); WHITE BLOOD COUNT 4.6 10^3/uL (4.0-10.0)
[2020-10-17 05:10] LABS: INR 1.63; PROTHROMBIN TIME 19.7 SECONDS (12.5-14.3)
--- NOTE | 2020-10-17 05:34 | ECGEPIP ---
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
[2020-10-17 05:41] LABS: CALCIUM LEVEL 8.9 MG/DL (8.8-10.2); CREATININE FOR GFR 5.18 MG/DL (0.55-1.30); GLOMERULAR FILTRATION RATE 8.7 (>39); POTASSIUM SERUM 4.2 MEQ/L (3.5-5.1)
[2020-10-17] MEDS ORDERED: LEVOTHYROXINE 75MCG TABLET (0.075MG) PO SCH (06:00)
[2020-10-17] MEDS ORDERED: **NOTE PATIENT COMMENT** MISC XX SCH (09:00)
[2020-10-17] MEDS: (RENVELA) SEVELAMER **CARBONate** 800 MG TAB PO SCH ×3 (09:02→17:50)
[2020-10-17] MEDS: ATORVASTATIN 10 MG TAB PO SCH (09:02)
[2020-10-17] MEDS: CREON-24 CAPSULE PO SCH ×3 (09:02→17:50)
[2020-10-17] MEDS: OMEGA-3 1000MG CAPSULE PO SCH (09:02)
[2020-10-17] MEDS: VITAMIN D 1,000 INTERNATIONAL UNITS TABLET PO SCH (09:02)
--- NOTE | 2020-10-17 14:19 | IPNPDOC ---
Text Note Date of Service The patient was seen on 10/17/20. NOTE Subjective: Continues to have right sided weakness but reports that speech has cleared up a lot, Has chornic right upper extremity weakness from shoulder problem. She reports that her right leg weakness is new. PHYSICAL EXAMINATION: VS: Please see below CONSTITUTIONAL: No acute distress, AAO x 3,dysarthria mild still present. EYES: PERRLA, EOM intact, anicteric HENT, MOUTH: Normocephalic, atraumatic, moist mucous membranes, anicteric eyes. NECK: SUPPLE, no JVD, no lymphadenopathy, no carotid bruit CV: Regular rate and rhythm, S1S2 normal, no murmurs/rubs/gallops CHEST: right chest HD catheter, Clear to auscultation bilaterally, no rales/rhonchi/wheezes, breathing comfortably on room air GI: Right lower quadrant ostomy bag, secure in place. BS positive in 4 mickie drants, soft, nontender, nondistended, no rebound or guarding, no organomegaly INTEGUMENTARY: Intact, no rashes, no lesions, no erythema NEUROLOGIC: RUE with 2/5 strength, RLE with 2/5 strength, LUE with 4/5 strength, LLE with 4/5 strength, no apparent facial droop, DTRs 2+, speech is dysarthric seems to be forcing to get out. PSYCHIATRIC: AOx3 LABs adn radiology: reviewed above Please see below IMAGING: CXR: no acute cardiopulmonary abnormalities Noncontrast head CT: Bone window settings demonstrate an intact bony calvarium. There is no evidence of skull fracture or incidental bony calvarial lesion. The visualized paranasal sinuses appear clear. No intraorbital abnormality is seen. On soft tissue window setting images; the lateral, third, and fourth ventricles are normal in size and position. Ugalde-white differentiation pattern is normal above and below the tentorium. There are is no evidence of intracranial hemorrhage. No mass, edema, infarction, or midline shift is seen. No extra-axial fluid collection is appreciated. Patient is edentulous. There is mild vascular calcification in the distal internal carotid arteries. Some punctate calcification is noted in the basal ganglia. This is normal variant. There are mild small vessel changes. IMPRESSION: Mild small vessel changes and some vascular calcification. No acute intracranial abnormality.. CTA neck: FINDINGS: There is mild vascular calcification in the aortic arch. No aneurysm or dissection is visible. Great vessel origins show calcification but no stenosis or occlusion. There is vascular calcification at the origin of a small right vertebral artery. Vertebrals are patent in the cervical segments left dominant. There is no significant finding in the common carotid arteries on either side. There mild vascular calcification of the carotid bifurcations bilaterally. No stenosis is seen in either proximal internal carotid. Cervical segments of the internal carotid arteries are unremarkable. IMPRESSION: Mild carotid bifurcation plaquing. No high-grade stenosis seen on either side. Left dominant vertebral artery. No vertebral stenosis or occlusion. CTA brain: The distal vertebral on the right is small compared to the left but both vertebral is are patent. Basilar artery is widely patent. Posterior cerebral and superior cerebellar vessels are patent. The left posterior cerebral takes a persistent origin from the anterior circulation which is a normal variant. Distal internal carotid arteries are intact. Anterior and middle cerebral arteries have a normal appearance. No evidence of alonzo aneurysm, vessel cut off, or arteriovenous malformation. Internal cerebral vein and dural sinuses are patent. IMPRESSION: Unremarkable CT angiography of the brain. MRA brain: IMPRESSION: No acute abnormality. 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 These measure approximately 6 mm on the right and 5 mm on the left. These are new since the MRI on 06/21/2020. No mass effect or midline shift is present. There is no restricted diffusion to suggest acute infarction. Scattered increased T2 and FLAIR signal within the periventricular and subcortical white matter is present. This is nonspecific but likely related to chronic microangiopathic ischemic change. Cerebral ventricles: No hydrocephalus. Bones/joints: Unremarkable. Paranasal sinuses: There is mild mucosal thickening in the maxillary and ethmoid sinuses. Mastoid air cells: Fluid is present in the bilateral mastoid air cells. Orbits: Unremarkable. Soft tissues: Unremarkable. IMPRESSION: Small chronic subdural hematomas around both cerebral convexities. ASSESSMENT and Plan: 75-year-old W with medical history of end-stage renal disease on hemodialysis, chronic anemia, Crohn's disease status post colectomy and ostomy placement 40 years ago, hypothyroidism, multiple myeloma status post an stem cell transplant with persistent metastatic disease on palliative chemo, secondary hype rparathyroidism and history of UE DVT on warfarin who presented to [facility] ER after having an brief unresponsive episode and was noted to have slumping to the right with R sided weakness and acute aphasia witnessed in dialysis, now admitted for CVA workup and now found to have chronic subdural hematomas with some mild mass effect without midline shift, and no evidence of acute infarct. Given the chron ic subdural bleeding with present hematomas on a patient on anticoagulation for her VTEs, neurology recommended transfer to [facility] for further evaluation. Likely TIA with R sided leg weakness and slowly recovering aphasia head imaging showing no acute infarct, with chronic subdural hematomas MRI and MRA negative for acute stroke. right arm weakness is from shoulder disease Aphasia had an episode in 2019 MRI and MRA then also negative for acute stroke. Small bilateral chronic subdural hematomas no midline shift. This was discussed with [facility] neurosurgery Unlikely this will bleed as chronic so Ok to give full anticoagulation and Repeat CT head in 24 hours. The subdurals are not causing her symptoms. will get CT head today. Chronic Right upper extremity weakness due to shoulder disease and cervical spinal disease MRI shoulder from June 2020. 1. Full-thickness, retracted tears of the supraspinatus and infraspinatus tendons, as described above. 2. Severe tendinopathy and partial-thickness bursal and articular surface tearing and delamination along the distal subscapularis tendon. 3. High-grade, partial-thickness tearing of the intra-articular biceps tendon, which is partially medially subluxed from the bicipital groove. 4. Large, complex glenohumeral joint effusion. 5. Nonspecific lesion in the distal clavicle, as described above, possibly related to the patient's myeloma. Cervical spinal stenosis Degenerative findings greatest at C5-C6 where there is moderate central canal stenosis. Right leg weakness no intracranial abnormality to explain this will get [place] spinal MRI. ESRD on HD (TThSat) Nephrology was consulted at admission IgG kappa multiple myeloma Diagnosed 2008, status post stem cell transplant, with recurrence and relapse Currently gets palliative chemotherapy monthly Follows with [facility], Dr. Woodward Crohn's disease s/p colectomy and ostomy placement Follows with GI in the outpatient setting Hypothyroidism Continue levothyroxine Upper extremity DVT will continue Coumadin with Lovenox. Anemia of chronic disease likely 2/2 to ESRD At recent baseline 9-10. Chronic low back pain Evidence for prior vertebroplasty at T12 - L2 with associated mild chronic compression deformities from lumber spinal Xray before. DVT Px on coumadin and lovenox VS,Fishbone, I+O VS, Fishbone, I+O Laboratory Tests 10/17/20 04:41 Vital Signs Date Time Temp Pulse Resp B/P (MAP) Pulse Ox O2 Delivery O2 Flow Rate FiO2 10/17/20 12:00 97.6 62 18 126/61 (82) 100 High Flow Cannula 1.0 I&O- Last 24 Hours up to 6 AM 10/17/20 06:00 Intake Total 600 ml Output Total 750 ml Balance -150 ml KUSAHL DENG MD Oct 17, 2020 14:19
[2020-10-17] MEDS: WARFARIN SOD 5MG TAB PO SCH (17:11)
[2020-10-17] MEDS ORDERED: LORazepam 2 MG/ML VIAL IV ONE (17:30)
--- NOTE | 2020-10-17 20:29 | REPVR ---
PROCEDURE INFORMATION: Exam: MR Lumbar Spine Without Contrast. Exam date and time: 10/17/2020 8:01 PM Age: 75 years old Clinical indication: Patient HX: RT leg weakness; Additional info: Right leg weakness TECHNIQUE: Imaging protocol: Multiplanar magnetic resonance images of the lumbar spine without intravenous contrast. COMPARISON: CR Spine. Lumbosacral, complete 12/21/2019 10:36 PM FINDINGS: Vertebrae: There is evidence of vertebroplasties at T12, L1 and L2 levels. There is mild cupping of vertebral body endplates at the L3, L4 and L5 levels with probable acute compression of the anterior margins of the superior endplates of L3 and L4 where edema is noted. Series 501, image 4. Spinal cord: The conus medullaris is normal appearance at the L1-L2 level. L1-L2: There appears to be moderate spinal canal stenosis at the disc space level. The neural foramen appear patent however the disc space is only partially imaged. L2-L3: There is narrowing of the lateral recesses however the disc space is only partially imaged therefore is difficult to determine if there is possible compromise of the exiting L3 nerve roots. The neural foramen are patent. L3-L4: Mildly bulging annulus. The neural foramen appear patent. The disc space is only partially imaged limiting assessment of the nerve roots. There may be compromise of the exiting right L4 nerve root in a narrowed lateral recess. L4-L5: No spinal canal stenosis. The neural foramen appear patent. The disc spaces only partially imaged. It is in L5-S1: No spinal canal stenosis. An asymmetrically bulging annulus appears to narrow the left neural foramen where it may affect the L5 nerve root. The disc space is only partially imaged. Soft tissues: There appears to be bilateral cystic degeneration of the kidneys. IMPRESSION: No definite evidence of neural compromise however the T2 weighted axial images do not include the entirety of the disc spaces limiting evaluation of possible neural compromise of the exiting nerve roots in the lateral recesses. Although the lateral recesses are included on the T1 weighted axial images they are degraded by patient motion. Electronically signed by: Romi Clarke On 10/17/2020 20:29:07 PM
[2020-10-17] MEDS: LIDOCAINE 5% (LIDODERM) PATCH TOP SCH (22:15)
[2020-10-17] MEDS: ENOXAPARIN 40MG/0.4ML SYRINGE (J1650 PER 10MG) SC SCH (22:16)
--- NOTE | 2020-10-17 23:07 | REPVR ---
PROCEDURE INFORMATION: Exam: CT Head Without Contrast Exam date and time: 10/17/2020 10:51 PM Age: 75 years old Clinical indication: Pain; Headache; Additional info: R/O bleeding on ac TECHNIQUE: Imaging protocol: Computed tomography of the head without contrast. Radiation optimization: All CT scans at this facility use at least one of these dose optimization techniques: automated exposure control; mA and/or kV adjustment per patient size (includes targeted exams where dose is matched to clinical indication); or iterative reconstruction. COMPARISON: CT Head without contrast 10/16/2020 9:00 AM FINDINGS: Brain: There is increased in size of the bilateral subdural hematomas overlying both cerebral hemispheres in comparison to yesterday's examination. The right subdural measures up to 4.6 mm and is hyperdense. The left subdural hematoma measures approximately 2.6 mm in width. It is also hyperdense. The tentorium is hyperdense which may be due to acute subdural hematoma. There is no parenchymal hematoma or acute cortical infarction. There is no midline shift. There also appears to be intravascular contrast. Cerebral ventricles: No ventriculomegaly. Bones/joints: Unremarkable. No acute fracture. Paranasal sinuses: The causey of the maxillary antra appear sclerotic and there are probable prior antral windows likely due to chronic paranasal sinusitis. There is mild mucoperiosteal thickening without air fluid levels. Mastoid air cells: The middle ear cavities and mastoid air cells are clear. Soft tissues: Unremarkable. IMPRESSION: The right subdural hematoma now appears acute and has increased in size measuring 4.6 mm. There is also a smaller acute left subdural hematoma measuring approximately 2.6 mm in width. There may be subdural hematoma overlying the tentorium however the radiodensity may also be due to the enhanced intravascular blood. Electronically signed by: Romi Clarke On 10/17/2020 23:07:04 PM
[2020-10-18] VITALS: BP 112/54
[2020-10-18] MEDS ORDERED: PROTAMINE SULF 50MG/5ML VIAL (J2720 PER 10MG) IV STA (00:51)
[2020-10-18] MEDS ORDERED: NS IV ONE (01:00)
[2020-10-18] MEDS ORDERED: PHYTONADIONE IV ONE (01:00)
[2020-10-18] MEDS ORDERED: PROTHROMBIN COMPLEX CONCEN IV ONE (01:00)
[2020-10-18] MEDS ORDERED: PHYTONADIONE 10MG/ML INJECTION (J3430) IV ONE (01:45)
[2020-10-18 02:08] VITALS: BP 136/65
--- NOTE | 2020-10-18 02:13 | DS.PDOC ---
Discharge Summary General Date of Admission Oct 16, 2020 at 12:52 Date of Discharge 10/18/2020 Attending Physician: MARKO DOE MD Specialist/Consultants Involve: MERISSA EMERSON MD Discharge Summary PROCEDURES PERFORMED DURING STAY: None ADMITTING DIAGNOSES: 1. 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 Peripheral neuropathy End-stage renal disease, on maintenance dialysis . Secondary hyperparathyroidism. Anemia of chronic disease due to renal failure. Postherpetic neuralgia. Crohn disease, status post colectomy and ileostomy. Hypothyroidism. History of tansient ischemic attack. COMPLICATIONS/CHIEF COMPLAINT: Cerebral Vascular Accident. HISTORY OF PRESENT ILLNESS: 75-year-old W with medical history of end-stage renal disease on hemodialysis, chronic anemia, Crohn's disease status post colectomy and ostomy placement, hypothyroidism, multiple myeloma status post an stem cell transplant with recurrence and relapse metastatic disease on palliative chemo, secondary hyperparathyroidism and history of UE DVT on warfarin who presented to [facility] ER after having an brief unresponsive episode and was noted to have slumping to the right with R sided weakness and acute aphasia witnessed in dialysis, almost at the end of her session. At that time her BP was checked and was wnl with SBP 116. EMS was called and on arrival SBP was 125, she was awake but still slumping to the right and now having garbled speech. She denies fevers, chills, nausea, vomiting. She has baseline shortness of breath but denies chest pain, recent illnesses, diet changes, abdominal pain. The emergency room her vital signs showed blood pressure 132/60, other VS stable. CXR wnl and noncon head CT was initially read as without acute pathology noted. She was admitted to medicine for CVA investigations. WBC was 5.3, Hgb 10.5 c/w recent baseline, platelets 177, Na 140, K 2.9 (repleted), BUN 13, Cr 2.89 with INR of 1.53, negative troponin, stable non ischemic EKG, negative covid-19 testing and CXR was wnl without any noted acute pathology. HOSPITAL COURSE: She was admitted to medicine where MRI brain revealed some chronic subdural hematomas around both cerebral hemispheres, most pronounced along the convexities. These measure approximately 6 mm on the right and 5 mm on the left. These are new since the MRI on 06/21/2020. No mass effect or midline shift is present. There is no restricted diffusion to suggest acute infarction. Scattered increased T2 and FLAIR signal within the periventricular and subcortical white matter is present. She was initially planned for transfer to [facility] Neurosurgery, given that she required anticoagulation for her VTE and is currently having neurological deficits that are presumed to be TIA given no acute infarct found on MRI at this time. Upon Dr. Perales's conversation on 10/16/[address] Feng of [facility] neurosurgery, Dr. Feng expressed a very low concern for acute bleeding. Given patient's chronic small hematomas with no evidence of an acute ischemic infarct. Dr. Feng advised ruling out a seizure with an EEG and restarting patient's anticoagulation with a follow-up head CT in the morning. Dr. Perales then spoke with [facility] neurologist, Dr. Emerson who decided to restart anticoagulation in the form of bridge with Lovenox as patient's INR was subtherapeutic as well as coterminously restart warfarin. On day 2 of hospitalization, (10/17/20, patient's primary hospitalist noted. She continued to have right-sided weakness but was experiencing a clearing of her speech significantly. She does have chronic right upper extremity weakness from shoulder/rotator cuff issue. She also reports right lower extremity weakness, which is new.. Angina. Her chronic subdural hematomas was performed on the evening of 10/17/20, which showed acute changes from the comparison study of 10/16/20. B12, study showed right subdural hematoma appearing to now be acute with increased size injuring at 4.6 mm. There was also an acute left subdural hematoma increase in size from comparison study with measurement of approximately 2.6 mm in width. There may also be a subdural hematoma overlying the tentorium, however radiodensity may also be due to enhance intervascular blood. The reading radiologist notified the overnight hospitalist service of this significant acute change in head CT studies and hospital service subsequently contacted on-call neurologist Dr. Emerson. Dr. Emerson advised calling [facility] neurosurgery service to arrange for immediate transfer in the setting of an expanding bilateral subdural hematoma. He also recommended that patient's Lovenox medication be discontinued. The [facility] neurosurgery service was subsequently contacted and we spoke with Dr. Feng at [facility]. Dr. Feng excepted the patient for transfer and recommended administering Kcentra at the lowest dose due to patient's INR being just above 1.4 (it was measured at 1.63 on the morning of 10/17) to reverse the effects of warfarin, and also to give protamine sulfate to reverse the low molecular weight heparin/Lovenox. These medications were subsequently ordered and administered. The patient as well as coterminously vitamin K Infusion. Patient will be transferred to at [facility] neurosurgery. DISCHARGE MEDICATIONS: Please see below. ALLERGIES: Please see below. PHYSICAL EXAMINATION ON DISCHARGE: VITAL SIGNS: Please see below. CONSTITUTIONAL: No acute distress, AAO x 3, working very hard to explain herself but completely oriented and speech is improving. EYES: PERRLA, EOM intact, anicteric HENT, MOUTH: Normocephalic, atraumatic, moist mucous membranes NECK: SUPPLE, no JVD, no lymphadenopathy, no carotid bruit CV: Regular rate and rhythm, S1S2 normal, no murmurs/rubs/gallops CHEST: right chest catheter RESPIRATORY: Clear to auscultation bilaterally, no rales/rhonchi/wheezes, breathing comfortably on room air GI: Right lower quadrant ostomy bag, secure in place. BS positive in 4 quadrants, soft, nontender, nondistended, no rebound or guarding, no organomegaly INTEGUMENTARY: Intact, no rashes, no lesions, no erythema NEUROLOGIC: RUE with 1/5 strength, RLE with 3/5 strength, LUE with 4/5 strength, LLE with 4/5 strength, no apparent facial droop, CN3-12 intact, speech is non- dysarthric. No dysdiadochokinesis. AOx3 PSYCHIATRIC: Mood and affect appear appropriate. LABORATORY DATA: Please see below. IMAGING: CXR: no acute cardiopulmonary abnormalities Noncontrast head CT: Bone window settings demonstrate an intact bony calvarium. There is no evidence of skull fracture or incidental bony calvarial lesion. The visualized paranasal sinuses appear clear. No intraorbital abnormality is seen. On soft tissue window setting images; the lateral, third, and fourth ventricles are normal in size and position. Ugalde-white differentiation pattern is normal above and below the tentorium. There are is no evidence of intracranial hemorrhage. No mass, edema, infarction, or midline shift is seen. No extra-axial fluid collection is appreciated. Patient is edentulous. There is mild vascular calcification in the distal internal carotid arteries. Some punctate calcification is noted in the basal ganglia. This is normal variant. There are mild small vessel changes. IMPRESSION: Mild small vessel changes and some vascular calcification. No acute intracrani al abnormality.. CTA neck: FINDINGS: There is mild vascular calcification in the aortic arch. No aneurysm or dissection is visible. Great vessel origins show calcification but no stenosis or occlusion. There is vascular calcification at the origin of a small right vertebral artery. Vertebrals are patent in the cervical segments left dominant. There is no significant finding in the common carotid arteries on either side. There mild vascular calcification of the carotid bifurcations bilaterally. No stenosis is seen in either proximal internal carotid. Cervical segments of the internal c arotid arteries are unremarkable. IMPRESSION: Mild carotid bifurcation plaquing. No high-grade stenosis seen on either side. Left dominant vertebral artery. No vertebral stenosis or occlusion. CTA brain: The distal vertebral on the right is small compared to the left but both vertebral is are patent. Basilar artery is widely patent. Posterior cerebral and superior cerebellar vessels are patent. The left posterior cerebral takes a persistent origin from the anterior circulation which is a normal variant. Distal internal carotid arteries are intact. Anterior and middle cerebral arteries have a normal appearance. No evidence of alonzo aneurysm, vessel cut off, or arteriovenous malformation. Internal cerebral vein and dural sinuses are patent. IMPRESSION: Unremarkable CT angiography of the brain. MRA brain: ANTERIOR CIRCULATION: Right internal carotid artery: Intracranial segment is patent with no significant stenosis. No aneurysm. Right middle cerebral artery: No occlusion or significant stenosis. No aneurysm. Right anterior cerebral artery: No occlusion or significant stenosis. No aneurysm. Left internal carotid artery: Intracranial segment is patent with no significant stenosis. No aneurysm. Left middle cerebral artery: No occlusion or significant stenosis. No aneurysm. Left anterior cerebral artery: No occlusion or significant stenosis. No aneurysm. 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 Left vertebral artery: No occlusion or significant stenosis. No aneurysm. Basilar artery: No occlusion or significant stenosis. No aneurysm. Right posterior cerebral artery: No occlusion or significant stenosis. No aneurysm. Left posterior cerebral artery: There is persistent origin of the left posterior cerebral artery. IMPRESSION: No acute abnormality. 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 These measure approximately 6 mm on the right and 5 mm on the left. These are new since the MRI on 06/21/2020. No mass effect or midline shift is present. There is no restricted diffusion to suggest acute infarction. Scattered increased T2 and FLAIR signal within the periventricular and subcortical white matter is present. This is nonspecific but likely related to chronic microangiopathic ischemic change. Cerebral ventricles: No hydrocephalus. Bones/joints: Unremarkable. Paranasal sinuses: There is mild mucosal thickening in the maxillary and ethmoid sinuses. Mastoid air cells: Fluid is present in the bilateral mastoid air cells. Orbits: Unremarkable. Soft tissues: Unremarkable. IMPRESSION: Small chronic subdural hematomas around both cerebral convexities. Repeat head CT without contrast, 10/17/20: Findings "brain: There is increase in size of the bilateral subdural hematomas overlying both cerebral hemispheres. In comparison to yesterday's examination. The right subdural measures up to 4.6 mm and is hyperdense. The left subdural hematoma measures up rectally 2.6 mm in width. It is also hyperdense. The tentorium is hyperdense which may be due to acute subdural hematoma. There is no parenchymal hematoma or acute cortical infarction. There is no midline shift. There also appears to be intravascular contrast." Impression: "The right subdural hematoma, now appears acute and has increased in size measuring 4.6 mm there is also a smaller acute left subdural hematoma measuring approximately 2.6 mm in width. There may be subdural hematoma overlying the tentorium. However, the radiodensity may also be due to the enhanced intravascular blood." PROGNOSIS: Fair ACTIVITY: As tolerated DIET: NPO at this time, pending transfer DISCHARGE PLAN: [facility] neurosurgery DISPOSITION: [facility] neurosurgery DISCHARGE INSTRUCTIONS: [facility] neurosurgery ITEMS TO FOLLOWUP ON ON OUTPATIENT: 1. neurological deficits DISCHARGE CONDITION: Stable TIME SPENT ON DISCHARGE: 46 minutes. Vital Signs/I&Os Vital Signs Date Time Temp Pulse Resp B/P (MAP) Pulse Ox O2 Delivery O2 Flow Rate FiO2 10/16/20 14:00 72 20 110/56 (74) 98 Nasal Cannula 2.0 10/16/20 12:37 97.8 Laboratory Data Labs 24H Laboratory Tests 2 10/16/20 09:31: Immature Granulocyte % (Auto) 0.2, Neutrophils (%) (Auto) 52.0, Lymphocytes (%) (Auto) 35.9, Monocytes (%) (Auto) 10.9H, Eosinophils (%) (Auto) 0.8, Basophils (%) (Auto) 0.2, Neutrophils # (Auto) 2.8, Lymphocytes # (Auto) 1.9, Monocytes # (Auto) 0.6, Eosinophils # (Auto) 0.0, Basophils # (Auto) 0.0, Nucleated Red Blood Cells % (auto) 0.0, Prothrombin Time 18.7H, Prothromb Time International Ratio 1.53, Activated Partial Thromboplast Time 67.1H 10/16/20 09:34: Bedside Glucose (Misc Panel) 71L 10/16/20 09:35: Anion Gap 10, Glomerular Filtration Rate 17.0L, Calcium Level 8.9, Total Creatine Kinase 60, Creatine Kinase MB < 1.0, Creatine Kinase MB Relative Index 1.67, Troponin I < 0.02 10/16/20 11:26: Coronavirus (COVID-19)(PCR) NEGATIVE, Influenza Type A (RT-PCR) NEGATIVE, Influenza Type B (RT-PCR) NEGATIVE, Respiratory Syncytial Virus (PCR) NEGATIVE CBC/BMP Laboratory Tests 10/16/20 09:31 10/16/20 09:35 FSBS Laboratory Tests Test 10/16/20 09:34 Range/Units Bedside Glucose (Misc Panel) 71 83-110 MG/DL Discharge Medications Scheduled Atorvastatin Calcium (Atorvastatin Calcium) 10 Mg Tablet, 10 MG PO DAILY, (Reported) Cholecalciferol (Vitamin D3) (D3-2000) 50 Mcg Capsule, 2,000 UNITS PO DAILY, (Reported) Cyclosporine (Restasis) 0.05% Droperette, 1 DROP OU BID, (Reported) Dexamethasone (Dexamethasone) 4 Mg Tablet, 4 MG PO ASDIRECTED, (Reported) TAKE BEFORE CHEMO ON THE Friday OF EACH MONTH Levothyroxine Sodium (Levothyroxine Sodium) 75 Mcg Tablet, 75 MCG PO QAM, (Reported) Lidocaine (Lidocaine) 5% Adh..patch, 1 PATCH TOP QHS, (Reported) APPLIES TO RIGHT SHOULDER Lipase/Protease/Amylase (Creon Dr 36,000 Units Capsule) 1 Each Capsule.dr, 2 CAP PO WM, (Reported) Lipase/Protease/Amylase (Creon Dr 36,000 Units Capsule) 1 Each Capsule.dr, 1 CAP PO ASDIRECTED, (Reported) TAKES WITH SNACKS [place]-3 Fatty Acids/Fish Oil (Fish Oil 1,000 mg Capsule) 1 Each Capsule, 1,000 MG PO DAILY, (Reported) Sevelamer Carbonate (Renvela) 800 Mg Tablet, 1,600 MG PO WM, (Reported) Scheduled PRN Sodium Polystyrene Sulfonate (Sps 15 gm/60 ml Suspension) 15 Gm/60 Ml Oral.susp, 15 GM PO ASDIRECTED PRN for DIALYSIS, (Reported) Tramadol HCl (Tramadol HCl) 50 Mg Tablet, 50 MG PO Q12H PRN for PAIN, (Reported) Allergies Coded Allergies: vancomycin (Verified Allergy, Intermediate, RASH/ITCHING, 01/24/20) JIMMY VARELA MD Oct 16, 2020 17:27 YOKO JONES D.O. Oct 18, 2020 02:13
--- NOTE | 2020-10-18 10:33 | ECHO ---
DATE OF PROCEDURE: 10/17/2020 Age: 75 Gender: Female Height: 163 cm Weight: 49 kg REFERRING PHYSICIAN: Dr. Houston. INDICATION: Cerebrovascular accident. MEASUREMENTS: IVS 0.9 cm LV 3.9 cm LVPW 1.0 cm LA 2.8 cm Aorta 3.09 cm IVC 0.9 cm Mitral E wave velocity 88 Mitral A wave velocity 88 E prime septal 6.9 E prime lateral 8.9 FINDINGS: This study is of good technical quality. The patient is in sinus rhythm. Left ventricle has normal size and systolic function, estimated LVEF around 65%. No segmental wall motion abnormalities are appreciated. Right ventricle is also normal size and systolic function. Both atria appear normal. Aortic valve is tricuspid. It has minimal sclerotic abnormalities, but mobility is preserved. There are mild degenerative abnormalities of the mitral valve with prominent calcification in the anterior mitral leaflet. Mobility is preserved. Tricuspid valve appears normal. Pulmonic valve was not well seen. No pericardial effusion is noted. Inferior vena cava is normal size. Aortic root is normal. Aortic arch and abdominal aorta were not well seen. Doppler interrogation of the aortic valve reveals no stenosis or insufficiency. There is trace mitral and trace tricuspid insufficiency. Calculated pulmonary artery pressure is within normal limits. Mitral inflow pattern and tissue Doppler imaging of the mitral annulus reveal likely mild diastolic dysfunction. CONCLUSIONS: 1. Study is of good technical quality, underlying sinus rhythm. 2. Normal LV size and systolic function, likely grade 1 diastolic dysfunction. 3. No hemodynamically significant valvular disease. 4. Normal central venous pressure and likely normal pulmonary artery pressure. 5. No obvious findings to explain cerebrovascular accident. [facility]
--- NOTE | 2020-10-18 12:22 | CR ---
CONSULTATION DATE: 10/18/2020 REFERRING PHYSICIAN: Tena Houston MD REASON FOR CONSULTATION: To assist in the management of end-stage renal disease. HISTORY OF PRESENT ILLNESS: Mrs. Turner is a 75-year-old, very pleasant female with multiple chronic medical problems and complicated history. She developed sudden facial weakness and right-sided body weakness during dialysis on October 16 and was sent to emergency room. She has been diagnosed with acute stroke and admitted to [facility]. She had only partial hemodialysis treatment prior to admission and will need further dialysis. Nephrology consultation was requested and the patient was seen this morning. PAST MEDICAL AND SURGICAL HISTORY: 1. End-stage renal disease, has been on maintenance hemodialysis. 2. History of Crohn's disease, status post colectomy and ileostomy. 3. History of recurrent multiple myeloma currently in relapse and on palliative chemotherapy. 4. Secondary hyperparathyroidism. 5. History of DVT in right upper extremity. 6. History of right arm melanoma. 7. History of basal cell carcinoma. 8. History of severe peripheral neuropathy. 9. Anemia. 10. Postherpetic neuralgia. 11. Hypothyroidism. 12. History of transient ischemic attack. PAST SURGICAL HISTORY: 1. Colectomy and ileostomy. 2. Permacath placement. 3. Vertebroplasty of lumbar spine. 4. Multiple procedures for AV fistulas and Permacath. 5. Appendectomy. 6. Right arm melanoma removal. 7. Basal cell carcinoma removal. 8. Stem cell transplant. PERSONAL AND SOCIAL HISTORY: The patient has no history of alcohol, tobacco or drug use. She lives at home with her daughter. FAMILY HISTORY: Significant for diabetes, hypertension and coronary artery disease. There is no family history for end-stage renal disease. ALLERGIES: SHE HAS ALLERGY TO VANCOMYCIN. HOME MEDICATIONS: 1. Atorvastatin 10 mg daily. 2. Vitamin D 2000 units daily. 3. Dexamethasone 4 mg as directed for part of her chemo. 4. Revlimid once a month. 5. Levothyroxine 75mcg daily. 6. Creon capsule 36,000 units with each meal. 7. Renvela 800 mg two tablets with meals. 8. Coumadin 5 mg daily. 9. Tramadol 50 mg as needed for pain. 10. Lidocaine which currently he is not using any topical because he has no more fistula. REVIEW OF SYSTEMS: Patient was in hemodialysis on Arturo 14th when he developed aphasia and right-sided weakness, no fever or chills. There is no history of fall. She has mild difficulty with her hearing. She also has prior history of subdural hematomas. Nose and throat are unremarkable. Cardiovascular system: Significant for chronic dyspnea and hypoxemia. Respiratory system is negative for cough or hemoptysis. GI system: Negative for nausea or vomiting. She has history of ileostomy, status post total colectomy. system: Negative for dysuria or hematuria. Endocrine system is significant for hypothyroidism and secondary hyperparathyroidism. She does not have diabetes. Hematological system is significant for multiple myeloma, status post stem cell transplant and history of anemia. Psychosocial system: Significant for anxiety. Neurological system is significant for prior TIA and subdural hematomas. Skin is significant for history of basal cell carcinoma and malignant melanoma in the past. PHYSICAL EXAMINATION: The patient is sitting in the chair at the time of my visit. Temperature is 98.3 degrees Fahrenheit, heart is 68 per minute and respiratory rate 18 per minute. Blood pressure 118/58 mmHg and oxygen saturation 100% on one liter oxygen. Head is atraumatic. Neck: Supple and without JVD or thyroid enlargement. Her speech is slightly slurred and slow. Ears, nose and throat are unremarkable. Heart exam reveals a regular S1 and S2. Lungs sound clear to auscultation bilaterally. Abdomen soft and nontender and ileostomy functions. Extremities have no cyanosis or clubbing. A Permacath in the right upper chest is intact without any signs of infection or bleeding. Skin has no rash or ulcers. Neurologically, she has slight slurring of her speech and minimal weakness of her right upper and lower extremity. LABORATORY DATA: Today's labs showed WBC count 4.6, hemoglobin 9.6 and hematocrit 30.2. Platelets 161. Sodium 136, potassium 4.2, CO2 34, BUN 20 and creatinine 5.18. Glucose 82 and calcium 8.9. Yesterday her sodium was 140 and potassium 2.9 and these labs were drawn immediately after dialysis. Troponin was less than 0.2. PROBLEMS: 1. End-stage renal disease. The patient did receive more than 50% of her dialysis treatment yesterday. There is no emergent need for dialysis at this time and we will reevaluate her tomorrow for dialysis. 2. Anemia. Her anemia is stable and does not need urgent intervention. CBC will checked again tomorrow morning. 3. Hypokalemia. Most likely her hypokalemia was due to the labs drawn immediately after dialysis yesterday and has improved with some supplement. At present no intervention is needed and no more potassium supplement should be given due to risk of hyperkalemia. 4. New stroke with prior history of subdural hematomas. 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 She has been on chronic anticoagulation and she will continue with the same. 5. Multiple myeloma in relapse. The patient has been on chemotherapy and is due for her next dose on . We will try that she can get out of hospital and go for her chemotherapy on . Thank you for involving me in the care of Mrs. Turner. I will follow her along with you. ANISHAD
== END 2020-10-18 02:28 | disposition short-term general hospital (02) | DRG 64 ==
LOC: M ED 08:59 → M ED INP 12:52 → ENRESERV 13:53 → M PCU 15:53
PROVIDERS: ADMIT Internal Medicine; ATTEND Internal Medicine
DX: I62.01 Nontraumatic acute subdural hemorrhage (principal); N18.6 End stage renal disease; G45.9 Transient cerebral ischemic attack, unspecified; C90.02 Multiple myeloma in relapse; Z94.84 Stem cells transplant status; N25.81 Secondary hyperparathyroidism of renal origin; K50.90 Crohn's disease, unspecified, without complications; R47.01 Aphasia; Z66 Do not resuscitate; F41.9 Anxiety disorder, unspecified; E87.6 Hypokalemia; D63.1 Anemia in chronic kidney disease; E03.9 Hypothyroidism, unspecified; Z86.718 Personal history of other venous thrombosis and embolism; Z79.01 Long term (current) use of anticoagulants; Z93.2 Ileostomy status; Z79.899 Other long term (current) drug therapy; Z88.1 Allergy status to other antibiotic agents; Z85.820 Personal history of malignant melanoma of skin; Z85.828 Personal history of other malignant neoplasm of skin; Z99.2 Dependence on renal dialysis; Z20.828 Contact with and (suspected) exposure to other viral communicable diseases

== ENCOUNTER → 2020-10-31 | Outpatient (CLI) | payer MEDICARE, OTHER ==
[~2020-10-31] MED LIST changes: +SODI15SS PO
--- NOTE | 2020-10-31 08:27 | REPVR ---
PROCEDURE INFORMATION: Exam: CT Head Without Contrast Exam date and time: 10/31/2020 8:05 AM Age: 75 years old Clinical indication: Pain; Other: F/u to subdural hematoma TECHNIQUE: Imaging protocol: Computed tomography of the head without contrast. Radiation optimization: All CT scans at this facility use at least one of these dose optimization techniques: automated exposure control; mA and/or kV adjustment per patient size (includes targeted exams where dose is matched to clinical indication); or iterative reconstruction. COMPARISON: 1. CT Head without contrast 10/17/2020 10:[address] Head without contrast 06/18/2020 6:54:46 AM FINDINGS: Brain: Bilateral subdural hemorrhage along convexities, tentorium, falx, and dural reflections of cavernous sinuses have resolved. No interval acute hemorrhage. No midline shift. Ugalde-white differentiation is intact. Cerebral ventricles: No ventriculomegaly. Bones/joints: Several small subcentimeter skull lucencies appear stable. Paranasal sinuses: Very small retention cyst right maxillary sinus unchanged. Postoperative changes paranasal sinuses. Nasal septum mildly deviated to right with septal spur. No air-fluid levels or acute sinusitis. Mastoid air cells: No significant mastoid effusion. Soft tissues: Unremarkable as visualized. IMPRESSION: Resolution of bilateral subdural hemorrhage. Electronically signed by: Kely Christian On 10/31/2020 08:27:22 AM
== END ==
LOC: M RAD 07:54
PROVIDERS: ATTEND Psychiatry & Neurology Neurology
DX: I62.00 Nontraumatic subdural hemorrhage, unspecified (principal)

== ENCOUNTER → 2020-12-20 | Outpatient (CLI) | payer MEDICARE, OTHER ==
[~2020-12-20] MED LIST changes: +IXAZ3CAP PO; -[UNRECOGNIZED DRUG - CODE] PO
--- NOTE | 2020-12-20 09:41 | REP ---
INDICATION: CERVICAL PAIN. COMPARISON: None. TECHNIQUE: AP, flexion/extension, bilateral oblique and open mouth views of the cervical spine. FINDINGS: Age-related osteopenia and advanced multilevel degenerative changes include endplate sclerosis, disc space narrowing, osteophytosis and facet hypertrophy. No acute fracture/compression injury. Minimal chronic subluxation at C4-5 of approximately 1.5 mm noted. Prevertebral soft tissues are normal. IMPRESSION: Osteopenia and advanced multilevel degenerative spondylosis. <Electronically signed by Celestino López > 12/20/20 0972
== END ==
LOC: M RAD 09:15
PROVIDERS: ATTEND Internal Medicine Medical Oncology
DX: M50.321 Other cervical disc degeneration at C4-C5 level (principal); C90.00 Multiple myeloma not having achieved remission

== ENCOUNTER 2020-12-22 09:04 | Emergency (ER) | payer MEDICARE, OTHER ==
[~2020-12-22] VITALS: Ht 162.6 cm; Wt 52.8 kg
--- NOTE | 2020-12-22 09:35 | REP ---
INDICATION: headache COMPARISON: 10/31/2020 TECHNIQUE: Axial noncontrast images from the skull base to the thoracic inlet with coronal reformations. This CT examination was performed using the following dose reduction techniques: Automated exposure control, adjustment of mA and/or kv according to the patient's size, and use of iterative reconstruction technique. FINDINGS: Age-related atrophy and microvascular ischemic changes are appreciated. The ventricles and sulci are symmetric. Ugalde-white differentiation is maintained. There is no evidence for acute intracranial hemorrhage, mass/mass effect, pathology or infarction. No extra-axial fluid collection. Calvarium is intact. Paranasal sinuses and mastoid air cells are clear. IMPRESSION: Age related atrophy and microvascular ischemic changes. No acute intracranial hemorrhage, infarction, or mass/mass effect. <Electronically signed by Celestino López > 12/22/20 0931
[2020-12-22] MEDS ORDERED: ONDANSETRON 4MG/2ML VIAL IV ONE (09:45)
[2020-12-22] MEDS ORDERED: MORPHINE 2 MG/ML 1ML VIAL (J2270) IV PRN (09:45)
[2020-12-22 10:02] LABS: BASO % 0.4 % (0.0-1.0); EOS % 1.2 % (0.0-3.0); HEMATOCRIT 30.6 % (36.0-47.0); HEMOGLOBIN 10.1 g/dl (12.0-15.5); LYMPH # 1.3 10^3/uL (1.5-5.0); LYMPH % 27.2 % (24.0-44.0); MEAN CORPUSCULAR HEMOGLOBIN 33.7 pg (27.0-33.0); MONO # 0.4 10^3/uL (0.0-0.8); MONO % 7.4 % (2.0-8.0); NEUTROPHILS # 3.1 10^3/uL (1.5-8.5); NEUTROPHILS % 63.6 % (36.0-66.0); PLATELET COUNT, AUTOMATED 182 10^3/uL (150-450); WHITE BLOOD COUNT 4.9 10^3/uL (4.0-10.0)
--- OUTSIDE RECORDS SUMMARY | 2020-12-22 10:02 | CCD | Summary of Care ---
Author Author [facility] Address Unknown Phone Unavailable Care Team Providers Care [employer] Buyer Name Role Phone Isma Herrera MD PCP Reason for Visit * Reason Comments Follow-up [facility]ODC f/u SDH Encounter Details Care Team Description Date Type Department Glenroy Arreola MD [address] [place] [id number] Subdural hematoma, nontraumatic (Primary Dx) 11/08/2020 [facility] [address] [place] [id number] Allergies Comments Active Allergy Reactions Severity Noted Date Vancomycin Itching, Rash Medium 03/23/2019 documented as of this encounter (statuses as of 11/08/2020) Medications End Date Status Medication Sig Dispensed Refills Start Date Active levothyroxine (SYNTHROID) Take 75 mcg 0 75 MCG tablet by mouth every morning Active sevelamer (RENVELA) 800 Take 800 mg 0 MG tablet by mouth Three times daily with meals Active Multiple Vitamin Take 1 0 (MULTIVITAMIN) capsule capsule by mouth daily. Active fish oil-omega-3 fatty Take 1 g by 0 acids 1000 MG capsule mouth daily Active cycloSPORINE (RESTASIS) Place 1 drop 0 0.05 % ophthalmic into both emulsion eyes every 12 (twelve) hours. Active loperamide (IMODIUM) 2 MG Take 2 mg by 0 capsule mouth daily as needed for Diarrhea Active pancrelipase, Take 2 720 capsule 3 Nqo-Oaix-Mpca, (CREON) capsules by 9 78992 units CPEP capsule mouth Three times daily with meals 1 capsule with snack Active Atorvastatin Calcium 10 Take 10 mg by 0 MG Oral Tablet (LIPITOR) mouth every evening Active Warfarin Sodium 5 MG Oral 0 Tablet (COUMADIN) 9 documented as of this encounter (statuses as of 11/08/2020) Active Problems Problem Noted Date Subdural hematoma, nontraumatic 10/18/2020 Chronic obstructive pulmonary disease 10/18/2020 Hypothyroidism 10/18/2020 Interstitial pulmonary fibrosis 10/18/2020 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 Essential hypertension 10/07/2014 History of melanoma 07/11/2014 Overview: Right upper arm ESRD (end stage renal disease) on dialysis 3 Multiple myeloma 02/24/2013 Overview: S/P Stem Cell Transplant 04/2009 Anemia of chronic renal failure, stage 5 Hypotension of hemodialysis Encounter for hemodialysis for end-stag e renal disease Crohn's disease Ileostomy in place Right sided weakness Impaired mobility Anticoagulated by anticoagulation treat ment documented as of this encounter (statuses as of 11/08/2020) Social History Date Tobacco Use Types Packs/Day Years Used Quit: 1980 Former Smoker Cigarettes 1 2 Smokeless Tobacco: Never Used Comments: quit 38 years ago Drinks/Week oz/Week Comments Alcohol Use 0 Standard drinks or equivalent 0.0 No Sex Assigned at Date Recorded Not on file Date Recorded COVID-19 Exposure Response 10/16/2020 6:08 PM EST In the last month, have you been in contact with No / Unsure someone who was confirmed or suspected to have Coronavirus / COVID-19? documented as of this encounter Last Filed Vital Signs Not on filedocumented in this encounter Progress Notes * Yusuf Bhatti MD - 11/08/2020 1:30 PM EST Subjective: Patient ID: Yoana Escobedo is a 75 y.o. female with a history of multiple myel kevin status post bone marrow transplant end-stage renal disease on dialysis Crohn 's disease status post colectomy/colostomy. She presented in decear after a 2 -day history of garbled speech with worsened right-sided weakness. She was diagn osed with bilateral thin acute on chronic subdurals and her anticoagulation was held. She returns today as a telemed follow up. She has been doing better since last seen, she feels her right sided strength is improved and has no new neurolo gic complaints. Her speech is doing well. She denies any other weakness numbness or tingling no bowel bladder incontinence. She denies visual changes or diffic ulty swallowing. She has been holding her coumadin as instructed. This appointment has been scheduled using telemedicine due to the necessity of p roviding care while maintaining social distancing during the COVID-19 pandemic. This has been discussed with the patient who consents to this telemedicine encou nter. HPI Yoana has a past medical history of Chronic kidney disease, Crohn's disease, I leostomy in place, Melanoma, MRSA (methicillin resistant staph aureus) culture p ositive (2006), Multiple myeloma (2008), and Skin cancer. Yoana has Multiple myeloma; ESRD (end stage renal disease) on dialysis; History of melanoma; Subdural hematoma, nontraumatic; Anemia of chronic renal failure, stage 5; Hypotension of hemodialysis; Encounter for hemodialysis for end-stage r enal disease; Crohn's disease; Ileostomy in place; Right sided weakness; Impaire d mobility; Chronic obstructive pulmonary disease; Essential hypertension; Hypot hyroidism; Interstitial pulmonary fibrosis; Thrombosis of superior vena cava; an d Anticoagulated by anticoagulation treatment on their problem list. Yoana has a past surgical history that includes Excision basal cell carcinoma (Left); Appendectomy (1959); Ileostomy (1980); Limbal stem cell transplant (04/04); Dialysis fistula creation (Left, 2008); Skin surgery (Right, 2009); Spine surgery (2009); and Colonoscopy. Her family history is not on file. Yoana reports that she quit smoking about 40 years ago. Her smoking use includ ed cigarettes. She has a 2.00 pack-year smoking history. She has never used smok eless tobacco. She reports that she does not drink alcohol or use drugs. Yoana has a current medication list which includes the following prescription(s ): atorvastatin, cyclosporine, fish oil-omega-3 fatty acids, levothyroxine, eliane ramide, multivitamin, pancrelipase ([id number]), sevelamer carbonate, and war farin. Current Outpatient Medications on File Prior to Visit Medication Sig Dispense Refill Atorvastatin Calcium 10 MG Oral Tablet (LIPITOR) Take 10 mg by mouth ever y evening cycloSPORINE (RESTASIS) 0.05 % ophthalmic emulsion Place 1 drop into both eyes every 12 (twelve) hours. fish oil-omega-3 fatty acids 1000 MG capsule Take 1 g by mouth daily levothyroxine (SYNTHROID) 75 MCG tablet Take 75 mcg by mouth every mornin g loperamide (IMODIUM) 2 MG capsule Take 2 mg by mouth daily as needed for Diarrhea Multiple Vitamin (MULTIVITAMIN) capsule Take 1 capsule by mouth daily. pancrelipase, Dvj-Norl-Fmdy, (CREON) 60825 units CPEP capsule Take 2 caps ules by mouth Three times daily with meals 1 capsule with snack 720 capsule 3 sevelamer (RENVELA) 800 MG tablet Take 800 mg by mouth Three times daily with meals Warfarin Sodium 5 MG Oral Tablet (COUMADIN) No current facility-administered medications on file prior to visit. Yoana is allergic to vancomycin. Review of Systems Constitutional: Negative for activity change. HENT: Negative for congestion. Respiratory: Negative for apnea. Cardiovascular: Negative for chest pain. Gastrointestinal: Negative for abdominal distention. Genitourinary: Negative for difficulty urinating. Musculoskeletal: Negative for arthralgias. Neurological: Negative for dizziness. Psychiatric/Behavioral: Negative for agitation. Objective: Physical Exam Exam limited by telephone nature of call but patient is alert and oriented and h as a linear thought pattern without evidence of aphasia. Assessment: 75 year old female with a history of bilateral acute on chronic subdural hematom as presents as a 3 week follow up after holding her coumadin Plan: Exam limited by telephone nature of call but patient denies any new symptoms CT head with interval resolution of hemorrhage OK To resume anticoagulation F/u PRN Discussed with Dr Arreola I have discussed the details of history exam radiology and plan with the residen t and I agree with the documentation above. documented in this encounter Plan of Treatment Health Maintenance Due Date Last Done Comments Hepatitis C Screening (B. 1945 [id number]) MMR Vaccines (1 of 1 - 1946 Standard series) Varicella Vaccines (1 of 1946 2 - 2-dose childhood series) Pneumococcal Vaccine: 1951 Pediatrics (0 to 5 Years) and At-Risk Patients (6 to 64 Years) (1 of 3 - PCV13) DTaP,Tdap,and Td Vaccines 1954 (1 - Tdap) Breast Cancer Screening 2 1997 years Colon Cancer Screening 10 1997 yrs Zoster Vaccines (1 of 2) 1997 Osteoporosis Screening 2 2012 yr Pneumococcal Vaccine: 65+ 2012 Years (1 of 1 - PPSV23) Influenza Vaccine 08/03/2020 08/05/2013, 07/04/2012, 08/26/2008, Additional history exists Hepatitis B Vaccines Aged Out 03/03/2017 No longer eligible based on patient's age to complete this topic HIB Vaccines Aged Out No longer eligible based on patient's age to complete this topic Hepatitis A Vaccines Aged Out No longer eligibl e based on patient's age to complete this topic IPV Vaccines Aged Out No longer eligible based on patient's age to complete this topic documented as of this encounter Results Not on filedocumented in this encounter Visit Diagnoses Diagnosis Subdural hematoma, nontraumatic - Prima ry Subdural hemorrhage documented in this encounter Additional Health Concerns Last Indicated Resolved Time Infection Onset Date 03/23/2019 MRSA (Methicillin 03/23/2019 Resistant Staphylococcus aureus) documented as of this encounter
--- OUTSIDE RECORDS SUMMARY | 2020-12-22 10:02 | CCD | Summary of Care ---
Author Author [facility] Organization [facility] Address Unknown Phone Unavailable Care Team Providers Care Artificial Teeth Inspector Name Role Phone Isma Herrera MD PCP Reason for Referral * Diagnostic Radiology (Routine) Referred By Contact Referred To Contact Status Reason Specialty Diagnoses / Procedures Pedro Bustos MD [address] [place] [id number] Email: [email or web address] Open Radiology Diagnoses Subdural hematoma, nontraumatic P rocedures CT Head without Contrast Reason for Visit * Auth/Cert Referred By Contact Referred To Contact Status Reason Specialty Diagnoses / Procedures Diagnoses expanding subdural hematoma SDH (subdural hematoma) Encounter Details Care Team Description Date Type Department Venus Feng MD [address], [place] [id number] Subdural hematoma, nontraumatic (Primary Dx) 10/18/[address] NEUROSCIENCE ITICAL - Encounter CARE 10/19/[address] [place] [address] Allergies Comments Active Allergy Reactions Severity Noted Date Vancomycin Itching, Rash Medium 03/23/2019 documented as of this encounter (statuses as of 10/19/2020) Medications End Date Status Medication Sig Dispensed Refills Start Date Active levothyroxine (SYNTHROID) Take 75 mcg 0 75 MCG tablet by mouth every morning Active sevelamer (RENVELA) 800 Take 1,600 mg 0 MG tablet by mouth 3 (three) times daily with meals. Active Multiple Vitamin Take 1 0 (MULTIVITAMIN) [...] Active pancrelipase, Take 2 720 capsule 3 Vlq-Hunn-Amvu, (CREON) capsules by 9 23751 units CPEP capsule mouth Three times daily with meals 1 capsule with snack Active Atorvastatin Calcium 10 Take 10 mg by 0 MG Oral Tablet (LIPITOR) mouth every evening 10/18/2020 Discontinued (Medication Rec oncilation) Vitamin D-3 Take 2,000 0 (CHOLECALCIFEROL) 25 MCG Units by (1000 UT) CAPS mouth every morning 10/18/2020 Discontinued (Discontinued b y another clinician) ixazomib (NINLARO) Take 3 mg by 0 capsuleIndications: 1 cap mouth on day 1,8,15 2 hrs Indications: after meal 1 cap on day 1,,15 2 hrs after meal 10/19/2020 Discontinued (Stop Taking at Discharge) warfarin (COUMADIN) 5 MG Take 5 mg by 2 02/08 tablet mouth daily 9 10/19/2020 Discontinued (Stop Taking at Discharge) dexamethasone (DECADRON) Take 4 mg by 11 12/06 4 MG tablet mouth Daily 9 as directed 1 day before chemo 10/18/2020 Discontinued (Medication Rec oncilation) diphenhydrAMINE Take 25 mg by 0 (BENADRYL) 25 mg capsule mouth as needed for Itching (PRIOR DIALYSYS) 10/18/2020 Discontinued (Medication Rec oncilation) acetaminophen (TYLENOL) Take 500 mg 0 500 MG tablet by mouth as needed for Pain 10/18/2020 Discontinued (Medication Rec oncilation) oxycodone-acetaminophen Take 1 tablet 0 (PERCOCET) 5-325 MG per by mouth tablet every 4 (four) hours as needed for Pain 10/18/2020 Discontinued (Duplicate) Creon 50658 UNIT Oral Take 2 0 06/16/20 1 Capsule Delayed Release capsules by 9 Particles (pancrelipase mouth Three (Sfb-Zefm-Wamc)) times daily before meals 10/19/2020 Discontinued (Stop Taking at Discharge) Tylenol PM Extra Strength Take 1 tablet 0 500-25 MG Oral Tablet by mouth (diphenhydramine-acetamin nightly as ophen) needed documented as of this encounter (statuses as of 10/19/2020) Active Problems Problem Noted Date Subdural hematoma, [...] as of this encounter (statuses as of 10/19/2020) Social History Date Tobacco Use Types Packs/Day [...] of this encounter Last Filed Vital Signs Reading Time Taken Comments Vital Sign 120/72 10/19/2020 2:46 PM EST Blood Pressure 87 10/19/2020 2:46 PM EST Pulse 37.1 C (98.8 F) 10/19/2020 2:00 PM EST Temperature 24 10/19/2020 2:46 PM EST Respiratory Rate 94% 10/19/2020 2:46 PM EST Oxygen Saturation - - Inhaled Oxygen Concentration 52.5 kg (115 lb 11.9 oz) 10/19/2020 4:00 AM EST Weight 166 cm (5' 5.35") 10/18/2020 4:00 AM EST Height 19.05 10/18/2020 4:00 AM EST Body Mass Index documented in this encounter Discharge Summaries * Pedro Bustos MD - 10/19/2020 2:26 PM EST Neurology ICU Discharge Summary Patient Yoana Escobedo Admit Date 10/18/2020 1945 Discharge Date 10/19/2020 PCP Isma Herrera MD Discharge Physician Dr. Venus Feng Primary Discharge Diagnosis: Subdural hematoma, nontraumatic, Right greater than Left complicated by anticoag ulant use - acute on chronic Secondary Discharge Diagnosis: Active Problems: Multiple myeloma ESRD (end stage renal disease) on dialysis History of melanoma Subdural hematoma, nontraumatic Anemia of chronic renal failure, stage 5 Hypotension of hemodialysis Crohn's disease s/p ileostomy Ileostomy in place Right sided weakness Chronic obstructive pulmonary disease Essential hypertension Hypothyroidism SVC Thrombosis, on custodial AC s/p reversal d/t acute on chronic SDH History & Hospital Course Reason for admission Yoana Escobedo is a 75 y.o. female who came here as a transfer from outside [facility] after developing right-sided weakness and garbled speech while patient was having dialysis Hospital course Ms. Yoana Escobedo is a 75-yr-old female with past medical history most signif icant for on hemodialysis on M/W/F, multiple myeloma (s/p bone marrow transplant ), Crohn's disease (s/p colectomy and colostomy), hypothyroidism. The patient i nitially presented to [facility] after she had right-sided weakness and garbled speech while she was having dialysis on 10/16/2020. That her sp eech improved and she was diagnosed as TIA in the setting of negative brain MRI for acute ischemic stroke; however, it showed bilateral chronic small subdural h ematoma. The patient continued on warfarin and repeat scan showed an increase i n size of the right subdural hematoma (acute on chronic right SDH). The [facility] for further evaluation and management of ac [place] on chronic nontraumatic subdural hematoma. [facility], the patient was awake, alert, oriented x3. Examination o f upper extremities is limited due to shoulder pain with a history of rotator cu ff tear. The right was noted to be weaker than the left but she was able to mov e all extremities antigravity. ICH score on admission was 0. Neurosurgery was consulted. Repeat CT scans of the head (stability scan after 6 hours) were orde red and reviewed. Patient's warfarin was held during admission. Nephrology was consulted and the patient had a dialysis session on Friday, . Patient's blood pressure dropped with systolic to the 80s while patie nt was having dialysis. The patient was given 1 L of NS as IV bolus and her blo od pressure improved. A lidocaine patch was applied to her shoulders for pain. Basic labs and imaging were ordered and reviewed. The patient's home dose of le vothyroxine was continued for her hypothyroidism. Patient's home dose of Creon was continued for her chronic pancreatitis. The patient is discharged home with the medications as mentioned below. She was advised to stop taking warfarin until she follows up with the doctor who prescr ibed it. She is given instructions to have a repeat CT scan of the head without contrast prior to following up with neurosurgery in [address] Head Without Contrast Result Date: 10/18/2020 Impression: Subdural hemorrhage along the bilateral superior frontoparietal conv exities bilaterally, slightly more prominent and more posteriorly, likely relate d to redistribution without any significant change. No significant mass effect o r midline shift. Mr Brain Without Contrast Result Date: 10/19/2020 IMPRESSION: No evidence of abnormal restricted diffusion to suggest acute infar ct. Bilateral subdural hemorrhages along frontal parietal convexities, right lar federico than left. Subdural hemorrhage along posterior falx and bilateral tentorium. No new hemorrhage. Consults Neurosurgery, PT/OT Discharge Exam Discharge Neurologic Exam alert, oriented x3 speech: normal in context and clarity memory: intact grossly cranial nerves II-XII: intact right upper and lower extremity motor strength of 4-/5; right dorsiflexion motor strength of 4-/5; Left upper and left lower extremity motor strength of 5/5; li ght sensation intact and symmetrical Discharge Medications Medication List CONTINUE taking these medications atorvastatin 10 MG tablet Commonly known as: LIPITOR cycloSPORINE 0.05 % ophthalmic emulsion Commonly known as: RESTASIS fish oil-omega-3 fatty acids 1000 MG capsule levothyroxine 75 MCG tablet Commonly known as: SYNTHROID loperamide 2 MG capsule Commonly known as: IMODIUM multivitamin capsule pancrelipase (Guq-Oggf-Hizm) 17472 units Cpep capsule Commonly known as: CREON Take 2 capsules by mouth Three times daily with meals 1 capsule with snack sevelamer carbonate 800 MG tablet Commonly known as: RENVELA STOP taking these medications dexamethasone 4 MG tablet Commonly known as: DECADRON Tylenol PM Extra Strength 25-500 MG Tabs Generic drug: diphenhydramine-acetaminophen warfarin 5 MG tablet Commonly known as: COUMADIN Allergies: Vancomycin Follow Up Appointments & Patient Instructions Follow up with PCP in 1 week. Follow up with doctor in cancer center for missed treatment for multiple myeloma . Follow up with neurosurgery in 2 weeks. Tests to be done prior to follow-up: CT scan of the Head without contrast Instructions: 1. Follow up with primary care doctor in 1 week 2. Follow up with doctor in Cancer Center about patient's treatment for Multiple Myeloma 3. Get a repeat CT scan of the head without contrast in 2 weeks before follow up with Neurosurgery clinic. 4. Follow up with Neurosurgery clinic in 2 weeks after discharge. 5. Do not take warfarin temporarily until it is discussed with neurosurgery and the doctor who prescribed the medication. 6. Get evaluation and treatment with either home physical therapy or outpatient physical therapy. 7. If patient has symptoms like a new weakness, or twitching of a muscle or musc les, body shaking, or seizure-like activity, speech difficulty, increased sleepi ness, headache that's new and doesn't go away with Tylenol, please call EMS or h ave family bring patient to the ER. 8. Discuss with the doctor who prescribed warfarin if and when patient can take warfarin again. 9. Explain to the ones who perform dialysis that they might have to make adjustm ents because when patient had dialysis in the hospital, blood pressure dropped. Discharge Recommendations & Disposition Communication/Instructions to the PCP: Discuss with PCP about hospitalization a nd that warfarin has been stopped because of subdural hematoma. Pending labs/ tests done in hospital and still need to be followed up after disc harge: None Disposition: The patient's status was stable during the hospital course. At this time patient is stable and will be discharged to Home. Diet: renal diet Activity/Precautions: activity as tolerated Code Status: DNR/DNI Patient seen and examined. Case discussed with Dr. Venus Feng and formulated the above plan together. Pedro Bustos MD PGY1, Neurology October 19, 2020 2:27 PM Associated attestation - Venus Feng MD - 10/19/2020 3:19 PM EST N-ICU ATTENDING ADDENDUM: Date of Encounter: 10/19/20 I personally saw and examined the patient, discussed the case and formulated ass essment and plan with the resident and agree with the history, exam, assessment and plan outlined in the resident's note except where stated in the supplemental documentation by myself. 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 F/u with : PCP in 1-2 weeks. Nephrology as previously scheduled for HD. Consider decreasing rate of HD to av oid hypotension. Neurosurgery clinic in 2 weeks with f/u CTH. Please continue to hold COU, at [address] until f/u with NSx. Discuss with primary provider the need to resume AC. Hem-Onc as previously scheduled, for chemotherapry infusions Total time >30 min, more than 50% of time spent counseling pt and coordinating d/c and f/u plan. Discussed with: patient, residents, and staff Signature: Venus Feng documented in this encounter Discharge Instructions * Instructions* Pedro Bustos MD - 10/19/2020 1:38 PM EST Follow up with primary care doctor in 1 week Follow up with doctor in Cancer Center about patient's treatment for Multiple My eloma Get a repeat CT scan of the head without contrast in 2 weeks before follow up [facility] clinic. Follow up with Neurosurgery clinic in 2 weeks after discharge. Do not take warfarin temporarily until it is discussed with neurosurgery and the doctor who prescribed the medication. Get evaluation and treatment with either home physical therapy or outpatient phy sical therapy. If patient has symptoms like a new weakness, or twitching of a muscle or muscles , body shaking, or seizure-like activity, speech difficulty, increased sleepines s, headache that's new and doesn't go away with Tylenol, please call EMS or have family bring patient to the ER. Discuss with the doctor who prescribed warfarin if and when patient can take war farin again. Explain to the ones who perform dialysis that they might have to make adjustment s because when patient had dialysis in the hospital, blood pressure dropped. documented in this encounter Progress Notes * Hina Boogie RN - 10/19/2020 4:02 PM EST All times approximated. 1600- IVs removed, AVS reviewed and agreed upon, pt transported via wheelchair t o front [employer] to son in law. * Kena Bonilla RN - 10/19/2020 2:43 PM EST Patient going home with today and requires assist with mobility. Patient stated that her son in law Tony Burrell is home with her and can provide assist. CM spo ke to Tony Burrell who confirmed that he can provide assist. Dc plan for patient to go home today with family assist and team to provide patient with a script f or outpatient PT. No other CM needs identified. CM to follow. 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 She endorses right arm we akness and states that her right side leg has improved. Also complains of mild shortness of breath and on 2 L of oxygen (baseline 2.5 L). She reports no issue s on hemodialysis treatment yesterday. No overnight events reported. She denie s headache, blurry vision, dizziness, palpitation, chest pain, abdominal pain, l imb swelling, constipation and diarrhea, dysuria or hematuria, and pain in extre mities. Review of Systems: All systems reviewed, pertinent positives and negatives as above; otherwise syst emic review is nil of note. Scheduled Meds: levothyroxine 75 mcg Oral Daily lidocaine 1 patch Transdermal Daily pancrelipase (Tey-Znrg-Jipp) 72,000 units of lipase Oral 3 x Daily with Meals sevelamer 1,600 mg Oral 3 x Daily with Meals sodium chloride 500 mL Intravenous Once sodium chloride 500 mL Intravenous Once Continuous Infusions: PRN Meds:heparin (porcine), pancrelipase (Ufe-Toik-Rcrh) Objective: Vital signs in last 24 hours: Temp: [35.8 C (96.4 F)-37.1 C (98.8 F)] 36.8 C (98.2 F) Pulse: [67-81] 81 Resp: [12-44] 44 BP: (88-121)/(38-78) 120/78 SpO2: [96 %-100 %] 96 % O2 Therapy: Oxygen O2 Flow Rate (L/min): [1 L/min-2 L/min] 2 L/min Intake/Output last 3 shifts: I/O last 3 completed shifts: In: 1840 [P.O.:240; Other:1100; IV Piggyback:500] Out: 1250 [Urine:350; Other:400; Stool:500] Intake/Output this shift: I/O this shift: In: 240 [P.O.:240] Out: 200 [Urine:100; Stool:100] Physical Exam: Gen: Elderly lady on 2 liters of oxygen support lying comfortable without any di stress. Head: normocephalic, atraumatic Eyes: Pupils are equal, round, and reactive to light. Neck: supple, JVP doesn't appear to be raised, no thyromegaly present. Cvs: regular rate and rhythm, normal S1 and S2, no murmur, no gallop Resp: not in distress, bilateral lungs are clear, no added sounds Abd: soft, nondistended, nontender, BS present Photographer Portrait: no focal neurological deficit, AOX3. Ms: no b/l edema in lower limbs Skin:warm, dry, and without rash. Psy: normal mood, affect, and behavior. HD Access: Right IJ permacath functional, right upper arm aVF immature. Data Reviewed: Recent Labs Lab 10/18/20 0426 10/19/20 0418 NA 136 136 K 4.8 4.2 CL 97* 104 BICARBONATE 25 21* BUN 36* 18 CREATININE 6.68* 3.96* GLUCOSE 87 80 CALCIUM 8.8 8.7* ALBUMIN 4.0 -- PHOS 5.9* -- Recent Labs Lab 10/18/20 0426 10/19/20 0418 HCT 30.0* 30.8* HGB 10.4* 10.6* MCH 35.5* 35.2* MCHC 34.6 34.4 MCV 102.7* 102.5* PLT 163 138* RDW 16.5* 16.5* WBC 4.7 3.5* Summary & Assessment: In summary, Yoana Escobedo who is a 75 y.o. female with ESRD on HD MWF who was transferred from outside hospital for acute on chronic right side subdural hemat kevin in setting of continued warfarin; previously she was diagnosed as TIA with M RI significant for bilateral small chronic subdural hematoma. CT scan done at [facility] showed subdural hematoma bilaterally without mass-effect or midline shift . Nephrology consulted for inpatient hemodialysis service. Recommendations are below. Plan: 1. Renal - ESRD on HD MWF -patient received dialysis session yesterday withou t any issues. She completed 3 hours treatment. Labs reviewed; no urgent indic ation of hemodialysis today. We plan to dialyze patient tomorrow. 2. Electrolytes -sodium and potassium within normal range. 3. Acid/Base Status -non-anion gap mild metabolic acidosis, bicarb 21. No kena rns. 4. Mineral and Bone -calcium 8.7 mg/dL, hyperphosphatemia from 10/18. Please co ntinue sevelamer 800 mg 3 times daily with food. 5. Volume Status -euvolemic. 6. Hematologic -anemia Hb 10.6 within CKD goal. No concerns. 7. Dietary Recommendations -renal diet. 8. Medications - Please dose all medication for an estimated GFR less than 10. A void nephrotoxic drugs and iv contrast. 9. Blood Pressure - Reviewed; stable. Continue to monitor blood pressure. Case discussed with Dr. Stone. SOCO Wray Fellow - Division of Nephrology [facility] Associated attestation - Shree Stone MD - 10/19/2020 4:36 PM EST Please see Resident/Fellow's notes for details. I have interviewed and examined the patient and confirmed the history, examination, assessment and plan as noted in the Resident/Fellow's note with changes/addition/deletion if any as noted be low. I have not edited the note. Labs obtained/reviewed. Decision making is of moderate complexity. * Mireille Shine, OT - 10/19/2020 12:02 PM EST Occupational Therapy Acute Care Encounter Note Medical Diagnosis: Acute on chronic right SDH (non traumatic), in setting of warfarin use Rehabilitation Precautions/Restrictions: Moderate Fall Risk, DNR/DNI, OOB to chair, Swallowing/aspiration precautions Goal Review Visit Number: 2 SUBJECTIVE Patient Report: "I think I am going home today." Pain: Patient has no complaints of pain currently. Pain Medication Today: yes. OBJECTIVE General Observation: Pt was sitting up in bedside chair, eating lunch. No chair alarm noted at start of session. Skin Integrity Screen: +mepilex to buttocks Vital Signs: Stable. Blood Pressure: 120/78 mm Hg Heart Rate: 82 beats per minute Respiratory Rate: 19 breaths/min Oxygen Saturation: 100 % Self Care/Home Management: Dressing - lower body: Modified [place]. Splinting: No splint issued today. Cognitive Test Score: Not tested. Outcome Measures: [facility] AM-PAC "6 Clicks" Daily Activity Inpatient Short Form: Putting on and taking off regular lower body clothing: No assistance (4) Bathing (including washing, rinsing, and drying): A little assistance (3) Toileting (including use of toilet, bedpan, or urinal): A little assistance (3) Putting on and taking off regular upper body clothing: No assistance (4) Taking care of personal grooming such as brushing teeth: No assistance (4) Eating meals: No assistance (4) Raw Score: 22 /24 Interventions: Self Care/Home Management: Pt was sitting up in bedside chair, NAD, eating lunch but agreeable to therapy. Pt was educated on possible durable medical equipment needs at home however she reports that she "has all the discussed equipment at home already." Pt educated on safety within the home ie: night light for night time use and clutter free pathways. Pt was facilitated in ADL's ie: LE dressing needing no physical assist only extended time for task completion. Therapeutic Activities: Pt was facilitated in functional transfers ie: sit to stand transfers in prep for toilet transfers needing only verbal cues for safety and use of a rolling walker. Pt reports history of R foot drop for which she has an AFO at home that she "can wear." Pt reports at home she is mostly "bear foot." Pt was facilitated in functional mobility around her room in prep for ADL's as well as out in the hallway, did not need any verbal cues to locate her room on the return trip. Pt was noted to drag her R foot and needed verbal cues to clear her toes as she did not have the AFO with her. Pt reports she will have 24/ supervision at home and assist with all ADL's/IADL's. Pt was educated on role of OT, plan of care and discharge planning. Education: Mode of education provided: Demonstration. Explanation. Audience: Patient. Education Provided: plan of care, discharge planning, role of OT . Response: Verbalized understanding. ASSESSMENT Response to Visit: The session was tolerated well. Call gary was in patient's reach at end of session. Pain: Patient has no complaints of pain currently. PLAN Treatment Frequency, Duration and Interventions: Restorative Occupational Therapy recommended for 5x/week for 2 weeks Treatment is to include: Self Care/Home Management. Therapeutic Exercise. Therapeutic Activity. Recommended Occupational Therapy Follow Up: Upon acute care discharge, the following is currently recommended: Assistance at home from family with ADL's and IADL's as needed. Visit Number: Today's visit is number 2 Program: Neuro (Therapist may be reached on Neovacs) SESSION: Duration: 23 CHARGES: - ORDER - Occupational Therapy Treatment 1 Units 53733 - CHARGE - OT THEREAPEUTIC ACT 15 MIN 1 Units 89014 - CHARGE - OT SELF CARE ADL TRAIN-15 MIN 1 Units - NEURO VISIT 1 Units Total treatment minutes: 23.00 Minutes Electronically Signed by: Mireille Shine OTR, 10/19/2020 12:09:50 PM * Rosie Baca CCC-STRADDLE BUG DRIVER - 10/19/2020 9:04 AM EST Speech Language Pathology Acute Care - Language Cognitive Treatment Note Admitting Diagnosis: Transfer from OSH for evaluation of acute on chronic right SDH in setting of warfarin use, rule out acute ischemic stroke Pertinent Medications and Allergies: Significant rehabilitation considerations: Allergies: Vancomycin Rehabilitation Precautions/Restrictions: Moderate Fall Risk, DNR/DNI, OOB to chair, Swallowing/aspiration precautions Goal Review Visit Number: 2 SUBJECTIVE Patient Report: "Tired." Pain: Patient has no complaints of pain currently. Pain Medication Today: no. OBJECTIVE General Observation: Patient received reclined in bed. Sleeping at the onset of this session. Easy to arouse and pleasant. Bed alarm was on at start of session. Test Administered: Informal Measures: Cognitive Capacity Screening Examination: (7 items for serial subtraction not included as patient stated "Forget about it." Vision: Patient wears glasses for reading tasks. Hearing: Patient does not require a hearing aid for hearing. Reading Comprehension: Reading comprehension was not assessed at this time secondary to: Not a direct focus of this assessment. Written Expression: Written Expression was not assessed at this time secondary to: Not a direct focus of this assessment. Dysarthria: Patient does not exhibit a dysarthria. Verbal Apraxia: Patient does not exhibit a verbal apraxia. Oral Apraxia: Patient does not exhibit an oral apraxia. Orientation: Oriented to person, place, time and situation. Cognition: Attention: 100% accuracy for repetition of 3-4 digit sequences forward. Patient was able to repeat 3-4 digit sequences backward. Working Memory: 50% accuracy for repetition/recall of 3-4 digit sequences following a cognitive distraction such as counting 1-10. Patient presented difficulty with recall of 4-digit sequences at this time. Thought Organization: Patient was able to repeat the days/week backward without cues/prompts. Calculations: 66% accuracy for solving mental math calculations for addition and subtraction. Increased accuracy to 100% with verbal cues for attention as patient multiplied initial response vs. adding. Immediate Memory: 100% accuracy for immediate recall and repetition of 4-word list. Short Term Memory: 0% accuracy for recall of 4-word list following a 4-minute delay. Positive response to category prompts in 3/4 instances. Attention: Auditory Attention: Decreased. Visual Attention: Not Tested. Auditory Comprehension: Patient's auditory comprehension was evaluated and is judged to be within functional limits. Verbal Expression: No deficits evident informally, but did not formally assess. Interventions: Speech Lang Treatment: Targeted patient education with regard to current cognitive linguistic status. Reviewed deficits in attention and memory and recommendations of home care vs. outpatient therapies with emphasis on cognitive functioning including attention, memory, and problem solving. Discussed importance of assistance with or review of finances by daughter upon discharge home. Provided functional barriers to discharge home this date as patient is motivated to go home but reports that based on MRIs there is still bleeding in her brain. Patient reports no functional deficits with acceptance/tolerance of current regular/thin liquid diet at this time. Clinician reviewed continued and expanded use of functional memory strategies including calendars and personal cell phone with alerts. Education: Mode of education provided: Explanation. Audience: Patient. Education Provided: Brain injury education. Cognitive functioning. Diet texture recommendations. Safety. Strategies for adapting activities. Plan of care. Role of speech language pathologist. Response: Verbalized understanding. Needs practice/reinforcement. ASSESSMENT Response to Visit: The session was tolerated well. Patient pleasant and receptive to clinician directed tasks for the duration of this session. Patient motivated to discharge home as soon as possible. She was receptive to barriers to discharge as discussed by this clinician. Bed alarm was on at end of session. Call gary was in patient's reach at end of session. Pain: Patient has no complaints of pain currently. Goal Review: Short Term Goals: 2. Patient will increase working memory, mental manipulation and delayed recall for 4-units of information in 8/10 instances in 1 week with use of compensatory strategies as needed. Status: New Goal. 3. Patient will increase sustained and selective attention for clinician directed tasks in 8/10 instances in 1 week. Status: New Goal. 4. Patient will increase problem solving for bill paying as well as time, money, and general math word problems in 8/10 instances in 1 week. Status: New Goal. Changes in or Continuation of Plan of Care: Patient will benefit from continued therapy to achieve planned goals. PLAN Treatment Frequency, Duration and Interventions: Restorative Speech/Language Pathology services recommended for 2x a week for 2 weeks Intervention Considerations/Suggestions for Future Therapy Sessions: Ensure tolerance to regular solids and thin liquids. Target attention, memory, and problem solving. Evaluate bill paying. Provide patient education with strategy training. Equipment Provided: None issued this visit. Equipment Recommended: None. Recommended Speech Therapy Follow Up: Upon acute care discharge, the following is currently recommended: Home STRADDLE BUG DRIVER vs. Outpatient STRADDLE BUG DRIVER pending medical team recommendations. 24 hour supervision. Recommended Consults: None currently. Development of Plan of Care: Participants included: Patient. Visit Number: Today's visit is number 2 Program: Stroke (Therapist may be reached on Neovacs) SESSION: Duration: 27 CHARGES: - ORDER - Speech Treatment 1 Units 60325 - CHARGE - SPEECH TX INDIVIDUAL 1 Units - STROKE VISIT 1 Units 55941 - CHARGE-ASSESS SP SOUND PRD/REC/EXP LUIS DANIEL 1 Units Total treatment minutes: 27.00 Minutes Electronically Signed by: Rosie GARCIA-STRADDLE BUG DRIVER, CBIS, 10/19/2020 9:28:37 AM * Ariel Schroeder MD - 10/19/2020 8:23 AM EST Brief Neurosurgery Progress Note Care of patient discussed with attending. Patient neurologically stable. Repeat scan shows stable bilateral SDH. No neurosurgical intervention warranted, neuros urgery will sign off. Patient will follow up with neurosurgery clinic in 2 weeks with repeat CTH. Please hold anticoagulation until patient seen in clinic. Ariel Schroeder MD (Tony) Neurosurgery PGY-1 * Shree Stone MD - 10/18/2020 2:00 PM EST Inpatient Dialysis Note Length of stay: 0 Reason for Consult: ESRD/Hemodialysis Active Problems: SDH (subdural hematoma) Attending Dialysis Note: Patient seen on hemodialysis. Tolerating treatment but had low BP and needed flu id boluses. Continue 3x/week hemodailysis treatment. MEDICATIONS. Current Facility-Administered Medications Medication Dose Route Frequency Provider Last Rate Last Admin heparin (porcine) 1000 units/mL injection 2,000 Units 2,000 Units Intrac atheter PRN SOCO Wray 4,000 Units at 10/18/20 1238 levothyroxine (SYNTHROID) tablet 75 mcg 75 mcg Oral Daily SOCO Reid 75 mcg at 10/18/20 0652 [START ON 10/19/2020] lidocaine (LIDODERM) 5 % patch 1 patch 1 patch Tra nsdermal Daily Pedro Bustos MD LORazepam (ATIVAN) tablet 1 mg 1 mg Oral Once Pedro Bustos MD sodium chloride 0.9 % bolus 500 mL 500 mL Intravenous Once Pedro blankenship MD sodium chloride 0.9 % bolus 500 mL 500 mL Intravenous Once Pedro blankenship MD VITALS. Vitals: 10/18/20 1203 10/18/20 1215 10/18/20 1220 10/18/20 1224 BP: 103/49 105/46 106/54 104/48 Pulse: 69 69 69 75 Resp: 18 15 16 (!) 28 Temp: 36.6 C (97.9 F) SpO2: LABS. Recent Labs Lab 10/18/20 0426 NA 136 K 4.8 CL 97* BICARBONATE 25 BUN 36* CREATININE 6.68* GLUCOSE 87 CALCIUM 8.8 ALBUMIN 4.0 Recent Labs Lab 10/18/20 0426 HCT 30.0* HGB 10.4* MCH 35.5* MCHC 34.6 MCV 102.7* PLT 163 RDW 16.5* WBC 4.7 Shree Stone MD Nephrology attending * Debbie Jeffries, PT - 10/18/2020 1:55 PM EST Physical Therapy Acute Care Missed Visit Note Location: bedside Attempted to visit patient for therapy, but was unable for the following reasons: Pt being attached to spot EEG upon arrival, will reattempt later today as patient is avaible and schedule permits. (Therapist may be reached on Vocera) SESSION: Duration: 0 CHARGES: Total treatment minutes: Minutes Electronically Signed by: Debbie Jeffries, PT, 10/18/2020 2:06:35 PM * Micaela Tipton, RD - 10/18/2020 12:37 PM EST Department of Food and Nutrition Nutritional Evaluation and Care Plan Basic Evaluation Patient is a 75 y.o. female, admitted on with a diagnosis of SDH Past Medical History: Past Medical History: Diagnosis Date Chronic kidney disease Crohn's disease Ileostomy in place Melanoma MRSA (methicillin resistant staph aureus) culture positive 2006 RIGHT HAND, AFTER THE BUG BITE Multiple myeloma 2008 s/p bone marrow transplant Skin cancer Past Surgical History: Past Surgical History: Procedure Laterality Date APPENDECTOMY 1960 BASAL CELL CARCINOMA EXCISION Left FOREHEAD COLONOSCOPY DIALYSIS FISTULA CREATION Left 2009 ILEOSTOMY 1981 LIMBAL STEM CELL TRANSPLANT 04/2009 SKIN SURGERY Right 2010 MELANOMA RIGHT ARM SPINE SURGERY 2010 VERTEBRA FRACTURE- CEMENT PLACEMENT Home Medications: Prior to Admission medications Medication Sig Start Date End Date Taking? Authorizing Provider acetaminophen (TYLENOL) 500 MG tablet Take 500 mg by mouth as needed for Pain Historical Provider, Cholecalciferol (VITAMIN D-3 PO) Take 1 tablet by mouth every morning Histor ical Provider, cycloSPORINE (RESTASIS) 0.05 % ophthalmic emulsion Place 1 drop into both eyes e very 12 (twelve) hours. Historical Provider, dexamethasone (DECADRON) 4 MG tablet TAKE TEN TABLETS BY MOUTH EVERY DAY ON DAYS 1 8 15 22 EACH CYCLE/ TAKES 3tab with meals on days 1,8,15,22 12/06/18 Histo rical Provider, diphenhydrAMINE (BENADRYL) 25 mg capsule Take 25 mg by mouth as needed for Itch ing (PRIOR DIALYSYS) Historical Provider, fish oil-omega-3 fatty acids 1000 MG capsule Take 2 g by mouth daily with lunch Historical Provider, ixazomib (NINLARO) capsule Take 3 mg by mouth Indications: 1 cap on day 1,8,15 2 hrs after meal Historical Provider, levothyroxine (SYNTHROID, LEVOTHROID) 50 MCG tablet Take 50 mcg by mouth every m orning Historical Provider, loperamide (IMODIUM) 2 MG capsule Take 2 mg by mouth as needed for Diarrhea Historical Provider, Multiple Vitamin (MULTIVITAMIN) capsule Take 1 capsule by mouth daily. Histor ical Provider, oxycodone-acetaminophen (PERCOCET) 5-325 MG per tablet Take 1 tablet by mouth ev radha 4 (four) hours as needed for Pain Historical Provider, pancrelipase, Cvi-Sduc-Ffkm, (CREON) 80636 units CPEP capsule Take 2 capsules by mouth Three times daily with meals 1 capsule with snack 06/16/19 Basia Mejia MD sevelamer (RENVELA) 800 MG tablet Take 1,600 mg by mouth 3 (three) times daily w ith meals. Historical Provider, warfarin (COUMADIN) 5 MG tablet TAKE ONE AND ONE HALF TABLETS BY MOUTH EVERY DAY / EVENING 02/08/19 Historical Provider, Multidisciplinary Problems: Active Problems: SDH (subdural hematoma) Current Diet/Tube Feed/TPN Order: Diet Adult; Modified; Mineral Modification (P, K), Mineral Modification (Na, Iodine); 2 gm Na; 2 gm K (Low Potassium) Active, Scheduled Medications: Current Facility-Administered Medications Medication Dose Route Frequency Provider Last Rate Last Admin heparin (porcine) 1000 units/mL injection 2,000 Units 2,000 Units Intrac atheter PRN SOCO Wray levothyroxine (SYNTHROID) tablet 75 mcg 75 mcg Oral Daily SOCO Reid 75 mcg at 10/18/20 0652 [START ON 10/19/2020] lidocaine (LIDODERM) 5 % patch 1 patch 1 patch Tra nsdermal Daily Pedro Bustos MD sodium chloride 0.9 % bolus 500 mL 500 mL Intravenous Once Pedro blankenship MD Allergies: Vancomycin Cultural/Mandaen/Ethnic food preferences: Unknown Recent Labs Lab 10/18/20 0426 NA 136 CL 97* BUN 36* GLUCOSE 87 K 4.8 BICARBONATE 25 CREATININE 6.68* CALCIUM 8.8 ALBUMIN 4.0 Interview: Chart reviewed for consult from team re: nutrition counseling for str aleida, and pt with BMI <19 based on lowest wt this admission. Hx of multiple myeloma s/p bone marrow txp, hypothyroidism, Crohn's disease s/p colectomy and colostomy, ESRD on HD. As pt admitted with acute on chronic SDH, no stroke, will d/c consult. Pt is A&O x 4, on NC, per flowsheets. Pt is on HD in-house, last done on 10/18. Attempted to speak with pt via room phone however pt did not answer after 1 karen te. Pt passed STRADDLE BUG DRIVER eval on 10/18 for regular diet, is currently ordered for a 2 g m Na+, 2 gm K+ diet. No intake data documented yet per flowsheets. Will continue to monitor for intake adequacy. For now, pt will benefit from daily Ensure+ to support moderate wt repletion until intake can be fully assessed. Can switch to Nepro PRN if K+ goes high. Last BM AUDIT CLERK. Only 1 K+ level taken so far, was borderline high @ 4.8. Na+ and os molality WNL. Pt is only net positive by ~550 ml so far. No phos level available . Learning or discharge needs identified: TBD Height: 166 cm Weight: 55.2 kg (121 lb 11.1 oz) Weight Method: Body Mass Index: 18.54 - based on lowest wt 51.1 kg IBW Range (kg): 51.1 kg (low est wt, BMI <19) Weight change: No wt hx per chart AUDIT CLERK. Obesity or underweight? Yes BMI <19 Underweight Malnutrition Identified: Unable to fully assess Malnutrition Criteria: Unable to fully assess Skin: Intact Nutrition Obstacles: Metabolic Stress Energy/Protein Requirement based on: 51.1 kg (lowest wt since admit,) BMI <19, ESRD on HD, non-traumatic SDH, age Current Protein Needs: 1.2-1.5 g per kg body wt. = 61-77 g Current Energy Needs: 35-40 kcal per kg body wt. = 0884-5274 kcal Estimated Fluid Needs: Per team No intake/output data recorded. I/O this shift: In: 1100 [Other:1100] Out: 550 [Urine:150; Other:400] Nutrition Diagnostic Statement(s): Patient is at nutritional risk. Current risk is Moderate. Patient is found to have increased nutrient needs related to altered metabolism as evidenced by ESRD on HD, non-traumatic SDH. Nutrition Intervention(s): - Agree with 2 gm K+ restriction for now, consider liberalizing 2 gm Na+ as flui d status looks OK currently and pt underweight - Encourage good PO intake - Obtain phos level - Encourage daily Ensure+ to support wt repletion - May switch to Nepro if K+ high Nutrition Goal(s)/Outcome(s): Patient will tolerate good PO intake >/=75% prior to d/c Recommendations: - Agree with 2 gm K+ restriction for now, consider liberalizing 2 gm Na+ as flui d status looks OK currently and pt underweight - Encourage good PO intake - Obtain phos level - Encourage daily Ensure+ to support wt repletion - May switch to Nepro if K+ high Monitoring/Evaluation: Labs, Pt care rounds, Weight, I&O and Meds * Margaret Matos OT - 10/18/2020 11:28 AM EST Occupational Therapy Acute Care Missed Visit Note Location: Bedside. Attempted to visit patient for therapy, but was unable for the following reasons: Treatment not completed secondary to scheduling conflict. Pt having dialysis at bedside. Will reattempt later today as appropriate, schedule permits and patient tolerates (Therapist may be reached on Vocera) SESSION: Duration: 0 CHARGES: - ORDER - OCCUPATIONAL THERAPY CONSULT 1 Units - CHARGE-IP OT SCHEDULING CONFLICT 1 Units Total treatment minutes: 0.00 Minutes Electronically Signed by: ISIAH Valdez/Jocelynn, 10/18/2020 11:29:16 AM * Grabiel Scanlon RN - 10/18/2020 10:47 AM EST HEMODIALYSIS ASSESSMENT AND TREATMENT FLOW RECORD PATIENT INFORMATION: DIAGNOSIS: <principal problem not specified> : 1945 Allergies Allergen Reactions Vancomycin Itching and Rash CHRONIC UNIT: [facility] TREATMENT AREA (ACUTE ROOM, BEDSIDE, ICUICCU, ER): bedside 9E-R5 CODE STATUS VERIFIED (YES/NO): DNR/DNI INFORMED CONSENT VERIFIED (YES/NO): YES BLOOD CONSENT VERIFIED (YES/NO/NA): NA ISOLATION PRECAUTIONS (MRSA,VRE,C-DIFF,TB,NA): NA DIET: NPOW/TX MOBILITY: RESTING IN BED FOR TX EDUCATION: EDUCATED: patient KNOWLEDGE BASIS (NONE, MINIMAL, SUBSTANTIAL, INAPPROPRIATE): SUBSTANTIAL EDUCATED ON (Access Care S&S of infection, Fluid Managemnt, K+, Phosphorus, Medications, Tx Options, Tx Adequacy, Transplant, Diet, Procedure): HD PROCEDRUAL EDUCATION METHOD: Verbal LABS: Lab Results Component Value Date CALCIUM 8.8 10/18/2020 Lab Results Component Value Date WBC 4.7 10/18/2020 HGB 10.4 (L) 10/18/2020 HCT 30.0 (L) 10/18/2020 MCV 102.7 (H) 10/18/2020 PLT 163 10/18/2020 Lab Results Component Value Date CREATININE 6.68 (H) 10/18/2020 BUN 36 (H) 10/18/2020 NA 136 10/18/2020 K 4.8 10/18/2020 CL 97 (L) 10/18/2020 HEP B SAG (NEGATIVE, POSITIVE, UNK): negative DATE: 10/16/2020 HEP B SAB (SUSCEPTIBLE IMMUNE, UNK): immune DATE:11/15/2019 RESULT: 14 SOURCE : transfer summary HEP B core AB (if available): negative DATE:05/10/2019 REPORT (First Initial/Last Name/Title) Primary Nurse Report-Pre Dialysis: Ra RN CATHETER ACCESS FIRST USE XRAY LOCATION VERIFIED (YES/NO/NA): NA Type (Tunnel/Non Tunnel/NA): Tunnel Patent (Yes/No/NA): yES Location:Rt IJ Aseptic Prep On/Off Site Care (Yes/No/NA): Yes Dressing Changed (Yes/No/NA): yes Due date:10/25/2020 Access Problem (Yes/No/NA): NA If Access problem was MD notified (Yes/No/NA): NA GRAFT/FISTULA ACCESS Type (AVG/AVF/Buttonhole, NA): AVF Patent (Yes/No/NA): yes Location: Rt arm PRE DIALYSIS ASSESSMENT LUNGS: lt side clear, Rt side diminished ESPIRATORY: No problem noted, O2: 1l/min NC CARDIAC: No problem noted CARDIAC RHYTHM: Normal sinus rhythm EDEMA: none SKIN: normal L.O.C: alert ORIENTATION: place, [facility] GI/ABDOMEN: Soft, nondistended and no rebound or guarding PAIN: denied ADDITIONAL ASSESSMENT (IF APPLICABLE): NA HEMODIALYSIS MACHINE SAFETY CHECKS: 10/18/20907 Type of Access Type of Access Catheter Catheter Access Tunneled Catheter Assessment Patent;No Sign and Symptoms of Infection Arterial Line Volume 1.9 mL Venous Line Volume 1.9 mL Pre-Hemodialysis Treatment Weight 54.1 kg (119 lb 4.3 oz) Machine # I Reverse Osmosis (RO) # 6 Alarms Verified Passed Time 0908 pH 7.4 Machine Temperature 36.6 C (97.9 F) Extracorporeal Tested Yes Dialyzer [id number] Meter Conductivity 13.4 Machine Conductivity 13.4 Standard Solution Conductivity 14 Sodium Modeling NA Physician Order Verified Yes Reverse Osmosis Machine Log Completed Yes Chlorine Residual Negative Total Chlorine Test Negative Items Checked Prior to Treatment Consents;Code Status;Labs Results;All connectio ns Secured;Saline line double clamped;Venous Parameters Set;Arterial Parameters Set;Air Foam Dectector Engaged;Prime given Comments BEDSIDE 9E-R5 Hemodialysis Catheter Right Intra-jugular No Placement Date or Time found. Hemodialysis Catheter : Tunnelled Orientati on: Right Access Location: Intra-jugular Catheter Condition Intact?: Yes Site Assessment Clean;Dry;Intact Status Accessed Line Care Caps changed;Connections checked and tightened;Flushed per protocol Dressing Occlusive Dressing Intervention New dressing Dressing Status Dry;Intact;Clean Dressing Change Completed 10/18/20 Dressing Change Due 10/25/20 Site Condition No complications Arterial Volume (Red) 1.9 mL Venous Volume (Blue) 1.9 mL Hemodialysis Fistula/Graft Arteriovenous fistula Right Arm No Placement Date or Time found. Access Type: Arteriovenous fistula Orientati on: Right Access Location: Arm Site Assessment Clean;Dry;Intact AV Fistula Thrill Positive AV Fistula Bruit Positive Status Other (Comment) (Not accessed) Site Condition No complications Dialysis Education Education Given To? Patient Knowledge Basis Substantial Educated on: Other: (See Comment) (HD procedural) Teaching Tools Explain TIME OUT COMPLETED (YES/NO): yes TREATMENT INITIATION: 919 Dialysis Bath (Specify K/Ca): 2k2.5ca bath Prescribed Treatment Time (minutes): 240-->180 TREATMENT INITIATION NOTE (Include access type used, treatment duration prescri bed, any complications before tx..): pt resting calm in bed withh 1l/min nc, cori rt and oriented, vss. Denied pain or sob and accessed Rt IJ which aspirated and flushed well w/o probl em dressing changed, Rt upper avf thrill/bruit+/+. HD started via Rt IJ, R-R , Per Dr Stone order changed : duration for 3hrs(opd: 3hrs) and goal even, 2k2.5c a bath and revaclear 300 dialyzer setting verified, Will monitor. INTRA DIALYSIS FLOW SHEET 10/18/20 0908 10/18/20 0920 10/18/20 0930 During Hemodialysis Treatment BP 122/62 133/58 132/57 Pulse 73 68 71 Resp 12 (!) 21 (!) 23 Temp 36.8 C (98.2 F) -- -- Blood Flow Rate (ml/min) -- 150 ml/min 400 ml/min Dialysate Flow Rate (mL/min) -- 600 ml/min 600 ml/min Arterial Pressure (mmHg) -- -30 mmHg -160 mmHg Venous Pressure (mmHg) -- 10 150 Transmembrane Pressure (mmHg) -- 35 mmHg 0 mmHg Ultrafiltration Rate (kg/hr) -- 0.13 kg/hr 0.13 kg/hr Blood/IVs/NS (mL) -- 200 mL 0 mL Machine Heparin Given (units) -- 0 units 0 units Fluid Removed (mL) -- 0 mL 40 mL Access -- Good Good Blood Pump Running -- Yes Yes Arteriovenous Lines Secure -- Yes Yes Treatment Initiation - with Dialysis Precautions -- All Connections Secured;S ale Line Double Clamped;Venous Parameters Set;Arterial Parameters Set;Air Foam Detector Engaged;Prime Given (Comments) All Connections Secured;Saline Line Chuck ble Clamped Comments pre tx tx initiated resting, 1l/min NC with sat 97% 10/18/20 0945 10/18/20 1000 10/18/20 1015 During Hemodialysis Treatment BP 108/69 107/58 106/56 Pulse 72 75 73 Resp (!) 20 (!) 20 (!) 19 Temp -- 36.9 C (98.4 F) -- Blood Flow Rate (ml/min) 400 ml/min 400 ml/min 400 ml/min Dialysate Flow Rate (mL/min) 600 ml/min 600 ml/min 600 ml/min Arterial Pressure (mmHg) -170 mmHg -160 mmHg -160 mmHg Venous Pressure (mmHg) 140 140 140 Transmembrane Pressure (mmHg) 0 mmHg 0 mmHg 0 mmHg Ultrafiltration Rate (kg/hr) 0.13 kg/hr 0.13 kg/hr 0.13 kg/hr Blood/IVs/NS (mL) 0 mL 0 mL 0 mL Machine Heparin Given (units) 0 units 0 units 0 units Fluid Removed (mL) 60 mL 90 mL 130 mL Access Good Good Good Blood Pump Running Yes Yes Yes Arteriovenous Lines Secure Yes Yes Yes Treatment Initiation - with Dialysis Precautions All Connections Secured;Saline Line Double Clamped All Connections Secured All Connections Secured Comments pt awake, sat 99% Resting eyes closed 10/18/20 1030 10/18/20 1045 10/18/20 1100 During Hemodialysis Treatment BP 95/53 (!) 89/48 81/53 Pulse 71 75 76 Resp 17 (!) 21 14 Temp -- -- -- Blood Flow Rate (ml/min) 400 ml/min 400 ml/min 300 ml/min Dialysate Flow Rate (mL/min) 600 ml/min 600 ml/min 600 ml/min Arterial Pressure (mmHg) -170 mmHg -170 mmHg -170 mmHg Venous Pressure (mmHg) 140 140 140 Transmembrane Pressure (mmHg) 0 mmHg 0 mmHg 0 mmHg Ultrafiltration Rate (kg/hr) 0.13 kg/hr 0.13 kg/hr 0.1 kg/hr Blood/IVs/NS (mL) 0 mL 0 mL 200 mL Machine Heparin Given (units) 0 units 0 units 0 units Fluid Removed (mL) 170 mL 190 mL 220 mL Access Good Good Good Blood Pump Running Yes Yes Yes Arteriovenous Lines Secure Yes Yes Yes Treatment Initiation - with Dialysis Precautions All Connections Secured All Co nnections Secured All Connections Secured Comments resting eyes clcosed, sat 100% d/o tired. bolus given 10/18/20 1105 10/18/20 1108 10/18/20 1115 During Hemodialysis Treatment BP 97/48 97/48 100/50 Pulse 70 68 66 Resp (!) 20 (!) 20 17 Temp -- -- -- Blood Flow Rate (ml/min) -- 350 ml/min 350 ml/min Dialysate Flow Rate (mL/min) -- 600 ml/min 600 ml/min Arterial Pressure (mmHg) -- -120 mmHg -130 mmHg Venous Pressure (mmHg) -- 100 110 Transmembrane Pressure (mmHg) -- -20 mmHg 0 mmHg Ultrafiltration Rate (kg/hr) -- 0.1 kg/hr 0.1 kg/hr Blood/IVs/NS (mL) -- 0 mL 0 mL Machine Heparin Given (units) -- 0 units 0 units Fluid Removed (mL) -- -- 260 mL Access -- -- Good Blood Pump Running -- -- Yes Arteriovenous Lines Secure -- -- Yes Treatment Initiation - with Dialysis Precautions -- -- All Connections Secu red Comments bp retake -- 1l/min nc, sat 100% 10/18/20 1126 10/18/20 1130 10/18/20 1137 During Hemodialysis Treatment BP 88/52 114/50 -- Pulse 71 73 73 Resp 18 (!) 19 14 Temp -- -- -- Blood Flow Rate (ml/min) 200 ml/min 370 ml/min -- Dialysate Flow Rate (mL/min) 600 ml/min 600 ml/min -- Arterial Pressure (mmHg) -- -130 mmHg -- Venous Pressure (mmHg) -- 110 -- Transmembrane Pressure (mmHg) -- 0 mmHg -- Ultrafiltration Rate (kg/hr) -- 0.1 kg/hr -- Blood/IVs/NS (mL) 500 mL 0 mL -- Machine Heparin Given (units) -- 0 units -- Fluid Removed (mL) -- 280 mL -- Access -- Good -- Blood Pump Running -- Yes -- Arteriovenous Lines Secure -- Yes -- Treatment Initiation - with Dialysis Precautions -- All Connections Secured -- Comments c/o neck pain sudden(was ssleeping), bolus 500ml given per Dr Donovan. Dedra feng at bedside oxygen stopped per team. stated neck got better. 10/18/20 1145 10/18/20 1200 10/18/20 1203 During Hemodialysis Treatment BP 102/47 (!) 88/66 103/49 Pulse 68 70 69 Resp (!) 20 (!) 22 18 Temp -- -- -- Blood Flow Rate (ml/min) 370 ml/min 370 ml/min -- Dialysate Flow Rate (mL/min) 600 ml/min 600 ml/min -- Arterial Pressure (mmHg) -130 mmHg -140 mmHg -- Venous Pressure (mmHg) 110 120 -- Transmembrane Pressure (mmHg) 0 mmHg 0 mmHg -- Ultrafiltration Rate (kg/hr) 0.1 kg/hr 0.1 kg/hr -- Blood/IVs/NS (mL) 0 mL 0 mL -- Machine Heparin Given (units) 0 units 0 units -- Fluid Removed (mL) 320 mL 350 mL -- Access Good Good -- Blood Pump Running Yes Yes -- Arteriovenous Lines Secure Yes Yes -- Treatment Initiation - with Dialysis Precautions All Connections Secured All Co nnections Secured -- Comments eyes open and resting, sat 98 in room air awake retake.no distress at t his point 10/18/20 0908 10/18/20 0920 10/18/20 0930 During Hemodialysis Treatment BP 122/62 133/58 132/57 Pulse 73 68 71 Resp 12 (!) 21 (!) 23 Temp 36.8 C (98.2 F) -- -- Blood Flow Rate (ml/min) -- 150 ml/min 400 ml/min Dialysate Flow Rate (mL/min) -- 600 ml/min 600 ml/min Arterial Pressure (mmHg) -- -30 mmHg -160 mmHg Venous Pressure (mmHg) -- 10 150 Transmembrane Pressure (mmHg) -- 35 mmHg 0 mmHg Ultrafiltration Rate (kg/hr) -- 0.13 kg/hr 0.13 kg/hr Blood/IVs/NS (mL) -- 200 mL 0 mL Machine Heparin Given (units) -- 0 units 0 units Fluid Removed (mL) -- 0 mL 40 mL Access -- Good Good Blood Pump Running -- Yes Yes Arteriovenous Lines Secure -- Yes Yes Treatment Initiation - with Dialysis Precautions -- All Connections Secured;S ale Line Double Clamped;Venous Parameters Set;Arterial Parameters Set;Air Foam Detector Engaged;Prime Given (Comments) All Connections Secured;Saline Line Chuck ble Clamped Comments pre tx tx initiated resting, 1l/min NC with sat 97% 10/18/20 0945 10/18/20 1000 10/18/20 1015 During Hemodialysis Treatment BP 108/69 107/58 106/56 Pulse 72 75 73 Resp (!) 20 (!) 20 (!) 19 Temp -- 36.9 C (98.4 F) -- Blood Flow Rate (ml/min) 400 ml/min 400 ml/min 400 ml/min Dialysate Flow Rate (mL/min) 600 ml/min 600 ml/min 600 ml/min Arterial Pressure (mmHg) -170 mmHg -160 mmHg -160 mmHg Venous Pressure (mmHg) 140 140 140 Transmembrane Pressure (mmHg) 0 mmHg 0 mmHg 0 mmHg Ultrafiltration Rate (kg/hr) 0.13 kg/hr 0.13 kg/hr 0.13 kg/hr Blood/IVs/NS (mL) 0 mL 0 mL 0 mL Machine Heparin Given (units) 0 units 0 units 0 units Fluid Removed (mL) 60 mL 90 mL 130 mL Access Good Good Good Blood Pump Running Yes Yes Yes Arteriovenous Lines Secure Yes Yes Yes Treatment Initiation - with Dialysis Precautions All Connections Secured;Saline Line Double Clamped All Connections Secured All Connections Secured Comments pt awake, sat 99% Resting eyes closed 10/18/20 1030 10/18/20 1045 10/18/20 1100 During Hemodialysis Treatment BP 95/53 (!) 89/48 81/53 Pulse 71 75 76 Resp 17 (!) 21 14 Temp -- -- -- Blood Flow Rate (ml/min) 400 ml/min 400 ml/min 300 ml/min Dialysate Flow Rate (mL/min) 600 ml/min 600 ml/min 600 ml/min Arterial Pressure (mmHg) -170 mmHg -170 mmHg -170 mmHg Venous Pressure (mmHg) 140 140 140 Transmembrane Pressure (mmHg) 0 mmHg 0 mmHg 0 mmHg Ultrafiltration Rate (kg/hr) 0.13 kg/hr 0.13 kg/hr 0.1 kg/hr Blood/IVs/NS (mL) 0 mL 0 mL 200 mL Machine Heparin Given (units) 0 units 0 units 0 units Fluid Removed (mL) 170 mL 190 mL 220 mL Access Good Good Good Blood Pump Running Yes Yes Yes Arteriovenous Lines Secure Yes Yes Yes Treatment Initiation - with Dialysis Precautions All Connections Secured All Co nnections Secured All Connections Secured Comments resting eyes clcosed, sat 100% d/o tired. bolus given 10/18/20 1105 10/18/20 1108 10/18/20 1115 During Hemodialysis Treatment BP 97/48 97/48 100/50 Pulse 70 68 66 Resp (!) 20 (!) 20 17 Temp -- -- -- Blood Flow Rate (ml/min) -- 350 ml/min 350 ml/min Dialysate Flow Rate (mL/min) -- 600 ml/min 600 ml/min Arterial Pressure (mmHg) -- -120 mmHg -130 mmHg Venous Pressure (mmHg) -- 100 110 Transmembrane Pressure (mmHg) -- -20 mmHg 0 mmHg Ultrafiltration Rate (kg/hr) -- 0.1 kg/hr 0.1 kg/hr Blood/IVs/NS (mL) -- 0 mL 0 mL Machine Heparin Given (units) -- 0 units 0 units Fluid Removed (mL) -- -- 260 mL Access -- -- Good Blood Pump Running -- -- Yes Arteriovenous Lines Secure -- -- Yes Treatment Initiation - with Dialysis Precautions -- -- All Connections Secu red Comments bp retake -- 1l/min nc, sat 100% 10/18/20 1126 10/18/20 1130 10/18/20 1137 During Hemodialysis Treatment BP 88/52 114/50 -- Pulse 71 73 73 Resp 18 (!) 19 14 Temp -- -- -- Blood Flow Rate (ml/min) 200 ml/min 370 ml/min -- Dialysate Flow Rate (mL/min) 600 ml/min 600 ml/min -- Arterial Pressure (mmHg) -- -130 mmHg -- Venous Pressure (mmHg) -- 110 -- Transmembrane Pressure (mmHg) -- 0 mmHg -- Ultrafiltration Rate (kg/hr) -- 0.1 kg/hr -- Blood/IVs/NS (mL) 500 mL 0 mL -- Machine Heparin Given (units) -- 0 units -- Fluid Removed (mL) -- 280 mL -- Access -- Good -- Blood Pump Running -- Yes -- Arteriovenous Lines Secure -- Yes -- Treatment Initiation - with Dialysis Precautions -- All Connections Secured -- Comments c/o neck pain sudden(was ssleeping), bolus 500ml given per Dr Donovan. Dedra feng at bedside oxygen stopped per team. stated neck got better. 10/18/20 1145 10/18/20 1200 10/18/20 1203 During Hemodialysis Treatment BP 102/47 (!) 88/66 103/49 Pulse 68 70 69 Resp (!) 20 (!) 22 18 Temp -- -- -- Blood Flow Rate (ml/min) 370 ml/min 370 ml/min -- Dialysate Flow Rate (mL/min) 600 ml/min 600 ml/min -- Arterial Pressure (mmHg) -130 mmHg -140 mmHg -- Venous Pressure (mmHg) 110 120 -- Transmembrane Pressure (mmHg) 0 mmHg 0 mmHg -- Ultrafiltration Rate (kg/hr) 0.1 kg/hr 0.1 kg/hr -- Blood/IVs/NS (mL) 0 mL 0 mL -- Machine Heparin Given (units) 0 units 0 units -- Fluid Removed (mL) 320 mL 350 mL -- Access Good Good -- Blood Pump Running Yes Yes -- Arteriovenous Lines Secure Yes Yes -- Treatment Initiation - with Dialysis Precautions All Connections Secured All Co nnections Secured -- Comments eyes open and resting, sat 98 in room air awake retake.no distress at t his point 10/18/20 1215 10/18/20 1220 10/18/20 1224 During Hemodialysis Treatment BP 105/46 106/54 104/48 Pulse 69 69 75 Resp 15 16 (!) 28 Temp -- -- 36.6 C (97.9 F) Blood Flow Rate (ml/min) 370 ml/min 370 ml/min -- Dialysate Flow Rate (mL/min) 600 ml/min 600 ml/min -- Arterial Pressure (mmHg) -150 mmHg 150 mmHg -- Venous Pressure (mmHg) 120 120 -- Transmembrane Pressure (mmHg) 0 mmHg 0 mmHg -- Ultrafiltration Rate (kg/hr) 0.1 kg/hr 0.1 kg/hr -- Blood/IVs/NS (mL) 0 mL 200 mL -- Machine Heparin Given (units) 0 units 0 units -- Fluid Removed (mL) 390 mL 410 mL -- Access Good Good -- Blood Pump Running Yes Yes -- Arteriovenous Lines Secure Yes Yes -- Treatment Initiation - with Dialysis Precautions All Connections Secured -- -- Comments orineted, no distress tx end post tx POST TREATMENT 10/18/20 1220 Post-Hemodialysis Treatment Rinseback Volume (ml) 200 ml Total Liters Processed (L) 68 L Dialyzer Clearance Clear Duration of Treatment (minutes) 180 minutes Hemodialysis Intake (ml) 1100 ml Hemodialysis Output (ml) 400 ml Machine Heparin Given (units) 0 units Patient Response to Treatment hypotensive Arterial Line Volume 1.9 mL Venous Line Volume 1.9 mL Disinfection Log Completed Yes Weight 55.2 kg (121 lb 11.1 oz) MACHINE DISINFECTION LOG COMPLETED (YES/NO): yes POST HD ASSESSMENT: LUNGS: lt side clear, Rt side diminished ESPIRATORY: No problem noted, O2: 1l/min NC CARDIAC: No problem noted CARDIAC RHYTHM: Normal sinus rhythm EDEMA: none SKIN: normal L.O.C: alert ORIENTATION: place, city GI/ABDOMEN: Soft, nondistended and no rebound or guarding PAIN: denied ADDITIONAL ASSESSMENT (IF APPLICABLE): NA CVC HEPARIN /TPA BLOCK: HEPARIN Arterial: 1.9ml Venous: 1.9ml POST HEMODIALYSIS NOTE (actual treatment time, BFR & goal achived, complications and v/o, any meds given): completed full 3hr tx. bp hypotensive with symptomatic such as tired, slow response, neck Pain causing 200ml bolus and 500ml bolus per Dr. Joey Love at that point. BP responded with bolus and trended down however. Net uf: +700ml Report given to bedside RN REPORT (First Initial/Last Name/Title) Primary Nurse Report-Post Dialysis: Mckenna Stanford RN DOCUMENTED BY: Grabiel Scanlon RN * Debbie Jeffries PT - 10/18/2020 9:25 AM EST Physical Therapy Acute Care Missed Visit Note Location: bedside Attempted to visit patient for therapy, but was unable for the following reasons: Pt having dialysis at bedside. Will reattempt later today as appropriate, schedule permits and patient tolerates. (Therapist may be reached on Vocera) SESSION: Duration: 0 CHARGES: Total treatment minutes: Minutes Electronically Signed by: Debbie Jeffries PT, 10/18/2020 10:59:52 AM * Fer Pozo RN - 10/18/2020 5:54 AM EST If wound was present on admission, this documentation was sent to attending prov ider for cosignature. documented in this encounter H&P Notes * William Boyce MBBS - 10/18/2020 4:27 AM EST [facility] [place] [address] Subjective Date of Encounter: 10/18/2020 Length of stay: 0 History of Present Illness: Ms. Escobedo is a 75 year old female with PMH of ESRD (on HD M/W/F), Multiple Myel kevin (S/p bone marrow transplant), Crohn disease (S/p colectomy, and colostomy), Hypothyroidism. She presented initially to [facility] after she had righ t sided weakness and garbled speech started while she was on dialysis on Friday. Then her speech improved, and she diagnosed as TIA in setting of negative Brain MRI for acute ischemic stroke, however it showed bilateral chronic small SDH. S he continued on warfarin, then the repeated scan showed increased in the size if the right SDH (acute on chronic right SDH). The patient transferred to for f urther evaluation of the right acute on chronic SDH. On arrival to the , she is awake, alert, oriented x 3. Her exam (UE) is limite d due to shoulders pain due to history of rotator cuff tear. Although the right side is weaker than the left side, but still she can move all the extremities an tigravity. Review of Systems Pertinent items are noted in HPI. Active Problems: Patient Active Problem List Diagnosis Date Noted History of melanoma 07/11/2014 ESRD (end stage renal disease) 05/19/2013 Multiple myeloma 02/24/2013 Past Medical History: Past Medical History: Diagnosis Date Chronic kidney disease Crohn's disease Ileostomy in place Melanoma MRSA (methicillin resistant staph aureus) culture positive 2006 RIGHT HAND, AFTER THE BUG BITE Multiple myeloma 2009 s/p bone marrow transplant Skin cancer Past Surgical History: Past Surgical History: Procedure Laterality Date APPENDECTOMY 1960 BASAL CELL CARCINOMA EXCISION Left FOREHEAD COLONOSCOPY DIALYSIS FISTULA CREATION Left 2009 ILEOSTOMY 1981 LIMBAL STEM CELL TRANSPLANT 04/2009 SKIN SURGERY Right 2010 MELANOMA RIGHT ARM SPINE SURGERY 2010 VERTEBRA FRACTURE- CEMENT PLACEMENT Allergies: Allergies Allergen Reactions Vancomycin Itching and Rash Prior to Admission Medications: Medications Prior to Admission Medication Sig Dispense Refill Last Dose acetaminophen (TYLENOL) 500 MG tablet Take 500 mg by mouth as needed for Pain Cholecalciferol (VITAMIN D-3 PO) Take 1 tablet by mouth every morning cycloSPORINE (RESTASIS) 0.05 % ophthalmic emulsion Place 1 drop into both eyes every 12 (twelve) hours. dexamethasone (DECADRON) 4 MG tablet TAKE TEN TABLETS BY MOUTH EVERY DAY ON DAYS 1 8 15 22 EACH CYCLE/ TAKES 3tab with meals on days 1,8,15,22 11 diphenhydrAMINE (BENADRYL) 25 mg capsule Take 25 mg by mouth as needed f or Itching (PRIOR DIALYSYS) fish oil-omega-3 fatty acids 1000 MG capsule Take 2 g by mouth daily with lunch ixazomib (NINLARO) capsule Take 3 mg by mouth Indications: 1 cap on day 1 ,8,15 2 hrs after meal levothyroxine (SYNTHROID, LEVOTHROID) 50 MCG tablet Take 50 mcg by mouth every morning loperamide (IMODIUM) 2 MG capsule Take 2 mg by mouth as needed for Diarr hea Multiple Vitamin (MULTIVITAMIN) capsule Take 1 capsule by mouth daily. oxycodone-acetaminophen (PERCOCET) 5-325 MG per tablet Take 1 tablet by m outh every 4 (four) hours as needed for Pain pancrelipase, Yql-Yuja-Vpes, (CREON) 64975 units CPEP capsule Take 2 caps ules by mouth Three times daily with meals 1 capsule with snack 720 capsule 3 sevelamer (RENVELA) 800 MG tablet Take 1,600 mg by mouth 3 (three) times daily with meals. warfarin (COUMADIN) 5 MG tablet TAKE ONE AND ONE HALF TABLETS BY MOUTH EV RADHA DAY/ EVENING 2 Family History:No family history on file. Social History: Social History Tobacco Use Smoking status: Former Smoker Packs/day: 1.00 Years: 2.00 Pack years: 2.00 Types: Cigarettes Quit date: 1980 Years since quittin.9 Smokeless tobacco: Never Used Tobacco comment: quit 38 years ago Substance Use Topics Alcohol use: No Alcohol/week: 0.0 standard drinks Objective Vitals Temp: [36.5 C (97.7 F)] 36.5 C (97.7 F) Pulse: [76] 76 Resp: [15] 15 BP: (122)/(57) 122/57 SpO2: [99 %] 99 % O2 Therapy: Oxygen O2 Flow Rate (L/min): [1 L/min] 1 L/min Yoana Escobedo is critically ill due to the following: [employer] failure due to acute on chronic SDH, ESRD Current Medications: Reviewed. Physical Exam General Exam: General appearance - in no apparent distress Skin - Normal HEENT - Head: Normocephalic, no lesions, without obvious abnormality. Cardiovascular - normal sinus rhythm, no murmurs, heart sounds normal Respiratory - breath sounds clear and equal bilaterally Gastrointestinal - Bowel sounds present Extremities - extremities normal, atraumatic, no cyanosis or edema Lying supine on room air Awake, alert and oriented to person place and time Pupils equal and reactive to light, EOMI, Face symmetrical, V1-V3 intact, 5/5 sh oulder shrug, TML Upper Extremity Strength Deltoid Biceps Triceps WE WF Gr IO Right 4 4 4 5 5 5 5 Left 3 3 3 5 5 5 5 Lower Extremity Strength IP Quad Ham TA EHL Gastroc Right 4 4 4 4 4 4 Left 3 3 3 3 3 3 Sensation grossly intact to light touch in all extremities Gait: not tested Neglect: absent ICH Score: GCS at presentation ICH Volume Intraventricular extension ICH Origin Age [x] 0 (13-15) [] 1 (5-12) [] 2 (3-4) [x] 0 (<30cc) [] 1 (>30cc) [x] 0 (No) t [] 1 (Yes) [x] 0 (Supratentorial) [] 1 (Infratentorial) [x] 0 (< 80 y/0) [] 1 (>/= 80) Total: 0 30-day risk of mortality 0-0% 1-13% 2-26% 3-72% 4-97% 5-100% 6-100% Imaging: CT head (OSH): acute on chronic right SDH. Pending 6 hrs stability scan Brain MRI (OSH): negative for stroke CT scan from OSH (10/17/2020) Repeated CT scan (on arrival, 6 hrs later): Assessment/Plan Ms. Escobedo is a 75 year old female with PMH of ESRD (on HD M/W/F), Multiple Myel kevin (S/p bone marrow transplant), Crohn disease (S/p colectomy, and colostomy), Hypothyroidism. Presented as a transfer from OSH for evaluation of acute on jacquard loom heddles tier meg right SDH in setting of warfarin use. MEDICAL DECISION MAKING: Neuro: #Acute on chronic right SDH (non traumatic), in setting of warfarin use: -CT head from OSH revealed right convexity small SDH -Stable 6 hrs stability scan -Goal SBP < 140. INR < 1.4, Plts < 100,000 -Neurosurgery service on board -Hold warfarin for now #Acute ischemic stroke ruled out: -The patient has right sided weakness, likely 2/2 joints pain -Brain MRI was negative for acute ischemic stroke (OSH) Cardio: Events last 24 hours - None BP within parameter. Continue with hemodynamic monitoring. Pulmo: Events last 24 hours - None Pulmo problem list: None Good gas exchange. Continue with O2 as needed to keep O2 Sat>92%. GI: Events last 24 hours - None #Hx of Crohn disease, S/p colectomy and colostomy: Swallowing evaluation when possible. ID: Temp (24hrs), Av.8 C, Min:36.4 C, Max:37.2 C Events last 24 hours - None Endo: Events last 24 hours - None #Hx of hypothyroidism: -Follow up with TSH -Resume home medication Renal: Events last 24 hours - None #ESRD: -She is on HD (M, W, F) for 12 years -Nephrology service follow up Heme: Events last 24 hours - None #Hx of UE DVT: -She was on warfarin for 2 years until 2 days ago -Warfarin discontinued due to SDH #Hx of Multiple Myeloma S/p bone marrow transplant: #Hx of chronic anemia (Anemia of chronic disease): Social: The patient is updated about her medical condition Code Status: Full code Discussed with attending Dr. Feng. Associated attestation - Venus Feng MD - 10/18/2020 3:19 PM EST N-ICU ATTENDING ADDENDUM: Date of Encounter: 10/18/2020 I personally saw and examined the patient, discussed the case and formulated ass essment and plan with the resident and agree with the history, exam, assessment and plan outlined in the resident's note except where stated in the supplemental documentation by myself. Medical decision making: Principal Problem: Subdural hematoma, nontraumatic, R>L, complicated by AC - acute on chronic, now s/p reversal of COU and Lovenox. Cont to hold AC. SBP goal < 160. CTH stable. Will repeat MRI. Active Problems: Right sided weakness - not explained by SDH. Will repeat MRI to eval for isaías garcia EEG today. Chronic pancreatitis - resume CREON COPD, Interstitial lung disease - on home O2. Cont O2 by NC as needed to maint ain O2 sat > 92 SVC thrombosis, on custodial AC - now s/p reversal d/t acute on chronic SDH. Multiple myeloma, s/p Stem Cell Transplant 04/2009. Has been on Ixazomib, uncl ear if still taking, will do pharm check. ESRD (end stage renal disease) on dialysis - HD session today, Nephrology on b oard. Anemia of chronic renal failure - monitor CBC< no need for transfusion. Hypotension of hemodialysis - s/p NS bolus x2. Crohn's disease, s/p Ileostomy in place - resume home meds Hypothyroidism - home synthroid. Impaired mobility - PT/OT Reminder of plan per resident's note. Discussed with: patient, residents, and staff Signature: Venus Feng documented in this encounter Procedure Notes * Severo Fung MD - 10/18/2020 4:00 PM EST Associated Order(s): EEG ROUTINE STUDY EEG REPORT NUMBER [id number] DATE OF PROCEDURE: 10/18/2020 HISTORY: Yoana Escobedo is a 75 y.o. female with a history of acute on chronic right sub dural hematoma EEG is to evaluate for seizures and/or epilepsy. No current facility-administered medications on file prior to encounter. Current Outpatient Medications on File Prior to Encounter Medication Sig Dispense Refill acetaminophen (TYLENOL) 500 MG tablet Take 500 mg by mouth as needed for Pain Cholecalciferol (VITAMIN D-3 PO) Take 1 tablet by mouth every morning cycloSPORINE (RESTASIS) 0.05 % ophthalmic emulsion Place 1 drop into both eyes every 12 (twelve) hours. dexamethasone (DECADRON) 4 MG tablet TAKE TEN TABLETS BY MOUTH EVERY DAY ON DAYS 1 8 15 22 EACH CYCLE/ TAKES 3tab with meals on days 1,8,15,22 11 diphenhydrAMINE (BENADRYL) 25 mg capsule Take 25 mg by mouth as needed f or Itching (PRIOR DIALYSYS) fish oil-omega-3 fatty acids 1000 MG capsule Take 2 g by mouth daily with lunch ixazomib (NINLARO) capsule Take 3 mg by mouth Indications: 1 cap on day 1 ,8,15 2 hrs after meal levothyroxine (SYNTHROID, LEVOTHROID) 50 MCG tablet Take 50 mcg by mouth every morning loperamide (IMODIUM) 2 MG capsule Take 2 mg by mouth as needed for Diarr hea Multiple Vitamin (MULTIVITAMIN) capsule Take 1 capsule by mouth daily. oxycodone-acetaminophen (PERCOCET) 5-325 MG per tablet Take 1 tablet by m outh every 4 (four) hours as needed for Pain pancrelipase, Ntp-Ndqj-Mbsh, (CREON) 40261 units CPEP capsule Take 2 caps ules by mouth Three times daily with meals 1 capsule with snack 720 capsule 3 sevelamer (RENVELA) 800 MG tablet Take 1,600 mg by mouth 3 (three) times daily with meals. warfarin (COUMADIN) 5 MG tablet TAKE ONE AND ONE HALF TABLETS BY MOUTH EV RADHA DAY/ EVENING 2 Scheduled Meds: levothyroxine 75 mcg Oral Daily [START ON 10/19/2020] lidocaine 1 patch Transdermal Daily LORazepam 1 mg Oral Once sodium chloride 500 mL Intravenous Once sodium chloride 500 mL Intravenous Once Continuous Infusions: PRN Meds:.heparin (porcine) TECHNICAL DESCRIPTION: This digital EEG was recorded using 2 EKG and 21 scalp a nd/or ear electrodes. It was reviewed in referential and bipolar montages follo wing reformatting in the 10[employer] electrode placement system. In her best awake and alert state, the background consists of a symmetric, waxin g and waning, 30-90 microvolt, 7-8 Hz posterior dominant rhythm that attenuates with eye opening. Faster frequencies including 5-10 microvolts, 15 to 25 Hz activity are seen in t he frontal leads. During drowsiness, there is drop out of alpha, slow rolling eye movements and in creased theta and delta slowing , but full sleep is not achieved during this rec ording. Hyperventilation was not performed Photic stimulation with flash frequencies of 2-21 Hz didn't show photoparoxysmal response EKG review reveals no significant arrhythmia CLINICAL IMPRESSION: This routine EEG done in the awake and drowsy states suppor ts the diagnosis of mild encephalopathy. No epileptiform discharges or EEG seizu res were seen. Jose Ny MD PGY 5 Clinical Neurophysiology Fellow I, Dr. Dayra Fung, certify that I reviewed this study with the resident, and agree with the findings in their note. documented in this encounter Consult Notes * Jann Linares, PharmD - 10/19/2020 10:00 AM EST Associated Order(s): IP CONSULT TO PHARMACY Pharmacy Medication History Review Prior to Admission Medications Prescriptions Last Dose Informant Patient Reported? Taking? Atorvastatin Calcium 10 MG Oral Tablet (LIPITOR) Pharmacy Yes Yes Sig: Take 10 mg by mouth every evening Multiple Vitamin (MULTIVITAMIN) capsule Self Yes Yes Sig: Take 1 capsule by mouth daily. Tylenol PM Extra Strength 500-25 MG Oral Tablet (diphenhydramine-acetaminophen) Self Yes Yes Sig: Take 1 tablet by mouth nightly as needed cycloSPORINE (RESTASIS) 0.05 % ophthalmic emulsion Pharmacy Yes Yes Sig: Place 1 drop into both eyes every 12 (twelve) hours. dexamethasone (DECADRON) 4 MG tablet Self Yes Yes Sig: Take 4 mg by mouth Daily as directed 1 day before chemo Note (10/18/2020): Unable to confirm fish oil-omega-3 fatty acids 1000 MG capsule Self Yes Yes Sig: Take 1 g by mouth daily levothyroxine (SYNTHROID) 75 MCG tablet Pharmacy Yes Yes Sig: Take 75 mcg by mouth every morning loperamide (IMODIUM) 2 MG capsule Self Yes Yes Sig: Take 2 mg by mouth daily as needed for Diarrhea pancrelipase, Yfu-Njcr-Dcac, (CREON) 98791 units CPEP capsule Self No Yes Sig: Take 2 capsules by mouth Three times daily with meals 1 capsule with snack Note (10/18/2020): Unable to locate a current script sevelamer (RENVELA) 800 MG tablet Pharmacy Yes Yes Sig: Take 1,600 mg by mouth 3 (three) times daily with meals. warfarin (COUMADIN) 5 MG tablet Self Yes Yes Sig: Take 5 mg by mouth daily Facility-Administered Medications: None The following medications have been added:lipitor, tyelnol pm The following medications have been removed:benadryl, mvi, percocet The following medications have been modified:vitamin d, levothyroxine, loperamid e, warfarin, decadron, fish oil The patient takes the following medications differently than prescribed: Medication History Source: [id number] - [place], [place] - [address] [id number] [id number] - [place], [place] - [address] [facility] [address] [facility] - Located in the [facility] at [facility] - [address] [place] [address] [address] [facility] [id number] The above prior to admission medications have been compared to current inpatient orders. Discrepancies: Interview conducted over the phone with pt and confirmed with pharmacy due to wo rk conditions as of 09/25/2020. Pt states she is taking Creon but I was unable t o locate a current script being filled. Pt states she is only taking Decadron 4m g on the day before chemo and unable to locate a current script. Medication history was completed based on information available during this mark anthony ent encounter by a pharmacy med history fire control technician b and reviewed by myself. The list above may not be all inclusive. Thank you, Jann Linares PharmD * Nancy Bernstein LMSW - 10/18/2020 2:14 PM EST Associated Order(s): IP CONSULT TO SOCIAL WORK Social Work Brief Screen Patient Name: Yoana Escobedo Pronoun Date of : 1945 County of Residence: [place] Admitting Dx: expanding subdural hematoma SDH (subdural hematoma) Admitting Provider: Venus Feng MD Referral Type: Inpatient Referral Source: Physician; SOCO Brenner Reason for Referral: Adjustment to Illness Adjustment to Illness Date: October 18, 2020 Emergency Contacts Name: rowan Burrell Daughter Address: [address] [place] [address] Home: Work: Mobile: Primary Caregiver: self Informant(s): Patient Authorized to Consent: self SW was consulted for adjustment to illness. SW spoke with Yoana who stated that she felt pretty good about everything going on, denying anxiety or any worries right now. She feels like she has been communicated with properly by the staff. She states that her daughter Rowan is very supportive of her, and indicated th at she is her HCP. SW checked the HCP in the chart to ensure we had a copy and t hat it was valid. She states that she lives with Rowan and cannot wait to get back home. SW asked her if there's anything that I can do to help her while she' s here, which she stated she cannot think of anything. SW provided supportive st atements and words of encouragement. SW will remain available as needed. Interventions Provided psychological support and education to patient on adjustment to illness . Assessed for SW needs. Signature: Nancy Bernstein Date: October 18, 2020 * Roman Merritt MBBS - 10/18/2020 8:04 AM EST Associated Order(s): IP CONSULT TO NEPHROLOGY Nephrology Consult Note Reason for Consultation: ESRD on HD for maintenance hemodialysis. Requested By: Venus Feng MD Admission Date: 10/18/2020 Active Problems: * No active hospital problems. * Subjective: History of present illness: Yoana Escobedo is a 75 y.o. 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 MRI brain wa s positive for bilateral chronic small subdural hematoma. Repeated scan showed increase in size being on warfarin. [facility]. She is an ESRD hemodialysis dependent patient, who does her dialysis on Friday, Friday, and Friday schedule at [facility]. Her estim ed dry weight is 50 kg; her dialysis sessions goes without any UF. She has righ t upper arm aVF but immature. She also has right IJ permacath which is function al. Her last dialysis session was on Friday. She is due for her dialysis today . Nephrology consulted for inpatient hemodialysis service. Patient is assessed and examined at bedside this morning. She was lying comfort able in bed and in no respiratory distress. She was on 2 and half liters of oxy gen support which is her baseline. Vitals noted; BP 114/56, HR 63, RR 18, satur ation of 100% on 2 and half liters of oxygen. Labs noted; K4.8, bicarb 25, BUN/ creatinine is 36/6.6, and Hb 10.4. She endorses feeling well. Denies chest everette n, shortness of breath, palpitation, dizziness, blurry vision, pain in legs. Review of Systems: Constitutional: Negative for fever, chills, diaphoresis, appetite change, fatigu e. HENT: Negative for facial swelling, neck pain and neck stiffness. Respiratory: Negative for cough, wheezing and shortness of breath. Cardiovascular: Negative for chest pain, palpitations. Gastrointestinal: Negative for nausea, vomiting, abdominal pain, diarrhea, const ipation. Genitourinary: Negative for dysuria, hematuria, flank pain and difficulty urinat ing Neurological: Negative for headache, blurry vision, dizziness and syncope. Musculoskeletal: Negative for joint pains, and swelling. All systems reviewed, pertinent positives and negatives as mentioned above. Othe rwise systemic review is nil of note. Allergies: Allergies Allergen Reactions Vancomycin Itching and Rash PMH: has a past medical history of Chronic kidney disease, Crohn's disease, Ile ostomy in place, Melanoma, MRSA (methicillin resistant staph aureus) culture pos itive (2006), Multiple myeloma (2008), and Skin cancer. PSH: has a past surgical history that includes Excision basal cell carcinoma (L eft); Appendectomy (1959); Ileostomy (1980); Limbal stem cell transplant (); Dialysis fistula creation (Left, 2008); Skin surgery (Right, 2010); Spine shah rgery (2010); and Colonoscopy. FH: family history is not on file. SH: reports that she quit smoking about 39 years ago. Her smoking use included cigarettes. She has a 2.00 pack-year smoking history. She has never used smokele ss tobacco. She reports that she does not drink alcohol or use drugs. Patient Active Problem List Diagnosis Date Noted History of melanoma 07/11/2014 ESRD (end stage renal disease) 05/19/2013 Multiple myeloma 02/24/2013 Medications Prior to Admission Medication Sig Dispense Refill Last Dose acetaminophen (TYLENOL) 500 MG tablet Take 500 mg by mouth as needed for Pain Cholecalciferol (VITAMIN D-3 PO) Take 1 tablet by mouth every morning cycloSPORINE (RESTASIS) 0.05 % ophthalmic emulsion Place 1 drop into both eyes every 12 (twelve) hours. dexamethasone (DECADRON) 4 MG tablet TAKE TEN TABLETS BY MOUTH EVERY DAY ON DAYS 1 8 15 22 EACH CYCLE/ TAKES 3tab with meals on days 1,8,15,22 11 diphenhydrAMINE (BENADRYL) 25 mg capsule Take 25 mg by mouth as needed f or Itching (PRIOR DIALYSYS) fish oil-omega-3 fatty acids 1000 MG capsule Take 2 g by mouth daily with lunch ixazomib (NINLARO) capsule Take 3 mg by mouth Indications: 1 cap on day 1 ,8,15 2 hrs after meal levothyroxine (SYNTHROID, LEVOTHROID) 50 MCG tablet Take 50 mcg by mouth every morning loperamide (IMODIUM) 2 MG capsule Take 2 mg by mouth as needed for Diarr hea Multiple Vitamin (MULTIVITAMIN) capsule Take 1 capsule by mouth daily. oxycodone-acetaminophen (PERCOCET) 5-325 MG per tablet Take 1 tablet by m outh every 4 (four) hours as needed for Pain pancrelipase, Nbt-Kpfs-Tuyr, (CREON) 49084 units CPEP capsule Take 2 caps ules by mouth Three times daily with meals 1 capsule with snack 720 capsule 3 sevelamer (RENVELA) 800 MG tablet Take 1,600 mg by mouth 3 (three) times daily with meals. warfarin (COUMADIN) 5 MG tablet TAKE ONE AND ONE HALF TABLETS BY MOUTH EV RADHA DAY/ EVENING 2 Current Facility-Administered Medications Medication Dose Route Frequency Provider Last Rate Last Admin heparin (porcine) 1000 units/mL injection 2,000 Units 2,000 Units Intrac atheter PRN SOCO Wray levothyroxine (SYNTHROID) tablet 75 mcg 75 mcg Oral Daily SOCO Reid 75 mcg at 10/18/20 0652 Objective: Vital signs in last 24 hours: Temp: [36.5 C (97.7 F)-36.6 C (97.9 F)] 36.6 C (97.9 F) Pulse: [66-76] 66 Resp: [15] 15 BP: (106-122)/(54-57) 106/54 SpO2: [99 %-100 %] 100 % O2 Therapy: Oxygen O2 Flow Rate (L/min): [1 L/min] 1 L/min Intake/Output last 3 shifts:No intake/output data recorded. Intake/Output this shift:No intake/output data recorded. Physical Exam Gen: Elderly lady on 2 and half liters of oxygen support lying comfortable witho ut any distress. Head: normocephalic, atraumatic Eyes: Pupils are equal, round, and reactive to light. Neck: supple, JVP doesn't appear to be raised, no thyromegaly present. Cvs: regular rate and rhythm, normal S1 and S2, no murmur, no gallop Resp: not in distress, bilateral lungs are clear, no added sounds Abd: soft, nondistended, nontender, BS present Photographer Portrait: no focal neurological deficit, AOX3. Ms: no b/l edema in lower limbs Skin:warm, dry, and without rash. Psy: normal mood, affect, and behavior. HD Access: Right IJ permacath functional, right upper arm aVF immature. Data Reviewed Recent Labs Lab 10/18/20425 NA 136 K 4.8 CL 97* BICARBONATE 25 BUN 36* CREATININE 6.68* GLUCOSE 87 CALCIUM 8.8 ALBUMIN 4.0 Recent Labs Lab 10/18/20425 HCT 30.0* HGB 10.4* MCH 35.5* MCHC 34.6 MCV 102.7* PLT 163 RDW 16.5* WBC 4.7 Summary: In summary, Yoana Escobedo who is a 75 y.o. female with ESRD on HD MWF who was transferred from outside hospital for acute on chronic right side subdural hemat kevin in setting of continued warfarin; previously she was diagnosed as TIA with M RI significant for bilateral small chronic subdural hematoma. Nephrology consul travis for inpatient hemodialysis service. Recommendations are below. Assessment: ESRD on HD MWF at [facility]. Last dialysis on Friday. She is due for dialysis today. Plan: 1. Renal - labs and vitals reviewed; potassium 4.8, bicarb 25, BUN/creatinine is 36/6.68. Clinically she does not look fluid overloaded. She is due for her dialysis session today. Blood pressure is stable. We plan to dialyze her today for 4 hours without any UF. 2. Electrolytes -sodium and potassium within normal range. 3. Acid/Base Status -normal acid-base balance. 4. Mineral and Bone -normocalcemia. Please check serum phosphorus and magnesium . 5. Volume Status -euvolemic. Monitor I's and O's. 6. Hematologic -anemia Hb 10.4 within CKD goal. No concerns. 7. Dietary Recommendations -renal diet. 8. Medications - Please dose all medication for an estimated GFR less than 10. A void nephrotoxic drugs and IV contrast. 9. Blood Pressure - Reviewed; stable. Case discussed with Dr. Stone. SOCO Wray Fellow - Division of Nephrology [facility] Associated attestation - Shree Stone MD - 10/18/2020 1:59 PM EST Please see Resident/Fellow's notes for details. I have interviewed and examined the patient and confirmed the history, examination, assessment and plan as noted in the Resident/Fellow's note with changes/addition/deletion if any as noted be low. I have not edited the note. Labs obtained/reviewed. Decision making is of moderate complexity. * Yusuf Bhatti MD - 10/18/2020 5:51 AM EST Associated Order(s): IP CONSULT TO NEUROSURGERY [facility] [place] [address] PATIENT NAME: Yoana Escobedo, DATE OF : 1945 . Subjective Date of Encounter: 10/18/2020 Reason for Consultation: management recommendations. Requested By: ED Time Consult First Requested: October 18, 2020 5:52 AM Time Consult First Evaluated: October 18, 2020 5:52 AM History of Present Illness: 75-year-old female with a history of multiple myeloma status post bone marrow tr ansplant end-stage renal disease on dialysis Crohn's disease status post colecto my/colostomy. She had a 2-day history of garbled speech with right-sided weakne ss was evaluated for possible TIA 2 days ago and was found to have bilateral thi n chronic subdurals and was told continue her Coumadin for which she takes for r ight upper extremity DVT. She had a repeat scan today which showed acute transf ormation of her right sided subdural but still remain thin with no midline shift . Her speech is somewhat improved although her right-sided weakness is relative ly the same. She denies any other weakness numbness or tingling no bowel bladde r incontinence. She denies visual changes or difficulty swallowing. Review of Systems Pertinent items are noted in HPI. Active Problems: Patient Active Problem List Diagnosis Date Noted History of melanoma 07/11/2014 ESRD (end stage renal disease) 05/19/2013 Multiple myeloma 02/24/2013 Past Medical History: Past Medical History: Diagnosis Date Chronic kidney disease Crohn's disease Ileostomy in place Melanoma MRSA (methicillin resistant staph aureus) culture positive 2006 RIGHT HAND, AFTER THE BUG BITE Multiple myeloma 2008 s/p bone marrow transplant Skin cancer Past Surgical History: Past Surgical History: Procedure Laterality Date APPENDECTOMY 1960 BASAL CELL CARCINOMA EXCISION Left FOREHEAD COLONOSCOPY DIALYSIS FISTULA CREATION Left 2009 ILEOSTOMY 1981 LIMBAL STEM CELL TRANSPLANT 04/2009 SKIN SURGERY Right 2010 MELANOMA RIGHT ARM SPINE SURGERY 2010 VERTEBRA FRACTURE- CEMENT PLACEMENT Allergies: Allergies Allergen Reactions Vancomycin Itching and Rash Prior to Admission Medications: Medications Prior to Admission Medication Sig Dispense Refill Last Dose acetaminophen (TYLENOL) 500 MG tablet Take 500 mg by mouth as needed for Pain Cholecalciferol (VITAMIN D-3 PO) Take 1 tablet by mouth every morning cycloSPORINE (RESTASIS) 0.05 % ophthalmic emulsion Place 1 drop into both eyes every 12 (twelve) hours. dexamethasone (DECADRON) 4 MG tablet TAKE TEN TABLETS BY MOUTH EVERY DAY ON DAYS 1 8 15 22 EACH CYCLE/ TAKES 3tab with meals on days 1,8,15,22 11 diphenhydrAMINE (BENADRYL) 25 mg capsule Take 25 mg by mouth as needed f or Itching (PRIOR DIALYSYS) fish oil-omega-3 fatty acids 1000 MG capsule Take 2 g by mouth daily with lunch ixazomib (NINLARO) capsule Take 3 mg by mouth Indications: 1 cap on day 1 ,8,15 2 hrs after meal levothyroxine (SYNTHROID, LEVOTHROID) 50 MCG tablet Take 50 mcg by mouth every morning loperamide (IMODIUM) 2 MG capsule Take 2 mg by mouth as needed for Diarr hea Multiple Vitamin (MULTIVITAMIN) capsule Take 1 capsule by mouth daily. oxycodone-acetaminophen (PERCOCET) 5-325 MG per tablet Take 1 tablet by m outh every 4 (four) hours as needed for Pain pancrelipase, Msc-Rqsc-Qsuk, (CREON) 22110 units CPEP capsule Take 2 caps ules by mouth Three times daily with meals 1 capsule with snack 720 capsule 3 sevelamer (RENVELA) 800 MG tablet Take 1,600 mg by mouth 3 (three) times daily with meals. warfarin (COUMADIN) 5 MG tablet TAKE ONE AND ONE HALF TABLETS BY MOUTH EV RADHA DAY/ EVENING 2 Family History:No family history on file. Social History: Social History Tobacco Use Smoking status: Former Smoker Packs/day: 1.00 Years: 2.00 Pack years: 2.00 Types: Cigarettes Quit date: 1980 Years since quittin.9 Smokeless tobacco: Never Used Tobacco comment: quit 38 years ago Substance Use Topics Alcohol use: No Alcohol/week: 0.0 standard drinks Objective Vitals Temp: [36.5 C (97.7 F)] 36.5 C (97.7 F) Pulse: [76] 76 Resp: [15] 15 BP: (122)/(57) 122/57 SpO2: [99 %] 99 % O2 Therapy: Oxygen O2 Flow Rate (L/min): [1 L/min] 1 L/min Intake/Output Last 3 Completed Shifts No intake/output data recorded. Physical Exam General NAD, lying supine on room air HEENT:NC/AT CV:Normal Rate Pulm: symmetric chest rise Abdm: soft Ext: warm, well perfused General Appearance: NAD Mental status: AAOx3 Language: Fluent Cranial Nerves: PERRL, EOMI, FS, TML Strength: Elevates BUE right drift, elevates BLE right lag Sensation: SILTx4 Cerebellar: No dysmetria on FTN Data Review CBC: Recent Labs Lab 10/18/20425 WBC 4.7 RBC 2.92* HGB 10.4* HCT 30.0* PLT 163 NEUTOPHILPCT 58 MONOPCT 12 BMP: Recent Labs Lab 10/18/20425 NA 136 K 4.8 CL 97* BICARBONATE 25 GLUCOSE 87 BUN 36* CREATININE 6.68* BCR 5 GFRAA 6* GFRNONAA 6* COAGS: Recent Labs Lab 10/18/20425 INR 1.23 Assessment/Plan Yoana Escobedo is a 75 y.o. female patient with a 2 day history of garbled spee ch and right sided weakness found to have an acute on chronic subdural hematoma Neuro: GCS 15 Exam with right sided weakness not explained by subdural CT head with thin right acute on chronic subdural without shift Repeat CT head 6 hours from previous Recommend INR<1.4, Platelets>100, SBP<140 Hold anticoagulation Rest of care per primary team Discussed with chief resident Dr Packer and attending Dr Rossa. Yusuf Bhatti MD Neurosurgery Resident, PGY-4 Associated attestation - Cheryl Rosas MD - 10/18/2020 9:06 AM EST I performed a history and physical examination of the patient and discussed the management with the resident on 10/18/2020 at 8AM. I reviewed the resident s note and agree with the documented findings and plan of care. documented in this encounter Miscellaneous Notes * Benefit Check - Kannan Justice - 10/19/2020 3:38 PM EST Medicare is primary. is secondary. Acute Rehab, SNF, Home Care, Home Infusion, and DME are covered in full. Auth is required at [id number]. Can refer to any Medicare approved provider. * Plan of Care - Hina Boogie RN - 10/19/2020 3:13 PM EST Problem: Sensory Perception is less than 4 (< 4) Goal: Improve Sensory Perception 10/19/2020 1513 by Hina Boogie RN Outcome: Addressed During this Hospitalization 10/19/2020 0958 by Hina Boogie RN Outcome: Progressing Problem: Moisture is less than 4 (< 4) Goal: Eliminate Moisture 10/19/2020 151 by Hina Boogie RN Outcome: Addressed During this Hospitalization 10/19/2020 0958 by Hina Boogie RN Outcome: Progressing Problem: Activity is less than 4 (< 4) Goal: Improve Activity 10/19/2020 1513 by Hina Boogie RN Outcome: Addressed During this Hospitalization 10/19/2020 0958 by Hina Boogie RN Outcome: Progressing Problem: Mobility is less than 4 (< 4) Goal: Improve Mobility 10/19/2020 1513 by Hina Boogie RN Outcome: Addressed During this Hospitalization 10/19/2020 0958 by Hina Boogie RN Outcome: Progressing Problem: Nutrition is Less than 3 (< 3) Goal: Improve Nutrition 10/19/2020 151 by Hina Boogie RN Outcome: Addressed During this Hospitalization 10/19/2020 0958 by Hina Boogie RN Outcome: Progressing Problem: Friction Shear is less than 3 (< 3) Goal: Eliminate Friction Shear 10/19/2020 151 by Hina Boogie RN Outcome: Addressed During this Hospitalization 10/19/2020 0958 by Hina Boogie RN Outcome: Progressing Problem: INJURY, RISK FOR Goal: Patient will not be injured from a fall during hospitalization 10/19/2020 151 by Hina Boogie RN Outcome: Addressed During this Hospitalization 10/19/2020 0958 by Hina Boogie RN Outcome: Progressing Problem: Knowledge Deficit Goal: Patient requires education regarding causes of high risk injury from a fal l 10/19/2020 151 by Hina Boogie RN Outcome: Addressed During this Hospitalization 10/19/2020 0958 by Hina Boogie RN Outcome: Progressing Goal: Patient's family requires education regarding causes of high risk injury f rom a fall 10/19/20201512 by Hina Boogie RN Outcome: Addressed During this Hospitalization 10/19/2020 0958 by Hina Boogie RN Outcome: Progressing Problem: Risk for Falls Goal: No falls during hospitalization Description: Patient will not fall during hospitalization. 10/19/2020 151 by Hina Boogie RN Outcome: Addressed During this Hospitalization 10/19/2020 0958 by Hina Boogie RN Outcome: Progressing Problem: Knowledge Deficit Goal: Knowledge - personal safety Description: Patient will verbalize understanding of fall prevention. 10/19/2020 1513 by Hina Boogie RN Outcome: Addressed During this Hospitalization 10/19/2020 0958 by Hina Boogie RN Outcome: Progressing * Assessment & Plan Note - Anuradha Hayes, PT - 10/19/2020 9:28 AM EST Physical Therapy Acute Care Neurology Examination Medical Diagnosis: Acute on chronic right SDH (non traumatic), in setting of warfarin History of Present Illness: Per LSIA, "Ms. Escobedo is a 75 year old female with PMH of ESRD (on HD M/W/F), Multiple Myeloma (S/p bone marrow transplant), Crohn disease (S/p colectomy, and colostomy), Hypothyroidism. She presented initially to [facility] after she had right sided weakness and garbled speech started while she was on dialysis on Friday. Then her speech improved, and she diagnosed as TIA in setting of negative Brain MRI for acute ischemic stroke, however it showed bilateral chronic small SDH. She continued on warfarin, then the repeated scan showed increased in the size if the right SDH (acute on chronic right SDH). The patient transferred to for further evaluation of the right acute on chronic SDH. ? On arrival to the , she is awake, alert, oriented x 3. Her exam (UE) is limited due to shoulders pain due to history of rotator cuff tear. Although the right side is weaker than the left side, but still she can move all the extremities antigravity. " Date of Onset: fridayOct 16 Date of Admission: 10/18/2020 3:47:00 AM Demographics: Age: 75 Gender: Female Past Medical History and Radiographics: Significant rehabilitation considerations: Per LISA, "Past Medical History: Past Medical History: DiagnosisDate ?Chronic kidney disease? ?Crohn's disease? ?Ileostomy in place? ?Melanoma? ?MRSA (methicillin resistant staph aureus) culture [id number] ?RIGHT HAND, AFTER THE BUG BITE ?Multiple [id number] ?s/p bone marrow transplant ?Skin cancer? ? Past Surgical History: Past Surgical History: ProcedureLateralityDate ?APPENDECTOMY?1959 ?BASAL CELL CARCINOMA EXCISIONLeft? ?FOREHEAD ?COLONOSCOPY?? ?DIALYSIS FISTULA [id number] ?ILEOSTOMY?1980 ?LIMBAL STEM CELL TRANSPLANT?04/2009 ?SKIN [id number] ?MELANOMA RIGHT ARM ?SPINE SURGERY?2009 ?VERTEBRA FRACTURE- CEMENT PLACEMENT" [facility] Radiologic Findings: CT head on 10/18/2020: Impression: ? Subdural hemorrhage along the bilateral superior frontoparietal convexities bilaterally, slightly more prominent and more posteriorly, likely related to redistribution without any significant change. No significant change. No significant mass effect or midline shift. Rehabilitation Precautions/Restrictions: Moderate Fall Risk, DNR/DNI, OOB to chair, Swallowing/aspiration precautions SUBJECTIVE Mental Status: Orientation:The patient is oriented to person, place and time. Command Following:The patient is able to follow 3+ step commands Prior Functional Level: Per chart. Patient being modified independent with rollator with ADL and medication management. On 2.5L of oxygen at baseline with home concentrator. Patient's son in law assist with meals (3x/day). Patient's grandchildren assist with cleaning. Family assists with transportation. 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 . If needed: Family member is willing to assist. Patient's family lives in upstairs apartment. There is someone there 26/05. Per pt, the [place] provided a brody for chair lift, walk-in shower and ramp. Patient 1 step to enter from the garage. Patient has bilateral rails down into the apartment, approx. 7-8 stairs. Grab bars (2) and walk in shower. Safety frame for toilet. Patient plans to have a chair lift installed from the [place]. Home Environment: There are Patient 1 step to enter from the garage. steps to enter the home with Bilateral handrails. There is no ramp to enter the home. Home is two levels. Description of 1st floor bedroom and bathroom availability/accessibility: Patient has bilateral rails down into the apartment, approx. 7-8 stairs. Grab bars (2) and walk in shower. Safety frame for toilet. Pt stays on the first floor of 2 apartment home. . Description of 2nd floor bedroom and bathroom accessibility: does not access . The patient is required to manage 7-8 steps within the home, with Bilateral handrails. Equipment Owned: Rollator (2), grab bars, adjustable showerhead, shower stool with back, transport chair, safety frame from toilet, long handled comb, grabber, long handled sponge, sock aid Pain: Patient currently complains of pain. Location: right shoulder . Patient describes pain as Tender. Verbal Scale: Patient reports a pain level of 7 out of 10. Will perform therapy only as tolerated. Location #2: left shoulder . Patient describes pain as Soreness. Tender. Verbal Scale: Patient reports a pain level of 5 out of 10. Will perform therapy only as tolerated. Pain Medication Today: no. OBJECTIVE General Observation: Pt received supine in bed, +2L O2, +ileostomy, +vitals monitor, BP cuff on left thigh, wears glasses Bed alarm was on at start of session. 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 Rapid Alternating Movement (supination/pronation): Impaired. right LE Good fine motor dexterity/hand function as pt managed her ostomy bag independently, and clipped and unclipped the monitors, as well as application of BP cuff to left thigh during session. Functional Mobility: Bed Mobility: Patient moves from supine to/from sit requiring contact guard assistance. Transfers: Patient transferred sit to/from stand requiring contact guard assistance of 1 person. Patient used the following equipment: Arms of chair. Patient used the following equipment: rolling walker. Locomotion/Wheelchair: Not applicable for this patient at this time. Locomotion/Gait/Ambulation: Patient was contact guard with gait/ambulation of 1 person for 70' . Patient requires the following assistive device(s): Rolling walker. right LE weakness and foot drop (per pt, she has an AFO that she received "the last time this happened") Right drop foot. Stairs: Not assessed. Vital Signs: Stable. Blood Pressure: 120/78 mm Hg Oxygen Saturation: 100 % at rest, 86% with exertion on 2L HR: 78bpm Balance: Static balance in a standing position: supervision Dynamic balance in a standing position: CG for washing hands at the sink Endurance: fair. +SOB with ambulation Outcome Measures: [facility] "6 Clicks" Basic Mobility Inpatient Short Form: Turning over in bed: A little difficulty (3) Sitting down on and standing up from a chair with arms: A little difficulty (3) Moving from lying on back to sitting on the side of the bed: A lot of difficulty (2) Moving to and from a bed to a chair (including a wheelchair): A little help (3) Walking in hospital room: A little help (3) Climbing 3-5 steps with a railing: A lot of help (2) Raw Score 16 /24. Interventions: None provided today. Education: Educational needs: When/how to obtain future treatment. plan for session, gait and discharge recommendations Barriers to Learning: No barriers. Learning Preference: Demonstration. Visual. Mode of education provided: Explanation. Demonstration. Audience: Patient. Education Provided: When/how to obtain future treatment. Response: Verbalized understanding. ASSESSMENT Moderate Complexity Evaluation: A history of present problem with 1-2 personal factors and/or comorbidities that impact the plan of care. An examination of body system(s) using standardized tests and measures addressing a total of 3 or more elements from any of the following: body structures and functions, activity limitations, and/or participation restrictions. An evolving clinical presentation with changing characteristics. Clinical decision-making of moderate complexity using standardized patient assessment instrument and/or measurable assessment of functional outcome. Response to Evaluation: The session was tolerated well. Pt very independent and was doing all that she could for herself, motivated to go home. Exhibits SOB with exertion however wears home O2 at baseline. Call gary was in patient's reach at end of session. Pain: Yes, pain is unchanged from start of today's treatment. Other Rehabilitation Considerations: Patient's progress may be impaired by the following potential barriers: No potential barriers to progress. Support Structure: Support structure is good. Family member willing to assist patient. has family involved that assist as needed and are available to assist more upon this D/C Strengths: Cognition. Independent premorbid function. Social/family support. Patient Goals: Patient's functional goals: wants to go home. The patient's therapy goals are based on limitations/impairments in the following areas: Gait. Transfers. Short Term Goals: Not applicable. Baseline level impairments that do not require restorative therapy. Customer Logistics Manager Goals: 1. Pt will transfers with modified independence in 1 week. 2. Pt will ambulate at least 150' with RW and modified independence in 1 week. PLAN Treatment Frequency, Duration and Interventions: Restorative Physical Therapy is recommended for 6x/week for 1 week Treatment is to include: Neuromuscular Re-education. Therapeutic Activity. Therapeutic Exercise. Equipment Provided: None issued this visit. Equipment Recommended: None, patient has necessary equipment at home. Recommended Physical Therapy Follow Up: Upon acute care discharge, the following is currently recommended: Home Physical Therapy. versus Outpatient Physical Therapy. Assist from family for mobility due to fall risk and right LE weakness. Educated pt to use AFO for improved gait and floor clearance. Recommended Consults: None currently. Development of Plan of Care: Participants included: Patient. Nurse. Goal Review Visit Number: 1 Visit Number: Today's visit is number 1 Program: Neuro (Therapist may be reached on Neovacs) SESSION: Duration: 55 CHARGES: - ORDER - Physical Therapy Treatment 1 Units - ORDER - PHYSICAL THERAPY CONSULT 1 Units - NEURO VISIT 1 Units [id number] - CHARGE - PT EVAL; MODERATE COMPLEXITY 4 Units - 0 Units - 0 Units - 0 Units - 0 Units Total treatment minutes: 55.00 Minutes Electronically Signed by: Anuradha Hayes PT, 10/19/2020 1:22:11 PM * Plan of Care - Fer Pozo RN - 10/18/2020 8:48 PM EST Problem: Sensory Perception is less than 4 (< 4) Goal: Improve Sensory Perception Outcome: Progressing Problem: Moisture is less than 4 (< 4) Goal: Eliminate Moisture Outcome: Progressing Problem: Activity is less than 4 (< 4) Goal: Improve Activity Outcome: Progressing Problem: Mobility is less than 4 (< 4) Goal: Improve Mobility Outcome: Progressing Problem: Nutrition is Less than 3 (< 3) Goal: Improve Nutrition Outcome: Progressing Problem: Friction Shear is less than 3 (< 3) Goal: Eliminate Friction Shear Outcome: Progressing Problem: INJURY, RISK FOR Goal: Patient will not be injured from a fall during hospitalization Outcome: Progressing Problem: Knowledge Deficit Goal: Patient requires education regarding causes of high risk injury from a fal l Outcome: Progressing Goal: Patient's family requires education regarding causes of high risk injury f rom a fall Outcome: Progressing Problem: Risk for Falls Goal: No falls during hospitalization Description: Patient will not fall during hospitalization. Outcome: Progressing Problem: Knowledge Deficit Goal: Knowledge - personal safety Description: Patient will verbalize understanding of fall prevention. 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 Escobedo is a 75 year old female with PMH of ESRD (on HD M/W/F), Multiple Myeloma (S/p bone marrow transplant), Crohn disease (S/p colectomy, and colostomy), Hypothyroidism. She presented initially to [facility] after she had right sided weakness and garbled speech started while she was on dialysis on Friday. Then her speech improved, and she diagnosed as TIA in setting of negative Brain MRI for acute ischemic stroke, however it showed bilateral chronic small SDH. She continued on warfarin, then the repeated scan showed increased in the size if the right SDH (acute on chronic right SDH). The patient transferred to for further evaluation of the right acute on chronic SDH. ? On arrival to the , she is awake, alert, oriented x 3. Her exam (UE) is limited due to shoulders pain due to history of rotator cuff tear. Although the right side is weaker than the left side, but still she can move all the extremities antigravity. " Date of Admission: 10/18/2020 3:47:00 AM Demographics: Age: 75 Gender: Female Past Medical History and Radiographics: Significant rehabilitation considerations: Per LISA"Past Medical History: Past Medical History: DiagnosisDate ?Chronic kidney disease? ?Crohn's disease? ?Ileostomy in place? ?Melanoma? ?MRSA (methicillin resistant staph aureus) culture [id number] ?RIGHT HAND, AFTER THE BUG BITE ?Multiple [id number] ?s/p bone marrow transplant ?Skin cancer? ? Past Surgical History: Past Surgical History: ProcedureLateralityDate ?APPENDECTOMY?1960 ?BASAL CELL CARCINOMA EXCISIONLeft? ?FOREHEAD ?COLONOSCOPY?? 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 Subdural hemorrhage along the bilateral superior frontoparietal convexities bilaterally, slightly more prominent and more posteriorly, likely related to redistribution without any significant change. No significant change. No significant mass effect or midline shift. Rehabilitation Precautions/Restrictions: Moderate Fall Risk, DNR/DNI, OOB to chair, Swallowing/aspiration precautions SUBJECTIVE Premorbid Level of Activities of Daily Living: Patient being modified independent with rollator with ADL and medication management. Patient's son in law assist with meals (3x/day). Patient's grandchildren assist with cleaning. Family assists with transportation. 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 . If needed: Family member is willing to assist. Patient's family lives in upstairs apartment. There is someone there 26/05. Home Environment: Patient 1 step to enter from the garage. Patient has bilateral rails down into the apartment, approx. 7-8 stairs. Grab bars (2) and walk in shower. Safety frame for toilet. Patient plans to have a chair lift installed from the [place]. Equipment Owned: Rollator (2), grab bars, adjustable showerhead, shower stool with back, transport chair, safety frame from toilet, long handled comb, grabber, long handled sponge, sock aid Pain: Patient has no complaints of pain currently. Pain Medication Today: no. OBJECTIVE General Observation: Patient in supine with head of bed raised +telem/oximetry +chest port +colostomy No bed alarm noted at start of session. Vital Signs: Stable. Heart Rate: 81 beats per minute Oxygen Saturation: 99 % Respiratory Rate: 17 breaths/min Blood Pressure: 105/44 mm Hg UPPER EXTREMITY FUNCTION Hand Dominance: right. Range of Motion: Chace shoulder ROM significantly limited due to previous rotator cuff injury. Patient L elbow motion WFL. R AROM limited, but PROM WFL. Wrist and digits WFL Strength: Able to move against gravity within available range. R house worker is weaker as compared L, but patient reports this is longstanding. Skin Integrity Screen: +mepilex to buttocks Endurance: fair (-). Tone/Spasticity: No relevant impairments. Sensation: Decreased sensation in RLE Edema: No edema is present. LOWER EXTREMITY FUNCTION: RLE weakness Cognitive Screen: Responsiveness: Alert. Orientation: The patient is oriented to person, place and time. Following Commands: The patient is able to follow 3+ step commands Memory: Normal. Communications: able to make needs and wants known Executive Function: No apparent deficits . Attention: Normal. Cognitive Test Score: Not tested. Vision Screen: No apparent functional visual impairment. Perception: Perception was within normal limits with today's examination. Functional Mobility: Patient politely declined OOB mobility on this date due to fatigue. Patient is verbal cues for bed rolling. Fine Motor Coordination: Upper extremity fine motor coordination is grossly intact. Gross Motor Coordination: Bilateral upper extremity gross motor coordination is impaired. Balance: Not assessed. Activities of Daily Living: Feeding: Modified independent. Observed patient during task. Grooming: Modified independent. Reported by patient/family. uses long handled items at baseline Bathing - Upper Body: Not assessed. Bathing - Lower Body: Not assessed. Upper Body Dressing: Not assessed. Lower Body Dressing: Not assessed. Toileting: Not assessed. Toilet Transfer: Not assessed. Outcome Measure: [facility] "6 Clicks" Daily Activity Inpatient Short Form: Putting on and taking off regular lower body clothing: A little assistance (3) Bathing (including washing, rinsing, and drying): A little assistance (3) Toileting (including use of toilet, bedpan, or urinal): A little assistance (3) Putting on and taking off regular upper body clothing: A little assistance (3) Taking care of personal grooming such as brushing teeth: No assistance (4) Eating meals: No assistance (4) Raw Score: 20 /24 Interventions: None provided today. Splinting: No splint issued today. Education: Educational needs: Role of Acute OT, plan of care, discharge planning/recommendations, ADL retraining, safe transfer training Barriers to Learning: No barriers. Learning Preference: Auditory. Mode of education provided: Explanation. Audience: Patient. Education Provided: Role of Acute OT, plan of care . Response: Verbalized understanding. ASSESSMENT Low Complexity Evaluation: An occupational profile and medical and therapy history, which includes a brief history including review of medical and/or therapy records relating to the presenting problem. Clinical decision-making of low complexity which includes an analysis of the occupational profile, analysis of data from problem-focused assessment(s), and consideration of a limited number of treatment options. Response to Evaluation: The session was tolerated fair, as evidenced by: Patient agreeable to session and bed level assessment, but reports too fatigued for OOB activity at this time. Call gary was in patient's reach at end of session. Pain: Patient has no complaints of pain currently. Strengths: Social/family support. Goals: Patient's functional goals: to go home The patient's therapy goals are based on limitations/impairments in the following areas: ADLs / IADLs. Carryover moving and handling objects. Changing and maintaining body position. Short Term Goals: 1. Patient will complete toilet transfer with stand by assist within 1 week. 2. Patient will complete lower body dressing with AE PRN with stand by assist within 1 week. Customer Logistics Manager Goals: 1. Patient will complete ADL routine with modified independence using AE PRN within 2 weeks. PLAN Treatment Frequency, Duration and Interventions: Restorative Occupational Therapy recommended for 5x/week for 2 weeks Treatment is to include: Development of Cognitive Skills. Neuromuscular Re-education. Self Care/Home Management. Therapeutic Activity. Therapeutic Exercise. Equipment Provided: None issued this visit. Equipment Recommended: To be assessed. Recommended Occupational Therapy Follow Up: Upon acute care discharge, the following is currently recommended: Unable to determine until OOB/ADL assessment Recommended Consults: None currently. Development of Plan of Care: Participants included: Patient. Nurse. Goal Review Visit Number: 1 Visit Number: Today's visit is number 1 Program: Stroke (Therapist may be reached on Neovacs) SESSION: Duration: 38 CHARGES: - ORDER - Occupational Therapy Treatment 1 Units - STROKE VISIT 1 Units [id number] - CHARGE - OT EVAL; LOW COMPLEXITY 3 Units - 0 Units - 0 Units Total treatment minutes: 38.00 Minutes Electronically Signed by: LUPE Valdez, 10/18/2020 4:12:15 PM * Assessment & Plan Note - Jennifer Gage CCC-STRADDLE BUG DRIVER - 10/18/2020 8:52 AM EST Speech Language Pathology Acute Care - Clinical Swallow Evaluation Admitting Diagnosis: Transfer from [facility] for evaluation of acute on chronic right SDH in setting of warfarin use, rule out acute ischemic stroke History of Present Illness: Per LISA, "Ms. Escobedo is a 75 year old female with PMH of ESRD (on HD M/W/F), Multiple Myeloma (S/p bone marrow transplant), Crohn disease (S/p colectomy, and colostomy), Hypothyroidism. She presented initially to [facility] after she had right sided weakness and garbled speech started while she was on dialysis on Friday. Then her speech improved, and she diagnosed as TIA in setting of negative Brain MRI for acute ischemic stroke, however it showed bilateral chronic small SDH. She continued on warfarin, then the repeated scan showed increased in the size if the right SDH (acute on chronic right SDH). The patient transferred to for further evaluation of the right acute on chronic SDH. ? On arrival to the , she is awake, alert, oriented x 3. Her exam (UE) is limited due to shoulders pain due to history of rotator cuff tear. Although the right side is weaker than the left side, but still she can move all the extremities antigravity. " Date of Admission: 10/18/2020 3:47:00 AM Demographics: Age: 75 Gender: Female Pertinent Past Medical History and Radiographics: Significant rehabilitation considerations: Per LISA "Past Medical History: Past Medical History: DiagnosisDate ?Chronic kidney disease? ?Crohn's disease? ?Ileostomy in place? ?Melanoma? ?MRSA (methicillin resistant staph aureus) culture [id number] ?RIGHT HAND, AFTER THE BUG BITE ?Multiple [id number] ?s/p bone marrow transplant ?Skin cancer? ? Past Surgical History: Past Surgical History: ProcedureLateralityDate ?APPENDECTOMY?1960 ?BASAL CELL CARCINOMA EXCISIONLeft? ?FOREHEAD ?COLONOSCOPY?? 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 Subdural hemorrhage along the bilateral superior frontoparietal convexities bilaterally, slightly more prominent and more posteriorly, likely related to redistribution without any significant change. No significant mass effect or midline shift. Pertinent Medications and Allergies: Significant rehabilitation considerations: Allergies: Vancomycin Rehabilitation Precautions/Restrictions: Moderate Fall Risk, DNR/DNI, OOB to chair, Swallowing/aspiration precautions SUBJECTIVE Patient Report: "I'm feeling pretty good" Premorbid Swallowing Function/Diet Textures: Premorbid Diet Textures: Regular. Thin Liquids. Current Diet Textures: NPO. Pending swallow evaluation Occupation: Retired Social History: Patient does not live alone. Patient lives with Patient reported that she lives in the downstairs portion of a 2 family home; her daughter and daughter's family live upstairs. . If needed: Pain: Patient currently complains of pain. Location: right shoulder . Patient describes pain as Nonspecific. Verbal Scale: Patient reports a pain level of 6 out of 10. Pain Medication Today: no. Goals: Patient's functional goals: "To go home" OBJECTIVE General Observation: Patient received reclined in bed, tolerated sitting upright for the duration of the evaluation. Patient reported that speech is "pretty much normal", however endorsed "garbled" speech when she was initially admitted to outside hospital. Bed alarm was on at start of session. Cognitive Status: Not formally assessed. Patient oriented x4 independently. Patient reported minimal changes in memory as of recently. Patient also reported that she independently completes financial and medication management at home, however did not report any difficulty managing these higher level tasks. Respiratory Support: Oxygen: 1 liters via nasal cannula Patient reported requiring between 2-2.5 Liters of oxygen via nasal cannula at home. Oral Motor Exam: Labial: WFL Lingual: WFL Soft Palate: WFL Dentition: Complete Dentures. Per chart review patient with right sided weakness, however not evident with oral motor examination Dysarthria: Patient does not exhibit a dysarthria. Consistencies Tested: Thin Liquid. 20 trials presented. Presented via Cup. No functional deficits noted with this consistency. Solid. 5 trials presented. Presented via by hand . Deficits noted in the Oral phase. minimally prolonged mastication Compensatory Strategies: Not tested. Outcome Measures: Functional Oral Intake Scale score: 7 - Total oral intake with no restrictions. Interventions: None provided today. Education: Educational needs: Cognitive functioning. Diet texture recommendations. Safety. Plan of care. Swallowing precautions. Goals of therapy. Barriers to Learning: Acuity of illness/injury. Learning Preference: patient did not specify Mode of education provided: Demonstration. Explanation. Audience: Patient. Nurse. Education Provided: Safety. Plan of care. Swallowing precautions. Role of speech language pathologist. Diet modifications. Response: Verbalized understanding. Needs practice/reinforcement. ASSESSMENT Response to Evaluation: The session was tolerated well. Patient demonstrated minimally prolonged yet functional mastication for regular solids and thin liquids. All trials were free from overt s/s consistent with aspiration/penetration. Patient reported right sided weakness; however did not appear to impact facial muscles for mastication. Recommend patient to initiate PO diet of regular solids and thin liquids. Although patient able to answer questions/follow instructions with accuracy, patient did self report changes in thinking (e.g. memory). Therefore, more formal cognitive testing may be appropriate in the near future to assess cognition. Bed alarm was on at end of session. Call gary was in patient's reach at end of session. Strengths: No previously documented history of dysphagia Diet Recommendations: Regular diet. Thin liquids. Swallow Precautions/Recommendations: Upright position. Small bite/sip. Aspiration Precautions Oral care as tolerated. Medication Recommendations: Take one at a time with liquid. Pain: Yes, pain is unchanged from start of today's treatment. Barriers to Progress/Discharge: Patient's progress may be impaired by the following potential barriers: Medical condition. The patient's therapy goals are based on limitations/impairments in the following areas: Swallowing. Cognition. Short Term Goals: 1. Within 1 week, patient will demonstrate tolerance to regular solids and thin liquids free from overt s/s consistent with aspiration/penetration in 100% of opportunities. Skilled Nursing Goals: 1. Within 2 weeks, patient will complete further cognitive testing to formally assess cognitive skills to ensure safe and functional return to prior living environment. PLAN Treatment Frequency, Duration and Interventions: Restorative Speech/Language Pathology services recommended for 2x a week for 2 weeks Intervention Considerations/Suggestions for Future Therapy Sessions: Ensure tolerance to regular solids and thin liquids. Consider formal cognitive testing, as patient reported changes in thinking (e.g. memory) as of recent. Equipment Provided: None issued this visit. Equipment Recommended: None. Recommended Speech Therapy Follow Up: Upon acute care discharge, the following is currently recommended: Depending upon progress in therapy during current hospital stay. Recommended Consults: None currently. Development of Plan of Care: Participants included: Nurse. Patient. Goal Review Visit Number: 1 Visit Number: Today's visit is number 1 Program: Stroke (Therapist may be reached on Neovacs) SESSION: Duration: 24 CHARGES: - ORDER - Speech Treatment 1 Units - ORDER - SPEECH THERAPY CONSULT 1 Units - STROKE VISIT 1 Units [id number] - CHARGE-CLINICAL SWALLOW 2 Units Total treatment minutes: 24.00 Minutes Electronically Signed by: Jennifer Gage MS, CCC-STRADDLE BUG DRIVER, 10/18/2020 9:12:53 AM Electronically signed by Interface, Received Via [facility] at 020 9:13 AM EST * Plan of Care - Stefany Stanford RN - 10/18/2020 8:21 AM EST Problem: Sensory Perception is less than 4 (< 4) Goal: Improve Sensory Perception Outcome: Progressing Problem: Moisture is less than 4 (< 4) Goal: Eliminate Moisture Outcome: Progressing Problem: Activity is less than 4 (< 4) Goal: Improve Activity Outcome: Progressing Problem: Mobility is less than 4 (< 4) Goal: Improve Mobility Outcome: Progressing Problem: Nutrition is Less than 3 (< 3) Goal: Improve Nutrition Outcome: Progressing Problem: Friction Shear is less than 3 (< 3) Goal: Eliminate Friction Shear Outcome: Progressing Problem: INJURY, RISK FOR Goal: Patient will not be injured from a fall during hospitalization Outcome: Progressing Problem: Knowledge Deficit Goal: Patient requires education regarding causes of high risk injury from a fal l Outcome: Progressing Goal: Patient's family requires education regarding causes of high risk injury f rom a fall Outcome: Progressing Problem: Risk for Falls Goal: No falls during hospitalization Description: Patient will not fall during hospitalization. Outcome: Progressing Problem: Knowledge Deficit Goal: Knowledge - personal safety Description: Patient will verbalize understanding of fall prevention. Outcome: Progressing * Plan of Care - Fer Pozo RN - 10/18/2020 6:36 AM EST Problem: Sensory Perception is less than 4 (< 4) Goal: Improve Sensory Perception Outcome: Progressing Problem: Moisture is less than 4 (< 4) Goal: Eliminate Moisture Outcome: Progressing Problem: Activity is less than 4 (< 4) Goal: Improve Activity Outcome: Progressing Problem: Mobility is less than 4 (< 4) Goal: Improve Mobility Outcome: Progressing Problem: Nutrition is Less than 3 (< 3) Goal: Improve Nutrition Outcome: Progressing Problem: Friction Shear is less than 3 (< 3) Goal: Eliminate Friction Shear Outcome: Progressing Problem: INJURY, RISK FOR Goal: Patient will not be injured from a fall during hospitalization Outcome: Progressing Problem: Knowledge Deficit Goal: Patient requires education regarding causes of high risk injury from a fal l Outcome: Progressing Goal: Patient's family requires education regarding causes of high risk injury f rom a fall Outcome: Progressing documented in this encounter Plan of Treatment Order Schedule Name Type Priority Associated Diag noses Daily for 30 Days starting 10/18/2020 un til 11/15/2020, 2 completed CBC and Differential Lab Routine Until Discontinued for 30 Days starting 10/19/2020 until 10/19/2020 Hemodialysis Inpatient Dialysis Routine Expected: 10/19/2020, Expires: 2 CT Head without Contrast Imaging Routine Subdu ral hematoma, nontraumatic Health Maintenance Due Date Last Done Comments Hepatitis C Screening (B. 1945 [id number]) MMR Vaccines (1 of 1 - 1946 [...] this topic documented as of this encounter Procedures Comments Procedure Name Priority Date/Time Associated Diag nosis CBC AND DIFFERENTIAL Routine 10/19/2020 4:18 AM EST BASIC METABOLIC PANEL Routine 10/19/2020 4:18 AM EST MR BRAIN WITHOUT CONTRAST Routine 10/18/2020 [id number] 6:16 PM EST EEG ROUTINE STUDY Routine 10/18/2020 4:00 PM EST RESPIRATORY PATHOGEN Routine 10/18/2020 PANEL 5:17 AM EST COVID-19 PCR Routine 10/18/2020 5:[address] HEAD WITHOUT CONTRAST STAT 10/18/2020 [id number] 4:55 AM EST PROTIME INR Routine 10/18/2020 4:26 AM EST CBC AND DIFFERENTIAL Routine 10/18/2020 4:26 AM EST TSH Routine 10/18/2020 4:26 AM EST PHOSPHORUS LEVEL Routine 10/18/2020 4:26 AM EST HEMOGLOBIN A1C Routine 10/18/2020 4:26 AM EST LIPID PANEL Routine 10/18/2020 4:26 AM EST COMPREHENSIVE METABOLIC Routine 10/18/2020 PANEL 4:26 AM EST documented in this encounter Results * CBC and Differential (10/19/2020 4:18 AM EST) White Blood 3.5 (L) 4 - 10 10*3/uL [facility] Cell [facility] Clin Pathology Red Blood Cell 3.01 (L) 4.1 - 5.3 10*6/uL [facility] Clin Pathology Hemoglobin 10.6 (L) 11.5 - 15.5 g/dL [facility] Clin Pathology Hematocrit 30.8 (L) 36 - 45 % [facility] Clin Pathology Mean Cell 102.5 (H) 80 - 96 fL [facility] Volume [facility] Clin Pathology Mean Cell 35.2 (H) 27 - 33 pg [facility] Hemoglobin [facility] Clin Pathology Mean Cell Hgb 34.4 32.0 - 36.0 g/dL [facility] Clin Pathology Red Cell Dist 16.5 (H) 11.5 - 14.5 % [facility] Clin Pathology Platelet Count 138 (L) 150 - 400 10*3/uL [facility] Pathology Differential Automated Diff [facility] Type [facility] Clin Pathology Neutrophil 53 % [facility] Clin Pathology Lymphocyte 34 % [facility] Clin Pathology Monocyte 10 % [facility] Clin Pathology Eosinophil 2 % [facility] Clin Pathology Basophil 1 % [facility] Clin Pathology Abs Neutrophil 1.89 1.8 - 7.0 10*3/uL [facility] Clin Pathology Abs Lymphocyte 1.22 1.2 - 4.0 10*3/uL [facility] Clin Pathology Abs Monocyte 0.35 0 - 0.8 10*3/uL [facility] Clin Pathology Abs Eosinophil 0.06 0 - 0.5 10*3/uL [facility] Clin Pathology Abs Basophil 0.02 0 - 0.2 10*3/uL [facility] Clin Pathology Nucleated Red 0 0 - 0 /100{WBCs} [facility] Blood Cells [facility] Clin Pathology Specimen EDTA Whole Blood Performing Organization Address City/[facility] Ph one Number [facility] [address] [place], [place] [address] PATHOLOGY [facility] [address] [place], [place] [address] Clin Pathology * Basic Metabolic Panel (10/19/2020 4:18 AM EST) Bicarbonate 21 (L) 22 - 29 mmol/L [facility] PATHOLOGY Chloride 104 98 - 107 mmol/L [facility] PATHOLOGY Creatinine 3.96 (H)Comment: Confirmed 0.50 - 0.90 mg/dL [facility] PATHOLOGY Glucose 80 70 - 140 mg/dL [facility] PATHOLOGY Potassium 4.2Comment: Hemolyzed 3.4 - 5.1 mmol/L [facility] Sodium 136 136 - 145 mmol/L [facility] PATHOLOGY Blood Urea 18Comment: Confirmed 8 - 23 mg/dL [facility] Nitrogen CLINICAL PATHOLOGY Anion Gap 11 8 - 15 mmol/L [facility] PATHOLOGY Osmolality, Isaac 282Comment: Confirmed 275 - 300 mosm/kg [facility] CLINICAL PATHOLOGY BUN/Cre Ratio 4Comment: Confirmed [facility] CLINICAL PATHOLOGY Calcium 8.7 (L) 8.8 - 10.2 mg/dL [facility] CLINICAL PATHOLOGY GFR Non 10 (L) >60 mL/min/1.73m2 [facility] 2008 CLINICAL CDK-EPI PATHOLOGY GFR 12 (L) >60 mL/min/1.73m2 [facility] 2008 CLINICAL CKD-EPI PATHOLOGY Specimen Plasma Performing Organization Address City/State/Zipcode Ph one Number [facility] [address] [place], [place] [address] PATHOLOGY * MR Brain without Contrast (10/18/2020 6:16 PM EST) Specimen Impressions Performed At IMPRESSION: [facility] No evidence of abnormal restricted diff usion to suggest acute infarct. Bilateral subdural hemorrhages along fr ontal parietal convexities, right larger than left. Subdural hemorrhage along po sterior falx and bilateral tentorium. No new hemorrhage. Narrative Performed At [facility] 10/18/2020 5:45 PM MR BRAIN WITHOUT CONTRAST [id number] ORDERING CLINICAL INFORMATION: 75-year- old female with history of garbled speech and right sided weakness found to have an acute on chronic subdural hematoma, as per medical record. ADDITIONAL CLINICAL INFORMATION: History of multiple myeloma. MR IMAGING OF THE BRAIN WITHOUT CONTRAS T PROCEDURE: MR images were acquired usin g multiple sequences in multiple planes. COMPARISON: CT head dated 10/18/2020 FINDINGS: Images are degraded by motion artifact There is redemonstration of bilateral s ubdural hemorrhages along the frontoparietal convexities, right large r than left. There is also redemonstration of subdur al hemorrhage along the posterior falx and bilateral tentorium. No abnormal restricted diffusion is see n to suggest acute infarct. Scattered T2/FLAIR hyperintensities are seen in subcortical and periventricular white matter, likely suggestive of smal l vessel disease. No evidence of acute infarct or intracr anial mass. Ugalde-white matter differentiation preserved Midline struc tures including corpus callosum and cerebellar tonsils are normal. Appropriate signal void indicating pat ency by spin-echo criteria is seen along the major intracranial vessels and dura l sinuses. The ventricles, sulci and fissures are normal in size and configuration . Mucosal thickening is noted in bilatera l maxillary sinuses. Opacification of bilateral mastoid air cells is seen. The orbits are normal. Procedure Note Interface, Received Via [employer] System - 10/19/2020 8:41 AM EST 10/18/2020 5:45 PM MR BRAIN WITHOUT CONTRAST [id number] ORDERING CLINICAL INFORMATION: 75-year-old female with history of garbled speech and right sided weakness found to have an acute on chronic subdural hematoma, as per medical record. ADDITIONAL CLINICAL INFORMATION: History of multiple myeloma. MR IMAGING OF THE BRAIN WITHOUT CONTRAST PROCEDURE: MR images were acquired using multiple sequences in multiple planes. COMPARISON: CT head dated 10/18/2020 FINDINGS: Images are degraded by motion artifact There is redemonstration of bilateral subdural hemorrhages along the frontoparietal convexities, right larger than left. There is also redemonstration of subdural hemorrhage along the posterior falx and bilateral tentorium. No abnormal restricted diffusion is seen to suggest acute infarct. Scattered T2/FLAIR hyperintensities are seen in subcortical and periventricular white matter, likely suggestive of small vessel disease. No evidence of acute infarct or intracranial mass. Ugalde-white matter differentiation preserved Midline structures including corpus callosum and cerebellar tonsils are normal. Appropriate signal void indicating patency by spin-echo criteria is seen along the major intracranial vessels and dural sinuses. The ventricles, sulci and fissures are normal in size and configuration . Mucosal thickening is noted in bilateral maxillary sinuses. Opacification of bilateral mastoid air cells is seen. The orbits are normal. IMPRESSION: No evidence of abnormal restricted diffusion to suggest acute infarct. Bilateral subdural hemorrhages along frontal parietal convexities, right larger than left. Subdural hemorrhage along posterior falx and bilateral tentorium. No new hemorrhage. Performing Organization Address City/State/[facility] Ph one Number [facility] [address] [place] [address] * EEG Routine Study (10/18/2020 4:00 PM EST) Narrative Performed At Severo Fung MD EXTERNAL NON-INTERFACED LAB 10/18/2020 8:22 PM EEG REPORT NUMBER [id number] DATE OF PROCEDURE: 10/18/2020 HISTORY: Yoana Escobedo is a 75 y.o. female wit h a history of acute on chronic right subdural hematoma EEG is to evaluate for seizures and/or epilepsy. No current facility-administered medica tions on file prior to encounter. Current Outpatient Medications on File Prior to Encounter Medication Sig Dispense Refill acetaminophen (TYLENOL) 500 MG tablet Take 500 mg by mouth as needed for Pain Cholecalciferol (VITAMIN D-3 PO) Take 1 tablet by mouth every morning cycloSPORINE (RESTASIS) 0.05 % ophtha lmic emulsion Place 1 drop into both eyes every 12 (twelve) hours. dexamethasone (DECADRON) 4 MG tablet TAKE TEN TABLETS BY MOUTH EVERY DAY ON DAYS 1 8 15 22 EACH CYCLE/ TAKES 3tab with meals on days 1,8,15,22 11 diphenhydrAMINE (BENADRYL) 25 mg caps ule Take 25 mg by mouth as needed for Itching (PRIOR DIALYSYS) fish oil-omega-3 fatty acids 1000 MG capsule Take 2 g by mouth daily with lunch ixazomib (NINLARO) capsule Take 3 mg by mouth Indications: 1 cap on day 1,8,15 2 hrs after meal levothyroxine (SYNTHROID, LEVOTHROID) 50 MCG tablet Take 50 mcg by mouth every morning loperamide (IMODIUM) 2 MG capsule Mike e 2 mg by mouth as needed for Diarrhea Multiple Vitamin (MULTIVITAMIN) capsu le Take 1 capsule by mouth daily. oxycodone-acetaminophen (PERCOCET) 5- 325 MG per tablet Take 1 tablet by mouth every 4 (four) hours as needed for Pain pancrelipase, Hoi-Peyk-Tsra, (CREON) 29689 units CPEP capsule Take 2 capsules by mouth Three times da zoraida with meals 1 capsule with snack 720 capsule 3 sevelamer (RENVELA) 800 MG tablet Mike e 1,600 mg by mouth 3 (three) times daily with meals. warfarin (COUMADIN) 5 MG tablet TAKE ONE AND ONE HALF TABLETS BY MOUTH EVERY DAY/ EVENING 2 Scheduled Meds: levothyroxine 75 mcg Oral Daily [START ON 10/19/2020] lidocaine 1 patch Transdermal Daily LORazepam 1 mg Oral Once sodium chloride 500 mL Intravenous Once sodium chloride 500 mL Intravenous Once Continuous Infusions: PRN Meds:.heparin (porcine) TECHNICAL DESCRIPTION: This digital EEG was recorded using 2 EKG and 21 scalp and/or ear electrodes. It was reviewed in referential and bipolar montages follow ing reformatting in the 10-20 International electrode placement system. In her best awake and alert state, the background consists of a symmetric, waxing and waning, 30-90 javy rovolt, 7-8 Hz posterior dominant rhythm that attenuates with ey e opening. Faster frequencies including 5-10 micro volts, 15 to 25 Hz activity are seen in the frontal leads. During drowsiness, there is drop out of alpha, slow rolling eye movements and increased theta and delta slowing , but full sleep is not achieved during this recording. Hyperventilation was not performed Photic stimulation with flash frequenci es of 2-21 Hz didn't show photoparoxysmal response EKG review reveals no significant arrhy thmia CLINICAL IMPRESSION: This routine EEG d one in the awake and drowsy states supports the diagnosis of mild encephalopathy. No epileptiform discharges or EEG seizures were seen. Jose Ny MD PGY 5 Clinical Neurophysiology Fellow I, Dr. Darya Fung, certify that I reviewe d this study with the resident, and agree with the findings i n their note. Performing Organization Address City/State/[facility] Ph one Number EXTERNAL NON-INTERFACED LAB * Respiratory Pathogen Panel (10/18/2020 5:17 AM EST) Special Request None [facility] Clin Pathology Respiratory PCR PCR Results [facility] Panel [facility] Clin Pathology Culture/Results See Labs Tab for 2019 nCoV [facility] RT-PCR results [facility] Clin Pathology Adenovirus Not Detected [facility] Clin Pathology Coronavirus Not Detected [facility] 229E [facility] Clin Pathology Coronavirus Not Detected [facility] HKU1 [facility] Clin Pathology Coronavirus Not Detected [facility] NL63 [facility] Clin Pathology Coronavirus Not Detected [facility] OC43 [facility] Clin Pathology Human Not Detected [facility] Metapneumovirus [facility] Clin Pathology Rhinovirus/ Not Detected [facility] Enterovirus [facility] Clin Pathology Influenza A Not Detected [facility] Pathology Influenza B Not Detected [facility] Pathology Parainfluenza Not Detected [facility] virus 1 [facility] Pathology Parainfluenza Not Detected [facility] virus 2 [facility] Pathology Parainfluenza Not Detected [facility] virus 3 [facility] Pathology Parainfluenza Not Detected [facility] virus 4 [facility] Pathology RSV Not Detected [facility] Pathology Bordetella Not Detected [facility] pertussis [facility] Pathology Chlamydia Not Detected [facility] pneumoniae [facility] Pathology Mycoplasma Not Detected [facility] pneumoniae [facility] Clin Pathology Bordetella Not Detected [facility] parapertussis [facility] Clin Pathology Specimen Nasopharyngeal Swab Performing Organization Address [facility] one Number [facility] [address] [place], [place] [address] PATHOLOGY [facility] [address] [place], [place] [address] Clin Pathology * COVID-19 PCR (10/18/2020 5:17 AM EST) Specimen Nasopharyngeal Swab [facility] Description CLINICAL PATHOLOGY SARS CoV-2 2019 nCoV Real-Time RT-PCR: 2019 nCoV Real-Juan M e [facility] NOT DETECTED RT-PCR: NOT DETECTED [facility] Clin Pathology Assay performed Test performed using [employer] Respiratory Panel. This test [facility] is only for use under Food and Pathology Drug Administration's Emergency Use Authorization. Additional information is available on the following FDA websites for healthcare providers and patients. https://www.fda.gov/media/1349 20/download, https://www.fda.gov/media/1349 21/download First COVID-19 NO [facility] Test? CLINICAL PATHOLOGY Employed in [facility] CLINICAL setting? PATHOLOGY Symptomatic for NO [facility] COVID-19 as CLINICAL defined by CDC? PATHOLOGY Date of symptom UNKNOWN [facility] onset? CLINICAL ([id number]) PATHOLOGY Hospitalized [facility] for COVID-19? CLINICAL PATHOLOGY Admitted to ICU UNKNOWN [facility] for COVID-19? CLINICAL PATHOLOGY Resident in a [facility] CLINICAL (group) care PATHOLOGY setting? ? NO [facility] CLINICAL PATHOLOGY Specimen Nasopharyngeal Swab Performing Organization Address [facility] one Number [facility] [address] [place], [place] [address]1 PATHOLOGY [facility] [address] [place], [place] [address] Clin Pathology * CT Head without Contrast (10/18/2020 4:55 AM EST) Specimen Impressions Performed At Impression: [facility] Subdural hemorrhage along the bilateral superior frontoparietal convexities bilaterally, slightly more prominent an d more posteriorly, likely related to redistribution without any significant change. No significant mass effect or midline shift. Narrative Performed At Clinical Indication: SDH. [facility] Technique: Contiguous axial CT images o f the head were acquired from the base of the skull to the vertex without intrave nous contrast administration. Images were viewed in brain, subdural and bone wind ows. Automated dose lowering techniques and/or adjustment according to patient size were utilized for this exam. Comparison: CT examination from outside institution dated 10/17/2020 at 10:36 PM Findings: There is redemonstration of an acute bi lateral subdural hemorrhages along the superior frontoparietal convexities, ri ght side larger than left measuring approximately 5 mm in greatest dimensio n, this is not significantly changed in size compared to previous examination. Additionally, there is subdural hemorrhage noted along the posterior fa lx and bilateral tentorium, not significantly changed. No acute intracr anial hemorrhage. No territorial infarction. No significant mass effect or midline shift. The basal cisterns remain patent. The ventricles are uncha nged in size. Mucosal thickening of the paranasal sin uses. The mastoid air cells are clear. The calvaria is intact. Procedure Note Interface, Received Via [employer] System - 10/18/2020 6:48 AM EST Clinical Indication: SDH. Technique: Contiguous axial CT images of the head were acquired from the base of the skull to the vertex without intravenous contrast administration. Images were viewed in brain, subdural and bone windows. Automated dose lowering techniques and/or adjustment according to patient size were utilized for this exam. Comparison: CT examination from outside institution dated 10/17/2020 at 10:36 PM Findings: There is redemonstration of an acute bilateral subdural hemorrhages along the superior frontoparietal convexities, right side larger than left measuring approximately 5 mm in greatest dimension, this is not significantly changed in size compared to previous examination. Additionally, there is subdural hemorrhage noted along the posterior falx and bilateral tentorium, not significantly changed. No acute intracranial hemorrhage. No territorial infarction. No significant mass effect or midline shift. The basal cisterns remain patent. The ventricles are unchanged in size. Mucosal thickening of the paranasal sinuses. The mastoid air cells are clear. The calvaria is intact. Impression: Subdural hemorrhage along the bilateral superior frontoparietal convexities bilaterally, slightly more prominent and more posteriorly, likely related to redistribution without any significant change. No significant mass effect or midline shift. Performing Organization Address City/State/Zipcode Ph one Number [facility] [address] [place] [address] * Phosphorus Level (10/18/2020 4:26 AM EST) Phosphorus 5.9 (H) 2.5 - 4.5 mg/dL [facility] CLINICAL PATHOLOGY Specimen Plasma Performing Organization Address [facility] one Number [address] 132[address] PATHOLOGY * Protime-INR (10/18/2020 4:26 AM EST) PT Patient 15.7 (H) 12.5 - 14.9 s [facility] Clin Pathology Int'l 1.23Comment: Routine intensity [facility] Normalized oral anticoagulation INR is Med [facility] Clin Ratio typically 2.0-3.0. Target INR Patholo gy must be clinically individualized. Specimen Plasma Performing Organization Address [facility] one Number [address] [address] Clin Pathology * CBC and Differential (10/18/2020 4:26 AM EST) White Blood 4.7 4 - 10 10*3/uL [facility] Cell [facility] Clin Pathology Red Blood Cell 2.92 (L) 4.1 - 5.3 10*6/uL [facility] Clin Pathology Hemoglobin 10.4 (L) 11.5 - 15.5 g/dL [facility] Pathology Hematocrit 30.0 (L) 36 - 45 % [facility] Pathology Mean Cell 102.7 (H) 80 - 96 fL [facility] Volume [facility] Clin Pathology Mean Cell 35.5 (H) 27 - 33 pg [facility] Hemoglobin [facility] Clin Pathology Mean Cell Hgb 34.6 32.0 - 36.0 g/dL [facility] Conc [facility] Clin Pathology Red Cell Dist 16.5 (H) 11.5 - 14.5 % [facility] Width [facility] Clin Pathology Platelet Count 163 150 - 400 10*3/uL [facility] Clin Pathology Differential Automated Diff [facility] Type [facility] Clin Pathology Neutrophil 58 % [facility] Pathology Lymphocyte 28 % [facility] Pathology Monocyte 12 % [facility] Clin Pathology Eosinophil 2 % [facility] Clin Pathology Basophil 0 % [facility] Clin Pathology Abs Neutrophil 2.78 1.8 - 7.0 10*3/uL [facility] Clin Pathology Abs Lymphocyte 1.31 1.2 - 4.0 10*3/uL [facility] Clin Pathology Abs Monocyte 0.56 0 - 0.8 10*3/uL [facility] Clin Pathology Abs Eosinophil 0.07 0 - 0.5 10*3/uL [facility] Clin Pathology Abs Basophil 0.01 0 - 0.2 10*3/uL [facility] Clin Pathology Nucleated Red 0 0 - 0 /100{WBCs} [facility] Blood Cells [facility] Clin Pathology Specimen EDTA Whole Blood Performing Organization Address [facility] one Number [facility] [address] [place] [address] PATHOLOGY [facility] [address] [place], [place] [address] Clin Pathology * TSH (10/18/2020 4:26 AM EST) TSH 0.532 0.270 - 4.200 [facility] u[IU]/mL CLINICAL PATHOLOGY Specimen Plasma Performing Organization Address [facility] one Number [address] 1321 PATHOLOGY * Hemoglobin A1c (10/18/2020 4:26 AM EST) Hemoglobin A1C 4.7 4.0 - 6.0 % [facility] Comment: CLINICAL (NOTE) PATHOLOGY <5.7% Average risk of diabetes(ADA) 5.7-6.4% Increased risk of diabetes(ADA) >/= 6.5% Diagnostic for diabetes(ADA) Estimated Avg 88 <126 mg/dL [facility] Glucose CLINICAL PATHOLOGY Specimen Whole Blood Performing Organization Address [facility] one Number [address] 1321 PATHOLOGY * Lipid panel (10/18/2020 4:26 AM EST) Cholesterol 124 <200 mg/dL [facility] PATHOLOGY Triglyceride 87 <150 mg/dL [facility] PATHOLOGY HDL Cholesterol 73 >50 mg/dL [facility] PATHOLOG[facility] LDL Cholesterol 34 <100 mg/dL [facility] CLINICAL PATHOLOGY VLDL 17 16 - 42 mg/dl [facility] Cholesterol CLINICAL PATHOLOGY Non HDL 51 <130 mg/dL [facility] Cholesterol CLINICAL PATHOLOGY Specimen Plasma Performing Organization Address [facility] [place] Ph one Number [facility] CLINICAL [address] [place], [place] [address] PATHOLOGY * Comprehensive Metabolic Panel (10/18/2020 4:26 AM EST) Albumin 4.0 3.5 - 5.2 g/dL [facility] CLINICAL PATHOLOGY Bilirubin, 1.0 <1.2 mg/dL [facility] Total CLINICAL PATHOLOGY Calcium 8.8 8.8 - 10.2 mg/dL [facility] CLINICAL PATHOLOGY Chloride 97 (L) 98 - 107 mmol/L [facility] PATHOLOGY Creatinine 6.68 (H) 0.50 - 0.90 mg/dL [facility] PATHOLOGY Glucose 87 70 - 140 mg/dL [facility] CLINICAL PATHOLOGY Alkaline 48 35 - 104 U/L [facility] Phosphatase CLINICAL PATHOLOGY Potassium 4.8Comment: Hemolyzed 3.4 - 5.1 mmol/L [facility] Total Protein 5.8 (L) 6.4 - 8.3 g/dL [facility] CLINICAL PATHOLOGY Sodium 136 136 - 145 mmol/L [facility] CLINICAL PATHOLOGY AST/SGO 26Comment: Hemolyzed <32 U/L [facility] CLINICAL PATHOLOGY Blood Urea 36 (H) 8 - 23 mg/dL [facility] Nitrogen CLINICAL PATHOLOGY Osmolality, Isaac 290 275 - 300 mosm/kg [facility] CLINICAL PATHOLOGY BUN/Cre Ratio 5 [facility] CLINICAL PATHOLOGY Bicarbonate 25 22 - 29 mmol/L [facility] PATHOLOGY ALT/SGP 15Comment: Hemolyzed <33 U/L [facility] CLINICAL PATHOLOGY Anion Gap 14 8 - 15 mmol/L [facility] CLINICAL PATHOLOGY GFR Non 6 (L) >60 mL/min/1.73m2 [facility] [employer] 2008 CLINICAL CDK-EPI PATHOLOGY GFR 6 (L) >60 mL/min/1.73m2 [facility] 2008 CLINICAL CKD-EPI PATHOLOGY Specimen Plasma Performing Organization Address City/[facility] Ph one Number [facility] [address] [place], [place] [address] PATHOLOGY documented in this encounter Visit Diagnoses Diagnosis Subdural hematoma, nontraumatic - Prima ry Subdural hemorrhage ESRD (end stage renal disease) on dialy sis End stage renal disease Anemia of chronic renal failure, stage 5 Hypotension of hemodialysis Encounter for hemodialysis for end-stag e renal disease Encounter for extracorporeal dialysis History of melanoma Personal history of malignant melanoma of skin Multiple myeloma Multiple myeloma, without mention of pastor ving achieved remission Crohn's disease Regional enteritis of unspecified site Ileostomy in place Ileostomy status Right sided weakness Muscle weakness (generalized) Impaired mobility Other ill-defined conditions Essential hypertension Unspecified essential hypertension Hypothyroidism Unspecified hypothyroidism Chronic obstructive pulmonary disease Chronic airway obstruction, not elsewhe re classified 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 Acute venous embolism and thrombosis of other thoracic veins Anticoagulated by anticoagulation treat ment Encounter for long-term (current) use o f anticoagulants documented in this encounter Administered Medications Action Date Dose Rate Site Medication Order MAR Action 10/18/2020 12:38 PM EST 4,000 Units heparin (porcine) 1000 units/mL Given injection 2,000 Units 2,000 Units, Intracatheter, PRN, Other, Starting Fri10/18/20 at 0804, For 14 days, 3K BATH = K 3-4.5 : 2K BATH = K 4.6-5.7 : IF K<3 OR >5.7 NOTIFY Minimum systolic BP : 90 mmHG The mold operator may lower the net fluid removal to 0 and may give 200 cc NS Bolus (upto 3 boluses) for hypotention as defined by floor BP shown below. Isaac l MD after the 3rd bolus., 10/19/2020 5:19 AM EST 75 mcg levothyroxine (SYNTHROID) tablet 75 mcg Given 75 mcg, Oral, Daily at 0600, First dose on Fri10/18/20 at 0600, For 30 days 75 mcg Given 10/18/2020 6:52 AM EST lidocaine (LIDODERM) 5 % patch 1 patch 1 patch, Transdermal, Daily Standard, First dose on Fri10/19/20 at 0900, For 3 days, Apply to shoulders or upper back. 12 hours on - 12 hours off, pancrelipase (Fsg-Hhcw-Shdm) (CREON) capsule 36,000 units of lipase 36,000 units of lipase, Oral, PRN, snacks, Starting Fri10/18/20 at 1639, For 30 days pancrelipase (Zws-Zjzo-Znok) (CREON) capsule 72,000 units of lipase 72,000 units of lipase, Oral, Three Times Daily-With Meals, First dose on Urszula 10/19/20 at 1800, For 30 days 10/19/2020 12:29 PM EST 1,600 mg sevelamer (RENAGEL) tablet 1,600 mg Given 1,600 mg, Oral, Three Times Daily-With Meals, First dose on Fri10/18/20 at 1800, For 3 days, Give with meals, 1,600 mg Given 10/19/2020 8:17 AM EST Action Date Dose Rate Site Medication Order MAR Action 10/18/2020 5:14 PM EST 1 mg LORazepam (ATIVAN) tablet 1 mg Given 1 mg, Oral, 1 TIME IMAGING, Fri 0 at 1330, For 1 dose, Give prior to MRI. May crush tab if unable to swollow, 10/19/2020 12:29 PM EST 72,000 units of lipase pancrelipase (Cce-Vszd-Dovk) (CREON) Given capsule 72,000 units of lipase 72,000 units of lipase, Oral, Three Times Daily-With Meals, First dose (after last modification) on Fri10/18/20 at 1800, For 30 days 72,000 units of lipase Given 10/19/2020 8:17 AM EST 10/18/2020 1:03 PM EST 500 mLs 999 mL/hr sodium chloride 0.9 % bolus 500 mL New Bag 500 mL, Intravenous, Once, Fri10/18/20 at 1300, For 1 dose documented in this encounter Additional Health Concerns Last Indicated Resolved Time Infection Onset Date 03/23/2019 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
--- OUTSIDE RECORDS SUMMARY | 2020-12-22 10:02 | CCD | Summary of Care ---
Author Author [facility] Organization [facility] Address Unknown Phone Unavailable Care Team Providers Care Sports Editor Name Role Phone Isma Herrera MD PCP Encounter Details Care Team Description Date Type Department 10/16/2020 [facility] TRANSFER CE NTER Encounter [address] [place] [address] Allergies Comments Active Allergy Reactions Severity Noted Date Vancomycin Itching, Rash Medium 03/23/2019 documented as of this encounter (statuses as of 10/31/2020) Medications End Date Status Medication Sig Dispensed [...] Active pancrelipase, Take 2 720 capsule 3 Brd-Ghpo-Dzkk, (CREON) capsules by 9 [address]268 units CPEP capsule mouth Three times daily with meals 1 capsule with snack documented as of this encounter (statuses as of 10/31/2020) Active Problems Problem Noted Date Essential hypertension 10/07/2014 History of melanoma 07/11/2014 [...] as of this encounter (statuses as of 10/31/2020) Social History Date Tobacco Use Types Packs/Day [...] Signs Not on filedocumented in this encounter Plan of Treatment Care Team Description Date Type Specialty 11/08/2020 Telemedicine Surgery Health Maintenance Due Date Last Done Comments Hepatitis C Screening (B. 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
[2020-12-22 10:03] LABS: EOS # 0.1 10^3/uL (0.0-0.5)
--- OUTSIDE RECORDS SUMMARY | 2020-12-22 10:03 | CCD ---
Author Author [facility] Organization [facility] Address Unknown Phone Unavailable Care Team Providers Care Adult Specialist Name Role Phone Roly Licona MD Unavailable Unavailable Roly Licona MD Unavailable Unavailable Roly Licona MD Unavailable Unavailable Roly Licona MD Unavailable Unavailable Roly Licona MD Unavailable Unavailable Roly Licona MD Unavailable Unavailable Roly Licona MD Unavailable Unavailable Roly Licona MD Unavailable Unavailable Roly Licona MD Unavailable Unavailable Roly Licona MD Unavailable Unavailable Roly Licona MD Unavailable Unavailable Roly Licona MD Unavailable Unavailable Roly Licona MD Unavailable Unavailable Roly Licona MD Unavailable Unavailable Roly Licona MD Unavailable Unavailable Roly Licona MD Unavailable Unavailable Roly Licona MD Unavailable Unavailable Roly Licona MD Unavailable Unavailable Roly Licona MD Unavailable Unavailable Roly Licona MD Unavailable Unavailable Roly Licona MD Unavailable Unavailable Roly Licona MD Unavailable Unavailable Roly Licona MD Unavailable Unavailable Roly Licona MD Unavailable Unavailable Roly Licona MD Unavailable Unavailable Roly Licona MD Unavailable Unavailable Roly Licona MD Unavailable Unavailable Roly Licona MD Unavailable Unavailable Roly Licona MD Unavailable Unavailable Roly Licona MD Unavailable Unavailable Roly Licona MD Unavailable Unavailable Roly Licona MD Unavailable Unavailable Roly Licona MD Unavailable Unavailable Roly Licona MD Unavailable Unavailable Roly Licona MD Unavailable Unavailable Livan, S Hilario BOGGS Unavailable Unavailable LivanRoly yeung MD Unavailable Unavailable Livan S Hilario BOGGS Unavailable Unavailable LivanRoly yeung MD Unavailable Unavailable Roly Licona MD Unavailable Unavailable Roly Licona MD Unavailable Unavailable Roly Licona MD Unavailable Unavailable Livan S Hilario BOGGS Unavailable Unavailable Roly Licona MD Unavailable Unavailable Roly Licona MD Unavailable Unavailable Roly Licona MD Unavailable Unavailable Roly Licona MD Unavailable Unavailable Roly Licona MD Unavailable Unavailable Roly Licona MD Unavailable Unavailable Roly Licona MD Unavailable Unavailable Cederstrand, Shyann France MD Unavailable Unavailable Cederstrand, Shyann France MD Unavailable Unavailable Cederstrand, Shyann France MD Unavailable Unavailable Cederstrand, Shyann France MD Unavailable Unavailable Cederstrand, Shyann France MD Unavailable Unavailable Cederstrand, Shyann France MD Unavailable Unavailable Cederstrand, Shyann France MD Unavailable Unavailable Cederstrand, Shyann France MD Unavailable Unavailable Cederstrand, Shyann France MD Unavailable Unavailable Cederstrand, Shyann France MD Unavailable Unavailable Cederstrand, Shyann France MD Unavailable Unavailable Cederstrand, Shyann France MD Unavailable Unavailable Cederstrand, Shyann France MD Unavailable Unavailable Cederstrand, Shyann France MD Unavailable Unavailable Cederstrand, Shyann France MD Unavailable Unavailable OZDEN, NURI Unavailable Unavailable OZDEN, NURI Unavailable Unavailable OZDEN, NURI Unavailable Unavailable OZDEN, NURI Unavailable Unavailable OZDEN, NURI Unavailable Unavailable OZDEN, NURI Unavailable Unavailable OZDEN, NURI Unavailable Unavailable OZDEN, NURI Unavailable Unavailable OZDEN, NURI Unavailable Unavailable OZDEN, NURI Unavailable Unavailable OZDEN, NURI Unavailable Unavailable OZDEN, NURI Unavailable Unavailable OZDEN, NURI Unavailable Unavailable OZDEN, NURI Unavailable Unavailable OZDEN, NURI Unavailable Unavailable OZDEN, NURI Unavailable Unavailable OZDEN, NURI Unavailable Unavailable OZDEN, NURI Unavailable Unavailable OZDEN, NURI Unavailable Unavailable OZDEN, NURI Unavailable Unavailable OZDEN, NURI Unavailable Unavailable OZDEN, NURI Unavailable Unavailable OZDEN, NURI Unavailable Unavailable OZDEN, NURI Unavailable Unavailable OZDEN, NURI Unavailable Unavailable OZDEN, NURI Unavailable Unavailable OZDEN, NURI Unavailable Unavailable OZDEN, NURI Unavailable Unavailable OZDEN, NURI Unavailable Unavailable OZDEN, NURI Unavailable Unavailable OZDEN, NURI Unavailable Unavailable OZDEN, NURI Unavailable Unavailable OZDEN, NURI Unavailable Unavailable OZDEN, NURI Unavailable Unavailable OZDEN, NURI Unavailable Unavailable OZDEN, NURI Unavailable Unavailable OZDEN, NURI Unavailable Unavailable OZDEN, NURI Unavailable Unavailable OZDEN, NURI Unavailable Unavailable OZDEN, NURI Unavailable Unavailable OZDEN, NURI Unavailable Unavailable OZDEN, NURI Unavailable Unavailable OZDEN, NURI Unavailable Unavailable OZDEN, NURI Unavailable Unavailable OZDEN, NURI Unavailable Unavailable OZDEN, NURI Unavailable Unavailable OZDEN, NURI Unavailable Unavailable OZDEN, NURI Unavailable Unavailable OZDEN, NURI Unavailable Unavailable Adelina Scott MD Unavailable Unavailable Adelina Scott MD Unavailable Unavailable Adelina Scott MD Unavailable Unavailable Adelina Scott MD Unavailable Unavailable Adelina Scott MD Unavailable Unavailable Adelina Scott MD Unavailable Unavailable Adelina Scott MD Unavailable Unavailable Adelina Scott MD Unavailable Unavailable Adelina Scott MD Unavailable Unavailable Adelina Scott MD Unavailable Unavailable Adelina Scott MD Unavailable Unavailable Adelina Scott MD Unavailable Unavailable Adelina Scott MD Unavailable Unavailable Adelina Scott MD Unavailable Unavailable Adelina Scott MD Unavailable Unavailable Adelina Scott MD Unavailable Unavailable Adelina Scott MD Unavailable Unavailable Josefina Scotttech Unavailable Unavailable Adelina Scott MD Unavailable Unavailable Adelina Scott MD Unavailable Unavailable Adelina Scott MD Unavailable Unavailable Adelina Scott MD Unavailable Unavailable Deven Scottjtech Unavailable Unavailable Deven Scottjtech Unavailable Unavailable Deven Scottjtech Unavailable Unavailable Josefina Scotttech Unavailable Unavailable Adelina Scott MD Unavailable Unavailable Slezka, Adelina BOGGS Unavailable Unavailable Adelina Scott MD Unavailable Unavailable Adelina Scott MD Unavailable Unavailable Adelina Scott MD Unavailable Unavailable Adelina Scott MD Unavailable Unavailable Adelina Scott MD Unavailable Unavailable Adelina Scott MD Unavailable Unavailable Adelina Scott MD Unavailable Unavailable Adelina Scott MD Unavailable Unavailable Adelina Scott MD Unavailable Unavailable Adelina Scott MD Unavailable Unavailable Adelina Scott MD Unavailable Unavailable Adelina Scott MD Unavailable Unavailable Adelina Scott MD Unavailable Unavailable Adelina Scott MD Unavailable Unavailable Adelina Scott MD Unavailable Unavailable Adelina Scott MD Unavailable Unavailable Adelina Scott MD Unavailable Unavailable Adelina Scott MD Unavailable Unavailable Adelina Scott MD Unavailable Unavailable Adelina Scott MD Unavailable Unavailable Adelina Scott MD Unavailable Unavailable Adelina Scott MD Unavailable Unavailable Adelina Scott MD Unavailable Unavailable Adelina Scott MD Unavailable Unavailable Adelina Scott MD Unavailable Unavailable Adelina Scott MD Unavailable Unavailable Adelina Scott MD Unavailable Unavailable Adelina Scott MD Unavailable Unavailable Adelina Scott MD Unavailable Unavailable Adelina Scott MD Unavailable Unavailable Trickey, J Katalina PA Unavailable Unavailable Trickey, J Katalina PA Unavailable Unavailable Trickey, J Katalina PA Unavailable Unavailable Trickey, J Katalina PA Unavailable Unavailable Trickey, J Katalina PA Unavailable Unavailable Trickey, J Katalina PA Unavailable Unavailable Trickey, J Katalina PA Unavailable Unavailable Trickey, J Katalina PA Unavailable Unavailable Trickey, J Katalina PA Unavailable Unavailable Trickey, J Katalina PA Unavailable Unavailable Trickey, J Katalina PA Unavailable Unavailable Trickey, J Katalina PA Unavailable Unavailable Trickey, J Katalina PA Unavailable Unavailable Trickey, J Katalina PA Unavailable Unavailable Trickey, J Katalina PA Unavailable Unavailable Trickey, J Katalina PA Unavailable Unavailable Trickey, J Katalina PA Unavailable Unavailable Trickey, J Katalina PA Unavailable Unavailable Trickey, J Katalina PA Unavailable Unavailable Trickey, J Katalina PA Unavailable Unavailable Trickey, J Katalina PA Unavailable Unavailable Trickey, J Katalina PA Unavailable Unavailable Trickey, J Katalina PA Unavailable Unavailable Trickey, J Katalina PA Unavailable Unavailable Trickey, J Katalina PA Unavailable Unavailable Trickey, J Katalina PA Unavailable Unavailable Trickey, J Katalina PA Unavailable Unavailable Trickey, J Katalina PA Unavailable Unavailable Trickey, J Katalina PA Unavailable Unavailable Trickey, J Katalina PA Unavailable Unavailable Trickey, J Katalina PA Unavailable Unavailable Trickey, J Katalina PA Unavailable Unavailable Trickey, J Katalina PA Unavailable Unavailable Trickey, J Katalina PA Unavailable Unavailable Trickey, J Katalina PA Unavailable Unavailable Trickey, J Katalina PA Unavailable Unavailable Trickey, J Katalina PA Unavailable Unavailable Trickey, J Katalina PA Unavailable Unavailable Trickey, J Katalina PA Unavailable Unavailable Trickey, J Katalina PA Unavailable Unavailable Trickey, J Katalina PA Unavailable Unavailable Trickey, J Katalina PA Unavailable Unavailable Trickey, J Katalina PA Unavailable Unavailable Trickey, J Katalina PA Unavailable Unavailable Trickey, J Katalina PA Unavailable Unavailable Trickey, J Katalina PA Unavailable Unavailable Trickey, J Katalina PA Unavailable Unavailable Trickey, J Katalina PA Unavailable Unavailable SUSIELELGIN MCCLURE PA Unavailable Unavailable SUSIELHERELGIN NUNEZ PA Unavailable Unavailable SUSIELELGIN MCCLURE PA Unavailable Unavailable MCELHERELGIN NUNEZ PA Unavailable Unavailable MCELHERELGIN NUNEZ PA Unavailable Unavailable MCELHERELGIN NUNEZ PA Unavailable Unavailable MCELHERELGIN NUNEZ PA Unavailable Unavailable MCELELGIN MCCULRE PA Unavailable Unavailable MCELELGIN MCCLURE PA Unavailable Unavailable MCELELGIN MCCLURE PA Unavailable Unavailable MCELELGIN MCCLURE PA Unavailable Unavailable MCELHERELGIN NUNEZ PA Unavailable Unavailable SUSIELELGIN MCCLURE PA Unavailable Unavailable SUSIELELGIN MCCLURE PA Unavailable Unavailable SUSIELELGIN MCCLURE PA Unavailable Unavailable SUSIELELGIN MCCLURE PA Unavailable Unavailable MCELHERELGIN NUNEZ PA Unavailable Unavailable SUSIELHERELGIN NUNEZ PA Unavailable Unavailable MCELHERELGIN NUNEZ PA Unavailable Unavailable SUSIELHERELGIN NUNEZ PA Unavailable Unavailable SUSIELHERELGIN NUNEZ PA Unavailable Unavailable MCELHERELGIN NUNEZ PA Unavailable Unavailable MCELHERELGIN NUNEZ PA Unavailable Unavailable MCELELGIN MCCLURE PA Unavailable Unavailable MCELHERELGIN NUNEZ PA Unavailable Unavailable MCELHERELGIN NUNEZ PA Unavailable Unavailable MCELHERELGIN NUNEZ PA Unavailable Unavailable SUSIELELGIN MCCLURE PA Unavailable Unavailable Nixon PRADO MD Unavailable Unavailable EVE, Nixon CHAPMAN MD Unavailable Unavailable EVE, Nixon CHAPMAN MD Unavailable Unavailable EVE, A ARI BOGGS Unavailable Unavailable EVE, Nixon CHAPMAN MD Unavailable Unavailable EVE, Nixon CHAPMAN MD Unavailable Unavailable EVE, A ARI BOGGS Unavailable Unavailable EVE, A ARI BOGGS Unavailable Unavailable EVE, A ARI BOGGS Unavailable Unavailable EVE, A ARI BOGGS Unavailable Unavailable EVE, Nixon CHAPMAN MD Unavailable Unavailable EVE, A ARI BOGGS Unavailable Unavailable EVE, A ARI BOGGS Unavailable Unavailable EVE, A ARI BOGGS Unavailable Unavailable EVE, Nixon CHAPMAN MD Unavailable Unavailable EVE, Nixon CHAPMAN MD Unavailable Unavailable EVE, Nixon CHAPMAN MD Unavailable Unavailable EVE, Nixon CHAPMAN MD Unavailable Unavailable EVE, Nixon CHAPMAN MD Unavailable Unavailable EVE, Nixon CHAPMAN MD Unavailable Unavailable EVE, Nixon CHAPMAN MD Unavailable Unavailable EVE, Nixon CHAPMAN MD Unavailable Unavailable EVE, Nixon CHAPMAN MD Unavailable Unavailable EVE, Nixon CHAPMAN MD Unavailable Unavailable EVE, Nixon CHAPMAN MD Unavailable Unavailable EVE, Nixon CHAPMAN MD Unavailable Unavailable EVE, Nixon CHAPMAN MD Unavailable Unavailable EVE, Nixon CHAPMAN MD Unavailable Unavailable EVE, Nixon CHAPMAN MD Unavailable Unavailable EVE, Nixon CHAPMAN MD Unavailable Unavailable EVE, Nixon CHAPMAN MD Unavailable Unavailable EVE, Nixon CHAPMAN MD Unavailable Unavailable EVE, Nixon CHAPMAN MD Unavailable Unavailable EVE, Nixon CHAPMAN MD Unavailable Unavailable EVE, A ARI BOGGS Unavailable Unavailable EVE, Nixon CHAPMAN MD Unavailable Unavailable EVE, Nixon CHAPMAN MD Unavailable Unavailable EVE, Nixon CHAPMAN MD Unavailable Unavailable EVE, Nixon CHAPMAN MD Unavailable Unavailable EVE, Nixon CHAPMAN MD Unavailable Unavailable EVE, Nixon CHAPMAN MD Unavailable Unavailable EVE, Nixon CHAPMAN MD Unavailable Unavailable EVE, Nixon CHAPMAN MD Unavailable Unavailable EVE, Nixon CHAPMAN MD Unavailable Unavailable EVE, Nixon CHAPMAN MD Unavailable Unavailable EVE, Nixon CHAPMAN MD Unavailable Unavailable EVE, Nixon CHAPMAN MD Unavailable Unavailable EVE, Nixon CHAPMAN MD Unavailable Unavailable EVE, A ARI BOGGS Unavailable Unavailable EVE, A ARI BOGGS Unavailable Unavailable EVE, A ARI BOGGS Unavailable Unavailable EVE, Nixon CHAPMAN MD Unavailable Unavailable EVE, Nixon CHAPMAN MD Unavailable Unavailable EVE, Nixon CHAPMAN MD Unavailable Unavailable EVE, A ARI BOGGS Unavailable Unavailable EVE, A ARI BOGGS Unavailable Unavailable EVE, Nixon CHAPMAN MD Unavailable Unavailable EVE, Nixon CHAPMAN MD Unavailable Unavailable EVE, Nixon CHAPMAN MD Unavailable Unavailable EVE, Nixon CHAPMAN MD Unavailable Unavailable EVE, Nixon CHAPMAN MD Unavailable Unavailable EVE, Nixon CHAPMAN MD Unavailable Unavailable EVE, Nixon CHAPMAN MD Unavailable Unavailable EVE, Nixon CHAPMAN MD Unavailable Unavailable EVE, Nixon CHAPMAN MD Unavailable Unavailable EVE, Nixon CHAPMAN MD Unavailable Unavailable EVE, Nixon CHAPMAN MD Unavailable Unavailable EVE, Nixon CHAPMAN MD Unavailable Unavailable EVE, Nixon CHAPMAN MD Unavailable Unavailable EVE, Nixon CHAPMAN MD Unavailable Unavailable EVE, Nixon CHAPMAN MD Unavailable Unavailable EVE, Nixon CHAPMAN MD Unavailable Unavailable EVE, Nixon CHAPMAN MD Unavailable Unavailable EVE, Nixon CHAPMAN MD Unavailable Unavailable EVE, Nixon CHAPMAN MD Unavailable Unavailable EVE, Nixon CHAPMAN MD Unavailable Unavailable EVE, Nixon CHAPMAN MD Unavailable Unavailable EVE, Nixon CHAPMAN MD Unavailable Unavailable EVE, Nixon CHAPMAN MD Unavailable Unavailable EVE, Nixon CHAPMAN MD Unavailable Unavailable EVE, Nixon CHAPMAN MD Unavailable Unavailable EVE, Nixon CHAPMAN MD Unavailable Unavailable EVE, Nixon CHAPMAN MD Unavailable Unavailable EVE, Nixon CHAPMAN MD Unavailable Unavailable EVE, Nixon CHAPMAN MD Unavailable Unavailable MAUREEN-BRETT, MAXIMILIANO PA Unavailable Unavailable MAUREEN-BRETT, MAXIMILIANO PA Unavailable Unavailable Loya, L Maanda RPA Unavailable Unavailable Loya, L Amanda RPA Unavailable Unavailable Loya, L Amanda RPA Unavailable Unavailable Loya, L Amanda RPA Unavailable Unavailable Loya, L Amanda RPA Unavailable Unavailable Loya, L Amanda RPA Unavailable Unavailable Loya, L Amanda RPA Unavailable Unavailable Loya, L Amanda RPA Unavailable Unavailable Loya, L Amanda RPA Unavailable Unavailable Loya, L Amanda RPA Unavailable Unavailable Loya, L Amanda RPA Unavailable Unavailable Loya, L Amanda RPA Unavailable Unavailable Loya, L Amanda RPA Unavailable Unavailable Loya, L Amanda RPA Unavailable Unavailable Loya, L Amanda RPA Unavailable Unavailable Loya, L Amanda RPA Unavailable Unavailable Loya, L Amanda RPA Unavailable Unavailable Loya, L Amanda RPA Unavailable Unavailable Loya, L Amanda RPA Unavailable Unavailable Loya, L Amanda RPA Unavailable Unavailable Loya, L Amanda RPA Unavailable Unavailable Loya, L Amanda RPA Unavailable Unavailable Loya, L Amanda RPA Unavailable Unavailable Loya, L Amanda RPA Unavailable Unavailable Loya, L Amanda RPA Unavailable Unavailable Loya, L Amanda RPA Unavailable Unavailable Loya, L Amanda RPA Unavailable Unavailable Loya, L Amanda RPA Unavailable Unavailable Loya, L Amanda RPA Unavailable Unavailable Loya, L Amanda RPA Unavailable Unavailable Loya, L Amanda RPA Unavailable Unavailable Loya, L Amanda RPA Unavailable Unavailable Fish, Tamra Song MD Unavailable Unavailable Fish, Tamra Song MD Unavailable Unavailable Fish, Tamra Song MD Unavailable Unavailable Fish, Tamra Song MD Unavailable Unavailable Fish, Tamra Song MD Unavailable Unavailable Fish, Tamra Song MD Unavailable Unavailable Fish, Tamra Song MD Unavailable Unavailable Fish, Tamra Song MD Unavailable Unavailable Fish, Tamra Song MD Unavailable Unavailable Fish, Tamra Song MD Unavailable Unavailable Fish, Tamra Song MD Unavailable Unavailable Fish, Tamra Song MD Unavailable Unavailable Fish, Tamra Song MD Unavailable Unavailable Fish, Tamra Song MD Unavailable Unavailable Fish, Tamra Song MD Unavailable Unavailable Fish, Tamra Song MD Unavailable Unavailable Fish, Tamra Song MD Unavailable Unavailable Fish, Tamra Song MD Unavailable Unavailable Fish, Tamra Song MD Unavailable Unavailable Fish, Tamra Song MD Unavailable Unavailable Fish, Tamra Song MD Unavailable Unavailable Fish, Tamra Song MD Unavailable Unavailable Fish, Tamra Song MD Unavailable Unavailable Fish, Tamra Song MD Unavailable Unavailable Fish, B Duncan BOGGS Unavailable Unavailable Fish, B Duncan BOGGS Unavailable Unavailable Fish, B Duncan BOGGS Unavailable Unavailable Fish, B Duncan BOGGS Unavailable Unavailable Fish, B Duncan BOGGS Unavailable Unavailable Fish, B Duncan BOGGS Unavailable Unavailable Fish, B Duncan BOGGS Unavailable Unavailable Fish, B Duncan BOGGS Unavailable Unavailable Fish, B Duncan BOGGS Unavailable Unavailable Fish, B Duncan BOGGS Unavailable Unavailable Fish, B Duncan BOGGS Unavailable Unavailable Fish, B Duncan BOGGS Unavailable Unavailable Fish, B Duncan BOGGS Unavailable Unavailable Fish, B Duncan BOGGS Unavailable Unavailable Fish, B Duncan BOGGS Unavailable Unavailable Fish, B Duncan BOGGS Unavailable Unavailable Fish, B Duncan BOGGS Unavailable Unavailable Fish, B Duncan BOGGS Unavailable Unavailable Fish, B Duncan BOGGS Unavailable Unavailable Fish, B Duncan BOGGS Unavailable Unavailable Fish, B Duncan BOGGS Unavailable Unavailable Fish, B Duncan BOGGS Unavailable Unavailable Fish, B Duncan BOGGS Unavailable Unavailable Fish, B Duncan BOGGS Unavailable Unavailable Fish, B Duncan BOGGS Unavailable Unavailable Fish, B Duncan BOGGS Unavailable Unavailable Fish, B Duncan BOGGS Unavailable Unavailable Fish, B Duncan BOGGS Unavailable Unavailable Fish, B Duncan BOGGS Unavailable Unavailable SYSTEM IN, NOT IN PROVIDER Unavailable Unavailable SHANNON LEAL MD Unavailable SHANNON LEAL MD Unavailable SHANNON LEAL MD Unavailable SHANNON LEAL MD Unavailable SHANNON LEAL MD Unavailable HONORIO PIÑA MD Unavailable Unavailable HONORIO PIÑA MD Unavailable Unavailable HONORIO PIÑA MD Unavailable Unavailable HONORIO PIÑA MD Unavailable Unavailable HONORIO PIÑA MD Unavailable Unavailable HONORIO PIÑA MD Unavailable Unavailable HONORIO PIÑA MD Unavailable Unavailable HONORIO PIÑA MD Unavailable Unavailable HONORIO PIÑA MD Unavailable Unavailable HONORIO PIÑA MD Unavailable Unavailable HONORIO PIÑA MD Unavailable Unavailable HONORIO PIÑA MD Unavailable Unavailable HONORIO PIÑA MD Unavailable Unavailable HONORIO PIÑA MD Unavailable Unavailable HONORIO PIÑA MD Unavailable Unavailable HONORIO PIÑA MD Unavailable Unavailable HONORIO PIÑA MD Unavailable Unavailable HONORIO PIÑA MD Unavailable Unavailable HONORIO PIÑA MD Unavailable Unavailable HONORIO PIÑA MD Unavailable Unavailable HONORIO PIÑA MD Unavailable Unavailable HONORIO PIÑA MD Unavailable Unavailable HONORIO PIÑA MD Unavailable Unavailable HONORIO PIÑA MD Unavailable Unavailable MARKWITH, HONORIO BOGGS Unavailable Unavailable MARKWITH, HONORIO BOGGS Unavailable Unavailable MARKWITH, HONORIO BOGGS Unavailable Unavailable MARKWITH, HONORIO BOGGS Unavailable Unavailable MARKWITH, HONORIO BOGGS Unavailable Unavailable MARKWITH, HONORIO BOGGS Unavailable Unavailable MARKWITH, HONORIO BOGGS Unavailable Unavailable MARKWITH, HONORIO BOGGS Unavailable Unavailable MARKWITH, HONORIO BOGGS Unavailable Unavailable Re-disclosure Warning The records that you are about to access may contain information from federally-assisted alcohol or drug abuse programs. If such information is present, then the following federally mandated warning applies: This information has been disclosed to you from records protected by federal confidentiality rules (42 CFR part 2). The federal rules prohibit you from making any further disclosure of this information unless further disclosure is expressly permitted by the written consent of the person to whom it pertains or as otherwise permitted by 42 CFR part 2. A general authorization for the release of medical or other information is NOT sufficient for this purpose. The Federal rules restrict any use of the information to criminally investigate or prosecute any alcohol or drug abuse patient.The records that you are about to access may contain highly sensitive health information, the redisclosure of which is protected by Article 27-F of the [facility] Public Health law. If you continue you may have access to information: Regarding HIV / AIDS; Provided by facilities licensed or operated by the [facility] Office of Mental Health; or Provided by the [facility] Office for People With Developmental Disabilities. If such information is present, then the following [facility] mandated warning applies: This information has been disclosed to you from confidential records which are protected by state law. State law prohibits you from making any further disclosure of this information without the specific written consent of the person to whom it pertains, or as otherwise permitted by law. Any unauthorized further disclosure in violation of state law may result in a fine or mcfp sentence or both. A general authorization for the release of medical or other information is NOT sufficient authorization for further disc losure. Family History Family Member Name Family Member Gender Family Member Status Date o f Status Description Data Source(s) Unknown Unknown Problem [facility] ([facility]) Unknown Female Problem [facility] ([facility]) Unknown Male Problem [facility] ([facility]) Unknown Male Problem [facility] ([facility]) Encounters Encounter Providers Location Date Indications Data Source(s ) Outpatient Attender: ARI PRADO MD [id number] 11/08/2020 12:00:00 AM EST Nontraumatic subdural hemorrhage, unspecified [facility] Nontraumatic subdural hemorrhage, unspec ified Inpatient Attender: SHANNON LEAL MDAd mitter: SHANNON LEAL MDReferrer: PROVIDER SYSTEM IN [facility] 10/18/2020 12:00:00 AM EST - 10/19/2020 04:08:00 PM EST Nontraumatic subdural hemorrhage, unspecified [facility] Nontraumatic subdural hemorrhage, unspec ified Patient discharged. Outpatient Referrer: PROVIDER SYSTEM IN 10/16/2020 1 1:35:00 AM EST ischemic stroke [facility] ischemic stroke Outpatient 10/16/2020 12:25:00 AM EST head blee d [facility] head bleed Outpatient Attender: Maximiliano [place] 08/21/2020 01:30:00 PM EDT [facility] ([facility] Outpatient Attender: Maximiliano [place] [place] 07/20/2020 10:30:00 AM EDT [facility] ([facility] Outpatient Attender: Maximiliano [place] [place] 06/26/2020 02:45:00 PM EDT [facility] ([facility] Outpatient Attender: ELGIN ONEIL Physical [facility] 06/23/2020 09:18:00 AM EDT [facility] ([facility]) Outpatient Attender: HONORIO PIÑA MD Physical Therapy 09:16:00 AM EDT [facility] ([facility]) Outpatient Attender: Maximiliano [place] 05/25/2020 09:15:00 AM EDT [facility] ([facility] Outpatient Attender: Maximiliano [place] [place] 05/08/2020 02:45:00 PM EDT [facility] ([facility] Outpatient Attender: Hilario Licona MD Main Office 04/18/2020 03:30:00 PM EDT [facility] ([facility]) Outpatient Referrer: Adelina Scott MD [email or web address] 04/03 12:00:00 AM EDT - 04/18/2020 02:29:58 PM EDT [facility] Outpatient Attender: Adelina [email or web address].RICKEY 04/03 12:00:00 AM EDT - 04/13/2020 12:10:12 PM EDT [facility] Office Visit Attender: Amanda Laneang/[place]/R eindl 04/12/2020 02:15:00 PM EDT [facility] ([facility]) Outpatient Attender: Katalina ONEIL Main office [facility] 03/09/2020 01:45:00 PM EDT [facility] ([facility] ) Office Visit Attender: Maximiliano Pa/[place]/ Reindl 03/09/2020 11:45:00 AM EDT [facility] ([facility]) Outpatient Referrer: Duncan Owen MD 02/23/2020 01:34:00 PM EDT [facility] Outpatient Referrer: Duncan Owen MD 02/01/2020 07:39:00 AM EDT [facility] Outpatient Referrer: Duncan Owen MD 01/12/2020 07:57:00 AM EDT [facility] Outpatient Attender: Amanda Pa/[place]/R eindl 01/11/2020 08:45:00 AM EDT [facility] ([facility]) Outpatient Referrer: Duncan Owen MD 12/27/2019 10:06:00 AM EST [facility] Outpatient Referrer: Duncan Owen MD 12/03/2019 09:09:00 AM EST [facility] Outpatient Referrer: Duncan Owen MD 11/30/2019 10:48:00 AM EST [facility] Outpatient Referrer: Duncan Owen MD 11/26/2019 01:21:00 PM EST [facility] Outpatient Attender: KATHY CARRASCO [id number] 06/14/2019 12:00:00 AM EDT - 06/14/2019 09:02:53 AM EDT [facility] Outpatient Referrer: KATHY DANILO 05/17/2019 09:18:32 AM EDT - 05/17/2019 11:59:00 PM EDT Other chronic pancreatitis [facility] Other chronic pancreatitis Outpatient Attender: MAXIMILIANO CLIFFORD PAReferrer: KATHY GRAJEDA 03/23/2019 12:00:00 AM EDT [facility] PRETEST Medications Medication Brand Name Start Date Product Form Dose Route Admi nistrative Instructions Pharmacy Instructions Status Indications Reaction Description Data Source(s) Amylases 073916 UNT / Endopeptidases 114 000 UNT / Lipase 48742 UNT Delayed Release Oral Capsule pancrelipase (Pqu-Jpzr-Aopv) (CREON) capsule 72,000 units of lipase pancrelipase (Dsa-Jqjq-Hlyn) (CREON) capsule 72,000 un its of lipase 10/19/2020 06:00:00 PM EST Oral active 72,000 units of lipase, Oral, Three Times Daily-With Meals, First dose on Fri10/19/20 at 1800, For 30 days [facility] Medication administered onsite lidocaine (LIDODERM) 5 % patch 1 patch [id number] 0 09:00:00 AM EST 1 {patch} Transdermal active 1 patch, T ransdermal, Daily Standard, First dose on Fri10/19/20 at 0900, For 3 days
Apply to shoulders or upper back.12 hours on - 12 hours off
[facility] Medication administered onsite Amylases 403959 UNT / Endopeptidases 114 000 UNT / Lipase 06351 UNT Delayed Release Oral Capsule pancrelipase (Aue-Iedx-Aras) (CREON) capsule 72,000 units of lipase pancrelipase (Fvl-Ckyo-Blmw) (CREON) capsule 72,000 un its of lipase 10/18/2020 06:00:00 PM EST Oral aborted 72,000 units of lipase, Oral, Three Times Daily-With Meals, First dose (after last modification) on Fri10/18/20 at 1800, For 30 days [facility] Medication administered onsite Sevelamer hydrochloride 800 MG Oral Tablet sevelamer ( RENAGEL) tablet 1,600 mg sevelamer (RENAGEL) tablet 1,600 mg 10/18/2020 06:00:00 PM EST 1600 m g Oral active 1,600 mg, Oral, Three Times Daily-With Meals, First dose on Fri10/18/20 at 1800, For 3 days
Give with meals
[facility] Medication administered onsite Amylases 146700 UNT / Endopeptidases 114 000 UNT / Lipase 58114 UNT Delayed Release Oral Capsule pancrelipase (Nhc-Eqpo-Szns) (CREON) capsule 36,000 units of lipase pancrelipase (Zjr-Cybz-Eqmi) (CREON) capsule 36,000 un its of lipase 10/18/2020 04:39:41 PM EST Oral active 36,000 units of lipase, Oral, PRN, snacks, Starting Fri10/18/20 at 1639, For 30 days [facility] Medication administered onsite Lorazepam 1 MG Oral Tablet LORazepam (ATIVAN) tablet 1 mg LORazepam (ATIVAN) tablet 1 mg 10/18/2020 01:30:00 PM EST 1 mg Oral comple travis 1 mg, Oral, 1 TIME IMAGING, Fri10/18/20 at 1330, For 1 dose
Give prior to MRI.May crush tab if unable to swollow
[facility] Medication administered onsite sodium chloride 0.9 % bolus 500 mL [id number] 10/18/2020 01:00:00 PM EST 500 mL Intravenous completed 500 mL, Intravenous, Once, Fri10/18/20 at 1300, For 1 dose [facility] Medication administered onsite 1 ML heparin sodium, porcine 1000 UNT/ML Injection heparin (porcine) 1000 units/mL injection 2,000 Units heparin (porcine) 1000 units/mL injectio n 2,000 Units 10/18/2020 08:04:38 AM EST 2000 U Intracatheter acti ve 2,000 Units, Intracatheter, PRN, Other, Starting Fri10/18/20 at 0804, For 14 days
3K BATH = K 3-4.5 : 2K BATH = K 4.6-5.7 : IF K<3 OR >5.7 NOTIFY MDMinimum systolic BP : 90 mmHGThe trimmer machine may lower the net fluid removal to 0 and may give 200 cc NS Bolus (upto 3 boluses) for hypotention as defined by floor BP shown below. Call MD after the 3rd bolus.
[facility] Medication administered onsite Levothyroxine Sodium 0.075 MG Oral Table t levothyroxine (SYNTHROID) tablet 75 mcg levothyroxine (SYNTHROID) tablet 75 mcg 10/18/2020 06:00:00 AM EST 75 ug Oral active 75 mcg, Oral, Daily at 0600, First dose on Fri10/18/20 at 0600, For 30 days [facility] Medication administered onsite 300 mg 09/22/2020 12:00:00 AM EST capsule 7 TAKE ONE CAPSULE BY MOUTH EVERY DAY TAKE ONE CAPSULE BY MOUTH EVERY DAY SOLD: 09/23/2020 [facility] 15-20 gram/60 mL 09/15/2020 12:00:00 AM EST suspension 60 TAKE 60ML BY MOUTH NEEDED DIRECTED TAKE 60ML BY MOUTH NEEDED DIRECTED SOLD: 09/19/2020 [facility] 75 mcg 08/24/2020 12:00:00 AM EDT tablet 90 TAKE ONE TABLET BY MOUTH EVERY DAY TAKE ONE TABLET BY MOUTH EVERY DAY SOLD: 08/26/2020 [facility] 75 mcg 08/24/2020 12:00:00 AM EDT tablet 90 TAKE ONE TABLET BY MOUTH EVERY DAY TAKE ONE TABLET BY MOUTH EVERY DAY SOLD: 11/28/2020 [facility] 50 mg 08/10/2020 12:00:00 AM EDT tablet 60 TAKE ONE TABLET BY MOUTH TWICE A DAY NEEDED MAXIMUM DAILY DOSE = 2 TAKE ONE TABLET BY MOUTH TWICE A DAY NEEDED MAXIMUM DAILY DOSE = 2 SOLD: 08/10/2020 [facility] 50 mcg 07/12/2020 12:00:00 AM EDT tablet 90 TAKE ONE TABLET BY MOUTH EVERY DAY TAKE ONE TABLET BY MOUTH EVERY DAY SOLD: 07/14/2020 [facility] 5 % 06/24/2020 12:00:00 AM EDT adhesive patch,medicate d 30 APPLY 1 PATCH TO AFFECTED AREA(S) ONCE DAILY, MAY WEAR FOR UP TO 12 HOURS THEN LEAVE OFF FOR 12 HOURS APPLY 1 PATCH TO AFFECTED AREA(S) ONCE D AILY, MAY WEAR FOR UP TO 12 HOURS THEN LEAVE OFF FOR 12 HOURS SOLD: 06/24/2020 [facility] 50 mg 06/24/2020 12:00:00 AM EDT tablet 15 TAKE ONE TABLET BY MOUTH EVERY 12 HOURS NEEDED FOR MODERATE PAIN (PS 5-7) MAXIMUM DAILY DOSE = 2 TAKE ONE TABLET BY MOUTH EVERY 12 HOURS NEEDED FOR MODERATE PAIN (PS 5-7) MAXIMUM DAILY DOSE = 2 SOLD: 06/24/2020 [facility] 5-325 mg 06/15/2020 12:00:00 AM EDT tablet 60 TAKE ONE TABLET BY MOUTH EVERY 6 HOURS NEEDED MAXIMUM DAILY DOSE = 4 TAKE ONE TABLET BY MOUTH EVERY 6 HOURS NEEDED MAXIMUM DAILY DOSE = 4 SOLD: 06/15/2020 [facility] 1 mg 05/30/2020 12:00:00 AM EDT tablet 5 TAKE 1 TABLET BY MOUTH 1 HOUR PRIOR TO PROCEDURE NEEDED MAXIMUM DAILY DOSE = 1 TAKE 1 TABLET BY MOUTH 1 HOUR PRIOR TO PROCEDURE NEEDED MAXIMUM DAILY DOSE = 1 SOLD: 05/31/2020 [facility] atorvastatin 10 MG Oral Tablet ATORVASTATIN CALCIUM 05/24/2020 1 2:00:00 AM EDT tablet 30 TAKE ONE TABLET BY MOUTH EVERY D AY TAKE ONE TABLET BY MOUTH EVERY DAY SOLD: 10/13/2020 [facility] atorvastatin 10 MG Oral Tablet ATORVASTATIN CALCIUM 05/24/2020 1 2:00:00 AM EDT tablet 30 TAKE ONE TABLET BY MOUTH EVERY D AY TAKE ONE TABLET BY MOUTH EVERY DAY SOLD: 11/18/2020 [facility] 800 mg 05/24/2020 12:00:00 AM EDT tablet 270 TAKE TWO TABLETS BY MOUTH THREE TIMES A DAY WITH MEALS TAKE TWO TABLETS BY MOUTH THREE TIMES A DAY WITH MEALS SOLD: 05/26/2020 [facility] atorvastatin 10 MG Oral Tablet ATORVASTATIN CALCIUM 05/24/2020 1 2:00:00 AM EDT tablet 30 TAKE ONE TABLET BY MOUTH EVERY D AY TAKE ONE TABLET BY MOUTH EVERY DAY SOLD: 07/02/2020 [facility] 10 mg 05/24/2020 12:00:00 AM EDT tablet 30 TAKE ONE TABLET BY MOUTH EVERY DAY TAKE ONE TABLET BY MOUTH EVERY DAY SOLD: 05/26/2020 [facility] atorvastatin 10 MG Oral Tablet ATORVASTATIN CALCIUM 05/24/2020 1 2:00:00 AM EDT tablet 30 TAKE ONE TABLET BY MOUTH EVERY D AY TAKE ONE TABLET BY MOUTH EVERY DAY SOLD: 09/09/2020 [facility] atorvastatin 10 MG Oral Tablet ATORVASTATIN CALCIUM 05/24/2020 1 2:00:00 AM EDT tablet 30 TAKE ONE TABLET BY MOUTH EVERY D AY TAKE ONE TABLET BY MOUTH EVERY DAY SOLD: 08/03/2020 [facility] 5 mg 04/18/2020 12:00:00 AM EDT tablet 60 TAKE ONE TABLET BY MOUTH DIRECTED - MAXIMUM DAILY DOSE = 2 TAKE ONE TABLET BY MOUTH DIRECTED - M AXIMUM DAILY DOSE = 2 SOLD: 09/09/2020 [facility] 5 mg 04/18/2020 12:00:00 AM EDT tablet 60 TAKE ONE TABLET BY MOUTH DIRECTED - MAXIMUM DAILY DOSE = 2 TAKE ONE TABLET BY MOUTH DIRECTED - M AXIMUM DAILY DOSE = 2 SOLD: 12/13/2020 [facility] 5 mg 04/18/2020 12:00:00 AM EDT tablet 60 TAKE ONE TABLET BY MOUTH DIRECTED - MAXIMUM DAILY DOSE = 2 TAKE ONE TABLET BY MOUTH DIRECTED - M AXIMUM DAILY DOSE = 2 SOLD: 04/18/2020 [facility] 5 mg 04/18/2020 12:00:00 AM EDT tablet 60 TAKE ONE TABLET BY MOUTH DIRECTED - MAXIMUM DAILY DOSE = 2 TAKE ONE TABLET BY MOUTH DIRECTED - M AXIMUM DAILY DOSE = 2 SOLD: 06/19/2020 [facility] 5-325 mg 03/24/2020 12:00:00 AM EDT tablet 60 TAKE 1 TABLET BY MOUTH EVERY 6 HOURS NEEDED MAX = 4 TABS/DAY TAKE 1 TABLET BY MOUTH EVERY 6 HOURS NEEDED MAX = 4 TABS/DAY SOLD: 03/25/2020 [facility] 5-325 mg 02/07/2020 12:00:00 AM EDT tablet 15 TAKE ONE TABLET BY MOUTH THREE TIMES A DAY NEEDED FOR PAIN MAXIMUM DAILY DOSE = 3 TAKE ONE TABLET BY MOUTH THREE TIMES A DAY NEEDED FOR PAIN MAXIMUM DAILY DOSE = 3 SOLD: 02/07/2020 [facility] 5 mg 01/11/2020 12:00:00 AM EDT tablet 30 TAKE ONE TABLET BY MOUTH ON , FRIDAY, FRIDAY AND FRIDAY TAKE ONE TABLET BY MOUTH ON , FRIDAY, FRIDAY AND FRIDAY SOLD: 02/18/2020 [facility] 5 mg 01/11/2020 12:00:00 AM EDT tablet 30 TAKE ONE TABLET BY MOUTH ON , FRIDAY, FRIDAY AND FRIDAY TAKE ONE TABLET BY MOUTH ON , FRIDAY, FRIDAY AND FRIDAY SOLD: 03/20/2020 [facility] 5 mg 01/11/2020 12:00:00 AM EDT tablet 30 TAKE ONE TABLET BY MOUTH ON , FRIDAY, FRIDAY AND FRIDAY TAKE ONE TABLET BY MOUTH ON , FRIDAY, FRIDAY AND FRIDAY SOLD: 01/11/2020 [facility] 500 mg 12/24/2019 12:00:00 AM EST tablet 5 TAKE 1 TABLET BY MOUTH ONCE EVERY 48 HOURS TAKE 1 TABLET BY MOUTH ONCE EVERY 48 HOURS SOLD: 12/24/2019 [facility] 10 mg 12/24/2019 12:00:00 AM EST tablet 60 TAKE ONE TABLET BY MOUTH TWICE A DAY START THIS MEDICATION WHEN YOU HAVE FINISHED YOUR ANTIBIOTICS UNLESS ADVISED BY DOCTOR TO START SOONER TAKE ONE TABLET BY MOUTH TWICE A DAY STA RT THIS MEDICATION WHEN YOU HAVE FINISHED YOUR ANTIBIOTICS UNLESS ADVISED BY DOCTOR TO START SOONER SOLD: 12/24/2019 [facility] 100 mg 12/24/2019 12:00:00 AM EST tablet 18 TAKE ONE TABLET BY MOUTH TWICE A DAY FOR 9 DAYS TAKE ONE TABLET BY MOUTH TWICE A DAY FOR 9 DAYS SOLD: 2019 [facility] 10 mg 12/04/2019 12:00:00 AM EST tablet 30 TAKE ONE TABLET BY MOUTH TWICE A DAY TAKE ONE TABLET BY MOUTH TWICE A DAY SOLD: 12/05/2019 [facility] 2 mg 12/04/2019 12:00:00 AM EST capsule 24 TAKE 1 CAPSULE BY MOUTH DIRECTED NEEDED FOR DIARRHEA TAKE 1 CAPSULE BY MOUTH DIRECTED N EEDED FOR DIARRHEA SOLD: 12/05/2019 [facility] 5 mg 11/24/2019 12:00:00 AM EST tablet 30 TAKE ONE TABLET BY MOUTH ON FRIDAY, FRIDAY, FRIDAY AND FRIDAY TAKE ONE TABLET BY MOUTH ON FRIDAY, FRIDAY, FRIDAY AND FRIDAY SOLD: 11/28/2019 [facility] 750 mg 10/25/2019 12:00:00 AM EST tablet 1 TAKE ONE TABLET BY MOUTH ONCE ON 10/26 TAKE ONE TABLET BY MOUTH ONCE ON 10/26 SOLD: 10/25/2019 [facility] Amylases 317803 UNT / Endopeptidases 114 000 UNT / Lipase 95191 UNT Delayed Release Oral Capsule [Creon] Creon 43568 UNIT Oral Capsule Delayed Release Particles (pancrelipase (Fak-Bkdn-Lnvu)) Creon 54768 UNIT Oral Capsule Delayed Release Particles (pancrelipase (Pwy-Uwqb-Xelp)) 06/16/2019 12:00:00 AM EDT 2 {capsule} Oral aborted Take 2 cap sules by mouth Three times daily before meals [facility] Ranitidine 150 MG Oral Tablet ranitidine (ZANTAC) 150 MG tablet ranitidine (ZANTAC) 150 MG tablet 06/14/2019 12:00:00 AM EDT 300 mg Oral active Take 2 tablets by mouth Two Times Daily [facility] 4 mg 05/06/2019 12:00:00 AM EDT tablet 12 TAKE 12MG ( 3 TALETS) ON DAYS 1, 8, 15, & 22 OF CYCLE. - LAST DOSE WAS DAY ONE OF CYCLE TAKE 12MG ( 3 TALETS) ON DAYS 1, 8, 15, & 22 OF CYCLE. - LAST DOSE WAS DAY ONE OF CYCLE SOLD: 12/13/2019 [facility] 4 mg 05/06/2019 12:00:00 AM EDT tablet 12 TAKE 12MG ( 3 TALETS) ON DAYS 1, 8, 15, & 22 OF CYCLE. - LAST DOSE WAS DAY ONE OF CYCLE TAKE 12MG ( 3 TALETS) ON DAYS 1, 8, 15, & 22 OF CYCLE. - LAST DOSE WAS DAY ONE OF CYCLE SOLD: 11/08/2019 [facility] 4 mg 05/06/2019 12:00:00 AM EDT tablet 12 TAKE 12MG ( 3 TALETS) ON DAYS 1, 8, 15, & 22 OF CYCLE. - LAST DOSE WAS DAY ONE OF CYCLE TAKE 12MG ( 3 TALETS) ON DAYS 1, 8, 15, & 22 OF CYCLE. - LAST DOSE WAS DAY ONE OF CYCLE SOLD: 01/10/2020 [facility] 4 mg 05/06/2019 12:00:00 AM EDT tablet 12 TAKE 12MG ( 3 TALETS) ON DAYS 1, 8, 15, & 22 OF CYCLE. - LAST DOSE WAS DAY ONE OF CYCLE TAKE 12MG ( 3 TALETS) ON DAYS 1, 8, 15, & 22 OF CYCLE. - LAST DOSE WAS DAY ONE OF CYCLE SOLD: 02/07/2020 [facility] 4 mg 05/06/2019 12:00:00 AM EDT tablet 12 TAKE 12MG ( 3 TALETS) ON DAYS 1, 8, 15, & 22 OF CYCLE. - LAST DOSE WAS DAY ONE OF CYCLE TAKE 12MG ( 3 TALETS) ON DAYS 1, 8, 15, & 22 OF CYCLE. - LAST DOSE WAS DAY ONE OF CYCLE SOLD: 03/24/2020 [facility] Warfarin Sodium 5 MG Oral Tablet warfarin (COUMADIN) 5 MG tablet warfarin (COUMADIN) 5 MG tablet 02/08/2019 12:00:00 AM EDT 5 mg Oral aborted Take 5 mg by mouth daily [facility] Dexamethasone 4 MG Oral Tablet dexamethasone (DECADRON ) 4 MG tablet dexamethasone (DECADRON) 4 MG tablet 12/06/2018 12:00:00 AM EST 4 mg Oral aborted Take 4 mg by mouth Daily as dire cted 1 day before chemo [facility] Acetaminophen 500 MG / Diphenhydramine H ydrochloride 25 MG Oral Tablet [Tylenol PM] Tylenol PM Extra Strength 500-25 MG Oral Tablet (diphenhydramine-acetaminophen) Tylenol PM Extra Strength 500-25 MG Oral Tablet (diphenhydramine-acetaminophen) 1 {tbl} Oral abort ed Take 1 tablet by mouth nightly as needed [facility] Acetaminophen 325 MG / Oxycodone Hydroch loride 5 MG Oral Tablet oxycodone- acetaminophen (PERCOCET) 5-325 MG per tablet oxycodone-acetaminophen (PERCOCET) 5-325 MG per tablet 1 {tbl} Oral aborted Take 1 tablet by mouth every 4 (four) hours as needed for Pain [facility] ixazomib (NINLARO) capsule 019924 3 mg Oral abor travis Take 3 mg by mouth Indications: 1 cap on day 1,8,15 2 hrs after meal [facility] Cholecalciferol 1000 UNT Oral Capsule Vi tamin D-3 (CHOLECALCIFEROL) 25 MCG (1000 UT) CAPS Vitamin D-3 (CHOLECALCIFEROL) 25 MCG (1000 UT) CAPS 2000 U Oral aborted Take 2,000 Units by mouth ev ananth morning [facility] Acetaminophen 500 MG Oral Tablet acetaminophen (TYLENO L) 500 MG tablet acetaminophen (TYLENOL) 500 MG tablet 500 mg Oral aborted Take 500 mg by mouth as needed for Pain [facility] Diphenhydramine Hydrochloride 25 MG Oral Capsule diphenhydrAMINE (BENADRYL) 25 mg capsule diphenhydrAMINE (BENADRYL) 25 mg capsule 25 mg Oral aborted Take 25 mg by mouth as needed for Itchi ng (PRIOR DIALYSYS) [facility] Insurance Providers Payer name Policy type / Coverage type Policy ID Covered constitution party ID Covered constitution party's relationship to [place] Policy [place] Plan Information MEDICARE [id number] SP [id number] CENTER [id number] SP [id number] MEDICARE C [id number] S [id number] O [id number] S [id number] MEDICARE A [id number] Self [id number] U [id number] Self [id number] Rosy [id number] MEDICARE [id number] Rosy [id number] WPS MV-VAP[facility] [id number] SP [id number] 'S ADMINISTRATION [id number] SP [id number] O [id number] S [id number] MEDICARE OUTPATIENT M [id number] S [id number] [facility] [place] P [id number] S [id number] CENTER [id number] SP [id number] P [id number] S [id number] S [id number] S [id number] MEDICARE -O/P [id number] 18 [id number] [place] Primary Self Program Medigap Part B Self CENTER-O/P [id number] 18 1 [id number] MEDICARE PART A -O/P [id number] 18 [id number] Medicare Part B Medicare Primary Self Commercial Self [place] Medicare Primary Self Hac Commercial Self CENTER [id number] SP [id number] Medicare Part B Medicare Primary [id number] Self [id number] Commercial [id number] Self [id number] MEDICARE [id number] SP [id number] D Medicare Part B Medicare Primary [id number] Self [id number] Commercial [id number] Self [id number] CENTER [id number] SP [id number] [place] Medicare Primary [id number] Self [id number] Hac Commercial [id number] Self [id number] Medicare Part B Medicare Primary [id number] Self [id number] Commercial [id number] Self [id number] MEDICARE C [id number] S [id number] D MEDICARE [id number] SP [id number] D Medicare Part B Medicare Primary [id number] Self [id number] Commercial [id number] Self [id number] [place]/N[place] Medicare Primary [id number] Self [id number] [place] Medicare Primary [id number] Self [id number] Commercial [id number] Self [id number] [place] Medicare Primary [id number] Self [id number] [place] Medicare Primary [id number] Self [id number] Commercial [id number] Self [id number] Medicare [facility] Medicare Primary [id number] Self [id number] Hac Commercial [id number] Self [id number] Medicare Part B Medicare Primary [id number] Self [id number] Commercial [id number] Self [id number] Medicare [facility] Medicare Primary [id number] Self [id number] Hac Commercial [id number] Self [id number] [place] Primary [id number] Self [id number] Program Medigap Part B [id number] Self [id number] [place] Primary [id number] Self [id number] Hac Commercial [id number] Self [id number] [place] Medicare Primary [id number] Self [id number] [place] Medicare Primary [id number] Self [id number] Commercial [id number] Self [id number] MEDICARE A [id number] Self [id number] D [place] Primary [id number] Self [id number] Program Medigap Part B [id number] Self [id number] [place] Primary [id number] Self [id number] Program Medigap Part B [id number] Self [id number] SHANI PART B C [id number] S [id number] 'S ADMINISTRATION [id number] SP [id number] Problems, Conditions, and Diagnoses Code Display Name Description Problem Type Effective Dates Data Source(s) 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 expanding subdural hematoma expanding subdural hematom a Diagnosis 10/18/2020 03:47:00 AM [facility] ischemic stroke ischemic stroke Diagnosis 10/16/2020 11:3 5:00 AM [facility] head bleed head bleed Diagnosis 10/16/2020 12:25:00 AM [facility] Z99.2 Dependence on renal dialysis Dependence on renal dialy sis Diagnosis 04/18/2020 01:25:15 PM EDT [facility] R07.89 Other chest pain Other chest pain Diagnosis 04/18/2020 01 :25:15 PM EDT [facility] R06.02 Shortness of breath Shortness of breath Diagnosis 0 04/18/2020 01:25:15 PM EDT [facility] Surgeries/Procedures Procedure Description Date Indications Data Source(s) BLOOD COUNT COMPLETE AUTO&AUTO DIFRNTL WBC COUNT CBC AND DIFFER ENTIAL Routine 10/19/2020 4:18 AM EST 10/19/2020 04:18:00 AM [facility] BASIC METABOLIC PANEL CALCIUM TOTAL BASIC METABOLIC PANEL Routi ne 10/19/2020 4:18 AM EST 10/19/2020 04:18:00 AM [facility] MRI BRAIN BRAIN STEM W/O CONTRAST MATERIAL MR BRAIN WITHOUT CONTRAST 04000 Routine 10/18/2020 6:16 PM EST 10/18/2020 06:16:00 PM [facility] EEG ROUTINE STUDY EEG ROUTINE STUDY Routine 10/18/2020 4:00 PM EST 10/18/2020 04:00:30 PM [facility] RESPIRATORY PATHOGEN PANEL RESPIRATORY PATHOGEN PANEL Routine 10/18/2020 5:17 AM EST 10/18/2020 05:17:00 AM [facility] COVID-19 PCR COVID-19 PCR Routine 10/18/2020 5:17 AM EST 10/18/2020 05:17:00 AM [facility] CT HEAD/BRAIN W/O CONTRAST MATERIAL CT HEAD WITHOUT CONTRAST 70 450 STAT 10/18/2020 4:55 AM EST 10/18/2020 04:55:00 AM [facility] PROTHROMBIN TIME PROTIME INR Routine 10/18/2020 4:26 AM EST 10/18/2020 04:26:00 AM [facility] BLOOD COUNT COMPLETE AUTO&AUTO DIFRNTL WBC COUNT CBC AND DIFFER ENTIAL Routine 10/18/2020 4:26 AM EST 10/18/2020 04:26:00 AM [facility] THYROID STIMULATING HORMONE TSH TSH Routine 10/18/2020 4:26 AM EST 10/18/2020 04:26:00 AM [facility] PHOSPHORUS INORGANIC PHOSPHORUS LEVEL Routine 10/18/2020 4:[address] 10/18/2020 04:26:00 AM [facility] HEMOGLOBIN GLYCOSYLATED A1C HEMOGLOBIN A1C Routine 10/18/2020 4:26 AM EST 10/18/2020 04:26:00 AM [facility] LIPID PANEL LIPID PANEL Routine 10/18/2020 4:26 AM EST 10/18/2020 04:26:00 AM [facility] COMPREHENSIVE METABOLIC PANEL COMPREHENSIVE METABOLIC PANEL Rou camelia 10/18/2020 4:26 AM EST 10/18/2020 04:26:00 AM [facility] Dialysis Circuit W/ Transluminal Balloon Angioplasty, Periph eral 04/04/2020 12:00:00 AM EDT [facility] Moderate Sedation Services; Same Phys Intl 15 Mins; PT >= 5 Years 04/04/2020 12:00:00 AM EDT [facility] Av Graft W/ Goretex 02/07/2020 12:00:00 AM EDT [facility] ([facility]) Removal Tunneled Central Venous Access Dev W/Sub Port/Pump 12/22/2019 12:00:00 AM EST [facility] Results ID Date Data Source [id number] 11/08/2020 03:04:42 PM [facility] Name Value Range Interpretation Code Description Data Anabella rce(s) Supporting Document(s) Progress Note [facility] NWUHYu1mDtURHgMg79/MHFpbYCZcf9VcUCnnBKa8UHahVQPoZ8RbFUD5gH2lZUC8RWpXIqYlQmBnBMQ7 lbm [file] AgICAgICAgICAgICAgICAgICAgICAgICAgICAgICAg ICAgICAgICAgICAgICAgICAgICAgICAgICAgICAgICAgICAgDQogICAgICAgICAgICAgICAgICAgICAg ICAgICAgICAgICAgICAgICAgICAgICAgICAgICAgICAgICAgICAgICAgICAgICAgICAgICAgICAgICAg ICAgICAgICAgICAgICAgICAgDQogICAgICAgICAgIC AgICAgICAgICAgICAgICAgICAgICAgICAgICAgICAgICAgICAgICAgICAgICAgICAgICAgICAgICAgIC AgICAgICAgICAgICAgICAgICAgICAgICAgICAgDQogICAgICAgICAgICAgICAgICAgICAgICAgICAgIC AgICAgICAgICAgICAgICAgICAgICAgICAgICAgICAg ICAgICAgICAgICAgICAgICAgICAgICAgICAgICAgICAgICAgICAgDQogICAgICAgICAgICAgICAgICAg ICAgICAgICAgICAgICAgICAgICAgICAgICAgICAgICAgICAgICAgICAgICAgICAgICAgICAgICAgICAg ICAgICAgICAgICAgICAgICAgICAgDQogICAgICAgIC AgICAgICAgICAgICAgICAgICAgICAgICAgICAgICAgICAgICAgICAgICAgICAgICAgICAgICAgICAgIC AgICAgICAgICAgICAgICAgICAgICAgICAgICAgICAgDQogICAgICAgICAgICAgICAgICAgICAgICAgIC AgICAgICAgICAgICAgICAgICAgICAgICAgICAgICAg ICAgICAgICAgICAgICAgICAgICAgICAgICAgICAgICAgICAgICAgICAgDQogICAgICAgICAgICAgICAg ICAgICAgICAgICAgICAgICAgICAgICAgICAgICAgICAgICAgICAgICAgICAgICAgICAgICAgICAgICAg ICAgICAgICAgICAgICAgICAgICAgICAgDQogICAgIC AgICAgICAgICAgICAgICAgICAgICAgICAgICAgICAgICAgICAgICAgICAgICAgICAgICAgICAgICAgIC AgICAgICAgICAgICAgICAgICAgICAgICAgICAgICAgICAgDQogICAgICAgICAgICAgICAgICAgICAgIC AgICAgICAgICAgICAgICAgICAgICAgICAgICAgICAg HPKuURQrKIXrAPCnJHIgGMEsWHBdBEDfKVInEJUdXBKwDPLsWESpNPFvMOSoZFc6D3zkCPGbRNWsAV1j OQb8Da6+QUgHAbWwMEZ6cgTyyH4HPW5er7WgIHimBYMkw7EaUZc7IT4KOILrJCizPQ7CSOjxix6IKBFn LRSmpUPZu8wkEbQmPNX4TKUxYbocJI9CAMYnS9quar IgZSOyVXXFERmeTOTASGbcEYZFHE9NDlOaG4IqqO50OQPNBs0+IWahezYfLfcBQxL3WUYfk7OkPDj4NO 8ZMXFoXcpuf7TgUkrtYJTMEKjiWP5WWDX7QTV1AYTvKq5LMGZcH378hxYdTQ0EHa3RJsTjUK9ksr9BTz zkHPKqTwpJAqb0XBptNZ2SmMWkBEqJzz2xjlHvlcFW r7LitoNonASGrPG3LA5cIBRmXAZYebHbODoeCM8YHFL9DPBmSl9hINGnGZNeSzFaNAKJPW7UKMHzXDCv nCAiKRFpXBMXJR1CNFqqVIA2QZVpqeEtvDRgNOmdIA8IIKMkniBmJsJlFQFQPRr+Mk4QZL1hh2NvZAbg EYCrLK3vha3AQNnLPdUrZ9G5fGIuK6X3ULgdKg8UHO AmVROaIaXeENDSLXnnWK6SLC8nqeD8OY2JgPGxUPDnWYXkxJFmGBf7K37jsUMvNZmoHE7UCXG+Karina+Pg 5JWQPqOQWoBLYhWrLwWVWSYtPeK6HjL7RMc9VsY9BsPB01dEqjeqDjDXzgWJ4XZK4jAQRbVAZYGX4ZbZ RqlY6ounRsYeKuTJQXAcItU70ywSNlLDEoQZQ2THJa Xw3VOLCsT6JswpQemJgmpmTiBSJiNMHJFR0XPZzzrfEirCQneNnvBE76xEwgKE9XCc8VAvReVJ6zhu7S lYNhZq6RHGIuEK7HOOAwOPYbTMKlGKF0WBFcHoSuCRjnPYNgYABgKVA6GAWqHIBnSE4DBmFoYLGmHkU0 ZmsfVJTfOHFqif8ULKPkDOFhHlD4LgHxEYMgDPBpEP rlRFSzHQMmKJN1SRDaPKXuCZ9WTuBvGIUjLKM1TKPaKRUdLFChir1WPGNqTTJrYZz6WhHpXGEyIWMnXP qsRLXjKBW8PZF6OIOgFHWeDI0ZInSqUCNrXFktRjgjJWHpZYNphb7CTAEfMKFrQNW1KRGzUKHqFAZkER ctTTCtPNP0IDN1MNGjRNTeTY5FQfMmZCQyTMV6KNWe WGJlGCRnja9OZJLtSIBtAYsiOMFoCRMlALVcCEkpRPHgUELgHOl8IXUqJDOaIC4XYnZkULCpAER9YOAo MCVcBVRzcs8CNSNnSLIoNtV7JIOxFEPfAYVsPWrmFUZnUKCsGgUsYHWwRJWpHS7XDdSvTXHeSeF0BhSn IMRhMNUais4OKKQhHOIyPax5XHBkLOMzYJGeIVicDA GlBVG4FHi4RBSqMKBhHG7CHnUeZBFvTwV4IIbzVSJaEHZslb3ZFKOvZVEuJAT1TiIiOJYpNURfPPueYW MgXWE4GKN6HNGwBICgVP3SPoZaKKKzJdV0UskuSSClZUNuzx0DOTWyYBGmIIekUVLtPMDsXMVqROqzXY LfRAD0LhBiVUFxRPJrZL7QWvUiVWWlFli3RbYlDFHf YDNskb9KAOGpGJTjXbc5DdQmWONhDPGrFHlrXYWoKRW4JAh2TJWrUKPtTQ4VGkAeLRveOMCCOvr4SWvs U4y9IYMnJQ2WJ8Zya9PwVwvbJVYVXOkuVS7azpXlEJQuVa3OR4qJCveiR5F8EMI4LBT6NuDqA4VvF5L1 RCN6CyfhHONiJrFzOJ3zXIMtYCEcRXjnNevhT4FcCL MxBiI2VJuoUBJfDOKbCBH8PqMnBM3MRy2TJtU6OOZ8aQBqDy6PAsvuRimAYeJsYN1CGKz= ID Date Data Source [id number] 10/19/2020 03:19:29 PM EST [facility] Name Value Range Interpretation Code Description Data Anabella rce(s) Supporting Document(s) Discharge Summary [facility] XXYRZc8uSmLEKzFt73/DZVniBCGyq8FpTCpsGGy9KCepDMLwI2IvVVL3dS6jNOW7YCnLDtPfTpHuJlF8 lbm [file] AgMTYgMCBSDQogICAgICAvRjEgMTkgMCBSDQogICAg ZWUwCeDlHdGhDKPWBDvuZDWeWCHtKsRoOxXjWWFDVg2DQcJiDKTtNN4qlkLbhWR7NBP+Cq7ZHKClOK0O cJMKJ8DzlNUoJNfzZ6DWZY0FMON3RN3TzICeMT2LdUGHY6ZojROfXr2fBYYdh7FyGd1jS2CGNQTPRRKo YMmwVJooITSgHLq8X1R2BXCjX1ALM781nMWqhBy5Gp 0oK6TFQMgMReYoHJgqQVzpMEAyZRi3T1H9NAHiN5VGA4RjYhBxprUcG6T+YnEoOKZJGY8PBDISRHw5A5 L1cIPeG1K6uEcBaAL3HF6MLG3TuTAxjCMeu34+CuWXDvYfCCUmH3CXVJCZJsYfFCktCVgjRZPhPYj7I0 J4WVTjO3BTJ9lyR8q5FS7+MqZZSeHsMZOeYc1JXhXp Pg9RLxQxLC8tky1NOvvlYYRdQpdFJha9Z7vynqa2pHMaXhK9E2O7EuA8qNSpPA2ID7W2qDOoOTZ8ZSLq dGE+Fb8Au7BrNPQhTYo1A8lmAIRvPOAcJzNikP32L++7guprjRM5I1s3RFDKfIYwwKuLpaUiH9oGNCI8 r6T5KLp/Jy1CYBO3iVs0yAKiTEQkSWu0cQ7dnUd2Bi JjCF63KREsTQmklR4sRkd2U8Ovl9UgAh1dXm3ahBGxBz7ODhXrGMZ6csRjHgCXEgF9tCvnomocFNH7I2 f6vXZ6Sa54d3uvxdQsx0OwYpX3JBpgDHLbEyPfhfRoVUU4wiIqzF8bqeQkWt0MTXSxEAziwzGvIcHPTy 8ENkPhDB70NatxlV9lhYY+DQogICAgICAgICAgICAg ICAgICAgICAgICAgICAgICAgICAgICAgICAgICAgICAgICAgICAgICAgICAgICAgICAgICAgICAgICAg ICAgICAgICAgICAgICAgICAgICAgICAgICAgDQogICAgICAgICAgICAgICAgICAgICAgICAgICAgICAg ICAgICAgICAgICAgICAgICAgICAgICAgICAgICAgIC AgICAgICAgICAgICAgICAgICAgICAgICAgICAgICAgICAgICAgDQogICAgICAgICAgICAgICAgICAgIC AgICAgICAgICAgICAgICAgICAgICAgICAgICAgICAgICAgICAgICAgICAgICAgICAgICAgICAgICAgIC AgICAgICAgICAgICAgICAgICAgDQogICAgICAgICAg ICAgICAgICAgICAgICAgICAgICAgICAgICAgICAgICAgICAgICAgICAgICAgICAgICAgICAgICAgICAg ICAgICAgICAgICAgICAgICAgICAgICAgICAgICAgDQogICAgICAgICAgICAgICAgICAgICAgICAgICAg ICAgICAgICAgICAgICAgICAgICAgICAgICAgICAgIC AgICAgICAgICAgICAgICAgICAgICAgICAgICAgICAgICAgICAgICAgDQogICAgICAgICAgICAgICAgIC AgICAgICAgICAgICAgICAgICAgICAgICAgICAgICAgICAgICAgICAgICAgICAgICAgICAgICAgICAgIC AgICAgICAgICAgICAgICAgICAgICAgDQogICAgICAg ICAgICAgICAgICAgICAgICAgICAgICAgICAgICAgICAgICAgICAgICAgICAgICAgICAgICAgICAgICAg ICAgICAgICAgICAgICAgICAgICAgICAgICAgICAgICAgDQogICAgICAgICAgICAgICAgICAgICAgICAg ICAgICAgICAgICAgICAgICAgICAgICAgICAgICAgIC AgICAgICAgICAgICAgICAgICAgICAgICAgICAgICAgICAgICAgICAgICAgDQogICAgICAgICAgICAgIC AgICAgICAgICAgICAgICAgICAgICAgICAgICAgICAgICAgICAgICAgICAgICAgICAgICAgICAgICAgIC AgICAgICAgICAgICAgICAgICAgICAgICAgDQogICAg ICAgICAgICAgICAgICAgICAgICAgICAgICAgICAgICAgICAgICAgICAgICAgICAgICAgICAgICAgICAg GRKaVOHeZROsASNbFAQtDSUhSHGwPMNrTLKgLQPpNAAoGDYtSXj1D0eyGBIwQLKuCG7gESp1Ol1+DQoN JaFsBMP5rxUznY7VHL7yn9XzGNqyLKDwj0KmTOq0ZP 9GHWQlYBdkHS1GMMxxds8FEINkCIFqcAKFi4pnZkRuHGK4MVVgKsgrKE6ARUZyU9wtlgWtHIAxIFTWJW vhGAUDXGoxTRTEPHXvNSPjWzAxLaHxPNUyLV2CBETkD450tcWyFA2SIu4YUhLcQR0bte0GLrcwZKYuGw tRUjj2YFfkAK1KxPRdlFLlIFZiPYLGSiKzK2gwh7Rp SxxpRPYUJWpyBY0Rg5IrqTCgTFa+Ir0GOQ2ky8DzRFaxAYJpBB9yys2NTZcYDvMiT2PbbElmTIIjb3Vg DPKsUBSCnR5mNUV9GEI0MTTtzpsyRUZwhvxlWDmytvzdSYPaOBQqJYFnDGxoZdFtJMMjBqfjBlTCXFuK MgQbN6Wgb0GxZlS5FTPgNnIzHJwqBQOaGjW8US85aI zgPT7JTWCeANRtNB65FKM0ZOOzMb2QPl4MPiYyWA1jdi2QOrLyYZCrMdfUGov3ZNjnXM7GoCYyO6XjdQ Ise4rLUmKlD8MUJXC0NUCnKq2FLKZbTaZtRBExPSqcPI0aDXYdJSDXlBfkvaL6TX0WWH3tkoSuQU0BTy HbVe3fRt2NJfAfT0RdW2FuFEWzPPTWFVraWE5VFYbt BT1eSU6Ym8HPuHSppD5mrt3CPWJcMICdImdiez6GWtlhX7A7yRweUHHhThtiHVHJDEouCF9PLRPqSPF8 XGPlRyMxVJDRStDpC35dAT7DM5Jxz77xIrZ1DFDxSwXtMNerES42gKdnbiOesWKaiTexDM6BHp2+DQpl bmRvYmoNCnhyZWYNCjAgMzENCjAwMDAwMDAwMDAgNj E1IrZwFs3OLSXvEZPnXMXhVwYmAAXsUCYqXEwzNUQrWFWdILF6HHOtOCGxRS7DIaNzSMCiTyJ1ThMhEH IpSEOkxm4UIPYqVOErBQX9EsFoYAIjLBRtAGkbLAHbOVSlZUb0DYAyCGMzPR6PBtRsBXZvFBY1JCQiDV VtGSEipd0RCLGaBLRjOrGxDeIwZUWhOESgIOuqLPXy XCQ7XzF1PVZpJMTmZB2YZkLfYDSsNTIeAZyzJFLsZCAlxm6LXWHuYICbWRL9TiElBLFyUTZlZZksDXMb LOUsTKSlGOCmKJMnOU4NZxPyNDItBSZhKVmaLENpFAResr4MQIUwJDOtERX4FiAsSWSuVBEsJEewFDFc XSM1BHPiQUFvLIYyXK2HJsUsOGPuSFBjDcVcZENlKP Izca4QBTWkAUAoIdL8HZPiCNJcJTWjVAxjOEGcPLN9KgPcHQItKYFcFC0BWjEoJDSxXAw1KGAsLKUhNU Ytak0OOEKiVFJtXsdoZQKaZLHeCXOdNWpvBWJyWXO2DUmyKOMwLGJcDS7LPfHvFIOoYPryDXXuHJHmNY Wqqv0NFNXdEVVgBQA7OzXhYKVqRROwLKtxZXZeGAY7 LRLfMSNxOJZeIR9IVjMxARTkWgT5SLNxBMVqIJVsfr1CADVyMNWkWKH3CHHjJIWyGDAsJGugKVZvZCWp UxiwLCYhFYElBM4KUfDiMLRsHpQeOsRvUTNjQKKfpe3MLMZqXINoHeT3QdTnWUQaBXQdPLycTJKmNBAw KsK7AHInBHZwGP9CHnVwQLUjNlD7CRCsANZcJVDaqh 9BfDXehDzmll9DOXfQSq7UbCrkPPPjILyyQx3cqCAxSAElRDYDLy3FitOzDYAkAPXIZIajYGLuMQWvHy onITA4EEC8RBT4WEIdEAF3SOOsNYJ8VEyoYvQ6MbU0FhJ9POHpXJc1EFGfWhH9PLD9Jre6URS1BSm0Eq NmYjY+OQ9qYLe+Fg2My2JuhgH5rrXtSGjxIpK4FZ4YYDPTQ0PVYb== ID Date Data Source [id number] 10/19/2020 10:02:18 AM [facility] Name Value Range Interpretation Code Description Data Anabella rce(s) Supporting Document(s) [facility] ILRGSv8cPeEATxIy34/NQEkcNVHbr6JjAQbpIFb4NLuoSPAsK0MpOBI6cJ5tWNC6AOlVFdXoNmBiHhF3 lbm [file] MDYyMCAwMDAwMCBuDQowMDAwMDExNTgwIDAwMDAwIG 8QGfVwDPYoHFR8ZkmkJFJyOPAuwi2HYMNeGADqTYs9QPVqAYFeAWYmSRkqEDEyKQJlXBIdIQOdBLNjVU 2QHfAwHJEoGZX4IWObIHGkFUCqbr4BSLUsDZCmYnjpUdNiFOIoVVOwXYelNZEnODU8FTQuWGAqLTDkZF 3GAqNnHKdsFZSICda0OWvaE5n2QROrKE0SN6Kki8Qs WgBsMZTCZZryFK6hwhNnFVHfUo5OL8aOZkjtYjE9LDU6BjG8NVDqRFQcKbZxTYs0QlYhXub7LPJ5Bk8a XULbClD9KfEnHvJlHYP6PrBfWpCxHxW9BrNcFjB0FiGkLbYnHN1BNi8FBaT8FXN6jJKoKa8LOLVuKSNJ ThNvIH4UHQz= ID Date Data Source [id number] 10/19/2020 08:41:57 AM [facility] MR BRAIN WITHOUT CONTRAST [id number] ULTInterpreted by:SOCO Vanessa10/18/2020 5:45 PMMR BRAIN WITHOUT CONTRAST [id number] CLINICAL INFORMATION: 75-year-old female with history of garbled speech and right sided weakness found to have an acute on chronic subdural hematoma, as per medical record.ADDITIONAL CLINICAL INFORMATION: History of multiple myeloma. MR IMAGING OF THE BRAIN WITHOUT CONTRASTPROCEDURE: MR images were acquired using multiple sequences in multiple planes.COMPARISON: CT head dated 10/18/2020FINDINGS: Images are degraded by motion artifactThere is redemonstration of bilateral subdural hemorrhages along the frontoparietal convexities, right larger than left.There is also redemonstration of subdural hemorrhage along the posterior falx and bilateral tentorium.No abnormal restricted diffusion is seen to suggest acute infarct.Scattered T2/FLAIR hyperintensities are seen in subcortical and periventricular white matter, likely suggestive of small vessel disease. No evidence of acute infarct or intracranial mass. Ugalde-white matter differentiation preserved Midline structures including corpus callosum and cerebellar tonsils are normal. Appropriate signal void indicating patency by spin-echo criteria is seen along the major intracranial vessels and dural sinuses.The ventricles, sulci and fissures are normal in size and configuration .Mucosal thickening is noted in bilateral maxillary sinuses. Opacification of bilateral mastoid air cells is seen. The orbits are normal.IMPRESSION: No evidence of abnormal restricted diffusion to suggest acute infarct.Bilateral subdural hemorrhages along frontal parietal convexities, right larger than left. Subdural hemorrhage along posterior falx and bilateral tentorium.No new hemorrhage.This document has been electronically signed by SOCO Vanessa on 10/19/2020 8:39 AM Name Value Range Interpretation Code Description Data Anabella rce(s) Supporting Document(s) ID Date Data Source [id number] 10/19/2020 05:03:01 AM [facility] Name Value Range Interpretation Code Description Data Anabella rce(s) Supporting Document(s) Leukocytes [#/volume] in Blood by Automated count 3.5 10*3/uL 4-10 L [facility] Erythrocytes [#/volume] in Blood by Automated count 3.01 10*6/uL 4.1- 5.3 [facility] Hemoglobin [Mass/volume] in Blood 10.6 g/dL 11.5-15.5 [facility] Hematocrit [Volume Fraction] of Blood by Automated count 30.8 % 3 6-45 L [facility] Erythrocyte mean corpuscular volume [Entitic volume] b y Automated count 102.5 fL 80-96 H [facility] Erythrocyte mean corpuscular hemoglobin [Entitic mass] by Automated count 35.2 pg 27-33 H [facility] Erythrocyte mean corpuscular hemoglobin concentration [Mass/volume] by Automated count 34.4 g/dL [facility].0-[facility] width [Ratio] by Automated count 16.5 % 11.5-14.5 H [facility] Platelets [#/volume] in Blood by Automated count 138 10*3/uL 150-400 L [facility] Differential cell count method - Blood [facility] Neutrophils/100 leukocytes in Blood by Automated count 53 % [facility] Lymphocytes/100 leukocytes in Blood by Automated count 34 % [facility] Monocytes/100 leukocytes in Blood by Automated count 10 % [facility] Eosinophils/100 leukocytes in Blood by Automated count 2 % [facility] Basophils/100 leukocytes in Blood by Automated count 1 % [facility] Neutrophils [#/volume] in Blood by Automated count 1.89 10*3/uL 1.8-7 .0 [facility] Lymphocytes [#/volume] in Blood by Automated count 1.22 10*3/uL 1.2-4 .0 [facility] Monocytes [#/volume] in Blood by Automated count 0.35 10*3/uL 0-0.8 [facility] Eosinophils [#/volume] in Blood by Automated count 0.06 10*3/uL 0-0.5 [facility] Basophils [#/volume] in Blood by Automated count 0.02 10*3/uL 0-0.2 [facility] Nucleated erythrocytes/100 leukocytes [Ratio] in Blood by Automated count 0 /100{WBCs} 0-0 [facility] ID Date Data Source [id number] 10/19/2020 06:04:57 AM [facility] Name Value Range Interpretation Code Description Data Anabella rce(s) Supporting Document(s) Bicarbonate [Moles/volume] in Serum 21 mmol/L 22-29 L [facility] Chloride [Moles/volume] in Serum or Plasma 104 mmol/L 98-107 [facility] Creatinine [Mass/volume] in Serum or Plasma 3.96 mg/dL 0.50-0.90 H [facility] Confirmed Glucose [Mass/volume] in Serum or Plasma 80 mg/dL 70-140 [facility] Potassium [Moles/volume] in Serum or Plasma 4.2 mmol/L 3.4-5.1 [facility] Hemolyzed Sodium [Moles/volume] in Serum or Plasma 136 mmol/L 136-145 [facility] Urea nitrogen [Mass/volume] in Serum or Plasma 18 mg/dL 8- [facility] Confirmed Anion gap 3 in Serum or Plasma 11 mmol/L 8-15 [facility] Osmolality of Serum or Plasma by calculation 282 mosm/kg 275-300 [facility] Confirmed Creatinine/Urea nitrogen [Mass Ratio] in Serum or Plasma 4 [facility] Confirmed Calcium [Mass/volume] in Serum or Plasma 8.7 mg/dL 8.8-10.2 L [facility] Glomerular filtration rate/1.73 sq M pre dicted among non-blacks [Volume Rate/Area] in Serum or Plasma by Creatinine-based formula (MDRD) 10 mL/min/1.73m2 >60 L [facility] Glomerular filtration rate/1.73 sq M pre dicted among blacks [Volume Rate/Area] in Serum or Plasma by Creatinine-based formula (MDRD) 12 mL/min/1.73m2 >60 L [facility] ID Date Data Source [id number] 10/18/2020 03:19:57 PM [facility] Name Value Range Interpretation Code Description Data Anabella rce(s) Supporting Document(s) History and Physical [facility] ASNDYk4jDyANOuQd84/EONnwQMPcn0NbPMqgHGt1SPbtNANmB0YjUIT7xR0mRQK9ETrTYwMcCqTqXiB2 lbm [file] AgICAgICAgICAgICAgICAgICAgICAgICAgICAgICAg YAOaYAUuBYYnDPRgECOqPDFbZYFpYLXhQXZiHVUhAOScLFOtYMAdRTZgGFUgUCBaRWKoTI9NCNYbHXTq ICAgICAgICAgICAgICAgICAgICAgICAgICAgICAgICAgICAgICAgICAgICAgICAgICAgICAgICAgICAg ICAgICAgICAgICAgICAgICAgICAgICAgICAgICAgIC AeQH7OVKJfHPYsVDMtVJSnMLVsKLWvEBEsERByDCLbXZDcEZOwCTFqTOKcHKPcVKCwYSMbKEPbKRYkHL MlAMXhNJXrMEWsNWStINCyYXCzUSZvKDRgQFDsQHTyEOFlXBFdGMVwFDLzKZ0EMCQkIEGqZZJmHGXsGA AgICAgICAgICAgICAgICAgICAgICAgICAgICAgICAg WKVvNOEcECLeZMUwYFDwUCTiCQWmGCHyHNCcFXTvHUVhUVHrVVQxNHTpWKXdKZUqWSVtRTNeNJ4UOLWj ICAgICAgICAgICAgICAgICAgICAgICAgICAgICAgICAgICAgICAgICAgICAgICAgICAgICAgICAgICAg ICAgICAgICAgICAgICAgICAgICAgICAgICAgICAgIC DlLDGsLU6JRGUlAEQfSGMaFISnDUZbFJOtSOBrGZMnHILuSBNiZTQsBTMrNOBiDPMfQVLaPQVnULQbYV BjTQCyEARvGCCeJOYmGUUzJJXpOFVhPJWuLOEzRHPqBGYrUHNgUCDjMSSvXUTcLL7FVVBvSNNzPONpEZ AgICAgICAgICAgICAgICAgICAgICAgICAgICAgICAg BKTgYASnGRFmGDCoBMZaBQVvCSClKHYxSZBsMTEqFZZrCHNiEKTfAJFpADWyKPNvVLKeDPMiDZNfSN7Q ICAgICAgICAgICAgICAgICAgICAgICAgICAgICAgICAgICAgICAgICAgICAgICAgICAgICAgICAgICAg ICAgICAgICAgICAgICAgICAgICAgICAgICAgICAgIC RkJBCcLMAbOP6DCVYnWOYePRUyFVZqJQYqSENvOBXpXVFmIMQgRJCqNFOxWBBrRFJvAMLdJQSxKBRqGQ UgBQVhKZYwXRThJYGuIQZfARUpFXEaVHDvVJUdAKSnHDHiVNAeBDAwLRYcGRKtNJOeZF4FOUApHWUyXX AgICAgICAgICAgICAgICAgICAgICAgICAgICAgICAg ICAgICAgICAgICAgICAgICAgICAgICAgICAgICAgICAgICAgICAgICAgICAgICAgICAgICAgICAgICAg ED4GKO83hGZms9O0RIAxMM3abcn/Mz6MUBhrrqCxpCAcVW5VOiOhDQ6xgz5DEnVxMA2wnb4TVMuWHxIm H3K4wPLzUAKiCRCHMnIbL89fRBamWg15UZkeGXDgRt QiSVd5Ha5OYlDhD4bwGEPaFyU2MJMlMnV7ZPMfGlC0LNInXoRaHRBbJZZiFCBzLYKOYVR7KGBfBwFiNn OtAEAuCC3URDAyY721snUbGu1JSn5GZqUdXJ0tvn1JRTRqBUGvRsqJWbh4OMnfUK2QlDLwpXY6OUGwLI BVGrWpD0zcu2AsIOWbNWMZUIkaRS8Yv6DbsCXtRMj+ Dx0UEA9eq2KpVAy7XFYvTK1fxo0EURoKTwNoT3RnrKoyMNsnHFHjyCPANAXzBTUbDMOdfKPzIU5VBcHx TABrGDXsTJDmMwUgXORqLNcpSnCGEQmGBsCeM6Avk8EvKzZ9VIXaCgAqYMtvEZPgWgO7RU02hSjvJT1Z QOIsCAZdTN87TDZkZZQkQn9XQl9UJjMiJX1ugi5ADT FnXTExMzuVYci9ELlqDV2ByIElE6PuiOVpo5eUGrSeU5CHOXF3YPKcRs9UOMGqSgQxNBKqTKneQC3mPV ZcIHSDnVgqhjR6QW1VKI1cbiKaWR8WFiWtRi0tSi0NZrCcB5SsY9UrNXGdZQGFKLhkPS2GLEsrPK7sIT 3Os2YSeCOcxF3zdc9WTNAdNIJiVybxtx4LIzzfG3X8 sJxyUOZlKABlBXTCHSaoDL3KCTRaYMF7RVSeOVYlPUWQDkDuI63gSQ7WO6Gmt10nDzO1LEVuOqFxNYeu SB67nDnhdpIpsUBowRqoOI4WVh6+GRfahhVaYrdAVsgkBCNTJsOhJPKVOhDuUIEnXUFuTZCjYlV6WwIi He3CXYFkTBXiGRViDpJqRULbKOVnLBagCVJvJBY8CK N0VOUhPUImPR3HDsArHDDaREF2VTPcFZRyZOSxqk3QYEHaDXWeUZX7IqAbBXRkBYJfYDxfDRKnQWElHt NyFCErSKZxXI8RJvCqNPZoVQS7ZWEtSDPrDQBrba9VWMYnYIXhSoakZaSoTDDkSQFfFOtyOEXsTNT9XL B9WGKySZUyPC3QRaThCXQkWXFnMHXbDJAgCYErkb6H QIHvCIWhHDS4PUIrKQWsTBXlPRfdCJPpAGUzNJu3PNSxPLWyCS4IDlWmSFZcBHA0QUBfUNBxQLOmqp0Q AZPpLJEtLiwhNLQrVAYcUSViEHubXOXxVJU1TCI9OKTbQVVqHZ7TZuNmSFNyAVwaARCoAUFmWFVsxf3P SXVoBUXcPCX5MXXqMATyFCThAMowCHZwIRXhOpV7OK JgJOKqTV8FVmZzMKApSsW9AIWgTHKtIZXpxt3UGAEsVFWtFGzrWbCaLTDiENCwZYbdMNGcJUHfHSr7WT DfDMAuSH1ATpEtTDKgGsOeHZJzHLCrMQCzym5RFNCnGHPiZbX3FDTyKJPbVAOvPKukDCNzZESzKyKfHD VnETTiXF6KMwGzPYDrJwE5IuDcCGRbTVTnoc1GUYTn FMBqGUO7RYPfACOySQBbSJhiYFClALA0OinfZZBxFGEzVP6XHxUkBBCxCiU4ERVpWPRbHXYhqg7VDKSw OBQaDEq3KXWiIUBtBZGmIUhmZWDyYKL3VER3JVUdZLHmMC2ZRtZyPMLpGzTxTiBmVXTbADQecp0XCFTp ARQcKoHfWUCdUEMtKSShADvoUKQoOLX5EGWkULLiOK ReQX6CDhMkVEYeZlqiZdXsKNTsQNNlbi1ARNTxMOJbBFH5IBQoVDZgUKUnHHbxUDMyLGV8QHD2RRYzKW FoIG0KImNdFEDbVtk4ZiRdSPOqBCQysu1ZUXTeJMKiJQU9GRJkYNShPKMiYJjqEYOdSCU0JYJ9IFUuLU BnKK1OUtMmWSAjNPRkVwQfOZWrVPYkdk9KDWUlXOO1 MUz4DFIyJBOxIQWuOXkmKMMsIHHtJNY2UZXaXJUuOV1STkBpWFJzJMI1IrViHJWlVXWosn9AbXYujZag zu1ISAsEXu0HrZtxTEVeNJriOp8fbCT7GdDlNDUESv2QlsWfTVRjMGERUIrfHGQrJVG7FjSkQusdLgRx GUQeHqcaBYHwJCW6SZJnKOA2AJIvYqL4ZmHcC6T8OO SeAbSnQ4IpNiMlMXDlSoAnNFJ9MMNwGMO+KQ1gTZn+Qg5Sq1SrugZ6hhNpUWu1AiNbHW3KJAIRS4MZOc == ID Date Data Source [id number] 10/18/2020 02:47:42 PM [facility] Name Value Range Interpretation Code Description Data Anabella rce(s) Supporting Document(s) [facility] BKMFMz6jBtQVSsPi58/EKBqqEVPtg8EdSUktJFt5IBgfWWSkK6WpDXS3oB5sTOY9XEiFFyZwDzDhUdK3 lbm [file] G0HSTA4HDIGyVU1Py592PPe6YU4GZEXcICJmXDGJSv SjGIYdNY8UVCFuNyLbYAN+Xt1QESYrCZ8BW7FzFGK3FQv4VC7+VLwpROSwY7O2uQrApQM5GVJ3ME4NZn EEWmGfHYg3O9Y7tDPlG5C2eYjQhBF5MU1OQA9POBMcHW4+UuGcD5VEYXrNOAG9ZA0YyLYrRF1OzSMIF2 NxaURiSp5nAUByzIcdpXd+NyZmP8UKLJLHMSI3EO8S vGZbFV4UqYCAZ7HyvFQdCz3iBCkeGcNrTJ6wKN4+TB8GHREQCcKNRzSjFNwkOOpsFEHfSZc7D9I6LNNq L6YVW8K1Q6l6j2prwk4+ZT6WMHUtLZ3VYjJCUDvWLCB9ZR5JdEEkVB4WzVDTW1DvtATlMu8dCCmrjFJi bj4+ST8FQARsWMD+Yz1TCAD+Pz1ECZ5ph8KmTIabMX HzAH3bjv7AGTajJXAuL6VhRFZqBLmaK1PjuQogEJ9WJMpmYVllHH5FOXMpGFJ3SU7+BLkjsYRyTN8IBj w/tAAyV3rutSXbLZtekz3a57w/OvPcMK5rJxTHPJ9uF2SkyLr9vuQGoy1HL2wsQhipZv6+BPzuUPj2Mp sbnP5ilXRvnTu6nLL4dt6hSp0xIAarGQanoD3ljfT6 wZ1jBZEdOnU7eqY0zCE8ZL1pXs7BCPDuKXqkHLJ1UdGFCVvzaZ6qNqBlWx1ioXE1kVxwT7b3za55Nv7y rueoMIo1BT8hIj0zRb4bOKFly8knxGI8FW9tSgr+LLhcZEUiKM2rXPZ2OhJVJz0BZLG5P2t1lU9toFW2 SO5MJtNfVVMzIVKcPJJqVLXlDKYcONAvGRZzCTCxEW AgICAgICAgICAgICAgICAgICAgICAgICAgICAgICAgICAgICAgICAgICAgICAgICAgICAgICAgICAgIC AgICAgICAgICAgICANCiAgICAgICAgICAgICAgICAgICAgICAgICAgICAgICAgICAgICAgICAgICAgIC AgICAgICAgICAgICAgICAgICAgICAgICAgICAgICAg ICAgICAgICAgICAgICAgICAgICAgICANCiAgICAgICAgICAgICAgICAgICAgICAgICAgICAgICAgICAg ICAgICAgICAgICAgICAgICAgICAgICAgICAgICAgICAgICAgICAgICAgICAgICAgICAgICAgICAgICAg ICAgICANCiAgICAgICAgICAgICAgICAgICAgICAgIC AgICAgICAgICAgICAgICAgICAgICAgICAgICAgICAgICAgICAgICAgICAgICAgICAgICAgICAgICAgIC AgICAgICAgICAgICAgICANCiAgICAgICAgICAgICAgICAgICAgICAgICAgICAgICAgICAgICAgICAgIC AgICAgICAgICAgICAgICAgICAgICAgICAgICAgICAg ICAgICAgICAgICAgICAgICAgICAgICAgICANCiAgICAgICAgICAgICAgICAgICAgICAgICAgICAgICAg ICAgICAgICAgICAgICAgICAgICAgICAgICAgICAgICAgICAgICAgICAgICAgICAgICAgICAgICAgICAg ICAgICAgICANCiAgICAgICAgICAgICAgICAgICAgIC AgICAgICAgICAgICAgICAgICAgICAgICAgICAgICAgICAgICAgICAgICAgICAgICAgICAgICAgICAgIC AgICAgICAgICAgICAgICAgICANCiAgICAgICAgICAgICAgICAgICAgICAgICAgICAgICAgICAgICAgIC AgICAgICAgICAgICAgICAgICAgICAgICAgICAgICAg ICAgICAgICAgICAgICAgICAgICAgICAgICAgICANCiAgICAgICAgICAgICAgICAgICAgICAgICAgICAg ICAgICAgICAgICAgICAgICAgICAgICAgICAgICAgICAgICAgICAgICAgICAgICAgICAgICAgICAgICAg ICAgICAgICAgICANCiAgICAgICAgICAgICAgICAgIC AgICAgICAgICAgICAgICAgICAgICAgICAgICAgICAgICAgICAgICAgICAgICAgICAgICAgICAgICAgIC AgICAgICAgICAgICAgICAgICAgICANCjw/tFDiN8dnwXFwtrA0L7szJg7ZEl9HPS5zs3QvCSPiWXpwkv PgNnpAFoAyMKMeWxmOOdx8GHyvQM1VjXTzF5MaC9Iq MPtxPW9APLJlPQRyiDBiMEQwZPDtJiY8YKJiRQivPW0QaWFqSZhyMHYoNRWkUpAwCVLlNI9NGQMaK414 rmNqMs5PKp3CNuYkRZ2lcp4CHGMpZOGmFjxKZpz5ZMarAP2LbGNsnYRwKkZzBSEUCaAbJ8bzr4OzXDhn JPPDVMbsON4Jq1NxaAVwWGd+Ef1QDI6tv7PxBKliGs VkET8fdh1MNIsFIwTfU0XpcVwgPUJzvvC1zRNmMUT2IVKhvF1hxKKiO8AzvUWfGELyrB8pdywyTD7FYl DdjDAuPk8wAd5cUNFkIYJwXwP9KMTROR8AJOGgIPXoyHRlYWZcUWGXMS8ZJFjeEFC5XTUdubSpgQHiJZ twXG8CXVYfsiTpAZXgRBWJGXq+Rt4HNF4jf5HhPMcl YGXdGQ4hib2LEIxNRkUrQ9E1vJBvZ6W8MZkvTq5QZUUzQONaNDExDFUWEZepNI3URI7dlrB2HI9GqQQr XGAyVXWhbQBcEIw3K36odONoTRevII7DZWH+Karina+Bz0BLBTuSGVoZPKvCcYeCZUWFeVaO6ZxF5GGf7Ul P8BkDC13lLsqhqJeKMhkDZ6XTU7kZNFtOAZKOA3WuI KvkP6gssKrEkCxMPQYSwWaO20yxXEtNBUlBBU6DCZzFs9RPZBdR1DtafMidNqdexLzYQOtUGPNCT6JTQ fketPpgUXdoRdhRC20eWjbYV1RCh6RElFnDX2xdb0KtYNwFa8QWHPwAJ2YKTVhAEKgRRKcADK7TTFfYr RxHJnkPWBfWPJoXCG5NITjZPSzYN2TKpDmKGNfFPq5 LYxzTBIuLWKrdn6ZIHLxOCRoGYR8BSOnXMEdYXXnCFnlCLRmQUXeKQA4QKQrBTLmKD8EJzToKLXtCTI2 OsSpTNHrMODrlo2OKXXrPCFmPNX8OJUjWNTqACEaPFacIZNjWUQ3ROX0MWSoBUSoOA0SZkIuWYMqWIMt HIVmGLQqRMUqkt2EWQTgEIVsWmV7MDHfBWJaAUJiIS cuPUPzSVG9Jxg4GSVtQHMsAM6ZDrFqGTQrIPV6GeYzAXZmVGNiby9USSYoIBAvOwLuSMWhTLYyHDYxTE qcWUGgRPC3AtD5ICLnQLDdNM8XDdSpOTFzABm1IpNcEOAbQNHkcd3QZVGlBIYbGWRkTXBeWAZbDIYxSE yaVJRcELN3Hpq9HHGyOJEaLZ5WFyYlWMTaGMq2UULn NVRhDFEfgt5FLGPsRKNgOAw5DTHiKDKuBBBsFFl7gfZjqXXwBTw4EM7OP9AsclQbIErCIu6Ip911UQI6 WZCbNn2ZW1fbYm3qWHReKTLXRd2ZMRm6BRMwW4OzWOCmMGf1LvV7O0PbFpX0USNxZDG9UQstJ8I+IDwx A2JmSrT7SVRhVxB9XGM5TsA5DAVdUPNrIek1OLDiJU 0nPAYOZc4+GJxblUNlaEbtRTJRXgNtNnVjRKwzWAFDRa3U ID Date Data Source [id number] 10/18/2020 01:59:37 PM [facility] Name Value Range Interpretation Code Description Data Anabella rce(s) Supporting Document(s) Consultation [facility] ZGNXSo0zHgSMDcYa13/OJKuzFNVni2DqVYzcBNg0SZaeZZErY8XaDBB6hU0gRKP6RHmDSjNtHzKwUfG4 lbm [file] NxUkUhXiBXIgRAs5ZcgaUH2lJVASKf0+TGfbsHDfhIhvCTKOLoC9JFl0JIloQITVEt9V ID Date Data Source [id number] 10/18/2020 09:06:26 AM EST [facility] Name Value Range Interpretation Code Description Data Anabella rce(s) Supporting Document(s) Consultation [facility] IQJHBk5uQdDUZzKc89/KIYsxNFNig6RkWBpkIBv3IZsxTTFkH2DdDMT4cZ5mLHM6QPmCZkPwYrOxVgP2 lbm [file] AgICAgICAgICAgICAgICAgICAgICAgICAgICAgICAgICAgICAgICAgICAgICAgICAgICAgICAgICAgIC AgICAgICAgICAgICAgICAgICAgICAgICAgICAgICANCiAgICAgICAgICAgICAgICAgICAgICAgICAgIC AgICAgICAgICAgICAgICAgICAgICAgICAgICAgICAg ICAgICAgICAgICAgICAgICAgICAgICAgICAgICAgICAgICAgICAgICANCiAgICAgICAgICAgICAgICAg ICAgICAgICAgICAgICAgICAgICAgICAgICAgICAgICAgICAgICAgICAgICAgICAgICAgICAgICAgICAg ICAgICAgICAgICAgICAgICAgICAgICANCiAgICAgIC AgICAgICAgICAgICAgICAgICAgICAgICAgICAgICAgICAgICAgICAgICAgICAgICAgICAgICAgICAgIC AgICAgICAgICAgICAgICAgICAgICAgICAgICAgICAgICANCiAgICAgICAgICAgICAgICAgICAgICAgIC AgICAgICAgICAgICAgICAgICAgICAgICAgICAgICAg ICAgICAgICAgICAgICAgICAgICAgICAgICAgICAgICAgICAgICAgICAgICANCiAgICAgICAgICAgICAg ICAgICAgICAgICAgICAgICAgICAgICAgICAgICAgICAgICAgICAgICAgICAgICAgICAgICAgICAgICAg ICAgICAgICAgICAgICAgICAgICAgICAgICANCiAgIC AgICAgICAgICAgICAgICAgICAgICAgICAgICAgICAgICAgICAgICAgICAgICAgICAgICAgICAgICAgIC AgICAgICAgICAgICAgICAgICAgICAgICAgICAgICAgICAgICANCiAgICAgICAgICAgICAgICAgICAgIC AgICAgICAgICAgICAgICAgICAgICAgICAgICAgICAg ICAgICAgICAgICAgICAgICAgICAgICAgICAgICAgICAgICAgICAgICAgICAgICANCiAgICAgICAgICAg ICAgICAgICAgICAgICAgICAgICAgICAgICAgICAgICAgICAgICAgICAgICAgICAgICAgICAgICAgICAg ICAgICAgICAgICAgICAgICAgICAgICAgICAgICANCi AgICAgICAgICAgICAgICAgICAgICAgICAgICAgICAgICAgICAgICAgICAgICAgICAgICAgICAgICAgIC AgICAgICAgICAgICAgICAgICAgICAgICAgICAgICAgICAgICAgICANCjw/fCYvC4xceNHzqwL0W1diIa 2XRy1PLQ1tv9TvESEbDAnlaxZxLbwYLzTzKRZrCnfT Dnv9GHqwPS7WmRMdZ3UeX7YoRTmbNW0WTMBhNDImoHBsOTWfTJYhLbV4FGRkLJgvEV8GrBDkOEogYMTj QAQqFfDiMODwCKTeEKHrBNTzSSLHRBNnZLXnZxSfRHZyHAGaQH2MEACkM297nfLkNt3UOw2ATrPsZV3i gc4UTTNtPVNuCbxBBeu6ZEqxGJ0LxVOceWM7DSBwAE MIKqSvH8dty6CeDIPaAOUAHTxdIX0Sy1VxxKZqCHe+Dv2JDK3mr1FuTUx1OCYgIN8ysr0CQQhVVsRnL0 AtySenEXLrkgF3iDBzJAP9ETLfARbvznJupxOUWPJfPUuttXbnOXZcTHSlGIXnRHVcDjCyDLOyYKf1IR DRXXqUHkUkT2Bla4UyXqV4DWXeDmIpAVnmUUWpYoM7 GE91vMfuMN3VPJHdXGWdKJ15HZVmJDJgFa6UTk0IYvXtRO5puo7QGSVlJMUyCpxGMrm0TVtvOS1GwNTa J7FulGOzz3yCXnCeV6OLZYM4ZJXkEw9MMTBlJhQfOOXjUJvuCT7lOZWsUTNUgWvdlrH4WU6ZMV0pynVu HG5FKkXcZi6yEu4HImDwK0PeZ2QqZALgHWMTWXpfQC 9AQKbrZF0uRR6Nk0CZjYYqhD0egp1MMXLtXOIzSmelfv6FFhesX9M2vXmoIGQcIYPfBOPUCPzhOR3VHO FyMDZ3HPOmBNKeXKEMUyQvJ90uPB6VQ0Dma67zAbV3GJKqIbCiDGleJP28cYcwpxKbtNSssXwrVF5ZXz 4+DQplbmRvYmoNCnhyZWYNCjAgNDMNCjAwMDAwMDAw TBYyHpP6EqQvNu0CHIVrICOsPYNhSdKkWFRzEQLoOZexUORcZCC5SXC6PVMuBXRrQD3ZPtTlBVZlTZq6 FlAeRISaXCLque4YZAGfQASjAJE9EoMaWIRzGXQvREtyJARbVBWzVVX7OMNuLKGwWR8LQlWeMPNqFQTf AjBpDBCfHXGhjp8IDHHzYHHpIjBmGiEpMSGrFVTfSV mdOWDcKRZ9HDYtYGByXLQfAE5OPhNyRWPiZQp0PHhpUYFgSLDocr4DYPArHOWqJCI5ScLwRLJuMSVpDG cmENLsCKPiTLElZJDoQEHeQU2OEvOmFBGoOETcKDrgLZPaFBRkhq7DJBWqWUVaGEA1NAXmLEQrTBPsNK suCAHsAXS8Ire0PRXcFJLiQF8JBwBmOYRiGOH9SxAw MGQdHBXanh5PKGDmAUKjJzL6KcGcLIMlNCTjDYrcFQNcVNM7DVYjCTQiLOWoVC9JTqYaJTHlQCreJUcj JENpGMFiau9EYRZePGUxHzE7BqPzCKGwLDXxRZgmPSKwIGY3QRZkVTHcWYGqKA8PAyJvSZMaIMn4PYUv AUAzNZBczo9GTBBtBKPcJXpnOTUqMTJsPKAaJNnaVJ AqYPB9FdyvUWJnGRYzCB6THwTmQYRlWIh2RLugOEVwPMOkoo5OXTVjMSSaJQR5TGZcQGPaQJOgJJjsOK KyDQYhFJg6SZNzBEOwMS7NZjJwLGGcTGV5MeUaUZNuJUVamp7UNFAhSTB2Psr4KkUyORGcXNNyIGmiIP TjDGCjLdCaVUJaDCIbHH2RQvGxMDLwPWNiApqzABEu GGHmhd5LRTVbXVL7JZf7WaHnOHQeTMYjUVtvYUDmQMW4CAfrRPQhEEWqBV4BPpDsSEAnEVUfGZGoOJTg XPOvsy4OYQYvSSH7XRKoWWUsWVNzSHCpMYrjFJYyJEX8Vxo1IVSpCANvWH2HTnGyZNJiNCG0BQglTDIy TVEpzi1PPMWuRJF0KmqlEpTxQXYtALBeBLbfTSXfRC U1JNz0MYWzEGXgWO0ZUnArXDOrWWi6MfXhTTJoDQCkaz5UVMXgWMK0EFwdQDQfHCDoOBXxXMjmFQFqRZ Q8OHa3ROYfVGZiTW8ZIyXfEJJbESgaCmQdVJPzVESpzf4VvXHauRyvle1GPPeHKn7QfFpyAEVmUYrkYr 1sgWB6FvDiXGSOCp5DzxDiRQRhZBZYYDobDQPuKMtb A8YkHrA9ZZJyMMSgQOJ3L4NaLXTtTja1NZHrBhSzXyK3J8Z2PJBjHCAxHIQ8RKQzFywuTbOkQDB9PHWx FZB5UzC+ZE0yWLt+Pd8Wo2ToweQ9jvQbXKc9SWE1EI8TBYXVS8COJd== ID Date Data Source [id number] 10/18/2020 06:48:25 AM [facility] CT HEAD WITHOUT CONTRAST [id number] RESU LTInterpreted by:Julius Pitt [facility] POTEAUlinical Indication: SDH.Technique: Contiguous axial CT images of the head were acquired from the base of the skull to the vertex without intravenous contrast administration. Images were viewed in brain, subdural and bone windows. Automated dose lowering techniques and/or adjustment according to patient size were utilized for this exam.Comparison: CT examination from outside institution dated 10/17/2020 at 10:36 PMFindings: There is redemonstration of an acute bilateral [...] No territorial infarction. No significant mass effect o r midline shift. The basal cisterns remain patent. The ventricles are unchanged in size. Mucosal thickening of the paranasal sinuses. The mastoid air cells are clear. The calvaria is intact.Impression: Subdural hemorrhage along the bilateral superior frontoparietal convexities bilaterally, slightly more prominent and more posteriorly, likely related to redistribution without any significant change. No significant mass effect or midline shift.This document has been electronically signed by SOCO Pitt on 10/18/2020 6:46 AM Name Value Range Interpretation Code Description Data Anabella rce(s) Supporting Document(s) ID Date Data Source [id number] 10/18/2020 05:17:00 AM EST [facility] Name Value Range Interpretation Code Description Data Anabella rce(s) Supporting Document(s) [facility] was ordered by [facility] and reported by [facility]. ID Date Data Source [id number] 10/18/2020 06:56:36 AM [facility] Service Cmnt XXX-Imp : NoneRespiratory P CR Panel : PCR ResultsMicroorganism XXX Cult : See Labs Tab for 2019 nCoV RT-PCR resultsHAdV DNA QI ROB+non-probe : Not DetectedHCoV 229ERNA Nph QI ROB+non-probe : Not DetectedHCoV VJQ9PXP Nph QI ROB+non-probe : Not MildafogXXsJBL46 RNA Nph QI ROB+non-probe : Not JdhzelbjOVyTHF45 RNA Upper resp QI ROB+probe : Not DetectedhMPV RNA Nph QINAA+non-probe : Not DetectedRV+EV RNA Nph QI ROB+non-probe : Not DetectedFLUAV RNA Nph QI ROB+ non-probe : Not DetectedFLUBV RNA Nph QI ROB+non-probe : Not DetectedHPIV1 RNA NphQINAA+non-probe : Not DetectedHPIV2 RNA Nph QINAA+non-probe : Not DetectedHPVI3 RNA Nph ROB+non-probe : Not DetectedHPIV4 RNA Nph Q ROB+non- probe : Not DetectedRSV RNA Nph Q ROB+non-probe : Not DetectedB pert.PT PrmtNph Q ROB+non-probe : Not DetectedC pneum DNA Nph Q ROB+non-probe : Not DetectedM pneum DNA Nph Q ROB+non-probe : Not DetectedB vouttFI392 DNA Nph ROB+non-probe : Not Detected Name Value Range Interpretation Code Description Data Anabella rce(s) Supporting Document(s) ID Date Data Source [id number] 10/18/2020 06:55:32 AM [facility] Value Range Interpretation Code Description Data Anabella rce(s) Supporting Document(s) Specimen source [Identifier] of Unspecified specimen [facility] SARS-CoV-2 RNA 2019 nCoV Real-Time RT-PCR: NOT DETECTED [facility] Assay Performed [facility] Patients first test for [facility] 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 [facility] Patient has symptoms related to [facility] When did you start to experience these symptoms [Date and time] [Phen X] [facility] Patient was hospitalized because of this condition [facility] patient was admitted to ICU for [facility] Patient resides in a congregate care setting [facility] status [facility] ID Date Data Source [id number] 10/18/2020 05:09:42 AM [facility] Name Value Range Interpretation Code Description Data Anabella rce(s) Supporting Document(s) Leukocytes [#/volume] in Blood by Automated count 4.7 10*3/uL 4-10 [facility] Erythrocytes [#/volume] in Blood by Automated count 2.92 10*6/uL 4.1- 5.3 L [facility] Hemoglobin [Mass/volume] in Blood 10.4 g/dL 11.5-15.5 L [facility] Hematocrit [Volume Fraction] of Blood by Automated count 30.0 % 3 6-45 L [facility] Erythrocyte mean corpuscular volume [Entitic volume] b y Automated count 102.7 fL 80-96 H [facility] Erythrocyte mean corpuscular hemoglobin [Entitic mass] by Automated count 35.5 pg 27-33 H [facility] Erythrocyte mean corpuscular hemoglobin concentration [Mass/volume] by Automated count 34.6 g/dL 32.0-36.0 [facility] distribution width [Ratio] by Automated count 16.5 % 11.5-14.5 H [facility] Platelets [#/volume] in Blood by Automated count 163 10*3/uL 150-400 [facility] Differential cell count method - Blood [facility] Neutrophils/100 leukocytes in Blood by Automated count 58 % [facility] Lymphocytes/100 leukocytes in Blood by Automated count 28 % [facility] Monocytes/100 leukocytes in Blood by Automated count 12 % [facility] Eosinophils/100 leukocytes in Blood by Automated count 2 % [facility] Basophils/100 leukocytes in Blood by Automated count 0 % [facility] Neutrophils [#/volume] in Blood by Automated count 2.78 10*3/uL 1.8-7 .0 [facility] Lymphocytes [#/volume] in Blood by Automated count 1.31 10*3/uL 1.2-4 .0 [facility] Monocytes [#/volume] in Blood by Automated count 0.56 10*3/uL 0-0.8 [facility] Eosinophils [#/volume] in Blood by Automated count 0.07 10*3/uL 0-0.5 [facility] Basophils [#/volume] in Blood by Automated count 0.01 10*3/uL 0-0.2 [facility] Nucleated erythrocytes/100 leukocytes [Ratio] in Blood by Automated count 0 /100{WBCs} 0-0 [facility] ID Date Data Source [id number] 10/18/2020 05:46:07 AM [facility] Name Value Range Interpretation Code Description Data Anabella rce(s) Supporting Document(s) Cholesterol [Mass/volume] in Serum or Plasma 124 mg/dL <200 [facility] Triglyceride [Mass/volume] in Serum or Plasma 87 mg/dL <150 [facility] Cholesterol in HDL [Mass/volume] in Serum or Plasma 73 mg/dL >50 [facility] Cholesterol in LDL [Mass/volume] in Serum or Plasma by calcu lation 34 mg/dL <100 [facility] Cholesterol in VLDL [Mass/volume] in Serum or Plasma by calc ulation 17 mg/dl 16-42 [facility] Cholesterol non HDL [Mass/volume] in Serum or Plasma 51 mg/dL <130 [facility] ID Date Data Source [id number] 10/18/2020 05:46:07 AM [facility] Name Value Range Interpretation Code Description Data Anabella rce(s) Supporting Document(s) Thyrotropin [Units/volume] in Serum or Plasma 0.532 u[IU]/mL 0.270-4. 200 [facility] ID Date Data Source [id number] 10/18/2020 05:46:07 AM [facility] Name Value Range Interpretation Code Description Data Anabella rce(s) Supporting Document(s) Albumin [Mass/volume] in Serum or Plasma by Bromocresol green (BCG) dye binding method 4.0 g/dL 3.5-5.2 [facility] Bilirubin.total [Mass/volume] in Serum or Plasma 1.0 mg/dL <1.2 [facility] Calcium [Mass/volume] in Serum or Plasma 8.8 mg/dL 8.8-10.2 [facility] Chloride [Moles/volume] in Serum or Plasma 97 mmol/L 98-107 L [facility] Creatinine [Mass/volume] in Serum or Plasma 6.68 mg/dL 0.50-0.90 H [facility] Glucose [Mass/volume] in Serum or Plasma 87 mg/dL 70-140 [facility] Alkaline phosphatase [Enzymatic activity/volume] in Serum or Plasma 48 U/L 35-104 [facility] Potassium [Moles/volume] in Serum or Plasma 4.8 mmol/L 3.4-5.1 [facility] Hemolyzed Protein [Mass/volume] in Serum or Plasma 5.8 g/dL 6.4-8.3 L [facility] Sodium [Moles/volume] in Serum or Plasma 136 mmol/L 136-145 [facility] Aspartate aminotransferase [Enzymatic activity/volume] in Serum or Plasma 26 U/L <32 [facility] Urea nitrogen [Mass/volume] in Serum or Plasma 36 mg/dL 8-23 H [facility] Osmolality of Serum or Plasma by calculation 290 mosm/kg 275-300 [facility] Creatinine/Urea nitrogen [Mass Ratio] in Serum or Plasma 5 [facility] Bicarbonate [Moles/volume] in Serum 25 mmol/L 22-29 [facility] Alanine aminotransferase [Enzymatic activity/volume] in Seru m or Plasma 15 U/L <33 [facility] Anion gap 3 in Serum or Plasma 14 mmol/L 8-15 [facility] Glomerular filtration rate/1.73 sq M pre dicted among non-blacks [Volume Rate/Area] in Serum or Plasma by Creatinine-based formula (MDRD) 6 mL/min/1.73m2 >60 L [facility] Glomerular filtration rate/1.73 sq M pre dicted among blacks [Volume Rate/Area] in Serum or Plasma by Creatinine-based formula (MDRD) 6 mL/min/1.73m2 >60 L [facility] ID Date Data Source [id number] 10/18/2020 06:19:56 AM [facility] Name Value Range Interpretation Code Description Data Anabella rce(s) Supporting Document(s) Prothrombin time (PT) 15.7 s 12.5-14.9 H [facility] INR in Platelet poor plasma by Coagulation assay 1.23 [facility] Routine intensity oral anticoagulation I NR is typically 2.0-3.0. Target INR must be clinically individualized. ID Date Data Source [id number] 10/18/2020 04:51:22 PM [facility] Value Range Interpretation Code Description Data Anabella rce(s) Supporting Document(s) Phosphate [Mass/volume] in Serum or Plasma 5.9 mg/dL 2.5-4.5 H [facility] ID Date Data Source [id number] 10/18/2020 05:44:46 AM [facility] Value Range Interpretation Code Description Data Anabella rce(s) Supporting Document(s) Hemoglobin A1c/Hemoglobin.total in Blood by HPLC 4.7 % 4.0-6.0 [facility] (NOTE)<5.7% Average risk of diabetes (ADA)5.7-6.4% Increased risk of diabetes(ADA)>/= 6.5% Diagnostic for diabetes(ADA) Glucose mean value [Mass/volume] in Blood Estimated fr om glycated hemoglobin 88 mg/dL <126 [facility] ID Date Data Source [id number] 10/16/2020 11:26:00 AM EST [facility] Name Value Range Interpretation Code Description Data Anabella rce(s) Supporting Document(s) SARS coronavirus 2 RNA [Presence] in Res piratory specimen by ROB with probe detection [facility] This lab was ordered by [facility] a nd reported by [facility]. ID Date Data Source [id number] 04/04/2020 01:50:00 PM EDT [facility] ([facility], ) Name Value Range Interpretation Code Description Data Anabella rce(s) Supporting Document(s) Inr 2.22 Normal (applies to non-numeric resul ts) [facility] ([facility], ) THERAPUTIC HUMAN INR VALUES INDICATIONS NORMAL RANGES PROPHYLAXIS/TREATMENT OF: VENOUS THROMBOSIS 2.0-3.0 PULMONARY EMBOLISM 2.0-3.0 PREVENTION OF SYSTEMIC EMBOLISM FROM: TISSUE HEART VALVES 2.0-3.0 ACUTE MYOCARDIAL INFARCTION 2.0-3.0 VALVULAR HEART DISEASE 2.0-3.0 ATRIAL FIBRILLATION 2.0-3.0 MECHANICAL VALVES(HIGH RISK) 2.5-3.5 RECURRENT MYOCARDIAL INFARCTION 2.5-3.5 Prothrombin Time 24.4 s 11.8-14.0 Above high normal M [facility] ([facility], ) ID Date Data Source [id number] 03/26/2020 02:33:40 PM EDT [facility] Name Value Range Interpretation Code Description Data Anabella rce(s) Supporting Document(s) Progress Note [facility] XZRJNt2mJnXZBlSp47/MSWalRCPuz3UkQAnsIJc2ICxtPZIzD2TfVAB8yC0hTWV6URbCLjNpHlXhZTZ0 lbm [file] AgICAgICAgICAgICAgICAgICAgICAgICAgICAgICAgICAgICAgICAgICAgICAgICAgICAgICAgICAgIC AgICAgICAgICAgICAgICAgICAgICAgICAgICAgICAgICAgDQogICAgICAgICAgICAgICAgICAgICAgIC AgICAgICAgICAgICAgICAgICAgICAgICAgICAgICAg ICAgICAgICAgICAgICAgICAgICAgICAgICAgICAgICAgICAgICAgICAgICAgDQogICAgICAgICAgICAg ICAgICAgICAgICAgICAgICAgICAgICAgICAgICAgICAgICAgICAgICAgICAgICAgICAgICAgICAgICAg ICAgICAgICAgICAgICAgICAgICAgICAgICAgDQogIC AgICAgICAgICAgICAgICAgICAgICAgICAgICAgICAgICAgICAgICAgICAgICAgICAgICAgICAgICAgIC AgICAgICAgICAgICAgICAgICAgICAgICAgICAgICAgICAgICAgDQogICAgICAgICAgICAgICAgICAgIC AgICAgICAgICAgICAgICAgICAgICAgICAgICAgICAg ICAgICAgICAgICAgICAgICAgICAgICAgICAgICAgICAgICAgICAgICAgICAgICAgDQogICAgICAgICAg ICAgICAgICAgICAgICAgICAgICAgICAgICAgICAgICAgICAgICAgICAgICAgICAgICAgICAgICAgICAg ICAgICAgICAgICAgICAgICAgICAgICAgICAgICAgDQ ogICAgICAgICAgICAgICAgICAgICAgICAgICAgICAgICAgICAgICAgICAgICAgICAgICAgICAgICAgIC AgICAgICAgICAgICAgICAgICAgICAgICAgICAgICAgICAgICAgICAgDQogICAgICAgICAgICAgICAgIC AgICAgICAgICAgICAgICAgICAgICAgICAgICAgICAg ICAgICAgICAgICAgICAgICAgICAgICAgICAgICAgICAgICAgICAgICAgICAgICAgICAgDQogICAgICAg ICAgICAgICAgICAgICAgICAgICAgICAgICAgICAgICAgICAgICAgICAgICAgICAgICAgICAgICAgICAg ICAgICAgICAgICAgICAgICAgICAgICAgICAgICAgIC AgDQogICAgICAgICAgICAgICAgICAgICAgICAgICAgICAgICAgICAgICAgICAgICAgICAgICAgICAgIC BqHSObOXPqXVTjCXBgCCDoZTJeCGAnGKJxAZBjKEMpHFElHWWsNIEyYHRmQDv3K7fcFMRpDLXnFD3bWM d3Jz8+RPaZWaHhMJN8wyApwP5LBC4sc8AzXBjtIOTy u1QjGOs0KH2KTOVbGGlsMG0HNMjazh6VTCOfRSPzdFXGf6jsAdPsMAS1TDHvWattIA2WALQdW7mexeOl SSKnERYAHYqiTZFJSUfgKSMPKNLoAHItZlSwHHcsMV3No7UwbFI5JCs+Mg9BOZ7mg4QiDHsbLXAeFT4f bk4ACPzQUoInU2AbutS7EJA5ILYeOq4EYUHyFOVjgJ ZqSGOpDJXQMbSiO1IkjE13PGPDSo4+FUxrbpZjPydSSuC8MEKxg9MtUYc7EH6WBMMxVAi2qBHtMSLpU5 Xkc9TlFw93SLLeLgaxBoDiiJWQpwInzrsdHYVcXYAgGK0qZy1wGDJ8LVD2GyIiSJMPPQ6OLCLjPHOosF UjNOGfKUMJCU9RMAaeUYM0EQJfafYxtSZwCWneIC7D YXJlbnQgMjggMCBSDQo+Bh9XSK3ef5OiUFanCQVxTE4qxk3IZRbWGjBkR5D0fJItF2L8XXfkZz4HHEAo QDPvSpDnNUSJGVaeNQ8NXF4dhkP9FZ4PzWJcVCSuXGXazGNpMZf1L43bsILwUMjjMH2OJWY+Karina+Pg0K PLYsIHKaVRWmZyGkKJNNRsUpR3EwG6QVf7GnN1YsUH 12nCyahtJsNZoiDJ6BGM3tZCYlVOWFDN9HmGTrhI7puiAfTGVzPQGANaNiL94ogJJrNJGyOGV5TZZtUd 2CFIZiC4UxtdRlaWpwbeJnQYNoIZRTJT8LXQeutmAlbGBkuLkxJB01hFcyIE6IGz5NJzHmKE1vlr2BsR TjMt8SXSObIJ8WOHQfCCVuJDKiDBG4TNKuEzEeVDtb ULQsHEXjJDQ1ZJUmLAUoQK2OWpYrXWDgWjz4NmEjUFXgLKDhhz6BUKCuMSLlCVO7VwSrRIGxXMSyGDde GVDfSIYeTEE3BHYcKBJcVJ9TSpOeUHKkPKL4SswqEMAsFHJsuc0ETETiVSCjTdU0JmSiXOXlLCVuNXrc TDQqCNP3QuPzLZJsBBRmTE1QFmZaQDJfPCT4IRDvCL RsMARyhz9ABPYdBOUnXDU1SyOqQKJbGDCqNOejLLPfLFN7FWa8JEKjOQOaLN0WPtDkBOZmMBP3CqCnHD QpLAWjkm5NSCWfWGOiLiM7KMVuKLRrQCKtTWocTVFgQVDsGEDnJVZgYHAmBA6YZqPiTDMvWLGtHydjXC MqEPZbdg6EXGEhVPXpQxXoUCVdSPGzFKYnIEdrXUCi AGK2RGc5AOUnMVRvTY3OBjEwOHWyIVI4YLSxORLwLQXcdh1TDIBdYHYiGDy7LRInLHCnOTAqQQxfFASc BYW7Haq8KVJxHLHeXO0HJmQiAXPoRyD7MqJyAWRcYBMpsz8JXGZbQPPhBjcuRpMyNOHtTGZgOVuyWZAw WZX7PMhyLHQeSOYeQY7IKpKiZRXdVoadIwwvXDJoKI Qnxm4CLRObJUYnUOL7RhBgLJKgATBlQXstJODjZSP8DfNlVRSqZWFwKE9AWmOiXVMgIzw5GusvFLGuGO Sxqi3JJJYcXWYcWEi6LuHiXQGpLAFjDHceOGGvUPHgTANyIOFnYAElAA8WHvGoVGFfLnJ0EWNpHNSqGI Mkbh0IOFJnBAYoBVLsPEYiZIUrNARtBGz4ntXdeIJr OJl7AE8TG2TlldOtWwWXWa7Tg436QZZtCCFkVk4KU0dvAk1vXRDhNYBEEp0WRAs2BTavS8E5PAHkAaGu DKHuRKJ7MGDdOrLhMKQ1OWWdQab+UKd6VXD9Zay1GhBxWTUsGLQwDiCcMYZ6RcHhCKf3TgFxOU3hWYYG Cj4+EIkgvRMbgNmfISSDPqHlTRddXYfbIOZVEv9R ID Date Data Source [id number] 02/07/2020 07:41:00 AM EDT [facility] ([facility], ) Name Value Range Interpretation Code Description Data Anabella rce(s) Supporting Document(s) Potassium [Moles/volume] in Serum or Plasma 4.6 meq/L 3.5- 5.1 Normal (applies to non-numeric results) [facility] ([facility] ) <content>By: LAMINE</content>
<conten t>Time: 719</content>
<content>note:<nlbl:[email or web address]></content>
<sabine LAMINE Time: 719</content>
<content></content> ID Date Data Source [id number] 02/07/2020 07:41:00 AM EDT [facility] ([facility]) Name Value Range Interpretation Code Description Data Anabella rce(s) Supporting Document(s) Inr 0.92 Normal (applies to non-numeric resul ts) [facility] ([facility]) THERAPUTIC HUMAN INR VALUES INDICATIONS NORMAL RANGES PROPHYLAXIS/TREATMENT OF: VENOUS THROMBOSIS 2.0-3.0 PULMONARY EMBOLISM 2.0-3.0 PREVENTION OF SYSTEMIC EMBOLISM FROM: TISSUE HEART VALVES 2.0-3.0 ACUTE MYOCARDIAL INFARCTION 2.0-3.0 VALVULAR HEART DISEASE 2.0-3.0 ATRIAL FIBRILLATION 2.0-3.0 MECHANICAL VALVES(HIGH RISK) 2.5-3.5 RECURRENT MYOCARDIAL INFARCTION 2.5-3.5 Prothrombin Time 12.1 s 11.8-14.0 Normal (applies to non-numeric results) [facility] ([facility]) Procedure Social History Code Duration Value Status Description Data Source(s ) Alcohol intake 11/08/2020 12:00:00 AM EST Current non-d ramy of alcohol (finding) completed Current non-drinker of alcohol (finding) [facility] Tobacco use and exposure 11/08/2020 12:00:00 AM EST Never used co mpleted Never used [facility] Cigarette pack-years 11/08/2020 12:00:00 AM EST UNK completed [facility] Cigarettes smoked current (pack per day) - Reported 11/08/19 21 12:00:00 AM EST UNK completed [facility] Smoking 11/08/2020 12:00:00 AM EST Former smoker completed Former smoker [facility] Vital Signs ID Date Data Source UNK Name Value Range Interpretation Code Description Data Source(s) Body weight 51.370 kg 51.370 kg [facility] ([facility]) [place] body weight 120 [lb_av] 120 [lb_av] [facility] ([facility]) Body mass index (BMI) [Ratio] 19.4 kg/m2 19.4 k g/m2 [facility] ([facility]) Body weight 113.25 [lb_av] 113.25 [lb_av] [facility] ([facility]) Body height 64 [in_i] 64 [in_i] [facility] 5'4" Heart rate 78 /min 78 /min [facility] ([facility]) Diastolic blood pressure 91 mm[Hg] 91 mm[Hg] [facility] ([facility]) Done On Left Thigh Systolic blood pressure 167 mm[Hg] 167 mm[Hg] [facility] ([facility]) Done On Left Thigh Body surface area Derived from formula 1.54 m2 1.54 m2 [facility] ([facility]) Body surface area Derived from formula 1.53 m2 1.53 m2 [facility] ([facility]) Body weight 50.803 kg 50.803 kg [facility] ([facility]) [place] body weight 120 [lb_av] 120 [lb_av] [facility] ([facility]) Body mass index (BMI) [Ratio] 19.2 kg/m2 19.2 k g/m2 [facility] ([facility]) Body weight 112.00 [lb_av] 112.00 [lb_av] [facility] ([facility]) Body height 64 [in_i] 64 [in_i] [facility] ([facility]) 5'4" Diastolic blood pressure 68 mm[Hg] 68 mm[Hg] [facility] ([facility]) Systolic blood pressure 105 mm[Hg] 105 mm[Hg] [facility] Body weight 52.731 kg 52.731 kg [facility] ([facility]) [place] body weight 120 [lb_av] 120 [lb_av] [facility] ([facility]) Body mass index (BMI) [Ratio] 20.0 kg/m2 20.0 k g/m2 [facility] ([facility]) Body weight 116.25 [lb_av] 116.25 [lb_av] [facility] ([facility]) Body height 64 [in_i] 64 [in_i] [facility] ([facility]) 5'4" Diastolic blood pressure 74 mm[Hg] 74 mm[Hg] [facility] ([facility]) Systolic blood pressure 132 mm[Hg] 132 mm[Hg] [facility] Body weight 53.525 kg 53.525 kg [facility] ([facility]) Body mass index (BMI) [Ratio] 20.3 kg/m2 20.3 k g/m2 [facility] ([facility]) Body weight 118.00 [lb_av] 118.00 [lb_av] [facility] ([facility]) Body height 64 [in_i] 64 [in_i] [facility] 5'4" Diastolic blood pressure 70 mm[Hg] 70 mm[Hg] [facility] ([facility]) Systolic blood pressure 108 mm[Hg] 108 mm[Hg] [facility] ([facility]) Body weight 54.432 kg 54.432 kg [facility] ([facility]) Body mass index (BMI) [Ratio] 20.6 kg/m2 20.6 k g/m2 [facility] ([facility]) Body weight 120.00 [lb_av] 120.00 [lb_av] [facility] ([facility]) Body height 64 [in_i] 64 [in_i] [facility] ([facility]) 5'4" Diastolic blood pressure 60 mm[Hg] 60 mm[Hg] [facility] ([facility]) Systolic blood pressure 110 mm[Hg] 110 mm[Hg] [facility] ([facility]) Body weight 51.937 kg 51.937 kg [facility] ([facility]) Body mass index (BMI) [Ratio] 19.7 kg/m2 19.7 k g/m2 [facility] ([facility]) Body weight 114.50 [lb_av] 114.50 [lb_av] [facility] ([facility]) Body height 64 [in_i] 64 [in_i] [facility] ([facility]) 5'4" Diastolic blood pressure 62 mm[Hg] 62 mm[Hg] [facility] ([facility]) Systolic blood pressure 100 mm[Hg] 100 mm[Hg] [facility] ([facility]) Body weight 52.618 kg 52.618 kg [facility] ([facility] Body mass index (BMI) [Ratio] 19.9 kg/m2 19.9 k g/m2 [facility] ([facility]) Heart rate 50 /min 50 /min [facility] ([facility]) Diastolic blood pressure 63 mm[Hg] 63 mm[Hg] [facility] ([facility]) Systolic blood pressure 100 mm[Hg] 100 mm[Hg] [facility] Body weight 116.00 [lb_av] 116.00 [lb_av] [facility] ([facility]) Body height 64 [in_i] 64 [in_i] [facility]'4Temp 97.5 Body weight 52.391 kg 52.391 kg [facility] ([facility]) Body mass index (BMI) [Ratio] 19.8 kg/m2 19.8 k g/m2 [facility] ([facility]) Body weight 115.50 [lb_av] 115.50 [lb_av] [facility] ([facility]) Body height 64 [in_i] 64 [in_i] [facility] ([facility]) 5'4" Diastolic blood pressure 84 mm[Hg] 84 mm[Hg] [facility] ([facility]) Systolic blood pressure 130 mm[Hg] 130 mm[Hg] [facility] ([facility]) Body temperature 97.7 [degF] 97.7 [degF] [facility] ([facility]) Diastolic blood pressure 60 mm[Hg] 60 mm[Hg] [facility] ([facility]) Systolic blood pressure 110 mm[Hg] 110 mm[Hg] [facility] ([facility]) Body weight 53.128 kg 53.128 kg [facility] ([facility]) Body mass index (BMI) [Ratio] 20.1 kg/m2 20.1 k g/m2 [facility] ([facility]) Body weight 117.12 [lb_av] 117.12 [lb_av] [facility] ([facility]) Body height 64 [in_i] 64 [in_i] [facility] ([facility]) 5'4" Body weight 50.576 kg 50.576 kg [facility] ([facility]) Body mass index (BMI) [Ratio] 19.1 kg/m2 19.1 k g/m2 [facility] ([facility]) Body weight 111.50 [lb_av] 111.50 [lb_av] [facility] ([facility]) Body height 64 [in_i] 64 [in_i] [facility] ([facility]) 5'4" Body temperature 96.0 [degF] 96.0 [degF] [facility] ([facility]) Diastolic blood pressure 57 mm[Hg] 57 mm[Hg] [facility] ([facility]) Systolic blood pressure 94 mm[Hg] 94 mm[Hg] [facility] Systolic blood pressure 110 mm[Hg] 110 mm[Hg] [facility] ([facility]) Diastolic blood pressure 60 mm[Hg] 60 mm[Hg] [facility] ([facility]) Oxygen saturation in Arterial blood by Pulse oximetry 94 % 94 % [facility] ([facility]) Body temperature 95.9 [degF] 95.9 [degF] [facility] ([facility]) Body height 64 [in_i] 64 [in_i] [facility] ([facility]) 5'4" Body weight 113.25 [lb_av] 113.25 [lb_av] [facility] ([facility]) Body mass index (BMI) [Ratio] 19.4 kg/m2 19.4 k g/m2 [facility] ([facility]) Body weight 51.370 kg 51.370 kg [facility] ([facility]) Systolic blood pressure 94 mm[Hg] 94 mm[Hg] [facility] Diastolic blood pressure 60 mm[Hg] 60 mm[Hg] [facility] ([facility]) Body height 64 [in_i] 64 [in_i] [facility] ([facility]) 5'4" Body weight 107.25 [lb_av] 107.25 [lb_av] [facility] ([facility]) Body mass index (BMI) [Ratio] 18.4 kg/m2 18.4 k g/m2 [facility] ([facility]) Body weight 48.649 kg 48.649 kg [facility] ([facility]) ID Date Data Source [id number] 10/19/2020 04:08:37 PM [facility] Name Value Range Interpretation Code Description Data Source(s) WEIGHT RECORDED 115.74 lb 115.74 lb [facility] WEIGHT RECORDED 121.69 lb 121.69 lb [facility] WEIGHT RECORDED 119.27 lb 119.27 lb [facility] WEIGHT RECORDED 112.66 lb 112.66 lb [facility] Body height Measured 65.35 in 65.35 in [facility] TRANSFER FROM [facility] ID Date Data Source [id number] 10/19/2020 08:57:12 AM [facility] Name Value Range Interpretation Code Description Data Source(s) TRANSFER FROM [facility] ID Date Data Source [id number] 10/19/2020 08:57:12 AM [facility] Name Value Range Interpretation Code Description Data Source(s) TRANSFER FROM [facility] ID Date Data Source [id number] 03/26/2020 02:33:40 PM EDT [facility] Name Value Range Interpretation Code Description Data Source(s) WEIGHT RECORDED 104 lb 104 lb [facility] Body height Measured 64 in 64 in [facility] ID Date Data Source [id number] 10/18/2020 03:26:53 AM [facility] Name Value Range Interpretation Code Description Data Source(s) WEIGHT RECORDED 105.16 lb 105.16 lb [facility] Body height Measured 64 in 64 in [facility] WEIGHT RECORDED 105.16 lb 105.16 lb [facility] Body height Measured 64 in 64 in [facility] Patient Treatment Plan of Care Planned Activity Planned Date Details Description Data Source (s) Amylases 963263 UNT / Endopeptidases 114 000 UNT / Lipase 87216 UNT Delayed Release Oral Capsule 10/19/2020 06:00:00 PM [facility] lidocaine (LIDODERM) 5 % patch 1 patch 10/19/2020 09:00:00 AM [facility] Amylases 216899 UNT / Endopeptidases 114 000 UNT / Lipase 97473 UNT Delayed Release Oral Capsule 10/18/2020 04:39:41 PM [facility] Amylases 074413 UNT / Endopeptidases 114 000 UNT / Lipase 72629 UNT Delayed Release Oral Capsule [Creon] 06/16/2019 12:00:00 AM [facility] Ranitidine 150 MG Oral Tablet 06/14/2019 12:00:00 AM [facility] Warfarin Sodium 5 MG Oral Tablet 02/08/2019 12:00:00 AM [facility] Dexamethasone 4 MG Oral Tablet 12/06/2018 12:00:00 AM [facility] Acetaminophen 500 MG / Diphenhydramine H ydrochloride 25 MG Oral Tablet [Tylenol PM] [facility] Acetaminophen 325 MG / Oxycodone Hydrochloride 5 MG Oral Tablet [facility] Acetaminophen 500 MG Oral Tablet [facility] Diphenhydramine Hydrochloride 25 MG Oral Capsule [facility] ixazomib (NINLARO) capsule U [facility] Cholecalciferol 1000 UNT Oral Capsule [facility]
--- OUTSIDE RECORDS SUMMARY | 2020-12-22 10:03 | CCD | Continuity of Care Document ---
Author Author Yoana GRANGER MD Organization Unknown Address [address], [address] [place] [address] Phone [phone] Care Team Providers Care Software Publisher Name Role Phone Isma Herrera M.D. AUTM [phone] Kings Guillermo M.D. 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 02/08/2019 Renvela 800mg Tablets 2 tabs after meals 1 with snacks Unknown Restasis 0.05% Emulsion 1 GTT Each Eye bid Unknown Levothyroxine Sodium 50mcg Tablets 1 by mouth every day Unknown Dexamethasone 4mg Tablets 1 by mouth Day Of Treatment Unknown Creon [id number] Caps DR Part 2 capsules three times a day with meals, 1 capsule with snacks Unknown Atorvastatin Calcium 10mg Tablets 1 qd Unknown Tramadol HCL 50mg Tablets 1 every 12 hours as needed for pain Unknown Immunizations Description No Information Available Vital Signs Date Vital Result Comment 09/25/2020 12:59pm BP Systolic 167 mmHg Done On Left Thigh BP Diastolic 91 mmHg Done On Left Thigh Heart Rate 78 /min Height 64 inches 5'4" Weight 113.25 lb BMI (Body Mass Index) 19.4 kg/m2 [place] Body Weight 120 lb Weight 51.370 kg BSA (Body Surface Area) 1.54 m2 08/21/2020 1:31pm BP Systolic 105 mmHg BP Diastolic 68 mmHg Height 64 inches 5'4" Weight 112.00 lb BMI (Body Mass Index) 19.2 kg/m2 [place] Body Weight 120 lb Weight 50.803 kg BSA (Body Surface Area) 1.53 m2 Results Test Acquired Date Facility Test Result H/L Range Note Prothrombin Time/Inr 04/04/2020 [facility] enter Main Lab [address] [place] [id number] [phone] Prothrombin Time 24.4 seconds High 11.8-14.0 Inr 2.22 Normal 1 1 THERAPUTIC HUMAN INR VALUES INDICATIONS NORMAL RANGES PROPHYLAXIS/TREATMENT OF: VENOUS THROMBOSIS 2.0-3.0 PULMONARY EMBOLISM 2.0-3.0 PREVENTION OF SYSTEMIC EMBOLISM FROM: TISSUE HEART VALVES 2.0-3.0 ACUTE MYOCARDIAL INFARCTION 2.0-3.0 VALVULAR HEART DISEASE 2.0-3.0 ATRIAL FIBRILLATION 2.0-3.0 MECHANICAL VALVES(HIGH RISK) 2.5-3.5 RECURRENT MYOCARDIAL INFARCTION 2.5-3.5 Procedures Date Code Description Status 04/04/2020 83296 Moderate Sedation Se rvices; Same Phys Intl 15 Mins; PT >= 5 Years Completed 04/04/2020 29984 Dialysis Circuit W/ Transluminal Balloon Angioplasty, Peripheral Completed Medical Devices Description No Information Available Encounters Type Date Location Provider Dx Diagnosis Office Visit 08/21/2020 1:30p [facility] Edilma hylton MD Z99.2 Dependence on renal dialysis N18.6 End stage renal disease Office Visit 07/20/2020 10:30a [facility] Edilma hylton MD Z99.2 Dependence on renal dialysis N18.6 End stage renal disease Office Visit 06/26/2020 2:45p [facility] Edilma hylton MD Z99.2 Dependence on renal dialysis Z48.812 Encntr for surgical aftcr fo llowing surgery on the circ sys N18.6 End stage renal disease Office Visit 05/25/2020 9:15a [facility] Edilma hylton MD N18.6 End stage renal disease Z99.2 Dependence on renal dialysis Office Visit 05/08/2020 2:45p [facility] Edilma hylton MD N18.6 End stage renal disease Z99.2 Dependence on renal dialysis Office Visit 04/12/2020 2:15p [facility] THAD Reagan N18.6 End stage renal disease Z99.2 Dependence on renal dialysis Assessments Date Code Description Provider 08/21/2020 Z99.2 Dependence on renal dialysis Rachna Granger MD 08/21/2020 N18.6 End stage renal disease Edilma saucedo MD 07/20/2020 Z99.2 Dependence on renal dialysis Rachna Granger MD 07/20/2020 N18.6 End stage renal disease Edilma saucedo MD 06/26/2020 Z99.2 Dependence on renal dialysis Rachna Granger MD 06/26/2020 Z48.812 Encounter for surgic al aftercare following surgery on the circulatory system Edilma Granger MD 06/26/2020 N18.6 End stage renal disease Edilma saucedo MD 05/25/2020 N18.6 End stage renal disease Edilma saucedo MD 05/25/2020 Z99.2 Dependence on renal dialysis Rachna Granger MD 05/08/2020 N18.6 End stage renal disease Edilma saucedo MD 05/08/2020 Z99.2 Dependence on renal dialysis Rachna Granger MD 04/12/2020 N18.6 End stage renal disease THAD Rivera 04/12/2020 Z99.2 Dependence on renal dialysis THAD Brown 04/04/2020 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
--- OUTSIDE RECORDS SUMMARY | 2020-12-22 10:03 | CCD | Summary of Care ---
Author Author [facility] Organization [facility] Address Unknown Phone Unavailable Care Team Providers Care Supervisor Purification Name Role Phone Isma Herrera MD PCP Encounter Details Care Team Description Date Type Department 10/16/2020 [facility] TRANSFER CE NTER Encounter [address] [place] [address] Allergies Comments Active Allergy Reactions Severity Noted [...] Active pancrelipase, Take 2 720 capsule 3 Cui-Ckaq-Tuah, (CREON) capsules by 9 03435 units CPEP capsule mouth Three times daily [...] file Date Recorded COVID-19 Exposure Response 10/16/2020 11:33 AM EST In the last month, have you [...] Done Comments Hepatitis C Screening (B. 1945 [id number]) MMR Vaccines (1 of 1 - 1946 [...]
[2020-12-22 10:23] LABS: ERYTHROCYTE SEDIMENTATION RATE 53 mm/hr (0-30)
[2020-12-22 10:32] LABS: ALBUMIN 3.3 GM/DL (3.2-5.2); BILIRUBIN,TOTAL 1.3 MG/DL (0.2-1.0); CALCIUM LEVEL 9.7 MG/DL (8.8-10.2); CREATININE FOR GFR 2.89 MG/DL (0.55-1.30); POTASSIUM SERUM 4.5 MEQ/L (3.5-5.1); TOTAL PROTEIN 6.1 GM/DL (6.4-8.2)
--- NOTE | 2020-12-22 12:35 | REPVR ---
PROCEDURE INFORMATION: Exam: MR Head Without Contrast Exam date and time: 12/22/2020 10:31 AM Age: 75 years old Clinical indication: Visual disturbance; Additional info: Vision change h/o CVA TECHNIQUE: Imaging protocol: MR of the head without contrast. COMPARISON: MRI-Brain without Contrast 10/16/2020 2:26 PM FINDINGS: Brain: There is no extra-axial collection or intra-axial mass. Previously describe subdural hemorrhages are not identified. Mild diffuse volume loss is within the range of normal for patient age. There are scattered foci of T2/FLAIR white matter hyperintensity, nonspecific but typically small-vessel ischemia in this age group. There is no diffusion restriction. Cerebral ventricles: Normal. No ventriculomegaly. Bones/joints: Unremarkable. Paranasal sinuses: There is mild ethmoid mucosal thickening. There is near complete opacification of the left maxillary sinus. Mastoid air cells: There is focal fluid within mastoid air cells. Orbital cavity: Unremarkable. Soft tissues: Unremarkable. IMPRESSION: No acute findings. Electronically signed by: Reena Mckeon On 12/22/2020 12:36:09 PM
--- NOTE | 2020-12-22 12:37 | REPVR ---
PROCEDURE INFORMATION: Exam: MR Angiogram Head Without Contrast, Arteries Exam date and time: 12/22/2020 10:31 AM Age: 75 years old Clinical indication: Visual disturbance; Transient visual loss; Additional info: Vision change h/o CVA TECHNIQUE: Imaging protocol: MR angiogram head without contrast. Exam focused on the arteries. COMPARISON: MRA BRAIN W/O CONTRAST 10/16/2020 2:26 PM FINDINGS: ANTERIOR CIRCULATION: Right internal carotid artery: Intracranial segment is patent with no significant stenosis. No aneurysm. Right middle cerebral artery: No occlusion or significant stenosis. No aneurysm. Right anterior cerebral artery: No occlusion or significant stenosis. No aneurysm. Left internal carotid artery: Intracranial segment is patent with no significant stenosis. No aneurysm. Left middle cerebral artery: No occlusion or significant stenosis. No aneurysm. Left anterior cerebral artery: No occlusion or significant stenosis. No aneurysm. POSTERIOR CIRCULATION: Right vertebral artery: The right vertebral artery is diminutive, likely normal anatomic variant. Left vertebral artery: No occlusion or significant stenosis. No aneurysm. Basilar artery: No occlusion or significant stenosis. No aneurysm. Right posterior cerebral artery: No occlusion or significant stenosis. No aneurysm. Left posterior cerebral artery: There is a origin of the left posterior cerebral artery. IMPRESSION: No acute abnormality. Electronically signed by: Reena Mckeon On 12/22/2020 12:37:59 PM
[2020-12-22 14:56] VITALS: BP 129/61
== END 2020-12-22 14:26 | disposition home or self-care (01) ==
LOC: M ED 09:04 → EDBD 09:04 → M ED 14:26
DX: R51.9 Headache, unspecified (principal); E03.9 Hypothyroidism, unspecified; K50.90 Crohn's disease, unspecified, without complications; Z79.01 Long term (current) use of anticoagulants; Z79.899 Other long term (current) drug therapy; Z85.79 Personal history of other malignant neoplasms of lymphoid, hematopoietic and related tissues; Z87.891 Personal history of nicotine dependence; Z88.1 Allergy status to other antibiotic agents; Z95.828 Presence of other vascular implants and grafts; Z99.2 Dependence on renal dialysis
CPT/HCPCS: 70450; 70544; 70551; 80053; 85025; 85652; 96374; 99284; J2270; J2405

== ENCOUNTER 2020-12-23 18:42 | Emergency (ER) | payer MEDICARE, OTHER ==
[~2020-12-23] VITALS: Ht 162.6 cm; Wt 48.6 kg
[2020-12-23] MEDS ORDERED: ACETAMINOPHEN TAB 650MG DOSE (2X325MG) PO ONE (19:00)
--- NOTE | 2020-12-23 19:10 | REPVR ---
PROCEDURE INFORMATION: Exam: CT Head Without Contrast Exam date and time: 12/23/2020 6:45 PM Age: 75 years old Clinical indication: Injury or trauma; Fall; Blunt trauma (contusions or hematomas) TECHNIQUE: Imaging protocol: Computed tomography of the head without contrast. Axial and coronal reformatted images were created and reviewed. Radiation optimization: All CT scans at this facility use at least one of these dose optimization techniques: automated exposure control; mA and/or kV adjustment per patient size (includes targeted exams where dose is matched to clinical indication); or iterative reconstruction. COMPARISON: CT Head without contrast 12/22/2020 9:22 AM FINDINGS: Brain: No CT evidence of acute intracranial hemorrhage or acute territorial infarction. No significant mass effect or midline shift. Basal cisterns patent. Cerebral ventricles: Normal in size and configuration. Bones/joints: No acute osseous abnormality. Paranasal sinuses: Mild left ethmoid mucosal thickening. Near complete opacification of the left maxillary sinus. Mastoid air cells: Partial opacification of the dependent mastoid air cells. Soft tissues: Grossly unremarkable. IMPRESSION: 1. No CT evidence of acute intracranial pathology. 2. Additional findings, as above. Electronically signed by: Ramiro Sharpe On 12/23/2020 19:10:41 PM
--- NOTE | 2020-12-23 19:12 | REPVR ---
PROCEDURE INFORMATION: Exam: CT Cervical Spine Without Contrast Exam date and time: 12/23/2020 6:45 PM Age: 75 years old Clinical indication: Injury or trauma; Fall; Blunt trauma TECHNIQUE: Imaging protocol: Computed tomography images of the cervical spine without contrast. Axial, coronal and sagittal reformatted images were created and reviewed. Radiation optimization: All CT scans at this facility use at least one of these dose optimization techniques: automated exposure control; mA and/or kV adjustment per patient size (includes targeted exams where dose is matched to clinical indication); or iterative reconstruction. COMPARISON: No relevant prior studies available. FINDINGS: Bones/joints: Osteopenia. Reversal of the normal cervical lordosis. No CT evidence of acute fracture, dislocation or subluxation. Mild retrolisthesis of C3 on C4 and C5 on C6. Mild anterolisthesis of C4 on C5. Alignment otherwise anatomic. Mild levoscoliosis. Vertebral body heights maintained. Discs/Spinal canal/Neural foramina: Mild multilevel degenerative changes, characterized by disc space narrowing, osteophytosis and uncovertebral and facet joint hypertrophy. Mild multilevel spinal canal and neural foraminal narrowing, most pronounced at C5-C6. Lungs: Grossly unremarkable. Soft tissues: Grossly unremarkable. IMPRESSION: 1. No CT evidence of acute cervical spine traumatic injury. 2. Additional findings, as above. Electronically signed by: Ramiro Sharpe On 12/23/2020 19:12:39 PM
[2020-12-23 19:52] LABS: HEMATOCRIT 28.9 % (36.0-47.0); HEMOGLOBIN 9.1 g/dl (12.0-15.5); MEAN CORPUSCULAR HEMOGLOBIN 32.7 pg (27.0-33.0); MEAN CORPUSCULAR HGB CONC 31.5 g/dl (32.0-36.5); PLATELET COUNT, AUTOMATED 157 10^3/uL (150-450); RED BLOOD COUNT 2.78 10^6/uL (4.00-5.40)
[2020-12-23 20:02] LABS: INR 2.38; PROTHROMBIN TIME 26.5 SECONDS (12.5-14.3)
--- OUTSIDE RECORDS SUMMARY | 2020-12-23 20:21 | CCD ---
Author Author [facility] Organization [facility] Address Unknown Phone Unavailable Care Team Providers Care Underwear Welter Name Role Phone Rloy Licona MD Unavailable Unavailable Roly Licona MD [...] Unavailable Unavailable Adelina Scott MD Unavailable Unavailable Aedlina Scott MD Unavailable Unavailable Adelina Scott MD [...] MAUREEN-BRETT, MAXIMILIANO PA Unavailable Unavailable Loya, L Amanda RPA Unavailable [...] Duncan BOGGS Unavailable Unavailable Fish, B Duncan BOGSG Unavailable Unavailable Fish, B Duncan BOGGS Unavailable [...] is protected by Article 27-F of the [facility] Public Health law. If you continue you may have access to information: Regarding HIV / AIDS; Provided by facilities licensed or operated by the [facility] Office of Mental Health; or Provided by the [facility] Office for People With Developmental Disabilities. If such information is present, then the following [facility] mandated warning applies: This information has been [...] law may result in a fine or retirement sentence or both. A general authorization for the release of medical or other information is NOT sufficient authorization for further disc losure. Family History Family Member Name Family Member Gender Family Member Status Date o f Status Description Data Source(s) Unknown Unknown Problem [facility] ([facility]) Unknown Female Problem [facility] ([facility]) Unknown Male Problem [facility] ([facility]) Unknown Male Problem [facility] ([facility]) Encounters Encounter Providers Location Date Indications Data Source(s ) Outpatient Attender: ARI PRADO MD [id number] 11/08/2020 12:00:00 AM EST Nontraumatic subdural hemorrhage, unspecified [facility] Nontraumatic subdural hemorrhage, unspec ified Inpatient Attender: SHANNON LEAL MDAd mitter: SHANNON LEAL MDReferrer: PROVIDER SYSTEM IN EI 10/18/2020 12:00:00 AM EST - 10/19/2020 04:08:00 PM EST Nontraumatic subdural hemorrhage, unspecified [facility] Nontraumatic subdural hemorrhage, unspec ified Patient discharged. Outpatient Referrer: PROVIDER SYSTEM IN 10/16/2020 1 1:35:00 AM EST ischemic stroke [facility] ischemic stroke Outpatient 10/16/2020 12:25:00 AM EST head blee d [facility] head bleed Outpatient Attender: Maximiliano [place]/ [place] 08/21/2020 01:30:00 PM EDT [facility] ([facility] Outpatient Attender: Maximiliano Pa/[place] 07/20/2020 10:30:00 AM EDT [facility] ([facility] Outpatient Attender: Maximiliano Pa[place] 06/26/2020 02:45:00 PM EDT [facility] ([facility] Outpatient Attender: ELGIN ONEIL Physical Therapy 06/23/2020 09:18:00 AM EDT [facility] ([facility]) Outpatient Attender: HONORIO PIÑA MD Physical Therapy 09:16:00 AM EDT [facility] ([facility]) Outpatient Attender: Maximiliano Pa/[place]/ [place] 05/25/2020 09:15:00 AM EDT [facility] ([facility] Outpatient Attender: Maximiliano [place]/ [place] 05/08/2020 02:45:00 PM EDT [facility] ([facility] Outpatient Attender: Hilario Licona MD Main Office 04/18/2020 03:30:00 PM EDT [facility] ([facility]) Outpatient Referrer: Adelina Scott MD [email or web address] 04/03 12:00:00 AM EDT - 04/18/2020 02:29:58 PM EDT [facility] Outpatient Attender: Adelina MESARICKEY-SJP.RICKEY 04/03 12:00:00 AM EDT - 04/13/2020 12:10:12 PM EDT [facility] Office Visit Attender: Amanda Lane[place] 04/12/2020 02:15:00 PM EDT [facility] ([facility] Outpatient Attender: Katalina ONEIL Main office [facility] 03/09/2020 01:45:00 PM EDT [facility] ([facility] ) Office Visit Attender: Maximiliano Pa/[place]/ [place] 03/09/2020 11:45:00 AM EDT [facility] ([facility] Outpatient Referrer: Duncan Owen MD 02/23/2020 01:34:00 PM EDT [facility] Outpatient Referrer: Duncan Owen MD 02/01/2020 07:39:00 AM EDT [facility] Outpatient Referrer: Duncan Owen MD 01/12/2020 07:57:00 AM EDT [facility] Outpatient Attender: Amanda Pa/[place] 01/11/2020 08:45:00 AM EDT [facility] ([facility] Outpatient Referrer: Duncan [...] AM EDT - 06/14/2019 09:02:53 AM EDT [facility] Outpatient Referrer: KATHY DANILO 05/17/2019 09:18:32 AM EDT - 05/17/2019 11:59:00 PM EDT Other chronic pancreatitis [facility] Other chronic pancreatitis Outpatient Attender: MAXIMILIANO CLIFFORD PAReferrer: KATHY GRAJEDA 03/23/2019 12:00:00 AM EDT [facility]TEST Medications Medication Brand Name Start Date Product Form Dose Route Admi nistrative Instructions Pharmacy Instructions Status Indications Reaction Description Data Source(s) Amylases 326226 UNT / Endopeptidases 114 000 UNT / Lipase 85392 UNT Delayed Release Oral Capsule pancrelipase (Vje-Qeyh-Swdf) (CREON) capsule 72,000 units of lipase pancrelipase (Doy-Zkje-Ykjn) (CREON) capsule 72,000 un its of lipase 10/19/2020 06:00:00 PM EST Oral active 72,000 units of lipase, Oral, Three Times Daily-With Meals, First dose on Fri10/19/20 at 1800, For 30 days [facility] Medication administered onsite lidocaine (LIDODERM) 5 % patch 1 patch [id number] 0 09:00:00 AM EST 1 {patch} Transdermal active 1 patch, T ransdermal, Daily Standard, First dose on Fri10/19/20 at 0900, For 3 days
Apply to shoulders or upper back.12 hours on - 12 hours off
[facility] Medication administered onsite Amylases 297180 UNT / Endopeptidases 114 000 UNT / Lipase 71174 UNT Delayed Release Oral Capsule pancrelipase (Wdm-Ivrf-Zibm) (CREON) capsule 72,000 units of lipase pancrelipase (Ycr-Tnmu-Mibd) (CREON) capsule 72,000 un its of lipase 10/18/2020 06:00:00 PM EST Oral aborted 72,000 units of lipase, Oral, Three Times Daily-With Meals, First dose (after last modification) on Fri10/18/20 at 1800, For 30 days [facility] Medication administered onsite Sevelamer hydrochloride 800 MG Oral Tablet sevelamer ( RENAGEL) tablet 1,600 mg sevelamer (RENAGEL) tablet 1,600 mg 10/18/2020 06:00:00 PM EST 1600 m g Oral active 1,600 mg, Oral, Three Times Daily-With Meals, First dose on Fri10/18/20 at 1800, For 3 days
Give with meals
[facility] Medication administered onsite Amylases 742162 UNT / Endopeptidases 114 000 UNT / Lipase 90918 UNT Delayed Release Oral Capsule pancrelipase (Ijs-Staw-Lged) (CREON) capsule 36,000 units of lipase pancrelipase (Qxf-Uwfw-Rsfz) (CREON) capsule 36,000 un its of lipase 10/18/2020 04:39:41 PM EST Oral active 36,000 units of lipase, Oral, PRN, snacks, Starting Fri10/18/20 at 1639, For 30 days [facility] Medication administered onsite Lorazepam 1 MG Oral Tablet LORazepam (ATIVAN) tablet 1 mg LORazepam (ATIVAN) tablet 1 mg 10/18/2020 01:30:00 PM EST 1 mg Oral comple travis 1 mg, Oral, 1 TIME IMAGING, Fri10/18/20 at 1330, For 1 dose
Give prior to MRI.May crush tab if unable to swollow
[facility] Medication administered onsite sodium chloride 0.9 % bolus 500 mL [id number] 10/18/2020 01:00:00 PM EST 500 mL Intravenous completed 500 mL, Intravenous, Once, Fri10/18/20 at 1300, For 1 dose [facility] Medication administered onsite 1 ML heparin sodium, [...] NOTIFY MDMinimum systolic BP : 90 mmHGThe pbx wire chief may lower the net fluid removal to 0 and may give 200 cc NS Bolus (upto 3 boluses) for hypotention as defined by floor BP shown below. Call MD after the 3rd bolus.
[facility] Medication administered onsite Levothyroxine Sodium 0.075 MG Oral Table t levothyroxine (SYNTHROID) tablet 75 mcg levothyroxine (SYNTHROID) tablet 75 mcg 10/18/2020 06:00:00 AM EST 75 ug Oral active 75 mcg, Oral, Daily at 0600, First dose on Fri10/18/20 at 0600, For 30 days [facility] Medication administered onsite 300 mg 09/22/2020 12:00:00 [...] TABLET BY MOUTH EVERY DAY SOLD: 07/14/2020 [facility] 5 % 06/24/2020 12:00:00 AM EDT [...] ON 10/26 SOLD: 10/25/2019 [facility] Amylases 527408 UNT / Endopeptidases 114 000 UNT / Lipase 57379 UNT Delayed Release Oral Capsule [Creon] Creon 65925 UNIT Oral Capsule Delayed Release Particles (pancrelipase (Lue-Faey-Cisf)) Creon 19979 UNIT Oral Capsule Delayed Release Particles (pancrelipase (Yfl-Phmr-Xboe)) 06/16/2019 12:00:00 AM EDT 2 {capsule} Oral aborted Take 2 cap sules by mouth Three times daily before meals [facility] Ranitidine 150 MG Oral Tablet ranitidine (ZANTAC) 150 MG tablet ranitidine (ZANTAC) 150 MG tablet 06/14/2019 12:00:00 AM EDT 300 mg Oral active Take 2 tablets by mouth Two Times Daily [facility] 4 mg 05/06/2019 12:00:00 AM EDT tablet [...] aborted Take 5 mg by mouth daily [facility] Dexamethasone 4 MG Oral Tablet dexamethasone (DECADRON ) 4 MG tablet dexamethasone (DECADRON) 4 MG tablet 12/06/2018 12:00:00 AM EST 4 mg Oral aborted Take 4 mg by mouth Daily as dire cted 1 day before chemo [facility] Acetaminophen 500 MG / Diphenhydramine H ydrochloride 25 MG Oral Tablet [Tylenol PM] Tylenol PM Extra Strength 500-25 MG Oral Tablet (diphenhydramine-acetaminophen) Tylenol PM Extra Strength 500-25 MG Oral Tablet (diphenhydramine-acetaminophen) 1 {tbl} Oral abort ed Take 1 tablet by mouth nightly as needed [facility] Acetaminophen 325 MG / Oxycodone Hydroch loride 5 MG Oral Tablet oxycodone- acetaminophen (PERCOCET) 5-325 MG per tablet oxycodone-acetaminophen (PERCOCET) 5-325 MG per tablet 1 {tbl} Oral aborted Take 1 tablet by mouth every 4 (four) hours as needed for Pain [facility] ixazomib (NINLARO) capsule 866849 3 mg Oral abor travis Take 3 mg by mouth Indications: 1 cap on day 1,8,15 2 hrs after meal [facility] Cholecalciferol 1000 UNT Oral Capsule Vi tamin D-3 (CHOLECALCIFEROL) 25 MCG (1000 UT) CAPS Vitamin D-3 (CHOLECALCIFEROL) 25 MCG (1000 UT) CAPS 2000 U Oral aborted Take 2,000 Units by mouth ev ananth morning [facility] Acetaminophen 500 MG Oral Tablet acetaminophen (TYLENO L) 500 MG tablet acetaminophen (TYLENOL) 500 MG tablet 500 mg Oral aborted Take 500 mg by mouth as needed for Pain [facility] Diphenhydramine Hydrochloride 25 MG Oral Capsule diphenhydrAMINE (BENADRYL) 25 mg capsule diphenhydrAMINE (BENADRYL) 25 mg capsule 25 mg Oral aborted Take 25 mg by mouth as needed for Itchi ng (PRIOR DIALYSYS) [facility] Insurance Providers Payer name Policy type / Coverage type Policy ID Covered libertarian ID Covered libertarian's relationship to [place] Policy [place] Plan Information MEDICARE [id number] SP [id number] CENTER [id number] SP [id number] MEDICARE C [id number] S [id number] O [id number] MEDICARE A [id number] Self [id number] U [id number] Self [id number] Rosy [id number] MEDICARE [id number] Rosy [id number] WPS MV-VAPCCC [facility] [id number] SP [id number] 'S ADMINISTRATION [id number] SP [id number] O [id number] S [id number] MEDICARE OUTPATIENT M [id number] S [id number] [facility] [place] P [id number] S [id number] CENTER [id number] SP [id number] P [id number] S [id number] S [id number] S [id number] MEDICARE -O/P [id number] 18 [id number] [place] Self Program Medigap Part B Self CENTER-O/P [id number] MEDICARE PART A -O/P [id number] 18 [id number] Medicare Part B Medicare Primary Self Commercial Self [place] Medicare Primary Self Hac Commercial Self CENTER [id number] SP [id number] Medicare Part B Medicare Primary [id number] Self [id number] Commercial [id number] Self [id number] MEDICARE [id number] SP [id number] D Medicare Part B Medicare Primary [id number] Self [id number] Commercial [id number] Self [id number] CENTER [id number] SP [id number] [place] Medicare Primary [id number] Self [id number] Hac Commercial [id number] Self [id number] Medicare Part B Medicare Primary [id number] Self [id number] Commercial [id number] Self [id number] MEDICARE C [id number] S [id number] D MEDICARE [id number] SP [id number] D Medicare Part B Medicare Primary [id number] Self [id number] Commercial [id number] Self [id number] [place] Medicare Primary [id number] Self [id number] [place] Medicare Primary [id number] Self [id number] Commercial [id number] Self [id number] [place] Medicare Primary [id number] Self [id number] [place] Medicare Primary [id number] Self [id number] Commercial [id number] Self [id number] Medicare [facility] Medicare Primary [id number] Self [id number] Hac Commercial [id number] Self [id number] Medicare Part B Medicare Primary [id number] Self [id number] Commercial [id number] Self [id number] Medicare [facility] Medicare Primary [id number] Self [id number] Hac Commercial [id number] Self [id number] [place] Primary [id number] Self [id number] Program Medigap Part B [id number] Self [id number] [place] Primary [id number] Self [id number] Hac Commercial [id number] Self [id number] [place] Medicare Primary [id number] Self [id number] [place] Medicare Primary [id number] Self [id number] Commercial [id number] Self [id number] MEDICARE A [id number] Self [id number] D [place] Primary [id number] Self [id number] Program Medigap Part B [id number] Self [id number] [place] Primary [id number] Self [id number] Program Medigap Part B [id number] Self [id number] SHANI PART B C [id number] S [id number] 'S ADMINISTRATION [id number] SP [id number] Problems, Conditions, and Diagnoses Code Display Name Description Problem Type Effective Dates Data Source(s) I62.00 Nontraumatic subdural hemorrhage, unspec ified Nontraumatic subdural hemorrhage, unspecified Diagnosis 10/18/2020 02:46:41 PM [facility] expanding subdural hematoma expanding subdural hematom a Diagnosis 10/18/2020 03:47:00 AM [facility] ischemic stroke ischemic stroke Diagnosis 10/16/2020 11:3 5:00 AM [facility] head bleed head bleed Diagnosis 10/16/2020 12:25:00 AM 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 on renal dialy sis Diagnosis 04/18/2020 01:25:15 PM EDT [facility] R07.89 Other chest pain Other chest pain Diagnosis 04/18/2020 01 :25:15 PM EDT [facility] R06.02 Shortness of breath Shortness of breath Diagnosis 0 04/18/2020 01:25:15 PM EDT [facility] Surgeries/Procedures Procedure Description Date Indications Data Source(s) BLOOD COUNT COMPLETE AUTO&AUTO DIFRNTL WBC COUNT CBC AND DIFFER ENTIAL Routine 10/19/2020 4:18 AM EST 10/19/2020 04:18:00 AM [facility] BASIC METABOLIC PANEL CALCIUM TOTAL BASIC METABOLIC PANEL Routi ne 10/19/2020 4:18 AM EST 10/19/2020 04:18:00 AM [facility] MRI BRAIN BRAIN STEM W/O CONTRAST MATERIAL MR BRAIN WITHOUT CONTRAST 86119 Routine 10/18/2020 6:16 PM EST 10/18/2020 06:16:00 PM [facility] EEG ROUTINE STUDY EEG ROUTINE STUDY Routine 10/18/2020 4:00 PM EST 10/18/2020 04:00:30 PM [facility] RESPIRATORY PATHOGEN PANEL RESPIRATORY PATHOGEN PANEL Routine 10/18/2020 5:17 AM EST 10/18/2020 05:17:00 AM [facility] COVID-19 PCR COVID-19 PCR Routine 10/18/2020 5:17 AM EST 10/18/2020 05:17:00 AM [facility] CT HEAD/BRAIN W/O CONTRAST MATERIAL CT HEAD WITHOUT CONTRAST 70 450 STAT 10/18/2020 4:55 AM EST 10/18/2020 04:55:00 AM [facility] PROTHROMBIN TIME PROTIME INR Routine 10/18/2020 4:26 AM EST 10/18/2020 04:26:00 AM [facility] BLOOD COUNT COMPLETE AUTO&AUTO DIFRNTL WBC COUNT CBC AND DIFFER ENTIAL Routine 10/18/2020 4:26 AM EST 10/18/2020 04:26:00 AM [facility] THYROID STIMULATING HORMONE TSH TSH Routine 10/18/2020 4:26 AM EST 10/18/2020 04:26:00 AM [facility] PHOSPHORUS INORGANIC PHOSPHORUS LEVEL Routine 10/18/2020 4:[address] 10/18/2020 04:26:00 AM [facility] HEMOGLOBIN GLYCOSYLATED A1C HEMOGLOBIN A1C Routine 10/18/2020 4:26 AM EST 10/18/2020 04:26:00 AM [facility] LIPID PANEL LIPID PANEL Routine 10/18/2020 4:26 AM EST 10/18/2020 04:26:00 AM [facility] COMPREHENSIVE METABOLIC PANEL COMPREHENSIVE METABOLIC PANEL Rou camelia 10/18/2020 4:26 AM EST 10/18/2020 04:26:00 AM [facility] Dialysis Circuit W/ Transluminal Balloon Angioplasty, Periph eral 04/04/2020 12:00:00 AM EDT [facility] Moderate Sedation Services; Same Phys Intl 15 Mins; PT >= 5 Years 04/04/2020 12:00:00 AM EDT [facility] Av Graft W/ Goretex 02/07/2020 12:00:00 AM EDT [facility] ([facility] Removal Tunneled Central Venous Access Dev W/Sub Port/Pump 12/22/2019 12:00:00 AM EST [facility] Results ID Date Data Source [id number] 11/08/2020 03:04:42 PM [facility] Name Value Range Interpretation Code Description Data Anabella rce(s) Supporting Document(s) Progress Note [facility] SRKONt9cIiRAVwZb09/QUWasWXMif0GrRVqgHZe7TMdwZNAkZ2ZwOPV3wS9xDTJ6ELgYAiXxHkOuVOP6 lbm [file] AgICAgICAgICAgICAgICAgICAgICAgICAgICAgICAg ICAgICAgICAgICAgICAgICAgICAgICAgICAgICAgICAgICAgDQogICAgICAgICAgICAgICAgICAgICAg ICAgICAgICAgICAgICAgICAgICAgICAgICAgICAgICAgICAgICAgICAgICAgICAgICAgICAgICAgICAg ICAgICAgICAgICAgICAgICAgDQogICAgICAgICAgIC AgICAgICAgICAgICAgICAgICAgICAgICAgICAgICAgICAgICAgICAgICAgICAgICAgICAgICAgICAgIC AgICAgICAgICAgICAgICAgICAgICAgICAgICAgDQogICAgICAgICAgICAgICAgICAgICAgICAgICAgIC AgICAgICAgICAgICAgICAgICAgICAgICAgICAgICAg ICAgICAgICAgICAgICAgICAgICAgICAgICAgICAgICAgICAgICAgDQogICAgICAgICAgICAgICAgICAg ICAgICAgICAgICAgICAgICAgICAgICAgICAgICAgICAgICAgICAgICAgICAgICAgICAgICAgICAgICAg ICAgICAgICAgICAgICAgICAgICAgDQogICAgICAgIC AgICAgICAgICAgICAgICAgICAgICAgICAgICAgICAgICAgICAgICAgICAgICAgICAgICAgICAgICAgIC AgICAgICAgICAgICAgICAgICAgICAgICAgICAgICAgDQogICAgICAgICAgICAgICAgICAgICAgICAgIC AgICAgICAgICAgICAgICAgICAgICAgICAgICAgICAg ICAgICAgICAgICAgICAgICAgICAgICAgICAgICAgICAgICAgICAgICAgDQogICAgICAgICAgICAgICAg ICAgICAgICAgICAgICAgICAgICAgICAgICAgICAgICAgICAgICAgICAgICAgICAgICAgICAgICAgICAg ICAgICAgICAgICAgICAgICAgICAgICAgDQogICAgIC AgICAgICAgICAgICAgICAgICAgICAgICAgICAgICAgICAgICAgICAgICAgICAgICAgICAgICAgICAgIC AgICAgICAgICAgICAgICAgICAgICAgICAgICAgICAgICAgDQogICAgICAgICAgICAgICAgICAgICAgIC AgICAgICAgICAgICAgICAgICAgICAgICAgICAgICAg VFHoZJXjTULeUWKjOJDpWMTnRXQvAHZxYUVoOVNhZZIeMUVmLYTcOPWvSBRzIYk8E4itLKFlCAUvKM4j IYh7Ab6+OCrAMtCdEUA0zsJcyK0ZNO8bq5UsBIzyFNIbu0PnPXy8PK9ZDUCoQDiuGW4DZUobra9FFBEt KFTyyVPUv0peRuClMAY0VJJaJayxQV5WVDBgI0wqvs RbTHUgSCOAWCcxTUDQREolPBCRER0ZXhCqM3HbbB82WBVYPz6+LRgpknKpXvjIDpU7IKYmc9NuZVn4QT 8CUKMuYjfgl6IcQqohVHBYTWdeQC9XOQT3IXB8ICLbGc6IMKWiY435ttPgWJ8HNt7VMtUdSH4vtr3WGy tsOEWqDqzZFyc7AMkkFF3QoNRzKRfXgc0wagVkxnKU g1BlbqOpaDHQkUY9WR5aEZYoBFMIttLcWWkgXF1JHGQ2OHWzEe8jEDAvDQYcToYdQZHERD9OTFYhSTOr lQHbVEOtWJFBMV5PAEsoUMN9LVGatsAayTHqNUzoSU5SIJVlhgVnFcEgSHSFERj+Jq9VGZ0zz3FmHEsk HWRaPN1ufk7DKVuPRkEsA1W2oLOxO1Y7RDmqXi2EKK KkOHUnDnWdCGQJGJraDV0TPX7rzbG8JW0BiSPoZUMaRFQapIXqYDa5C52iiIDfYSowJY1BIJK+Karina+Pg 7VQYKyUQGhVMPsLcKsCXGBTjBuH5TeB0ZSc3ArP9QzQJ93pTvqplEsAMguQR6TIZ0fNLIjAGNMNK2VfC TtpO2exzSsEzWnKYCEMeSaC28puQJkVKYqCMT8FBCu Gk7ZWGAtM8AhhqOgxNxyroXnKNWoHIHDDO7SOXjcdcVerZSqpZinHC62gKtmOQ0HNd7LRsZuJS8gpw8S yTGfNl4INCNhTV1QVGQqXIRkTRGeSLI3MHMcOjGsBAlyESBlQKCoWQH5WNVdTUHtLZ0OEkIaJAYyBfD7 DhvxTXUsLIYukb8LXLYbMKUmEeZ4XuQjKWNwTZOpDJ kqGBZiSIBfIJA4PZJyOSDlYQ5SKkFfFYUgMEA2NYUkONUpTOHwkv7XZRErZBRqLTo2UyXtLFLhWCSiSX bsNXTpCBR8WFC1HLDiWNOfGE9BHyTdEAIhTHleXsgeNMDpQSZjjz9DOGHpSSYmCPN8XSIjWYTsTVKbKW xkZPXqDBF1RYI3CTBbQRGmBG6COtKpJFBeWLX2EILl HYSfDSYeuv6EWVAbFUJpQLtnUXFlHYIrJBPxTGprJIImPRXrRFy7XOTyHQUbZJ0DJiDqCRNiTUD1EYFs ZUKsBSIvnf0TVQLcLECbCjF6NYHjPIYlEQFdNShsTECnFNHoAfHxLQTcRWHaIR1JLpVlQZQjOdZ2HkOj TCOcKWPesk3VYULeYJXzSey1ZKXtXBAiKVWnGEvuBE KvJAS4BRj8FZBwMXVtIG4LYqBwXXBoDhR0UTdkIERpLCXopz3QFLHuLYEnLYB3HbCqFAGcAFPcGBrgTR ZcCXP3SFI7VUXaBJUjYB2PBeQwSWWfMkK5VsrbMRTeNDLqky5KDBVzMRUgAJsdOETaSERrZKHbBLcaIP ZiUCO8MtXpFJZvFCAjZI2QEoXwPLHvPds8UlFnTDWp MQYboy0GLSUxWLByBbf9UaToCCCeYNAbUGyiBREaEMZ7TSr2CWRdKRRlIR8VSiQvRLkcLBYXZcq4LBah D3g9LMTlYV8IK5Ono5NhVumhUTCXNFavPN5jltDxBRLsJz0OV4vOUmycJ1N7RXZ7YVD1FtRzF2SbN5C6 KDV9HwdzPMVjToTjYH9zNYYgNVYuXWdeWpolZ9EdQI RcViC9RMmgDAZpJRLvSWA5ZdQfGF3RFs0BThX6UBF2yCNqVv1HWvwzSlkIZcSsTP7CRGw= ID Date Data Source [id number] 10/19/2020 03:19:29 PM EST [facility] Name Value Range Interpretation Code Description Data Anabella rce(s) Supporting Document(s) Discharge Summary [facility] LRTPHj2aEqDFOmUw00/TEXdrWWWuc2ZuGKilBDa9WSoaWKYrU2XtJSL8qV0bXYD5HCvMYuCyTnOfCvM8 lbm [file] AgMTYgMCBSDQogICAgICAvRjEgMTkgMCBSDQogICAg RUVrDeMiIuDyQANSQUyuJWWaYLRdOqVbAcQqOPVSGk5ESaOvWAHhCV1dviChwSL8ZPP+Jz8QQCWtDK6C uZPHK8MpaZRlLPjmB2XAYT4QEQF1PQ2AhYOpLN3TsYIJM8UxkYFrGw3kZTYuu3IiGx3qC0RWPGUDNZFr XEdgKVhvDJPwFVe0C7E6BYKjT3XGL376uRFalNw1Je 5nT4JOHJfSPaXvLPqvOErtVAYiKPp1B5H1RZEwJ3SEV4VmIbTpphTpO9T+ZtVuXTOARN0VZFEFPPu9H2 F8yBOrH1U0vZlHbSL6NA9ITJ0CiPKqfXRty74+AvXILeUiNKIbG6CHZIUFCoBbQKqqTNoiXKFhVMm0B5 X7OEVeM3YYS5ghB6t1SU7+AfCHXbJiNXFcGs1XMcJo Tv0QHiYfTY8wfl6WSgcrYLTaRhbWHqd5X6oddjm8tPTrCaF6L1L5DyT7kOQlBZ3XU1J1dUXoKYX0BPHl dGE+Kb1Po3XxYDFnSWl5I7iwDJHjDMToXeDscO42H++9prdsiWJ4V8n1CYILtCJtlPnWinRuK3hTULH4 a7I9HUn/Rp5PVUM3yRw1oNFyHSAcFHg0uR3wcPs1Av BuSP67VRAxTRiucI8jBmp1J7Jhf6WpMw9pIt5cyTYaVk7SRjFnZKY7cgHhXbADQtZ4bMjlbyxnGXR2P6 t0lIM7Rg48l9lbayPtn7XcRxU7LNjuTAMtDpKwuiPmXCT2ylFjgS2qstTeEh5UTHPcUKspdjFdRoSPSf 9CUoEnHZ89ApvgzM2ngFM+DQogICAgICAgICAgICAg ICAgICAgICAgICAgICAgICAgICAgICAgICAgICAgICAgICAgICAgICAgICAgICAgICAgICAgICAgICAg ICAgICAgICAgICAgICAgICAgICAgICAgICAgDQogICAgICAgICAgICAgICAgICAgICAgICAgICAgICAg ICAgICAgICAgICAgICAgICAgICAgICAgICAgICAgIC AgICAgICAgICAgICAgICAgICAgICAgICAgICAgICAgICAgICAgDQogICAgICAgICAgICAgICAgICAgIC AgICAgICAgICAgICAgICAgICAgICAgICAgICAgICAgICAgICAgICAgICAgICAgICAgICAgICAgICAgIC AgICAgICAgICAgICAgICAgICAgDQogICAgICAgICAg ICAgICAgICAgICAgICAgICAgICAgICAgICAgICAgICAgICAgICAgICAgICAgICAgICAgICAgICAgICAg ICAgICAgICAgICAgICAgICAgICAgICAgICAgICAgDQogICAgICAgICAgICAgICAgICAgICAgICAgICAg ICAgICAgICAgICAgICAgICAgICAgICAgICAgICAgIC AgICAgICAgICAgICAgICAgICAgICAgICAgICAgICAgICAgICAgICAgDQogICAgICAgICAgICAgICAgIC AgICAgICAgICAgICAgICAgICAgICAgICAgICAgICAgICAgICAgICAgICAgICAgICAgICAgICAgICAgIC AgICAgICAgICAgICAgICAgICAgICAgDQogICAgICAg ICAgICAgICAgICAgICAgICAgICAgICAgICAgICAgICAgICAgICAgICAgICAgICAgICAgICAgICAgICAg ICAgICAgICAgICAgICAgICAgICAgICAgICAgICAgICAgDQogICAgICAgICAgICAgICAgICAgICAgICAg ICAgICAgICAgICAgICAgICAgICAgICAgICAgICAgIC AgICAgICAgICAgICAgICAgICAgICAgICAgICAgICAgICAgICAgICAgICAgDQogICAgICAgICAgICAgIC AgICAgICAgICAgICAgICAgICAgICAgICAgICAgICAgICAgICAgICAgICAgICAgICAgICAgICAgICAgIC AgICAgICAgICAgICAgICAgICAgICAgICAgDQogICAg ICAgICAgICAgICAgICAgICAgICAgICAgICAgICAgICAgICAgICAgICAgICAgICAgICAgICAgICAgICAg TPKsJJBbJLJhUYEhUKRmTCZnAFMdEOUzHBRzGJIvCYLdVUSlNEe8S6koTBKcVSUbLH8mYLs9Ku0+DQoN PqFoJHV8rpXlhC6VQQ9eu2NpJMrqWWIsk9OcOHm0IV 8HZQRoUWpkQJ5JCDpxkz0FAUMjABHxuBYFn0ipNiOpBUX4LSPdLfpyUS3AFTUkG4vvjlSlEMZtMWTFQI nqWXYYSIsqSOAIXVDkGCPzBrVgDeOyVLFgHV8MIFEaL599qaJhPM2VVj6LOiCyQE8zzc5CBbpqFZUzXj qMFbz3PQzaAK4LlRGjoDQrEPXkSSYNWlHfG2yin1Zh OscmDLUSPZigDQ2Av3FveEHpLTk+Fe0ZKL2iw7XvYJzuHZLvBS5bzh3JPLlKKfIeD6LjoQqrHZXyb1Nw XKXoPGLToX2uCVD1KSF2LBLibdbgEKNesowuPRobmmtvFSYrOYBxVZFoUQjqFsFfPWIyLpsvGjSWTJnN EvWtN6Fvx3UsSnJ5FDPiZtFkXLdlGFDsNiC6KP77fW bwQN9QFVHmGVDcGM22OLZ2HJMjOe6HLd4OJoIaHL1ctd2IJeJgMTUiXpdMLxy8LFtfAE7XjCIhU4VtdN Uwj0vHNxEcS9UJKLC2KVDlKd7RSSGdSpQmXYCbFCucGM9uMVChJWWBoObkyaC2OL0KZC6rwrKqPS9NSc TwFf4bFe1GOxCsV4QgN1InFLLeUBFZWVpqWW3HYUqh MP2hYI6Dd7MEwOFjeI8rck3SGCRqOIBhKywfcm1XRiatN3E4zWciCKFsElsyFMLSGIniHI6MTHBuREN2 VUHcEyLvWCUUZuXzC47jDD5PY0Luu57gHkN5GCEtEsQlGNcmBC79cVfnkaRdaVXcqZffUA5XKr8+DQpl bmRvYmoNCnhyZWYNCjAgMzENCjAwMDAwMDAwMDAgNj A5SmHzPv9MZHKhDTWoRNPiAsOzJFPcWJHeIQjiPNNgIMBwJEE5LJViJQSnWR1OFpHfHQXkGsG6JkIcST PgORQylv3HEUMdROXaWCN5XgCjBKXvXYBkNCpjTESeAASbSSf0LMQiURGuQT4CShNsDKKjYAQ1QLIsTO LiASNiug2VRTYlVYNgYbRlXwJjRIIkSTXuGBpdWBIi ELF6YgR2CVXoCAFhPK4AHlKsVWXuQKFmAOjhUTCrODKgih9PZVPuLVUnCGI2QsWgBDEtOQCcIQhqUNIy VATwACYbCQVjIEIfLO9KRbZmOGAxHYNiODbiPUOpNUSxev2KLXJuARIxWDS1SxOxUKLtKXIhRWspZOMp QIE7MMLoCYPqKITpVQ1CQmSnHJHgQXJqMaMuGDGbMC Yylh3LICEvHMPoUfO9OUFvDVClAGZoRVrzRZJjPJF7AzItEFMtFQQeII2JNeFqGKNeAJh0MIAdABRfJV Asjt9RFQZbZFNoJjfkDVCsWZFxWBZmWQveSVLmFJJ4OUbfZLPbKBDgSW2TCxItOMRhZPovUDYuUGQeKB Bgta2EAGTfFDEqMTU3SdFiNDZtGNYzHMapHYJtAGQ9 QMAbUIUmBTEaVR7AXxJqPPUxAxV5SLUbJXIeCGJbor1KUAYsVROwTMD7RLYoOMRoNUFiBRgoLBXvQWLl OgsyVERbYESqRW5EDvDeFSZsMmVkYyToOGPsTIIsug2YNGBxAKKqJoY4FwTjFJBxQJGbNKupNXLzIWYh HxB9LMNgVHJhIN7EJaEzPWVaOhB3PRFxGFZkQYUwea 2VkXWhsOglld4RXQjHHk7ArQplPVBlMYywBl7twJCmEAJqISEOPx9GxnFvCGEnTTZFXUcgPYXbIMNpDa ikSNW7YPX3DXZ6RHWbNQI0KZZkTEX1NKvrOmI9HqY1SlW0GAVxCUt6BQRqFdJ0WRI4Feg4DZC1HJq6Cj NmYjY+LC9vQJy+Wb4Nd2XohxB5hjUyVRjqEgB4QF2YQOQNF7KWBb== ID Date Data Source [id number] 10/19/2020 10:02:18 AM [facility] Name Value Range Interpretation Code Description Data Anabella rce(s) Supporting Document(s) [facility] IWUJLm3wTbVZHwHf58/UKTjmYVJsd5AiBHxpQOt5CNfjFXJnO7DiOYX2jE2yWUI4FWbDNlEeSpWcArB2 lbm [file] MDYyMCAwMDAwMCBuDQowMDAwMDExNTgwIDAwMDAwIG 6YQiMjOKByDFK8AhdbZAPxWKVivv7TQFFhJPFvTYh1XZWnUCWfKSBnTDioSFVsOCSiGTAaQTNoKQTnBW 0PFcCcUOGqMXY2CZTuLCVfABPkqw5PGHYoWDIoSvpyBfBrPZAzAQGsYScxXRBlHMU6JQBjVRZkDHTlDW 5PVeGpRVyyXJTGXgz8REhaJ4z4QGByLB5RV2Cow8Ay SrGtUKTANLyvZL9azzBwRHRuEs0VV0uEOilwGfI5AHN7JyX6FBMuBTCsJiZgUOi0PlLaOkl4ORF1Gl6q NYWvDxL5FrYuOiCoRMN8NjGaEiHlLtQ0RaHtOxQ7QaAjIyVwIX8CPt4MKxF1BTS4yAVeHw6ICTMdTAFE TrUrIF9ZBJl= ID Date Data Source [id number] 10/19/2020 08:41:57 AM [facility] MR BRAIN WITHOUT CONTRAST [id number] ULTInterpreted by:SOCO Vanessa10/18/2020 5:45 PMMR BRAIN WITHOUT CONTRAST [id number] CLINICAL INFORMATION: 75-year-old female with history of [...] Date Data Source [id number] 10/19/2020 05:03:01 AM [facility] Name Value Range Interpretation Code Description Data Anabella rce(s) Supporting Document(s) Leukocytes [#/volume] in Blood by Automated count 3.5 10*3/uL 4-10 [facility] Erythrocytes [#/volume] in Blood by Automated count 3.01 10*6/uL 4.1- 5.3 [facility] Hemoglobin [Mass/volume] in Blood 10.6 g/dL 11.5-15.5 [facility] Hematocrit [Volume Fraction] of Blood by Automated count 30.8 % 3 6-45 L [facility] Erythrocyte mean corpuscular volume [Entitic volume] b y Automated count 102.5 fL 80-96 [facility] Erythrocyte mean corpuscular hemoglobin [Entitic mass] by Automated count 35.2 pg 27-33 [facility] Erythrocyte mean corpuscular hemoglobin concentration [Mass/volume] by Autom[facility] count 34.4 g/[facility] width [Ratio] by Automated count 16.5 % 11.5-14.5 [facility] Platelets [#/volume] in Blood by Automated count 138 10*3/uL 150-400 [facility] Differential cell count method - Blood [facility] Neutrophils/100 leukocytes in Blood by Automated count 53 % [facility] Lymphocytes/100 leukocytes in Blood by Automated count 34 % [facility] Monocytes/100 leukocytes in Blood by Automated count 10 % [facility] Eosinophils/100 leukocytes in Blood by Automated count 2 % [facility] Basophils/100 leukocytes in Blood by Automated count 1 % [facility] Neutrophils [#/volume] in Blood by Automated count 1.89 10*3/uL 1.8-7 .0 [facility] Lymphocytes [#/volume] in Blood by Automated count 1.22 10*3/uL 1.2-4 .0 [facility] Monocytes [#/volume] in Blood by Automated count 0.35 10*3/uL 0-0.8 [facility] Eosinophils [#/volume] in Blood by Automated count 0.06 10*3/uL 0-0.5 [facility] Basophils [#/volume] in Blood by Automated count 0.02 10*3/uL 0-0.2 [facility] Nucleated erythrocytes/100 leukocytes [Ratio] in Blood by Automated count 0 /100{WBCs} 0-0 [facility] ID Date Data Source [id number] 10/19/2020 06:04:57 AM [facility] Name Value Range Interpretation Code Description Data Anabella rce(s) Supporting Document(s) Bicarbonate [Moles/volume] in Serum 21 mmol/L 22-29 L [facility] Chloride [Moles/volume] in Serum or Plasma 104 mmol/L 98-107 [facility] Creatinine [Mass/volume] in Serum or Plasma 3.96 mg/dL 0.50-0.90 H [facility] Confirmed Glucose [Mass/volume] in Serum or Plasma 80 mg/dL 70-140 [facility] Potassium [Moles/volume] in Serum or Plasma 4.2 mmol/L 3.4-5.1 [facility] Hemolyzed Sodium [Moles/volume] in Serum or Plasma 136 mmol/L 136-145 [facility] Urea nitrogen [Mass/volume] in Serum or Plasma 18 mg/dL 8- [facility] Confirmed Anion gap 3 in Serum or Plasma 11 mmol/L 8-15 [facility] Osmolality of Serum or Plasma by calculation 282 mosm/kg 275-300 [facility] Confirmed Creatinine/Urea nitrogen [Mass Ratio] in Serum or Plasma 4 [facility] Confirmed Calcium [Mass/volume] in Serum or Plasma 8.7 mg/dL 8.8-10.2 L [facility] Glomerular filtration rate/1.73 sq M pre dicted among non-blacks [Volume Rate/Area] in Serum or Plasma by Creatinine-based formula (MDRD) 10 mL/min/1.73m2 >60 L [facility] Glomerular filtration rate/1.73 sq M pre dicted among blacks [Volume Rate/Area] in Serum or Plasma by Creatinine-based formula (MDRD) 12 mL/min/1.73m2 >60 L [facility] ID Date Data Source [id number] 10/18/2020 03:19:57 PM [facility] Name Value Range Interpretation Code Description Data Anabella rce(s) Supporting Document(s) History and Physical [facility] JOKLPh9xGmSVDtFy60/GLYgmYWTke8BsXTpiUCr6OKgcENVyI0BwQPR2wM9lYZW6HSiJStJaBkYvEbR7 lbm [file] AgICAgICAgICAgICAgICAgICAgICAgICAgICAgICAg BPCbNOAuMVJjHPMgSHTxBEXkWJMvUXKpJAHqMLYnMHUqGALuDPBtREFwNKJcCUXyYHXqQI6MHHRvLMTy ICAgICAgICAgICAgICAgICAgICAgICAgICAgICAgICAgICAgICAgICAgICAgICAgICAgICAgICAgICAg ICAgICAgICAgICAgICAgICAgICAgICAgICAgICAgIC BoZN7BAZOsEEIyHQKaGYAvVSGjWAXaGGCgXWHnVODhEPZcDYQoUCDmPUTqOOCjJJFdZPJbPXSqPCYaWD ZaAQXiUSSqZHTzCFEiRPXpIEMsIWJtHQLnAJExJYAbOMLdABEiPXAuNGIhRZ0CXBDkELZfUIBjUBOgEZ AgICAgICAgICAgICAgICAgICAgICAgICAgICAgICAg PSRnMCYaPEHuLNLlJHCdLYApLZYhBRVqVYOpVWCwCDObKDMpESLoTSLrBPWtAALoHHGbTUTcXV8FFIDz ICAgICAgICAgICAgICAgICAgICAgICAgICAgICAgICAgICAgICAgICAgICAgICAgICAgICAgICAgICAg ICAgICAgICAgICAgICAgICAgICAgICAgICAgICAgIC RiABMdMZ5CYTVyZUCtWSSpVUFmTCLiZZFtOMFiZUAtZVHqGEXeFJCiGLItCHAlFZZbDTHtWGWmTWDdXS WtSFIqQCCcRLEjLQWrGSFxANVpTXPgMVRkYPQiKOXyVDJwWNKpFWSfQNAlQGFgFJ0STWWzYFVzOXEuQU AgICAgICAgICAgICAgICAgICAgICAgICAgICAgICAg LTZfNEOqDKDbQISxIPVvUOIeQDRrNRHjYQBuORUqWSZqZDUqKJJuJZDoZBMrOOWgAUOqPDRvQGDpDR7H ICAgICAgICAgICAgICAgICAgICAgICAgICAgICAgICAgICAgICAgICAgICAgICAgICAgICAgICAgICAg ICAgICAgICAgICAgICAgICAgICAgICAgICAgICAgIC MeCYQzNJFyNK8MBYDpLDRmIXNaFHNnKGRzKVPhRMAxFJJdTEUqFHJrHCVeEDGyEBQfOLEfQECkLUCbSN UeNUHvZRPdWCTfCVVmEQZuTMCcQBIqOSYpJTFkTZBsAHYgYOYvRVInGUGqRRDyQKTxMS0JGBLtEPSzSQ AgICAgICAgICAgICAgICAgICAgICAgICAgICAgICAg ICAgICAgICAgICAgICAgICAgICAgICAgICAgICAgICAgICAgICAgICAgICAgICAgICAgICAgICAgICAg YD5KVA50lRTmh5H2JQKvYO3odne/Qs2UDSfymqXhuSAqJM2MHjNcVZ2nxe6QRqKnOR2fhs7TOLsMOjMj M3D2zYKdPGNzAIWWMwYgB30jODoxJy71IIgbTUQkQq FtAPg2Ci7PWeJnK8qnQOZwZjC4BGXyPkQ6CEQqQkH2PYVcArEpKBQwLMIbRKPoOLOPLGI4QATaIrYiXq ZlFLXoPK7DXNLoH194idAtMm7NWc9PSkYhIB7ppe2VAMKcFPWmOakMWlv9CNljMW6AgFQyqWM0KXNfRP MZArOiZ9smf5CvVOUyWDYKCDxxVI2Kq2PziMGnYDl+ Xs3WAM6nu2AyXUn6KUKrAL9zoh1MHFzGKzBwH1IhiPucNWrwMEUpqBPRCVIwWKNrUVLlfUSqLG2IFpDe ZIHuMWXnKNMtKiJoHTWcZWbwApLUALjXOaPcP4Dzu4ObVdO8ZLQaTeHuOVzyWYOgRpE9NC75yIfzLU1B MJWcRMKoVW15CXAiJUTyHc5MQf6STeMuZV5kxd4ZYK VpIHRbIbuITje1TBdwOF2NzHRhQ7WnmQLtb4jATgShT6WWKFU4LGPpQv6NEPGyYtKkKAMmYKbdAZ9cQP HlRDTKhEvviyI8BQ5ZRY8wpmYoGU0HHkZnFb2aPf5MYeIfG8IbS8DbRAZqPRKYHJhwAE6QHQwlDD3yOI 0Ug7EToSEajL0mlc1THVOfBNQgKptzrq1YSksjW4O9 eAawVKIgPASsOPXTYYjdBS7QXILaAEM9ATAgPUHgMLIFYzZwI34wVV6RZ0Prb66uEsO7RRGnChViQTnh ME63zVjcxwWrkVFmqAzpIL9WYl0+NWhiroMwYhiRGckbTRHJMdBzQXGSWtTgTPIiLIBfBGTjQwG9VhHc Qh8ZDOVqVXHdFAOrGpCsNPQaXUSnWAduAIChJGC9SR E0VKLqUTZdPQ4VGeQxNJZpFLZ9UHYbTDMfNCActh4ICTFoXSOgZWU7AoYuCVOrBISzTMkuXSJbDGItZy HkORTpGHPuTA7QGnGsVIUjAUD6HXFcIFJiPIJrmn5MRDHqPQOoSnmdNuMhAHLiDSFlNBhxOVByTTP4BK M3NQZmRHHkKN5GXmRtQWHnAOYwTKDbTYLlRQMxeh9Q OALpMNJiJBG7UWNzLKCmXDHbLWkrOPFeKXQpLMz6WZDmTLYzGV7ZKhSbSMIpFFD8IMVuDEKjLTNfvo7K GGCtIZTlKjziJBRfTSWhIIDrTTlzCSEnGXY4UUL3LQFcLSFzXP5YBrEzNRJlXAloHSKsLBLtMBAzkp9N BUOoQIOjZRM0ROCcVBLmRVSrWGnkQIBqNMKtZqG6LO QnPPEbYV5VLoTuCMKxDsV7EWFkKFHoLSCahn1ULRLoGEHqZLxgEiMfMKPbTQGcQActVLBaNHZfDNq2ED NiSSHtNW4YThNgRALdFfMiWXNhVITmPAOiyo4TVTEgVTQdPoM8IBMoVNRqWOPdNVbkFSDcPPPmOoWhUF NnBFZcGN2MKoKkMWBhEuU9ScOfDUOpJDDavo3ABGXt THYwFNM0LEBxUVSuSZMgDDblJKGaBBH8YafuHMNlCPFdVF6QYaUcAKWnGjP6AMBbVHJwNNKfti8KXCHu NJOlJBu9LSJjVUYbRDUlOTomYQViUMC4EMG3ULQvHNLwEA3YOyCtMJFtOrFkJlDsELWaSSXvee2UYVGq OYTwGdKmYXFoAJDbWPWpNOamNONiFXR7WSRaILEpAI ItUD5WOeWjXEExQfedCfQfXJAtHUKzai2QMPNbUBCyQGC0LPYnNJBoPJEfUUmcALImELO2USU1GBRxFZ VhFG3GWjPyOLSkPiy8FdKaAKDfRKTsaz3ZRMJiVMDnTIX6ZEMcMGLgLOCbTRtiMBSgOBU9MST9ZDKfTY IkRV9CUoLsUGYrYYKlMqVdQXCoCRVble3BZWHuWOT7 EDd8HKDuMDMpGGJgXGzpWSKdJJUhPPY0RDQjMXEfKE2VPoEnOVUgJPL7FoQiTRWzQHLjny3BdJQaxVbh bk8ZCYkAZp6MsZzcNQEiZItsXb1fuIE9NdMlLEZXWg5XziWnPLSwIXXPJTjgMKLdILM8JjNeMwyfWkRb OORjEteyCIJfQDT9WAZfRWL0JMMyAgF4ByDyY9T0GO JqQlNwF7UkLqDdNZApVnKnBTG6GCVnWYO+AZ8zBCl+Vn2Ls7AemcV8liWfQXl2OwOpAO3PGRKSS5WXIt == ID Date Data Source [id number] 10/18/2020 02:47:42 PM [facility] Name Value Range Interpretation Code Description Data Anabella rce(s) Supporting Document(s) [facility] IHTHVk0iXrUYJpVo22/GJKwkNBSsc8YgLWqnCEl1VXgwXVAwZ5OtBLJ6qR0zBBJ4DIzJRqXsTcSdOjW4 lbm [file] D6DPHW4HQOSrLB8Wb384UNr3GG3RMVRcVBCrINHUXs CpEIOkEQ5ENHNrBwGfMZS+Yj7DFHRdRX2LC7XiXPM8KIj8BU5+MBtpFGMgQ2T9vGaQkMS2DLH7NC5CHt CZQmDiKYz5F6B5xGFpB3X0nGeQyLH4QS3UFQ8RMKUvNE3+EqNtY2NRNKiIEVR4RU0WwLNiND3VrJSSY6 UeqJDoJk8zOYDjeCdkwGd+GhUnA8WUCBLNOLA6HR6I mCMsVF9AiTEVH7JuxHVyYu3oLTzvOuZaXS3fBL3+PG3VOKYHTsGIYeMvMMvtOEcdAYBtLHv4S0F6TANc R6SEW8M8W1f8l0jgmw4+VX1ZFVFrED6HFnMFZWrMNZL9JV9MyPAiBD8TySCGH0GbgRRhNc8wNHwwvPYz bj4+BW2TMLAxUPX+Ea4CCUK+He7LMT1gg9SmIAxjTR PhTV1oyc5SXWzrOLKbN9RbEUBrBEozD1PmyQcyFU6JYCtpQXnaXZ1LNNMaMHJ3QE4+KWfduWIpRI7ISs w/nEUmV1bvwOMlNFkayv9j01x/RdBeVV3gRgXUAY7cT7PexPk3ebRRro2TI9hhElswLv7+EQmwTLy0Qj imuJ8sdACtpTe5iDP6hf1ePa4iDSqjIBtrfI6xltS4 lS3eWQJpMuJ4vfV2vDJ3PB4pJn0VXPFuBJuqCFM7EoUTQDmpzX3nQtGeJz2fdFC8bUifZ5q9tg53Ur3h rldbTMe7DJ3oVd2qKt3iXYXlc5ooyUV3AT0fKcc+IQyuQAItDC0yHMF7AoBKEo7OEIL2Y6p8aW0tqPR1 JA4ODsIeARZqIQFnKFVeUSUkQMKiUTAfQNCdNHPiGQ AgICAgICAgICAgICAgICAgICAgICAgICAgICAgICAgICAgICAgICAgICAgICAgICAgICAgICAgICAgIC AgICAgICAgICAgICANCiAgICAgICAgICAgICAgICAgICAgICAgICAgICAgICAgICAgICAgICAgICAgIC AgICAgICAgICAgICAgICAgICAgICAgICAgICAgICAg ICAgICAgICAgICAgICAgICAgICAgICANCiAgICAgICAgICAgICAgICAgICAgICAgICAgICAgICAgICAg ICAgICAgICAgICAgICAgICAgICAgICAgICAgICAgICAgICAgICAgICAgICAgICAgICAgICAgICAgICAg ICAgICANCiAgICAgICAgICAgICAgICAgICAgICAgIC AgICAgICAgICAgICAgICAgICAgICAgICAgICAgICAgICAgICAgICAgICAgICAgICAgICAgICAgICAgIC AgICAgICAgICAgICAgICANCiAgICAgICAgICAgICAgICAgICAgICAgICAgICAgICAgICAgICAgICAgIC AgICAgICAgICAgICAgICAgICAgICAgICAgICAgICAg ICAgICAgICAgICAgICAgICAgICAgICAgICANCiAgICAgICAgICAgICAgICAgICAgICAgICAgICAgICAg ICAgICAgICAgICAgICAgICAgICAgICAgICAgICAgICAgICAgICAgICAgICAgICAgICAgICAgICAgICAg ICAgICAgICANCiAgICAgICAgICAgICAgICAgICAgIC AgICAgICAgICAgICAgICAgICAgICAgICAgICAgICAgICAgICAgICAgICAgICAgICAgICAgICAgICAgIC AgICAgICAgICAgICAgICAgICANCiAgICAgICAgICAgICAgICAgICAgICAgICAgICAgICAgICAgICAgIC AgICAgICAgICAgICAgICAgICAgICAgICAgICAgICAg ICAgICAgICAgICAgICAgICAgICAgICAgICAgICANCiAgICAgICAgICAgICAgICAgICAgICAgICAgICAg ICAgICAgICAgICAgICAgICAgICAgICAgICAgICAgICAgICAgICAgICAgICAgICAgICAgICAgICAgICAg ICAgICAgICAgICANCiAgICAgICAgICAgICAgICAgIC AgICAgICAgICAgICAgICAgICAgICAgICAgICAgICAgICAgICAgICAgICAgICAgICAgICAgICAgICAgIC AgICAgICAgICAgICAgICAgICAgICANCjw/lVVrK2xxoXFdpiH8Z0deZf7ZWj9ZYG4lq0IdVRScJIwtow EjRfmZTyUaVJAjRlwRIws5VQjaPE1JuJYoH8IeM8Mg MEptDA8MHQQqQATybXLsPFCrJXZzMiJ1DICfZTycLX1UzMZyMFiqBQClBEJbWdNwZWAgVC3FHGSdV835 hcThHd7QVv5DFvLjIB3cvd2SWXBoZWXcGwxXDcd4LGmkEH9NwSLvnODrMiVoBNMGHeCwA2uii2XjFHcd ECZTERjwFA3Pj8NlnLNlLNw+Wt1PKQ8us3SiFLndFv YjML8lap8LTSsUYmDzU9DzuBqsEBBhxsU0vTUjYDU2FBTgqE4qoKHrO4RfuZCqYYEeyV6vnthlUN8GZu BteVVlYy7fCf7fFFSlYXDsQfH4ODLKOJ2MUEBqKKSivJIiLMPiYQSJVW7WOMtiHYN0SCXvpbSciOJnBT gqOM0UUIBmyhWoMEFfWHZWNRt+Cp9XIS3gx7TsBLwo DWGiXO5avx4RUOgHNvObD3K6xYSkI8X1NOtlGf4KTIFxMUJvBAJpWAMTRGdsWA0AKK9yluS1VW1QuQAo ZZNsRKHjlWVqEPs0N51ajAIySRjxYQ3IGGT+Karina+Za0HJJHxWUJvNITnYrEwZCECEtUcC9OpH1BXv3Gz A4DnFO43dTnlsrSvQYrzIF0FLT9mDFNgWOQFQD6KtW NvzH5volFkCdZdSYGNTtSrP94uyHRvILBzBOG9IZMbEy7AYHTqT1VvckMmrGltukXgBWHbNPQMTA6BDW fmlhWwwTPurVhmDY18nGvtQQ2CSf3BTiAmZK8oqn5WcEGzFv5VPVIlEP5DFZMiDAHnAJCoLVB1VWOpNu QdWMosWYNdHHCwQIL9MFDdLWNaGA4PXaDvJJLcWKv1 TDlmASYmZCCwyi3ZILQxAUMlKJN0BJDuVNMqWKCbJWjwRAOaUORnSPC6TBZvALXsFE9BOrVaUZSzNOV6 EhNqCJOqVPWgsr1NEONhSZIrMED7LMQtVVVeXLBrHFzrGLKaEZK5TXO3DUWgINZeKW5LCpAiYPGrYXSr ROYyXLPhPHBczw9OAJWhBCHzMbM8KOGeKSRxDXZfYZ meDLArSRB2Dle4JRYiQCXpPO0DXbZmMLYxURI3YcYpOEDnZIBkfz0IKXLnFFNrTyAzSAQqBQDyMCQoRE ezDLGkNEM0KhX6RPMhSDFxIB9ONfXcZIQoFMe4AiPpCXZsYNZkyv1ENREgYEXdMKVrLLBhTIWkQKVpUN mtQIIrGLR4Ojv8BPByNFGkYR2IJsPlPJNkFZo8ZQAu JLUbPFHnbe5BAAHkGHLkUAd2AONyDAVkUCBuFWe6njMhtAKiFEc1VL5HF0KavvPwZVuQUm9Ip380MLW6 LTLfYo5UZ3wuAj3mSTDtAKNXYs4YATb3WCTxO7IcDEEsJFc4VkS4D9LpTzX2RTUrLEO6FBokB0R+IDwx O7ByQeF3GPNvHxX4GZZ3XlX3YJIyLMDnZta1JWFwEH 4bQOWBGx3+RCgpnUTlsXrpVNTNMbXwZqClZTkkJAJVQg9B ID Date Data Source [id number] 10/18/2020 01:59:37 PM [facility] Name Value Range Interpretation Code Description Data Anabella rce(s) Supporting Document(s) Consultation [facility] LNWRYz7hEiYYSsUs97/VTVmgPWYub8AgUIrkEOo9DAjcTEAcN7JqPWJ8xC8aKPK7BMoRQaUdGoJrZyU3 lbm [file] QzMtZcMhLSIyFVx7DdcfLU5cQAOUMt6+HWtshIPobVuuDGSYLeE3ZUg9CGlvOTTMEm9X ID Date Data Source [id number] 10/18/2020 09:06:26 AM EST [facility] Name Value Range Interpretation Code Description Data Anabella rce(s) Supporting Document(s) Consultation [facility] EIXSNq1lOxFSEoQy48/LFAcrYOEio8KfTVibGHl9VHbqNULtF4ZxQVD7wH1qDYR2MVlGAaBoNsVeAnN5 lbm [file] AgICAgICAgICAgICAgICAgICAgICAgICAgICAgICAgICAgICAgICAgICAgICAgICAgICAgICAgICAgIC AgICAgICAgICAgICAgICAgICAgICAgICAgICAgICANCiAgICAgICAgICAgICAgICAgICAgICAgICAgIC AgICAgICAgICAgICAgICAgICAgICAgICAgICAgICAg ICAgICAgICAgICAgICAgICAgICAgICAgICAgICAgICAgICAgICAgICANCiAgICAgICAgICAgICAgICAg ICAgICAgICAgICAgICAgICAgICAgICAgICAgICAgICAgICAgICAgICAgICAgICAgICAgICAgICAgICAg ICAgICAgICAgICAgICAgICAgICAgICANCiAgICAgIC AgICAgICAgICAgICAgICAgICAgICAgICAgICAgICAgICAgICAgICAgICAgICAgICAgICAgICAgICAgIC AgICAgICAgICAgICAgICAgICAgICAgICAgICAgICAgICANCiAgICAgICAgICAgICAgICAgICAgICAgIC AgICAgICAgICAgICAgICAgICAgICAgICAgICAgICAg ICAgICAgICAgICAgICAgICAgICAgICAgICAgICAgICAgICAgICAgICAgICANCiAgICAgICAgICAgICAg ICAgICAgICAgICAgICAgICAgICAgICAgICAgICAgICAgICAgICAgICAgICAgICAgICAgICAgICAgICAg ICAgICAgICAgICAgICAgICAgICAgICAgICANCiAgIC AgICAgICAgICAgICAgICAgICAgICAgICAgICAgICAgICAgICAgICAgICAgICAgICAgICAgICAgICAgIC AgICAgICAgICAgICAgICAgICAgICAgICAgICAgICAgICAgICANCiAgICAgICAgICAgICAgICAgICAgIC AgICAgICAgICAgICAgICAgICAgICAgICAgICAgICAg ICAgICAgICAgICAgICAgICAgICAgICAgICAgICAgICAgICAgICAgICAgICAgICANCiAgICAgICAgICAg ICAgICAgICAgICAgICAgICAgICAgICAgICAgICAgICAgICAgICAgICAgICAgICAgICAgICAgICAgICAg ICAgICAgICAgICAgICAgICAgICAgICAgICAgICANCi AgICAgICAgICAgICAgICAgICAgICAgICAgICAgICAgICAgICAgICAgICAgICAgICAgICAgICAgICAgIC AgICAgICAgICAgICAgICAgICAgICAgICAgICAgICAgICAgICAgICANCjw/oJCqI3mylFXoszY1S2zaKt 3TPo0TTP1ma2YaOYFxNXgicxBoCvlBFsChSNMtCqoF Blp1CZtpSL5ZfXHlL2JrN1TpLGkjLI8SGJLdXHDqzMPkBVPyNGNgCzI4NLWeOEulWW7FoMUrQThsFTGo DQOnCfAyOBGxZYYjGEStCTRwRHWPOLEeMXClKwPvZWTlXHNcST6MPTLgX823cdGgPx4HAu6SFjAtGN7h og9BFSMkBTJsWzmLCpu5QEvtEX1ZaDMrbJQ2WQDpTP QQVkTiX3nec6OqMGYbYBWZLYwcNP1Hp7GxhMNxQZa+Lq4WIU9yt7SaREq7PSNnWV6ekg9WEYbOXqZqB3 FabSnkTUGimkP0iIVyXCM2QOLnVWklqhQwjfPGTZKlIYiiqSpoDTNuKHBnHRHnINBkEfPfADJkBFx0IQ ZKQVlFOoJhJ8Orf9RmGgT0UBOmAlHmKKinHXWuLvG3 PF18yQlzCI8MENYbVNXfNQ63NKNfRGClUs1TTn5AWtDgIL3pjr6FPFTuFGTiRvcOXsu9YWjgZO0QfZEl B0DlrZPwa1qPIkStZ1QASXH6PPFiFg2OAOSuMeVcOQIfBCzbTY9xXBOzZPNYlPwzpzE0DE0TKJ7jhfGj VR9NCfVjRd7zDs5BIhOhE1MiW1FvOYSoDQGUENisBP 5KPXonWE4mXL1Nl0MBrVDboI3nsr2CITZrBOBkKhrflw0NJfmaB8M9sWfzTJSmEHElJCFORNblJG9CPQ HpCPF3BNKzXTHfSTIDVtJgG96oEW1EU6Jib31cAbT5IRBhNyKiILraJK24lWcdzxMjrJVcnUqxSW3THf 4+DQplbmRvYmoNCnhyZWYNCjAgNDMNCjAwMDAwMDAw GRAeTcC0YcYoDs7UXOTjZSXlSJMkWiNwDGJdMKFeFZsvMJNsFHH9ILS7YIRrUULsKJ6HYgYrMSBeWBb6 DdCoFVSwHEHmwy6EKSNdXXXrRIO6XnEcETTjRQEmDNamMCVwVREhVBU7OOPnKULwDZ1BTsPsDPJcGMKx GxOhXTMzEMRpoq6XUIGoPOToVpMjMuPzZRGtMDBeAZ gzDIFnPNM6JBDgXAJsROKyHJ7NXjNxLPVaUZq1VQecEENhNCZlav3JYZEvXRVlPIH7VqZjBNShHGQsCY qtNQYyGFWvBNXsPJPyBEVkVT0SYxLyKTWlRVRnFYlpULLtAELxal7VVVUmBBTiEAH6XTTsEHGuSEZkMP snNPUrJYC8Nxj7ZBGkEJZqKW5ZYdPvWMCiZRP9GfAl AIOeVFXrnf8LPMYeMBTdSmJ9WbGlQIUbHMCpZVgrHFFjPSR6RDMnPLBdSEDzVN0GPvYwFILoAUirBEvg PQCpLCVykt0PILVzFAAhOkX3IxFcGGTrXYEkRGlgPDAbLZF7ZXVuSLYkKPSrVJ6NGgSgASWlNLs9DJLh BWGxLNHuni9RBLRuDCGiALjuPDFmGCEpWDUaANpxVA IjNLU0ClbwLYOqBJOwTN4GQkFpJYOaDZn7ZGbnTNUuECBhlm3RHRBwHEZoSDW5ZRIgFGAuGSVmRLaaXE HmGQFaUMq5IYNdUQZlTT4LVcAtTQVtSNV0HsVvOIKmOULqaq5RXJFuLUY0Zmq7MdRqNYRmYFIgRVsuSI FeLBHaJuIqXMSbEBVmSH0VKeTbRTVzYGDbVdexCGIp HHJehi2WKBAnBBA2YKk4XeWtCVVsMBAvLTiuOSHmRMR3SCywRTUvRZArDO7XOmGdKDTaXBBnDZCmIQXo GZVgou6ZZSYzESR3VUKxJMOlEGEwSJMvASwqMTQdWQF7Wqp2WQYwKEVfEB0RBrFbANZiOVW2UXfpDQCa XDGoar8QVAAfIGI2NsxiTrImEYUhSSHqVCaoHEQgSS A7CIb2RRPpMTQhUK3PXxQtWEJeWYs2BqVfKLVcFMGifo7ASRGmINL0XVxzUQSoIXMkAYIkKBquKIPbTH N6BDq4FPClSMEyVD6NOtGsQPUeRUcuBeViUBOfQDZfds0AlXMpyOgccc6EHYfJPj4IgIrsSESfOEhtDw 7dsJJ6FrOqDKSROi3WabNtTANmBLIKOZueDJSeIUrx Y1DcEsY9ZDHjPXHtYJZ9Y4PcRWIcLmh4JLGtEiGsEkK1X7G1TRNmDFFrPCD3URKxNtkbXbUhEWQ7DMZe JPQ6CeT+IF7aZKm+Ud9Ry3SfmzG2nnKnVTj8OQW2NZ6IUZATD3DJWp== ID Date Data Source [id number] 10/18/2020 06:48:25 AM [facility] CT HEAD WITHOUT CONTRAST [id number] RESU LTInterpreted by:Julius Pitt [facility] STR[place]linical Indication: SDH.Technique: Contiguous axial CT images of [...] rce(s) Supporting Document(s) ID Date Data Source [id number] 10/18/2020 05:17:00 AM EST [facility] Name Value Range Interpretation Code Description Data Anabella rce(s) Supporting Document(s) [facility]2 [facility] by [facility] and reported by [facility]. ID Date Data Source [id number] 10/18/2020 06:56:36 AM [facility] Service Cmnt XXX-Imp : NoneRespiratory P CR Panel : PCR ResultsMicroorganism XXX Cult : See Labs Tab for 2019 nCoV RT-PCR resultsHAdV DNA QI ROB+non-probe : Not DetectedHCoV [id number] Nph QI ROB+non-probe : Not DetectedHCoV [id number] Nph QI ROB+non-probe : Not [id number] RNA Nph QI ROB+non-probe : Not [id number] RNA Upper resp QI ROB+probe : Not [...] DNA Nph Q ROB+non-probe : Not DetectedB [id number] DNA Nph ROB+non-probe : Not Detected Name Value Range Interpretation Code Description Data Anabella rce(s) Supporting Document(s) ID Date Data Source [id number] 10/18/2020 06:55:32 AM [facility] Value Range Interpretation Code Description Data Anabella rce(s) Supporting Document(s) Specimen source [Identifier] of Unspecified specimen [facility] SARS-CoV-2 RNA 2019 nCoV Real-Time RT-PCR: NOT DETECTED [facility] Assay Performed [facility] Patients first test for 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 When did you start to experience these symptoms [Date and time] [Phen X] [facility] Patient was hospitalized because of this condition [facility] patient was admitted to ICU for [facility] Patient resides in a congregate care setting [facility] status [facility] ID Date Data Source [id number] 10/18/2020 05:09:42 AM [facility] Name Value Range Interpretation Code Description Data Anabella rce(s) Supporting Document(s) Leukocytes [#/volume] in Blood by Automated count 4.7 10*3/uL 4-10 [facility] Erythrocytes [#/volume] in Blood by Automated count 2.92 10*6/uL 4.1- 5.3 L [facility] Hemoglobin [Mass/volume] in Blood 10.4 g/dL 11.5-15.5 L [facility] Hematocrit [Volume Fraction] of Blood by Automated count 30.0 % 3 6-45 L [facility] Erythrocyte mean corpuscular volume [Entitic volume] b y Automated count 102.7 fL 80-96 H [facility] Erythrocyte mean corpuscular hemoglobin [Entitic mass] by Automated count 35.5 pg 27-33 H [facility] Erythrocyte mean corpuscular hemoglobin concentration [Mass/volume] by Autom[facility] count 34.6 g/dL [facility].0[facility] width [Ratio] by Automated count 16.5 % 11.5-14.5 H [facility] Platelets [#/volume] in Blood by Automated count 163 10*3/uL 150-400 [facility] Differential cell count method - Blood [facility] Neutrophils/100 leukocytes in Blood by Automated count 58 % [facility] Lymphocytes/100 leukocytes in Blood by Automated count 28 % [facility] Monocytes/100 leukocytes in Blood by Automated count 12 % [facility] Eosinophils/100 leukocytes in Blood by Automated count 2 % [facility] Basophils/100 leukocytes in Blood by Automated count 0 % [facility] Neutrophils [#/volume] in Blood by Automated count 2.78 10*3/uL 1.8-7 .0 [facility] Lymphocytes [#/volume] in Blood by Automated count 1.31 10*3/uL 1.2-4 .0 [facility] Monocytes [#/volume] in Blood by Automated count 0.56 10*3/uL 0-0.8 [facility] Eosinophils [#/volume] in Blood by Automated count 0.07 10*3/uL 0-0.5 [facility] Basophils [#/volume] in Blood by Automated count 0.01 10*3/uL 0-0.2 [facility] Nucleated erythrocytes/100 leukocytes [Ratio] in Blood by Automated count 0 /100{WBCs} 0-0 [facility] ID Date Data Source [id number] 10/18/2020 05:46:07 AM [facility] Name Value Range Interpretation Code Description Data Anabella rce(s) Supporting Document(s) Cholesterol [Mass/volume] in Serum or Plasma 124 mg/dL <200 [facility] Triglyceride [Mass/volume] in Serum or Plasma 87 mg/dL <150 [facility] Cholesterol in HDL [Mass/volume] in Serum or Plasma 73 mg/dL >50 [facility] Cholesterol in LDL [Mass/volume] in Serum or Plasma by calcu lation 34 mg/dL <100 [facility] Cholesterol in VLDL [Mass/volume] in Serum or Plasma by calc ulation 17 mg/dl 16-42 [facility] Cholesterol non HDL [Mass/volume] in Serum or Plasma 51 mg/dL <130 [facility] ID Date Data Source [id number] 10/18/2020 05:46:07 AM [facility] Name Value Range Interpretation Code Description Data Anabella rce(s) Supporting Document(s) Thyrotropin [Units/volume] in Serum or Plasma 0.532 u[IU]/mL 0.270-4. 200 [facility] ID Date Data Source [id number] 10/18/2020 05:46:07 AM [facility] Name Value Range Interpretation Code Description Data Anabella rce(s) Supporting Document(s) Albumin [Mass/volume] in Serum or Plasma by Bromocresol green (BCG) dye binding method 4.0 g/dL 3.5[facility]5.2 [facility] Bilirubin.total [Mass/volume] in Serum or Plasma 1.0 mg/dL <1.2 [facility] Calcium [Mass/volume] in Serum or Plasma 8.8 mg/dL 8.8-10.2 [facility] Chloride [Moles/volume] in Serum or Plasma 97 mmol/L 98-107 L [facility] Creatinine [Mass/volume] in Serum or Plasma 6.68 mg/dL 0.50-0.90 H [facility] Glucose [Mass/volume] in Serum or Plasma 87 mg/dL 70-140 [facility] Alkaline phosphatase [Enzymatic activity/volume] in Serum or Plasma 48 U/L 35-104 [facility] Potassium [Moles/volume] in Serum or Plasma 4.8 mmol/L 3.4-5.1 [facility] Hemolyzed Protein [Mass/volume] in Serum or Plasma 5.8 g/dL 6.4-8.3 L [facility] Sodium [Moles/volume] in Serum or Plasma 136 mmol/L 136-145 [facility] Aspartate aminotransferase [Enzymatic activity/volume] in Serum or Plasma 26 U/L <32 [facility] Hemolyzed Urea nitrogen [Mass/volume] in Serum or Plasma 36 mg/dL 8-23 H [facility] Osmolality of Serum or Plasma by calculation 290 mosm/kg 275-300 [facility] Creatinine/Urea nitrogen [Mass Ratio] in Serum or Plasma 5 [facility] Bicarbonate [Moles/volume] in Serum 25 mmol/L 22-29 [facility] Alanine aminotransferase [Enzymatic activity/volume] in Seru m or Plasma 15 U/L <33 [facility] Hemolyzed Anion gap 3 in Serum or Plasma 14 mmol/L 8-15 [facility] Glomerular filtration rate/1.73 sq M pre dicted among non-blacks [Volume Rate/Area] in Serum or Plasma by Creatinine-based formula (MDRD) 6 mL/min/1.73m2 >60 L [facility] Glomerular filtration rate/1.73 sq M pre dicted among blacks [Volume Rate/Area] in Serum or Plasma by Creatinine-based formula (MDRD) 6 mL/min/1.73m2 >60 L [facility] ID Date Data Source [id number] 10/18/2020 06:19:56 AM [facility] Name Value Range Interpretation Code Description Data Anabella rce(s) Supporting Document(s) Prothrombin time (PT) 15.7 s 12.5-14.9 H [facility] INR in Platelet poor plasma by Coagulation assay 1.23 [facility] Routine intensity oral anticoagulation I NR is typically 2.0-3.0. Target INR must be clinically individualized. ID Date Data Source [id number] 10/18/2020 04:51:22 PM [facility] Value Range Interpretation Code Description Data Anabella rce(s) Supporting Document(s) Phosphate [Mass/volume] in Serum or Plasma 5.9 mg/dL 2.5-4.5 H [facility] ID Date Data Source [id number] 10/18/2020 05:44:46 AM [facility] Value Range Interpretation Code Description Data Anabella rce(s) Supporting Document(s) Hemoglobin A1c/Hemoglobin.total in Blood by HPLC 4.7 % 4.0-6.0 [facility] (NOTE)<5.7% Average risk of diabetes (ADA)5.7-6.4% Increased risk of diabetes(ADA)>/= 6.5% Diagnostic for diabetes(ADA) Glucose mean value [Mass/volume] in Blood Estimated fr om glycated hemoglobin 88 mg/dL <126 [facility] ID Date Data Source [id number] 10/16/2020 11:26:00 AM EST [facility] Name Value Range Interpretation Code Description Data Anabella rce(s) Supporting Document(s) SARS coronavirus 2 RNA [Presence] in Res piratory specimen by ROB with probe detection [facility] This lab was ordered by [facility] a nd reported by [facility]. ID Date Data Source [id number] 04/04/2020 01:50:00 PM EDT [facility] ([facility], ) Name Value Range Interpretation Code Description Data Anabella rce(s) Supporting Document(s) Inr 2.22 Normal (applies to non-numeric resul ts) [facility] ([facility], ) THERAPUTIC HUMAN INR VALUES INDICATIONS NORMAL RANGES PROPHYLAXIS/TREATMENT OF: VENOUS THROMBOSIS 2.0-3.0 PULMONARY EMBOLISM 2.0-3.0 PREVENTION OF SYSTEMIC EMBOLISM FROM: TISSUE HEART VALVES 2.0-3.0 ACUTE MYOCARDIAL INFARCTION 2.0-3.0 VALVULAR HEART DISEASE 2.0-3.0 ATRIAL FIBRILLATION 2.0-3.0 MECHANICAL VALVES(HIGH RISK) 2.5-3.5 RECURRENT MYOCARDIAL INFARCTION 2.5-3.5 Prothrombin Time 24.4 s 11.8-14.0 Above high normal M [facility] ([facility], ) ID Date Data Source [id number] 03/26/2020 02:33:40 PM EDT [facility] Name Value Range Interpretation Code Description Data Anabella rce(s) Supporting Document(s) Progress Note [facility] KBBVOm1pLhYPKfQs03/HJDxvOESgz1WhZTfyJWp1WUmjQFNmA2CmQPF1bU1vANQ6STgCBkCtGkJcWTT4 lbm [file] AgICAgICAgICAgICAgICAgICAgICAgICAgICAgICAgICAgICAgICAgICAgICAgICAgICAgICAgICAgIC AgICAgICAgICAgICAgICAgICAgICAgICAgICAgICAgICAgDQogICAgICAgICAgICAgICAgICAgICAgIC AgICAgICAgICAgICAgICAgICAgICAgICAgICAgICAg ICAgICAgICAgICAgICAgICAgICAgICAgICAgICAgICAgICAgICAgICAgICAgDQogICAgICAgICAgICAg ICAgICAgICAgICAgICAgICAgICAgICAgICAgICAgICAgICAgICAgICAgICAgICAgICAgICAgICAgICAg ICAgICAgICAgICAgICAgICAgICAgICAgICAgDQogIC AgICAgICAgICAgICAgICAgICAgICAgICAgICAgICAgICAgICAgICAgICAgICAgICAgICAgICAgICAgIC AgICAgICAgICAgICAgICAgICAgICAgICAgICAgICAgICAgICAgDQogICAgICAgICAgICAgICAgICAgIC AgICAgICAgICAgICAgICAgICAgICAgICAgICAgICAg ICAgICAgICAgICAgICAgICAgICAgICAgICAgICAgICAgICAgICAgICAgICAgICAgDQogICAgICAgICAg ICAgICAgICAgICAgICAgICAgICAgICAgICAgICAgICAgICAgICAgICAgICAgICAgICAgICAgICAgICAg ICAgICAgICAgICAgICAgICAgICAgICAgICAgICAgDQ ogICAgICAgICAgICAgICAgICAgICAgICAgICAgICAgICAgICAgICAgICAgICAgICAgICAgICAgICAgIC AgICAgICAgICAgICAgICAgICAgICAgICAgICAgICAgICAgICAgICAgDQogICAgICAgICAgICAgICAgIC AgICAgICAgICAgICAgICAgICAgICAgICAgICAgICAg ICAgICAgICAgICAgICAgICAgICAgICAgICAgICAgICAgICAgICAgICAgICAgICAgICAgDQogICAgICAg ICAgICAgICAgICAgICAgICAgICAgICAgICAgICAgICAgICAgICAgICAgICAgICAgICAgICAgICAgICAg ICAgICAgICAgICAgICAgICAgICAgICAgICAgICAgIC AgDQogICAgICAgICAgICAgICAgICAgICAgICAgICAgICAgICAgICAgICAgICAgICAgICAgICAgICAgIC AaQQJaSWOpCCNrRBIpSODbGUPfGISqMXLkEJJfDZUgGGYoDXLhZLBsBGYbPOy9L7crDYJdLBDrJL6kGQ d3Jz8+ELtDBvRbBIG9hiXxbV7TUN2ql1KoYMmvNPXd w4PmESf9XN1EGHWbJAsyEL7SELoxbl7OGOMeWKOfiLZNv1llSlRhYCW0DYFoUskpZC7ERWVdU2rhhtRi IYYoKVYXLYyjBSCQGUmeMPVMAAFfOSGwElEiWAzcPZ4Sa4MlxZM0DUo+Ii1TWA1uv6AiLFyqKGRpID1u kc2WZGmCJwHqQ3KqxiO8ZUD9CIKhFz0HENBbDZRepP WrYQClKJGDTlHpY9MohA47MZZLAp2+TQfzmoSkBxxVQxY9QKKag0ScQMk7VT5BPVXdKZr6mUBwREVlV1 Tmn8BlEn33YOWkAsxyJnImaCNQnlYddsleMCAqFASdPV1dGp0mBAP4QOY1ZuUxTAZTFW1LLWExEUTwdJ IjAJWwYQPRCE4IPLmhJZP9PFVazxKtnTXlNWouXS9V YXJlbnQgMjggMCBSDQo+My6JQF1yg3DmRNslJNSaOA6nuh1LAQaIUeIjE3J3eXBjN5T3KVllVy8BEOUm SBVpLgTyJVDSGHqiYD4FRM9ngzJ5DD6TkWUaSYWnKPSzeUHdOZo8L38yqVHnCRvfCS3TBYH+Karina+Pg0K JWLmPHKvOYPgRvQkTCYRGzByX8YgN1GHf7CqQ0BoAM 25bNdupnWpVHjwSX0HYJ1sGJUwWNQFWV9IkVVqgU2igoNeRXUmDYTMVqIsG97zvHJzFCLuNMH9PDHfAy 8XKZTyL7WotvNcmLllsdXlJRSdZMEYLW1IEAhlcuChpIDxiJzhPJ78zDgdYF3TLc2HBwZeDV1win3LzR LwMy2ZBKShYZ2HDGFnAVBnVGGvWKS5HUXeBxOrDJml MXNxAOSiIWN7BLQqUKZbII4ZEbEvRBUzLiz7GzSqLMYfYRGfsh2GXGLcYFDpNTG0KqYxTLCyJECnEOve OZGkLIIlMJE6LXIcEJEdAL8VSaYsHZHgDVZ4RyzfETIjJWQhjj4PTCCfIBMwAeM2TsJlJAZiKRGaXKki HNLmDXJ1KrErKHKiTMMuYS2ZMpNjAVVmFCE6LHObGB QfNONdtc6XOVDxOJTqNZS5VmQxELDlSXKxOIekROSjTAH9CKc4KLVuOVZhGR6JMeHfJTHfYMU9FbBbKN ZfOHFzlz1VQHNtSMNkCcW4ORBhCZAuZGUiRVvdFKYyKMYfPJUiFFCyRCIkSK4FJfHiCFNdLSWuBdhmYY NcRPJqkd1TCLXhJSDtWiHlALPiNYSoCLPgKRapVOVe GBK3EOm2KPYuZMJcAE1ZVjNbYRMsBPE6XBPsSOUpMPXimy0XDYMrEABbPKq2PAKiBLHiRCGxKGhwUROc PTW8Wft5CWIdDFYjOR0WXwUwGXRfRjQ7OjOkCHVeSMTbyk8NKBScVZKmZbglCxRaWWUhLMKqWCljCDZr RBI1RCqtTUSeBJGnPN2LYmSbSEKtXjvpYlkgMNNoKS Crrk1DEXLzIQWyCEV3HkIiFSBhJONnGRhbZRBuVHC2SvQvYLGuAIOvRG8SCrQhJGMxTlr1SdrlELQrIB Dziu9UHIFvIHXsUZi2EwChEWXmUAQkSBwaKOHbFVLvLKZrNPFvVQAlPM5UFvHsXHDwZrA0IPRiSAUfQK Egis7RADZgMEIeQRFnYOIfAIAjTRYvBHd1cxDkhSXi HUj0GC3VZ5QnyxCiXsLQXv2Tt107OOKfGSCgKq4VC8vsLq5cVDIaXAALVf8SJDo7BTamM8I2ZVBdTiMw OABvPMY9TWAnJwFnTLQ1RVAoAzr+KQa5CMJ9Qxj8ZjWlIBZnZIIvNvCzPBX4EpRmJZr0JjQdLH2yQNJR Cj4+PLjxhMRmlAgaPFWRScCbKUurTNbeWRTTJw9Q ID Date Data Source [id number] 02/07/2020 07:41:00 AM EDT [facility] ([facility], ) Name Value Range Interpretation Code Description Data Anabella rce(s) Supporting Document(s) Potassium [Moles/volume] in Serum or Plasma 4.6 meq/L 3.5- 5.1 Normal (applies to non-numeric results) [facility] ([facility] ) <content>By: LAMINE</content>
<conten t>Time: 719</content>
<content>note:<nlbl:[email or web address]></content>
<sabine LAMINE Time: 719</content>
<content></content> ID Date Data Source [id number] 02/07/2020 07:41:00 AM EDT [facility] ([facility]) Name Value Range Interpretation Code Description Data Anabella rce(s) Supporting Document(s) Inr 0.92 Normal (applies to non-numeric resul ts) [facility] ([facility]) THERAPUTIC HUMAN INR VALUES INDICATIONS NORMAL RANGES PROPHYLAXIS/TREATMENT OF: VENOUS THROMBOSIS 2.0-3.0 PULMONARY EMBOLISM 2.0-3.0 PREVENTION OF SYSTEMIC EMBOLISM FROM: TISSUE HEART VALVES 2.0-3.0 ACUTE MYOCARDIAL INFARCTION 2.0-3.0 VALVULAR HEART DISEASE 2.0-3.0 ATRIAL FIBRILLATION 2.0-3.0 MECHANICAL VALVES(HIGH RISK) 2.5-3.5 RECURRENT MYOCARDIAL INFARCTION 2.5-3.5 Prothrombin Time 12.1 s 11.8-14.0 Normal (applies to non-numeric results) [facility] ([facility]) Procedure Social History Code Duration Value Status Description Data Source(s ) Alcohol intake 11/08/2020 12:00:00 AM EST Current non-d ramy of alcohol (finding) completed Current non-drinker of alcohol (finding) [facility] Tobacco use and exposure 11/08/2020 12:00:00 AM EST Never used co mpleted Never used [facility] Cigarette pack-years 11/08/2020 12:00:00 AM EST UNK completed [facility] Cigarettes smoked current (pack per day) - Reported 11/08/19 21 12:00:00 AM EST UNK completed [facility] Smoking 11/08/2020 12:00:00 AM EST Former smoker completed Former smoker [facility] Vital Signs ID Date Data Source UNK Name Value Range Interpretation Code Description Data Source(s) Body weight 51.370 kg 51.370 kg [facility] ([facility]) [place] body weight 120 [lb_av] 120 [lb_av] [facility] ([facility]) Body mass index (BMI) [Ratio] 19.4 kg/m2 19.4 k g/m2 [facility] ([facility]) Body weight 113.25 [lb_av] 113.25 [lb_av] [facility] ([facility]) Body height 64 [in_i] 64 [in_i] [facility] 5'4" Heart rate 78 /min 78 /min [facility] ([facility]) Diastolic blood pressure 91 mm[Hg] 91 mm[Hg] [facility] ([facility]) Done On Left Thigh Systolic blood pressure 167 mm[Hg] 167 mm[Hg] M [facility] ([facility]) Done On Left Thigh Body surface area Derived from formula 1.54 m2 1.54 m2 [facility] ([facility]) Body surface area Derived from formula 1.53 m2 1.53 m2 [facility] ([facility]) Body weight 50.803 kg 50.803 kg [facility] ([facility]) [place] body weight 120 [lb_av] 120 [lb_av] [facility] ([facility]) Body mass index (BMI) [Ratio] 19.2 kg/m2 19.2 k g/m2 [facility] ([facility]) Body weight 112.00 [lb_av] 112.00 [lb_av] [facility] ([facility]) Body height 64 [in_i] 64 [in_i] [facility] ([facility]) 5'4" Diastolic blood pressure 68 mm[Hg] 68 mm[Hg] [facility] ([facility]) Systolic blood pressure 105 mm[Hg] 105 mm[Hg] [facility] Body weight 52.731 kg 52.731 kg [facility] ([facility]) [place] body weight 120 [lb_av] 120 [lb_av] [facility] ([facility]) Body mass index (BMI) [Ratio] 20.0 kg/m2 20.0 k g/m2 [facility] ([facility]) Body weight 116.25 [lb_av] 116.25 [lb_av] [facility] ([facility]) Body height 64 [in_i] 64 [in_i] [facility] ([facility]) 5'4" Diastolic blood pressure 74 mm[Hg] 74 mm[Hg] [facility] ([facility]) Systolic blood pressure 132 mm[Hg] 132 mm[Hg] [facility] Body weight 53.525 kg 53.525 kg [facility] ([facility]) Body mass index (BMI) [Ratio] 20.3 kg/m2 20.3 k g/m2 [facility] ([facility]) Body weight 118.00 [lb_av] 118.00 [lb_av] [facility] ([facility]) Body height 64 [in_i] 64 [in_i] [facility] 5'4" Diastolic blood pressure 70 mm[Hg] 70 mm[Hg] [facility] ([facility]) Systolic blood pressure 108 mm[Hg] 108 mm[Hg] [facility] ([facility]) Body weight 54.432 kg 54.432 kg [facility] ([facility]) Body mass index (BMI) [Ratio] 20.6 kg/m2 20.6 k g/m2 [facility] ([facility]) Body weight 120.00 [lb_av] 120.00 [lb_av] [facility] ([facility]) Body height 64 [in_i] 64 [in_i] [facility] ([facility]) 5'4" Diastolic blood pressure 60 mm[Hg] 60 mm[Hg] [facility] ([facility]) Systolic blood pressure 110 mm[Hg] 110 mm[Hg] [facility] ([facility]) Body weight 51.937 kg 51.937 kg [facility] ([facility]) Body mass index (BMI) [Ratio] 19.7 kg/m2 19.7 k g/m2 [facility] ([facility]) Body weight 114.50 [lb_av] 114.50 [lb_av] [facility] ([facility]) Body height 64 [in_i] 64 [in_i] [facility] ([facility]) 5'4" Diastolic blood pressure 62 mm[Hg] 62 mm[Hg] [facility] ([facility]) Systolic blood pressure 100 mm[Hg] 100 mm[Hg] [facility] ([facility]) Body weight 52.618 kg 52.618 kg [facility] ([facility] Body mass index (BMI) [Ratio] 19.9 kg/m2 19.9 k g/m2 [facility] ([facility]) Heart rate 50 /min 50 /min [facility] ([facility]) Diastolic blood pressure 63 mm[Hg] 63 mm[Hg] [facility] ([facility]) Systolic blood pressure 100 mm[Hg] 100 mm[Hg] [facility]) Body weight 116.00 [lb_av] 116.00 [lb_av] [facility] ([facility]) Body height 64 [in_i] 64 [in_i] [facility] 5'4Temp 97.5 Body weight 52.391 kg 52.391 kg [facility] ([facility]) Body mass index (BMI) [Ratio] 19.8 kg/m2 19.8 k g/m2 [facility] ([facility]) Body weight 115.50 [lb_av] 115.50 [lb_av] [facility] ([facility]) Body height 64 [in_i] 64 [in_i] [facility] ([facility]) 5'4" Diastolic blood pressure 84 mm[Hg] 84 mm[Hg] [facility] ([facility]) Systolic blood pressure 130 mm[Hg] 130 mm[Hg] [facility] ([facility]) Body temperature 97.7 [degF] 97.7 [degF] [facility] ([facility]) Diastolic blood pressure 60 mm[Hg] 60 mm[Hg] [facility] ([facility]) Systolic blood pressure 110 mm[Hg] 110 mm[Hg] [facility] ([facility]) Body weight 53.128 kg 53.128 kg [facility] ([facility]) Body mass index (BMI) [Ratio] 20.1 kg/m2 20.1 k g/m2 [facility] ([facility]) Body weight 117.12 [lb_av] 117.12 [lb_av] [facility] ([facility]) Body height 64 [in_i] 64 [in_i] [facility] ([facility]) 5'4" Body weight 50.576 kg 50.576 kg [facility] ([facility]) Body mass index (BMI) [Ratio] 19.1 kg/m2 19.1 k g/m2 [facility] ([facility]) Body weight 111.50 [lb_av] 111.50 [lb_av] [facility] ([facility]) Body height 64 [in_i] 64 [in_i] [facility] ([facility]) 5'4" Body temperature 96.0 [degF] 96.0 [degF] [facility] ([facility]) Diastolic blood pressure 57 mm[Hg] 57 mm[Hg] [facility] ([facility]) Systolic blood pressure 94 mm[Hg] 94 mm[Hg] [facility] Systolic blood pressure 110 mm[Hg] 110 mm[Hg] [facility] ([facility]) Diastolic blood pressure 60 mm[Hg] 60 mm[Hg] [facility] ([facility]) Oxygen saturation in Arterial blood by Pulse oximetry 94 % 94 % [facility] ([facility]) Body temperature 95.9 [degF] 95.9 [degF] [facility] ([facility]) Body height 64 [in_i] 64 [in_i] [facility] ([facility]) 5'4" Body weight 113.25 [lb_av] 113.25 [lb_av] [facility] ([facility]) Body mass index (BMI) [Ratio] 19.4 kg/m2 19.4 k g/m2 [facility] ([facility]) Body weight 51.370 kg 51.370 kg [facility] ([facility]) Systolic blood pressure 94 mm[Hg] 94 mm[Hg] [facility] Diastolic blood pressure 60 mm[Hg] 60 mm[Hg] [facility] ([facility]) Body height 64 [in_i] 64 [in_i] [facility] ([facility]) 5'4" Body weight 107.25 [lb_av] 107.25 [lb_av] [facility] ([facility]) Body mass index (BMI) [Ratio] 18.4 kg/m2 18.4 k g/m2 [facility] ([facility]) Body weight 48.649 kg 48.649 kg [facility] ([facility]) ID Date Data Source [id number] 10/19/2020 04:08:37 PM [facility] Name Value Range Interpretation Code Description Data Source(s) WEIGHT RECORDED 115.74 lb 115.74 lb [facility] WEIGHT RECORDED 121.69 lb 121.69 lb [facility] WEIGHT RECORDED 119.27 lb 119.27 lb [facility] WEIGHT RECORDED 112.66 lb 112.66 lb [facility] Body height Measured 65.35 in 65.35 in [facility] TRANSFER FROM [facility] ID Date Data Source [id number] 10/19/2020 08:57:12 AM [facility] Name Value Range Interpretation Code Description Data Source(s) TRANSFER FROM [facility] ID Date Data Source [id number] 10/19/2020 08:57:12 AM [facility] Name Value Range Interpretation Code Description Data Source(s) TRANSFER FROM [facility] ID Date Data Source [id number] 03/26/2020 02:33:40 PM EDT [facility] Name Value Range Interpretation Code Description Data Source(s) WEIGHT RECORDED 104 lb 104 lb [facility] Body height Measured 64 in 64 in [facility] ID Date Data Source [id number] 10/18/2020 03:26:53 AM [facility] Name Value Range Interpretation Code Description Data Source(s) WEIGHT RECORDED 105.16 lb 105.16 lb [facility] Body height Measured 64 in 64 in [facility] WEIGHT RECORDED 105.16 lb 105.16 lb [facility] Body height Measured 64 in 64 in [facility] Patient Treatment Plan of Care Planned Activity Planned Date Details Description Data Source (s) Amylases 418314 UNT / Endopeptidases 114 000 UNT / Lipase 68133 UNT Delayed Release Oral Capsule 10/19/2020 06:00:00 PM [facility] lidocaine (LIDODERM) 5 % patch 1 patch 10/19/2020 09:00:00 AM [facility] Amylases 647258 UNT / Endopeptidases 114 000 UNT / Lipase 09038 UNT Delayed Release Oral Capsule 10/18/2020 04:39:41 PM [facility] Amylases 559660 UNT / Endopeptidases 114 000 UNT / Lipase 50077 UNT Delayed Release Oral Capsule [Creon] 06/16/2019 12:00:00 AM [facility] Ranitidine 150 MG Oral Tablet 06/14/2019 12:00:00 AM [facility] Warfarin Sodium 5 MG Oral Tablet 02/08/2019 12:00:00 AM [facility] Dexamethasone 4 MG Oral Tablet 12/06/2018 12:00:00 AM [facility] Acetaminophen 500 MG / Diphenhydramine H ydrochloride 25 MG Oral Tablet [Tylenol PM] [facility] Acetaminophen 325 MG / Oxycodone Hydrochloride 5 MG Oral Tablet [facility] Acetaminophen 500 MG Oral Tablet [facility] Diphenhydramine Hydrochloride 25 MG Oral Capsule [facility] ixazomib (NINLARO) capsule U [facility] Cholecalciferol 1000 UNT Oral Capsule [facility]
[2020-12-23 20:27] LABS: CALCIUM LEVEL 8.4 MG/DL (8.8-10.2); CREATININE FOR GFR 6.39 MG/DL (0.55-1.30); GLOMERULAR FILTRATION RATE 6.8 (>39); POTASSIUM SERUM 3.7 MEQ/L (3.5-5.1)
[2020-12-23 22:01] VITALS: BP 101/55
--- NOTE | 2020-12-25 08:29 | ED PDOC ---
Post-Departure Follow-Up dr connors faxed formal report of ct c spine for fu Candelaria Calderon MD Dec 25, 2020 08:29
== END 2020-12-23 22:02 | disposition home or self-care (01) ==
LOC: M ED 18:42 → EDBD 18:42 → M ED 22:02
DX: S01.01XA Laceration without foreign body of scalp, initial encounter (principal); W01.198A Fall on same level from slipping, tripping and stumbling with subsequent striking against other object, initial encounter; Y92.009 Unspecified place in unspecified non-institutional (private) residence as the place of occurrence of the external cause; Y93.9 Activity, unspecified; Y99.9 Unspecified external cause status; Z79.01 Long term (current) use of anticoagulants; Z79.899 Other long term (current) drug therapy; Z88.1 Allergy status to other antibiotic agents

== ENCOUNTER 2021-03-02 08:44 | Emergency (ER) | payer MEDICARE, OTHER ==
[~2021-03-02] VITALS: Ht 162.6 cm; Wt 47.0 kg
--- NOTE | 2021-03-02 09:37 | REP ---
INDICATION: CVA - Nursing interventions must not delay CT. COMPARISON: 12/23/2020. TECHNIQUE: CT brain performed in the axial plane. Coronal reconstruction images are performed. FINDINGS: The ventricles are normal in size and position.. There is no midline shift or mass effect. Ugalde-white differentiation is well maintained. There is no acute intracranial hemorrhage or extra-axial fluid collection. There are mild bilateral basal ganglia calcifications. Bone window examination is unremarkable. The visualized mastoid air cells and paranasal sinuses are clear. IMPRESSION: No CT evidence of acute intracranial pathology. <Electronically signed by Justin Ugalde > 03/02/21 0933
--- NOTE | 2021-03-02 09:38 | REP ---
INDICATION: CVA. COMPARISON: 10/16/2020. TECHNIQUE: Single portable AP view of the chest was performed. FINDINGS: There is no acute infiltrate or pulmonary edema. Lungs are clear. The heart is not significantly enlarged. The mediastinal silhouette is unremarkable. The visualized osseous structures are intact.A right central venous catheter is again noted. Metallic clips are seen in the chest wall bilaterally. A stent again projects in the left axillary region. IMPRESSION: No acute pulmonary disease. <Electronically signed by Justin Ugalde > 03/02/21 0934
[2021-03-02 09:46] LABS: BASO % 0.2 % (0.0-1.0); EOS # 0.1 10^3/uL (0.0-0.5); EOS % 0.8 % (0.0-3.0); HEMATOCRIT 33.5 % (36.0-47.0); HEMOGLOBIN 10.8 g/dl (12.0-15.5); LYMPH # 1.5 10^3/uL (1.5-5.0); LYMPH % 24.3 % (24.0-44.0); MEAN CORPUSCULAR HEMOGLOBIN 33.3 pg (27.0-33.0); MEAN CORPUSCULAR HGB CONC 32.2 g/dl (32.0-36.5); MEAN CORPUSCULAR VOLUME 103.4 fl (80.0-96.0); MONO # 0.4 10^3/uL (0.0-0.8); MONO % 6.6 % (2.0-8.0); NEUTROPHILS # 4.1 10^3/uL (1.5-8.5); NEUTROPHILS % 67.8 % (36.0-66.0); PLATELET COUNT, AUTOMATED 173 10^3/uL (150-450); RED BLOOD COUNT 3.24 10^6/uL (4.00-5.40); WHITE BLOOD COUNT 6.1 10^3/uL (4.0-10.0)
[2021-03-02 09:56] LABS: INR 1.28; PROTHROMBIN TIME 16.3 SECONDS (12.5-14.3)
[2021-03-02 09:57] LABS: PARTIAL THROMBOPLASTIN TIME 23.3 SECONDS (24.2-38.5)
--- NOTE | 2021-03-02 09:58 | ECGEPIP ---
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
[2021-03-02 10:20] LABS: BLOOD UREA NITROGEN 11 MG/DL (7-18); CALCIUM LEVEL 10.2 MG/DL (8.8-10.2); CARBON DIOXIDE LEVEL 32 MEQ/L (21-32); CHLORIDE LEVEL 100 MEQ/L (98-107); CK-MB VALUE MASS < 1.0 NG/ML (<3.6); CPK CREATINE PHOSPHOKINASE 46 U/L (26-192); GLOMERULAR FILTRATION RATE 16.9 (>39); GLUCOSE, FASTING 89 MG/DL (70-100); MB/CK RELATIVE INDEX 2.17 (< OR =4); POTASSIUM SERUM 3.8 MEQ/L (3.5-5.1); SODIUM LEVEL 139 MEQ/L (136-145); TROPONIN I < 0.02 NG/ML (< 0.10)
[2021-03-02] MEDS ORDERED: ONDANSETRON 4MG/2ML VIAL IV ONE (10:25)
[2021-03-02] MEDS ORDERED: MORPHINE 2 MG/ML 1ML VIAL (J2270) IV ONE (10:25)
[2021-03-02] MEDS ORDERED: ACETAMINOPHEN TAB 650MG DOSE (2X325MG) PO ONE (12:05)
[2021-03-02] MEDS ORDERED: diphenhydrAMINE 50MG/ML VIAL (J1200) IV ONE (13:15)
[2021-03-02] MEDS ORDERED: METOCLOPRAMIDE INJ 10MG/2ML VIAL (J2765 PER 1) IV ONE (13:15)
[2021-03-02] MEDS ORDERED: dexameTHASONE 4 MG/ML 1ML VIAL (J1100 PER 1MG) IV ONE (13:15)
[2021-03-02 14:45] VITALS: BP 120/67
== END 2021-03-02 14:55 | disposition home or self-care (01) ==
LOC: M ED 08:44 → EDBD 08:44 → M ED 14:55
DX: R51.9 Headache, unspecified (principal); T50.3X5A Adverse effect of electrolytic, caloric and water-balance agents, initial encounter; N18.6 End stage renal disease; Z86.73 Personal history of transient ischemic attack (TIA), and cerebral infarction without residual deficits; Z79.01 Long term (current) use of anticoagulants; Z79.899 Other long term (current) drug therapy; Z88.0 Allergy status to penicillin
CPT/HCPCS: 70450; 71045; 80048; 82550; 82553; 84484; 85025; 85610; 85730; 93005; 93041; 94760; 96374; 96375; 99285; J1100; J1200; J2270; J2405; J2765

== ENCOUNTER → 2021-04-12 | Outpatient (CLI) | payer MEDICARE, OTHER ==
[~2021-04-12] MED LIST changes: +ACET-910 PO; +COVI100V IM; +SUCR1TA PO
--- NOTE | 2021-04-12 14:01 | PFTRPT ---
Site: [facility], [address] [place] [address], [address] ID: [id number] Name: AD JOHNSTON Visit Date: 04/12/2021 Second ID: [id number] Referring Doctor: SHAI Bo Marcus, M Reviewing Doctor: Zhao Obregon MD Emergency Medical Service Coordinator: Fidel KAUR, MAURI Age: 75 : 1945 Sex: Female Race: Height: 64.00 Inches Weight: 103.00 Lbs BSA: 1.48 Order IDs: [id number] Requested Test(s): <RESP-PFT.PFT B/A> Diagnosis: R06.00 puffs of albuterol for post bronchodilator. The patient was unable to maintain a pant frequency of 60 to 90 breaths per minute during the airway resistance measurement. Review Status: Not Reviewed Pre-Bronch Post-Bronch Pred Actual %Pred Actual %Chng SPIROMETRY FVC (L) 2.86 2.09 72 2.31 10 FEV1 (L) 2.15 1.54 71 1.71 11 FEV1/FVC (%) 75 74 98 74 FEF 25% (L/sec) 4.65 2.38 51 2.64 10 FEF 50% (L/sec) 3.23 1.93 59 1.91 -1 FEF 75% (L/sec) 0.89 0.40 45 1.03 153 FEF 25-75% (L/sec) 1.72 1.20 69 1.71 42 FEF Max (L/sec) 5.35 2.81 52 2.77 -1 FIVC (L) 1.61 1.99 23 FIF 50% (L/sec) 2.89 3.02 104 2.35 -22 FIF Max (L/sec) 3.10 2.39 -23 MVV (L/min) 84 41 48 Expiratory Time (sec) 6.25 6.35 1 Back Extrap Vol (L) 0.06 0.05 -17 Time To FEFmax (sec) 0.136 0.109 -19 LUNG VOLUMES SVC (L) 2.79 2.14 76 IC (L) 2.15 1.26 58 ERV (L) 0.64 0.88 137 TGV (L) 2.90 3.31 114 RV (Pleth) (L) 2.26 2.43 107 TLC (Pleth) (L) 5.05 4.57 90 RV/TLC (Pleth) (%) 45 53 118 DIFFUSION DLCOunc (ml/min/mmHg) 20.10 13.04 64 DLCOcor (ml/min/mmHg) 20.10 14.04 69 DL/VA (ml/min/mmHg/L) 3.98 3.24 81 VA (L) 5.05 4.33 85 BHT (sec) 9.98 IVC (L) 1.94 TLC (SB) (L) 4.48 AIRWAYS RESISTANCE Raw (cmH2O/L/s) 1.86 0.87 47 Gaw (L/s/cmH2O) 1.03 1.14 111 sRaw (cmH2O*s) 4.76 3.18 66 sGaw (1/cmH2O*s) 0.20 0.31 157 BLOOD GASES Hgb (gm/dL) 11.3
--- NOTE | 2021-04-12 14:47 | REP ---
INDICATION: ABNORMAL FINDING OF LUNG FIELD / CARPUL 1ST COMPARISON: Multiple the latest 02/11/2020 a contrast-enhanced exam. TECHNIQUE: Limited noncontrast enhanced standard helical technique FINDINGS: Allowing for the differences in the technical factors between the examinations the mediastinum and pulmonary jennifer appear stable. The anterior mediastinal nodular density is stable. There are no pleural or pericardial effusions. There is no evidence of significant change in appearance of the imaged upper abdomen. There are bilateral renal cysts poorly imaged. Bone window technique throughout the examination shows no significant changes from the prior exam. There are diffuse skeletal changes consistent with the patient's known multiple myeloma. Evaluation of the lung george shows no new abnormal nodules, masses, or opacities. Lung george are stable. IMPRESSION: Stable CT findings as described above. <Electronically signed by Carmine Vaughn > 04/12/21 1139
== END ==
LOC: M RAD 13:31
PROVIDERS: ATTEND Physician Assistant
DX: R06.09 Other forms of dyspnea (principal)

== ENCOUNTER 2021-04-13 09:00 | Emergency (ER) | payer MEDICARE, OTHER ==
[~2021-04-13 09:00] MED LIST changes: -ACET-910 PO; -SUCR1TA PO
[2021-04-13] MEDS ORDERED: GI COCKTAIL 50ML BTL(HYOSCYAMINE/MAALOX/LIDOCAINE VISCOUS)(1:3:1) PO ONE (09:20)
[2021-04-13] MEDS ORDERED: ACET-910 PO (10:13)
[2021-04-13] MEDS ORDERED: RENV2TAB PO (10:13)
[2021-04-13 10:15] LABS: BASO % 0.1 % (0.0-1.0); EOS # 0.1 10^3/uL (0.0-0.5); EOS % 0.9 % (0.0-3.0); HEMATOCRIT 30.8 % (36.0-47.0); HEMOGLOBIN 9.9 g/dl (12.0-15.5); LYMPH % 13.8 % (24.0-44.0); MEAN CORPUSCULAR HEMOGLOBIN 33.1 pg (27.0-33.0); MEAN CORPUSCULAR HGB CONC 32.1 g/dl (32.0-36.5); MONO # 0.5 10^3/uL (0.0-0.8); NEUTROPHILS # 5.4 10^3/uL (1.5-8.5); NEUTROPHILS % 77.6 % (36.0-66.0); PLATELET COUNT, AUTOMATED 163 10^3/uL (150-450); RED BLOOD COUNT 2.99 10^6/uL (4.00-5.40)
--- NOTE | 2021-04-13 10:53 | REP ---
INDICATION: abdominal pain. COMPARISON: 03/02/2021. TECHNIQUE: Single portable AP view of the chest was performed. FINDINGS: There is no evidence of acute infiltrate or pulmonary edema. The heart is normal in size. There is some calcification of the thoracic aorta. The mediastinal silhouette is unchanged. Multiple metallic clips are seen in the right axillary region. There is a right central venous catheter again seen with the tip in the superior vena cava. There is a stent in the left axillary region with adjacent metallic clips. IMPRESSION: No acute pulmonary disease. <Electronically signed by Justin Ugalde > 04/13/21 104
[2021-04-13 11:01] LABS: BLOOD UREA NITROGEN 13 MG/DL (7-18); CREATININE FOR GFR 3.48 MG/DL (0.55-1.30); GLOMERULAR FILTRATION RATE 13.7 (>39); GLUCOSE, FASTING 80 MG/DL (70-100)
[2021-04-13 11:02] LABS: ALT/SGPT 22 IU/L (0-32); CALCIUM LEVEL 8.6 MG/DL (8.8-10.2); CARBON DIOXIDE LEVEL 30 mmol/L (20-29); CHLORIDE LEVEL 101 MEQ/L (98-107); CPK CREATINE PHOSPHOKINASE 57 U/L (26-192); POTASSIUM SERUM 3.5 MEQ/L (3.5-5.1); SODIUM LEVEL 139 MEQ/L (136-145)
[2021-04-13 11:03] LABS: ALBUMIN 3.3 GM/DL (3.2-5.2); AMYLASE 75 U/L (25-115); BILIRUBIN,DIRECT 0.3 MG/DL (0.0-0.2); BILIRUBIN,TOTAL 1.1 MG/DL (0.2-1.0); CK-MB VALUE MASS < 1.0 NG/ML (<3.6); MB/CK RELATIVE INDEX 1.75 (< OR =4); RSV AMPLIFICATION NEGATIVE (NEGATIVE); TOTAL PROTEIN 6.1 GM/DL (6.4-8.2); TROPONIN I < 0.02 NG/ML (< 0.10)
[2021-04-13 11:04] LABS: LIPASE 467 U/L (73-393)
[2021-04-13] MEDS ORDERED: OMEP40CA97 PO (14:17)
[2021-04-13] MEDS ORDERED: SUCR1TA PO (14:17)
[2021-04-13 16:25] VITALS: BP 155/88
--- NOTE | 2021-04-13 19:52 | ECGEPIP ---
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
== END 2021-04-13 16:29 | disposition home or self-care (01) ==
LOC: M ED 09:00
DX: K29.70 Gastritis, unspecified, without bleeding (principal); R74.8 Abnormal levels of other serum enzymes; Z85.820 Personal history of malignant melanoma of skin; Z85.828 Personal history of other malignant neoplasm of skin; Z85.79 Personal history of other malignant neoplasms of lymphoid, hematopoietic and related tissues; N18.6 End stage renal disease; Z99.2 Dependence on renal dialysis; F17.200 Nicotine dependence, unspecified, uncomplicated; Z79.02 Long term (current) use of antithrombotics/antiplatelets; Z79.899 Other long term (current) drug therapy; Z88.1 Allergy status to other antibiotic agents

== ENCOUNTER 2021-04-24 16:05 | Emergency (ER) | payer MEDICARE, OTHER ==
[~2021-04-24] VITALS: Ht 162.6 cm; Wt 46.4 kg
[~2021-04-24 16:05] MED LIST changes: +ACET-910 PO; +ERGO500029 PO; +OMEP40CA4 PO; -OMEP40CA97 PO; +SUCR1TA PO; -VITA50005 PO
--- NOTE | 2021-04-24 16:44 | REP ---
INDICATION: cough. COMPARISON: 04/13/2021. TECHNIQUE: Single portable AP view of the chest was performed. FINDINGS: There is no acute infiltrate or pulmonary edema. Lungs are clear. The heart is not significantly enlarged. There is some calcification of the thoracic aorta. The mediastinal silhouette is unchanged. The visualized osseous structures are intact.Metallic clips are seen in the right axillary region. There is a left axillary stent. There is a right central venous catheter with the tip in the superior vena cava. IMPRESSION: No acute pulmonary disease. <Electronically signed by Justin Ugalde > 04/24/21 [id number]
[2021-04-24 17:21] LABS: INR 4.01
[2021-04-24 19:39] VITALS: BP 110/68
== END 2021-04-24 19:40 | disposition home or self-care (01) ==
LOC: M ED 16:05
DX: R79.1 Abnormal coagulation profile (principal); B34.8 Other viral infections of unspecified site; B34.1 Enterovirus infection, unspecified; K50.919 Crohn's disease, unspecified, with unspecified complications; Z86.73 Personal history of transient ischemic attack (TIA), and cerebral infarction without residual deficits; Z87.891 Personal history of nicotine dependence; Z79.01 Long term (current) use of anticoagulants; Z79.899 Other long term (current) drug therapy; Z88.1 Allergy status to other antibiotic agents

== ENCOUNTER 2021-06-05 21:47 | Inpatient (IN) | payer MEDICARE, OTHER ==
[~2021-06-05] VITALS: Ht 162.6 cm; Wt 48.9 kg
[~2021-06-05 21:47] MED LIST changes: +ADVA115A INH; +ADVA230A INH; +PROAAER10 INH
[2021-06-05] MEDS ORDERED: CEFEPIME HCL 2 GM in D5W MINI-BAG PLUS 50 ML IV ONE (23:00)
[2021-06-05] MEDS ORDERED: NS 500 ML IV ONE (23:00)
[2021-06-05 23:29] LABS: EOS % 0.1 % (0.0-3.0); HEMATOCRIT 28.9 % (36.0-47.0); HEMOGLOBIN 9.5 g/dl (12.0-15.5); LYMPH # 0.3 10^3/uL (1.5-5.0); LYMPH % 3.8 % (24.0-44.0); MEAN CORPUSCULAR HEMOGLOBIN 33.6 pg (27.0-33.0); MEAN CORPUSCULAR HGB CONC 32.9 g/dl (32.0-36.5); MEAN CORPUSCULAR VOLUME 102.1 fl (80.0-96.0); MONO # 0.3 10^3/uL (0.0-0.8); NEUTROPHILS # 7.2 10^3/uL (1.5-8.5); NEUTROPHILS % 91.7 % (36.0-66.0); PLATELET COUNT, AUTOMATED 153 10^3/uL (150-450); RED BLOOD COUNT 2.83 10^6/uL (4.00-5.40); WHITE BLOOD COUNT 7.8 10^3/uL (4.0-10.0)
[2021-06-05 23:39] LABS: INR 2.09; PROTHROMBIN TIME 23.9 SECONDS (12.7-14.5)
[2021-06-05 23:40] LABS: PARTIAL THROMBOPLASTIN TIME 36.5 SECONDS (25.9-37.0)
[2021-06-06 00:02] LABS: ALBUMIN 3.3 GM/DL (3.2-5.2); ALT/SGPT 16 U/L (12-78); AMYLASE 61 U/L (25-115); BILIRUBIN,DIRECT 0.3 MG/DL (0.0-0.2); BILIRUBIN,TOTAL 1.1 MG/DL (0.2-1.0); BLOOD UREA NITROGEN 31 MG/DL (7-18); CALCIUM LEVEL 8.5 MG/DL (8.8-10.2); CARBON DIOXIDE LEVEL 25 MEQ/L (21-32); CHLORIDE LEVEL 104 MEQ/L (98-107); CK-MB VALUE MASS < 1.0 NG/ML (<3.6); CPK CREATINE PHOSPHOKINASE 33 U/L (26-192); CREATININE FOR GFR 7.59 MG/DL (0.55-1.30); GLOMERULAR FILTRATION RATE 5.6 (>39); GLUCOSE, FASTING 106 MG/DL (70-100); LIPASE 325 U/L (73-393); MB/CK RELATIVE INDEX 3.03 (< OR =4); SODIUM LEVEL 138 MEQ/L (136-145); TOTAL PROTEIN 5.6 GM/DL (6.4-8.2); TROPONIN I < 0.02 NG/ML (< 0.10)
--- NOTE | 2021-06-06 00:46 | REPVR ---
PROCEDURE INFORMATION: Exam: XR Chest Exam date and time: 06/05/2021 11:22 PM Age: 75 years old Clinical indication: Other: Chills TECHNIQUE: Imaging protocol: XR of the chest. Views: 1 view. COMPARISON: MO Chest, 1 view 04/24/2021 4:34 PM FINDINGS: Tubes, catheters and devices: Right internal jugular dialysis catheter is unchanged. Lungs: Pulmonary hyperinflation. There are no interval infiltrates. Pleural spaces: Unremarkable. No pleural effusion. No pneumothorax. Heart/Mediastinum: The heart and mediastinum are unchanged. Bones/joints: Chronic rotator cuff tears of the shoulders bilaterally. Soft tissues: Right axillary surgical clips are noted. A left axillary venous stent is again noted. IMPRESSION: Stable chest since 04/24/2021. No acute interval process is identified. Electronically signed by: Michael Garcia On 06/06/2021 00:45:22 AM
--- NOTE | 2021-06-06 03:18 | REPVR ---
PROCEDURE INFORMATION: Exam: CT Abdomen And Pelvis Without Contrast Exam date and time: 06/06/2021 2:41 AM Age: 75 years old Clinical indication: Abdominal pain; Epigastric; Additional info: Epigastric discomfort TECHNIQUE: Imaging protocol: Computed tomography of the abdomen and pelvis without contrast. Radiation optimization: All CT scans at this facility use at least one of these dose optimization techniques: automated exposure control; mA and/or kV adjustment per patient size (includes targeted exams where dose is matched to clinical indication); or iterative reconstruction. COMPARISON: CT ABD/PEL W/IV ORAL CONTRAS 07/31/2020 2:46 PM FINDINGS: Lungs: Minimal bibasilar bullous change with slight interstitial coarsening. Liver: Normal. No mass. Gallbladder and bile ducts: Normal. No calcified stones. No ductal dilation. Pancreas: Normal. No ductal dilation. Spleen: Minimal splenic calcification. Adrenal glands: Normal. No mass. Kidneys and ureters: Moderate bilateral renal atrophy. There are bilateral renal cysts measuring up to 2.8 cm on the left with a Hounsfield measurement of 4 which are redemonstrated and similar to the prior study of 07/31/2020. Stomach and bowel: Status post colectomy with right abdominal ileostomy. Appendix: No evidence of appendicitis. Intraperitoneal space: Multiple surgical clips about the abdomen and pelvis which are similar to the prior study. Vasculature: There is mild calcification of the abdominal aorta with extension into the iliac arteries. Lymph nodes: Unremarkable. No enlarged lymph nodes. Urinary bladder: Unremarkable as visualized. Reproductive: Unremarkable as visualized. Bones/joints: Status post vertebroplasty involving T12-L2 with wedge configuration of T12 and to a progressively lesser degree L1-L2. 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 IMPRESSION: 1. There has been little change from 07/31/2020. No acute interval process is identified. 2. Moderate bilateral renal atrophy. 3. Status post colectomy with right abdominal ileostomy. Surgical clips are noted about the abdomen and pelvis which are similar. Electronically signed by: Michael Garcia On 06/06/2021 03:18:33 AM
--- NOTE | 2021-06-06 03:18 | HPEPDOC ---
[facility] Medical History & Physical Date of Admission Jun 06, 2021 Date of Service: Jun 06, 2021 History and Physical CHIEF COMPLAINT: Chills HISTORY OF PRESENT ILLNESS: 75F hx ESRD on HD, MM on chemo, TIA, Crohn's who presents with complaint of chills for 1 day duration. onset was sudden and she didn't feel herself. She a lso noticed that her ostomy output was increased and loose although today it is better. She was experiencing some LLQ abdominal pain with she often experiences which she attributes to having 'knots', her current abdominal pain isn't much different from normal. This prompted her to present to the ED. in the emergency department she was noted to be tachypneic and have some mild tachycardia. Blood cultures were drawn and she was started on empiric antibiotics. No source of infection has been identified at this point. Patient endorses that she hasn't been feeling feverish at home she denies any chest pain. She endorses that she feels always short of breath after an episode of a coma she had for one week but it is unchanged from her normal. She makes very little urine but when she does she denies any dysuria and denies lower history swelling. It was noted her blood pressure was low she says that her blood pressures always low and affect the current pressures are actually elevated for her at around 100/55. She received some fluids in the emergency department and one dose of IV cefepime her tachypnea resolved her tachycardia resolved and her blood pressure appeared to improve up to 113/53. Patient about to get a CT of her abdomen/pelvis for further workup. Patient will be admitted to medical service further medical management. PAST MEDICAL/SURGICAL HISTORY: From chart review and confirmed with patient: Basal cell carcinoma Right arm melanoma Melanoma IgG kappa multiple myeloma diagnosed 2008, status post stem cell transplant, with recurrence and relapse requiring chemotherapy and radiation. Currently on chemotherapy with Dr Woodward which she gets every . Peripheral neuropathy End-stage renal disease, on maintenance dialysis. Follows with Dr Mckenzie. Secondary hyperparathyroidism. Anemia of chronic disease due to renal failure. Postherpetic neuralgia. Crohn disease, status post colectomy and ileostomy. Follows with GI Dr Licona. Hypothyroidism. History of transient ischemic attack. Colectomy with ostomy placement PermaCath placement Vertebroplasty lumbar spine. AV fistula, clotting and bleeding requiring ligation, removal. Appendectomy Right arm melanoma removal. Basal cell carcinoma removal. Melanoma resection from her extremity Stem cell transplant SOCIAL HISTORY: Denies alcohol use Denies tobacco use Denies illicit drug use FAMILY HISTORY: Reviewed and none contributory to this admission ALLERGIES: Please see below. REVIEW OF SYSTEMS: 10 point review of systems complete all negative otherwise stated in HPI HOME MEDICATIONS: Please see below. PHYSICAL EXAMINATION: Constitutional: Awake and alert, in no apparent distress ENT: Sclera are clear. Mucosa is moist. Respiratory: Lungs CTA bilaterally. No respiratory distress. No use of accessory muscles. Cardiovascular: RRR S1 and S2 are normal, no murmur Gastrointestinal: Abdomen is soft, non distended, LLQ mild tender to deep palpation. No rebound tenderness, BS present. Ostomy bag in place. Musculoskeletal: No lower extremity edema. Neurologic: No focal neurological deficit. No extremity weakness. Speech is clear. Mental Status: A&O x3, normal affect Skin: No visible rashes. LABORATORY DATA: See below. IMAGING: See chart MICROBIOLOGY: Please see below. ASSESSMENT/PLAN 75F hx ESRD on HD, MM on chemo, TIA, Crhons who presents with complaint of chills, found to meet SIRS criteria on presentation with unknown source of infection at this point. Admitted for further medical workup and evaluation. # Chills: Meets SIRS criteria (Tachycardia/Tachypnea on presentation) source not yet clear, suspected to be abdominal. Has chills and abdominal pain. Another potential source is her permacath. No leukocytosis but likely immunocompromised due to the chemotherapy. CT abdomen/pelvis pending. IVFs. Emperic ABx with IV Cefepime Fu BCx. # Cronhs s/p colectomy and ostomy: High ostomy output although better today. GI panel. Continue to monitor her output. # ESRD on HD: Per Nephrology. Resume warfarin prescribed by nephrology to prevent the permacath from clotting. # Hx TIA: continue ASA/statin. # Hypothyroidism: resume Synthroid. # ACD: likely 2/2 ESRD. at baseline. # MM on chemotherapy: fu with Dr Woodward. # DVT Prophylaxis: on warfarin. INR is therapeutic 2.09 A Yousef Hospitalist Vital Signs Vital Signs Date Time Temp Pulse Resp B/P (MAP) Pulse Ox O2 Delivery O2 Flow Rate FiO2 06/06/21 02:17 75 18 100/55 (70) 95 Room Air 83/21 22:03 98.7 Laboratory Data Labs 24H Laboratory Tests 2 06/05/21 23:17: Lactic Acid Level 1.4 06/05/21 23:18: Immature Granulocyte % (Auto) 0.4, Neutrophils (%) (Auto) 91.7H, Lymphocytes (%) (Auto) 3.8L, Monocytes (%) (Auto) 4.0, Eosinophils (%) (Auto) 0.1, Basophils (%) (Auto) 0.0, Neutrophils # (Auto) 7.2, Lymphocytes # (Auto) 0.3L, Monocytes # (Auto) 0.3, Eosinophils # (Auto) 0.0, Basophils # (Auto) 0.0, Nucleated Red Blood Cells % (auto) 0.0, Prothrombin Time 23.9H, Prothromb Time International Ratio 2.09, Activated Partial Thromboplast Time 36.5, Anion Gap 9, Glomerular Fi ltration Rate 5.6L, Calcium Level 8.5L, Total Bilirubin 1.1H, Direct Bilirubin 0.3H, Aspartate Amino Transf (AST/SGOT) 13, Alanine Aminotransferase (ALT/SGPT) 16, Alkaline Phosphatase 60, Total Creatine Kinase 33, Creatine Kinase MB < 1.0, Creatine Kinase MB Relative Index 3.03, Troponin I < 0.02, Total Protein 5.6L, Albumin 3.3, Albumin/Globulin Ratio 1.4, Amylase Level 61, Lipase 325 CBC/BMP Laboratory Tests 06/05/21 23:18 Microbiology Microbiology 06/05/21 Respiratory Virus Panel (PCR) (AIDEE) - Final, Complete 06/05/21 Blood Culture, Received Pending 06/05/21 Blood Culture, Received Pending Home Medications Scheduled Atorvastatin Calcium (Atorvastatin Calcium) 10 Mg Tablet, 10 MG PO QHS Cholecalciferol (Vitamin D3) (D3-2000) 50 Mcg Capsule, 2,000 UNITS PO DAILY Cyclosporine (Restasis) 0.05% Droperette, 1 DROP OU BID Dexamethasone (Dexamethasone) 4 Mg Tablet, 4 MG PO ASDIRECTED TAKE BEFORE CHEMO ON THE THIRD FRIDAY OF EACH MONTH Fluticasone Propion/Salmeterol (Advair Hfa 230-21 Mcg Inhaler) 12 Gm Hfa.aer.ad, 2 PUFF INH BID Levothyroxine Sodium (Levothyroxine Sodium) 75 Mcg Tablet, 75 MCG PO DAILY Dorothy-3 Fatty Acids/Fish Oil (Fish Oil 1,000 mg Capsule) 1 Each Capsule, 1,000 MG PO DAILY Sevelamer Carbonate (Renvela) 800 Mg Tablet, 2,400 MG PO WM Sevelamer Carbonate (Renvela) 800 Mg Tablet, 800 MG PO ASDIRECTED WITH SNACKS Warfarin Sodium (Warfarin Sodium) 5 Mg Tablet, 5 MG PO 4XWK FRIDAY/FRIDAY/FRIDAY/FRIDAY AT QHS Warfarin Sodium (Warfarin Sodium) 5 Mg Tablet, 2.5 MG PO 2XW FRIDAY AND FRIDAY AT QHS Scheduled PRN Acetaminophen (Acetaminophen) 325 Mg Tablet, 650 MG PO Q6H PRN for PAIN LEVEL 1- 5 Albuterol Sulfate (Proair Hfa) 8.5 Gm Hfa.aer.ad, 2 PUFF INH Q4H PRN for SHORTNESS OF BREATH Allergies Coded Allergies: vancomycin (Verified Allergy, Intermediate, RASH/ITCHING, 01/24/20) YINKA RICHMOND MD Jun 06, 2021 03:18
[2021-06-06] MEDS ORDERED: NS 1,000 ML IV SCH (03:30)
[2021-06-06] MEDS ORDERED: WARF-23 PO ×2 (03:33)
[2021-06-06] MEDS ORDERED: PROAAER10 INH (03:33)
[2021-06-06] MEDS ORDERED: HOME MED LIST COMPLETE! XX SCH (03:35)
[2021-06-06] MEDS ORDERED: (RENVELA) SEVELAMER **CARBONate** 800 MG TAB PO SCH (03:50)
[2021-06-06] MEDS ORDERED: ALBUTEROL 90 MCG/ACT 8GM HFA INHALER INH PRN (03:50)
[2021-06-06 05:25] VITALS: BP 111/69
[2021-06-06] MEDS: LEVOTHYROXINE 75MCG TABLET (0.075MG) PO SCH (05:41)
[2021-06-06 06:00] VITALS: BP 111/69
--- NOTE | 2021-06-06 06:03 | ECGEPIP ---
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
[2021-06-06] MEDS ORDERED: CEFEPIME HCL 2 GM in D5W 50 ML IV SCH (07:00)
[2021-06-06] MEDS: (RENVELA) SEVELAMER **CARBONate** 800 MG TAB PO SCH ×3 (07:42→18:15)
[2021-06-06 07:51] LABS: HEMATOCRIT 29.1 % (36.0-47.0); HEMOGLOBIN 9.3 g/dl (12.0-15.5); MEAN CORPUSCULAR HEMOGLOBIN 33.3 pg (27.0-33.0); MEAN CORPUSCULAR VOLUME 104.3 fl (80.0-96.0); PLATELET COUNT, AUTOMATED 137 10^3/uL (150-450); RED BLOOD COUNT 2.79 10^6/uL (4.00-5.40); WHITE BLOOD COUNT 6.1 10^3/uL (4.0-10.0)
[2021-06-06 08:02] VITALS: BP 142/58
[2021-06-06 08:21] LABS: BILIRUBIN,TOTAL 1.2 MG/DL (0.2-1.0); CALCIUM LEVEL 8.9 MG/DL (8.8-10.2); CREATININE FOR GFR 7.99 MG/DL (0.55-1.30); GLOMERULAR FILTRATION RATE 5.3 (>39); POTASSIUM SERUM 4.2 MEQ/L (3.5-5.1)
[2021-06-06] MEDS: ACETAMINOPHEN TAB 650MG DOSE (2X325MG) PO PRN (08:54)
[2021-06-06 12:00] VITALS: BP 90/54
[2021-06-06] MEDS ORDERED: SLF 3 ML SYR IV PRN (14:05)
--- NOTE | 2021-06-06 16:24 | IPNPDOC ---
Subjective Date Seen The patient was seen on 06/06/21. Subjective Chief Complaint/HPI Patient was seen and examined at bedside this morning. She reports she feels better and no longer has fevers and chills, and her myalgias/malaise has improved. She denies headaches, chest pain, shortness of breath, abdominal pain, nausea, vomiting, problems with urination bowel movements Other systems 10 point review of system was negative except for what is noted in the HPI. Objective Physical Examination Other physical findings General: Lying in bed, no acute distress Head/Neck/Throat: Trachea midline, mucous membranes moist Eyes: Sclera anicteric, no erythema or discharge appreciated bilaterally Thorax: Normal respiratory effort on room air, lungs clear to auscultation bilaterally, no wheezes/rales/rhonchi Cardiovascular: Normal rate, regular rhythm, normal S1, S2; no S3, S4, rubs/gallops/murmurs Abdomen: Bowel sounds present, there is a colostomy bag with healthy tissue surrounding the ostomy site, with acceptable output. Genitourinary: No CVA tenderness, no Panchal in place Musculoskeletal: Moving all extremities, no edema Skin: Permacath site reveals no erythema, induration, abscess Neurologic: AAOx3, speech fluent and goal-directed, no focal deficits, grossly intact Assessment /Plan Plan/VTE VTE Prophylaxis Ordered?: Yes Plan Ms. Turner, presented to the emergency department after she had 1 day of fever, chills, and myalgia. She is currently being treated for multiple myeloma as well as undergoing dialysis for her end-stage renal disease. #Sepsis -Source unclear at this time. Imaging negative. She has a permacath with a clean site. Will hold off on pulling it out at this time. If her blood cultures do grow back with concerneing organism, then will make determination of pulling the time. For now continue with broad-spectrum antibiotics until we have cultures. #Chron's disease -Status post colostomy. The ostomy site has healthy tissue around it without any erythema. She has acceptable output. #End-stage renal disease -We will continue with regular dialysis sessions. Nephrology is following. -? On warfarin to prevent permacath from clotting #Hypothyroidism -Continue levothyroxine. #Hx of TIA -Continue with aspirin and statin therapy #Multiple myeloma -She is undergoing active treatment with monoclonal antibodies for her multiple myeloma. Her case was discussed with Dr. Woodward. She was scheduled for treatment on 06/07 however she will not be able to make this and will resume treatment on 06/14. #DVT prophylaxis -On warfarin. VS, I&O, 24H, Fishbone Vital Signs/I&O Vital Signs Date Time Temp Pulse Resp B/P (MAP) Pulse Ox O2 Delivery O2 Flow Rate FiO2 06/06/21 06:00 98.3 82 19 111/69 (83) 98 Room Air I&O- Last 24 Hours up to 6 AM 06/06/21 06:00 Intake Total 700 ml Balance 700 ml Laboratory Data 24H LABS Laboratory Tests 2 06/05/21 23:17: Lactic Acid Level 1.4 06/05/21 23:18: Immature Granulocyte % (Auto) 0.4, Neutrophils (%) (Auto) 91.7H, Lymphocytes (%) (Auto) 3.8L, Monocytes (%) (Auto) 4.0, Eosinophils (%) (Auto) 0.1, Basophils (%) (Auto) 0.0, Neutrophils # (Auto) 7.2, Lymphocytes # (Auto) 0.3L, Monocytes # (Auto) 0.3, Eosinophils # (Auto) 0.0, Basophils # (Auto) 0.0, Nucleated Red Blood Cells % (auto) 0.0, Prothrombin Time 23.9H, Prothromb Time International Ratio 2.09, Activated Partial Thromboplast Time 36.5, Anion Gap 9, Glomerular Filtration Rate 5.6L, Calcium Level 8.5L, Total Bilirubin 1.1H, Direct Bilirubin 0.3H, Aspartate Amino Transf (AST/SGOT) 13, Alanine Aminotransferase (ALT/SGPT) 16, Alkaline Phosphatase 60, Total Creatine Kinase 33, Creatine Kinase MB < 1.0, Creatine Kinase MB Relative Index 3.03, Troponin I < 0.02, Total Protein 5.6L, Albumin 3.3, Albumin/Globulin Ratio 1.4, Amylase Level 61, Lipase 325 CBC/BMP Laboratory Tests 06/05/21 23:18 Microbiology Microbiology 06/05/21 Respiratory Virus Panel (PCR) (AIDEE) - Final, Complete 06/05/21 Blood Culture, Received Pending 06/05/21 Blood Culture, Received Pending DEAN KHAN M.D. Jun 06, 2021 07:09
[2021-06-06 17:10] VITALS: BP 102/48
[2021-06-06 20:00] VITALS: BP 96/52
--- NOTE | 2021-06-06 20:45 | CR ---
CONSULTATION DATE: 06/06/2021 REQUESTING PHYSICIAN: Rustam Chaudhry MD REASON FOR CONSULTATION: Assist in the management of end-stage renal disease. HISTORY OF PRESENT ILLNESS: Ms. Escobedo is a 75-year-old lady with known history of end-stage renal disease, multiple myeloma on chemotherapy, history of Crohn's disease, status post colostomy and history of transient ischemic attack (TIA). She was admitted to [facility] last evening with shivering and chills. She was felt to have sepsis and she also had fever. She had noticed significant increase in her ostomy output and also reported left lower quadrant abdominal pain. Her blood cultures were drawn in the emergency room and stool was sent for a gastrointestinal (GI) panel. She was given antibiotics with cefepime. The patient is due for dialysis today and nephrology consultation was requested. The patient is seen this morning. PAST MEDICAL HISTORY: Significant for: 1. History of multiple myeloma, currently on chemotherapy due to recurrence. 2. End-stage renal disease requiring maintenance hemodialysis. 3. History of melanoma in the past. 4. History of anemia. 5. History of severe peripheral neuropathy. 6. Secondary hyperparathyroidism. 7. History of post herpetic neuralgia 8. History of Crohn's disease, status post colectomy and ileostomy. 9. Hypothyroidism. 10.History of transient ischemic attack (TIA). 11.History of basal cell carcinoma. 12.History of generalized weakness and chronic hypoxemia. PAST SURGICAL HISTORY: Significant for colectomy and ileostomy, PermCath placement, vertebroplasty in lumbar spine, AV fistula creation and clotting, multiple procedures, appendectomy, right arm melanoma removal, basal cell carcinoma removal, stem cell transplant. PERSONAL AND SOCIAL HISTORY: The patient has no history of alcohol, drug or tobacco use. FAMILY HISTORY: Noncontributory. MEDICATIONS: Her home medications include atorvastatin 20 mg daily, vitamin D 2000 units daily, dexamethasone 4 mg along with her chemotherapy, levothyroxine 75 mcg daily, Renvela 2400 mg with meals, coumadin 5 mg four times a week and 2.5 mg two times a week. She does not take coumadin on Sundays. ALLERGIES: She has allergy to VANCOMYCIN. REVIEW OF SYSTEMS: The patient reports fever along with shivering and chills for 24 hours. Denies any headache. Ears, nose and throat: Unremarkable. Cardiovascular system: Significant for chronic dyspnea on exertion. She denies any chest pain at present. Respiratory system: Significant for chronic hypoxemia and dyspnea. She denies any hemoptysis or pleuritic type of chest pain. Gastrointestinal (GI) system is significant for increased output from her ileostomy. She had a colostomy several years ago due to Crohn disease. Genitourinary () system is significant for end-stage renal disease. She has minimal urine output if at all. Musculoskeletal system: Significant for difficulty with ambulation, generalized weakness and back and shoulder pain. Endocrine system is significant for hypothyroidism and secondary hyperparathyroidism. Psychosocial system is significant for anxiety. Neurological system: Significant for peripheral neuropathy and transient ischemic attack (TIA). Skin is significant for prior history of malignant melanoma and basal cell carcinoma. She denies any rash or ulcers. PHYSICAL EXAMINATION: Temperature 98.6 degrees Fahrenheit, heart rate 85 per minute, respiratory rate 20 per minute. Blood pressure 142/58 mmHg and oxygen saturation 99% on room air. Head is atraumatic. Neck supple and jugular venous distention (JVD) not abnormally elevated. She has a PermCath in her right internal jugular vein. She reports some nosebleed earlier, however, there is no active bleeding at present. There is no oral thrush or ulcers. Heart sounds are regular and lungs sound clear to auscultation. Abdomen is soft and nontender and her ileostomy is functioning. Extremities without any cyanosis or clubbing. She has an old AV fistula in her left arm which is nonfunctioning. Neurologically, she is awake, alert and at her baseline mentation. LABORATORY DATA: Today's lab show WBC count 6.1, hemoglobin 9.3 and hematocrit 29.1, platelets 137. Sodium 138, potassium 4.2, Co2 24, BUN 36 and creatinine 7.99, glucose 88 and calcium 8.9. Total protein 6.0 and albumin 3.0. PROBLEMS: 1. End-stage renal disease. The patient is due for hemodialysis today. Will plan dialysis for this afternoon. Her electrolytes are stable and volume is well compensated. I do not feel that she will need any fluid removal. 2. Fever and shivering. She most likely has sepsis. The source of sepsis remains unclear. Her PermCath site looks clean. Will wait for blood cultures; and in the meantime continue with cefepime for now. 3. Anemia. Her anemia is stable at present and does not need any urgent intervention. 4. Multiple myeloma. The patient has a history of recurrent multiple myeloma following failed stem cell transplant. She is currently on chemotherapy which will need to be held due to acute infection. 5. Prior history of strokes and atrial fibrillation. She has been on chronic anticoagulation. INR was 2.0 last evening. She will continue with her chronic anticoagulation therapy. Thank you for involving in the care of Ms. Escobedo. I will follow her along with you.
[2021-06-06] MEDS: CEFEPIME HCL 1 GM in D5W MINI-BAG PLUS 50 ML IV SCH (22:54)
[2021-06-06] MEDS: SLF 3 ML SYR IV SCH (22:54)
[2021-06-06] MEDS: ATORVASTATIN 10 MG TAB PO SCH (22:54)
[2021-06-07] VITALS: BP 110/56
[2021-06-07 04:00] VITALS: BP 120/57
[2021-06-07] MEDS: ACETAMINOPHEN TAB 650MG DOSE (2X325MG) PO PRN (04:10)
[2021-06-07 04:55] LABS: HEMATOCRIT 27.1 % (36.0-47.0); HEMOGLOBIN 8.9 g/dl (12.0-15.5); MEAN CORPUSCULAR HEMOGLOBIN 34.2 pg (27.0-33.0); MEAN CORPUSCULAR HGB CONC 32.8 g/dl (32.0-36.5); MEAN CORPUSCULAR VOLUME 104.2 fl (80.0-96.0); PLATELET COUNT, AUTOMATED 119 10^3/uL (150-450); WHITE BLOOD COUNT 4.5 10^3/uL (4.0-10.0)
[2021-06-07 05:24] LABS: CALCIUM LEVEL 8.8 MG/DL (8.8-10.2); CREATININE FOR GFR 5.51 MG/DL (0.55-1.30); GLOMERULAR FILTRATION RATE 8.1 (>39); MAGNESIUM LEVEL 1.9 MG/DL (1.8-2.4); PHOSPHORUS LEVEL 2.3 MG/DL (2.5-4.9); POTASSIUM SERUM 4.1 MEQ/L (3.5-5.1)
[2021-06-07] MEDS: SLF 3 ML SYR IV SCH ×3 (06:11→21:29)
[2021-06-07] MEDS: LEVOTHYROXINE 75MCG TABLET (0.075MG) PO SCH (06:11)
--- NOTE | 2021-06-07 06:35 | IPNPDOC ---
Subjective Date Seen The patient was seen on 06/07/21. Subjective Chief Complaint/HPI Patient seen and examined at bedside this morning. She had no new complaints. She denies headaches, palpitations, abdominal pain, nausea, vomiting, problems with urination or bowel movements. Other systems 10 point review of system was negative except for what is noted in the HPI. Objective Physical Examination Other physical findings General: Lying in bed, no acute distress Head/Neck/Throat: Trachea midline, mucous membranes moist Eyes: Sclera anicteric, no erythema or discharge appreciated bilaterally Thorax: Normal respiratory effort on room air, lungs clear to auscultation bilaterally, no wheezes/rales/rhonchi Cardiovascular: Normal rate, regular rhythm, normal S1, S2; no S3, S4, rubs/gallops/murmurs Abdomen: Bowel sounds present, there is a colostomy bag with healthy tissue surrounding the ostomy site, with acceptable output. Genitourinary: No CVA tenderness, no Panchal in place Musculoskeletal: Moving all extremities, no edema Skin: Permacath site reveals no erythema, induration, abscess Neurologic: AAOx3, speech fluent and goal-directed, no focal deficits, grossly intact Assessment /Plan Plan/VTE VTE Prophylaxis Ordered?: Yes Plan #Sepsis -Bacteremic with unclear source. Imaging negative. She has a permacath with a clean site. Will hold off on pulling it out at this time. If her blood cultures do grow back with concerneing organism, then will make determination of pulling the time. For now continue with broad-spectrum antibiotics until we have cultures. #Electrolyte abnormality -Hypophosphatemia, will hold sevelamer. #Chron's disease -Status post colostomy. The ostomy site has healthy tissue around it without any erythema. She has acceptable output. #End-stage renal disease -We will continue with regular dialysis sessions. Nephrology is following. -? On warfarin to prevent permacath from clotting #Hypothyroidism -Continue levothyroxine. #Hx of TIA -Continue with aspirin and statin therapy #Multiple myeloma -She is undergoing active treatment with monoclonal antibodies for her multiple myeloma. Her case was discussed with Dr. Woodward. She was scheduled for treatment on 06/07 however she will not be able to make this and will resume treatment on 06/14. #DVT prophylaxis -On warfarin. VS, I&O, 24H, Fishbone Vital Signs/I&O Vital Signs Date Time Temp Pulse Resp B/P (MAP) Pulse Ox O2 Delivery O2 Flow Rate FiO2 06/07/21 04:00 97.0 64 18 120/57 (78) 98 Room Air I&O- Last 24 Hours up to 6 AM 06/07/21 06:00 Intake Total 960 ml Output Total 300 ml Balance 660 ml Laboratory Data 24H LABS Laboratory Tests 2 06/06/21 07:34: Nucleated Red Blood Cells % (auto) 0.0, Anion Gap 9, Glomerular Filtration Rate 5.3L, Calcium Level 8.9, Total Bilirubin 1.2H, Aspartate Amino Transf (AST/SGOT) 12, Alanine Aminotransferase (ALT/SGPT) 17, Alkaline Phosphatase 59, Total Protein 6.0L, Albumin 3.0L, Albumin/Globulin Ratio 1.0L, Procalcitonin 7.45 06/07/21 04:22: Nucleated Red Blood Cells % (auto) 0.0, Anion Gap 6L, Glomerular Filtration Rate 8.1L, Calcium Level 8.8, Phosphorus Level 2.3L, Magnesium Level 1.9 CBC/BMP Laboratory Tests 06/06/21 07:34 06/07/21 04:22 Microbiology Microbiology 06/06/21 Gastrointestinal Tract Panel (PCR) - Final, Complete 06/05/21 Respiratory Virus Panel (PCR) ([facility]) - Final, Complete 06/05/21 Blood Culture - Preliminary, Resulted No growth after 24 hours . All specim... 06/05/21 Blood Culture - Preliminary, Resulted DEAN KHAN M.D. Jun 07, 2021 06:35
[2021-06-07 08:00] VITALS: BP 119/58
[2021-06-07] MEDS: (RENVELA) SEVELAMER **CARBONate** 800 MG TAB PO SCH ×3 (08:09→18:00)
[2021-06-07 12:00] VITALS: BP 120/59
[2021-06-07] MEDS: LINEZOLID 600 MG in IV 1 EA IV SCH (16:03)
[2021-06-07] MEDS: ATORVASTATIN 10 MG TAB PO SCH (21:28)
[2021-06-07] MEDS: WARFARIN SOD 5MG TAB PO SCH (21:28)
[2021-06-07 22:00] VITALS: BP 116/62
[2021-06-07] MEDS: CEFEPIME HCL 1 GM in D5W MINI-BAG PLUS 50 ML IV SCH (22:37)
[2021-06-07] MEDS: ONDANSETRON 4MG/2ML VIAL IV PRN (22:38)
[2021-06-08] MEDS: LINEZOLID 600 MG in IV 1 EA IV SCH ×2 (04:32→18:05)
[2021-06-08] MEDS: LEVOTHYROXINE 75MCG TABLET (0.075MG) PO SCH (05:33)
[2021-06-08 06:00] VITALS: BP 115/51
[2021-06-08 06:43] LABS: HEMATOCRIT 27.1 % (36.0-47.0); HEMOGLOBIN 8.8 g/dl (12.0-15.5); MEAN CORPUSCULAR HEMOGLOBIN 33.6 pg (27.0-33.0); MEAN CORPUSCULAR HGB CONC 32.5 g/dl (32.0-36.5); MEAN CORPUSCULAR VOLUME 103.4 fl (80.0-96.0); PLATELET COUNT, AUTOMATED 134 10^3/uL (150-450); RED BLOOD COUNT 2.62 10^6/uL (4.00-5.40); WHITE BLOOD COUNT 5.1 10^3/uL (4.0-10.0)
[2021-06-08] MEDS: SLF 3 ML SYR IV SCH ×3 (06:47→22:13)
[2021-06-08] MEDS: (RENVELA) SEVELAMER **CARBONate** 800 MG TAB PO SCH ×3 (06:47→18:05)
[2021-06-08 06:53] LABS: INR 1.15; PROTHROMBIN TIME 15.2 SECONDS (12.7-14.5)
[2021-06-08 07:13] LABS: CALCIUM LEVEL 8.6 MG/DL (8.8-10.2); CREATININE FOR GFR 7.24 MG/DL (0.55-1.30); GLOMERULAR FILTRATION RATE 5.9 (>39); MAGNESIUM LEVEL 1.9 MG/DL (1.8-2.4); PHOSPHORUS LEVEL 2.7 MG/DL (2.5-4.9); POTASSIUM SERUM 3.9 MEQ/L (3.5-5.1)
--- NOTE | 2021-06-08 08:22 | IPN ---
NEPHROLOGY PROGRESS NOTE DATE: 06/07/2021 SUBJECTIVE: Ms. Escobedo is seen this morning on her bedside. She is feeling better today and denies any further shivering or chills. Yesterday she had fever and shivering during dialysis and her dialysis was stopped one hour prematurely. Patient denies any nausea or vomiting. Her colostomy is functioning well. Her blood cultures have been reported positive for gram-negative rods and gram-positive cocci in clusters. Her gastrointestinal (GI) panel came back negative. PHYSICAL EXAMINATION: VITAL SIGNS: Temperature 98 degrees Fahrenheit, heart rate 61 per minute, respiratory rate 17 per minute, blood pressure 119/58 mmHg, oxygen saturation 98% on room air. HEAD: Atraumatic. NECK: Supple and without jugular venous distention (JVD) or thyroid enlargement. Permacath is present in right internal jugular vein. HEART SOUNDS: Regular. LUNGS: Clear to auscultation. ABDOMEN: Soft and nontender. Bowel sounds are normal. Ileostomy is functioning. EXTREMITIES: Without any cyanosis or clubbing. NEUROLOGIC: She is awake, alert and oriented times three. LABORATORY DATA: Today's labs show WBC 4.5, hemoglobin 8.9, hematocrit 27, platelets 119. Sodium 136, potassium 4.1, CO2 23, BUN 26, creatinine 5.51, glucose 94, calcium 8.8. Blood cultures preliminary report positive for gram-negative rods and gram-positive cocci. PROBLEMS: 1. End-stage renal disease. Patient was dialyzed yesterday and she received only partial dialysis treatment. We will plan next dialysis treatment for tomorrow. 2. Bacteremia. She seems to have gram-negative rods and gram-positive cocci in different blood cultures. She is currently afebrile and shivering has stopped. I feel that the only source of infection could be her dialysis catheter. She has very difficult abscess and not many options. I will try to salvage her dialysis catheter if at all possible. She is currently receiving cefepime and linezolid and she will continue with the same. I think that her antibiotics should be given through her dialysis catheter in order to clear the infection. I would also recommend to get infectious disease consultation. 3. Anemia. Her anemia is stable at present and does not need any urgent intervention. 4. Multiple myeloma. Patient has history of recurrent multiple myeloma and has been on chemotherapy. She has been quite immunocompromised. Her chemotherapy will be on hold until her infection is completely cleared.
--- NOTE | 2021-06-08 11:09 | IPN ---
PROGRESS NOTE DATE: 06/08/2021 SUBJECTIVE: Mrs. Turner is seen this morning on her bedside during hemodialysis. She is feeling better today and denies any shivering, chills, fever or dyspnea. She did have some nausea and vomiting yesterday which has also improved now as she was treated with Zofran. She remains on intravenous antibiotics including Linezolid and Cefepime. Her blood cultures have come back positive for Klebsiella and Staph epidermidis. OBJECTIVE: VITAL SIGNS: Temperature 98.4 degrees Fahrenheit, heart rate is 60 per minute and respiratory rate is 18 per minute. Blood pressure 115/50 mmHg and oxygen saturation 97% on room air. HEENT: Head is atraumatic. NECK: Supple without JVD or thyroid enlargement. HEART: Heart sounds are regular. LUNGS: Clear to auscultation. Hemodialysis catheter on right upper chest is without any drainage or erythema. ABDOMEN: Soft and nontender. Her ileostomy is functioning. EXTREMITIES: Without any cyanosis or clubbing. NEUROLOGIC: She is awake, alert and oriented x3. LABORATORY DATA: Today's labs showed a WBC of 5.1, hemoglobin 8.8 and hematocrit 27.1, platelets are 134,000. Sodium 137, potassium is 3.9, CO2 21, BUN 35 and creatinine 7.24, calcium 8.6 and phosphorus 2.7. PROBLEMS: 1. Endstage renal disease, patient is currently being dialyzed and she is tolerating the dialysis treatment well. 2. Anemia, her anemia is essentially unchanged over the last 24 hours. At this point I will hold off on Aranesp as she has received her usual medication in the outpatient dialysis clinic. 3. Klebsiella bacteremia, the source remains unclear. Her dialysis catheter is also being used for chemotherapy. I am not sure if it is contamination or more likely infection. She has a very difficult situation with dialysis access. I would recommend to get Infectious Disease on board and continue with antibiotics for now. 4. Multiple myeloma. She has been on chemo which is currently on hold due to ongoing bacteremia.
[2021-06-08 14:00] VITALS: BP 116/61
--- NOTE | 2021-06-08 19:43 | IPNPDOC ---
Subjective Date Seen The patient was seen on 06/08/21. Subjective Chief Complaint/HPI Patient was seen and examined at bedside this morning. She was in dialysis. She had no new complaints. She reported feeling well. No overnight events were reported. She denies headaches, chest pain, chills, abdominal pain, nausea, vomiting, problems with bowel movements. Other systems 10 point review of system negative except for what is noted in the HPI. Objective Physical Examination Other physical findings General: Lying in bed, no acute distress Head/Neck/Throat: Trachea midline, mucous membranes moist Eyes: Sclera anicteric, no erythema or discharge appreciated bilaterally Thorax: Normal respiratory effort on room air, lungs clear to auscultation bilaterally, no wheezes/rales/rhonchi Cardiovascular: Normal rate, regular rhythm, normal S1, S2; no S3, S4, rubs/gallops/murmurs Abdomen: Bowel sounds present, there is a colostomy bag with healthy tissue surrounding the ostomy site, with acceptable output. Genitourinary: No CVA tenderness, no Panchal in place Musculoskeletal: Moving all extremities, no edema Skin: Permacath site reveals no erythema, induration, abscess Neurologic: AAOx3, speech fluent and goal-directed, no focal deficits, grossly intact Assessment /Plan Plan/VTE VTE Prophylaxis Ordered?: Yes Disposition #Sepsis -Bacteremic - Growing Staphylococcus epidermidis and Klebsiella oxytoca. Sensitive to cefepime and Zyvox respectively. We will repeat blood cultures on 06/09. We will need to touch base with infectious disease team to see if permacath needs to be pulled. #Electrolyte abnormality -Hypophosphatemia, will hold sevelamer. #Chron's disease -Status post colostomy. The ostomy site has healthy tissue around it without any erythema. She has acceptable output. #End-stage renal disease -We will continue with regular dialysis sessions. Nephrology is following. -? On warfarin to prevent permacath from clotting #Hypothyroidism -Continue levothyroxine. #Hx of TIA -Continue with aspirin and statin therapy #Multiple myeloma -She is undergoing active treatment with monoclonal antibodies for her multiple myeloma. Her case was discussed with Dr. Woodward. She was scheduled for treatm ent on 06/07 however she will not be able to make this and will resume treatment on 06/14. #DVT prophylaxis -On warfarin. VS, I&O, 24H, Fishbone Vital Signs/I&O Vital Signs Date Time Temp Pulse Resp B/P (MAP) Pulse Ox O2 Delivery O2 Flow Rate FiO2 06/07/21 22:00 99.4 68 18 116/62 (80) 97 Room Air I&O- Last 24 Hours up to 6 AM 06/08/21 06:00 Intake Total 1370 ml Output Total 650 ml Balance 720 ml Laboratory Data Microbiology Microbiology 06/06/21 Gastrointestinal Tract Panel (PCR) - Final, Complete 06/05/21 Respiratory Virus Panel (PCR) ([facility]) - Final, Complete 06/05/21 Blood Culture - Preliminary, Resulted 06/05/21 Blood Culture - Preliminary, Resulted DEAN KHAN M.D. Jun 08, 2021 06:27
[2021-06-08 20:50] VITALS: BP 98/43
[2021-06-08] MEDS: WARFARIN SOD 5MG TAB PO SCH (22:10)
[2021-06-08] MEDS: ATORVASTATIN 10 MG TAB PO SCH (22:11)
[2021-06-08] MEDS: CEFEPIME HCL 1 GM in D5W MINI-BAG PLUS 50 ML IV SCH (22:11)
[2021-06-09] MEDS: SLF 3 ML SYR IV SCH ×2 (05:04→15:05)
[2021-06-09] MEDS: LINEZOLID 600 MG in IV 1 EA IV SCH ×2 (05:04→16:16)
[2021-06-09] MEDS: LEVOTHYROXINE 75MCG TABLET (0.075MG) PO SCH (05:04)
[2021-06-09 06:38] VITALS: BP 120/55
[2021-06-09] MEDS: (RENVELA) SEVELAMER **CARBONate** 800 MG TAB PO SCH ×3 (07:54→17:59)
[2021-06-09] MEDS ORDERED: DARBEPOETIN 100 MCG/0.5 ML *DIALYSIS* SYRINGE (J0882) IV SCH (08:00)
[2021-06-09 08:01] LABS: HEMATOCRIT 28.5 % (36.0-47.0); HEMOGLOBIN 9.1 g/dl (12.0-15.5); MEAN CORPUSCULAR HEMOGLOBIN 33.2 pg (27.0-33.0); MEAN CORPUSCULAR HGB CONC 31.9 g/dl (32.0-36.5); PLATELET COUNT, AUTOMATED 156 10^3/uL (150-450); RED BLOOD COUNT 2.74 10^6/uL (4.00-5.40); WHITE BLOOD COUNT 6.2 10^3/uL (4.0-10.0)
[2021-06-09 08:37] LABS: CREATININE FOR GFR 4.73 MG/DL (0.55-1.30); GLOMERULAR FILTRATION RATE 9.6 (>39); MAGNESIUM LEVEL 1.8 MG/DL (1.8-2.4); PHOSPHORUS LEVEL 1.7 MG/DL (2.5-4.9); POTASSIUM SERUM 4.3 MEQ/L (3.5-5.1)
[2021-06-09] MEDS: GENTAMICIN SULF 80MG/2ML VIAL XX SCH (13:49)
[2021-06-09 14:00] VITALS: BP 119/54
--- NOTE | 2021-06-09 14:11 | IPNPDOC ---
Subjective Date Seen The patient was seen on 06/09/21. Subjective Chief Complaint/HPI Patient seen and examined at bedside this morning. She had no new complaints. She denies headaches, shortness of breath, chest pain, abdominal pain, nausea, vomiting, problems with urination and bowel movements. Psych: Denies: Mood Normal, Anxiety, Depression, Memory Issues, Thoughts of Self Harm, Anger, Thoughts of Harming Other, Other Psych Other systems 10 point review of system was negative except for what is noted in the HPI Objective Physical Examination Other physical findings General: Lying in bed, no acute distress Head/Neck/Throat: Trachea midline, mucous membranes moist Eyes: Sclera anicteric, no erythema or discharge appreciated bilaterally Thorax: Normal respiratory effort on room air, lungs clear to auscultation bilaterally, no wheezes/rales/rhonchi Cardiovascular: Normal rate, regular rhythm, normal S1, S2; no S3, S4, rubs/gallops/murmurs Abdomen: Bowel sounds present, soft/nontender/nondistended Genitourinary: No CVA tenderness, no Panchal in place Musculoskeletal: Moving all extremities, no edema Skin: Warm, dry, there is no erythema around colostomy site, ostomy appears to be healthy. No erythema, induration, fluctuance appreciated around catheter site. Neurologic: AAOx3, speech fluent and goal-directed, no focal deficits, grossly intact Assessment /Plan Plan/VTE VTE Prophylaxis Ordered?: Yes Plan #Sepsis -Bacteremic - Growing Staphylococcus epidermidis and Klebsiella oxytoca. Sensitive to cefepime and Zyvox respectively. We will repeat blood cultures on 06/09. We will need to touch base with infectious disease team to see if permacath needs to be pulled. -Gentamicin lock added by nephrology team (this is for the catheter only). #Electrolyte abnormality -Hypophosphatemia, will hold sevelamer. #Chron's disease -Status post colostomy. The ostomy site has healthy tissue around it without any erythema. She has acceptable output. #End-stage renal disease -We will continue with regular dialysis sessions. Nephrology is following. -? On warfarin to prevent permacath from clotting #Hypothyroidism -Continue levothyroxine. #Hx of TIA -Continue with aspirin and statin therapy #Multiple myeloma -She is undergoing active treatment with monoclonal antibodies for her multiple myeloma. Her case was discussed with Dr. Woodward. She was scheduled for treatment on 06/07 however she will not be able to make this and will resume treatment on 06/14. #DVT prophylaxis -On warfarin. VS, I&O, 24H, Fishbone Vital Signs/I&O Vital Signs Date Time Temp Pulse Resp B/P (MAP) Pulse Ox O2 Delivery O2 Flow Rate FiO2 06/09/21 06:38 98.4 65 18 120/55 (76) 98 Room Air I&O- Last 24 Hours up to 6 AM 06/09/21 06:00 Intake Total 1130 ml Output Total 450 ml Balance 680 ml Laboratory Data Microbiology Microbiology 06/06/21 Gastrointestinal Tract Panel (PCR) - Final, Complete 06/05/21 Respiratory Virus Panel (PCR) ([facility]) - Final, Complete 06/05/21 Blood Culture - Final, Complete Klebsiella Oxytoca Staphylococcus Epidermidis 06/05/21 Blood Culture - Final, Complete Klebsiella Oxytoca DEAN KHAN M.D. Jun 09, 2021 06:41
--- NOTE | 2021-06-09 20:05 | IPN ---
NEPHROLOGY PROGRESS NOTE DATE: 06/09/2021 SUBJECTIVE: The patient was seen and examined at the bedside today morning. She is afebrile, hemodynamically stable. She was dialyzed yesterday and she tolerated the hemodialysis procedure well. She denies any active complaints at this time. OBJECTIVE: VITAL SIGNS: Temperature is 98.1 degrees Fahrenheit, blood pressure 119/54, pulse is 63, respiratory rate of 16, saturating 98% on room air. INTAKE AND OUTPUT: Urine output is not recorded. Weight in the bed scale is not available. There was no ultrafiltration done with hemodialysis yesterday. PHYSICAL EXAMINATION: GENERAL APPEARANCE: The patient is awake, alert, oriented x3, laying in bed in no apparent distress. HEAD AND NECK: Extraocular muscles intact. Pupils are equally round and reactive to light. Mucous membranes are moist. Neck is supple. She has a right IJ tunneled hemodialysis catheter. CARDIOVASCULAR: S1, S2, regular rate. EXTREMITIES: No edema of the bilateral lower extremities. RESPIRATORY: Chest is clear to auscultation bilaterally. Bilaterally currently no rales or rhonchi. ABDOMEN: Soft, positive bowel sounds, nontender at this time. Ileostomy bag is noted. MUSCULOSKELETAL: No clubbing, no cyanosis. Pulses are 2+. TREE PLANTER: No focal deficits. Power is 5/5 in all extremities. LAB REVIEW: CBC showed a WBC of 6.2, hemoglobin 9.1, platelet count of 156. BMP showed sodium of 135, potassium 4.3, chloride 109, bicarbonate 17, BUN 19, creatinine 4.7. Calcium is 9, phosphorous 1.7, magnesium 1.8. CURRENT INPATIENT MEDICATIONS: The patient's medications were all reviewed by myself. She is on Renvela 2.4 grams three times daily and phosphorous levels are high. I have decreased the Renvela dose to 800 mg p.o. with meals. She continues to be on IV Zyvox and Cefepime. I have started the patient on Gentamicin lock in the dialysis catheter because the patient is growing Klebsiella, oxytoca and staph epidermitis in the blood cultures. ASSESSMENT AND PLAN: 1. End-stage renal disease - The patient was dialyzed yesterday according to her schedule. Next hemodialysis will be done on Friday. 2. Klebsiella and staph epi bacteremia - The patient is getting dual antibiotic therapy and as mentioned above, I have also started the patient with Gentamicin lock of the dialysis catheter. It is a lorri catheter because she is very vasculopathic and this catheter is used for chemotherapy as well. I would have a very high threshold to have this catheter removed and I will try my best to salvage this catheter. 3. Multiple myeloma - The patient gets chemotherapy as an outpatient. 4. Chronic kidney disease, mineral bone disease - The patient actually has a low phosphorous level and Renvela dose has been decreased by myself. 5. Anemia in end-stage renal disease and multiple myeloma - The patient's hemoglobin is dropping to 9.1 now. She has been started on Aranesp with hemodialysis.
[2021-06-09] MEDS: ATORVASTATIN 10 MG TAB PO SCH (20:52)
[2021-06-09] MEDS: WARFARIN SOD 5MG TAB PO SCH (20:53)
[2021-06-09] MEDS: ACETAMINOPHEN TAB 650MG DOSE (2X325MG) PO PRN (20:55)
[2021-06-09 22:00] VITALS: BP 118/56
[2021-06-10] MEDS: SLF 3 ML SYR IV SCH ×4 (01:16→22:03)
[2021-06-10] MEDS: CEFEPIME HCL 1 GM in D5W MINI-BAG PLUS 50 ML IV SCH ×2 (01:17→22:03)
[2021-06-10] MEDS: LINEZOLID 600 MG in IV 1 EA IV SCH ×2 (03:50→15:07)
[2021-06-10] MEDS: LEVOTHYROXINE 75MCG TABLET (0.075MG) PO SCH (05:14)
[2021-06-10 06:00] VITALS: BP 118/56
[2021-06-10 06:53] LABS: HEMATOCRIT 28.5 % (36.0-47.0); HEMOGLOBIN 9.2 g/dl (12.0-15.5); MEAN CORPUSCULAR HEMOGLOBIN 33.2 pg (27.0-33.0); MEAN CORPUSCULAR HGB CONC 32.3 g/dl (32.0-36.5); MEAN CORPUSCULAR VOLUME 102.9 fl (80.0-96.0); PLATELET COUNT, AUTOMATED 175 10^3/uL (150-450); RED BLOOD COUNT 2.77 10^6/uL (4.00-5.40); WHITE BLOOD COUNT 5.6 10^3/uL (4.0-10.0)
[2021-06-10 07:26] LABS: CALCIUM LEVEL 8.5 MG/DL (8.8-10.2); CREATININE FOR GFR 5.97 MG/DL (0.55-1.30); GLOMERULAR FILTRATION RATE 7.4 (>39); MAGNESIUM LEVEL 1.7 MG/DL (1.8-2.4); PHOSPHORUS LEVEL 2.3 MG/DL (2.5-4.9); POTASSIUM SERUM 4.6 MEQ/L (3.5-5.1)
[2021-06-10] MEDS: (RENVELA) SEVELAMER **CARBONate** 800 MG TAB PO SCH ×3 (07:44→17:14)
[2021-06-10 14:00] VITALS: BP 154/65
--- NOTE | 2021-06-10 14:48 | IPNPDOC ---
Subjective Date Seen The patient was seen on 06/10/21. Subjective Chief Complaint/HPI Patient seen and examined at bedside this morning. She has no new complaints and reported feeling well. She asked what her repeat blood culture showed, but she was explained that this will take couple to few days to result if there is something growing. She denies fever, chills, tremors, headache, chest pain, shortness of breath, abdominal pain, nausea, vomiting, problems with bowel movements. Other systems 10 point review of system was negative except for what is noted in the HPI Objective Physical Examination Other physical findings #Sepsis -Bacteremic - Growing Staphylococcus epidermidis and Klebsiella oxytoca. Sensitive to cefepime and Zyvox respectively. We will repeat blood cultures on 06/09. We will need to touch base with infectious disease team to see if permacath needs to be pulled if cultures continue to be remain positive. -Gentamicin lock flush added by nephrology team (this is for the catheter only). #Electrolyte abnormality -Hypophosphatemia, will hold sevelamer. #Chron's disease -Status post colostomy. The ostomy site has healthy tissue around it without any erythema. She has acceptable output. #End-stage renal disease -We will continue with regular dialysis sessions. Nephrology is following. -? On warfarin to prevent permacath from clotting #Hypothyroidism -Continue levothyroxine. #Hx of TIA -Continue with aspirin and statin therapy #Multiple myeloma -She is undergoing active treatment with monoclonal antibodies for her multiple myeloma. Her case was discussed with Dr. Woodward. She was scheduled for treatment on 06/07 however she will not be able to make this and will resume treatment on 06/14. #DVT prophylaxis -On warfarin. Assessment /Plan Plan/VTE VTE Prophylaxis Ordered?: Yes VS, I&O, 24H, Fishbone Vital Signs/I&O Vital Signs Date Time Temp Pulse Resp B/P (MAP) Pulse Ox O2 Delivery O2 Flow Rate FiO2 06/10/21 06:00 97.9 58 16 118/56 (76) 98 Room Air I&O- Last 24 Hours up to 6 AM 06/10/21 06:00 Intake Total 890 ml Output Total 150 ml Balance 740 ml Laboratory Data 24H LABS Laboratory Tests 2 06/09/21 07:35: Nucleated Red Blood Cells % (auto) 0.0, Anion Gap 9, Glomerular Filtration Rate 9.6L, Calcium Level 9.0, Phosphorus Level 1.7#L, Magnesium Level 1.8 CBC/BMP Laboratory Tests 06/09/21 07:35 Microbiology Microbiology 06/09/21 Blood Culture, Received Pending 06/09/21 Blood Culture, Received Pending 06/06/21 Gastrointestinal Tract Panel (PCR) - Final, Complete 06/05/21 Respiratory Virus Panel (PCR) ([facility]) - Final, Complete 06/05/21 Blood Culture - Final, Complete Klebsiella Oxytoca Staphylococcus Epidermidis 06/05/21 Blood Culture - Final, Complete Klebsiella Oxytoca DEAN KHAN M.D. Jun 10, 2021 06:33
--- NOTE | 2021-06-10 20:36 | IPN ---
PROGRESS NOTE DATE: 06/10/2021 SUBJECTIVE: Patient was seen and examined at the bedside today morning. She is afebrile and hemodynamically stable. She denies any active complaints at this time. She continues to be on I.V. antibiotics. She denies any fevers or chills at this time. Tomorrow is patient's regular day of dialysis. OBJECTIVE: VITAL SIGNS: Temperature 97.8 degrees Fahrenheit, blood pressure 154/65, pulse 82, respiratory rate 16, saturating 99% on room air. INTAKE/OUTPUT: There is no urine output recorded. Stool output is 350 mL through the ileotomy. Weight in the bed scale is not available. PHYSICAL EXAMINATION: GENERAL: Patient is awake, alert, oriented x3, lying in bed in no apparent distress. HEAD/NECK: Extraocular muscles intact. Pupils equally round and reactive to light. Mucous membranes are moist. Neck is supple. There is no JVD. She has a right IJ tunneled hemodialysis catheter. CVS: S1, S2, regular rate. No edema of the bilateral lower extremities. RESPIRATORY: Chest to clear to auscultation bilaterally. Bilateral equal air entry. No rales or rhonchi. ABDOMEN: Soft, positive bowel sounds, nontender. No organomegaly. Ileostomy is noted in the lower abdomen. MUSCULOSKELETAL: No clubbing or cyanosis. Pulses are 2+. CHOREOGRAPHY DIRECTOR: No focal deficit. Power is 5/5 in all extremities. LABORATORY REVIEW: CBC showed WBC 5.6, hemoglobin 9.2, platelets 175,000. BMP shows sodium 135, potassium 4.6, chloride 108, bicarb 20, BUN 31, creatinine 5.9. Magnesium 1.7. MICROBIOLOGY: Repeat blood cultures from June 09 are negative so far. CURRENT INPATIENT MEDICATIONS: Patient's medications were all reviewed by myself. She continues to be on Zyvox and Cefepime. No other significant change in the medications today. ASSESSMENT AND PLAN: 1. End-stage renal disease: Patient's regular dialysis day is tomorrow. Dialysis orders have been placed. No fluid is removed because of ileostomy status. 2. Klebsiella and Staph Epi bacteremia: Patient is on I.V. antibiotics. She is also getting gentamicin lock of dialysis catheter and it will be done again tomorrow after dialysis. 3. Chronic kidney disease/mineral bone disease: She continues to be on one tablet of Renvela three times a day with meals. If phosphorus levels stay low, then Renvela will be stopped. 4. Multiple myeloma: Patient gets chemotherapy as an outpatient. 5. Anemia and end-stage renal disease: She will be given Aranesp with dialysis tomorrow.
[2021-06-10 22:00] VITALS: BP 115/52
[2021-06-10] MEDS: WARFARIN SOD 5MG TAB PO SCH (22:03)
[2021-06-10] MEDS: ATORVASTATIN 10 MG TAB PO SCH (22:03)
[2021-06-11] MEDS: LINEZOLID 600 MG in IV 1 EA IV SCH (04:27)
[2021-06-11] MEDS: LEVOTHYROXINE 75MCG TABLET (0.075MG) PO SCH (05:55)
[2021-06-11] MEDS: SLF 3 ML SYR IV SCH ×3 (06:42→22:49)
[2021-06-11] MEDS: (RENVELA) SEVELAMER **CARBONate** 800 MG TAB PO SCH ×3 (06:45→17:08)
[2021-06-11 07:11] LABS: HEMATOCRIT 27.7 % (36.0-47.0); HEMOGLOBIN 8.9 g/dl (12.0-15.5); MEAN CORPUSCULAR HEMOGLOBIN 33.1 pg (27.0-33.0); MEAN CORPUSCULAR HGB CONC 32.1 g/dl (32.0-36.5); PLATELET COUNT, AUTOMATED 170 10^3/uL (150-450); RED BLOOD COUNT 2.69 10^6/uL (4.00-5.40); WHITE BLOOD COUNT 5.6 10^3/uL (4.0-10.0)
[2021-06-11 07:40] LABS: CALCIUM LEVEL 8.5 MG/DL (8.8-10.2); CREATININE FOR GFR 7.14 MG/DL (0.55-1.30); MAGNESIUM LEVEL 1.8 MG/DL (1.8-2.4); PHOSPHORUS LEVEL 2.9 MG/DL (2.5-4.9)
[2021-06-11 10:16] LABS: FOLATE 6.3 NG/ML (>5.4)
--- NOTE | 2021-06-11 11:37 | IPN ---
PROGRESS NOTE DATE: 06/11/2021 SUBJECTIVE: Patient was seen and examined at the bedside today morning. She is afebrile, hemodynamically stable. Today is her regular day of dialysis. She denies any active complaints. OBJECTIVE: VITAL SIGNS: Temperature is 98.2 degrees Fahrenheit, blood pressure is 115/52, pulse is 68, respiratory rate is 14, saturating 97% on room air. INTAKE AND OUTPUT: There is no urine output recorded. Stool output in the ileostomy is 550 ml, weight on the bed scale is not available. GENERAL: Patient is awake, alert and oriented laying in bed in no apparent distress. HEAD AND NECK: Extraocular muscles intact. Pupils equally round and reactive to light. Mucous membranes are moist. NECK: Supple. There is no JVD. Right IJ tunneled hemodialysis catheter is noted. CARDIOVASCULAR: S1 and S2 regular rate. No edema of the bilateral lower extremities. RESPIRATORY: Chest is clear to auscultation bilaterally. Bilateral equal air entry. No rales or rhonchi. ABDOMEN: Soft, ileostomy bag is noted. MUSCULOSKELETAL: No clubbing or cyanosis. Pulses are 2+. ANATOMIC PATHOLOGY MANAGER: No focal deficit. Power is 5/5 in all extremities. LABORATORY DATA: CBC showed a WBC of 5.6, hemoglobin of 8.9, platelets of 170,000. BMP showed a sodium of 136, potassium 5, chloride 108, bicarbonate 18, BUN 41, creatinine is 7.1. Calcium is 8.5. Phosphorus is 2.9. Magnesium is 1.8. CURRENT INPATIENT MEDICATIONS: Patient's medications are all reviewed by myself. There is no significant change in the medications today as compared with yesterday. ASSESSMENT AND PLAN: 1. Endstage renal disease, patient will be dialyzed today, no fluid will be removed because he has a high output from the ileostomy. No significant edema is noted. 2. Anemia and endstage renal disease. Patient is getting Aranesp with dialysis. Hemoglobin level is suboptimal but stable. 3. Klebsiella and Staph Epi bacteremia. Patient is on IV antibiotics. She is also getting Gentamicin lock of dialysis catheter. 4. Chronic kidney disease, mineral bone disease, Renvela dose is 800 mg p.o. three times a day. Phosphorus level has improved to within normal range now. 5. Multiple myeloma in relapse. Patient is getting chemotherapy as an outpatient and right IJ tunneled hemodialysis catheter is used for chemo as well.
[2021-06-11] MEDS: ACETAMINOPHEN TAB 650MG DOSE (2X325MG) PO PRN ×2 (11:50→20:55)
--- NOTE | 2021-06-11 11:56 | IPNPDOC ---
Subjective Date Seen The patient was seen on 06/11/21. Subjective Chief Complaint/HPI Patient seen and examined at bedside this morning. She has no new complaints. She denies headaches, chest pain, sob, abdominal pain, nausea, vomiting, and problems with urination. Objective Physical Examination Other physical findings General: Lying in bed, no acute distress Head/Neck/Throat: Trachea midline, mucous membranes moist Eyes: Sclera anicteric, no erythema or discharge appreciated bilaterally Thorax: Normal respiratory effort on room air, lungs clear to auscultation bilaterally, no wheezes/rales/rhonchi Cardiovascular: Normal rate, regular rhythm, normal S1, S2; no S3, S4, rubs/g allops/murmurs Abdomen: Bowel sounds present, soft/nontender/nondistended Genitourinary: No CVA tenderness, no Panchal in place Musculoskeletal: Moving all extremities, no edema Skin: Warm, dry, there is no erythema around colostomy site, ostomy appears to be healthy. No erythema, induration, fluctuance appreciated around catheter site. Neurologic: AAOx3, speech fluent and goal-directed, no focal deficits, grossly intact Assessment /Plan Plan/VTE VTE Prophylaxis Ordered?: Yes Plan #Sepsis -Bacteremic blood cultures grew Staphylococcus epidermidis and Klebsiella oxytoca. De-escalate cefepime to ceftriaxone based on sensitivities; stop dates to antibiotics for total of 7 days. Clinically she has significant improvement -she is afebrile without a white count. Repeat blood cultures negative thus far. Likely will not have to pull permacath. We will continue with gentamicin flush lock. #Electrolyte abnormality -Hypophosphatemia -held sevelamer. This has resolved. #Chron's disease -Status post colostomy. The ostomy site has healthy tissue around it without any erythema. She has acceptable output. #End-stage renal disease -We will continue with regular dialysis sessions. Nephrology is following. -? On warfarin to prevent permacath from clotting #Hypothyroidism -Continue levothyroxine. #Hx of TIA -Continue with aspirin and statin therapy #Multiple myeloma -She is undergoing active treatment with monoclonal antibodies for her multiple myeloma. Her case was discussed with Dr. Woodward. She was scheduled for treatment on 06/07 however she will not be able to make this and will resume treatment on 06/14. #DVT prophylaxis -On warfarin. Dispo: If repeat blood cx negative for 2-3 days can likely be discharged. VS, I&O, 24H, Fishbone Vital Signs/I&O Vital Signs Date Time Temp Pulse Resp B/P (MAP) Pulse Ox O2 Delivery O2 Flow Rate FiO2 06/10/21 22:00 98.2 68 14 115/52 (73) 97 Room Air I&O- Last 24 Hours up to 6 AM 06/11/21 05:59 Intake Total 870 ml Output Total 550 ml Balance 320 ml Laboratory Data 24H LABS Laboratory Tests 2 06/10/21 06:22: Nucleated Red Blood Cells % (auto) 0.0, Anion Gap 7L, Glomerular Filtration Rate 7.4L, Calcium Level 8.5L, Phosphorus Level 2.3#L, Magnesium Level 1.7L CBC/BMP Laboratory Tests 06/10/21 06:22 Microbiology Microbiology 06/09/21 Blood Culture - Preliminary, Resulted No growth after 24 hours . All specim... 06/09/21 Blood Culture - Preliminary, Resulted No growth after 24 hours . All specim... 06/06/21 Gastrointestinal Tract Panel (PCR) - Final, Complete 06/05/21 Respiratory Virus Panel (PCR) ([facility]) - Final, Complete 06/05/21 Blood Culture - Final, Complete Klebsiella Oxytoca Staphylococcus Epidermidis 06/05/21 Blood Culture - Final, Complete Klebsiella Oxytoca DEAN KHAN M.D. Jun 11, 2021 06:20
[2021-06-11] MEDS: GENTAMICIN SULF 80MG/2ML VIAL XX SCH (12:04)
[2021-06-11 13:41] VITALS: BP 114/52
[2021-06-11] MEDS: ONDANSETRON 4MG/2ML VIAL IV PRN (16:31)
[2021-06-11] MEDS: ATORVASTATIN 10 MG TAB PO SCH (20:55)
[2021-06-11] MEDS: WARFARIN SOD 5MG TAB PO SCH (20:55)
[2021-06-11] MEDS: LINEZOLID 600MG TABLET (ZYVOX) PO SCH (21:09)
[2021-06-11 22:00] VITALS: BP 119/60
[2021-06-11] MEDS ORDERED: cefTRIAXone SOD 1 GM in D5W MINI-BAG PLUS 50 ML IV SCH (23:00)
[2021-06-12 06:00] VITALS: BP 118/48
[2021-06-12 06:12] LABS: HEMATOCRIT 28.7 % (36.0-47.0); HEMOGLOBIN 9.4 g/dl (12.0-15.5); MEAN CORPUSCULAR HEMOGLOBIN 33.6 pg (27.0-33.0); MEAN CORPUSCULAR HGB CONC 32.8 g/dl (32.0-36.5); MEAN CORPUSCULAR VOLUME 102.5 fl (80.0-96.0); PLATELET COUNT, AUTOMATED 174 10^3/uL (150-450); WHITE BLOOD COUNT 5.2 10^3/uL (4.0-10.0)
[2021-06-12] MEDS: LEVOTHYROXINE 75MCG TABLET (0.075MG) PO SCH (06:16)
[2021-06-12] MEDS: SLF 3 ML SYR IV SCH (06:18)
[2021-06-12 06:42] LABS: CALCIUM LEVEL 8.3 MG/DL (8.8-10.2); CREATININE FOR GFR 4.67 MG/DL (0.55-1.30); GLOMERULAR FILTRATION RATE 9.8 (>39); MAGNESIUM LEVEL 1.9 MG/DL (1.8-2.4); POTASSIUM SERUM 4.4 MEQ/L (3.5-5.1)
[2021-06-12] MEDS: (RENVELA) SEVELAMER **CARBONate** 800 MG TAB PO SCH (08:27)
[2021-06-12] MEDS: LINEZOLID 600MG TABLET (ZYVOX) PO SCH (08:27)
[2021-06-12] MEDS ORDERED: LINE1TAB6 PO ×2 (09:58→12:45)
[2021-06-12] MEDS ORDERED: CEFD300CAP PO (09:58)
[2021-06-12 10:55] LABS: INR 1.58; PROTHROMBIN TIME 19.3 SECONDS (12.7-14.5)
[2021-06-12] MEDS ORDERED: CEFDINIR 300 MG CAP (OMNICEF) PO ONE (11:00)
--- NOTE | 2021-06-12 11:35 | IPN ---
NEPHROLOGY PROGRESS NOTE DATE: 06/12/2021 SUBJECTIVE: The patient was seen and examined at the bedside today morning. The patient is afebrile, hemodynamically stable. She was dialyzed yesterday. She tolerated the hemodialysis procedure well. The latest blood cultures are all negative now. The patient feels like she is ready to go home today. OBJECTIVE: VITAL SIGNS: Temperature is 98.8 degrees Fahrenheit, blood pressure 119/48, pulse is 65, respiratory rate of 18, saturating 97% on room air. INTAKE AND OUTPUT: There is no urine output recorded. Weight in the bed scale is not available. She was dialyzed yesterday. No fluid was removed. PHYSICAL EXAMINATION: GENERAL APPEARANCE: The patient is awake, alert, oriented x3, sitting up in the sofa in no apparent distress. HEAD AND NECK: Extraocular muscles intact. Pupils are equally round and reactive to light. Mucous membranes are moist. Neck is supple. There is no jugular venous distention. CARDIOVASCULAR: S1, S2, regular rate. EXTREMITIES: No edema of the bilateral lower extremities. RESPIRATORY: Chest is clear to auscultation bilaterally. Bilaterally currently no rales or rhonchi. ABDOMEN: Soft, positive bowel sounds. Ileostomy bag is noted. MUSCULOSKELETAL: No clubbing, no cyanosis. Pulses are 2+. 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 Power is 5/5 in all extremities. Dialysis access the patient has a right IJ tunneled hemodialysis catheter. LAB REVIEW: CBC showed a WBC of 5.2, hemoglobin 9.4, platelet count 174. BMP showed sodium 137, potassium 4.4, chloride 103, bicarbonate 28, BUN 23, creatinine is 4.6. Microbiology repeat blood cultures from June 09 are negative are negative so far. CURRENT INPATIENT MEDICATIONS: The patient's medications were all reviewed by myself. IV Cefepime and Linezolid have been stopped. She has been started on oral Omnicef. She continues to be on Gentamicin lock of the dialysis catheter, and she is currently on oral Zyvox. ASSESSMENT AND PLAN: 1. End-stage renal disease - The patient was dialyzed yesterday. Next hemodialysis session will be tomorrow. She does not get any fluid removed because of ileostomy status. 2. Klebsiella and staph epi bacteremia and infected dialysis catheter - The patient is getting oral Omnicef and Linezolid now. She is getting Gentamicin lock of dialysis catheter. 3. Anemia in end-stage renal disease - The patient is getting Aranesp with hemodialysis. 4. Chronic kidney disease, mineral bone disease Her Renvela dose was decreased because of low phosphorous levels. Phosphorous is within the acceptable range now. 5. Multiple myeloma in her labs - The patient gets chemotherapy as an outpatient and a right IJ tunneled hemodialysis catheter is used for chemotherapy. 6. Disposition - The patient is optimized from a nephrology standpoint to be discharged home. I called the Dialysis Center and let them know to Gentamicin lock her catheter for the next 2 weeks.
--- NOTE | 2021-06-12 13:57 | DS.PDOC ---
Discharge Summary General Date of Admission Jun 05, 2021 at 21:48 Date of Discharge 06/12/2021 Discharge Summary PROCEDURES PERFORMED DURING STAY: [None]. ADMITTING DIAGNOSES / DISCHARGE DIAGNOSES: Bacteremia - likely 2/2 PermCath Klebsiella oxytoca Staphylococcus epidermis s/p Electrolyte abnormality Chron's disease ESRD on HD Hypothyroidism Hx of TIA Multiple myeloma DVT prophylaxis COMPLICATIONS/CHIEF COMPLAINT: Chills HISTORY OF PRESENT ILLNESS: Patient is a 75-year-old female with a PMHx of ESRD on HD, MM on Chemotherapy, TIA, Crohn's, Hx of multiple clots (on Coumadin), presented to the emergency room with complaints of chills. Patient was found to be bacteremic, which was suspected to be from her PermCath. Patient was given IV antibiotics and then transitioned oral antibiotics. Will continue with gentamicin via the PermCath. Patient was seen and examined at the bedside. Currently, she denies any nausea, vomiting, chest pain, shortness breath, palpitations, abdominal pain, diarrhea, or urinary discomfort. HOSPITAL COURSE: Bacteremia - likely 2/2 PermCath - Clinically patient has had improvement of her symptoms - She remains afebrile and hemodynamically stable - No leukocytosis has resolved / No lactic acidosis - Blood cultures: Klebsiella oxytoca 2 of 2 bottles; however 1 culture revealed evidence of Staphylococcus epidermidis - After discussion with nephrology. There is a very high threshold to replace PermCath as patient is a vasculopath and has developed several clots in the past - At this time, will continue with oral antibiotics for a total of 2 weeks duration and will continue with gentamicin Hep-Lock into the catheter - Will have outpatient follow-up with primary care provider, nephrology and infectious disease Klebsiella oxytoca - Will continue antibiotic therapy for 2 weeks Staphylococcus epidermis - This is likely a contaminant; both cultures were apparently drawn at the same time; repeat cultures have been negative - Will have outpatient follow-up with ID s/p Electrolyte abnormality Chron's disease - s/p colostomy ESRD on HD - Continue dialysis as scheduled - Nephrology on consultation Hypothyroidism - c/w levothyroxine Hx of TIA - c/w aspirin and statin therapy Multiple myeloma - Currently on chemotherapy - Will have outpatient follow up with Dr. Woodward DVT prophylaxis - c/w Warfarin DISCHARGE MEDICATIONS: Please see below. ALLERGIES: Please see below. PHYSICAL EXAMINATION ON DISCHARGE: Vitals (See below) General: Lying in bed, appears comfortable, AAOx3 HEENT: NC, AT CVS: +S1S2 Lungs: Fair air entry b/l, -w/r/r Abdomen: Soft, ND, NT, +Ostomy Extremities: - Edema, - Calf tenderness LABORATORY DATA: Please see below. IMAGING: CXR 06/05: Stable chest since 04/24/2021. No acute interval process is identified. CT abdomen / pelvis 06/06: 1. There has been little change from 07/31/2020. No acute interval process is identified. 2. Moderate bilateral renal atrophy. 3. Status post colectomy with right abdominal ileostomy. Surgical clips are noted about the abdomen and pelvis which are similar. ACTIVITY: [As tolerated]. DISCHARGE PLAN: Follow-up with primary care provider, nephrology and ID within the next 7 days Remain compliant with treatment plan and medications Return to the ER if you experience any problems DISPOSITION: Home Health Service. DISCHARGE CONDITION: [Stable]. TIME SPENT ON DISCHARGE: 35 minutes. Vital Signs/I&Os Vital Signs Date Time Temp Pulse Resp B/P (MAP) Pulse Ox O2 Delivery O2 Flow Rate FiO2 06/12/21 06:00 98.8 65 19 118/48 (71) 97 Room Air I&O- Last 24 Hours up to 6 AM 06/12/21 06:00 Intake Total 750 ml Output Total 0 ml Balance 750 ml Laboratory Data Labs 24H Laboratory Tests 2 06/12/21 05:42: Nucleated Red Blood Cells % (auto) 0.0, Anion Gap 6L, Glomerular Filtration Rate 9.8L, Calcium Level 8.3L, Phosphorus Level 3.0, Magnesium Level 1.9 06/12/21 10:32: Prothrombin Time 19.3H, Prothromb Time International Ratio 1.58 CBC/BMP Laboratory Tests 06/12/21 05:42 Microbiology Microbiology 06/09/21 Blood Culture - Preliminary, Resulted No Growth after 48 hours. All Specime... 06/09/21 Blood Culture - Preliminary, Resulted No Growth after 48 hours. All Specime... 06/06/21 Gastrointestinal Tract Panel (PCR) - Final, Complete 06/05/21 Respiratory Virus Panel (PCR) ([facility]) - Final, Complete 06/05/21 Blood Culture - Final, Complete Klebsiella Oxytoca Staphylococcus Epidermidis 06/05/21 Blood Culture - Final, Complete Klebsiella Oxytoca Discharge Medications Scheduled Atorvastatin Calcium (Atorvastatin Calcium) 10 Mg Tablet, 10 MG PO QHS, (Reported) Cefdinir (Cefdinir) 300 Mg Capsule, 1 CAP PO BID Cholecalciferol (Vitamin D3) (D3-2000) 50 Mcg Capsule, 2,000 UNITS PO DAILY, (Reported) Cyclosporine (Restasis) 0.05% Droperette, 1 DROP OU BID, (Reported) Dexamethasone (Dexamethasone) 4 Mg Tablet, 4 MG PO ASDIRECTED TAKE BEFORE CHEMO ON THE Friday OF EACH MONTH Fluticasone Propion/Salmeterol (Advair Hfa 230-21 Mcg Inhaler) 12 Gm Hfa.aer.ad, 2 PUFF INH BID, (Reported) Levothyroxine Sodium (Levothyroxine Sodium) 75 Mcg Tablet, 75 MCG PO DAILY, (Reported) Linezolid (Linezolid) 600 Mg Tablet, 600 MG PO BID 10 days [place]-3 Fatty Acids/Fish Oil (Fish Oil 1,000 mg Capsule) 1 Each Capsule, 1,000 MG PO DAILY, (Reported) Sevelamer Carbonate (Renvela) 800 Mg Tablet, 2,400 MG PO WM, (Reported) Sevelamer Carbonate (Renvela) 800 Mg Tablet, 800 MG PO ASDIRECTED, (Reported) WITH SNACKS Warfarin Sodium (Warfarin Sodium) 5 Mg Tablet, 5 MG PO 4XWK, (Reported) FRIDAY/FRIDAY/FRIDAY/FRIDAY AT [facility] Warfarin Sodium (Warfarin Sodium) 5 Mg Tablet, 2.5 MG PO 2XW, (Reported) FRIDAY AND FRIDAY AT [facility] Scheduled PRN Acetaminophen (Acetaminophen) 325 Mg Tablet, 650 MG PO Q6H PRN for PAIN LEVEL 1- 5, (Reported) Albuterol Sulfate (Proair Hfa) 8.5 Gm Hfa.aer.ad, 2 PUFF INH Q4H PRN for SHORTNESS OF BREATH, (Reported) Allergies Coded Allergies: vancomycin (Verified Allergy, Intermediate, RASH/ITCHING, 01/24/20) KINDRA PALACIO MD Jun 12, 2021 13:57
[2021-06-13] MEDS ORDERED: CEFDINIR 300 MG CAP (OMNICEF) PO SCH (16:00)
== END 2021-06-12 13:00 | disposition home health service (06) | DRG 314 ==
LOC: M ED 21:47 → M ED INP 21:48 → M PCU 06-06 05:25 → M MS5PR 06-07 18:48
PROVIDERS: ADMIT Family Medicine; ATTEND Internal Medicine
PROC: 5A1D70Z Performance of Urinary Filtration, Intermittent, Less than 6 Hours Per Day (ICD-10-PCS; principal; 2021-06-06)
DX: T82.7XXA Infection and inflammatory reaction due to other cardiac and vascular devices, implants and grafts, initial encounter (principal); N18.6 End stage renal disease; C90.00 Multiple myeloma not having achieved remission; N25.81 Secondary hyperparathyroidism of renal origin; Z94.84 Stem cells transplant status; K50.90 Crohn's disease, unspecified, without complications; R78.81 Bacteremia; D63.0 Anemia in neoplastic disease; B95.8 Unspecified staphylococcus as the cause of diseases classified elsewhere; G62.9 Polyneuropathy, unspecified; D63.1 Anemia in chronic kidney disease; B96.1 Klebsiella pneumoniae [K. pneumoniae] as the cause of diseases classified elsewhere; E03.9 Hypothyroidism, unspecified; Z66 Do not resuscitate; Z85.820 Personal history of malignant melanoma of skin; Z85.828 Personal history of other malignant neoplasm of skin; Z99.2 Dependence on renal dialysis; Z93.3 Colostomy status; Z90.49 Acquired absence of other specified parts of digestive tract; Z86.73 Personal history of transient ischemic attack (TIA), and cerebral infarction without residual deficits; Z79.01 Long term (current) use of anticoagulants; Z79.899 Other long term (current) drug therapy

== ENCOUNTER 2021-06-25 00:17 | Inpatient (IN) | payer MEDICARE, OTHER ==
[~2021-06-25] VITALS: Ht 162.6 cm; Wt 47.1 kg
[~2021-06-25 00:17] MED LIST changes: +CEFD300CAP PO; +LINE1TAB6 PO
[2021-06-25] MEDS ORDERED: SEVE800T3 PO (01:07)
[2021-06-25] MEDS ORDERED: WARF4TAB51 PO (01:07)
[2021-06-25] MEDS ORDERED: NS 500 ML IV ONE ×2 (01:15→04:15)
[2021-06-25] MEDS ORDERED: ONDANSETRON 4MG/2ML VIAL IV ONE (01:15)
[2021-06-25] MEDS ORDERED: HOME MED LIST COMPLETE! XX SCH (01:40)
--- NOTE | 2021-06-25 01:59 | REPVR ---
PROCEDURE INFORMATION: Exam: XR Chest Exam date and time: 06/25/2021 1:43 AM Age: 75 years old Clinical indication: Other: Upper abdominal pain TECHNIQUE: Imaging protocol: XR of the chest. Views: 1 view. COMPARISON: CR PORTABLE CHEST X-RAY 06/05/2021 11:14 PM FINDINGS: Tubes, catheters and devices: Right internal jugular dialysis catheter is unchanged. Lungs: Pulmonary hyperinflation with increased lucency of lung which is similar. There are no interval infiltrates. Pleural spaces: Unremarkable. No pleural effusion. No pneumothorax. Heart/Mediastinum: The heart and mediastinum are unchanged. Vasculature: Vascular stent in the left arm. Bones/joints: Chronic rotator cuff tears of the shoulders bilaterally. Soft tissues: Status post right axillary sydni dissection. IMPRESSION: Stable chest since 06/05/2021 with evidence of COPD. No acute interval process is identified. Electronically signed by: Michael Garcia On 06/25/2021 01:58:37 AM
[2021-06-25 02:20] LABS: BASO % 0.2 % (0.0-1.0); EOS # 0.1 10^3/uL (0.0-0.5); HEMATOCRIT 32.1 % (36.0-47.0); HEMOGLOBIN 11.2 g/dl (12.0-15.5); LYMPH # 1.4 10^3/uL (1.5-5.0); LYMPH % 17.1 % (24.0-44.0); MEAN CORPUSCULAR HEMOGLOBIN 33.9 pg (27.0-33.0); MEAN CORPUSCULAR HGB CONC 34.9 g/dl (32.0-36.5); MEAN CORPUSCULAR VOLUME 97.3 fl (80.0-96.0); MONO # 0.6 10^3/uL (0.0-0.8); MONO % 7.1 % (2.0-8.0); NEUTROPHILS # 6.2 10^3/uL (1.5-8.5); NEUTROPHILS % 74.2 % (36.0-66.0); PLATELET COUNT, AUTOMATED 183 10^3/uL (150-450); WHITE BLOOD COUNT 8.4 10^3/uL (4.0-10.0)
[2021-06-25 03:03] LABS: ALBUMIN 3.4 GM/DL (3.2-5.2); ALT/SGPT 25 U/L (12-78); BILIRUBIN,DIRECT 0.2 MG/DL (0.0-0.2); BILIRUBIN,TOTAL 0.7 MG/DL (0.2-1.0); BLOOD UREA NITROGEN 60 MG/DL (7-18); CALCIUM LEVEL 8.6 MG/DL (8.8-10.2); CARBON DIOXIDE LEVEL 26 MEQ/L (21-32); CHLORIDE LEVEL 97 MEQ/L (98-107); CK-MB VALUE MASS < 1.0 NG/ML (<3.6); CPK CREATINE PHOSPHOKINASE 32 U/L (26-192); CREATININE FOR GFR 9.67 MG/DL (0.55-1.30); GLOMERULAR FILTRATION RATE 4.2 (>39); GLUCOSE, FASTING 109 MG/DL (70-100); LIPASE 393 U/L (73-393); MB/CK RELATIVE INDEX 3.12 (< OR =4); POTASSIUM SERUM 4.1 MEQ/L (3.5-5.1); SODIUM LEVEL 135 MEQ/L (136-145); TOTAL PROTEIN 6.4 GM/DL (6.4-8.2); TROPONIN I < 0.02 NG/ML (< 0.10)
[2021-06-25 03:04] LABS: INR 3.47; PROTHROMBIN TIME 35.1 SECONDS (12.7-14.5)
[2021-06-25 03:05] LABS: PARTIAL THROMBOPLASTIN TIME 41.8 SECONDS (25.9-37.0)
[2021-06-25 03:10] LABS: CLOSTRIDIUM DIFFICILE PCR NEGATIVE (NEGATIVE)
[2021-06-25 03:28] LABS: RSV AMPLIFICATION NEGATIVE (NEGATIVE)
--- NOTE | 2021-06-25 04:42 | REPVR ---
PROCEDURE INFORMATION: Exam: CT Abdomen And Pelvis Without Contrast Exam date and time: 06/25/2021 4:16 AM Age: 75 years old Clinical indication: Other: Upper abd pain, h/o pancreatitis, increased ostomy output, TECHNIQUE: Imaging protocol: Computed tomography of the abdomen and pelvis without contrast. Radiation optimization: All CT scans at this facility use at least one of these dose optimization techniques: automated exposure control; mA and/or kV adjustment per patient size (includes targeted exams where dose is matched to clinical indication); or iterative reconstruction. COMPARISON: CT ABD PELVIS W/O CONTRAST 06/06/2021 2:54 AM FINDINGS: Lungs: Minimal bibasilar interstitial coarsening. Liver: Normal. No mass. Gallbladder and bile ducts: Normal. No calcified stones. No ductal dilation. Pancreas: Normal. No ductal dilation. Spleen: Minimal splenic calcification. Adrenal glands: Normal. No mass. Kidneys and ureters: Bilateral renal atrophy with multiple bilateral cysts measuring up to 2.9 cm on the left which are redemonstrated and similar to the prior study. Stomach and bowel: Borderline distention of the stomach with fluid and gas. Status post colectomy with right lower quadrant ileostomy. Appendix: No evidence of appendicitis. Intraperitoneal space: Scattered metallic densities are noted about the abdomen and pelvis and presacral region which may reflect surgical clips. No free air. No significant fluid collection. Vasculature: There is mild calcification of the abdominal aorta with extension into the iliac arteries. Lymph nodes: Unremarkable. No enlarged lymph nodes. Urinary bladder: Unremarkable as visualized. Reproductive: Status post hysterectomy. Bones/joints: Wedge configuration of T11-L1 with prior vertebroplasty. Soft tissues: Subcutaneous venous varicosities are noted in the anterior abdominal wall which appear to originate from the left inguinal region suggesting stenosis or occlusion of venous outflow from at least the left lower extremity. IMPRESSION: 1. There is borderline gastric distention with fluid and gas which may reflect recent ingestion. Gastric atony or relative outlet obstruction are not excluded. 2. Status post colectomy with multiple scattered surgical clips. There is a right lower quadrant ileostomy. 3. Subcutaneous venous varicosities which extend from the left inguinal region suggesting stenosis or occlusion of venous outflow from at least the left lower extremity. 4. Status post hysterectomy. 5. There has been little change from 06/06/2021. No acute interval process is identified. Electronically signed by: Michael Garcia On 06/25/2021 04:42:16 AM
[2021-06-25] MEDS ORDERED: ACETAMINOPHEN TAB 650MG DOSE (2X325MG) PO PRN (05:20)
[2021-06-25] MEDS ORDERED: HEPARIN SOD (PORCINE) 5000UNITS/ML 1ML VIAL/SYRINGE SC SCH (05:20)
[2021-06-25] MEDS ORDERED: MOM 30ML SUSPENSION UDC PO PRN (05:20)
[2021-06-25] MEDS ORDERED: MAALOX 30 ML SUSP *UDC PO PRN (05:20)
--- NOTE | 2021-06-25 05:25 | HPEPDOC ---
[facility] Medical History & Physical Date of Admission Jun 25, 2021 Date of Service: Jun 25, 2021 Attending Physician: MARKO DOE MD History and Physical TIME OF SERVICE: 544am CHIEF COMPLAINT: abdominal pain HISTORY OF PRESENT ILLNESS: , a 75 yr old F, was last admitted from Jun 06 to for Klebsiella oxytoca Bacteremia that was likely 2/2 PermCath infection. After being sent home she completed her course of antibiotics, but over the weekend she developed mid and left sided 9/10 in severity cramping abdominal pain associated with non-bloody vomitus and increased output from her ostomy. She has also had cramping in her hands and feet. She denied having f/c. REVIEW OF SYSTEMS: 10-point review of systems negative except as listed in HPI PAST MEDICAL/SURGICAL HISTORY: IgG kappa multiple myeloma status post stem cell transplant, with recurrence & relapse requiring chemotherapy and radiation. Currently on chemotherapy every . Peripheral neuropathy ESRD with hyperparathyroidism & Anemia of chronic disease Postherpetic neuralgia. Crohn disease, status post colectomy and ileostomy Hypothyroidism Chronic HFpEF (grade1) Hx of DVT History of transient ischemic attack PermaCath placement Vertebroplasty lumbar spine. AV fistula, clotting and bleeding requiring ligation, removal. Appendectomy Melanoma resection Basal cell carcinoma resection SOCIAL HISTORY: She is , has 2 adult children, smoked up to 1980, does not drink alcohol or use recreational drug use FAMILY HISTORY: Mother- DM, HTN, CAD / Father- Unknown to patient / Sister- DM / Brother- CVA, DM ALLERGIES: Please see below. HOME MEDICATIONS: Please see below. PHYSICAL EXAMINATION: Vital Signs Date Time Temp Pulse Resp B/P (MAP) Pulse Ox O2 Delivery O2 Flow Rate FiO2 06/25/21 00:55 83/44 (57) 06/25/21 01:00 97.4 89 16 100 Room Air GENERAL APPEARANCE: slim build /well developed/ NAD HEENT: EOMI / MMM&P CARDIOVASCULAR: RRR/NMRG / no LE edema LUNGS: CTAB on RA ABDOMEN: contour flat / ostomy w feces / abdomen soft & she grimaces w palpation of the umbilical and left lumbar region MUSCULOSKELETAL: NCAT / ANTOINETTE x 4 extremities INTEGUMENT: + generalized palor / no diaphoresis or flusing NEUROLOGICAL: CN 2-12 grossly intact / speech not dysarthric PSYCHIATRIC: A&O x 3 / able to understand and follow all commands LABORATORY DATA: IMAGING: CT abd/pelvis IMPRESSION: 1. There is borderline gastric distention with fluid and gas which may reflect recent ingestion. Gastric atony or relative outlet obstruction are not excluded. 2. Status post colectomy with multiple scattered surgical clips. There is a right lower quadrant ileostomy. 3. Subcutaneous venous varicosities which extend from the left inguinal region suggesting stenosis or occlusion of venous outflow from at least the left lower extremity. 4. Status post hysterectomy. 5. There has been little change from 06/06/2021. No acute interval process is identified Chest xray " IMPRESSION: Stable chest since 06/05/2021 with evidence of COPD. No acute interval process is identified." MICROBIOLOGY: Respiratory panel & C diff neg ASSESSMENT: is a 75 yr old F w a hx of Melanoma , IgG MM, neuropathy, ESRD w hyperparathyroidism / anemia, Crohn disease w ileostomy, Hypothyroidism, TIA, who is admitted for evaluation of hypotension, vomiting and increased ostomy out-put possibly 2/2 gastroenteritis or Crohns flair PLAN: 1 Hypotension 2/2 GI losses Plan: admit to PCU / c/w IVF 2 Vomiting and increased ostomy out-put Possibly 2/2 Crohns flair vs gastroenteritis Plan: IVF / f/u stool culture, Ova & parasites / start IV solumedrol hold home dose of decadrone/ Acetaminophen for pain / will hold off additional abx because she doesnt have SIRS / will ask the day time team to consider consulting GI 3 Lactic acidosis 2/2 dehydration Plan: IVF trend lactic acid 4 Supratherapeutic INR / Hx of DVT Plan: hold warfarin / f/u repeat INR 7 ESRD hyperparathyroidism & Anemia of chronic disease Plan: f/u w / ifeanyi 8 Hypothyroidism Plan: levothyroxine 9 Chronic HFpEF (grade1) Euvolemic 10 History of TIA Plan: atorvastatin 11 Sarcopenia BMI of 17 She used to weigh 52kg in Fe and now she is 45kg DVT px w n/a on warfarin Dispo: home after at least 2 midnights stay Home Medications Scheduled Atorvastatin Calcium (Atorvastatin Calcium) 10 Mg Tablet, 10 MG PO QHS Cholecalciferol (Vitamin D3) (D3-1999) 50 Mcg Capsule, 2,000 UNITS PO DAILY Cyclosporine (Restasis) 0.05% Droperette, 1 DROP OU BID Dexamethasone (Dexamethasone) 4 Mg Tablet, 4 MG PO ASDIRECTED TAKE BEFORE CHEMO ON THE Friday OF EACH MONTH Fluticasone Propion/Salmeterol (Advair Hfa 230-21 Mcg Inhaler) 12 Gm Hfa.aer.ad, 2 PUFF INH BID Levothyroxine Sodium (Levothyroxine Sodium) 75 Mcg Tablet, 75 MCG PO DAILY [place]-3 Fatty Acids/Fish Oil (Fish Oil 1,000 mg Capsule) 1 Each Capsule, 1,000 MG PO DAILY Sevelamer Carbonate (Sevelamer Carbonate) 800 Mg Tablet, 800 MG PO TID Warfarin Sodium (Warfarin Sodium) 2 Mg Tablet, 4 MG PO DAILY Scheduled PRN Acetaminophen (Acetaminophen) 325 Mg Tablet, 650 MG PO Q6H PRN for PAIN LEVEL 1- 5 Albuterol Sulfate (Proair Hfa) 8.5 Gm Hfa.aer.ad, 2 PUFF INH Q4H PRN for SH ORTNESS OF BREATH Allergies Coded Allergies: vancomycin (Verified Allergy, Intermediate, RASH/ITCHING, 01/24/20) A-FIB/CHADSVASC A-FIB History Current/History of A-Fib/PAF?: No Current PO Anticoag Therapy: No MARKO DOE MD Jun 25, 2021 05:24
--- NOTE | 2021-06-25 05:40 | ECGEPIP ---
[facility] - ED Test Date: 2021-06-25 Pat Name: AD JOHNSTON Department: Room: - Gender: Female [employer] Picker: : [id number] Requested By: AZEB Ravi Order Number: [id number] Reading MD: Kings Guillermo Measurements Intervals Emerson Rate: 83 P: 71 MA: 114 QRS: 77 QRSD: 84 T: 85 QT: 402 QTc: 472 Interpretive Statements Normal sinus rhythm NSTTW ABNORMALITY(S) SIMILAR TO 06/05/21 Electronically Signed on 06-25-2021 5:40:05 EDT by Kings Guillermo
[2021-06-25] MEDS ORDERED: ALBUTEROL 90 MCG/ACT 8GM HFA INHALER INH PRN (07:15)
[2021-06-25] MEDS: LEVOTHYROXINE 75MCG TABLET (0.075MG) PO SCH (08:00)
[2021-06-25 08:45] VITALS: BP 121/66
[2021-06-25 08:47] LABS: HEMATOCRIT 29.7 % (36.0-47.0); MEAN CORPUSCULAR HEMOGLOBIN 33.4 pg (27.0-33.0); MEAN CORPUSCULAR HGB CONC 33.7 g/dl (32.0-36.5); MEAN CORPUSCULAR VOLUME 99.3 fl (80.0-96.0); PLATELET COUNT, AUTOMATED 146 10^3/uL (150-450); RED BLOOD COUNT 2.99 10^6/uL (4.00-5.40); WHITE BLOOD COUNT 5.8 10^3/uL (4.0-10.0)
[2021-06-25] MEDS ORDERED: WARFARIN SOD 2MG TAB PO SCH (09:00)
[2021-06-25 09:25] LABS: CALCIUM LEVEL 8.5 MG/DL (8.8-10.2); CREATININE FOR GFR 9.16 MG/DL (0.55-1.30); GLOMERULAR FILTRATION RATE 4.5 (>39); POTASSIUM SERUM 4.1 MEQ/L (3.5-5.1)
[2021-06-25] MEDS: methylPREDNISolone 125MG 2ML VIAL IV SCH ×2 (09:42→20:45)
[2021-06-25] MEDS: NS 1,000 ML IV SCH ×2 (10:03→21:58)
--- NOTE | 2021-06-25 10:46 | IPNPDOC ---
Text Note Date of Service The patient was seen on 06/25/21. NOTE Subjective: Patient is a 75-year-old female who presented overnight to the em ergency department with abdominal pain, nonbloody vomitus and increased output from her ostomy. Patient was complaining of some cramping in her hands and feet. Patient states that this has been going on all weekend prior to her coming in. Patient was recently hospitalized from June 06 June 12 for Klebsiella bacteremia that was likely secondary to permacath infection. Patient states that she went home and completed her course of antibiotics. Patient was found to be dehydrated and was admitted in the hospital. Review of systems: General: Patient denies fevers HEENT: Patient denies headaches Cardiovascular: Patient denies chest pain Respiratory: Patient denies shortness of breath, cough GI: Patient reports that her nausea has slightly improved. Patient denies any abdominal pain. : Patient denies increased frequency or pain with urination Extremities: Patient denies swelling or pain in extremities Neurological: Patient denies numbness or tingling in legs Physical exam: Vitals: See below General: Alert and oriented female patient who was laying on the stretcher when I walked in the room. Patient not appear to be in any acute distress. HEENT: Normocephalic, atraumatic, moist mucous membranes. Neck: No lymphadenopathy or thyromegaly Cardiac: Regular rate and rhythm, no murmurs, normal S1, normal S2 Pulm: Clear to auscultation bilaterally. No wheezes, rhonchi, rales Abd: Minimal abdominal pain to palpation, no rebound tenderness, normal bowel sounds. Ext: No edema bilateral lower extremities Labs: See below Imaging: No imaging has been performed since admission. See H&P for chest x- ray. Assessment/plan: 75-year-old female with past medical history of melanoma, IgG multiple myeloma, neuropathy, ESRD with hyperparathyroidism/anemia, Crohn's disease with ileost nereida, hypothyroidism, TIA, who was admitted for evaluation of hypotension, vomiting, increased output from her ostomy possibly secondary to gastroenteritis or Crohn's flare. 1. Hypotension. Secondary to GI losses. Patient responded well to 2 500 cc boluses. Patient will continue with oral intake. 2. Vomiting increased ostomy output. Likely secondary to Crohn's flare versus gastroenteritis. Patient was started on IV Solu-Medrol and her home dose of Decadron has been discontinued. Acetaminophen for pain. Patient does not meet SIRS criteria so antibiotics have been held off. We will continue to monitor. 3. Lactic acidosis. Secondary to dehydration most likely. Give IV fluids and lactic acidosis which trended. 4. Supratherapeutic INR. Warfarin is on hold. Continue to follow repeat INR. 6. End-stage renal disease. Dr. Mckenzie has been consulted and will follow along managing the patient's dialysis. I appreciate Dr. Mckenzie's help treating the patient. 7. Hypothyroidism. Continue home levothyroxine. 8. Chronic heart failure with preserved ejection fraction. Patient is currently mildly dehydrated and is not in heart failure exacerbation. 9. History of TIA. Continue atorvastatin. DVT Prophylaxis: Continue with warfarin once INR becomes therapeutic again. Disposition: Pending improvement in the patient's vomiting and able to maintain hydration status with p.o. intake. VS,Fishbone, I+O VS, Fishbone, I+O Laboratory Tests 06/25/21 01:37 06/25/21 08:35 Vital Signs Date Time Temp Pulse Resp B/P (MAP) Pulse Ox O2 Delivery O2 Flow Rate FiO2 06/25/21 08:45 97.2 82 20 121/66 (84) 98 Room Air I&O- Last 24 Hours up to 6 AM 06/25/21 06:00 Intake Total 500 ml Balance 500 ml ELEUTERIO GASTON DO Jun 25, 2021 10:46
[2021-06-25] MEDS: (RENVELA) SEVELAMER **CARBONate** 800 MG TAB PO SCH ×3 (12:30→20:44)
[2021-06-25 14:00] VITALS: BP 110/54
[2021-06-25 16:00] VITALS: BP 93/48
--- NOTE | 2021-06-25 16:33 | CR ---
NEPHROLOGY CONSULTATION DATE: 06/25/2021 REQUESTING PHYSICIAN: Radha Lao MD REASONS FOR CONSULTATION: To assist in the management of end-stage renal disease. HISTORY OF PRESENT ILLNESS: Ms. Escobedo is a 75-year-old female with multiple chronic medical problems including a history of multiple myeloma, end-stage renal disease, history of Crohn's disease, status post colectomy and ileostomy. She was recently treated for Klebsiella bacteremia with intravenous antibiotics. It was felt to be related to Permacath use as her Permacath is being used for chemotherapy. Unfortunately she has no other I.V. access and was not felt to be suitable for an infusible placement. In any event patient developed high output from her ileostomy and also started to vomit due to which she presented to the Emergency Room. She was found to be dehydrated and hypotensive. She was given 1 liter of I.V. normal saline with improvement in her blood pressure. She is due for dialysis today and a nephrology consultation was requested. PAST MEDICAL/SURGICAL HISTORY: Significant for: 1. IgG [place] multiple myeloma status post stem cell transplant and with now relapse requiring chemotherapy and radiation. 2. End-stage renal disease requiring maintenance hemodialysis. 3. Peripheral neuropathy. 4. History of Crohn's disease status post colectomy and ileostomy. 5. Hypothyroidism. 6. History of diastolic congestive heart failure. 7. History of anemia. 8. History of transient ischemic attacks. 9. History of peripheral vascular disease. 10. History of vertebroplasty. 11. Multiple surgeries for AV fistulas and AV grafts. 12. Appendectomy. 13. History of malignant melanoma removal. 14. Permacath placement. FAMILY HISTORY: Noncontributory for this admission. She does have a history of diabetes, hypertension and coronary artery disease in her family. PERSONAL AND SOCIAL HISTORY: Patient is , has 2 adult children. She stopped smoking in 1980. She denies any drug or alcohol use. ALLERGIES: VANCOMYCIN. MEDICATIONS: Home medications include: 1. Atorvastatin 10 mg daily. 2. Vitamin D 2000 units daily. 3. Cyclosporin eye drops twice a day. 4. Dexamethasone 4 mg as part of her chemotherapy. 5. Levothyroxine 75 mcg daily. 6. Renvela 800 mg three times a day with meals. 7. Warfarin 4 mg daily. 8. Tylenol as needed. 9. Albuterol inhaler as needed. REVIEW OF SYSTEMS: She denies any fever or chills. She has recently been treated with intravenous antibiotics for Klebsiella bacteremia. She denies any headache. Ears, nose and throat: Unremarkable. Cardiovascular system: Significant for diastolic congestive heart failure in the setting of end-stage renal disease. Respiratory system: Negative for cough or hemoptysis. Significant for chronic hypoxemia. GI system: Significant for history of Crohn's disease, status post total colectomy and ileostomy. She reports high output from her ostomy for the last couple of days. She also had vomiting and abdominal pain. system: Negative for dysuria or hematuria. Endocrine system: Significant for hypothyroidism and secondary hyperparathyroidism. She does not have diabetes. Musculoskeletal system: Significant for multiple myeloma which has relapsed and she is receiving chemo. Psychosocial system: Significant for anxiety. Neurological system: Significant for prior TIA and peripheral neuropathy. PHYSICAL EXAMINATION: Temperature 97.2 degrees Fahrenheit, heart rate 82 per minute and respiratory rate 20 per minute. Blood pressure 120/66 mmHg and oxygen saturation 98% on room air. Head: Atraumatic. Neck: Supple and without JVD or thyroid enlargement. Heart: Sounds are irregular in rhythm. Lungs: Clear to auscultation. Abdomen: Soft and there is tenderness in the left periumbilical area. Her ileostomy in the right lower quadrant is functioning. Bowel sounds are normal. Extremities: Without any cyanosis of clubbing. She has no peripheral edema. Old surgical scars on both arms are well healed. Skin: Permacath in the right upper chest is without any signs of infection. LABORATORY DATA: Today's labs show: WBC count 5.8, hemoglobin 9, hematocrit 29.7, platelets 146. Sodium 138, potassium 4.1, CO2 25, BUN 63, creatinine 9.16, glucose 93, calcium 8.5. Lactic acid level was 2.8 and a repeat one is now 1.5. PROBLEMS AND PLAN: 1. End-stage renal disease: Patient is regularly dialyzed on Friday, Friday and Friday schedule. We will plan on dialyzing her today. No fluid will be removed due to dehydration and hypotension. 2. Anemia: Her anemia is stable at present and does not need any intervention. 3. Hypotension: This is most likely related to dehydration and has already improved with I.V. fluid given. She is currently receiving I.V. fluid at 80 mL per hour. We will not remove any fluid with dialysis as she still has high output from her ostomy. 4. Recent history of Klebsiella bacteremia: Blood cultures have been drawn. She just finished antibiotic last week and we will monitor closely. She is currently afebrile. Thank you for involving me in the care of Ms. Escobedo. I will follow her along with you. JUANA
[2021-06-25 20:00] VITALS: BP 127/60
[2021-06-25] MEDS: ADVAIR HFA 230/21MCG INHALER INH SCH (20:00)
[2021-06-25] MEDS ORDERED: ATORVASTATIN 10 MG TAB PO SCH (21:00)
[2021-06-26] VITALS: BP 119/57
[2021-06-26] MEDS: methylPREDNISolone 125MG 2ML VIAL IV SCH ×2 (00:58→08:14)
[2021-06-26 04:00] VITALS: BP 117/53
[2021-06-26] MEDS: LEVOTHYROXINE 75MCG TABLET (0.075MG) PO SCH (05:12)
[2021-06-26 05:17] LABS: HEMATOCRIT 26.8 % (36.0-47.0); HEMOGLOBIN 8.8 g/dl (12.0-15.5); MEAN CORPUSCULAR HEMOGLOBIN 33.3 pg (27.0-33.0); MEAN CORPUSCULAR HGB CONC 32.8 g/dl (32.0-36.5); MEAN CORPUSCULAR VOLUME 101.5 fl (80.0-96.0); PLATELET COUNT, AUTOMATED 131 10^3/uL (150-450); RED BLOOD COUNT 2.64 10^6/uL (4.00-5.40); WHITE BLOOD COUNT 7.1 10^3/uL (4.0-10.0)
[2021-06-26 05:38] LABS: CALCIUM LEVEL 8.3 MG/DL (8.8-10.2); CREATININE FOR GFR 5.65 MG/DL (0.55-1.30); GLOMERULAR FILTRATION RATE 7.8 (>39); POTASSIUM SERUM 4.7 MEQ/L (3.5-5.1)
[2021-06-26 08:00] VITALS: BP 128/59
[2021-06-26] MEDS: ADVAIR HFA 230/21MCG INHALER INH SCH (08:02)
[2021-06-26] MEDS: (RENVELA) SEVELAMER **CARBONate** 800 MG TAB PO SCH ×2 (08:14→11:59)
[2021-06-26] MEDS ORDERED: PRED10TA2 PO (11:32)
[2021-06-26 12:00] VITALS: BP 113/54
--- NOTE | 2021-06-26 12:39 | IPN ---
NEPHROLOGY PROGRESS NOTE DATE: 06/26/2021 SUBJECTIVE: Ms. Escobedo is seen this morning on her bedside. She was admitted yesterday with dehydration due to high output from her ileostomy. She was hypotensive on admission and did receive 1 liter I.V. fluid bolus on admission. She has been receiving I.V. normal saline 80 mL per hour since then. She was dialyzed yesterday and we did not remove any fluid. Her blood pressure has been about 90 mmHg since yesterday. Patient denies any nausea or vomiting at present and her oral intake is adequate. Her ileostomy output has improved significantly. She has no dyspnea, chest pain or leg edema. PHYSICAL EXAMINATION: Vital signs: Temperature 98.5, pulse 68, respiratory rate 16, blood pressure 128/59, saturating 98% on room air. Head: Atraumatic. Neck: Supple and without JVD or thyroid enlargement. Heart: Sounds are irregular in rhythm. Lungs: Clear to auscultation. Abdomen: Soft and nontender and bowel sounds present. Ileostomy in right lower quadrant is functioning. Extremities: Without any cyanosis or clubbing. Neurologically: She is awake, alert and oriented times 3. LABORATORY DATA: Today's labs show: WBC count 7.1, hemoglobin 8.8, hematocrit 26.8, platelets 131. Sodium 138, potassium 4.7, CO2 20, BUN 39, creatinine 5.65. PROBLEMS/PLAN: 1. Dehydration and hypotension: Patient had significant dehydration due to high output from her ileostomy. Her volume status has now improved. I am stopping her I.V. fluid as her oral intake is now adequate. 2. End-stage renal disease: Patient was dialyzed yesterday and she will be scheduled for the next dialysis tomorrow which is her regular day. 3. Anemia: Her anemia is stable and may be managed in the outpatient dialysis clinic. The decrease in her hemoglobin compared to yesterday is related to I.V. fluids and hemodilution. 4. Multiple myeloma: Patient has recurrence of multiple myeloma following stem cell transplant. She is being followed by oncology and has been receiving chemotherapy. She will resume her chemo as an outpatient. 5. Disposition: From a renal standpoint patient can be discharged to home today and follow up in the outpatient dialysis clinic.
[2021-06-26 13:31] LABS: INR 2.42; PROTHROMBIN TIME 26.7 SECONDS (12.7-14.5)
--- NOTE | 2021-06-26 22:39 | DS.PDOC ---
Discharge Summary General Date of Admission Jun 25, 2021 at 02:44 Date of Discharge Jun 26, 2021 Specialist/[facility], Dr. Harvey Mckenzie Discharge Summary PROCEDURES PERFORMED DURING STAY: None ADMITTING DIAGNOSES: 1. Hypovolemia secondary to increased ostomy output and vomiting 2. Lactic acidosis 3. Supratherapeutic INR 4. ESRD on dialysis 5. Hyperparathyroidism 6. Anemia of chronic disease 7. Hypothyroidism 8. Chronic HFpEF (grade I diastolic) 9. History of TIA 10. Sarcopenia (BMI 17.8) DISCHARGE DIAGNOSES: 1. Hypovolemia secondary to increased ostomy output and vomiting 2. Lactic acidosis 3. Supratherapeutic INR 4. ESRD on dialysis 5. Hyperparathyroidism 6. Anemia of chronic disease 7. Hypothyroidism 8. Chronic HFpEF (grade I diastolic) 9. History of TIA 10. Sarcopenia (BMI 17.8) COMPLICATIONS/CHIEF COMPLAINT: . HISTORY OF PRESENT ILLNESS: Copied from admitting attending's H&P " , a 75 yr old F, was last admitted from Jun 06 to for Klebsiella oxytoca Bacteremia that was likely 2/2 PermCath infection. After being sent home she completed her course of antibiotics, but over the weekend she developed mid and left sided 9/10 in severity cramping abdominal pain associated with non-bloody vomitus and increased output from her ostomy. She has also had cramping in her hands and feet. She denied having f/c. " HOSPITAL COURSE: During patient's hospital course, she was given IVF. Dialysis was skipped since she was hypovolemic. Patient's N/V may be secondary to Crohn's flare vs gastroenteritis. Patient was put Solumedrol and IF fluids. She recovered quicker than anticipated, and the following day, she felt better. She tolerated oral diet and her ostomy output was less. Patient felt ready for home and she was subsequently discharged home. Otherwise, when patient was admitted, her INR was supratherapeutic at 3.47. After holding a dose of warfarin, INR improved to 2.42. DISCHARGE MEDICATIONS: Please see below. ALLERGIES: Please see below. PHYSICAL EXAMINATION ON DISCHARGE: VITAL SIGNS: Please see below. GENERAL: Comfortable, in no apparent distress HEENT: Head normocephalic, atraumatic NECK: Supple CARDIOVASCULAR EXAMINATION: Regular rate and rhythm RESPIRATORY EXAMINATION: Lungs clear to auscultation bilaterally ABDOMINAL EXAMINATION: Soft, non-tender, normal bowel sounds EXTREMITIES: No pitting edema bilaterally PSYCHIATRIC EXAMINATION: Normal mood and affect LABORATORY DATA: Please see below. IMAGING: Radiologist interpretation CT abd/pelvis without contrast 1. There is borderline gastric distention with fluid and gas which may reflect recent ingestion. Gastric atony or relative outlet obstruction are not excluded. 2. Status post colectomy with multiple scattered surgical clips. There is a right lower quadrant ileostomy. 3. Subcutaneous venous varicosities which extend from the left inguinal region suggesting stenosis or occlusion of venous outflow from at least the left lower extremity. 4. Status post hysterectomy. 5. There has been little change from 06/06/2021. No acute interval process is identified. CXR Stable chest since 06/05/2021 with evidence of COPD. No acute interval process is identified. PROGNOSIS: Good ACTIVITY: As tolerated. DIET: Renal diet DISCHARGE PLAN: Home with home health services DISPOSITION: Home, Self-Care. DISCHARGE INSTRUCTIONS: 1. Follow up with PCP in 1 week 2. Follow up with nephrology at regular intervals ITEMS TO FOLLOWUP ON ON OUTPATIENT: 1. Monitor INR DISCHARGE CONDITION: Stable. Total time spent on discharge planning, discharge summary, and medication reconciliation: 45 minutes Vital Signs/I&Os Vital Signs Date Time Temp Pulse Resp B/P (MAP) Pulse Ox O2 Delivery O2 Flow Rate FiO2 06/26/21 12:00 98.3 73 17 113/54 (73) 99 Room Air I&O- Last 24 Hours up to 6 AM 06/26/21 06:00 Intake Total 2540 ml Output Total 775 ml Balance 1765 ml Laboratory Data Labs 24H Laboratory Tests 2 06/26/21 04:42: Nucleated Red Blood Cells % (auto) 0.0, Anion Gap 8, Glomerular Filtration Rate 7.8L, Calcium Level 8.3L 06/26/21 13:01: Prothrombin Time 26.7H, Prothromb Time International Ratio 2.42 CBC/BMP Laboratory Tests 06/26/21 04:42 Microbiology Microbiology 06/25/21 Blood Culture - Preliminary, Resulted No growth after 24 hours . All specim... 06/25/21 Blood Culture - Preliminary, Resulted No growth after 24 hours . All specim... Discharge Medications Scheduled Atorvastatin Calcium (Atorvastatin Calcium) 10 Mg Tablet, 10 MG PO QHS, (Reported) Cholecalciferol (Vitamin D3) (D3-2000) 50 Mcg Capsule, 2,000 UNITS PO DAILY, (Reported) Cyclosporine (Restasis) 0.05% Droperette, 1 DROP OU BID, (Reported) Dexamethasone (Dexamethasone) 4 Mg Tablet, 4 MG PO ASDIRECTED TAKE BEFORE CHEMO ON THE Friday OF EACH MONTH Fluticasone Propion/Salmeterol (Advair Hfa 230-21 Mcg Inhaler) 12 Gm Hfa.aer.ad, 2 PUFF INH BID, (Reported) Levothyroxine Sodium (Levothyroxine Sodium) 75 Mcg Tablet, 75 MCG PO DAILY, (Reported) [place]-3 Fatty Acids/Fish Oil (Fish Oil 1,000 mg Capsule) 1 Each Capsule, 1,000 MG PO DAILY, (Reported) Prednisone (Prednisone) 10 Mg Tablet, 10 MG PO TAPER Take 4 tabs daily x 3 days, then 3 tabs daily x 3 days, then 2 tabs daily x 3 days, then 1 tab daily x 3 days and stop Sevelamer Carbonate (Sevelamer Carbonate) 800 Mg Tablet, 800 MG PO TID, (Re ported) Warfarin Sodium (Warfarin Sodium) 2 Mg Tablet, 4 MG PO DAILY, (Reported) Scheduled PRN Acetaminophen (Acetaminophen) 325 Mg Tablet, 650 MG PO Q6H PRN for PAIN LEVEL 1- 5, (Reported) Albuterol Sulfate (Proair Hfa) 8.5 Gm Hfa.aer.ad, 2 PUFF INH Q4H PRN for SHORTNESS OF BREATH, (Reported) Allergies Coded Allergies: vancomycin (Verified Allergy, Intermediate, RASH/ITCHING, 01/24/20) KEVIN LIND DO Jun 26, 2021 22:39
== END 2021-06-25 08:39 | disposition home health service (06) | DRG 385 ==
LOC: M ED 00:17 → M ED INP 02:44 → UNDOADMIN 02:44 → ENRESERV 06:04 → M ED INP 08:39 → M PCU 08:39 → M ED 08:49 → UNDODISIN 06-26 14:05
PROVIDERS: ADMIT Internal Medicine; ATTEND Internal Medicine
PROC: 5A1D70Z Performance of Urinary Filtration, Intermittent, Less than 6 Hours Per Day (ICD-10-PCS; principal; 2021-06-25)
DX: K50.90 Crohn's disease, unspecified, without complications (principal); N18.6 End stage renal disease; N25.81 Secondary hyperparathyroidism of renal origin; I50.32 Chronic diastolic (congestive) heart failure; C90.02 Multiple myeloma in relapse; B02.29 Other postherpetic nervous system involvement; E87.2 Acidosis; Z68.1 Body mass index [BMI] 19.9 or less, adult; K94.09 Other complications of colostomy; M62.84 Sarcopenia; I95.9 Hypotension, unspecified; K52.9 Noninfective gastroenteritis and colitis, unspecified; G62.9 Polyneuropathy, unspecified; Z66 Do not resuscitate; E86.0 Dehydration; D63.1 Anemia in chronic kidney disease; Z85.820 Personal history of malignant melanoma of skin; Z85.828 Personal history of other malignant neoplasm of skin; Z93.2 Ileostomy status; Z90.49 Acquired absence of other specified parts of digestive tract; Z87.891 Personal history of nicotine dependence; Z86.718 Personal history of other venous thrombosis and embolism; Z86.73 Personal history of transient ischemic attack (TIA), and cerebral infarction without residual deficits; Z99.2 Dependence on renal dialysis; Z79.01 Long term (current) use of anticoagulants; Z79.899 Other long term (current) drug therapy; Z88.1 Allergy status to other antibiotic agents

== ENCOUNTER 2021-07-09 20:47 | Observation (INO) | payer MEDICARE, OTHER ==
[~2021-07-09] VITALS: Ht 162.6 cm; Wt 46.4 kg
[~2021-07-09 20:47] MED LIST changes: +PRED10TA2 PO; +SEVE800T3 PO; +WARF4TAB51 PO
[2021-07-09] MEDS ORDERED: ATORVASTATIN 10 MG TAB PO SCH (21:00)
--- NOTE | 2021-07-09 22:12 | REPVR ---
PROCEDURE INFORMATION: Exam: XR Chest Exam date and time: 07/09/2021 9:38 PM Age: 76 years old Clinical indication: Pain; Other: Abdominal; Additional info: Abdominal pain TECHNIQUE: Imaging protocol: XR of the chest. Views: 1 view. COMPARISON: CR PORTABLE CHEST X-RAY 06/25/2021 1:31 AM FINDINGS: Tubes, catheters and devices: Right jugular approach central venous catheter with tip in the superior vena cava. Lungs: There are findings of chronic obstructive pulmonary disease. No alveolar infiltrate is seen. Pleural spaces: No pleural effusion. No pneumothorax identified. Heart/Mediastinum: Unremarkable. No cardiomegaly. Bones/joints: No acute osseous abnormality is detected. IMPRESSION: 1. Findings of chronic obstructive pulmonary disease. 2. No infiltrate or pleural effusion. Electronically signed by: Brooke Henry On 07/09/2021 22:12:42 PM
[2021-07-09] MEDS ORDERED: NS 500 ML IV ONE (22:15)
[2021-07-09] MEDS ORDERED: ISOVUE-370 76% 100ML VIAL As Ordered ONE (22:15)
[2021-07-09 22:20] LABS: BASO % 0.1 % (0.0-1.0); EOS # 0.1 10^3/uL (0.0-0.5); EOS % 0.4 % (0.0-3.0); HEMATOCRIT 31.3 % (36.0-47.0); HEMOGLOBIN 10.1 g/dl (12.0-15.5); LYMPH # 1.3 10^3/uL (1.5-5.0); LYMPH % 8.1 % (24.0-44.0); MEAN CORPUSCULAR HEMOGLOBIN 33.7 pg (27.0-33.0); MEAN CORPUSCULAR HGB CONC 32.3 g/dl (32.0-36.5); MEAN CORPUSCULAR VOLUME 104.3 fl (80.0-96.0); MONO # 0.9 10^3/uL (0.0-0.8); MONO % 5.6 % (2.0-8.0); NEUTROPHILS # 13.8 10^3/uL (1.5-8.5); NEUTROPHILS % 85.2 % (36.0-66.0); PLATELET COUNT, AUTOMATED 211 10^3/uL (150-450); WHITE BLOOD COUNT 16.2 10^3/uL (4.0-10.0)
[2021-07-09 22:30] LABS: INR 2.06; PROTHROMBIN TIME 23.6 SECONDS (12.7-14.5)
[2021-07-09 22:51] LABS: RSV AMPLIFICATION NEGATIVE (NEGATIVE)
--- NOTE | 2021-07-09 23:08 | REPVR ---
PROCEDURE INFORMATION: Exam: CT Abdomen And Pelvis With Contrast Exam date and time: 07/09/2021 10:40 PM Age: 76 years old Clinical indication: Abdominal pain; Generalized TECHNIQUE: Imaging protocol: Computed tomography of the abdomen and pelvis with contrast. Radiation optimization: All CT scans at this facility use at least one of these dose optimization techniques: automated exposure control; mA and/or kV adjustment per patient size (includes targeted exams where dose is matched to clinical indication); or iterative reconstruction. Contrast material: ISOVUE 370; Contrast volume: 100 ml; Contrast route: INTRAVENOUS (IV); COMPARISON: CT ABD PELVIS W/O CONTRAST 06/25/2021 4:15 AM FINDINGS: Liver: There are no focal liver lesions present. Gallbladder and bile ducts: The gallbladder is normal. Pancreas: There is mild prominence of the pancreatic duct, which measures 3 mm. No focal pancreatic mass identified. Spleen: The spleen is normal. Adrenal glands: No adrenal mass identified. Kidneys and ureters: Atrophic, multi-cystic kidneys. Simple appearing renal cortical cysts measure up to 3 cm on the left.There is no evidence of hydronephrosis. No renal, ureteral, or bladder calculi are seen. Stomach and bowel: Surgical clips are seen in the abdomen, most numerous at the level of the rectum. There has been previous colectomy, with right ileostomy. There is peristomal herniation of a loop of ileum. There are several air-fluid levels in the bowel, suggesting ileus or partial obstruction. Appendix: Resected. Intraperitoneal space: No free air identified. No free fluid. Vasculature: Atherosclerotic vascular disease is noted. No abdominal aortic aneurysm identified. Lymph nodes: Unremarkable. No enlarged lymph nodes. Urinary bladder: The bladder is normal. Reproductive: There appears to have been previous hysterectomy. Extensive beam hardening artifact diminishes anatomic detail in the pelvis. Bones/joints: There has been previous vertebroplasty or kyphoplasty of the T12, L1 and L2 levels. Spinal degenerative changes are noted. Osteoporosis noted. IMPRESSION: 1. Previous colectomy, with right ileostomy. Peristomal herniation of a loop of ileum. Findings small bowel ileus or partial obstruction. 2. Pancreatic ductal prominence, no focal obstructing lesion identified. 3. Additional nonacute findings, as above. COMMENTS: Consistent with the [employer]'s Incidental Findings Committee white paper (J Am Rohit Radiol 2018): Any incidental renal lesion less than 1 cm or classified as too small to characterize, or any incidental cystic renal lesion characterized as simple-appearing, is likely benign. No follow-up imaging is recommended for these lesions per consensus recommendations based on imaging criteria. Electronically signed by: Brooke Henry On 07/09/2021 23:07:33 PM
[2021-07-09 23:11] LABS: ALBUMIN 2.9 GM/DL (3.2-5.2); BILIRUBIN,DIRECT 0.4 MG/DL (0.0-0.2); BILIRUBIN,TOTAL 1.6 MG/DL (0.2-1.0); CALCIUM LEVEL 8.5 MG/DL (8.8-10.2); CREATININE FOR GFR 4.16 MG/DL (0.55-1.30); GLOMERULAR FILTRATION RATE 11.1 (>39); POTASSIUM SERUM 4.3 MEQ/L (3.5-5.1); THYROID STIMULATING HORMONE 1.45 uIU/ML (0.358-3.740); TOTAL PROTEIN 5.4 GM/DL (6.4-8.2)
--- NOTE | 2021-07-10 01:19 | REPVR ---
PROCEDURE INFORMATION: Exam: US Abdomen, Limited; Right Upper Quadrant Exam date and time: 07/10/2021 12:38 AM Age: 76 years old Clinical indication: Abdominal pain; Acute; Additional info: Pancreatitis TECHNIQUE: Imaging protocol: US abdomen. Real time ultrasound with image documentation. Limited exam focused on the right upper quadrant. COMPARISON: GALLBLADDER US 07/31/2020 11:21 AM FINDINGS: Liver: The visualized liver is unremarkable. Gallbladder: The gallbladder is fluid filled. No cholelithiasis. No gallbladder wall thickening. The gallbladder wall measures 1.3 mm. No pericholecystic edema. Common bile duct: No intrahepatic or extrahepatic biliary ductal dilatation. The common duct measures 3.4 mm. Pancreas: Visualized portions of the pancreas are unremarkable. Right kidney: Right kidney is atrophic. Largest right renal cortical cyst measures 2.1 cm. Intraperitoneal space: No ascites is seen in the right upper quadrant. IMPRESSION: No cholelithiasis. No findings of acute cholecystitis or biliary obstruction. Electronically signed by: Brooke Henry On 07/10/2021 01:18:42 AM
[2021-07-10] MEDS ORDERED: HOME MED LIST COMPLETE! XX SCH (01:35)
[2021-07-10] MEDS ORDERED: ACETAMINOPHEN TAB 650MG DOSE (2X325MG) PO PRN (02:00)
[2021-07-10] MEDS ORDERED: ALBUTEROL 90 MCG/ACT 8GM HFA INHALER INH PRN (02:00)
[2021-07-10 02:50] LABS: MAGNESIUM LEVEL 1.9 MG/DL (1.8-2.4)
[2021-07-10] MEDS ORDERED: NS 1,000 ML IV SCH (02:55)
--- NOTE | 2021-07-10 03:04 | HPEPDOC ---
[facility] Medical History & Physical Date of Admission Jul 10, 2021 Date of Service: Jul 10, 2021 Primary Care Physician: FEROZ FUNES MD [facility] Attending Physician: KEVIN LIND DO History and Physical CHIEF COMPLAINT: Abdominal pain/cramping HISTORY OF PRESENT ILLNESS: Patient is a 76-year-old female who presents via EMS to [facility] emergency department with chief complaint of abdominal pain. Patient states that she was at dialysis earlier today when she began to develop cramping in her hands that quickly spread to her legs. She had about 900 cc of fluid removed which is normal for her. Following this, she developed abdominal cramping and pain localized more specifically to the left lower quadrant as well as increased output from her ostomy, filling about 1 bag per hour of watery, loose, dirty brown stool. She denies any fever, chills, blood in her ostomy, nausea, vomiting, hematemesis, dysuria, hematuria, lightheadedness or dizziness. She denies any dietary changes, and states she eats whatever she wants. Of note, she was recently seen by her oncologist, Dr. Woodward, on 07/03, where she was restarted on daratumumab for her myeloma. She had previously been on this, and last took it on 05/31 without issue, she also states she had no issues at dialysis last week or following the daratumumab treatment. In the emergency department she was found to have an elevated WBC count, lipase of 1088, and CT findings consistent with partial SBO vs small bowel illeus. Electrolytes, gallbladder US, and CXR were otherwise unremarkable. PAST MEDICAL HISTORY: IgG kappa multiple myeloma s/p stem cell transplant, with recurrence & relapse requiring chemotherapy and radiation. Currently on chemotherapy every . Peripheral neuropathy COPD? ESRD on HD MWF ESRD associated hyperparathyroidism & Anemia of chronic disease Hx of Postherpetic neuralgia. Crohn disease, s/p colectomy and ileostomy Hypothyroidism Chronic HFpEF (grade1) Hx of DVTs Hx of intraluminal SVC thrombus Hx of TIA's PAST SURGICAL HISTORY: PermaCath placement Vertebroplasty lumbar spine. AV fistula, clotting and bleeding requiring ligation, removal. Appendectomy Melanoma resection Basal cell carcinoma resection SOCIAL HISTORY: She is , has 2 adult children, smoked up to 1980, does not drink alcohol or use recreational drug use FAMILY HISTORY:Reviewed, non-contributory ALLERGIES: Please see below. REVIEW OF SYSTEMS: Constitutional: Denies fevers, chills, night sweats, or recent unexpected weight change. Admits to generalized weakness. HEENT: Denies headaches, head trauma, no visual changes or eye pain, denies nosebleeds or difficulty swallowing. Cardiovascular: Denies chest pain, palpitations, or orthopnea. Respiratory: Denies cough, wheezing, or shortness of breath GI: Denies nausea, vomiting, or constipation. Admits to chronic LLQ abdominal pain unchanged from baseline. Admits to loose stools as above. : Denies pain with urination or frequency Musculoskeletal: Denies joint pain or swelling Neuro/psych: Denies muscle weakness or sensory loss Skin: Denies skin rashes HOME MEDICATIONS: Please see below. PHYSICAL EXAMINATION: VITAL SIGNS: See below GENERAL APPEARANCE: Frail appearing female who appears stated age laying comfortable in bed in no acute distress HEENT: NC, AT, EOMI, no scleral icterus, moist mucous membranes, no pharyngeal erythema. CARDIOVASCULAR: RRR, normal S1-S2. No murmurs, gallops, rubs. LUNGS: CTAB with full breath sounds, no wheezes, crackles, or rhonchi. ABDOMEN: Soft, mildly tender to palpation in LLQ, non-distended, ostomy bag in p lace with watery output, unable to see into bag at time of exam. Bowel sounds present. No hepatosplenomegaly. No masses or ecchymosis. No CVA tenderness. EXTREMITIES: No swelling or edema NEUROLOGICAL: CN II-XII grossly intact. No focal neuro deficits Vascular: Cap refill<2 seconds Skin: Skin turgor slightly decreased PSYCHIATRIC: Normal mood and affect LABORATORY DATA: See below. IMAGIN07/09/21 CT abd/pelvis w/ IV contrast: "IMPRESSION: 1. Previous colectomy, with right ileostomy. Peristomal herniation of a loop of ileum. Findings small bowel ileus or partial obstruction. 2. Pancreatic ductal prominence, no focal obstructing lesion identified. 3. Additional non-acute findings, as above." 07/09/21 CXR: "IMPRESSION: 1. Findings of chronic obstructive pulmonary disease. 2. No infiltrate or pleural effusion. " 07/10/21 gallbladder U/S: "IMPRESSION: No cholelithiasis. No findings of acute cholecystitis or biliary obstruction." MICROBIOLOGY: Please see below. Assessment/Plan: Patient is a 76 y/o female presenting with cramping and copious ostomy output concerning for dehydration. #. Dehydration - In spite of the reported significant volume loss via ostomy since dialysis, ashish baxter's electrolytes are unremarkable and her symptoms have already improved dramatically with a 500 ml NS bolus. Patient notes she continues to have cramping in her hands but her leg and abdominal cramping is improved. -Despite having received it in the past the chemotherapy agent she is on does c arry with it known GI side effects including loose stools and even pancreatitis reported. Despite not being >3x ULN it is possible it was on the upswing and this represents early findings consistent with an acute pancreatitis which she has had in the past. -Also on the differential is possible short-gut syndrome given her history of colon/bowel resection and the continued recurrence of her symptoms, she has attempted anti-diarrheal's without success -Continue with gentle hydration overnight at 50 cc/hr, dayteam to reassess fluid needs based on symptoms and AM lab work #. Elevated lipase -Does not meet criteria for acute pancreatitis as not >3x ULN and abdominal pain is not characteristic either, if this changes may consider repeating level if this remains on differential. #. Leukocytosis -CXR negative, afebrile, GI panel negative, CT scan/gallbladder unremarkable for acute pathology -Blood cultures x2 ordered, suspect this is inflammatory in nature, will hold off on starting Abx #. ESRD on HD (MWF) -Nephrology consulted, recommendations appreciated. -C/w home sevelamer #. chronic hypoxemic respiratory failure? -On baseline home O2 (2.5 L) -Continue home advair, albuterol -Patient has vague hx of SOB of unknown etiology, some admissions in the past with viral or no etiology found, medications consistent with COPD, will continue home meds. #. Crohn's disease - s/p colostomy Hypothyroidism - c/w home levothyroxine #. Hx of TIA - c/w home statin, omega-3 FA #. Multiple myeloma - Currently on Daratumumab and dexamethasone - Will have outpatient follow up with Dr. Woodward DVT prophylaxis: C/w warfarin at therapeutic levels. Disposition: Pending clinical improvement, at least 2 midnights. Vital Signs Vital Signs Date Time Temp Pulse Resp B/P (MAP) Pulse Ox O2 Delivery O2 Flow Rate FiO2 07/09/21 22:30 18 125/58 (80) 100 Nasal Cannula 2.0 07/09/21 22:23 73 07/09/21 21:08 97.3 Laboratory Data Labs 24H Laboratory Tests 2 07/09/21 21:25: Immature Granulocyte % (Auto) 0.6, Neutrophils (%) (Auto) 85.2H, Lymphocytes (%) (Auto) 8.1L, Monocytes (%) (Auto) 5.6, Eosinophils (%) (Auto) 0.4, Basophils (%) (Auto) 0.1, Neutrophils # (Auto) 13.8H, Lymphocytes # (Auto) 1.3L, Monocytes # (Auto) 0.9H, Eosinophils # (Auto) 0.1, Basophils # (Auto) 0.0, Nucleated Red Blood Cells % (auto) 0.0, Anion Gap 9, Glomerular Filtration Rate 11.1L, Lactic Acid Level 1.7, Calcium Level 8.5L, Total Bilirubin 1.6H, Direct Bilirubin 0.4H, Aspartate Amino Transf (AST/SGOT) 19, Alanine Aminotransferase (ALT/SGPT) 50, Alkaline Phosphatase 71, Total Protein 5.4L, Albumin 2.9L, Albumin/Globulin Ratio 1.2, Lipase 1088H, Thyroid Stimulating Hormone (TSH) 1.450 07/09/21 21:29: Prothrombin Time 23.6H, Prothromb Time International Ratio 2.06, Activated Partial Thromboplast Time 31.0 07/09/21 21:56: Coronavirus (COVID-19)(PCR) NEGATIVE, Influenza Type A (RT-PCR) NEGATIVE, Influenza Type B (RT-PCR) NEGATIVE, Respiratory Syncytial Virus (PCR) NEGATIVE CBC/BMP Laboratory Tests 07/09/21 21:25 Microbiology Microbiology 07/09/21 Gastrointestinal Tract Panel (PCR) - Final, Complete 07/09/21 Blood Culture, Received Pending 07/09/21 Blood Culture, Received Pending Home Medications Scheduled Atorvastatin Calcium (Atorvastatin Calcium) 10 Mg Tablet, 10 MG PO QHS Cholecalciferol (Vitamin D3) (D3-2000) 50 Mcg Capsule, 2,000 UNITS PO DAILY Cyclosporine (Restasis) 0.05% Droperette, 1 DROP OU BID Dexamethasone (Dexamethasone) 4 Mg Tablet, 4 MG PO ASDIRECTED TAKE BEFORE CHEMO ON THE Friday OF EACH MONTH Fluticasone Propion/Salmeterol (Advair Hfa 230-21 Mcg Inhaler) 12 Gm Hfa.aer.ad, 2 PUFF INH BID Levothyroxine Sodium (Levothyroxine Sodium) 75 Mcg Tablet, 75 MCG PO DAILY Edmond-3 Fatty Acids/Fish Oil (Fish Oil 1,000 mg Capsule) 1 Each Capsule, 1,000 MG PO DAILY Sevelamer Carbonate (Sevelamer Carbonate) 800 Mg Tablet, 800 MG PO WM Warfarin Sodium (Warfarin Sodium) 2 Mg Tablet, 4 MG PO QPM TAKES AROUND 1700 Scheduled PRN Albuterol Sulfate (Proair Hfa) 8.5 Gm Hfa.aer.ad, 2 PUFF INH Q4H PRN for SHORTNESS OF BREATH Allergies Coded Allergies: vancomycin (Verified Allergy, Intermediate, RASH/ITCHING, 01/24/20) GME ATTESTATION GME ATTESTATION My faculty preceptor for this patient encounter was physically present during the encounter and was fully available. All aspects of the patient interview, examination, medical decision making process, and medical care plan development were reviewed and approved by the faculty preceptor. The faculty preceptor is aware and concurs with the plan as stated in the body of this note and will attest to such by his/her cosignature. AUBREY CARMICHAEL DO Jul 10, 2021 01:31
[2021-07-10 06:00] VITALS: BP 104/55
[2021-07-10] MEDS ORDERED: LEVOTHYROXINE 75MCG TABLET (0.075MG) PO SCH (06:00)
[2021-07-10] MEDS ORDERED: ADVAIR HFA 230/21MCG INHALER INH SCH (08:00)
[2021-07-10] MEDS ORDERED: (RENVELA) SEVELAMER **CARBONate** 800 MG TAB PO SCH (08:00)
[2021-07-10 08:17] LABS: EOS # 0.1 10^3/uL (0.0-0.5); EOS % 1.1 % (0.0-3.0); HEMATOCRIT 28.7 % (36.0-47.0); HEMOGLOBIN 9.2 g/dl (12.0-15.5); LYMPH # 2.4 10^3/uL (1.5-5.0); LYMPH % 26.2 % (24.0-44.0); MEAN CORPUSCULAR HEMOGLOBIN 33.5 pg (27.0-33.0); MEAN CORPUSCULAR HGB CONC 32.1 g/dl (32.0-36.5); MEAN CORPUSCULAR VOLUME 104.4 fl (80.0-96.0); MONO # 0.6 10^3/uL (0.0-0.8); MONO % 6.5 % (2.0-8.0); NEUTROPHILS # 6.1 10^3/uL (1.5-8.5); PLATELET COUNT, AUTOMATED 192 10^3/uL (150-450); RED BLOOD COUNT 2.75 10^6/uL (4.00-5.40); WHITE BLOOD COUNT 9.3 10^3/uL (4.0-10.0)
[2021-07-10 08:47] LABS: ALBUMIN 2.7 GM/DL (3.2-5.2); BILIRUBIN,TOTAL 1.8 MG/DL (0.2-1.0); CREATININE FOR GFR 4.64 MG/DL (0.55-1.30); GLOMERULAR FILTRATION RATE 9.8 (>39); MAGNESIUM LEVEL 1.9 MG/DL (1.8-2.4); POTASSIUM SERUM 4.5 MEQ/L (3.5-5.1)
[2021-07-10] MEDS ORDERED: CYCLOSPORINE 0.05% OU SCH ×2 (09:00)
[2021-07-10] MEDS ORDERED: OMEGA-3 1000MG CAPSULE PO SCH (09:00)
[2021-07-10] MEDS ORDERED: VITAMIN D 1,000 INTERNATIONAL UNITS TABLET PO SCH (09:00)
--- NOTE | 2021-07-10 10:20 | DS.PDOC ---
Discharge Summary General Date of Admission Jul 09, 2021 at 20:48 Date of Discharge 07/10/2021 Discharge Summary PROCEDURES PERFORMED DURING STAY: [None]. ADMITTING DIAGNOSES / DISCHARGE DIAGNOSES: s/p Dehydration Elevated lipase s/p Leukocytosis - possibly 2/2 reactive etiology ESRD on HD (MWF) Chronic hypoxemic respiratory failure? Crohn's disease Hypothyroidism Hx of TIA Multiple myeloma DVT prophylaxis COMPLICATIONS/CHIEF COMPLAINT: Abdominal Pain HISTORY OF PRESENT ILLNESS: Patient is a 76-year-old female who presented to the emergency room via EMS because of abdominal pain and cramping of her arms and legs. Upon arrival to emergency room, patient had lab work that had revealed leukocytosis. Patient was suspected of being dehydrated and given IV fluids because she had reported increased output from her ostomy. Patient was admitted to the hospital service for further evaluation and treatment. Nephrology was called on consultation. HOSPITAL COURSE: s/p Dehydration - Patient has received 500 mL normal saline bolus and has resolution of her cramping - Abdomen is soft, nondistended, nontender - s/p 500 CC NS - Will start clear liquid diet; will advance as tolerated - if tolerating regular diet will DC Home with services this afternoon - Will have outpatient follow-up with primary care provider, and nephrology within the next 7 days Elevated lipase - No abdominal tenderness - Does not meet criteria for acute pancreatitis as not >3x ULN s/p Leukocytosis - possibly 2/2 reactive etiology - No cramping or abdominal pain noted this morning - Hemodynamically stable and afebrile - Blood cultures 07/09: Pending - GI panel 07/09: Negative - Imaging noted below - No indications for antibiotics at this time ESRD on HD (MWF) - Nephrology on consult; appreciate their input - c/w home sevelamer Chronic hypoxemic respiratory failure? - No evidence of exacerbation - Currently saturating well on room air - Patient reports baseline home O2 (2.5 L) - c/w inhaled therapy as ordered Crohn's disease - s/p colostomy Hypothyroidism - c/w levothyroxine Hx of TIA - c/w home statin, omega-3 FA Multiple myeloma - Currently on Daratumumab and dexamethasone - Will have outpatient follow up with Dr. Woodward DVT prophylaxis - INR in therapeutic range - c/w Coumadin DISCHARGE MEDICATIONS: Please see below. ALLERGIES: Please see below. PHYSICAL EXAMINATION ON DISCHARGE: Vitals (See below) General: Lying in bed, appears comfortable, AAOx3 HEENT: NC, AT CVS: +S1S2 Lungs: Fair air entry b/l, no wheezing, rales or rhonchi Abdomen: Soft, ND, NT, + Ostomy Extremities: - Edema, - Calf tenderness LABORATORY DATA: Please see below. IMAGING: Abdominal CT 07/09: 1. Previous colectomy, with right ileostomy. Peristomal herniation of a loop of ileum. Findings small bowel ileus or partial obstruction. 2. Pancreatic ductal prominence, no focal obstructing lesion identified. 3. Additional nonacute findings, as above. CXR 07/09: 1. Findings of chronic obstructive pulmonary disease. 2. No infiltrate or pleural effusion. Gallbladder US 07/10: No cholelithiasis. No findings of acute cholecystitis or biliary obstruction. ACTIVITY: [As tolerated]. DISCHARGE PLAN: Follow-up with primary care provider, and nephrology within the next 7 days Remain compliant with treatment plan and medications Return to the ER if you experience any problems DISPOSITION: Home with services DISCHARGE CONDITION: [Stable]. TIME SPENT ON DISCHARGE: 35 minutes. Vital Signs/I&Os Vital Signs Date Time Temp Pulse Resp B/P (MAP) Pulse Ox O2 Delivery O2 Flow Rate FiO2 07/10/21 06:00 98.4 66 18 104/55 (71) 99 Room Air 07/09/21 22:30 2.0 I&O- Last 24 Hours up to 6 AM 07/10/21 05:59 Intake Total 500 ml Balance 500 ml Laboratory Data Labs 24H Laboratory Tests 2 07/09/21 21:25: Immature Granulocyte % (Auto) 0.6, Neutrophils (%) (Auto) 85.2H, Lymphocytes (%) (Auto) 8.1L, Monocytes (%) (Auto) 5.6, Eosinophils (%) (Auto) 0.4, Basophils (%) (Auto) 0.1, Neutrophils # (Auto) 13.8H, Lymphocytes # (Auto) 1.3L, Monocytes # (Auto) 0.9H, Eosinophils # (Auto) 0.1, Basophils # (Auto) 0.0, Nucleated Red Blood Cells % (auto) 0.0, Anion Gap 9, Glomerular Filtration Rate 11.1L, Lactic Acid Level 1.7, Calcium Level 8.5L, Magnesium Level 1.9, Total Bilirubin 1.6H, Direct Bilirubin 0.4H, Aspartate Amino Transf (AST/SGOT) 19, Alanine Aminotransferase (ALT/SGPT) 50, Alkaline Phosphatase 71, Total Protein 5.4L, Albumin 2.9L, Albumin/Globulin Ratio 1.2, Lipase 1088H, Thyroid Stimulating Hormone (TSH) 1.450 07/09/21 21:29: Prothrombin Time 23.6H, Prothromb Time International Ratio 2.06, Activated Partial Thromboplast Time 31.0 07/09/21 21:56: Coronavirus (COVID-19)(PCR) NEGATIVE, Influenza Type A (RT-PCR) NEGATIVE, Influenza Type B (RT-PCR) NEGATIVE, Respiratory Syncytial Virus (PCR) NEGATIVE 07/10/21 07:59: Immature Granulocyte % (Auto) 0.2, Neutrophils (%) (Auto) 66.0, Lymphocytes (%) (Auto) 26.2, Monocytes (%) (Auto) 6.5, Eosinophils (%) (Auto) 1.1, Basophils (%) (Auto) 0.0, Neutrophils # (Auto) 6.1, Lymphocytes # (Auto) 2.4, Monocytes # (Auto) 0.6, Eosinophils # (Auto) 0.1, Basophils # (Auto) 0.0, Nucleated Red Blood Cells % (auto) 0.0, Anion Gap 6L, Glomerular Filtration Rate 9.8L, Calcium Level 8.0L, Magnesium Level 1.9, Total Bilirubin 1.8H, Aspartate Amino Transf (AST/SGOT) 14, Alanine Aminotransferase (ALT/SGPT) 41, Alkaline Phosphatase 68, Total Protein 5.0L, Albumin 2.7L, Albumin/Globulin Ratio 1.2 CBC/BMP Laboratory Tests 07/09/21 21:25 07/10/21 07:59 Microbiology Microbiology 07/09/21 Gastrointestinal Tract Panel (PCR) - Final, Complete 07/09/21 Blood Culture, Received Pending 07/09/21 Blood Culture, Received Pending Discharge Medications Scheduled Atorvastatin Calcium (Atorvastatin Calcium) 10 Mg Tablet, 10 MG PO QHS, (Reported) Cholecalciferol (Vitamin D3) (D3-2000) 50 Mcg Capsule, 2,000 UNITS PO DAILY, (Reported) Cyclosporine (Restasis) 0.05% Droperette, 1 DROP OU BID, (Reported) Dexamethasone (Dexamethasone) 4 Mg Tablet, 4 MG PO ASDIRECTED TAKE BEFORE CHEMO ON THE Friday OF EACH MONTH Fluticasone Propion/Salmeterol (Advair Hfa 230-21 Mcg Inhaler) 12 Gm Hfa.aer.ad, 2 PUFF INH BID, (Reported) Levothyroxine Sodium (Levothyroxine Sodium) 75 Mcg Tablet, 75 MCG PO DAILY, (Reported) Kend[place]-3 Fatty Acids/Fish Oil (Fish Oil 1,000 mg Capsule) 1 Each Capsule, 1,000 MG PO DAILY, (Reported) Sevelamer Carbonate (Sevelamer Carbonate) 800 Mg Tablet, 800 MG PO WM, (Reported) Warfarin Sodium (Warfarin Sodium) 2 Mg Tablet, 4 MG PO QPM, (Reported) TAKES AROUND 1700 Scheduled PRN Albuterol Sulfate (Proair Hfa) 8.5 Gm Hfa.aer.ad, 2 PUFF INH Q4H PRN for SHORTNESS OF BREATH, (Reported) Allergies Coded Allergies: vancomycin (Verified Allergy, Intermediate, RASH/ITCHING, 01/24/20) KINDRA PALACIO MD Jul 10, 2021 10:20
[2021-07-10] MEDS ORDERED: WARFARIN SOD 4MG TAB PO SCH (17:00)
--- NOTE | 2021-07-10 17:53 | ECGEPIP ---
[facility] - ED Test Date: 2021-07-09 Pat Name: AD JOHNSTON Department: Room: [place] [id number] Gender: Female Sulfur Burner: MALLY : 1945 Requested By: AZEB Ravi Order Number: [id number] Reading MD: Peyton Vickers Measurements Intervals [place] Rate: 78 P: VA: 124 QRS: 72 QRSD: 68 T: 81 QT: 390 QTc: 444 Interpretive Statements ectopic atrial rhythm Electronically Signed on 07-10-2021 17:52:56 EDT by Peyton Vickers
--- NOTE | 2021-07-11 06:56 | CR ---
NEPHROLOGY CONSULTATION DATE: 07/10/2021 REQUESTING PHYSICIAN: Dr. Alexander Kinney CONSULTING PHYSICIAN: Dr. Sandra Mckenzie REASON FOR CONSULTATION: Management of end-stage renal disease on hemodialysis HISTORY OF PRESENT ILLNESS: Miss Yoana Escobedo is well known to me. She is a 76-year-old female with a past medical history of multiple myeloma, status post stem cell transplant with recurrence and relapse requiring ongoing chemotherapy (currently once a week for the past one month), end-stage renal disease, on hemodialysis on a Friday, Friday, Friday schedule, history of recurrent anemia related to myeloma and renal failure, Crohn's disease, status post colectomy and ileostomy, and other comorbid conditions mentioned below. The patient presented to the Emergency Room yesterday with complaints of one day history of diffuse cramping in her hands, arms and legs. The patient also noted a one day history of abdominal cramping and increased ostomy output, reports she was having to empty her bag about once an hour because of watery and increased liquid stool. She was dialyzed yesterday with minimal fluid removed which is a routine for her. Because the cramping did not jovany, she came to the Emergency Room and she was found to have an elevated WBC count and CAT scan findings were consistent with partial small-bowel obstruction versus small bowel ileus and the patient was started on IV fluids and Nephrology evaluation was requested for help in the management of her end-stage renal failure. The patient was seen and examined this morning at the bedside. She reports that her cramping resolved after she received IV fluids and her ostomy output has also returned to its usual state and she inquires about discharge plans and is looking forward to going home. PAST MEDICAL HISTORY: The patient's past medical history is significant for: 1. Multiple myeloma, status post stem cell transplant with recurrence and relapse, currently on weekly chemotherapy. 2. Peripheral neuropathy. 3. End-stage renal disease, on hemodialysis. 4. Secondary hyperparathyroidism. 5. Anemia secondary to myeloma and renal failure. 6. History of post herpetic neuralgia. 7. Crohn's disease, status post colectomy and ileostomy. 8. Hypothyroidism. 9. Diastolic congestive heart failure. 10. History of DVTs. 11. History of intraluminal SVC thrombus. 12. History of TIAs. PAST SURGICAL HISTORY: The patient's past surgical history is significant for: 1. Permacath placement. 2. Vertebroplasty of the lumbar spine. 3. AV fistula creation and AV fistula ligation. 4. AV graft surgeries. 5. Appendectomy. 6. Melanoma resection. 7. Basal cell carcinoma resection. 8. Ileostomy and colectomy. FAMILY HISTORY: The patient denies a family history of renal failure. SOCIAL HISTORY: The patient is . She has two adult children. She is an ex-smoker. There is no alcohol or drug use. ALLERGIES: Vancomycin. REVIEW OF SYSTEMS: Constitutional: She denies fevers or chills. She admits to generalized fatigue. HEENT: She denies eye pain, odynophagia or rhinorrhea. Cardiac: She denies chest pain, palpitations or edema. Respiratory: She denies cough or wheeze or hemoptysis. Gastrointestinal: She reports increased ostomy output with watery liquid stool. She denies nausea. Genitourinary: She denies dysuria or hematuria. Endocrine: She reports secondary hyperparathyroidism. Musculoskeletal: She denies leg edema. She complains of muscle cramping. Skin: She denies skin rashes or ulcers or pruritus. Hematological/Oncological: She reports a history of chronic anemia. Neurologic: She denies seizure or syncope. Remainder review of systems is negative or as HPI. HOME MEDICATIONS: 1. Atorvastatin 10 mg p.o. q. h.s. 2. Vitamin D-3 2,000 units p.o. daily. 3. Dexamethasone taken before chemotherapy. 4. Levothyroxine 75 mcg p.o. daily. 5. Renvela 800 mg p.o. with meals. 6. Coumadin as directed. 7. Albuterol p.r.n. PHYSICAL EXAMINATION: VITAL SIGNS: Temperature 98.4, pulse 66, respiratory rate 18, blood pressure 104/55, saturating 99% on room air. Weight in the bed scale today is 46 kg. PHYSICAL EXAMINATION: GENERAL APPEARANCE: The patient is seen sitting up in bed, elderly female awake, alert, oriented, comfortable, and bright and articulate female in no distress. HEENT: The extraocular muscles are intact. The tongue is moist. NECK: Supple. Jugular veins are not elevated. Tunneled hemodialysis catheter is present in the right chest wall with dressing. HEART: Regular, S1, S2. There is no peripheral edema. There is no clubbing or cyanosis. LUNGS: Clear to auscultation bilaterally. No crackles or rales. ABDOMEN: Soft. There is an ostomy present with minimal stool in the bag. EXTREMITIES: No peripheral edema or cyanosis. NEUROLOGICAL: She is oriented x3, interactive, conversational and at baseline mentation. No focal deficits. LABORATORY STUDIES: White count 9.3, hemoglobin 9.2, platelet count 192. Sodium 137, potassium 4.5, bicarbonate 24, BUN 31, creatinine 4.6, lactic acid 1.7, magnesium 1.9. IMAGING DATA: CAT scan done yesterday, July 09 with IV contrast is reviewed and shows small bowel ileus or partial obstruction and also shows atrophic kidneys with multiple simple cysts. INPATIENT MEDICATIONS: The patient's medications were reviewed by myself. The patient received 500 mL normal saline bolus and was on normal saline at 50 mL an hour, Tylenol p.r.n., Atorvastatin 10 mg p.o. q. h.s., Synthroid 75 mcg p.o. daily, Renvela 800 mg p.o. with meals, vitamin D 2,000 units p.o. daily, Coumadin 4 mg p.o. daily. PROBLEMS: 1. End-stage renal disease on hemodialysis on a Friday, Friday, Friday schedule - The patient has minimal removed with her hemodialysis treatments because of her ostomy output and she developed dehydration and cramping because of recent increase in ostomy output and she was appropriately given IV fluids with improvement in her symptoms. Her next dialysis will be on Friday, most likely in the outpatient setting. 2. Cramping and muscle spasm it was secondary to dehydration and decreased intravascular volume secondary to increased ostomy output. CAT scan showed small bowel ileus versus partial obstruction. The patient was given IV fluids. Her ostomy output has gone back down to her usual and she is tolerating a diet. 3. Anemia related to end-stage renal disease and also related to myeloma and chemotherapy goal hemoglobin is 10-11 and the patient will continue on RAFY therapy through the outpatient dialysis unit. 4. Leukocytosis in the setting of increased ostomy output and clinical dehydration - The patient is hemodynamically stable and afebrile. She had blood cultures drawn on July 09 and a GI PCR as well. Nothing has come back positive. Her white count has normalized. She did not receive any antibiotics on this admission. 5. Disposition - The patient is stable for discharge from a nephrology point of view.
== END 2021-07-10 12:29 | disposition home or self-care (01) ==
LOC: M ED 20:47 → M MSPAV 20:48 → ENRESERV 07-10 03:02 → M ED 07-10 03:18
PROVIDERS: ADMIT Internal Medicine; ATTEND Internal Medicine
DX: E86.0 Dehydration (principal); R74.8 Abnormal levels of other serum enzymes; D72.829 Elevated white blood cell count, unspecified; N18.6 End stage renal disease; Z99.2 Dependence on renal dialysis; J96.11 Chronic respiratory failure with hypoxia; K50.90 Crohn's disease, unspecified, without complications; E03.9 Hypothyroidism, unspecified; C90.02 Multiple myeloma in relapse; Z94.84 Stem cells transplant status; Z86.73 Personal history of transient ischemic attack (TIA), and cerebral infarction without residual deficits; Z93.3 Colostomy status; R25.2 Cramp and spasm; D63.1 Anemia in chronic kidney disease; D64.81 Anemia due to antineoplastic chemotherapy; N25.81 Secondary hyperparathyroidism of renal origin; G62.9 Polyneuropathy, unspecified; B02.29 Other postherpetic nervous system involvement; I50.30 Unspecified diastolic (congestive) heart failure; Z86.718 Personal history of other venous thrombosis and embolism; Z79.899 Other long term (current) drug therapy; Z79.51 Long term (current) use of inhaled steroids; Z79.01 Long term (current) use of anticoagulants; Z88.1 Allergy status to other antibiotic agents; Z87.891 Personal history of nicotine dependence
CPT/HCPCS: 36415; 71045; 74177; 76705; 80048; 80053; 80076; 83605; 83690; 83735; 84443; 85025; 85610; 85730; 87040; 87505; 87631; 93005; 93041; 96360; 99285; G0378; Q9967

== ENCOUNTER → 2021-08-10 | Outpatient (CLI) | payer OTHER, MEDICARE ==
--- NOTE | 2021-08-10 09:58 | REP ---
INDICATION: PAIN IN JOINTS OF RIGHT HAND. COMPARISON: None. TECHNIQUE: Right hand series: Four views. FINDINGS: Four views of the right hand demonstrate moderate diffuse osteopenia. There is some vascular calcification in the thenar soft tissues. There is minimal spurring at the D IP joints of the index and long finger. Mild spurring is seen at the 1st MCP joint with some joint space narrowing. No erosive changes are noted. No fracture or subluxation is seen. No opaque foreign body noted. IMPRESSION: Osteoporosis. Mild osteoarthritic changes. <Electronically signed by Venancio Daniel > 08/10/21 [id number]
== END ==
LOC: M RAD 09:34
PROVIDERS: ATTEND Internal Medicine Nephrology
DX: M85.841 Other specified disorders of bone density and structure, right hand (principal); M19.041 Primary osteoarthritis, right hand

== ENCOUNTER → 2021-09-04 | Outpatient (REF) | payer MEDICARE, OTHER ==
[2021-09-04 11:38] LABS: LDH LACTATE DEHYDROGENASE 172 U/L (84-246); TOTAL PROTEIN 6.6 GM/DL (6.4-8.2)
== END ==
LOC: M LAB REF 09:54
PROVIDERS: ATTEND Physician Assistant Medical
DX: R76.8 Other specified abnormal immunological findings in serum (principal)

== ENCOUNTER → 2021-12-13 | Outpatient (CLI) | payer MEDICARE, OTHER ==
[~2021-12-13] MED LIST changes: +FLUT1BLS3 IH; +Iron IV; +ONDA-84 PO; -ONDA8TAB10 PO
== END ==
LOC: M RAD 08:15
PROVIDERS: ATTEND Specialist
DX: C90.00 Multiple myeloma not having achieved remission (principal); M89.9 Disorder of bone, unspecified

== ENCOUNTER → 2022-02-22 | Outpatient (CLI) | payer MEDICARE, OTHER | LOC: M RAD 12:36 | PROVIDERS: ATTEND Internal Medicine Medical Oncology | DX: M19.011 Primary osteoarthritis, right shoulder (principal); C90.00 Multiple myeloma not having achieved remission ==

== ENCOUNTER 2022-03-21 08:23 | Outpatient (RCR) | payer MEDICARE, OTHER | END 2022-04-02 | LOC: M PT 08:23 | PROVIDERS: ATTEND Internal Medicine Medical Oncology | DX: M75.101 Unspecified rotator cuff tear or rupture of right shoulder, not specified as traumatic (principal) ==

== ENCOUNTER → 2022-04-15 | Outpatient (CLI) | payer MEDICARE, OTHER | LOC: M CARPUL 11:47 | PROVIDERS: ATTEND Internal Medicine Pulmonary Disease | DX: J47.9 Bronchiectasis, uncomplicated (principal) ==

== ENCOUNTER 2022-04-18 07:23 | Outpatient (RCR) | payer MEDICARE, OTHER | END 2022-05-02 | LOC: M PT 07:23 | PROVIDERS: ATTEND Internal Medicine Medical Oncology | DX: M25.519 Pain in unspecified shoulder (principal); C90.00 Multiple myeloma not having achieved remission ==

== ENCOUNTER 2022-04-25 04:23 | Emergency (ER) | payer MEDICARE, OTHER ==
[~2022-04-25] VITALS: Ht 162.6 cm; Wt 48.9 kg
[2022-04-25] MEDS ORDERED: NS 1,000 ML IV ONE (04:30)
[2022-04-25 05:19] LABS: BASO % 0.2 % (0.0-1.0); EOS % 0.4 % (0.0-3.0); HEMATOCRIT 30.3 % (36.0-47.0); HEMOGLOBIN 9.9 g/dl (12.0-15.5); LYMPH # 3.3 10^3/uL (1.5-5.0); LYMPH % 31.7 % (24.0-44.0); MEAN CORPUSCULAR HEMOGLOBIN 34.3 pg (27.0-33.0); MEAN CORPUSCULAR HGB CONC 32.7 g/dl (32.0-36.5); MEAN CORPUSCULAR VOLUME 104.8 fl (80.0-96.0); MONO # 0.7 10^3/uL (0.0-0.8); MONO % 6.9 % (2.0-8.0); NEUTROPHILS # 6.3 10^3/uL (1.5-8.5); NEUTROPHILS % 60.3 % (36.0-66.0); PLATELET COUNT, AUTOMATED 214 10^3/uL (150-450); RED BLOOD COUNT 2.89 10^6/uL (4.00-5.40); WHITE BLOOD COUNT 10.4 10^3/uL (4.0-10.0)
[2022-04-25 05:37] LABS: ALBUMIN 3.3 GM/DL (3.2-5.2); BILIRUBIN,DIRECT 0.5 MG/DL (0.0-0.2); BILIRUBIN,TOTAL 0.9 MG/DL (0.2-1.0); CK-MB VALUE MASS < 1.0 NG/ML (<3.6); CPK CREATINE PHOSPHOKINASE 34 U/L (26-192); CREATININE FOR GFR 4.95 MG/DL (0.55-1.30); GLOMERULAR FILTRATION RATE 9.1 (>39); MB/CK RELATIVE INDEX 2.94 (< OR =4); POTASSIUM SERUM 4.2 MEQ/L (3.5-5.1); TOTAL PROTEIN 6.1 GM/DL (6.4-8.2)
[2022-04-25 05:41] LABS: RSV AMPLIFICATION NEGATIVE (NEGATIVE)
[2022-04-25] MEDS ORDERED: NITROGLYCERIN 0.4 MG SUBL TABLET SL PRN (06:45)
[2022-04-25] MEDS ORDERED: ISOVUE-370 76% 100ML VIAL As Ordered ONE (07:46)
[2022-04-25 09:01] LABS: CK-MB VALUE MASS < 1.0 NG/ML (<3.6); CPK CREATINE PHOSPHOKINASE 27 U/L (26-192)
[2022-04-25 10:15] VITALS: BP 146/58
== END 2022-04-25 10:50 | disposition home or self-care (01) ==
LOC: M ED 04:23
DX: R07.9 Chest pain, unspecified (principal); I50.9 Heart failure, unspecified; Z88.1 Allergy status to other antibiotic agents; Z99.2 Dependence on renal dialysis
CPT/HCPCS: 36415; 71045; 71275; 80048; 80076; 82550; 82553; 83605; 83690; 84484; 85025; 87040; 87426; 87631; 93005; 93041; 99285; Q9967

== ENCOUNTER 2022-05-23 12:33 | Outpatient (RCR) | payer MEDICARE, OTHER | END 2022-06-02 | LOC: M PT 12:33 | PROVIDERS: ATTEND Internal Medicine Medical Oncology | DX: M25.511 Pain in right shoulder (principal); C90.00 Multiple myeloma not having achieved remission ==

== ENCOUNTER → 2022-06-11 | Outpatient (CLI) | payer MEDICARE, OTHER ==
[~2022-06-11] MED LIST changes: +LEVO1TAB40 PO; -LEVO750T13 PO
== END ==
LOC: M CARPUL 10:27
PROVIDERS: ATTEND Internal Medicine Pulmonary Disease
DX: J47.9 Bronchiectasis, uncomplicated (principal)

== ENCOUNTER 2022-06-27 10:12 | Outpatient (RCR) | payer MEDICARE, OTHER ==
[~2022-06-27 10:12] MED LIST changes: +ALBU6.7H6 INH; -PROV108A INH
== END 2022-07-03 ==
LOC: M PT 10:12
PROVIDERS: ATTEND Internal Medicine Medical Oncology
DX: C90.00 Multiple myeloma not having achieved remission (principal)

== ENCOUNTER 2022-07-16 12:00 | Observation (INO) | payer MEDICARE, OTHER ==
[~2022-07-16 12:00] MED LIST changes: +ELIQ2.5T PO
[2022-07-16] MEDS ORDERED: ISOVUE-370 76% 100ML VIAL As Ordered ONE (12:54)
[2022-07-16 13:43] LABS: RSV AMPLIFICATION NEGATIVE (NEGATIVE)
[2022-07-16 13:44] LABS: VENOUS BASE EXCESS 2.4 (-2.0-2.0); VENOUS HCO3 26.3 MEQ/L (23.0-27.0); VENOUS O2 SATURATION 93.7 % (60.0-80.0); VENOUS PARTIAL PRESSURE CO2 38.5 mmHg (38.0-50.0); VENOUS PARTIAL PRESSURE O2 69.7 mmHg (30.0-50.0); VENOUS PH 7.453 UNITS (7.330-7.430); VENOUS STANDARD HCO3 26.5 MEQ/L; VENOUS TOTAL CO2 27.5 MEQ/L (24.0-28.0)
[2022-07-16 13:53] LABS: BASO % 0.2 % (0.0-1.0); EOS % 0.2 % (0.0-3.0); HEMATOCRIT 30.4 % (36.0-47.0); LYMPH # 0.7 10^3/uL (1.5-5.0); LYMPH % 14.5 % (24.0-44.0); MEAN CORPUSCULAR HEMOGLOBIN 33.8 pg (27.0-33.0); MEAN CORPUSCULAR HGB CONC 32.9 g/dl (32.0-36.5); MEAN CORPUSCULAR VOLUME 102.7 fl (80.0-96.0); MONO # 0.1 10^3/uL (0.0-0.8); MONO % 1.6 % (2.0-8.0); NEUTROPHILS # 3.7 10^3/uL (1.5-8.5); NEUTROPHILS % 83.3 % (36.0-66.0); PLATELET COUNT, AUTOMATED 146 10^3/uL (150-450); RED BLOOD COUNT 2.96 10^6/uL (4.00-5.40); WHITE BLOOD COUNT 4.5 10^3/uL (4.0-10.0)
[2022-07-16 14:07] LABS: INR 1.09; PROTHROMBIN TIME 14.5 SECONDS (12.7-14.5)
[2022-07-16 14:08] LABS: PARTIAL THROMBOPLASTIN TIME 32.8 SECONDS (25.9-37.0)
[2022-07-16 14:26] LABS: CK-MB VALUE MASS < 1.0 NG/ML (<3.6); CPK CREATINE PHOSPHOKINASE 47 U/L (26-192); MB/CK RELATIVE INDEX 2.13 (< OR =4)
[2022-07-16 14:27] LABS: ALBUMIN 3.3 GM/DL (3.2-5.2); BILIRUBIN,DIRECT 0.4 MG/DL (0.0-0.2); BILIRUBIN,TOTAL 1.3 MG/DL (0.2-1.0); CALCIUM LEVEL 8.8 MG/DL (8.8-10.2); CREATININE FOR GFR 5.51 MG/DL (0.55-1.30); POTASSIUM SERUM 4.2 MEQ/L (3.5-5.1); TOTAL PROTEIN 5.6 GM/DL (6.4-8.2)
[2022-07-16] MEDS ORDERED: DEXA4TA PO (15:05)
[2022-07-16] MEDS ORDERED: RENV2TAB PO (15:11)
[2022-07-16] MEDS ORDERED: DARA15VI SQ (15:12)
[2022-07-16] MEDS ORDERED: HOME MED LIST COMPLETE! XX SCH (15:15)
[2022-07-16 15:34] LABS: PROLACTIN 20.4 NG/ML
[2022-07-16] MEDS ORDERED: LORazepam 2 MG/ML VIAL IV STA (16:42)
[2022-07-16 18:22] VITALS: BP 134/63
[2022-07-16] MEDS: (RENVELA) SEVELAMER **CARBONate** 800 MG TAB PO SCH ×2 (19:06→20:40)
[2022-07-16 20:00] VITALS: BP 177/79
[2022-07-16] MEDS: APIXABAN 2.5 MG TAB (ELIQUIS) PO SCH (20:40)
[2022-07-16] MEDS ORDERED: ATORVASTATIN 10 MG TAB PO SCH (21:00)
[2022-07-17] VITALS: BP 131/60
[2022-07-17 04:00] VITALS: BP 151/69
[2022-07-17 04:01] LABS: HEMATOCRIT 33.5 % (36.0-47.0); HEMOGLOBIN 10.8 g/dl (12.0-15.5); MEAN CORPUSCULAR HEMOGLOBIN 33.1 pg (27.0-33.0); MEAN CORPUSCULAR HGB CONC 32.2 g/dl (32.0-36.5); MEAN CORPUSCULAR VOLUME 102.8 fl (80.0-96.0); PLATELET COUNT, AUTOMATED 160 10^3/uL (150-450); RED BLOOD COUNT 3.26 10^6/uL (4.00-5.40); WHITE BLOOD COUNT 10.1 10^3/uL (4.0-10.0)
[2022-07-17 04:34] LABS: CALCIUM LEVEL 9.5 MG/DL (8.8-10.2); CREATININE FOR GFR 6.47 MG/DL (0.55-1.30); GLOMERULAR FILTRATION RATE 6.7 (>39); POTASSIUM SERUM 4.7 MEQ/L (3.5-5.1)
[2022-07-17] MEDS ORDERED: LEVOTHYROXINE 75MCG TABLET (0.075MG) PO SCH (06:00)
[2022-07-17] MEDS ORDERED: SODIUM CHLORIDE 0.9% 1000ML IV PRN (06:40)
[2022-07-17] MEDS: APIXABAN 2.5 MG TAB (ELIQUIS) PO SCH (07:49)
[2022-07-17 08:00] VITALS: BP 147/65
[2022-07-17] MEDS ORDERED: (RENVELA) SEVELAMER **CARBONate** 800 MG TAB PO SCH (09:00)
[2022-07-17] MEDS ORDERED: ELIQ5TAB PO ×2 (09:59→11:16)
[2022-07-17 12:00] VITALS: BP 139/65
[2022-07-17] MEDS ORDERED: APIXABAN 5 MG TAB (ELIQUIS) PO SCH (21:00)
== END 2022-07-17 15:22 | disposition home health service (06) ==
LOC: M ED 12:00 → M ED INP 14:42 → ENRESERV 15:38 → M PCU 18:40
PROVIDERS: ADMIT General Practice; ATTEND General Practice
DX: G45.9 Transient cerebral ischemic attack, unspecified (principal); D68.59 Other primary thrombophilia; N18.6 End stage renal disease; Z99.2 Dependence on renal dialysis; C90.02 Multiple myeloma in relapse; R20.2 Paresthesia of skin; E03.9 Hypothyroidism, unspecified; E87.1 Hypo-osmolality and hyponatremia; I11.0 Hypertensive heart disease with heart failure; E21.3 Hyperparathyroidism, unspecified; Z85.820 Personal history of malignant melanoma of skin; Z86.73 Personal history of transient ischemic attack (TIA), and cerebral infarction without residual deficits; K50.90 Crohn's disease, unspecified, without complications; G62.9 Polyneuropathy, unspecified; I73.9 Peripheral vascular disease, unspecified; I50.30 Unspecified diastolic (congestive) heart failure; D63.1 Anemia in chronic kidney disease; Z79.899 Other long term (current) drug therapy; Z79.01 Long term (current) use of anticoagulants; Z79.890 Hormone replacement therapy; Z87.891 Personal history of nicotine dependence
CPT/HCPCS: 36415; 70450; 70496; 70498; 70544; 70547; 70551; 71045; 72125; 80047; 80048; 80076; 82550; 82553; 82803; 84146; 84484; 85025; 85027; 85610; 85730; 87040; 87631; 92610; 93005; 93041; 96374; 97161; 97165; 99285; G0257; G0378; J2060; Q9967

== ENCOUNTER 2022-08-01 07:29 | Outpatient (RCR) | payer MEDICARE, OTHER ==
[~2022-08-01 07:29] MED LIST changes: +DARA15VI SQ; +ELIQ5TAB PO
== END 2022-08-02 ==
LOC: M PT 07:29
PROVIDERS: ATTEND Internal Medicine Medical Oncology
DX: M25.111 Fistula, right shoulder (principal)

== ENCOUNTER 2022-08-22 14:04 | Outpatient (RCR) | payer MEDICARE, OTHER ==
[~2022-08-22 14:04] MED LIST changes: -DOXY-350 PO; +DOXY-444 PO
== END 2022-09-02 ==
LOC: M PT 14:04
PROVIDERS: ATTEND Internal Medicine Medical Oncology
DX: M25.811 Other specified joint disorders, right shoulder (principal)

== ENCOUNTER 2022-09-12 07:29 | Outpatient (RCR) | payer MEDICARE, OTHER | END 2022-10-02 | LOC: M PT 07:29 | PROVIDERS: ATTEND Internal Medicine Medical Oncology | DX: M25.811 Other specified joint disorders, right shoulder (principal) ==

== ENCOUNTER 2022-10-24 12:56 | Emergency (ER) | payer MEDICARE, OTHER ==
[~2022-10-24] VITALS: Ht 162.6 cm; Wt 47.2 kg
[2022-10-24] MEDS ORDERED: NS 1,000 ML IV ONE (13:30)
[2022-10-24 14:02] LABS: HEMATOCRIT 29.9 % (36.0-47.0); HEMOGLOBIN 9.4 g/dl (12.0-15.5); RED BLOOD COUNT 2.92 10^6/uL (4.00-5.40); WHITE BLOOD COUNT 8.2 10^3/uL (4.0-10.0)
[2022-10-24 14:03] LABS: BASO % 0.1 % (0.0-1.0); EOS % 0.4 % (0.0-3.0); LYMPH # 1.3 10^3/uL (1.5-5.0); LYMPH % 15.6 % (24.0-44.0); MEAN CORPUSCULAR HEMOGLOBIN 32.2 pg (27.0-33.0); MEAN CORPUSCULAR HGB CONC 31.4 g/dl (32.0-36.5); MEAN CORPUSCULAR VOLUME 102.4 fl (80.0-96.0); MONO # 0.5 10^3/uL (0.0-0.8); MONO % 5.5 % (2.0-8.0); NEUTROPHILS # 6.4 10^3/uL (1.5-8.5); NEUTROPHILS % 77.9 % (36.0-66.0); PLATELET COUNT, AUTOMATED 250 10^3/uL (150-450)
[2022-10-24 14:24] LABS: INR 2.29; PROTHROMBIN TIME 25.6 SECONDS (12.5-14.5)
[2022-10-24 14:25] LABS: PARTIAL THROMBOPLASTIN TIME 33.7 SECONDS (24.8-34.2)
[2022-10-24 15:18] LABS: ALBUMIN 3.2 G/DL (3.2-5.2); ALKALINE PHOSPHATASE 100 U/L (46-116); ALT/SGPT 12 U/L (7.0-40); AST/SGOT 18 U/L (<34); BILIRUBIN,DIRECT 0.6 MG/DL (<0.4); BILIRUBIN,TOTAL 1.5 MG/DL (0.3-1.2); BLOOD UREA NITROGEN 25 MG/DL (9-23); CALCIUM LEVEL 8.8 MG/DL (8.3-10.6); CARBON DIOXIDE LEVEL 31 MMOL/L (20-31); CHLORIDE LEVEL 99 MMOL/L (98-107); CPK CREATINE PHOSPHOKINASE 48 U/L (34-145); GLOMERULAR FILTRATION RATE 7.7 (>39); GLUCOSE, FASTING 105 MG/DL (74-106); LIPASE 68 U/L (12-53); POTASSIUM SERUM 3.9 MMOL/L (3.5-5.1); SODIUM LEVEL 140 MMOL/L (136-145); TOTAL PROTEIN 5.9 G/DL (5.7-8.2)
[2022-10-24 15:30] LABS: CK-MB VALUE MASS < 1.0 NG/ML (<3.6); MB/CK RELATIVE INDEX 2.08 (< OR =4)
[2022-10-24 15:52] LABS: RSV AMPLIFICATION NEGATIVE (NEGATIVE)
[2022-10-24] MEDS ORDERED: ALBUTEROL SULFATE 2.5MG/0.5ML INH NEB SOLN INH ONE (16:40)
[2022-10-24] MEDS ORDERED: methylPREDNISolone 125MG 2ML VIAL IV ONE (16:40)
[2022-10-24] MEDS ORDERED: IPRATROPIUM 0.5MG/ALBUTEROL 2.5MG INH SOL UD 3ML (DUONEB) NEB ONE (16:40)
[2022-10-24] MEDS ORDERED: AZITHROMYCIN 250MG TABLET PO ONE (18:20)
[2022-10-24] MEDS ORDERED: AZIT500T5 PO (18:21)
[2022-10-24] MEDS ORDERED: PROA1AER2 INH (18:21)
[2022-10-24] MEDS ORDERED: PRED20TA PO (18:21)
[2022-10-24 18:45] VITALS: BP 121/58
== END 2022-10-24 19:18 | disposition home or self-care (01) ==
LOC: M ED 12:56
DX: J18.9 Pneumonia, unspecified organism (principal); N18.6 End stage renal disease; Z99.2 Dependence on renal dialysis; E50.9 Vitamin A deficiency, unspecified; Z86.73 Personal history of transient ischemic attack (TIA), and cerebral infarction without residual deficits; Z79.01 Long term (current) use of anticoagulants; Z79.890 Hormone replacement therapy; Z79.899 Other long term (current) drug therapy; Z88.1 Allergy status to other antibiotic agents
CPT/HCPCS: 71045; 71250; 80048; 80076; 82550; 82553; 83605; 83690; 84484; 85025; 85610; 85730; 86850; 86870; 86900; 86901; 87040; 87631; 93005; 93041; 96361; 96374; 99285; J2930

== ENCOUNTER 2022-10-31 15:32 | Inpatient (IN) | payer OTHER, MEDICARE ==
[~2022-10-31] VITALS: Ht 162.6 cm; Wt 48.7 kg
[~2022-10-31 15:32] MED LIST changes: +AZIT500T5 PO; +PRED20TA PO; +PROA1AER2 INH
[2022-10-31 19:11] LABS: BASO % 0.2 % (0.0-1.0); EOS % 0.3 % (0.0-3.0); HEMATOCRIT 33.7 % (36.0-47.0); HEMOGLOBIN 10.5 g/dl (12.0-15.5); LYMPH # 0.8 10^3/uL (1.5-5.0); LYMPH % 5.7 % (24.0-44.0); MEAN CORPUSCULAR HEMOGLOBIN 32.4 pg (27.0-33.0); MEAN CORPUSCULAR HGB CONC 31.2 g/dl (32.0-36.5); MONO # 0.7 10^3/uL (0.0-0.8); MONO % 4.5 % (2.0-8.0); NEUTROPHILS # 12.7 10^3/uL (1.5-8.5); NEUTROPHILS % 88.7 % (36.0-66.0); PLATELET COUNT, AUTOMATED 243 10^3/uL (150-450); RED BLOOD COUNT 3.24 10^6/uL (4.00-5.40); WHITE BLOOD COUNT 14.3 10^3/uL (4.0-10.0)
[2022-10-31 19:30] LABS: ALBUMIN 3.6 G/DL (3.2-5.2); BILIRUBIN,DIRECT 0.6 MG/DL (<0.4); BILIRUBIN,TOTAL 1.9 MG/DL (0.3-1.2); CALCIUM LEVEL 9.6 MG/DL (8.3-10.6); CREATININE FOR GFR 6.54 MG/DL (0.55-1.30); GLOMERULAR FILTRATION RATE 6.6 (>39); POTASSIUM SERUM 4.4 MMOL/L (3.5-5.1); TOTAL PROTEIN 6.5 G/DL (5.7-8.2)
[2022-10-31] MEDS ORDERED: NS 1,000 ML IV ONE (19:50)
[2022-10-31] MEDS ORDERED: ISOVUE-370 76% 100ML VIAL As Ordered ONE (19:56)
[2022-10-31] MEDS ORDERED: NS 500 ML IV ONE (20:45)
[2022-10-31] MEDS ORDERED: PIPERACILLIN/TAZOBACTAM SOD 4.5 GM in D5W MINI-BAG PLUS 50 ML IV ONE (22:35)
[2022-10-31] MEDS ORDERED: OMEG10002 PO (23:28)
[2022-10-31] MEDS ORDERED: PROA1AER2 INH (23:28)
[2022-10-31] MEDS ORDERED: HOME MED LIST COMPLETE! XX SCH (23:30)
[2022-11-01] MEDS ORDERED: ALBUTEROL 90 MCG/ACT 8GM HFA INHALER INH PRN (00:50)
[2022-11-01 01:30] LABS: INR 1.14; PROTHROMBIN TIME 14.8 SECONDS (12.5-14.5)
[2022-11-01 02:13] VITALS: BP 124/76
[2022-11-01] MEDS: WARFARIN SOD 4MG TAB PO SCH ×2 (02:59→16:49)
[2022-11-01 04:00] VITALS: BP 98/52
[2022-11-01 05:27] LABS: INR 1.11; PROTHROMBIN TIME 14.5 SECONDS (12.5-14.5)
[2022-11-01] MEDS: LEVOTHYROXINE 75MCG TABLET (0.075MG) PO SCH (05:42)
[2022-11-01 08:16] VITALS: BP 110/59
[2022-11-01 08:57] LABS: HEMATOCRIT 28.6 % (36.0-47.0); HEMOGLOBIN 8.9 g/dl (12.0-15.5); MEAN CORPUSCULAR HEMOGLOBIN 32.6 pg (27.0-33.0); MEAN CORPUSCULAR HGB CONC 31.1 g/dl (32.0-36.5); MEAN CORPUSCULAR VOLUME 104.8 fl (80.0-96.0); PLATELET COUNT, AUTOMATED 165 10^3/uL (150-450); RED BLOOD COUNT 2.73 10^6/uL (4.00-5.40); WHITE BLOOD COUNT 7.9 10^3/uL (4.0-10.0)
[2022-11-01 09:08] LABS: ALBUMIN 2.9 G/DL (3.2-5.2); BILIRUBIN,TOTAL 1.6 MG/DL (0.3-1.2); CALCIUM LEVEL 8.2 MG/DL (8.3-10.6); CREATININE FOR GFR 6.79 MG/DL (0.55-1.30); GLOMERULAR FILTRATION RATE 6.3 (>39); POTASSIUM SERUM 4.5 MMOL/L (3.5-5.1); TOTAL PROTEIN 5.3 G/DL (5.7-8.2)
[2022-11-01] MEDS ORDERED: HEPARIN 1,000UNITS/ML 10ML VIAL (FOR RADIOLOGY & DIALYSIS ONLY) IV PRN (09:15)
[2022-11-01] MEDS ORDERED: SODIUM CHLORIDE 0.9% 1000ML IV PRN (09:15)
[2022-11-01] MEDS ORDERED: HEPARIN 1,000UNITS/ML 10ML VIAL (FOR RADIOLOGY & DIALYSIS ONLY) XX SCH (09:15)
[2022-11-01] MEDS ORDERED: ALTEPLASE 2MG/2ML VIAL XX ONE ×2 (10:55→10:56)
[2022-11-01 16:14] VITALS: BP 97/50
[2022-11-01 20:00] VITALS: BP 80/38
[2022-11-01 20:30] VITALS: BP 94/50
[2022-11-01] MEDS: ATORVASTATIN 10 MG TAB PO SCH (20:40)
[2022-11-02] VITALS: BP 96/50
[2022-11-02 04:00] VITALS: BP 90/54
[2022-11-02] MEDS: LEVOTHYROXINE 75MCG TABLET (0.075MG) PO SCH (05:03)
[2022-11-02 05:33] LABS: HEMOGLOBIN 9.2 g/dl (12.0-15.5); MEAN CORPUSCULAR HEMOGLOBIN 32.4 pg (27.0-33.0); MEAN CORPUSCULAR HGB CONC 31.7 g/dl (32.0-36.5); MEAN CORPUSCULAR VOLUME 102.1 fl (80.0-96.0); PLATELET COUNT, AUTOMATED 141 10^3/uL (150-450); RED BLOOD COUNT 2.84 10^6/uL (4.00-5.40); WHITE BLOOD COUNT 4.8 10^3/uL (4.0-10.0)
[2022-11-02 05:50] LABS: MAGNESIUM LEVEL 1.7 MG/DL (1.8-2.4)
[2022-11-02 05:54] LABS: CALCIUM LEVEL 8.6 MG/DL (8.3-10.6); CREATININE FOR GFR 5.74 MG/DL (0.55-1.30); GLOMERULAR FILTRATION RATE 7.7 (>39); POTASSIUM SERUM 4.1 MMOL/L (3.5-5.1)
[2022-11-02] MEDS ORDERED: MAGNESIUM OXIDE 400MG TAB (MAG-OX) PO ONE (07:00)
[2022-11-02 08:00] VITALS: BP 99/54
[2022-11-02] MEDS ORDERED: MAG SULF 1GM/100ML (MAG RUN) 1 GM in IV 1 EA IV ONE (08:00)
[2022-11-02 11:57] LABS: PERCENT SATURATION 14.6 % (13.2-45.0)
[2022-11-02 12:00] VITALS: BP 105/57
[2022-11-02 12:00] LABS: FOLATE 19.31 NG/ML (>5.4)
[2022-11-02 12:18] LABS: FERRITIN 1561.7 NG/ML (7.3-270.7)
[2022-11-02 16:00] VITALS: BP 97/48
[2022-11-02] MEDS: WARFARIN SOD 4MG TAB PO SCH (16:32)
[2022-11-02 20:00] VITALS: BP 88/52
[2022-11-02] MEDS: ATORVASTATIN 10 MG TAB PO SCH (20:14)
[2022-11-03 04:00] VITALS: BP 92/47
[2022-11-03 05:42] LABS: HEMOGLOBIN 9.4 g/dl (12.0-15.5); MEAN CORPUSCULAR HEMOGLOBIN 32.5 pg (27.0-33.0); MEAN CORPUSCULAR HGB CONC 32.4 g/dl (32.0-36.5); MEAN CORPUSCULAR VOLUME 100.3 fl (80.0-96.0); PLATELET COUNT, AUTOMATED 168 10^3/uL (150-450); RED BLOOD COUNT 2.89 10^6/uL (4.00-5.40); WHITE BLOOD COUNT 5.9 10^3/uL (4.0-10.0)
[2022-11-03] MEDS: LEVOTHYROXINE 75MCG TABLET (0.075MG) PO SCH (06:02)
[2022-11-03 06:10] LABS: CALCIUM LEVEL 8.5 MG/DL (8.3-10.6); CREATININE FOR GFR 7.82 MG/DL (0.55-1.30); GLOMERULAR FILTRATION RATE 5.4 (>39); POTASSIUM SERUM 4.4 MMOL/L (3.5-5.1)
[2022-11-03 07:56] VITALS: BP 92/50
[2022-11-03] MEDS ORDERED: PEPT262C2 PO (10:40)
== END 2022-11-03 12:00 | disposition home or self-care (01) | DRG 391 ==
LOC: M ED 15:32 → M ED INP 23:01 → M PCU 11-01 02:13
PROVIDERS: ADMIT Internal Medicine; ATTEND Internal Medicine
PROC: 5A1D70Z Performance of Urinary Filtration, Intermittent, Less than 6 Hours Per Day (ICD-10-PCS; principal; 2022-11-01)
DX: A08.39 Other viral enteritis (principal); N18.6 End stage renal disease; C90.00 Multiple myeloma not having achieved remission; K50.90 Crohn's disease, unspecified, without complications; I50.32 Chronic diastolic (congestive) heart failure; I13.2 Hypertensive heart and chronic kidney disease with heart failure and with stage 5 chronic kidney disease, or end stage renal disease; E87.20 Acidosis, unspecified; E03.9 Hypothyroidism, unspecified; D53.9 Nutritional anemia, unspecified; I95.9 Hypotension, unspecified; J43.9 Emphysema, unspecified; E83.42 Hypomagnesemia; E86.1 Hypovolemia; I73.9 Peripheral vascular disease, unspecified; Z93.2 Ileostomy status; Z99.2 Dependence on renal dialysis; Z90.49 Acquired absence of other specified parts of digestive tract; Z79.01 Long term (current) use of anticoagulants; Z79.890 Hormone replacement therapy; Z79.899 Other long term (current) drug therapy; Z20.822 Contact with and (suspected) exposure to COVID-19; Z86.73 Personal history of transient ischemic attack (TIA), and cerebral infarction without residual deficits; Z88.1 Allergy status to other antibiotic agents; Z87.891 Personal history of nicotine dependence; D63.8 Anemia in other chronic diseases classified elsewhere; R53.1 Weakness

== ENCOUNTER 2023-01-29 22:05 | Emergency (ER) | payer MEDICARE, OTHER ==
[~2023-01-29 22:05] MED LIST changes: +OMEG10002 PO; +PEPT262C2 PO; +WARF-20 PO
[2023-01-29 22:31] VITALS: BP 107/55
[2023-01-29 23:06] LABS: BASO % 0.1 % (0.0-1.0); EOS % 0.1 % (0.0-3.0); HEMATOCRIT 32.5 % (36.0-47.0); HEMOGLOBIN 10.6 g/dl (12.0-15.5); LYMPH # 1.8 10^3/uL (1.5-5.0); LYMPH % 18.6 % (24.0-44.0); MEAN CORPUSCULAR HEMOGLOBIN 33.3 pg (27.0-33.0); MEAN CORPUSCULAR HGB CONC 32.6 g/dl (32.0-36.5); MEAN CORPUSCULAR VOLUME 102.2 fl (80.0-96.0); MONO # 0.7 10^3/uL (0.0-0.8); MONO % 6.8 % (2.0-8.0); NEUTROPHILS # 7.2 10^3/uL (1.5-8.5); NEUTROPHILS % 74.2 % (36.0-66.0); PLATELET COUNT, AUTOMATED 168 10^3/uL (150-450); RED BLOOD COUNT 3.18 10^6/uL (4.00-5.40); WHITE BLOOD COUNT 9.7 10^3/uL (4.0-10.0)
[2023-01-29 23:28] LABS: LIPASE 68 U/L (12-53)
[2023-01-29] MEDS ORDERED: NS 1,000 ML IV ONE (23:30)
[2023-01-29 23:39] LABS: ALBUMIN 3.4 G/DL (3.2-5.2); ALKALINE PHOSPHATASE 96 U/L (46-116); ALT/SGPT 18 U/L (7.0-40); AST/SGOT 16 U/L (<34); BILIRUBIN,DIRECT 0.4 MG/DL (<0.4); BILIRUBIN,TOTAL 1.2 MG/DL (0.3-1.2); BLOOD UREA NITROGEN 31 MG/DL (9-23); CALCIUM LEVEL 9.1 MG/DL (8.3-10.6); CARBON DIOXIDE LEVEL 33 MMOL/L (20-31); CHLORIDE LEVEL 101 MMOL/L (98-107); CK-MB VALUE MASS < 1.0 NG/ML (<3.6); CPK CREATINE PHOSPHOKINASE 40 U/L (34-145); CREATININE FOR GFR 3.91 MG/DL (0.55-1.30); GLOMERULAR FILTRATION RATE 11.9 (>39); GLUCOSE, FASTING 88 MG/DL (74-106); POTASSIUM SERUM 3.7 MMOL/L (3.5-5.1); SODIUM LEVEL 141 MMOL/L (136-145); TOTAL PROTEIN 5.8 G/DL (5.7-8.2)
== END 2023-01-30 02:10 | disposition home or self-care (01) ==
LOC: EDBD 22:05 → M ED 22:05
DX: E86.0 Dehydration (principal); E78.5 Hyperlipidemia, unspecified; E03.9 Hypothyroidism, unspecified; K50.90 Crohn's disease, unspecified, without complications; N18.6 End stage renal disease; C90.00 Multiple myeloma not having achieved remission; Z88.1 Allergy status to other antibiotic agents; Z79.899 Other long term (current) drug therapy; Z79.51 Long term (current) use of inhaled steroids

== ENCOUNTER 2023-03-26 13:01 | Emergency (ER) | payer MEDICARE, OTHER ==
[~2023-03-26] VITALS: Ht 162.6 cm; Wt 46.2 kg
[2023-03-26] MEDS ORDERED: RENV2TAB (13:30)
[2023-03-26] MEDS ORDERED: LIDOCAINE 4% CREAM 5GM (LMX4) TOP ONE (14:20)
[2023-03-26 16:36] VITALS: BP 160/80
== END 2023-03-26 16:38 | disposition home or self-care (01) ==
LOC: M ED 13:01
DX: S80.11XA Contusion of right lower leg, initial encounter (principal); X58.XXXA Exposure to other specified factors, initial encounter; Y92.89 Other specified places as the place of occurrence of the external cause; Y93.89 Activity, other specified; Y99.8 Other external cause status; I50.20 Unspecified systolic (congestive) heart failure; E78.5 Hyperlipidemia, unspecified; R56.9 Unspecified convulsions; K50.90 Crohn's disease, unspecified, without complications; N18.6 End stage renal disease; Z86.718 Personal history of other venous thrombosis and embolism; Z88.1 Allergy status to other antibiotic agents; Z79.899 Other long term (current) drug therapy; Z79.01 Long term (current) use of anticoagulants; Z87.891 Personal history of nicotine dependence

== ENCOUNTER 2023-05-27 10:42 | Day surgery (SDC) | payer MEDICARE, OTHER ==
[~2023-05-27] VITALS: Ht 160 cm; Wt 45.3 kg
[~2023-05-27 10:42] MED LIST changes: +ACET-907 PO; +ACETYLCHOLINE OPHTH SOLN 1% 2ML (MIOCHOL-E) As Ordered ONE; +BSS IRR 500ML/OMIDRIA 4ML IRR BAG (OR ONLY) As Ordered ONE; +CEFUROXIME 1MG/0.1ML INTRACAMERAL INJ As Ordered ONE; +CYCLOPENTOLATE 1% OPHTH SOLN 2ML BTL OD SCH; +LIDOCAINE 1% SDV 5ML VIAL As Ordered ONE; +OFLOXACIN 0.3 % (OCUFLOX) OPTH SOL 5ML OD SCH; +PHENYLEPHRINE 2.5% OPHTH SOL 2ML OD SCH; +PREDOPD PO; +PROPARACAINE 0.5% OPHTH SOL 15ML OD ONE; +REST0.057 OP; +TROPICAMIDE 1% OPHTH SOLN 15ML OD SCH
[2023-05-27] MEDS ORDERED: fentaNYL 100 MCG/2 ML INJECTION As Ordered ONE (13:43)
[2023-05-27] MEDS ORDERED: MIDAZOLAM INJ 2MG/2ML VIAL As Ordered ONE (13:43)
[2023-05-27] MEDS ORDERED: TOBRADEX OPHTH OINT 3.5 GM As Ordered ONE ×2 (14:34→15:27)
[2023-05-27] MEDS ORDERED: DUOVISC (0.50ML VISCOAT/0.85ML PROVISC) OPHTH KIT IO ONE (15:12)
[2023-05-27 15:40] VITALS: BP 119/60; TEMP 98.6; O2SAT 96
[2023-06-17] MEDS ORDERED: PREDOPD OD (08:03)
[2023-06-17] MEDS ORDERED: OFLO5DRO OD (08:03)
[2023-06-17] MEDS ORDERED: KETO0.5S4 OD (08:03)
[2023-06-17] MEDS ORDERED: PRES10CA2 PO (08:03)
== END 2023-05-27 16:04 | disposition home or self-care (01) ==
LOC: M SDC 10:42
PROVIDERS: ATTEND Ophthalmology
DX: H25.11 Age-related nuclear cataract, right eye (principal); H59.211 Accidental puncture and laceration of right eye and adnexa during an ophthalmic procedure; H43.01 Vitreous prolapse, right eye; I10 Essential (primary) hypertension; E03.9 Hypothyroidism, unspecified; K50.90 Crohn's disease, unspecified, without complications; D64.9 Anemia, unspecified; C90.01 Multiple myeloma in remission; Z86.718 Personal history of other venous thrombosis and embolism; Z88.1 Allergy status to other antibiotic agents; Z79.899 Other long term (current) drug therapy
CPT/HCPCS: 36415; 66982; 84132; J0697; J1097; J2250; J3010; V2632

== ENCOUNTER → 2023-06-18 | Outpatient (CLI) | payer MEDICARE, OTHER ==
[~2023-06-18] MED LIST changes: -ACETYLCHOLINE OPHTH SOLN 1% 2ML (MIOCHOL-E) As Ordered ONE; -BSS IRR 500ML/OMIDRIA 4ML IRR BAG (OR ONLY) As Ordered ONE; -CEFUROXIME 1MG/0.1ML INTRACAMERAL INJ As Ordered ONE; -CYCLOPENTOLATE 1% OPHTH SOLN 2ML BTL OD SCH; +KETO0.5S4 OD; -LIDOCAINE 1% SDV 5ML VIAL As Ordered ONE; +OFLO5DRO OD; -OFLOXACIN 0.3 % (OCUFLOX) OPTH SOL 5ML OD SCH; -PHENYLEPHRINE 2.5% OPHTH SOL 2ML OD SCH; +PREDOPD OD; +PRES10CA2 PO; -PROPARACAINE 0.5% OPHTH SOL 15ML OD ONE; -TROPICAMIDE 1% OPHTH SOLN 15ML OD SCH
== END ==
LOC: M RAD 09:09
PROVIDERS: ATTEND Internal Medicine Medical Oncology
DX: C90.00 Multiple myeloma not having achieved remission (principal)

== ENCOUNTER → 2023-06-19 | Outpatient (CLI) | payer MEDICARE, OTHER | LOC: M SOG 09:02 | PROVIDERS: ATTEND Orthopaedic Surgery | DX: M54.50 Low back pain, unspecified (principal) ==

== ENCOUNTER → 2023-07-01 | Outpatient (CLI) | payer MEDICARE, OTHER | LOC: M SOG 08:17 | PROVIDERS: ATTEND Physician Assistant | DX: M25.531 Pain in right wrist (principal); M25.532 Pain in left wrist ==

== ENCOUNTER 2023-08-22 11:47 | Emergency (ER) | payer MEDICARE, OTHER ==
[~2023-08-22] VITALS: Ht 162.6 cm; Wt 50.4 kg
[~2023-08-22 11:47] MED LIST changes: +OPTI0.5D5 OD; +PRESCAP PO; +REFR0.5D8 OP; -REST0.057 OP; +REST0.057 OU
[2023-08-22 11:59] VITALS: TEMP 96.8
[2023-08-22 12:18] LABS: ABG BASE EXCESS 8.5 (-2.0-2.0); ABG HCO3 29.9 MMOL/L (22.0-26.0); ABG O2 SATURATION 99.6 % (95.0-99.0); ABG PARTIAL PRESSURE CO2 30.6 mmHg (35.0-45.0); ABG PARTIAL PRESSURE O2 361.8 mmHg (75.0-100.0); ABG STANDARD HCO3 32.3 MMOL/L. (22.0-26.0); ABG TOTAL CO2 30.9 MMOL/L (23.0-31.0)
[2023-08-22] MEDS ORDERED: methylPREDNISolone 125MG 2ML VIAL IV ONE (12:20)
[2023-08-22 12:22] LABS: ABG pH (ARTERIAL) 7.608 UNITS (7.350-7.450)
[2023-08-22] MEDS ORDERED: METOPROLOL 5 MG/5 ML VIAL IV STA (12:24)
[2023-08-22 12:28] LABS: BASO % 0.2 % (0.0-1.0); EOS % 0.5 % (0.0-3.0); HEMATOCRIT 30.1 % (36.0-47.0); HEMOGLOBIN 10.2 g/dl (12.0-15.5); LYMPH # 3.4 10^3/uL (1.5-5.0); LYMPH % 39.4 % (24.0-44.0); MEAN CORPUSCULAR HGB CONC 33.9 g/dl (32.0-36.5); MEAN CORPUSCULAR VOLUME 100.3 fl (80.0-96.0); MONO # 0.8 10^3/uL (0.0-0.8); MONO % 8.6 % (2.0-8.0); NEUTROPHILS # 4.4 10^3/uL (1.5-8.5); NEUTROPHILS % 50.8 % (36.0-66.0); PLATELET COUNT, AUTOMATED 155 10^3/uL (150-450); WHITE BLOOD COUNT 8.7 10^3/uL (4.0-10.0)
[2023-08-22 12:52] LABS: INR 2.73; PROTHROMBIN TIME 28.3 SECONDS (12.5-14.5)
[2023-08-22 12:53] LABS: PARTIAL THROMBOPLASTIN TIME 60.2 SECONDS (24.8-34.2)
[2023-08-22 13:04] LABS: RSV AMPLIFICATION NEGATIVE (NEGATIVE)
[2023-08-22] MEDS ORDERED: ATOR1TAB21 PO (22:11)
[2023-08-22] MEDS ORDERED: RENV2TAB PO (22:11)
[2023-08-22] MEDS ORDERED: D 1010004 PO (22:11)
[2023-08-22] MEDS ORDERED: WARF4TAB51 PO (22:11)
[2023-08-22] MEDS ORDERED: HOME MED LIST COMPLETE! XX SCH (22:15)
[2023-08-23 02:45] VITALS: BP 110/52
[2023-08-23 02:46] VITALS: O2SAT 96
[2023-08-23 09:55] LABS: CPK CREATINE PHOSPHOKINASE 47 U/L (30-170); THYROID STIMULATING HORMONE 2.55 UIU/ML (0.47-5.01)
[2023-08-23 09:56] LABS: BLOOD UREA NITROGEN 11 MG/DL (7-21); CALCIUM LEVEL 9.3 MG/DL (8.8-10.2); CARBON DIOXIDE LEVEL 29 MEQ/L (22-30); CHLORIDE LEVEL 100 MEQ/L (98-107); CREATININE FOR GFR 2.9 MG/DL (0.7-1.5); GLOMERULAR FILTRATION RATE 16.8 (>39); GLUCOSE, FASTING 88 MG/DL; POTASSIUM SERUM 3.9 MEQ/L (3.6-5.0); SODIUM LEVEL 141 MEQ/L (134-153)
[2023-08-23 09:57] LABS: ALKALINE PHOSPHATASE 144 U/L (35-104); ALT/SGPT 18 U/L (1-33); AST/SGOT 20 U/L (5-40); BILIRUBIN,DIRECT < 0.2 MG/DL (0.1-0.4); BILIRUBIN,TOTAL 1.1 MG/DL (0.2-1.3); TOTAL PROTEIN 5.7 G/DL (6.3-8.2)
[2023-08-23 10:04] LABS: CPK CREATINE PHOSPHOKINASE 38 U/L (30-170)
[2023-08-29 11:48] LABS: MB/CK RELATIVE INDEX 2.55 (< OR =4)
[2023-08-29 11:49] LABS: CK-MB VALUE MASS 1.2 NG/ML (0.0-10.4)
== END 2023-08-23 03:06 | disposition short-term general hospital (02) ==
LOC: EDBD 11:47 → M ED 11:47
DX: G45.9 Transient cerebral ischemic attack, unspecified (principal); I50.9 Heart failure, unspecified; Z86.73 Personal history of transient ischemic attack (TIA), and cerebral infarction without residual deficits; N18.6 End stage renal disease; Z99.2 Dependence on renal dialysis; Z85.79 Personal history of other malignant neoplasms of lymphoid, hematopoietic and related tissues; J32.0 Chronic maxillary sinusitis; Z79.01 Long term (current) use of anticoagulants; Z79.899 Other long term (current) drug therapy; Z88.1 Allergy status to other antibiotic agents
CPT/HCPCS: 70450; 70544; 70547; 70551; 71045; 80047; 80048; 80076; 80143; 81001; 82077; 82140; 82375; 82550; 82553; 82803; 83605; 84443; 84484; 85025; 85610; 85730; 87040; 87631; 93005; 93041; 94760; 96374; 99285; J2930

== ENCOUNTER 2023-09-21 18:58 | Inpatient (IN) | payer MEDICARE, OTHER ==
[~2023-09-21] VITALS: Ht 165.1 cm; Wt 46.7 kg
[~2023-09-21 18:58] MED LIST changes: +ATOR1TAB21 PO; +D 1010004 PO; +OCUVTAB4 PO; +REFR0.5D8 OU
[2023-09-21] MEDS ORDERED: NS 1,000 ML IV SCH (19:20)
[2023-09-21 19:50] LABS: BASO % 0.1 % (0.0-1.0); EOS % 0.1 % (0.0-3.0); HEMOGLOBIN 10.3 g/dl (12.0-15.5); LYMPH # 0.8 10^3/uL (1.5-5.0); LYMPH % 3.9 % (24.0-44.0); MEAN CORPUSCULAR HEMOGLOBIN 34.8 pg (27.0-33.0); MEAN CORPUSCULAR HGB CONC 33.2 g/dl (32.0-36.5); MEAN CORPUSCULAR VOLUME 104.7 fl (80.0-96.0); MONO # 0.9 10^3/uL (0.0-0.8); MONO % 4.2 % (2.0-8.0); NEUTROPHILS # 18.6 10^3/uL (1.5-8.5); NEUTROPHILS % 91.4 % (36.0-66.0); PLATELET COUNT, AUTOMATED 198 10^3/uL (150-450); RED BLOOD COUNT 2.96 10^6/uL (4.00-5.40); WHITE BLOOD COUNT 20.4 10^3/uL (4.0-10.0)
[2023-09-21 20:10] LABS: CK-MB VALUE MASS < 1.0 NG/ML (<3.6)
[2023-09-21 20:12] LABS: ALBUMIN 3.3 G/DL (3.2-5.2); ALKALINE PHOSPHATASE 120 U/L (46-116); ALT/SGPT 22 U/L (7.0-40); AST/SGOT 23 U/L (<34); BILIRUBIN,DIRECT 0.3 MG/DL (<0.4); BILIRUBIN,TOTAL 1.2 MG/DL (0.3-1.2); BLOOD UREA NITROGEN 13 MG/DL (9-23); CALCIUM LEVEL 9.6 MG/DL (8.3-10.6); CARBON DIOXIDE LEVEL 30 MMOL/L (20-31); CHLORIDE LEVEL 101 MMOL/L (98-107); CREATININE FOR GFR 3.69 MG/DL (0.55-1.30); GLOMERULAR FILTRATION RATE 12.7 (>39); GLUCOSE, FASTING 165 MG/DL (74-106); POTASSIUM SERUM 3.8 MMOL/L (3.5-5.1); SODIUM LEVEL 140 MMOL/L (136-145)
[2023-09-21 20:13] LABS: THYROXINE (T4) 12.1 UG/DL (4.5-10.9)
[2023-09-21 20:14] LABS: CPK CREATINE PHOSPHOKINASE 41 U/L (34-145); MB/CK RELATIVE INDEX 2.43 (< OR =4); THYROID STIMULATING HORMONE 0.855 uIU/ML (0.55-4.78)
[2023-09-21] MEDS ORDERED: NS 1,350 ML in IV 1 EA IV ONE (21:10)
[2023-09-21] MEDS ORDERED: cefTRIAXone SOD 2 GM in D5W MINI-BAG PLUS 50 ML IV ONE (21:45)
[2023-09-22] VITALS (13 sets, daily range): BP systolic 82–124; BP diastolic 38–60; TEMP 97.6–99; O2SAT 97–100
[2023-09-22] MEDS ORDERED: HOME MED LIST COMPLETE! XX SCH (00:25)
[2023-09-22] MEDS ORDERED: ONDANSETRON 4MG 2ML VIAL IV PRN (01:10)
[2023-09-22] MEDS ORDERED: ACETAMINOPHEN TAB 650MG DOSE (2X325MG) PO PRN (01:10)
[2023-09-22 01:32] LABS: CK-MB VALUE MASS < 1.0 NG/ML (<3.6)
[2023-09-22 01:36] LABS: CPK CREATINE PHOSPHOKINASE 42 U/L (34-145); MB/CK RELATIVE INDEX 2.38 (< OR =4)
[2023-09-22] MEDS: LEVOTHYROXINE 75MCG TABLET (0.075MG) PO SCH (05:10)
[2023-09-22] MEDS ORDERED: NS 500 ML IV ONE ×2 (05:15→15:40)
[2023-09-22] MEDS ORDERED: MIDODRINE 5 MG TAB PO ONE ×2 (06:00→12:00)
[2023-09-22 06:36] LABS: INR 3.56; PROTHROMBIN TIME 34.2 SECONDS (12.5-14.5)
[2023-09-22 06:44] LABS: CALCIUM LEVEL 7.9 MG/DL (8.3-10.6); CREATININE FOR GFR 4.19 MG/DL (0.55-1.30); POTASSIUM SERUM 3.7 MMOL/L (3.5-5.1)
[2023-09-22] MEDS: ATORVASTATIN 10 MG TAB PO SCH (08:16)
[2023-09-22] MEDS: (RENVELA) SEVELAMER **CARBONate** 800 MG TAB PO SCH ×3 (08:16→18:11)
[2023-09-22 11:14] LABS: BASO % 0.1 % (0.0-1.0); EOS # 0.1 10^3/uL (0.0-0.5); EOS % 0.7 % (0.0-3.0); HEMATOCRIT 27.1 % (36.0-47.0); HEMOGLOBIN 8.8 g/dl (12.0-15.5); LYMPH # 1.9 10^3/uL (1.5-5.0); LYMPH % 19.4 % (24.0-44.0); MEAN CORPUSCULAR HEMOGLOBIN 34.5 pg (27.0-33.0); MEAN CORPUSCULAR HGB CONC 32.5 g/dl (32.0-36.5); MEAN CORPUSCULAR VOLUME 106.3 fl (80.0-96.0); MONO # 0.5 10^3/uL (0.0-0.8); MONO % 5.4 % (2.0-8.0); NEUTROPHILS # 7.3 10^3/uL (1.5-8.5); NEUTROPHILS % 74.2 % (36.0-66.0); PLATELET COUNT, AUTOMATED 148 10^3/uL (150-450); RED BLOOD COUNT 2.55 10^6/uL (4.00-5.40); WHITE BLOOD COUNT 9.8 10^3/uL (4.0-10.0)
[2023-09-22 11:38] LABS: CALCIUM LEVEL 8.2 MG/DL (8.3-10.6); CREATININE FOR GFR 4.58 MG/DL (0.55-1.30); GLOMERULAR FILTRATION RATE 9.9 (>39); POTASSIUM SERUM 3.5 MMOL/L (3.5-5.1)
[2023-09-22 11:50] LABS: PROCALCITONIN 0.73 ng/ml
[2023-09-22] MEDS: MIDODRINE 5 MG TAB PO SCH (16:24)
[2023-09-22 16:59] LABS: C REACTIVE PROTEIN QUANTITATIV 1.1 MG/DL (<1.0)
[2023-09-22 17:07] LABS: PROCALCITONIN 0.81 ng/ml
[2023-09-22] MEDS ORDERED: (RENVELA) SEVELAMER **CARBONate** 800 MG TAB PO PRN (17:25)
[2023-09-22 18:06] LABS: PROTHROMBIN TIME 37.5 SECONDS (12.5-14.5)
[2023-09-22] MEDS: LINEZOLID 600 MG in IV 1 EA IV SCH (20:53)
[2023-09-22] MEDS: cefTRIAXone SOD 1 GM in D5W MINI-BAG PLUS 50 ML IV SCH (23:21)
[2023-09-23] MEDS ORDERED: COSYNTROPIN 0.25 MG/ML 1ML VIAL IV ONE (05:00)
[2023-09-23 05:48] VITALS: BP 103/42; TEMP 98.6; O2SAT 95
[2023-09-23] MEDS: (RENVELA) SEVELAMER **CARBONate** 800 MG TAB PO SCH ×3 (05:50→17:15)
[2023-09-23] MEDS: LEVOTHYROXINE 75MCG TABLET (0.075MG) PO SCH (05:50)
[2023-09-23] MEDS: ATORVASTATIN 10 MG TAB PO SCH (05:50)
[2023-09-23 06:20] LABS: EOS # 0.1 10^3/uL (0.0-0.5); EOS % 0.5 % (0.0-3.0); HEMATOCRIT 26.8 % (36.0-47.0); HEMOGLOBIN 8.8 g/dl (12.0-15.5); LYMPH # 2.7 10^3/uL (1.5-5.0); LYMPH % 29.1 % (24.0-44.0); MEAN CORPUSCULAR HEMOGLOBIN 34.8 pg (27.0-33.0); MEAN CORPUSCULAR HGB CONC 32.8 g/dl (32.0-36.5); MEAN CORPUSCULAR VOLUME 105.9 fl (80.0-96.0); MONO # 0.5 10^3/uL (0.0-0.8); MONO % 5.5 % (2.0-8.0); NEUTROPHILS # 5.9 10^3/uL (1.5-8.5); NEUTROPHILS % 64.6 % (36.0-66.0); PLATELET COUNT, AUTOMATED 179 10^3/uL (150-450); RED BLOOD COUNT 2.53 10^6/uL (4.00-5.40); WHITE BLOOD COUNT 9.1 10^3/uL (4.0-10.0)
[2023-09-23 06:33] LABS: INR 3.47; PROTHROMBIN TIME 33.6 SECONDS (12.5-14.5)
[2023-09-23 06:39] LABS: ERYTHROCYTE SEDIMENTATION RATE 28 mm/hr (0-30)
[2023-09-23] MEDS ORDERED: SODIUM CHLORIDE 0.9% 1000ML IV PRN (06:40)
[2023-09-23] MEDS ORDERED: HEPARIN 1,000UNITS/ML 10ML VIAL (FOR RADIOLOGY & DIALYSIS ONLY) IV PRN (06:40)
[2023-09-23] MEDS ORDERED: HEPARIN 1,000UNITS/ML 10ML VIAL (FOR RADIOLOGY & DIALYSIS ONLY) XX SCH (06:40)
[2023-09-23] MEDS ORDERED: DARBEPOETIN 100MCG/0.5ML *DIALYSIS* SYRINGE IV SCH (06:40)
[2023-09-23 06:50] LABS: C REACTIVE PROTEIN QUANTITATIV 0.7 MG/DL (<1.0)
[2023-09-23 06:57] LABS: CALCIUM LEVEL 8.6 MG/DL (8.3-10.6); CREATININE FOR GFR 5.9 MG/DL (0.55-1.30); GLOMERULAR FILTRATION RATE 7.4 (>39); POTASSIUM SERUM 4.8 MMOL/L (3.5-5.1)
[2023-09-23] MEDS: LINEZOLID 600 MG in IV 1 EA IV SCH (07:35)
[2023-09-23] MEDS: MIDODRINE 5 MG TAB PO SCH ×3 (07:35→17:14)
[2023-09-23 12:18] VITALS: BP 103/42; TEMP 97.7; O2SAT 98
[2023-09-23 14:00] VITALS: BP 132/58; TEMP 97.5; O2SAT 100
[2023-09-23] MEDS ORDERED: WARFARIN SOD 2MG TAB PO SCH (17:00)
[2023-09-23 20:39] VITALS: BP 104/38; TEMP 98.1; O2SAT 100
[2023-09-23 20:52] VITALS: BP 108/40
[2023-09-23] MEDS: cefTRIAXone SOD 1 GM in D5W MINI-BAG PLUS 50 ML IV SCH (22:48)
[2023-09-24 05:51] LABS: BASO % 0.2 % (0.0-1.0); EOS # 0.1 10^3/uL (0.0-0.5); EOS % 0.6 % (0.0-3.0); HEMATOCRIT 29.8 % (36.0-47.0); HEMOGLOBIN 9.5 g/dl (12.0-15.5); LYMPH # 2.1 10^3/uL (1.5-5.0); LYMPH % 21.6 % (24.0-44.0); MEAN CORPUSCULAR HEMOGLOBIN 33.6 pg (27.0-33.0); MEAN CORPUSCULAR HGB CONC 31.9 g/dl (32.0-36.5); MEAN CORPUSCULAR VOLUME 105.3 fl (80.0-96.0); MONO # 0.7 10^3/uL (0.0-0.8); MONO % 6.9 % (2.0-8.0); NEUTROPHILS # 6.9 10^3/uL (1.5-8.5); NEUTROPHILS % 70.3 % (36.0-66.0); PLATELET COUNT, AUTOMATED 202 10^3/uL (150-450); RED BLOOD COUNT 2.83 10^6/uL (4.00-5.40); WHITE BLOOD COUNT 9.8 10^3/uL (4.0-10.0)
[2023-09-24] MEDS: LEVOTHYROXINE 75MCG TABLET (0.075MG) PO SCH (05:51)
[2023-09-24 06:00] VITALS: BP 104/47; TEMP 97.9; O2SAT 99
[2023-09-24 06:14] LABS: INR 2.66; PROTHROMBIN TIME 27.4 SECONDS (12.5-14.5)
[2023-09-24 06:16] LABS: CALCIUM LEVEL 8.6 MG/DL (8.3-10.6); CREATININE FOR GFR 4.36 MG/DL (0.55-1.30); GLOMERULAR FILTRATION RATE 10.5 (>39); POTASSIUM SERUM 3.9 MMOL/L (3.5-5.1)
[2023-09-24] MEDS: (RENVELA) SEVELAMER **CARBONate** 800 MG TAB PO SCH ×2 (08:11→12:12)
[2023-09-24] MEDS: ATORVASTATIN 10 MG TAB PO SCH (08:12)
[2023-09-24] MEDS: MIDODRINE 5 MG TAB PO SCH ×2 (08:12→12:12)
[2023-09-24] MEDS ORDERED: MIDO5TA PO ×2 (11:38→13:25)
[2023-09-24] MEDS ORDERED: CEFD300CAP PO ×2 (11:48→13:25)
[2023-09-24] MEDS ORDERED: CEFD300C42 PO (12:53)
[2023-09-24] MEDS ORDERED: WARFARIN SOD 4MG TAB PO SCH (17:00)
== END 2023-09-24 13:23 | disposition home or self-care (01) | DRG 689 ==
LOC: M ED 18:58 → M ED INP 18:59 → OBSVTOIN 18:59 → ENRESERV 09-22 00:50 → M PCU 09-22 02:10 → M MSPAV 09-22 16:51
PROVIDERS: ADMIT Internal Medicine; ATTEND Student in an Organized Health Care Education/Training Program
PROC: 5A1D70Z Performance of Urinary Filtration, Intermittent, Less than 6 Hours Per Day (ICD-10-PCS; principal; 2023-09-23)
DX: N39.0 Urinary tract infection, site not specified (principal); N18.6 End stage renal disease; C90.00 Multiple myeloma not having achieved remission; Z94.84 Stem cells transplant status; K50.90 Crohn's disease, unspecified, without complications; Z99.2 Dependence on renal dialysis; I95.1 Orthostatic hypotension; E03.9 Hypothyroidism, unspecified; I73.9 Peripheral vascular disease, unspecified; Z93.2 Ileostomy status; Z90.49 Acquired absence of other specified parts of digestive tract; Z79.890 Hormone replacement therapy; Z79.01 Long term (current) use of anticoagulants; Z79.899 Other long term (current) drug therapy; Z88.1 Allergy status to other antibiotic agents; Z85.820 Personal history of malignant melanoma of skin; D63.1 Anemia in chronic kidney disease

== ENCOUNTER 2023-09-30 03:44 | Inpatient (IN) | payer MEDICARE, OTHER ==
[~2023-09-30] VITALS: Ht 160 cm; Wt 46.2 kg
[~2023-09-30 03:44] MED LIST changes: +CEFD300C42 PO; +MIDO5TA PO
[2023-09-30 04:19] LABS: BASO % 0.1 % (0.0-1.0); HEMOGLOBIN 9.9 g/dl (12.0-15.5); LYMPH # 1.9 10^3/uL (1.5-5.0); LYMPH % 12.4 % (24.0-44.0); MEAN CORPUSCULAR HEMOGLOBIN 34.5 pg (27.0-33.0); MEAN CORPUSCULAR VOLUME 104.5 fl (80.0-96.0); MONO # 0.9 10^3/uL (0.0-0.8); MONO % 5.5 % (2.0-8.0); NEUTROPHILS # 12.7 10^3/uL (1.5-8.5); NEUTROPHILS % 81.5 % (36.0-66.0); PLATELET COUNT, AUTOMATED 211 10^3/uL (150-450); RED BLOOD COUNT 2.87 10^6/uL (4.00-5.40); WHITE BLOOD COUNT 15.6 10^3/uL (4.0-10.0)
[2023-09-30] MEDS ORDERED: ACETAMINOPHEN *IV* 1,000 MG in IV 1 EA IV ONE (04:40)
[2023-09-30 04:44] LABS: ALBUMIN 3.7 G/DL (3.2-5.2); BILIRUBIN,DIRECT 0.5 MG/DL (<0.4); BILIRUBIN,TOTAL 1.7 MG/DL (0.3-1.2); CALCIUM LEVEL 9.3 MG/DL (8.3-10.6); CREATININE FOR GFR 4.75 MG/DL (0.55-1.30); GLOMERULAR FILTRATION RATE 9.5 (>39); POTASSIUM SERUM 4.2 MMOL/L (3.5-5.1); TOTAL PROTEIN 6.3 G/DL (5.7-8.2)
[2023-09-30] MEDS ORDERED: KETOROLAC 30 MG/ML 1ML VIAL IV ONE (05:00)
[2023-09-30] MEDS ORDERED: NS 1,000 ML IV ONE (05:25)
[2023-09-30] MEDS ORDERED: MIDODRINE 5 MG TAB PO STA (06:53)
[2023-09-30 06:57] LABS: RSV AMPLIFICATION NEGATIVE (NEGATIVE)
[2023-09-30] MEDS ORDERED: ISOVUE-370 76% 100ML VIAL As Ordered ONE (07:47)
[2023-09-30] MEDS: GASTROGRAFIN SOLUTION 30ML PO SCH ×2 (07:53→08:30)
[2023-09-30 08:12] LABS: APPEARANCE, URINE CLEAR (CLEAR); BACTERIA, URINE AUTO NEGATIVE (NEGATIVE); BILIRUBIN, URINE AUTO NEGATIVE (NEGATIVE); BLOOD, URINE BLOOD NEGATIVE (NEGATIVE); COLOR, URINE YELLOW (YELLOW); GLUCOSE, URINE (UA) AUTO 1+ mg/dL (NEGATIVE); KETONE, URINE AUTO NEGATIVE (NEGATIVE); LEUKOCYTE ESTERASE, URINE AUTO NEGATIVE (NEGATIVE); NITRITE, URINE AUTO NEGATIVE (NEGATIVE); PROTEIN, URINE AUTO 2+ mg/dL (NEGATIVE); RBC, URINE AUTO 1 /HPF (0-3); SPECIFIC GRAVITY URINE AUTO 1.013 (1.002-1.035); SQUAMOUS EPITHELIAL CELL UR AU 0 /HPF (0-6); UROBILINOGEN, URINE AUTO 0.2 mg/dL (0.0-2.0); WBC, URINE AUTO 0 /HPF (0-3)
[2023-09-30] MEDS ORDERED: GASTROGRAFIN SOLUTION 30ML PO ONE (12:50)
[2023-09-30] MEDS ORDERED: FIDAXOMICIN 200 MG TAB (DIFICID) PO ONE (13:20)
[2023-09-30] MEDS ORDERED: MED REC IN PROGRESS XX SCH (15:30)
[2023-09-30] MEDS ORDERED: CEFD300C42 PO (16:04)
[2023-09-30] MEDS ORDERED: HOME MED LIST COMPLETE! XX SCH ×2 (16:05→16:15)
[2023-09-30] MEDS ORDERED: (RENVELA) SEVELAMER **CARBONate** 800 MG TAB PO PRN (16:10)
[2023-09-30] MEDS: ATORVASTATIN 10 MG TAB PO SCH (16:47)
[2023-09-30] MEDS: NS 1,000 ML IV SCH (16:48)
[2023-09-30 17:49] LABS: INR 2.56; PROTHROMBIN TIME 26.6 SECONDS (12.5-14.5)
[2023-09-30 18:25] VITALS: BP 124/58; TEMP 97.9; O2SAT 98
[2023-09-30] MEDS: (RENVELA) SEVELAMER **CARBONate** 800 MG TAB PO SCH (18:57)
[2023-09-30 19:46] VITALS: BP 90/40; TEMP 98.8; O2SAT 97
[2023-09-30] MEDS: FIDAXOMICIN 200 MG TAB (DIFICID) PO SCH (21:47)
[2023-10-01 02:00] VITALS: BP 101/55; TEMP 99.3; O2SAT 99
[2023-10-01] MEDS: NS 1,000 ML IV SCH ×2 (02:04→11:00)
[2023-10-01 04:35] VITALS: BP 105/53; TEMP 98.1; O2SAT 97
[2023-10-01 05:36] LABS: HEMATOCRIT 27.5 % (36.0-47.0); MEAN CORPUSCULAR HGB CONC 32.7 g/dl (32.0-36.5); PLATELET COUNT, AUTOMATED 171 10^3/uL (150-450); RED BLOOD COUNT 2.57 10^6/uL (4.00-5.40)
[2023-10-01] MEDS: LEVOTHYROXINE 75MCG TABLET (0.075MG) PO SCH (05:41)
[2023-10-01] MEDS: (RENVELA) SEVELAMER **CARBONate** 800 MG TAB PO SCH ×3 (05:41→16:57)
[2023-10-01] MEDS: FIDAXOMICIN 200 MG TAB (DIFICID) PO SCH ×2 (05:41→21:22)
[2023-10-01] MEDS: ATORVASTATIN 10 MG TAB PO SCH (05:44)
[2023-10-01 05:51] LABS: INR 2.88; PROTHROMBIN TIME 29.1 SECONDS (12.5-14.5)
[2023-10-01 06:07] LABS: CALCIUM LEVEL 8.1 MG/DL (8.3-10.6); CREATININE FOR GFR 6.14 MG/DL (0.55-1.30); GLOMERULAR FILTRATION RATE 7.1 (>39); PHOSPHORUS LEVEL 3.9 MG/DL (2.4-5.1); POTASSIUM SERUM 4.8 MMOL/L (3.5-5.1)
[2023-10-01] MEDS ORDERED: HEPARIN 1,000UNITS/ML 10ML VIAL (FOR RADIOLOGY & DIALYSIS ONLY) IV PRN (08:10)
[2023-10-01] MEDS ORDERED: LIDOCAINE 1% SDV 5ML VIAL SC PRN (08:10)
[2023-10-01] MEDS ORDERED: SODIUM CHLORIDE 0.9% 1000ML IV PRN (08:10)
[2023-10-01] MEDS ORDERED: HEPARIN 1,000UNITS/ML 10ML VIAL (FOR RADIOLOGY & DIALYSIS ONLY) XX SCH (08:10)
[2023-10-01 10:00] VITALS: BP 113/93; TEMP 99.1; O2SAT 99
[2023-10-01] MEDS ORDERED: SLF 3 ML SYR IV PRN (14:55)
[2023-10-01 18:00] VITALS: BP 95/43; TEMP 99.1; O2SAT 95
[2023-10-01 21:14] VITALS: BP 96/48; TEMP 100; O2SAT 97
[2023-10-01 21:23] VITALS: TEMP 98.8
[2023-10-01] MEDS: SLF 3 ML SYR IV SCH (21:23)
[2023-10-02] VITALS (7 sets, daily range): BP systolic 96–129; BP diastolic 45–79; TEMP 97.2–98.8; O2SAT 95–98
[2023-10-02] MEDS: NS 1,000 ML IV SCH ×2 (01:32→10:44)
[2023-10-02] MEDS: SLF 3 ML SYR IV SCH ×3 (05:57→22:15)
[2023-10-02] MEDS: LEVOTHYROXINE 75MCG TABLET (0.075MG) PO SCH (05:57)
[2023-10-02 06:29] LABS: HEMATOCRIT 25.4 % (36.0-47.0); HEMOGLOBIN 8.4 g/dl (12.0-15.5); MEAN CORPUSCULAR HGB CONC 33.1 g/dl (32.0-36.5); MEAN CORPUSCULAR VOLUME 105.8 fl (80.0-96.0); PLATELET COUNT, AUTOMATED 149 10^3/uL (150-450); WHITE BLOOD COUNT 6.2 10^3/uL (4.0-10.0)
[2023-10-02 06:40] LABS: INR 2.59; PROTHROMBIN TIME 26.8 SECONDS (12.5-14.5)
[2023-10-02 06:49] LABS: ALBUMIN 2.9 G/DL (3.2-5.2); CALCIUM LEVEL 7.6 MG/DL (8.3-10.6); CREATININE FOR GFR 3.77 MG/DL (0.55-1.30); GLOMERULAR FILTRATION RATE 12.4 (>39); PHOSPHORUS LEVEL 3.1 MG/DL (2.4-5.1); POTASSIUM SERUM 3.7 MMOL/L (3.5-5.1)
[2023-10-02] MEDS: FIDAXOMICIN 200 MG TAB (DIFICID) PO SCH ×2 (09:29→20:30)
[2023-10-02] MEDS: ATORVASTATIN 10 MG TAB PO SCH (09:29)
[2023-10-02] MEDS: (RENVELA) SEVELAMER **CARBONate** 800 MG TAB PO SCH ×3 (09:29→17:23)
[2023-10-02] MEDS ORDERED: FIDA200TA PO (11:07)
[2023-10-02] MEDS ORDERED: DIFI200T PO (11:58)
[2023-10-03 05:37] VITALS: BP 107/53; TEMP 97.6; O2SAT 97
[2023-10-03] MEDS ORDERED: HEPARIN 1,000UNITS/ML 10ML VIAL (FOR RADIOLOGY & DIALYSIS ONLY) XX SCH (06:00)
[2023-10-03] MEDS ORDERED: SODIUM CHLORIDE 0.9% 1000ML IV PRN (06:00)
[2023-10-03] MEDS ORDERED: HEPARIN 1,000UNITS/ML 10ML VIAL (FOR RADIOLOGY & DIALYSIS ONLY) IV PRN (06:00)
[2023-10-03] MEDS: LEVOTHYROXINE 75MCG TABLET (0.075MG) PO SCH (06:29)
[2023-10-03] MEDS: (RENVELA) SEVELAMER **CARBONate** 800 MG TAB PO SCH (06:29)
[2023-10-03] MEDS: ATORVASTATIN 10 MG TAB PO SCH (06:29)
[2023-10-03] MEDS: FIDAXOMICIN 200 MG TAB (DIFICID) PO SCH (06:29)
[2023-10-03] MEDS: SLF 3 ML SYR IV SCH (06:30)
[2023-10-03 07:25] LABS: HEMATOCRIT 26.4 % (36.0-47.0); HEMOGLOBIN 8.5 g/dl (12.0-15.5); MEAN CORPUSCULAR HEMOGLOBIN 34.6 pg (27.0-33.0); MEAN CORPUSCULAR HGB CONC 32.2 g/dl (32.0-36.5); MEAN CORPUSCULAR VOLUME 107.3 fl (80.0-96.0); PLATELET COUNT, AUTOMATED 174 10^3/uL (150-450); RED BLOOD COUNT 2.46 10^6/uL (4.00-5.40)
[2023-10-03 07:37] LABS: INR 1.69; PROTHROMBIN TIME 19.3 SECONDS (12.5-14.5)
[2023-10-03 07:46] LABS: ALBUMIN 3.1 G/DL (3.2-5.2); CALCIUM LEVEL 8.3 MG/DL (8.3-10.6); CREATININE FOR GFR 5.42 MG/DL (0.55-1.30); GLOMERULAR FILTRATION RATE 8.2 (>39); PHOSPHORUS LEVEL 2.9 MG/DL (2.4-5.1); POTASSIUM SERUM 3.9 MMOL/L (3.5-5.1)
== END 2023-10-03 12:50 | disposition home or self-care (01) | DRG 371 ==
LOC: EDBD 03:44 → M ED 03:44 → M ED INP 16:09 → ENRESERV 17:33 → M MSPAV 18:42
PROVIDERS: ADMIT Family Medicine; ATTEND Family Medicine
PROC: 5A1D70Z Performance of Urinary Filtration, Intermittent, Less than 6 Hours Per Day (ICD-10-PCS; principal; 2023-10-01)
DX: A04.72 Enterocolitis due to Clostridium difficile, not specified as recurrent (principal); N18.6 End stage renal disease; C90.00 Multiple myeloma not having achieved remission; K50.90 Crohn's disease, unspecified, without complications; K57.12 Diverticulitis of small intestine without perforation or abscess without bleeding; Z99.2 Dependence on renal dialysis; G62.9 Polyneuropathy, unspecified; E03.9 Hypothyroidism, unspecified; D63.1 Anemia in chronic kidney disease; I95.9 Hypotension, unspecified; D63.0 Anemia in neoplastic disease; I73.9 Peripheral vascular disease, unspecified; Z85.820 Personal history of malignant melanoma of skin; Z90.49 Acquired absence of other specified parts of digestive tract; Z93.2 Ileostomy status; Z88.0 Allergy status to penicillin; Z79.01 Long term (current) use of anticoagulants; Z79.899 Other long term (current) drug therapy; Z79.890 Hormone replacement therapy; Z86.73 Personal history of transient ischemic attack (TIA), and cerebral infarction without residual deficits; Z79.69 Long term (current) use of other immunomodulators and immunosuppressants

== ENCOUNTER → 2023-11-07 | Outpatient (CLI) | payer MEDICARE, OTHER ==
[~2023-11-07] MED LIST changes: +CEFD1CAP9 PO; -CEFD300C42 PO; +DIFI200T PO; +FIDA200TA PO; +OPTI0.5D2 OD; -OPTI0.5D5 OD
== END ==
LOC: M PLAIMG 13:09
PROVIDERS: ATTEND Nurse Practitioner Family
DX: S09.90XA Unspecified injury of head, initial encounter (principal); W18.30XA Fall on same level, unspecified, initial encounter; Y92.009 Unspecified place in unspecified non-institutional (private) residence as the place of occurrence of the external cause

== ENCOUNTER → 2023-11-25 | Outpatient (CLI) | payer MEDICARE, OTHER | LOC: M ONCM 08:05 | PROVIDERS: ATTEND Dietitian, Registered | DX: Z71.3 Dietary counseling and surveillance (principal); C90.00 Multiple myeloma not having achieved remission; K50.90 Crohn's disease, unspecified, without complications; N18.6 End stage renal disease; Z92.21 Personal history of antineoplastic chemotherapy; Z68.1 Body mass index [BMI] 19.9 or less, adult ==

== ENCOUNTER 2024-01-20 10:22 | Inpatient (IN) | payer MEDICARE, OTHER ==
[~2024-01-20] VITALS: Ht 160 cm; Wt 42.0 kg
[2024-01-20 11:56] LABS: RSV AMPLIFICATION NEGATIVE (NEGATIVE)
[2024-01-20] MEDS ORDERED: REST0.057 OU (13:39)
[2024-01-20] MEDS ORDERED: HOME MED LIST COMPLETE! XX SCH (13:40)
[2024-01-20 13:41] LABS: BASO % 0.1 % (0.0-1.0); EOS # 0.1 10^3/uL (0.0-0.5); EOS % 0.3 % (0.0-3.0); HEMATOCRIT 31.1 % (36.0-47.0); HEMOGLOBIN 10.1 g/dl (12.0-15.5); LYMPH # 1.9 10^3/uL (1.5-5.0); LYMPH % 12.7 % (24.0-44.0); MEAN CORPUSCULAR HEMOGLOBIN 33.1 pg (27.0-33.0); MEAN CORPUSCULAR HGB CONC 32.5 g/dl (32.0-36.5); MONO # 0.7 10^3/uL (0.0-0.8); MONO % 4.8 % (2.0-8.0); NEUTROPHILS # 12.2 10^3/uL (1.5-8.5); NEUTROPHILS % 81.6 % (36.0-66.0); PLATELET COUNT, AUTOMATED 210 10^3/uL (150-450); RED BLOOD COUNT 3.05 10^6/uL (4.00-5.40); WHITE BLOOD COUNT 14.9 10^3/uL (4.0-10.0)
[2024-01-20] MEDS: NS 500 ML IV ONE (13:58)
[2024-01-20 14:11] LABS: INR 4.05; PROTHROMBIN TIME 37.9 SECONDS (12.5-14.5)
[2024-01-20] MEDS: cefTRIAXone SOD 1 GM in D5W MINI-BAG PLUS 50 ML IV ONE (16:11)
[2024-01-20 16:47] LABS: CK-MB VALUE MASS < 1.0 NG/ML (<3.6)
[2024-01-20 16:49] LABS: CPK CREATINE PHOSPHOKINASE 50 U/L (34-145)
[2024-01-20 16:50] LABS: THYROID STIMULATING HORMONE 0.207 uIU/ML (0.55-4.78); THYROXINE (T4) 13.6 UG/DL (4.5-10.9)
[2024-01-20 16:59] LABS: ALBUMIN 2.8 G/DL (3.2-5.2); ALKALINE PHOSPHATASE 82 U/L (46-116); ALT/SGPT 11 U/L (7.0-40); AST/SGOT 11 U/L (<34); BILIRUBIN,DIRECT 0.3 MG/DL (<0.4); BLOOD UREA NITROGEN 26 MG/DL (9-23); CARBON DIOXIDE LEVEL 31 MMOL/L (20-31); CHLORIDE LEVEL 103 MMOL/L (98-107); CREATININE FOR GFR 6.05 MG/DL (0.55-1.30); GLOMERULAR FILTRATION RATE 7.2 (>39); GLUCOSE, FASTING 93 MG/DL (74-106); POTASSIUM SERUM 3.7 MMOL/L (3.5-5.1); SODIUM LEVEL 139 MMOL/L (136-145); TOTAL PROTEIN 5.4 G/DL (5.7-8.2)
[2024-01-20] MEDS: DOXYCYCLINE HYCLATE 100 MG in D5W MINI-BAG PLUS 100 ML IV ONE (16:59)
[2024-01-20 17:27] LABS: BILIRUBIN,TOTAL 0.8 MG/DL (0.3-1.2)
[2024-01-20] MEDS ORDERED: ARTIFICIAL TEARS DROPS 15ML BTL (VISINE DRY RELIEF) OU PRN (21:45)
[2024-01-20] MEDS ORDERED: ACETAMINOPHEN TAB 650MG DOSE (2X325MG) PO PRN (21:45)
[2024-01-20] MEDS: ATORVASTATIN 10 MG TAB PO SCH (22:25)
[2024-01-20] MEDS: guaiFENesin ER TABLET 600 MG TAB PO SCH (22:25)
[2024-01-21 00:27] LABS: FREE T4 1.52 NG/DL (0.89-1.76)
[2024-01-21 04:55] VITALS: BP 132/67; TEMP 97; O2SAT 97
[2024-01-21] MEDS: LEVOTHYROXINE 75MCG TABLET (0.075MG) PO SCH (06:12)
[2024-01-21 06:39] LABS: BASO % 0.1 % (0.0-1.0); EOS # 0.1 10^3/uL (0.0-0.5); EOS % 0.9 % (0.0-3.0); HEMATOCRIT 31.3 % (36.0-47.0); HEMOGLOBIN 10.1 g/dl (12.0-15.5); LYMPH # 1.4 10^3/uL (1.5-5.0); LYMPH % 13.7 % (24.0-44.0); MEAN CORPUSCULAR HEMOGLOBIN 33.3 pg (27.0-33.0); MEAN CORPUSCULAR HGB CONC 32.3 g/dl (32.0-36.5); MEAN CORPUSCULAR VOLUME 103.3 fl (80.0-96.0); MONO # 0.5 10^3/uL (0.0-0.8); MONO % 5.2 % (2.0-8.0); NEUTROPHILS # 8.1 10^3/uL (1.5-8.5); NEUTROPHILS % 79.3 % (36.0-66.0); PLATELET COUNT, AUTOMATED 191 10^3/uL (150-450); RED BLOOD COUNT 3.03 10^6/uL (4.00-5.40); WHITE BLOOD COUNT 10.2 10^3/uL (4.0-10.0)
[2024-01-21 06:52] LABS: INR 4.94; PROTHROMBIN TIME 44.1 SECONDS (12.5-14.5)
[2024-01-21 07:19] LABS: ALBUMIN 2.8 G/DL (3.2-5.2); CALCIUM LEVEL 8.4 MG/DL (8.3-10.6); CREATININE FOR GFR 7.18 MG/DL (0.55-1.30); GLOMERULAR FILTRATION RATE 5.9 (>39); MAGNESIUM LEVEL 1.8 MG/DL (1.8-2.4); PHOSPHORUS LEVEL 3.9 MG/DL (2.4-5.1); POTASSIUM SERUM 4.5 MMOL/L (3.5-5.1)
[2024-01-21 08:13] VITALS: BP 131/60; TEMP 98.5; O2SAT 99
[2024-01-21] MEDS: (RENVELA) SEVELAMER **CARBONate** 800 MG TAB PO SCH (08:16)
[2024-01-21] MEDS: DOXYCYCLINE HYCLATE 100MG TABLET PO SCH (08:16)
[2024-01-21] MEDS: VANCOMYCIN 125MG CAPSULE PO SCH (09:00)
[2024-01-21] MEDS ORDERED: HEPARIN 1,000UNITS/ML 10ML VIAL (FOR RADIOLOGY & DIALYSIS ONLY) XX SCH (09:40)
[2024-01-21] MEDS ORDERED: SODIUM CHLORIDE 0.9% 1000ML IV PRN (09:40)
[2024-01-21] MEDS ORDERED: HEPARIN 1,000UNITS/ML 10ML VIAL (FOR RADIOLOGY & DIALYSIS ONLY) IV PRN (09:40)
[2024-01-21 11:40] VITALS: BP 138/64; TEMP 96.8; O2SAT 97
[2024-01-21] MEDS ORDERED: WARFARIN SOD 4MG TAB PO SCH (17:00)
[2024-01-21] MEDS: cefTRIAXone SOD 2 GM in D5W MINI-BAG PLUS 50 ML IV SCH (17:48)
[2024-01-21] MEDS: CALCITRIOL 0.25 MCG CAP (S0169) PO SCH (17:49)
[2024-01-21 18:05] VITALS: BP 115/59; TEMP 98.3; O2SAT 97
[2024-01-21 19:53] VITALS: BP 87/54; TEMP 98.8; O2SAT 97
[2024-01-22 04:04] VITALS: BP 108/56; TEMP 98.5; O2SAT 98
[2024-01-22 05:52] LABS: BASO % 0.2 % (0.0-1.0); EOS # 0.1 10^3/uL (0.0-0.5); EOS % 0.8 % (0.0-3.0); HEMATOCRIT 29.9 % (36.0-47.0); HEMOGLOBIN 9.7 g/dl (12.0-15.5); LYMPH # 1.4 10^3/uL (1.5-5.0); LYMPH % 15.9 % (24.0-44.0); MEAN CORPUSCULAR HEMOGLOBIN 32.7 pg (27.0-33.0); MEAN CORPUSCULAR HGB CONC 32.4 g/dl (32.0-36.5); MEAN CORPUSCULAR VOLUME 100.7 fl (80.0-96.0); MONO # 0.5 10^3/uL (0.0-0.8); MONO % 5.3 % (2.0-8.0); NEUTROPHILS # 6.6 10^3/uL (1.5-8.5); PLATELET COUNT, AUTOMATED 194 10^3/uL (150-450); RED BLOOD COUNT 2.97 10^6/uL (4.00-5.40); WHITE BLOOD COUNT 8.6 10^3/uL (4.0-10.0)
[2024-01-22 06:04] LABS: INR 2.54; PROTHROMBIN TIME 26.4 SECONDS (12.5-14.5)
[2024-01-22 06:21] LABS: ALBUMIN 2.6 G/DL (3.2-5.2); CALCIUM LEVEL 8.7 MG/DL (8.3-10.6); CREATININE FOR GFR 4.89 MG/DL (0.55-1.30); GLOMERULAR FILTRATION RATE 9.2 (>39); MAGNESIUM LEVEL 1.6 MG/DL (1.8-2.4)
[2024-01-22 07:55] VITALS: BP 121/56; TEMP 98.2; O2SAT 95
[2024-01-22] MEDS ORDERED: DOXY100T PO (11:50)
[2024-01-22] MEDS ORDERED: CEFD1CAP9 PO ×2 (11:50→12:12)
[2024-01-22] MEDS ORDERED: WARF4TAB51 PO ×5 (11:50→12:14)
[2024-01-23] MEDS ORDERED: WARFARIN SOD 2MG TAB PO SCH (17:00)
== END 2024-01-22 13:37 | disposition home or self-care (01) | DRG 193 ==
LOC: M ED 10:22 → M ED INP 20:36 → ENRESERV 01-21 04:20 → M PCU 01-21 05:14
PROVIDERS: ADMIT Family Medicine; ATTEND Student in an Organized Health Care Education/Training Program
PROC: 5A1D70Z Performance of Urinary Filtration, Intermittent, Less than 6 Hours Per Day (ICD-10-PCS; principal; 2024-01-21)
DX: J18.9 Pneumonia, unspecified organism (principal); N18.6 End stage renal disease; C90.00 Multiple myeloma not having achieved remission; Z94.84 Stem cells transplant status; N25.81 Secondary hyperparathyroidism of renal origin; K50.90 Crohn's disease, unspecified, without complications; H90.3 Sensorineural hearing loss, bilateral; E78.5 Hyperlipidemia, unspecified; E83.39 Other disorders of phosphorus metabolism; G62.9 Polyneuropathy, unspecified; D63.0 Anemia in neoplastic disease; E03.9 Hypothyroidism, unspecified; B34.2 Coronavirus infection, unspecified; I73.9 Peripheral vascular disease, unspecified; Z96.1 Presence of intraocular lens; J06.9 Acute upper respiratory infection, unspecified; Z79.01 Long term (current) use of anticoagulants; Z99.81 Dependence on supplemental oxygen; Z93.2 Ileostomy status; Z97.4 Presence of external hearing-aid; Z87.891 Personal history of nicotine dependence; Z79.890 Hormone replacement therapy; Z86.718 Personal history of other venous thrombosis and embolism; Z99.2 Dependence on renal dialysis; Z79.899 Other long term (current) drug therapy; Z90.49 Acquired absence of other specified parts of digestive tract; Z88.1 Allergy status to other antibiotic agents; Z98.41 Cataract extraction status, right eye; Z79.69 Long term (current) use of other immunomodulators and immunosuppressants; Z85.820 Personal history of malignant melanoma of skin

== ENCOUNTER → 2024-02-03 | Outpatient (CLI) | payer MEDICARE, OTHER | LOC: M RAD 11:43 | PROVIDERS: ATTEND Nurse Practitioner | DX: M54.59 Other low back pain (principal) ==

== ENCOUNTER 2024-04-29 06:19 | Emergency (ER) | payer MEDICARE, OTHER ==
[~2024-04-29] VITALS: Ht 162.6 cm; Wt 43.2 kg
[~2024-04-29 06:19] MED LIST changes: +DOXY-440 PO; -DOXY-444 PO
[2024-04-29 06:52] LABS: BASO % 0.3 % (0.0-1.0); EOS # 0.1 10^3/uL (0.0-0.5); HEMOGLOBIN 10.7 g/dl (12.0-15.5); LYMPH # 1.8 10^3/uL (1.5-5.0); MEAN CORPUSCULAR HEMOGLOBIN 33.2 pg (27.0-33.0); MEAN CORPUSCULAR HGB CONC 32.4 g/dl (32.0-36.5); MEAN CORPUSCULAR VOLUME 102.5 fl (80.0-96.0); MONO # 0.5 10^3/uL (0.0-0.8); NEUTROPHILS # 3.9 10^3/uL (1.5-8.5); NEUTROPHILS % 62.4 % (36.0-66.0); PLATELET COUNT, AUTOMATED 220 10^3/uL (150-450); RED BLOOD COUNT 3.22 10^6/uL (4.00-5.40); WHITE BLOOD COUNT 6.3 10^3/uL (4.0-10.0)
[2024-04-29 07:26] LABS: THYROXINE (T4) 13.5 UG/DL (4.5-10.9)
[2024-04-29 07:27] LABS: THYROID STIMULATING HORMONE 0.723 uIU/ML (0.55-4.78)
[2024-04-29 07:30] LABS: ALBUMIN 3.9 G/DL (3.2-5.2); ALKALINE PHOSPHATASE 102 U/L (46-116); ALT/SGPT 29 U/L (7.0-40); AST/SGOT 30 U/L (<34); BILIRUBIN,DIRECT 0.3 MG/DL (<0.4); BILIRUBIN,TOTAL 1.6 MG/DL (0.3-1.2); BLOOD UREA NITROGEN 32 MG/DL (9-23); CALCIUM LEVEL 9.3 MG/DL (8.3-10.6); CARBON DIOXIDE LEVEL 28 MMOL/L (20-31); CHLORIDE LEVEL 103 MMOL/L (98-107); CK-MB VALUE MASS < 1.0 NG/ML (<3.6); CPK CREATINE PHOSPHOKINASE 64 U/L (34-145); CREATININE FOR GFR 5.63 MG/DL (0.55-1.30); GLOMERULAR FILTRATION RATE 7.8 (>39); GLUCOSE, FASTING 88 MG/DL (74-106); MB/CK RELATIVE INDEX 1.56 (< OR =4); POTASSIUM SERUM 4.7 MMOL/L (3.5-5.1); SODIUM LEVEL 139 MMOL/L (136-145); TOTAL PROTEIN 6.5 G/DL (5.7-8.2)
[2024-04-29 10:16] VITALS: O2SAT 98
[2024-04-29] MEDS ORDERED: ENSULIQ8 PO (11:19)
[2024-04-29] MEDS ORDERED: ATOR1TAB19 PO (11:19)
[2024-04-29] MEDS ORDERED: HOME MED LIST COMPLETE! XX SCH (11:20)
[2024-04-29] MEDS ORDERED: FIDA200TA PO (12:53)
[2024-04-29 13:00] VITALS: BP 122/60; O2SAT 96
[2024-04-29 13:14] VITALS: TEMP 98.9
== END 2024-04-29 13:24 | disposition home or self-care (01) ==
LOC: M ED 06:19
DX: A04.72 Enterocolitis due to Clostridium difficile, not specified as recurrent (principal); E03.9 Hypothyroidism, unspecified; E78.5 Hyperlipidemia, unspecified; R94.31 Abnormal electrocardiogram [ECG] [EKG]; Z87.891 Personal history of nicotine dependence; Z88.1 Allergy status to other antibiotic agents; Z79.899 Other long term (current) drug therapy

== ENCOUNTER 2024-07-02 15:59 | Emergency (ER) | payer MEDICARE, OTHER ==
[~2024-07-02] VITALS: Ht 162.6 cm; Wt 42.7 kg
[~2024-07-02 15:59] MED LIST changes: +ENSULIQ8 PO
[2024-07-02 17:16] LABS: BASO % 0.2 % (0.0-1.0); EOS % 0.6 % (0.0-3.0); HEMATOCRIT 32.4 % (36.0-47.0); HEMOGLOBIN 10.6 g/dl (12.0-15.5); LYMPH # 2.5 10^3/uL (1.5-5.0); LYMPH % 38.9 % (24.0-44.0); MEAN CORPUSCULAR HGB CONC 32.7 g/dl (32.0-36.5); MEAN CORPUSCULAR VOLUME 100.9 fl (80.0-96.0); MONO # 0.6 10^3/uL (0.0-0.8); MONO % 9.6 % (2.0-8.0); NEUTROPHILS # 3.3 10^3/uL (1.5-8.5); NEUTROPHILS % 50.5 % (36.0-66.0); PLATELET COUNT, AUTOMATED 179 10^3/uL (150-450); RED BLOOD COUNT 3.21 10^6/uL (4.00-5.40); WHITE BLOOD COUNT 6.5 10^3/uL (4.0-10.0)
[2024-07-02 17:27] LABS: INR 2.74
[2024-07-02 17:48] LABS: LIPASE 92 U/L (12-53)
[2024-07-02 17:49] LABS: CPK CREATINE PHOSPHOKINASE 55 U/L (34-145)
[2024-07-02 17:52] LABS: ALBUMIN 3.6 G/DL (3.2-5.2); ALKALINE PHOSPHATASE 84 U/L (46-116); ALT/SGPT 18 U/L (7.0-40); AST/SGOT 17 U/L (<34); BILIRUBIN,DIRECT 0.4 MG/DL (<0.4); BILIRUBIN,TOTAL 1.2 MG/DL (0.3-1.2); BLOOD UREA NITROGEN 18 MG/DL (9-23); CALCIUM LEVEL 9.7 MG/DL (8.3-10.6); CARBON DIOXIDE LEVEL 33 MMOL/L (20-31); CHLORIDE LEVEL 102 MMOL/L (98-107); CK-MB VALUE MASS < 1.0 NG/ML (<3.6); CREATININE FOR GFR 4.17 MG/DL (0.55-1.30); GLUCOSE, FASTING 84 MG/DL (74-106); MB/CK RELATIVE INDEX 1.81 (< OR =4); SODIUM LEVEL 139 MMOL/L (136-145); TOTAL PROTEIN 5.9 G/DL (5.7-8.2)
[2024-07-02 19:00] VITALS: BP 118/57
[2024-07-02 19:05] VITALS: TEMP 97.6; O2SAT 97
== END 2024-07-02 19:22 | disposition home or self-care (01) ==
LOC: M ED 15:59
DX: Z04.89 Encounter for examination and observation for other specified reasons (principal); N18.9 Chronic kidney disease, unspecified; Z88.1 Allergy status to other antibiotic agents; Z79.899 Other long term (current) drug therapy

== ENCOUNTER 2024-08-03 12:11 | Emergency (ER) | payer MEDICARE, OTHER ==
[~2024-08-03] VITALS: Ht 162.6 cm; Wt 44.5 kg
[2024-08-03 13:53] LABS: BASO % 0.1 % (0.0-1.0); EOS % 0.4 % (0.0-3.0); HEMATOCRIT 34.2 % (36.0-47.0); HEMOGLOBIN 11.1 g/dl (12.0-15.5); LYMPH # 1.7 10^3/uL (1.5-5.0); LYMPH % 19.8 % (24.0-44.0); MEAN CORPUSCULAR HGB CONC 32.5 g/dl (32.0-36.5); MEAN CORPUSCULAR VOLUME 104.9 fl (80.0-96.0); MONO # 0.2 10^3/uL (0.0-0.8); MONO % 2.8 % (2.0-8.0); NEUTROPHILS # 6.4 10^3/uL (1.5-8.5); NEUTROPHILS % 76.5 % (36.0-66.0); PLATELET COUNT, AUTOMATED 184 10^3/uL (150-450); RED BLOOD COUNT 3.26 10^6/uL (4.00-5.40); WHITE BLOOD COUNT 8.4 10^3/uL (4.0-10.0)
[2024-08-03 14:20] LABS: ALBUMIN 3.7 G/DL (3.2-5.2); BILIRUBIN,DIRECT 0.4 MG/DL (<0.4); BILIRUBIN,TOTAL 1.1 MG/DL (0.3-1.2); CREATININE FOR GFR 6.59 MG/DL (0.55-1.30); GLOMERULAR FILTRATION RATE 6.5 (>39); MAGNESIUM LEVEL 2.3 MG/DL (1.8-2.4); POTASSIUM SERUM 4.4 MMOL/L (3.5-5.1); THYROID STIMULATING HORMONE 0.927 uIU/ML (0.55-4.78); TOTAL PROTEIN 6.3 G/DL (5.7-8.2)
[2024-08-03 15:15] VITALS: O2SAT 97
[2024-08-03 15:30] VITALS: BP 133/60; TEMP 97.4
== END 2024-08-03 15:48 | disposition home or self-care (01) ==
LOC: M ED 12:11
DX: G25.3 Myoclonus (principal); T45.1X5A Adverse effect of antineoplastic and immunosuppressive drugs, initial encounter; I50.22 Chronic systolic (congestive) heart failure; J44.9 Chronic obstructive pulmonary disease, unspecified; K21.9 Gastro-esophageal reflux disease without esophagitis; E03.9 Hypothyroidism, unspecified; Z88.1 Allergy status to other antibiotic agents; Z79.01 Long term (current) use of anticoagulants; Z79.899 Other long term (current) drug therapy

== ENCOUNTER → 2024-09-14 | Outpatient (CLI) | payer MEDICARE, OTHER ==
[~2024-09-14] MED LIST changes: -MIDO2.5T PO; +MIDO2.5T3 PO
== END ==
LOC: M ONCR 08:39
PROVIDERS: ATTEND General Practice
DX: C90.00 Multiple myeloma not having achieved remission (principal); M25.511 Pain in right shoulder; M25.512 Pain in left shoulder; R53.83 Other fatigue; Z79.01 Long term (current) use of anticoagulants; Z79.620 Long term (current) use of immunosuppressive biologic; Z79.899 Other long term (current) drug therapy; Z85.828 Personal history of other malignant neoplasm of skin; Z88.1 Allergy status to other antibiotic agents; Z99.2 Dependence on renal dialysis

== ENCOUNTER → 2024-09-24 | Outpatient (CLI) | payer MEDICARE, OTHER | LOC: M SOG 08:24 | PROVIDERS: ATTEND Orthopaedic Surgery | DX: M25.571 Pain in right ankle and joints of right foot (principal) ==

== ENCOUNTER → 2024-09-28 | Outpatient (CLI) | payer MEDICARE, OTHER | LOC: M RAD 08:55 | PROVIDERS: ATTEND Internal Medicine Medical Oncology | DX: M19.90 Unspecified osteoarthritis, unspecified site (principal) ==

== ENCOUNTER → 2024-10-08 | Outpatient (CLI) | payer MEDICARE, OTHER | LOC: M SOG 07:53 | PROVIDERS: ATTEND Orthopaedic Surgery | DX: M79.671 Pain in right foot (principal) ==

== ENCOUNTER 2024-10-19 10:36 | Outpatient (RCR) | payer MEDICARE, OTHER | END 2024-11-02 | LOC: M ONCR 10:36 | PROVIDERS: ATTEND General Practice | DX: Z51.0 Encounter for antineoplastic radiation therapy (principal); C90.00 Multiple myeloma not having achieved remission ==

== ENCOUNTER 2024-11-10 08:56 | Outpatient (RCR) | payer MEDICARE, OTHER | END 2024-12-03 | LOC: M ONCR 08:56 | PROVIDERS: ATTEND General Practice | DX: Z51.0 Encounter for antineoplastic radiation therapy (principal); C90.00 Multiple myeloma not having achieved remission ==

== ENCOUNTER 2024-12-15 15:05 | Emergency (ER) | payer MEDICARE, OTHER ==
[~2024-12-15] VITALS: Ht 160 cm; Wt 43.6 kg
[2024-12-15 16:18] LABS: BASO % 0.2 % (0.0-1.0); EOS % 0.4 % (0.0-3.0); HEMATOCRIT 27.6 % (36.0-47.0); HEMOGLOBIN 9.3 g/dl (12.0-15.5); LYMPH % 10.4 % (24.0-44.0); MEAN CORPUSCULAR HEMOGLOBIN 34.4 pg (27.0-33.0); MEAN CORPUSCULAR HGB CONC 33.7 g/dl (32.0-36.5); MEAN CORPUSCULAR VOLUME 102.2 fl (80.0-96.0); MONO # 0.7 10^3/uL (0.0-0.8); MONO % 7.8 % (2.0-8.0); NEUTROPHILS # 7.6 10^3/uL (1.5-8.5); NEUTROPHILS % 80.8 % (36.0-66.0); PLATELET COUNT, AUTOMATED 167 10^3/uL (150-450); WHITE BLOOD COUNT 9.4 10^3/uL (4.0-10.0)
[2024-12-15] MEDS: BENZONATATE 100MG CAPSULE PO ONE (16:27)
[2024-12-15 16:58] LABS: CPK CREATINE PHOSPHOKINASE 59 U/L (34-145)
[2024-12-15 16:59] LABS: ALBUMIN 3.2 G/DL (3.2-5.2); ALKALINE PHOSPHATASE 62 U/L (35-104); ALT/SGPT 13 U/L (7.0-40); AST/SGOT 13 U/L (<34); BILIRUBIN,DIRECT 0.4 MG/DL (<0.4); BILIRUBIN,TOTAL 1.2 MG/DL (0.3-1.2); BLOOD UREA NITROGEN 19 MG/DL (9-23); CARBON DIOXIDE LEVEL 31 MMOL/L (20-31); CHLORIDE LEVEL 97 MMOL/L (98-107); CK-MB VALUE MASS < 1.0 NG/ML (<3.6); CREATININE FOR GFR 4.05 MG/DL (0.55-1.30); GLOMERULAR FILTRATION RATE 11.4 (>39); GLUCOSE, FASTING 101 MG/DL (74-106); MB/CK RELATIVE INDEX 1.69 (< OR =4); POTASSIUM SERUM 3.7 MMOL/L (3.5-5.1); SODIUM LEVEL 139 MMOL/L (136-145)
[2024-12-15 18:18] VITALS: BP 113/58; TEMP 99.4; O2SAT 97
== END 2024-12-15 18:22 | disposition home or self-care (01) ==
LOC: M ED 15:05
DX: R05.9 Cough, unspecified (principal); I50.22 Chronic systolic (congestive) heart failure; J44.9 Chronic obstructive pulmonary disease, unspecified; K21.9 Gastro-esophageal reflux disease without esophagitis; F41.9 Anxiety disorder, unspecified; Z88.1 Allergy status to other antibiotic agents; Z79.899 Other long term (current) drug therapy; Z79.01 Long term (current) use of anticoagulants

== ENCOUNTER 2024-12-27 16:06 | Emergency (ER) | payer MEDICARE, OTHER ==
[~2024-12-27] VITALS: Ht 160 cm; Wt 43.0 kg
[2024-12-27 19:27] LABS: BASO % 0.1 % (0.0-1.0); EOS # 0.1 10^3/uL (0.0-0.5); EOS % 0.4 % (0.0-3.0); HEMATOCRIT 31.1 % (36.0-47.0); LYMPH # 1.6 10^3/uL (1.5-5.0); LYMPH % 11.5 % (24.0-44.0); MEAN CORPUSCULAR HEMOGLOBIN 33.7 pg (27.0-33.0); MEAN CORPUSCULAR HGB CONC 32.2 g/dl (32.0-36.5); MEAN CORPUSCULAR VOLUME 104.7 fl (80.0-96.0); MONO # 0.6 10^3/uL (0.0-0.8); MONO % 4.2 % (2.0-8.0); NEUTROPHILS # 11.1 10^3/uL (1.5-8.5); NEUTROPHILS % 82.4 % (36.0-66.0); PLATELET COUNT, AUTOMATED 238 10^3/uL (150-450); RED BLOOD COUNT 2.97 10^6/uL (4.00-5.40); WHITE BLOOD COUNT 13.4 10^3/uL (4.0-10.0)
[2024-12-27 20:02] LABS: ALBUMIN 2.8 G/DL (3.2-5.2); ALKALINE PHOSPHATASE 74 U/L (35-104); ALT/SGPT 18 U/L (7.0-40); AST/SGOT 46 U/L (<34); BILIRUBIN,DIRECT 0.1 MG/DL (<0.4); BILIRUBIN,TOTAL 0.4 MG/DL (0.3-1.2); BLOOD UREA NITROGEN 28 MG/DL (9-23); CALCIUM LEVEL 9.4 MG/DL (8.3-10.6); CARBON DIOXIDE LEVEL 28 MMOL/L (20-31); CHLORIDE LEVEL 98 MMOL/L (98-107); CK-MB VALUE MASS < 1.0 NG/ML (<3.6); CPK CREATINE PHOSPHOKINASE 65 U/L (34-145); CREATININE FOR GFR 4.74 MG/DL (0.55-1.30); GLOMERULAR FILTRATION RATE 9.5 (>39); GLUCOSE, FASTING 107 MG/DL (74-106); MB/CK RELATIVE INDEX 1.53 (< OR =4); POTASSIUM SERUM 5.2 MMOL/L (3.5-5.1); SODIUM LEVEL 138 MMOL/L (136-145); TOTAL PROTEIN 6.4 G/DL (5.7-8.2)
[2024-12-27 20:05] LABS: INR 3.33; PROTHROMBIN TIME 33.6 SECONDS (12.5-14.5)
[2024-12-27] MEDS: NS 500 ML IV ONE (20:50)
[2024-12-27 21:11] LABS: CK-MB VALUE MASS < 1.0 NG/ML (<3.6); POTASSIUM SERUM 4.2 MMOL/L (3.5-5.1)
[2024-12-27 21:25] LABS: CPK CREATINE PHOSPHOKINASE 40 U/L (34-145)
[2024-12-27 22:00] VITALS: TEMP 98; O2SAT 99
[2024-12-27 22:04] VITALS: O2SAT 98
[2024-12-27 22:05] VITALS: BP 162/70
== END 2024-12-27 23:11 | disposition home or self-care (01) ==
LOC: M ED 16:06 → EDBD 16:06 → M ED 23:11
DX: R42 Dizziness and giddiness (principal); K50.90 Crohn's disease, unspecified, without complications; N18.6 End stage renal disease; Z88.1 Allergy status to other antibiotic agents; Z79.01 Long term (current) use of anticoagulants; Z79.899 Other long term (current) drug therapy

== ENCOUNTER → 2025-02-08 | Outpatient (CLI) | payer MEDICARE, OTHER | LOC: M ONCR 11:02 | PROVIDERS: ATTEND General Practice | DX: C90.00 Multiple myeloma not having achieved remission (principal); Z79.620 Long term (current) use of immunosuppressive biologic; Z92.3 Personal history of irradiation; Z88.1 Allergy status to other antibiotic agents; Z79.01 Long term (current) use of anticoagulants; Z79.890 Hormone replacement therapy; Z79.899 Other long term (current) drug therapy ==

== ENCOUNTER → 2025-06-03 | Outpatient (CLI) | payer MEDICARE, OTHER ==
[~2025-06-03] MED LIST changes: +ERGO500029; -KETO0.5S4 OD; +KETO5DRO32 OD; +LIDO1ADH93 TOP; -LIDO5DIS41 TOP; +VENTAER INH
== END ==
LOC: M CARPUL 09:32
PROVIDERS: ATTEND Internal Medicine Cardiovascular Disease
DX: I34.0 Nonrheumatic mitral (valve) insufficiency (principal); I36.1 Nonrheumatic tricuspid (valve) insufficiency

== ENCOUNTER → 2025-07-15 | Outpatient (CLI) | payer MEDICARE, OTHER ==
[~2025-07-15] MED LIST changes: +ACYC200C10 PO; -ACYC200C8 PO
== END ==
LOC: M RAD 13:16
PROVIDERS: ATTEND Family Medicine
DX: R91.8 Other nonspecific abnormal finding of lung field (principal); J98.4 Other disorders of lung

== ENCOUNTER 2025-08-03 06:09 | Emergency (ER) | payer MEDICARE, OTHER ==
[~2025-08-03] VITALS: Ht 165.1 cm; Wt 82.7 kg
[2025-08-03 08:32] LABS: BASO # 0.0 10^3/uL (0.0-0.2); BASO % 0.1 % (0.0-1.0); EOS # 0.0 10^3/uL (0.0-0.5); EOS % 0.4 % (0.0-3.0); LYMPH # 1.7 10^3/uL (1.5-5.0); LYMPH % 21.7 % (24.0-44.0); MONO # 0.5 10^3/uL (0.0-0.8); MONO % 6.7 % (2.0-8.0); NEUTROPHILS # 5.6 10^3/uL (1.5-8.5); NEUTROPHILS % 70.7 % (36.0-66.0); PLATELET COUNT, AUTOMATED 171 10^3/uL (150-450)
[2025-08-03 09:01] LABS: CALCIUM LEVEL 8.8 MG/DL (8.3-10.6); CARBON DIOXIDE LEVEL 25.0 MMOL/L (20-31); CHLORIDE LEVEL 102.0 MMOL/L (98-107); CREATININE FOR GFR 7.75 MG/DL (0.55-1.30); GLOMERULAR FILTRATION RATE 4.9 (>39); POTASSIUM SERUM 4.3 MMOL/L (3.5-5.1); SODIUM LEVEL 139.0 MMOL/L (136-145)
[2025-08-03] MEDS ORDERED: HOME MED LIST COMPLETE! XX SCH (10:25)
[2025-08-03] MEDS ORDERED: WARFARIN SOD 5MG TAB PO SCH (21:15)
[2025-08-03] MEDS ORDERED: SEVELAMER *CARBONate* 800 MG TAB PO PRN (21:15)
[2025-08-03] MEDS ORDERED: PILL CUTTER 1 EACH XX PRN (21:20)
[2025-08-03] MEDS: ATORVASTATIN 10 MG TAB PO SCH (21:41)
[2025-08-03 22:45] LABS: INR 1.76
[2025-08-04] VITALS: BP 138/63; TEMP 97.3; O2SAT 97
[2025-08-04] MEDS: WARFARIN SOD 4MG TAB PO SCH (00:22)
[2025-08-04] MEDS ORDERED: LEVOTHYROXINE 75 MCG TABLET (0.075 MG) PO SCH (06:00)
[2025-08-04] MEDS ORDERED: SEVELAMER *CARBONate* 800 MG TAB PO SCH (08:00)
[2025-08-04] MEDS ORDERED: VITAMIN D 1,000 INTERNATIONAL UNITS TABLET PO SCH (09:00)
[2025-08-04] MEDS ORDERED: WARFARIN SOD 5MG TAB PO SCH (17:00)
== END 2025-08-04 00:23 | disposition short-term general hospital (02) ==
LOC: M ED 06:09 → UNDOADMOB 06:12 → M ED INP 06:12
DX: T82.49XA Other complication of vascular dialysis catheter, initial encounter (principal); N18.9 Chronic kidney disease, unspecified; K50.90 Crohn's disease, unspecified, without complications; Z86.73 Personal history of transient ischemic attack (TIA), and cerebral infarction without residual deficits; Z87.891 Personal history of nicotine dependence; Z79.01 Long term (current) use of anticoagulants; Z79.899 Other long term (current) drug therapy

== ENCOUNTER → 2025-08-10 | Outpatient (CLI) | payer MEDICARE, OTHER | LOC: M ONCR 10:44 | PROVIDERS: ATTEND General Practice | DX: C90.00 Multiple myeloma not having achieved remission (principal); M25.511 Pain in right shoulder; M25.512 Pain in left shoulder; Z79.620 Long term (current) use of immunosuppressive biologic; Z79.899 Other long term (current) drug therapy; Z87.891 Personal history of nicotine dependence; Z88.1 Allergy status to other antibiotic agents; Z92.3 Personal history of irradiation ==

== ENCOUNTER → 2025-08-17 | Outpatient (CLI) | payer MEDICARE, OTHER ==
[~2025-08-17] VITALS: Ht 160 cm; Wt 44.0 kg
[2025-08-17 16:00] VITALS: BP 144/82; O2SAT 97
== END ==
LOC: M PAL 15:41
PROVIDERS: ATTEND Physician Assistant
DX: Z51.5 Encounter for palliative care (principal); C90.00 Multiple myeloma not having achieved remission; N18.4 Chronic kidney disease, stage 4 (severe); K50.90 Crohn's disease, unspecified, without complications; Z99.2 Dependence on renal dialysis; Z66 Do not resuscitate; Z79.02 Long term (current) use of antithrombotics/antiplatelets; Z79.899 Other long term (current) drug therapy; Z88.1 Allergy status to other antibiotic agents

== ENCOUNTER → 2025-09-14 | Outpatient (CLI) | payer MEDICARE, OTHER ==
[~2025-09-14] VITALS: Ht 160 cm; Wt 44.6 kg
[~2025-09-14] MED LIST changes: +OXYC-517 PO
[2025-09-14 11:10] VITALS: BP 142/80; O2SAT 97
== END ==
LOC: M PAL 10:51
PROVIDERS: ATTEND Physician Assistant
DX: Z51.5 Encounter for palliative care (principal); Z66 Do not resuscitate; C90.02 Multiple myeloma in relapse; N18.4 Chronic kidney disease, stage 4 (severe); Z99.2 Dependence on renal dialysis; Z79.891 Long term (current) use of opiate analgesic; Z88.5 Allergy status to narcotic agent; Z79.899 Other long term (current) drug therapy

== ENCOUNTER → 2025-10-12 | Outpatient (CLI) | payer MEDICARE, OTHER ==
[~2025-10-12] VITALS: Ht 160 cm; Wt 45.3 kg
[~2025-10-12] MED LIST changes: +MORP1SOL PO
[2025-10-12 10:03] VITALS: BP 151/94; O2SAT 98
== END ==
LOC: M PAL 09:46
PROVIDERS: ATTEND Physician Assistant
DX: Z51.5 Encounter for palliative care (principal); Z66 Do not resuscitate; C90.02 Multiple myeloma in relapse; N18.4 Chronic kidney disease, stage 4 (severe); Z99.2 Dependence on renal dialysis; Z79.891 Long term (current) use of opiate analgesic; Z88.5 Allergy status to narcotic agent; Z79.899 Other long term (current) drug therapy; Z79.02 Long term (current) use of antithrombotics/antiplatelets

== ENCOUNTER 2025-10-29 11:30 | Emergency (ER) | payer MEDICARE, OTHER ==
[~2025-10-29 11:30] MED LIST changes: +MORP1SOL5 PO
[2025-10-29 13:30] VITALS: BP 138/73; TEMP 97.2; O2SAT 96
[2025-10-29] MEDS: ACETAMINOPHEN 325 MG TAB PO ONE (13:41)
== END 2025-10-29 13:50 | disposition home or self-care (01) ==
LOC: M ED 11:30
DX: R05.9 Cough, unspecified (principal); I50.22 Chronic systolic (congestive) heart failure; E78.5 Hyperlipidemia, unspecified; K21.9 Gastro-esophageal reflux disease without esophagitis; J84.10 Pulmonary fibrosis, unspecified; C90.00 Multiple myeloma not having achieved remission; Z88.1 Allergy status to other antibiotic agents; Z79.01 Long term (current) use of anticoagulants; Z79.899 Other long term (current) drug therapy